=== PATIENT | female | born 1955 | race Caucasian/White ===

== ENCOUNTER 2020-03-16 06:03 | Emergency (ER) | payer OTHER, SELFPAY ==
[2020-03-16 06:15] VITALS: PULSE 15; RESP 16; TEMP 36.6; O2SAT 97; BMI 44.1
[2020-03-16 06:17] VITALS: PULSE 104
--- NOTE | 2020-03-16 06:17 | XR_ITS ---
EXAMINATION: XR CHEST CLINICAL INFORMATION: Chest pain COMPARISON: Chest 06/01/2013 TECHNIQUE: Frontal view of the chest was obtained. FINDINGS: The lungs are well-expanded and clear of acute process. The heart size and pulmonary vascularity is normal. No gross bony abnormality seen. XR/XR chest 1V IMPRESSION: Unremarkable chest exam.
--- NOTE | 2020-03-16 06:48 | ECG_ITS ---
Test Reason : CHEST PAIN Blood Pressure : / mmHG Vent. Rate : 103 BPM Atrial Rate : 103 BPM P-R Int : 188 ms QRS Dur : 104 ms QT Int : 354 ms P-R-T Axes : 106 -21 093 degrees QTc Int : 463 ms Sinus tachycardia with Premature ventricular complexes Moderate voltage criteria for LVH, may be normal variant Nonspecific T wave abnormality Abnormal ECG When compared with ECG of 15-JAN-2010 14:03, QRS slightly wider Referred By: Viola Sarah Electronically Signed By:ERROL ANDUJAR
[2020-03-16 06:49] LABS: MANUAL DIFF FLAG NO
[2020-03-16 06:51] LABS: Basophils Absolute Auto 0.1 X10*3/uL (0.0-0.2); Basophils Percent Auto 0.7 % (0-2); Eosinophils Absolute Auto 0.3 X10*3/uL (0.0-0.4); Eosinophils Percent Auto 3.1 % (0-4); Hematocrit 42.5 % (37-47); Hemoglobin 13.7 g/dl (12.0-16.0); Imm Gran Abs Auto 0.05 X10*3/uL (0.00-0.03); Imm Gran Pct Auto 0.5 % (0.0-0.4); Lymphocytes Absolute Auto 3.4 X10*3/uL (1.2-4.9); Lymphocytes Percent Auto 32.8 % (20-40); Mean Corpuscular HGB Conc 32.2 g/dl (31.0-35.0); Mean Corpuscular Hemoglobin 29.9 pg (27.0-33.0); Mean Corpuscular Volume 92.8 fL (80-98); Mean Platelet Volume 10.2 fL (9.4-12.3); Monocytes Absolute Auto 0.6 X10*3/uL (0.1-1.2); Monocytes Percent Auto 5.4 % (2-11); Neutrophils Absolute Auto 5.9 X10*3/uL (2.0-8.3); Neutrophils Percent Auto 57.5 % (45-73); Platelet Count 238 X10*3/uL (160-400); Red Blood Count 4.58 X10*6/uL (4.20-5.50); Red Cell Distribution Width 12.6 % (11.0-16.0); White Blood Count 10.2 X10*3/uL (4.8-10.8)
--- NOTE | 2020-03-16 06:55 | ED.SOB ---
HPI - SOB/Dyspnea General Chief Complaint: Dyspnea Stated Complaint: CHEST PAIN/SOB Time Seen by Provider: 03/16/20 06:17 History of Present Illness HPI Narrative: Patient is a 65-year-old female with a history of diabetes, hypertension, high cholesterol. Presented today with having chest pain that is constant since yesterday worse with walking. No fever no chills positive coughing history of asthma. Patient been compliant with her medications. Have not been checking her sugars. Patient feels generalized malaise weakness. Positive leg swelling but this is chronic. No nausea no vomiting no diaphoresis. The pain is mid chest. It is pressure-like. Patient's cough she claims she always had from her asthma. No recent travel. No history of exposure. Related Data Home Medications Medication Instructions Recorded Confirmed glipizide 1 tab PO BID 03/16/20 03/16/20 lisinopril-hydrochlorothiazide 1 tab PO QAM 03/16/20 03/16/20 Previous Rx's Medication Instructions Recorded prednisone 40 mg PO DAILY #10 tab 03/16/20 Allergies Allergy/AdvReac Type Severity Reaction Status Date / Time red dye [Red Dye] Allergy Severe HIVES,THROAT Verified 03/16/20 06:25 CLOSES FROM RED FOOD DYE Review of Systems Review of Systems: Constitutional: No Weight loss, No Fever, No Chills, No Night Sweats, No Fatigue, No Malaise ENT/Mouth: No Hearing loss, No Ear Pain, No Nasal Congestion, No Sinus Pain, No Hoarseness, No sore throat, No Rhinorrhea, No Swallowing Difficulty Eyes: No Eye Pain, No Swelling, No Redness, No Foreign Body, No Discharge, No Vision Changes Cardiovascular: Positive Chest Pain, positive SOB, No Dyspnea on Exertion, positive Orthopnea, positive Edema, No Palpitations Respiratory: No Cough, No Sputum, No Wheezing, No Smoke Exposure, No Dyspnea Gastrointestinal: No Nausea, No Vomiting, No Diarrhea, No Constipation, No abdominal Pain, No Hematochezia, No Melena Genitourinary: no irregular bleeding, No Dysuria, No Urinary Frequency, No Hematuria, No Urinary Incontinence, No Urgency, No Flank Pain, No Urinary Flow Changes, No Hesitancy Musculoskeletal: No joint pain, No Myalgias, No Joint Swelling Skin: No Skin Lesions, No rash Neuro: No Weakness, No Numbness, No Paresthesias, No Loss of Consciousness, No Dizziness, No Headache Psych: No Anxiety/Panic, No Depression, No SI/HI/AH/VH, No Social Issues, Heme/Lymph: No Bruising, No Bleeding,No Lymphadenopathy Endocrine: No Polyuria, No Polydipsia, No Temperature Intolerance [facility] Past Medical History Attestation statement: The following information was validated with the patient. Medical History Asthma Diabetes Hypertension Irritable bowel syndrome (IBS) Social History Social History Smoking Status: Never smoker Use of substances other than those prescribed or required for medical reasons: No Advance Directives: No Physical Exam Vital Signs: Vital Signs: Last Vital Signs Temp 98 F 03/16/20 11:49 Pulse 82 03/16/20 11:49 Resp 14 03/16/20 11:49 BP 149/83 H 03/16/20 11:49 Pulse Ox 100 03/16/20 11:49 Body Mass Index 44.1 Appearance: Alert. Oriented X3. No acute distress. Eyes: Pupils equal, round and reactive to light. ENT: Pharynx normal. Neck: Normal inspection. Neck supple. No lymph nodes noted. No crepitus CVS: Normal heart rate and rhythm. Pulses normal. Normal S1 and S2 Respiratory: Decreased breath sounds bilaterally No rales, minimal wheezing Abdomen: Soft and nontender. No rigidity. No distention. good BS x4 Skin: Skin warm and dry. Normal skin color. Normal skin turgor. Extremities: 3+ pitting edema. Neurovascular intact to all extremities. No Lacerations. No Rash Neuro: Oriented X 3. No motor deficit. No sensory deficit. Moving all extermities. No slurred speech MDM - SOB/Dyspnea Lab Data Result diagrams: 03/16/20 06:41 03/16/20 06:41 Labs: Lab Results 03/16/20 03/16/20 03/16/20 Range/Units 06:41 06:41 06:41 WBC 10.2 (4.8-10.8) X10*3/uL RBC 4.58 (4.20-5.50) X10*6/uL Hgb 13.7 (12.0-16.0) g/dl Hct 42.5 (37-47) % MCV 92.8 (80-98) fL MCH 29.9 (27.0-33.0) pg MCHC 32.2 (31.0-35.0) g/dl RDW 12.6 (11.0-16.0) % Plt Count 238 (160-400) X10*3/uL MPV 10.2 (9.4-12.3) fL Immature Gran % (Auto) 0.5 H (0.0-0.4) % Neut % (Auto) 57.5 (45-73) % Lymph % (Auto) 32.8 (20-40) % [place] % (Auto) 5.4 (2-11) % Eos % (Auto) 3.1 (0-4) % Baso % (Auto) 0.7 (0-2) % Lymph # (Auto) 3.4 (1.2-4.9) X10*3/uL [place] # (Auto) 0.6 (0.1-1.2) X10*3/uL Eos # (Auto) 0.3 (0.0-0.4) X10*3/uL Baso # (Auto) 0.1 (0.0-0.2) X10*3/uL Abs Immat Gran (auto) 0.05 H (0.00-0.03) X10*3/uL Absolute Neuts (auto) 5.9 (2.0-8.3) X10*3/uL Absolute Nucleated RBC 0.000 (0.0-0.012) X10*3/uL Nucleated RBC % (auto) 0.0 (0.0-0.2) /100WBC Sodium 134 L (135-145) mmol/L Potassium 4.2 (3.3-5.1) mmol/l Chloride 98 (96-108) mmol/L Carbon Dioxide 22 (22-29) mmol/L Anion Gap 18 (12-20) BUN 21 H (9-16) mg/dL Creatinine 0.96 (0.5-1.4) mg/dL Estim Creat Clear Calc 76.8 Estimated GFR 59 Random Glucose 294 H (60-115) mg/dL Calcium 8.9 (8.4-10.2) mg/dL Total Bilirubin 0.5 (0.0-1.0) mg/dL AST 14 (5-31) U/L ALT 17 (0-31) U/L Alkaline Phosphatase 76 (39-117) U/L Troponin I High Sens 19.7 H (<3.5-17.0) ng/L B-Natriuretic Peptide 136 H (<100) pg/mL Total Protein 6.9 (6.5-8.0) g/dL Albumin 4.0 (3.5-5.0) g/dL Urine Color Urine Appearance Urine pH (5.0-8.0) Ur Specific [place] (1.005-1.025) Urine Protein (NEG-TRACE) MG/DL Urine Glucose (UA) (NEG) MG/DL Urine Ketones (NEG) MG/DL Urine Blood (NEG) Urine Nitrite (NEG) Ur Leukocyte Esterase (NEG) Urine RBC (0) /HPF Urine WBC (0-4) /HPF Urine WBC Clumps Ur Squamous Epith Cells /LPF Urine Bacteria /LPF Urine Mucus /LPF Coronavirus (PCR) (Negative) Influenza Type A (PCR) (Negative) Influenza Type B (PCR) (Negative) RSV RNA Qual (PCR) (Negative) 03/16/20 03/16/20 03/16/20 Range/Units 07:02 08:03 10:09 WBC (4.8-10.8) X10*3/uL RBC (4.20-5.50) X10*6/uL Hgb (12.0-16.0) g/dl Hct (37-47) % MCV (80-98) fL MCH (27.0-33.0) pg MCHC (31.0-35.0) g/dl RDW (11.0-16.0) % Plt Count (160-400) X10*3/uL MPV (9.4-12.3) fL Immature Gran % (Auto) (0.0-0.4) % Neut % (Auto) (45-73) % Lymph % (Auto) (20-40) % [place] % (Auto) (2-11) % Eos % (Auto) (0-4) % Baso % (Auto) (0-2) % Lymph # (Auto) (1.2-4.9) X10*3/uL [place] # (Auto) (0.1-1.2) X10*3/uL Eos # (Auto) (0.0-0.4) X10*3/uL Baso # (Auto) (0.0-0.2) X10*3/uL Abs Immat Gran (auto) (0.00-0.03) X10*3/uL Absolute Neuts (auto) (2.0-8.3) X10*3/uL Absolute Nucleated RBC (0.0-0.012) X10*3/uL Nucleated RBC % (auto) (0.0-0.2) /100WBC Sodium (135-145) mmol/L Potassium (3.3-5.1) mmol/l Chloride (96-108) mmol/L Carbon Dioxide (22-29) mmol/L Anion Gap (12-20) BUN (9-16) mg/dL Creatinine (0.5-1.4) mg/dL Estim Creat Clear Calc Estimated GFR Random Glucose (60-115) mg/dL Calcium (8.4-10.2) mg/dL Total Bilirubin (0.0-1.0) mg/dL AST (5-31) U/L ALT (0-31) U/L Alkaline Phosphatase (39-117) U/L Troponin I High Sens 16.3 (<3.5-17.0) ng/L B-Natriuretic Peptide (<100) pg/mL Total Protein (6.5-8.0) g/dL Albumin (3.5-5.0) g/dL Urine Color YELLOW Urine Appearance CLEAR Urine pH 5.5 (5.0-8.0) Ur Specific [place] 1.020 (1.005-1.025) Urine Protein NEG (NEG-TRACE) MG/DL Urine Glucose (UA) >=1000 H (NEG) MG/DL Urine Ketones 15 (NEG) MG/DL Urine Blood NEG (NEG) Urine Nitrite POS H (NEG) Ur Leukocyte Esterase NEG (NEG) Urine RBC 0 (0) /HPF Urine WBC 10-14 H (0-4) /HPF Urine WBC Clumps NOTED Ur Squamous Epith Cells 1+ /LPF Urine Bacteria 2+ /LPF Urine Mucus 1+ /LPF Coronavirus (PCR) NEGATIVE (Negative) Influenza Type A (PCR) NEGATIVE (Negative) Influenza Type B (PCR) NEGATIVE (Negative) RSV RNA Qual (PCR) NEGATIVE (Negative) Discharge Plan Discharge Clinical Impression: Asthma with exacerbation Patient Disposition: Home, Self-Care Instructions: Asthma (ED) Prescriptions: New prednisone 20 mg tablet 40 mg PO DAILY Qty: 10 RF: 0 No Action lisinopril-hydrochlorothiazide 20-25 mg tablet 1 tab PO QAM RF: 0 glipizide 5 mg tablet 1 tab PO BID RF: 0 Referrals: Lily Menjivar MD [Primary Care Provider] - 2 days
[2020-03-16 07:19] LABS: Alanine Aminotransferase 17 U/L (0-31); Alkaline Phosphatase 76 U/L (39-117); Anion Gap 18 (12-20); Aspartate Amino Transferase 14 U/L (5-31); Bilirubin Total 0.5 mg/dL (0.0-1.0); Blood Urea Nitrogen 21 mg/dL (9-16); Calcium 8.9 mg/dL (8.4-10.2); Carbon Dioxide 22 mmol/L (22-29); Chloride 98 mmol/L (96-108); Creatinine Clr Calc Pharmacy 76.8; Estimated Glomerular Filt Rate 59; Glucose Random 294 mg/dL (60-115); Potassium 4.2 mmol/l (3.3-5.1); Sodium 134 mmol/L (135-145); Total Protein 6.9 g/dL (6.5-8.0)
[2020-03-16 07:23] LABS: B Type Natriuretic Peptide 136 pg/mL (<100); Troponin-I High Sensitivity 19.7 ng/L (<3.5-17.0)
[2020-03-16 07:59] VITALS: BP 185/93; PULSE 102; RESP 19; O2SAT 100
[2020-03-16 08:11] LABS: Glucose Urine UA >=1000 MG/DL (NEG); Leukocyte Esterase Urine NEG (NEG); Nitrite Urine POS (NEG); PH 5.5 (5.0-8.0); Urine Blood NEG (NEG); Urine Ketones 15 MG/DL (NEG); Urine Protein NEG (NEG-TRACE)
[2020-03-16 08:12] LABS: Appearance Urine CLEAR; Color Urine YELLOW
[2020-03-16 08:25] LABS: Influenza A PCR NEGATIVE (Negative); Influenza B PCR NEGATIVE (Negative); Resp Syncy Virus RNA Qual PCR NEGATIVE (Negative); SARS COV2 PCR INHOUSE NEGATIVE (Negative)
[2020-03-16 08:27] LABS: Bacteria Urine 2+ /LPF; Mucus Urine 1+ /LPF; RBC Urine 0 /HPF (0); Squamous Epithelial Cell Urine 1+ /LPF
[2020-03-16 08:28] LABS: WBC Clumps Urine NOTED
[2020-03-16 09:47] VITALS: BP 192/90; PULSE 83; RESP 16; TEMP 36.6; O2SAT 99
[2020-03-16 10:52] LABS: Troponin-I High Sensitivity 16.3 ng/L (<3.5-17.0)
[2020-03-16 11:49] VITALS: BP 149/83; PULSE 82; RESP 14; TEMP 36.6; O2SAT 100
[2020-03-16] MEDS: predniSONE 20 MG TABLET 40 MG PO (12:15)
== END 2020-03-16 12:37 | disposition home or self-care (01) ==
PROVIDERS: Student in an Organized Health Care Education/Training Program; Emergency Provider Emergency Medicine Emergency Medical Services; PCP Internal Medicine
DX: J45.901 Unspecified asthma with (acute) exacerbation (principal); I10 Essential (primary) hypertension; Z20.828 Contact with and (suspected) exposure to other viral communicable diseases; Z79.899 Other long term (current) drug therapy
CPT/HCPCS: 0241U; 36415; 71045; 80053; 81001; 83880; 84484; 85025; 87086; 87088; 87186; 93005; 99284

== ENCOUNTER 2020-08-01 12:44 | Outpatient (REF) | payer OTHER, SELFPAY ==
--- NOTE | ~2020-08-01 | XR_ITS ---
EXAMINATION: XR KNEE, RIGHT CLINICAL INFORMATION: Right knee pain. COMPARISON: None TECHNIQUE: Three views of the right knee. FINDINGS: There is no evidence of acute fracture or dislocation of the right knee. No right knee effusion is seen. Right knee joint spaces are maintained. There is a region of increased density seen about the proximal fibula which may relate to medullary infarct or possible enchondroma. No bony destruction or periosteal new bone formation is appreciated. XR/XR knee RT 3V IMPRESSION: No significant right knee abnormality appreciated.
== END 2020-08-01 12:45 | disposition home or self-care (01) ==
LOC: HO.HMGCX 12:44
PROVIDERS: PCP Internal Medicine; Visit Provider Internal Medicine
DX: M17.10 Unilateral primary osteoarthritis, unspecified knee (principal)
CPT/HCPCS: 73562

== ENCOUNTER 2020-08-25 12:00 | Outpatient (REF) | payer OTHER, SELFPAY ==
[2020-08-25 14:35] LABS: MANUAL DIFF FLAG NO
[2020-08-25 14:49] LABS: Basophils Absolute Auto 0.1 X10*3/uL (0.0-0.2); Basophils Percent Auto 0.8 % (0-2); Eosinophils Absolute Auto 0.4 X10*3/uL (0.0-0.4); Eosinophils Percent Auto 4.7 % (0-4); Hematocrit 41.5 % (37-47); Hemoglobin 13.2 g/dl (12.0-16.0); Imm Gran Abs Auto 0.01 X10*3/uL (0.00-0.03); Imm Gran Pct Auto 0.1 % (0.0-0.4); Lymphocytes Absolute Auto 2.9 X10*3/uL (1.2-4.9); Lymphocytes Percent Auto 34.5 % (20-40); Mean Corpuscular HGB Conc 31.8 g/dl (31.0-35.0); Mean Corpuscular Hemoglobin 29.1 pg (27.0-33.0); Mean Corpuscular Volume 91.4 fL (80-98); Mean Platelet Volume 10.5 fL (9.4-12.3); Monocytes Absolute Auto 0.4 X10*3/uL (0.1-1.2); Monocytes Percent Auto 4.9 % (2-11); Neutrophils Absolute Auto 4.6 X10*3/uL (2.0-8.3); Platelet Count 264 X10*3/uL (160-400); Red Blood Count 4.54 X10*6/uL (4.20-5.50); Red Cell Distribution Width 12.8 % (11.0-16.0); White Blood Count 8.3 X10*3/uL (4.8-10.8)
[2020-08-25 15:02] LABS: Alanine Aminotransferase 9 U/L (0-31); Albumin Level 3.7 g/dL (3.5-5.0); Alkaline Phosphatase 70 U/L (39-117); Anion Gap 14 (12-20); Aspartate Amino Transferase 12 U/L (5-31); Bilirubin Total 0.5 mg/dL (0.0-1.0); Blood Urea Nitrogen 22 mg/dL (9-16); Calcium 8.7 mg/dL (8.4-10.2); Carbon Dioxide 25 mmol/L (22-29); Chloride 100 mmol/L (96-108); Cholesterol 219 mg/dL; Estimated Glomerular Filt Rate 59; Glucose Fasting 295 mg/dL (60-99); HDL Cholesterol 42 mg/dL; Potassium 4.4 mmol/L (3.3-5.1); Sodium 135 mmol/L (135-145); Total Protein 6.6 g/dL (6.5-8.0); Triglycerides 439 mg/dL
[2020-08-25 15:05] LABS: Estimated Average Glucose 289 mg/dL; Hemoglobin A1c % 11.7 %
[2020-08-25 15:25] LABS: TSH reflex Free T4 1.48 uIU/mL (0.32-4.0); Vitamin D 25-OH Total 13.7 ng/mL (>30)
[2020-08-25 15:30] LABS: Creatinine Urine 102.19 mg/dL; Microalbum/Creatinine Ratio Ur 17.6 ug/mg cr
== END 2020-08-25 12:01 | disposition home or self-care (01) ==
LOC: HO.HMGCLDS 12:00
PROVIDERS: PCP Internal Medicine; Visit Provider Internal Medicine
DX: E11.65 Type 2 diabetes mellitus with hyperglycemia (principal); E66.01 Morbid (severe) obesity due to excess calories; I10 Essential (primary) hypertension
CPT/HCPCS: 36415; 80053; 80061; 82043; 82306; 83036; 84443; 85025

== ENCOUNTER → 2020-09-15 10:04 | Outpatient (BNVA) | payer OTHER, SELFPAY | PROVIDERS: PCP Internal Medicine; Visit Provider Nurse Practitioner Gerontology | DX: E11.65 Type 2 diabetes mellitus with hyperglycemia (principal); E11.49 Type 2 diabetes mellitus with other diabetic neurological complication; E78.2 Mixed hyperlipidemia; E66.09 Other obesity due to excess calories; E55.9 Vitamin D deficiency, unspecified; I10 Essential (primary) hypertension | CPT/HCPCS: 82947; 99212 ==

== ENCOUNTER → 2020-11-17 13:06 | Outpatient (BNVA) | payer OTHER, SELFPAY | PROVIDERS: PCP Internal Medicine; Visit Provider Nurse Practitioner Gerontology | DX: E11.65 Type 2 diabetes mellitus with hyperglycemia (principal); E11.40 Type 2 diabetes mellitus with diabetic neuropathy, unspecified; E11.49 Type 2 diabetes mellitus with other diabetic neurological complication; I10 Essential (primary) hypertension; E78.5 Hyperlipidemia, unspecified; E78.2 Mixed hyperlipidemia; E55.9 Vitamin D deficiency, unspecified; K58.0 Irritable bowel syndrome with diarrhea; E66.01 Morbid (severe) obesity due to excess calories; Z68.39 Body mass index [BMI] 39.0-39.9, adult; Z91.048 Other nonmedicinal substance allergy status; Z79.4 Long term (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 of insulin; Z79.899 Other long term (current) drug therapy | CPT/HCPCS: 82947; 99212 ==

== ENCOUNTER 2020-12-20 09:29 | Outpatient (REF) | payer OTHER, SELFPAY ==
[2020-12-20 11:46] LABS: Alanine Aminotransferase 12 U/L (0-31); Anion Gap 17 (12-20); Aspartate Amino Transferase 10 U/L (5-31); Blood Urea Nitrogen 35 mg/dL (9-16); Calcium 9.7 mg/dL (8.4-10.2); Carbon Dioxide 25 mmol/L (22-29); Chloride 98 mmol/L (96-108); Cholesterol 265 mg/dL; Estimated Glomerular Filt Rate 47; Glucose Fasting 233 mg/dL (60-99); HDL Cholesterol 42 mg/dL; Sodium 136 mmol/L (135-145); Triglycerides 488 mg/dL
[2020-12-20 12:09] LABS: Vitamin D 25-OH Total 35.4 ng/mL (>30)
[2020-12-20 12:22] LABS: Estimated Average Glucose 275 mg/dL; Hemoglobin A1c % 11.2 %
== END 2020-12-20 09:30 | disposition home or self-care (01) ==
LOC: HO.HMGCLDS 09:29
PROVIDERS: PCP Internal Medicine; Visit Provider Internal Medicine
DX: E11.49 Type 2 diabetes mellitus with other diabetic neurological complication (principal); E11.65 Type 2 diabetes mellitus with hyperglycemia; E66.01 Morbid (severe) obesity due to excess calories; E78.2 Mixed hyperlipidemia; I10 Essential (primary) hypertension; E55.9 Vitamin D deficiency, unspecified
CPT/HCPCS: 36415; 80048; 80061; 82306; 83036; 84450; 84460

== ENCOUNTER → 2021-03-30 13:04 | Outpatient (BNVA) | payer OTHER, SELFPAY | PROVIDERS: PCP Internal Medicine; Visit Provider Nurse Practitioner Gerontology | DX: E11.65 Type 2 diabetes mellitus with hyperglycemia (principal); E11.40 Type 2 diabetes mellitus with diabetic neuropathy, unspecified; I10 Essential (primary) hypertension; E78.2 Mixed hyperlipidemia; E66.09 Other obesity due to excess calories; Z68.41 Body mass index [BMI] 40.0-44.9, adult; E55.9 Vitamin D deficiency, unspecified; Z79.4 Long term (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 of insulin | CPT/HCPCS: 82947; 83036 ==

== ENCOUNTER 2021-08-08 14:49 | Outpatient (REF) | payer OTHER, SELFPAY ==
[2021-08-10 11:07] LABS: BV Int Neg Control Negative (Negative); BV Int Pos Control Positive (Positive)
[2021-08-16 06:47] LABS: HPV mRNA E6/E7 rflx Not Detected (Not Detected)
== END 2021-08-08 14:50 | disposition home or self-care (01) ==
LOC: HO.LAB 14:49
PROVIDERS: PCP Internal Medicine; Visit Provider Advanced Practice Midwife
DX: Z12.4 Encounter for screening for malignant neoplasm of cervix (principal); Z11.51 Encounter for screening for human papillomavirus (HPV); N95.0 Postmenopausal bleeding
CPT/HCPCS: 87480; 87510; 87624; 87660; 88142

== ENCOUNTER 2021-08-21 14:59 | Outpatient (REF) | payer OTHER, SELFPAY ==
--- NOTE | ~2021-08-21 | US_ITS ---
EXAMINATION: US PELVIS CLINICAL INFORMATION: Postmenopausal bleeding COMPARISON: None TECHNIQUE: Ultrasound of the pelvis is performed using both transabdominal and transvaginal transducers along with Doppler. Transvaginal imaging is performed due to inadequate visualization transabdominally. FINDINGS: The uterus is anteverted and measures 8.8 x 4.4 x 6.1 cm in dimension. No focal uterine lesion is seen. The endometrium appears thickened measuring 2.5 cm. The endometrium is slightly heterogeneous. There is some vascularity. There are nabothian cysts in the cervix. The ovaries are not seen. There is no adnexal mass. There is no fluid in the pelvis. US/US pelvic and transvaginal IMPRESSION: Abnormally thickened slightly heterogeneous endometrium measuring 2.5 cm. Tissue sampling recommended.
== END 2021-08-21 15:00 | disposition home or self-care (01) ==
LOC: HO.HMGCX 14:59
PROVIDERS: PCP Internal Medicine; Visit Provider Advanced Practice Midwife
DX: N95.0 Postmenopausal bleeding (principal)
CPT/HCPCS: 76830; 76856

== ENCOUNTER 2021-09-04 08:50 | Outpatient (REF) | payer OTHER, SELFPAY | END 2021-09-04 08:51 | disposition home or self-care (01) | LOC: HO.LAB 08:50 | PROVIDERS: Visit Provider Advanced Practice Midwife | DX: N95.0 Postmenopausal bleeding (principal) | CPT/HCPCS: 36415; 58100; 81288; 88305; 88341; 88342; 88360 ==

== ENCOUNTER 2021-09-21 13:06 | Outpatient (REF) | payer OTHER, SELFPAY ==
[2021-09-21 14:31] LABS: Alanine Aminotransferase 13 U/L (0-31); Albumin Level 4.1 g/dL (3.5-5.0); Alkaline Phosphatase 77 U/L (39-117); Anion Gap 14 (12-20); Aspartate Amino Transferase 10 U/L (5-31); Bilirubin Total 0.5 mg/dL (0.0-1.0); Blood Urea Nitrogen 41 mg/dL (9-16); Calcium 9.3 mg/dL (8.4-10.2); Carbon Dioxide 27 mmol/L (22-29); Chloride 97 mmol/L (96-108); Cholesterol 183 mg/dL; Estimated Glomerular Filt Rate 50; Glucose Fasting 226 mg/dL (60-99); HDL Cholesterol 41 mg/dL; LDL Cholesterol Calculated 74 mg/dl; Sodium 134 mmol/L (135-145); Total Protein 7.2 g/dL (6.5-8.0); Triglycerides 340 mg/dL
[2021-09-21 14:51] LABS: Vitamin D 25-OH Total 23.7 ng/mL (>30)
[2021-09-21 16:52] LABS: Creatinine Urine 56.63 mg/dL; Microalbum/Creatinine Ratio Ur 19.4 ug/mg cr
== END 2021-09-21 13:07 | disposition home or self-care (01) ==
LOC: HO.HMGCLDS 13:06
PROVIDERS: PCP Internal Medicine; Visit Provider Nurse Practitioner Gerontology
DX: E11.65 Type 2 diabetes mellitus with hyperglycemia (principal); E55.9 Vitamin D deficiency, unspecified; Z79.4 Long term (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 of insulin
CPT/HCPCS: 36415; 80053; 80061; 82043; 82306

== ENCOUNTER → 2021-09-27 13:13 | Outpatient (BNVA) | payer OTHER, SELFPAY | PROVIDERS: PCP Internal Medicine; Visit Provider Internal Medicine | DX: E11.65 Type 2 diabetes mellitus with hyperglycemia (principal); E78.5 Hyperlipidemia, unspecified; I10 Essential (primary) hypertension; E55.9 Vitamin D deficiency, unspecified; Z79.4 Long term (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 of insulin | CPT/HCPCS: 82947; 83036 ==

== ENCOUNTER → 2021-10-03 14:29 | Outpatient (BNVA) | payer OTHER, SELFPAY | PROVIDERS: PCP Internal Medicine; Visit Provider Internal Medicine Cardiovascular Disease | DX: Z01.810 Encounter for preprocedural cardiovascular examination (principal); R06.09 Other forms of dyspnea | CPT/HCPCS: 93005 ==

== ENCOUNTER → 2021-10-11 08:10 | Outpatient (REF) | payer OTHER, SELFPAY ==
--- NOTE | ~2021-10-11 | NM_ITS ---
Myocardial perfusion study Indication: Shortness of breath evaluate for myocardial ischemia Technique: The patient was brought in for a Lexiscan perfusion study on 10/11/2021. Patient performed low-level exercise and was injected 0.4 mg of Lexiscan intravenously. Within a minute of injection, 40 mCi of sestamibi was given intravenously. Images were obtained using the SPECT gamma camera interlaced with the gating device. Images were obtained in supine position. Resting perfusion study was performed on 10/12/2021. Patient was administered 40 mCi of sestamibi intravenously at rest. Images were then obtained in supine position. Images obtained with and without CT attenuation. Total DLP 175 mGy-cm. Images were processed with the software and compared side to side in short axis, horizontal long axis and vertical long axis views. Findings: The stress perfusion study showed non attenuated images show moderately reduced uptake in the apex as well as moderately reduced uptake in the inferoapical and moderately reduced uptake in the basal inferolateral wall of the LV myocardium. Remainder of the LV myocardium is normally perfused. Attenuated corrected images show moderately reduced uptake in the apex and mildly reduced uptake in the inferoapical and mildly reduced uptake in the septum as well as moderately to severely reduced uptake in the basal inferolateral wall of the LV myocardium.. The gated study shows reduced LV systolic function with calculated LVEF of 30%. LV cavity is mildly dilated size. The gated study shows diffusely reduced wall thickening and contraction of segments. Resting study shows non attenuated images show mildly reduced uptake in the apex, moderately reduced uptake in the basal inferolateral, mildly reduced uptake in the inferoapical, moderate to severely reduced uptake in the basal and mid inferior wall of the LV myocardium. Attenuated corrected images show mildly reduced uptake in the apex and mildly to moderately reduced uptake in the septum and mildly reduced uptake in the basal inferolateral wall of the LV myocardium. Gating at rest reveals diffuse wall motion with ejection fraction at 35%. The findings are consistent with equivocal finding with possible mild apical and basal inferolateral ischemia. NM/NM jaden perf SPECT rest & str Impression: 1. Myocardial perfusion imaging study shows equivocal for mild apical and basal inferolateral ischemia 2. Gated LVEF is 30% with stress and 35% with rest. Consider echocardiogram 3. Transient ischemic dilatation not present but LV cavity is dilated EKG is nondiagnostic for ischemia
--- NOTE | 2021-10-11 08:13 | CA_ITS ---
Acquisition Time: 2021-10-11 08:24:20 Total Exercise Time: 00:02:00 Test Indications: Dyspnea Medications: AMLODIPINE ATORVASTATTIN TRULICITY GABAPENTIN LISINOPRIL/HCTZ Protocol: LEXISCAN Max HR: 117 BPM 75% of Pred: 155 BPM Max BP: 154/088 mmHG Max Work Load: 1.0 METS Pharmacological nuclear stress test with Lexiscan injection, while sitting and kicking her legs, with report of dizziness, without anginal symptoms, with isolated PVC, with normotensive response to injection, with nondiagnostic EKG for ischemia. In recovery she reported ongoing dizziness that was treated with Aminophylline 75mg IVP to reverse Lexiscan with gradual improvement in symptom. Nuclear images pending. Test reviewed with Dr Dimas Referred By: Cesar Storey Overread By: GERTRUDIS HUITRON
== END ==
LOC: HO.CARD 08:10
PROVIDERS: PCP Internal Medicine; Visit Provider Internal Medicine Cardiovascular Disease
DX: R06.09 Other forms of dyspnea (principal)
CPT/HCPCS: 78452; 93017; A9500; J0280; J2785

== ENCOUNTER → 2021-10-15 10:43 | Outpatient (REF) | payer OTHER, SELFPAY ==
--- NOTE | 2021-10-15 10:46 | CA_ITS ---
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 Moderately dilated left ventricle with moderately reduced LV systolic function with LVEF of 35-40% with underlying regional wall motion abnormality and grade 2 diastolic dysfunction 2. Moderately dilated left atrium 3. Mild aortic stenosis 4. RV systolic pressure could not be calculated on this study but right atrial pressure appear to be mildly elevated 5. No gross pericardial effusion Findings Procedure Information Contrast agent, definity, is being given per protocol without apparent complications. Left Ventricle Moderately increased left ventricular cavity size. There is normal left ventricular wall thickness. The left ventricular systolic function is moderately decreased. The visually estimated ejection fraction is between 35 40%. There is evidence of regional wall motion abnormalities. Spectral Doppler is indicative of a pseudonormal filling pattern. E/E prime ratio is >15, consistent with elevated filling pressures. Evidence suggests grade II (moderate) diastolic dysfunction. Wall Motion Rest Echo Findings The mid inferior segment is hypokinetic. The inferoseptal wall, the basal inferior, and apical septum segments are akinetic. All other scored wall segments showed normal motion. Right Ventricle Normal right ventricular cavity size and systolic function. Atria The left atrium is moderately dilated. There is lipomatous hypertrophy of the interatrial septum. There is no evidence of interatrial shunt. The right atrium was not well visualized. Aortic Valve The aortic valve was not well visualized. There is mild calcification of the aortic valve. There is mild aortic valve stenosis. The peak aortic gradient is 16 mmHg.The mean gradient is 9 mmHg. Mitral Valve Likely normal mitral valve structure and function. There is trace mitral valve regurgitation. There is no mitral valve stenosis. Pulmonic Valve The pulmonic valve was not well visualized. Tricuspid Valve The tricuspid valve was not well visualized. Tricuspid regurgitation envelope is inadequate for calculation of right ventricular systolic pressure. Mildly elevated right atrial pressure. Great Vessels The aorta was not well visualized. The pulmonary artery was not well visualized. Venous The inferior vena cava is mildly dilated and collapses less than 50% with inspiration. Pericardium/Pleural The pericardium was not well visualized. Prior Study Comparison No prior study available for comparison. Measurements 2D Linear Measurements IVSd: 1.04 0.6-0.9/0.6-1.0 cm LVIDd: 6.17 3.9-5.3/4.2-5.9 cm LVIDd Index: 2.88 2.4-3.2/2.2-3.1 cm/m2 LVIDs: 5.40 2.0-3.6 cm LVPWd: 0.94 0.7-1.1 cm LA Diam: 4.10 2.7-3.8/3.0-4.0 cm LAIDs Index: 1.92 1.5-2.3 cm/m2 LV Mass: 317.68 67-162/88-224 g LV Mass Index: 148.45 43-95/49-115 g/m2 LVOT Diam: 2.00 3.0+(-)1.3 cm 2D Systolic Function EF 4C: 35.00 >55% EF 2C: 37.60 >55% EF BiP: 37.50 >55% Mitral Valve MV Pk E: 1.07 MV PK A: 0.70 MV Decel Time: 125.00 E/A: 1.50 E'Lateral: 8.49 E'Medial: 4.57 E/E' Med: 23.40 E/E' Lat: 12.60 PHT: 37.00 MVA PHT: 5.95 Decel Hendricks: 8.50 Aortic Valve AoV Pk Héctor: 2.00 AoV Mn Héctor: 1.44 AoV VTI: 0.48 AoV Pk Grad: 16.00 Aov Mn Grad: 9.00 SANDEEP Cont.VTI: 1.52 LVOT LVOT Pk Héctor: 0.97 LVOT Mn Héctor: 0.65 LVOT VTI: 0.22 LVOT Pk Grad: 4.00 LVOT Mn Grad: 2.00 LVOT Diam: 2.00 LVOT Area: 3.14 Diastolic Function MV Pk E: 1.07 MV Pk A: 0.70 E/A: 1.50 E'Medial: 4.57 E/E' Med: 23.40 E' Laterial: 8.49 E/E' Lat: 12.60 Right Ventricle TAPSE (mm): 23.40 TVS' Héctor: 12.20 Tricuspid Valve RA Press: 8.00 Great Vessels Aorta Sinus of Valsalva: 3.18 2.0-3.5 cm Ao Asc: 3.60 2.1-3.4 cm Updated in Other Vendor System with Status of Final Diego Vladez MD electronically signed on 10/15/2021 12:24:56 PM with status of Final
== END ==
LOC: HO.CARD 10:43
PROVIDERS: Visit Provider Nurse Practitioner Family
DX: R06.09 Other forms of dyspnea (principal); I44.7 Left bundle-branch block, unspecified
CPT/HCPCS: 93306; Q9957

== ENCOUNTER → 2021-10-25 08:42 | Outpatient (BNVA) | payer OTHER, SELFPAY | PROVIDERS: PCP Internal Medicine; Visit Provider Internal Medicine Endocrinology, Diabetes & Metabolism | DX: E11.65 Type 2 diabetes mellitus with hyperglycemia (principal); Z79.4 Long term (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 of insulin | CPT/HCPCS: 82947 ==

== ENCOUNTER 2021-11-02 12:14 | Outpatient (REF) | payer OTHER, SELFPAY ==
[2021-11-02 13:54] LABS: MANUAL DIFF FLAG NO
[2021-11-02 14:01] LABS: Basophils Absolute Auto 0.1 X10*3/uL (0.0-0.2); Eosinophils Absolute Auto 0.4 X10*3/uL (0.0-0.4); Eosinophils Percent Auto 4.2 % (0-4); Hematocrit 45.3 % (37.0-47.0); Hemoglobin 14.5 g/dl (12.0-16.0); Imm Gran Abs Auto 0.03 X10*3/uL (0.00-0.03); Imm Gran Pct Auto 0.3 % (0.0-0.4); Lymphocytes Absolute Auto 3.6 X10*3/uL (1.2-4.9); Lymphocytes Percent Auto 34.3 % (20-40); Mean Corpuscular Hemoglobin 28.8 pg (27.0-33.0); Mean Corpuscular Volume 90.1 fL (80.0-98.0); Mean Platelet Volume 10.1 fL (9.4-12.3); Monocytes Absolute Auto 0.6 X10*3/uL (0.1-1.2); Monocytes Percent Auto 5.8 % (2-11); Neutrophils Absolute Auto 5.7 x10*3/uL (2.0-8.3); Neutrophils Percent Auto 54.4 % (45-73); Platelet Count 295 X10*3/uL (160-400); Red Blood Count 5.03 X10*6/uL (4.20-5.50); Red Cell Distribution Width 12.9 % (11.0-16.0); White Blood Count 10.5 X10*3/uL (4.8-10.8)
[2021-11-02 14:07] LABS: INTERNATIONAL NORM RATIO 0.9 (0.9-1.1); Prothrombin Time 10.5 SEC (10.0-13.1)
[2021-11-02 14:14] LABS: Anion Gap 15 (12-20); Blood Urea Nitrogen 38 mg/dL (9-16); Calcium 9.4 mg/dL (8.4-10.2); Carbon Dioxide 26 mmol/L (22-29); Chloride 100 mmol/L (96-108); Estimated Glomerular Filt Rate 46; Glucose Random 200 mg/dL (60-115); Potassium 4.2 mmol/L (3.3-5.1); Sodium 137 mmol/L (135-145)
== END 2021-11-02 12:15 | disposition home or self-care (01) ==
LOC: HO.HMGCLDS 12:14
PROVIDERS: PCP Internal Medicine; Visit Provider Nurse Practitioner Family
DX: I42.9 Cardiomyopathy, unspecified (principal); R93.1 Abnormal findings on diagnostic imaging of heart and coronary circulation
CPT/HCPCS: 36415; 80048; 85025; 85610

== ENCOUNTER → 2021-11-14 12:40 | Outpatient (BNVA) | payer OTHER, SELFPAY | PROVIDERS: PCP Internal Medicine; Visit Provider Dietitian, Registered | DX: E11.65 Type 2 diabetes mellitus with hyperglycemia (principal); Z79.4 Long term (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 of insulin; Z71.3 Dietary counseling and surveillance | CPT/HCPCS: 97802 ==

== ENCOUNTER → 2021-12-31 10:10 | Outpatient (BNVA) | payer OTHER, SELFPAY | PROVIDERS: PCP Internal Medicine; Visit Provider Dietitian, Registered | DX: E11.65 Type 2 diabetes mellitus with hyperglycemia (principal); Z79.4 Long term (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 of insulin | CPT/HCPCS: 97803 ==

== ENCOUNTER → 2022-02-06 12:57 | Outpatient (REF) | payer MEDICARE, SELFPAY ==
--- NOTE | 2022-02-06 13:10 | CA_ITS ---
Transthoracic Echocardiogram Patient (Last, First, Middle): July Dorantes J Gender: Female Date of : 1955 Age: 66 Procedure Date: 02/06/2022 Procedure Type: Transthoracic Echocardiogram Location: OP Height: 165.1 cm Weight: 106.6 kg BSA: 2.12 m2 Heart Rate: bpm BP: 140 / 76 mmHg Jira Developer: TO Referring MD: Cesar Storey MD Burn Crew Member: Cesar Storey MD Symptoms: I42.9 - Cardiomyopathy, unspecified Study Quality: Fair/Contrast Conclusions: - The left ventricular systolic function is moderately decreased. The visually estimated ejection fraction is between 35-40%. - The basal inferior, mid inferior, and basal inferolateral segments are akinetic. - There is mild calcification of the aortic valve. - There is mild mitral annular calcification. Findings Procedure Information Contrast agent, definity, is being given per protocol without apparent complications. Left Ventricle Normal left ventricular cavity size. There is normal left ventricular wall thickness. The left ventricular systolic function is moderately decreased. The visually estimated ejection fraction is between 35-40%. There is evidence of regional wall motion abnormalities. E/E prime ratio is >15, consistent with elevated filling pressures. Evidence suggests grade II (moderate) diastolic dysfunction. Wall Motion Rest Echo Findings The basal inferior, mid inferior, and basal inferolateral segments are akinetic. Right Ventricle Normal right ventricular cavity size and systolic function. Atria The left atrium is severely dilated. The right atrium is normal in size. Aortic Valve There is a normal trileaflet aortic valve. There is mild calcification of the aortic valve. There is no aortic valve stenosis. There is no aortic valve regurgitation. Mitral Valve There is mild mitral annular calcification. There is trace mitral valve regurgitation. There is no mitral valve stenosis. Pulmonic Valve The pulmonic valve is likely normal. Tricuspid Valve There is no tricuspid valve regurgitation. There is no evidence of pulmonary hypertension. Great Vessels The asc aorta is normal in size. Small plaque is seen in the sino tubular ridge. Venous The inferior vena cava is normal in size and collapses greater than 50% with inspiration. Pericardium/Pleural There is no evidence of pericardial effusion. Prior Study Comparison No significant change compared to prior study dated: 10/15/2021. Measurements 2D Linear Measurements IVSd: 1.00 0.6-0.9/0.6-1.0 cm LVIDd: 6.36 3.9-5.3/4.2-5.9 cm LVIDd Index: 3.00 2.4-3.2/2.2-3.1 cm/m2 LVIDs: 5.23 2.0-3.6 cm LVPWd: 0.99 0.7-1.1 cm LA Diam: 4.50 2.7-3.8/3.0-4.0 cm LAIDs Index: 2.12 1.5-2.3 cm/m2 LV Mass: 338.14 67-162/88-224 g LV Mass Index: 159.50 43-95/49-115 g/m2 LVOT Diam: 2.10 3.0+(-)1.3 cm 2D Systolic Function EF 4C: 43.00 >55% EF 2C: 44.70 >55% EF BiP: 44.30 >55% Mitral Valve MV VTI: 0.30 MV Pk Héctor: 1.18 MV Mn Héctor: 0.75 MV Pk Grad: 6.00 MV Mn Grad: 3.00 MV Pk E: 1.14 MV PK A: 0.59 MV Decel Time: 158.00 E/A: 1.90 E'Lateral: 6.74 E'Medial: 4.46 E/E' Med: 25.60 E/E' Lat: 16.90 PHT: 46.00 MVA PHT: 4.78 MVA Continuity: 2.26 Decel Door: 7.17 Aortic Valve AoV Pk Héctor: 2.02 AoV Mn Héctor: 1.43 AoV VTI: 0.44 AoV Pk Grad: 16.00 Aov Mn Grad: 9.00 SANDEEP Cont.VTI: 1.56 LVOT LVOT Pk Héctor: 0.88 LVOT Mn Héctor: 0.60 LVOT VTI: 0.20 LVOT Pk Grad: 3.00 LVOT Mn Grad: 2.00 LVOT Diam: 2.10 LVOT Area: 3.46 Diastolic Function MV Pk E: 1.14 MV Pk A: 0.59 E/A: 1.90 E'Medial: 4.46 E/E' Med: 25.60 E' Laterial: 6.74 E/E' Lat: 16.90 Right Ventricle TAPSE (mm): 21.70 TVS' Héctor: 10.40 Great Vessels Aorta Sinus of Valsalva: 3.10 2.0-3.[address] [place]: 2.15 1.7-3.4 cm Ao Asc: 3.40 2.1-3.4 cm Updated in Other Vendor System with Status of Final Maximus Dimas MD electronically signed on 02/09/2022 1:45:09 PM with status of Final
== END ==
LOC: HO.CARD 12:57
PROVIDERS: PCP Internal Medicine; Visit Provider Internal Medicine Cardiovascular Disease
DX: I42.9 Cardiomyopathy, unspecified (principal)
CPT/HCPCS: 93306; Q9957

== ENCOUNTER → 2022-02-19 12:35 | Outpatient (BNVA) | payer MEDICARE, SELFPAY | PROVIDERS: PCP Internal Medicine; Visit Provider Registered Nurse Diabetes Educator | DX: E11.65 Type 2 diabetes mellitus with hyperglycemia (principal); Z79.4 Long term (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 of insulin | CPT/HCPCS: 99211 ==

== ENCOUNTER 2022-03-12 02:15 | Inpatient (IN) | payer MEDICARE, SELFPAY ==
[2022-03-12] VITALS (13 sets, daily range): BP systolic 84–137; BP diastolic 68–90; PULSE 94–133; RESP 15–148; TEMP 36–36.3; O2SAT 94–99; BMI 39.9; BMI 42.5
--- NOTE | 2022-03-12 | ECG_ITS ---
Test Reason : CHEST PAIN Blood Pressure : / mmHG Vent. Rate : 132 BPM Atrial Rate : 000 BPM P-R Int : 000 ms QRS Dur : 112 ms QT Int : 336 ms P-R-T Axes : 000 -23 135 degrees QTc Int : 497 ms Atrial fibrillation with rapid ventricular response Incomplete left bundle branch block Minimal voltage criteria for LVH, may be normal variant ( Wanda product ) ST & T wave abnormality, consider lateral ischemia Abnormal ECG When compared with ECG of 16-MAR-2020 06:53, Atrial fibrillation has replaced Sinus rhythm Incomplete left bundle branch block is now Present Referred By: Generic ED Physician Electronically Signed By:ESVIN ERICKSON MD
--- NOTE | ~2022-03-12 | CT_ITS ---
EXAMINATION: CT ANGIOGRAM OF THE CHEST WITH AND WITHOUT CONTRAST (CT PULMONARY ANGIOGRAM FOR PE) CLINICAL INFORMATION: Reason for Exam hx CA. elevated dimer, tachycardic, sob COMPARISON: Chest x-ray from earlier the same day TECHNIQUE: Prior to contrast administration, noncontrast localization images were obtained. Subsequently, multidetector volumetric imaging was performed from the thoracic inlet to below the diaphragms following the administration of 80 mL Omnipaque 350 intravenous contrast. No contrast reaction reported Sagittal, coronal, and MIP oblique sagittal reformatted images were obtained on the CT workstation, uploaded to PACS, and reviewed. This CT examination was performed using dose optimization techniques as appropriate, variously including the following: *Automated exposure control *Adjustment of mA and/or kV according to patient size (this includes techniques or standardized protocols for targeted exams where dose is matched to indication/reason for exam; i.e. extremities or head) *Use of iterative reconstruction technique Total exam dose-length product mGy-cm FINDINGS: QUALITY OF STUDY/CONTRAST BOLUS: Satisfactory. PULMONARY ARTERIES: No central or segmental pulmonary emboli. THORACIC AORTA: No aneurysm or dissection. LUNG: Compressive atelectasis at the lung bases right greater than left adjacent to the pleural effusions. PLEURA: Moderate right and small left pleural effusions. No pneumothorax. MEDIASTINUM: Enlarged heart.. No pericardial effusion. Small mediastinal lymph nodes. Small bilateral hilar lymph nodes. No enlarged lymph nodes.. No evidence of septal bowing or right heart strain. Mild coronary artery calcification. CHEST WALL/AXILLA: No axillary or internal mammary lymphadenopathy. OSSEOUS STRUCTURES: No acute or suspicious osseous abnormality. Degenerative changes of the spine. UPPER ABDOMEN: Unremarkable. The gallbladder has been removed. No reflux of contrast into the hepatic veins to suggest elevated right heart pressures. CT/CT angio chest PE protocol IMPRESSION: No evidence of pulmonary embolism. Enlarged heart. Bilateral pleural effusions. VTE: negative
[2022-03-12 02:46] LABS: MANUAL DIFF FLAG NO
[2022-03-12 02:47] LABS: Basophils Absolute Auto 0.1 X10*3/uL (0.0-0.2); Basophils Percent Auto 0.8 % (0-2); Eosinophils Absolute Auto 0.6 X10*3/uL (0.0-0.4); Eosinophils Percent Auto 7.4 % (0-4); Hematocrit 39.1 % (37.0-47.0); Hemoglobin 12.5 g/dl (12.0-16.0); Imm Gran Abs Auto 0.02 X10*3/uL (0.00-0.03); Imm Gran Pct Auto 0.3 % (0.0-0.4); Lymphocytes Absolute Auto 2.5 X10*3/uL (1.2-4.9); Mean Corpuscular Hemoglobin 29.5 pg (27.0-33.0); Mean Corpuscular Volume 92.2 fL (80.0-98.0); Mean Platelet Volume 9.9 fL (9.4-12.3); Monocytes Absolute Auto 0.5 X10*3/uL (0.1-1.2); Monocytes Percent Auto 6.5 % (2-11); Neutrophils Absolute Auto 4.2 x10*3/uL (2.0-8.3); Platelet Count 238 X10*3/uL (160-400); Red Blood Count 4.24 X10*6/uL (4.20-5.50); Red Cell Distribution Width 14.7 % (11.0-16.0); White Blood Count 7.9 X10*3/uL (4.8-10.8)
--- NOTE | 2022-03-12 02:48 | ED_ITS ---
HPI - Chest Pain General Chief Complaint: Chest Pain Stated Complaint: sob, heart condition,cancer Time Seen by Provider: 03/12/22 02:34 Source: patient and family Mode of arrival: wheelchair Limitations: no limitations History of Present Illness HPI narrative: Patient comes to the emergency room complaining of shortness of breath and chest pressure. Patient states that the shortness of breath started approximately 1 week ago, gradually getting worse. Patient states that at in the last few days, with minimal exertion she becomes significantly short of breath. Patient states that for the last 3 hours, patient has had chest pressure bilaterally. Patient unable to lay flat due to shortness of breath. Also, patient noticed that her legs have gotten much more swollen the last few days. Related Data Home Medications Medication Instructions Recorded Confirmed aspirin 81 mg tablet,delayed 81 mg PO DAILY 10/17/21 01/28/22 release (Adult Aspirin Regimen) blood-glucose meter (FreeStyle 10/25/21 01/28/22 Lite Meter kit) lancets 28 gauge (FreeStyle 10/25/21 01/28/22 Lancets) insulin lispro 100 unit/mL 12 unit subcut TID 12/28/21 01/28/22 subcutaneous pen Previous Rx's Medication Instructions Recorded blood sugar diagnostic (FreeStyle #100 ea 10/11/20 Lite Strips) diclofenac sodium 1 % topical gel 4 g topical QID PRN knee pain #100 11/06/20 grams gabapentin 100 mg capsule 100 mg PO BID 90 days #180 caps 03/26/21 lisinopril 20 1 tab PO QAM #90 tabs 03/26/21 mg-hydrochlorothiazide 25 mg tablet atorvastatin 40 mg tablet 40 mg PO DAILY 30 days #30 tabs 09/27/21 carvedilol 3.125 mg tablet 3.125 mg PO BID #60 tabs 10/17/21 insulin syringe-needle U-100 1/2 #200 ea 11/13/21 mL 31 gauge x 15/64 (BD Veo Insulin Syringe Ultra-Fine) dulaglutide 1.5 mg/0.5 mL 1.5 mg (0.5 mL) subcut QWEEK #2 mL 11/16/21 subcutaneous pen injector (Trulicity) empagliflozin 25 mg tablet 25 mg PO DAILY #30 tabs 11/16/21 (Jardiance) pen needle, diabetic 31 gauge x #100 ea 11/29/21/ (BD Ultra-Fine Short Pen Needle) insulin degludec 100 unit/mL (3 42 unit (0.42 mL) subcut DAILY #15 12/31/21 mL) subcutaneous pen (Tresiba mL FlexTouch U-100 insulin) hydrochlorothiazide 25 mg tablet 25 mg PO QPM #60 tabs 01/28/22 Allergies Allergy/AdvReac Type Severity Reaction Status Date / Time red dye [Red Dye] Allergy Severe HIVES,THROAT Verified 01/28/22 13:19 CLOSES FROM RED FOOD DYE Review of Systems Review of Systems: Constitutional : No Weight loss, No Fever, No Chills, No Night Sweats, No Fatigue, No Malaise ENT/Mouth : No Hearing loss, No Ear Pain, No Nasal Congestion, No Sinus Pain, No Hoarseness, No sore throat, No Rhinorrhea, No Swallowing Difficulty Eyes: No Eye Pain, No Swelling, No Redness, No Foreign Body, No Discharge, No Vision Changes Cardiovascular : Complaining of bilateral chest pain, orthopnea, lower extremity edema worsening over last week, worsening shortness of breath with exertion Respiratory : Patient coming with cough, no sputum, no wheezing Gastrointestinal : No Nausea, No Vomiting, No Diarrhea, No Constipation, No abdominal Pain, No Hematochezia, No Melena Genitourinary : no irregular bleeding, No Dysuria, No Urinary Frequency, No Hematuria, No Urinary Incontinence, No Urgency, No Flank Pain, No Urinary Flow Changes, No Hesitancy Musculoskeletal : No joint pain, No Myalgias, No Joint Swelling Skin : No Skin Lesions, No rash Neuro : No Weakness, No Numbness, No Paresthesias, No Loss of Consciousness, No Dizziness, No Headache Psych : No Anxiety/Panic, No Depression, No SI/HI/AH/VH, No Social Issues, Heme/Lymph: No Bruising, No Bleeding,No Lymphadenopathy Endocrine : No Polyuria, No Polydipsia, No Temperature Intolerance PMFSH Past Medical History Medical History Colonoscopy refused Diabetes type 2, uncontrolled Diabetic neuropathy Endometrial adenocarcinoma Essential hypertension Hiatal hernia History of basal cell carcinoma History of cholelithiasis History of esophagitis Incomplete left bundle branch block (LBBB) Irritable bowel syndrome (IBS) Mammogram declined Mild intermittent asthma Mixed dyslipidemia Morbid obesity Obesity due to excess calories Osteoarthritis, knee Osteonecrosis of right hip Papanicolaou smear declined Post-menopausal bleeding Type 2 diabetes mellitus with hyperglycemia, with long-term current use of insulin Type 2 diabetes mellitus with hyperglycemia, without long-term current use of insulin Uterine fibroid Vitamin D deficiency Surgical History (Updated 01/28/22 @ 13:25 by UVALDO Gregory) H/O hernia repair History of cholecystectomy History of hip surgery History of hysterectomy Hx of section Hx of colonoscopy Family History Family History Father Myocardial infarction Cardiovascular disease Mother Diabetes mellitus Essential hypertension Daughter Anxiety disorder Mental health disorder Son Mental health disorder Social History Social History Household Members: Spouse and Children Housing: House Alcohol intake: never Patient Tobacco Use Status: Never used Tobacco e-Cigarette/Vaping Use: Never Used Second Hand Smoke Exposure: No Advance Directives: No Advance Directives Information Provided: Yes service: No Current occupational status: retired Cognitive needs: No Hearing needs: No Vision needs: Yes Physical Exam Vital Signs: Vital Signs: Last Vital Signs Pulse 133 H 03/12/22 03:02 Resp 22 H 03/12/22 03:02 BP 101/82 03/12/22 03:02 Pulse Ox 94 03/12/22 03:02 O2 Del Method 03/12/22 03:02 BMI result Body Mass Index 39.9 Const: Other: Appearance: Alert. Oriented X3. No acute distress. Eyes: Pupils equal, round and reactive to light. ENT: Pharynx normal. Neck: Normal inspection. Neck supple. No lymph nodes noted. No crepitus CVS: Normal heart rate and rhythm. Pulses normal. Normal S1 and S2 Respiratory: Bilateral crackles, no wheezing Abdomen: Soft and nontender. No rigidity. No distention. Skin: Skin warm and dry. Normal skin color. Normal skin turgor. Extremities: +3 pitting edema bilaterally Neuro: Oriented X 3. No motor deficit. No sensory deficit. Moving all extremities. No slurred speech. CN 2 through 12 grossly intact Psych: calm, cooperative, normal affect Course Course Course Narrative: I discussed with the patient that she has a CHF exacerbation likely, on top of it, patient has new onset atrial fibrillation. This is any condition to the patient's knowledge. Patient is not on blood thinners. D-dimer pending. 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 Patient received radiation, no longer on treatment. Patient has new onset CHF, patient was in a dose of Cardizem. Now blood pressure in the low 90s. Patient given calcium gluconate. No longer having chest pain. Discussed the patient with Dr. Corbett, patient being admitted. Patient has new onset atrial fibrillation, patient will need anticoagulation. Dimer is elevated, we will go ahead and do a CT scan for pulmonary embolism. However, it is likely that patient's symptoms are likely secondary to new onset atrial fibrillation about a pulmonary embolism. Medications Administered Generic Name Dose Route Start Last Admin Trade Name Freq PRN Reason Stop Dose Admin Calcium Gluconate 2 gm in 100 mls @ 50 mls/hr 03/12/22 02:46 03/12/22 02:59 Calcium Gluconate IV 03/12/22 04:45 50 mls/hr ONCE ONE Administration Discontinued Medications Generic Name Dose Route Start Last Admin Trade Name Freq PRN Reason Stop Dose Admin Diltiazem HCl 10 mg 03/12/22 02:46 03/12/22 02:56 Diltiazem Hcl 50 Mg/10 Ml Vial IVPUSH 03/12/22 02:47 10 mg STAT STA Administration Medical Decision Making Differential Diagnosis Differential Diagnoses: The differential diagnosis associated with the presentation includes (Pulmonary edema, CHF, atrial fibrillation, pulmonary embolism) Admission/Observation Consideration of admission/observation: Escalation of care including adm ission/observation considered Patient has new onset atrial fibrillation and CHF. Consult Healthcare Provider Management of the patient was discussed with: Hospitalist (Discussed patient with Dr. Ho, agrees the patient is to be hospitalist, patient was started on Cardizem drip) Lab Data MDM Lab Attestation statement: I reviewed the patient's lab results. Result Diagrams: 03/12/22 02:41 03/12/22 02:41 Labs: Lab Results 03/12/22 03/12/22 03/12/22 Range/Units 02:41 02:41 02:41 WBC 7.9 (4.8-10.8) X10*3/uL RBC 4.24 (4.20-5.50) X10*6/uL Hgb 12.5 (12.0-16.0) g/dl Hct 39.1 (37.0-47.0) % MCV 92.2 (80.0-98.0) fL MCH 29.5 (27.0-33.0) pg MCHC 32.0 (31.0-35.0) g/dl RDW 14.7 (11.0-16.0) % Plt Count 238 (160-400) X10*3/uL MPV 9.9 (9.4-12.3) fL Immature Gran % (Auto) 0.3 (0.0-0.4) % Neut % (Auto) 53.0 (45-73) % Lymph % (Auto) 32.0 (20-40) % [place] % (Auto) 6.5 (2-11) % Eos % (Auto) 7.4 H (0-4) % Baso % (Auto) 0.8 (0-2) % Lymph # (Auto) 2.5 (1.2-4.9) X10*3/uL [place] # (Auto) 0.5 (0.1-1.2) X10*3/uL Eos # (Auto) 0.6 H (0.0-0.4) X10*3/uL Baso # (Auto) 0.1 (0.0-0.2) X10*3/uL Abs Immat Gran (auto) 0.02 (0.00-0.03) X10*3/uL Absolute Neuts (auto) 4.2 (2.0-8.3) x10*3/uL Absolute Nucleated RBC 0.000 (0.0-0.012) X10*3/uL Nucleated RBC % (auto) 0.0 (0.0-0.2) /100WBC PT (10.0-13.1) SEC INR (0.9-1.1) D-Dimer High Sensitivty NG/ML VBG pH (7.32-7.43) VBG pCO2 mmHg VBG pO2 mmHg VBG HCO3 (22-26) mmol/L VBG O2 Saturation % VBG Base Excess mmol/L Sodium 136 (135-145) mmol/L Potassium 4.3 (3.3-5.1) mmol/L Chloride 102 (96-108) mmol/L Carbon Dioxide 23 (22-29) mmol/L Anion Gap 15 (12-20) BUN 32 H (9-16) mg/dL Creatinine 1.17 (0.5-1.4) mg/dL Estim Creat Clear Calc 58.0 Estimated GFR 46 Random Glucose 154 H (60-115) mg/dL Lactic Acid (0.5-2.0) mmol/L Calcium 9.0 (8.4-10.2) mg/dL Magnesium 2.1 (1.6-2.6) mg/dL Total Bilirubin 1.2 H (0.0-1.0) mg/dL Direct Bilirubin 0.3 (0.0-0.5) mg/dL AST 19 (5-31) U/L ALT 21 (0-31) U/L Alkaline Phosphatase 111 (39-117) U/L Troponin I High Sens 284.5 H* (<3.5-17.0) ng/L B-Natriuretic Peptide (<100) pg/mL Total Protein 6.6 (6.5-8.0) g/dL Albumin 3.7 (3.5-5.0) g/dL TSH 2.37 (0.32-4.0) uIU/mL COVID-19 ([facility]) (Negative) COVID-19 Clin Com 03/12/22 03/12/22 03/12/22 Range/Units 02:41 03:05 03:05 WBC (4.8-10.8) X10*3/uL RBC (4.20-5.50) X10*6/uL Hgb (12.0-16.0) g/dl Hct (37.0-47.0) % MCV (80.0-98.0) fL MCH (27.0-33.0) pg MCHC (31.0-35.0) g/dl RDW (11.0-16.0) % Plt Count (160-400) X10*3/uL MPV (9.4-12.3) fL Immature Gran % (Auto) (0.0-0.4) % Neut % (Auto) (45-73) % Lymph % (Auto) (20-40) % [place] % (Auto) (2-11) % Eos % (Auto) (0-4) % Baso % (Auto) (0-2) % Lymph # (Auto) (1.2-4.9) X10*3/uL [place] # (Auto) (0.1-1.2) X10*3/uL Eos # (Auto) (0.0-0.4) X10*3/uL Baso # (Auto) (0.0-0.2) X10*3/uL Abs Immat Gran (auto) (0.00-0.03) X10*3/uL Absolute Neuts (auto) (2.0-8.3) x10*3/uL Absolute Nucleated RBC (0.0-0.012) X10*3/uL Nucleated RBC % (auto) (0.0-0.2) /100WBC PT (10.0-13.1) SEC INR (0.9-1.1) D-Dimer High Sensitivty NG/ML VBG pH (7.32-7.43) VBG pCO2 mmHg VBG pO2 mmHg VBG HCO3 (22-26) mmol/L VBG O2 Saturation % VBG Base Excess mmol/L Sodium (135-145) mmol/L Potassium (3.3-5.1) mmol/L Chloride (96-108) mmol/L Carbon Dioxide (22-29) mmol/L Anion Gap (12-20) BUN (9-16) mg/dL Creatinine (0.5-1.4) mg/dL Estim Creat Clear Calc Estimated GFR Random Glucose (60-115) mg/dL Lactic Acid 2.5 H* (0.5-2.0) mmol/L Calcium (8.4-10.2) mg/dL Magnesium (1.6-2.6) mg/dL Total Bilirubin (0.0-1.0) mg/dL Direct Bilirubin (0.0-0.5) mg/dL AST (5-31) U/L ALT (0-31) U/L Alkaline Phosphatase (39-117) U/L Troponin I High Sens (<3.5-17.0) ng/L B-Natriuretic Peptide 410 H (<100) pg/mL Total Protein (6.5-8.0) g/dL Albumin (3.5-5.0) g/dL TSH (0.32-4.0) uIU/mL COVID-19 ([facility]) Negative (Negative) COVID-19 Clin Com See Note 03/12/22 03/12/22 Range/Units 03:05 03:08 WBC (4.8-10.8) X10*3/uL RBC (4.20-5.50) X10*6/uL Hgb (12.0-16.0) g/dl Hct (37.0-47.0) % MCV (80.0-98.0) fL MCH (27.0-33.0) pg MCHC (31.0-35.0) g/dl RDW (11.0-16.0) % Plt Count (160-400) X10*3/uL MPV (9.4-12.3) fL Immature Gran % (Auto) (0.0-0.4) % Neut % (Auto) (45-73) % Lymph % (Auto) (20-40) % [place] % (Auto) (2-11) % Eos % (Auto) (0-4) % Baso % (Auto) (0-2) % Lymph # (Auto) (1.2-4.9) X10*3/uL [place] # (Auto) (0.1-1.2) X10*3/uL Eos # (Auto) (0.0-0.4) X10*3/uL Baso # (Auto) (0.0-0.2) X10*3/uL Abs Immat Gran (auto) (0.00-0.03) X10*3/uL Absolute Neuts (auto) (2.0-8.3) x10*3/uL Absolute Nucleated RBC (0.0-0.012) X10*3/uL Nucleated RBC % (auto) (0.0-0.2) /100WBC PT 13.1 (10.0-13.1) SEC INR 1.1 (0.9-1.1) D-Dimer High Sensitivty 347 NG/ML VBG pH 7.51 H (7.32-7.43) VBG pCO2 25 mmHg VBG pO2 43 mmHg VBG HCO3 20 L (22-26) mmol/L VBG O2 Saturation 74.0 % VBG Base Excess -1.0 mmol/L Sodium (135-145) mmol/L Potassium (3.3-5.1) mmol/L Chloride (96-108) mmol/L Carbon Dioxide (22-29) mmol/L Anion Gap (12-20) BUN (9-16) mg/dL Creatinine (0.5-1.4) mg/dL Estim Creat Clear Calc Estimated GFR Random Glucose (60-115) mg/dL Lactic Acid (0.5-2.0) mmol/L Calcium (8.4-10.2) mg/dL Magnesium (1.6-2.6) mg/dL Total Bilirubin (0.0-1.0) mg/dL Direct Bilirubin (0.0-0.5) mg/dL AST (5-31) U/L ALT (0-31) U/L Alkaline Phosphatase (39-117) U/L Troponin I High Sens (<3.5-17.0) ng/L B-Natriuretic Peptide (<100) pg/mL Total Protein (6.5-8.0) g/dL Albumin (3.5-5.0) g/dL TSH (0.32-4.0) uIU/mL COVID-19 ([facility]) (Negative) COVID-19 Clin Com Independent Interpretation I performed an independent interpretation of an: Plain X-Ray (Chest x-ray shows pleural effusions bilaterally) Radiology Impression Discussion of test interpretation with radiology: I have reviewed the radiologist's reading. Radiologist Impression: FINDINGS: Low lung volumes. Diffuse bronchial thickening. Small bilateral pleural effusions and accompanying atelectasis suspected. No pneumothorax. Normal heart size and pulmonary vascularity. XR/XR chest 1V IMPRESSION: Small bilateral pleural effusions and accompanying atelectasis. Diffuse mild bronchial thickening Critical Care Time Critical Care Time Critical Care Time: Yes Total Critical Care Time: 60 Attestation: I have personally provided critical care time. Time includes review of lab data, radiology results, discussion with consultants, and monitoring for potential decompensation. Intervention performed as documented. Discharge Plan Discharge Clinical Impression: Atrial fibrillation, new onset, CHF (congestive heart failure) Patient Disposition: Admitted As Inpatient Prescriptions: No Action (DME) FreeStyle Lite Strips Strip See Rx Instructions .Route Qty: 100 5RF Rx Instructions: As directed check sugar twice a day before meals diclofenac sodium 1 % gel 4 g topical QID PRN (Reason: knee pain) Qty: 100 0RF Rx Instructions: apply to single knee, ankle, foot; for foot includes sole/toes/top of foot (DME) insulin syringe-needle U-100 [BD Veo Insulin Syringe UF] 1/2 mL 31 gauge x 15/64 syringe See Rx Instructions .Route Qty: 200 1RF Rx Instructions: As directed twice a day Jardiance 25 mg tablet 25 mg PO DAILY Qty: 30 5RF Trulicity 1.5 mg/0.5 mL pen injector 1.5 mg subcut QWEEK Qty: 2 4RF (DME) pen needle, diabetic [BD Ultra-Fine Short Pen Needle] 31 gauge x 5/16 needle See Rx Instructions .ROUTE .COMPLEX Qty: 100 3RF Dose Instruction: USE 1 PEN NEEDLE ONCE DAILY WITH LANTUS INSULIN Rx Instructions: USE 1 PEN NEEDLE ONCE DAILY WITH LANTUS INSULIN insulin degludec [Tresiba FlexTouch U-100] 100 unit/mL (3 mL) insulin pen 42 unit subcut DAILY Qty: 15 5RF gabapentin 100 mg capsule 100 mg PO BID 90 Days Qty: 180 2RF lisinopril-hydrochlorothiazide 20-25 mg tablet 1 tab PO QAM Qty: 90 2RF insulin lispro 100 unit/mL insulin pen 12 unit subcut TID atorvastatin 40 mg tablet 40 mg PO DAILY 30 Days Qty: 30 11RF (DME) blood-glucose meter [FreeStyle Lite Meter] Kit See Rx Instructions .Route Rx Instructions: As directed (DME) lancets [FreeStyle Lancets] 28 gauge misc See Rx Instructions .Route Rx Instructions: As directed hydrochlorothiazide 25 mg tablet 25 mg PO QPM Qty: 60 3RF carvedilol 3.125 mg tablet 3.125 mg PO BID Qty: 60 5RF Rx Instructions: must administer with a meal/food Heart medication to help improve your pumping power aspirin [Adult Aspirin Regimen] 81 mg tablet,delayed release (DR/EC) 81 mg PO DAILY
--- NOTE | 2022-03-12 03:05 | PC.NURSE ---
THis freelance copywriter assumed care of this PT at this time.
[2022-03-12 03:13] LABS: Troponin-I High Sensitivity 284.5 ng/L (<3.5-17.0)
[2022-03-12 03:16] LABS: B Type Natriuretic Peptide 410 pg/mL (<100)
[2022-03-12 03:16] LABS: INTERNATIONAL NORM RATIO 1.1 (0.9-1.1); Prothrombin Time 13.1 SEC (10.0-13.1)
[2022-03-12 03:18] LABS: D Dimer High Sensitivity 347 NG/ML
[2022-03-12 03:26] LABS: COVID-19 Test Negative (Negative); IDNOW Serial# BCCEAD1C; Lactic Acid 2.5 mmol/L (0.5-2.0)
[2022-03-12 03:26] LABS: Alanine Aminotransferase 21 U/L (0-31); Albumin Level 3.7 g/dL (3.5-5.0); Alkaline Phosphatase 111 U/L (39-117); Anion Gap 15 (12-20); Aspartate Amino Transferase 19 U/L (5-31); Bilirubin Direct 0.3 mg/dL (0.0-0.5); Bilirubin Total 1.2 mg/dL (0.0-1.0); Blood Urea Nitrogen 32 mg/dL (9-16); Carbon Dioxide 23 mmol/L (22-29); Chloride 102 mmol/L (96-108); Estimated Glomerular Filt Rate 46; Glucose Random 154 mg/dL (60-115); Magnesium 2.1 mg/dL (1.6-2.6); Potassium 4.3 mmol/L (3.3-5.1); Sodium 136 mmol/L (135-145); TSH reflex Free T4 2.37 uIU/mL (0.32-4.0); Total Protein 6.6 g/dL (6.5-8.0)
--- NOTE | 2022-03-12 05:46 | PC.NURSE ---
Diltiazem drip started at 10 mg/hr per protocol.
--- NOTE | 2022-03-12 06:05 | PC.NURSE ---
Tritrate diltiazem to 15 mg/hr per protocol. PT heart rate 125.
--- NOTE | 2022-03-12 06:52 | PC.NURSE ---
PT ambulated to BR independently.
--- NOTE | 2022-03-12 07:00 | CA_ITS ---
Transthoracic Echocardiogram Patient (Last, First, Middle): July Dorantes J Gender: Female Date of : 1955 Age: 67 Procedure Date: 03/12/2022 Procedure Type: Transthoracic Echocardiogram Location: ER Height: 165.1 cm Weight: 108.86 kg BSA: 2.14 m2 Heart Rate: bpm BP: 117 / 84 mmHg Recycling Operator: TO Referring MD: Silvia Chang MD Development Scientist: Diego Valdez MD Symptoms: CHF, elevated trop Study Quality: Fair ECG Rhythm: Atrial Fibrillation Conclusions: - Severe LV systolic dysfunction with LVEF of 10-15% with diffuse hypokinesis but with some regional wall motion abnormality consistent with ischemic cardiomyopathy Findings Procedure Information Contrast agent, definity, is being given per protocol without apparent complications. Left Ventricle The left ventricular systolic function is severely decreased. The visually estimated ejection fraction is between 10-15%. Diastolic function is indeterminate on the basis of available data. Wall Motion Rest Echo Findings The anterior wall, entire lateral wall, and apex segment are hypokinetic. The entire septum and inferior wall are akinetic. Pericardium/Pleural There is no evidence of pericardial effusion. Prior Study Comparison Significant changes compared to prior study. LV systolic function is significantly reduced Measurements 2D Linear Measurements IVSd: 0.91 0.6-0.9/0.6-1.0 cm LVIDd: 6.04 3.9-5.3/4.2-5.9 cm LVIDd Index: 2.82 2.4-3.2/2.2-3.1 cm/m2 LVIDs: 5.46 2.0-3.6 cm LVPWd: 0.96 0.7-1.1 cm LV Mass: 284.57 67-162/88-224 g LV Mass Index: 132.98 43-95/49-115 g/m2 LVOT Diam: 2.00 3.0+(-)1.3 cm 2D Systolic Function EF 4C: 21.90 >55% EF 2C: 4.57 >55% LVOT LVOT Pk Héctor: 0.55 LVOT Mn Héctor: 0.35 LVOT VTI: 0.08 LVOT Pk Grad: 1.00 LVOT Mn Grad: 1.00 LVOT Diam: 2.00 LVOT Area: 3.14 Tricuspid Valve RA Press: 15.00 Updated in Other Vendor System with Status of Final Diego Valdez MD electronically signed on 03/12/2022 1:48:12 PM with status of Final
--- NOTE | 2022-03-12 07:01 | P.HPHOSP_ITS ---
History of Present Illness Date of Service: 03/12/22 Chief Complaint: chest pain, sob 67-year-old female with past medical history of diabetes, endometrial adenocarcinoma status post hysterectomy in November of this year, HTN, IBS, as well as CHF with reduced ejection fraction presents to the hospital with compla ints of chest pain as well as shortness of breath. Patient reports the chest pain is pressure-like midsternal, radiating to the back, intermittent, started today at rest. Patient also reports shortness of breath, orthopnea and PND. Has a mild cough that is dry nonproductive, she is also feeling palpitations in the chest, she has also noticed lower extremity edema the past few days. reports no headache, no change in vision, no dizziness, no abdominal pain nausea or vomiting, no diarrhea constipation, no urinary symptoms. On arrival to the ED patient has a heart rate of 123, found to be in AFib with RVR Labs are significant for WBC count of 7.9, hemoglobin of 12.5, hematocrit 39.1 been of 32, creatinine of 1.17, lactic acid of 2.5, troponin of 284 decreased to 102, BNP of 410, Chest x-ray shows small bilateral pleural effusion and accompanying atelectasis with diffuse mild bronchial thickening Review of Systems Review of Systems: Yes all other systems are reviewed and are negative [facility] Medical History Colonoscopy refused Diabetes type 2, uncontrolled Diabetic neuropathy Endometrial adenocarcinoma Essential hypertension Hiatal hernia History of basal cell carcinoma History of cholelithiasis History of esophagitis Incomplete left bundle branch block (LBBB) Irritable bowel syndrome (IBS) Mammogram declined Mild intermittent asthma Mixed dyslipidemia Morbid obesity Obesity due to excess calories Osteoarthritis, knee Osteonecrosis of right hip Papanicolaou smear declined Post-menopausal bleeding Type 2 diabetes mellitus with hyperglycemia, with long-term current use of insulin Type 2 diabetes mellitus with hyperglycemia, without long-term current use of insulin Uterine fibroid Vitamin D deficiency Family History Father Myocardial infarction Cardiovascular disease Mother Diabetes mellitus Essential hypertension Daughter Anxiety disorder Mental health disorder Son Mental health disorder Surgical History H/O hernia repair History of cholecystectomy History of hip surgery History of hysterectomy Hx of section Hx of colonoscopy Social History Household Members: Spouse and Children Housing: House Alcohol intake: never Patient Tobacco Use Status: Never used Tobacco e-Cigarette/Vaping Use: Never Used Second Hand Smoke Exposure: No Advance Directives: No Advance Directives Information Provided: Yes service: No Current occupational status: retired Cognitive needs: No Hearing needs: No Vision needs: Yes Meds Allergies Allergy/AdvReac Type Severity Reaction Status Date / Time red dye [Red Dye] Allergy Severe HIVES,THROAT Verified 01/28/22 13:19 CLOSES FROM RED FOOD DYE Active Medications: Current Medications Diltiazem HCl 125 mg/ Sodium (Chloride) 125 mls @ 0 mls/hr IVCONT .Q0M CARLENE; Protocol Last Admin: 03/12/22 05:44 Dose: 10 mg/hr, 10 mls/hr Home Medications Medication Instructions Recorded Confirmed Last Taken Type aspirin 81 mg tablet,delayed 81 mg PO DAILY 10/17/21 01/28/22 Unknown History release (Adult Aspirin Regimen) blood-glucose meter (FreeStyle 10/25/21 01/28/22 Unknown History Lite Meter kit) lancets 28 gauge (FreeStyle 10/25/21 01/28/22 Unknown History Lancets) insulin lispro 100 unit/mL 12 unit subcut TID 12/28/21 01/28/22 Unknown History subcutaneous pen atorvastatin 10 mg tablet 1 tab PO DAILY 03/12/22 03/12/22 Unknown History carvedilol 3.125 mg tablet 1 tab PO BID 03/12/22 03/12/22 Unknown History dulaglutide 0.75 mg/0.5 mL 0.5 ml subcut QWEEK 03/12/22 03/12/22 Unknown History subcutaneous pen injector (Trulicity) empagliflozin 25 mg tablet 1 tab PO DAILY 03/12/22 03/12/22 Unknown History (Jardiance) gabapentin 100 mg capsule 1 cap PO BID 03/12/22 03/12/22 Unknown History hydrochlorothiazide 25 mg tablet 1 tab PO QPM 03/12/22 03/12/22 Unknown History insulin NPH isoph U-100 human 100 20 unit subcut BID 03/12/22 03/12/22 Unknown History unit/mL (3 mL) subcutaneous pen (Humulin N NPH U-100 Insulin KwikPen) insulin lispro 100 unit/mL 5 unit subcut TID 03/12/22 03/12/22 Unknown History subcutaneous pen lisinopril 20 1 tab PO QAM 03/12/22 03/12/22 Unknown History mg-hydrochlorothiazide 25 mg tablet Physical Exam Vital Signs and Narrative: Vital Signs: Last Vital Signs Pulse 107 H 03/12/22 06:52 Resp 20 03/12/22 06:52 BP 117/84 03/12/22 05:47 Pulse Ox 98 03/12/22 06:52 O2 Del Method 03/12/22 06:52 BMI result Body Mass Index 39.9 Const: General: cooperative and no acute distress Orientation/consciousness: patient oriented x3 Eyes: General: appearance normal, both eyes and all related structures Resp: Other: Bilateral crackles Effort & Inspection: normal respiratory effort Cardio: Rate: tachycardic Rhythm: abnormal rhythm GI: Palpation (GI): Soft to palpation Auscultation: normal bowel sounds Skin: General skin exam: no rashes or lesions noted Neuro: General: patient oriented x3 Cognition (Neuro): normal cognition Extrem: General: Yes normal to inspection and Yes no pedal edema Results Labs CBC and Chem 7: 03/12/22 02:41 03/12/22 02:41 Labs: Laboratory Results - last 24 hr 03/12/22 03/12/22 03/12/22 02:41 02:41 02:41 MCV 92.2 MCH 29.5 MCHC 32.0 RDW 14.7 Plt Count 238 MPV 9.9 Immature Gran % (Auto) 0.3 Neut % (Auto) 53.0 Lymph % (Auto) 32.0 [place] % (Auto) 6.5 Eos % (Auto) 7.4 H Baso % (Auto) 0.8 Lymph # (Auto) 2.5 [place] # (Auto) 0.5 Eos # (Auto) 0.6 H Baso # (Auto) 0.1 Abs Immat Gran (auto) 0.02 Absolute Neuts (auto) 4.2 Absolute Nucleated RBC 0.000 Nucleated RBC % (auto) 0.0 PT INR D-Dimer High Sensitivty VBG pH VBG pCO2 VBG pO2 VBG HCO3 VBG O2 Saturation VBG Base Excess Anion Gap 15 Estim Creat Clear Calc 58.0 Estimated GFR 46 Random Glucose 154 H Lactic Acid Lactic Acid F/U @ 2Hr Calcium 9.0 Magnesium 2.1 Total Bilirubin 1.2 H Direct Bilirubin 0.3 AST 19 ALT 21 Alkaline Phosphatase 111 Troponin I High Sens 284.5 H* B-Natriuretic Peptide Total Protein 6.6 Albumin 3.7 TSH 2.37 COVID-19 (RAEANN) COVID-19 [employer] 03/12/22 03/12/22 03/12/22 02:41 03:05 03:05 MCV MCH MCHC RDW Plt Count MPV Immature Gran % (Auto) Neut % (Auto) Lymph % (Auto) [place] % (Auto) Eos % (Auto) Baso % (Auto) Lymph # (Auto) [place] # (Auto) Eos # (Auto) Baso # (Auto) Abs Immat Gran (auto) Absolute Neuts (auto) Absolute Nucleated RBC Nucleated RBC % (auto) PT INR D-Dimer High Sensitivty VBG pH VBG pCO2 VBG pO2 VBG HCO3 VBG O2 Saturation VBG Base Excess Anion Gap Estim Creat Clear Calc Estimated GFR Random Glucose Lactic Acid 2.5 H* Lactic Acid F/U @ 2Hr Calcium Magnesium Total Bilirubin Direct Bilirubin AST ALT Alkaline Phosphatase Troponin I High Sens B-Natriuretic Peptide 410 H Total Protein Albumin TSH COVID-19 (RAEANN) Negative COVID-[employer] See Note 03/12/22 03/12/22 03/12/22 03:05 03:08 06:33 MCV MCH MCHC RDW Plt Count MPV Immature Gran % (Auto) Neut % (Auto) Lymph % (Auto) [place] % (Auto) Eos % (Auto) Baso % (Auto) Lymph # (Auto) [place] # (Auto) Eos # (Auto) Baso # (Auto) Abs Immat Gran (auto) Absolute Neuts (auto) Absolute Nucleated RBC Nucleated RBC % (auto) PT 13.1 INR 1.1 D-Dimer High Sensitivty 347 VBG pH 7.51 H VBG pCO2 25 VBG pO2 43 VBG HCO3 20 L VBG O2 Saturation 74.0 VBG Base Excess -1.0 Anion Gap Estim Creat Clear Calc Estimated GFR Random Glucose Lactic Acid Lactic Acid F/U @ 2Hr 1.0 Calcium Magnesium Total Bilirubin Direct Bilirubin AST ALT Alkaline Phosphatase Troponin I High Sens B-Natriuretic Peptide Total Protein Albumin TSH COVID-19 (RAEANN) COVID-19 [employer] Imaging Radiologist's Impressions: Impressions Chest X-Ray 03/12/22 02:55 IMPRESSION: Small bilateral pleural effusions and accompanying atelectasis. Diffuse mild bronchial thickening Assessment and Plan (1) Atrial fibrillation, new onset: Status: Acute (2) Acute exacerbation of CHF (congestive heart failure): Status: Acute (3) Elevated troponin: Status: Acute Plan 67-year-old female with past medical history of CHF with reduced ejection fraction, diabetes, hypertension presents to the hospital with complaints of c hest pain and shortness of breath found to be in CHF in acute onset AFib # AFib with RVR - chest fast score of 6 - new onset - tachycardic, not responding to IV pushes - started on concentrator - will obtain Cardiology consult - echo from January shows ejection fraction of 35-40% - started on heparin GGT # acute CHF exacerbate - elevated BNP, x-ray findings are or overload, orthopnea PND, dyspnea - will treat with Lasix, low sodium diet, strict I&O, daily weight - cardiology consult # elevated troponin with chest pain - likely type 2 in the setting of AFib with RVR - patient started on heparin as above - She has had cardiac catheterization in 11/05 which showed LAD showed 50% proximal stenosis, LCx shows 100% stenosis in mid subsection. chronic total occlusion. RCA lesion and right PDA proximal subsection shows 70% stenosis, - cardiology on consult # diabetes - low-dose sliding scale insulin - continue home insulin - diabetic diet # HLD - continue staitn # HTN - stable - continue antihypertensives DVT ppx: Heparin ggt Patient's requirement for heparin, new onset AFib, acute CHF exacerbation patinet will require minimum 2 night inpatient hospital stay for further managem ent monitoring Time Spent With Patient Time: Total time managing care of this patient today ____ minutes. Quality Stroke Does the patient have a stroke diagnosis?: No VTE Prior VTE?: No VTE Risk Level:: Medical - moderate - high VTE Device Contraindication: Treatment Not Indicated VTE Drug Contraindication: N/A - Med Ordered
[2022-03-12 07:10] LABS: Troponin-I High Sensitivity 102.3 ng/L (<3.5-17.0)
--- NOTE | 2022-03-12 07:46 | PC.NURSE ---
Diltiazem on 15mg/hr change of shift. Reduced back down to 10mg/hr, BP soft. HR 90s. Pt feeling better. Plan for Heparin gtt.
[2022-03-12 07:55] LABS: Glucose, Whole Blood 139 mg/dL (60-115)
--- NOTE | 2022-03-12 08:26 | PC.NURSE ---
Second IV access obtained. Cardizem gtt held d/t low BP, HR 90-105. Dr Ruby aware. DELEON noted but resolves with rest. Denies cp at this time but states intermittent with activity. +2-3 pitting edema noted. Skin midly pale, warm and dry. Speaking full sentences.
--- NOTE | 2022-03-12 08:30 | PC.NURSE ---
Dr Ruby at bedside
--- NOTE | 2022-03-12 08:59 | PC.NURSE ---
Dr Valdez at bedside
[2022-03-12] MEDS: Furosemide 40 MG/4 ML VIAL IVPUSH (09:10)
--- NOTE | 2022-03-12 09:12 | P.CONCA_ITS ---
History of Present Illness History of Present Illness Date of Service: 03/12/22 Requesting physician: Silvia Chang Consult reason: atrial fibrillation and congestive heart failure Chief complaint: CHF NEW ONSET A FIB CHEST PAIN Narrative: I was consulted to see July in cardiology consultation today for development of new onset heart failure as well as new onset atrial fibrillation. She is a 67-year-old woman seen by Dr. Storey in the past with make cardiomyopathy with moderate LV systolic dysfunction with LVEF of 35-40% with diffuse coronary artery disease 4 recently underwent hysterectomy and radiation therapy for uterine cancer and currently is in remission. She was doing well and tolerated the surgery without any cardiac decompensation. Has been tolerating her medications but not able to afford them all the time. She was off Jardiance for a while. She subsequently last week developed sudden-onset leg swelling along w ith abdominal distension and started getting short of breath with ambulation. She also started noticing that she was having racing heartbeat for about a week. She did not seek medical care at that point time but yesterday night she suddenly was not able to lay flat and was very short of breath associated with chest pressure and racing heart rate and came to the emergency room. She was noted to be in atrial fibrillation rapid ventricular response and findings consistent with decompensated congestive heart failure with elevated BNP and chest x-ray findings consistent with heart failure as well. She says last week she had started taking Jardiance again and had some increased urine output and her leg swelling gone down but not completely. She does not report any clear weight gain. She has not had any chest pressure prior to this till yesterday. Initial troponin was elevated but subsequent troponin is down trending. EKG shows atrial fibrillation with rapid ventricular response with incomplete left bundle-branch block with ST T wave changes suggestive of rate-related ischemia. She currently is feeling very well. Was planned to be started on IV heparin but this is not happen. She did get IV Cardizem which dropped her blood pressure in the 90s. She denies any lightheadedness or chest pressure at this point in time. Her breathing is much improved and she is appearing very comfortable. Review of Systems Constitutional: Constitutional: Reports no additional constitutional complaints Eyes: Eyes: Reports no additional eye complaints Cardiovascular: Cardiovascular: Reports Abdominal Distension, Reports chest pain at rest, Reports rapid heart rate, Reports leg edema, Denies lightheadedness, Denies Loss of Consciousness, Reports palpitations, Reports dyspnea on exertion and Reports orthopnea Respiratory: Respiratory: Reports no additional respiratory complaints and Reports dyspnea on exertion Gastrointestinal: Gastrointestinal: Reports no additional gastrointestinal complaints Genitourinary: Genitourinary: Reports no additional female genitourinary complaints Musculoskeletal: Musculoskeletal: Reports no additional musculoskeletal complaints Integumentary/Breasts: Skin/Breast: Reports system reviewed and no additional complaints, except as docu Neurologic: Reports system reviewed and no additional complaints, except as documented Psychiatric: Psychiatric: Reports no additional psychiatric complaints Endocrine: Endocrine: Reports palpitations Hematologic/Lymphatic: Hematologic/Lymphatic: Reports no additional hematologic/lymphatic complaints Allergic/Immunologic: Allergic/Immunologic: Reports no additional allergic/immunologic complaints [facility] Past Medical History Medical History Colonoscopy refused Diabetes type 2, uncontrolled Diabetic neuropathy Endometrial adenocarcinoma Essential hypertension Hiatal hernia History of basal cell carcinoma History of cholelithiasis History of esophagitis Incomplete left bundle branch block (LBBB) Irritable bowel syndrome (IBS) Mammogram declined Mild intermittent asthma Mixed dyslipidemia Morbid obesity Obesity due to excess calories Osteoarthritis, knee Osteonecrosis of right hip Papanicolaou smear declined Post-menopausal bleeding Type 2 diabetes mellitus with hyperglycemia, with long-term current use of insulin Type 2 diabetes mellitus with hyperglycemia, without long-term current use of insulin Uterine fibroid Vitamin D deficiency Family History Family History Father Myocardial infarction Cardiovascular disease Mother Diabetes mellitus Essential hypertension Daughter Anxiety disorder Mental health disorder Son Mental health disorder Surgical History Surgical History H/O hernia repair History of cholecystectomy History of hip surgery History of hysterectomy Hx of section Hx of colonoscopy Social History Social History Household Members: Spouse and Children Housing: House Alcohol intake: never Patient Tobacco Use Status: Never used Tobacco Smoked in Last 30 Days: No e-Cigarette/Vaping Use: Never Used Second Hand Smoke Exposure: No Use of substances other than those prescribed or required for medical reasons: No Advance Directives: No Advance Directives Information Provided: Yes service: No Current occupational status: retired Cognitive needs: No Hearing needs: No Vision needs: Yes Meds Allergies Allergy/AdvReac Type Severity Reaction Status Date / Time red dye [Red Dye] Allergy Severe HIVES,THROAT Verified 01/28/22 13:19 CLOSES FROM RED FOOD DYE Active Medications: Current Medications Acetaminophen (Acetaminophen 325 Mg Tablet) 650 mg PO Q6H PRN PRN Reason: Pain, Mild (Pain Scale 1-3) Dextrose (Dextrose 50 % 25 Gm/50 Ml Syringe) 25 gm IVPUSH Q15M PRN; Protocol PRN Reason: per Hypoglycemia Standing Ord. Docusate Sodium (Docusate Sodium 100 Mg Capsule) 100 mg PO DAILY PRN PRN Reason: Constipation Furosemide (Furosemide 40 Mg/4 Ml Vial) 40 mg IVPUSH DAILY [facility]; Protocol Glucose (Glucose Gel 15 Gm Gel..Gram.) 15 gm PO Q15M PRN; Protocol PRN Reason: per Hypoglycemia Standing Ord. Insulin Human Lispro (Insulin Lispro 100 Unit/Ml 3 Ml Vial) 0 unit SUBCUT QIDACHS [facility]; Protocol Last Admin: 03/12/22 07:53 Dose: Not Given Ondansetron HCl (Ondansetron Hcl 4 Mg/2 Ml Vial) 4 mg IVPUSH Q8H PRN PRN Reason: Nausea and Vomiting Pharmacy Consult (Consult Rx Perform Med Rec) 1 each MISCELLANE ONCE PRN PRN Reason: Consult order Sodium Chloride (0.9 % Sodium Chloride Flush 3 Ml Syringe) [facility] Last Admin: 03/12/22 07:53 Dose: Not Given Home Medications Medication Instructions Recorded Confirmed Last Taken Type aspirin 81 mg tablet,delayed 81 mg PO DAILY 10/17/21 01/28/22 Unknown History release (Adult Aspirin Regimen) blood-glucose meter (FreeStyle 10/25/21 01/28/22 Unknown History Lite Meter kit) lancets 28 gauge (FreeStyle 10/25/21 01/28/22 Unknown History Lancets) atorvastatin 10 mg tablet 1 tab PO DAILY 03/12/22 03/12/22 Unknown History carvedilol 3.125 mg tablet 1 tab PO BID 03/12/22 03/12/22 Unknown History dulaglutide 0.75 mg/0.5 mL 0.5 ml subcut QWEEK 03/12/22 03/12/22 Unknown History subcutaneous pen injector ([facility]) empagliflozin 25 mg tablet 1 tab PO DAILY 03/12/22 03/12/22 Unknown History (Jardiance) gabapentin 100 mg capsule 1 cap PO BID 03/12/22 03/12/22 Unknown History hydrochlorothiazide 25 mg tablet 1 tab PO BEDTIME 03/12/22 03/12/22 Unknown History insulin NPH isoph U-100 human 100 20 unit subcut BID 03/12/22 03/12/22 Unknown History unit/mL (3 mL) subcutaneous pen (Humulin N NPH U-100 Insulin KwikPen) insulin lispro 100 unit/mL 5 unit subcut TID 03/12/22 03/12/22 Unknown History subcutaneous pen lisinopril 20 1 tab PO DAILY 03/12/22 03/12/22 Unknown History mg-hydrochlorothiazide 25 mg tablet Physical Exam Vital Signs: Vital Signs: Last Vital Signs Pulse 98 03/12/22 08:28 Resp 20 03/12/22 08:28 BP 92/68 03/12/22 08:28 Pulse Ox 99 03/12/22 08:28 O2 Del Method 03/12/22 08:28 O2 Flow Rate 2 03/12/22 08:28 BMI result Body Mass Index 42.5 Const: General: cooperative, comfortable, no acute distress, alert and awake Nutritional Appearance: obese morbidly obese Orientation/consciousness: patient oriented x3 Limitations: no limitations HEENT: Head: Yes normocephalic and Yes atraumatic Neck: Neck: Yes trachea midline, Yes supple and Yes JVD Chest: Chest palpation & inspection: normal inspection of the chest Resp: Effort & Inspection: normal respiratory effort Auscultation: clear to auscultation bilaterally and diminished lung sounds Cardio: Jugular venous distension: JVD Palpation: normal PMI Rate: tachycardic Rhythm: abnormal rhythm irregularly irregular Heart sounds: S1 normal heart sound present, S2 normal heart sound present, no click, no gallops, no murmurs and no rubs GI: Inspection: Yes distended Auscultation: normal bowel sounds Skin: General skin exam: no rashes or lesions noted Neuro: General: patient oriented x3 and no focal motor deficits Extrem: General: No clubbing, No cyanosis and Yes edema Psych: Appearance: grossly normal Objective Labs and Meds Result diagrams: 03/12/22 02:41 03/12/22 02:41 Lab results: Laboratory Results - last 24 hr 03/12/22 03/12/22 03/12/22 02:41 02:41 02:41 WBC 7.9 RBC 4.24 Hgb 12.5 Hct 39.1 MCV 92.2 MCH 29.5 MCHC 32.0 RDW 14.7 Plt Count 238 MPV 9.9 Immature Gran % (Auto) 0.3 Neut % (Auto) 53.0 Lymph % (Auto) 32.0 [place] % (Auto) 6.5 Eos % (Auto) 7.4 H Baso % (Auto) 0.8 Lymph # (Auto) 2.5 [place] # (Auto) 0.5 Eos # (Auto) 0.6 H Baso # (Auto) 0.1 Abs Immat Gran (auto) 0.02 Absolute Neuts (auto) 4.2 Absolute Nucleated RBC 0.000 Nucleated RBC % (auto) 0.0 PT INR D-Dimer High Sensitivty VBG pH VBG pCO2 VBG pO2 VBG HCO3 VBG O2 Saturation VBG Base Excess Sodium 136 Potassium 4.3 Chloride 102 Carbon Dioxide 23 Anion Gap 15 BUN 32 H Creatinine 1.17 Estim Creat Clear Calc 58.0 Estimated GFR 46 POC Glucose Random Glucose 154 H Lactic Acid Lactic Acid F/U @ 2Hr Calcium 9.0 Magnesium 2.1 Total Bilirubin 1.2 H Direct Bilirubin 0.3 AST 19 ALT 21 Alkaline Phosphatase 111 Troponin I High Sens 284.5 H* B-Natriuretic Peptide Total Protein 6.6 Albumin 3.7 TSH 2.37 COVID-19 ([facility]) COVID-19 Clin Com 03/12/22 03/12/22 03/12/22 02:41 03:05 03:05 WBC RBC Hgb Hct MCV MCH MCHC RDW Plt Count MPV Immature Gran % (Auto) Neut % (Auto) Lymph % (Auto) [place] % (Auto) Eos % (Auto) Baso % (Auto) Lymph # (Auto) [place] # (Auto) Eos # (Auto) Baso # (Auto) Abs Immat Gran (auto) Absolute Neuts (auto) Absolute Nucleated RBC Nucleated RBC % (auto) PT INR D-Dimer High Sensitivty VBG pH VBG pCO2 VBG pO2 VBG HCO3 VBG O2 Saturation VBG Base Excess Sodium Potassium Chloride Carbon Dioxide Anion Gap BUN Creatinine Estim Creat Clear Calc Estimated GFR POC Glucose Random Glucose Lactic Acid 2.5 H* Lactic Acid F/U @ 2Hr Calcium Magnesium Total Bilirubin Direct Bilirubin AST ALT Alkaline Phosphatase Troponin I High Sens B-Natriuretic Peptide 410 H Total Protein Albumin TSH COVID-19 ([facility]) Negative [employer] Clin Com See Note 03/12/22 03/12/22 03/12/22 03:05 03:08 06:33 WBC RBC Hgb Hct MCV MCH MCHC RDW Plt Count MPV Immature Gran % (Auto) Neut % (Auto) Lymph % (Auto) [place] % (Auto) Eos % (Auto) Baso % (Auto) Lymph # (Auto) [place] # (Auto) Eos # (Auto) Baso # (Auto) Abs Immat Gran (auto) Absolute Neuts (auto) Absolute Nucleated RBC Nucleated RBC % (auto) PT 13.1 INR 1.1 D-Dimer High Sensitivty 347 VBG pH 7.51 H VBG pCO2 25 VBG pO2 43 VBG HCO3 20 L VBG O2 Saturation 74.0 VBG Base Excess -1.0 Sodium Potassium Chloride Carbon Dioxide Anion Gap BUN Creatinine Estim Creat Clear Calc Estimated GFR POC Glucose Random Glucose Lactic Acid Lactic Acid F/U @ 2Hr 1.0 Calcium Magnesium Total Bilirubin Direct Bilirubin AST ALT Alkaline Phosphatase Troponin I High Sens B-Natriuretic Peptide Total Protein Albumin TSH COVID-19 ([facility]) [employer] Com 03/12/22 03/12/22 06:33 07:51 WBC RBC Hgb Hct MCV MCH MCHC RDW Plt Count MPV Immature Gran % (Auto) Neut % (Auto) Lymph % (Auto) [place] % (Auto) Eos % (Auto) Baso % (Auto) Lymph # (Auto) [place] # (Auto) Eos # (Auto) Baso # (Auto) Abs Immat Gran (auto) Absolute Neuts (auto) Absolute Nucleated RBC Nucleated RBC % (auto) PT INR D-Dimer High Sensitivty VBG pH VBG pCO2 VBG pO2 VBG HCO3 VBG O2 Saturation VBG Base Excess Sodium Potassium Chloride Carbon Dioxide Anion Gap BUN Creatinine Estim Creat Clear Calc Estimated GFR POC Glucose 139 H Random Glucose Lactic Acid Lactic Acid F/U @ 2Hr Calcium Magnesium Total Bilirubin Direct Bilirubin AST ALT Alkaline Phosphatase Troponin I High Sens 102.3 H* B-Natriuretic Peptide Total Protein Albumin TSH COVID-19 ([facility]) [employer] Com Imaging Radiologist's impression: Impressions Chest X-Ray 03/12/22 02:55 IMPRESSION: Small bilateral pleural effusions and accompanying atelectasis. Diffuse mild bronchial thickening Assessment and Plan (1) Acute exacerbation of CHF (congestive heart failure): Status: Acute Patient presents with decompensated heart failure secondary to systolic dysf unction with ischemic cardiomyopathy with superimposed atrial fibrillation. I thing atrial fibrillation secondary to her decompensated heart failure rather than atrial fibrillation causing decompensated heart failure at this point time. I would gently diurese her with Lasix 20 mg IV push b.i.d. with strict intake and output chart to be maintained. Resume carvedilol later in the day once a blood pressure improves. Hold lisinopril for now given her low blood pressure and switch to valsartan 40 mg b.i.d. with eventual plan to switch her to Entresto. Discussed management of heart failure in details. Continue Jardiance therapy. Once blood pressure improves, will also consider adding spironolactone therapy to her regimen. Management was discussed. Continue to monitor electrolytes and renal function. Eventually will require repeat evaluation for coronary artery disease ischemic cardiomyopathy to see if she will benefit from revascularization but her primary problem is not currently myocardial ischemia but heart failure. Discussed with her in details. She understands and agrees. (2) Atrial fibrillation, new onset: Status: Acute Atrial fibrillation new onset given her moderate left atrial enlargement ischemic cardiomyopathy multiple risk factors is at risk for developing atrial fibrillation. Currently rate is difficult to control given her lower blood pressure. I would avoid using Cardizem given her heart failure as well as systolic dysfunction. Resume carvedilol once a blood pressures improved. Digit mk with digoxin 0.25 mg IV push q.6 hours x3 doses and give her 1 dose of p.o. digoxin tomorrow. Will plan TERRANCE guided cardioversion tomorrow to resume normal sinus rhythm and resume AV synchrony to help her heart failure symptoms overall. Avoid heparin and start on Eliquis 5 mg b.i.d.. Patient was explained the risks, benefits, alternatives to TERRANCE as well as synchronized cardioversion. She understands and agrees. Keep her NPO past midnight (3) Elevated troponin: Status: Acute Elevated troponin and chest pressure secondary to heart failure as well as atrial fibrillation rapid ventricular response and not a primary acute coronary syndrome event. She has underlying coronary artery disease and due to above condition causing troponin leak. At this point time would continue manage the above conditions 1st. Will eventually require further ischemic evaluation consideration for revascularization once stabilized from heart failure and atrial fibrillation perspective. Will continue to follow with you. Greater than 45 minutes was spent in managing her complex care Time Spent With Patient Time: Total time managing care of this patient today ____ minutes. Procedures Date of Service Date of Service: 03/12/22
--- NOTE | 2022-03-12 09:14 | HO.PM.IMPN ---
Subjective Subjective Date of Service: 03/12/22 Interval History: cc: sob, chest pain interval history: minimal improvement Cardiovascular Cardiovascular: Reports no additional cardiovascular complaints Respiratory Respiratory: Reports no additional respiratory complaints Physical Exam Vital Signs: Vital Signs: Last Vital Signs Pulse 98 03/12/22 08:28 Resp 20 03/12/22 08:28 BP 92/68 03/12/22 08:28 Pulse Ox 99 03/12/22 08:28 O2 Del Method 03/12/22 08:28 O2 Flow Rate 2 03/12/22 08:28 BMI result Body Mass Index 42.5 General: AO X 3, no acute distress Resp: Crackles bilateral, no accessory muscles used CVS: S1,S2,irregular, 2-3 + bilateral LE edema GI: soft, non tender, non distended Neuro: motor grossly intact, alert Psych: appropriate affect, appropriate insight Objective Data Active Medications Acetaminophen (Acetaminophen 325 Mg Tablet) 650 mg PO Q6H PRN PRN Reason: Pain, Mild (Pain Scale 1-3) Apixaban (Apixaban 5 Mg Tablet) 5 mg PO BID [facility] Dextrose (Dextrose 50 % 25 Gm/50 Ml Syringe) 25 gm IVPUSH Q15M PRN; Protocol PRN Reason: per Hypoglycemia Standing Ord. Digoxin (Digoxin 0.5 Mg/2 Ml Ampul) 0.25 mg IVPUSH Q6H [facility] Stop: 03/12/22 21:16 Docusate Sodium (Docusate Sodium 100 Mg Capsule) 100 mg PO DAILY PRN PRN Reason: Constipation Empagliflozin (Empagliflozin 25 Mg Tablet) 25 mg PO DAILY [facility] Furosemide (Furosemide 40 Mg/4 Ml Vial) 40 mg IVPUSH DAILY [facility]; Protocol Last Admin: 03/12/22 09:10 Dose: 40 mg Documented By: [facility]LE[facility] Glucose (Glucose Gel 15 Gm Gel..Gram.) 15 gm PO Q15M PRN; Protocol PRN Reason: per Hypoglycemia Standing Ord. Insulin Human Lispro (Insulin Lispro 100 Unit/Ml 3 Ml Vial) 0 unit SUBCUT QIDACHS [facility]; Protocol Last Admin: 03/12/22 07:53 Dose: Not Given Documented By: ALEXY Non-Admin Reason: No Insulin Coverage Ondansetron HCl (Ondansetron Hcl 4 Mg/2 Ml Vial) 4 mg IVPUSH Q8H PRN PRN Reason: Nausea and Vomiting Pharmacy Consult (Consult Rx Perform Med Rec) 1 each MISCELLANE ONCE PRN PRN Reason: Consult order Sodium Chloride (0.9 % Sodium Chloride Flush 3 Ml Syringe) 3 ml IVFLUSH QSHIFT [facility] Last Admin: 03/12/22 07:53 Dose: Not Given Documented By: ALEXY Non-Admin Reason: IV Running Labs CBC & Chem 7: 03/12/22 02:41 03/12/22 02:41 Labs: Laboratory Results - last 24 hr 03/12/22 03/12/22 03/12/22 02:41 02:41 02:41 MCV 92.2 MCH 29.5 MCHC 32.0 RDW 14.7 Plt Count 238 MPV 9.9 Immature Gran % (Auto) 0.3 Neut % (Auto) 53.0 Lymph % (Auto) 32.0 [place] % (Auto) 6.5 Eos % (Auto) 7.4 H Baso % (Auto) 0.8 Lymph # (Auto) 2.5 [place] # (Auto) 0.5 Eos # (Auto) 0.6 H Baso # (Auto) 0.1 Abs Immat Gran (auto) 0.02 Absolute Neuts (auto) 4.2 Absolute Nucleated RBC 0.000 Nucleated RBC % (auto) 0.0 PT INR D-Dimer High Sensitivty VBG pH VBG pCO2 VBG pO2 VBG HCO3 VBG O2 Saturation VBG Base Excess Anion Gap 15 Estim Creat Clear Calc 58.0 Estimated GFR 46 POC Glucose Random Glucose 154 H Lactic Acid Lactic Acid F/U @ 2Hr Calcium 9.0 Magnesium 2.1 Total Bilirubin 1.2 H Direct Bilirubin 0.3 AST 19 ALT 21 Alkaline Phosphatase 111 Troponin I High Sens 284.5 H* B-Natriuretic Peptide Total Protein 6.6 Albumin 3.7 TSH 2.37 COVID-19 ([facility]) COVID-19 Clin Com 03/12/22 03/12/22 03/12/22 02:41 03:05 03:05 MCV MCH MCHC RDW Plt Count MPV Immature Gran % (Auto) Neut % (Auto) Lymph % (Auto) [place] % (Auto) Eos % (Auto) Baso % (Auto) Lymph # (Auto) [place] # (Auto) Eos # (Auto) Baso # (Auto) Abs Immat Gran (auto) Absolute Neuts (auto) Absolute Nucleated RBC Nucleated RBC % (auto) PT INR D-Dimer High Sensitivty VBG pH VBG pCO2 VBG pO2 VBG HCO3 VBG O2 Saturation VBG Base Excess Anion Gap Estim Creat Clear Calc Estimated GFR POC Glucose Random Glucose Lactic Acid 2.5 H* Lactic Acid F/U @ 2Hr Calcium Magnesium Total Bilirubin Direct Bilirubin AST ALT Alkaline Phosphatase Troponin I High Sens B-Natriuretic Peptide 410 H Total Protein Albumin TSH COVID-19 ([facility]) Negative COVID-19 Clin Com See Note 03/12/22 03/12/22 03/12/22 03:05 03:08 06:33 MCV MCH MCHC RDW Plt Count MPV Immature Gran % (Auto) Neut % (Auto) Lymph % (Auto) [place] % (Auto) Eos % (Auto) Baso % (Auto) Lymph # (Auto) [place] # (Auto) Eos # (Auto) Baso # (Auto) Abs Immat Gran (auto) Absolute Neuts (auto) Absolute Nucleated RBC Nucleated RBC % (auto) PT 13.1 INR 1.1 D-Dimer High Sensitivty 347 VBG pH 7.51 H VBG pCO2 25 VBG pO2 43 VBG HCO3 20 L VBG O2 Saturation 74.0 VBG Base Excess -1.0 Anion Gap Estim Creat Clear Calc Estimated GFR POC Glucose Random Glucose Lactic Acid Lactic Acid F/U @ 2Hr 1.0 Calcium Magnesium Total Bilirubin Direct Bilirubin AST ALT Alkaline Phosphatase Troponin I High Sens B-Natriuretic Peptide Total Protein Albumin TSH COVID-19 ([facility]) COVID-19 Clin Com 03/12/22 03/12/22 06:33 07:51 MCV MCH MCHC RDW Plt Count MPV Immature Gran % (Auto) Neut % (Auto) Lymph % (Auto) [place] % (Auto) Eos % (Auto) Baso % (Auto) Lymph # (Auto) [place] # (Auto) Eos # (Auto) Baso # (Auto) Abs Immat Gran (auto) Absolute Neuts (auto) Absolute Nucleated RBC Nucleated RBC % (auto) PT INR D-Dimer High Sensitivty VBG pH VBG pCO2 VBG pO2 VBG HCO3 VBG O2 Saturation VBG Base Excess Anion Gap Estim Creat Clear Calc Estimated GFR POC Glucose 139 H Random Glucose Lactic Acid Lactic Acid F/U @ 2Hr Calcium Magnesium Total Bilirubin Direct Bilirubin AST ALT Alkaline Phosphatase Troponin I High Sens 102.3 H* B-Natriuretic Peptide Total Protein Albumin TSH COVID-19 ([facility]) COVID-19 Clin Com Assessment and Plan (1) Elevated troponin: Status: Acute Plan 67-year-old female with past medical history of CHF with reduced ejection fraction, CAD, diabetes, hypertension, endometrial cancer, presented to the hospital with complaints of chest pain and shortness of breath found to be in CHF and new onset AFib new onset AFib with RVR dig, eliquis npo after midnight for TERRANCE/CV acute on chronic systolic CHF IV lasix cardio eval restart coreg when bp allows plan to switch anna/arb to valsartan when bp allows lactic acidosis and hypotension due to chf and afib, not sepsis type II NSTEMI with underlyine CAD asa, statin, eliquis restart coreg when bp allows DM insulin jardiance HLD continue staitn HTN now relatively hypotensive holding lisinopril/hctz, coreg morbid obesity weight loss recommended DVT ppx: eliquis full code reason for continued hospitalization: iv diuresis, uncontrolled afib Time Spent With Patient Time: Total time managing care of this patient today ____ minutes. Quality Stroke Does the patient have a stroke diagnosis?: No VTE Prior VTE?: No VTE Risk Level:: Medical - moderate - high VTE Device Contraindication: Treatment Not Indicated VTE Drug Contraindication: N/A - Med Ordered
--- NOTE | 2022-03-12 09:16 | PC.NURSE ---
Per Dr Valdez no Heaprin gtt at this time. ELiquis and Digoxin to be added
--- NOTE | 2022-03-12 09:50 | PHA.MEDREC ---
Pharmacy Consult ? Medication Reconciliation Pharmacy has completed the medication reconciliation. Called pharmacy, spoke to patient, and cross-referenced claim history to verify. Family member at bedside as well to help confirm meds.
[2022-03-12] MEDS: Empagliflozin 25 MG TABLET PO (09:57)
[2022-03-12] MEDS: Apixaban 5 MG TABLET PO ×2 (09:57→20:54)
[2022-03-12] MEDS: Digoxin 0.5 MG/2 ML AMPUL 0.25 MG IVPUSH ×3 (09:57→20:57)
--- NOTE | 2022-03-12 10:05 | PC.NURSE ---
Medicated as charted. Voided 700ml thus far s/p Lasix given.
--- NOTE | 2022-03-12 10:30 | PC.NURSE ---
Daughter left bedside contact Justyna [phone] and of pt Edward [phone]
[2022-03-12] MEDS: iohexoL 350 MG/ML 100 ML INFUS..BTL IV (12:51)
[2022-03-12 13:42] LABS: Glucose, Whole Blood 121 mg/dL (60-115)
--- NOTE | 2022-03-12 14:59 | MHC.CM.ED ---
Met with patient in regards to discharge planning. Patient lives with her , son and daughter. Ambulates independently and had no services prior to coming to the hospital. PCP verified. Patient has a HCP at home and will attempt to obtain a copy. Patient received 2 Moderna vaccines but no boosters. Obs notice explained and signed. Patient's family will transport patient home when medically stable. Continue to monitor for d/c needs.
[2022-03-12 16:29] LABS: Glucose, Whole Blood 193 mg/dL (60-115)
[2022-03-12] MEDS: 0.9 % Sodium Chloride Flush 3 ML SYRINGE IVFLUSH (17:25)
[2022-03-12] MEDS: Insulin Lispro 100 UNIT/ML 3 ML VIAL SUBCUT ×2 (17:25→20:55)
[2022-03-12 20:06] LABS: Glucose, Whole Blood 190 mg/dL (60-115)
[2022-03-13] VITALS (12 sets, daily range): BP systolic 96–129; BP diastolic 37–90; PULSE 75–114; RESP 16–24; TEMP 36.1–36.8; O2SAT 92–100
[2022-03-13] MEDS: 0.9 % Sodium Chloride Flush 3 ML SYRINGE IVFLUSH ×3 (01:39→18:21)
[2022-03-13 06:35] LABS: Hemoglobin 12.9 g/dl (12.0-16.0); Mean Corpuscular HGB Conc 31.5 g/dl (31.0-35.0); Mean Corpuscular Hemoglobin 28.9 pg (27.0-33.0); Mean Corpuscular Volume 91.7 fL (80.0-98.0); Mean Platelet Volume 10.3 fL (9.4-12.3); Platelet Count 245 X10*3/uL (160-400); Red Blood Count 4.47 X10*6/uL (4.20-5.50); Red Cell Distribution Width 14.6 % (11.0-16.0); White Blood Count 7.1 X10*3/uL (4.8-10.8)
[2022-03-13 07:22] LABS: Alanine Aminotransferase 16 U/L (0-31); Albumin Level 3.8 g/dL (3.5-5.0); Alkaline Phosphatase 106 U/L (39-117); Anion Gap 15 (12-20); Aspartate Amino Transferase 10 U/L (5-31); Bilirubin Total 1.6 mg/dL (0.0-1.0); Blood Urea Nitrogen 26 mg/dL (9-16); Calcium 9.4 mg/dL (8.4-10.2); Chloride 101 mmol/L (96-108); Creatinine Clr Calc Pharmacy 58.6; Estimated Glomerular Filt Rate 45; Glucose Fasting 145 mg/dL (60-99); Potassium 4.7 mmol/L (3.3-5.1); Sodium 139 mmol/L (135-145); Total Protein 6.7 g/dL (6.5-8.0)
[2022-03-13 07:44] LABS: Glucose, Whole Blood 123 mg/dL (60-115)
[2022-03-13] MEDS: Apixaban 5 MG TABLET PO ×2 (07:51→20:30)
[2022-03-13] MEDS: Empagliflozin 25 MG TABLET PO (07:51)
[2022-03-13] MEDS: Furosemide 40 MG/4 ML VIAL IVPUSH ×2 (07:51→18:21)
[2022-03-13 08:06] LABS: Carbon Dioxide 27 mmol/L (22-29)
--- NOTE | 2022-03-13 08:32 | HO.PM.IMPN ---
Subjective Subjective Date of Service: 03/13/22 Interval History: cc: sob, chest pain interval history: persistent AF with sings of heart failure Review of Systems no palpitation no chest pain Physical Exam Vital Signs: Vital Signs: Last Vital Signs Temp 97.2 F 03/13/22 07:18 Pulse 114 H 03/13/22 07:18 Resp 16 03/13/22 07:18 BP 118/90 H 03/13/22 07:18 Pulse Ox 96 03/13/22 07:18 O2 Del Method 03/13/22 07:18 O2 Flow Rate 2 03/12/22 10:04 BMI result Body Mass Index 42.5 Const: Other: Appearance: Alert. Oriented X3. No acute distress. Eyes: Pupils equal, round and reactive to light. ENT: Pharynx normal. Neck: Normal inspection. Neck supple. No lymph nodes noted. No crepitus CVS:iregular. Pulses normal. Normal S1 and S2, +2 pitting edema bilaterally Respiratory: Bilateral crackles, no wheezing Abdomen: Soft and nontender. No rigidity. No distention. Skin: Skin warm and dry. Normal skin color. Normal skin turgor. Neuro: Oriented X 3. no Focal deficit Objective Data Active Medications Acetaminophen (Acetaminophen 325 Mg Tablet) 650 mg PO Q6H PRN PRN Reason: Pain, Mild (Pain Scale 1-3) Apixaban (Apixaban 5 Mg Tablet) 5 mg PO BID [facility] Last Admin: 03/13/22 07:51 Dose: 5 mg Documented By: JAGJIT Dextrose (Dextrose 50 % 25 Gm/50 Ml Syringe) 25 gm IVPUSH Q15M PRN; Protocol PRN Reason: per Hypoglycemia Standing Ord. Docusate Sodium (Docusate Sodium 100 Mg Capsule) 100 mg PO DAILY PRN PRN Reason: Constipation Empagliflozin (Empagliflozin 25 Mg Tablet) 25 mg PO DAILY [facility] Last Admin: 03/13/22 07:51 Dose: 25 mg Documented By: JAGJIT Furosemide (Furosemide 40 Mg/4 Ml Vial) 40 mg IVPUSH DAILY [facility]; Protocol Last Admin: 03/13/22 07:51 Dose: 40 mg Documented By: JAGJIT Glucose (Glucose Gel 15 Gm Gel..Gram.) 15 gm PO Q15M PRN; Protocol PRN Reason: per Hypoglycemia Standing Ord. Insulin Human Lispro (Insulin Lispro 100 Unit/Ml 3 Ml Vial) 0 unit SUBCUT QIDACHS [facility]; Protocol Last Admin: 03/13/22 07:46 Dose: Not Given Documented By: JAGJIT Non-Admin Reason: No Insulin Coverage Ondansetron HCl (Ondansetron Hcl 4 Mg/2 Ml Vial) 4 mg IVPUSH Q8H PRN PRN Reason: Nausea and Vomiting Pharmacy Consult (Consult Rx Perform Med Rec) 1 each MISCELLANE ONCE PRN PRN Reason: Consult order Sodium Chloride (0.9 % Sodium Chloride Flush 3 Ml Syringe) 3 ml IVFLUSH [facility] Last Admin: 03/13/22 07:51 Dose: 3 ml Documented By: JAGJIT Labs CBC & Chem 7: 03/13/22 05:49 03/13/22 05:49 Labs: Laboratory Results - last 24 hr 03/12/22 03/12/22 03/12/22 13:39 16:24 20:00 MCV MCH MCHC RDW Plt Count MPV Absolute Nucleated RBC Nucleated RBC % (auto) Anion Gap Estim Creat Clear Calc Estimated GFR POC Glucose 121 H 193 H 190 H Random Glucose Fasting Glucose Calcium Total Bilirubin AST ALT Alkaline Phosphatase Total Protein Albumin 03/13/22 03/13/22 03/13/22 05:49 05:49 07:18 MCV 91.7 MCH 28.9 MCHC 31.5 RDW 14.6 Plt Count 245 MPV 10.3 Absolute Nucleated RBC 0.000 Nucleated RBC % (auto) 0.0 Anion Gap 15 Estim Creat Clear Calc 58.6 Estimated GFR 45 POC Glucose 123 H Random Glucose TNP Fasting Glucose 145 H Calcium 9.4 Total Bilirubin 1.6 H AST 10 ALT 16 Alkaline Phosphatase 106 D Total Protein 6.7 Albumin 3.8 Microbiology Microbiology Results: Microbiology 03/12/22 03:08 Blood Culture - Preliminary Blood - Venous No growth after 24 hours. 03/12/22 03:08 Blood Culture - Preliminary Blood - Venous No growth after 24 hours. Assessment and Plan (1) Elevated troponin: Status: Acute (2) Acute exacerbation of CHF (congestive heart failure): Status: Acute (3) Atrial fibrillation, new onset: Status: Acute Assessment and Plan: p her NPO past midnight Plan 67-year-old female with past medical history of CHF with reduced ejection fraction, CAD, diabetes, hypertension, endometrial cancer, presented to the hospital with complaints of chest pain and shortness of breath found to be in CHF and new onset AFib new onset AFib with RVR diglisa npo after midnight for TERRANCE/CV acute on chronic systolic CHF IV lasix cardio following restart coreg when bp allows plan to switch anna/arb to valsartan when bp allows lactic acidosis and hypotension due to chf and afib, not sepsis type II NSTEMI with underlyine CAD asa, statin, eliquis restart coreg when bp allows DM insulin jardiance HLD continue staitn HTN now relatively hypotensive holding lisinopril/hctz, coreg morbid obesity weight loss recommended DVT ppx: eliquis full code reason for continued hospitalization: iv diuresis, uncontrolled afib Time Spent With Patient Time: Total time managing care of this patient today ____ minutes. Quality Stroke Does the patient have a stroke diagnosis?: No VTE Prior VTE?: No VTE Risk Level:: Medical - moderate - high VTE Device Contraindication: Treatment Not Indicated VTE Drug Contraindication: N/A - Med Ordered
[2022-03-13 09:45] LABS: Glucose, Whole Blood 143 mg/dL (60-115)
--- NOTE | 2022-03-13 10:31 | CA_ITS ---
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 1. Technically difficult study due to patient's clinical status 2. No left atrial thrombi or masses including left atrial appendage 3. Severely reduced LV ejection fraction 10-15% 4. Severely dilated left atrium 5. No significant abnormality of cardiac valvular Dopplers 6. No gross pericardial effusion Findings Procedure Information Consent was obtained prior to the procedure. Pre TERRANCE oral cavity was checked and revealed mild overcrowding. The adult 3D probe was passed with no difficulty. This was a technically limited study. Left Ventricle The left ventricular systolic function is severely decreased. The visually estimated ejection fraction is between 10-15%. Diastolic function is indeterminate on the basis of available data. No intra ventricular thrombi noted Right Ventricle Mildly increased right ventricular cavity size. Atria Both atria are normal in size. There is no evidence of interatrial shunt. there smoke formation seen in the left atrium. The left atrial appendage was initially difficult to visualize but after sudden other angulation left atrial appendage appeared to be free of any thrombi or masses. The left atrial appendage ejection velocity is reduced. The right upper and lower pulmonary vein drain normally to left atrium. The left upper pulmonary was identified. No left atrial thrombi or masses seen. Right atrium was free of any thrombi or masses. IVC drains normally into the right atrium. The SVC was not well identified. Aortic Valve There is mild calcification of the aortic valve. There is no aortic valve stenosis. There is no evidence of a mass on the aortic valve. There is no aortic valve regurgitation. Mitral Valve There is mild anterior and posterior mitral leaflet thickening. There is trace mitral valve regurgitation. There is no mitral valve stenosis. There is no mass noted on the mitral valve. Pulmonic Valve The pulmonic valve was not well visualized. Tricuspid Valve Likely normal tricuspid valve structure and function. There is no evidence of a mass on the tricuspid valve. Great Vessels The pulmonary artery was not well visualized. Moderate plaque is seen in the arch and descending thoracic aorta. Venous The inferior vena cava is normal in size. Pericardium/Pleural There is no evidence of pericardial effusion. Prior Study Comparison No prior study available for comparison. Updated by Diego Valdez on 12:43 PM with Status of Final Diego Valdez MD electronically signed on 03/14/2022 12:43:18 PM with status of Final
--- NOTE | 2022-03-13 10:33 | MHC.SHP ---
Pre-Procedural Eval Section A Date of Service: 03/13/22 The patient is an INPATIENT: Yes Changes since office visit: Yes New Medical Problems, Yes Changes in Medication and Yes Patient answered all questions; No Cold of Flu in the past 2 weeks The History & Physical has been completed within 30 days and I have reviewed it.: Yes Section B Chief Complaint: CHF NEW ONSET A FIB CHEST PAIN Allergies: Allergies Allergy/AdvReac Type Severity Reaction Status Date / Time red dye [Red Dye] Allergy Severe HIVES,THROAT Verified 01/28/22 13:19 CLOSES FROM RED FOOD DYE Plan I have reviewed the history and physical and performed a pertinent physical examination on my patient. No changes have occurred unless specified. Time Spent With Patient Time: Total time managing care of this patient today ____ minutes.
--- NOTE | 2022-03-13 11:18 | ECG_ITS ---
Test Reason : S/P Cardioversion Blood Pressure : / mmHG Vent. Rate : 078 BPM Atrial Rate : 078 BPM P-R Int : 186 ms QRS Dur : 118 ms QT Int : 400 ms P-R-T Axes : 060 -26 148 degrees QTc Int : 456 ms Sinus rhythm with Premature atrial complexes Minimal voltage criteria for LVH, may be normal variant ( [place] product ) Possible Anterior infarct , age undetermined ST & T wave abnormality, consider lateral ischemia Abnormal ECG When compared with ECG of 12-MAR-2022 02:25, Sinus rhythm has replaced Atrial fibrillation Vent. rate has decreased BY 54 BPM Referred By: Diego Valdez Electronically Signed By:DIEGO VALDEZ MD
[2022-03-13] MEDS: Amiodarone/Dextrose 150 MG/100 ML PLAST..BAG 600 MG IV (12:22)
[2022-03-13] MEDS: Amiodarone HCL 900 MG in 0.9 % Sodium Chloride 500 ML 34.53 MG IVCONT (12:34)
--- NOTE | 2022-03-13 12:36 | HO.CARDIVERS ---
Cardioversion Procedure Note Cardioversion Date of Procedure: Today Ordering Provider: Myself Performing Provider: Myself Indication for Procedure: Persistent atrial fibrillation with severe LV systolic dysfunction and heart failure Pre-Op Diagnosis: Same Post-Op Diagnosis: Sinus rhythm with heart failure and severe LV systolic dysfunction Performed with Transesophageal Echo: Yes TERRANCE findings (if TERRANCE Performed): Dictated separately, no left atrial appendage clot noted History: See my consult note Consent: Verbal and Written consent was obtained from the patient before starting the procedure and confirming NPO status and oral anticoagulation use. The patient was made aware of the risk of synchronized cardioversion including benefits and alternatives Procedure: After consent obtained, cardioversion pads were attached antro posterior and the patient was sedated by the anesthesia team. Once adequate sedation achieved, patient was delivered 200 joules of biphasic synchronized energy x2. After 1st attempt patient was still in atrial fibrillation after 2nd attempt converted to sinus rhythm Complications: Please see anesthesia note Impression: Successful conversion to sinus rhythm Recommendations: 1. Continue p.o. Eliquis 2. Will start on IV amiodarone drip to maintain rhythm 3. Continue IV diuresis and will initiate heart failure regimen once more stable 4. Twelve lead EKG
--- NOTE | 2022-03-13 12:39 | P.PNCA_ITS ---
Subjective Subjective Date of Service: 03/13/22 Principal diagnosis: CHF, atrial fibrillation Interval history: Yesterday echocardiogram show further worsening of LV systolic function. Patient remains this morning starting him shortness of breath. Did receive Las ix and has to go to the bathroom and diuresing. Blood pressure is stable. Underwent TERRANCE guided cardioversion, with no left atrial appendage clot at responded to synchronized cardioversion x2 attempts. Patient overall tolerated the procedure well Review of Systems Cardiovascular: Denies chest pain, Reports rapid heart rate, Denies lig htheadedness, Denies Loss of Consciousness, Reports palpitations, Reports dyspnea and Reports orthopnea Respiratory: Reports cough and Reports dyspnea Gastrointestinal: Reports no additional gastrointestinal complaints Reports system reviewed and no additional complaints, except as documented Psychiatric: Reports no additional psychiatric complaints Endocrine: Reports no additional endocrine complaints and Reports palpitations Hematologic/Lymphatic: Reports no additional hematologic/lymphatic complaints Physical Exam Vital Signs: Last Vital Signs Temp 97.4 F 03/13/22 12:20 Pulse 76 03/13/22 12:35 Resp 16 03/13/22 12:35 BP 107/64 03/13/22 12:35 Pulse Ox 96 03/13/22 12:35 O2 Del Method 03/13/22 12:35 O2 Flow Rate 2 03/13/22 11:50 BMI result Body Mass Index 42.5 Const General: cooperative and in distress mild and respiratory Nutritional Appearance: obese Orientation/consciousness: patient oriented x3 Neck Neck: Yes trachea midline and Yes supple Cardio Rate: regular rate Rhythm: regular rhythm Heart sounds: S1 normal heart sound present, S2 normal heart sound present, no click, Gallop heart sound present, no murmurs and no rubs GI Inspection: Yes obesity Auscultation: normal bowel sounds Skin General skin exam: no rashes or lesions noted Neuro General: patient oriented x3 and no focal motor deficits Extrem General: No clubbing, No cyanosis and Yes edema Objective Labs and Meds Result diagrams: 03/13/22 05:49 03/13/22 05:49 Lab results: Laboratory Results - last 24 hr 03/12/22 03/12/22 03/12/22 13:39 16:24 20:00 WBC RBC Hgb Hct MCV MCH MCHC RDW Plt Count MPV Absolute Nucleated RBC Nucleated RBC % (auto) Sodium Potassium Chloride Carbon Dioxide Anion Gap BUN Creatinine Estim Creat Clear Calc Estimated GFR POC Glucose 121 H 193 H 190 H Random Glucose Fasting Glucose Calcium Total Bilirubin AST ALT Alkaline Phosphatase Total Protein Albumin 03/13/22 03/13/22 03/13/22 05:49 05:49 07:18 WBC 7.1 RBC 4.47 Hgb 12.9 Hct 41.0 MCV 91.7 MCH 28.9 MCHC 31.5 RDW 14.6 Plt Count 245 MPV 10.3 Absolute Nucleated RBC 0.000 Nucleated RBC % (auto) 0.0 Sodium 139 Potassium 4.7 Chloride 101 Carbon Dioxide 27 Anion Gap 15 BUN 26 H Creatinine 1.20 Estim Creat Clear Calc 58.6 Estimated GFR 45 POC Glucose 123 H Random Glucose TNP Fasting Glucose 145 H Calcium 9.4 Total Bilirubin 1.6 H AST 10 ALT 16 Alkaline Phosphatase 106 D Total Protein 6.7 Albumin 3.8 03/13/22 09:41 WBC RBC Hgb Hct MCV MCH MCHC RDW Plt Count MPV Absolute Nucleated RBC Nucleated RBC % (auto) Sodium Potassium Chloride Carbon Dioxide Anion Gap BUN Creatinine Estim Creat Clear Calc Estimated GFR POC Glucose 143 H Random Glucose Fasting Glucose Calcium Total Bilirubin AST ALT Alkaline Phosphatase Total Protein Albumin Imaging Radiologist's impression: Impressions Chest CTA 03/12/22 12:49 IMPRESSION: No evidence of pulmonary embolism. Enlarged heart. Bilateral pleural effusions. VTE: negative Progress Note: A&P Assessment and plan (1) Acute exacerbation of CHF (congestive heart failure): Status: Acute Assessment and Plan: Acute systolic heart failure with further worsening LV systolic function with appears to be with ischemic and not tachycardia mediated related to persistent atrial fibrillation. Continues to be in heart failure. Continue IV diuresis. Underwent TERRANCE guided cardioversion to achieve sinus rhythm which has been successfully achieved. Will continue maintain rhythm. Strict intake and output chart needs to be pursued. Continue monitor electrolytes an EKG. If remains hemodynamically stable later today start low-dose valsartan 20 mg b.i.d. continue Jardiance. Heart failure education to be provided. 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 Status post cardioversion. Start amiodarone drip to maintain rhythm. Will follow-up echocardiogram few weeks time. Continue full oral anticoagulation Eliquis. Will follow with you Time Spent With Patient Time: Total time managing care of this patient today ____ minutes. Progress Note: Quality Stroke Does the patient have a stroke diagnosis?: No Procedures Date of Service Date of Service: 03/13/22
--- NOTE | 2022-03-13 14:00 | MHC.CM.PN ---
Patient underwent a Cardioversion today and is now on a Amiodarone Drip and IV Lasix and not yet medically cleared for dc. Home is the goal and CM will continue to follow.
[2022-03-13 14:55] LABS: Glucose, Whole Blood 129 mg/dL (60-115)
[2022-03-13 16:16] LABS: Glucose, Whole Blood 144 mg/dL (60-115)
[2022-03-13 20:17] LABS: Glucose, Whole Blood 255 mg/dL (60-115)
[2022-03-13] MEDS: Insulin Lispro 100 UNIT/ML 3 ML VIAL SUBCUT (20:30)
[2022-03-14] VITALS (7 sets, daily range): BP systolic 84–119; BP diastolic 44–72; PULSE 71–78; RESP 16–20; TEMP 36.1–36.8; O2SAT 92–98
--- NOTE | 2022-03-14 | ECG_ITS ---
Test Reason : RHYTHM Blood Pressure : / mmHG Vent. Rate : 074 BPM Atrial Rate : 074 BPM P-R Int : 180 ms QRS Dur : 118 ms QT Int : 422 ms P-R-T Axes : 076 -30 145 degrees QTc Int : 468 ms Normal sinus rhythm Left axis deviation Minimal voltage criteria for LVH, may be normal variant ( [place] product ) Anterior infarct (cited on or before 13-MAR-2022) ST & T wave abnormality, consider lateral ischemia Abnormal ECG When compared with ECG of 13-MAR-2022 11:49, Premature atrial complexes are no longer Present Referred By: Imelda Harris Electronically Signed By:ESVIN ERICKSON MD
[2022-03-14] MEDS: Amiodarone HCL 900 MG in 0.9 % Sodium Chloride 500 ML 34.53 MG IVCONT ×2 (02:22→20:36)
[2022-03-14 07:44] LABS: Glucose, Whole Blood 158 mg/dL (60-115)
[2022-03-14] MEDS: Insulin Lispro 100 UNIT/ML 3 ML VIAL SUBCUT ×4 (09:08→20:28)
[2022-03-14] MEDS: Furosemide 40 MG/4 ML VIAL IVPUSH (09:08)
[2022-03-14] MEDS: Empagliflozin 25 MG TABLET PO (09:08)
[2022-03-14] MEDS: 0.9 % Sodium Chloride Flush 3 ML SYRINGE IVFLUSH (09:08)
[2022-03-14] MEDS: Apixaban 5 MG TABLET PO ×2 (09:08→20:28)
--- NOTE | 2022-03-14 10:15 | HO.POSTANES ---
Post Anesthesia Evaluation Post Anesthesia Evaluation Vital Signs: Vital Signs Temp Pulse Resp BP Pulse Ox O2 Del Method 03/14/22 07:59 98.2 F 71 19 119/63 94 Room Air 03/14/22 03:36 97.0 F 76 20 95/54 L 92 Room Air 03/14/22 01:09 94/46 L 03/14/22 00:00 97.7 F 73 20 84/44 L 94 Room Air Anesthesia: General Mental Status: Awake Pain Control: Satisfactory Nausea/Vomiting: None Hydration: Adequate Anesthesia-Related Issues: No Anes. Related Issues
[2022-03-14 10:24] LABS: Anion Gap 14 (12-20); Blood Urea Nitrogen 24 mg/dL (9-16); Calcium 8.5 mg/dL (8.4-10.2); Carbon Dioxide 25 mmol/L (22-29); Chloride 102 mmol/L (96-108); Creatinine Clr Calc Pharmacy 54.5; Estimated Glomerular Filt Rate 41; Glucose Random 249 mg/dL (60-115); Potassium 4.1 mmol/L (3.3-5.1); Sodium 137 mmol/L (135-145)
[2022-03-14] MEDS: carvediloL 3.125 MG TABLET PO (10:28)
[2022-03-14] MEDS: Gabapentin 100 MG CAPSULE PO ×2 (10:28→20:27)
[2022-03-14] MEDS: Atorvastatin Calcium 40 MG TABLET PO (10:28)
[2022-03-14 10:30] LABS: B Type Natriuretic Peptide 293 pg/mL (<100)
--- NOTE | 2022-03-14 11:13 | P.PNCA_ITS ---
Subjective Subjective Date of Service: 03/14/22 <NUNO Rivas - Last Filed: 03/14/22 11:59> 03/14/22 <Diego Valdez MD - Last Filed: 03/14/22 12:16> Principal diagnosis: CHF, atrial fibrillation <NUNO Rivas - Last Filed: 03/14/22 11:59> Interval history: Seen at 1030. Today she reports feeling Much better than admit. She says breathing is almost back to normal. She was able to sleep well in laying down position. Abdomen feeling less bloated and legs are less swollen. No chest pains. No longer feeling heart palpitations. No dizziness. Tele showing SR, brief bursts of atrial tach, average rates 70-80s. IV amiodarone drip infusing. <NUNO Rivas - Last Filed: 03/14/22 11:59> Review of Systems Review of Systems as above <NUNO Rivas - Last Filed: 03/14/22 11:59> Yes all other systems are reviewed and are negative <NUNO Rivas - Last Filed: 03/14/22 11:59> Physical Exam Vital Signs: Last Vital Signs Temp 98.2 F 03/14/22 07:59 Pulse 71 03/14/22 07:59 Resp 19 03/14/22 07:59 BP 119/63 03/14/22 07:59 Pulse Ox 94 03/14/22 07:59 O2 Del Method 03/14/22 07:59 O2 Flow Rate 2 03/13/22 11:50 BMI result Body Mass Index 42.5 <NUNO Rivas - Last Filed: 03/14/22 11:59> Const General: cooperative, comfortable and no acute distress <NUNO Rivas - Last Filed: 03/14/22 11:59> Orientation/consciousness: patient oriented x3 <NUNO Rivas - Last Filed: 03/14/22 11:59> Neck Neck: Yes normal visual inspection <NUNO Rivas - Last Filed: 03/14/22 11:59> Resp Effort & Inspection: normal respiratory effort <NUNO Rivas - Last Filed: 03/14/22 11:59> Auscultation: clear to auscultation bilaterally, no crackles, no rales, no rhonchi and no wheezes <Imelda HarrisALFREDOMercedes - Last Filed: 03/14/22 11:59> Cardio Rate: regular rate <Imelda Harris NUNO - Last Filed: 03/14/22 11:59> Rhythm: regular rhythm <Imelda HarrisILEANAJosé Miguel - Last Filed: 03/14/22 11:59> Heart sounds: S1 normal heart sound present, S2 normal heart sound present, no gallops, no murmurs and no rubs <Imelda HarrisILEANAChing - Last Filed: 03/14/22 11:59> Skin General skin exam: no rashes or lesions noted <Imelda HarrisILEANAChing - Last Filed: 03/14/22 11:59> Neuro General: patient oriented x3 <Imelda HarrisILEANAJosé Miguel - Last Filed: 03/14/22 11:59> Extrem Other: mildly pitting edema noted in each lower leg and ankle region. She states much improved <Imelda HarrisILEANAChing - Last Filed: 03/14/22 11:59> Psych Appearance: grossly normal <Imelda HarrisILEANAChing - Last Filed: 03/14/22 11:59> Mental Status: mental status grossly normal <Imelda HarrisILEANAChing - Last Filed: 03/14/22 11:59> Speech and movement: Normal speech and movement present <Imelda HarrisILEANAJosé Miguel - Last Filed: 03/14/22 11:59> Objective Labs and Meds Result diagrams: : 03/13/22 05:49 03/14/22 09:33 <Imelda HarrisALFREDOC - Last Filed: 03/14/22 11:59> Lab results: Laboratory Results - last 24 hr 03/13/22 03/13/22 03/13/22 13:13 15:55 19:35 Sodium Potassium Chloride Carbon Dioxide Anion Gap BUN Creatinine Estim Creat Clear Calc Estimated GFR POC Glucose 129 H 144 H 255 H Random Glucose Calcium B-Natriuretic Peptide 1203/14/22 03/14/22 07:38 09:33 09:33 Sodium 137 Potassium 4.1 Chloride 102 Carbon Dioxide 25 Anion Gap 14 BUN 24 H Creatinine 1.29 Estim Creat Clear Calc 54.5 Estimated GFR 41 POC Glucose 158 H Random Glucose 249 H Calcium 8.5 D B-Natriuretic Peptide 293 H <NUNO Rivas - Last Filed: 03/14/22 11:59> Progress Note: A&P Assessment and plan (1) Acute exacerbation of CHF (congestive heart failure): Status: Acute <NUNO Rivas - Last Filed: 03/14/22 11:59> Assessment and Plan: Admit with 1 week of leg swelling, increased sob and palpitations. Found to have acute systolic HF, new afib RVR. Echo showed EF 10-15%, WMA consistent with ischemic CMP. Prior known EF 35-40%. Diuresed with IV lasix. I+Os not accurately measured. Pt reports urinating large amounts in bathroom without it being measured. Clinically much improved. BNP initially 410 and down to 293 today. Sat 94% on RA. She reports breathing unlabored, leg edema much less. On exam she has some rales noted in right base. BP on low side. K 4.1, Cr 1.29. Will reduce lasix to 40mg IV once daily, from BID. Will add Entresto BID for HF management. Continue Jardiance. If BP allows will plan on adding Aldactone tomorrow. Check BMP, BNP in am. We will follow <NUNO Rivas - Last Filed: 03/14/22 11:59> Admit with 1 week of leg swelling, increased sob and palpitations. Found to have acute systolic HF, new afib RVR. Echo showed EF 10-15%, WMA consistent with ischemic CMP. Prior known EF 35-40%. Diuresed with IV lasix. I+Os not accurately measured. Pt reports urinating large amounts in bathroom without it being measured. Clinically much improved. BNP initially 410 and down to 293 today. Sat 94% on RA. She reports breathing unlabored, leg edema much less. On exam she has some rales noted in right base. BP on low side. K 4.1, Cr 1.29. W ill reduce lasix to 40mg IV once daily, from BID. Will add Entresto BID for HF management. Continue Jardiance. If BP allows will plan on adding Aldactone tomorrow. Check BMP, BNP in am. We will follow Patient seen and examined. Case discussed with Imelda Harris. Patient heart failure syndrome compared to yesterday before cardioversion has significantly improved since cardioversion. She is feeling a lot better. Her breathing is improved. Can switch to Lasix once a day 40 mg IV and probably plan for switch to p.o. Lasix tomorrow. Initiate neurohormonal modulation with low-dose Entresto. Will hold off on Aldactone for now given her low blood pressure. Once remains euvolemic will also add beta-blockers to her regimen. Heart failure management was discussed. Eventually require ischemic workup and possible revascularization. Will continue to follow with her. Continue rhythm management as below. Strict intake and output chart. Follow renal function and BNP tomorrow. <Diego Valdez MD - Last Filed: 03/14/22 12:16> (2) Atrial fibrillation, new onset: Status: Acute <NUNO Rivas - Last Filed: 03/14/22 11:59> Assessment and Plan: New finding of afib RVR this admit. EF further reduced which could be tachycardia mediated. She underwent a TERRANCE CVR yesterday with successful conversion to SR, after 2 shocks. She was then started on Amiodarone drip to help maintain rhythm control. Tele shows SR, brief runs of atrial tach, average rate in 70-80s. Will start on Amiodarone po load of 400mg bid for 2 weeks, then plan to reduce dose to 200mg once daily. 1 hour after her first PO dose, will d/c the amiodarone drip. Continue to hold home carvedilol as BP on low side. Continue Eliquis for anticoagulation. Ongoing tele monitoring. We will plan for a limited echo in a few weeks to reassess EF. <NUNO Rivas - Last Filed: 03/14/22 11:59> New finding of afib RVR this admit. EF further reduced which could be tachycardia mediated. She underwent a TERRANCE CVR yesterday with successful conversion to SR, after 2 shocks. She was then started on Amiodarone drip to help maintain rhythm control. Tele shows SR, brief runs of atrial tach, average rate in 70-80s. Will start on Amiodarone po load of 400mg bid for 2 weeks, then plan to reduce dose to 200mg once daily. 1 hour after her first PO dose, will d/c the amiodarone drip. Continue to hold home carvedilol as BP on low side. Continue Eliquis for anticoagulation. Ongoing tele monitoring. We will plan for a limited echo in a few weeks to reassess EF. Patient status post TERRANCE guided cardioversion yesterday. Currently on amiodarone drip. Switch to p.o. amiodarone 400 mg b.i.d. for 2 weeks followed by 200 mg daily. Continue full oral anticoagulation with Eliquis. Has done remarkably well with rhythm control approach will continue to pursue the same. Will continue to follow with you <Diego Valdez MD - Last Filed: 03/14/22 12:16> (3) Ischemic cardiomyopathy: Status: Acute <NUNO Rivas - Last Filed: 03/14/22 11:59> Assessment and Plan: Cardiac cath 11/06/21 showing significant CAD: LAD proximal and mid 50% stenosis, LCx mid 100% [employer], R PDA 70% stenosis, Ramus 65% stenosis. Echo on 02/06 showed EF 35-40%, basal inferior, mid inferior and basal inferolateral ak inetic. She had been appropriate medical management as outpt and followed by Dr Storey. Then developed Afib and HF as above. - for her CAD does not need Aspirin as she is now on eliquis, continue to hold Carvedilol at present. Will restart of atorvastatin, LFTs are normal. <NUNO Rivas - Last Filed: 03/14/22 11:59> (4) Elevated troponin: Status: Acute <NUNO Rivas - Last Filed: 03/14/22 11:59> Assessment and Plan: Elevation on admit most likely secondary is setting of HF, Afib RVR. She does have known CAD. No reports of CP <NUNO Rivas - Last Filed: 03/14/22 11:59> (5) Coronary arteriosclerosis: Status: Acute <NUNO Rivas - Last Filed: 03/14/22 11:59> Time Spent With Patient Time: Total time managing care of this patient today ___24_ minutes. <NUNO Rivas - Last Filed: 03/14/22 11:59> Progress Note: Quality Stroke Does the patient have a stroke diagnosis?: No <NUNO Rivas - Last Filed: 03/14/22 11:59> Procedures Date of Service Date of Service: 03/14/22 <NUNO Rivas - Last Filed: 03/14/22 11:59>
[2022-03-14 11:29] LABS: Glucose, Whole Blood 230 mg/dL (60-115)
--- NOTE | 2022-03-14 12:41 | P.PNIM_ITS ---
Subjective Subjective Date of Service: 03/14/22 Interval History: cc: sob, chest pain interval history: in normal sinus post cardioversion, no sob Review of Systems no palpitation no chest pain Physical Exam Vital Signs: Vital Signs: Last Vital Signs Temp 97.0 F 03/14/22 11:40 Pulse 76 03/14/22 11:40 Resp 19 03/14/22 11:40 BP 104/72 03/14/22 11:40 Pulse Ox 95 03/14/22 11:40 O2 Del Method 03/14/22 11:40 O2 Flow Rate 2 03/13/22 11:50 BMI result Body Mass Index 42.5 Const: Other: Appearance: Alert. Oriented X3. No acute distress. Eyes: Pupils equal, round and reactive to light. ENT: Pharynx normal. Neck: Normal inspection. Neck supple. No lymph nodes noted. No crepitus CVS:iregular. Pulses normal. Normal S1 and S2, +2 pitting edema bilaterally Respiratory: Bilateral crackles, no wheezing Abdomen: Soft and nontender. No rigidity. No distention. Skin: Skin warm and dry. Normal skin color. Normal skin turgor. Neuro: Oriented X 3. no Focal deficit Objective Data Active Medications Acetaminophen (Acetaminophen 325 Mg Tablet) 650 mg PO Q6H PRN PRN Reason: Pain, Mild (Pain Scale 1-3) Apixaban (Apixaban 5 Mg Tablet) 5 mg PO BID [facility] Last Admin: 03/14/22 09:08 Dose: 5 mg Documented By: GLENDY Aspirin (Aspirin Enteric Coated 81 Mg Tablet.) 81 mg PO DAILY [facility] Atorvastatin Calcium (Atorvastatin Calcium 40 Mg Tablet) 40 mg PO DAILY [facility] Last Admin: 03/14/22 10:28 Dose: 40 mg Documented By: GLENDY Carvedilol (Carvedilol 3.125 Mg Tablet) 3.125 mg PO BID [facility]; Protocol Last Admin: 03/14/22 10:28 Dose: 3.125 mg Documented By: GLENDY Dextrose (Dextrose 50 % 25 Gm/50 Ml Syringe) 25 gm IVPUSH Q15M PRN; Protocol PRN Reason: per Hypoglycemia Standing Ord. Docusate Sodium (Docusate Sodium 100 Mg Capsule) 100 mg PO DAILY PRN PRN Reason: Constipation Empagliflozin (Empagliflozin 25 Mg Tablet) 25 mg PO DAILY [facility] Last Admin: 12/29/22 09:08 Dose: 25 mg Documented By: GLENDY Empagliflozin (Empagliflozin 25 Mg Tablet) 25 mg PO DAILY [facility] Last Admin: 03/14/22 10:22 Dose: Not Given Documented By: GLENDY Non-Admin Reason: Duplicate Order Furosemide (Furosemide 40 Mg/4 Ml Vial) 40 mg IVPUSH DAILY [facility]; Protocol Gabapentin (Gabapentin 100 Mg Capsule) 100 mg PO BID [facility] Last Admin: 03/14/22 10:28 Dose: 100 mg Documented By: GLENDY Glucose (Glucose Gel 15 Gm Gel..Gram.) 15 gm PO Q15M PRN; Protocol PRN Reason: per Hypoglycemia Standing Ord. Amiodarone HCl 900 mg/ Sodium (Chloride) 518 mls @ 34.533 mls/hr IVCONT .Q15H1M [facility]; Protocol Last Infusion: 03/14/22 11:49 Dose: 0 mg/min, 0 mls/hr Documented By: GLENDY Insulin Glargine (Insulin Glargine,Hum.Rec.Anlog 100 Unit/Ml 10 Ml Vial) 29 unit SUBCUT BEDTIME [facility] Insulin Human Lispro (Insulin Lispro 100 Unit/Ml 3 Ml Vial) 0 unit SUBCUT QIDACHS [facility]; Protocol Last Admin: 03/14/22 09:08 Dose: 2 unit Documented By: GLENDY Non-Formulary Medication (Dulaglutide [Trulicity]) 1.5 mg SUBCUT MO@0900 [facility] Ondansetron HCl (Ondansetron Hcl 4 Mg/2 Ml Vial) 4 mg IVPUSH Q8H PRN PRN Reason: Nausea and Vomiting Pharmacy Consult (Consult Rx Perform Med Rec) 1 each MISCELLANE ONCE PRN PRN Reason: Consult order Sacubitril/Valsartan (Sacubitril/Valsartan 1 Tab Tablet) 1 tab PO BID [facility]; Protocol Sodium Chloride (0.9 % Sodium Chloride Flush 3 Ml Syringe) 3 ml IVFLUSH QSHIFT [facility] Last Admin: 03/14/22 09:08 Dose: 3 ml Documented By: GLENDY Labs CBC & Chem 7: 03/13/22 05:49 03/14/22 09:33 Labs: Laboratory Results - last 24 hr 03/13/22 03/13/22 03/13/22 13:13 15:55 19:35 Anion Gap Estim Creat Clear Calc Estimated GFR POC Glucose 129 H 144 H 255 H Random Glucose Calcium B-Natriuretic Peptide 03/14/22 03/14/22 03/14/22 07:38 09:33 09:33 Anion Gap 14 Estim Creat Clear Calc 54.5 Estimated GFR 41 POC Glucose 158 H Random Glucose 249 H Calcium 8.5 D B-Natriuretic Peptide 293 H 03/14/22 11:21 Anion Gap Estim Creat Clear Calc Estimated GFR POC Glucose 230 H Random Glucose Calcium B-Natriuretic Peptide Microbiology Microbiology Results: Microbiology 03/12/22 03:08 Blood Culture - Preliminary Blood - Venous No growth after 48 hours. 03/12/22 03:08 Blood Culture - Preliminary Blood - Venous No growth after 48 hours. Assessment and Plan (1) Elevated troponin: Status: Acute (2) Acute exacerbation of CHF (congestive heart failure): Status: Acute (3) Atrial fibrillation, new onset: Status: Acute Assessment and Plan: p her NPO past midnight Plan 67-year-old female with past medical history of CHF with reduced ejection fraction, CAD, diabetes, hypertension, endometrial cancer, presented to the hospital with complaints of chest pain and shortness of breath found to be in CHF and new onset AFib new onset AFib with RVR dig, eliquis in sinus after cardioversion on amio load, she's allergy to red dye in amio, will need alternate acute on chronic systolic CHF IV lasix cardio following restart coreg when bp allows plan to switch anna/arb to valsartan will be chnaged to entresto acute lactic acidosis and hypotension--not related to sepis and resolved. due to chf and afib, type II NSTEMI with underlyine CAD asa, statin, eliquis restart coreg when bp allows DM insulin jardiance HLD continue staitn HTN now relatively hypotensive holding lisinopril/hctz, coreg morbid obesity weight loss recommended DVT ppx: eliquis full code reason for continued hospitalization: iv diuresis, uncontrolled afib Time Spent With Patient Time: Total time managing care of this patient today ____ minutes. Quality Stroke Does the patient have a stroke diagnosis?: No VTE Prior VTE?: No VTE Risk Level:: Medical - moderate - high VTE Device Contraindication: Treatment Not Indicated VTE Drug Contraindication: N/A - Med Ordered
[2022-03-14] MEDS: Sacubitril/Valsartan 24/26 1 TAB TABLET PO ×2 (12:59→20:27)
[2022-03-14 15:53] LABS: Glucose, Whole Blood 204 mg/dL (60-115)
[2022-03-14 20:13] LABS: Glucose, Whole Blood 225 mg/dL (60-115)
[2022-03-14] MEDS: Insulin Glargine,Hum.rec.anlog 100 UNIT/ML 10 ML VIAL 29 UNIT SUBCUT (20:28)
[2022-03-15] VITALS: BP 112/78; PULSE 69; RESP 20; TEMP 35.9; O2SAT 95
[2022-03-15 03:00] VITALS: BP 98/64; PULSE 70; RESP 20; TEMP 37.2
[2022-03-15 07:24] VITALS: BP 103/56; PULSE 69; RESP 20; TEMP 35.9; O2SAT 92
[2022-03-15 07:31] LABS: Glucose, Whole Blood 155 mg/dL (60-115)
[2022-03-15] MEDS: Furosemide 40 MG/4 ML VIAL IVPUSH (08:23)
[2022-03-15] MEDS: Insulin Lispro 100 UNIT/ML 3 ML VIAL SUBCUT ×4 (08:23→21:31)
[2022-03-15] MEDS: Gabapentin 100 MG CAPSULE PO ×2 (08:24→21:30)
[2022-03-15] MEDS: Empagliflozin 25 MG TABLET PO (08:24)
[2022-03-15] MEDS: Sacubitril/Valsartan 24/26 1 TAB TABLET PO ×2 (08:24→21:31)
[2022-03-15] MEDS: Aspirin Enteric Coated 81 MG TABLET.DR PO (08:24)
[2022-03-15] MEDS: Atorvastatin Calcium 40 MG TABLET PO (08:24)
[2022-03-15] MEDS: Apixaban 5 MG TABLET PO ×2 (08:24→21:31)
[2022-03-15] MEDS: 0.9 % Sodium Chloride Flush 3 ML SYRINGE IVFLUSH ×3 (08:25→21:35)
[2022-03-15 09:22] LABS: Anion Gap 14 (12-20); Blood Urea Nitrogen 29 mg/dL (9-16); Calcium 8.8 mg/dL (8.4-10.2); Carbon Dioxide 27 mmol/L (22-29); Chloride 102 mmol/L (96-108); Creatinine Clr Calc Pharmacy 46.8; Estimated Glomerular Filt Rate 35; Glucose Random 219 mg/dL (60-115); Potassium 3.9 mmol/L (3.3-5.1); Sodium 139 mmol/L (135-145)
[2022-03-15 09:38] LABS: B Type Natriuretic Peptide 389 pg/mL (<100)
--- NOTE | 2022-03-15 10:02 | P.PNIM_ITS ---
Subjective Subjective Date of Service: 03/16/22 Interval History: cc: sob, chest pain interval history: no sob, Physical Exam Vital Signs: Vital Signs: Last Vital Signs Temp 96.7 F L 03/15/22 07:24 Pulse 69 03/15/22 07:24 Resp 20 03/15/22 07:24 BP 103/56 L 03/15/22 07:24 Pulse Ox 92 03/15/22 07:24 O2 Del Method 03/15/22 07:24 O2 Flow Rate 2 03/13/22 11:50 BMI result Body Mass Index 42.5 Const: Other: Appearance: Alert. Oriented X3. No acute distress. Eyes: Pupils equal, round and reactive to light. ENT: Pharynx normal. Neck: Normal inspection. Neck supple. No lymph nodes noted. No crepitus CVS:iregular. Pulses normal. Normal S1 and S2, 1+ pitting edema bilaterally Respiratory: Bilateral crackles, no wheezing Abdomen: Soft and nontender. No rigidity. No distention. Skin: Skin warm and dry. Normal skin color. Normal skin turgor. Neuro: Oriented X 3. no Focal deficit Objective Data Active Medications Acetaminophen (Acetaminophen 325 Mg Tablet) 650 mg PO Q6H PRN PRN Reason: Pain, Mild (Pain Scale 1-3) Apixaban (Apixaban 5 Mg Tablet) 5 mg PO BID REPLACED BY [facility] Last Admin: 03/15/22 08:24 Dose: 5 mg Documented By: GLENDY Aspirin (Aspirin Enteric Coated 81 Mg Tablet.) 81 mg PO DAILY REPLACED BY [facility] Last Admin: 03/15/22 08:24 Dose: 81 mg Documented By: GLENDY Atorvastatin Calcium (Atorvastatin Calcium 40 Mg Tablet) 40 mg PO DAILY REPLACED BY [facility] Last Admin: 03/15/22 08:24 Dose: 40 mg Documented By: GLENDY Carvedilol (Carvedilol 3.125 Mg Tablet) 3.125 mg PO BID [facility]PL[facility]ED BY [facility]; Protocol Last Admin: 03/14/22 10:28 Dose: 3.125 mg Documented By: GLENDY Dextrose (Dextrose 50 % 25 Gm/50 Ml Syringe) 25 gm IVPUSH Q15M PRN; Protocol PRN Reason: per Hypoglycemia Standing Ord. Docusate Sodium (Docusate Sodium 100 Mg Capsule) 100 mg PO DAILY PRN PRN Reason: Constipation Empagliflozin (Empagliflozin 25 Mg Tablet) 25 mg PO DAILY [facility]PLACED BY [facility] Last Admin: 03/15/22 08:24 Dose: 25 mg Documented By: GLENDY Empagliflozin (Empagliflozin 25 Mg Tablet) 25 mg PO DAILY [facility]PLACED BY [facility] Last Admin: 03/14/22 10:22 Dose: Not Given Documented By: GLENDY Non-Admin Reason: Duplicate Order Furosemide (Furosemide 40 Mg/4 Ml Vial) 40 mg IVPUSH DAILY [facility]PL[facility]ED BY [facility]; Protocol Last Admin: 03/15/22 08:23 Dose: 40 mg Documented By: GLENDY Gabapentin (Gabapentin 100 Mg Capsule) 100 mg PO BID [facility]PLACED BY [facility] Last Admin: 03/15/22 08:24 Dose: 100 mg Documented By: GLENDY Glucose (Glucose Gel 15 Gm Gel..Gram.) 15 gm PO Q15M PRN; Protocol PRN Reason: per Hypoglycemia Standing Ord. Amiodarone HCl 900 mg/ Sodium (Chloride) 518 mls @ 34.533 mls/hr IVCONT .Q15H1M REPLACED BY [facility]; Protocol Last Admin: 03/14/22 20:36 Dose: 1 mg/min, 34.53 mls/hr Documented By: MARISOL Insulin Glargine (Insulin Glargine,Hum.Rec.Anlog 100 Unit/Ml 10 Ml Vial) 29 unit SUBCUT BEDTIME REPLACED BY [facility] Last Admin: 03/14/22 20:28 Dose: 29 unit Documented By: MARISOL Insulin Human Lispro (Insulin Lispro 100 Unit/Ml 3 Ml Vial) 0 unit SUBCUT QIDACHS REPLACED BY [facility]; Protocol Last Admin: 03/15/22 08:23 Dose: 2 unit Documented By: GLENDY Non-Formulary Medication (Dulaglutide [Trulicity]) 1.5 mg SUBCUT MO@0900 REPLACED BY [facility] Ondansetron HCl (Ondansetron Hcl 4 Mg/2 Ml Vial) 4 mg IVPUSH Q8H PRN PRN Reason: Nausea and Vomiting Pharmacy Consult (Consult Rx Perform Med Rec) 1 each MISCELLANE ONCE PRN PRN Reason: Consult order Sacubitril/Valsartan (Sacubitril/Valsartan 1 Tab Tablet) 1 tab PO BID [facility]PL[facility]ED BY [facility]; Protocol Last Admin: 03/15/22 08:24 Dose: 1 tab Documented By: GLENDY Sodium Chloride (0.9 % Sodium Chloride Flush 3 Ml Syringe) 3 ml IVFLUSH QSHIFT REPLACED BY [facility] Last Admin: 03/15/22 08:25 Dose: 3 ml Documented By: GLENDY Labs CBC & Chem 7: 03/13/22 05:49 03/15/22 08:58 Labs: Laboratory Results - last 24 hr 03/14/22 03/14/22 03/14/22 09:33 09:33 11:21 Anion Gap 14 Estim Creat Clear Calc 54.5 Estimated GFR 41 POC Glucose 230 H Random Glucose 249 H Calcium 8.5 D B-Natriuretic Peptide 293 H 03/14/22 03/14/22 03/15/22 15:49 20:05 07:25 Anion Gap Estim Creat Clear Calc Estimated GFR POC Glucose 204 H 225 H 155 H Random Glucose Calcium B-Natriuretic Peptide 03/15/22 03/15/22 08:58 08:58 Anion Gap 14 Estim Creat Clear Calc 46.8 Estimated GFR 35 POC Glucose Random Glucose 219 H Calcium 8.8 B-Natriuretic Peptide 389 H Microbiology Microbiology Results: Microbiology 03/12/22 03:08 Blood Culture - Preliminary Blood - Venous No growth after 48 hours. 03/12/22 03:08 Blood Culture - Preliminary Blood - Venous No growth after 48 hours. Assessment and Plan (1) Elevated troponin: Status: Acute (2) Acute exacerbation of CHF (congestive heart failure): Status: Acute (3) Atrial fibrillation, new onset: Status: Acute Plan 67-year-old female with past medical history of CHF with reduced ejection fraction, CAD, diabetes, hypertension, endometrial cancer, presented to the hospital with complaints of chest pain and shortness of breath found to be in CHF and new onset AFib new onset AFib with RVR in sinus after cardioversion on amio load, she's allergy to red dye in amio, so getting non formulary non red dye amio acute on chronic systolic CHF Stopped IV Lasix d/t rising cardio following continue coreg and Entresto follow renal function acute lactic acidosis and hypotension--not related to sepis and resolved. due to chf and afib, type II NSTEMI with underlyine CAD asa, statin, eliquis LUIS FELIPE --likely d/t hypotension and lasix, hold Lasix and monitor DM insulin jardiance HLD continue statin HTN--WNL morbid obesity weight loss recommended DVT ppx: eliquis full code reason for continued hospitalization: iv diuresis, uncontrolled afib Time Spent With Patient Time: Total time managing care of this patient today ____ minutes. Quality Stroke Does the patient have a stroke diagnosis?: No VTE Prior VTE?: No VTE Risk Level:: Medical - moderate - high VTE Device Contraindication: Treatment Not Indicated VTE Drug Contraindication: N/A - Med Ordered
[2022-03-15 11:28] LABS: Glucose, Whole Blood 218 mg/dL (60-115)
[2022-03-15 11:48] VITALS: BP 113/73; PULSE 73; RESP 18; TEMP 36.8; O2SAT 92
--- NOTE | 2022-03-15 13:02 | PM.PNCARD ---
Subjective Subjective Date of Service: 03/15/22 <NUNO Rivas - Last Filed: 03/15/22 13:15> 03/15/22 <Diego Valdez MD - Last Filed: 03/15/22 13:30> Principal diagnosis: CHF, atrial fibrillation <NUNO Rivas - Last Filed: 03/15/22 13:15> Interval history: Seen at 1100. Today observed amubating in the hallway. Tells me she is breathing good and feeling much better than admit. Leg edema continues to improve. No chest pains or palpitations. Continues on Amiodarone drip. Tele showing SR, brief atrial tach runs ( 1-2 sec) without symptoms, rate average 70s. Voiding in bathroom. <NUNO Rivas - Last Filed: 03/15/22 13:15> Review of Systems Review of Systems as above <NUNO Rivas - Last Filed: 03/15/22 13:15> Yes all other systems are reviewed and are negative <NUNO Rivas - Last Filed: 03/15/22 13:15> Physical Exam Vital Signs: Last Vital Signs Temp 98.2 F 03/15/22 11:48 Pulse 73 03/15/22 11:48 Resp 18 03/15/22 11:48 BP 113/73 03/15/22 11:48 Pulse Ox 92 03/15/22 11:48 O2 Del Method 03/15/22 11:48 O2 Flow Rate 2 03/13/22 11:50 BMI result Body Mass Index 42.5 <NUNO Rivas - Last Filed: 03/15/22 13:15> Const General: cooperative, comfortable and no acute distress <NUNO Rivas - Last Filed: 03/15/22 13:15> Orientation/consciousness: patient oriented x3 <NUNO Rivas - Last Filed: 03/15/22 13:15> Neck Neck: Yes normal visual inspection <NUNO Rivas - Last Filed: 03/15/22 13:15> Resp Other: few faint rales right base <NUNO Rivas - Last Filed: 03/15/22 13:15> Effort & Inspection: normal respiratory effort <Imelda Harris [facility] - Last Filed: 03/15/22 13:15> Auscultation: clear to auscultation bilaterally, no crackles, no rales, no rhonchi and no wheezes <Imelda Harris NP - Last Filed: 03/15/22 13:15> Cardio Rate: regular rate <Imelda Kimberly [facility] - Last Filed: 03/15/22 13:15> Rhythm: regular rhythm <[facility] Last Filed: 03/15/22 13:15> Heart sounds: S1 normal heart sound present, S2 normal heart sound present, no gallops, no murmurs and no rubs <Imeldamiky Harris [facility] - Last Filed: 03/15/22 13:15> Skin General skin exam: no rashes or lesions noted <Imelda Kimberly [facility] Last Filed: 03/15/22 13:15> Neuro General: patient oriented x3 <Imeldamiky Harris [facility] Last Filed: 03/15/22 13:15> Extrem Other: mildly pitting edema noted in each lower leg and ankle region. She states much improved <Imelda Harris [facility] - Last Filed: 03/15/22 13:15> Psych Appearance: grossly normal <Imeldamiky Harris [facility] Last Filed: 03/15/22 13:15> Mental Status: mental status grossly normal <Imelda Harris [facility] - Last Filed: 03/15/22 13:15> Speech and movement: Normal speech and movement present <Imelda Kimberly [facility] - Last Filed: 03/15/22 13:15> Objective Labs and Meds Result diagrams: : 03/13/22 05:49 03/15/22 08:58 <Imelda Harris [facility] - Last Filed: 03/15/22 13:15> Lab results: Laboratory Results - last 24 hr 03/14/22 03/14/22 03/15/22 15:49 20:05 07:25 Sodium Potassium Chloride Carbon Dioxide Anion Gap BUN Creatinine Estim Creat Clear Calc Estimated GFR POC Glucose 204 H 225 H 155 H Random Glucose Calcium B-Natriuretic Peptide 03/15/22 03/15/22 03/15/22 08:58 08:58 11:24 Sodium 139 Potassium 3.9 Chloride 102 Carbon Dioxide 27 Anion Gap 14 BUN 29 H Creatinine 1.50 H Estim Creat Clear Calc 46.8 Estimated GFR 35 POC Glucose 218 H Random Glucose 219 H Calcium 8.8 B-Natriuretic Peptide 389 H <NUNO Rivas - Last Filed: 03/15/22 13:15> Progress Note: A&P Assessment and plan (1) Acute exacerbation of CHF (congestive heart failure): Status: Acute <NUNO Rivas - Last Filed: 03/15/22 13:15> Assessment and Plan: Admit with 1 week of leg swelling, increased sob and palpitations. Found to have acute systolic HF, new afib RVR. Echo showed EF 10-15%, WMA consistent with ischemic CMP. Prior known EF 35-40%. Diuresed with IV lasix. I+Os not accurately measured. Pt reports urinating large amounts in bathroom without it being measured. Clinically much improved. Sat 92% on RA. She reports breathing unlabored, leg edema much less. On exam she has less rales noted in right base. BP on low side still. Cr 1.5 today and was 1.29 yesterday. Lasix already off med list. Will continue Entresto BID, Jardiance and resume Carvedilol 3.125mg bid - holding for SBP< 90. Will consider addition of Aldactone going forward, if BP allow. Recheck BMP, BNP in am. We will follow <NUNO Rivas - Last Filed: 03/15/22 13:15> Admit with 1 week of leg swelling, increased sob and palpitations. Found to have acute systolic HF, new afib RVR. Echo showed EF 10-15%, WMA consistent with ischemic CMP. Prior known EF 35-40%. Diuresed with IV lasix. I+Os not accurately measured. Pt reports urinating large amounts in bathroom without it being measured. Clinically much improved. Sat 92% on RA. She reports breathing unlabored, leg edema much less. On exam she has less rales noted in right base. BP on low side still. Cr 1.5 today and was 1.29 yesterday. Lasix already off med list. Will continue Entresto BID, Jardiance and resume Carvedilol 3.125mg bid - holding for SBP< 90. Will consider addition of Aldactone going forward, if BP allow. Recheck BMP, BNP in am. We will follow Patient seen and examined. Case discussed with Imelda Harris. Slight rise in creatinine. Clinically doing very well. Will hold Lasix tomorrow. Add Coreg 3.125 mg b.i.d. and hold for systolic blood pressure less than 90. Continue Entresto. Continue strict intake and output chart. Continue monitor renal function. Continue rhythm control approach. Ambulate as tolerated. Will follow with her. <Diego Valdez MD - Last Filed: 03/15/22 13:30> (2) Atrial fibrillation, new onset: Status: Acute <NUNO Rivas - Last Filed: 03/15/22 13:15> Assessment and Plan: New finding of afib RVR this admit. EF further reduced which could be tachycardia mediated. She underwent a TERRANCE CVR 03/13 with successful conversion to SR, after 2 shocks. She was then started on Amiodarone drip to help maintain rhythm control. Tele shows SR, brief runs of atrial tach, average rate in 70s. She has a red dye allergy and the hospital pharmacy has ordered dye free Amiodarone for her. Will start Amiodarone load of 400mg bid for 2 weeks, then plan to reduce dose to 200mg once daily. 1 hour after her first PO dose, will d/c the amiodarone drip. Continue Eliquis for anticoagulation. Ongoing tele monitoring. We will plan for a limited echo in a few weeks to reassess EF. EKG in am to eval QTc on amiodarone. ( I will send order for the dye free amiodarone to her usual pharmacy so that it will be ready upon discharge) <NUNO Rivas - Last Filed: 03/15/22 13:15> New finding of afib RVR this admit. EF further reduced which could be tachycardia mediated. She underwent a TERRANCE CVR 03/13 with successful conversion to SR, after 2 shocks. She was then started on Amiodarone drip to help maintain rhythm control. Tele shows SR, brief runs of atrial tach, average rate in 70s. She has a red dye allergy and the hospital pharmacy has ordered dye free Amiodarone for her. Will start Amiodarone load of 400mg bid for 2 weeks, then plan to reduce dose to 200mg once daily. 1 hour after her first PO dose, will d/c the amiodarone drip. Continue Eliquis for anticoagulation. Ongoing tele monitoring. We will plan for a limited echo in a few weeks to reassess EF. EKG in am to eval QTc on amiodarone. ( I will send order for the dye free amiodarone to her usual pharmacy so that it will be ready upon discharge) Maintaining sinus rhythm. Currently remains on IV amiodarone drip as she cannot get genetic oral amiodarone due to presence of red dye with her having anaphylaxis with red dye. Looking for alternative formulations currently. Continue amiodarone drip till we are able to reinstate p.o. amiodarone loading with 400 mg b.i.d. for 14 days followed by 200 mg daily. Continue full oral anticoagulation Eliquis. EKG tomorrow a.m.. <Diego Valdez MD - Last Filed: 03/15/22 13:30> (3) Ischemic cardiomyopathy: Status: Acute <NUNO Rivas - Last Filed: 03/15/22 13:15> Assessment and Plan: Cardiac cath 11/06/21 showing significant CAD: LAD proximal and mid 50% stenosis, LCx mid 100% [employer], R PDA 70% stenosis, Ramus 65% stenosis. Echo on 02/06 showed EF 35-40%, basal inferior, mid inferior and basal inferolateral akinetic. She had been appropriate medical management as outpt and followed by Dr Storey. Then developed Afib and HF as above. - for her CAD does not need Aspirin as she is now on eliquis, Restarting Carvedilol and continue atorvastatin. <NUNO Rivas - Last Filed: 03/15/22 13:15> (4) Elevated troponin: Status: Acute <NUNO Rivas - Last Filed: 03/15/22 13:15> Assessment and Plan: Elevation on admit most likely secondary is setting of HF, Afib RVR. She does have known CAD. No reports of CP <NUNO Rivas - Last Filed: 03/15/22 13:15> (5) Coronary arteriosclerosis: Status: Acute <NUNO Rivas - Last Filed: 03/15/22 13:15> Time Spent With Patient Time: Total time managing care of this patient today _26___ minutes. <NUNO Rivas - Last Filed: 03/15/22 13:15> Progress Note: Quality Stroke Does the patient have a stroke diagnosis?: No <NUNO Rivas - Last Filed: 03/15/22 13:15> Procedures Date of Service Date of Service: 03/15/22 <NUNO Rivas - Last Filed: 03/15/22 13:15>
--- NOTE | 2022-03-15 14:59 | MHC.CM.PN ---
per rounds pt not medically ready for dc dc plan home no servceis
[2022-03-15 15:23] VITALS: BP 129/70; PULSE 74; RESP 16; TEMP 36.8; O2SAT 97
[2022-03-15 16:33] LABS: Glucose, Whole Blood 221 mg/dL (60-115)
[2022-03-15 19:21] VITALS: BP 119/70; PULSE 73; RESP 15; TEMP 36.3; O2SAT 94
[2022-03-15 20:28] LABS: Glucose, Whole Blood 203 mg/dL (60-115)
[2022-03-15] MEDS: carvediloL 3.125 MG TABLET PO (21:30)
[2022-03-15] MEDS: Insulin Glargine,Hum.rec.anlog 100 UNIT/ML 10 ML VIAL 29 UNIT SUBCUT (21:31)
[2022-03-16] VITALS: BP 122/69; PULSE 68; RESP 16; TEMP 36.1; O2SAT 93
[2022-03-16 03:12] VITALS: BP 105/58; PULSE 68; RESP 15; TEMP 37.1; O2SAT 94
[2022-03-16 07:21] LABS: Glucose, Whole Blood 194 mg/dL (60-115)
[2022-03-16 07:34] VITALS: BP 104/57; PULSE 80; RESP 18; TEMP 36.4; O2SAT 93
[2022-03-16] MEDS: Apixaban 5 MG TABLET PO (08:08)
[2022-03-16] MEDS: carvediloL 3.125 MG TABLET PO (08:08)
[2022-03-16] MEDS: Empagliflozin 25 MG TABLET PO (08:08)
[2022-03-16] MEDS: Atorvastatin Calcium 40 MG TABLET PO (08:08)
[2022-03-16] MEDS: 0.9 % Sodium Chloride Flush 3 ML SYRINGE IVFLUSH ×2 (08:08→11:39)
[2022-03-16] MEDS: Insulin Lispro 100 UNIT/ML 3 ML VIAL SUBCUT ×2 (08:08→11:38)
[2022-03-16] MEDS: Gabapentin 100 MG CAPSULE PO (08:08)
[2022-03-16] MEDS: Sacubitril/Valsartan 24/26 1 TAB TABLET PO (08:08)
--- NOTE | 2022-03-16 09:34 | P.DS_ITS ---
DS: Providers Provider Date of Service: 03/16/22 Date of admission: 03/12/22 06:59 Primary care physician: Lily Menjivar MD Consults: 03/12/22 07:05 Consult to Cardiology Routine Consulting Provider: Diego Valdez Reason for consultation: CHF, Elevated trop, New onset A fib Has provider been notified: No DS: Diagnosis Discharge Diagnosis (1) Elevated troponin: Status: Acute (2) Acute exacerbation of CHF (congestive heart failure): Status: Acute (3) Atrial fibrillation, new onset: Status: Acute DS: Summary Hospital Course Hospital Course: Chief Complaint: chest pain, sob 67-year-old female with past medical history of diabetes, endometrial adenocarcinoma status post hysterectomy in November of this year, HTN, IBS, as well as CHF with reduced ejection fraction presents to the hospital with complaints of chest pain as well as shortness of breath.? Patient reports the chest pain is pressure-like midsternal, radiating to the back, intermittent, started today at rest.? Patient also reports shortness of breath, orthopnea and PND.? Has a mild cough that is dry nonproductive, she is also feeling palpitations in the chest, she has also noticed lower extremity edema the past few days.? reports no headache, no change in vision, no dizziness, no abdominal pain nausea or vomiting, no diarrhea constipation, no urinary symptoms. On arrival to the ED patient has a heart rate of 123, found to be in AFib with RVR Labs are significant for WBC count of 7.9, hemoglobin of 12.5, hematocrit 39.1 been of 32, creatinine of 1.17, lactic acid of 2.5, troponin of 284 decreased to 102, BNP of 410, Chest x-ray shows small bilateral pleural effusion and accompanying atelectasis with diffuse mild bronchial thickening Hospital course: new onset AFib with RVR, was on IV cardizem, then underwent cardioversion 03/14 with oriental orthodox of sinus rythm. On amio load now, 400 bid x 2 weeks, then 200 daily. d, she's allergy to red dye in some amio so is getting non red dye version. Eliquis for stroke prevention acute on chronic systolic CHF Stopped IV Lasix d/t rising cardio following continue coreg? and Entresto follow renal function acute lactic acidosis and hypotension--not related to sepis and resolved. due to chf and afib, type II NSTEMI with underlyine CAD asa, statin, eliquis LUIS FELIPE --likely d/t hypotension and lasix, hold Lasix and monitor DM insulin jardiance HLD continue statin HTN--WNL morbid obesity weight loss recommended Time Spent with Patient Time attestation: Total time managing care of this patient today ____ minutes. Discharge coordination time: Greater than 30 minutes Quality: Safe Use of Opioids Does Pt have an Active Cancer Diagnosis on the Problem List?: No Quality: Stroke Does the patient have a stroke diagnosis?: No Physical Exam Vital Signs: Vital Signs: Last Vital Signs Temp 97.6 F 03/16/22 07:34 Pulse 80 03/16/22 07:34 Resp 18 03/16/22 07:34 BP 104/57 L 03/16/22 07:34 Pulse Ox 93 03/16/22 07:34 O2 Del Method 03/16/22 07:34 O2 Flow Rate 2 03/13/22 11:50 BMI result Body Mass Index 42.5 DS: Data Data Completed and Pending Labs on day of discharge: Laboratory Results - last 24 hr 03/15/22 03/15/22 03/15/22 08:58 11:24 16:16 POC Glucose 218 H 221 H B-Natriuretic Peptide 389 H 03/15/22 03/16/22 20:14 07:14 POC Glucose 203 H 194 H B-Natriuretic Peptide Preliminary micro results at discharge 03/12/22 03:08 Blood Culture - Preliminary Blood - Venous No growth after 48 hours. 03/12/22 03:08 Blood Culture - Preliminary Blood - Venous No growth after 48 hours. Discharge Plan Discharge Anticipated Discharge Date/Time: 03/16/22 09:26 Patient Disposition: Home, Self-Care Discharge Diagnosis: Acute Heart failure, AFIB Referrals: Lily Menjivar MD [Primary Care Provider] - 1 Week Discharge Medications: New Eliquis 5 mg Tablet 5 mg PO BID Qty: 60 0RF Continued (DME) FreeStyle Lite Strips Strip See Rx Instructions .Route Qty: 100 5RF Rx Instructions: As directed check sugar twice a day before meals (DME) insulin syringe-needle U-100 [BD Veo Insulin Syringe UF] 1/2 mL 31 gauge x 15/64 syringe See Rx Instructions .Route Qty: 200 1RF Rx Instructions: As directed twice a day (DME) pen needle, diabetic [BD Ultra-Fine Short Pen Needle] 31 gauge x 5/16 needle See Rx Instructions .ROUTE .COMPLEX Qty: 100 3RF Dose Instruction: USE 1 PEN NEEDLE ONCE DAILY WITH LANTUS INSULIN Rx Instructions: USE 1 PEN NEEDLE ONCE DAILY WITH LANTUS INSULIN amiodarone 400 mg tablet 400 mg PO BID 30 Days Qty: 36 0RF Rx Instructions: 1 tablet twice daily for total of 2 weeks - then reduce dose to 1/2 tablet ( 200mg) daily Make sure these are dye free tablets carvedilol 3.125 mg tablet 1 tab PO BID lisinopril-hydrochlorothiazide 20-25 mg tablet 1 tab PO DAILY gabapentin 100 mg capsule 1 cap PO BID insulin lispro 100 unit/mL insulin pen 12 unit subcut TID Rx Instructions: administer before meals Jardiance 25 mg tablet 1 tab PO DAILY insulin degludec [Tresiba FlexTouch U-100] 100 unit/mL (3 mL) insulin pen 42 unit subcut BEDTIME Trulicity 1.5 mg/0.5 mL Pen Injector 1.5 mg SUBCUT MO@0900 atorvastatin 40 mg tablet 40 mg PO DAILY 30 Days Qty: 30 11RF (DME) blood-glucose meter [FreeStyle Lite Meter] Kit See Rx Instructions .Route Rx Instructions: As directed (DME) lancets [FreeStyle Lancets] 28 gauge misc See Rx Instructions .Route Rx Instructions: As directed aspirin [Adult Aspirin Regimen] 81 mg tablet,delayed release (DR/EC) 81 mg PO DAILY Discontinued hydrochlorothiazide 25 mg tablet 1 tab PO BEDTIME Discharge Orders: Discharge Order (Routine); Ordered 03/16/22 Ordered By: Mik Gardner Diet: Advance to usual diet Activity on Discharge: As tolerated Stand Alone Forms: Patient Portal Discharge page Care Plan Goals: control of AFIB and heart failure Health Concerns: Heart failure Atrial fibrilation Plan of Treatment: Take amiodarone as directed and follow up with your Doctor in a week--Be sure to tell Pharmacy with need no red dye pills Assessment: As above Patient Instructions: A-fib (Atrial Fibrillation) (GEN), Cardioversion (GEN), Transesophageal Echocardiogram (GEN)
--- NOTE | 2022-03-16 09:41 | MHC.CM.PN ---
Patient has been medically cleared for dc to home today, self care. CM met with Patient at bedside and addressed IMM with her, providing her with the original and a copy has been placed on the chart. Patient's Daughter will provide transportation to home.
[2022-03-16 10:08] LABS: Anion Gap 16 (12-20); Blood Urea Nitrogen 29 mg/dL (9-16); Calcium 8.5 mg/dL (8.4-10.2); Carbon Dioxide 25 mmol/L (22-29); Chloride 100 mmol/L (96-108); Creatinine Clr Calc Pharmacy 54.5; Estimated Glomerular Filt Rate 41; Glucose Random 231 mg/dL (60-115); Potassium 3.7 mmol/L (3.3-5.1); Sodium 137 mmol/L (135-145)
[2022-03-16 11:08] VITALS: BP 102/58; PULSE 61; RESP 20; TEMP 36.3; O2SAT 94
[2022-03-16 11:29] LABS: Glucose, Whole Blood 243 mg/dL (60-115)
--- NOTE | 2022-03-16 11:59 | P.PNCA_ITS ---
Subjective Subjective Date of Service: 03/16/22 Principal diagnosis: CHF, atrial fibrillation Interval history: Patient is doing extremely well at this point in time. Has been able to ambulate without any symptoms shortness of breath or chest pressure. No orthopn ea PND. Remains in sinus rhythm. Has received p.o. amiodarone and has been tolerating that without any allergic reactions Review of Systems Review of Systems Yes all other systems are reviewed and are negative Physical Exam Vital Signs: Last Vital Signs Temp 97.3 F 03/16/22 11:08 Pulse 61 03/16/22 11:08 Resp 20 03/16/22 11:08 BP 102/58 L 03/16/22 11:08 Pulse Ox 94 03/16/22 11:08 O2 Del Method 03/16/22 11:08 O2 Flow Rate 2 03/13/22 11:50 BMI result Body Mass Index 42.5 Const General: cooperative, comfortable and no acute distress Orientation/consciousness: patient oriented x3 Neck Neck: Yes normal visual inspection Resp Other: few faint rales right base Effort & Inspection: normal respiratory effort Auscultation: clear to auscultation bilaterally, no crackles, no rales, no rhonchi and no wheezes Cardio Rate: regular rate Rhythm: regular rhythm Heart sounds: S1 normal heart sound present, S2 normal heart sound present, no gallops, no murmurs and no rubs Skin General skin exam: no rashes or lesions noted Neuro General: patient oriented x3 Extrem Other: mildly pitting edema noted in each lower leg and ankle region. She states much i mproved Psych Appearance: grossly normal Mental Status: mental status grossly normal Speech and movement: Normal speech and movement present Objective Labs and Meds Result diagrams: 03/13/22 05:49 03/16/22 09:26 Lab results: Laboratory Results - last 24 hr 03/15/22 03/15/22 03/16/22 16:16 20:14 07:14 Sodium Potassium Chloride Carbon Dioxide Anion Gap BUN Creatinine Estim Creat Clear Calc Estimated GFR POC Glucose 221 H 203 H 194 H Random Glucose Calcium 03/16/22 03/16/22 09:26 11:11 Sodium 137 Potassium 3.7 Chloride 100 Carbon Dioxide 25 Anion Gap 16 BUN 29 H Creatinine 1.29 Estim Creat Clear Calc 54.5 Estimated GFR 41 POC Glucose 243 H Random Glucose 231 H Calcium 8.5 Progress Note: A&P Assessment and plan (1) Acute exacerbation of CHF (congestive heart failure): Status: Acute Assessment and Plan: Acute heart failure exacerbation with further worsening LV systolic function setting of atrial fibrillation hyper response. Both a combination of ischemic cardiomyopathy in tachycardia mediated cardiomyopathy. Clinically appearing much better. Restart Lasix 40 mg daily. Hold off on Aldactone therapy. Continue carvedilol, Jardiance as well as Entresto. Will set up for follow-up in 2 weeks time as outpatient. Will require further workup from ischemic perspective in terms of revascularization strategy. This was discussed with her. Will benefit from continued weight reduction and should consider cardiac rehab as outpatient. (2) Atrial fibrillation, new onset: Status: Acute Assessment and Plan: Atrial fibrillation rapid ventricular response status post TERRANCE guided cardioversion. Clinically doing well at this point time. Tolerating p.o. amiodarone which should be continued with current formulation of amiodarone. 400 mg b.i.d. for 2 weeks followed by 200 mg daily. Continue full oral anticoagulation with Eliquis. Will set up for outpatient Holter monitor and follow-up. (3) Coronary arteriosclerosis: Status: Acute Assessment and Plan: Three-vessel coronary artery disease with ischemic cardiomyopathy. Will need further assessment as outpatient for possible revascularization. Will follow with patient outpatient. Thank you for allowing me to partake in her care Time Spent With Patient Time: Total time managing care of this patient today ____ minutes. Progress Note: Quality Stroke Does the patient have a stroke diagnosis?: No Procedures Date of Service Date of Service: 03/16/22
== END 2022-03-16 15:30 | disposition home or self-care (01) | DRG 280 ==
LOC: HO.ED 04:28 → HO.EDOVER 07:05 → HO.IMC 14:37
PROVIDERS: Internal Medicine; Internal Medicine Cardiovascular Disease; Nurse Practitioner Family; Admitting Provider Internal Medicine; Emergency Provider Emergency Medicine; PCP Internal Medicine; Visit Provider Internal Medicine
PROC: 5A2204Z Restoration of Cardiac Rhythm, Single (ICD-10-PCS; CPT 93312; principal; 2022-03-13 10:20)
PROC: 5A2204Z Restoration of Cardiac Rhythm, Single (ICD-10-PCS; 2022-03-13 10:20)
DX: I11.0 Hypertensive heart disease with heart failure (principal); I50.23 Acute on chronic systolic (congestive) heart failure; I21.A1 Myocardial infarction type 2; Z68.41 Body mass index [BMI] 40.0-44.9, adult; E87.21 Acute metabolic acidosis; N17.9 Acute kidney failure, unspecified; I48.91 Unspecified atrial fibrillation; I25.10 Atherosclerotic heart disease of native coronary artery without angina pectoris; E78.2 Mixed hyperlipidemia; E66.01 Morbid (severe) obesity due to excess calories; I95.9 Hypotension, unspecified; E11.9 Type 2 diabetes mellitus without complications; Z20.822 Contact with and (suspected) exposure to COVID-19; Z92.3 Personal history of irradiation; Z90.710 Acquired absence of both cervix and uterus; Z85.42 Personal history of malignant neoplasm of other parts of uterus; Z79.4 Long term (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 of insulin; Z79.01 Long term (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 of anticoagulants; Z79.899 Other long term (current) drug therapy
CPT/HCPCS: 36415; 71045; 71275; 80048; 80053; 82248; 82803; 82947; 83605; 83735; 83880; 84443; 84484; 85025; 85027; 85379; 85610; 87040; 87635; 92960; 93005; 93308; 99285; J0282; J0610; J1160; J1940; J2250; J2370; J3010; Q9957; Q9967

== ENCOUNTER → 2022-04-04 09:36 | Outpatient (REF) | payer MEDICARE, SELFPAY ==
--- NOTE | 2022-04-04 09:43 | CA_ITS ---
Transthoracic Echocardiogram Patient (Last, First, Middle): July Dorantes J Gender: Female Date of : 1955 Age: 67 Procedure Date: 04/04/2022 Procedure Type: Transthoracic Echocardiogram Location: OP Height: 165.1 cm Weight: 104.78 kg BSA: 2.10 m2 Heart Rate: 124 bpm BP: 115 / 80 mmHg Licensing Officer: IRA Referring MD: Diego Valdez MD Risk And Insurance Manager: Diego Valdez MD Symptoms: I48.91 - Unspecified atrial fibrillation Study Quality: Adequate w contrast ECG Rhythm: Atrial Fibrillation Conclusions: - Mildly dilated left ventricle with severe LV systolic dysfunction with LVEF of about 15-20% with regional wall motion abnormality consistent with ischemic cardiomyopathy. Patient's in recurrent atrial fibrillation with slightly rapid ventricular response Findings Procedure Information Contrast agent, definity, is being given per protocol without apparent complications. Left Ventricle Mildly increased left ventricular cavity size. There is normal left ventricular wall thickness. The left ventricular systolic function is severely decreased. The visually estimated ejection fraction is between 15 20%. Diastolic function is indeterminate on the basis of available data. Pericardium/Pleural There is no evidence of pericardial effusion. Prior Study Comparison No significant change compared to prior study dated: 03/13/2022. Measurements 2D Linear Measurements IVSd: 0.98 0.6-0.9/0.6-1.0 cm LVIDd: 5.69 3.9-5.3/4.2-5.9 cm LVIDd Index: 2.71 2.4-3.2/2.2-3.1 cm/m2 LVIDs: 5.56 2.0-3.6 cm LVPWd: 1.00 0.7-1.1 cm LV Mass: 276.76 67-162/88-224 g LV Mass Index: 131.79 43-95/49-115 g/m2 LVOT Diam: 2.30 3.0+(-)1.3 cm 2D Systolic Function EF 4C: 21.20 >55% EF 2C: 28.00 >55% LVOT LVOT Diam: 2.30 LVOT Area: 4.15 Tricuspid Valve RA Press: 3.00 Updated in Other Vendor System with Status of Final Diego Valdez MD electronically signed on 04/05/2022 8:50:30 AM with status of Final
--- NOTE | 2022-04-04 09:59 | HM_ITS ---
Conclusion: 1. Patient was monitored for total period of 3 days 2. Baseline rhythm is atrial fibrillation with average heart of 101 beats per minute within adequate rate control 3. Frequent rapid ventricular response with 54% of time heart rate greater than 100 beats per minute 4. No significant pauses or bradycardia noted 5. Occasional PVCs noted 6. No patient reported symptoms MTDD
== END ==
LOC: HO.CARD 09:36
PROVIDERS: PCP Internal Medicine; Visit Provider Internal Medicine Cardiovascular Disease
DX: I25.5 Ischemic cardiomyopathy (principal); I48.91 Unspecified atrial fibrillation; I50.9 Heart failure, unspecified
CPT/HCPCS: 93242; 93308; Q9957

== ENCOUNTER 2022-04-05 09:38 | Inpatient (IN) | payer MEDICARE, SELFPAY ==
[2022-04-05] VITALS (9 sets, daily range): BP systolic 92–121; BP diastolic 58–90; PULSE 79–125; RESP 14–22; TEMP 36–37.1; O2SAT 94–98; BMI 38.4
--- NOTE | 2022-04-05 | ECG_ITS ---
Test Reason : afib Blood Pressure : / mmHG Vent. Rate : 126 BPM Atrial Rate : 312 BPM P-R Int : 000 ms QRS Dur : 122 ms QT Int : 300 ms P-R-T Axes : 000 -34 138 degrees QTc Int : 434 ms Atrial flutter with variable A-V block Left axis deviation Left bundle branch block Abnormal ECG When compared with ECG of 14-MAR-2022 14:34, Atrial flutter has replaced Sinus rhythm Vent. rate has increased BY 52 BPM Left bundle branch block is now Present Criteria for Anterior infarct are no longer Present Referred By: Generic ED Physician Electronically Signed By:ESVIN ERICKSON MD
--- NOTE | ~2022-04-05 | XR_ITS ---
EXAMINATION: XR CHEST CLINICAL INFORMATION: Dyspnea on exertion COMPARISON: 03/12/2022 TECHNIQUE: Frontal view of the chest was obtained. FINDINGS: Lungs are well expanded and clear. No pleural effusion. Cardiac silhouette is slightly enlarged with a transverse cardiothoracic ratio of 0.55. Pulmonary vascular pattern is normal. Mild atherosclerotic calcification of the aorta. The visualized bones are intact. An electronic device projects over the left chest. Also, a EKG wires overlie the chest. XR/XR chest 1V IMPRESSION: * Mild cardiomegaly. * No acute pulmonary disease.
--- NOTE | 2022-04-05 09:59 | ED.GENADULT ---
HPI - General Adult General Chief complaint: Arrhythmia/Palpitations <ROBBIE Richter - Last Filed: 04/05/22 12:04> Stated complaint: afib <ROBBIE Richter - Last Filed: 04/05/22 12:04> Time Seen by Provider: 04/05/22 09:58 <ROBBIE Richter - Last Filed: 04/05/22 12:04> Source: patient and old records reviewed <ROBBIE Richter - Last Filed: 04/05/22 12:04> Mode of arrival: ambulatory <ROBBIE Richter - Last Filed: 04/05/22 12:04> Limitations: no limitations <ROBBIE Ricther Last Filed: 04/05/22 12:04> History of Present Illness HPI narrative: 67 yo female with history of paroxysmal Afib on Eliquis, s/p cardioversion 03/13/22, HFrEF w/ EF 15%, triple vessel CAD, 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 She states she started getting dyspnea with minimal exertion yesterday. She was feeling some light chest pressure in her upper chest along with some mild palpitations. She states yesterday she noticed her lower extremities started to swell more than usual. She was recently admitted here 03/12 - 03/16 for new onset of afib for which she was cardioverted and discharged home on Eliquis and amiodarone. She states she was confused around the amiodarone instructions. She was taking 200 mg pill 1 time per day. <ROBBIE Richter - Last Filed: 04/05/22 12:04> MD complaint: dyspnea on exertion, abnl ECHO <ROBBIE Richter - Last Filed: 04/05/22 12:04> Onset (ago): day(s) (1) <ROBBIE Richter - Last Filed: 04/05/22 12:04> Location: chest, left, right and lower extremity <ROBBIE Richter Last Filed: 04/05/22 12:04> Radiation: non-radiation <ROBBIE Richter Last Filed: 04/05/22 12:04> Severity: moderate <ROBBIE Richter - Last Filed: 04/05/22 12:04> Pain Consistency: intermittent <ROBBIE Richter Last Filed: 04/05/22 12:04> Relieving factors: rest and other ( sitting upright) <ROBBIE Richter - Last Filed: 04/05/22 12:04> Exacerbating factors: movement and other ( exertion) <ROBBIE Richter - Last Filed: 04/05/22 12:04> Associated symptoms: chest pain, shortness of breath and weakness <ROBBIE Richter - Last Filed: 04/05/22 12:04> Treatments prior to arrival: none <ROBBIE Richter - Last Filed: 04/05/22 12:04> Related Data Home medications: Home Medications Medication Instructions Recorded Confirmed aspirin 81 mg tablet,delayed 81 mg PO DAILY 10/17/21 04/05/22 release (Adult Aspirin Regimen) blood-glucose meter (FreeStyle 10/25/21 01/28/22 Lite Meter kit) lancets 28 gauge (FreeStyle 10/25/21 01/28/22 Lancets) carvedilol 3.125 mg tablet 1 tab PO BID 03/12/22 04/05/22 dulaglutide 1.5 mg/0.5 mL 1.5 mg subcut TU@0900 03/12/22 04/05/22 subcutaneous pen injector (Trulicity) empagliflozin 25 mg tablet 1 tab PO DAILY 03/12/22 04/05/22 (Jardiance) insulin degludec 100 unit/mL (3 42 unit subcut BEDTIME 03/12/22 04/05/22 mL) subcutaneous pen (Tresiba FlexTouch U-100 insulin) insulin lispro 100 unit/mL 12 unit subcut TIDAC 03/12/22 04/05/22 subcutaneous pen lisinopril 20 1 tab PO DAILY 03/12/22 04/05/22 mg-hydrochlorothiazide 25 mg tablet Previous Rx's Medication Instructions Recorded blood sugar diagnostic (FreeStyle #100 ea 10/11/20 Lite Strips) atorvastatin 40 mg tablet 40 mg PO DAILY 30 days #30 tabs 09/27/21 insulin syringe-needle U-100 1/2 #200 ea 11/13/21 mL 31 gauge x 15/64 (BD Veo Insulin Syringe Ultra-Fine) pen needle, diabetic 31 gauge x #100 ea 11/29/21 5/16 (BD Ultra-Fine Short Pen Needle) apixaban 5 mg tablet (Eliquis) 5 mg PO BID #60 tabs 03/16/22 furosemide 40 mg tablet (Lasix) 40 mg PO DAILY #30 tabs 03/16/22 amiodarone 200 mg tablet 200 mg PO DAILY 90 days #90 tabs 03/20/22 gabapentin 100 mg capsule 100 mg PO BID #60 caps 03/20/22 <ROBBIE Richter - Last Filed: 04/05/22 12:04> Allergies/adverse reactions: Allergies Allergy/AdvReac Type Severity Reaction Status Date / Time red dye [Red Dye] Allergy Severe HIVES,THROAT Verified 04/05/22 09:54 CLOSES FROM RED FOOD DYE <ROBBIE Richter - Last Filed: 04/05/22 12:04> Review of Systems Review of Systems: Yes all other systems are reviewed and are negative <ROBBIE Richter - Last Filed: 04/05/22 12:04> [facility] Past Medical History Medical History: Medical History Cardiomyopathy Colonoscopy refused Coronary arteriosclerosis Diabetes type 2, uncontrolled Diabetic neuropathy Endometrial adenocarcinoma Essential hypertension Hiatal hernia History of basal cell carcinoma History of cholelithiasis History of esophagitis Incomplete left bundle branch block (LBBB) Irritable bowel syndrome (IBS) Ischemic cardiomyopathy Mammogram declined Mild intermittent asthma Mixed dyslipidemia Morbid obesity Obesity due to excess calories Osteoarthritis, knee Osteonecrosis of right hip Papanicolaou smear declined Paroxysmal atrial fibrillation Post-menopausal bleeding Type 2 diabetes mellitus with hyperglycemia, with long-term current use of insulin Type 2 diabetes mellitus with hyperglycemia, without long-term current use of insulin Uterine fibroid Vitamin D deficiency <ROBBIE Richter - Last Filed: 04/05/22 12:04> Surgical History: Surgical History H/O hernia repair History of cholecystectomy History of hip surgery History of hysterectomy Hx of section Hx of colonoscopy <ROBBIE Richter - Last Filed: 04/05/22 12:04> Family History Family History: Family History Father Myocardial infarction Cardiovascular disease Mother Diabetes mellitus Essential hypertension Daughter Anxiety disorder Mental health disorder Son Mental health disorder <ROBBIE Richter - Last Filed: 04/05/22 12:04> Social History Social History: Social History Household Members: Family Housing: House Do you presently have visiting nurse or other home services: No Alcohol intake: never Patient Tobacco Use Status: Never used Tobacco e-Cigarette/Vaping Use: Never Used Second Hand Smoke Exposure: No service: No Current occupational status: retired Cognitive needs: No Hearing needs: No Vision needs: Yes <ROBBIE Richter - Last Filed: 04/05/22 12:04> Physical Exam ED Vital Signs: Vital Signs - 24 hr 04/05/22 09:49 04/05/22 10:40 04/05/22 11:08 Temperature 98.4 F Pulse Rate 121 H 121 H 122 H Respiratory Rate 22 H 18 16 Blood Pressure 120/72 107/80 109/76 Pulse Oximetry 96 98 95 Oxygen Delivery Method Room Air Room Air Room Air 04/05/22 11:38 04/05/22 12:22 Temperature Pulse Rate 125 H 100 Respiratory Rate 18 16 Blood Pressure 121/90 H 110/86 Pulse Oximetry 96 Oxygen Delivery Method Room Air BMI result Body Mass Index 38.4 <ROBBIE Richter - Last Filed: 04/05/22 12:04> Vital Signs - 24 hr 04/05/22 09:49 04/05/22 10:40 04/05/22 11:08 Temperature 98.4 F Pulse Rate 121 H 121 H 122 H Respiratory Rate 22 H 18 16 Blood Pressure 120/72 107/80 109/76 Pulse Oximetry 96 98 95 Oxygen Delivery Method Room Air Room Air Room Air 04/05/22 11:38 04/05/22 12:22 Temperature Pulse Rate 125 H 100 Respiratory Rate 18 16 Blood Pressure 121/90 H 110/86 Pulse Oximetry 96 Oxygen Delivery Method Room Air BMI result Body Mass Index 38.4 <Wilber Kemp MD - Last Filed: 04/05/22 16:13> Appearance: Alert. Oriented X3. No acute distress. Eyes: Pupils equal, round and reactive to light. ENT: Pharynx normal. Neck: Normal inspection. Neck supple. +JVD CVS: tachycardic, irregularly irregular, no appreciated murmurPulses normal. Respiratory: No respiratory distress. Breath sounds Diminished at the bases bilaterally. Abdomen: obese, Soft and nontender. +BS x4 Skin: Skin warm and dry. Normal skin color. Normal skin turgor. No rashes. Extremities: 1+ lower extremity edema involving all the in lower legs. Neuro: Oriented X 3. No motor deficit. No sensory deficit. <ROBBIE Richter - Last Filed: 04/05/22 12:04> Course Course Course Narrative: 67-year-old female with a history recently diagnosed paroxysmal AFib status post cardioversion at the end of February, discharged on Eliquis and amiodarone who presents to the ER for evaluation of abnormal echocardiogram yesterday associated with worsening dyspnea on exertion and lower extremity edema. Echo from yesterday was reviewed. It looks like her heart rate was slightly rapid during the examination. She had and no significant change in her ejection fraction of 15-20% with regional wall motion abnormalities. Patient arrives to the ER with heart rates low 1 100s. Blood pressure is stable. She is slightly dyspneic when speaking but able to speak in complete sentences and oxygenating well. No appreciated rales on exam. She has peripheral edema and evidence of acute heart failure exacerbation. She has been inappropriately taking her amiodarone, significantly under dosing what was prescribed. This is most likely the etiology of her going back into AFib. Will touch base with Cardiology to see if they would like to cardiovert today in the emergency department or admit for rate control. <ROBBIE Richter - Last Filed: 04/05/22 12:04> Reevaluation(s) Reevaluation #1: Dr. Valdez recommending IV amiodarone load and infusion, IV Lasix and rate control. Will admit for further management. <ROBBIE Richter Last Filed: 04/05/22 12:04> Consultations Consultation #1: Cardiology Dr. Valdez <ROBBIE Richter Last Filed: 04/05/22 12:04> Medications Administered Generic Name Dose Route Start Last Admin Trade Name Freq PRN Reason Stop Dose Admin Digoxin 0.25 mg 04/05/22 12:00 04/05/22 12:24 Digoxin 0.5 Mg/2 Ml Ampul IVPUSH 04/06/22 00:01 0.25 mg Q6H CARLENE Administration Amiodarone HCl 900 mg/ Sodium 518 mls @ 34.533 mls/hr 04/05/22 10:30 04/05/22 11:05 Chloride IVCONT 1 mg/min .Q15H1M CARLENE 34.53 mls/hr Administration Protocol 1 MG/MIN Discontinued Medications Generic Name Dose Route Start Last Admin Trade Name Freq PRN Reason Stop Dose Admin Furosemide 40 mg 04/05/22 10:55 04/05/22 11:08 Furosemide 40 Mg/4 Ml Vial IVPUSH 04/05/22 10:56 40 mg STAT STA Administration Protocol Amiodarone HCl 150 mg in 100 mls @ 600 mls/hr 04/05/22 10:24 04/05/22 10:41 Nexterone IV 04/05/22 10:33 Infused ONCE ONE Infusion Metoprolol Tartrate 5 mg 04/05/22 11:20 04/05/22 11:38 Metoprolol Tartrate 5 Mg/5 Ml Vial IVPUSH 04/05/22 11:21 5 mg ONCE ONE Administration Potassium Chloride 40 meq 04/05/22 11:21 04/05/22 11:26 Potassium Chloride Packet 20 Meq Packet PO 04/05/22 11:22 40 meq ONCE ONE Administration <ROBBIE Richter - Last Filed: 04/05/22 12:04> Medications Administered Generic Name Dose Route Start Last Admin Trade Name Freq PRN Reason Stop Dose Admin Digoxin 0.25 mg 04/05/22 12:00 04/05/22 12:24 Digoxin 0.5 Mg/2 Ml Ampul IVPUSH 04/06/22 00:01 0.25 mg Q6H CARLENE Administration Amiodarone HCl 900 mg/ Sodium 518 mls @ 34.533 mls/hr 04/05/22 10:30 04/05/22 11:05 Chloride IVCONT 1 mg/min .Q15H1M CARLENE 34.53 mls/hr Administration Protocol 1 MG/MIN Discontinued Medications Generic Name Dose Route Start Last Admin Trade Name Freq PRN Reason Stop Dose Admin Furosemide 40 mg 04/05/22 10:55 04/05/22 11:08 Furosemide 40 Mg/4 Ml Vial IVPUSH 04/05/22 10:56 40 mg STAT STA Administration Protocol Amiodarone HCl 150 mg in 100 mls @ 600 mls/hr 04/05/22 10:24 04/05/22 10:41 Nexterone IV 04/05/22 10:33 Infused ONCE ONE Infusion Metoprolol Tartrate 5 mg 04/05/22 11:20 04/05/22 11:38 Metoprolol Tartrate 5 Mg/5 Ml Vial IVPUSH 04/05/22 11:21 5 mg ONCE ONE Administration Potassium Chloride 40 meq 04/05/22 11:21 04/05/22 11:26 Potassium Chloride Packet 20 Meq Packet PO 04/05/22 11:22 40 meq ONCE ONE Administration <Wilber Kemp MD - Last Filed: 04/05/22 16:13> Medical Decision Making Differential Diagnosis Differential Diagnoses: The differential diagnosis associated with the presentation includes <ROBBIE Richter - Last Filed: 04/05/22 12:04> acute heart failure exacerbation, rapid atrial fibrillation, volume overload, ACS,PE, myocarditis, pericardial effusion <ROBBIE Richter - Last Filed: 04/05/22 12:04> Admission/Observation Consideration of admission/observation: Escalation of care including admission/observation considered <ROBBIE Richter - Last Filed: 04/05/22 12:04> will require admission for rate control and IV diuresis <ROBBIE Richter - Last Filed: 04/05/22 12:04> Consult Healthcare Provider Management of the patient was discussed with: Hospitalist and [employer] <ROBBIE Richter - Last Filed: 04/05/22 12:04> Dr. valdez recommending IV amio and IV dig load. gentle IV diuresis <ROBBIE Richter - Last Filed: 04/05/22 12:04> Lab Data MDM Lab Attestation statement: I reviewed the patient's lab results. <ROBBIE Richter - Last Filed: 04/05/22 12:04> Result Diagrams: 04/05/22 10:22 01/20/23 10:22 <ROBBIE Richter - Last Filed: 04/05/22 12:04> Labs: Lab Results 04/05/22 04/05/22 04/05/22 Range/Units 10:22 10:22 10:22 WBC 8.5 (4.8-10.8) X10*3/uL RBC 4.77 (4.20-5.50) X10*6/uL Hgb 14.0 (12.0-16.0) g/dl Hct 42.2 (37.0-47.0) % MCV 88.5 (80.0-98.0) fL MCH 29.4 (27.0-33.0) pg MCHC 33.2 (31.0-35.0) g/dl RDW 13.5 (11.0-16.0) % Plt Count 234 (160-400) X10*3/uL MPV 9.5 (9.4-12.3) fL Immature Gran % (Auto) 0.2 (0.0-0.4) % Neut % (Auto) 49.1 (45-73) % Lymph % (Auto) 34.8 (20-40) % Webster % (Auto) 5.7 (2-11) % Eos % (Auto) 9.1 H (0-4) % Baso % (Auto) 1.1 (0-2) % Lymph # (Auto) 2.9 (1.2-4.9) X10*3/uL Webster # (Auto) 0.5 (0.1-1.2) X10*3/uL Eos # (Auto) 0.8 H (0.0-0.4) X10*3/uL Baso # (Auto) 0.1 (0.0-0.2) X10*3/uL Abs Immat Gran (auto) 0.02 (0.00-0.03) X10*3/uL Absolute Neuts (auto) 4.2 (2.0-8.3) x10*3/uL Absolute Nucleated RBC 0.000 (0.0-0.012) X10*3/uL Nucleated RBC % (auto) 0.0 (0.0-0.2) /100WBC PT (10.0-13.1) SEC INR (0.9-1.1) APTT (26.0-36.4) SEC Sodium 133 L (135-145) mmol/L Potassium 3.6 (3.3-5.1) mmol/L Chloride 102 (96-108) mmol/L Carbon Dioxide 20 L (22-29) mmol/L Anion Gap 15 (12-20) BUN 51 H (9-16) mg/dL Creatinine 1.26 (0.5-1.4) mg/dL Estim Creat Clear Calc 52.7 Estimated GFR 42 Random Glucose 224 H (60-115) mg/dL Calcium 9.0 (8.4-10.2) mg/dL Magnesium 2.1 (1.6-2.6) mg/dL Total Bilirubin 0.4 (0.0-1.0) mg/dL Direct Bilirubin < 0.2 (0.0-0.5) mg/dL AST 10 (5-31) U/L ALT 11 (0-31) U/L Alkaline Phosphatase 66 (39-117) U/L Troponin I High Sens 15.7 D (<3.5-17.0) ng/L B-Natriuretic Peptide (<100) pg/mL Total Protein 6.9 (6.5-8.0) g/dL Albumin 3.7 (3.5-5.0) g/dL COVID-19 (REAANN) (Negative) COVID-19 Clin Com 04/05/22 04/05/22 04/05/22 Range/Units 10:22 10:36 10:36 WBC (4.8-10.8) X10*3/uL RBC (4.20-5.50) X10*6/uL Hgb (12.0-16.0) g/dl Hct (37.0-47.0) % MCV (80.0-98.0) fL MCH (27.0-33.0) pg MCHC (31.0-35.0) g/dl RDW (11.0-16.0) % Plt Count (160-400) X10*3/uL MPV (9.4-12.3) fL Immature Gran % (Auto) (0.0-0.4) % Neut % (Auto) (45-73) % Lymph % (Auto) (20-40) % Webster % (Auto) (2-11) % Eos % (Auto) (0-4) % Baso % (Auto) (0-2) % Lymph # (Auto) (1.2-4.9) X10*3/uL Webster # (Auto) (0.1-1.2) X10*3/uL Eos # (Auto) (0.0-0.4) X10*3/uL Baso # (Auto) (0.0-0.2) X10*3/uL Abs Immat Gran (auto) (0.00-0.03) X10*3/uL Absolute Neuts (auto) (2.0-8.3) x10*3/uL Absolute Nucleated RBC (0.0-0.012) X10*3/uL Nucleated RBC % (auto) (0.0-0.2) /100WBC PT 12.3 (10.0-13.1) SEC INR 1.1 (0.9-1.1) APTT 34.0 (26.0-36.4) SEC Sodium (135-145) mmol/L Potassium (3.3-5.1) mmol/L Chloride (96-108) mmol/L Carbon Dioxide (22-29) mmol/L Anion Gap (12-20) BUN (9-16) mg/dL Creatinine (0.5-1.4) mg/dL Estim Creat Clear Calc Estimated GFR Random Glucose (60-115) mg/dL Calcium (8.4-10.2) mg/dL Magnesium (1.6-2.6) mg/dL Total Bilirubin (0.0-1.0) mg/dL Direct Bilirubin (0.0-0.5) mg/dL AST (5-31) U/L ALT (0-31) U/L Alkaline Phosphatase (39-117) U/L Troponin I High Sens (<3.5-17.0) ng/L B-Natriuretic Peptide 220 H (<100) pg/mL Total Protein (6.5-8.0) g/dL Albumin (3.5-5.0) g/dL COVID-19 (RAEANN) Negative (Negative) COVID-19 Clin Com See Note <ROBBIE Richter - Last Filed: 04/05/22 12:04> Lab Results 04/05/22 04/05/22 04/05/22 Range/Units 10:22 10:22 10:22 WBC 8.5 (4.8-10.8) X10*3/uL RBC 4.77 (4.20-5.50) X10*6/uL Hgb 14.0 (12.0-16.0) g/dl Hct 42.2 (37.0-47.0) % MCV 88.5 (80.0-98.0) fL MCH 29.4 (27.0-33.0) pg MCHC 33.2 (31.0-35.0) g/dl RDW 13.5 (11.0-16.0) % Plt Count 234 (160-400) X10*3/uL MPV 9.5 (9.4-12.3) fL Immature Gran % (Auto) 0.2 (0.0-0.4) % Neut % (Auto) 49.1 (45-73) % Lymph % (Auto) 34.8 (20-40) % Webster % (Auto) 5.7 (2-11) % Eos % (Auto) 9.1 H (0-4) % Baso % (Auto) 1.1 (0-2) % Lymph # (Auto) 2.9 (1.2-4.9) X10*3/uL Webster # (Auto) 0.5 (0.1-1.2) X10*3/uL Eos # (Auto) 0.8 H (0.0-0.4) X10*3/uL Baso # (Auto) 0.1 (0.0-0.2) X10*3/uL Abs Immat Gran (auto) 0.02 (0.00-0.03) X10*3/uL Absolute Neuts (auto) 4.2 (2.0-8.3) x10*3/uL Absolute Nucleated RBC 0.000 (0.0-0.012) X10*3/uL Nucleated RBC % (auto) 0.0 (0.0-0.2) /100WBC PT (10.0-13.1) SEC INR (0.9-1.1) APTT (26.0-36.4) SEC Sodium 133 L (135-145) mmol/L Potassium 3.6 (3.3-5.1) mmol/L Chloride 102 (96-108) mmol/L Carbon Dioxide 20 L (22-29) mmol/L Anion Gap 15 (12-20) BUN 51 H (9-16) mg/dL Creatinine 1.26 (0.5-1.4) mg/dL Estim Creat Clear Calc 52.7 Estimated GFR 42 Random Glucose 224 H (60-115) mg/dL Calcium 9.0 (8.4-10.2) mg/dL Magnesium 2.1 (1.6-2.6) mg/dL Total Bilirubin 0.4 (0.0-1.0) mg/dL Direct Bilirubin < 0.2 (0.0-0.5) mg/dL AST 10 (5-31) U/L ALT 11 (0-31) U/L Alkaline Phosphatase 66 (39-117) U/L Troponin I High Sens 15.7 D (<3.5-17.0) ng/L B-Natriuretic Peptide (<100) pg/mL Total Protein 6.9 (6.5-8.0) g/dL Albumin 3.7 (3.5-5.0) g/dL COVID-19 (RAEANN) (Negative) COVID-19 Clin Com 04/05/22 04/05/22 04/05/22 Range/Units 10:22 10:36 10:36 WBC (4.8-10.8) X10*3/uL RBC (4.20-5.50) X10*6/uL Hgb (12.0-16.0) g/dl Hct (37.0-47.0) % MCV (80.0-98.0) fL MCH (27.0-33.0) pg MCHC (31.0-35.0) g/dl RDW (11.0-16.0) % Plt Count (160-400) X10*3/uL MPV (9.4-12.3) fL Immature Gran % (Auto) (0.0-0.4) % Neut % (Auto) (45-73) % Lymph % (Auto) (20-40) % Webster % (Auto) (2-11) % Eos % (Auto) (0-4) % Baso % (Auto) (0-2) % Lymph # (Auto) (1.2-4.9) X10*3/uL Webster # (Auto) (0.1-1.2) X10*3/uL Eos # (Auto) (0.0-0.4) X10*3/uL Baso # (Auto) (0.0-0.2) X10*3/uL Abs Immat Gran (auto) (0.00-0.03) X10*3/uL Absolute Neuts (auto) (2.0-8.3) x10*3/uL Absolute Nucleated RBC (0.0-0.012) X10*3/uL Nucleated RBC % (auto) (0.0-0.2) /100WBC PT 12.3 (10.0-13.1) SEC INR 1.1 (0.9-1.1) APTT 34.0 (26.0-36.4) SEC Sodium (135-145) mmol/L Potassium (3.3-5.1) mmol/L Chloride (96-108) mmol/L Carbon Dioxide (22-29) mmol/L Anion Gap (12-20) BUN (9-16) mg/dL Creatinine (0.5-1.4) mg/dL Estim Creat Clear Calc Estimated GFR Random Glucose (60-115) mg/dL Calcium (8.4-10.2) mg/dL Magnesium (1.6-2.6) mg/dL Total Bilirubin (0.0-1.0) mg/dL Direct Bilirubin (0.0-0.5) mg/dL AST (5-31) U/L ALT (0-31) U/L Alkaline Phosphatase (39-117) U/L Troponin I High Sens (<3.5-17.0) ng/L B-Natriuretic Peptide 220 H (<100) pg/mL Total Protein (6.5-8.0) g/dL Albumin (3.5-5.0) g/dL COVID-19 (RAEANN) Negative (Negative) COVID-19 Clin Com See Note <Wilber Kemp MD - Last Filed: 04/05/22 16:13> Independent Interpretation I performed an independent interpretation of an: EKG and Plain X-Ray <ROBBIE Richter - Last Filed: 04/05/22 12:04> Interpretation: EKG done at 09:43 showing a flutter, ventricular rate 126, normal QTC, no appreciated ST segment elevations or depressions. Chest x-ray reviewed. Improved from prior. No longer has pleural effusions. Newly placed defibrillator vs external monitor, ?no wires <ROBBIE Richter - Last Filed: 04/05/22 12:04> Radiology Impression Discussion of test interpretation with radiology: I have reviewed the radiologist's reading. <ROBBIE Richter - Last Filed: 04/05/22 12:04> Radiologist Impression: IMPRESSION: *? Mild cardiomegaly. *? No acute pulmonary disease. <ROBBIE Richter - Last Filed: 04/05/22 12:04> External Record Review External record reviewed: Inpatient record, Office record, Outpatient record, Prior outpatient labs and Prior outpatient radiology <ROBBIE Richter Last Filed: 04/05/22 12:04> Chronic Conditions Patient?s care impacted by: Other (cardiac disease, noncompliance due to misunderstanding of directions) <ROBBIE Richter - Last Filed: 04/05/22 12:04> Attestation Attending Attestation: I personally reviewed PA/resident/nurse practitioner note. I reviewed a all results and treatment plan. I agree with the assessment and plan. I agree with disposition <Wilber Kemp MD - Last Filed: 04/05/22 16:13> Critical Care Time Critical Care Time Critical Care Time: Yes <ROBBIE Richter - Last Filed: 04/05/22 12:04> Total Critical Care Time: 48 <ROBBIE Richter - Last Filed: 04/05/22 12:04> Attestation: I have personally provided critical care time exclusive of time spent on separately billable procedures. Time includes review of lab data, radiology results, discussion with consultants, and monitoring for potential decompensation. Intervention performed as documented. <ROBBIE Richter - Last Filed: 04/05/22 12:04> Discharge Plan Discharge Clinical Impression: Atrial fibrillation with rapid ventricular response, Acute decompensated heart failure <ROBBIE Richter - Last Filed: 04/05/22 12:04> Patient Disposition: Admitted As Inpatient <ROBBIE Richter - Last Filed: 04/05/22 12:04> Interventions: Admission Worksheet (ED) Last Done: 04/05/22 15:00 <ROBBIE Richter - Last Filed: 04/05/22 12:04> Discharge Date/Time: 04/05/22 15:18 <ROBBIE Richter - Last Filed: 04/05/22 12:04>
[2022-04-05 10:28] LABS: MANUAL DIFF FLAG NO
[2022-04-05 10:29] LABS: Basophils Absolute Auto 0.1 X10*3/uL (0.0-0.2); Basophils Percent Auto 1.1 % (0-2); Eosinophils Absolute Auto 0.8 X10*3/uL (0.0-0.4); Eosinophils Percent Auto 9.1 % (0-4); Hematocrit 42.2 % (37.0-47.0); Imm Gran Abs Auto 0.02 X10*3/uL (0.00-0.03); Imm Gran Pct Auto 0.2 % (0.0-0.4); Lymphocytes Absolute Auto 2.9 X10*3/uL (1.2-4.9); Lymphocytes Percent Auto 34.8 % (20-40); Mean Corpuscular HGB Conc 33.2 g/dl (31.0-35.0); Mean Corpuscular Hemoglobin 29.4 pg (27.0-33.0); Mean Corpuscular Volume 88.5 fL (80.0-98.0); Mean Platelet Volume 9.5 fL (9.4-12.3); Monocytes Absolute Auto 0.5 X10*3/uL (0.1-1.2); Monocytes Percent Auto 5.7 % (2-11); Neutrophils Absolute Auto 4.2 x10*3/uL (2.0-8.3); Neutrophils Percent Auto 49.1 % (45-73); Platelet Count 234 X10*3/uL (160-400); Red Blood Count 4.77 X10*6/uL (4.20-5.50); Red Cell Distribution Width 13.5 % (11.0-16.0); White Blood Count 8.5 X10*3/uL (4.8-10.8)
[2022-04-05] MEDS: Amiodarone/Dextrose 150 MG/100 ML PLAST..BAG 600 MG IV (10:30)
[2022-04-05 10:51] LABS: INTERNATIONAL NORM RATIO 1.1 (0.9-1.1); Prothrombin Time 12.3 SEC (10.0-13.1)
[2022-04-05 10:56] LABS: COVID-19 Test Negative (Negative); IDNOW Serial# BCCEAD1C
[2022-04-05 11:00] LABS: B Type Natriuretic Peptide 220 pg/mL (<100)
[2022-04-05 11:01] LABS: Troponin-I High Sensitivity 15.7 ng/L (<3.5-17.0)
[2022-04-05 11:05] LABS: Alanine Aminotransferase 11 U/L (0-31); Albumin Level 3.7 g/dL (3.5-5.0); Alkaline Phosphatase 66 U/L (39-117); Anion Gap 15 (12-20); Aspartate Amino Transferase 10 U/L (5-31); Bilirubin Direct < 0.2 mg/dL (0.0-0.5); Bilirubin Total 0.4 mg/dL (0.0-1.0); Blood Urea Nitrogen 51 mg/dL (9-16); Carbon Dioxide 20 mmol/L (22-29); Chloride 102 mmol/L (96-108); Creatinine Clr Calc Pharmacy 52.7; Estimated Glomerular Filt Rate 42; Glucose Random 224 mg/dL (60-115); Potassium 3.6 mmol/L (3.3-5.1); Sodium 133 mmol/L (135-145); Total Protein 6.9 g/dL (6.5-8.0)
[2022-04-05] MEDS: Amiodarone HCL 900 MG in 0.9 % Sodium Chloride 500 ML 34.53 MG IVCONT (11:05)
[2022-04-05] MEDS: Furosemide 40 MG/4 ML VIAL IVPUSH (11:08)
--- NOTE | 2022-04-05 11:10 | PHA.MEDREC ---
Pharmacy Consult ? Medication Reconciliation Pharmacy has completed the medication reconciliation. Spoke to patient and called pharmacy. to confirm meds.
[2022-04-05] MEDS: Potassium Chloride Packet 20 MEQ PACKET 40 MEQ PO (11:26)
[2022-04-05] MEDS: Metoprolol Tartrate 5 MG/5 ML VIAL IVPUSH (11:38)
--- NOTE | 2022-04-05 11:38 | PM.CNCAR ---
History of Present Illness History of Present Illness Date of Service: 04/05/22 Requesting physician: Jovanna Caraballo Consult reason: atrial fibrillation and congestive heart failure Chief complaint: afib Narrative: I was requested to see Екатерина in cardiology consultation today for recurrent atrial fibrillation. July has a 67-year-old woman with complex past medical history with coronary disease not revascularize, ischemic cardiomyopathy admitted few weeks ago to the hospital with decompensated congestive in the setting of atrial fibrillation rapid ventricular response with worsening LV ejection fraction 10-15%. She was then diuresed and subsequently underwent TERRANCE guided cardioversion. She was subsequently IV amiodarone and was switched to p.o. amiodarone but because of allergy to red dye could not take traditional genetic amiodarone which contains red dye. She had to have a special order amiodarone without red diet. However there is some confusion for her regarding her dosing. She was advised to be taking 400 mg b.i.d. for 2 weeks but she has only been taking 200 mg daily. Will couple days ago she started noticing increasing shortness of breath around the house and then yesterday when she came in for echocardiogram she was very short of breath. Echocardiogram showed recurrent atrial fibrillation with mildly improved LV ejection fraction of 15-20%. However she is having more shortness of breath. Due to rapid heart rate and her worsening symptoms she is advised to come to the emergency room. She started noticing leg swelling starting on the right lower extremity. Just now she had significant chest pain retrosternal which was radiating to her back which has resolved. She remains in rapid atrial fibrillation. She has been started on IV amiodarone drip. She has been taking her oral anticoagulation religiously. Denies any lightheadedness, syncope. Review of Systems Constitutional: Constitutional: Reports no additional constitutional complaints Cardiovascular: Cardiovascular: Reports chest pain, Reports rapid heart rate, Reports leg edema, Denies lightheadedness, Reports dyspnea on exertion and Denies orthopnea Respiratory: Respiratory: Reports no additional respiratory complaints and Reports dyspnea on exertion Gastrointestinal: Gastrointestinal: Reports no additional gastrointestinal complaints Genitourinary: Genitourinary: Reports no additional female genitourinary complaints Musculoskeletal: Musculoskeletal: Reports no additional musculoskeletal complaints Integumentary/Breasts: Skin/Breast: Reports system reviewed and no additional complaints, except as docu Neurologic: Reports system reviewed and no additional complaints, except as documented Psychiatric: Psychiatric: Reports anxiety PMFSH Past Medical History Medical History Cardiomyopathy Colonoscopy refused Coronary arteriosclerosis Diabetes type 2, uncontrolled Diabetic neuropathy Endometrial adenocarcinoma Essential hypertension Hiatal hernia History of basal cell carcinoma History of cholelithiasis History of esophagitis Incomplete left bundle branch block (LBBB) Irritable bowel syndrome (IBS) Ischemic cardiomyopathy Mammogram declined Mild intermittent asthma Mixed dyslipidemia Morbid obesity Obesity due to excess calories Osteoarthritis, knee Osteonecrosis of right hip Papanicolaou smear declined Paroxysmal atrial fibrillation Post-menopausal bleeding Type 2 diabetes mellitus with hyperglycemia, with long-term current use of insulin Type 2 diabetes mellitus with hyperglycemia, without long-term current use of insulin Uterine fibroid Vitamin D deficiency Family History Family History Father Myocardial infarction Cardiovascular disease Mother Diabetes mellitus Essential hypertension Daughter Anxiety disorder Mental health disorder Son Mental health disorder Surgical History Surgical History H/O hernia repair History of cholecystectomy History of hip surgery History of hysterectomy Hx of section Hx of colonoscopy Social History Social History Household Members: Family Housing: House Do you presently have visiting nurse or other home services: No Alcohol intake: never Patient Tobacco Use Status: Never used Tobacco Smoked in Last 30 Days: No e-Cigarette/Vaping Use: Never Used Second Hand Smoke Exposure: No Use of substances other than those prescribed or required for medical reasons: No Advance Directives: No Advance Directives Information Provided: Yes service: No Current occupational status: retired Cognitive needs: No Hearing needs: No Vision needs: Yes Meds Allergies Allergy/AdvReac Type Severity Reaction Status Date / Time red dye [Red Dye] Allergy Severe HIVES,THROAT Verified 04/05/22 09:54 CLOSES FROM RED FOOD DYE Active Medications: Current Medications Amiodarone HCl 900 mg/ Sodium (Chloride) 518 mls @ 34.533 mls/hr IVCONT .Q15H1M [facility]; Protocol Last Admin: 04/05/22 11:05 Dose: 1 mg/min, 34.53 mls/hr Pharmacy Consult (Consult Rx Perform Med Rec) 1 each MISCELLANE ONCE PRN PRN Reason: Consult order Home Medications Medication Instructions Recorded Confirmed Last Taken Type aspirin 81 mg tablet,delayed 81 mg PO DAILY 10/17/21 04/05/22 04/04/22 History release (Adult Aspirin Regimen) blood-glucose meter (FreeStyle 10/25/21 01/28/22 Unknown History Lite Meter kit) lancets 28 gauge (FreeStyle 10/25/21 01/28/22 Unknown History Lancets) carvedilol 3.125 mg tablet 1 tab PO BID 03/12/22 04/05/22 03/26/22 History dulaglutide 1.5 mg/0.5 mL 1.5 mg subcut TU@0900 03/12/22 04/05/22 04/02/22 History subcutaneous pen injector (Trulicity) empagliflozin 25 mg tablet 1 tab PO DAILY 03/12/22 04/05/22 04/04/22 History (Jardiance) insulin degludec 100 unit/mL (3 42 unit subcut BEDTIME 03/12/22 04/05/22 04/04/22 History mL) subcutaneous pen (Tresiba FlexTouch U-100 insulin) insulin lispro 100 unit/mL 12 unit subcut TIDAC 03/12/22 04/05/22 04/04/22 History subcutaneous pen lisinopril 20 1 tab PO DAILY 03/12/22 04/05/22 04/04/22 History mg-hydrochlorothiazide 25 mg tablet Physical Exam Vital Signs: Vital Signs: Last Vital Signs Temp 98.4 F 04/05/22 09:49 Pulse 122 H 04/05/22 11:08 Resp 16 04/05/22 11:08 BP 109/76 04/05/22 11:08 Pulse Ox 95 04/05/22 11:08 O2 Del Method 04/05/22 11:08 BMI result Body Mass Index 38.4 Const: General: cooperative, comfortable, no acute distress, alert and awake Nutritional Appearance: obese Orientation/consciousness: patient oriented x3 Limitations: no limitations Neck: Neck: Yes trachea midline, Yes supple and Yes no JVD Resp: Effort & Inspection: normal respiratory effort Auscultation: clear to auscultation bilaterally Cardio: Jugular venous distension: no JVD Palpation: abnormal PMI displaced PMI Rate: tachycardic Rhythm: abnormal rhythm irregularly irregular Heart sounds: S1 normal heart sound present, S2 normal heart sound present, no click, no gallops, no murmurs and no rubs GI: Auscultation: normal bowel sounds Skin: General skin exam: no rashes or lesions noted Neuro: General: patient oriented x3 and no focal motor deficits Extrem: General: No clubbing, No cyanosis and Yes edema Objective Labs and Meds 04/05/22 10:22 04/05/22 10:22 Lab results: Laboratory Results - last 24 hr 04/05/22 04/05/22 04/05/22 10:22 10:22 10:22 WBC 8.5 RBC 4.77 Hgb 14.0 Hct 42.2 MCV 88.5 MCH 29.4 MCHC 33.2 RDW 13.5 Plt Count 234 MPV 9.5 Immature Gran % (Auto) 0.2 Neut % (Auto) 49.1 Lymph % (Auto) 34.8 [place] % (Auto) 5.7 Eos % (Auto) 9.1 H Baso % (Auto) 1.1 Lymph # (Auto) 2.9 [place] # (Auto) 0.5 Eos # (Auto) 0.8 H Baso # (Auto) 0.1 Abs Immat Gran (auto) 0.02 Absolute Neuts (auto) 4.2 Absolute Nucleated RBC 0.000 Nucleated RBC % (auto) 0.0 PT INR APTT Sodium 133 L Potassium 3.6 Chloride 102 Carbon Dioxide 20 L Anion Gap 15 BUN 51 H Creatinine 1.26 Estim Creat Clear Calc 52.7 Estimated GFR 42 Random Glucose 224 H Calcium 9.0 Total Bilirubin 0.4 Direct Bilirubin < 0.2 AST 10 ALT 11 Alkaline Phosphatase 66 Troponin I High Sens 15.7 D B-Natriuretic Peptide Total Protein 6.9 Albumin 3.7 COVID-19 ([facility]) COVID-19 Clin Com 04/05/22 04/05/22 04/05/22 10:22 10:36 10:36 WBC RBC Hgb Hct MCV MCH MCHC RDW Plt Count MPV Immature Gran % (Auto) Neut % (Auto) Lymph % (Auto) [place] % (Auto) Eos % (Auto) Baso % (Auto) Lymph # (Auto) [place] # (Auto) Eos # (Auto) Baso # (Auto) Abs Immat Gran (auto) Absolute Neuts (auto) Absolute Nucleated RBC Nucleated RBC % (auto) PT 12.3 INR 1.1 APTT 34.0 Sodium Potassium Chloride Carbon Dioxide Anion Gap BUN Creatinine Estim Creat Clear Calc Estimated GFR Random Glucose Calcium Total Bilirubin Direct Bilirubin AST ALT Alkaline Phosphatase Troponin I High Sens B-Natriuretic Peptide 220 H Total Protein Albumin COVID-19 ([facility]) Negative COVID-19 Clin Com See Note Assessment and Plan (1) Atrial fibrillation with rapid ventricular response: Status: Acute Patient with recurrent acute atrial fibrillation rapid ventricular response causing symptomatic early heart failure syndrome in the setting of known severe ischemic cardiomyopathy with severe LV systolic dysfunction. Recurrent atrial fibrillation due to under dosing of amiodarone therapy. Discussed with her about this. She said there was some miscommunication regarding this. Agree with starting IV amiodarone for now for better rate control and eventually switching her to p.o. amiodarone loading. Would avoid synchronized cardioversion again given that she may recur with atrial fibrillation and will only pursue synchronized cardioversion if rate remains difficult control and she has progressive heart failure syndrome or after complete loading of amiodarone which will be another 7-8 days. Starting tomorrow rate is controlled will switch her to amiodarone 400 mg b.i.d. again. Continue full oral anticoagulation with Eliquis. For now with rate control can use digoxin 0.25 mg IV push q.6 x3 doses. continue all her oral carvedilol therapy. Can use p.r.n. Lopressor if needed. (2) Acute decompensated heart failure: Status: Acute Under least age decompensation of heart failure in the setting of severe ischemic cardiomyopathy due to atrial fibrillation rapid ventricular response. Gentle diuresis with Lasix IV 20 mg b.i.d.. Strict intake and output chart needs to be pursued. Continue Jardiance as well as carvedilol therapy. Switch lisinopril to Diovan 80 mg b.i.d.. Eventually plan to switch her to Entresto therapy. Eventually require evaluation for her ischemic cardiomyopathy with possible in for revascularization. Will continue to follow with you Time Spent With Patient Time: Total time managing care of this patient today ____ minutes. Procedures Date of Service Date of Service: 04/05/22
[2022-04-05 11:46] LABS: Magnesium 2.1 mg/dL (1.6-2.6)
--- NOTE | 2022-04-05 11:54 | P.HPHOSP_ITS ---
History of Present Illness Date of Service: 04/05/22 Chief Complaint: SOB, abnormal EKG Pt is a 67-year-old female with a PMH significant for?paroxysmal Afib on Eliquis and amiodarone, s/p cardioversion 03/13/22, HFrEF w/ EF 15%, triple vessel CAD, insulin-dependent DM2 with neuropathy, morbid obesity, HTN,?and endometrial cancer status post hysterectomy in November 2021 who presents to the ED with worsening SOB palpitations. Patient was recently admitted on 03/12/2022 for new onset AFib and acute CHF exacerbation; she was successfully cardioverted on 03/13/2022 S started on amiodarone. On discharge pt was supposed to be on a loading dose of amiodarone 400mg po bid for two weeks prior to her maintenance dose of 200mg daily. Pt has a red-dye allergy and needed a special order of amio darone that apparently caused some confusion at the pharmacy and the instructions on the bottle only had her taking one 200mg pill daily. Pt reports noticing SOB and mild palpitations with exertion two days ago while shopping. Yesterday symptoms were worse and occurred with even simple tasks such as washing dishes. Patient also noticed edema in her lower legs bilaterally. Patient had an appointment yesterday with Cardiology for a new echocardiogram. Earlier today cardiology called her to let her know that she was again in AFib with RVR and that she should return to the ED for further workup, treatment, and evaluation. While at the hospital patient also experienced an episode of substernal chest pressure/pain that began in the center of her chest that radiated to her back and spine, which felt like she was shot through with an arrow. This lasted around 10 minutes and has since resolved with metoprolol. In the ED patient was tachycardic in the low 120s, tachypneic at 22, but oxyg enating well at 96% on RA. Labs were significant for elevated BNP of 220, and random glucose of 224. CXR showed mild cardiomegaly with no acute pulmonary disease. EKG showed AFib with RVR. Last echocardiogram was yesterday which found mildly dilated left ventricle with severe LV systolic dysfunction with LVEF of 15-20% with suggestion of ischemic cardiomyopathy. Patient was found and recurrent atrial fibrillation with slight RVR. Cardiology was consulted and recommended starting the patient on an IV amiodarone load and infusion, IV Lasix, metoprolol prn, and 3 doses of digoxin 0.25 mg. Pt will be admitted to the hospital for treatment of?acute decompensated heart failure in setting of recurrent AFib with RVR with IV diuretics and IV amiodarone. Review of Systems Review of Systems: Worsening SOB x2 days Palpitations Chest pain/pressure radiating to the back and lasting 10 minutes Lower leg edema bilaterally Yes all other systems are reviewed and are negative [facility] Medical History Cardiomyopathy Colonoscopy refused Coronary arteriosclerosis Diabetes type 2, uncontrolled Diabetic neuropathy Endometrial adenocarcinoma Essential hypertension Hiatal hernia History of basal cell carcinoma History of cholelithiasis History of esophagitis Incomplete left bundle branch block (LBBB) Irritable bowel syndrome (IBS) Ischemic cardiomyopathy Mammogram declined Mild intermittent asthma Mixed dyslipidemia Morbid obesity Obesity due to excess calories Osteoarthritis, knee Osteonecrosis of right hip Papanicolaou smear declined Paroxysmal atrial fibrillation Post-menopausal bleeding Type 2 diabetes mellitus with hyperglycemia, with long-term current use of insulin Type 2 diabetes mellitus with hyperglycemia, without long-term current use of insulin Uterine fibroid Vitamin D deficiency Family History Father Myocardial infarction Cardiovascular disease Mother Diabetes mellitus Essential hypertension Daughter Anxiety disorder Mental health disorder Son Mental health disorder Surgical History H/O hernia repair History of cholecystectomy History of hip surgery History of hysterectomy Hx of section Hx of colonoscopy Social History Household Members: Family Housing: House Do you presently have visiting nurse or other home services: No Alcohol intake: never Patient Tobacco Use Status: Never used Tobacco Smoked in Last 30 Days: No e-Cigarette/Vaping Use: Never Used Second Hand Smoke Exposure: No Use of substances other than those prescribed or required for medical reasons: No Advance Directives: No Advance Directives Information Provided: Yes service: No Current occupational status: retired Cognitive needs: No Hearing needs: No Vision needs: Yes Meds Allergies Allergy/AdvReac Type Severity Reaction Status Date / Time red dye [Red Dye] Allergy Severe HIVES,THROAT Verified 04/05/22 09:54 CLOSES FROM RED FOOD DYE Active Medications: Current Medications Digoxin (Digoxin 0.5 Mg/2 Ml Ampul) 0.25 mg IVPUSH Q6H [facility] Stop: 04/06/22 00:01 Amiodarone HCl 900 mg/ Sodium (Chloride) 518 mls @ 34.533 mls/hr IVCONT .Q15H1M [facility]; Protocol Last Admin: 04/05/22 11:05 Dose: 1 mg/min, 34.53 mls/hr Pharmacy Consult (Consult Rx Perform Med Rec) 1 each MISCELLANE ONCE PRN PRN Reason: Consult order Home Medications Medication Instructions Recorded Confirmed Last Taken Type aspirin 81 mg tablet,delayed 81 mg PO DAILY 10/17/21 04/05/22 04/04/22 History release (Adult Aspirin Regimen) blood-glucose meter (FreeStyle 10/25/21 01/28/22 Unknown History Lite Meter kit) lancets 28 gauge (FreeStyle 10/25/21 01/28/22 Unknown History Lancets) carvedilol 3.125 mg tablet 1 tab PO BID 03/12/22 04/05/22 03/26/22 History dulaglutide 1.5 mg/0.5 mL 1.5 mg subcut TU@0900 03/12/22 04/05/22 04/02/22 History subcutaneous pen injector (Trulicity) empagliflozin 25 mg tablet 1 tab PO DAILY 03/12/22 04/05/22 04/04/22 History (Jardiance) insulin degludec 100 unit/mL (3 42 unit subcut BEDTIME 03/12/22 04/05/22 04/04/22 History mL) subcutaneous pen (Tresiba FlexTouch U-100 insulin) insulin lispro 100 unit/mL 12 unit subcut TIDAC 03/12/22 04/05/22 04/04/22 History subcutaneous pen lisinopril 20 1 tab PO DAILY 03/12/22 04/05/22 04/04/22 History mg-hydrochlorothiazide 25 mg tablet Physical Exam Vital Signs and Narrative: Vital Signs: Last Vital Signs Temp 98.4 F 04/05/22 09:49 Pulse 125 H 04/05/22 11:38 Resp 18 04/05/22 11:38 BP 121/90 H 04/05/22 11:38 Pulse Ox 95 04/05/22 11:08 O2 Del Method 04/05/22 11:08 BMI result Body Mass Index 38.4 Constitutional: Alert, in no acute distress. Mental Status: Oriented to person, place and time. Eyes: Pupils are equal, round, and reactive to light. Ear, Nose, and Throat: Oropharynx clear, mucous membranes moist. Ears and nose without deformities. Trachea midline. Respiratory: Clear to auscultation bilaterally. No wheezing, rales, or rhonchi. Cardiovascular: Irregularly irregular rhythm. Gastrointestinal: Abdomen soft, non-tender, non-distended. Normal bowel sounds. Neurologic: Cranial nerves II-XI are grossly intact. No focal neurological deficits. Moves all extremities spontaneously. Skin: No rashes or lesions noted. Musculoskeletal: No cyanosis or clubbing. Extremities: 1+ pitting edema bilaterally. Psychiatric: Normal mood and affect. Results Labs 04/05/22 10:22 04/05/22 10:22 Labs: Laboratory Results - last 24 hr 04/05/22 04/05/22 04/05/22 10:22 10:22 10:22 MCV 88.5 MCH 29.4 MCHC 33.2 RDW 13.5 Plt Count 234 MPV 9.5 Immature Gran % (Auto) 0.2 Neut % (Auto) 49.1 Lymph % (Auto) 34.8 [place] % (Auto) 5.7 Eos % (Auto) 9.1 H Baso % (Auto) 1.1 Lymph # (Auto) 2.9 [place] # (Auto) 0.5 Eos # (Auto) 0.8 H Baso # (Auto) 0.1 Abs Immat Gran (auto) 0.02 Absolute Neuts (auto) 4.2 Absolute Nucleated RBC 0.000 Nucleated RBC % (auto) 0.0 PT INR APTT Anion Gap 15 Estim Creat Clear Calc 52.7 Estimated GFR 42 Random Glucose 224 H Calcium 9.0 Magnesium 2.1 Total Bilirubin 0.4 Direct Bilirubin < 0.2 AST 10 ALT 11 Alkaline Phosphatase 66 Troponin I High Sens 15.7 D B-Natriuretic Peptide Total Protein 6.9 Albumin 3.7 COVID-19 ([facility]) COVID-19 Clin Com 04/05/22 04/05/22 04/05/22 10:22 10:36 10:36 MCV MCH MCHC RDW Plt Count MPV Immature Gran % (Auto) Neut % (Auto) Lymph % (Auto) [place] % (Auto) Eos % (Auto) Baso % (Auto) Lymph # (Auto) [place] # (Auto) Eos # (Auto) Baso # (Auto) Abs Immat Gran (auto) Absolute Neuts (auto) Absolute Nucleated RBC Nucleated RBC % (auto) PT 12.3 INR 1.1 APTT 34.0 Anion Gap Estim Creat Clear Calc Estimated GFR Random Glucose Calcium Magnesium Total Bilirubin Direct Bilirubin AST ALT Alkaline Phosphatase Troponin I High Sens B-Natriuretic Peptide 220 H Total Protein Albumin COVID-19 ([facility]) Negative COVID-19 Clin Com See Note Assessment and Plan (1) Atrial fibrillation with rapid ventricular response: Status: Acute (2) Acute decompensated heart failure: Status: Acute (3) Obesity, Class II, BMI 35-39.9: Status: Acute Plan Pt is a 67-year-old female with a PMH significant for?paroxysmal Afib on Eliquis and amiodarone, s/p cardioversion 03/13/22, HFrEF w/ EF 15%, triple vessel CAD, insulin-dependent DM2 with neuropathy, morbid obesity, HTN,?and endometrial cancer status post hysterectomy in November 2021 who presents to the ED with worsening SOB palpitations. Pt will be admitted to telemetry for treatment of?acute decompensated heart failure in setting of recurrent AFib with RVR with IV diuretics and IV amiodarone. AFib with RVR Likely secondary to under dosing of amiodarone therapy IV amiodarone today, switch to 400 mg po b.i.d. tomorrow Digoxin 0.25 mg IV push q.6 x3 doses Continue Eliquis Continue carvedilol Metoprolol p.r.n. Avoid synchronized cardioversion at this time his AFib may recur again Monitor on telemetry Acute decompensated heart failure Likely secondary to severe ischemic cardiomyopathy d/t AFib with RVR Last echocardiogram yesterday, mildly dilated left ventricle with severe LV systolic dysfunction with LVEF of 15-20% Gentle diuresis with Lasix IV 20 mg b.i.d., per cardiology Follow lytes, mg, I/O Switch lisinopril to valsartan 80mg po bid, with eventual plan to switch to Entresto, per cardiology HTN Hold lisinopril, switch to valsartan Insulin-dependent diabetes Hold home meds SSI, lantus CAD Continue home meds Obesity class II Encourage weight loss Full Code Attending:?Dr. Ruby DVT Prophylaxis: On Eliquis Pt will require a hospitalization of at least two nights for treatment of?acute decompensated heart failure in setting of recurrent AFib with RVR with IV diuretics and IV amiodarone. Time Spent With Patient Time: Total time managing care of this patient today ____ minutes. Quality Stroke Does the patient have a stroke diagnosis?: No VTE Prior VTE?: No VTE Risk Level:: Medical - moderate - high VTE Device Contraindication: Treatment Not Indicated VTE Drug Contraindication: N/A - Med Ordered
[2022-04-05] MEDS: Digoxin 0.5 MG/2 ML AMPUL 0.25 MG IVPUSH ×2 (12:24→17:18)
[2022-04-05 15:49] LABS: Glucose, Whole Blood 187 mg/dL (60-115)
[2022-04-05] MEDS: Insulin Lispro 100 UNIT/ML 3 ML VIAL SUBCUT ×2 (17:17→20:29)
[2022-04-05] MEDS: 0.9 % Sodium Chloride Flush 3 ML SYRINGE IVFLUSH ×2 (17:17→20:58)
[2022-04-05] MEDS: Furosemide 20 MG/2 ML VIAL IVPUSH (17:18)
[2022-04-05 20:18] LABS: Glucose, Whole Blood 252 mg/dL (60-115)
[2022-04-05] MEDS: Insulin Glargine,Hum.rec.anlog 100 UNIT/ML 10 ML VIAL 30 UNIT SUBCUT (20:29)
[2022-04-05] MEDS: Apixaban 5 MG TABLET PO (20:56)
[2022-04-05] MEDS: Valsartan 80 MG TABLET PO (20:56)
[2022-04-06] MEDS: Digoxin 0.5 MG/2 ML AMPUL 0.25 MG IVPUSH
[2022-04-06 03:34] VITALS: BP 95/54; PULSE 81; RESP 20; TEMP 36.2; O2SAT 95
[2022-04-06 07:00] LABS: Anion Gap 17 (12-20); Blood Urea Nitrogen 50 mg/dL (9-16); Carbon Dioxide 22 mmol/L (22-29); Chloride 103 mmol/L (96-108); Creatinine Clr Calc Pharmacy 51.1; Estimated Glomerular Filt Rate 41; Glucose Random 157 mg/dL (60-115); Potassium 4.1 mmol/L (3.3-5.1); Sodium 138 mmol/L (135-145)
[2022-04-06 07:04] VITALS: BP 132/71; PULSE 105; RESP 18; TEMP 36.6; O2SAT 98
[2022-04-06 07:30] LABS: Glucose, Whole Blood 192 mg/dL (60-115)
[2022-04-06] MEDS: Insulin Lispro 100 UNIT/ML 3 ML VIAL SUBCUT ×4 (08:02→20:58)
[2022-04-06] MEDS: Atorvastatin Calcium 40 MG TABLET PO (08:03)
[2022-04-06] MEDS: Furosemide 20 MG/2 ML VIAL IVPUSH ×2 (08:03→17:51)
[2022-04-06] MEDS: 0.9 % Sodium Chloride Flush 3 ML SYRINGE IVFLUSH ×3 (08:03→21:01)
[2022-04-06] MEDS: Valsartan 80 MG TABLET PO (08:03)
[2022-04-06] MEDS: Apixaban 5 MG TABLET PO ×2 (08:03→20:58)
[2022-04-06] MEDS: Empagliflozin 25 MG TABLET PO (08:03)
--- NOTE | 2022-04-06 09:00 | P.PNIM_ITS ---
Subjective Subjective Date of Service: 04/06/22 Interval History: cc: sob interval history:feeling better Physical Exam Vital Signs: Vital Signs: Last Vital Signs Temp 97.8 F 04/06/22 07:04 Pulse 105 H 04/06/22 07:04 Resp 18 04/06/22 07:04 BP 132/71 04/06/22 07:04 Pulse Ox 98 04/06/22 07:04 O2 Del Method 04/06/22 07:04 BMI result Body Mass Index 38.4 General: AO X 3, no acute distress Resp: CTA bilateral, no accessory muscles used CVS: S1,S2,irregular GI: soft, non tender, non distended Neuro: motor grossly intact, alert Psych: appropriate affect, appropriate insight Objective Data Active Medications Apixaban (Apixaban 5 Mg Tablet) 5 mg PO BID [facility] Last Admin: 04/06/22 08:03 Dose: 5 mg Documented By: URVASHI Atorvastatin Calcium (Atorvastatin Calcium 40 Mg Tablet) 40 mg PO DAILY [facility] Last Admin: 04/06/22 08:03 Dose: 40 mg Documented By: URVASHI Dextrose (Dextrose 50 % 25 Gm/50 Ml Syringe) 25 gm IVPUSH Q15M PRN; Protocol PRN Reason: per Hypoglycemia Standing Ord. Empagliflozin (Empagliflozin 25 Mg Tablet) 25 mg PO DAILY [facility] Last Admin: 04/06/22 08:03 Dose: 25 mg Documented By: URVASHI Furosemide (Furosemide 20 Mg/2 Ml Vial) 20 mg IVPUSH BID@0900,1800 [facility]; Protocol Last Admin: 04/06/22 08:03 Dose: 20 mg Documented By: URVASHI Glucose (Glucose Gel 15 Gm Gel..Gram.) 15 gm PO Q15M PRN; Protocol PRN Reason: per Hypoglycemia Standing Ord. Amiodarone HCl 900 mg/ Sodium (Chloride) 518 mls @ 34.533 mls/hr IVCONT .Q15H1M [facility]; Protocol Last Admin: 04/06/22 02:08 Dose: Not Given Documented By: MARISOL Non-Admin Reason: IV Running Insulin Glargine (Insulin Glargine,Hum.Rec.Anlog 100 Unit/Ml 10 Ml Vial) 30 unit SUBCUT BEDTIME [facility] Last Admin: 04/05/22 20:29 Dose: 30 unit Documented By: MARISOL Insulin Human Lispro (Insulin Lispro 100 Unit/Ml 3 Ml Vial) 0 unit SUBCUT QIDACHS [facility]; Protocol Last Admin: 04/06/22 08:02 Dose: 2 unit Documented By: URVASHI Pharmacy Consult (Consult Rx Perform Med Rec) 1 each MISCELLANE ONCE PRN PRN Reason: Consult order Sodium Chloride (0.9 % Sodium Chloride Flush 3 Ml Syringe) 3 ml IVFLUSH QSHIFT [facility] Last Admin: 04/06/22 08:03 Dose: 3 ml Documented By: URVASHI Valsartan (Valsartan 80 Mg Tablet) 80 mg PO BID [facility]; Protocol Last Admin: 04/06/22 08:03 Dose: 80 mg Documented By: URVASHI Labs 04/05/22 10:22 04/06/22 06:18 Labs: Laboratory Results - last 24 hr 04/05/22 04/05/22 04/05/22 10:22 10:22 10:22 MCV 88.5 MCH 29.4 MCHC 33.2 RDW 13.5 Plt Count 234 MPV 9.5 Immature Gran % (Auto) 0.2 Neut % (Auto) 49.1 Lymph % (Auto) 34.8 [place] % (Auto) 5.7 Eos % (Auto) 9.1 H Baso % (Auto) 1.1 Lymph # (Auto) 2.9 [place] # (Auto) 0.5 Eos # (Auto) 0.8 H Baso # (Auto) 0.1 Abs Immat Gran (auto) 0.02 Absolute Neuts (auto) 4.2 Absolute Nucleated RBC 0.000 Nucleated RBC % (auto) 0.0 PT INR APTT Anion Gap 15 Estim Creat Clear Calc 52.7 Estimated GFR 42 POC Glucose Random Glucose 224 H Calcium 9.0 Magnesium 2.1 Total Bilirubin 0.4 Direct Bilirubin < 0.2 AST 10 ALT 11 Alkaline Phosphatase 66 Troponin I High Sens 15.7 D B-Natriuretic Peptide Total Protein 6.9 Albumin 3.7 COVID-19 ([facility]) COVID-19 Clin Com 04/05/22 04/05/22 04/05/22 10:22 10:36 10:36 MCV MCH MCHC RDW Plt Count MPV Immature Gran % (Auto) Neut % (Auto) Lymph % (Auto) [place] % (Auto) Eos % (Auto) Baso % (Auto) Lymph # (Auto) [place] # (Auto) Eos # (Auto) Baso # (Auto) Abs Immat Gran (auto) Absolute Neuts (auto) Absolute Nucleated RBC Nucleated RBC % (auto) PT 12.3 INR 1.1 APTT 34.0 Anion Gap Estim Creat Clear Calc Estimated GFR POC Glucose Random Glucose Calcium Magnesium Total Bilirubin Direct Bilirubin AST ALT Alkaline Phosphatase Troponin I High Sens B-Natriuretic Peptide 220 H Total Protein Albumin COVID-19 ([facility]) Negative COVID-19 Clin Com See Note 04/05/22 04/05/22 04/06/22 15:15 20:12 06:18 MCV MCH MCHC RDW Plt Count MPV Immature Gran % (Auto) Neut % (Auto) Lymph % (Auto) [place] % (Auto) Eos % (Auto) Baso % (Auto) Lymph # (Auto) [place] # (Auto) Eos # (Auto) Baso # (Auto) Abs Immat Gran (auto) Absolute Neuts (auto) Absolute Nucleated RBC Nucleated RBC % (auto) PT INR APTT Anion Gap 17 Estim Creat Clear Calc 51.1 Estimated GFR 41 POC Glucose 187 H 252 H Random Glucose 157 H Calcium 9.0 Magnesium 2.0 Total Bilirubin Direct Bilirubin AST ALT Alkaline Phosphatase Troponin I High Sens B-Natriuretic Peptide Total Protein Albumin COVID-19 ([facility]) COVID-19 Clin Com 04/06/22 07:07 MCV MCH MCHC RDW Plt Count MPV Immature Gran % (Auto) Neut % (Auto) Lymph % (Auto) [place] % (Auto) Eos % (Auto) Baso % (Auto) Lymph # (Auto) [place] # (Auto) Eos # (Auto) Baso # (Auto) Abs Immat Gran (auto) Absolute Neuts (auto) Absolute Nucleated RBC Nucleated RBC % (auto) PT INR APTT Anion Gap Estim Creat Clear Calc Estimated GFR POC Glucose 192 H Random Glucose Calcium Magnesium Total Bilirubin Direct Bilirubin AST ALT Alkaline Phosphatase Troponin I High Sens B-Natriuretic Peptide Total Protein Albumin COVID-19 ([facility]) COVID-19 Clin Com Assessment and Plan (1) Obesity, Class II, BMI 35-39.9: Status: Acute Plan 67-year-old female with a PMH significant for?paroxysmal Afib on Eliquis and amiodarone, s/p cardioversion 03/13/22, HFrEF w/ EF 15%, triple vessel CAD, insulin-dependent DM2 with neuropathy, morbid obesity, HTN,?and endometrial cancer status post hysterectomy in November 2021?who presented to the ED with worsening SOB palpitations.?found to be in rapid afib paroxysmal AFib with RVR IV amiodarone Digoxin 0.25 mg IV push q.6 x3 doses Continue Eliquis Continue carvedilol rate better controlled, still in afib Acute on chronic chf with reduced EF Gentle diuresis with Lasix IV 20 mg b.i.d Follow lytes, mg, I/O Switched lisinopril to valsartan 80mg po bid, with eventual plan to switch to Entresto, jardiance also needs eventual ischemic work up HTN valsartan Insulin-dependent diabetes Hold home meds SSI, lantus CAD eliquis Obesity class II Encourage weight loss Full Code DVT Prophylaxis: On Eliquis reason for continued hospitalization:still in afib, iv diuresis Time Spent With Patient Time: Total time managing care of this patient today ____ minutes. Quality Stroke Does the patient have a stroke diagnosis?: No VTE Prior VTE?: No VTE Risk Level:: Medical - moderate - high VTE Device Contraindication: Treatment Not Indicated VTE Drug Contraindication: N/A - Med Ordered
[2022-04-06] MEDS: Amiodarone HCL 900 MG in 0.9 % Sodium Chloride 500 ML 17.27 MG IVCONT (10:07)
--- NOTE | 2022-04-06 10:54 | MHC.CM.PN ---
pt lives with and children cvid vax x 3 has own ride home dc plan home no servceis
[2022-04-06 11:42] VITALS: BP 128/64; PULSE 96; RESP 18; TEMP 36.7; O2SAT 98
[2022-04-06 11:44] LABS: Glucose, Whole Blood 205 mg/dL (60-115)
[2022-04-06] MEDS: carvediloL 6.25 MG TABLET PO (11:56)
--- NOTE | 2022-04-06 12:10 | PM.PNCARD ---
Subjective Subjective Date of Service: 04/06/22 Principal diagnosis: CHF, atrial fibrillation Interval history: Unfortunately no output is recorded. Patient is getting IV Lasix. Blood pressure is stable. Heart rate is improved compared to yesterday. She feels better. She says she has been diuresing well. Review of Systems Review of Systems Yes all other systems are reviewed and are negative Physical Exam Vital Signs: Last Vital Signs Temp 98.0 F 04/06/22 11:42 Pulse 96 04/06/22 11:42 Resp 18 04/06/22 11:42 BP 128/64 04/06/22 11:42 Pulse Ox 98 04/06/22 11:42 O2 Del Method 04/06/22 11:42 BMI result Body Mass Index 38.4 Const General: cooperative, comfortable and no acute distress Orientation/consciousness: patient oriented x3 Neck Neck: Yes normal visual inspection Resp Other: few faint rales right base Effort & Inspection: normal respiratory effort Auscultation: clear to auscultation bilaterally, no crackles, no rales, no rhonchi and no wheezes Cardio Rhythm: abnormal rhythm irregularly irregular Heart sounds: S1 normal heart sound present, S2 normal heart sound present, no gallops, no murmurs and no rubs Skin General skin exam: no rashes or lesions noted Neuro General: patient oriented x3 Extrem Other: mildly pitting edema noted in each lower leg and ankle region. She states much improved Psych Appearance: grossly normal Mental Status: mental status grossly normal Speech and movement: Normal speech and movement present Objective Labs and Meds 04/05/22 10:22 04/06/22 06:18 Lab results: Laboratory Results - last 24 hr 04/05/22 04/05/22 04/06/22 15:15 20:12 06:18 Sodium 138 Potassium 4.1 Chloride 103 Carbon Dioxide 22 Anion Gap 17 BUN 50 H Creatinine 1.30 Estim Creat Clear Calc 51.1 Estimated GFR 41 POC Glucose 187 H 252 H Random Glucose 157 H Calcium 9.0 Magnesium 2.0 04/06/22 04/06/22 07:07 11:27 Sodium Potassium Chloride Carbon Dioxide Anion Gap BUN Creatinine Estim Creat Clear Calc Estimated GFR POC Glucose 192 H 205 H Random Glucose Calcium Magnesium Progress Note: A&P Assessment and plan (1) Acute decompensated heart failure: Status: Acute Assessment and Plan: Acute decompensated heart failure improved with diuresis. Continue IV Lasix for 1 more day. Secondary significant ischemic cardiomyopathy as well as atrial fibrillation rapid ventricular response. Continue neurohormonal modulation with valsartan which will eventually be planned to be switched to Entresto as outpatient. Start carvedilol 6.25 mg b.i.d.. Continue strict intake and output chart which is not been pursued. Follow renal function as well as BNP tomorrow. Better rate control, see below. Continue Jardiance therapy. Out of bed to chair and ambulate today. CHF education to be provided. Eventually as outpatient once better control of atrial fibrillation will assess LV systolic function. Will also require viability study to assess for revascularization as outpatient. (2) Atrial fibrillation with rapid ventricular response: Status: Acute Assessment and Plan: Atrial fibrillation with rapid ventricular response much better rate control. Switch to p.o. amiodarone 400 mg b.i.d. for at least 1 week for full loading. Will pursue rate control for now but eventually pursue rhythm control after complete loading with amiodarone for at least 10 g. Add Coreg as above. Continue full oral anticoagulation. Time Spent With Patient Time: Total time managing care of this patient today ____ minutes. Progress Note: Quality Stroke Does the patient have a stroke diagnosis?: No Procedures Date of Service Date of Service: 04/06/22
[2022-04-06 15:20] VITALS: BP 115/68; PULSE 96; RESP 18; TEMP 36.6; O2SAT 99
[2022-04-06 16:34] LABS: Glucose, Whole Blood 208 mg/dL (60-115)
[2022-04-06 20:00] VITALS: BP 92/50; PULSE 92; RESP 18; TEMP 36.2; O2SAT 94
[2022-04-06] MEDS: Insulin Glargine,Hum.rec.anlog 100 UNIT/ML 10 ML VIAL 30 UNIT SUBCUT (20:59)
[2022-04-06 21:24] LABS: Glucose, Whole Blood 189 mg/dL (60-115)
[2022-04-06 23:41] VITALS: BP 86/66; PULSE 91; RESP 15; TEMP 36.2; O2SAT 95
--- NOTE | 2022-04-07 00:04 | PC.NURSE ---
Pt's B/P is 86/66.pt sitting up eating a sandwhich and denies any symptoms.pt's coreg,valsartan and amiodarone held this evening for B/P /. notified.
[2022-04-07 03:39] VITALS: BP 101/67; PULSE 101; RESP 15; TEMP 36.3; O2SAT 96
[2022-04-07 06:03] LABS: Hematocrit 44.1 % (37.0-47.0); Mean Corpuscular HGB Conc 31.7 g/dl (31.0-35.0); Mean Corpuscular Hemoglobin 29.3 pg (27.0-33.0); Mean Corpuscular Volume 92.3 fL (80.0-98.0); Mean Platelet Volume 9.9 fL (9.4-12.3); Platelet Count 198 X10*3/uL (160-400); Red Blood Count 4.78 X10*6/uL (4.20-5.50); Red Cell Distribution Width 13.6 % (11.0-16.0); White Blood Count 8.4 X10*3/uL (4.8-10.8)
[2022-04-07 06:35] LABS: Anion Gap 17 (12-20); Blood Urea Nitrogen 50 mg/dL (9-16); Calcium 9.2 mg/dL (8.4-10.2); Carbon Dioxide 23 mmol/L (22-29); Chloride 102 mmol/L (96-108); Creatinine Clr Calc Pharmacy 45.8; Estimated Glomerular Filt Rate 36; Glucose Fasting 192 mg/dL (60-99); Potassium 4.1 mmol/L (3.3-5.1); Sodium 138 mmol/L (135-145)
[2022-04-07 07:16] VITALS: BP 129/75; PULSE 100; RESP 18; TEMP 36.9; O2SAT 94
[2022-04-07 07:34] LABS: Glucose, Whole Blood 151 mg/dL (60-115)
[2022-04-07] MEDS: Insulin Lispro 100 UNIT/ML 3 ML VIAL SUBCUT (08:22)
[2022-04-07] MEDS: Valsartan 80 MG TABLET PO (08:23)
[2022-04-07] MEDS: carvediloL 6.25 MG TABLET PO (08:23)
[2022-04-07] MEDS: Empagliflozin 25 MG TABLET PO (08:23)
[2022-04-07] MEDS: Furosemide 20 MG/2 ML VIAL IVPUSH (08:23)
[2022-04-07] MEDS: Apixaban 5 MG TABLET PO (08:23)
[2022-04-07] MEDS: Atorvastatin Calcium 40 MG TABLET PO (08:23)
[2022-04-07] MEDS: 0.9 % Sodium Chloride Flush 3 ML SYRINGE IVFLUSH (08:31)
--- NOTE | 2022-04-07 11:01 | PM.DS ---
DS: Providers Provider Date of Service: 04/07/22 Date of admission: 04/05/22 12:41 Primary care physician: Lily Menjivar MD Consults: 04/05/22 10:55 Consult to Cardiology Stat Consulting Provider: Diego Valdez Reason for consultation: afib, CHF Has provider been notified: Yes DS: Diagnosis Discharge Diagnosis (1) Acute decompensated heart failure: Status: Acute (2) Atrial fibrillation with rapid ventricular response: Status: Acute DS: Summary Hospital Course Hospital Course: from initial hpi: Chief Complaint: SOB, abnormal EKG Pt is a 67-year-old female with a PMH significant for?paroxysmal Afib on Eliquis and amiodarone, s/p cardioversion 03/13/22, HFrEF w/ EF 15%, triple vessel CAD, insulin-dependent DM2 with neuropathy, morbid obesity, HTN,?and endometrial cancer status post hysterectomy in November 2021?who presents to the ED with worsening SOB palpitations.? Patient was recently admitted on 03/12/2022 for new onset AFib and acute CHF exacerbation; she was successfully cardioverted on 03/13/2022 S started on amiodarone. On discharge pt was supposed to be on a loading dose of amiodarone 400mg po bid for two weeks prior to her maintenance dose of 200mg daily. Pt has a red-dye allergy and needed a special order of amiodarone that apparently caused some confusion at the pharmacy and the instructions on the bottle only had her taking one 200mg pill daily. Pt reports noticing SOB and mild palpitations with exertion two days ago while shopping. Yesterday symptoms were worse and occurred with even simple tasks such as washing dishes.? Patient also noticed edema in her lower legs bilaterally.? Patient had an appointment yesterday with Cardiology for a new echocardiogram.? Earlier today cardiology called her to let her know that she was again in AFib with RVR and that she should return to the ED for further workup, treatment, and evaluation.? While at the hospital patient also experienced an episode of substernal chest pressure/pain that began in the center of her chest that radiated to her back and spine, which felt like she was shot through with an arrow. This lasted around 10 minutes and has since resolved with metoprolol. In the ED patient was tachycardic in the low 120s, tachypneic at 22, but oxygenating well at 96% on RA. Labs were significant for elevated BNP of 220, and random glucose of 224. CXR showed mild cardiomegaly with no acute pulmonary disease.? EKG showed AFib with RVR.? Last echocardiogram was yesterday which found mildly dilated left ventricle with severe LV systolic dysfunction with LVEF of 15-20% with suggestion of ischemic cardiomyopathy.? Patient was found and recurrent atrial fibrillation with slight RVR. Cardiology was consulted and recommended starting the patient on an IV amiodarone load and infusion, IV Lasix, metoprolol prn, and 3 doses of digoxin 0.25 mg. Pt will be admitted to the hospital for treatment of?acute decompensated heart failure in setting of recurrent AFib with RVR with IV diuretics and IV amiodarone. hospital course: patient was admitted for paroxysmal atrial fibrillation with rapid ventricular response. She was loaded with IV amiodarone and digoxin. She was continued on Eliquis and carvedilol which has been increased to 12.5 mg b.i.d.. After IV amiodarone she was transitioned to p.o. 400 mg b.i.d. and will continue loading and then decrease to maintenance 200 mg daily. Patient was also treated for acute on chronic CHF with reduced ejection fraction. She diuresed well. Her lisinopril was switched to pulse are 10 with plan to eventually switch to Entresto. Jardiance was started. She will Ventolin need ischemic workup. Patient is still in atrial fibrillation per rate is better controlled. She will follow up outpatient for cardioversion. For hypertension she was continued on losartan and carvedilol. For diabetes she was continue on insulin. For coronary disease she was continued on Eliquis. For obesity weight loss recommended. Patient is feeling better will be discharged home. Time Spent with Patient Time attestation: Total time managing care of this patient today ____ minutes. Discharge coordination time: Greater than 30 minutes Quality: Safe Use of Opioids Does Pt have an Active Cancer Diagnosis on the Problem List?: No Quality: Stroke Does the patient have a stroke diagnosis?: No Physical Exam Vital Signs: Vital Signs: Last Vital Signs Temp 98.4 F 04/07/22 07:16 Pulse 100 04/07/22 07:16 Resp 18 04/07/22 07:16 BP 129/75 04/07/22 07:16 Pulse Ox 94 04/07/22 07:16 O2 Del Method 04/07/22 07:16 BMI result Body Mass Index 38.4 Const: General: cooperative, comfortable and no acute distress Orientation/consciousness: patient oriented x3 Neck: Neck: Yes normal visual inspection Resp: Other: few faint rales right base Effort & Inspection: normal respiratory effort Auscultation: clear to auscultation bilaterally, no crackles, no rales, no rhonchi and no wheezes Cardio: Rhythm: abnormal rhythm irregularly irregular Heart sounds: S1 normal heart sound present, S2 normal heart sound present, no gallops, no murmurs and no rubs Skin: General skin exam: no rashes or lesions noted Neuro: General: patient oriented x3 Extrem: Other: mildly pitting edema noted in each lower leg and ankle region. She states much improved Psych: Appearance: grossly normal Mental Status: mental status grossly normal Speech and movement: Normal speech and movement present DS: Data Data Completed and Pending Completed studies during hospitalization [Text1]: Procedures Jewish of Cardiac Rhythm, Single (03/12/22) Labs on day of discharge: Laboratory Results - last 24 hr 04/06/22 04/06/22 04/06/22 11:27 16:23 20:48 WBC RBC Hgb Hct MCV MCH MCHC RDW Plt Count MPV Absolute Nucleated RBC Nucleated RBC % (auto) Sodium Potassium Chloride Carbon Dioxide Anion Gap BUN Creatinine Estim Creat Clear Calc Estimated GFR POC Glucose 205 H 208 H 189 H Fasting Glucose Calcium 04/07/22 04/07/22 04/07/22 05:47 05:47 07:15 WBC 8.4 RBC 4.78 Hgb 14.0 Hct 44.1 MCV 92.3 MCH 29.3 MCHC 31.7 RDW 13.6 Plt Count 198 MPV 9.9 Absolute Nucleated RBC 0.000 Nucleated RBC % (auto) 0.0 Sodium 138 Potassium 4.1 Chloride 102 Carbon Dioxide 23 Anion Gap 17 BUN 50 H Creatinine 1.45 H Estim Creat Clear Calc 45.8 Estimated GFR 36 POC Glucose 151 H Fasting Glucose 192 H Calcium 9.2 Discharge Plan Discharge Anticipated Discharge Date/Time: 04/07/22 10:28 Patient Disposition: Home, Self-Care Discharge Diagnosis: aifb Referrals: Lily Menjivar MD [Primary Care Provider] - 1 Week Discharge Medications: New valsartan 80 mg Tablet 80 mg PO BID Qty: 60 0RF Protocol: Hold for SBP< HOLD for SBP < : 90 carvedilol [Coreg] 12.5 mg tablet 12.5 mg PO Q12H Qty: 60 0RF Rx Instructions: must administer with a meal/food Continued (DME) FreeStyle Lite Strips Strip See Rx Instructions .Route Qty: 100 5RF Rx Instructions: As directed check sugar twice a day before meals (DME) insulin syringe-needle U-100 [BD Veo Insulin Syringe UF] 1/2 mL 31 gauge x 15/64 syringe See Rx Instructions .Route Qty: 200 1RF Rx Instructions: As directed twice a day (DME) pen needle, diabetic [BD Ultra-Fine Short Pen Needle] 31 gauge x 5/16 needle See Rx Instructions .ROUTE .COMPLEX Qty: 100 3RF Dose Instruction: USE 1 PEN NEEDLE ONCE DAILY WITH LANTUS INSULIN Rx Instructions: USE 1 PEN NEEDLE ONCE DAILY WITH LANTUS INSULIN gabapentin 100 mg capsule 100 mg PO BID Qty: 60 0RF insulin lispro 100 unit/mL insulin pen 12 unit subcut TIDAC Rx Instructions: administer before meals Jardiance 25 mg tablet 1 tab PO DAILY insulin degludec [Tresiba FlexTouch U-100] 100 unit/mL (3 mL) insulin pen 42 unit subcut BEDTIME Trulicity 1.5 mg/0.5 mL Pen Injector 1.5 mg SUBCUT TU@0900 Eliquis 5 mg Tablet 5 mg PO BID Qty: 60 0RF furosemide [Lasix] 40 mg tablet 40 mg PO DAILY Qty: 30 0RF atorvastatin 40 mg tablet 40 mg PO DAILY 30 Days Qty: 30 11RF (DME) blood-glucose meter [FreeStyle Lite Meter] Kit See Rx Instructions .Route Rx Instructions: As directed (DME) lancets [FreeStyle Lancets] 28 gauge misc See Rx Instructions .Route Rx Instructions: As directed Changed amiodarone 200 mg tablet 400 mg PO BID 90 Days Qty: 90 0RF Rx Instructions: You should be on 200mg daily (Take one 200 mg tablet daily). Make sure these are dye free tablets Discontinued carvedilol 3.125 mg tablet 1 tab PO BID lisinopril-hydrochlorothiazide 20-25 mg tablet 1 tab PO DAILY aspirin [Adult Aspirin Regimen] 81 mg tablet,delayed release (DR/EC) 81 mg PO DAILY Discharge Orders: Discharge Order (Routine); Ordered 04/07/22 Ordered By: Hank Ruby Diet: Advance to usual diet Activity on Discharge: As tolerated Stand Alone Forms: Patient Portal Discharge page Care Plan Goals: manage afib Health Concerns: afib Plan of Treatment: amio 400mg bid for 7 days increase coreg , follow up cardio for cardioversion Assessment: see above Discharge Date/Time: 04/07/22 12:10
--- NOTE | 2022-04-07 11:11 | MHC.CM.PN ---
pt dcd home no servceis
--- NOTE | 2022-04-07 11:20 | PM.PNCARD ---
Subjective Subjective Date of Service: 04/07/22 Principal diagnosis: CHF, atrial fibrillation Interval history: Patient is feeling better. Hemodynamically stable. No orthopnea PND. Heart rate is better controlled but not optimal. Has exertional shortness of breath. Review of Systems Constitutional: Reports no additional constitutional complaints Eyes: Reports no additional eye complaints Cardiovascular: Reports chest pain, Denies lightheadedness, Denies Loss of Consciousness, Denies palpitations, Reports dyspnea on exertion and Denies orthopnea Respiratory: Reports no additional respiratory complaints and Reports dyspnea on exertion Gastrointestinal: Reports no additional gastrointestinal complaints Genitourinary: Reports no additional female genitourinary complaints Musculoskeletal: Reports no additional musculoskeletal complaints Skin/Breast: Reports system reviewed and no additional complaints, except as docu Reports system reviewed and no additional complaints, except as documented Psychiatric: Reports no additional psychiatric complaints Endocrine: Reports no additional endocrine complaints and Denies palpitations Physical Exam Vital Signs: Last Vital Signs Temp 98.4 F 04/07/22 07:16 Pulse 100 04/07/22 07:16 Resp 18 04/07/22 07:16 BP 129/75 04/07/22 07:16 Pulse Ox 94 04/07/22 07:16 O2 Del Method 04/07/22 07:16 BMI result Body Mass Index 38.4 Const General: cooperative, comfortable and no acute distress Orientation/consciousness: patient oriented x3 Neck Neck: Yes normal visual inspection Resp Other: few faint rales right base Effort & Inspection: normal respiratory effort Auscultation: clear to auscultation bilaterally, no crackles, no rales, no rhonchi and no wheezes Cardio Rhythm: abnormal rhythm irregularly irregular Heart sounds: S1 normal heart sound present, S2 normal heart sound present, no gallops, no murmurs and no rubs Skin General skin exam: no rashes or lesions noted Neuro General: patient oriented x3 Extrem Other: mildly pitting edema noted in each lower leg and ankle region. She states much improved Psych Appearance: grossly normal Mental Status: mental status grossly normal Speech and movement: Normal speech and movement present Objective Labs and Meds 04/07/22 05:47 04/07/22 05:47 Lab results: Laboratory Results - last 24 hr 04/06/22 04/06/22 04/06/22 11:27 16:23 20:48 WBC RBC Hgb Hct MCV MCH MCHC RDW Plt Count MPV Absolute Nucleated RBC Nucleated RBC % (auto) Sodium Potassium Chloride Carbon Dioxide Anion Gap BUN Creatinine Estim Creat Clear Calc Estimated GFR POC Glucose 205 H 208 H 189 H Fasting Glucose Calcium 04/07/22 04/07/22 04/07/22 05:47 05:47 07:15 WBC 8.4 RBC 4.78 Hgb 14.0 Hct 44.1 MCV 92.3 MCH 29.3 MCHC 31.7 RDW 13.6 Plt Count 198 MPV 9.9 Absolute Nucleated RBC 0.000 Nucleated RBC % (auto) 0.0 Sodium 138 Potassium 4.1 Chloride 102 Carbon Dioxide 23 Anion Gap 17 BUN 50 H Creatinine 1.45 H Estim Creat Clear Calc 45.8 Estimated GFR 36 POC Glucose 151 H Fasting Glucose 192 H Calcium 9.2 Progress Note: A&P Assessment and plan (1) Persistent atrial fibrillation: Status: Acute Assessment and Plan: Persistent atrial fibrillation with symptoms due to loss of AV synchrony. With maintains rhythm she is feeling a lot better. Will pursue rhythm control approach after complete loading of amiodarone. Will schedule for cardioversion on 04/15/2022. Continue full oral anticoagulation. For now continue amiodarone 400 mg b.i.d. on discharge and increase carvedilol to 12.5 mg b.i.d. for rate control. Management was discussed in details. (2) Acute decompensated heart failure: Status: Acute Assessment and Plan: Admitted with acute decompensated heart failure, doing clinically well. Switch to p.o. Lasix. Continue neurohormonal modulation with carvedilol, Jardiance as well as valsartan. Will switch her to Entresto therapy as outpatient. Heart failure management was discussed daily weight monitoring avoidance of salt loading was discussed. Once achieved rhythm control will repeat echocardiogram to assess improvement LVEF but will also need thallium viability study. Will follow up as outpatient. Patient can be discharged home today Time Spent With Patient Time: Total time managing care of this patient today ____ minutes. Progress Note: Quality Stroke Does the patient have a stroke diagnosis?: No Procedures Date of Service Date of Service: 04/07/22
== END 2022-04-07 12:10 | disposition home or self-care (01) | DRG 291 ==
LOC: HO.ED 11:41 → HO.EDOVER 12:52 → HO.IMC 14:14
PROVIDERS: Physician Assistant; Admitting Provider Student in an Organized Health Care Education/Training Program; Emergency Provider Emergency Medicine; PCP Internal Medicine; Visit Provider Internal Medicine
DX: I11.0 Hypertensive heart disease with heart failure (principal); I50.23 Acute on chronic systolic (congestive) heart failure; I48.19 Other persistent atrial fibrillation; E11.40 Type 2 diabetes mellitus with diabetic neuropathy, unspecified; I25.10 Atherosclerotic heart disease of native coronary artery without angina pectoris; I25.5 Ischemic cardiomyopathy; E66.8 Other obesity; Z68.38 Body mass index [BMI] 38.0-38.9, adult; Z85.42 Personal history of malignant neoplasm of other parts of uterus; Z79.4 Long term (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 of insulin; Z79.01 Long term (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 of anticoagulants; Z79.899 Other long term (current) drug therapy
CPT/HCPCS: 36415; 71045; 80048; 80076; 82947; 83735; 83880; 84484; 85025; 85027; 85610; 85730; 87635; 93005; 99221; 99285; J0282; J0283; J1160; J1940

== ENCOUNTER 2022-04-14 07:56 | Inpatient (IN) | payer MEDICARE, SELFPAY ==
--- NOTE | ~2022-04-14 | XR_ITS ---
EXAMINATION: XR CHEST CLINICAL INFORMATION: chest pain COMPARISON: cxr 04/05/22 TECHNIQUE: Frontal view of the chest was obtained. FINDINGS: No significant abnormality is noted involving the heart, lungs, mediastinum, bony thorax or soft tissues. XR/XR chest 1V IMPRESSION: Unremarkable examination.
--- NOTE | 2022-04-14 08:00 | ECG_ITS ---
Test Reason : CHEST PAIN Blood Pressure : / mmHG Vent. Rate : 096 BPM Atrial Rate : 000 BPM P-R Int : 000 ms QRS Dur : 128 ms QT Int : 390 ms P-R-T Axes : 000 -31 139 degrees QTc Int : 492 ms Atrial flutter with variable block Left axis deviation Non-specific intra-ventricular conduction block Minimal voltage criteria for LVH, may be normal variant ( Payne product ) Abnormal ECG When compared with ECG of 05-APR-2022 09:43, No significant changes seen Referred By: Generic ED Physician Electronically Signed By:ERROL ANDUJAR
[2022-04-14 08:13] VITALS: BP 145/65; PULSE 86; RESP 18; O2SAT 98; BMI 30.9
--- NOTE | 2022-04-14 08:16 | PC.NURSE ---
67 y/o F pw intermittent chest pain, in afib but with hx of afib. VSS stable. pt ambulatory. denies SOB/palps. awaiting MD givens
[2022-04-14 08:45] LABS: MANUAL DIFF FLAG NO
[2022-04-14 08:52] LABS: INTERNATIONAL NORM RATIO 1.3 (0.9-1.1); Prothrombin Time 15.1 SEC (10.0-13.1)
[2022-04-14 08:59] LABS: Basophils Absolute Auto 0.1 X10*3/uL (0.0-0.2); Basophils Percent Auto 0.8 % (0-2); Eosinophils Absolute Auto 0.7 X10*3/uL (0.0-0.4); Eosinophils Percent Auto 9.8 % (0-4); Hematocrit 40.6 % (37.0-47.0); Imm Gran Abs Auto 0.02 X10*3/uL (0.00-0.03); Imm Gran Pct Auto 0.3 % (0.0-0.4); Lymphocytes Percent Auto 27.9 % (20-40); Mean Corpuscular Hemoglobin 29.2 pg (27.0-33.0); Mean Corpuscular Volume 91.2 fL (80.0-98.0); Monocytes Absolute Auto 0.4 X10*3/uL (0.1-1.2); Monocytes Percent Auto 5.4 % (2-11); Neutrophils Absolute Auto 3.9 x10*3/uL (2.0-8.3); Neutrophils Percent Auto 55.8 % (45-73); Platelet Count 210 X10*3/uL (160-400); Red Blood Count 4.45 X10*6/uL (4.20-5.50); Red Cell Distribution Width 14.4 % (11.0-16.0); White Blood Count 7.1 X10*3/uL (4.8-10.8)
[2022-04-14 09:06] LABS: Alanine Aminotransferase 10 U/L (0-31); Albumin Level 3.6 g/dL (3.5-5.0); Alkaline Phosphatase 71 U/L (39-117); Anion Gap 17 (12-20); Aspartate Amino Transferase 7 U/L (5-31); Bilirubin Total 0.7 mg/dL (0.0-1.0); Blood Urea Nitrogen 34 mg/dL (9-16); Calcium 8.8 mg/dL (8.4-10.2); Carbon Dioxide 23 mmol/L (22-29); Chloride 102 mmol/L (96-108); Creatinine Clr Calc Pharmacy 39.4; Estimated Glomerular Filt Rate 36; Glucose Random 242 mg/dL (60-115); Lipase 28 U/L (8-78); Magnesium 1.9 mg/dL (1.6-2.6); Potassium 3.7 mmol/L (3.3-5.1); Sodium 138 mmol/L (135-145); Total Protein 6.6 g/dL (6.5-8.0)
[2022-04-14 09:10] LABS: B Type Natriuretic Peptide 215 pg/mL (<100)
[2022-04-14 09:14] LABS: Troponin-I High Sensitivity 36.8 ng/L (<3.5-17.0)
--- NOTE | 2022-04-14 09:43 | ED.CHESTPAIN ---
HPI - Chest Pain General Chief Complaint: Chest Pain Stated Complaint: Afib Time Seen by Provider: 04/14/22 08:11 Source: patient and family ( at bedside) Mode of arrival: ambulatory Limitations: no limitations History of Present Illness HPI narrative: 67-year-old female with a PMHx significant for?paroxysmal Afib on Eliquis and amiodarone, s/p cardioversion 03/13/22, HFrEF w/ EF 15%, triple vessel CAD, insulin-dependent DM2 with neuropathy, morbid obesity, HTN,?and endometrial cancer status post hysterectomy in November 2021?who presents to the ED with c/o anterior diffuse chest pain and feeling like her heart is racing/palpitations that started around 7 a.m. this morning when she was sitting down at her computer at home. Reports she did not take her amiodarone or her Eliquis this morning although she did take her prescribed 40 mg of Lasix. She reports she has some shortness of breath, dyspnea on exertion and orthopnea although this has been improving not worse. She reports she has been coughing as well with cleared colored sputum Although this has been For the past few weeks and has been unchanged. she also reports generalized headaches, fatigue, malaise , lightheadedness and nausea with some throat irritation. Patient was recently admitted here on 04/05/2022 and discharged on 04/07/2022 for acute decompensated heart failure and atrial fibrillation with RVR where she was given IV amiodarone and digoxin. She was also treated for acute on chronic CHF with reduced ejection fracture with diuresis. She reports she is being followed by Dr. Valdez and she is supposed to have cardioversion with Dr. Valdez tomorrow. She denies any fevers , dizziness, feeling like she is going to pass out, change in vision, nasal congestion / rhinorrhea, sore throat, abdominal pain, back pain, dysuria, hematuria, abnormal vaginal discharge, black or bloody stools, calf tenderness, rashes, recent falls or trauma, others with similar symptoms or any other symptoms complaints or concerns at this time. MD complaint: chest pain Pertinent past history: coronary artery disease and other ( See above) Onset (ago): hour(s) (started around 07:00 prior to arrival) Timing of current episode: constant Prior episodes: Yes Onset: during rest ( while sitting at her computer table) Pain location: other ( diffusely across the entire anterior chest) Pain radiation: none Severity: mild Quality: aching Relieving factors: nothing Exacerbating factors: nothing Associated symptoms: nausea, dyspnea, palpitations, cough and leg swelling Treatment prior to arrival: other ( 40 mg furosemide as prescribed she took this morning) Risk Factors Coronary artery disease risk factors: hyperlipidemia and hypertension Thoracic aortic dissection risk factors: longstanding hypertension Related Data On Oral Contraceptives: No Home Medications Medication Instructions Recorded Confirmed blood-glucose meter (FreeStyle 10/25/21 01/28/22 Lite Meter kit) lancets 28 gauge (FreeStyle 10/25/21 01/28/22 Lancets) dulaglutide 1.5 mg/0.5 mL 1.5 mg subcut WE@0900 03/12/22 04/14/22 subcutaneous pen injector (Trulicity) empagliflozin 25 mg tablet 1 tab PO DAILY 03/12/22 04/14/22 (Jardiance) insulin degludec 100 unit/mL (3 42 unit subcut BEDTIME 03/12/22 04/14/22 mL) subcutaneous pen (Tresiba FlexTouch U-100 insulin) insulin lispro 100 unit/mL 12 unit subcut TIDAC 03/12/22 04/14/22 subcutaneous pen atorvastatin 40 mg tablet 40 mg PO BEDTIME 04/14/22 04/14/22 furosemide 40 mg tablet (Lasix) 40 mg PO BID 04/14/22 04/14/22 Previous Rx's Medication Instructions Recorded blood sugar diagnostic (FreeStyle #100 ea 10/11/20 Lite Strips) insulin syringe-needle U-100 1/2 #200 ea 11/13/21 mL 31 gauge x 15/64 (BD Veo Insulin Syringe Ultra-Fine) pen needle, diabetic 31 gauge x #100 ea 11/29/21 5/16 (BD Ultra-Fine Short Pen Needle) apixaban 5 mg tablet (Eliquis) 5 mg PO BID #60 tabs 03/16/22 gabapentin 100 mg capsule 100 mg PO BID #60 caps 03/20/22 carvedilol 12.5 mg tablet (Coreg) 12.5 mg PO Q12H #60 tabs 04/07/22 valsartan 80 mg tablet 80 mg PO BID #60 tabs 04/07/22 amiodarone 200 mg tablet 400 mg PO BID 11 days #44 tabs 04/08/22 Allergies Allergy/AdvReac Type Severity Reaction Status Date / Time red dye [Red Dye] Allergy Severe HIVES,THROAT Verified 04/14/22 08:17 CLOSES FROM RED FOOD DYE Review of Systems Review of Systems: Constitutional : + generalized fatigue/malaise, No Weight loss, No Fever, No Chills, No Night Sweats ENT/Mouth : No Hearing loss, No Ear Pain, No Nasal Congestion, No Sinus Pain, No Hoarseness, No sore throat, No Rhinorrhea, No Swallowing Difficulty Eyes: No Eye Pain, No Swelling, No Redness, No Foreign Body, No Discharge, No Vision Changes Cardiovascular : + Chest Pain, + SOB, + Dyspnea on Exertion, + Orthopnea, + Edema, + Palpitations Respiratory : + Cough, + Sputum, No Wheezing, No Smoke Exposure, No Dyspnea Gastrointestinal : + Nausea, No Vomiting, No Diarrhea, No Constipation, No abdominal Pain, No Hematochezia, No Melena Genitourinary : no irregular bleeding, No Dysuria, No Urinary Frequency, No Hematuria, No Urinary Incontinence, No Urgency, No Flank Pain, No Urinary Flow Changes, No Hesitancy Musculoskeletal : No joint pain, No Myalgias, No Joint Swelling Skin : No Skin Lesions, No rash Neuro : No Weakness, No Numbness, No Paresthesias, No Loss of Consciousness, No Dizziness, + Headache /lightheadedness Psych : No Anxiety/Panic, No Depression, No SI/HI/AH/VH, No Social Issues, Heme/Lymph: No Bruising, No Bleeding,No Lymphadenopathy Endocrine : No Polyuria, No Polydipsia, No Temperature Intolerance Yes all other systems are reviewed and are negative [facility] Past Medical History Attestation statement: The following information was validated with the patient. Source: old records reviewed, obtained from family and nursing notes reviewed Medical History Cardiomyopathy Colonoscopy refused Coronary arteriosclerosis Diabetes type 2, uncontrolled Diabetic neuropathy Endometrial adenocarcinoma Essential hypertension Hiatal hernia History of basal cell carcinoma History of cholelithiasis History of esophagitis Incomplete left bundle branch block (LBBB) Irritable bowel syndrome (IBS) Ischemic cardiomyopathy Mammogram declined Mild intermittent asthma Mixed dyslipidemia Morbid obesity Obesity due to excess calories Osteoarthritis, knee Osteonecrosis of right hip Papanicolaou smear declined Paroxysmal atrial fibrillation Post-menopausal bleeding Type 2 diabetes mellitus with hyperglycemia, with long-term current use of insulin Type 2 diabetes mellitus with hyperglycemia, without long-term current use of insulin Uterine fibroid Vitamin D deficiency Surgical History H/O hernia repair History of cholecystectomy History of hip surgery History of hysterectomy Hx of section Hx of colonoscopy Family History Family History Father Myocardial infarction Cardiovascular disease Mother Diabetes mellitus Essential hypertension Daughter Anxiety disorder Mental health disorder Son Mental health disorder Social History Social History Household Members: Family Housing: House Do you presently have visiting nurse or other home services: No Alcohol intake: never Patient Tobacco Use Status: Never used Tobacco e-Cigarette/Vaping Use: Never Used Second Hand Smoke Exposure: No Advance Directives: No Advance Directives Information Provided: No service: No Current occupational status: retired Cognitive needs: No Hearing needs: No Vision needs: Yes Physical Exam Vital Signs: Vital Signs: Last Vital Signs Pulse 75 04/14/22 12:15 Resp 12 04/14/22 12:15 BP 107/73 04/14/22 12:15 Pulse Ox 100 04/14/22 12:15 O2 Del Method 04/14/22 12:15 BMI result Body Mass Index 30.9 vital signs have been reviewed as normal and appeared to be correct. Blood pressure 145/65 Heart rate normal. Respiration rate normal. Temperature normal. Oxygen saturation normal. Appearance: Alert. Oriented X3. No acute distress. Head: Normal external exam. Normocephalic. Atraumatic. Eyes: PERRLA. EOMI. Conjunctiva and sclera normal. Eyelids normal. ENT: EAC normal. TM WNL. Pharynx normal. Uvula midline. Moist mucous membranes. No lesions/ulcerations or masses noted on the tongue. Normal voice. No trismus noted. No drooling noted. No muffled voice noted. Neck: Normal inspection. Neck supple. FROM. No adenopathy. Thyroid Normal. No tracheal deviation noted. No crepitus is noted. No meningeal signs. No neck mass noted. No signs of trauma noted. CVS: Normal heart rate and rhythm. Heart sound normal. Pulses normal throughout. No murmurs/rales/gallops. Respiratory: No respiratory distress. Painless inspiration. Breath sounds normal. No wheezes/rales/rhonchi noted. Chest nontender. No crepitus is noted. No accessory muscle usage noted or decreased air movement noted. No signs of trauma. Abdomen: Soft and nontender. Nondistended. No guarding. No rigidity. Bowel sounds normal in all 4 quadrants. No distention noted. No organomegaly noted. No visible injury noted. No rebound tenderness. Negative Rovsing sign. Negative obturator's sign. Negative psoas sign. Negative Wang sign. Back: No CVA tenderness. Full range of motion noted. Nontender. No signs of trauma. Patient neuro intact bilaterally and distally on all 4 extremities. Patient's reflexes intact bilaterally and distally on all 4 extremities. No rashes/lesion/induration/fluctuance or signs of infection noted. Skin: Skin warm and dry. Normal skin color. Normal skin turgor. No rashes/lesions/lacerations noted. Extremities: + lower extremity edema. No calf tenderness is noted. Extremities exhibit normal range of motion and nontender. Neuro: Oriented X 3. No motor deficit. No sensory deficit. Reflexes normal. Normal steady gait. No focal neuro deficits noted. CN's II-XII intact bilaterally? Vascular: + radial pulses/+ 2 distal pedal pulses/+2 dorsalis pedis b/l. Normal cap refill. No cyanosis noted to upper extremity nails and lower extremity toes nails. Course Course Course Narrative: 8:30am - 67-year-old female with a PMHx significant for?paroxysmal Afib on Eliquis and amiodarone, s/p cardioversion 03/13/22, HFrEF w/ EF 15%, triple vessel CAD, insulin-dependent DM2 with neuropathy, morbid obesity, HTN,?and endometrial cancer status post hysterectomy in November 2021?who presents to the ED with c/o anterior diffuse chest pain and feeling like her heart is racing/palpitations that started around 7 a.m. this morning when she was sitting down at her computer at home. Reports she did not take her amiodarone or her Eliquis this morning although she did take her prescribed 40 mg of Lasix. reports associated headache, generalized fatigue/ malaise, lightheadedness, shortness of breath, dyspnea on exertion, orthopnea, productive cough with clear colored sputum, throat irritation and nausea. Patient was recently admitted here on 04/05/2022 and discharged on 04/07/2022 for acute decompensated heart failure and atrial fibrillation with RVR where she was given IV amiodarone and digoxin. She was also treated for acute on chronic CHF with reduced ejection fracture with diuresis. She reports she is being followed by Dr. Valdez and she is supposed to have cardioversion with Dr. Valdez tomorrow. This patient presents with chest pain, with a history suggestive of ACS vs CHF exacerbation vs atrial fibrillation. No evidence of shock on exam. EKG without signs of active ischemia. EKG without evidence of STEMI. Low suspicion for acute PE due to patient currently on anticoagulation taking as prescribed, pneumothorax, thoracic aortic dissection, cardiac effusion / tamponade. Overall, ACS is being considered given higher risk features, history & physical. Plan: therefore at this time will obtain labs, chest x-ray, COVID/RSV/ flu swab and re-evaluate. Will also consult with Cardiology once all labs are returned. Reevaluation(s) Reevaluation #1: Labs reviewed BUN/creatinine 34/1.45 this is similar when she was discharged here on 04/07/2022. - Random glucose 242. - Troponin 36.8. - BNP 215. - Patient negative for COVID/RSV/ flu. - Otherwise all other labs are within normal limits. EKG is atrial fibrillation with ventricular rate of 96 with left axis deviation nonspecific intraventricular conduction block with LVH with nonspecific T-wave abnormalities no acute ischemic change are noted. Similar compared to prior EKGs no acute ischemic change are noted today. Imaging - WNL no acute processes are noted. Plan: patient will need a repeat troponin due to mildly elevated. I also discussed this case with Dr. Dimas who recommended admission for this patient for further evaluation treatment and he recommended the patient being NPO at midnight. Patient is agreeable to this. Time: 09:45 Reevaluation #2: repeat troponin negative delta patient be admitting by the Hospital Service at this time. She was given her Eliquis and her amiodarone. Time: 12:17 Medical Decision Making Admission/Observation Consideration of admission/observation: Escalation of care including admission/observation considered Consult Healthcare Provider Management of the patient was discussed with: Hospitalist ( Discussed this case with Alexandra Mills the ID hospitalist who will admit at this time.) and Sales Agent [employer] Service ( I discussed this case with Dr. Dimas who reported the patient should be admitted and NPO at midnight for further evaluation treatment) Lab Data MDM Lab Attestation statement: I reviewed the patient's lab results. 04/14/22 08:41 04/14/22 08:41 Labs: Lab Results 04/14/22 04/14/22 04/14/22 Range/Units 08:41 08:41 08:41 WBC 7.1 (4.8-10.8) X10*3/uL RBC 4.45 (4.20-5.50) X10*6/uL Hgb 13.0 (12.0-16.0) g/dl Hct 40.6 (37.0-47.0) % MCV 91.2 (80.0-98.0) fL MCH 29.2 (27.0-33.0) pg MCHC 32.0 (31.0-35.0) g/dl RDW 14.4 (11.0-16.0) % Plt Count 210 (160-400) X10*3/uL MPV 10.0 (9.4-12.3) fL Immature Gran % (Auto) 0.3 (0.0-0.4) % Neut % (Auto) 55.8 (45-73) % Lymph % (Auto) 27.9 (20-40) % [place] % (Auto) 5.4 (2-11) % Eos % (Auto) 9.8 H (0-4) % Baso % (Auto) 0.8 (0-2) % Lymph # (Auto) 2.0 (1.2-4.9) X10*3/uL [place] # (Auto) 0.4 (0.1-1.2) X10*3/uL Eos # (Auto) 0.7 H (0.0-0.4) X10*3/uL Baso # (Auto) 0.1 (0.0-0.2) X10*3/uL Abs Immat Gran (auto) 0.02 (0.00-0.03) X10*3/uL Absolute Neuts (auto) 3.9 (2.0-8.3) x10*3/uL Absolute Nucleated RBC 0.000 (0.0-0.012) X10*3/uL Nucleated RBC % (auto) 0.0 (0.0-0.2) /100WBC PT 15.1 H (10.0-13.1) SEC INR 1.3 H (0.9-1.1) Sodium 138 (135-145) mmol/L Potassium 3.7 (3.3-5.1) mmol/L Chloride 102 (96-108) mmol/L Carbon Dioxide 23 (22-29) mmol/L Anion Gap 17 (12-20) BUN 34 H (9-16) mg/dL Creatinine 1.45 H (0.5-1.4) mg/dL Estim Creat Clear Calc 39.4 Estimated GFR 36 Random Glucose 242 H (60-115) mg/dL Calcium 8.8 (8.4-10.2) mg/dL Magnesium 1.9 (1.6-2.6) mg/dL Total Bilirubin 0.7 (0.0-1.0) mg/dL AST 7 (5-31) U/L ALT 10 (0-31) U/L Alkaline Phosphatase 71 (39-117) U/L Troponin I High Sens (<3.5-17.0) ng/L B-Natriuretic Peptide (<100) pg/mL Total Protein 6.6 (6.5-8.0) g/dL Albumin 3.6 (3.5-5.0) g/dL Lipase 28 (8-78) U/L Influenza Type A (PCR) (Negative) Influenza Type B (PCR) (Negative) RSV RNA Qual (PCR) (Negative) SARS-CoV-2 RNA (RT-PCR) (Negative) 04/14/22 04/14/22 04/14/22 Range/Units 08:41 08:41 08:41 WBC (4.8-10.8) X10*3/uL RBC (4.20-5.50) X10*6/uL Hgb (12.0-16.0) g/dl Hct (37.0-47.0) % MCV (80.0-98.0) fL MCH (27.0-33.0) pg MCHC (31.0-35.0) g/dl RDW (11.0-16.0) % Plt Count (160-400) X10*3/uL MPV (9.4-12.3) fL Immature Gran % (Auto) (0.0-0.4) % Neut % (Auto) (45-73) % Lymph % (Auto) (20-40) % [place] % (Auto) (2-11) % Eos % (Auto) (0-4) % Baso % (Auto) (0-2) % Lymph # (Auto) (1.2-4.9) X10*3/uL [place] # (Auto) (0.1-1.2) X10*3/uL Eos # (Auto) (0.0-0.4) X10*3/uL Baso # (Auto) (0.0-0.2) X10*3/uL Abs Immat Gran (auto) (0.00-0.03) X10*3/uL Absolute Neuts (auto) (2.0-8.3) x10*3/uL Absolute Nucleated RBC (0.0-0.012) X10*3/uL Nucleated RBC % (auto) (0.0-0.2) /100WBC PT (10.0-13.1) SEC INR (0.9-1.1) Sodium (135-145) mmol/L Potassium (3.3-5.1) mmol/L Chloride (96-108) mmol/L Carbon Dioxide (22-29) mmol/L Anion Gap (12-20) BUN (9-16) mg/dL Creatinine (0.5-1.4) mg/dL Estim Creat Clear Calc Estimated GFR Random Glucose (60-115) mg/dL Calcium (8.4-10.2) mg/dL Magnesium (1.6-2.6) mg/dL Total Bilirubin (0.0-1.0) mg/dL AST (5-31) U/L ALT (0-31) U/L Alkaline Phosphatase (39-117) U/L Troponin I High Sens 36.8 H D (<3.5-17.0) ng/L B-Natriuretic Peptide 215 H (<100) pg/mL Total Protein (6.5-8.0) g/dL Albumin (3.5-5.0) g/dL Lipase (8-78) U/L Influenza Type A (PCR) NEGATIVE (Negative) Influenza Type B (PCR) NEGATIVE (Negative) RSV RNA Qual (PCR) NEGATIVE (Negative) SARS-CoV-2 RNA (RT-PCR) NEGATIVE (Negative) 04/14/22 Range/Units 11:27 WBC (4.8-10.8) X10*3/uL RBC (4.20-5.50) X10*6/uL Hgb (12.0-16.0) g/dl Hct (37.0-47.0) % MCV (80.0-98.0) fL MCH (27.0-33.0) pg MCHC (31.0-35.0) g/dl RDW (11.0-16.0) % Plt Count (160-400) X10*3/uL MPV (9.4-12.3) fL Immature Gran % (Auto) (0.0-0.4) % Neut % (Auto) (45-73) % Lymph % (Auto) (20-40) % [place] % (Auto) (2-11) % Eos % (Auto) (0-4) % Baso % (Auto) (0-2) % Lymph # (Auto) (1.2-4.9) X10*3/uL [place] # (Auto) (0.1-1.2) X10*3/uL Eos # (Auto) (0.0-0.4) X10*3/uL Baso # (Auto) (0.0-0.2) X10*3/uL Abs Immat Gran (auto) (0.00-0.03) X10*3/uL Absolute Neuts (auto) (2.0-8.3) x10*3/uL Absolute Nucleated RBC (0.0-0.012) X10*3/uL Nucleated RBC % (auto) (0.0-0.2) /100WBC PT (10.0-13.1) SEC INR (0.9-1.1) Sodium (135-145) mmol/L Potassium (3.3-5.1) mmol/L Chloride (96-108) mmol/L Carbon Dioxide (22-29) mmol/L Anion Gap (12-20) BUN (9-16) mg/dL Creatinine (0.5-1.4) mg/dL Estim Creat Clear Calc Estimated GFR Random Glucose (60-115) mg/dL Calcium (8.4-10.2) mg/dL Magnesium (1.6-2.6) mg/dL Total Bilirubin (0.0-1.0) mg/dL AST (5-31) U/L ALT (0-31) U/L Alkaline Phosphatase (39-117) U/L Troponin I High Sens 33.1 H (<3.5-17.0) ng/L B-Natriuretic Peptide (<100) pg/mL Total Protein (6.5-8.0) g/dL Albumin (3.5-5.0) g/dL Lipase (8-78) U/L Influenza Type A (PCR) (Negative) Influenza Type B (PCR) (Negative) RSV RNA Qual (PCR) (Negative) SARS-CoV-2 RNA (RT-PCR) (Negative) Independent Interpretation I performed an independent interpretation of an: EKG (EKG is atrial fibrillation with ventricular rate of 96 with left axis deviation nonspecific intraventricular conduction block with LVH with nonspecific T-wave abnormalities no acute ischemic change are noted. Similar compared to prior EKGs no acute ischemic change are noted today.) and Plain X-Ray Interpretation: EXAMINATION: XR CHEST CLINICAL INFORMATION: chest pain COMPARISON: cxr 04/05/22 TECHNIQUE: Frontal view of the chest was obtained. FINDINGS: No significant abnormality is noted involving the heart, lungs, mediastinum, bony thorax or soft tissues. XR/XR chest 1V IMPRESSION: Unremarkable examination. Radiology Impression Discussion of test interpretation with radiology: I have reviewed the radiologist's reading. Independent Historian Clinical information obtained from an independent historian. History obtained from or confirmed by: Spouse External Record Review External record reviewed: Inpatient record, Office record, Outpatient record, Prior outpatient labs, Prior outpatient radiology, Primary care record and Outside ED record Chronic Conditions Patient?s care impacted by: Hypertension Critical Care Time Critical Care Time Critical Care Time: Yes Total Critical Care Time: 60 Attestation: I personally attest to this time spent taking care of the patient Discharge Plan Discharge Clinical Impression: Chest pain, Atrial fibrillation, LUIS FELIPE (acute kidney injury) Patient Disposition: Admitted As Inpatient
[2022-04-14 09:44] LABS: Influenza A PCR NEGATIVE (Negative); Influenza B PCR NEGATIVE (Negative); Resp Syncy Virus RNA Qual PCR NEGATIVE (Negative); SARS COV2 PCR INHOUSE NEGATIVE (Negative)
--- NOTE | 2022-04-14 11:54 | PHA.MEDREC ---
Pharmacy Consult ? Medication Reconciliation Pharmacy has completed the medication reconciliation. Spoke to patient which had med list with them.
[2022-04-14 12:07] LABS: Troponin-I High Sensitivity 33.1 ng/L (<3.5-17.0)
[2022-04-14 12:15] VITALS: BP 107/73; PULSE 75; RESP 12; O2SAT 100
[2022-04-14] MEDS: Apixaban 5 MG TABLET PO ×2 (12:20→19:48)
[2022-04-14] MEDS: Amiodarone HCL 200 MG TABLET PO (12:20)
--- NOTE | 2022-04-14 12:39 | P.HPHOSP_ITS ---
History of Present Illness Date of Service: 04/14/22 Attending physician on admission: Facundo Fajardo Chief Complaint: Chest discomfort, palpitations Pt is a 67-year-old female with a PMH significant for?paroxysmal AFib on Eliquis and amiodarone, s/p cardioversion 03/13/2022, HFrEFw/EF 15%, triple-vessel CAD, insulin-dependent DM 2 with neuropathy, morbid obesity, HTN, and endometrial cancer s/p hysterectomy in 11/2021 who presents to the ED with?shortness of breath and palpitations. Pt states that she went into her kitchen this morning around 6am and began feeling nausea, palpitations, and chest discomfort, which began in the center of her chest and soon spread to the whole chest and radiated up her neck. It felt like someone had beaten me up. Chest discomfort lasted for a few hours, worsening during that time. Pt also experienced lightheadedness, headache, and difficulty breathing. Patient was not scheduled to take her amiodarone and Eliquis until 11:30am; these were administered in the ED. Pt currently feels a lot better and denies chest pain/discomfort. SOB has improved. Patient also notes she has been feeling chronically tired and queasy since last discharge one week ago, and that her cough and fluid retention has worsened, especially in her belly but also in her legs bilaterally. Of note, pt was recently admitted on 04/05/21-04/07/21 for afib with RVR, likely d/t noncompliance with amiodarone, and acute CHF exacerbation. Pt is scheduled for cardioversion tomorrow with Dr. Valdez. Pt denies abdominal pain, F/C, N/V. In the ED vital signs are stable, labs were significant for creatinine 1.45 (near baseline), BP elevated at 215 (near baseline), above of troponin slightly elevated at 36.8 with repeat down trending at 33.1. CXR showed no acute cardiopulmonary process. EKG demonstrated atrial flutter with no evidence of ST elevations or depressions. Pt was given her morning doses of Eliquis and amiodorone. Pt will be admitted to observation on telemetry for treatment and further evaluation of symptomatic Afib with likely cardioversion tomorrow and CH F exacerbation. Review of Systems Review of Systems: Chest pain/discomfort radiating to neck x2 hours Palpitations Lightheadedness, headache Shortness of breath Worsening abdominal and bilateral lower leg edema Yes all other systems are reviewed and are negative [facility] Medical History Cardiomyopathy Colonoscopy refused Coronary arteriosclerosis Diabetes type 2, uncontrolled Diabetic neuropathy Endometrial adenocarcinoma Essential hypertension Hiatal hernia History of basal cell carcinoma History of cholelithiasis History of esophagitis Incomplete left bundle branch block (LBBB) Irritable bowel syndrome (IBS) Ischemic cardiomyopathy Mammogram declined Mild intermittent asthma Mixed dyslipidemia Morbid obesity Obesity due to excess calories Osteoarthritis, knee Osteonecrosis of right hip Papanicolaou smear declined Paroxysmal atrial fibrillation Post-menopausal bleeding Type 2 diabetes mellitus with hyperglycemia, with long-term current use of insulin Type 2 diabetes mellitus with hyperglycemia, without long-term current use of insulin Uterine fibroid Vitamin D deficiency Family History Father Myocardial infarction Cardiovascular disease Mother Diabetes mellitus Essential hypertension Daughter Anxiety disorder Mental health disorder Son Mental health disorder Surgical History H/O hernia repair History of cholecystectomy History of hip surgery History of hysterectomy Hx of section Hx of colonoscopy Social History Household Members: Family Housing: House Do you presently have visiting nurse or other home services: No Alcohol intake: never Patient Tobacco Use Status: Never used Tobacco e-Cigarette/Vaping Use: Never Used Second Hand Smoke Exposure: No Advance Directives: No Advance Directives Information Provided: No Nutrition Risks: No Nutritional Risk service: No Current occupational status: retired Cognitive needs: No Hearing needs: No Vision needs: Yes Meds Allergies Allergy/AdvReac Type Severity Reaction Status Date / Time red dye [Red Dye] Allergy Severe HIVES,THROAT Verified 04/14/22 08:17 CLOSES FROM RED FOOD DYE Active Medications: Current Medications Pharmacy Consult (Consult Rx Perform Med Rec) 1 each MISCELLANE ONCE PRN PRN Reason: Consult order Home Medications Medication Instructions Recorded Confirmed Last Taken Type blood-glucose meter (FreeStyle 10/25/21 01/28/22 Unknown History Lite Meter kit) lancets 28 gauge (FreeStyle 10/25/21 01/28/22 Unknown History Lancets) dulaglutide 1.5 mg/0.5 mL 1.5 mg subcut WE@0900 03/12/22 04/14/22 04/13/22 History subcutaneous pen injector (Trulicity) empagliflozin 25 mg tablet 1 tab PO DAILY 03/12/22 04/14/22 04/13/22 History (Jardiance) insulin degludec 100 unit/mL (3 42 unit subcut BEDTIME 03/12/22 04/14/22 04/13/22 History mL) subcutaneous pen (Tresiba FlexTouch U-100 insulin) insulin lispro 100 unit/mL 12 unit subcut TIDAC 03/12/22 04/14/22 04/13/22 History subcutaneous pen atorvastatin 40 mg tablet 40 mg PO BEDTIME 04/14/22 04/14/22 04/13/22 History furosemide 40 mg tablet (Lasix) 40 mg PO BID 04/14/22 04/14/22 04/14/22 07:00 History Physical Exam Vital Signs and Narrative: Vital Signs: Last Vital Signs Pulse 75 04/14/22 12:15 Resp 12 04/14/22 12:15 BP 107/73 04/14/22 12:15 Pulse Ox 100 04/14/22 12:15 O2 Del Method 04/14/22 12:15 BMI result Body Mass Index 30.9 Constitutional: Alert, in no acute distress. Mental Status: Oriented to person, place and time. Eyes: Pupils are equal, round, and reactive to light. Ear, Nose, and Throat: Oropharynx clear, mucous membranes moist. Ears and nose without deformities. Trachea midline. Respiratory: Clear to auscultation bilaterally. No wheezing, rales, or rhonchi. Cardiovascular: Irregularly regular rhythm. No murmurs, rubs, or gallops. Gastrointestinal: Abdomen soft, non-tender, slightly distended. Normal bowel sounds. Neurologic: Cranial nerves II-XII are grossly intact. No focal neurological deficits. Moves all extremities spontaneously. Skin: No rashes or lesions noted. Musculoskeletal: No cyanosis or clubbing. Extremities: 1+ pitting edema. Psychiatric: Normal mood and affect. Results Labs 04/14/22 08:41 04/14/22 08:41 Labs: Laboratory Results - last 24 hr 04/14/22 04/14/22 04/14/22 08:41 08:41 08:41 MCV 91.2 MCH 29.2 MCHC 32.0 RDW 14.4 Plt Count 210 MPV 10.0 Immature Gran % (Auto) 0.3 Neut % (Auto) 55.8 Lymph % (Auto) 27.9 [place] % (Auto) 5.4 Eos % (Auto) 9.8 H Baso % (Auto) 0.8 Lymph # (Auto) 2.0 [place] # (Auto) 0.4 Eos # (Auto) 0.7 H Baso # (Auto) 0.1 Abs Immat Gran (auto) 0.02 Absolute Neuts (auto) 3.9 Absolute Nucleated RBC 0.000 Nucleated RBC % (auto) 0.0 PT 15.1 H INR 1.3 H Anion Gap 17 Estim Creat Clear Calc 39.4 Estimated GFR 36 Random Glucose 242 H Calcium 8.8 Magnesium 1.9 Total Bilirubin 0.7 AST 7 ALT 10 Alkaline Phosphatase 71 Troponin I High Sens B-Natriuretic Peptide Total Protein 6.6 Albumin 3.6 Lipase 28 Influenza Type A (PCR) Influenza Type B (PCR) RSV RNA Qual (PCR) SARS-CoV-2 RNA (RT-PCR) 04/14/22 04/14/22 04/14/22 08:41 08:41 08:41 MCV MCH MCHC RDW Plt Count MPV Immature Gran % (Auto) Neut % (Auto) Lymph % (Auto) [place] % (Auto) Eos % (Auto) Baso % (Auto) Lymph # (Auto) [place] # (Auto) Eos # (Auto) Baso # (Auto) Abs Immat Gran (auto) Absolute Neuts (auto) Absolute Nucleated RBC Nucleated RBC % (auto) PT INR Anion Gap Estim Creat Clear Calc Estimated GFR Random Glucose Calcium Magnesium Total Bilirubin AST ALT Alkaline Phosphatase Troponin I High Sens 36.8 H D B-Natriuretic Peptide 215 H Total Protein Albumin Lipase Influenza Type A (PCR) NEGATIVE Influenza Type B (PCR) NEGATIVE RSV RNA Qual (PCR) NEGATIVE SARS-CoV-2 RNA (RT-PCR) NEGATIVE 04/14/22 11:27 MCV MCH MCHC RDW Plt Count MPV Immature Gran % (Auto) Neut % (Auto) Lymph % (Auto) [place] % (Auto) Eos % (Auto) Baso % (Auto) Lymph # (Auto) [place] # (Auto) Eos # (Auto) Baso # (Auto) Abs Immat Gran (auto) Absolute Neuts (auto) Absolute Nucleated RBC Nucleated RBC % (auto) PT INR Anion Gap Estim Creat Clear Calc Estimated GFR Random Glucose Calcium Magnesium Total Bilirubin AST ALT Alkaline Phosphatase Troponin I High Sens 33.1 H B-Natriuretic Peptide Total Protein Albumin Lipase Influenza Type A (PCR) Influenza Type B (PCR) RSV RNA Qual (PCR) SARS-CoV-2 RNA (RT-PCR) Imaging Radiologist's Impressions: Impressions Chest X-Ray 04/14/22 09:10 IMPRESSION: Unremarkable examination. Assessment and Plan (1) Atrial fibrillation: Status: Acute (2) Chest pain: Status: Acute (3) Morbid obesity: Status: Acute (4) Acute decompensated heart failure: Status: Acute Plan Pt is a 67-year-old female with a PMH significant for?paroxysmal AFib on Eliquis and amiodarone, s/p cardioversion 03/13/2022, HFrEFw/EF 15%, triple-vessel CAD, insulin-dependent DM 2 with neuropathy, morbid obesity, HTN, and endometrial cancer s/p hysterectomy in 11/2021 who presents to the ED with?shortness of breath and palpitations. Pt will be admitted to observation on telemetry for treatment and further evaluation of symptomatic Afib with likely cardioversion tomorrow and CHF exacerbation. Chest pain/discomfort, now resolved Likely secondary to an episode of AFib with RVR EKG demonstrated atrial flutter without any evidence of ST depressions or mathew vations Troponin 36.8 with repeat down trending to 33.1 Cardiology consult Monitor on telemetry Persistent atrial fibrillation Continue amiodarone, Eliquis, carvedilol NPO after midnight in anticipation for cardioversion tomorrow Cardiology consult Monitor on telemetry Acute on chronic CHF with reduced EF Likely secondary to AFib Gentle diuresis with Lasix IV 20 mg b.i.d. Follow lytes, mg, I/O Recently started on valsartan 80mg po bid, with eventual plan to switch to Entresto HTN Continue valsartan Insulin-dependent diabetes Hold home meds SSI, lantus CAD Continue home meds Obesity class II Encourage weight loss Full Code Attending:?Dr. Fajardo DVT Prophylaxis: On Eliquis Pt will be admitted to observation on telemetry for treatment and further evaluation of symptomatic Afib with likely cardioversion tomorrow and CHF exacerbation. Time Spent With Patient Time: Total time managing care of this patient today ____ minutes. Quality Stroke Does the patient have a stroke diagnosis?: No VTE Prior VTE?: No VTE Risk Level:: Medical - moderate - high VTE Device Contraindication: Treatment Not Indicated VTE Drug Contraindication: N/A - Med Ordered
--- NOTE | 2022-04-14 13:27 | HE.PHANOTE ---
RE: red dye allergy [place] to nurse Mary regarding red dye allergy, confirmed that pt had no problem taking Eliquis and amiodarone earlier today
--- NOTE | 2022-04-14 15:04 | PM.EVENT ---
Event Note Date of Service: 04/15/22 Event Note: This patient is seen and examined with APC. came to the hospital -due to palpatations/chest tightness -seems took hae lasix ,took her amio at the time we saw the patient-palpatations/chest tightness seems improved. ed physician d/w cardiology-need cardioversion in am, need telemonitering and need admission Lab imaging, EKG reviewed: significant for creatinine 1.45 (near baseline), BP seems fine, above of troponin slightly elevated at 36.8 with repeat down trending at 33.1. CXR showed no acute cardiopulmonary process. EKG demonstrated atrial flutter with no evidence of ST elevations or depressions.? ventricular rate runnin 90-100 range Physical exam and assessment and plan coordinated in APCs note, Agree with the plan in addition: Chest pain/discomfort/palpatations, now resolved Likely secondary to an episode of AFib with RVR. moniter tele ,continue home meds possible mild chf(HF with reduced EF),last EF around 10% -we will start iv lasix i/o ,daily weights ,npo past midnight for cardioversion Time Spent With Patient Time: Total time managing care of this patient today ____ minutes.
[2022-04-14 15:21] VITALS: BP 97/54; PULSE 77; RESP 16; TEMP 36.6; O2SAT 99
--- NOTE | 2022-04-14 15:38 | MHC.CM.PN ---
Met w/pt to discuss d/c planning needs: pt resides w/spouse and is independent w/all care needs: no services or DME. Spouse to transport, Vax x2, HCP on file and verified; [place] completed and will be scanned into EMR. CM to follow for any changes.
[2022-04-14 15:59] VITALS: BP 116/78; PULSE 82; RESP 16; TEMP 36.3; O2SAT 95
--- NOTE | 2022-04-14 16:00 | MHC.EDTECH ---
this pct assumed care of pt at 1545 pt vitals sign taken ,pt watching television ,call travis within reach .
[2022-04-14] MEDS: Furosemide 20 MG/2 ML VIAL IVPUSH (18:09)
[2022-04-14 18:42] LABS: Glucose, Whole Blood 206 mg/dL (60-115)
[2022-04-14] MEDS: Gabapentin 100 MG CAPSULE PO (19:47)
[2022-04-14] MEDS: Atorvastatin Calcium 40 MG TABLET PO (19:47)
[2022-04-14 20:00] VITALS: BP 109/59; PULSE 74; RESP 16; TEMP 36.3; O2SAT 97
[2022-04-14] MEDS: carvediloL 12.5 MG TABLET PO (20:42)
[2022-04-14 21:01] LABS: Glucose, Whole Blood 292 mg/dL (60-115)
[2022-04-14] MEDS: Amiodarone HCL 200 MG TABLET 400 MG PO (21:53)
[2022-04-14] MEDS: Valsartan 80 MG TABLET PO (21:53)
[2022-04-15] VITALS (16 sets, daily range): BP systolic 91–127; BP diastolic 43–89; PULSE 60–103; RESP 11–20; TEMP 36.2–37.2; O2SAT 94–99; BMI 39.6; BMI 40.8
--- NOTE | 2022-04-15 | ECG_ITS ---
Test Reason : S/P CARDIOVERSION Blood Pressure : / mmHG Vent. Rate : 068 BPM Atrial Rate : 068 BPM P-R Int : 198 ms QRS Dur : 120 ms QT Int : 420 ms P-R-T Axes : 060 -25 151 degrees QTc Int : 446 ms Normal sinus rhythm Left ventricular hypertrophy with QRS widening and repolarization abnormality ( R in aVL , Chris product ) Abnormal ECG When compared with ECG of 14-APR-2022 08:05, Previous ECG has undetermined rhythm, needs review Referred By: Cesar Storey Electronically Signed By:Cesar Storey
[2022-04-15 06:43] LABS: Glucose, Whole Blood 198 mg/dL (60-115)
[2022-04-15 07:59] LABS: Glucose, Whole Blood 187 mg/dL (60-115)
[2022-04-15 08:08] LABS: Anion Gap 16 (12-20); Blood Urea Nitrogen 34 mg/dL (9-16); Calcium 8.6 mg/dL (8.4-10.2); Carbon Dioxide 25 mmol/L (22-29); Chloride 104 mmol/L (96-108); Creatinine Clr Calc Pharmacy 40.8; Estimated Glomerular Filt Rate 38; Glucose Random 186 mg/dL (60-115); Magnesium 1.9 mg/dL (1.6-2.6); Potassium 3.7 mmol/L (3.3-5.1); Sodium 141 mmol/L (135-145)
--- NOTE | 2022-04-15 09:36 | PC.NURSE ---
BP low this AM 94/52 (66) - informed MD Fajardo and directed to hold BP meds this morning including Lasix. Dr. Storey at bedside with pt at this time, requesting Amiodarone to be given along with 40mg Lasix. BP at this time 109/69.
--- NOTE | 2022-04-15 10:18 | P.CONCA_ITS ---
History of Present Illness History of Present Illness Date of Service: 04/15/22 Requesting physician: Facundo Fajardo Chief complaint: CHF, CP Narrative: 67-year-old female who is here for shortness of breath and chest discomfort. In February 2022 she was admitted with congestive heart failure and echocardiography at that time showed severe LV dysfunction. This was thought to be related to tachycardia due to atrial fibrillation. She was cardioverted and was started on amiodarone but unfortunately went back into atrial fibrillation. Plan was to bring her back as outpatient today to repeat cardioversion but it appears she continued to gain weight and became short of breath. She also had central chest discomfort. Previously also when she came volume overloaded she had chest discomfort. She is in atrial fibrillation. She was taking amiodarone 200 mg daily and her dose was increased to 40 mg twice a day when she got admitted. Blood pressure has been somewhat soft and her medications were being held. She was only started on 20 mg IV b.i.d. Lasix and her home dose was 40 p.o. b.i.d.. She is able to lie flat in bed. [facility] Past Medical History Medical History Cardiomyopathy Colonoscopy refused Coronary arteriosclerosis Diabetes type 2, uncontrolled Diabetic neuropathy Endometrial adenocarcinoma Essential hypertension Hiatal hernia History of basal cell carcinoma History of cholelithiasis History of esophagitis Incomplete left bundle branch block (LBBB) Irritable bowel syndrome (IBS) Ischemic cardiomyopathy Mammogram declined Mild intermittent asthma Mixed dyslipidemia Morbid obesity Obesity due to excess calories Osteoarthritis, knee Osteonecrosis of right hip Papanicolaou smear declined Paroxysmal atrial fibrillation Post-menopausal bleeding Type 2 diabetes mellitus with hyperglycemia, with long-term current use of insulin Type 2 diabetes mellitus with hyperglycemia, without long-term current use of insulin Uterine fibroid Vitamin D deficiency Family History Family History Father Myocardial infarction Cardiovascular disease Mother Diabetes mellitus Essential hypertension Daughter Anxiety disorder Mental health disorder Son Mental health disorder Surgical History Surgical History H/O hernia repair History of cholecystectomy History of hip surgery History of hysterectomy Hx of section Hx of colonoscopy Social History Social History Household Members: Family Housing: House Do you presently have visiting nurse or other home services: No Alcohol intake: never Patient Tobacco Use Status: Never used Tobacco e-Cigarette/Vaping Use: Never Used Second Hand Smoke Exposure: No Advance Directives: No Advance Directives Information Provided: No Nutrition Risks: No Nutritional Risk service: No Current occupational status: retired Cognitive needs: No Hearing needs: No Vision needs: Yes Meds Allergies Allergy/AdvReac Type Severity Reaction Status Date / Time red dye [Red Dye] Allergy Severe HIVES,THROAT Verified 04/14/22 08:17 CLOSES FROM RED FOOD DYE Active Medications: Current Medications Amiodarone HCl (Amiodarone Hcl 400 Mg Tablet) 400 mg PO BID [facility] Stop: 04/19/22 21:05 Amiodarone HCl (Amiodarone Hcl 400 Mg Tablet) 200 mg PO DAILY [facility] Apixaban (Apixaban 5 Mg Tablet) 5 mg PO BID [facility] Last Admin: 04/14/22 19:48 Dose: 5 mg Atorvastatin Calcium (Atorvastatin Calcium 40 Mg Tablet) 40 mg PO BEDTIME [facility] Last Admin: 04/14/22 19:47 Dose: 40 mg Carvedilol (Carvedilol 6.25 Mg Tablet) 6.25 mg PO BID [facility]; Protocol Dextrose (Dextrose 50 % 25 Gm/50 Ml Syringe) 25 gm IVPUSH Q15M PRN; Protocol PRN Reason: per Hypoglycemia Standing Ord. Empagliflozin (Empagliflozin 25 Mg Tablet) 25 mg PO DAILY [facility] Furosemide (Furosemide 20 Mg/2 Ml Vial) 40 mg IVPUSH BID@0900,1800 CARLENE; Protocol Gabapentin (Gabapentin 100 Mg Capsule) 100 mg PO BID [facility] Last Admin: 04/15/22 08:53 Dose: Not Given Glucose (Glucose Gel 15 Gm Gel..Gram.) 15 gm PO Q15M PRN; Protocol PRN Reason: per Hypoglycemia Standing Ord. Insulin Glargine (Insulin Glargine,Hum.Rec.Anlog 100 Unit/Ml 10 Ml Vial) 29 unit SUBCUT BEDTIME [facility] Last Admin: 04/14/22 20:49 Dose: Not Given Insulin Human Lispro (Insulin Lispro 100 Unit/Ml 3 Ml Vial) 0 unit SUBCUT QIDACHS [facility]; Protocol Last Admin: 04/15/22 07:57 Dose: Not Given Pharmacy Consult (Consult Rx Perform Med Rec) 1 each MISCELLANE ONCE PRN PRN Reason: Consult order Sodium Chloride (0.9 % Sodium Chloride Flush 3 Ml Syringe) 3 ml IVFLUSH QSHIFT [facility] Last Admin: 04/15/22 03:23 Dose: Not Given Valsartan (Valsartan 80 Mg Tablet) 80 mg PO BID [facility]; Protocol Last Admin: 04/15/22 08:53 Dose: Not Given Home Medications Medication Instructions Recorded Confirmed Last Taken Type blood-glucose meter (FreeStyle 10/25/21 01/28/22 Unknown History Lite Meter kit) lancets 28 gauge (FreeStyle 10/25/21 01/28/22 Unknown History Lancets) dulaglutide 1.5 mg/0.5 mL 1.5 mg subcut WE@0900 03/12/22 04/14/22 04/13/22 History subcutaneous pen injector (Trulicity) empagliflozin 25 mg tablet 1 tab PO DAILY 03/12/22 04/14/22 04/13/22 History (Jardiance) insulin degludec 100 unit/mL (3 42 unit subcut BEDTIME 03/12/22 04/14/22 04/13/22 History mL) subcutaneous pen (Tresiba FlexTouch U-100 insulin) insulin lispro 100 unit/mL 12 unit subcut TIDAC 03/12/22 04/14/22 04/13/22 History subcutaneous pen atorvastatin 40 mg tablet 40 mg PO BEDTIME 04/14/22 04/14/22 04/13/22 History furosemide 40 mg tablet (Lasix) 40 mg PO BID 04/14/22 04/14/22 04/14/22 07:00 History Physical Exam Vital Signs: Vital Signs: Last Vital Signs Temp 98.9 F 04/15/22 08:03 Pulse 91 04/15/22 09:34 Resp 20 04/15/22 09:34 BP 109/69 04/15/22 09:34 Pulse Ox 94 04/15/22 08:03 O2 Del Method 04/15/22 08:03 BMI result Body Mass Index 30.9 GENERAL APPEARANCE: in no acute distress, pleasant. NECK: no carotid bruit, positive jugular venous distention. SKIN: no suspicious lesions, warm and dry. HEART: no murmurs, irregular rate and rhythm. LUNGS: clear to auscultation bilaterally. ABDOMEN: soft, nontender. Distended. EXTREMITIES: +2 edema. PERIPHERAL PULSES: equal. NEUROLOGIC: No gross deficits, AAO X 3 Objective Labs and Meds 04/14/22 08:41 04/15/22 07:33 Lab results: Laboratory Results - last 24 hr 04/14/22 04/14/22 04/14/22 11:27 18:39 20:58 Sodium Potassium Chloride Carbon Dioxide Anion Gap BUN Creatinine Estim Creat Clear Calc Estimated GFR POC Glucose 206 H 292 H Random Glucose Calcium Magnesium Troponin I High Sens 33.1 H 04/15/22 04/15/22 04/15/22 06:40 07:33 07:55 Sodium 141 Potassium 3.7 Chloride 104 Carbon Dioxide 25 Anion Gap 16 BUN 34 H Creatinine 1.40 Estim Creat Clear Calc 40.8 Estimated GFR 38 POC Glucose 198 H 187 H Random Glucose 186 H Calcium 8.6 Magnesium 1.9 Troponin I High Sens Assessment and Plan (1) Atrial fibrillation: Status: Acute (2) Cardiomyopathy: Status: Acute (3) Acute on chronic congestive heart failure: Status: Acute Plan Pleasant 67-year-old female who has tachycardia induced cardiomyopathy and underwent cardioversion February but went back into atrial fibrillation. She is coming back with congestive heart failure and volume overload. Increasing the Lasix to 40 mg IV b.i.d.. Decrease the carvedilol dose to 6.25 mg twice a day. Continue amiodarone 400 mg twice a day. She was due to undergo cardioversion today. Keep NPO for cardioversion. Please do not interrupt Eliquis. Chest discomfort was in the setting of significant volume overload in February and again she presented with volume overload and chest discomfort. She has underlying coronary disease with chronic total occlusion of the left circumflex artery and moderate disease in the LAD as well as right posterior descending artery. I think cardiovert and hopefully this improves her ejection fraction. I would consider repeat angiography on her in 1 month. Thank you for allowing me to participate in the care of your patient. Please feel free to contact me if you have any questions. Time Spent With Patient Time: Total time managing care of this patient today ____ minutes. Procedures Date of Service Date of Service: 04/15/22
[2022-04-15] MEDS: Furosemide 40 MG/4 ML VIAL IVPUSH (10:21)
[2022-04-15] MEDS: Gabapentin 100 MG CAPSULE PO ×2 (10:22→20:16)
[2022-04-15] MEDS: Apixaban 5 MG TABLET PO ×2 (10:22→20:15)
[2022-04-15] MEDS: Empagliflozin 25 MG TABLET PO (10:22)
[2022-04-15] MEDS: 0.9 % Sodium Chloride Flush 3 ML SYRINGE IVFLUSH ×3 (10:23→20:17)
--- NOTE | 2022-04-15 10:54 | MHC.SHP ---
Pre-Procedural Eval Section A Date of Service: 04/15/22 The patient is an INPATIENT: Yes Section B Chief Complaint: CHF, CP Details of Present Illness: Afib. tachycardia induced cardiomyopathy. for cardioversion. Allergies: Allergies Allergy/AdvReac Type Severity Reaction Status Date / Time red dye [Red Dye] Allergy Severe HIVES,THROAT Verified 04/14/22 08:17 CLOSES FROM RED FOOD DYE Plan Diagnosis/Plan: Unchanged I have reviewed the history and physical and performed a pertinent physical examination on my patient. No changes have occurred unless specified. Time Spent With Patient Time: Total time managing care of this patient today ____ minutes.
[2022-04-15 11:35] LABS: Appearance Urine Clear; Color Urine Yellow; Glucose Urine UA >=1000 mg/dL (Negative); Leukocyte Esterase Urine Small (1+) (Negative); Nitrite Urine Negative (Negative); UMIC TRIGGER UACC YES; Urine Blood Negative (Negative); Urine Ketones Negative (Negative); Urine Protein Negative (Neg-Trace)
[2022-04-15 11:37] LABS: Bacteria Urine 1+ (None Seen); Hyaline Casts Urine 0-2 /LPF (0-2); RBC Urine 0-2 /HPF (0-2); Squamous Epithelial Cell Urine 0-2 /HPF (0-2); UACC Culture Trigger YES; WBC Urine 21-50 /HPF (0-5)
--- NOTE | 2022-04-15 11:55 | PC.NURSE ---
report given to SSS - pt awaiting cardioversion today. all questions answered. pt resting comfortably in bed, VSS, pt remains NPO since last night aside from sips of water to take her morning medications. pt ambulating independently to bathroom.
[2022-04-15 12:50] LABS: Glucose, Whole Blood 182 mg/dL (60-115)
--- NOTE | 2022-04-15 12:56 | HO.ANESPROP2 ---
HPI - Anesthesia Eval Consult details Narrative: 67 yo female patient for Cardioversion. TERRANCE, Cardioversion 03/13/22 [facility] Active Problems Active Problems: All Active Problems (Updated 04/15/22 @ 12:58 by Penny Abreu MD) Acute on chronic congestive heart failure (Acute) Chest pain (Acute) Atrial fibrillation (Acute) LUIS FELIPE (acute kidney injury) (Acute) Persistent atrial fibrillation (Acute) Obesity, Class II, BMI 35-39.9 (Acute) Atrial fibrillation with rapid ventricular response (Acute) Acute decompensated heart failure (Acute) Cardiomyopathy (Acute)- TERRANCE 03/13/2022 EF 10-15% Paroxysmal atrial fibrillation (Acute) Morbid obesity (Acute) Colonoscopy refused (Acute) Abnormal nuclear cardiac imaging test (Acute) Incomplete left bundle branch block (LBBB) (Acute) Endometrial adenocarcinoma (Acute) Type 2 diabetes mellitus with hyperglycemia, with long-term current use of insulin (Acute) Obesity due to excess calories (Acute) Vitamin D deficiency (Acute) Mixed dyslipidemia (Acute) Papanicolaou smear declined (Acute) Mammogram declined (Acute) Osteoarthritis, knee (Acute) Diabetic neuropathy (Acute) Mild intermittent asthma (Acute) Hiatal hernia (Acute) Essential hypertension (Acute) Cough with CHF and since TERRANCE, Cardioversion 03/07. Intermittent- throat clearing ?LISHA (Not documented but observed with sedaion for cardioversion 04/15/22) Past Medical History Medical History Cardiomyopathy Colonoscopy refused Coronary arteriosclerosis Diabetes type 2, uncontrolled Diabetic neuropathy Endometrial adenocarcinoma Essential hypertension Hiatal hernia History of basal cell carcinoma History of cholelithiasis History of esophagitis Incomplete left bundle branch block (LBBB) Irritable bowel syndrome (IBS) Ischemic cardiomyopathy Mammogram declined Mild intermittent asthma Mixed dyslipidemia Morbid obesity Obesity due to excess calories Osteoarthritis, knee Osteonecrosis of right hip Papanicolaou smear declined Paroxysmal atrial fibrillation Post-menopausal bleeding Type 2 diabetes mellitus with hyperglycemia, with long-term current use of insulin Type 2 diabetes mellitus with hyperglycemia, without long-term current use of insulin Uterine fibroid Vitamin D deficiency Family History Family History Father Myocardial infarction Cardiovascular disease Mother Diabetes mellitus Essential hypertension Daughter Anxiety disorder Mental health disorder Son Mental health disorder Family history of problems with anesthesia: No Surgical History Surgical History H/O hernia repair History of cholecystectomy History of hip surgery History of hysterectomy Hx of section Hx of colonoscopy History of Problems with Anesthesia: No Social History Social History Household Members: Family Housing: House Do you presently have visiting nurse or other home services: No Alcohol intake: never Patient Tobacco Use Status: Never used Tobacco e-Cigarette/Vaping Use: Never Used Second Hand Smoke Exposure: No Advance Directives: No Advance Directives Information Provided: No Nutrition Risks: No Nutritional Risk service: No Current occupational status: retired Cognitive needs: No Hearing needs: No Vision needs: Yes Meds Allergies Allergy/AdvReac Type Severity Reaction Status Date / Time red dye [Red Dye] Allergy Severe HIVES,THROAT Verified 04/14/22 08:17 CLOSES FROM RED FOOD DYE Active Medications: Current Medications Albuterol Sulfate (Albuterol Sulfate (0.083%) 2.5 Mg/3 Ml Vial.Neb) 2.5 mg INHALE ONCE PRN PRN Reason: Shortness of Breath/Wheezing Amiodarone HCl (Amiodarone Hcl 400 Mg Tablet) 400 mg PO BID [facility] Stop: 04/19/22 21:05 Last Admin: 04/15/22 11:46 Dose: 400 mg Amiodarone HCl (Amiodarone Hcl 400 Mg Tablet) 200 mg PO DAILY [facility] Apixaban (Apixaban 5 Mg Tablet) 5 mg PO BID [facility] Last Admin: 04/15/22 10:22 Dose: 5 mg Atorvastatin Calcium (Atorvastatin Calcium 40 Mg Tablet) 40 mg PO BEDTIME [facility] Last Admin: 04/14/22 19:47 Dose: 40 mg Carvedilol (Carvedilol 6.25 Mg Tablet) 6.25 mg PO BID [facility]; Protocol Dextrose (Dextrose 50 % 25 Gm/50 Ml Syringe) 25 gm IVPUSH Q15M PRN; Protocol PRN Reason: per Hypoglycemia Standing Ord. Empagliflozin (Empagliflozin 25 Mg Tablet) 25 mg PO DAILY [facility] Last Admin: 04/15/22 10:22 Dose: 25 mg Furosemide (Furosemide 20 Mg/2 Ml Vial) 40 mg IVPUSH BID@0900,1800 [facility]; Protocol Gabapentin (Gabapentin 100 Mg Capsule) 100 mg PO BID [facility] Last Admin: 04/15/22 10:22 Dose: 100 mg Glucose (Glucose Gel 15 Gm Gel..Gram.) 15 gm PO Q15M PRN; Protocol PRN Reason: per Hypoglycemia Standing Ord. Lactated Ringer's (Lr) 1,000 mls @ 0 mls/hr IVCONT .Q0M [facility] Insulin Glargine (Insulin Glargine,Hum.Rec.Anlog 100 Unit/Ml 10 Ml Vial) 29 unit SUBCUT BEDTIME [facility] Last Admin: 04/14/22 20:49 Dose: Not Given Insulin Human Lispro (Insulin Lispro 100 Unit/Ml 3 Ml Vial) 0 unit SUBCUT QIDACHS [facility]; Protocol Last Admin: 04/15/22 07:57 Dose: Not Given Pharmacy Consult (Consult Rx Perform Med Rec) 1 each MISCELLANE ONCE PRN PRN Reason: Consult order Sodium Chloride (0.9 % Sodium Chloride Flush 3 Ml Syringe) 3 ml IVFLUSH QSHIFT [facility] Last Admin: 04/15/22 10:23 Dose: 3 ml Valsartan (Valsartan 80 Mg Tablet) 80 mg PO BID [facility]; Protocol Last Admin: 04/15/22 08:53 Dose: Not Given Home Medications Medication Instructions Recorded Confirmed Last Taken Type blood-glucose meter (FreeStyle 10/25/21 01/28/22 Unknown History Lite Meter kit) lancets 28 gauge (FreeStyle 10/25/21 01/28/22 Unknown History Lancets) dulaglutide 1.5 mg/0.5 mL 1.5 mg subcut WE@0900 03/12/22 04/14/22 04/13/22 History subcutaneous pen injector (Trulicity) empagliflozin 25 mg tablet 1 tab PO DAILY 03/12/22 04/14/22 04/13/22 History (Jardiance) insulin degludec 100 unit/mL (3 42 unit subcut BEDTIME 03/12/22 04/14/22 04/13/22 History mL) subcutaneous pen (Tresiba FlexTouch U-100 insulin) insulin lispro 100 unit/mL 12 unit subcut TIDAC 03/12/22 04/14/22 04/13/22 History subcutaneous pen atorvastatin 40 mg tablet 40 mg PO BEDTIME 04/14/22 04/14/22 04/13/22 History furosemide 40 mg tablet (Lasix) 40 mg PO BID 04/14/22 04/14/22 04/14/22 07:00 History Exam Exam Date and Time: April 15, 2022 1256 Height,Weight and Vital Signs: Height 5 ft 4 in Weight 104.78 kg Last Vital Signs Temp 97.9 F 04/15/22 12:40 Pulse 103 H 04/15/22 12:40 Resp 16 04/15/22 12:40 BP 127/89 04/15/22 12:40 Pulse Ox 99 04/15/22 12:40 O2 Del Method 04/15/22 12:40 Pertinent Lab Results Pertinent Lab Results: Laboratory Tests 04/14/22 04/14/22 04/14/22 08:41 08:41 08:41 WBC 7.1 RBC 4.45 Hgb 13.0 Hct 40.6 MCV 91.2 MCH 29.2 MCHC 32.0 RDW 14.4 Plt Count 210 MPV 10.0 Immature Gran % (Auto) 0.3 Neut % (Auto) 55.8 Lymph % (Auto) 27.9 [place] % (Auto) 5.4 Eos % (Auto) 9.8 H Baso % (Auto) 0.8 Lymph # (Auto) 2.0 [place] # (Auto) 0.4 Eos # (Auto) 0.7 H Baso # (Auto) 0.1 Abs Immat Gran (auto) 0.02 Absolute Neuts (auto) 3.9 Absolute Nucleated RBC 0.000 Nucleated RBC % (auto) 0.0 PT 15.1 H INR 1.3 H Sodium 138 Potassium 3.7 Chloride 102 Carbon Dioxide 23 Anion Gap 17 BUN 34 H Creatinine 1.45 H Estim Creat Clear Calc 39.4 Estimated GFR 36 POC Glucose Random Glucose 242 H Calcium 8.8 Magnesium 1.9 Total Bilirubin 0.7 AST 7 ALT 10 Alkaline Phosphatase 71 Troponin I High Sens B-Natriuretic Peptide Total Protein 6.6 Albumin 3.6 Lipase 28 Urine Color Urine Appearance Urine pH Ur Specific [place] Urine Protein Urine Glucose (UA) Urine Ketones Urine Blood Urine Nitrite Ur Leukocyte Esterase Urine RBC Urine WBC Ur Squamous Epith Cells Urine Bacteria Hyaline Casts Influenza Type A (PCR) Influenza Type B (PCR) RSV RNA Qual (PCR) SARS-CoV-2 RNA (RT-PCR) 01/29/23 01/29/23 01/29/23 08:41 08:41 08:41 WBC RBC Hgb Hct MCV MCH MCHC RDW Plt Count MPV Immature Gran % (Auto) Neut % (Auto) Lymph % (Auto) [place] % (Auto) Eos % (Auto) Baso % (Auto) Lymph # (Auto) [place] # (Auto) Eos # (Auto) Baso # (Auto) Abs Immat Gran (auto) Absolute Neuts (auto) Absolute Nucleated RBC Nucleated RBC % (auto) PT INR Sodium Potassium Chloride Carbon Dioxide Anion Gap BUN Creatinine Estim Creat Clear Calc Estimated GFR POC Glucose Random Glucose Calcium Magnesium Total Bilirubin AST ALT Alkaline Phosphatase Troponin I High Sens 36.8 H D B-Natriuretic Peptide 215 H Total Protein Albumin Lipase Urine Color Urine Appearance Urine pH Ur Specific [place] Urine Protein Urine Glucose (UA) Urine Ketones Urine Blood Urine Nitrite Ur Leukocyte Esterase Urine RBC Urine WBC Ur Squamous Epith Cells Urine Bacteria Hyaline Casts Influenza Type A (PCR) NEGATIVE Influenza Type B (PCR) NEGATIVE RSV RNA Qual (PCR) NEGATIVE SARS-CoV-2 RNA (RT-PCR) NEGATIVE 04/14/22 04/14/22 04/14/22 11:27 18:39 20:58 WBC RBC Hgb Hct MCV MCH MCHC RDW Plt Count MPV Immature Gran % (Auto) Neut % (Auto) Lymph % (Auto) [place] % (Auto) Eos % (Auto) Baso % (Auto) Lymph # (Auto) [place] # (Auto) Eos # (Auto) Baso # (Auto) Abs Immat Gran (auto) Absolute Neuts (auto) Absolute Nucleated RBC Nucleated RBC % (auto) PT INR Sodium Potassium Chloride Carbon Dioxide Anion Gap BUN Creatinine Estim Creat Clear Calc Estimated GFR POC Glucose 206 H 292 H Random Glucose Calcium Magnesium Total Bilirubin AST ALT Alkaline Phosphatase Troponin I High Sens 33.1 H B-Natriuretic Peptide Total Protein Albumin Lipase Urine Color Urine Appearance Urine pH Ur Specific [place] Urine Protein Urine Glucose (UA) Urine Ketones Urine Blood Urine Nitrite Ur Leukocyte Esterase Urine RBC Urine WBC Ur Squamous Epith Cells Urine Bacteria Hyaline Casts Influenza Type A (PCR) Influenza Type B (PCR) RSV RNA Qual (PCR) SARS-CoV-2 RNA (RT-PCR) 04/15/22 04/15/22 04/15/22 06:40 07:33 07:55 WBC RBC Hgb Hct MCV MCH MCHC RDW Plt Count MPV Immature Gran % (Auto) Neut % (Auto) Lymph % (Auto) [place] % (Auto) Eos % (Auto) Baso % (Auto) Lymph # (Auto) [place] # (Auto) Eos # (Auto) Baso # (Auto) Abs Immat Gran (auto) Absolute Neuts (auto) Absolute Nucleated RBC Nucleated RBC % (auto) PT INR Sodium 141 Potassium 3.7 Chloride 104 Carbon Dioxide 25 Anion Gap 16 BUN 34 H Creatinine 1.40 Estim Creat Clear Calc 40.8 Estimated GFR 38 POC Glucose 198 H 187 H Random Glucose 186 H Calcium 8.6 Magnesium 1.9 Total Bilirubin AST ALT Alkaline Phosphatase Troponin I High Sens B-Natriuretic Peptide Total Protein Albumin Lipase Urine Color Urine Appearance Urine pH Ur Specific [place] Urine Protein Urine Glucose (UA) Urine Ketones Urine Blood Urine Nitrite Ur Leukocyte Esterase Urine RBC Urine WBC Ur Squamous Epith Cells Urine Bacteria Hyaline Casts Influenza Type A (PCR) Influenza Type B (PCR) RSV RNA Qual (PCR) SARS-CoV-2 RNA (RT-PCR) 04/15/22 04/15/22 11:17 12:47 WBC RBC Hgb Hct MCV MCH MCHC RDW Plt Count MPV Immature Gran % (Auto) Neut % (Auto) Lymph % (Auto) [place] % (Auto) Eos % (Auto) Baso % (Auto) Lymph # (Auto) [place] # (Auto) Eos # (Auto) Baso # (Auto) Abs Immat Gran (auto) Absolute Neuts (auto) Absolute Nucleated RBC Nucleated RBC % (auto) PT INR Sodium Potassium Chloride Carbon Dioxide Anion Gap BUN Creatinine Estim Creat Clear Calc Estimated GFR POC Glucose 182 H Random Glucose Calcium Magnesium Total Bilirubin AST ALT Alkaline Phosphatase Troponin I High Sens B-Natriuretic Peptide Total Protein Albumin Lipase Urine Color Yellow Urine Appearance Clear Urine pH 6.0 Ur Specific [place] 1.010 Urine Protein Negative Urine Glucose (UA) >=1000 H Urine Ketones Negative Urine Blood Negative Urine Nitrite Negative Ur Leukocyte Esterase Small (1+) H Urine RBC 0-2 Urine WBC 21-50 H Ur Squamous Epith Cells 0-2 Urine Bacteria 1+ Hyaline Casts 0-2 Influenza Type A (PCR) Influenza Type B (PCR) RSV RNA Qual (PCR) SARS-CoV-2 RNA (RT-PCR) Airway Mallampati Class: III TM Dist: >3cm Neck ROM: Full Loose/Missing/Broken Teeth: No (Denies broken, loose, missing teeth) Heart: Irregularly irregular Lungs: CTAB Assessment and Plan Assessment Anesthesia Assessment: Anesthesia Plan Discussed and Chart Reviewed Final Anesthetic Review Family History of Problems with Anesthesia: No History of Problems with Anesthesia: No NPO: Yes ASA Class: IV Final Preanesthetic Review: No Changes in Pt Med Stat, Meds/Allgs Chart Reviewed, Consent Obtained/Reviewed and Anes Risks/Benef Reviewed Patient Risk: High Procedure Risk: Intermediate Assessment/Block/Sedation in SS: Assess/Block/Sedation-SS Anesthetic Plan Anesthetic Plan: GA Disposition: Standard PACU and Inp. Admit - Standard Bed
--- NOTE | 2022-04-15 13:19 | HO.CARDIVERS ---
Cardioversion Procedure Note Cardioversion Date of Procedure: 04/15/22 Ordering Provider: Cesar Storey Performing Provider: Cesar Storey Indication for Procedure: Afib and LV dysfunction Pre-Op Diagnosis: Afib Performed with Transesophageal Echo: No History: 67 female with Afib and tachycardia induced CM. Consent: Verbal and Written consent was obtained from the patient before starting. The patient was made aware of the risk of stroke and failure to acheive sinus rhythm Procedure: After consent obtained, defib pads were attached and the patient was sedated by the anesthesia team. Once adequate sedation achieved, single synchronized shock of 200 J was given which converted the rhythm to sinus. No acute complications. Complications: None Recommendations: c/w Amiodarone and Eliquis. Continue diuresis for the CHF.
[2022-04-15 14:37] LABS: Glucose, Whole Blood 169 mg/dL (60-115)
[2022-04-15] MEDS: Insulin Lispro 100 UNIT/ML 3 ML VIAL SUBCUT ×3 (14:46→20:25)
[2022-04-15 16:17] LABS: Glucose, Whole Blood 259 mg/dL (60-115)
--- NOTE | 2022-04-15 16:43 | HO.PM.IMPN ---
Subjective Subjective Date of Service: 04/15/22 Interval History: afib ,chf Review of Systems sob seems improvin vent rate runnin 80-100 Denies any chest pain or nausea or vomiting Physical Exam Vital Signs: Vital Signs: Last Vital Signs Temp 97.6 F 04/15/22 16:00 Pulse 60 04/15/22 16:00 Resp 18 04/15/22 16:00 BP 103/59 L 04/15/22 16:00 Pulse Ox 98 04/15/22 16:00 O2 Del Method 04/15/22 16:00 O2 Flow Rate 2 04/15/22 14:03 BMI result Body Mass Index 40.8 Appearance: Alert.? Oriented X3.?sob improvin.? Eyes: Pupils equal, round and reactive to light.? Sclera nonicteric.? ENT: Pharynx normal.? Moist mucous membranes. cvs: irregular rythem, [id number] . res: clear to auscultation ,no rhonchii or wheezing abd: no rebound or guarding ,nt, bs present. ext pulses present , no cyanosis , edema1+. neuro: axo3 , nonfocal. Objective Data Active Medications Albuterol Sulfate (Albuterol Sulfate (0.083%) 2.5 Mg/3 Ml Vial.Neb) 2.5 mg INHALE ONCE PRN PRN Reason: Shortness of Breath/Wheezing Amiodarone HCl (Amiodarone Hcl 400 Mg Tablet) 400 mg PO BID [facility] Stop: 04/19/22 21:05 Last Admin: 04/15/22 11:46 Dose: 400 mg Documented By: MARGE Amiodarone HCl (Amiodarone Hcl 400 Mg Tablet) 200 mg PO DAILY [facility] Apixaban (Apixaban 5 Mg Tablet) 5 mg PO BID [facility] Last Admin: 04/15/22 10:22 Dose: 5 mg Documented By: MARGE Atorvastatin Calcium (Atorvastatin Calcium 40 Mg Tablet) 40 mg PO BEDTIME [facility] Last Admin: 04/14/22 19:47 Dose: 40 mg Documented By: JESSEE Carvedilol (Carvedilol 6.25 Mg Tablet) 6.25 mg PO BID [facility]; Protocol Dextrose (Dextrose 50 % 25 Gm/50 Ml Syringe) 25 gm IVPUSH Q15M PRN; Protocol PRN Reason: per Hypoglycemia Standing Ord. Empagliflozin (Empagliflozin 25 Mg Tablet) 25 mg PO DAILY [facility] Last Admin: 04/15/22 10:22 Dose: 25 mg Documented By: MARGE Furosemide (Furosemide 20 Mg/2 Ml Vial) 40 mg IVPUSH BID@0900,1800 [facility]; Protocol Gabapentin (Gabapentin 100 Mg Capsule) 100 mg PO BID [facility] Last Admin: 04/15/22 10:22 Dose: 100 mg Documented By: MARGE Glucose (Glucose Gel 15 Gm Gel..Gram.) 15 gm PO Q15M PRN; Protocol PRN Reason: per Hypoglycemia Standing Ord. Lactated Ringer's (Lr) 1,000 mls @ 0 mls/hr IVCONT .Q0M CARLENE Lactated Ringer's (Lr) 500 mls @ 20 mls/hr IVCONT .Q24H [facility] Last Admin: 04/15/22 15:20 Dose: Not Given Documented By: MARGE Non-Admin Reason: Not In Room Insulin Glargine (Insulin Glargine,Hum.Rec.Anlog 100 Unit/Ml 10 Ml Vial) 29 unit SUBCUT BEDTIME [facility] Last Admin: 04/14/22 20:49 Dose: Not Given Documented By: JESSEE Non-Admin Reason: NPO Insulin Human Lispro (Insulin Lispro 100 Unit/Ml 3 Ml Vial) 0 unit SUBCUT QIDACHS [facility]; Protocol Last Admin: 04/15/22 14:46 Dose: 2 unit Documented By: MARGE Pharmacy Consult (Consult Rx Perform Med Rec) 1 each MISCELLANE ONCE PRN PRN Reason: Consult order Sodium Chloride (0.9 % Sodium Chloride Flush 3 Ml Syringe) 3 ml IVFLUSH QSHIFT [facility] Last Admin: 04/15/22 10:23 Dose: 3 ml Documented By: MARGE Valsartan (Valsartan 80 Mg Tablet) 80 mg PO BID [facility]; Protocol Last Admin: 04/15/22 08:53 Dose: Not Given Documented By: MARGE Non-Admin Reason: Physician Approved Labs 04/14/22 08:41 04/15/22 07:33 Labs: Laboratory Results - last 24 hr 04/14/22 04/14/22 04/15/22 18:39 20:58 06:40 Anion Gap Estim Creat Clear Calc Estimated GFR POC Glucose 206 H 292 H 198 H Random Glucose Calcium Magnesium Urine Color Urine Appearance Urine pH Ur Specific [place] Urine Protein Urine Glucose (UA) Urine Ketones Urine Blood Urine Nitrite Ur Leukocyte Esterase Urine RBC Urine WBC Ur Squamous Epith Cells Urine Bacteria Hyaline Casts 04/15/22 04/15/22 04/15/22 07:33 07:55 11:17 Anion Gap 16 Estim Creat Clear Calc 40.8 Estimated GFR 38 POC Glucose 187 H Random Glucose 186 H Calcium 8.6 Magnesium 1.9 Urine Color Yellow Urine Appearance Clear Urine pH 6.0 Ur Specific [place] 1.010 Urine Protein Negative Urine Glucose (UA) >=1000 H Urine Ketones Negative Urine Blood Negative Urine Nitrite Negative Ur Leukocyte Esterase Small (1+) H Urine RBC 0-2 Urine WBC 21-50 H Ur Squamous Epith Cells 0-2 Urine Bacteria 1+ Hyaline Casts 0-2 04/15/22 04/15/22 04/15/22 12:47 14:29 16:13 Anion Gap Estim Creat Clear Calc Estimated GFR POC Glucose 182 H 169 H 259 H Random Glucose Calcium Magnesium Urine Color Urine Appearance Urine pH Ur Specific [place] Urine Protein Urine Glucose (UA) Urine Ketones Urine Blood Urine Nitrite Ur Leukocyte Esterase Urine RBC Urine WBC Ur Squamous Epith Cells Urine Bacteria Hyaline Casts Assessment and Plan (1) Acute on chronic congestive heart failure: Status: Acute (2) Atrial fibrillation: Status: Acute (3) LUIS FELIPE (acute kidney injury): Status: Acute Plan 67-year-old female with a PMH significant for?paroxysmal AFib on Eliquis and amiodarone, s/p cardioversion 03/13/2022, HFrEFw/EF 15%, triple-vessel CAD, insulin-dependent DM 2 with neuropathy, morbid obesity, HTN, and endometrial cancer s/p hysterectomy in 11/2021 who presents to the ED with?shortness of breath and palpitations. Pt will be admitted to observation on telemetry for treatment and further evaluation of symptomatic Afib with likely cardioversion tomorrow and CHF exacerbation. Chest pain/discomfort, now resolved Likely secondary to an episode of AFib with RVR EKG demonstrated atrial flutter without any evidence of ST depressions or elevations Troponin 36.8 with repeat down trending to 33.1 Cardiology consult-possible cardioversion today-adjusted coreg ,continue amiodarone , continue eliquis -do not interrupt Eliquis.? Monitor on telemetry Persistent atrial fibrillation possible cardioversion today-adjusted coreg ,continue amiodarone , continue eliquis -do not interrupt Eliquis.? Acute on chronic CHF with reduced EF Likely secondary to AFib Gentle diuresis with Lasix IV 40 mg b.i.d. Follow lytes, mg, I/O Recently started on valsartan 80mg po bid( on hold for now but start as blood pressure allows.), with eventual plan to switch to Entresto HTN hold valsartan due to softer bp. Insulin-dependent diabetes Hold home meds SSI, lantus CAD Continue home meds Obesity class II Encourage weight loss. Possible mild LUIS FELIPE on CKD 3: Monitor renal function closely. inpateint need: evaluation of symptomatic Afib with likely cardioversion ,chf -need iv lasix , need close renal function and electrolyte monitoring. Time Spent With Patient Time: Total time managing care of this patient today ____ minutes. Quality Stroke Does the patient have a stroke diagnosis?: No VTE Prior VTE?: No VTE Risk Level:: Medical - moderate - high VTE Device Contraindication: Treatment Not Indicated VTE Drug Contraindication: N/A - Med Ordered
[2022-04-15] MEDS: Furosemide 20 MG/2 ML VIAL 40 MG IVPUSH (17:11)
[2022-04-15] MEDS: Atorvastatin Calcium 40 MG TABLET PO (20:16)
[2022-04-15 20:21] LABS: Glucose, Whole Blood 184 mg/dL (60-115)
[2022-04-15] MEDS: Insulin Glargine,Hum.rec.anlog 100 UNIT/ML 10 ML VIAL 29 UNIT SUBCUT (20:26)
[2022-04-16] VITALS (8 sets, daily range): BP systolic 92–103; BP diastolic 51–68; PULSE 94–106; RESP 14–20; TEMP 36–36.6; O2SAT 91–98
--- NOTE | 2022-04-16 | ECG_ITS ---
Test Reason : cp Blood Pressure : / mmHG Vent. Rate : 105 BPM Atrial Rate : 105 BPM P-R Int : 216 ms QRS Dur : 134 ms QT Int : 394 ms P-R-T Axes : 000 -35 127 degrees QTc Int : 520 ms Atrial tachy with 2 to 1 block Left axis deviation Non-specific intra-ventricular conduction block Minimal voltage criteria for LVH, may be normal variant ( Chris product ) Cannot rule out Anterior infarct , age undetermined T wave abnormality, consider lateral ischemia Abnormal ECG When compared with ECG of 15-APR-2022 13:29, Vent. rate has increased BY 37 BPM Atrial tachycardia present Referred By: Antoine Torres Electronically Signed By:Cesar Storey
[2022-04-16 07:12] LABS: Hematocrit 37.6 % (37.0-47.0); Hemoglobin 12.2 g/dl (12.0-16.0); Mean Corpuscular HGB Conc 32.4 g/dl (31.0-35.0); Mean Corpuscular Hemoglobin 29.5 pg (27.0-33.0); Platelet Count 213 X10*3/uL (160-400); Red Blood Count 4.13 X10*6/uL (4.20-5.50); Red Cell Distribution Width 14.4 % (11.0-16.0); White Blood Count 7.5 X10*3/uL (4.8-10.8)
[2022-04-16 07:44] LABS: Anion Gap 17 (12-20); Blood Urea Nitrogen 33 mg/dL (9-16); Calcium 8.8 mg/dL (8.4-10.2); Carbon Dioxide 26 mmol/L (22-29); Chloride 100 mmol/L (96-108); Creatinine Clr Calc Pharmacy 46.7; Estimated Glomerular Filt Rate 37; Glucose Random 158 mg/dL (60-115); Potassium 3.5 mmol/L (3.3-5.1); Sodium 139 mmol/L (135-145)
[2022-04-16 07:45] LABS: Glucose, Whole Blood 167 mg/dL (60-115)
[2022-04-16] MEDS: carvediloL 6.25 MG TABLET PO (08:50)
[2022-04-16] MEDS: Furosemide 20 MG/2 ML VIAL 40 MG IVPUSH ×2 (08:50→17:22)
[2022-04-16] MEDS: Apixaban 5 MG TABLET PO ×2 (08:50→21:19)
[2022-04-16] MEDS: Empagliflozin 25 MG TABLET PO (08:52)
[2022-04-16] MEDS: 0.9 % Sodium Chloride Flush 3 ML SYRINGE IVFLUSH ×2 (08:52→21:24)
[2022-04-16] MEDS: Insulin Lispro 100 UNIT/ML 3 ML VIAL SUBCUT ×4 (08:53→21:20)
--- NOTE | 2022-04-16 10:58 | MHC.CM.PN ---
[place] 04/14/22 Patient is discharge to home self care. She has arranged for transport home.
[2022-04-16 11:12] LABS: Glucose, Whole Blood 176 mg/dL (60-115)
--- NOTE | 2022-04-16 11:42 | P.DS_ITS ---
DS: Providers Provider Date of Service: 04/16/22 Date of admission: 04/14/22 13:14 Primary care physician: Lily Menjivar MD Consults: 04/14/22 13:17 Consult to Cardiology Routine Consulting Provider: Maximus Dimas Reason for consultation: Palpitations, chronic afib, nava for cardioversion tomorrow Has provider been notified: Yes DS: Diagnosis Discharge Diagnosis (1) Acute on chronic congestive heart failure: Status: Acute (2) Atrial fibrillation: Status: Acute (3) LUIS FELIPE (acute kidney injury): Status: Acute DS: Summary Hospital Course Hospital Course: Chief Complaint: Chest discomfort, palpitations Pt is a 67-year-old female with a PMH significant for?paroxysmal AFib on Eliquis and amiodarone, s/p cardioversion 03/13/2022, HFrEFw/EF 15%, triple-vessel CAD, insulin-dependent DM 2 with neuropathy, morbid obesity, HTN, and endometrial cancer s/p hysterectomy in 11/2021 who presents to the ED with?shortness of breath and palpitations. Pt states that she went into her kitchen this morning around 6am and began feeling nausea, palpitations, and chest discomfort, which began in the center of her chest and soon spread to the whole chest and radiated up her neck. It felt like someone had beaten me up. Chest discomfort lasted for a few hours, worsening during that time. Pt also experienced lightheadedness, headache, and difficulty breathing.? Patient was not scheduled to take her amiodarone and Eliquis until 11:30am; these were administered in the ED. Pt currently feels a lot better and denies chest pain/discomfort. SOB has improved.? Patient also notes she has been feeling chronically tired and queasy since last discharge one week ago, and that her cough and fluid retention has worsened, especially in her belly but also in her legs bilaterally. Of note, pt was recently admitted on 04/05/21-04/07/21 for afib with RVR, likely d/t noncompliance with amiodarone, and acute CHF exacerbation. Pt is scheduled for cardioversion tomorrow with Dr. Valdez. Pt denies abdominal pain, F/C, N/V.? In the ED vital signs are stable, labs were significant for creatinine 1.45 (n ear baseline), BP elevated at 215 (near baseline), above of troponin slightly elevated at 36.8 with repeat down trending at 33.1. CXR showed no acute cardiopulmonary process. EKG demonstrated atrial flutter with no evidence of ST elevations or depressions. Pt was given her morning doses of Eliquis and amiodorone. Pt will be admitted to observation on telemetry for treatment and further evaluation of symptomatic Afib with likely cardioversion tomorrow and CHF exacerbation. Hospital course: Patient was admitted recently with heart failure and AFIB with RVR and required cardioversion and was initiated on amiodarone load and presented back on this occasion with chest discomfort, palpitation and found again to be in AFIB with RVR and associated heart failure and underwent DC cardioversion again by Dr. Storey with heart rate control. She will continue amio loading per prior instruction and to continue eliquis and Lasix for heart failure Time Spent with Patient Time attestation: Total time managing care of this patient today ____ minutes. Discharge coordination time: Greater than 30 minutes Quality: Safe Use of Opioids Does Pt have an Active Cancer Diagnosis on the Problem List?: No Quality: Stroke Does the patient have a stroke diagnosis?: No Physical Exam Vital Signs: Vital Signs: Last Vital Signs Temp 96.8 F 04/16/22 11:13 Pulse 106 H 04/16/22 11:13 Resp 14 04/16/22 11:13 BP 98/60 04/16/22 11:13 Pulse Ox 96 04/16/22 11:13 O2 Del Method 04/16/22 07:35 O2 Flow Rate 2 04/15/22 14:03 BMI result Body Mass Index 40.8 DS: Data Data Completed and Pending Completed studies during hospitalization [Text1]: Procedures Cheondoism of Cardiac Rhythm, Single (03/12/22) Labs on day of discharge: Laboratory Results - last 24 hr 04/15/22 04/15/22 04/15/22 12:47 14:29 16:13 WBC RBC Hgb Hct MCV MCH MCHC RDW Plt Count MPV Absolute Nucleated RBC Nucleated RBC % (auto) Sodium Potassium Chloride Carbon Dioxide Anion Gap BUN Creatinine Estim Creat Clear Calc Estimated GFR POC Glucose 182 H 169 H 259 H Random Glucose Calcium 04/15/22 04/16/22 04/16/22 20:15 06:25 06:25 WBC 7.5 RBC 4.13 L Hgb 12.2 Hct 37.6 MCV 91.0 MCH 29.5 MCHC 32.4 RDW 14.4 Plt Count 213 MPV 10.0 Absolute Nucleated RBC 0.000 Nucleated RBC % (auto) 0.0 Sodium 139 Potassium 3.5 Chloride 100 Carbon Dioxide 26 Anion Gap 17 BUN 33 H Creatinine 1.42 H Estim Creat Clear Calc 46.7 Estimated GFR 37 POC Glucose 184 H Random Glucose 158 H Calcium 8.8 04/16/22 04/16/22 07:38 10:56 WBC RBC Hgb Hct MCV MCH MCHC RDW Plt Count MPV Absolute Nucleated RBC Nucleated RBC % (auto) Sodium Potassium Chloride Carbon Dioxide Anion Gap BUN Creatinine Estim Creat Clear Calc Estimated GFR POC Glucose 167 H 176 H Random Glucose Calcium Preliminary micro results at discharge 04/15/22 00:00 Urine Culture - Preliminary Urine clean catch - Urine perera top Gram negative bin Discharge Plan Discharge Anticipated Discharge Date/Time: 04/16/22 11:28 Patient Disposition: Home, Self-Care Discharge Diagnosis: heart failure Referrals: Lily Menjivar MD [Primary Care Provider] - 1 Week Discharge Medications: New carvedilol 6.25 mg Tablet 6.25 mg PO BID Qty: 60 0RF Protocol: Hold for SBP/HR < HOLD for SBP < : 90 HOLD for HR < : 60 Continued (DME) FreeStyle Lite Strips Strip See Rx Instructions .Route Qty: 100 5RF Rx Instructions: As directed check sugar twice a day before meals (DME) insulin syringe-needle U-100 [BD Veo Insulin Syringe UF] 1/2 mL 31 gauge x 15/64 syringe See Rx Instructions .Route Qty: 200 1RF Rx Instructions: As directed twice a day (DME) pen needle, diabetic [BD Ultra-Fine Short Pen Needle] 31 gauge x 5/16 needle See Rx Instructions .ROUTE .COMPLEX Qty: 100 3RF Dose Instruction: USE 1 PEN NEEDLE ONCE DAILY WITH LANTUS INSULIN Rx Instructions: USE 1 PEN NEEDLE ONCE DAILY WITH LANTUS INSULIN gabapentin 100 mg capsule 100 mg PO BID Qty: 60 0RF amiodarone 200 mg tablet 400 mg PO BID 11 Days Qty: 44 0RF Rx Instructions: LOADING DOSE: Take 400mg twice a day then 2/4 it will be 200mg once daily Make sure these are dye free tablets insulin lispro 100 unit/mL insulin pen 12 unit subcut TIDAC Rx Instructions: administer before meals Jardiance 25 mg tablet 1 tab PO DAILY insulin degludec [Tresiba FlexTouch U-100] 100 unit/mL (3 mL) insulin pen 42 unit subcut BEDTIME Trulicity 1.5 mg/0.5 mL Pen Injector 1.5 mg SUBCUT WE@0900 Eliquis 5 mg Tablet 5 mg PO BID Qty: 60 0RF valsartan 80 mg Tablet 80 mg PO BID Qty: 60 0RF Protocol: Hold for SBP< HOLD for SBP < : 90 furosemide [Lasix] 40 mg tablet 40 mg PO BID atorvastatin 40 mg tablet 40 mg PO BEDTIME (DME) blood-glucose meter [FreeStyle Lite Meter] Kit See Rx Instructions .Route Rx Instructions: As directed (DME) lancets [FreeStyle Lancets] 28 gauge misc See Rx Instructions .Route Rx Instructions: As directed Discontinued carvedilol [Coreg] 12.5 mg tablet 12.5 mg PO Q12H Qty: 60 0RF Rx Instructions: must administer with a meal/food Discharge Orders: Discharge Order (Routine); Ordered 04/16/22 Ordered By: Mik Gardner Diet: Advance to usual diet Activity on Discharge: As tolerated Stand Alone Forms: Patient Portal Discharge page Care Plan Goals: full recovery from heart failure and control of AFIB Health Concerns: heart failure AFIB Plan of Treatment: continue taking your medications as recommended note that Coreg has been reduced to 6.25 mg twice daily follow up with Dr. Valdez Assessment: as above
--- NOTE | 2022-04-16 12:47 | PC.NURSE ---
9am gabapentin not given due to medication scan slot taken by previous scan/dose. will give next scheduled time. MD notified.
--- NOTE | 2022-04-16 12:57 | P.PNCA_ITS ---
Subjective Subjective Date of Service: 04/16/22 <NUNO Rivas - Last Filed: 04/16/22 15:45> 04/17/22 <Cesar Storey MD - Last Filed: 04/17/22 14:11> Principal diagnosis: CHF, atrial fibrillation <NUNO Rivas - Last Filed: 04/16/22 15:45> Interval history: See at 1145. Today she reports that her breathing is comfortable and leg edema is resolved. She does notice that he heart is beating a little fast. No chest pains, dizziness. Ambulating in room and feels well. Tele showing Atrial flutter rates 90-low 100s. <NUNO Rivas - Last Filed: 04/16/22 15:45> Review of Systems Review of Systems as above <NUNO Rivas - Last Filed: 04/16/22 15:45> Yes all other systems are reviewed and are negative <NUNO Rivas - Last Filed: 04/16/22 15:45> Physical Exam Vital Signs: Last Vital Signs Temp 96.8 F 04/16/22 11:13 Pulse 106 H 04/16/22 11:13 Resp 14 04/16/22 11:13 BP 98/60 04/16/22 11:13 Pulse Ox 96 04/16/22 11:13 O2 Del Method 04/16/22 07:35 O2 Flow Rate 2 04/15/22 14:03 BMI result Body Mass Index 40.8 <NUNO Rivas - Last Filed: 04/16/22 15:45> Const General: cooperative, healthy appearing, comfortable and no acute distress <NUNO Rivas - Last Filed: 04/16/22 15:45> Orientation/consciousness: patient oriented x3 <NUNO Rivas Last Filed: 04/16/22 15:45> Neck Neck: Yes normal visual inspection <NUNO Rivas Last Filed: 04/16/22 15:45> Resp Effort & Inspection: normal respiratory effort <NUNO Rivas - Last Filed: 04/16/22 15:45> Auscultation: clear to auscultation bilaterally, no crackles, no rales, no rhonchi and no wheezes <Imelda Harris [facility] Last Filed: 04/16/22 15:45> Cardio Jugular venous distension: no JVD <Imelda Kimberly [facility] Last Filed: 04/16/22 15:45> Rate: regular rate <[facility] Kimberly [facility] Last Filed: 04/16/22 15:45> Rhythm: regular rhythm [facility] Last Filed: 04/16/22 15:45> Heart sounds: S1 normal heart sound present, S2 normal heart sound present, no gallops, no murmurs and no rubs <[facility] Kimberly [facility] Last Filed: 04/16/22 15:45> Neuro General: patient oriented x3 <Imelda Kimberly [facility] Last Filed: 04/16/22 15:45> Extrem General: Yes normal to inspection, No no pedal edema and No calf tenderness [facility] Last Filed: 04/16/22 15:45> Psych Appearance: grossly normal <[facility] Kimberly [facility] Last Filed: 04/16/22 15:45> Mental Status: mental status grossly normal <[facility] Kimberly [facility] Last Filed: 04/16/22 15:45> Speech and movement: Normal speech and movement present [facility] Last Filed: 04/16/22 15:45> Objective Labs and Meds Result diagrams: 04/16/22 06:25 04/16/22 06:25 <[facility] Last Filed: 04/16/22 15:45> Lab results: Laboratory Results - last 24 hr 04/15/22 04/15/22 04/15/22 14:29 16:13 20:15 WBC RBC Hgb Hct MCV MCH MCHC RDW Plt Count MPV Absolute Nucleated RBC Nucleated RBC % (auto) Sodium Potassium Chloride Carbon Dioxide Anion Gap BUN Creatinine Estim Creat Clear Calc Estimated GFR POC Glucose 169 H 259 H 184 H Random Glucose Calcium 04/16/22 04/16/22 04/16/22 06:25 06:25 07:38 WBC 7.5 RBC 4.13 L Hgb 12.2 Hct 37.6 MCV 91.0 MCH 29.5 MCHC 32.4 RDW 14.4 Plt Count 213 MPV 10.0 Absolute Nucleated RBC 0.000 Nucleated RBC % (auto) 0.0 Sodium 139 Potassium 3.5 Chloride 100 Carbon Dioxide 26 Anion Gap 17 BUN 33 H Creatinine 1.42 H Estim Creat Clear Calc 46.7 Estimated GFR 37 POC Glucose 167 H Random Glucose 158 H Calcium 8.8 04/16/22 10:56 WBC RBC Hgb Hct MCV MCH MCHC RDW Plt Count MPV Absolute Nucleated RBC Nucleated RBC % (auto) Sodium Potassium Chloride Carbon Dioxide Anion Gap BUN Creatinine Estim Creat Clear Calc Estimated GFR POC Glucose 176 H Random Glucose Calcium <NUNO Rivas - Last Filed: 04/16/22 15:45> Progress Note: A&P Assessment and plan (1) Acute on chronic congestive heart failure: Status: Acute <NUNO Rivas - Last Filed: 04/16/22 15:45> Assessment and Plan: Admit with sob, edema. Acute on Chronic systolic HF. Last echo 04/04/22 with EF 15-20%, + regional WMA consistent with ischemic CMP. 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 Recently discharged following admit for CHF/ AF. Now readmit and treated with IV Lasix. Fluid balance Neg 1320. Reports feeling better. Edema resolved. Breathing unlabored. She is morbidly obese making her exam more challenging however does not appear fluid overloaded at present. Starting tomorrow will change back to Lasix 40mg bid. Cr 1.42, BUN 33. - will check BMP, BNP in am. <NUNO Rivas - Last Filed: 04/16/22 15:45> (2) Persistent atrial fibrillation: Status: Acute <NUNO Rivas - Last Filed: 04/16/22 15:45> Assessment and Plan: New finding of atrial fibrillation during admission 02/2022. Her EF was further reduced from her you prior and was thought to be tachycardia mediated. She did undergo a TERRANCE cardioversion on 03/13/22 with success conversion back to sinus rhythm. She was started on amiodarone (Dye free preparation due to allergy). She was readmitted on 04/04/2022 with recurrent heart failure and AFib. It was noticed that she was only taking amiodarone 200 mg daily. Her dose was increased to the full load an outpatient cardioversion was planned. She presented again with heart failure, this admission. Yesterday she underwent a cardioversion and did have sinus rhythm which then converted to atrial flutter last evening. Tele currently shows atrial flutter with average heart rate 90s to low 100s. She continues on her amiodarone load presently at 400 mg b.i.d. for 1 more day. Will continue to follow on tele monitor see if she converts back to sinus rhythm. Continue carvedilol, amiodarone. Continue Eliquis 5 mg b.i.d. uninterrupted for anticoagulation. <NUNO Rivas - Last Filed: 04/16/22 15:45> (3) Cardiomyopathy: Status: Acute <NUNO Rivas - Last Filed: 04/16/22 15:45> Assessment and Plan: As above <NUNO Rivas Last Filed: 04/16/22 15:45> Assessment and Plan: Patient was seen and examined at bedside. She underwent cardioversion for atrial fibrillation but unfortunately has developed atrial flutter/atrial tachycardia. Heart rates are not very fast but continues to get some palpitations. Volume status is improving overall. She is saying her dyspnea is better than before. I think we continue to diurese. I think we continue amiodarone at the higher dose of 400 mg twice a day. <Cesar Storey MD - Last Filed: 04/17/22 14:11> Time Spent With Patient Time: Total time managing care of this patient today _22___ minutes. <NUNO Rivas - Last Filed: 04/16/22 15:45> Progress Note: Quality Stroke Does the patient have a stroke diagnosis?: No <NUNO Rivas - Last Filed: 04/16/22 15:45> Procedures Date of Service Date of Service: 04/16/22 <NUNO Rivas - Last Filed: 04/16/22 15:45>
--- NOTE | 2022-04-16 13:21 | HO.POSTANES ---
Post Anesthesia Evaluation Post Anesthesia Evaluation Vital Signs: Vital Signs Temp Pulse Resp BP Pulse Ox O2 Del Method 04/16/22 11:13 96.8 F 106 H 14 98/60 96 04/16/22 07:35 96.9 F 104 H 14 102/64 93 Room Air 04/16/22 03:28 97.8 F 103 H 20 96/51 L 93 Room Air Anesthesia: General Mental Status: Awake Pain Control: Satisfactory Nausea/Vomiting: None Hydration: Adequate Anesthesia-Related Issues: No Anes. Related Issues
[2022-04-16] MEDS: Lactated Ringers 500 ML 20 ML IVCONT (14:39)
[2022-04-16 15:44] LABS: Glucose, Whole Blood 183 mg/dL (60-115)
--- NOTE | 2022-04-16 17:35 | P.PNIM_ITS ---
Subjective Subjective Date of Service: 04/17/22 Interval History: f/u on aflutter, heart failure interval history: s/p cardioversion yesterday but back in aflutter Physical Exam Vital Signs: Vital Signs: Last Vital Signs Temp 97.2 F 04/16/22 15:01 Pulse 99 04/16/22 15:01 Resp 18 04/16/22 15:01 BP 92/52 L 04/16/22 15:01 Pulse Ox 96 04/16/22 15:01 O2 Del Method 04/16/22 15:01 O2 Flow Rate 2 04/15/22 14:03 BMI result Body Mass Index 40.8 Const: Other: General: AO X 3, no acute distress Resp: CTA bilateral CVS: S1,S2,RRR GI: +BS, NT, no distention Skin: No rash Neuro: motor grossly intact Psych: appropriate affect Objective Data Active Medications Albuterol Sulfate (Albuterol Sulfate (0.083%) 2.5 Mg/3 Ml Vial.Neb) 2.5 mg INHALE ONCE PRN PRN Reason: Shortness of Breath/Wheezing Amiodarone HCl (Amiodarone Hcl 400 Mg Tablet) 400 mg PO BID [facility] Stop: 04/19/22 21:05 Last Admin: 04/16/22 08:51 Dose: 400 mg Documented By: MARLON Amiodarone HCl (Amiodarone Hcl 400 Mg Tablet) 200 mg PO DAILY [facility] Apixaban (Apixaban 5 Mg Tablet) 5 mg PO BID [facility] Last Admin: 04/16/22 08:50 Dose: 5 mg Documented By: MARLON Atorvastatin Calcium (Atorvastatin Calcium 40 Mg Tablet) 40 mg PO BEDTIME [facility] Last Admin: 04/15/22 20:16 Dose: 40 mg Documented By: JEOVANNY Carvedilol (Carvedilol 6.25 Mg Tablet) 6.25 mg PO BID [facility]; Protocol Last Admin: 04/16/22 08:50 Dose: 6.25 mg Documented By: MARLON Dextrose (Dextrose 50 % 25 Gm/50 Ml Syringe) 25 gm IVPUSH Q15M PRN; Protocol PRN Reason: per Hypoglycemia Standing Ord. Empagliflozin (Empagliflozin 25 Mg Tablet) 25 mg PO DAILY [facility] Last Admin: 04/16/22 08:52 Dose: 25 mg Documented By: MARLON Furosemide (Furosemide 20 Mg/2 Ml Vial) 40 mg IVPUSH BID@0900,1800 [facility]; Protocol Stop: 04/16/22 20:00 Last Admin: 04/16/22 17:22 Dose: 40 mg Documented By: MARLON Furosemide (Furosemide 40 Mg Tablet) 40 mg PO BID@0900,1800 [facility]; Protocol Gabapentin (Gabapentin 100 Mg Capsule) 100 mg PO BID [facility] Last Admin: 04/15/22 20:16 Dose: 100 mg Documented By: JEOVANNY Glucose (Glucose Gel 15 Gm Gel..Gram.) 15 gm PO Q15M PRN; Protocol PRN Reason: per Hypoglycemia Standing Ord. Lactated Ringer's (Lr) 1,000 mls @ 0 mls/hr IVCONT .Q0M CARLENE Lactated Ringer's (Lr) 500 mls @ 20 mls/hr IVCONT .Q24H [facility] Last Admin: 04/16/22 14:39 Dose: 20 mls/hr Documented By: MARLON Insulin Glargine (Insulin Glargine,Hum.Rec.Anlog 100 Unit/Ml 10 Ml Vial) 29 unit SUBCUT BEDTIME [facility] Last Admin: 04/15/22 20:26 Dose: 29 unit Documented By: JEOVANNY Insulin Human Lispro (Insulin Lispro 100 Unit/Ml 3 Ml Vial) 0 unit SUBCUT QIDACHS [facility]; Protocol Last Admin: 04/16/22 17:22 Dose: 2 unit Documented By: MARLON Pharmacy Consult (Consult Rx Perform Med Rec) 1 each MISCELLANE ONCE PRN PRN Reason: Consult order Sodium Chloride (0.9 % Sodium Chloride Flush 3 Ml Syringe) 3 ml IVFLUSH QSHIFT [facility] Last Admin: 04/16/22 16:01 Dose: Not Given Documented By: MARLON Non-Admin Reason: IV Running Valsartan (Valsartan 80 Mg Tablet) 80 mg PO BID [facility]; Protocol Last Admin: 04/15/22 08:53 Dose: Not Given Documented By: MARGE Non-Admin Reason: Physician Approved Labs 04/16/22 06:25 04/16/22 06:25 Labs: Laboratory Results - last 24 hr 04/15/22 04/16/22 04/16/22 20:15 06:25 06:25 MCV 91.0 MCH 29.5 MCHC 32.4 RDW 14.4 Plt Count 213 MPV 10.0 Absolute Nucleated RBC 0.000 Nucleated RBC % (auto) 0.0 Anion Gap 17 Estim Creat Clear Calc 46.7 Estimated GFR 37 POC Glucose 184 H Random Glucose 158 H Calcium 8.8 04/16/22 04/16/22 04/16/22 07:38 10:56 15:41 MCV MCH MCHC RDW Plt Count MPV Absolute Nucleated RBC Nucleated RBC % (auto) Anion Gap Estim Creat Clear Calc Estimated GFR POC Glucose 167 H 176 H 183 H Random Glucose Calcium Microbiology Microbiology Results: Microbiology 04/15/22 00:00 Urine Culture - Preliminary Urine clean catch - Urine perera top Gram negative bin Assessment and Plan (1) Acute on chronic congestive heart failure: Status: Acute (2) Atrial fibrillation: Status: Acute (3) LUIS FELIPE (acute kidney injury): Status: Acute Plan 67-year-old female with a PMH significant for?paroxysmal AFib on Eliquis and amiodarone, s/p cardioversion 03/13/2022, HFrEFw/EF 15%, triple-vessel CAD, insulin-dependent DM 2 with neuropathy, morbid obesity, HTN, and endometrial cancer s/p hysterectomy in 11/2021 who presents to the ED with?shortness of breath and palpitations. Pt will be admitted to observation on telemetry for treatment and further evaluation of symptomatic Afib with likely cardioversion tomorrow and CHF exacerbation. Chest pain d/t afib with rvr Paroxysmal afib with RVR s/p cardioversion but back in afib continue amio, coreg.. Cardiology to make the next decision Acute on chronic CHF with reduced EF Likely secondary to AFib Lasix Follow lytes, mg, I/O Recently started on valsartan 80mg po bid( on hold for now but start as blood pressure allows.), with eventual plan to switch to Entresto HTN hold valsartan due to softer bp. Insulin-dependent diabetes Hold home meds SSI, lantus CAD Continue home meds Obesity class II Encourage weight loss. Possible mild LUIS FELIPE on CKD 3: Monitor renal function closely. inpateint need: ongoing med adjustment Time Spent With Patient Time: Total time managing care of this patient today ____ minutes. Quality Stroke Does the patient have a stroke diagnosis?: No VTE Prior VTE?: No VTE Risk Level:: Medical - moderate - high VTE Device Contraindication: Treatment Not Indicated VTE Drug Contraindication: N/A - Med Ordered
[2022-04-16 20:34] LABS: Glucose, Whole Blood 194 mg/dL (60-115)
[2022-04-16 20:53] LABS: Troponin-I High Sensitivity 22.1 ng/L (<3.5-17.0)
[2022-04-16] MEDS: Gabapentin 100 MG CAPSULE PO (21:19)
[2022-04-16] MEDS: Atorvastatin Calcium 40 MG TABLET PO (21:19)
[2022-04-16] MEDS: Insulin Glargine,Hum.rec.anlog 100 UNIT/ML 10 ML VIAL 29 UNIT SUBCUT (21:20)
--- NOTE | 2022-04-17 | ECG_ITS ---
Test Reason : rhythm check Blood Pressure : / mmHG Vent. Rate : 097 BPM Atrial Rate : 000 BPM P-R Int : 000 ms QRS Dur : 132 ms QT Int : 400 ms P-R-T Axes : 000 -37 150 degrees QTc Int : 508 ms Atrial tachycardia Left axis deviation Left ventricular hypertrophy with QRS widening ( R in aVL , [place] product ) T wave abnormality, consider lateral ischemia Abnormal ECG When compared with ECG of 16-APR-2022 19:33, No significant changes seen Referred By: Imelda Harris Electronically Signed By:Cesar Storey
[2022-04-17 03:27] VITALS: BP 95/66; PULSE 88; RESP 20; TEMP 36.9; O2SAT 98
[2022-04-17 07:23] VITALS: BP 96/66; PULSE 112; RESP 14; TEMP 36.1; O2SAT 96
[2022-04-17 07:28] LABS: Glucose, Whole Blood 136 mg/dL (60-115)
[2022-04-17 07:51] LABS: B Type Natriuretic Peptide 184 pg/mL (<100)
[2022-04-17 07:52] LABS: Anion Gap 14 (12-20); Blood Urea Nitrogen 28 mg/dL (9-16); Calcium 8.5 mg/dL (8.4-10.2); Carbon Dioxide 29 mmol/L (22-29); Chloride 101 mmol/L (96-108); Creatinine Clr Calc Pharmacy 48.5; Estimated Glomerular Filt Rate 39; Glucose Random 128 mg/dL (60-115); Potassium 3.5 mmol/L (3.3-5.1); Sodium 140 mmol/L (135-145)
[2022-04-17] MEDS: Empagliflozin 25 MG TABLET PO (08:11)
[2022-04-17] MEDS: Apixaban 5 MG TABLET PO (08:11)
[2022-04-17] MEDS: Furosemide 40 MG TABLET PO ×2 (08:11→17:09)
[2022-04-17] MEDS: Gabapentin 100 MG CAPSULE PO (08:11)
[2022-04-17] MEDS: carvediloL 6.25 MG TABLET PO (08:11)
[2022-04-17] MEDS: 0.9 % Sodium Chloride Flush 3 ML SYRINGE IVFLUSH ×2 (08:12→17:10)
[2022-04-17 10:54] VITALS: PULSE 100; RESP 12; TEMP 36.6; O2SAT 92
--- NOTE | 2022-04-17 10:58 | MHC.CM.PN ---
Per ROUNDS discussion, Cardiology is making med adjustments r/t Patient's HR and Patient is not yet medically cleared for dc. Home is the goal and CM will continue to follow.
[2022-04-17 11:00] LABS: Glucose, Whole Blood 201 mg/dL (60-115)
--- NOTE | 2022-04-17 11:05 | PC.NURSE ---
provider said to stop LR, waiting for LR order to be d/c.
--- NOTE | 2022-04-17 11:20 | HO.PM.IMPN ---
Subjective Subjective Date of Service: 04/17/22 Interval History: f/u on aflutter, heart failure interval history: remains in AFIB with variable rate Review of Systems as above Physical Exam Vital Signs: Vital Signs: Last Vital Signs Temp 97.9 F 04/17/22 10:54 Pulse 100 04/17/22 10:54 Resp 12 04/17/22 10:54 BP 96/66 04/17/22 07:23 Pulse Ox 92 04/17/22 10:54 O2 Del Method 04/17/22 10:54 O2 Flow Rate 2 04/15/22 14:03 BMI result Body Mass Index 40.8 Const: Other: General: AO X 3, no acute distress Resp: CTA bilateral CVS: S1,S2,RRR GI: +BS, NT, no distention Skin: No rash Neuro: motor grossly intact Psych: appropriate affect Objective Data Active Medications Albuterol Sulfate (Albuterol Sulfate (0.083%) 2.5 Mg/3 Ml Vial.Neb) 2.5 mg INHALE ONCE PRN PRN Reason: Shortness of Breath/Wheezing Amiodarone HCl (Amiodarone Hcl 400 Mg Tablet) 400 mg PO BID [facility] Stop: 04/19/22 21:05 Last Admin: 04/17/22 08:11 Dose: 400 mg Documented By: MARLON Amiodarone HCl (Amiodarone Hcl 400 Mg Tablet) 200 mg PO DAILY [facility] Apixaban (Apixaban 5 Mg Tablet) 5 mg PO BID [facility] Last Admin: 04/17/22 08:11 Dose: 5 mg Documented By: MARLON Atorvastatin Calcium (Atorvastatin Calcium 40 Mg Tablet) 40 mg PO BEDTIME [facility] Last Admin: 04/16/22 21:19 Dose: 40 mg Documented By: CAREY Carvedilol (Carvedilol 6.25 Mg Tablet) 6.25 mg PO BID [facility]; Protocol Last Admin: 04/17/22 08:11 Dose: 6.25 mg Documented By: MARLON Dextrose (Dextrose 50 % 25 Gm/50 Ml Syringe) 25 gm IVPUSH Q15M PRN; Protocol PRN Reason: per Hypoglycemia Standing Ord. Empagliflozin (Empagliflozin 25 Mg Tablet) 25 mg PO DAILY [facility] Last Admin: 04/17/22 08:11 Dose: 25 mg Documented By: MARLON Furosemide (Furosemide 40 Mg Tablet) 40 mg PO BID@0900,1800 [facility]; Protocol Last Admin: 04/17/22 08:11 Dose: 40 mg Documented By: MARLON Gabapentin (Gabapentin 100 Mg Capsule) 100 mg PO BID [facility] Last Admin: 04/17/22 08:11 Dose: 100 mg Documented By: MARLON Glucose (Glucose Gel 15 Gm Gel..Gram.) 15 gm PO Q15M PRN; Protocol PRN Reason: per Hypoglycemia Standing Ord. Lactated Ringer's (Lr) 1,000 mls @ 0 mls/hr IVCONT .Q0M CARLENE Lactated Ringer's (Lr) 500 mls @ 20 mls/hr IVCONT .Q24H [facility] Last Infusion: 04/17/22 10:58 Dose: 0 mls/hr Documented By: MARLON Insulin Glargine (Insulin Glargine,Hum.Rec.Anlog 100 Unit/Ml 10 Ml Vial) 29 unit SUBCUT BEDTIME [facility] Last Admin: 04/16/22 21:20 Dose: 29 unit Documented By: CAREY Insulin Human Lispro (Insulin Lispro 100 Unit/Ml 3 Ml Vial) 0 unit SUBCUT QIDACHS [facility]; Protocol Last Admin: 04/17/22 07:34 Dose: Not Given Documented By: MARLON Non-Admin Reason: No Insulin Coverage Pharmacy Consult (Consult Rx Perform Med Rec) 1 each MISCELLANE ONCE PRN PRN Reason: Consult order Sodium Chloride (0.9 % Sodium Chloride Flush 3 Ml Syringe) 3 ml IVFLUSH QSHIFT [facility] Last Admin: 04/17/22 08:12 Dose: 3 ml Documented By: MARLON Valsartan (Valsartan 80 Mg Tablet) 80 mg PO BID [facility]; Protocol Last Admin: 04/15/22 08:53 Dose: Not Given Documented By: MARGE Non-Admin Reason: Physician Approved Labs 04/16/22 06:25 04/17/22 06:47 Labs: Laboratory Results - last 24 hr 04/16/22 04/16/22 04/16/22 15:41 19:46 20:30 Anion Gap Estim Creat Clear Calc Estimated GFR POC Glucose 183 H 194 H Random Glucose Calcium Troponin I High Sens 22.1 H B-Natriuretic Peptide 04/17/22 04/17/22 04/17/22 06:47 06:47 07:23 Anion Gap 14 Estim Creat Clear Calc 48.5 Estimated GFR 39 POC Glucose 136 H Random Glucose 128 H Calcium 8.5 Troponin I High Sens B-Natriuretic Peptide 184 H 04/17/22 10:53 Anion Gap Estim Creat Clear Calc Estimated GFR POC Glucose 201 H Random Glucose Calcium Troponin I High Sens B-Natriuretic Peptide Microbiology Microbiology Results: Microbiology 04/15/22 00:00 Urine Culture - Preliminary Urine clean catch - Urine perera top Escherichia coli Assessment and Plan (1) Atrial fibrillation with rapid ventricular response: Status: Acute Plan 67-year-old female with a PMH significant for?paroxysmal AFib on Eliquis and amiodarone, s/p cardioversion 03/13/2022, HFrEFw/EF 15%, triple-vessel CAD, insulin-dependent DM 2 with neuropathy, morbid obesity, HTN, and endometrial cancer s/p hysterectomy in 11/2021 who presents to the ED with?shortness of breath and palpitations. Pt will be admitted to observation on telemetry for treatment and further evaluation of symptomatic Afib with likely cardioversion tomorrow and CHF exacerbation. Chest pain d/t afib with rvr Paroxysmal afib with RVR s/p cardioversion but back in afib continue amio, coreg.. Cardiology to make further recommendation Acute on chronic CHF with reduced EF Likely secondary to AFib Lasix Follow lytes, mg, I/O Recently started on valsartan 80mg po bid( on hold for now but start as blood pressure allows.), with eventual plan to switch to Entresto HTN hold valsartan due to softer bp. Insulin-dependent diabetes Hold home meds SSI, lantus CAD Continue home meds Obesity class II Encourage weight loss. Possible mild LUIS FELIPE on CKD 3: Monitor renal function closely. inpateint need: ongoing med adjustment Time Spent With Patient Time: Total time managing care of this patient today ____ minutes. Quality Stroke Does the patient have a stroke diagnosis?: No VTE Prior VTE?: No VTE Risk Level:: Medical - moderate - high VTE Device Contraindication: Treatment Not Indicated VTE Drug Contraindication: N/A - Med Ordered
[2022-04-17] MEDS: Insulin Lispro 100 UNIT/ML 3 ML VIAL SUBCUT ×2 (12:02→17:09)
--- NOTE | 2022-04-17 12:10 | P.PNCA_ITS ---
Subjective Subjective Date of Service: 04/17/22 <NUNO Rivas - Last Filed: 04/17/22 12:25> 04/17/22 <Cesar Storey MD - Last Filed: 04/17/22 14:13> Principal diagnosis: CHF, atrial fibrillation <NUNO Rivas - Last Filed: 04/17/22 12:25> Interval history: Seen at 1100. Today she is seen resting in bed. Reports feeling tired. Chest is uncomfortable but denies having pain. Can feel heart going a little fast. Breathing back to normal and edema remains resolved. Has been up walking in room today and tolerates activity well. Tele showing atrial flutter rates, 90s- low 100s. <NUNO Rivas Last Filed: 04/17/22 12:25> Review of Systems Review of Systems as above <NUNO Rivas - Last Filed: 04/17/22 12:25> Yes all other systems are reviewed and are negative <NUNO Rivas - Last Filed: 04/17/22 12:25> Physical Exam Vital Signs: Last Vital Signs Temp 97.9 F 04/17/22 10:54 Pulse 100 04/17/22 10:54 Resp 12 04/17/22 10:54 BP 96/66 04/17/22 07:23 Pulse Ox 92 04/17/22 10:54 O2 Del Method 04/17/22 10:54 O2 Flow Rate 2 04/15/22 14:03 BMI result Body Mass Index 40.8 <NUNO Rivas - Last Filed: 04/17/22 12:25> Const General: cooperative, healthy appearing, comfortable and no acute distress <NUNO Rivas Last Filed: 04/17/22 12:25> Orientation/consciousness: patient oriented x3 <NUNO Rivas Last Filed: 04/17/22 12:25> Neck Neck: Yes normal visual inspection <NUNO Rivas Last Filed: 04/17/22 12:25> Resp Effort & Inspection: normal respiratory effort <NUNO Rivas Last Filed: 04/17/22 12:25> Auscultation: clear to auscultation bilaterally, no crackles, no rales, no rhonchi and no wheezes <Imelda Harris NPC - Last Filed: 04/17/22 12:25> Cardio Jugular venous distension: no JVD <ALFREDO RivasC - Last Filed: 04/17/22 12:25> Rate: regular rate <ALFREDO RivasC - Last Filed: 04/17/22 12:25> Rhythm: regular rhythm <Imelda Harris NPC - Last Filed: 04/17/22 12:25> Heart sounds: S1 normal heart sound present, S2 normal heart sound present, no gallops, no murmurs and no rubs <Imelda Harris LIBRARY SCIENCE PROFESSORC - Last Filed: 04/17/22 12:25> Neuro General: patient oriented x3 <Imelda Harris [employer] SCIENCE PROFESSORC - Last Filed: 04/17/22 12:25> Extrem General: Yes normal to inspection, No no pedal edema and No calf tenderness <Imelda Harris NP-C - Last Filed: 04/17/22 12:25> Psych Appearance: grossly normal <ALFREDO RivasC - Last Filed: 04/17/22 12:25> Mental Status: mental status grossly normal <Imelda Harris NP-C - Last Filed: 04/17/22 12:25> Speech and movement: Normal speech and movement present <Imelda Harris LIBR[employer] SCIENCE PROFESSORC - Last Filed: 04/17/22 12:25> Objective Labs and Meds Result diagrams: 04/16/22 06:25 04/17/22 06:47 <Imelda Harris LIBRARY SCIENCE PROFESSOR-C - Last Filed: 04/17/22 12:25> Lab results: Laboratory Results - last 24 hr 04/16/22 04/16/22 04/16/22 15:41 19:46 20:30 Sodium Potassium Chloride Carbon Dioxide Anion Gap BUN Creatinine Estim Creat Clear Calc Estimated GFR POC Glucose 183 H 194 H Random Glucose Calcium Troponin I High Sens 22.1 H B-Natriuretic Peptide 04/17/22 04/17/22 04/17/22 06:47 06:47 07:23 Sodium 140 Potassium 3.5 Chloride 101 Carbon Dioxide 29 Anion Gap 14 BUN 28 H Creatinine 1.37 Estim Creat Clear Calc 48.5 Estimated GFR 39 POC Glucose 136 H Random Glucose 128 H Calcium 8.5 Troponin I High Sens B-Natriuretic Peptide 184 H 04/17/22 10:53 Sodium Potassium Chloride Carbon Dioxide Anion Gap BUN Creatinine Estim Creat Clear Calc Estimated GFR POC Glucose 201 H Random Glucose Calcium Troponin I High Sens B-Natriuretic Peptide <NUNO Rivas - Last Filed: 04/17/22 12:25> Progress Note: A&P Assessment and plan (1) Persistent atrial fibrillation: Status: Acute <NUNO Rivas - Last Filed: 04/17/22 12:25> Assessment and Plan: New finding of atrial fibrillation during admission 02/2022. Her EF was further reduced from her you prior and was thought to be tachycardia mediated. She did undergo a TERRANCE cardioversion on 03/13/22 with success conversion back to sinus rhythm. She was started on amiodarone (Dye free preparation due to allergy). She was readmitted on 04/04/2022 with recurrent heart failure and AFib. It was noticed that she was only taking amiodarone 200 mg daily. Her dose was increased to the full load an outpatient cardioversion was planned. She presented again with heart failure, this admission. 04/15/22 she underwent a cardioversion and did have sinus rhythm which then converted to atrial flutter hours later. Tele continues to shows atrial flutter with average heart rate 90s to low 100s. EKG today, pending. She continues on her amiodarone load presently at 400 mg b.i.d. - will continue the 400mg bid for another 10 days as directed by Dr Storey. Pt can be discharged and we will plan for repeat cardioversion as outpt. Continue Carvedilol. Continue Eliquis 5 mg b.i.d. uninterrupted for anticoagulation. <NUNO Rivas - Last Filed: 04/17/22 12:25> (2) Acute on chronic congestive heart failure: Status: Acute <NUNO Rivas - Last Filed: 04/17/22 12:25> Assessment and Plan: Admit with sob, edema. Acute on Chronic systolic HF. Last echo 04/04/22 with EF 15-20%, + regional WMA consistent with ischemic CMP. 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 Recently discharged following admit for CHF/ AF. Now readmit and treated with IV Lasix. Fluid balance Neg 2510. Edema resolved. Breathing unlabored. She is morbidly obese making her exam more challenging however does not appear fluid overloaded at present. BNP this am 184, Cr 1.37. Changed back to Lasix 40mg po BID. For cardiomyopathy she is on Diovan and Carvedilol for neurohormonal modulation. On Jardiance as well. Continue current meds. <NUNO Rivas - Last Filed: 04/17/22 12:25> (3) Cardiomyopathy: Status: Acute <NUNO Rivas - Last Filed: 04/17/22 12:25> Assessment and Plan: As above <NUNO Rivas - Last Filed: 04/17/22 12:25> (4) Atrial flutter: Status: Acute <NUNO Rivas - Last Filed: 04/17/22 12:25> Assessment and Plan: Tele looks like it could be Sinus tach with 1st degree avb - however at times the conduction rate changes and the flutter waves can be seen. Has been in atrial flutter since short while after 04/15 cardioversion. <NUNO Rivas - Last Filed: 04/17/22 12:25> Assessment and Plan: Seen and examined at bedside. Continues to be in atrial flutter/atrial tachycardia. On amiodarone 400 mg twice a day. I think she should continue the amiodarone at 400 mg twice a day for at least a week. Continue Eliquis at 5 mg twice a day. Carvedilol dose has been decreased to 6.25 mg twice a day I think she should continue same overdose for now. In terms of home medication she should be discharged on 80 mg Lasix b.i.d.. I discussed with her that we will try to cardiovert her again in few weeks time and would let her be loaded with amiodarone little better because she was only taking 200 mg of amiodarone since she started it and did not get an appropriate loading dose. Clinically improved and can go home. Thank you for allowing me to participate in the care of your patient. Please feel free to contact me if you have any questions. <Cesar Storey MD - Last Filed: 04/17/22 14:13> Time Spent With Patient Time: Total time managing care of this patient today _22___ minutes. <NUNO Rivas - Last Filed: 04/17/22 12:25> Progress Note: Quality Stroke Does the patient have a stroke diagnosis?: No <NUNO Rivas - Last Filed: 04/17/22 12:25> Procedures Date of Service Date of Service: 04/17/22 <NUNO Rivas - Last Filed: 04/17/22 12:25>
[2022-04-17 13:00] VITALS: O2SAT 95
--- NOTE | 2022-04-17 14:52 | MHC.CM.PN ---
Per RN CM, Patient has changed from OBSERVATION to INPATIENT; CM met with Patient at bedside and addressed IMM with her (original has been given to Patient and a copy has been placed on the chart).
[2022-04-17 15:09] VITALS: BP 103/59; PULSE 85; RESP 20; TEMP 36; O2SAT 95
--- NOTE | 2022-04-17 15:31 | MHC.CM.PN ---
Patient has been medically cleared for dc to home today, self care.
[2022-04-17 16:01] LABS: Glucose, Whole Blood 196 mg/dL (60-115)
--- OUTSIDE RECORDS SUMMARY | 2022-05-24 14:54 | XMS_ITS | Continuity of Care Document ---
:1955 Author Organization [facility] [employer] On[employer] Address [address] [place] [id number]- Care Team Providers Name Role Phone Otto OWENS, Lily Long Primary Care Physician [phone] Encounter [facility] [place] Date(s): 11/14/21 - 12/14/21 [facility] [employer] [address] [place] [id number] Allergies, Adverse Reactions, Alerts Substance Reaction Severity Status Red Dye Edema of throat Active Medications acetaminophen 325 mg oral tablet 975 mg, 3, tablet, By Mouth, Every 6 hours, # 50 tablet, Refills 0, Tot. Refills 0, Maintenance, 12/06/21 6:09:00 EDT, Route to Pharmacy Electronically, [facility]/pharmacy #[id number], Partial fill upon patient request if the prescription is for a schedule II opi... Start Date: 12/06/21 Status: OrderedAlbuterol (Eqv-ProAir HFA) 90 mcg/inh inhalation aerosol 2 puffs, Inhalation, Every 6 hours, PRN Wheezing/Shortness of Breath, 0 Refills, Maintenance, 12/03/21 17:24:00 EDT, Partial fill upon patient request if the prescription is for a schedule II opioid drug. Start Date: 12/03/21 Status: Orderedaspirin 81 mg oral delayed release tablet 81 mg, 1, tablet, By Mouth, Daily, # 90 tablet, Refills 0, Maintenance, 11/06/21 9:49:00 EDT, Partial fill upon patient request if the prescription is for a schedule II opioid drug. Start Date: 11/06/21 Status: Orderedatorvastatin 10 mg oral tablet 1 tablet = 10 mg, By Mouth, Daily at supper, 0 Refills, Maintenance, 09/14/21 9:17:00 EDT, Partial fill upon patient request if the prescription is for a schedule II opioid drug. Start Date: 09/14/21 Status: Orderedcarvedilol 3.125 mg oral tablet 3.125 mg, 1, tablet, By Mouth, 2 times a day, # 180 tablet, Refills 0, Maintenance, 11/06/21 9:49:00EDT, Partial fill upon patient request if the prescription is for a schedule II opioid drug. Start Date: 11/06/21 Status: Orderedgabapentin 100 mg oral capsule 100 mg, 1, capsule, By Mouth, 2 times a day, Refills 0, Maintenance, 09/14/21 9:14:00 EDT, Partial fill upon patient request if the prescription is for a schedule II opioid drug. Start Date: 09/14/21 Status: Orderedhydrochlorothiazide-lisinopril 25 mg-20 mg oral tablet 1 tablet, By Mouth, Daily, 0 Refills, Maintenance, 09/14/21 9:15:00 EDT, Partial fill upon patient request if the prescription is for a schedule II opioid drug. Start Date: 09/14/21 Status: Orderedibuprofen 600 mg oral tablet 600 mg, 1, tablet, By Mouth, Every 6 hours, PRN, # 30 tablet, Refills 0, Tot. Refills 0, Maintenance, Pain , Mild, 12/06/21 6:10:00 EDT, Route to Pharmacy Electronically, [facility]/pharmacy #[id number], Partial fill upon patient request if the prescription is for... Start Date: 12/06/21 Status: OrderedInsulin Lispro = 12 units, Subcutaneous Injection, 3 times a day before meals, 0 Refills, Maintenance, 11/06/21 10:07:00 EDT, Partial fill upon patient request if the prescription is for a schedule II opioid drug. Start Date: 11/06/21 Status: OrderedJardiance 25 mg oral tablet 1 tablet = 25 mg, By Mouth, Daily in AM, 0 Refills, Maintenance, 09/14/21 9:16:00 EDT, Partial fill upon patient request if the prescription is for a schedule II opioid drug. Start Date: 09/14/21 Status: OrderedLantus Inj = 36 units, Subcutaneous Injection, Daily at bedtime, 0 Refills, Maintenance, 09/14/21 9:16:00 EDT, Partial fill upon patient request if the prescription is for a schedule II opioid drug. Start Date: 09/14/21 Status: OrderedoxyCODONE 5 mg oral tablet 5 mg, 1, tablet, By Mouth, Every 6 hours, PRN, # 15 tablet, Refills 0, Tot. Refills 0, Maintenance, as needed for pain, 12/06/21 6:10:00 EDT, Route to Pharmacy Electronically, [facility]/pharmacy #[id number], Partial fill upon patient request if the prescription i... Start Date: 12/06/21 Status: OrderedSenna 8.6 mg oral tablet 8.6 mg, 1, tablet, By Mouth, Daily at bedtime, # 28 tablet, Refills 0, Tot. Refills 0, Maintenance, 12/05/21 17:10:00 EDT, Route to Pharmacy Electronically, [id number], Partial fill upon patient request if the prescription is for a schedule... Start Date: 12/05/21 Status: Orderedsimethicone 125 mg oral capsule 1 capsule = 125 mg, By Mouth, 4 times a day, PRN Gas, # 30 capsule, 0 Refills, Maintenance, 226:10:00 EDT, Capsule, [facility]/pharmacy #[id number], Partial fill upon patient request if the prescription is for a schedule II opioid drug., 165, cm, 12/05/21 1... Start Date: 12/06/21 Status: OrderedTresiba 100 units/mL subcutaneous solution = 48 units, Subcutaneous Infusion, Daily at bedtime, 0 Refills, Maintenance, 12/03/21 17:17:00 EDT, Partial fill upon patient request if the prescription is for a schedule II opioid drug. Start Date: 12/03/21 Status: OrderedTrulicity Pen 0.75 mg/0.5 mL subcutaneous solution 0.5 mL = 0.75 mg, Subcutaneous Injection, Every week, rotate injection sites, # 2 mL, 0 Refills, Maintenance, 12/03/21 17:19:00 EDT, Solution, Partial fill upon patient request if the prescription is for a schedule II opioid drug. Start Date: 12/03/21 Status: OrderedVitamin B12 1 tablet, By Mouth, Daily, 0 Refills, Maintenance, 11/06/21 9:50:00 EDT, Partial fill upon patient request if the prescription is for a schedule II opioid drug. Start Date: 11/06/21 Status: Ordered Problem List Condition Confirmation Course Effective Dates Status Health I nformant Status Osteonecrosis of Confirmed Active right hip Basal cell carcinoma Confirmed Active Cholelithiases Confirmed Active Esophagitis Confirmed Active Endometrial cancer Confirmed Active IBS (irritable bowel Confirmed Active syndrome) Morbid obesity Confirmed Active Obese class II Confirmed Active Type 2 diabetes Confirmed Active mellitus Social History Social History Type Response Smoking Status Never (less than 100 in life time) entered on: 09/14/21 Sex Patient Care team information PersonnelName: Otto OWENS , Lily Long Address: Address: [address] [place], [place] [address]
--- OUTSIDE RECORDS SUMMARY | 2022-05-24 14:54 | XMS_ITS | Continuity of Care Document ---
:1955 Author Organization [facility] [employer] On[employer] Address [address] [place] [address]- Care Team Providers Name Role Phone Otto OWENS, Lily Long Primary Care Physician [phone] Encounter [facility] [place] Date(s): 09/07/21 - 10/07/21 [facility] [employer] On[facility] [address] [place] [address] [id number] Allergies, Adverse Reactions, Alerts Substance Reaction Severity Status Red Dye Active Medications atorvastatin 10 mg oral tablet 1 tablet = 10 mg, By Mouth, Daily, 0 Refills, Maintenance, 09/14/21 9:17:00 EDT, Partial fill upon patient request if the prescription is for a schedule II opioid drug. Start Date: 09/14/21 Status: Orderedgabapentin 100 mg oral capsule 100 mg, 1, capsule, By Mouth, 3 times a day, Refills 0, Maintenance, 09/14/21 [...] II opioid drug. Start Date: 09/14/21 Status: OrderedJardiance 25 mg oral tablet 1 tablet = 25 mg, By Mouth, Daily in AM, 0 Refills, Maintenance, 09/14/21 9:16:00 EDT, Partial fill upon patient request if the prescription is for a schedule II opioid drug. Start Date: 09/14/21 Status: OrderedLantus Inj Subcutaneous Infusion, Daily, 0 Refills, Maintenance, 09/14/21 9:16:00 EDT, Partial fill upon patient request if the prescription is for a schedule II opioid drug. Start Date: 09/14/21 Status: OrderedSmoothie Readi-Cat 2 oral suspension See Instructions, If scan before 12pm drink 1st drink night before prior to midnight & 2nd [id number] before.If scan after 12pm drink first drink before 8am and 90mins before.If scan after 4pm drink first drink 6hrs and 90mins before., # 2 each, 0 R... Start Date: 09/14/21 Status: Ordered Problem List Condition Effective Dates Status Health Status Informant Osteonecrosis of right hip(Confirmed) Active Basal cell carcinoma(Confirmed) Active Cholelithiases(Confirmed) Active Esophagitis(Confirmed) Active Endometrial cancer(Confirmed) Active IBS (irritable bowel Active syndrome)(Confirmed) Morbid obesity(Confirmed) Active Severe obesity(Confirmed) Active Type 2 diabetes mellitus(Confirmed) Active Social History Social History Type Response Smoking Status Never (less than 100 in life time) entered on: 09/14/21 Sex
--- OUTSIDE RECORDS SUMMARY | 2022-05-24 14:54 | XMS_ITS | Continuity of Care Document ---
:1955 Author Organization [facility] [employer] Address [address] [place] [address]- Care Team Providers Name Role Phone Otto OWENS, Lily Long Primary Care Physician [phone] Encounter [facility] [place] Date(s): 11/07/21 - 12/07/21 [facility] [employer] [address] [place] [id number] [[email or web address]] Allergies, Adverse Reactions, Alerts Substance Reaction Severity Status Red Dye Edema of throat Active Medications acetaminophen 325 mg oral tablet 975 mg, 3, tablet, By Mouth, Every 6 hours, # 50 tablet, Refills 0, Tot. Refills 0, Maintenance, 12/06/21 6:09:00 EDT, Route to Pharmacy Electronically, [facility]/pharmacy #[id number], Partial fill upon patient request if the [...] 12/06/21 6:10:00 EDT, Route to Pharmacy Electronically, [facility]/pharmacy #[id number], Partial fill upon patient request if the [...] 12/06/21 6:10:00 EDT, Route to Pharmacy Electronically, [facility]/pharmacy #[id number], Partial fill upon patient request if the prescription i... Start Date: 12/06/21 Status: OrderedSenna 8.6 mg oral tablet 8.6 mg, 1, tablet, By Mouth, Daily at bedtime, # 28 tablet, Refills 0, Tot. Refills 0, Maintenance, 12/05/21 17:10:00 EDT, Route to Pharmacy Electronically, [id number], Partial fill upon patient request if the prescription is for a schedule... Start Date: 12/05/21 Status: Orderedsimethicone 125 mg oral capsule 1 capsule = 125 mg, By Mouth, 4 times a day, PRN Gas, # 30 capsule, 0 Refills, Maintenance, 226:10:00 EDT, Capsule, [facility]/pharmacy #[id number], Partial fill upon patient request if [...] Date: 11/06/21 Status: Ordered Problem List Condition Effective Dates Status Health Status Informant Osteonecrosis of right hip(Confirmed) Active Basal cell carcinoma(Confirmed) Active Cholelithiases(Confirmed) Active Esophagitis(Confirmed) Active Endometrial cancer(Confirmed) Active IBS (irritable bowel Active syndrome)(Confirmed) Morbid obesity(Confirmed) Active Obese class II(Confirmed) Active Type 2 diabetes mellitus(Confirmed) Active Social History Social History Type Response Smoking Status Never (less than 100 in life time) entered on: 09/14/21 Sex Care Team PersonnelName: Otto OWENS , Lily Long Address: [address] [place] [id number]
--- OUTSIDE RECORDS SUMMARY | 2022-05-24 14:54 | XMS_ITS | Continuity of Care Document ---
:1955 Author Organization [facility] [employer] Address [address] [place] [id number]- Care Team Providers Name Role Phone Lily Menjivar MD Primary Care Physician [phone] Encounter [facility] [place] Date(s): 10/04/21 - 01/10/22 [facility] [employer] [address] [place] [id number] Attending Physician: Talia Herman MD Admitting Physician: Talia Herman MD Referring Physician: Lily Menjivar MD Allergies, Adverse Reactions, Alerts Substance Reaction Severity Status Red Dye Edema of throat Active Medications Albuterol (Eqv-ProAir HFA) 90 mcg/inh inhalation aerosol 2 [...] II opioid drug. Start Date: 11/06/21 Status: Orderedcarvedilol 3.125 mg oral tablet 3.125 [...] 12/06/21 6:10:00 EDT, Route to Pharmacy Electronically, [facility]/pharmacy #[id number], Partial fill upon patient request if the [...] II opioid drug. Start Date: 09/14/21 Status: OrderedMedrol Dosepak 4 mg oral tablet 1 pack/packet, By Mouth, Once, # 21 tablet, 0 Refills, Soft Stop, 12/20/21 10:48:00 EDT, Tablet, [id number], Partial fill upon patient request if the prescription is for a schedule II opioiddrug., 165, cm, 12/20/21 10:36:00 EDT, Height, 10... Start Date: 12/20/21 Status: OrderedTresiba 100 units/mL subcutaneous solution = [...] II opioid drug. Start Date: 12/03/21 Status: Ordered Problem List Condition Confirmation Course [...] Otto OWENS , Lily Long Address: Address: [facility] [place], [place] [address]
--- OUTSIDE RECORDS SUMMARY | 2022-05-24 14:54 | XMS_ITS | Continuity of Care Document ---
:1955 Author Organization [facility] Address [address] [place] [id number]- Care Team Providers Name Role Phone Otto OWENS, Lily Long Primary Care Physician [phone] Encounter [facility] [place] Date(s): 09/21/21 - 11/21/[address] [address]- Attending Physician: Talia Herman MD Admitting Physician: Talia Herman MD Allergies, Adverse Reactions, Alerts Substance Reaction Severity Status Red Dye Edema of throat Active Medications aspirin 81 mg oral delayed release tablet 81 [...] II opioid drug. Start Date: 09/14/21 Status: OrderedInsulin Lispro = 10 units, Subcutaneous Injection, 3 times a day [...] II opioid drug. Start Date: 09/14/21 Status: OrderedVitamin B12 1 tablet, By Mouth, [...] PersonnelName: Otto OWENS , Lily Long Address: [address] [place] [address]
--- OUTSIDE RECORDS SUMMARY | 2022-05-24 14:55 | XMS_ITS | Continuity of Care Document ---
:1955 Author Organization [facility] Address [address] [place] [address]- Care Team Providers Name Role Phone Otto OWENS, Lily Long Primary Care Physician [place] [facility] [place] Date(s): 11/06/21 - 11/06/[address] [address]- Discharge Disposition: A-D/C Home Attending Physician: Cesar Storey MD Admitting Physician: Cesar Storey MD Referring Physician: Imelda Harris NP Allergies, Adverse Reactions, Alerts Substance Reaction Severity [...] II(Confirmed) Active Type 2 diabetes mellitus(Confirmed) Active Vital Signs Most recent to oldest 1 2 3 [Reference Range]: Height 165 cm 165 cm (11/06/21 9:00 AM) (11/06/21 9:00 AM) Weight 105.6 kg 105.6 kg (11/06/21 9:00 AM) (11/06/21 9:00 AM) Oxygen Saturation [94-100 %] 100 % 98 % 97 % (11/06/21 4:00 PM) (11/06/21 3:45 PM) (11/06/21 3:3 0 PM) Pulse Rate [55-90 bpm] 77 bpm (11/06/21 9:00 AM) Body Mass Index [18.5-24.99] 38.79 *>HHI* (11/06/21 9:00 AM) Blood Pressure [90-138/55-84 mm 121/68 mm Hg 122/54 mm Hg 123/66 mm Hg Hg] (11/06/21 4:00 PM) (11/06/21 3:45 PM) (11/06/21 3:3 0 PM) Respiratory Rate [16-30 br/min] 17 br/min 16 br/min 14 br/min (11/06/21 4:00 PM) (11/06/21 3:45 PM) *L* (11/06/21 3:30 PM ) Temperature [96.8-100.4 DegF] 96.9 DegF (11/06/21 9:00 AM) Mode of Delivery (Oxygen) Room air Room air Room a ir (11/06/21 4:00 PM) (11/06/21 3:45 PM) (11/06/21 3:3 0 PM) Blood pressure sites Arm, left Arm, left Arm, left (11/06/21 4:00 PM) (11/06/21 3:45 PM) (11/06/21 3:3 0 PM) Temperature Route Temporal (11/06/21 9:00 AM) Dry Weight 105.6 kg (11/06/21 9:00 AM) Weight Obtained Via Standing scale Standing scale (11/06/21 9:00 AM) (11/06/21 9:00 AM) Dry Weight Obtained Via Standing scale (11/06/21 9:00 AM) Social History Social History Type Response Smoking Status Never (less than 100 in life time) entered on: 09/14/21 Sex
--- OUTSIDE RECORDS SUMMARY | 2022-05-24 14:55 | XMS_ITS | Continuity of Care Document ---
:1955 Author Organization [facility] Address [address] [place] [address]- Care Team Providers Name Role Phone Otto OWENS, Lily Long Primary Care Physician Encounter [facility] [place] Date(s): 12/05/21 - 12/05/[address] [address] Discharge Disposition: A-D/C Home Attending Physician: Talia Herman MD Admitting Physician: Talia Herman MD Referring Physician: Talia Herman MD Allergies, Adverse Reactions, Alerts Substance Reaction Severity Status Red Dye Edema of throat Active Medications acetaminophen 325 mg oral tablet 975 mg, 3, tablet, By Mouth, Every 6 hours, # 50 tablet, Refills 0, Tot. Refills 0, Maintenance, 12/05/21 17:10:00 EDT, Route to Pharmacy Electronically, [id number], Partial fill upon patient request if the prescription is for a schedule II... Start Date: 12/05/21 Status: OrderedAlbuterol (Eqv-ProAir HFA) 90 mcg/inh inhalation [...] Tot. Refills 0, Maintenance, Pain , Mild, 12/05/21 17:24:00 EDT, Route to Pharmacy Electronically, [id number], Partial fill upon patient request if the prescription is... Start Date: 12/05/21 Status: OrderedInsulin Lispro = 12 units, Subcutaneous [...] Refills 0, Maintenance, as needed for pain, 12/05/21 17:10:00 EDT, Route to Pharmacy Electronically, [id number], Partial fill upon patient request if the prescripti... Start Date: 12/05/21 Status: OrderedOxyCODONE IR Tablet 5 mg, Tablet, By Mouth, Every 4 hours, PRN for Pain , Severe, Routine, 12/05/21 17:39:00 EDT Start Date: 12/05/21 Stop Date: 12/12/21 Status: OrderedSenna 8.6 mg oral tablet 8.6 mg, 1, tablet, By Mouth, Daily at bedtime, # 28 tablet, Refills 0, Tot. Refills 0, Maintenance, 12/05/21 17:10:00 EDT, Route to Pharmacy Electronically, [id number], Partial fill upon patient request if the prescription is for a schedule... Start Date: 12/05/21 Status: Orderedsimethicone 125 mg oral capsule 1 capsule = 125 mg, By Mouth, 4 times a day, PRN Gas, # 30 capsule, 0 Refills, Maintenance, 12/05/2216:10:00 EDT, Capsule, [facility], Partial fill upon patient request if the prescription is for a schedule II opioid drug., 165, cm, ... Start Date: 12/05/21 Status: OrderedTresiba 100 units/mL subcutaneous solution = [...] II(Confirmed) Active Type 2 diabetes mellitus(Confirmed) Active Procedures Procedure Date Related Diagnosis Body Site Status Laparoscopic total hysterectomy and 12/05/21 Completed bilateral salpingo-oophorectomy with sentinal lymph node biopsy using robotic assistance Laparoscopy, surgical, enterolysis Completed (freeing of intestinal adhesion) (separate procedure) Vital Signs Most recent to oldest 1 2 3 [Reference Range]: Height 165 cm 165 cm 165 cm (12/05/21 7:04 PM) (12/05/21 12:15 PM) (12/03/21 5: 56 PM) Weight 108 kg 106.8 kg 106.8 kg (12/05/21 7:04 PM) (12/05/21 12:15 PM) (12/03/21 5: 56 PM) Oxygen Saturation [94-100 94 % 98 % 100 % %] (12/05/21 7:20 PM) (12/05/21 7:04 PM) (12/05/21 6:3 0 PM) Pulse Rate [55-90 bpm] 81 bpm 83 bpm (12/05/21 7:04 PM) (12/05/21 12:15 PM) Body Mass Index 39.67 kg/m2 39.23 kg/m2 [18.5-24.99 kg/m2] *>HHI* *>HHI* (12/05/21 7:04 PM) (12/05/21 12:15 PM) Body Mass Index 39.23 [18.5-24.99] *>HHI* (12/03/21 5:56 PM) Blood Pressure 129/68 mm Hg 141/81 mm Hg 148/83 mm Hg [90-138/55-84 mm Hg] (12/05/21 7:04 PM) *H* *H* (12/05/21 6:30 PM) (12/05/21 6:15 PM) Respiratory Rate [16-30 16 br/min 16 br/min 18 br/mi n br/min] (12/05/21 8:55 PM) (12/05/21 7:04 PM) (12/05/21 6:3 0 PM) Temperature [96.8-100.4 98.2 DegF 97.6 DegF 97.9 Deg F DegF] (12/05/21 7:04 PM) (12/05/21 6:00 PM) (12/05/21 5:0 0 PM) Liters per Minute 1 L/min 2 L/min 2 L/min (12/05/21 7:20 PM) (12/05/21 7:04 PM) (12/05/21 6:0 0 PM) Mode of Delivery (Oxygen) Nasal cannula Nasal cannula Nasal cannula (12/05/21 7:20 PM) (12/05/21 7:04 PM) (12/05/21 6:0 0 PM) Blood pressure sites Arm, right Arm, right Arm, right (12/05/21 7:04 PM) (12/05/21 6:30 PM) (12/05/21 6:1 5 PM) Temperature Route Oral Temporal Temporal (12/05/21 7:04 PM) (12/05/21 6:00 PM) (12/05/21 5:0 0 PM) Dry Weight 108 kg 106.0 kg 106.8 kg (12/05/21 7:04 PM) (12/05/21 12:15 PM) (12/03/21 5: 56 PM) Weight Obtained Via Patient/family stated (12/03/21 5:56 PM) Dry Weight Obtained Via Standing scale Patient/family stated (12/05/21 12:15 PM) (12/03/21 5:56 PM) Social History Social History Type Response Smoking Status Never (less than 100 in life time) entered on: 09/14/21 Sex Care Team PersonnelName: Otto OWENS , Lily Long Address: [address] [place] [address]-
--- OUTSIDE RECORDS SUMMARY | 2022-05-24 14:55 | XMS_ITS | Continuity of Care Document ---
:1955 Author Organization [facility] IN HOME SALES REPRESENTATIVE Oncology Address [address] [place] [address]- Care Team Providers Name Role Phone Otto OWENS, Lily Long Primary Care Physician [phone] Encounter [facility] [place] Date(s): 10/05/21 - 11/04/21 [facility] IN HOME SALES REPRESENTATIVE Oncology [address] [place] [id number] Allergies, Adverse Reactions, Alerts Substance [...] night before prior to midnight & 2nd [id number] before.If scan after 12pm drink first drink [...]
--- OUTSIDE RECORDS SUMMARY | 2022-05-24 14:55 | XMS_ITS | Continuity of Care Document ---
:1955 Author Organization [facility] SHEAR HELPER Oncology Address [address] [place] [address]- Care Team Providers Name Role Phone Otto OWENS, Lily Long Primary Care Physician [phone] Encounter [facility] [place] Date(s): 10/18/21 - 11/17/21 [facility] SHEAR HELPER Oncology [address] [place] [phone] Allergies, Adverse Reactions, Alerts Substance Reaction Severity [...] PersonnelName: Otto OWENS , Lily Long Address: [address] [place] [address]
--- OUTSIDE RECORDS SUMMARY | 2022-05-24 14:55 | XMS_ITS | Continuity of Care Document ---
:1955 Author Organization [facility] Address [address] [place] [address]- Care Team Providers Name Role Phone Otto OWENS, Lily Long Primary Care Physician Encounter [facility] [place] Date(s): 10/22/21 - 11/21/21 [facility] [address] [place], [place] [address] Attending Physician: Aidee Quinn Admitting Physician: Aidee Quinn Referring Physician: AdmtrAidee Allergies, Adverse Reactions, Alerts Substance Reaction Severity [...] PersonnelName: Otto OWENS , Lily Long Address: [address] [place] [address]
--- OUTSIDE RECORDS SUMMARY | 2022-05-24 14:55 | XMS_ITS | Continuity of Care Document ---
:1955 Author Organization [facility] LOG SORTING SUPERVISOR Oncology Address [address] [place] [address]- Care Team Providers Name Role Phone Otto OWENS, Lily Long Primary Care Physician En[place] [facility] [place] Date(s): 12/04/21 - 01/03/22 [facility] LOG SORTING SUPERVISOR Oncology [address] [place] [address] Allergies, Adverse Reactions, Alerts Substance Reaction Severity [...] 12/06/21 6:10:00 EDT, Route to Pharmacy Electronically, [facility]/pharmacy #[id number], Partial fill upon patient request if the [...] Refills, Soft Stop, 12/20/21 10:48:00 EDT, Tablet, [facility], Partial fill upon patient [...] Otto OWENS , Lily Long Address: Address: [facility] [place], [place] [address]
--- OUTSIDE RECORDS SUMMARY | 2022-05-24 14:55 | XMS_ITS | Continuity of Care Document ---
:1955 Author Organization [facility] CHANNEL MARKETING MANAGER Oncology Address [address] [place] [address]- Care Team Providers Name Role Phone Otto OWENS, Lily Long Primary Care Physician Encounter [facility] [place] Date(s): 04/23/22 - 05/23/22 [facility] CHANNEL MARKETING MANAGER Oncology [address] [place] [id number] Attending Physician: Aidee Quinn Admitting Physician: AdmtrAidee Referring Physician: Admtr, ArShaun Allergies, Adverse Reactions, Alerts Substance Reaction Severity [...] 12/06/21 6:10:00 EDT, Route to Pharmacy Electronically, [facility]/pharmacy #[id number], Partial fill upon patient request if the [...] Refills, Soft Stop, 12/20/21 10:48:00 EDT, Tablet, [facility], Partial fill upon patient request if the [...] in life time) entered on: 09/14/21 Sex Note Event Display: Cardiology Office Note, Non-BH Authored Date: Event Display: Cardiology Office Note, Non-BH Authored Date: Event Display: Non BH Cardiovascular Results Authored Date: Event Display: Non BH Cardiovascular Results Authored Date: Event Display: NM Nuclear Medicine, Non-BH Authored Date: Event Display: EKG Non BH Authored Date: Event Display: Non BH Lab Results Authored Date: Event Display: Ultrasound Pelvis, Non-BH Authored Date: Event Display: Non BH Lab Results Authored Date: Patient Care team information Care Team PersonnelName: Otto OWENS , Lily Long Position: Reference Physician Member Role: PCP Address: Address: [address] [place] [address]- Name: Pedro Luis Peres Position: [employer] [facility] Member Role: Info System Support1 Name: Jessica Turcios Position: S RN Member Role: Primary Care Nurse Care Team Related PersonsName: JESSICA CORBETT Address: [address] [address] Name: LAUREL CORBETT
--- OUTSIDE RECORDS SUMMARY | 2022-05-24 14:55 | XMS_ITS | Continuity of Care Document ---
:1955 Author Organization [facility] PAGE MAKEUP SYSTEM OPERATOR Oncology Address [address] [place] [address]- Care Team Providers Name Role Phone Lily Menjivar MD Primary Care Physician [phone] Encounter [facility] [place] Date(s): 01/23/22 - 05/23/22 [facility] PAGE MAKEUP SYSTEM OPERATOR Oncology [address] [place] [address] Attending Physician: Talia Herman MD Admitting Physician: [...] 6:10:00 EDT, Route to Pharmacy Electronically, [facility]/pharmacy #[id number], Partial fill upon patient request if the [...] Refills, Soft Stop, 12/20/21 10:48:00 EDT, Tablet, [facility], Partial fill upon patient [...] on: 09/14/21 Sex Patient Care team information Care Team PersonnelName: Otto OWENS , Lily Long Position: Reference Physician Member Role: PCP Address: Address: [address] [place] [address]- Name: Pedro Luis Peres Position: [facility] Member Role: Info System Support1 Name: Jessica Turcios Position: S RN Member Role: Primary Care Nurse Care Team Related PersonsName: JESSICA CORBETT Address: home [address] [place] [id number] Name: LAUREL CORBETT
--- OUTSIDE RECORDS SUMMARY | 2022-05-24 14:55 | XMS_ITS | Continuity of Care Document ---
:1955 Author Organization [facility] Address [address] [place] [address]- Care Team Providers Name Role Phone Otto OWENS, Lily Long Primary Care Physician [place] [facility] [place] 10[place] - 04/10/22 [facility] [address] [place] [address]- Discharge Disposition: A-D/C Home Attending Physician: Jaiden Virk MD Admitting Physician: Jaiden Virk MD Referring Physician: Talia Herman MD Allergies, [...] 12/06/21 6:10:00 EDT, Route to Pharmacy Electronically, [facility]/pharmacy #[id number], Partial fill upon patient request if the [...] Refills, Soft Stop, 12/20/21 10:48:00 EDT, Tablet, [facility], Partial fill upon patient request if the [...] Active Type 2 diabetes Confirmed Active mellitus Vital Signs Most recent to oldest [Reference Range]: 1 Height 165 cm (12/26/21 9:15 AM) Weight 104.8 kg (12/26/21 9:15 AM) Oxygen Saturation [94-100 %] 100 % (12/26/21 9:15 AM) Body Mass Index [18.5-24.99 kg/m2] 38.49 kg/m2 *>HHI* (12/26/21 9:15 AM) Blood Pressure [90-138/55-84 mm Hg] 148/80 mm Hg *H* (12/26/21 9:15 AM) Temperature [96.8-100.4 DegF] 96.9 DegF (12/26/21 9:15 AM) Blood pressure sites Arm, right (12/26/21 9:15 AM) Temperature Route Oral (12/26/21 9:15 AM) Dry Weight 104.8 kg (12/26/21 9:15 AM) Weight Obtained Via Standing scale (12/26/21 9:15 AM) Dry Weight Obtained Via Standing scale (12/26/21 9:15 AM) Social History Social History Type Response Smoking Status Never (less than 100 in life time) entered on: 09/14/21 Sex History and physical note Event Display: History and Physical Hospital Authored Date: Event Display: History and Physical Hospital Authored Date: Event Display: History and Physical Hospital Authored Date: Note Event Display: Non BH Lab Results Authored Date: Patient Care team information Care Team PersonnelName: Otto OWENS , Lily Long Position: Reference Physician Member Role: PCP Address: Address: [address] [place] [address]- Name: Pedro Luis Peres Position: [facility] Member Role: Info System Support1 Name: Jessica Turcios Position: S RN Member Role: Primary Care Nurse Care Team Related PersonsName: JESSICA CORBETT Address: [address] [place] [address] Name: LAUREL CORBETT
--- OUTSIDE RECORDS SUMMARY | 2022-05-24 14:55 | XMS_ITS | Continuity of Care Document ---
:1955 Author Organization [facility] AGENT LICENSING CLERK Oncology Address [address] [place] [address]- Care Team Providers Name Role Phone Otto OWENS, Lily Long Primary Care Physician En[place] [facility] [place] Date(s): 10/22/21 - 11/21/21 [facility] AGENT LICENSING CLERK Oncology [address] [place] [address] Allergies, Adverse Reactions, Alerts Substance [...] PersonnelName: Otto OWENS , Lily Long Address: [address] [place] [address]
--- OUTSIDE RECORDS SUMMARY | 2022-05-24 14:55 | XMS_ITS | Continuity of Care Document ---
:1955 Author Organization [facility] EMPLOYMENT ADJUDICATOR Oncology Address [address] [place] [address]- Care Team Providers Name Role Phone Otto OWENS, Lily Long Primary Care Physician Encounter [facility] [place] Date(s): 10/22/21 - 11/21/21 [facility] EMPLOYMENT ADJUDICATOR Oncology [address] [place] [address] Allergies, Adverse Reactions, Alerts Substance Reaction [...] PersonnelName: Otto OWENS , Lily Long Address: [address] [place] [address]
--- OUTSIDE RECORDS SUMMARY | 2022-05-24 14:55 | XMS_ITS | Continuity of Care Document ---
:1955 Author Organization [facility] VOLUNTEER FIREFIGHTER Oncology Address [address] [place] [address]- Care Team Providers Name Role Phone Otto OWENS, Lily Long Primary Care Physician En[place] [facility] [place] Date(s): 11/08/21 - 12/08/21 [facility] VOLUNTEER FIREFIGHTER Oncology [address] [place] [address] Allergies, Adverse Reactions, Alerts Substance Reaction Severity Status Red Dye Edema of throat Active Medications acetaminophen 325 mg oral tablet 975 mg, 3, tablet, By Mouth, Every 6 hours, # 50 tablet, Refills 0, Tot. Refills 0, Maintenance, 12/06/21 6:09:00 EDT, Route to Pharmacy Electronically, [facility]/pharmacy #[id number], Partial fill upon patient request if the [...] 12/06/21 6:10:00 EDT, Route to Pharmacy Electronically, [facility]/pharmacy #[id number], Partial fill upon patient request if the [...] 12/06/21 6:10:00 EDT, Route to Pharmacy Electronically, [facility]/pharmacy #[id number], Partial fill upon patient request if the prescription i... Start Date: 12/06/21 Status: OrderedSenna 8.6 mg oral tablet 8.6 mg, 1, tablet, By Mouth, Daily at bedtime, # 28 tablet, Refills 0, Tot. Refills 0, Maintenance, 12/05/21 17:10:00 EDT, Route to Pharmacy Electronically, [facility], Partial fill upon patient request if the prescription is for a schedule... Start Date: 12/05/21 Status: Orderedsimethicone 125 mg oral capsule 1 capsule = 125 mg, By Mouth, 4 times a day, PRN Gas, # 30 capsule, 0 Refills, Maintenance, 226:10:00 EDT, Capsule, [facility]/pharmacy #[id number], Partial fill upon patient request [...] PersonnelName: Otto OWENS , Lily Long Address: [address] [place] [address]-
== END 2022-04-17 20:00 | disposition home or self-care (01) | DRG 308 ==
LOC: HO.ED 11:15 → HO.EDOVER 14:02 → HO.IMC 04-15 15:58 → HO.ED 05-24 14:51 → HO.EDOVER 05-24 14:53 → HO.IMC 05-24 14:53
PROVIDERS: Internal Medicine; Internal Medicine Cardiovascular Disease; Nurse Practitioner Family; Physician Assistant Medical; Student in an Organized Health Care Education/Training Program; Admitting Provider Student in an Organized Health Care Education/Training Program; Emergency Provider Student in an Organized Health Care Education/Training Program; PCP Internal Medicine; Visit Provider Internal Medicine
PROC: 5A2204Z Restoration of Cardiac Rhythm, Single (ICD-10-PCS; principal; 2022-04-15 13:00)
DX: I48.19 Other persistent atrial fibrillation (principal); I50.23 Acute on chronic systolic (congestive) heart failure; I13.0 Hypertensive heart and chronic kidney disease with heart failure and stage 1 through stage 4 chronic kidney disease, or unspecified chronic kidney disease; N17.9 Acute kidney failure, unspecified; Z68.41 Body mass index [BMI] 40.0-44.9, adult; E11.40 Type 2 diabetes mellitus with diabetic neuropathy, unspecified; E66.01 Morbid (severe) obesity due to excess calories; I25.10 Atherosclerotic heart disease of native coronary artery without angina pectoris; N18.30 Chronic kidney disease, stage 3 unspecified; E11.22 Type 2 diabetes mellitus with diabetic chronic kidney disease; I42.8 Other cardiomyopathies; E78.2 Mixed hyperlipidemia; Z20.822 Contact with and (suspected) exposure to COVID-19; Z90.710 Acquired absence of both cervix and uterus; Z79.4 Long term (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 of insulin; Z79.01 Long term (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 of anticoagulants; Z79.899 Other long term (current) drug therapy
CPT/HCPCS: 0241U; 36415; 71045; 80048; 80053; 81001; 82947; 83690; 83735; 83880; 84484; 85025; 85027; 85610; 87086; 87088; 87186; 92960; 93005; 96361; 96374; 96376; 99285; J1940

== ENCOUNTER → 2022-04-22 14:12 | Outpatient (BNVA) | payer MEDICARE, SELFPAY | PROVIDERS: PCP Internal Medicine; Visit Provider Internal Medicine Cardiovascular Disease | DX: I48.92 Unspecified atrial flutter (principal); I50.9 Heart failure, unspecified; I42.9 Cardiomyopathy, unspecified; Z79.899 Other long term (current) drug therapy | CPT/HCPCS: 93005; 99212 ==

== ENCOUNTER 2022-04-26 19:42 | Inpatient (IN) | payer MEDICARE, OTHER, SELFPAY ==
--- NOTE | ~2022-04-26 | XR_ITS ---
EXAMINATION: CHEST 2 VIEWS CLINICAL INFORMATION: sob/raymond/orthopnea . COMPARISON: 04/14/2022. TECHNIQUE: PA and lateral views of the chest obtained. FINDINGS: Mild dependent atelectasis. Mild central vascular prominence but no overt edema when compared to the prior study no dense consolidation. Cardiac silhouette within normal limits for size with mild vascular calcification in aorta. No acute bony abnormality. XR/XR chest 2V IMPRESSION: Mild central vascular prominence but no overt edema when compared to the prior study.
--- NOTE | ~2022-04-26 | XR_ITS ---
EXAMINATION: XR CHEST CLINICAL INFORMATION: Shortness of breath COMPARISON: Chest radiographs 05/02/2022, 04/26/2022, 04/14/2022 TECHNIQUE: Portable upright AP view of the chest was obtained. FINDINGS: There is mild cephalization pulmonary vascularity suggesting elevated pulmonary venous pressures. No Myles B lines or coarsening of the interstitial markings. There is trace blunting of the costophrenic angles which may suggest trace effusions. There is no hyperinflation and no focal airspace consolidation or groundglass opacity. The heart is within normal size. The hilar and mediastinal contours and bony structures are unremarkable. XR/XR chest 1V IMPRESSION: 1. Mild cephalization pulmonary vascularity suggesting elevated pulmonary venous pressures. 2. Trace blunting costophrenic angles, likely trace effusions. 3. No airspace consolidation or groundglass opacity.
--- NOTE | ~2022-04-26 | XR_ITS ---
EXAMINATION: XR CHEST CLINICAL INFORMATION: Shortness of breath, cough. COMPARISON: 04/26/2022 chest radiographs. TECHNIQUE: Frontal view of the chest was obtained. FINDINGS: No significant abnormality is noted involving the heart, lungs, mediastinum, bony thorax or soft tissues. XR/XR chest 1V IMPRESSION: No acute cardiopulmonary process.
--- NOTE | 2022-04-26 19:52 | ED_ITS ---
HPI - SOB/Dyspnea General Chief Complaint: Dyspnea <ROBBIE Sullivan - Last Filed: 04/26/22 19:56> Stated Complaint: retaining fluid, irregular heart rhythm, SOB <ROBBIE Sullivan - Last Filed: 04/26/22 19:56> Time Seen by Provider: 04/27/22 03:06 <ROBBIE Sullivan - Last Filed: 04/26/22 19:56> Source: patient <Wilber Kemp MD - Last Filed: 04/27/22 03:48> Mode of arrival: ambulatory <Wilber Kemp MD - Last Filed: 04/27/22 03:48> Limitations: no limitations <Wilber Kemp MD - Last Filed: 04/27/22 03:48> History of Present Illness HPI Narrative: 67-year-old female with history of congestive heart failure, atrial fibrillation presents with water retention and shortness of breath. Patient was discharged from the hospital around April 17. Since then, patient has had perhaps some intermittent water retention. Currently is more severe than usual. She reports abdominal distention, lower extremity edema. In addition, she reports possibly being in atrial flutter. She is on anticoagulation and rate control. Patient has been on diuretics. She was on furosemide, currently on Bumex and recently started on spironolactone. Despite these medications, she continues to retain fluid and be short of breath even with minimal to no exertion. She denies any orthopnea or PND. Patient describes her symptoms as moderate to severe. There does not appear to be any improving facets. <Wilber Kemp MD - Last Filed: 04/27/22 03:48> Related Data Home Medications: Home Medications Medication Instructions Recorded Confirmed blood-glucose meter (FreeStyle 10/25/21 04/22/22 Lite Meter kit) lancets 28 gauge (FreeStyle 10/25/21 04/22/22 Lancets) dulaglutide 1.5 mg/0.5 mL 1.5 mg subcut WE@0900 03/12/22 04/26/22 subcutaneous pen injector (Trulicangus) empagliflozin 25 mg tablet 1 tab PO DAILY 03/12/22 04/26/22 (Jardiance) insulin degludec 100 unit/mL (3 42 unit subcut BEDTIME 03/12/22 04/26/22 mL) subcutaneous pen (Tresiba FlexTouch U-100 insulin) insulin lispro 100 unit/mL 12 unit subcut TIDAC 03/12/22 04/26/22 subcutaneous pen atorvastatin 40 mg tablet 40 mg PO BEDTIME 04/14/22 04/26/22 amiodarone 200 mg tablet 400 mg PO BID 04/22/22 04/26/22 Previous Rx's Medication Instructions Recorded blood sugar diagnostic (FreeStyle #100 ea 10/11/20 Lite Strips) insulin syringe-needle U-100 1/2 #200 ea 11/13/21 mL 31 gauge x 15/64 (BD Veo Insulin Syringe Ultra-Fine) pen needle, diabetic 31 gauge x #100 ea 11/29/21 5/16 (BD Ultra-Fine Short Pen Needle) apixaban 5 mg tablet (Eliquis) 5 mg PO BID #60 tabs 03/16/22 gabapentin 100 mg capsule 100 mg PO BID #60 caps 03/20/22 valsartan 80 mg tablet 80 mg PO BID #60 tabs 04/07/22 bumetanide 2 mg tablet 2 mg PO BID #90 tabs 04/22/22 spironolactone 25 mg tablet 25 mg PO DAILY #60 tabs 04/22/22 <ROBBIE Sullivan - Last Filed: 04/26/22 19:56> Allergies/Adverse Reactions: Allergies Allergy/AdvReac Type Severity Reaction Status Date / Time red dye [Red Dye] Allergy Severe HIVES,THROAT Verified 04/26/22 19:56 CLOSES FROM RED FOOD DYE <ROBBIE Sullivan - Last Filed: 04/26/22 19:56> Review of Systems Review of Systems: CONSTITUTIONAL: Denies weight loss, fever and chills. HEENT: Denies changes in vision and hearing. RESPIRATORY: + SOB no cough. CV: Denies palpitations no CP. GI: Denies abdominal pain, nausea, vomiting and diarrhea. : Denies dysuria and urinary frequency. MSK: Denies myalgia and joint pain. SKIN: Denies rash and pruritus. NEUROLOGICAL: Denies headache and syncope. PSYCHIATRIC: Denies recent changes in mood. Denies anxiety and depression. All other ROS are negative unless in HPI <Wilber Kemp MD - Last Filed: 04/27/22 03:48> [facility] Past Medical History Medical History: Medical History Cardiomyopathy Colonoscopy refused Coronary arteriosclerosis Diabetes type 2, uncontrolled Diabetic neuropathy Endometrial adenocarcinoma Essential hypertension Hiatal hernia History of basal cell carcinoma History of cardioversion History of cholelithiasis History of esophagitis Incomplete left bundle branch block (LBBB) Irritable bowel syndrome (IBS) Ischemic cardiomyopathy Mammogram declined Mild intermittent asthma Mixed dyslipidemia Morbid obesity Obesity due to excess calories Osteoarthritis, knee Osteonecrosis of right hip Papanicolaou smear declined Paroxysmal atrial fibrillation Persistent atrial fibrillation Post-menopausal bleeding Type 2 diabetes mellitus with hyperglycemia, with long-term current use of insulin Type 2 diabetes mellitus with hyperglycemia, without long-term current use of insulin Uterine fibroid Vitamin D deficiency <ROBBIE Sullivan - Last Filed: 04/26/22 19:56> Surgical History: Surgical History H/O hernia repair History of cholecystectomy History of hip surgery History of hysterectomy Hx of section Hx of colonoscopy <ROBBIE Sullivan - Last Filed: 04/26/22 19:56> Family History Family History: Family History Father Myocardial infarction Cardiovascular disease Mother Diabetes mellitus Essential hypertension Daughter Anxiety disorder Mental health disorder Son Mental health disorder <ROBBIE Sullivan - Last Filed: 04/26/22 19:56> Social History Social History: Social History Household Members: Spouse, Family and Children Housing: House Are you a primary child care to a significant other at home: No Do you presently have visiting nurse or other home services: No Alcohol intake: never Patient Tobacco Use Status: Never used Tobacco e-Cigarette/Vaping Use: Never Used Second Hand Smoke Exposure: No Advance Directives: Yes Advance Directives on File: Yes Advance Directives Date on File: 04/08/22 service: No Current occupational status: retired Cognitive needs: No Hearing needs: No Vision needs: Yes <ROBBIE Sullivan - Last Filed: 04/26/22 19:56> Physical Exam Vital Signs: Vital Signs: Last Vital Signs Temp 97.5 F 04/27/22 01:57 Pulse 105 H 04/27/22 01:57 Resp 20 04/27/22 01:57 BP 121/81 04/27/22 01:57 Pulse Ox 96 04/27/22 01:57 O2 Del Method 04/27/22 01:57 BMI result Body Mass Index 38.4 <ROBBIE Sullivan - Last Filed: 04/26/22 19:56> Vital Signs: Last Vital Signs Temp 97.5 F 04/27/22 01:57 Pulse 105 H 04/27/22 01:57 Resp 20 04/27/22 01:57 BP 121/81 04/27/22 01:57 Pulse Ox 96 04/27/22 01:57 O2 Del Method 04/27/22 01:57 BMI result Body Mass Index 38.4 GEN: Well developed, no acute distress, alert, oriented HEENT: Normocephalic, atraumatic, normal external ears, nose appears normal, no oropharyngeal edema or exudates Eyes: Normal to appearance Neck: Supple, no lymphadenopathy Respiratory: Talks in complete sentences, no respiratory distress, clear to auscultation bilaterally, positive dyspnea on exertion Cardiovascular: Regular rate and rhythm, no murmurs rubs or gallops Abdomen: Soft, nontender, nondistended, no guarding, no rebound Back: No CVA tenderness Extremities: No clubbing cyanosis + edema Neurologic: No focal neurologic deficits, cranial nerves 2-12 intact, strength is 5/5 bilaterally, gait normal Skin: No rash <Wilber Kemp MD - Last Filed: 04/27/22 03:48> Course Course Course Narrative: RME- 19:53PM 67-year-old female with a PMHx significant for?paroxysmal Afib on Eliquis and amiodarone, s/p cardioversion 03/13/22, HFrEF w/ EF 15%, triple vessel CAD, insulin-dependent DM2 with neuropathy, morbid obesity, HTN,?and endometrial cancer status post hysterectomy in November 2021?who presents to the ED with c/o feeling like she is retaining fluid, shortness of breath, dyspnea on exertion, orthopnea and bilateral leg swelling for the past few days worse tod ay. Patient was just seen here on 04/14/2022 and admitted then discharged on 04/16/2022. Reports she is taking all her medications as prescribed Plan: Labs, EKG, chest x-ray, COVID/RSV/flu swab. Patient will be sent back to waiting room to be evaluated the ED. <ROBBIE Sullivan - Last Filed: 04/26/22 19:56> Reevaluation(s) Reevaluation #1: Patient continues to be dyspneic and retaining fluid. EKG reveals SB is sinus tachycardia. She is otherwise hemodynamically stable. Chest x-ray was clear. At this point, patient is failing outpatient diuresis and will be unable to optimize her fluid status at home. Will admit the patient for diuresis. Will provide Lasix 40 mg IV x1 <Wilber Kemp MD - Last Filed: 04/27/22 03:48> Time: 03:45 <Wilber Kemp MD - Last Filed: 04/27/22 03:48> Medical Decision Making Medical Decision Making [facility] Narrative: 67-year-old female with history of atrial fibrillation, congestive heart failure with an ejection fraction of 15% presents with shortness of breath and fluid retention. On my evaluation, patient was tachycardic, no acute distress with no conversational dyspnea. She did have visible dyspnea on exertion. She has 1 to 2+ by pedal edema. Rest of her exam is unremarkable. EKG revealed a sinus tachycardia. There were no acute ST elevations or depressions. She has chronic kidney disease which appeared remains fairly stable with no significant electrolyte abnormality. Her proBNP is slightly elevated but appears to be likely at baseline especially given her renal dysfunction. Will provide patient with diuresis and admit to the intermediate care unit. <Wilber Kemp MD - Last Filed: 04/27/22 03:48> Differential Diagnosis Differential Diagnoses: The differential diagnosis associated with the presentation includes (CHF, atrial fibrillation, atrial flutter, anemia, electrolyte abnormality) <Wilber Kemp MD - Last Filed: 04/27/22 03:48> Admission/Observation Consideration of admission/observation: Escalation of care including admission/observation considered <Wilber Kemp MD - Last Filed: 04/27/22 03:48> Consult Healthcare Provider Management of the patient was discussed with: Hospitalist <Wilber Kemp MD - Last Filed: 04/27/22 03:48> Lab Data [facility] Lab Attestation statement: I reviewed the patient's lab results. <Wilber Kemp MD - Last Filed: 04/27/22 03:48> Result Diagrams: 04/26/22 20:54 04/26/22 20:54 <ROBBIE Sullivan - Last Filed: 04/26/22 19:56> Labs: Lab Results 04/26/22 04/26/22 04/26/22 Range/Units 20:54 20:54 20:54 WBC 6.9 (4.8-10.8) X10*3/uL RBC 4.17 L (4.20-5.50) X10*6/uL Hgb 12.5 (12.0-16.0) g/dl Hct 38.4 (37.0-47.0) % MCV 92.1 (80.0-98.0) fL MCH 30.0 (27.0-33.0) pg MCHC 32.6 (31.0-35.0) g/dl RDW 14.8 (11.0-16.0) % Plt Count 243 (160-400) X10*3/uL MPV 9.5 (9.4-12.3) fL Immature Gran % (Auto) 0.3 (0.0-0.4) % Neut % (Auto) 61.1 (45-73) % Lymph % (Auto) 27.0 (20-40) % [place] % (Auto) 3.9 (2-11) % Eos % (Auto) 6.7 H (0-4) % Baso % (Auto) 1.0 (0-2) % Lymph # (Auto) 1.9 (1.2-4.9) X10*3/uL [place] # (Auto) 0.3 (0.1-1.2) X10*3/uL Eos # (Auto) 0.5 H (0.0-0.4) X10*3/uL Baso # (Auto) 0.1 (0.0-0.2) X10*3/uL Abs Immat Gran (auto) 0.02 (0.00-0.03) X10*3/uL Absolute Neuts (auto) 4.2 (2.0-8.3) x10*3/uL Absolute Nucleated RBC 0.000 (0.0-0.012) X10*3/uL Nucleated RBC % (auto) 0.0 (0.0-0.2) /100WBC PT 13.3 H (10.0-13.1) SEC INR 1.2 H (0.9-1.1) Sodium 139 (135-145) mmol/L Potassium 4.1 (3.3-5.1) mmol/L Chloride 96 (96-108) mmol/L Carbon Dioxide 29 (22-29) mmol/L Anion Gap 18 (12-20) BUN 38 H (9-16) mg/dL Creatinine 1.58 H (0.5-1.4) mg/dL Estim Creat Clear Calc 42.1 Estimated GFR 33 Random Glucose 260 H (60-115) mg/dL Calcium 8.9 (8.4-10.2) mg/dL Magnesium 1.7 (1.6-2.6) mg/dL Total Bilirubin 1.0 (0.0-1.0) mg/dL AST 8 (5-31) U/L ALT 9 (0-31) U/L Alkaline Phosphatase 70 (39-117) U/L Troponin I High Sens (<3.5-17.0) ng/L B-Natriuretic Peptide (<100) pg/mL Total Protein 6.6 (6.5-8.0) g/dL Albumin 3.8 (3.5-5.0) g/dL Influenza Type A (PCR) (Negative) Influenza Type B (PCR) (Negative) RSV RNA Qual (PCR) (Negative) SARS-CoV-2 RNA (RT-PCR) (Negative) 04/26/22 04/26/22 04/26/22 Range/Units 20:54 20:54 20:54 WBC (4.8-10.8) X10*3/uL RBC (4.20-5.50) X10*6/uL Hgb (12.0-16.0) g/dl Hct (37.0-47.0) % MCV (80.0-98.0) fL MCH (27.0-33.0) pg MCHC (31.0-35.0) g/dl RDW (11.0-16.0) % Plt Count (160-400) X10*3/uL MPV (9.4-12.3) fL Immature Gran % (Auto) (0.0-0.4) % Neut % (Auto) (45-73) % Lymph % (Auto) (20-40) % [place] % (Auto) (2-11) % Eos % (Auto) (0-4) % Baso % (Auto) (0-2) % Lymph # (Auto) (1.2-4.9) X10*3/uL [place] # (Auto) (0.1-1.2) X10*3/uL Eos # (Auto) (0.0-0.4) X10*3/uL Baso # (Auto) (0.0-0.2) X10*3/uL Abs Immat Gran (auto) (0.00-0.03) X10*3/uL Absolute Neuts (auto) (2.0-8.3) x10*3/uL Absolute Nucleated RBC (0.0-0.012) X10*3/uL Nucleated RBC % (auto) (0.0-0.2) /100WBC PT (10.0-13.1) SEC INR (0.9-1.1) Sodium (135-145) mmol/L Potassium (3.3-5.1) mmol/L Chloride (96-108) mmol/L Carbon Dioxide (22-29) mmol/L Anion Gap (12-20) BUN (9-16) mg/dL Creatinine (0.5-1.4) mg/dL Estim Creat Clear Calc Estimated GFR Random Glucose (60-115) mg/dL Calcium (8.4-10.2) mg/dL Magnesium (1.6-2.6) mg/dL Total Bilirubin (0.0-1.0) mg/dL AST (5-31) U/L ALT (0-31) U/L Alkaline Phosphatase (39-117) U/L Troponin I High Sens 19.2 H (<3.5-17.0) ng/L B-Natriuretic Peptide 247 H (<100) pg/mL Total Protein (6.5-8.0) g/dL Albumin (3.5-5.0) g/dL Influenza Type A (PCR) NEGATIVE (Negative) Influenza Type B (PCR) NEGATIVE (Negative) RSV RNA Qual (PCR) NEGATIVE (Negative) SARS-CoV-2 RNA (RT-PCR) NEGATIVE (Negative) <ROBBIE Sullivan - Last Filed: 04/26/22 19:56> Lab Results 04/26/22 04/26/22 04/26/22 Range/Units 20:54 20:54 20:54 WBC 6.9 (4.8-10.8) X10*3/uL RBC 4.17 L (4.20-5.50) X10*6/uL Hgb 12.5 (12.0-16.0) g/dl Hct 38.4 (37.0-47.0) % MCV 92.1 (80.0-98.0) fL MCH 30.0 (27.0-33.0) pg MCHC 32.6 (31.0-35.0) g/dl RDW 14.8 (11.0-16.0) % Plt Count 243 (160-400) X10*3/uL MPV 9.5 (9.4-12.3) fL Immature Gran % (Auto) 0.3 (0.0-0.4) % Neut % (Auto) 61.1 (45-73) % Lymph % (Auto) 27.0 (20-40) % [place] % (Auto) 3.9 (2-11) % Eos % (Auto) 6.7 H (0-4) % Baso % (Auto) 1.0 (0-2) % Lymph # (Auto) 1.9 (1.2-4.9) X10*3/uL [place] # (Auto) 0.3 (0.1-1.2) X10*3/uL Eos # (Auto) 0.5 H (0.0-0.4) X10*3/uL Baso # (Auto) 0.1 (0.0-0.2) X10*3/uL Abs Immat Gran (auto) 0.02 (0.00-0.03) X10*3/uL Absolute Neuts (auto) 4.2 (2.0-8.3) x10*3/uL Absolute Nucleated RBC 0.000 (0.0-0.012) X10*3/uL Nucleated RBC % (auto) 0.0 (0.0-0.2) /100WBC PT 13.3 H (10.0-13.1) SEC INR 1.2 H (0.9-1.1) Sodium 139 (135-145) mmol/L Potassium 4.1 (3.3-5.1) mmol/L Chloride 96 (96-108) mmol/L Carbon Dioxide 29 (22-29) mmol/L Anion Gap 18 (12-20) BUN 38 H (9-16) mg/dL Creatinine 1.58 H (0.5-1.4) mg/dL Estim Creat Clear Calc 42.1 Estimated GFR 33 Random Glucose 260 H (60-115) mg/dL Calcium 8.9 (8.4-10.2) mg/dL Magnesium 1.7 (1.6-2.6) mg/dL Total Bilirubin 1.0 (0.0-1.0) mg/dL AST 8 (5-31) U/L ALT 9 (0-31) U/L Alkaline Phosphatase 70 (39-117) U/L Troponin I High Sens (<3.5-17.0) ng/L B-Natriuretic Peptide (<100) pg/mL Total Protein 6.6 (6.5-8.0) g/dL Albumin 3.8 (3.5-5.0) g/dL Influenza Type A (PCR) (Negative) Influenza Type B (PCR) (Negative) RSV RNA Qual (PCR) (Negative) SARS-CoV-2 RNA (RT-PCR) (Negative) 04/26/22 04/26/22 04/26/22 Range/Units 20:54 20:54 20:54 WBC (4.8-10.8) X10*3/uL RBC (4.20-5.50) X10*6/uL Hgb (12.0-16.0) g/dl Hct (37.0-47.0) % MCV (80.0-98.0) fL MCH (27.0-33.0) pg MCHC (31.0-35.0) g/dl RDW (11.0-16.0) % Plt Count (160-400) X10*3/uL MPV (9.4-12.3) fL Immature Gran % (Auto) (0.0-0.4) % Neut % (Auto) (45-73) % Lymph % (Auto) (20-40) % [place] % (Auto) (2-11) % Eos % (Auto) (0-4) % Baso % (Auto) (0-2) % Lymph # (Auto) (1.2-4.9) X10*3/uL [place] # (Auto) (0.1-1.2) X10*3/uL Eos # (Auto) (0.0-0.4) X10*3/uL Baso # (Auto) (0.0-0.2) X10*3/uL Abs Immat Gran (auto) (0.00-0.03) X10*3/uL Absolute Neuts (auto) (2.0-8.3) x10*3/uL Absolute Nucleated RBC (0.0-0.012) X10*3/uL Nucleated RBC % (auto) (0.0-0.2) /100WBC PT (10.0-13.1) SEC INR (0.9-1.1) Sodium (135-145) mmol/L Potassium (3.3-5.1) mmol/L Chloride (96-108) mmol/L Carbon Dioxide (22-29) mmol/L Anion Gap (12-20) BUN (9-16) mg/dL Creatinine (0.5-1.4) mg/dL Estim Creat Clear Calc Estimated GFR Random Glucose (60-115) mg/dL Calcium (8.4-10.2) mg/dL Magnesium (1.6-2.6) mg/dL Total Bilirubin (0.0-1.0) mg/dL AST (5-31) U/L ALT (0-31) U/L Alkaline Phosphatase (39-117) U/L Troponin I High Sens 19.2 H (<3.5-17.0) ng/L B-Natriuretic Peptide 247 H (<100) pg/mL Total Protein (6.5-8.0) g/dL Albumin (3.5-5.0) g/dL Influenza Type A (PCR) NEGATIVE (Negative) Influenza Type B (PCR) NEGATIVE (Negative) RSV RNA Qual (PCR) NEGATIVE (Negative) SARS-CoV-2 RNA (RT-PCR) NEGATIVE (Negative) <Wilber Kemp MD - Last Filed: 04/27/22 03:48> Independent Interpretation I performed an independent interpretation of an: EKG (Sinus tachycardia heart rate 104, left bundle-branch block, LVH, left axis deviation, no acute ST elevations or depression) and Plain X-Ray (Chest, no acute cardiopulmonary disease) <Wilber Kemp MD - Last Filed: 04/27/22 03:48> Radiology Impression Discussion of test interpretation with radiology: I have reviewed the radiologist's reading. (IMPRESSION: Mild central vascular prominence but no overt edema when compared to the prior study. Dictated By:Mars Kramer MDSigned By:<Electronically signed by Mars Kramer MD in OV>04/26/[id number]) <Wilber Kemp MD - Last Filed: 04/27/22 03:48> External Record Review External record reviewed: Office record (Recent cardiology note) <Wilber Kemp MD - Last Filed: 04/27/22 03:48> Tests considered The following testing was considered but not selected: CT of the chest <Wilber Kemp MD - Last Filed: 04/27/22 03:48> Prescription Management I considered prescription management with: Other (Diuretics) <Wilber Kemp MD - Last Filed: 04/27/22 03:48> Chronic Conditions Patient?s care impacted by: Hypertension <Wilber Kemp MD - Last Filed: 04/27/22 03:48> Discharge Plan Discharge Clinical Impression: Congestive heart failure <ROBBIE Sullivan - Last Filed: 04/26/22 19:56> Patient Disposition: Admitted As Inpatient <ROBBIE Sullivan - Last Filed: 04/26/22 19:56> Prescriptions: No Action (DME) FreeStyle Lite Strips Strip See Rx Instructions .Route Qty: 100 5RF Rx Instructions: As directed check sugar twice a day before meals (DME) insulin syringe-needle U-100 [BD Veo Insulin Syringe UF] 1/2 mL 31 gauge x 15/64 syringe See Rx Instructions .Route Qty: 200 1RF Rx Instructions: As directed twice a day (DME) pen needle, diabetic [BD Ultra-Fine Short Pen Needle] 31 gauge x 5/16 needle See Rx Instructions .ROUTE .COMPLEX Qty: 100 3RF Dose Instruction: USE 1 PEN NEEDLE ONCE DAILY WITH LANTUS INSULIN Rx Instructions: USE 1 PEN NEEDLE ONCE DAILY WITH LANTUS INSULIN gabapentin 100 mg capsule 100 mg PO BID Qty: 60 0RF insulin lispro 100 unit/mL insulin pen 12 unit subcut TIDAC Rx Instructions: administer before meals Jardiance 25 mg tablet 1 tab PO DAILY insulin degludec [Tresiba FlexTouch U-100] 100 unit/mL (3 mL) insulin pen 42 unit subcut BEDTIME Trulicity 1.5 mg/0.5 mL Pen Injector 1.5 mg SUBCUT WE@0900 Eliquis 5 mg Tablet 5 mg PO BID Qty: 60 0RF valsartan 80 mg Tablet 80 mg PO BID Qty: 60 0RF Protocol: Hold for SBP< HOLD for SBP < : 90 atorvastatin 40 mg tablet 40 mg PO BEDTIME (DME) blood-glucose meter [FreeStyle Lite Meter] Kit See Rx Instructions .Route Rx Instructions: As directed (DME) lancets [FreeStyle Lancets] 28 gauge misc See Rx Instructions .Route Rx Instructions: As directed amiodarone 200 mg tablet 400 mg PO BID Rx Instructions: LOADING DOSE: Take 400mg twice a day then 2/4 it will be 200mg once daily Make sure these are dye free tablets bumetanide 2 mg tablet 2 mg PO BID Qty: 90 3RF spironolactone 25 mg tablet 25 mg PO DAILY Qty: 60 3RF <ROBBIE Sullivan - Last Filed: 04/26/22 19:56>
--- NOTE | 2022-04-26 19:52 | ECG_ITS ---
Test Reason : SOB Blood Pressure : / mmHG Vent. Rate : 104 BPM Atrial Rate : 104 BPM P-R Int : 160 ms QRS Dur : 140 ms QT Int : 390 ms P-R-T Axes : 020 -39 125 degrees QTc Int : 512 ms Atrial tachycardia / Atrial flutter with 2 to 1 block Left axis deviation Left ventricular hypertrophy with QRS widening and repolarization abnormality ( R in aVL , [place] product ) Abnormal ECG When compared with ECG of 17-APR-2022 12:49, No significant changes seen Nonspecific T wave abnormality no longer evident in Inferior leads Referred By: Cindy Ferguson Electronically Signed By:ESVIN ERICKSON MD
[2022-04-26 19:53] VITALS: BP 133/89; PULSE 105; RESP 22; TEMP 36.2; O2SAT 99; BMI 38.4
[2022-04-26 21:02] LABS: Basophils Absolute Auto 0.1 X10*3/uL (0.0-0.2); Eosinophils Absolute Auto 0.5 X10*3/uL (0.0-0.4); Eosinophils Percent Auto 6.7 % (0-4); Hematocrit 38.4 % (37.0-47.0); Hemoglobin 12.5 g/dl (12.0-16.0); Imm Gran Abs Auto 0.02 X10*3/uL (0.00-0.03); Imm Gran Pct Auto 0.3 % (0.0-0.4); Lymphocytes Absolute Auto 1.9 X10*3/uL (1.2-4.9); MANUAL DIFF FLAG NO; Mean Corpuscular HGB Conc 32.6 g/dl (31.0-35.0); Mean Corpuscular Volume 92.1 fL (80.0-98.0); Mean Platelet Volume 9.5 fL (9.4-12.3); Monocytes Absolute Auto 0.3 X10*3/uL (0.1-1.2); Monocytes Percent Auto 3.9 % (2-11); Neutrophils Absolute Auto 4.2 x10*3/uL (2.0-8.3); Neutrophils Percent Auto 61.1 % (45-73); Platelet Count 243 X10*3/uL (160-400); Red Blood Count 4.17 X10*6/uL (4.20-5.50); Red Cell Distribution Width 14.8 % (11.0-16.0); White Blood Count 6.9 X10*3/uL (4.8-10.8)
[2022-04-26 21:08] LABS: INTERNATIONAL NORM RATIO 1.2 (0.9-1.1); Prothrombin Time 13.3 SEC (10.0-13.1)
[2022-04-26 21:18] LABS: Alanine Aminotransferase 9 U/L (0-31); Albumin Level 3.8 g/dL (3.5-5.0); Alkaline Phosphatase 70 U/L (39-117); Anion Gap 18 (12-20); Aspartate Amino Transferase 8 U/L (5-31); Blood Urea Nitrogen 38 mg/dL (9-16); Calcium 8.9 mg/dL (8.4-10.2); Carbon Dioxide 29 mmol/L (22-29); Chloride 96 mmol/L (96-108); Creatinine Clr Calc Pharmacy 42.1; Estimated Glomerular Filt Rate 33; Glucose Random 260 mg/dL (60-115); Magnesium 1.7 mg/dL (1.6-2.6); Potassium 4.1 mmol/L (3.3-5.1); Sodium 139 mmol/L (135-145); Total Protein 6.6 g/dL (6.5-8.0)
[2022-04-26 21:23] LABS: B Type Natriuretic Peptide 247 pg/mL (<100)
[2022-04-26 21:24] LABS: Troponin-I High Sensitivity 19.2 ng/L (<3.5-17.0)
[2022-04-26 21:39] LABS: Influenza A PCR NEGATIVE (Negative); Influenza B PCR NEGATIVE (Negative); Resp Syncy Virus RNA Qual PCR NEGATIVE (Negative); SARS COV2 PCR INHOUSE NEGATIVE (Negative)
--- NOTE | 2022-04-27 | ECG_ITS ---
Test Reason : Atrial flutter Blood Pressure : / mmHG Vent. Rate : 106 BPM Atrial Rate : 106 BPM P-R Int : 184 ms QRS Dur : 134 ms QT Int : 408 ms P-R-T Axes : 000 -39 130 degrees QTc Int : 541 ms Atrial tachycardia / Atrial flutter with 2 to 1 block Left axis deviation Non-specific intra-ventricular conduction block Minimal voltage criteria for LVH, may be normal variant ( [place] product ) Cannot rule out Anterior infarct , age undetermined T wave abnormality, consider lateral ischemia Abnormal ECG When compared with ECG of 26-APR-2022 20:44, No significant change was found Referred By: Diego Valdez Electronically Signed By:DIEGO VALDEZ MD
[2022-04-27 01:57] VITALS: BP 121/81; PULSE 105; RESP 20; TEMP 36.4; O2SAT 96
[2022-04-27 04:41] VITALS: BP 109/70; PULSE 105; RESP 18; TEMP 36.2; O2SAT 93
[2022-04-27] MEDS: Furosemide 40 MG/4 ML VIAL IVPUSH ×2 (04:44→09:13)
[2022-04-27 05:42] VITALS: PULSE 103; RESP 17
--- NOTE | 2022-04-27 05:46 | P.HPHOSP_ITS ---
History of Present Illness Date of Service: 04/27/22 Chief Complaint: Shortness of breath 67-year-old female with past medical history of CHF with ejection fraction of 15 20%, AFib/a flutter, HTN, IBS, history of endometrial carcinoma, diabetes presents the hospital complaints of shortness of breath. Patient reports symptoms started about 5 days ago. She reports that she was seen by Cardiology, earlier in the month, her retics would switch to bumetanide and spironolactone was added to days ago with no relief of her symptoms. She reports lower extremity edema, cough with no sputum production, no fever or chills, she reports orthopnea and PND. Reports the swelling has reached her abdomen and therefore decided to come to the hospital. She denies having any nausea no vomiting, no abdominal pain, no urinary symptoms. No numbness tingling. No palpitations. No chest pain. On arrival to the ED patient hemodynamically stable with a heart rate of 105, respiratory rate of 22, blood pressure 133/89 satting 99% on room air EKG shows sinus tachycardia Labs are significant for WBC count of 6.9, creatinine of 1.58 which is slightly higher than her baseline of 1.3-1.4 BNP of 247, COVID-19 RSV and influenza negative. Chest x-ray shows mild central vascular prominence Patient started on IV Lasix and will be admitted for further management Review of Systems Review of Systems: Yes all other systems are reviewed and are negative [facility] Medical History Cardiomyopathy Colonoscopy refused Coronary arteriosclerosis Diabetes type 2, uncontrolled Diabetic neuropathy Endometrial adenocarcinoma Essential hypertension Hiatal hernia History of basal cell carcinoma History of cardioversion History of cholelithiasis History of esophagitis Incomplete left bundle branch block (LBBB) Irritable bowel syndrome (IBS) Ischemic cardiomyopathy Mammogram declined Mild intermittent asthma Mixed dyslipidemia Morbid obesity Obesity due to excess calories Osteoarthritis, knee Osteonecrosis of right hip Papanicolaou smear declined Paroxysmal atrial fibrillation Persistent atrial fibrillation Post-menopausal bleeding Type 2 diabetes mellitus with hyperglycemia, with long-term current use of insulin Type 2 diabetes mellitus with hyperglycemia, without long-term current use of insulin Uterine fibroid Vitamin D deficiency Family History Father Myocardial infarction Cardiovascular disease Mother Diabetes mellitus Essential hypertension Daughter Anxiety disorder Mental health disorder Son Mental health disorder Surgical History H/O hernia repair History of cholecystectomy History of hip surgery History of hysterectomy Hx of section Hx of colonoscopy Social History Household Members: Spouse, Family and Children Housing: House Are you a primary healthcare corporate account director to a significant other at home: No Do you presently have visiting nurse or other home services: No Alcohol intake: never Patient Tobacco Use Status: Never used Tobacco e-Cigarette/Vaping Use: Never Used Second Hand Smoke Exposure: No Advance Directives: Yes Advance Directives on File: Yes Advance Directives Date on File: 04/08/22 service: No Current occupational status: retired Cognitive needs: No Hearing needs: No Vision needs: Yes Meds Allergies Allergy/AdvReac Type Severity Reaction Status Date / Time red dye [Red Dye] Allergy Severe HIVES,THROAT Verified 04/26/22 19:56 CLOSES FROM RED FOOD DYE Active Medications: Current Medications Pharmacy Consult (Consult Rx Perform Med Rec) 1 each MISCELLANE ONCE PRN PRN Reason: Consult order Home Medications Medication Instructions Recorded Confirmed Last Taken Type blood-glucose meter (FreeStyle 10/25/21 04/22/22 Unknown History Lite Meter kit) lancets 28 gauge (FreeStyle 10/25/21 04/22/22 Unknown History Lancets) dulaglutide 1.5 mg/0.5 mL 1.5 mg subcut WE@0900 03/12/22 04/26/22 04/13/22 History subcutaneous pen injector (Trulicity) empagliflozin 25 mg tablet 1 tab PO DAILY 03/12/22 04/26/22 04/13/22 History (Jardiance) insulin degludec 100 unit/mL (3 42 unit subcut BEDTIME 03/12/22 04/26/22 04/13/22 History mL) subcutaneous pen (Tresiba FlexTouch U-100 insulin) insulin lispro 100 unit/mL 12 unit subcut TIDAC 03/12/22 04/26/22 04/13/22 History subcutaneous pen atorvastatin 40 mg tablet 40 mg PO BEDTIME 04/14/22 04/26/22 04/13/22 History amiodarone 200 mg tablet 400 mg PO BID 04/22/22 04/26/22 Unknown History carvedilol 6.25 mg tablet 1 tab PO BID 04/27/22 04/27/22 Unknown History furosemide 80 mg tablet 1 tab PO BID 04/27/22 04/27/22 Unknown History Physical Exam Vital Signs and Narrative: Vital Signs: Last Vital Signs Temp 97.1 F 04/27/22 04:41 Pulse 105 H 04/27/22 04:41 Resp 18 04/27/22 04:41 BP 109/70 04/27/22 04:41 Pulse Ox 93 04/27/22 04:41 O2 Del Method 04/27/22 04:41 BMI result Body Mass Index 38.4 Const: General: cooperative and no acute distress Orientation/consciousness: patient oriented x3 Eyes: General: appearance normal, both eyes and all related structures Resp: Other: Tachycardia Effort & Inspection: normal respiratory effort Cardio: Rate: regular rate Rhythm: regular rhythm GI: Palpation (GI): Soft to palpation Auscultation: normal bowel sounds Skin: General skin exam: no rashes or lesions noted Neuro: General: patient oriented x3 Cognition (Neuro): normal cognition Extrem: Other: 2+ lower extremity edema General: Yes normal to inspection Results Labs 04/26/22 20:54 04/26/22 20:54 Labs: Laboratory Results - last 24 hr 04/26/22 04/26/22 04/26/22 20:54 20:54 20:54 MCV 92.1 MCH 30.0 MCHC 32.6 RDW 14.8 Plt Count 243 MPV 9.5 Immature Gran % (Auto) 0.3 Neut % (Auto) 61.1 Lymph % (Auto) 27.0 [place] % (Auto) 3.9 Eos % (Auto) 6.7 H Baso % (Auto) 1.0 Lymph # (Auto) 1.9 [place] # (Auto) 0.3 Eos # (Auto) 0.5 H Baso # (Auto) 0.1 Abs Immat Gran (auto) 0.02 Absolute Neuts (auto) 4.2 Absolute Nucleated RBC 0.000 Nucleated RBC % (auto) 0.0 PT 13.3 H INR 1.2 H Anion Gap 18 Estim Creat Clear Calc 42.1 Estimated GFR 33 Random Glucose 260 H Calcium 8.9 Magnesium 1.7 Total Bilirubin 1.0 AST 8 ALT 9 Alkaline Phosphatase 70 Troponin I High Sens B-Natriuretic Peptide Total Protein 6.6 Albumin 3.8 Influenza Type A (PCR) Influenza Type B (PCR) RSV RNA Qual (PCR) SARS-CoV-2 RNA (RT-PCR) 04/26/22 04/26/22 04/26/22 20:54 20:54 20:54 MCV MCH MCHC RDW Plt Count MPV Immature Gran % (Auto) Neut % (Auto) Lymph % (Auto) [place] % (Auto) Eos % (Auto) Baso % (Auto) Lymph # (Auto) [place] # (Auto) Eos # (Auto) Baso # (Auto) Abs Immat Gran (auto) Absolute Neuts (auto) Absolute Nucleated RBC Nucleated RBC % (auto) PT INR Anion Gap Estim Creat Clear Calc Estimated GFR Random Glucose Calcium Magnesium Total Bilirubin AST ALT Alkaline Phosphatase Troponin I High Sens 19.2 H B-Natriuretic Peptide 247 H Total Protein Albumin Influenza Type A (PCR) NEGATIVE Influenza Type B (PCR) NEGATIVE RSV RNA Qual (PCR) NEGATIVE SARS-CoV-2 RNA (RT-PCR) NEGATIVE Imaging Radiologist's Impressions: Impressions Chest X-Ray 04/26/22 20:09 IMPRESSION: Mild central vascular prominence but no overt edema when compared to the prior study. Assessment and Plan (1) Acute exacerbation of CHF (congestive heart failure): Status: Acute Plan 67-year-old female past medical history of CHF with reduced ejection fraction presents to the hospital with complaints of shortness of breath, as well as lower extremity swelling found to have acute CHF exacerbation # acute CHF exacerbation - has ejection fraction of 15-20% - was on Bumex with no improvement of her symptoms - dyspnea, lower extremity edema, orthopnea, PND, elevated BNP as well as imaging suggestive of volume overload - will treat with IV Lasix - strict I&O, low-sodium diet, daily weight - cardiology consult - continue spironolactone # history of AFib,/a flutter - continue Eliquis and carvedilol # diabetes - continue home insulin - will add low-dose sliding scale insulin DVT prophylaxis: Eliquis Given patient's need for IV Lasix for management of above patient require minimum 2 nights inpatient hospital stay for further management and monitoring Time Spent With Patient Time: Total time managing care of this patient today ____ minutes. Quality Stroke Does the patient have a stroke diagnosis?: No VTE Prior VTE?: No VTE Risk Level:: Medical - moderate - high VTE Device Contraindication: Treatment Not Indicated VTE Drug Contraindication: N/A - Med Ordered
--- NOTE | 2022-04-27 05:46 | PC.NURSE ---
iv line placed and 40mg lasix given per mar. bedside commode placed in room with hat inside to monitor urine output
[2022-04-27 07:36] LABS: Glucose, Whole Blood 211 mg/dL (60-115)
[2022-04-27 07:36] LABS: Alanine Aminotransferase 10 U/L (0-31); Albumin Level 3.9 g/dL (3.5-5.0); Alkaline Phosphatase 74 U/L (39-117); Anion Gap 20 (12-20); Aspartate Amino Transferase 11 U/L (5-31); Bilirubin Total 1.5 mg/dL (0.0-1.0); Blood Urea Nitrogen 34 mg/dL (9-16); Calcium 9.2 mg/dL (8.4-10.2); Carbon Dioxide 24 mmol/L (22-29); Chloride 97 mmol/L (96-108); Creatinine Clr Calc Pharmacy 49.6; Estimated Glomerular Filt Rate 40; Glucose Random 216 mg/dL (60-115); Potassium 3.8 mmol/L (3.3-5.1); Sodium 137 mmol/L (135-145); Total Protein 7.1 g/dL (6.5-8.0)
[2022-04-27 07:42] LABS: Troponin-I High Sensitivity 21.8 ng/L (<3.5-17.0)
[2022-04-27 07:53] VITALS: BP 113/68; PULSE 104; RESP 22; TEMP 36.7; O2SAT 95
[2022-04-27] MEDS: Insulin Lispro 100 UNIT/ML 3 ML VIAL 12 UNIT SUBCUT ×3 (07:57→18:25)
[2022-04-27] MEDS: Insulin Lispro 100 UNIT/ML 3 ML VIAL SUBCUT ×4 (07:57→19:51)
[2022-04-27] MEDS: 0.9 % Sodium Chloride Flush 3 ML SYRINGE IVFLUSH (07:59)
--- NOTE | 2022-04-27 08:50 | PHA.MEDREC ---
Pharmacy Consult ? Medication Reconciliation Pharmacy has completed the medication reconciliation. Spoke to patient who has list with them.
[2022-04-27] MEDS: Gabapentin 100 MG CAPSULE PO ×2 (09:12→19:50)
[2022-04-27] MEDS: carvediloL 6.25 MG TABLET PO ×2 (09:12→19:50)
[2022-04-27] MEDS: Spironolactone 25 MG TABLET PO (09:13)
[2022-04-27] MEDS: Amiodarone HCL 200 MG TABLET PO (09:13)
[2022-04-27] MEDS: Apixaban 5 MG TABLET PO ×2 (09:13→19:50)
--- NOTE | 2022-04-27 10:09 | PM.CNCAR ---
History of Present Illness History of Present Illness Date of Service: 04/27/22 Requesting physician: Facundo Fajardo Consult reason: congestive heart failure Chief complaint: Acute CHF exacerbation Narrative: I was consulted to see July in cardiology consultation today for management of decompensated congestive heart failure. She is 67-year-old woman with progressive ischemic cardiomyopathy severe LV systolic dysfunction and may have a component of rate mediated cardiomyopathy with atrial fibrillation which has been difficult control and remains in persistent atrial fibrillation despite repeated cardioversion, plan for outpatient cardioversion on 05/01. Patient also has history of heart failure with reduced ejection fraction with recurrent hospitalization in last few months with decompensation. Patient present to the hospital was recently seen in the office and oral diuretics were switched from Lasix to bumetanide due to poor oral response. Heart despite that patient continue to have progressive symptoms of leg edema, abdominal distension shortness of breath. Patient came to the hospital noted to have BNP which is elevated in the upper 200 range. Clinically fluid overloaded. Has been given Lasix 40 mg IV b.i.d. says has gone to the bathroom but no eyes and nose have been charted. Rhythm noted to be by my opinion atrial flutter with 105 110 beats per minute. Patient says she still short of breath. Denies any chest pain, lightheadedness, syncope. Has been taking all her medication and watching salt in her diet. Review of Systems Constitutional: Constitutional: Reports no additional constitutional complaints Cardiovascular: Cardiovascular: Reports Abdominal Distension, Denies chest pain, Reports rapid heart rate, Reports leg edema, Denies lightheadedness, Denies Loss of Consciousness, Denies palpitations, Reports dyspnea and Reports orthopnea Respiratory: Respiratory: Reports no additional respiratory complaints and Reports dyspnea Genitourinary: Genitourinary: Reports no additional female genitourinary complaints Musculoskeletal: Musculoskeletal: Reports no additional musculoskeletal complaints Integumentary/Breasts: Skin/Breast: Reports system reviewed and no additional complaints, except as docu Neurologic: Reports system reviewed and no additional complaints, except as documented Psychiatric: Psychiatric: Reports no additional psychiatric complaints Endocrine: Endocrine: Denies palpitations PMFSH Past Medical History Medical History Cardiomyopathy Colonoscopy refused Coronary arteriosclerosis Diabetes type 2, uncontrolled Diabetic neuropathy Endometrial adenocarcinoma Essential hypertension Hiatal hernia History of basal cell carcinoma History of cardioversion History of cholelithiasis History of esophagitis Incomplete left bundle branch block (LBBB) Irritable bowel syndrome (IBS) Ischemic cardiomyopathy Mammogram declined Mild intermittent asthma Mixed dyslipidemia Morbid obesity Obesity due to excess calories Osteoarthritis, knee Osteonecrosis of right hip Papanicolaou smear declined Paroxysmal atrial fibrillation Persistent atrial fibrillation Post-menopausal bleeding Type 2 diabetes mellitus with hyperglycemia, with long-term current use of insulin Type 2 diabetes mellitus with hyperglycemia, without long-term current use of insulin Uterine fibroid Vitamin D deficiency Family History Family History Father Myocardial infarction Cardiovascular disease Mother Diabetes mellitus Essential hypertension Daughter Anxiety disorder Mental health disorder Son Mental health disorder Surgical History Surgical History H/O hernia repair History of cholecystectomy History of hip surgery History of hysterectomy Hx of section Hx of colonoscopy Social History Social History Household Members: Spouse, Family and Children Housing: House Are you a primary director of primary care to a significant other at home: No Do you presently have visiting nurse or other home services: No Alcohol intake: never Patient Tobacco Use Status: Never used Tobacco e-Cigarette/Vaping Use: Never Used Second Hand Smoke Exposure: No Advance Directives: Yes Advance Directives on File: Yes Advance Directives Date on File: 04/08/22 service: No Current occupational status: retired Cognitive needs: No Hearing needs: No Vision needs: Yes Meds Allergies Allergy/AdvReac Type Severity Reaction Status Date / Time red dye [Red Dye] Allergy Severe HIVES,THROAT Verified 04/26/22 19:56 CLOSES FROM RED FOOD DYE Active Medications: Current Medications Amiodarone HCl (Amiodarone Hcl 200 Mg Tablet) 200 mg PO DAILY [facility] Last Admin: 04/27/22 09:13 Dose: 200 mg Apixaban (Apixaban 5 Mg Tablet) 5 mg PO BID [facility] Last Admin: 04/27/22 09:13 Dose: 5 mg Atorvastatin Calcium (Atorvastatin Calcium 40 Mg Tablet) 40 mg PO BEDTIME [facility] Carvedilol (Carvedilol 6.25 Mg Tablet) 6.25 mg PO BID [facility]; Protocol Last Admin: 04/27/22 09:12 Dose: 6.25 mg Dextrose (Dextrose 50 % 25 Gm/50 Ml Syringe) 25 gm IVPUSH Q15M PRN; Protocol PRN Reason: per Hypoglycemia Standing Ord. Furosemide (Furosemide 40 Mg/4 Ml Vial) 40 mg IVPUSH BID@0900,1800 [facility]; Protocol Last Admin: 04/27/22 09:13 Dose: 40 mg Gabapentin (Gabapentin 100 Mg Capsule) 100 mg PO BID [facility] Last Admin: 04/27/22 09:12 Dose: 100 mg Glucose (Glucose Gel 15 Gm Gel..Gram.) 15 gm PO Q15M PRN; Protocol PRN Reason: per Hypoglycemia Standing Ord. Insulin Glargine (Insulin Glargine,Hum.Rec.Anlog 100 Unit/Ml 10 Ml Vial) 29 unit SUBCUT BEDTIME [facility] Insulin Human Lispro (Insulin Lispro 100 Unit/Ml 3 Ml Vial) 12 unit SUBCUT TIDAC [facility] Last Admin: 04/27/22 07:57 Dose: 12 unit Insulin Human Lispro (Insulin Lispro 100 Unit/Ml 3 Ml Vial) 0 unit SUBCUT QIDACHS [facility]; Protocol Last Admin: 04/27/22 07:57 Dose: 4 unit Ondansetron HCl (Ondansetron Hcl 4 Mg/2 Ml Vial) 4 mg IVPUSH Q8H PRN PRN Reason: Nausea and Vomiting Pharmacy Consult (Consult Rx Perform Med Rec) 1 each MISCELLANE ONCE PRN PRN Reason: Consult order Sodium Chloride (0.9 % Sodium Chloride Flush 3 Ml Syringe) 3 ml IVFLUSH QSHIFT [facility] Last Admin: 04/27/22 07:59 Dose: 3 ml Spironolactone (Spironolactone 25 Mg Tablet) 25 mg PO DAILY [facility]; Protocol Last Admin: 04/27/22 09:13 Dose: 25 mg Valsartan (Valsartan 80 Mg Tablet) 80 mg PO BID [facility]; Protocol Home Medications Medication Instructions Recorded Confirmed Last Taken Type blood-glucose meter (FreeStyle 10/25/21 04/22/22 Unknown History Lite Meter kit) lancets 28 gauge (FreeStyle 10/25/21 04/22/22 Unknown History Lancets) dulaglutide 1.5 mg/0.5 mL 1.5 mg subcut WE@0900 03/12/22 04/27/22 04/24/22 History subcutaneous pen injector ([facility]) empagliflozin 25 mg tablet 1 tab PO DAILY 03/12/22 04/27/22 04/26/22 History (Jardiance) insulin degludec 100 unit/mL (3 42 unit subcut BEDTIME 03/12/22 04/27/22 04/26/22 History mL) subcutaneous pen (Tresiba FlexTouch U-100 insulin) insulin lispro 100 unit/mL 12 unit subcut TIDAC 03/12/22 04/27/22 04/26/22 History subcutaneous pen atorvastatin 40 mg tablet 40 mg PO BEDTIME 04/14/22 04/27/22 04/26/22 History amiodarone 200 mg tablet 200 mg PO DAILY 04/22/22 04/27/22 04/26/22 History carvedilol 6.25 mg tablet 1 tab PO BID 04/27/22 04/27/22 04/23/22 History Physical Exam Vital Signs: Vital Signs: Last Vital Signs Temp 98.0 F 04/27/22 07:53 Pulse 104 H 04/27/22 07:53 Resp 22 H 04/27/22 07:53 BP 113/68 04/27/22 07:53 Pulse Ox 95 04/27/22 07:53 O2 Del Method 04/27/22 07:53 BMI result Body Mass Index 38.4 Const: General: cooperative, comfortable, alert, awake and in distress mild Nutritional Appearance: obese Orientation/consciousness: patient oriented x3 HEENT: Head: Yes normocephalic and Yes atraumatic Neck: Neck: Yes trachea midline, Yes supple and Yes JVD Resp: Effort & Inspection: normal respiratory effort Auscultation: rales bilateral at the base Cardio: Jugular venous distension: JVD Rate: tachycardic Rhythm: regular rhythm Heart sounds: S1 normal heart sound present, S2 normal heart sound present, no click, no gallops and no murmurs GI: Inspection: Yes distended and Yes obesity Auscultation: normal bowel sounds Skin: General skin exam: no rashes or lesions noted Neuro: General: patient oriented x3 and no focal motor deficits Extrem: General: Yes no clubbing, cyanosis or edema Objective Labs and Meds 04/26/22 20:54 04/27/22 06:30 Lab results: Laboratory Results - last 24 hr 04/26/22 04/26/22 04/26/22 20:54 20:54 20:54 WBC 6.9 RBC 4.17 L Hgb 12.5 Hct 38.4 MCV 92.1 MCH 30.0 MCHC 32.6 RDW 14.8 Plt Count 243 MPV 9.5 Immature Gran % (Auto) 0.3 Neut % (Auto) 61.1 Lymph % (Auto) 27.0 [place] % (Auto) 3.9 Eos % (Auto) 6.7 H Baso % (Auto) 1.0 Lymph # (Auto) 1.9 [place] # (Auto) 0.3 Eos # (Auto) 0.5 H Baso # (Auto) 0.1 Abs Immat Gran (auto) 0.02 Absolute Neuts (auto) 4.2 Absolute Nucleated RBC 0.000 Nucleated RBC % (auto) 0.0 PT 13.3 H INR 1.2 H Sodium 139 Potassium 4.1 Chloride 96 Carbon Dioxide 29 Anion Gap 18 BUN 38 H Creatinine 1.58 H Estim Creat Clear Calc 42.1 Estimated GFR 33 POC Glucose Random Glucose 260 H Calcium 8.9 Magnesium 1.7 Total Bilirubin 1.0 AST 8 ALT 9 Alkaline Phosphatase 70 Troponin I High Sens B-Natriuretic Peptide Total Protein 6.6 Albumin 3.8 Influenza Type A (PCR) Influenza Type B (PCR) RSV RNA Qual (PCR) SARS-CoV-2 RNA (RT-PCR) 04/26/22 04/26/22 04/26/22 20:54 20:54 20:54 WBC RBC Hgb Hct MCV MCH MCHC RDW Plt Count MPV Immature Gran % (Auto) Neut % (Auto) Lymph % (Auto) [place] % (Auto) Eos % (Auto) Baso % (Auto) Lymph # (Auto) [place] # (Auto) Eos # (Auto) Baso # (Auto) Abs Immat Gran (auto) Absolute Neuts (auto) Absolute Nucleated RBC Nucleated RBC % (auto) PT INR Sodium Potassium Chloride Carbon Dioxide Anion Gap BUN Creatinine Estim Creat Clear Calc Estimated GFR POC Glucose Random Glucose Calcium Magnesium Total Bilirubin AST ALT Alkaline Phosphatase Troponin I High Sens 19.2 H B-Natriuretic Peptide 247 H Total Protein Albumin Influenza Type A (PCR) NEGATIVE Influenza Type B (PCR) NEGATIVE RSV RNA Qual (PCR) NEGATIVE SARS-CoV-2 RNA (RT-PCR) NEGATIVE 04/27/22 04/27/22 04/27/22 06:30 06:30 07:33 WBC RBC Hgb Hct MCV MCH MCHC RDW Plt Count MPV Immature Gran % (Auto) Neut % (Auto) Lymph % (Auto) [place] % (Auto) Eos % (Auto) Baso % (Auto) Lymph # (Auto) [place] # (Auto) Eos # (Auto) Baso # (Auto) Abs Immat Gran (auto) Absolute Neuts (auto) Absolute Nucleated RBC Nucleated RBC % (auto) PT INR Sodium 137 Potassium 3.8 Chloride 97 Carbon Dioxide 24 Anion Gap 20 BUN 34 H Creatinine 1.34 Estim Creat Clear Calc 49.6 Estimated GFR 40 POC Glucose 211 H Random Glucose 216 H Calcium 9.2 Magnesium Total Bilirubin 1.5 H AST 11 ALT 10 Alkaline Phosphatase 74 Troponin I High Sens 21.8 H B-Natriuretic Peptide Total Protein 7.1 Albumin 3.9 Influenza Type A (PCR) Influenza Type B (PCR) RSV RNA Qual (PCR) SARS-CoV-2 RNA (RT-PCR) EKG shows atrial tachycardia/atypical atrial flutter with 2 is to 1 conduction with incomplete left bundle-branch block Imaging Radiologist's impression: Impressions Chest X-Ray 04/26/22 20:09 IMPRESSION: Mild central vascular prominence but no overt edema when compared to the prior study. Assessment and Plan (1) Acute exacerbation of CHF (congestive heart failure): Status: Acute Patient presents with progressive symptoms of decompensated congestive heart failure due to poor response to oral diuretic regimen. Clinically appears to be fluid overloaded. Will start on Bumex drip at 0.5 mg an hour. Strict intake and output chart needs to be pursued. Continue to monitor renal function as well as BNP. Continue current neurohormonal modulation with carvedilol as well as spironolactone. Switch Diovan to Entresto 24-26 mg b.i.d.. Add Jardiance 10 mg to her regimen. Will continue to monitor her. Most importantly she require rhythm control approach and will pursue that most likely on Friday. She has significant cardiomyopathy which is combination of appears to be ischemic cardiomyopathy rate-related cardiomyopathy. She will require ischemic workup including viability study as outpatient once she is more stable and has avoided recurrent hospitalization. (2) Atrial flutter: Status: Acute Currently more organized rhythm with atrial flutter but still with tachycardia responsive recent Holter monitor shows poor rate control. Will benefit from rhythm control approach. Has not been able to maintain rhythm in the past because of inadequate dosing of amiodarone. Now has been loaded with amiodarone currently maintained 200 mg daily. Will attempt synchronized cardioversion 1 more time. If she fails to rhythm control and has difficulty controlling her rate may require AV bria ablation with pacemaker placement. This was discussed with the, this would be a last resort option. Continue full oral anticoagulation with Eliquis. Will continue to follow with you Time Spent With Patient Time: Total time managing care of this patient today ____ minutes. Procedures Date of Service Date of Service: 04/27/22
[2022-04-27] MEDS: Valsartan 80 MG TABLET PO (10:37)
[2022-04-27] MEDS: Bumetanide 25 MG in Container,Empty 0 ML IVCONT (11:30)
[2022-04-27 12:07] VITALS: BP 91/56; PULSE 101; RESP 18; TEMP 36.7; O2SAT 91
[2022-04-27 12:13] LABS: Glucose, Whole Blood 195 mg/dL (60-115)
--- NOTE | 2022-04-27 14:42 | PM.EVENT ---
Event Note Date of Service: 04/27/22 Event Note: This patient is seen and examined with APC. 67-year-old female with past medical history of CHF with ejection fraction of 15 20%, AFib/a flutter, HTN, IBS, history of endometrial carcinoma, diabetes presents the hospital complaints of shortness of breath-still says feel short of breath with exertion. Has leg edema. Lab reviewed. Physical exam : unchnaged fromh&p. assessment and plan coordinated in APCs note, Agree with the plan in addition: chf execerebation (HF with reduced Ef): moniter weight( dry weight unclear ) i/o adjusted diuretics to iv bumex,hold losartan due to boderline bp. afib: continue coreg/amio qtc prolong ? ch added mag and potassium supplements keep k>4 and mag>2 morbid obesity: Encouraged to lose weight. Time Spent With Patient Time: Total time managing care of this patient today ____ minutes.
[2022-04-27] MEDS: Potassium Chloride Packet 20 MEQ PACKET PO (15:11)
[2022-04-27 17:27] LABS: Glucose, Whole Blood 187 mg/dL (60-115)
[2022-04-27] MEDS: Magnesium Oxide 400 MG TABLET 800 MG PO (18:44)
[2022-04-27 19:46] LABS: Glucose, Whole Blood 269 mg/dL (60-115)
[2022-04-27] MEDS: Insulin Glargine,Hum.rec.anlog 100 UNIT/ML 10 ML VIAL 29 UNIT SUBCUT (19:50)
[2022-04-27] MEDS: Atorvastatin Calcium 40 MG TABLET PO (19:50)
[2022-04-27 19:53] VITALS: BP 110/60; PULSE 103; RESP 18; TEMP 36.1; O2SAT 94
[2022-04-28] VITALS: BP 119/61; PULSE 103; RESP 18; TEMP 36.1; O2SAT 94
[2022-04-28 04:00] VITALS: BP 116/74; PULSE 105; RESP 18; TEMP 36.2; O2SAT 96
[2022-04-28 06:00] VITALS: BMI 38.7
[2022-04-28 07:45] VITALS: BP 110/73; PULSE 103; RESP 20; TEMP 36.1; O2SAT 93
[2022-04-28 08:11] LABS: Glucose, Whole Blood 229 mg/dL (60-115)
[2022-04-28] MEDS: Insulin Lispro 100 UNIT/ML 3 ML VIAL 12 UNIT SUBCUT ×3 (08:13→16:27)
[2022-04-28] MEDS: Insulin Lispro 100 UNIT/ML 3 ML VIAL SUBCUT ×3 (08:14→16:28)
[2022-04-28] MEDS: Apixaban 5 MG TABLET PO ×2 (08:57→20:39)
[2022-04-28] MEDS: 0.9 % Sodium Chloride Flush 3 ML SYRINGE IVFLUSH ×2 (08:57→16:28)
[2022-04-28] MEDS: Gabapentin 100 MG CAPSULE PO ×2 (08:57→20:38)
[2022-04-28] MEDS: Magnesium Oxide 400 MG TABLET 800 MG PO ×2 (08:57→16:27)
[2022-04-28] MEDS: carvediloL 6.25 MG TABLET PO ×2 (08:57→20:39)
[2022-04-28] MEDS: Spironolactone 25 MG TABLET PO (08:57)
--- NOTE | 2022-04-28 09:45 | P.PNIM_ITS ---
Subjective Subjective Date of Service: 04/28/22 Interval History: chf excerebation Review of Systems still sob and edematous Denies any chest pain or nausea vomiting or abdominal pain. Physical Exam Vital Signs: Vital Signs: Last Vital Signs Temp 96.9 F 04/28/22 07:45 Pulse 103 H 04/28/22 07:45 Resp 20 04/28/22 07:45 BP 110/73 04/28/22 07:45 Pulse Ox 93 04/28/22 07:45 O2 Del Method 04/28/22 07:45 BMI result Body Mass Index 38.7 Appearance: Alert.? Oriented X3.?sob with exersion cvs: rrr, [id number] ,jvd equivocal. res: clear to auscultation ,no rhonchii or wheezing abd: no rebound or guarding ,nt, bs present. ext pulses present , no cyanosis , b/l leg edema 2+. neuro: axo3 , nonfocal. Objective Data Active Medications Apixaban (Apixaban 5 Mg Tablet) 5 mg PO BID [facility] Last Admin: 04/28/22 08:57 Dose: 5 mg Documented By: BETHEL Atorvastatin Calcium (Atorvastatin Calcium 40 Mg Tablet) 40 mg PO BEDTIME [facility] Last Admin: 04/27/22 19:50 Dose: 40 mg Documented By: NADIYA Carvedilol (Carvedilol 6.25 Mg Tablet) 6.25 mg PO BID [facility]; Protocol Last Admin: 04/28/22 08:57 Dose: 6.25 mg Documented By: BETHEL Dextrose (Dextrose 50 % 25 Gm/50 Ml Syringe) 25 gm IVPUSH Q15M PRN; Protocol PRN Reason: per Hypoglycemia Standing Ord. Gabapentin (Gabapentin 100 Mg Capsule) 100 mg PO BID [facility] Last Admin: 04/28/22 08:57 Dose: 100 mg Documented By: BETHEL Glucose (Glucose Gel 15 Gm Gel..Gram.) 15 gm PO Q15M PRN; Protocol PRN Reason: per Hypoglycemia Standing Ord. Bumetanide 25 mg/ IV (Miscellaneous Supplies) 100 mls @ 2 mls/hr IVCONT .Q24H [facility] Last Admin: 04/27/22 11:30 Dose: 0.5 mg/hr, 2 mls/hr Documented By: SHARON Insulin Glargine (Insulin Glargine,Hum.Rec.Anlog 100 Unit/Ml 10 Ml Vial) 29 unit SUBCUT BEDTIME [facility] Last Admin: 04/27/22 19:50 Dose: 29 unit Documented By: NADIYA Insulin Human Lispro (Insulin Lispro 100 Unit/Ml 3 Ml Vial) 12 unit SUBCUT TIDAC [facility] Last Admin: 04/28/22 08:13 Dose: 12 unit Documented By: ALEX Insulin Human Lispro (Insulin Lispro 100 Unit/Ml 3 Ml Vial) 0 unit SUBCUT QIDACHS [facility]; Protocol Last Admin: 04/28/22 08:14 Dose: 4 unit Documented By: ALEX Magnesium Oxide (Magnesium Oxide 400 Mg Tablet) 800 mg PO BIDPC [facility] Last Admin: 04/28/22 08:57 Dose: 800 mg Documented By: BETHEL Pt Own (Amiodarone (200 Mg)) 200 mg PO DAILY [facility] Last Admin: 04/28/22 08:57 Dose: 200 mg Documented By: BETHEL Ondansetron HCl (Ondansetron Hcl 4 Mg/2 Ml Vial) 4 mg IVPUSH Q8H PRN PRN Reason: Nausea and Vomiting Pharmacy Consult (Consult Rx Perform Med Rec) 1 each MISCELLANE ONCE PRN PRN Reason: Consult order Sodium Chloride (0.9 % Sodium Chloride Flush 3 Ml Syringe) 3 ml IVFLUSH QSHIFT [facility] Last Admin: 04/28/22 08:57 Dose: 3 ml Documented By: BETHEL Spironolactone (Spironolactone 25 Mg Tablet) 25 mg PO DAILY [facility]; Protocol Last Admin: 04/28/22 08:57 Dose: 25 mg Documented By: BETHEL Valsartan (Valsartan 80 Mg Tablet) 80 mg PO BID [facility]; Protocol Last Admin: 04/27/22 10:37 Dose: 80 mg Documented By: SHARON Labs 04/26/22 20:54 04/27/22 06:30 Labs: Laboratory Results - last 24 hr 04/27/22 04/27/22 04/27/22 12:06 17:23 19:41 POC Glucose 195 H 187 H 269 H 04/28/22 07:47 POC Glucose 229 H Assessment and Plan (1) Acute exacerbation of CHF (congestive heart failure): Status: Acute (2) Atrial flutter: Status: Acute (3) Obesity, Class II, BMI 35-39.9: Status: Acute (4) Hyperglycemia: Status: Acute Plan Hospital day:2 67-year-old female past medical history of CHF with reduced ejection fraction presents to the hospital with complaints of shortness of breath, as well as lower extremity swelling found to have acute CHF exacerbation 1.acute CHF exacerbation(HF with reduced Ef around 20-30%) dyspnea, lower extremity edema, orthopnea, PND, elevated BNP as well as imaging suggestive of volume overload dry weight -?unclear butlast weight heather weight on03/28 with pcp 231lbs current weight is -233 lbs [strict I&O] - 1.1 liter neg ,daily weights,bnp elevated 247( baseline around 180's) bmp and bnp pending for today sob seems somewhat improving ,leg edema continue low-sodium diet, switched to IV bumex yesterday , continue sprinolactone,coreg ,will start back valsartan after repeatin renal function/electrolytes today and if bloodpressure allows. cardiology eval noted . 2.history of chronic AFib/a flutter: hr [id number] - continue Eliquis and carvedilol,amiodarone. 3.diabetes with hyperglycemia : fs in 180-220( possible iv diuresis might be contributin to it ). dm diet continue home insulin regimen. adjusted sliding scale insulin 4.qtc prolong ? chronic improving last qtc is 490 ms keep k>4 and mag>2 moniter electrolytes 5. morbid obesity:? Encouraged to lose weight. DVT prophylaxis: Eliquis inpatient need :acute CHF exacerbation(HF with reduced Ef around 20-30%) for IV Bumex Bumex monitoring, renal function and electrolyte monitoring, tele monitor. Time Spent With Patient Time: Total time managing care of this patient today ____ minutes. Quality Stroke Does the patient have a stroke diagnosis?: No VTE Prior VTE?: No VTE Risk Level:: Medical - moderate - high VTE Device Contraindication: Treatment Not Indicated VTE Drug Contraindication: N/A - Med Ordered
[2022-04-28] MEDS: Bumetanide 25 MG in Container,Empty 0 ML IVCONT (10:43)
[2022-04-28 10:49] VITALS: BP 115/71; PULSE 105; RESP 20; TEMP 36.1; O2SAT 94
[2022-04-28 10:56] LABS: Anion Gap 22 (12-20); Blood Urea Nitrogen 43 mg/dL (9-16); Calcium 9.2 mg/dL (8.4-10.2); Carbon Dioxide 23 mmol/L (22-29); Chloride 96 mmol/L (96-108); Estimated Glomerular Filt Rate 32; Glucose Random 186 mg/dL (60-115); Potassium 4.5 mmol/L (3.3-5.1); Sodium 136 mmol/L (135-145)
[2022-04-28 10:59] LABS: B Type Natriuretic Peptide 219 pg/mL (<100)
[2022-04-28 11:12] LABS: Magnesium 1.8 mg/dL (1.6-2.6)
[2022-04-28 11:23] LABS: Glucose, Whole Blood 174 mg/dL (60-115)
--- NOTE | 2022-04-28 11:27 | P.PNCA_ITS ---
Subjective Subjective Date of Service: 04/28/22 Principal diagnosis: CHF, atrial flutter Interval history: Patient feeling better less short of breath with diuresis. Diuresing okay. Less abdominal distension. Continues to have leg edema. No orthopnea, PND. No palpitations. Review of Systems Constitutional: Reports no additional constitutional complaints Cardiovascular: Denies chest pain, Reports leg edema, Denies lightheadedness, Denies Loss of Consciousness, Denies palpitations, Reports dyspnea on exertion and Denies orthopnea Respiratory: Reports no additional respiratory complaints and Reports dyspnea on exertion Genitourinary: Reports no additional female genitourinary complaints Skin/Breast: Reports system reviewed and no additional complaints, except as docu Psychiatric: Reports no additional psychiatric complaints Endocrine: Denies palpitations Physical Exam Vital Signs: Last Vital Signs Temp 97.0 F 04/28/22 10:49 Pulse 105 H 04/28/22 10:49 Resp 20 04/28/22 10:49 BP 115/71 04/28/22 10:49 Pulse Ox 94 04/28/22 10:49 O2 Del Method 04/28/22 10:49 BMI result Body Mass Index 38.7 Const General: cooperative, comfortable, alert, awake and in distress mild Nutritional Appearance: obese Orientation/consciousness: patient oriented x3 Neck Neck: Yes trachea midline, Yes supple and Yes JVD Resp Effort & Inspection: normal respiratory effort Auscultation: clear to auscultation bilaterally Cardio Jugular venous distension: JVD Rate: tachycardic Rhythm: regular rhythm Heart sounds: S1 normal heart sound present, S2 normal heart sound present, no click, no gallops and no murmurs GI Inspection: Yes distended and Yes obesity Auscultation: normal bowel sounds Skin General skin exam: no rashes or lesions noted Neuro General: patient oriented x3 and no focal motor deficits Extrem General: Yes no clubbing, cyanosis or edema Objective Labs and Meds 04/26/22 20:54 04/28/22 10:11 Lab results: Laboratory Results - last 24 hr 04/27/22 04/27/22 04/27/22 12:06 17:23 19:41 Sodium Potassium Chloride Carbon Dioxide Anion Gap BUN Creatinine Estim Creat Clear Calc Estimated GFR POC Glucose 195 H 187 H 269 H Random Glucose Calcium Magnesium B-Natriuretic Peptide 04/28/22 04/28/22 04/28/22 07:47 10:11 10:11 Sodium 136 Potassium 4.5 Chloride 96 Carbon Dioxide 23 Anion Gap 22 H BUN 43 H Creatinine 1.63 H Estim Creat Clear Calc 41.0 Estimated GFR 32 POC Glucose 229 H Random Glucose 186 H Calcium 9.2 Magnesium 1.8 B-Natriuretic Peptide 219 H 04/28/22 10:51 Sodium Potassium Chloride Carbon Dioxide Anion Gap BUN Creatinine Estim Creat Clear Calc Estimated GFR POC Glucose 174 H Random Glucose Calcium Magnesium B-Natriuretic Peptide Progress Note: A&P Assessment and plan (1) Acute exacerbation of CHF (congestive heart failure): Status: Acute Assessment and Plan: Patient symptom medically better. Abdominal distension is better. Reduce Bumex 2.2 5 mg an hour drip due to slightly rising creatinine and improved fluid status to reduce more aggressive diuresis will continue with diuretic therapy. Continue monitor renal function closely. Will benefit from rhythm control approach, will try to perform synchronized cardioversion tomorrow. Continue oth er neurohormonal modulation at this point time. Please trend BNP tomorrow. Will eventually require ischemic workup to see she would benefit from revascularization. (2) Atrial flutter: Status: Acute Assessment and Plan: Persistent atrial flutter despite being on amiodarone therapy. Plan for synchronized cardioversion tomorrow. Continue full oral anticoagulation. Continue carvedilol and amiodarone therapy. Please keep her NPO past midnight. Discussed with her the need for cardioversion she understands. Will continue to follow with you Time Spent With Patient Time: Total time managing care of this patient today ____ minutes. Progress Note: Quality Stroke Does the patient have a stroke diagnosis?: No Procedures Date of Service Date of Service: 04/28/22
--- NOTE | 2022-04-28 15:28 | MHC.CM.PN ---
PT LIVES WITH HER AND CHILDREN SHE IS INDEPENDENT WITH CARE, HAS NO DME AND NO SERVICES HCP ON FILE COVID VAX + PCP: JIGNESH MIRANDA DCP: HOME NO SERVICES FAMILY TO TRANSPORT
[2022-04-28 16:00] VITALS: BP 100/63; PULSE 101; RESP 19; TEMP 36.6; O2SAT 91
[2022-04-28 16:00] LABS: Glucose, Whole Blood 217 mg/dL (60-115)
[2022-04-28 20:00] VITALS: BP 117/75; PULSE 101; RESP 18; TEMP 36.2; O2SAT 98
[2022-04-28] MEDS: Atorvastatin Calcium 40 MG TABLET PO (20:38)
[2022-04-28 21:15] LABS: Glucose, Whole Blood 185 mg/dL (60-115)
[2022-04-29] VITALS (7 sets, daily range): BP systolic 93–111; BP diastolic 52–80; PULSE 84–104; RESP 16–20; TEMP 36–36.7; O2SAT 92–96; BMI 38.9
[2022-04-29 07:26] LABS: Glucose, Whole Blood 185 mg/dL (60-115)
[2022-04-29] MEDS: Gabapentin 100 MG CAPSULE PO ×2 (08:54→21:14)
[2022-04-29] MEDS: Magnesium Oxide 400 MG TABLET 800 MG PO ×2 (08:54→16:58)
[2022-04-29] MEDS: carvediloL 6.25 MG TABLET PO ×2 (08:54→21:14)
[2022-04-29] MEDS: Apixaban 5 MG TABLET PO ×2 (08:54→21:14)
[2022-04-29] MEDS: Spironolactone 25 MG TABLET PO (08:54)
[2022-04-29] MEDS: 0.9 % Sodium Chloride Flush 3 ML SYRINGE IVFLUSH (08:56)
--- NOTE | 2022-04-29 11:12 | P.PNCA_ITS ---
Subjective Subjective Date of Service: 04/29/22 Principal diagnosis: CHF, atrial flutter Interval history: Seen examined at bedside. Improving with diuretics per significantly volume overloaded currently. She also has a dry cough today. Physical Exam Vital Signs: Last Vital Signs Temp 96.8 F 04/29/22 07:23 Pulse 104 H 04/29/22 07:23 Resp 16 04/29/22 07:23 BP 110/80 04/29/22 07:23 Pulse Ox 95 04/29/22 07:23 O2 Del Method 04/29/22 07:23 BMI result Body Mass Index 38.9 GENERAL APPEARANCE: in no acute distress, pleasant. NECK: no carotid bruit, elevated jugular venous distention to angle of jaw. SKIN: no suspicious lesions, warm and dry. HEART: no murmurs, regular rate and rhythm. Tachycardic. LUNGS: clear to auscultation bilaterally. ABDOMEN: soft, nontender. EXTREMITIES: Positive edema. PERIPHERAL PULSES: equal. NEUROLOGIC: No gross deficits, AAO X 3 Objective Labs and Meds 04/26/22 20:54 04/28/22 10:11 Lab results: Laboratory Results - last 24 hr 04/28/22 04/28/22 04/28/22 10:11 10:51 15:29 POC Glucose 174 H 217 H Magnesium 1.8 04/28/22 04/29/22 21:12 07:21 POC Glucose 185 H 185 H Magnesium Progress Note: A&P Assessment and plan (1) Atrial flutter: Status: Acute (2) Acute exacerbation of CHF (congestive heart failure): Status: Acute Plan 67-year-old female who is here for congestive heart failure. She recently had 2 admissions for congestive heart failure which she was noticed to be in AFib with RVR. She was cardioverted twice but went back into atrial fibrillation initially and then atrial tachycardia/atrial flutter. Our plan was to load her better with amiodarone and re-attempt the cardioversion but she was short of b reath and was volume overloaded. Her Lasix was stopped and she was put on Bumex but it appears that did not work. Our plan was to use metolazone but she has red dye allergy and metolazone could not be used. She is admitted to the hospital and has been on Bumex drip at this stage. She is diuresing well. She has significant volume overload right now and I think which keep going and diurese her. Once she is euvolemic then I would cardiovert her because my worry is that she may develop arrhythmia again if she is in heart failure. I think going forward we will use torsemide rather than for also might and Bumex. Clearly she is not responding to oral furosemide and Bumex at this point. Thank you for allowing me to participate in the care of your patient. Please feel free to contact me if you have any questions. Time Spent With Patient Time: Total time managing care of this patient today ____ minutes. Progress Note: Quality Stroke Does the patient have a stroke diagnosis?: No Procedures Date of Service Date of Service: 04/29/22
[2022-04-29 11:38] LABS: Glucose, Whole Blood 175 mg/dL (60-115)
--- NOTE | 2022-04-29 12:01 | P.CONNP_ITS ---
History of Present Illness Reason for Consult Consult date: 04/29/22 Chief Complaint Chief complaint: Acute CHF exacerbation History of Present Illness Narrative: 67 year old patient with history of CKD admitted with decompensated CHF now with worsening kidney function. In summary she presented with worsening shortness of breath and lower exxtremity edema for several days. She is known to have a history of systolic dysfunction with LVEF 15-20%. There is no report of fever, chills, nausea, vomiting or diarrhea. Review of Systems Review of Systems 10 points ROS negative except for pertinent [facility] Past Medical History Medical History Cardiomyopathy Colonoscopy refused Coronary arteriosclerosis Diabetes type 2, uncontrolled Diabetic neuropathy Endometrial adenocarcinoma Essential hypertension Hiatal hernia History of basal cell carcinoma History of cardioversion History of cholelithiasis History of esophagitis Incomplete left bundle branch block (LBBB) Irritable bowel syndrome (IBS) Ischemic cardiomyopathy Mammogram declined Mild intermittent asthma Mixed dyslipidemia Morbid obesity Obesity due to excess calories Osteoarthritis, knee Osteonecrosis of right hip Papanicolaou smear declined Paroxysmal atrial fibrillation Persistent atrial fibrillation Post-menopausal bleeding Type 2 diabetes mellitus with hyperglycemia, with long-term current use of insulin Type 2 diabetes mellitus with hyperglycemia, without long-term current use of insulin Uterine fibroid Vitamin D deficiency Family History Family History Father Myocardial infarction Cardiovascular disease Mother Diabetes mellitus Essential hypertension Daughter Anxiety disorder Mental health disorder Son Mental health disorder Surgical History Surgical History H/O hernia repair History of cholecystectomy History of hip surgery History of hysterectomy Hx of section Hx of colonoscopy Social History Social History Household Members: Spouse and Children Housing: House Are you a primary career agent to a significant other at home: No Do you presently have visiting nurse or other home services: No Alcohol intake: never Patient Tobacco Use Status: Never used Tobacco e-Cigarette/Vaping Use: Never Used Second Hand Smoke Exposure: No Advance Directives Date on File: 04/08/22 service: No Current occupational status: retired Cognitive needs: No Hearing needs: No Vision needs: Yes Meds Allergies Allergy/AdvReac Type Severity Reaction Status Date / Time red dye [Red Dye] Allergy Severe HIVES,THROAT Verified 04/26/22 19:56 CLOSES FROM RED FOOD DYE Active Medications: Current Medications Apixaban (Apixaban 5 Mg Tablet) 5 mg PO BID [facility] Last Admin: 04/29/22 08:54 Dose: 5 mg Atorvastatin Calcium (Atorvastatin Calcium 40 Mg Tablet) 40 mg PO BEDTIME [facility] Last Admin: 04/28/22 20:38 Dose: 40 mg Carvedilol (Carvedilol 6.25 Mg Tablet) 6.25 mg PO BID [facility]; Protocol Last Admin: 04/29/22 08:54 Dose: 6.25 mg Dextrose (Dextrose 50 % 25 Gm/50 Ml Syringe) 25 gm IVPUSH Q15M PRN; Protocol PRN Reason: per Hypoglycemia Standing Ord. Gabapentin (Gabapentin 100 Mg Capsule) 100 mg PO BID [facility] Last Admin: 04/29/22 08:54 Dose: 100 mg Glucose (Glucose Gel 15 Gm Gel..Gram.) 15 gm PO Q15M PRN; Protocol PRN Reason: per Hypoglycemia Standing Ord. Bumetanide 25 mg/ IV (Miscellaneous Supplies) 100 mls @ 1 mls/hr IVCONT .Q24H [facility] Last Admin: 04/29/22 11:45 Dose: Not Given Insulin Glargine (Insulin Glargine,Hum.Rec.Anlog 100 Unit/Ml 10 Ml Vial) 29 unit SUBCUT BEDTIME [facility] Last Admin: 04/28/22 21:14 Dose: Not Given Insulin Human Lispro (Insulin Lispro 100 Unit/Ml 3 Ml Vial) 12 unit SUBCUT TIDAC [facility] Last Admin: 04/29/22 11:45 Dose: Not Given Insulin Human Lispro (Insulin Lispro 100 Unit/Ml 3 Ml Vial) 0 unit SUBCUT QIDA [facility]; Protocol Last Admin: 04/29/22 07:34 Dose: Not Given Magnesium Oxide (Magnesium Oxide 400 Mg Tablet) 800 mg PO BIDPC [facility] Last Admin: 04/29/22 08:54 Dose: 800 mg Pt Own (Amiodarone (200 Mg)) 200 mg PO DAILY [facility] Last Admin: 04/29/22 08:56 Dose: 200 mg Ondansetron HCl (Ondansetron Hcl 4 Mg/2 Ml Vial) 4 mg IVPUSH Q8H PRN PRN Reason: Nausea and Vomiting Pharmacy Consult (Consult Rx Perform Med Rec) 1 each MISCELLANE ONCE PRN PRN Reason: Consult order Sodium Chloride (0.9 % Sodium Chloride Flush 3 Ml Syringe) 3 ml IVFLUSH QSHIFT [facility] Last Admin: 04/29/22 08:56 Dose: 3 ml Spironolactone (Spironolactone 25 Mg Tablet) 25 mg PO DAILY [facility]; Protocol Last Admin: 04/29/22 08:54 Dose: 25 mg Valsartan (Valsartan 80 Mg Tablet) 80 mg PO BID [facility]; Protocol Last Admin: 04/27/22 10:37 Dose: 80 mg Home Medications Medication Instructions Recorded Confirmed Last Taken [facility]22 Unknown History Lite Meter kit) [facility] 04/22/22 Unknown History Lancets) dulaglutide 1.5 mg/0.5 mL 1.5 mg subcut WE@0900 03/12/22 04/27/22 04/24/22 History subcutaneous pen injector (Trulicity) empagliflozin 25 mg tablet 1 tab PO DAILY 03/12/22 04/27/22 04/26/22 History (Jardiance) insulin degludec 100 unit/mL (3 42 unit subcut BEDTIME 03/12/22 04/27/22 04/26/22 History mL) subcutaneous pen (Tresiba FlexTouch U-100 insulin) insulin lispro 100 unit/mL 12 unit subcut TIDAC 03/12/22 04/27/22 04/26/22 History subcutaneous pen atorvastatin 40 mg tablet 40 mg PO BEDTIME 04/14/22 04/27/22 04/26/22 History amiodarone 200 mg tablet 200 mg PO DAILY 04/22/22 04/27/22 04/26/22 History carvedilol 6.25 mg tablet 1 tab PO BID 04/27/22 04/27/22 04/23/22 History Physical Exam Vital Signs: Last Vital Signs Temp 97.4 F 04/29/22 11:35 Pulse 84 04/29/22 11:35 Resp 16 04/29/22 11:35 BP 111/70 04/29/22 11:35 Pulse Ox 94 04/29/22 11:35 O2 Del Method 04/29/22 11:35 BMI result Body Mass Index 38.9 Const General: no acute distress HEENT Head: Yes normocephalic and Yes atraumatic Neck Neck: Yes supple Resp Auscultation: diminished lung sounds Cardio Heart sounds: S1 normal heart sound present and S2 normal heart sound present GI Palpation (GI): Soft to palpation and nontender Extrem Right upper extremity: edema Results Lab Results 04/26/22 20:54 04/28/22 10:11 Lab results: Chemistry 04/26/22 04/27/22 04/28/22 20:54 06:30 10:11 Sodium 139 137 136 Potassium 4.1 3.8 4.5 Carbon Dioxide 29 24 23 BUN 38 H 34 H 43 H Creatinine 1.58 H 1.34 1.63 H Calcium 8.9 9.2 9.2 Hematology 04/26/22 20:54 WBC 6.9 Hgb 12.5 Plt Count 243 Assessment and Plan (1) LUIS FELIPE (acute kidney injury): Status: Acute (2) HFrEF (heart failure with reduced ejection fraction): Status: Acute (3) CKD (chronic kidney disease) stage 3, GFR 30-59 ml/min: Status: Acute Plan LUIS FELIPE c/w cardio renal syndrome h/o CKD baseline Scr ~ 1.3 mg/dl known HFrEF LVEF 15-20% volume status above dry weight REC continue bumetanide infusion follow kidney function and electrolytes Time Spent With Patient Time: Total time managing care of this patient today ____ minutes. Procedures Date of Service Date of Service: 04/29/22
[2022-04-29] MEDS: Insulin Lispro 100 UNIT/ML 3 ML VIAL SUBCUT ×2 (12:14→21:14)
[2022-04-29] MEDS: Bumetanide 25 MG in Container,Empty 0 ML IVCONT (12:15)
--- NOTE | 2022-04-29 12:20 | P.PNIM_ITS ---
Subjective Subjective Date of Service: 04/29/22 Interval History: chf excerebation Review of Systems still? sob and edematous Denies any chest pain or nausea vomiting or abdominal pa Physical Exam Vital Signs: Vital Signs: Last Vital Signs Temp 97.4 F 04/29/22 11:35 Pulse 84 04/29/22 11:35 Resp 16 04/29/22 11:35 BP 111/70 04/29/22 11:35 Pulse Ox 94 04/29/22 11:35 O2 Del Method 04/29/22 11:35 BMI result Body Mass Index 38.9 Appearance: Alert.? Oriented X3.?sob with exersion cvs: [id number], [id number] ,jvd equivocal. res: clear to auscultation ,no rhonchii or wheezing abd: no rebound or guarding ,nt, bs present. ext pulses present , no cyanosis , b/l leg edema 2+. neuro: axo3 , nonfoc Objective Data Active Medications Apixaban (Apixaban 5 Mg Tablet) 5 mg PO BID [facility] Last Admin: 04/29/22 08:54 Dose: 5 mg Documented By: SIXTO Atorvastatin Calcium (Atorvastatin Calcium 40 Mg Tablet) 40 mg PO BEDTIME [facility] Last Admin: 04/28/22 20:38 Dose: 40 mg Documented By: MARISOL Carvedilol (Carvedilol 6.25 Mg Tablet) 6.25 mg PO BID [facility]; Protocol Last Admin: 04/29/22 08:54 Dose: 6.25 mg Documented By: SIXTO Dextrose (Dextrose 50 % 25 Gm/50 Ml Syringe) 25 gm IVPUSH Q15M PRN; Protocol PRN Reason: per Hypoglycemia Standing Ord. Gabapentin (Gabapentin 100 Mg Capsule) 100 mg PO BID [facility] Last Admin: 04/29/22 08:54 Dose: 100 mg Documented By: SIXTO Glucose (Glucose Gel 15 Gm Gel..Gram.) 15 gm PO Q15M PRN; Protocol PRN Reason: per Hypoglycemia Standing Ord. Bumetanide 25 mg/ IV (Miscellaneous Supplies) 100 mls @ 1 mls/hr IVCONT .Q24H [facility] Last Admin: 04/29/22 12:15 Dose: 0.25 mg/hr, 1 mls/hr Documented By: SIXTO Insulin Glargine (Insulin Glargine,Hum.Rec.Anlog 100 Unit/Ml 10 Ml Vial) 29 unit SUBCUT BEDTIME [facility] Last Admin: 04/28/22 21:14 Dose: Not Given Documented By: MARISOL Non-Admin Reason: Patient Refused Insulin Human Lispro (Insulin Lispro 100 Unit/Ml 3 Ml Vial) 12 unit SUBCUT TIDAC [facility] Last Admin: 04/29/22 11:45 Dose: Not Given Documented By: SIXTO Non-Admin Reason: NPO Insulin Human Lispro (Insulin Lispro 100 Unit/Ml 3 Ml Vial) 0 unit SUBCUT QIDACHS [facility]; Protocol Last Admin: 04/29/22 12:14 Dose: 2 unit Documented By: SIXTO Magnesium Oxide (Magnesium Oxide 400 Mg Tablet) 800 mg PO BIDPC [facility] Last Admin: 04/29/22 08:54 Dose: 800 mg Documented By: SIXTO Pt Own (Amiodarone (200 Mg)) 200 mg PO DAILY [facility] Last Admin: 04/29/22 08:56 Dose: 200 mg Documented By: SIXTO Ondansetron HCl (Ondansetron Hcl 4 Mg/2 Ml Vial) 4 mg IVPUSH Q8H PRN PRN Reason: Nausea and Vomiting Pharmacy Consult (Consult Rx Perform Med Rec) 1 each MISCELLANE ONCE PRN PRN Reason: Consult order Sodium Chloride (0.9 % Sodium Chloride Flush 3 Ml Syringe) 3 ml IVFLUSH QSHIFT [facility] Last Admin: 04/29/22 08:56 Dose: 3 ml Documented By: SIXTO Spironolactone (Spironolactone 25 Mg Tablet) 25 mg PO DAILY [facility]; Protocol Last Admin: 04/29/22 08:54 Dose: 25 mg Documented By: SIXTO Valsartan (Valsartan 80 Mg Tablet) 80 mg PO BID [facility]; Protocol Last Admin: 04/27/22 10:37 Dose: 80 mg Documented By: SHARON Labs 04/26/22 20:54 04/28/22 10:11 Labs: Laboratory Results - last 24 hr 04/28/22 04/28/22 04/29/22 15:29 21:12 07:21 POC Glucose 217 H 185 H 185 H 04/29/22 11:33 POC Glucose 175 H Assessment and Plan (1) Acute exacerbation of CHF (congestive heart failure): Status: Acute (2) Atrial flutter: Status: Acute (3) Obesity, Class II, BMI 35-39.9: Status: Acute (4) Hyperglycemia: Status: Acute Plan Hospital day:3 67-year-old female past medical history of CHF with reduced ejection fraction presents to the hospital with complaints of shortness of breath, as well as lower extremity swelling found to have acute CHF exacerbation 1.acute CHF exacerbation(HF with reduced Ef around 20-30%) dyspnea, lower extremity edema, orthopnea, PND, elevated BNP as well as imaging suggestive of volume overload dry weight -?unclear butlast weight heather weight on03/28 with pcp 231lbs current weight is -233 lbs [strict I&O] - 4 liter neg ,daily weights,bnp elevated 247 trendin to 219( baseline around 180's) bmp and bnp pending for today sob seems somewhat improving ,leg edema continue low-sodium diet, switched to IV bumex adjusted 0.25mg/hr yesterday , continue sprinolactone,coreg ,will start back valsartan after repeatin renal function/electrolytes today and if bloodpressure allows. cardiology eval follow up noted -continue above management . 2.history of chronic AFib/a flutter: hr [id number] - continue Eliquis and carvedilol,amiodarone. 3.diabetes controlled : fs in 170-180. dm diet continue home insulin regimen. adjusted sliding scale insulin 4.qtc prolong ? chronic improving last qtc is 490 ms keep k>4 and mag>2 moniter electrolytes -added magnesium supllements to keep mag>2 5. morbid obesity:? Encouraged to lose weight. DVT prophylaxis: Eliquis inpatient need :acute CHF exacerbation(HF with reduced Ef around 20-30%) for IV Bumex Bumex monitoring, renal function and electrolyte monitoring, tele monitor. Time Spent With Patient Time: Total time managing care of this patient today ____ minutes. Quality Stroke Does the patient have a stroke diagnosis?: No VTE Prior VTE?: No VTE Risk Level:: Medical - moderate - high VTE Device Contraindication: Treatment Not Indicated VTE Drug Contraindication: N/A - Med Ordered
[2022-04-29] MEDS: Magnesium Sulfate/D5W 1 GM/100 ML PIGGYBACK IV (13:01)
[2022-04-29 15:04] LABS: Glucose, Whole Blood 249 mg/dL (60-115)
--- NOTE | 2022-04-29 15:51 | MHC.CM.PN ---
per rounds pt to be cardioverted possible dc tomorrow
[2022-04-29] MEDS: Insulin Lispro 100 UNIT/ML 3 ML VIAL 12 UNIT SUBCUT (16:57)
[2022-04-29 20:53] LABS: Glucose, Whole Blood 167 mg/dL (60-115)
[2022-04-29] MEDS: Atorvastatin Calcium 40 MG TABLET PO (21:14)
[2022-04-29] MEDS: Insulin Glargine,Hum.rec.anlog 100 UNIT/ML 10 ML VIAL 29 UNIT SUBCUT (21:15)
[2022-04-30 03:32] VITALS: BP 105/63; PULSE 100; RESP 15; TEMP 36.9; O2SAT 93
[2022-04-30 06:00] VITALS: BMI 38.9
[2022-04-30 07:13] VITALS: BP 106/65; PULSE 89; RESP 20; TEMP 36.2; O2SAT 92
[2022-04-30 07:28] LABS: Glucose, Whole Blood 244 mg/dL (60-115)
[2022-04-30] MEDS: Magnesium Oxide 400 MG TABLET 800 MG PO ×2 (07:50→16:59)
[2022-04-30] MEDS: Apixaban 5 MG TABLET PO ×2 (07:50→22:57)
[2022-04-30] MEDS: Spironolactone 25 MG TABLET PO (07:50)
[2022-04-30] MEDS: Insulin Lispro 100 UNIT/ML 3 ML VIAL 12 UNIT SUBCUT ×2 (07:51→16:59)
[2022-04-30] MEDS: Insulin Lispro 100 UNIT/ML 3 ML VIAL SUBCUT ×3 (07:51→22:58)
[2022-04-30] MEDS: Gabapentin 100 MG CAPSULE PO ×2 (07:51→22:57)
[2022-04-30] MEDS: carvediloL 6.25 MG TABLET PO ×2 (07:52→22:57)
[2022-04-30] MEDS: 0.9 % Sodium Chloride Flush 3 ML SYRINGE IVFLUSH ×2 (07:52→22:59)
--- NOTE | 2022-04-30 07:58 | P.PNIM_ITS ---
Subjective Subjective Date of Service: 04/30/22 Interval History: chf excerebation Review of Systems not seems sob ,has edema also improving Denies any chest pain or nausea vomiting or abdominal pain Physical Exam Vital Signs: Vital Signs: Last Vital Signs Temp 97.1 F 04/30/22 07:13 Pulse 89 04/30/22 07:13 Resp 20 04/30/22 07:13 BP 106/65 04/30/22 07:13 Pulse Ox 92 04/30/22 07:13 O2 Del Method 04/30/22 07:13 BMI result Body Mass Index 38.9 Appearance: Alert.? Oriented X3.?sob with exersion cvs: rrr, [id number] ,jvd equivocal. res: clear to auscultation ,no rhonchii or wheezing abd: no rebound or guarding ,nt, bs present. ext pulses present , no cyanosis , b/l leg edema 1+. neuro: axo3 , nonfoc Objective Data Active Medications Apixaban (Apixaban 5 Mg Tablet) 5 mg PO BID [facility] Last Admin: 04/30/22 07:50 Dose: 5 mg Documented By: GLENDY Atorvastatin Calcium (Atorvastatin Calcium 40 Mg Tablet) 40 mg PO BEDTIME [facility] Last Admin: 04/29/22 21:14 Dose: 40 mg Documented By: ELLIE Carvedilol (Carvedilol 6.25 Mg Tablet) 6.25 mg PO BID [facility]; Protocol Last Admin: 04/30/22 07:52 Dose: 6.25 mg Documented By: GLENDY Dextrose (Dextrose 50 % 25 Gm/50 Ml Syringe) 25 gm IVPUSH Q15M PRN; Protocol PRN Reason: per Hypoglycemia Standing Ord. Gabapentin (Gabapentin 100 Mg Capsule) 100 mg PO BID [facility] Last Admin: 04/30/22 07:51 Dose: 100 mg Documented By: GLENDY Glucose (Glucose Gel 15 Gm Gel..Gram.) 15 gm PO Q15M PRN; Protocol PRN Reason: per Hypoglycemia Standing Ord. Bumetanide 25 mg/ IV (Miscellaneous Supplies) 100 mls @ 1 mls/hr IVCONT .Q24H [facility] Last Admin: 04/29/22 12:15 Dose: 0.25 mg/hr, 1 mls/hr Documented By: SIXTO Insulin Glargine (Insulin Glargine,Hum.Rec.Anlog 100 Unit/Ml 10 Ml Vial) 29 unit SUBCUT BEDTIME [facility] Last Admin: 04/29/22 21:15 Dose: 29 unit Documented By: ELLIE Insulin Human Lispro (Insulin Lispro 100 Unit/Ml 3 Ml Vial) 12 unit SUBCUT TIDAC [facility] Last Admin: 04/30/22 07:51 Dose: 12 unit Documented By: GLENDY Insulin Human Lispro (Insulin Lispro 100 Unit/Ml 3 Ml Vial) 0 unit SUBCUT QIDACHS [facility]; Protocol Last Admin: 04/30/22 07:51 Dose: 6 unit Documented By: GLENDY Magnesium Oxide (Magnesium Oxide 400 Mg Tablet) 800 mg PO BIDPC [facility] Last Admin: 04/30/22 07:50 Dose: 800 mg Documented By: GLENDY Pt Own (Amiodarone (200 Mg)) 200 mg PO DAILY [facility] Last Admin: 04/30/22 07:51 Dose: 200 mg Documented By: GLENDY Ondansetron HCl (Ondansetron Hcl 4 Mg/2 Ml Vial) 4 mg IVPUSH Q8H PRN PRN Reason: Nausea and Vomiting Pharmacy Consult (Consult Rx Perform Med Rec) 1 each MISCELLANE ONCE PRN PRN Reason: Consult order Sodium Chloride (0.9 % Sodium Chloride Flush 3 Ml Syringe) 3 ml IVFLUSH QSHIFT [facility] Last Admin: 04/30/22 07:52 Dose: 3 ml Documented By: GLENDY Spironolactone (Spironolactone 25 Mg Tablet) 25 mg PO DAILY [facility]; Protocol Last Admin: 04/30/22 07:50 Dose: 25 mg Documented By: GLENDY Valsartan (Valsartan 80 Mg Tablet) 80 mg PO BID [facility]; Protocol Last Admin: 04/27/22 10:37 Dose: 80 mg Documented By: ROSA-CADIJ Labs 04/26/22 20:54 04/28/22 10:11 Labs: Laboratory Results - last 24 hr 04/29/22 04/29/22 04/29/22 11:33 15:01 20:45 POC Glucose 175 H 249 H 167 H 04/30/22 07:12 POC Glucose 244 H Assessment and Plan (1) Acute exacerbation of CHF (congestive heart failure): Status: Acute (2) Atrial flutter: Status: Acute (3) Obesity, Class II, BMI 35-39.9: Status: Acute (4) Hyperglycemia: Status: Acute (5) CKD (chronic kidney disease) stage 3, GFR 30-59 ml/min: Status: Acute (6) HFrEF (heart failure with reduced ejection fraction): Status: Acute (7) LUIS FELIPE (acute kidney injury): Status: Acute (8) Prolonged QT interval: Status: Acute Plan Hospital day:3 67-year-old female past medical history of CHF with reduced ejection fraction presents to the hospital with complaints of shortness of breath, as well as lower extremity swelling found to have acute CHF exacerbation 1.acute CHF exacerbation(HF with reduced Ef around 20-30%) dyspnea, lower extremity edema, orthopnea, PND, elevated BNP as well as imaging suggestive of volume overload dry weight -?unclear butlast weight heather weight on03/28 with pcp 231lbs current weight is -233 lbs [strict I&O] - 5 liter neg ,daily weights,bnp elevated 247 trendin to 214( baseline around 180's) sob seems somewhat improved ,leg edema improving continue low-sodium diet, continue sprinolactone,coreg ,will start back valsartan after repeatin renal function/electrolytes today and if bloodpressure allows. hold bumex and keep npo until cardio followup cardiology eval follow up noted -continue above management . 2.history of chronic AFib/a flutter: hr anound 100 range continue Eliquis and carvedilol,amiodarone. 3.diabetes :. dm diet continue home insulin regimen and adjusted sliding scale insulin 4.qtc prolong ? chronic improving last qtc is 490 ms keep k>4 and mag>2 moniter electrolytes - continue magnesium supllements to keep mag>2 5. morbid obesity:? Encouraged to lose weight. 6. luis felipe on ckd 3 . possible due to overdiuressis moniter renal function an elctrolytes hold bumex drip cardiology follow up DVT prophylaxis: Eliquis inpatient need :acute CHF exacerbation(HF with reduced Ef around 20-30%) for IV Bumex Bumex monitoring, renal function and electrolyte monitoring, tele monitor. Time Spent With Patient Time: Total time managing care of this patient today ____ minutes. Quality Stroke Does the patient have a stroke diagnosis?: No VTE Prior VTE?: No VTE Risk Level:: Medical - moderate - high VTE Device Contraindication: Treatment Not Indicated VTE Drug Contraindication: N/A - Med Ordered
--- NOTE | 2022-04-30 08:05 | PM.PNNEP ---
Subjective Subjective Date of Service: 04/30/22 Principal diagnosis: CHF, atrial flutter Interval history: seen and examined feels better SOB improved denies N/V/D Physical Exam Vital Signs: Vital Signs: Last Vital Signs Temp 97.1 F 04/30/22 07:13 Pulse 89 04/30/22 07:13 Resp 20 04/30/22 07:13 BP 106/65 04/30/22 07:13 Pulse Ox 92 04/30/22 07:13 O2 Del Method 04/30/22 07:13 BMI result Body Mass Index 38.9 Const: General: no acute distress HEENT: Head: Yes normocephalic and Yes atraumatic Neck: Neck: Yes supple Resp: Auscultation: diminished lung sounds Cardio: Heart sounds: S1 normal heart sound present and S2 normal heart sound present GI: Palpation (GI): Soft to palpation and nontender Extrem: Right upper extremity: edema Objective Data Labs 04/26/22 20:54 04/28/22 10:11 Labs: Laboratory Results - last 24 hr 04/29/22 04/29/22 04/29/22 11:33 15:01 20:45 POC Glucose 175 H 249 H 167 H 04/30/22 07:12 POC Glucose 244 H Procedures Date of Service Date of Service: 04/30/22 Assessment & Plan Assessment and plan (1) LUIS FELIPE (acute kidney injury): Status: Acute (2) HFrEF (heart failure with reduced ejection fraction): Status: Acute (3) CKD (chronic kidney disease) stage 3, GFR 30-59 ml/min: Status: Acute Plan LUIS FELIPE c/w cardio renal syndrome h/o CKD baseline Scr ~ 1.3 mg/dl known HFrEF LVEF 15-20% REC continue bumetanide infusion as long as tolerated by kidney function and hemodynamics If BP drops or kidney function worse would discontinue infusion follow kidney function and electrolytes Time Spent With Patient Time: Total time managing care of this patient today ____ minutes. Progress Note: Quality Stroke Does the patient have a stroke diagnosis?: No
[2022-04-30 09:00] LABS: Anion Gap 18 (12-20); Blood Urea Nitrogen 49 mg/dL (9-16); Carbon Dioxide 27 mmol/L (22-29); Chloride 93 mmol/L (96-108); Estimated Glomerular Filt Rate 28; Glucose Random 212 mg/dL (60-115); Potassium 4.2 mmol/L (3.3-5.1); Sodium 134 mmol/L (135-145)
[2022-04-30 09:02] LABS: B Type Natriuretic Peptide 214 pg/mL (<100)
[2022-04-30 11:09] VITALS: BP 99/59; PULSE 101; RESP 20; TEMP 36.2; O2SAT 95
--- NOTE | 2022-04-30 11:15 | P.PNCA_ITS ---
Subjective Subjective Date of Service: 04/30/22 Principal diagnosis: CHF, atrial flutter Interval history: Seem at 1000. Today she reports breathing and leg swelling are improved. She does not feel heart palpitations. No chest discomfort. Has been up to bathroom and reports steadiness. Slept generally well. NPO this am for probable cardioversion later today. She is agreeable to this plan. Tele showing atrial flutter/ atrial tach, rates 90-100. Bumex drip off. Review of Systems Review of Systems as above Yes all other systems are reviewed and are negative Physical Exam Vital Signs: Last Vital Signs Temp 97.1 F 04/30/22 11:09 Pulse 101 H 04/30/22 11:09 Resp 20 04/30/22 11:09 BP 99/59 L 04/30/22 11:09 Pulse Ox 95 04/30/22 11:09 O2 Del Method 04/30/22 11:09 BMI result Body Mass Index 38.9 Const General: cooperative, healthy appearing, comfortable and no acute distress Orientation/consciousness: patient oriented x3 Neck Neck: Yes normal visual inspection and Yes no JVD Resp Effort & Inspection: normal respiratory effort Auscultation: clear to auscultation bilaterally, rales (Faint in bases), no rhonchi and no wheezes Cardio Rate: regular rate Heart sounds: S1 normal heart sound present, S2 normal heart sound present, no gallops, no murmurs and no rubs GI Inspection: Yes normal to inspection Neuro General: patient oriented x3 Extrem Other: Mild puffiness to left ankle and foot. No pitting leg edema General: Yes normal to inspection Psych Appearance: grossly normal Mental Status: mental status grossly normal Speech and movement: Normal speech and movement present Objective Labs and Meds 04/26/22 20:54 04/30/22 08:26 Lab results: Laboratory Results - last 24 hr 04/29/22 04/29/22 04/29/22 11:33 15:01 20:45 Sodium Potassium Chloride Carbon Dioxide Anion Gap BUN Creatinine Estim Creat Clear Calc Estimated GFR POC Glucose 175 H 249 H 167 H Random Glucose Calcium B-Natriuretic Peptide 04/30/22 04/30/22 04/30/22 07:12 08:26 08:26 Sodium 134 L Potassium 4.2 Chloride 93 L Carbon Dioxide 27 Anion Gap 18 BUN 49 H Creatinine 1.81 H Estim Creat Clear Calc 37.0 Estimated GFR 28 POC Glucose 244 H Random Glucose 212 H Calcium 9.0 B-Natriuretic Peptide 214 H Progress Note: A&P Assessment and plan (1) HFrEF (heart failure with reduced ejection fraction): Status: Acute Assessment and Plan: Recurrent admit for HFrEF. Has had issues with persistent AF which contributes to her exacerbations. 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 She was cardioverted last admit then had recurrent Aflutter/ atrial tach. Her Amiodarone load was then completed with outpt plan for repeat cardioversion, then she had the increased sob and edema prompting this admit. Now being diuresed with IV Bumex drip. Fluid balance neg 5 liters. Cr elevated at 1.81 this am, high for her. Bumex stopped. She reports overall she is feeling better. On exam she has minimal left ankle/foot edema and few rales in bases. No JVD noted. Will continue Aldactone, Carvedilol. Eventually start Entresto and Jardiance. Keep off Bumex for now and plan start of Torsemide, likely tomorrow. Continue I+O monitoring. Close monitoring of electroyte and kidney function. We will follow (2) Atrial flutter: Status: Acute Assessment and Plan: Tele showing Atrial flutter/ atrial tach, rate 90-100. No palpitations. On maintenance dose of amiodarone 200mg daily. Full load completed. On Eliquis for anticoagulation. She denies any missed doses in recent weeks. NPO this am. Anticipating cardioversion with Dr Storey later today. She is aware of this plan and agreeable to proceed. (3) CKD (chronic kidney disease) stage 3, GFR 30-59 ml/min: Status: Acute Assessment and Plan: Cr 1.81 today - diuretic held. follow closely Time Spent With Patient Time: Total time managing care of this patient today __20__ minutes. Progress Note: Quality Stroke Does the patient have a stroke diagnosis?: No Procedures Date of Service Date of Service: 04/30/22
[2022-04-30 11:19] LABS: Glucose, Whole Blood 128 mg/dL (60-115)
[2022-04-30 11:45] LABS: Magnesium 2.4 mg/dL (1.6-2.6)
[2022-04-30 15:43] VITALS: BP 111/59; PULSE 98; RESP 15; TEMP 36.1; O2SAT 93
[2022-04-30 16:40] LABS: Glucose, Whole Blood 245 mg/dL (60-115)
[2022-04-30] MEDS: Torsemide 20 MG TABLET 40 MG PO (17:35)
[2022-04-30 19:48] VITALS: BP 111/73; PULSE 100; RESP 16; TEMP 36.2; O2SAT 94
[2022-04-30 20:45] LABS: Glucose, Whole Blood 310 mg/dL (60-115)
[2022-04-30] MEDS: Insulin Glargine,Hum.rec.anlog 100 UNIT/ML 10 ML VIAL 29 UNIT SUBCUT (22:57)
[2022-04-30] MEDS: Atorvastatin Calcium 40 MG TABLET PO (22:57)
[2022-04-30 23:25] VITALS: BP 120/78; PULSE 93; RESP 20; TEMP 36.3; O2SAT 97
[2022-05-01] VITALS (12 sets, daily range): BP systolic 88–115; BP diastolic 43–70; PULSE 64–100; RESP 16–26; TEMP 36.3–37.1; O2SAT 95–97; BMI 38.9
--- NOTE | 2022-05-01 | ECG_ITS ---
Test Reason : s/p cardioversion Blood Pressure : / mmHG Vent. Rate : 066 BPM Atrial Rate : 066 BPM P-R Int : 210 ms QRS Dur : 132 ms QT Int : 480 ms P-R-T Axes : 061 -31 111 degrees QTc Int : 503 ms Sinus rhythm with marked sinus arrhythmia with 1st degree A-V block Left axis deviation Non-specific intra-ventricular conduction block Minimal voltage criteria for LVH, may be normal variant ( Chris product ) Cannot rule out Anterior infarct (cited on or before 27-APR-2022) Abnormal ECG When compared with ECG of 27-APR-2022 10:07, Sinus rhythm has replaced Ectopic atrial rhythm Vent. rate has decreased BY 40 BPM Referred By: Cesar Stoery Electronically Signed By:Cesar Storey
[2022-05-01 06:57] LABS: Anion Gap 15 (12-20); Blood Urea Nitrogen 53 mg/dL (9-16); Calcium 8.8 mg/dL (8.4-10.2); Carbon Dioxide 29 mmol/L (22-29); Chloride 97 mmol/L (96-108); Creatinine Clr Calc Pharmacy 36.6; Estimated Glomerular Filt Rate 28; Glucose Random 198 mg/dL (60-115); Magnesium 2.2 mg/dL (1.6-2.6); Potassium 3.8 mmol/L (3.3-5.1); Sodium 137 mmol/L (135-145)
[2022-05-01 07:50] LABS: Glucose, Whole Blood 190 mg/dL (60-115)
[2022-05-01] MEDS: 0.9 % Sodium Chloride Flush 3 ML SYRINGE IVFLUSH ×2 (08:56→17:22)
[2022-05-01] MEDS: Apixaban 5 MG TABLET PO ×2 (08:56→19:59)
[2022-05-01] MEDS: Spironolactone 25 MG TABLET PO (08:57)
[2022-05-01] MEDS: Magnesium Oxide 400 MG TABLET 800 MG PO ×2 (08:57→17:22)
[2022-05-01] MEDS: Torsemide 20 MG TABLET 40 MG PO (08:57)
[2022-05-01] MEDS: Insulin Lispro 100 UNIT/ML 3 ML VIAL SUBCUT ×2 (08:58→20:11)
[2022-05-01] MEDS: Gabapentin 100 MG CAPSULE PO ×2 (08:58→19:59)
[2022-05-01] MEDS: carvediloL 6.25 MG TABLET PO (08:58)
[2022-05-01] MEDS: Insulin Lispro 100 UNIT/ML 3 ML VIAL 12 UNIT SUBCUT ×2 (08:58→17:21)
[2022-05-01] MEDS: Valsartan 40 MG TABLET PO (09:11)
--- NOTE | 2022-05-01 10:40 | HO.ANESPROP2 ---
[facility] Active Problems Active Problems: All Active Problems (Updated 04/30/22 @ 11:20 by Facundo Fajardo MD) w Prolonged QT interval (Acute) CKD (chronic kidney disease) stage 3, GFR 30-59 ml/min (Acute) HFrEF (heart failure with reduced ejection fraction) (Acute) LUIS FELIPE (acute kidney injury) (Acute) Hyperglycemia (Acute) Acute exacerbation of CHF (congestive heart failure) (Acute) Congestive heart failure (Acute) Atrial flutter (Acute) Obesity, Class II, BMI 35-39.9 (Acute) Paroxysmal atrial fibrillation (Acute) Colonoscopy refused (Acute) Abnormal nuclear cardiac imaging test (Acute) Incomplete left bundle branch block (LBBB) (Acute) Endometrial adenocarcinoma (Acute) Type 2 diabetes mellitus with hyperglycemia, with long-term current use of insulin (Acute) Obesity due to excess calories (Acute) Vitamin D deficiency (Acute) Mixed dyslipidemia (Acute) Papanicolaou smear declined (Acute) Mammogram declined (Acute) Osteoarthritis, knee (Acute) Diabetic neuropathy (Acute) Mild intermittent asthma (Acute) Hiatal hernia (Acute) Essential hypertension (Acute) Past Medical History Medical History Cardiomyopathy Colonoscopy refused Coronary arteriosclerosis Diabetes type 2, uncontrolled Diabetic neuropathy Endometrial adenocarcinoma Essential hypertension Hiatal hernia History of basal cell carcinoma History of cardioversion History of cholelithiasis History of esophagitis Incomplete left bundle branch block (LBBB) Irritable bowel syndrome (IBS) Ischemic cardiomyopathy Mammogram declined Mild intermittent asthma Mixed dyslipidemia Morbid obesity Obesity due to excess calories Osteoarthritis, knee Osteonecrosis of right hip Papanicolaou smear declined Paroxysmal atrial fibrillation Persistent atrial fibrillation Post-menopausal bleeding Type 2 diabetes mellitus with hyperglycemia, with long-term current use of insulin Type 2 diabetes mellitus with hyperglycemia, without long-term current use of insulin Uterine fibroid Vitamin D deficiency Family History Family History Father Myocardial infarction Cardiovascular disease Mother Diabetes mellitus Essential hypertension Daughter Anxiety disorder Mental health disorder Son Mental health disorder Family history of problems with anesthesia: No Surgical History Surgical History H/O hernia repair History of cholecystectomy History of hip surgery History of hysterectomy Hx of section Hx of colonoscopy History of Problems with Anesthesia: No Social History Social History Household Members: Spouse and Children Housing: House Are you a primary palliative care physician to a significant other at home: No Do you presently have visiting nurse or other home services: No Alcohol intake: never Patient Tobacco Use Status: Never used Tobacco e-Cigarette/Vaping Use: Never Used Second Hand Smoke Exposure: No Advance Directives Date on File: 04/08/22 service: No Current occupational status: retired Cognitive needs: No Hearing needs: No Vision needs: Yes Meds Allergies Allergy/AdvReac Type Severity Reaction Status Date / Time red dye [Red Dye] Allergy Severe HIVES,THROAT Verified 04/26/22 19:56 CLOSES FROM RED FOOD DYE Active Medications: Current Medications Apixaban (Apixaban 5 Mg Tablet) 5 mg PO BID [facility] Last Admin: 05/01/22 08:56 Dose: 5 mg Atorvastatin Calcium (Atorvastatin Calcium 40 Mg Tablet) 40 mg PO BEDTIME [facility] Last Admin: 04/30/22 22:57 Dose: 40 mg Carvedilol (Carvedilol 6.25 Mg Tablet) 6.25 mg PO BID [facility]; Protocol Last Admin: 05/01/22 08:58 Dose: 6.25 mg Dextrose (Dextrose 50 % 25 Gm/50 Ml Syringe) 25 gm IVPUSH Q15M PRN; Protocol PRN Reason: per Hypoglycemia Standing Ord. Gabapentin (Gabapentin 100 Mg Capsule) 100 mg PO BID [facility] Last Admin: 05/01/22 08:58 Dose: 100 mg Glucose (Glucose Gel 15 Gm Gel..Gram.) 15 gm PO Q15M PRN; Protocol PRN Reason: per Hypoglycemia Standing Ord. Insulin Glargine (Insulin Glargine,Hum.Rec.Anlog 100 Unit/Ml 10 Ml Vial) 29 unit SUBCUT BEDTIME [facility] Last Admin: 04/30/22 22:57 Dose: 29 unit Insulin Human Lispro (Insulin Lispro 100 Unit/Ml 3 Ml Vial) 12 unit SUBCUT TIDAC [facility] Last Admin: 05/01/22 08:58 Dose: 12 unit Insulin Human Lispro (Insulin Lispro 100 Unit/Ml 3 Ml Vial) 0 unit SUBCUT QIDACHS [facility]; Protocol Last Admin: 05/01/22 08:58 Dose: 2 unit Magnesium Oxide ([facility]esium [facility] 400 Mg Tablet) [facility] Last Admin: 05/01/22 08:57 Dose: 800 mg Pt Own (Amiodarone (200 Mg)) 200 mg PO DAILY [facility] Last Admin: 05/01/22 08:56 Dose: 200 mg Ondansetron HCl (Ondansetron Hcl 4 Mg/2 Ml Vial) 4 mg IVPUSH Q8H PRN PRN Reason: Nausea and Vomiting Pharmacy Consult (Consult Rx Perform Med Rec) 1 each MISCELLANE ONCE PRN PRN Reason: Consult order Sodium Chloride (0.9 % Sodium Chloride Flush 3 Ml Syringe) 3 ml IVFLUSH QSHIFT [facility] Last Admin: 05/01/22 08:56 Dose: 3 ml Spironolactone (Spironolactone 25 Mg Tablet) 25 mg PO DAILY [facility]; Protocol Last Admin: 05/01/22 08:57 Dose: 25 mg Torsemide (Torsemide 20 Mg Tablet) 40 mg PO BID [facility]; Protocol Last Admin: 05/01/22 08:57 Dose: 40 mg Valsartan (Valsartan 40 Mg Tablet) 40 mg PO BID [facility]; Protocol Last Admin: 05/01/22 09:11 Dose: 40 mg Home Medications Medication Instructions Recorded Confirmed Last Taken Type blood-glucose meter (FreeStyle 10/25/21 04/22/22 Unknown History Lite Meter kit) lancets 28 gauge (FreeStyle 10/25/21 04/22/22 Unknown History Lancets) dulaglutide 1.5 mg/0.5 mL 1.5 mg subcut WE@0900 03/12/22 04/27/22 04/24/22 History subcutaneous pen injector (Trulicity) empagliflozin 25 mg tablet 1 tab PO DAILY 03/12/22 04/27/22 04/26/22 History (Jardiance) insulin degludec 100 unit/mL (3 42 unit subcut BEDTIME 03/12/22 04/27/22 04/26/22 History mL) subcutaneous pen (Tresiba FlexTouch U-100 insulin) insulin lispro 100 unit/mL 12 unit subcut TIDAC 03/12/22 04/27/22 04/26/22 History subcutaneous pen atorvastatin 40 mg tablet 40 mg PO BEDTIME 04/14/22 04/27/22 04/26/22 History amiodarone 200 mg tablet 200 mg PO DAILY 04/22/22 04/27/22 04/26/22 History carvedilol 6.25 mg tablet 1 tab PO BID 04/27/22 04/27/22 04/23/22 History Exam Exam Date and Time: May 01, 2022 1040 Height,Weight and Vital Signs: Height 5 ft 5 in Weight 106.2 kg Last Vital Signs Temp 97.3 F 05/01/22 07:41 Pulse 82 05/01/22 07:41 Resp 18 05/01/22 07:41 BP 115/70 05/01/22 07:41 Pulse Ox 96 05/01/22 07:41 O2 Del Method 05/01/22 07:41 Pertinent Lab Results Pertinent Lab Results: Laboratory Tests 04/26/22 04/26/22 04/26/22 20:54 20:54 20:54 WBC 6.9 RBC 4.17 L Hgb 12.5 Hct 38.4 MCV 92.1 MCH 30.0 MCHC 32.6 RDW 14.8 Plt Count 243 MPV 9.5 Immature Gran % (Auto) 0.3 Neut % (Auto) 61.1 Lymph % (Auto) 27.0 [place] % (Auto) 3.9 Eos % (Auto) 6.7 H Baso % (Auto) 1.0 Lymph # (Auto) 1.9 [place] # (Auto) 0.3 Eos # (Auto) 0.5 H Baso # (Auto) 0.1 Abs Immat Gran (auto) 0.02 Absolute Neuts (auto) 4.2 Absolute Nucleated RBC 0.000 Nucleated RBC % (auto) 0.0 PT 13.3 H INR 1.2 H Sodium 139 Potassium 4.1 Chloride 96 Carbon Dioxide 29 Anion Gap 18 BUN 38 H Creatinine 1.58 H Estim Creat Clear Calc 42.1 Estimated GFR 33 POC Glucose Random Glucose 260 H Calcium 8.9 Magnesium 1.7 Total Bilirubin 1.0 AST 8 ALT 9 Alkaline Phosphatase 70 Troponin I High Sens B-Natriuretic Peptide Total Protein 6.6 Albumin 3.8 Influenza Type A (PCR) Influenza Type B (PCR) RSV RNA Qual (PCR) SARS-CoV-2 RNA (RT-PCR) 04/26/22 04/26/22 04/26/22 20:54 20:54 20:54 WBC RBC Hgb Hct MCV MCH MCHC RDW Plt Count MPV Immature Gran % (Auto) Neut % (Auto) Lymph % (Auto) [place] % (Auto) Eos % (Auto) Baso % (Auto) Lymph # (Auto) [place] # (Auto) Eos # (Auto) Baso # (Auto) Abs Immat Gran (auto) Absolute Neuts (auto) Absolute Nucleated RBC Nucleated RBC % (auto) PT INR Sodium Potassium Chloride Carbon Dioxide Anion Gap BUN Creatinine Estim Creat Clear Calc Estimated GFR POC Glucose Random Glucose Calcium Magnesium Total Bilirubin AST ALT Alkaline Phosphatase Troponin I High Sens 19.2 H B-Natriuretic Peptide 247 H Total Protein Albumin Influenza Type A (PCR) NEGATIVE Influenza Type B (PCR) NEGATIVE RSV RNA Qual (PCR) NEGATIVE SARS-CoV-2 RNA (RT-PCR) NEGATIVE 04/27/22 04/27/22 04/27/22 06:30 06:30 07:33 WBC RBC Hgb Hct MCV MCH MCHC RDW Plt Count MPV Immature Gran % (Auto) Neut % (Auto) Lymph % (Auto) [place] % (Auto) Eos % (Auto) Baso % (Auto) Lymph # (Auto) [place] # (Auto) Eos # (Auto) Baso # (Auto) Abs Immat Gran (auto) Absolute Neuts (auto) Absolute Nucleated RBC Nucleated RBC % (auto) PT INR Sodium 137 Potassium 3.8 Chloride 97 Carbon Dioxide 24 Anion Gap 20 BUN 34 H Creatinine 1.34 Estim Creat Clear Calc 49.6 Estimated GFR 40 POC Glucose 211 H Random Glucose 216 H Calcium 9.2 Magnesium Total Bilirubin 1.5 H AST 11 ALT 10 Alkaline Phosphatase 74 Troponin I High Sens 21.8 H B-Natriuretic Peptide Total Protein 7.1 Albumin 3.9 Influenza Type A (PCR) Influenza Type B (PCR) RSV RNA Qual (PCR) SARS-CoV-2 RNA (RT-PCR) 04/27/22 04/27/22 04/27/22 12:06 17:23 19:41 WBC RBC Hgb Hct MCV MCH MCHC RDW Plt Count MPV Immature Gran % (Auto) Neut % (Auto) Lymph % (Auto) [place] % (Auto) Eos % (Auto) Baso % (Auto) Lymph # (Auto) [place] # (Auto) Eos # (Auto) Baso # (Auto) Abs Immat Gran (auto) Absolute Neuts (auto) Absolute Nucleated RBC Nucleated RBC % (auto) PT INR Sodium Potassium Chloride Carbon Dioxide Anion Gap BUN Creatinine Estim Creat Clear Calc Estimated GFR POC Glucose 195 H 187 H 269 H Random Glucose Calcium Magnesium Total Bilirubin AST ALT Alkaline Phosphatase Troponin I High Sens B-Natriuretic Peptide Total Protein Albumin Influenza Type A (PCR) Influenza Type B (PCR) RSV RNA Qual (PCR) SARS-CoV-2 RNA (RT-PCR) 04/28/22 04/28/22 04/28/22 07:47 10:11 10:11 WBC RBC Hgb Hct MCV MCH MCHC RDW Plt Count MPV Immature Gran % (Auto) Neut % (Auto) Lymph % (Auto) [place] % (Auto) Eos % (Auto) Baso % (Auto) Lymph # (Auto) [place] # (Auto) Eos # (Auto) Baso # (Auto) Abs Immat Gran (auto) Absolute Neuts (auto) Absolute Nucleated RBC Nucleated RBC % (auto) PT INR Sodium 136 Potassium 4.5 Chloride 96 Carbon Dioxide 23 Anion Gap 22 H BUN 43 H Creatinine 1.63 H Estim Creat Clear Calc 41.0 Estimated GFR 32 POC Glucose 229 H Random Glucose 186 H Calcium 9.2 Magnesium 1.8 Total Bilirubin AST ALT Alkaline Phosphatase Troponin I High Sens B-Natriuretic Peptide 219 H Total Protein Albumin Influenza Type A (PCR) Influenza Type B (PCR) RSV RNA Qual (PCR) SARS-CoV-2 RNA (RT-PCR) 04/28/22 04/28/22 04/28/22 10:51 15:29 21:12 WBC RBC Hgb Hct MCV MCH MCHC RDW Plt Count MPV Immature Gran % (Auto) Neut % (Auto) Lymph % (Auto) [place] % (Auto) Eos % (Auto) Baso % (Auto) Lymph # (Auto) [place] # (Auto) Eos # (Auto) Baso # (Auto) Abs Immat Gran (auto) Absolute Neuts (auto) Absolute Nucleated RBC Nucleated RBC % (auto) PT INR Sodium Potassium Chloride Carbon Dioxide Anion Gap BUN Creatinine Estim Creat Clear Calc Estimated GFR POC Glucose 174 H 217 H 185 H Random Glucose Calcium Magnesium Total Bilirubin AST ALT Alkaline Phosphatase Troponin I High Sens B-Natriuretic Peptide Total Protein Albumin Influenza Type A (PCR) Influenza Type B (PCR) RSV RNA Qual (PCR) SARS-CoV-2 RNA (RT-PCR) 04/29/22 04/29/22 04/29/22 07:21 11:33 15:01 WBC RBC Hgb Hct MCV MCH MCHC RDW Plt Count MPV Immature Gran % (Auto) Neut % (Auto) Lymph % (Auto) [place] % (Auto) Eos % (Auto) Baso % (Auto) Lymph # (Auto) [place] # (Auto) Eos # (Auto) Baso # (Auto) Abs Immat Gran (auto) Absolute Neuts (auto) Absolute Nucleated RBC Nucleated RBC % (auto) PT INR Sodium Potassium Chloride Carbon Dioxide Anion Gap BUN Creatinine Estim Creat Clear Calc Estimated GFR POC Glucose 185 H 175 H 249 H Random Glucose Calcium Magnesium Total Bilirubin AST ALT Alkaline Phosphatase Troponin I High Sens B-Natriuretic Peptide Total Protein Albumin Influenza Type A (PCR) Influenza Type B (PCR) RSV RNA Qual (PCR) SARS-CoV-2 RNA (RT-PCR) 04/29/22 04/30/22 04/30/22 20:45 07:12 08:26 WBC RBC Hgb Hct MCV MCH MCHC RDW Plt Count MPV Immature Gran % (Auto) Neut % (Auto) Lymph % (Auto) [place] % (Auto) Eos % (Auto) Baso % (Auto) Lymph # (Auto) [place] # (Auto) Eos # (Auto) Baso # (Auto) Abs Immat Gran (auto) Absolute Neuts (auto) Absolute Nucleated RBC Nucleated RBC % (auto) PT INR Sodium 134 L Potassium 4.2 Chloride 93 L Carbon Dioxide 27 Anion Gap 18 BUN 49 H Creatinine 1.81 H Estim Creat Clear Calc 37.0 Estimated GFR 28 POC Glucose 167 H 244 H Random Glucose 212 H Calcium 9.0 Magnesium 2.4 Total Bilirubin AST ALT Alkaline Phosphatase Troponin I High Sens B-Natriuretic Peptide Total Protein Albumin Influenza Type A (PCR) Influenza Type B (PCR) RSV RNA Qual (PCR) SARS-CoV-2 RNA (RT-PCR) 04/30/22 04/30/22 04/30/22 08:26 11:12 16:30 WBC RBC Hgb Hct MCV MCH MCHC RDW Plt Count MPV Immature Gran % (Auto) Neut % (Auto) Lymph % (Auto) [place] % (Auto) Eos % (Auto) Baso % (Auto) Lymph # (Auto) [place] # (Auto) Eos # (Auto) Baso # (Auto) Abs Immat Gran (auto) Absolute Neuts (auto) Absolute Nucleated RBC Nucleated RBC % (auto) PT INR Sodium Potassium Chloride Carbon Dioxide Anion Gap BUN Creatinine Estim Creat Clear Calc Estimated GFR POC Glucose 128 H 245 H Random Glucose Calcium Magnesium Total Bilirubin AST ALT Alkaline Phosphatase Troponin I High Sens B-Natriuretic Peptide 214 H Total Protein Albumin Influenza Type A (PCR) Influenza Type B (PCR) RSV RNA Qual (PCR) SARS-CoV-2 RNA (RT-PCR) 04/30/22 05/01/22 05/01/22 20:39 06:16 07:39 WBC RBC Hgb Hct MCV MCH MCHC RDW Plt Count MPV Immature Gran % (Auto) Neut % (Auto) Lymph % (Auto) [place] % (Auto) Eos % (Auto) Baso % (Auto) Lymph # (Auto) [place] # (Auto) Eos # (Auto) Baso # (Auto) Abs Immat Gran (auto) Absolute Neuts (auto) Absolute Nucleated RBC Nucleated RBC % (auto) PT INR Sodium 137 Potassium 3.8 Chloride 97 Carbon Dioxide 29 Anion Gap 15 BUN 53 H Creatinine 1.83 H Estim Creat Clear Calc 36.6 Estimated GFR 28 POC Glucose 310 H 190 H Random Glucose 198 H Calcium 8.8 Magnesium 2.2 Total Bilirubin AST ALT Alkaline Phosphatase Troponin I High Sens B-Natriuretic Peptide Total Protein Albumin Influenza Type A (PCR) Influenza Type B (PCR) RSV RNA Qual (PCR) SARS-CoV-2 RNA (RT-PCR) Airway Mallampati Class: III TM Dist: >3cm Neck ROM: Full Loose/Missing/Broken Teeth: No Heart: irreg irregular Lungs: CTA Assessment and Plan Final Anesthetic Review Family History of Problems with Anesthesia: No History of Problems with Anesthesia: No NPO: Yes ASA Class: IV Final Preanesthetic Review: Meds/Allgs Chart Reviewed, Consent Obtained/Reviewed and Anes Risks/Benef Reviewed Patient Risk: Intermediate Procedure Risk: Intermediate Anesthetic Plan Anesthetic Plan: GA Disposition: Standard PACU
--- NOTE | 2022-05-01 11:20 | PM.PNNEP ---
Subjective Subjective Date of Service: 05/01/22 Principal diagnosis: CHF, atrial flutter Interval history: seen and examined SOB improved denies N/V/D Physical Exam Vital Signs: Vital Signs: Last Vital Signs Temp 97.3 F 05/01/22 07:41 Pulse 82 05/01/22 07:41 Resp 18 05/01/22 07:41 BP 115/70 05/01/22 07:41 Pulse Ox 96 05/01/22 07:41 O2 Del Method 05/01/22 07:41 BMI result Body Mass Index 38.9 Const: General: no acute distress HEENT: Head: Yes normocephalic and Yes atraumatic Neck: Neck: Yes supple Resp: Auscultation: diminished lung sounds Cardio: Heart sounds: S1 normal heart sound present and S2 normal heart sound present GI: Palpation (GI): Soft to palpation and nontender Extrem: Right upper extremity: edema Objective Data Labs 04/26/22 20:54 05/01/22 06:16 Labs: Laboratory Results - last 24 hr 04/30/22 04/30/22 04/30/22 08:26 16:30 20:39 Sodium Potassium Chloride Carbon Dioxide Anion Gap BUN Creatinine Estim Creat Clear Calc Estimated GFR POC Glucose 245 H 310 H Random Glucose Calcium Magnesium 2.4 05/01/22 05/01/22 06:16 07:39 Sodium 137 Potassium 3.8 Chloride 97 Carbon Dioxide 29 Anion Gap 15 BUN 53 H Creatinine 1.83 H Estim Creat Clear Calc 36.6 Estimated GFR 28 POC Glucose 190 H Random Glucose 198 H Calcium 8.8 Magnesium 2.2 Procedures Date of Service Date of Service: 05/01/22 Assessment & Plan Assessment and plan (1) LUIS FELIPE (acute kidney injury): Status: Acute (2) HFrEF (heart failure with reduced ejection fraction): Status: Acute (3) CKD (chronic kidney disease) stage 3, GFR 30-59 ml/min: Status: Acute Plan Scr stable LUIS FELIPE c/w cardio renal syndrome h/o CKD baseline Scr ~ 1.3 mg/dl known HFrEF LVEF 15-20% REC transition to oral diuretics (currently on torsemide) agree with valsartan and spironolactone monitor potassium [id number] follow kidney function and electrolytes Time Spent With Patient Time: Total time managing care of this patient today ____ minutes. Progress Note: Quality Stroke Does the patient have a stroke diagnosis?: No
[2022-05-01 11:40] LABS: Glucose, Whole Blood 124 mg/dL (60-115)
--- NOTE | 2022-05-01 12:28 | P.PNCA_ITS ---
Subjective Subjective Date of Service: 05/01/22 Principal diagnosis: CHF, atrial flutter Interval history: Seen examined at bedside. She is NPO for cardioversion today. Physical Exam Vital Signs: Last Vital Signs Temp 97.7 F 05/01/22 11:27 Pulse 100 05/01/22 11:27 Resp 18 05/01/22 11:27 BP 99/61 05/01/22 11:27 Pulse Ox 95 05/01/22 11:27 O2 Del Method 05/01/22 11:27 BMI result Body Mass Index 38.9 GENERAL APPEARANCE: in no acute distress, pleasant. NECK: no carotid bruit, mild JVD. SKIN: no suspicious lesions, warm and dry. HEART: no murmurs, regular rate and rhythm. Tachycardic. LUNGS: clear to auscultation bilaterally. ABDOMEN: soft, nontender. EXTREMITIES: mild edema. PERIPHERAL PULSES: equal. NEUROLOGIC: No gross deficits, AAO X 3 Objective Labs and Meds 04/26/22 20:54 05/01/22 06:16 Lab results: Laboratory Results - last 24 hr 04/30/22 04/30/22 05/01/22 16:30 20:39 06:16 Sodium 137 Potassium 3.8 Chloride 97 Carbon Dioxide 29 Anion Gap 15 BUN 53 H Creatinine 1.83 H Estim Creat Clear Calc 36.6 Estimated GFR 28 POC Glucose 245 H 310 H Random Glucose 198 H Calcium 8.8 Magnesium 2.2 05/01/22 05/01/22 07:39 11:29 Sodium Potassium Chloride Carbon Dioxide Anion Gap BUN Creatinine Estim Creat Clear Calc Estimated GFR POC Glucose 190 H 124 H Random Glucose Calcium Magnesium Progress Note: A&P Assessment and plan (1) HFrEF (heart failure with reduced ejection fraction): Status: Acute (2) CKD (chronic kidney disease) stage 3, GFR 30-59 ml/min: Status: Acute (3) Acute exacerbation of CHF (congestive heart failure): Status: Acute Plan Pleasant 67-year-old female who is here for acute on chronic congestive heart failure. She was diagnosed for tachycardia induced cardiomyopathy recently unde rwent cardioversion for atrial fibrillation. Before discharge she developed atrial fibrillation again and was sent home on amiodarone. She subsequently came back and underwent cardioversion which broke atrial fibrillation but she developed 2-1 atrial flutter/atrial tachycardia. At this stage because she was volume overloaded we decided not to cardiovert her and load her with amiodarone and optimize her. Unfortunately she did not respond well to furosemide orally as well as Bumex. She could not take metolazone because she has red dye allergy and metolazone contains that. Due to ongoing volume overload and shortness of breath she got readmitted. She was on Bumex drip and has been transitioned to torsemide p.o. at this stage. She is on 25 mg of spironolactone as well as valsartan has been reintroduced today. Our plan is cardioversion today. I will observe for till tomorrow on p.o. torsemide to make sure that she continues to diurese because clearly she did not absorb Bumex and furosemide well. Thank you for allowing me to participate in the care of your patient. Please feel free to contact me if you have any questions. Time Spent With Patient Time: Total time managing care of this patient today ____ minutes. Progress Note: Quality Stroke Does the patient have a stroke diagnosis?: No Procedures Date of Service Date of Service: 05/01/22
--- NOTE | 2022-05-01 12:42 | P.PNIM_ITS ---
Subjective Subjective Date of Service: 05/01/22 Interval History: chf excerebation,afib Review of Systems ventricular rate fluctuating,not seems sob ,has edema also improving Denies any chest pain or nausea vomiting or abdominal pain Physical Exam Vital Signs: Vital Signs: Last Vital Signs Temp 97.7 F 05/01/22 11:27 Pulse 100 05/01/22 11:27 Resp 18 05/01/22 11:27 BP 99/61 05/01/22 11:27 Pulse Ox 95 05/01/22 11:27 O2 Del Method 05/01/22 11:27 BMI result Body Mass Index 38.9 Appearance: Alert.? Oriented X3.?sob with exersion cvs: rrr, [id number] ,jvd equivocal. res: clear to auscultation ,no rhonchii or wheezing abd: no rebound or guarding ,nt, bs present. ext pulses present , no cyanosis , b/l leg edema 1+. neuro: axo3 , nonfoc Objective Data Active Medications Apixaban (Apixaban 5 Mg Tablet) 5 mg PO BID [facility] Last Admin: 05/01/22 08:56 Dose: 5 mg Documented By: MARIO Atorvastatin Calcium (Atorvastatin Calcium 40 Mg Tablet) 40 mg PO BEDTIME [facility] Last Admin: 04/30/22 22:57 Dose: 40 mg Documented By: BRIAN Carvedilol (Carvedilol 6.25 Mg Tablet) 6.25 mg PO BID [facility]; Protocol Last Admin: 05/01/22 08:58 Dose: 6.25 mg Documented By: MARIO Dextrose (Dextrose 50 % 25 Gm/50 Ml Syringe) 25 gm IVPUSH Q15M PRN; Protocol PRN Reason: per Hypoglycemia Standing Ord. Gabapentin (Gabapentin 100 Mg Capsule) 100 mg PO BID [facility] Last Admin: 05/01/22 08:58 Dose: 100 mg Documented By: MARIO Glucose (Glucose Gel 15 Gm Gel..Gram.) 15 gm PO Q15M PRN; Protocol PRN Reason: per Hypoglycemia Standing Ord. Insulin Glargine (Insulin Glargine,Hum.Rec.Anlog 100 Unit/Ml 10 Ml Vial) 29 unit SUBCUT BEDTIME [facility] Last Admin: 04/30/22 22:57 Dose: 29 unit Documented By: BRIAN Insulin Human Lispro (Insulin Lispro 100 Unit/Ml 3 Ml Vial) 12 unit SUBCUT TIDAC [facility] Last Admin: 05/01/22 11:34 Dose: Not Given Documented By: MARIO Non-Admin Reason: NPO Insulin Human Lispro (Insulin Lispro 100 Unit/Ml 3 Ml Vial) 0 unit SUBCUT QIDACHS [facility]; Protocol Last Admin: 05/01/22 11:34 Dose: Not Given Documented By: MARIO Non-Admin Reason: NPO Magnesium Oxide (Magnesium Oxide 400 Mg Tablet) 800 mg PO BIDPC [facility] Last Admin: 05/01/22 08:57 Dose: 800 mg Documented By: MARIO Pt Own (Amiodarone (200 Mg)) 200 mg PO DAILY [facility] Last Admin: 05/01/22 08:56 Dose: 200 mg Documented By: MARIO Ondansetron HCl (Ondansetron Hcl 4 Mg/2 Ml Vial) 4 mg IVPUSH Q8H PRN PRN Reason: Nausea and Vomiting Pharmacy Consult (Consult Rx Perform Med Rec) 1 each MISCELLANE ONCE PRN PRN Reason: Consult order Sodium Chloride (0.9 % Sodium Chloride Flush 3 Ml Syringe) 3 ml IVFLUSH QSHIFT [facility] Last Admin: 05/01/22 08:56 Dose: 3 ml Documented By: MARIO Spironolactone (Spironolactone 25 Mg Tablet) 25 mg PO DAILY [facility]; Protocol Last Admin: 05/01/22 08:57 Dose: 25 mg Documented By: MARIO Torsemide (Torsemide 20 Mg Tablet) 40 mg PO BID [facility]; Protocol Last Admin: 05/01/22 08:57 Dose: 40 mg Documented By: MARIO Valsartan (Valsartan 40 Mg Tablet) 40 mg PO BID [facility]; Protocol Last Admin: 05/01/22 09:11 Dose: 40 mg Documented By: MARIO Labs 04/26/22 20:54 05/01/22 06:16 Labs: Laboratory Results - last 24 hr 04/30/22 04/30/22 05/01/22 16:30 20:39 06:16 Anion Gap 15 Estim Creat Clear Calc 36.6 Estimated GFR 28 POC Glucose 245 H 310 H Random Glucose 198 H Calcium 8.8 Magnesium 2.2 05/01/22 05/01/22 07:39 11:29 Anion Gap Estim Creat Clear Calc Estimated GFR POC Glucose 190 H 124 H Random Glucose Calcium Magnesium Assessment and Plan (1) Acute exacerbation of CHF (congestive heart failure): Status: Acute (2) Atrial flutter: Status: Acute (3) Obesity, Class II, BMI 35-39.9: Status: Acute (4) Hyperglycemia: Status: Acute (5) CKD (chronic kidney disease) stage 3, GFR 30-59 ml/min: Status: Acute (6) HFrEF (heart failure with reduced ejection fraction): Status: Acute (7) LUIS FELIPE (acute kidney injury): Status: Acute (8) Prolonged QT interval: Status: Acute Plan Hospital day:4 67-year-old female past medical history of CHF with reduced ejection fraction presents to the hospital with complaints of shortness of breath, as well as lower extremity swelling found to have acute CHF exacerbation 1.acute CHF exacerbation(HF with reduced Ef around 20-30%) dyspnea, lower extremity edema, orthopnea, PND, elevated BNP as well as imaging suggestive of volume overload dry weight -?unclear butlast weight heather weight on03/28 with pcp 231lbs current weight is -233 lbs [strict I&O] - 6 liter neg ,daily weights,bnp elevated 247 trendin to 214( baseline around 180's) sob seems somewhat improved ,leg edema improving continue low-sodium diet, continue sprinolactone,coreg ,valsartan. she did not respond well to iv lasix so switched to iv bumex -will transition to po torsemide . keep npo for possible cardioversionuntil cardio followup cardiology eval follow up noted -continue above management . 2.history of chronic AFib/a flutter: ventricular rate flactuatin continue Eliquis and carvedilol,amiodarone d/w cardiology patient will need cardioversion possible today. 3.diabetes : dm diet continue home insulin regimen and adjusted sliding scale insulin 4.qtc prolong ? chronic improving last qtc is 490 ms keep k>4 and mag>2 moniter electrolytes - continue magnesium supllements to keep mag>2 5. morbid obesity:? Encouraged to lose weight. 6. luis felipe on ckd 3 -? cardiorenal. possible due to overdiuressis nephrology followin-continue torcemide ,valsartan ,sprinolactone . moniter renal function an elctrolytes DVT prophylaxis: Eliquis inpatient need :acute CHF exacerbation(HF with reduced Ef around 20-30%) for IV Bumex Bumex monitoring, renal function and electrolyte monitoring, tele monitor. Time Spent With Patient Time: Total time managing care of this patient today ____ minutes. Quality Stroke Does the patient have a stroke diagnosis?: No VTE Prior VTE?: No VTE Risk Level:: Medical - moderate - high VTE Device Contraindication: Treatment Not Indicated VTE Drug Contraindication: N/A - Med Ordered
--- NOTE | 2022-05-01 14:17 | MHC.SHP ---
Pre-Procedural Eval Section A Date of Service: 05/01/22 The patient is an INPATIENT: Yes Section B Chief Complaint: Acute CHF exacerbation, atrial flutter Details of Present Illness: For cardioversion Allergies: Allergies Allergy/AdvReac Type Severity Reaction Status Date / Time red dye [Red Dye] Allergy Severe HIVES,THROAT Verified 04/26/22 19:56 CLOSES FROM RED FOOD DYE Plan Diagnosis/Plan: Unchanged I have reviewed the history and physical and performed a pertinent physical examination on my patient. No changes have occurred unless specified. Time Spent With Patient Time: Total time managing care of this patient today ____ minutes.
--- NOTE | 2022-05-01 14:36 | MHC.CM.PN ---
natalie dickerson pt to have cardio version today no dc datye at this time plan remains home no servceis
--- NOTE | 2022-05-01 14:48 | HO.CARDIVERS ---
Cardioversion Procedure Note Cardioversion Date of Procedure: 05/01/22 Ordering Provider: Cesar Storey Performing Provider: Cesar Storey Indication for Procedure: Atrial flutter, CHF Consent: Verbal and Written consent was obtained from the patient before starting. The patient was made aware of the risk of stroke, aspiration, skin burn and failure Procedure: After consent obtained, defib pads were attached and the patient was sedated by the anesthesia team. Once adequate sedation achieved, single shock of 200 J (synchronized) was delivered and the patient converted to sinus rhythm. Complications: No acute complications Recommendations: c/w amiodarone. c/w Apixaban. Continue other heart failure medications.
[2022-05-01 16:21] LABS: Glucose, Whole Blood 148 mg/dL (60-115)
[2022-05-01 19:51] LABS: Glucose, Whole Blood 190 mg/dL (60-115)
[2022-05-01] MEDS: Atorvastatin Calcium 40 MG TABLET PO (19:59)
[2022-05-01] MEDS: Insulin Glargine,Hum.rec.anlog 100 UNIT/ML 10 ML VIAL 29 UNIT SUBCUT (20:12)
[2022-05-02] VITALS (9 sets, daily range): BP systolic 106–114; BP diastolic 53–70; PULSE 73–80; RESP 16–20; TEMP 36.8–37.7; O2SAT 88–98; BMI 38.8
[2022-05-02 06:41] LABS: Anion Gap 16 (12-20); Blood Urea Nitrogen 59 mg/dL (9-16); Calcium 8.9 mg/dL (8.4-10.2); Carbon Dioxide 25 mmol/L (22-29); Chloride 97 mmol/L (96-108); Creatinine Clr Calc Pharmacy 36.3; Estimated Glomerular Filt Rate 27; Glucose Random 252 mg/dL (60-115); Potassium 4.2 mmol/L (3.3-5.1); Sodium 134 mmol/L (135-145)
[2022-05-02 07:11] LABS: Glucose, Whole Blood 257 mg/dL (60-115)
[2022-05-02] MEDS: Insulin Lispro 100 UNIT/ML 3 ML VIAL 12 UNIT SUBCUT ×3 (08:09→17:07)
[2022-05-02] MEDS: Insulin Lispro 100 UNIT/ML 3 ML VIAL SUBCUT ×3 (08:10→17:07)
[2022-05-02] MEDS: Apixaban 5 MG TABLET PO ×2 (08:10→20:52)
[2022-05-02] MEDS: Magnesium Oxide 400 MG TABLET 800 MG PO ×2 (08:11→17:07)
[2022-05-02] MEDS: Gabapentin 100 MG CAPSULE PO ×2 (08:11→20:52)
[2022-05-02] MEDS: 0.9 % Sodium Chloride Flush 3 ML SYRINGE IVFLUSH ×3 (08:12→20:53)
[2022-05-02] MEDS: Torsemide 20 MG TABLET 40 MG PO ×2 (09:45→20:52)
[2022-05-02] MEDS: carvediloL 3.125 MG TABLET PO ×2 (09:45→20:52)
--- NOTE | 2022-05-02 11:10 | PM.PNNEP ---
Subjective Subjective Date of Service: 05/02/22 Principal diagnosis: CHF, atrial flutter Interval history: seen and examined comfortable no complaints Physical Exam Vital Signs: Vital Signs: Last Vital Signs Temp 98.7 F 05/02/22 07:10 Pulse 77 05/02/22 07:10 Resp 16 05/02/22 07:10 BP 108/60 05/02/22 07:10 Pulse Ox 93 05/02/22 07:10 O2 Del Method 05/02/22 07:10 O2 Flow Rate 1 05/01/22 15:10 BMI result Body Mass Index 38.8 Const: General: no acute distress HEENT: Head: Yes normocephalic and Yes atraumatic Neck: Neck: Yes supple Resp: Auscultation: diminished lung sounds Cardio: Heart sounds: S1 normal heart sound present and S2 normal heart sound present GI: Palpation (GI): Soft to palpation and nontender Extrem: Right upper extremity: edema Objective Data Labs 04/26/22 20:54 05/02/22 06:08 Labs: Laboratory Results - last 24 hr 05/01/22 05/01/22 05/01/22 11:29 16:18 19:08 Sodium Potassium Chloride Carbon Dioxide Anion Gap BUN Creatinine Estim Creat Clear Calc Estimated GFR POC Glucose 124 H 148 H 190 H Random Glucose Calcium 05/02/22 05/02/22 06:08 06:59 Sodium 134 L Potassium 4.2 Chloride 97 Carbon Dioxide 25 Anion Gap 16 BUN 59 H Creatinine 1.84 H Estim Creat Clear Calc 36.3 Estimated GFR 27 POC Glucose 257 H Random Glucose 252 H Calcium 8.9 Procedures Date of Service Date of Service: 05/02/22 Assessment & Plan Assessment and plan (1) LUIS FELIPE (acute kidney injury): Status: Acute (2) HFrEF (heart failure with reduced ejection fraction): Status: Acute (3) CKD (chronic kidney disease) stage 3, GFR 30-59 ml/min: Status: Acute Plan Scr stable LUIS FELIPE c/w cardio renal syndrome h/o CKD baseline Scr ~ 1.3 mg/dl known HFrEF LVEF 15-20% REC torsemide 40 mg bid continue valsartan and spironolactone monitor potassium SGTL2i follow kidney function and electrolytes Time Spent With Patient Time: Total time managing care of this patient today ____ minutes. Progress Note: Quality Stroke Does the patient have a stroke diagnosis?: No
[2022-05-02 11:21] LABS: Glucose, Whole Blood 185 mg/dL (60-115)
--- NOTE | 2022-05-02 11:48 | P.PNIM_ITS ---
Subjective Subjective Date of Service: 05/02/22 Interval History: seen and examined this morning Follow-up for CHF Reports sinus congestion, hoarse throat and dry cough since yesterday No chest pain bp soft overnight, denies dizziness Review of Systems Review of Systems: Yes all other systems are reviewed and are negative Constitutional Constitutional: Denies chills and Denies fever(s) Cardiovascular Cardiovascular: Denies chest pain, Denies palpitations and Reports dyspnea on exertion Respiratory Respiratory: Reports cough and Reports dyspnea on exertion Gastrointestinal Gastrointestinal: Reports abdominal pain, Denies nausea and Denies vomiting Endocrine Endocrine: Denies palpitations Physical Exam Vital Signs: Vital Signs: Last Vital Signs Temp 98.7 F 05/02/22 07:10 Pulse 77 05/02/22 07:10 Resp 16 05/02/22 07:10 BP 108/60 05/02/22 07:10 Pulse Ox 93 05/02/22 07:10 O2 Del Method 05/02/22 07:10 O2 Flow Rate 1 05/01/22 15:10 BMI result Body Mass Index 38.8 Const: General: cooperative, comfortable, alert and awake Nutritional Appearance: overweight Orientation/consciousness: patient oriented x3 Resp: Effort & Inspection: normal respiratory effort, no respiratory distress and no use of accessory muscles Cardio: Rate: regular rate Heart sounds: S1 normal heart sound present and S2 normal heart sound present GI: Inspection: No distended Palpation (GI): Soft to palpation and nontender Neuro: General: patient oriented x3 and CN's II-XI intact bilaterally Extrem: General: Yes no pedal edema Objective Data Active Medications Apixaban (Apixaban 5 Mg Tablet) 5 mg PO BID [facility] Last Admin: 05/02/22 08:10 Dose: 5 mg Documented By: MARIO Atorvastatin Calcium (Atorvastatin Calcium 40 Mg Tablet) 40 mg PO BEDTIME [facility] Last Admin: 05/01/22 19:59 Dose: 40 mg Documented By: MARISOL Carvedilol (Carvedilol 3.125 Mg Tablet) 3.125 mg PO BID [facility]; Protocol Last Admin: 05/02/22 09:45 Dose: 3.125 mg Documented By: MARIO Dextrose (Dextrose 50 % 25 Gm/50 Ml Syringe) 25 gm IVPUSH Q15M PRN; Protocol PRN Reason: per Hypoglycemia Standing Ord. Gabapentin (Gabapentin 100 Mg Capsule) 100 mg PO BID [facility] Last Admin: 05/02/22 08:11 Dose: 100 mg Documented By: MARIO Glucose (Glucose Gel 15 Gm Gel..Gram.) 15 gm PO Q15M PRN; Protocol PRN Reason: per Hypoglycemia Standing Ord. Insulin Glargine (Insulin Glargine,Hum.Rec.Anlog 100 Unit/Ml 10 Ml Vial) 29 unit SUBCUT BEDTIME [facility] Last Admin: 05/01/22 20:12 Dose: 29 unit Documented By: MARISOL Insulin Human Lispro (Insulin Lispro 100 Unit/Ml 3 Ml Vial) 12 unit SUBCUT TIDAC [facility] Last Admin: 05/02/22 08:09 Dose: 12 unit Documented By: MARIO Insulin Human Lispro (Insulin Lispro 100 Unit/Ml 3 Ml Vial) 0 unit SUBCUT QIDACHS [facility]; Protocol Last Admin: 05/02/22 08:10 Dose: 1 unit Documented By: MARIO [facility] Last Admin: 05/02/22 08:11 Dose: 800 mg Documented By: MARIO Pt Own (Amiodarone (200 Mg)) 200 mg PO DAILY [facility] Last Admin: 05/02/22 08:09 Dose: 200 mg Documented By: MARIO Nf Throat Lozenge- (Honey Lemon) 0 each BUCCAL Q2H PRN PRN Reason: Sore Throat Ondansetron HCl (Ondansetron Hcl 4 Mg/2 Ml Vial) 4 mg IVPUSH Q8H PRN PRN Reason: Nausea and Vomiting Pharmacy Consult (Consult Rx Perform Med Rec) 1 each MISCELLANE ONCE PRN PRN Reason: Consult order Sodium Chloride (0.9 % Sodium Chloride Flush 3 Ml Syringe) 3 ml IVFLUSH QSHIFT [facility] Last Admin: 05/02/22 08:12 Dose: 3 ml Documented By: MARIO Spironolactone (Spironolactone 25 Mg Tablet) 25 mg PO DAILY [facility]; Protocol Last Admin: 05/01/22 08:57 Dose: 25 mg Documented By: MARIO Torsemide (Torsemide 20 Mg Tablet) 40 mg PO BID [facility]; Protocol Last Admin: 05/02/22 09:45 Dose: 40 mg Documented By: MARIO Valsartan (Valsartan 40 Mg Tablet) 40 mg PO DAILY [facility]; Protocol Labs 04/26/22 20:54 05/02/22 06:08 Labs: Laboratory Results - last 24 hr 05/01/22 05/01/22 05/02/22 16:18 19:08 06:08 Anion Gap 16 Estim Creat Clear Calc 36.3 Estimated GFR 27 POC Glucose 148 H 190 H Random Glucose 252 H Calcium 8.9 05/02/22 05/02/22 06:59 11:18 Anion Gap Estim Creat Clear Calc Estimated GFR POC Glucose 257 H 185 H Random Glucose Calcium Assessment and Plan (1) Acute exacerbation of CHF (congestive heart failure): Status: Acute (2) CKD (chronic kidney disease) stage 3, GFR 30-59 ml/min: Status: Acute Plan Hospital day:4 67-year-old female past medical history of CHF with reduced ejection fraction presents to the hospital with complaints of shortness of breath, as well as lower extremity swelling found to have acute CHF exacerbation acute CHF exacerbation (CHF with reduced Ef around 20-30%) 6 liter neg leg edema improving continue low-sodium diet, continue aldactone, coreg ,valsartan - BP soft - dose of coreg and valsartan decreased she did not respond well to iv lasix so switched to iv bumex - now on po torsemide cardiology following chronic AFib/a flutter: s/p cardioversion 05/01 continue Eliquis and carvedilol,amiodarone diabetes : dm diet continue home insulin regimen and adjusted sliding scale insulin qtc prolong ? chronic improving last qtc is 490 ms keep k>4 and mag>2 monitor electrolytes continue magnesium supplements to keep mag>2 morbid obesity:? Encouraged to lose weight. mena on ckd 3 -? cardiorenal. baseline scr around 1.3 nephrology following -continue torsemide,valsartan, sprinolactone monitor renal function an electrolytes DVT prophylaxis: Omid attending - dr. Hayes inpatient need :acute CHF exacerbation(HF with reduced Ef around 20-30%) renal function and electrolyte monitoring, tele monitor; close BP monitoring Time Spent With Patient Time: Total time managing care of this patient today ____ minutes. Quality Stroke Does the patient have a stroke diagnosis?: No VTE Prior VTE?: No VTE Risk Level:: Medical - moderate - high VTE Device Contraindication: Treatment Not Indicated VTE Drug Contraindication: N/A - Med Ordered
[2022-05-02] MEDS: Spironolactone 25 MG TABLET PO (12:56)
--- NOTE | 2022-05-02 15:12 | P.PNCA_ITS ---
Subjective Subjective Date of Service: 05/02/22 Principal diagnosis: CHF, atrial flutter Interval history: Seen examined at bedside. Status post cardioversion yesterday. She has a viral illness today with runny nose and congestion. Also coughing a lot and feels that she is more short of breath today. Physical Exam Vital Signs: Last Vital Signs Temp 98.2 F 05/02/22 11:49 Pulse 80 05/02/22 11:49 Resp 16 05/02/22 11:49 BP 111/61 05/02/22 11:49 Pulse Ox 96 05/02/22 11:49 O2 Del Method 05/02/22 11:49 O2 Flow Rate 1 05/01/22 15:10 BMI result Body Mass Index 38.8 GENERAL APPEARANCE: Congested, looks short of breath. NECK: no carotid bruit, mild JVD. SKIN: no suspicious lesions, warm and dry. HEART: no murmurs, regular rate and rhythm. LUNGS: clear to auscultation bilaterally. ABDOMEN: soft, nontender. EXTREMITIES: mild edema. PERIPHERAL PULSES: equal. NEUROLOGIC: No gross deficits, AAO X 3 Objective Labs and Meds 04/26/22 20:54 05/02/22 06:08 Lab results: Laboratory Results - last 24 hr 05/01/22 05/01/22 05/02/22 16:18 19:08 06:08 Sodium 134 L Potassium 4.2 Chloride 97 Carbon Dioxide 25 Anion Gap 16 BUN 59 H Creatinine 1.84 H Estim Creat Clear Calc 36.3 Estimated GFR 27 POC Glucose 148 H 190 H Random Glucose 252 H Calcium 8.9 05/02/22 05/02/22 06:59 11:18 Sodium Potassium Chloride Carbon Dioxide Anion Gap BUN Creatinine Estim Creat Clear Calc Estimated GFR POC Glucose 257 H 185 H Random Glucose Calcium Progress Note: A&P Assessment and plan (1) HFrEF (heart failure with reduced ejection fraction): Status: Acute Plan [age] 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 She is status post cardioversion yesterday. She is in sinus rhythm. Overall volume status looks similar and she is close to euvolemia. Blood pressure has been slightly low and her medications were adjusted. I think she should not get all her blood pressure medication at the same time and they should be staggered. She clearly has some viral illness at this point. Please do a viral panel. Ple ase repeat chest x-ray. Thank you for allowing me to participate in the care of your patient. Please feel free to contact me if you have any questions. Time Spent With Patient Time: Total time managing care of this patient today ____ minutes. Progress Note: Quality Stroke Does the patient have a stroke diagnosis?: No Procedures Date of Service Date of Service: 05/02/22
--- NOTE | 2022-05-02 15:23 | HO.POSTANES ---
Post Anesthesia Evaluation Post Anesthesia Evaluation Vital Signs: Vital Signs Temp Pulse Resp BP Pulse Ox O2 Del Method 05/02/22 11:49 98.2 F 80 16 111/61 96 Room Air 05/02/22 07:10 98.7 F 77 16 108/60 93 Room Air 05/02/22 04:00 98.6 F 76 20 106/53 L 98 Room Air Anesthesia: General Mental Status: Awake Pain Control: Satisfactory Nausea/Vomiting: None Hydration: Adequate Anesthesia-Related Issues: No Anes. Related Issues
[2022-05-02 16:29] LABS: Glucose, Whole Blood 197 mg/dL (60-115)
[2022-05-02 17:46] LABS: Adenovirus PCR Not Detected (Not Detect.); Bordetella parapertussis PCR Not Detected (Not Detect.); Bordetella pertussis PCR Not Detected (Not Detect.); Chlamydia pneumoniae PCR Not Detected (Not Detect.); Coronavirus 229E PCR Not Detected (Not Detect.); Coronavirus HKU1 PCR Detected (Not Detect.); Coronavirus NL63 PCR Not Detected (Not Detect.); Coronavirus OC43 PCR Not Detected (Not Detect.); SARS-CoV-2 PCR Not Detected (Not Detect.)
[2022-05-02 17:47] LABS: Human metapneumovirus PCR Not Detected (Not Detect.); Influenza A PCR Not Detected (Not Detect.); Influenza B PCR Not Detected (Not Detect.); Mycoplasma pneumoniae PCR Not Detected (Not Detect.); Parainfluenza 1 PCR Not Detected (Not Detect.); Parainfluenza 2 PCR Not Detected (Not Detect.); Parainfluenza 3 PCR Not Detected (Not Detect.); Parainfluenza 4 PCR Not Detected (Not Detect.); RSV PCR Not Detected (Not Detect.); Rhino/Enterovirus PCR Not Detected (Not Detect.)
[2022-05-02 20:31] LABS: Glucose, Whole Blood 142 mg/dL (60-115)
[2022-05-02] MEDS: Valsartan 40 MG TABLET PO (20:52)
[2022-05-02] MEDS: Atorvastatin Calcium 40 MG TABLET PO (20:52)
[2022-05-02] MEDS: Insulin Glargine,Hum.rec.anlog 100 UNIT/ML 10 ML VIAL 29 UNIT SUBCUT (20:53)
[2022-05-03] VITALS (8 sets, daily range): BP systolic 82–154; BP diastolic 50–91; PULSE 66–76; RESP 14–18; TEMP 36.3–37.1; O2SAT 93–100
[2022-05-03 07:34] LABS: Glucose, Whole Blood 131 mg/dL (60-115)
[2022-05-03 08:29] LABS: Anion Gap 16 (12-20); Blood Urea Nitrogen 52 mg/dL (9-16); Calcium 9.2 mg/dL (8.4-10.2); Carbon Dioxide 28 mmol/L (22-29); Chloride 98 mmol/L (96-108); Creatinine Clr Calc Pharmacy 39.3; Estimated Glomerular Filt Rate 30; Glucose Random 157 mg/dL (60-115); Potassium 4.1 mmol/L (3.3-5.1); Sodium 138 mmol/L (135-145)
[2022-05-03] MEDS: Insulin Lispro 100 UNIT/ML 3 ML VIAL 12 UNIT SUBCUT ×3 (09:42→17:23)
[2022-05-03] MEDS: carvediloL 3.125 MG TABLET PO ×2 (09:44→20:22)
[2022-05-03] MEDS: Apixaban 5 MG TABLET PO ×2 (09:45→20:22)
[2022-05-03] MEDS: Gabapentin 100 MG CAPSULE PO ×2 (09:45→20:22)
[2022-05-03] MEDS: Magnesium Oxide 400 MG TABLET 800 MG PO ×2 (09:46→17:27)
[2022-05-03] MEDS: 0.9 % Sodium Chloride Flush 3 ML SYRINGE IVFLUSH ×3 (09:48→20:23)
--- NOTE | 2022-05-03 10:14 | PM.PNNEP ---
Subjective Subjective Date of Service: 05/03/22 Principal diagnosis: CHF, atrial flutter Interval history: seen and examined this morning denies CP/SOB/N/V/D Physical Exam Vital Signs: Vital Signs: Last Vital Signs Temp 97.4 F 05/03/22 07:05 Pulse 66 05/03/22 07:05 Resp 14 05/03/22 07:05 BP 82/62 L 05/03/22 07:05 Pulse Ox 100 05/03/22 07:05 O2 Del Method 05/03/22 07:05 O2 Flow Rate 2 05/03/22 07:05 BMI result Body Mass Index 38.8 Const: General: no acute distress HEENT: Head: Yes normocephalic and Yes atraumatic Neck: Neck: Yes supple Resp: Auscultation: diminished lung sounds Cardio: Heart sounds: S1 normal heart sound present and S2 normal heart sound present GI: Palpation (GI): Soft to palpation and nontender Extrem: Right upper extremity: edema Objective Data Labs 04/26/22 20:54 05/03/22 08:08 Labs: Laboratory Results - last 24 hr 05/02/22 05/02/22 05/02/22 11:18 15:25 16:25 Sodium Potassium Chloride Carbon Dioxide Anion Gap BUN Creatinine Estim Creat Clear Calc Estimated GFR POC Glucose 185 H 197 H Random Glucose Calcium Respiratory Panel Esparza See Note Adenovirus (Rapid PCR) Not Detected B.pert (TEM-PCR) Not Detected B.parapertussis DNA PCR Not Detected C. pneumoniae DNA (PCR) Not Detected Coronavirus OC43 (PCR) Not Detected Coronavirus HKU1 (PCR) Detected A Coronavirus 229E (PCR) Not Detected Coronavirus NL63 (PCR) Not Detected Human Metapneumovir PCR Not Detected Influenza A (RT-PCR) Not Detected Influenza B (RT-PCR) Not Detected M. pneumoniae (PCR) Not Detected Parainfluenza 1 (PCR) Not Detected Parainfluenza 2 (PCR) Not Detected Parainfluenza 3 (PCR) Not Detected Parainfluenza 4 (PCR) Not Detected RSV (PCR) Not Detected Entero/Rhino (PCR) Not Detected SARS-CoV-2 RNA (RT-PCR) Not Detected 05/02/22 05/03/22 05/03/22 20:27 07:04 08:08 Sodium 138 Potassium 4.1 Chloride 98 Carbon Dioxide 28 Anion Gap 16 BUN 52 H Creatinine 1.70 H Estim Creat Clear Calc 39.3 Estimated GFR 30 POC Glucose 142 H 131 H Random Glucose 157 H Calcium 9.2 Respiratory Panel Esparza Adenovirus (Rapid PCR) B.pert (TEM-PCR) B.parapertussis DNA PCR C. pneumoniae DNA (PCR) Coronavirus OC43 (PCR) Coronavirus HKU1 (PCR) Coronavirus 229E (PCR) Coronavirus NL63 (PCR) Human Metapneumovir PCR Influenza A (RT-PCR) Influenza B (RT-PCR) M. pneumoniae (PCR) Parainfluenza 1 (PCR) Parainfluenza 2 (PCR) Parainfluenza 3 (PCR) Parainfluenza 4 (PCR) RSV (PCR) Entero/Rhino (PCR) SARS-CoV-2 RNA (RT-PCR) Procedures Date of Service Date of Service: 05/03/22 Assessment & Plan Assessment and plan (1) LUIS FELIPE (acute kidney injury): Status: Acute (2) HFrEF (heart failure with reduced ejection fraction): Status: Acute (3) CKD (chronic kidney disease) stage 3, GFR 30-59 ml/min: Status: Acute Plan Scr marginally better LUIS FELIPE c/w cardio renal syndrome h/o CKD baseline Scr ~ 1.3 mg/dl known HFrEF LVEF 15-20% REC torsemide 40 mg bid continue valsartan and spironolactone monitor potassium SGTL2i follow kidney function and electrolytes Time Spent With Patient Time: Total time managing care of this patient today ____ minutes. Progress Note: Quality Stroke Does the patient have a stroke diagnosis?: No
[2022-05-03 11:09] LABS: Glucose, Whole Blood 210 mg/dL (60-115)
--- NOTE | 2022-05-03 12:26 | P.PNIM_ITS ---
Subjective Subjective Date of Service: 05/03/22 Interval History: seen and examined this morning follow up for chf, hypotension bp still low, feeling a little dizzy cough, sob and sinus congestion better Review of Systems Review of Systems: Yes all other systems are reviewed and are negative Constitutional Constitutional: Denies chills and Denies fever(s) Cardiovascular Cardiovascular: Denies chest pain, Denies palpitations and Denies dyspnea Respiratory Respiratory: Denies cough and Denies dyspnea Gastrointestinal Gastrointestinal: Denies abdominal pain Endocrine Endocrine: Denies palpitations Physical Exam Vital Signs: Vital Signs: Last Vital Signs Temp 97.3 F 05/03/22 10:55 Pulse 70 05/03/22 10:55 Resp 16 05/03/22 10:55 BP 86/50 L 05/03/22 10:55 Pulse Ox 96 05/03/22 10:55 O2 Del Method 05/03/22 10:55 O2 Flow Rate 2 05/03/22 10:55 BMI result Body Mass Index 38.8 Const: General: cooperative, comfortable, alert and awake Nutritional Appearance: overweight Orientation/consciousness: patient oriented x3 Resp: Effort & Inspection: normal respiratory effort, no respiratory distress and no use of accessory muscles Cardio: Rate: regular rate Heart sounds: S1 normal heart sound present and S2 normal heart sound present GI: Inspection: No distended Palpation (GI): Soft to palpation and nontender Neuro: General: patient oriented x3 and CN's II-XI intact bilaterally Extrem: General: Yes no pedal edema Objective Data Active Medications Apixaban (Apixaban 5 Mg Tablet) 5 mg PO BID [facility] Last Admin: 05/03/22 09:45 Dose: 5 mg Documented By: KAE Atorvastatin Calcium (Atorvastatin Calcium 40 Mg Tablet) 40 mg PO BEDTIME [facility] Last Admin: 05/02/22 20:52 Dose: 40 mg Documented By: MARIO Carvedilol (Carvedilol 3.125 Mg Tablet) 3.125 mg PO BID [facility]; Protocol Last Admin: 05/03/22 09:44 Dose: 3.125 mg Documented By: KAE Dextrose (Dextrose 50 % 25 Gm/50 Ml Syringe) 25 gm IVPUSH Q15M PRN; Protocol PRN Reason: per Hypoglycemia Standing Ord. Gabapentin (Gabapentin 100 Mg Capsule) 100 mg PO BID [facility] Last Admin: 05/03/22 09:45 Dose: 100 mg Documented By: KAE Glucose (Glucose Gel 15 Gm Gel..Gram.) 15 gm PO Q15M PRN; Protocol PRN Reason: per Hypoglycemia Standing Ord. Insulin Glargine (Insulin Glargine,Hum.Rec.Anlog 100 Unit/Ml 10 Ml Vial) 29 unit SUBCUT BEDTIME [facility] Last Admin: 05/02/22 20:53 Dose: 29 unit Documented By: MARIO Insulin Human Lispro (Insulin Lispro 100 Unit/Ml 3 Ml Vial) 12 unit SUBCUT TIDAC [facility] Last Admin: 05/03/22 09:42 Dose: 12 unit Documented By: KAE Insulin Human Lispro (Insulin Lispro 100 Unit/Ml 3 Ml Vial) 0 unit SUBCUT QIDACHS [facility]; Protocol Last Admin: 05/03/22 09:43 Dose: Not Given Documented By: KAE Non-Admin Reason: No Insulin Coverage Magnesium Oxide (Magnesium Oxide 400 Mg Tablet) 800 mg PO BIDPC [facility] Last Admin: 05/03/22 09:46 Dose: 800 mg Documented By: KAE Pt Own (Amiodarone (200 Mg)) 200 mg PO DAILY [facility] Last Admin: 05/03/22 09:43 Dose: 200 mg Documented By: KAE Nf Throat Lozenge- (Honey Lemon) 0 each BUCCAL Q2H PRN PRN Reason: Sore Throat Last Admin: 05/03/22 09:44 Dose: 1 each Documented By: KAE Ondansetron HCl (Ondansetron Hcl 4 Mg/2 Ml Vial) 4 mg IVPUSH Q8H PRN PRN Reason: Nausea and Vomiting Pharmacy Consult (Consult Rx Perform Med Rec) 1 each MISCELLANE ONCE PRN PRN Reason: Consult order Sodium Chloride (0.9 % Sodium Chloride Flush 3 Ml Syringe) 3 ml IVFLUSH QSHIFT [facility] Last Admin: 05/03/22 09:48 Dose: 3 ml Documented By: KAE Spironolactone (Spironolactone 25 Mg Tablet) 25 mg PO DAILY [facility]; Protocol Last Admin: 05/02/22 12:56 Dose: 25 mg Documented By: MARIO Torsemide (Torsemide 20 Mg Tablet) 40 mg PO BID [facility]; Protocol Last Admin: 05/02/22 20:52 Dose: 40 mg Documented By: MARIO Labs 04/26/22 20:54 05/03/22 08:08 Labs: Laboratory Results - last 24 hr 05/02/22 05/02/22 05/02/22 15:25 16:25 20:27 Anion Gap Estim Creat Clear Calc Estimated GFR POC Glucose 197 H 142 H Random Glucose Calcium Respiratory Panel Esparza See Note Adenovirus (Rapid PCR) Not Detected B.pert (TEM-PCR) Not Detected B.parapertussis DNA PCR Not Detected C. pneumoniae DNA (PCR) Not Detected Coronavirus OC43 (PCR) Not Detected Coronavirus HKU1 (PCR) Detected A Coronavirus 229E (PCR) Not Detected Coronavirus NL63 (PCR) Not Detected Human Metapneumovir PCR Not Detected Influenza A (RT-PCR) Not Detected Influenza B (RT-PCR) Not Detected M. pneumoniae (PCR) Not Detected Parainfluenza 1 (PCR) Not Detected Parainfluenza 2 (PCR) Not Detected Parainfluenza 3 (PCR) Not Detected Parainfluenza 4 (PCR) Not Detected RSV (PCR) Not Detected Entero/Rhino (PCR) Not Detected SARS-CoV-2 RNA (RT-PCR) Not Detected 05/03/22 05/03/22 05/03/22 07:04 08:08 10:54 Anion Gap 16 Estim Creat Clear Calc 39.3 Estimated GFR 30 POC Glucose 131 H 210 H Random Glucose 157 H Calcium 9.2 Respiratory Panel Esparza Adenovirus (Rapid PCR) B.pert (TEM-PCR) B.parapertussis DNA PCR C. pneumoniae DNA (PCR) Coronavirus OC43 (PCR) Coronavirus HKU1 (PCR) Coronavirus 229E (PCR) Coronavirus NL63 (PCR) Human Metapneumovir PCR Influenza A (RT-PCR) Influenza B (RT-PCR) M. pneumoniae (PCR) Parainfluenza 1 (PCR) Parainfluenza 2 (PCR) Parainfluenza 3 (PCR) Parainfluenza 4 (PCR) RSV (PCR) Entero/Rhino (PCR) SARS-CoV-2 RNA (RT-PCR) Assessment and Plan (1) HFrEF (heart failure with reduced ejection fraction): Status: Acute (2) LUIS FELIPE (acute kidney injury): Status: Acute (3) Acute exacerbation of CHF (congestive heart failure): Status: Acute Plan Hospital day:4 67-year-old female past medical history of CHF with reduced ejection fraction presents to the hospital with complaints of shortness of breath, as well as lower extremity swelling found to have acute CHF exacerbation acute CHF exacerbation (CHF with reduced Ef around 15-20%) 8 liter neg leg edema improving continue low-sodium diet she did not respond well to iv lasix so switched to iv bumex - now on po torsemide persisent soft Bp despite decreasing dose of coreg and valsartan; will d/c valsartan. aldactone/torsemide on hold today cardiology following acute respiratory failure with hypoxia likely r/t URI - tested + for coronavirus (not COVID 19) repeat CXR negative wean oxygen as tolerated symptomatic management chronic AFib/a flutter: s/p cardioversion 05/01 continue Eliquis and carvedilol, amiodarone luis felipe on ckd 3 baseline scr around 1.3, SCr still elevated nephrology following bp meds on hold for soft BP monitor renal function an electrolytes diabetes : dm diet continue home insulin regimen and SSI qtc prolong ? chronic improving keep k>4 and mag>2 monitor electrolytes continue magnesium supplements to keep mag>2 morbid obesity:? Encouraged to lose weight. DVT prophylaxis: Omid attending - dr. Hayes inpatient need :acute CHF exacerbation(HF with reduced Ef around 15-20%) renal function and electrolyte monitoring, tele monitor; close BP monitoring Time Spent With Patient Time: Total time managing care of this patient today ____ minutes. Quality Stroke Does the patient have a stroke diagnosis?: No VTE Prior VTE?: No VTE Risk Level:: Medical - moderate - high VTE Device Contraindication: Treatment Not Indicated VTE Drug Contraindication: N/A - Med Ordered
[2022-05-03] MEDS: Insulin Lispro 100 UNIT/ML 3 ML VIAL SUBCUT ×3 (12:30→20:23)
--- NOTE | 2022-05-03 12:46 | P.PNCA_ITS ---
Subjective Subjective Date of Service: 05/03/22 Principal diagnosis: CHF, atrial flutter Interval history: Sneezing and coughing. Viral panel is positive for coronavirus but not COVID- 19. Blood pressure was soft and her blood pressure medications were held today. Physical Exam Vital Signs: Last Vital Signs Temp 97.3 F 05/03/22 10:55 Pulse 70 05/03/22 10:55 Resp 16 05/03/22 10:55 BP 86/50 L 05/03/22 10:55 Pulse Ox 96 05/03/22 10:55 O2 Del Method 05/03/22 10:55 O2 Flow Rate 2 05/03/22 10:55 BMI result Body Mass Index 38.8 GENERAL APPEARANCE: Congested, looks short of breath. NECK: no carotid bruit, mild JVD. SKIN: no suspicious lesions, warm and dry. HEART: no murmurs, regular rate and rhythm. LUNGS: clear to auscultation bilaterally. ABDOMEN: soft, nontender. EXTREMITIES: mild edema. PERIPHERAL PULSES: equal. NEUROLOGIC: No gross deficits, AAO X 3 Objective Labs and Meds 04/26/22 20:54 05/03/22 08:08 Lab results: Laboratory Results - last 24 hr 05/02/22 05/02/22 05/02/22 15:25 16:25 20:27 Sodium Potassium Chloride Carbon Dioxide Anion Gap BUN Creatinine Estim Creat Clear Calc Estimated GFR POC Glucose 197 H 142 H Random Glucose Calcium Respiratory Panel Esparza See Note Adenovirus (Rapid PCR) Not Detected B.pert (TEM-PCR) Not Detected B.parapertussis DNA PCR Not Detected C. pneumoniae DNA (PCR) Not Detected Coronavirus OC43 (PCR) Not Detected Coronavirus HKU1 (PCR) Detected A Coronavirus 229E (PCR) Not Detected Coronavirus NL63 (PCR) Not Detected Human Metapneumovir PCR Not Detected Influenza A (RT-PCR) Not Detected Influenza B (RT-PCR) Not Detected M. pneumoniae (PCR) Not Detected Parainfluenza 1 (PCR) Not Detected Parainfluenza 2 (PCR) Not Detected Parainfluenza 3 (PCR) Not Detected Parainfluenza 4 (PCR) Not Detected RSV (PCR) Not Detected Entero/Rhino (PCR) Not Detected SARS-CoV-2 RNA (RT-PCR) Not Detected 02/05/03/22 05/03/22 07:04 08:08 10:54 Sodium 138 Potassium 4.1 Chloride 98 Carbon Dioxide 28 Anion Gap 16 BUN 52 H Creatinine 1.70 H Estim Creat Clear Calc 39.3 Estimated GFR 30 POC Glucose 131 H 210 H Random Glucose 157 H Calcium 9.2 Respiratory Panel Esparza Adenovirus (Rapid PCR) B.pert (TEM-PCR) B.parapertussis DNA PCR C. pneumoniae DNA (PCR) Coronavirus OC43 (PCR) Coronavirus HKU1 (PCR) Coronavirus 229E (PCR) Coronavirus NL63 (PCR) Human Metapneumovir PCR Influenza A (RT-PCR) Influenza B (RT-PCR) M. pneumoniae (PCR) Parainfluenza 1 (PCR) Parainfluenza 2 (PCR) Parainfluenza 3 (PCR) Parainfluenza 4 (PCR) RSV (PCR) Entero/Rhino (PCR) SARS-CoV-2 RNA (RT-PCR) Imaging Radiologist's impression: Impressions Chest X-Ray 05/02/22 15:10 IMPRESSION: No acute cardiopulmonary process. 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 She had atrial fibrillation initially which was cardioverted but developed atrial flutter/atrial tachycardia. She underwent cardioversion for that. She is on amiodarone 200 mg daily. She has been started on torsemide 40 mg p.o. b.i.d. and has been responding well with negative fluid balance at this stage. Blood pressure has been soft. I think the valsartan should be stopped for now and should not be resumed. As blood pressure improves spironolactone 25 mg daily and carvedilol 3.125 mg twice a day should be resumed. On discharge she should go home on torsemide 40 mg p.o. b.i.d.. She currently has viral illness due to coronavirus, not COVID-19 and has upper respiratory tract infection currently. Thank you for allowing me to participate in the care of your patient. Please feel free to contact me if you have any questions. Time Spent With Patient Time: Total time managing care of this patient today ____ minutes. Progress Note: Quality Stroke Does the patient have a stroke diagnosis?: No Procedures Date of Service Date of Service: 05/03/22
--- NOTE | 2022-05-03 12:48 | MHC.CM.PN ---
EMR REVIEWED PER MD ROUNDS, PT IS NOT MEDICALLY CLEARED TO DC (ELECTROLYTE AND RENAL MONITORING, BP AND CHF MGMT) CM WILL CONTINUE TO FOLLOW
[2022-05-03 15:55] LABS: Glucose, Whole Blood 178 mg/dL (60-115)
[2022-05-03 20:03] LABS: Glucose, Whole Blood 210 mg/dL (60-115)
[2022-05-03] MEDS: Atorvastatin Calcium 40 MG TABLET PO (20:22)
[2022-05-03] MEDS: Insulin Glargine,Hum.rec.anlog 100 UNIT/ML 10 ML VIAL 29 UNIT SUBCUT (20:23)
[2022-05-04] VITALS (9 sets, daily range): BP systolic 87–107; BP diastolic 44–68; PULSE 59–68; RESP 14–20; TEMP 36.1–37.2; O2SAT 94–98; BMI 38.9
[2022-05-04 07:49] LABS: Glucose, Whole Blood 204 mg/dL (60-115)
[2022-05-04] MEDS: Gabapentin 100 MG CAPSULE PO ×2 (09:01→20:40)
[2022-05-04] MEDS: Insulin Lispro 100 UNIT/ML 3 ML VIAL 12 UNIT SUBCUT ×3 (09:01→17:32)
[2022-05-04] MEDS: Insulin Lispro 100 UNIT/ML 3 ML VIAL SUBCUT ×4 (09:01→20:41)
[2022-05-04] MEDS: Magnesium Oxide 400 MG TABLET 800 MG PO ×2 (09:01→17:29)
[2022-05-04] MEDS: Apixaban 5 MG TABLET PO ×2 (09:01→20:40)
[2022-05-04] MEDS: 0.9 % Sodium Chloride Flush 3 ML SYRINGE IVFLUSH ×3 (09:02→20:40)
--- NOTE | 2022-05-04 10:36 | P.PNCA_ITS ---
Subjective Subjective Date of Service: 05/04/22 Principal diagnosis: CHF, atrial flutter Interval history: Seen examined at bedside. Looks overall sick since the viral illness. Also more edematous and complaining of shortness of breath. Physical Exam Vital Signs: Last Vital Signs Temp 97.3 F 05/04/22 07:15 Pulse 66 05/04/22 07:15 Resp 20 05/04/22 07:15 BP 103/68 05/04/22 09:11 Pulse Ox 96 05/04/22 09:11 O2 Del Method 05/04/22 09:11 O2 Flow Rate 2 05/04/22 07:15 Oxygen Flow Rate 2 05/03/22 14:00 BMI result Body Mass Index 38.9 GENERAL APPEARANCE: Congested, looks short of breath. NECK: no carotid bruit, positive JVD. SKIN: no suspicious lesions, warm and dry. HEART: no murmurs, regular rate and rhythm. LUNGS: clear to auscultation bilaterally. ABDOMEN: soft, nontender. EXTREMITIES: 1+ edema. PERIPHERAL PULSES: equal. NEUROLOGIC: No gross deficits, AAO X 3 Objective Labs and Meds 04/26/22 20:54 05/03/22 08:08 Lab results: Laboratory Results - last 24 hr 05/03/22 05/03/22 05/03/22 10:54 15:51 19:58 POC Glucose 210 H 178 H 210 H 05/04/22 07:17 POC Glucose 204 H Progress Note: A&P Assessment and plan (1) HFrEF (heart failure with reduced ejection fraction): Status: Acute Plan 67-year-old female status post cardioversion for atrial tachycardia/flutter. She has tachycardia induced cardiomyopathy. Has been off medications for couple of days due to low blood pressures. Looks volume overloaded. Given 80 mg b.i.d. Lasix today. Resume torsemide tomorrow. Monitor electrolytes closely. Continue carvedilol at 3.125 mg along with spironolactone. Continue to hold valsartan for now. Amiodarone should not be interrupted. Thank you for allowing me to participate in the care of your patient. Please fe el free to contact me if you have any questions. Time Spent With Patient Time: Total time managing care of this patient today ____ minutes. Progress Note: Quality Stroke Does the patient have a stroke diagnosis?: No Procedures Date of Service Date of Service: 05/04/22
--- NOTE | 2022-05-04 10:42 | PM.PNNEP ---
Subjective Subjective Date of Service: 05/04/22 Principal diagnosis: CHF, atrial flutter Interval history: seen and examined no complaints Physical Exam Vital Signs: Vital Signs: Last Vital Signs Temp 97.3 F 05/04/22 07:15 Pulse 66 05/04/22 07:15 Resp 20 05/04/22 07:15 BP 103/68 05/04/22 09:11 Pulse Ox 96 05/04/22 09:11 O2 Del Method 05/04/22 09:11 O2 Flow Rate 2 05/04/22 07:15 Oxygen Flow Rate 2 05/03/22 14:00 BMI result Body Mass Index 38.9 Const: General: no acute distress HEENT: Head: Yes normocephalic and Yes atraumatic Neck: Neck: Yes supple Resp: Auscultation: diminished lung sounds Cardio: Heart sounds: S1 normal heart sound present and S2 normal heart sound present GI: Palpation (GI): Soft to palpation and nontender Extrem: Right upper extremity: edema Objective Data Labs 04/26/22 20:54 05/03/22 08:08 Labs: Laboratory Results - last 24 hr 05/03/22 05/03/22 05/03/22 10:54 15:51 19:58 POC Glucose 210 H 178 H 210 H 05/04/22 07:17 POC Glucose 204 H Procedures Date of Service Date of Service: 05/04/22 Assessment & Plan Assessment and plan (1) LUIS FELIPE (acute kidney injury): Status: Acute (2) HFrEF (heart failure with reduced ejection fraction): Status: Acute (3) CKD (chronic kidney disease) stage 3, GFR 30-59 ml/min: Status: Acute Plan hypotensive earlier LUIS FELIPE c/w cardio renal syndrome h/o CKD baseline Scr ~ 1.3 mg/dl known HFrEF LVEF 15-20% REC avoid hypotension diuresis per cardiology follow kidney function and electrolytes Time Spent With Patient Time: Total time managing care of this patient today ____ minutes. Progress Note: Quality Stroke Does the patient have a stroke diagnosis?: No
[2022-05-04] MEDS: Furosemide 100 MG/10 ML VIAL 80 MG IVPUSH (11:21)
--- NOTE | 2022-05-04 11:27 | HO.PM.IMPN ---
Subjective Subjective Date of Service: 05/04/22 Interval History: seen and examined this morning follow up for chf, hypotension bp still low cough, sob and sinus congestion better Review of Systems Review of Systems: Yes all other systems are reviewed and are negative Constitutional Constitutional: Denies chills and Denies fever(s) Cardiovascular Cardiovascular: Denies chest pain, Denies palpitations and Denies dyspnea Respiratory Respiratory: Denies cough and Denies dyspnea Gastrointestinal Gastrointestinal: Denies abdominal pain Endocrine Endocrine: Denies palpitations Physical Exam Vital Signs: Vital Signs: Last Vital Signs Temp 97.4 F 05/04/22 11:11 Pulse 68 05/04/22 11:11 Resp 18 05/04/22 11:11 BP 95/60 05/04/22 11:11 Pulse Ox 98 05/04/22 11:11 O2 Del Method 05/04/22 11:11 O2 Flow Rate 2 05/04/22 11:11 Oxygen Flow Rate 2 05/03/22 14:00 BMI result Body Mass Index 38.9 Appearing in no acute distress lung sounds are clear to auscultation heart regular rate rhythm, clear S1, S2 positive bowel sounds, abdomen is soft, nontender neuro patient is alert x3, no focal deficits Objective Data Active Medications Albuterol Sulfate (Albuterol Sulfate 90 Mcg 8 Gm Inhaler) 2 puff INHALE Q6H PRN PRN Reason: Shortness of Breath Apixaban (Apixaban 5 Mg Tablet) 5 mg PO BID [facility] Last Admin: 05/04/22 09:01 Dose: 5 mg Documented By: GLENDY Atorvastatin Calcium (Atorvastatin Calcium 40 Mg Tablet) 40 mg PO BEDTIME [facility] Last Admin: 05/03/22 20:22 Dose: 40 mg Documented By: MARIO Carvedilol (Carvedilol 3.125 Mg Tablet) 3.125 mg PO BID [facility]; Protocol Last Admin: 05/04/22 08:58 Dose: Not Given Documented By: GLENDY Non-Admin Reason: low bp, md valdes Dextrose (Dextrose 50 % 25 Gm/50 Ml Syringe) 25 gm IVPUSH Q15M PRN; Protocol PRN Reason: per Hypoglycemia Standing Ord. Furosemide (Furosemide 100 Mg/10 Ml Vial) 80 mg IVPUSH BID@0900,1800 [facility]; Protocol Last Admin: 05/04/22 11:21 Dose: 80 mg Documented By: GLENDY Gabapentin (Gabapentin 100 Mg Capsule) 100 mg PO BID [facility] Last Admin: 05/04/22 09:01 Dose: 100 mg Documented By: GLENDY Glucose (Glucose Gel 15 Gm Gel..Gram.) 15 gm PO Q15M PRN; Protocol PRN Reason: per Hypoglycemia Standing Ord. Insulin Glargine (Insulin Glargine,Hum.Rec.Anlog 100 Unit/Ml 10 Ml Vial) 29 unit SUBCUT BEDTIME [facility] Last Admin: 05/03/22 20:23 Dose: 29 unit Documented By: MARIO Insulin Human Lispro (Insulin Lispro 100 Unit/Ml 3 Ml Vial) 12 unit SUBCUT TIDAC [facility] Last Admin: 05/04/22 11:21 Dose: 12 unit Documented By: GLENDY Insulin Human Lispro (Insulin Lispro 100 Unit/Ml 3 Ml Vial) 0 unit SUBCUT QIDACHS [facility]; Protocol Last Admin: 05/04/22 11:22 Dose: 2 unit Documented By: GLENDY Magnesium Oxide ([facility]esium [facility] 400 Mg [facility]t) [facility] Admin: 05/04/22 09:01 Dose: 800 mg Documented By: GLENDY Pt Own (Amiodarone (200 Mg)) 200 mg PO DAILY [facility] Last Admin: 05/04/22 08:57 Dose: Not Given Documented By: GLENDY Non-Admin Reason: low bp, ok Nf Throat Lozenge- (Honey Lemon) 0 each BUCCAL Q2H PRN PRN Reason: Sore Throat Last Admin: 05/04/22 09:08 Dose: 1 each Documented By: GLENDY Ondansetron HCl (Ondansetron Hcl 4 Mg/2 Ml Vial) 4 mg IVPUSH Q8H PRN PRN Reason: Nausea and Vomiting Pharmacy Consult (Consult Rx Perform Med Rec) 1 each MISCELLANE ONCE PRN PRN Reason: Consult order Sodium Chloride (0.9 % Sodium Chloride Flush 3 Ml Syringe) 3 ml IVFLUSH QSHIFT [facility] Last Admin: 05/04/22 09:02 Dose: 3 ml Documented By: GLENDY Spironolactone (Spironolactone 25 Mg Tablet) 25 mg PO DAILY [facility]; Protocol Last Admin: 05/02/22 12:56 Dose: 25 mg Documented By: MARIO Labs 04/26/22 20:54 05/03/22 08:08 Labs: Laboratory Results - last 24 hr 05/03/22 05/03/22 05/04/22 15:51 19:58 07:17 POC Glucose 178 H 210 H 204 H Assessment and Plan (1) HFrEF (heart failure with reduced ejection fraction): Status: Acute (2) LUIS FELIPE (acute kidney injury): Status: Acute (3) Acute exacerbation of CHF (congestive heart failure): Status: Acute Plan 67-year-old female past medical history of CHF with reduced ejection fraction presents to the hospital with complaints of shortness of breath, as well as lower extremity swelling found to have acute CHF exacerbation acute CHF exacerbation (CHF with reduced Ef around 15-20%) 9.4 liter neg leg edema improving continue low-sodium diet cardiology following LAsix 80 mg BID today continue amiodarone, coreg and spironolactone continue to hold valsartan acute respiratory failure with hypoxia likely r/t URI - tested + for coronavirus (not COVID 19) repeat CXR negative wean oxygen as tolerated symptomatic management chronic AFib/a flutter s/p cardioversion 05/01 continue Eliquis and carvedilol, amiodarone luis felipe on ckd 3 baseline scr around 1.3, SCr still elevated nephrology following bp meds on hold for soft BP monitor renal function an electrolytes diabetes dm diet continue home insulin regimen and SSI qtc prolong ? chronic improving keep k>4 and mag>2 monitor electrolytes continue magnesium supplements to keep mag>2 morbid obesity Encouraged to lose weight. DVT prophylaxis: Omid attending - dr. Ruby inpatient need :acute CHF exacerbation(HF with reduced Ef around 15-20%) renal function and electrolyte monitoring, tele monitor; close BP monitoring Time Spent With Patient Time: Total time managing care of this patient today ____ minutes. Quality Stroke Does the patient have a stroke diagnosis?: No VTE Prior VTE?: No VTE Risk Level:: Medical - moderate - high VTE Device Contraindication: Treatment Not Indicated VTE Drug Contraindication: N/A - Med Ordered
[2022-05-04 11:36] LABS: Glucose, Whole Blood 200 mg/dL (60-115)
[2022-05-04 16:49] LABS: Glucose, Whole Blood 166 mg/dL (60-115)
[2022-05-04 20:26] LABS: Glucose, Whole Blood 223 mg/dL (60-115)
[2022-05-04] MEDS: Atorvastatin Calcium 40 MG TABLET PO (20:40)
[2022-05-04] MEDS: Albuterol Sulfate 90 MCG 8 GM INHALER 2 PUFF INHALE (20:41)
[2022-05-04] MEDS: Insulin Glargine,Hum.rec.anlog 100 UNIT/ML 10 ML VIAL 29 UNIT SUBCUT (20:42)
[2022-05-05] VITALS (7 sets, daily range): BP systolic 92–117; BP diastolic 53–68; PULSE 62–73; RESP 16–20; TEMP 36–36.8; O2SAT 96–99; BMI 40.1
[2022-05-05 07:53] LABS: Glucose, Whole Blood 195 mg/dL (60-115)
[2022-05-05] MEDS: Insulin Lispro 100 UNIT/ML 3 ML VIAL 12 UNIT SUBCUT ×3 (08:39→16:55)
[2022-05-05] MEDS: Insulin Lispro 100 UNIT/ML 3 ML VIAL SUBCUT ×3 (08:39→21:22)
[2022-05-05] MEDS: Apixaban 5 MG TABLET PO ×2 (08:40→21:22)
[2022-05-05] MEDS: Magnesium Oxide 400 MG TABLET 800 MG PO ×2 (08:40→16:55)
[2022-05-05] MEDS: Gabapentin 100 MG CAPSULE PO (08:40)
[2022-05-05] MEDS: 0.9 % Sodium Chloride Flush 3 ML SYRINGE IVFLUSH ×2 (08:41→21:23)
--- NOTE | 2022-05-05 09:24 | PM.PNNEP ---
Subjective Subjective Date of Service: 05/05/22 Principal diagnosis: CHF, atrial flutter Interval history: seen and examined feels better Physical Exam Vital Signs: Vital Signs: Last Vital Signs Temp 97 F 05/05/22 07:43 Pulse 62 05/05/22 07:43 Resp 16 05/05/22 07:43 BP 101/57 L 05/05/22 07:43 Pulse Ox 98 05/05/22 07:43 O2 Del Method 05/05/22 07:43 O2 Flow Rate 2.5 05/05/22 07:43 Oxygen Flow Rate 2 05/04/22 14:00 BMI result Body Mass Index 40.1 Const: General: no acute distress HEENT: Head: Yes normocephalic and Yes atraumatic Neck: Neck: Yes supple Resp: Auscultation: diminished lung sounds Cardio: Heart sounds: S1 normal heart sound present and S2 normal heart sound present GI: Palpation (GI): Soft to palpation and nontender Extrem: Right upper extremity: edema Objective Data Labs 04/26/22 20:54 05/03/22 08:08 Labs: Laboratory Results - last 24 hr 05/04/22 05/04/22 05/04/22 11:13 16:39 19:59 POC Glucose 200 H 166 H 223 H 05/05/22 07:49 POC Glucose 195 H Procedures Date of Service Date of Service: 05/05/22 Assessment & Plan Assessment and plan (1) LUIS FELIPE (acute kidney injury): Status: Acute (2) HFrEF (heart failure with reduced ejection fraction): Status: Acute (3) CKD (chronic kidney disease) stage 3, GFR 30-59 ml/min: Status: Acute Plan hypotensive earlier LUIS FELIPE c/w cardio renal syndrome h/o CKD baseline Scr ~ 1.3 mg/dl known HFrEF LVEF 15-20% REC avoid hypotension diuresis per cardiology follow kidney function and electrolytes Time Spent With Patient Time: Total time managing care of this patient today ____ minutes. Progress Note: Quality Stroke Does the patient have a stroke diagnosis?: No
--- NOTE | 2022-05-05 10:50 | HO.PM.IMPN ---
Subjective Subjective Date of Service: 05/05/22 Interval History: seen and examined this morning follow up for chf, hypotension bp still low cough, sob and sinus congestion better Review of Systems Review of Systems: Yes all other systems are reviewed and are negative Constitutional Constitutional: Denies chills and Denies fever(s) Cardiovascular Cardiovascular: Denies chest pain, Denies palpitations and Denies dyspnea Respiratory Respiratory: Denies cough and Denies dyspnea Gastrointestinal Gastrointestinal: Denies abdominal pain Endocrine Endocrine: Denies palpitations Physical Exam Vital Signs: Vital Signs: Last Vital Signs Temp 97 F 05/05/22 07:43 Pulse 62 05/05/22 07:43 Resp 16 05/05/22 07:43 BP 101/57 L 05/05/22 07:43 Pulse Ox 98 05/05/22 07:43 O2 Del Method 05/05/22 07:43 O2 Flow Rate 2.5 05/05/22 07:43 Oxygen Flow Rate 2 05/04/22 14:00 BMI result Body Mass Index 40.1 Appearing in no acute distress lung sounds are clear to auscultation heart regular rate rhythm, clear S1, S2 positive bowel sounds, abdomen is soft, nontender neuro patient is alert x3, no focal deficits Objective Data Active Medications Albuterol Sulfate (Albuterol Sulfate 90 Mcg 8 Gm Inhaler) 2 puff INHALE Q6H PRN PRN Reason: Shortness of Breath Last Admin: 05/04/22 20:41 Dose: 2 puff Documented By: MARIO Apixaban (Apixaban 5 Mg Tablet) 5 mg PO BID [facility] Last Admin: 05/05/22 08:40 Dose: 5 mg Documented By: GLENDY Atorvastatin Calcium (Atorvastatin Calcium 40 Mg Tablet) 40 mg PO BEDTIME [facility] Last Admin: 05/04/22 20:40 Dose: 40 mg Documented By: MARIO Carvedilol (Carvedilol 3.125 Mg Tablet) 3.125 mg PO BID [facility]; Protocol Last Admin: 05/04/22 19:57 Dose: Not Given Documented By: MARIO Non-Admin Reason: BP low Dextrose (Dextrose 50 % 25 Gm/50 Ml Syringe) 25 gm IVPUSH Q15M PRN; Protocol PRN Reason: per Hypoglycemia Standing Ord. Furosemide (Furosemide 100 Mg/10 Ml Vial) 80 mg IVPUSH BID@0900,1800 [facility]; Protocol Last Admin: 05/04/22 17:36 Dose: Not Given Documented By: GLENDY Non-Admin Reason: Physician Held Med Gabapentin (Gabapentin 100 Mg Capsule) 100 mg PO BID [facility] Last Admin: 05/05/22 08:40 Dose: 100 mg Documented By: GLENDY Glucose (Glucose Gel 15 Gm Gel..Gram.) 15 gm PO Q15M PRN; Protocol PRN Reason: per Hypoglycemia Standing Ord. Insulin Glargine (Insulin Glargine,Hum.Rec.Anlog 100 Unit/Ml 10 Ml Vial) 29 unit SUBCUT BEDTIME [facility] Last Admin: 05/04/22 20:42 Dose: 29 unit Documented By: MARIO Insulin Human Lispro (Insulin Lispro 100 Unit/Ml 3 Ml Vial) 12 unit SUBCUT TIDAC [facility] Last Admin: 05/05/22 08:39 Dose: 12 unit Documented By: GLENDY Insulin Human Lispro (Insulin Lispro 100 Unit/Ml 3 Ml Vial) 0 unit SUBCUT QIDACHS [facility]; Protocol Last Admin: 05/05/22 08:39 Dose: 2 unit Documented By: GLENDY Magnesium Oxide (Magnesium Oxide 400 Mg Tablet) 800 mg PO BIDPC [facility] Last Admin: 05/05/22 08:40 Dose: 800 mg Documented By: GLENDY Pt Own (Amiodarone (200 Mg)) 200 mg PO DAILY [facility] Last Admin: 05/05/22 08:41 Dose: 200 mg Documented By: GLENDY Nf Throat Lozenge- (Honey Lemon) 0 each BUCCAL Q2H PRN PRN Reason: Sore Throat Last Admin: 05/04/22 23:49 Dose: 1 each Documented By: MARIO Pharmacy Consult (Consult Rx Perform Med Rec) 1 each MISCELLANE ONCE PRN PRN Reason: Consult order Sodium Chloride (0.9 % Sodium Chloride Flush 3 Ml Syringe) 3 ml IVFLUSH QSHIFT [facility] Last Admin: 05/05/22 08:41 Dose: 3 ml Documented By: GLENDY Spironolactone (Spironolactone 25 Mg Tablet) 25 mg PO DAILY [facility]; Protocol Last Admin: 05/02/22 12:56 Dose: 25 mg Documented By: HO.CTORRZ Labs 04/26/22 20:54 05/03/22 08:08 Labs: Laboratory Results - last 24 hr 05/04/22 05/04/22 05/04/22 11:13 16:39 19:59 POC Glucose 200 H 166 H 223 H 05/05/22 07:49 POC Glucose 195 H Assessment and Plan (1) HFrEF (heart failure with reduced ejection fraction): Status: Acute (2) LUIS FELIPE (acute kidney injury): Status: Acute (3) Acute exacerbation of CHF (congestive heart failure): Status: Acute Plan 67-year-old female past medical history of CHF with reduced ejection fraction presents to the hospital with complaints of shortness of breath, as well as lower extremity swelling found to have acute CHF exacerbation Hypotension Lasix, coreg, valsartan and aldactone held follow bp closely acute CHF exacerbation (CHF with reduced Ef around 15-20%) 9.6 liter neg leg edema improving continue low-sodium diet cardiology following LAsix 80 mg BID held d/t hypotension acute respiratory failure with hypoxia likely r/t URI - tested + for coronavirus (not COVID 19) repeat CXR negative wean oxygen as tolerated symptomatic management chronic AFib/a flutter s/p cardioversion 05/01 continue Eliquis and carvedilol, amiodarone luis felipe on ckd 3. Trending down baseline scr around 1.3 nephrology following bp meds on hold for soft BP monitor renal function an electrolytes diabetes dm diet continue home insulin regimen and SSI qtc prolong ? chronic improving keep k>4 and mag>2 monitor electrolytes continue magnesium supplements to keep mag>2 morbid obesity Encouraged to lose weight. DVT prophylaxis: Omid attending - dr. Ruby inpatient need acute CHF exacerbation(HF with reduced Ef around 15-20%) renal function and electrolyte monitoring, tele monitor; close BP monitoring Time Spent With Patient Time: Total time managing care of this patient today ____ minutes. Quality Stroke Does the patient have a stroke diagnosis?: No VTE Prior VTE?: No VTE Risk Level:: Medical - moderate - high VTE Device Contraindication: Treatment Not Indicated VTE Drug Contraindication: N/A - Med Ordered
--- NOTE | 2022-05-05 11:48 | PM.PNCARD ---
Subjective Subjective Date of Service: 05/05/22 Principal diagnosis: CHF, atrial flutter Interval history: She is feeling better. Blood pressure has been low and her medications were held. Physical Exam Vital Signs: Last Vital Signs Temp 96.8 F 05/05/22 11:30 Pulse 66 05/05/22 11:30 Resp 16 05/05/22 11:30 BP 109/68 05/05/22 11:30 Pulse Ox 99 05/05/22 11:30 O2 Del Method 05/05/22 11:30 O2 Flow Rate 2.5 05/05/22 11:30 Oxygen Flow Rate 2 05/04/22 14:00 BMI result Body Mass Index 40.1 GENERAL APPEARANCE: In no acute distress. NECK: no carotid bruit, mild JVD. SKIN: no suspicious lesions, warm and dry. HEART: no murmurs, regular rate and rhythm. LUNGS: Crackles left base. ABDOMEN: soft, nontender. EXTREMITIES: 1+ edema. PERIPHERAL PULSES: equal. 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 Status post cardioversion in sinus rhythm. Continue amiodarone 200 mg daily. Blood pressure has been soft, she also tested positive while inpatient with coronavirus, not COVID-19. It is possible that the viral illness is also affecting her blood pressure but overall she is not tolerating the medications well. I think carvedilol should be stopped at this stage. Resume Aldactone at 12.5 mg daily. Torsemide 40 mg daily. Keep holding a valsartan. If she is stable on this regimen and can tolerate these medications without dizziness or lightheadedness then potentially discharge home and will add/restart medications as outpatient. Thank you for allowing me to participate in the care of your patient. Please feel free to contact me if you have any questions. Time Spent With Patient Time: Total time managing care of this patient today ____ minutes. Progress Note: Quality Stroke Does the patient have a stroke diagnosis?: No Procedures Date of Service Date of Service: 05/05/22
[2022-05-05 12:01] LABS: Glucose, Whole Blood 276 mg/dL (60-115)
[2022-05-05] MEDS: Spironolactone 25 MG TABLET 12.5 MG PO (12:13)
[2022-05-05] MEDS: Torsemide 20 MG TABLET 40 MG PO (12:19)
[2022-05-05 15:57] LABS: Glucose, Whole Blood 143 mg/dL (60-115)
[2022-05-05] MEDS: Acetaminophen 325 MG TABLET 975 MG PO (18:03)
[2022-05-05 20:12] LABS: Glucose, Whole Blood 258 mg/dL (60-115)
[2022-05-05] MEDS: Insulin Glargine,Hum.rec.anlog 100 UNIT/ML 10 ML VIAL 29 UNIT SUBCUT (21:22)
[2022-05-05] MEDS: Atorvastatin Calcium 40 MG TABLET PO (21:22)
[2022-05-06] VITALS (7 sets, daily range): BP systolic 94–138; BP diastolic 50–68; PULSE 62–74; RESP 14–19; TEMP 35.8–36.7; O2SAT 93–97; BMI 40.6
[2022-05-06 07:42] LABS: Glucose, Whole Blood 197 mg/dL (60-115)
[2022-05-06] MEDS: Insulin Lispro 100 UNIT/ML 3 ML VIAL SUBCUT ×4 (08:46→20:09)
[2022-05-06] MEDS: Insulin Lispro 100 UNIT/ML 3 ML VIAL 12 UNIT SUBCUT ×3 (08:46→16:54)
[2022-05-06] MEDS: Magnesium Oxide 400 MG TABLET 800 MG PO ×2 (08:47→16:54)
[2022-05-06] MEDS: Torsemide 20 MG TABLET 40 MG PO (08:47)
[2022-05-06] MEDS: 0.9 % Sodium Chloride Flush 3 ML SYRINGE IVFLUSH ×2 (08:48→23:42)
[2022-05-06] MEDS: Apixaban 5 MG TABLET PO ×2 (08:48→20:08)
[2022-05-06] MEDS: Spironolactone 25 MG TABLET 12.5 MG PO (08:51)
--- NOTE | 2022-05-06 09:26 | PM.PNNEP ---
Subjective Subjective Date of Service: 05/07/22 Principal diagnosis: CHF, atrial flutter Interval history: seen and examined this morning follow up for chf, hypotension Physical Exam Vital Signs: Vital Signs: Last Vital Signs Temp 96.5 F L 05/06/22 08:00 Pulse 62 05/06/22 08:00 Resp 14 05/06/22 08:00 BP 100/68 05/06/22 08:00 Pulse Ox 95 05/06/22 08:00 O2 Del Method 05/06/22 08:00 O2 Flow Rate 2 05/06/22 08:00 Oxygen Flow Rate 2 05/04/22 14:00 BMI result Body Mass Index 40.6 Const: General: no acute distress HEENT: Head: Yes normocephalic and Yes atraumatic Neck: Neck: Yes supple Resp: Auscultation: diminished lung sounds Cardio: Heart sounds: S1 normal heart sound present and S2 normal heart sound present GI: Palpation (GI): Soft to palpation and nontender Extrem: Right upper extremity: edema Objective Data Labs 04/26/22 20:54 05/03/22 08:08 Labs: Laboratory Results - last 24 hr 05/05/22 05/05/22 05/05/22 11:58 15:53 20:07 POC Glucose 276 H 143 H 258 H 05/06/22 07:04 POC Glucose 197 H Procedures Date of Service Date of Service: 05/06/22 Assessment & Plan Assessment and plan (1) LUIS FELIPE (acute kidney injury): Status: Acute (2) HFrEF (heart failure with reduced ejection fraction): Status: Acute (3) CKD (chronic kidney disease) stage 3, GFR 30-59 ml/min: Status: Acute Plan hypotensive LUIS FELIPE c/w cardio renal syndrome h/o CKD baseline Scr ~ 1.3 mg/dl known HFrEF LVEF 15-20% REC avoid hypotension diuresis per cardiology IF BP remains low, would hold Aldactone and try Lasix DRIP and keep O > I Time Spent With Patient Time: Total time managing care of this patient today ____ minutes. Progress Note: Quality Stroke Does the patient have a stroke diagnosis?: No
--- NOTE | 2022-05-06 09:40 | MHC.CM.PN ---
pt dcd home no skilled servceis ordered by
[2022-05-06 09:44] LABS: Anion Gap 15 (12-20); Blood Urea Nitrogen 42 mg/dL (9-16); Calcium 8.8 mg/dL (8.4-10.2); Carbon Dioxide 28 mmol/L (22-29); Chloride 95 mmol/L (96-108); Creatinine Clr Calc Pharmacy 46.9; Estimated Glomerular Filt Rate 36; Glucose Random 252 mg/dL (60-115); Potassium 4.4 mmol/L (3.3-5.1); Sodium 134 mmol/L (135-145)
[2022-05-06 09:58] LABS: B Type Natriuretic Peptide 255 pg/mL (<100)
--- NOTE | 2022-05-06 10:34 | P.PNIM_ITS ---
Subjective Subjective Date of Service: 05/06/22 Interval History: seen and examined this morning follow up for chf, hypotension bp still low still sob Review of Systems Review of Systems: Yes all other systems are reviewed and are negative Constitutional Constitutional: Denies chills and Denies fever(s) Cardiovascular Cardiovascular: Denies chest pain, Denies palpitations and Denies dyspnea Respiratory Respiratory: Denies cough and Denies dyspnea Gastrointestinal Gastrointestinal: Denies abdominal pain Endocrine Endocrine: Denies palpitations Physical Exam Vital Signs: Vital Signs: Last Vital Signs Temp 96.5 F L 05/06/22 08:00 Pulse 62 05/06/22 08:00 Resp 14 05/06/22 08:00 BP 100/68 05/06/22 08:00 Pulse Ox 95 05/06/22 08:00 O2 Del Method 05/06/22 08:00 O2 Flow Rate 2 05/06/22 08:00 Oxygen Flow Rate 2 05/04/22 14:00 BMI result Body Mass Index 40.6 Appearing in no acute distress lung sounds are clear to auscultation heart regular rate rhythm, clear S1, S2 positive bowel sounds, abdomen is soft, nontender neuro patient is alert x3, no focal deficits Objective Data Active Medications Acetaminophen (Acetaminophen 325 Mg Tablet) 975 mg PO Q6H PRN PRN Reason: Pain, Mild (Pain Scale 1-3) Last Admin: 05/05/22 18:03 Dose: 975 mg Documented By: GLENDY Albuterol Sulfate (Albuterol Sulfate 90 Mcg 8 Gm Inhaler) 2 puff INHALE Q6H PRN PRN Reason: Shortness of Breath Last Admin: 05/04/22 20:41 Dose: 2 puff Documented By: MARIO Apixaban (Apixaban 5 Mg Tablet) 5 mg PO BID [facility] Last Admin: 05/06/22 08:48 Dose: 5 mg Documented By: RAMON Atorvastatin Calcium (Atorvastatin Calcium 40 Mg Tablet) 40 mg PO BEDTIME [facility] Last Admin: 05/05/22 21:22 Dose: 40 mg Documented By: EDD Dextrose (Dextrose 50 % 25 Gm/50 Ml Syringe) 25 gm IVPUSH Q15M PRN; Protocol PRN Reason: per Hypoglycemia Standing Ord. Gabapentin (Gabapentin 100 Mg Capsule) 100 mg PO BID [facility] Last Admin: 05/06/22 08:47 Dose: Not Given Documented By: RAMON Non-Admin Reason: Patient Refused Glucose (Glucose Gel 15 Gm Gel..Gram.) 15 gm PO Q15M PRN; Protocol PRN Reason: per Hypoglycemia Standing Ord. Furosemide 200 mg/ Sodium (Chloride) 100 mls @ 2.5 mls/hr IVCONT .Q24H [facility] Insulin Glargine (Insulin Glargine,Hum.Rec.Anlog 100 Unit/Ml 10 Ml Vial) 29 unit SUBCUT BEDTIME [facility] Last Admin: 05/05/22 21:22 Dose: 29 unit Documented By: EDD Insulin Human Lispro (Insulin Lispro 100 Unit/Ml 3 Ml Vial) 12 unit SUBCUT TIDAC [facility] Last Admin: 05/06/22 08:46 Dose: 12 unit Documented By: RAMON Insulin Human Lispro (Insulin Lispro 100 Unit/Ml 3 Ml Vial) 0 unit SUBCUT QIDACHS [facility]; Protocol Last Admin: 05/06/22 08:46 Dose: 2 unit Documented By: RAMON Magnesium Oxide (Magnesium Oxide 400 Mg Tablet) 800 mg PO BIDPC [facility] Last Admin: 05/06/22 08:47 Dose: 800 mg Documented By: RAMON Pt Own (Amiodarone (200 Mg)) 200 mg PO DAILY [facility] Last Admin: 05/06/22 08:48 Dose: 200 mg Documented By: RAMON Nf Throat Lozenge- (Honey Lemon) 0 each BUCCAL Q2H PRN PRN Reason: Sore Throat Last Admin: 05/04/22 23:49 Dose: 1 each Documented By: MAROI Pharmacy Consult (Consult Rx Perform Med Rec) 1 each MISCELLANE ONCE PRN PRN Reason: Consult order Sodium Chloride (0.9 % Sodium Chloride Flush 3 Ml Syringe) 3 ml IVFLUSH QSHIFT [facility] Last Admin: 05/06/22 08:48 Dose: 3 ml Documented By: RAMON Spironolactone (Spironolactone 25 Mg Tablet) 12.5 mg PO DAILY [facility]; Protocol Last Admin: 05/06/22 08:51 Dose: 12.5 mg Documented By: RAMON Torsemide (Torsemide 20 Mg Tablet) 40 mg PO DAILY [facility]; Protocol Last Admin: 05/06/22 08:47 Dose: 40 mg Documented By: RAMON Labs 04/26/22 20:54 05/06/22 09:14 Labs: Laboratory Results - last 24 hr 05/05/22 05/05/22 05/05/22 11:58 15:53 20:07 Anion Gap Estim Creat Clear Calc Estimated GFR POC Glucose 276 H 143 H 258 H Random Glucose Calcium B-Natriuretic Peptide 05/06/22 05/06/22 05/06/22 07:04 09:14 09:14 Anion Gap 15 Estim Creat Clear Calc 46.9 Estimated GFR 36 POC Glucose 197 H Random Glucose 252 H Calcium 8.8 B-Natriuretic Peptide 255 H Assessment and Plan (1) HFrEF (heart failure with reduced ejection fraction): Status: Acute (2) LUIS FELIPE (acute kidney injury): Status: Acute (3) Acute exacerbation of CHF (congestive heart failure): Status: Acute Plan 67-year-old female past medical history of CHF with reduced ejection fraction presents to the hospital with complaints of shortness of breath, as well as lower extremity swelling found to have acute CHF exacerbation Hypotension. stable Patient continues to be in heart failure and will need diuresis, started IV Lasix drip which hopefully will not affect blood pressure as much continue to hold coreg, valsartan and torsemide follow bp closely acute CHF exacerbation (CHF with reduced Ef around 15-20%) 8.9 liter neg leg edema improving continue low-sodium diet cardiology following plan for IV Lasix drip at 5 mg an hour due to continued heart failure and elevated pulmonary pressures, discussed with Nephrology acute respiratory failure with hypoxia likely r/t URI - tested + for coronavirus (not COVID 19) repeat CXR negative wean oxygen as tolerated symptomatic management chronic AFib/a flutter s/p cardioversion 05/01 continue Eliquis and carvedilol, amiodarone luis felipe on ckd 3. Trending down baseline scr around 1.3 nephrology following monitor renal function an electrolytes diabetes dm diet continue home insulin regimen and SSI qtc prolong ? chronic improving keep k>4 and mag>2 monitor electrolytes continue magnesium supplements to keep mag>2 morbid obesity Encouraged to lose weight. DVT prophylaxis: Omid attending - dr. Hayes inpatient need acute CHF exacerbation(HF with reduced Ef around 15-20%) renal function and electrolyte monitoring, tele monitor; close BP monitoring Time Spent With Patient Time: Total time managing care of this patient today ____ minutes. Quality Stroke Does the patient have a stroke diagnosis?: No VTE Prior VTE?: No VTE Risk Level:: Medical - moderate - high VTE Device Contraindication: Treatment Not Indicated VTE Drug Contraindication: N/A - Med Ordered
--- NOTE | 2022-05-06 10:48 | P.PNCA_ITS ---
Subjective Subjective Date of Service: 05/06/22 Principal diagnosis: CHF, atrial flutter Interval history: She states that she feels short of breath with activity. Some improvement from admission but not back to baseline. Review of Systems Review of Systems Yes all other systems are reviewed and are negative Constitutional: Reports as per HPI Eyes: Reports as per HPI Reports as per HPI Cardiovascular: Reports as per HPI, Denies acrocyanosis, Denies cool extremities, Denies chest pain, Denies leg edema, Denies lightheadedness, Denies palpitations and Reports dyspnea Respiratory: Reports as per HPI, Reports no additional respiratory complaints and Reports dyspnea Gastrointestinal: Reports as per HPI and Reports no additional gastrointestinal complaints Genitourinary: Reports as per HPI Musculoskeletal: Reports no additional musculoskeletal complaints and Reports as per HPI Skin/Breast: Reports system reviewed and no additional complaints, except as docu Reports system reviewed and no additional complaints, except as documented and Reports as per HPI Psychiatric: Reports no additional psychiatric complaints and Reports as per HPI Endocrine: Reports no additional endocrine complaints, Reports as per HPI and Denies palpitations Hematologic/Lymphatic: Reports no additional hematologic/lymphatic complaints and Reports as per HPI Allergic/Immunologic: Reports no additional allergic/immunologic complaints and Reports as per HPI Physical Exam Vital Signs: Last Vital Signs Temp 96.5 F L 05/06/22 08:00 Pulse 62 05/06/22 08:00 Resp 14 05/06/22 08:00 BP 100/68 05/06/22 08:00 Pulse Ox 95 05/06/22 08:00 O2 Del Method 05/06/22 08:00 O2 Flow Rate 2 05/06/22 08:00 Oxygen Flow Rate 2 05/04/22 14:00 BMI result Body Mass Index 40.6 Const General: comfortable and no acute distress Orientation/consciousness: patient oriented x3 HEENT Other: Unremarkable Head: Yes normal to inspection Neck Neck: Yes normal visual inspection Chest Chest palpation & inspection: normal inspection of the chest Resp Auscultation: clear to auscultation bilaterally Cardio Palpation: normal PMI Heart sounds: S1 normal heart sound present, S2 normal heart sound present, no gallops, no murmurs and no rubs GI Palpation (GI): Soft to palpation Back/Spine/Pelvis Other: unremarkable Skin General skin exam: no rashes or lesions noted Neuro General: patient oriented x3 Extrem Other: some swelling, but not profound. General: Yes normal to inspection Psych Mental Status: mental status grossly normal Objective Labs and Meds 04/26/22 20:54 05/06/22 09:14 Lab results: Laboratory Results - last 24 hr 05/05/22 05/05/22 05/05/22 11:58 15:53 20:07 Sodium Potassium Chloride Carbon Dioxide Anion Gap BUN Creatinine Estim Creat Clear Calc Estimated GFR POC Glucose 276 H 143 H 258 H Random Glucose Calcium B-Natriuretic Peptide 05/06/22 05/06/22 05/06/22 07:04 09:14 09:14 Sodium 134 L Potassium 4.4 Chloride 95 L Carbon Dioxide 28 Anion Gap 15 BUN 42 H Creatinine 1.46 H Estim Creat Clear Calc 46.9 Estimated GFR 36 POC Glucose 197 H Random Glucose 252 H Calcium 8.8 B-Natriuretic Peptide 255 H Imaging Radiologist's impression: Impressions Chest X-Ray 05/06/22 09:30 IMPRESSION: 1. Mild cephalization pulmonary vascularity suggesting elevated pulmonary venous pressures. 2. Trace blunting costophrenic angles, likely trace effusions. 3. No airspace consolidation or groundglass opacity. Progress Note: A&P Assessment and plan (1) Acute on chronic systolic and diastolic heart failure, NYHA class 3: Status: Acute (2) Atrial flutter: Status: Acute Plan Per last echocardiogram from March, LVEF 15-20% and suspected ischemic cardiom yopathy. Cardiomyopathy probably from some combination of ischemic as well as atrial arrhythmias. Now status post cardioversion. Remains in sinus rhythm. Continue amiodarone/Eliquis. With regard diuretics, it seems that she has been resumed on IV diuretics with IV Lasix drip. So far, she has been negative 9L. Will follow up with you. Discussed with Mine [facility]. Time Spent With Patient Time: Total time managing care of this patient today 45 minutes. Progress Note: Quality Stroke Does the patient have a stroke diagnosis?: No Procedures Date of Service Date of Service: 05/06/22
[2022-05-06 11:06] LABS: Glucose, Whole Blood 226 mg/dL (60-115)
[2022-05-06] MEDS: Furosemide 200 MG in 0.9 % Sodium Chloride 80 ML IVCONT (11:53)
[2022-05-06 15:30] LABS: Glucose, Whole Blood 176 mg/dL (60-115)
[2022-05-06] MEDS: Albuterol Sulfate 90 MCG 8 GM INHALER 2 PUFF INHALE (16:58)
[2022-05-06 19:23] LABS: Glucose, Whole Blood 167 mg/dL (60-115)
[2022-05-06] MEDS: Atorvastatin Calcium 40 MG TABLET PO (20:08)
[2022-05-06] MEDS: Insulin Glargine,Hum.rec.anlog 100 UNIT/ML 10 ML VIAL 29 UNIT SUBCUT (20:09)
[2022-05-07] VITALS (7 sets, daily range): BP systolic 103–117; BP diastolic 54–66; PULSE 61–70; RESP 15–20; TEMP 36.1–37.1; O2SAT 95–99; BMI 40.8
[2022-05-07 07:30] LABS: Glucose, Whole Blood 194 mg/dL (60-115)
[2022-05-07] MEDS: Spironolactone 25 MG TABLET 12.5 MG PO (08:48)
[2022-05-07] MEDS: Gabapentin 100 MG CAPSULE PO ×2 (08:48→20:21)
[2022-05-07] MEDS: Magnesium Oxide 400 MG TABLET 800 MG PO ×2 (08:48→16:25)
[2022-05-07] MEDS: Apixaban 5 MG TABLET PO ×2 (08:48→20:21)
[2022-05-07] MEDS: Insulin Lispro 100 UNIT/ML 3 ML VIAL 12 UNIT SUBCUT ×3 (08:49→16:26)
[2022-05-07] MEDS: Insulin Lispro 100 UNIT/ML 3 ML VIAL SUBCUT ×4 (08:49→20:22)
[2022-05-07] MEDS: 0.9 % Sodium Chloride Flush 3 ML SYRINGE IVFLUSH ×2 (08:49→16:25)
--- NOTE | 2022-05-07 09:56 | P.PNIM_ITS ---
Subjective Subjective Date of Service: 05/07/22 Interval History: seen and examined this morning follow up for chf, hypotension feeling better today Review of Systems Review of Systems: Yes all other systems are reviewed and are negative Constitutional Constitutional: Denies chills and Denies fever(s) Cardiovascular Cardiovascular: Denies chest pain, Denies palpitations and Denies dyspnea Respiratory Respiratory: Denies cough and Denies dyspnea Gastrointestinal Gastrointestinal: Denies abdominal pain Endocrine Endocrine: Denies palpitations Physical Exam Vital Signs: Vital Signs: Last Vital Signs Temp 97.8 F 05/07/22 07:30 Pulse 68 05/07/22 07:30 Resp 20 05/07/22 07:30 BP 103/66 05/07/22 07:30 Pulse Ox 97 05/07/22 07:30 O2 Del Method 05/07/22 07:30 O2 Flow Rate 2 05/07/22 07:30 Oxygen Flow Rate 2 05/06/22 14:00 BMI result Body Mass Index 40.8 Appearing in no acute distress lung sounds are clear to auscultation heart regular rate rhythm, clear S1, S2 positive bowel sounds, abdomen is soft, nontender neuro patient is alert x3, no focal deficits Objective Data Active Medications Acetaminophen (Acetaminophen 325 Mg Tablet) 975 mg PO Q6H PRN PRN Reason: Pain, Mild (Pain Scale 1-3) Last Admin: 05/05/22 18:03 Dose: 975 mg Documented By: GLENDY Albuterol Sulfate (Albuterol Sulfate 90 Mcg 8 Gm Inhaler) 2 puff INHALE Q6H PRN PRN Reason: Shortness of Breath Last Admin: 05/06/22 16:58 Dose: 2 puff Documented By: ANA CRISTINA Apixaban (Apixaban 5 Mg Tablet) 5 mg PO BID [facility] Last Admin: 05/07/22 08:48 Dose: 5 mg Documented By: BRENDA Atorvastatin Calcium (Atorvastatin Calcium 40 Mg Tablet) 40 mg PO BEDTIME [facility] Last Admin: 05/06/22 20:08 Dose: 40 mg Documented By: ANA CRISTINA Dextrose (Dextrose 50 % 25 Gm/50 Ml Syringe) 25 gm IVPUSH Q15M PRN; Protocol PRN Reason: per Hypoglycemia Standing Ord. Gabapentin (Gabapentin 100 Mg Capsule) 100 mg PO BID [facility] Last Admin: 05/07/22 08:48 Dose: 100 mg Documented By: BRENDA Glucose (Glucose Gel 15 Gm Gel..Gram.) 15 gm PO Q15M PRN; Protocol PRN Reason: per Hypoglycemia Standing Ord. Furosemide 200 mg/ Sodium (Chloride) 100 mls @ 2.5 mls/hr IVCONT .Q24H [facility] Last Admin: 05/06/22 11:53 Dose: 5 mg/hr, 2.5 mls/hr Documented By: RAMON Insulin Glargine (Insulin Glargine,Hum.Rec.Anlog 100 Unit/Ml 10 Ml Vial) 29 unit SUBCUT BEDTIME [facility] Last Admin: 05/06/22 20:09 Dose: 29 unit Documented By: ANA CRISTINA Insulin Human Lispro (Insulin Lispro 100 Unit/Ml 3 Ml Vial) 12 unit SUBCUT TIDAC [facility] Last Admin: 05/07/22 08:49 Dose: 12 unit Documented By: BRENDA Insulin Human Lispro (Insulin Lispro 100 Unit/Ml 3 Ml Vial) 0 unit SUBCUT QIDACHS [facility]; Protocol Last Admin: 05/07/22 08:49 Dose: 2 unit Documented By: BRENDA Magnesium Oxide (Magnesium Oxide 400 Mg Tablet) 800 mg PO BIDPC [facility] Last Admin: 05/07/22 08:48 Dose: 800 mg Documented By: BRENDA Pt Own (Amiodarone (200 Mg)) 200 mg PO DAILY [facility] Last Admin: 05/07/22 08:48 Dose: 200 mg Documented By: BRENDA Nf Throat Lozenge- (Honey Lemon) 0 each BUCCAL Q2H PRN PRN Reason: Sore Throat Last Admin: 05/04/22 23:49 Dose: 1 each Documented By: MARIO Pharmacy Consult (Consult Rx Perform Med Rec) 1 each MISCELLANE ONCE PRN PRN Reason: Consult order Sodium Chloride (0.9 % Sodium Chloride Flush 3 Ml Syringe) 3 ml IVFLUSH QSHIFT [facility] Last Admin: 05/07/22 08:49 Dose: 3 ml Documented By: BRENDA Spironolactone (Spironolactone 25 Mg Tablet) 12.5 mg PO DAILY [facility]; Protocol Last Admin: 05/07/22 08:48 Dose: 12.5 mg Documented By: BRENDA Torsemide (Torsemide 20 Mg Tablet) 40 mg PO DAILY [facility]; Protocol Last Admin: 05/06/22 08:47 Dose: 40 mg Documented By: RAMON Labs 04/26/22 20:54 05/06/22 09:14 Labs: Laboratory Results - last 24 hr 05/06/22 05/06/22 05/06/22 09:14 10:58 15:26 POC Glucose 226 H 176 H B-Natriuretic Peptide 255 H 05/06/22 05/07/22 19:15 07:20 POC Glucose 167 H 194 H B-Natriuretic Peptide Assessment and Plan (1) HFrEF (heart failure with reduced ejection fraction): Status: Acute (2) LUIS FELIPE (acute kidney injury): Status: Acute (3) Acute exacerbation of CHF (congestive heart failure): Status: Acute Plan 67-year-old female past medical history of CHF with reduced ejection fraction presents to the hospital with complaints of shortness of breath, as well as lower extremity swelling found to have acute CHF exacerbation Hypotension. stable continue IV Lasix drip which hopefully will not affect blood pressure as much as bolus doses did continue to hold coreg, valsartan and torsemide stop drip tomorrow and switch back to torsemide vs oral lasix follow bp closely acute CHF exacerbation (CHF with reduced Ef around 15-20%) 8.9 liter neg leg edema improving continue low-sodium diet cardiology following IV Lasix drip at 5 mg an hour due to continued heart failure and elevated pulmonary pressures, discussed with Nephrology acute respiratory failure with hypoxia likely r/t URI - tested + for coronavirus (not COVID 19) repeat CXR negative wean oxygen as tolerated symptomatic management chronic AFib/a flutter s/p cardioversion 05/01 continue Eliquis and carvedilol, amiodarone luis felipe on ckd 3. Trending down baseline scr around 1.3 nephrology following monitor renal function an electrolytes diabetes dm diet continue home insulin regimen and SSI qtc prolong ? chronic improving keep k>4 and mag>2 monitor electrolytes continue magnesium supplements to keep mag>2 morbid obesity Encouraged to lose weight. DVT prophylaxis: Omid attending - dr. Hayes inpatient need acute CHF exacerbation(HF with reduced Ef around 15-20%) renal function and electrolyte monitoring, tele monitor; close BP monitoring Time Spent With Patient Time: Total time managing care of this patient today ____ minutes. Quality Stroke Does the patient have a stroke diagnosis?: No VTE Prior VTE?: No VTE Risk Level:: Medical - moderate - high VTE Device Contraindication: Treatment Not Indicated VTE Drug Contraindication: N/A - Med Ordered
--- NOTE | 2022-05-07 10:09 | PM.PNCARD ---
Subjective Subjective Date of Service: 05/07/22 Principal diagnosis: CHF, atrial flutter Interval history: She states she is feeling better. Shortness of breath is improved. Review of Systems Review of Systems Yes all other systems are reviewed and are negative Constitutional: Reports as per HPI Eyes: Reports as per HPI Reports as per HPI Cardiovascular: Reports as per HPI, Denies acrocyanosis, Denies cool extremities, Denies chest pain, Denies leg edema, Denies lightheadedness, Denies palpitations and Denies dyspnea Respiratory: Reports as per HPI, Reports no additional respiratory complaints and Denies dyspnea Gastrointestinal: Reports as per HPI and Reports no additional gastrointestinal complaints Genitourinary: Reports as per HPI Musculoskeletal: Reports no additional musculoskeletal complaints and Reports as per HPI Skin/Breast: Reports system reviewed and no additional complaints, except as docu Reports system reviewed and no additional complaints, except as documented and Reports as per HPI Psychiatric: Reports no additional psychiatric complaints and Reports as per HPI Endocrine: Reports no additional endocrine complaints, Reports as per HPI and Denies palpitations Hematologic/Lymphatic: Reports no additional hematologic/lymphatic complaints and Reports as per HPI Allergic/Immunologic: Reports no additional allergic/immunologic complaints and Reports as per HPI Physical Exam Vital Signs: Last Vital Signs Temp 97.8 F 05/07/22 07:30 Pulse 68 05/07/22 07:30 Resp 20 05/07/22 07:30 BP 103/66 05/07/22 07:30 Pulse Ox 97 05/07/22 07:30 O2 Del Method 05/07/22 07:30 O2 Flow Rate 2 05/07/22 07:30 Oxygen Flow Rate 2 05/06/22 14:00 BMI result Body Mass Index 40.8 Const General: comfortable and no acute distress Orientation/consciousness: patient oriented x3 HEENT Other: Unremarkable Head: Yes normal to inspection Neck Neck: Yes normal visual inspection Chest Chest palpation & inspection: normal inspection of the chest Resp Auscultation: clear to auscultation bilaterally Cardio Palpation: normal PMI Heart sounds: S1 normal heart sound present, S2 normal heart sound present, no gallops, no murmurs and no rubs GI Palpation (GI): Soft to palpation Back/Spine/Pelvis Other: unremarkable Skin General skin exam: no rashes or lesions noted Neuro General: patient oriented x3 Extrem General: Yes normal to inspection Psych Mental Status: mental status grossly normal Objective Labs and Meds 04/26/22 20:54 05/06/22 09:14 Lab results: Laboratory Results - last 24 hr 05/06/22 05/06/22 05/06/22 10:58 15:26 19:15 POC Glucose 226 H 176 H 167 H 05/07/22 07:20 POC Glucose 194 H Progress Note: A&P Assessment and plan (1) Acute on chronic systolic and diastolic heart failure, NYHA class 3: Status: Acute (2) Atrial flutter: Status: Acute Plan Per last echocardiogram from March, LVEF 15-20% and suspected ischemic cardiomyopathy. Cardiomyopathy probably from some combination of ischemic as well as atrial arrhythmias. Now status post cardioversion. Remains in sinus rhythm. Continue amiodarone/Eliquis. With regard to heart failure, she states that she is much improved. Volume status also looks better. Hence we can stop the Lasix drip. Switch her to oral torsemide. Probably keep her for another day or so and see how she does on oral medications. So far, she is -9.7 L since the time of admission. Most recent creatinine is 1.46. BUN was 42. Cardiac BNP is about her baseline. Discussed with [facility]. Time Spent With Patient Time: Total time managing care of this patient today ____ minutes. Progress Note: Quality Stroke Does the patient have a stroke diagnosis?: No Procedures Date of Service Date of Service: 05/07/22
--- NOTE | 2022-05-07 10:10 | PM.PNNEP ---
Subjective Subjective Date of Service: 05/08/22 Principal diagnosis: CHF, atrial flutter Interval history: On LAsix drip Responding well BP acceptable Physical Exam Vital Signs: Vital Signs: Last Vital Signs Temp 97.8 F 05/07/22 07:30 Pulse 68 05/07/22 07:30 Resp 20 05/07/22 07:30 BP 103/66 05/07/22 07:30 Pulse Ox 97 05/07/22 07:30 O2 Del Method 05/07/22 07:30 O2 Flow Rate 2 05/07/22 07:30 Oxygen Flow Rate 2 05/06/22 14:00 BMI result Body Mass Index 40.8 Const: General: no acute distress HEENT: Head: Yes normocephalic and Yes atraumatic Neck: Neck: Yes supple Resp: Auscultation: diminished lung sounds Cardio: Heart sounds: S1 normal heart sound present and S2 normal heart sound present GI: Palpation (GI): Soft to palpation and nontender Extrem: Right upper extremity: edema Objective Data Labs 04/26/22 20:54 05/06/22 09:14 Labs: Laboratory Results - last 24 hr 05/06/22 05/06/22 05/06/22 10:58 15:26 19:15 POC Glucose 226 H 176 H 167 H 05/07/22 07:20 POC Glucose 194 H Procedures Date of Service Date of Service: 05/07/22 Assessment & Plan Assessment and plan (1) LUIS FELIPE (acute kidney injury): Status: Acute (2) HFrEF (heart failure with reduced ejection fraction): Status: Acute (3) CKD (chronic kidney disease) stage 3, GFR 30-59 ml/min: Status: Acute Plan hypotensive LUIS FELIPE c/w cardio renal syndrome h/o CKD baseline Scr ~ 1.3 mg/dl known HFrEF LVEF 15-20% REC avoid hypotension Keep on Lasix drip today and O > I If stable, switch to PO Lasix and DC tomorrow Hold Aldactone until BP stablizes and reintroduce gradually- can be done as outpatient Time Spent With Patient Time: Total time managing care of this patient today ____ minutes. Progress Note: Quality Stroke Does the patient have a stroke diagnosis?: No
[2022-05-07 11:00] LABS: Glucose, Whole Blood 251 mg/dL (60-115)
[2022-05-07] MEDS: Furosemide 200 MG in 0.9 % Sodium Chloride 80 ML IVCONT (11:08)
[2022-05-07 11:27] LABS: Appearance Urine Clear; Color Urine Yellow; Glucose Urine UA Negative (Negative); Leukocyte Esterase Urine Small (1+) (Negative); Nitrite Urine Negative (Negative); UMIC TRIGGER UACC YES; Urine Blood Negative (Negative); Urine Ketones Negative (Negative); Urine Protein Negative (Neg-Trace)
[2022-05-07 11:36] LABS: Bacteria Urine 4+ (None Seen); Hyaline Casts Urine 0-2 /LPF (0-2); RBC Urine 0-2 /HPF (0-2); Squamous Epithelial Cell Urine 0-2 /HPF (0-2); UACC Culture Trigger YES; WBC Urine 0-5 /HPF (0-5)
[2022-05-07 16:12] LABS: Glucose, Whole Blood 236 mg/dL (60-115)
[2022-05-07 20:05] LABS: Glucose, Whole Blood 260 mg/dL (60-115)
[2022-05-07] MEDS: Atorvastatin Calcium 40 MG TABLET PO (20:21)
[2022-05-07] MEDS: Insulin Glargine,Hum.rec.anlog 100 UNIT/ML 10 ML VIAL 29 UNIT SUBCUT (20:22)
[2022-05-08 04:00] VITALS: BP 96/58; PULSE 64; RESP 14; TEMP 36.3; O2SAT 95
[2022-05-08 07:13] LABS: Glucose, Whole Blood 191 mg/dL (60-115)
[2022-05-08 07:15] VITALS: BP 105/63; PULSE 66; RESP 20; TEMP 36.3; O2SAT 97
[2022-05-08] MEDS: Magnesium Oxide 400 MG TABLET 800 MG PO ×2 (08:06→16:36)
[2022-05-08] MEDS: Spironolactone 25 MG TABLET 12.5 MG PO (08:06)
[2022-05-08] MEDS: Apixaban 5 MG TABLET PO ×2 (08:06→20:45)
[2022-05-08] MEDS: Gabapentin 100 MG CAPSULE PO ×2 (08:06→20:45)
[2022-05-08] MEDS: Insulin Lispro 100 UNIT/ML 3 ML VIAL 12 UNIT SUBCUT ×3 (08:08→16:36)
[2022-05-08] MEDS: 0.9 % Sodium Chloride Flush 3 ML SYRINGE IVFLUSH ×3 (08:08→20:46)
[2022-05-08] MEDS: Insulin Lispro 100 UNIT/ML 3 ML VIAL SUBCUT ×4 (08:09→20:45)
--- NOTE | 2022-05-08 10:29 | PM.PNCARD ---
Subjective Subjective Date of Service: 05/08/22 Principal diagnosis: CHF, atrial flutter Interval history: She states that she is feeling better. Shortness of breath improved. Review of Systems Review of Systems Yes all other systems are reviewed and are negative Constitutional: Reports as per HPI and Reports no additional constitutional complaints Eyes: Reports as per HPI and Denies no additional eye complaints Denies system reviewed and no additional complaints, except as documented and Reports as per HPI Cardiovascular: Reports as per HPI, Reports no additional cardiovascular complaints, Denies acrocyanosis, Denies cool extremities, Denies chest pain, Denies leg edema, Denies lightheadedness, Denies palpitations and Denies dyspnea Respiratory: Reports as per HPI, Denies no additional respiratory complaints and Denies dyspnea Gastrointestinal: Reports as per HPI and Denies no additional gastrointestinal complaints Genitourinary: Reports as per HPI Musculoskeletal: Reports no additional musculoskeletal complaints and Reports as per HPI Skin/Breast: Reports system reviewed and no additional complaints, except as docu Reports system reviewed and no additional complaints, except as documented and Reports as per HPI Psychiatric: Reports no additional psychiatric complaints and Reports as per HPI Endocrine: Reports no additional endocrine complaints, Reports as per HPI and Denies palpitations Hematologic/Lymphatic: Reports no additional hematologic/lymphatic complaints and Reports as per HPI Allergic/Immunologic: Reports no additional allergic/immunologic complaints and Reports as per HPI Physical Exam Vital Signs: Last Vital Signs Temp 97.3 F 05/08/22 07:15 Pulse 66 05/08/22 07:15 Resp 20 05/08/22 07:15 BP 105/63 05/08/22 07:15 Pulse Ox 97 05/08/22 07:15 O2 Del Method 05/08/22 07:15 O2 Flow Rate 2 05/08/22 07:15 Oxygen Flow Rate 2 05/07/22 13:53 BMI result Body Mass Index 40.8 Const General: comfortable and no acute distress Orientation/consciousness: patient oriented x3 HEENT Other: Unremarkable Head: Yes normal to inspection Neck Neck: Yes normal visual inspection Chest Chest palpation & inspection: normal inspection of the chest Resp Other: Minimal crackles Auscultation: clear to auscultation bilaterally Cardio Palpation: normal PMI Heart sounds: S1 normal heart sound present, S2 normal heart sound present, no gallops, no murmurs and no rubs GI Palpation (GI): Soft to palpation Back/Spine/Pelvis Other: unremarkable Skin General skin exam: no rashes or lesions noted Neuro General: patient oriented x3 Extrem General: Yes normal to inspection Psych Mental Status: mental status grossly normal Objective Labs and Meds 04/26/22 20:54 05/06/22 09:14 Lab results: Laboratory Results - last 24 hr 05/07/22 05/07/22 05/07/22 10:53 11:00 16:08 POC Glucose 251 H 236 H Urine Color Yellow Urine Appearance Clear Urine pH 8.0 Ur Specific [place] 1.010 Urine Protein Negative Urine Glucose (UA) Negative Urine Ketones Negative Urine Blood Negative Urine Nitrite Negative Ur Leukocyte Esterase Small (1+) H Urine RBC 0-2 Urine WBC 0-5 Ur Squamous Epith Cells 0-2 Urine Bacteria 4+ Hyaline Casts 0-2 05/07/22 05/08/22 19:27 07:05 POC Glucose 260 H 191 H Urine Color Urine Appearance Urine pH Ur Specific [place] Urine Protein Urine Glucose (UA) Urine Ketones Urine Blood Urine Nitrite Ur Leukocyte Esterase Urine RBC Urine WBC Ur Squamous Epith Cells Urine Bacteria Hyaline Casts Progress Note: A&P Assessment and plan (1) Acute on chronic systolic and diastolic heart failure, NYHA class 3: Status: Acute Assessment and Plan: Clinically, she does look better. Can keep her on oral torsemide. Doses to be further adjusted as an outpatient based on symptoms. Otherwise, mainly due to blood pressure issues not on other guideline based medical therapy. Only on a small dose spironolactone. Again, based on how she does as an outpatient possibly add Entresto. Based on input/output chart, she is 13.8 L negative this admission. Creatinine 1.46. BUN 42. Last echocardiogram with LVEF 15-20%. (2) Atrial flutter: Status: Acute Assessment and Plan: Status post cardioversion. Continue amiodarone Eliquis. Plan Discussed with Dr. Aquino. Time Spent With Patient Time: Total time managing care of this patient today 47 minutes. Progress Note: Quality Stroke Does the patient have a stroke diagnosis?: No Procedures Date of Service Date of Service: 05/08/22
--- NOTE | 2022-05-08 10:46 | P.PNNP_ITS ---
Subjective Subjective Date of Service: 05/09/22 Principal diagnosis: CHF, atrial flutter Interval history: Events noted Physical Exam Vital Signs: Vital Signs: Last Vital Signs Temp 97.3 F 05/08/22 07:15 Pulse 66 05/08/22 07:15 Resp 20 05/08/22 07:15 BP 105/63 05/08/22 07:15 Pulse Ox 97 05/08/22 07:15 O2 Del Method 05/08/22 07:15 O2 Flow Rate 2 05/08/22 07:15 Oxygen Flow Rate 2 05/07/22 13:53 BMI result Body Mass Index 40.8 Const: General: no acute distress HEENT: Head: Yes normocephalic and Yes atraumatic Neck: Neck: Yes supple Resp: Auscultation: diminished lung sounds Cardio: Heart sounds: S1 normal heart sound present and S2 normal heart sound present GI: Palpation (GI): Soft to palpation and nontender Extrem: Right upper extremity: edema Objective Data Labs 04/26/22 20:54 05/06/22 09:14 Labs: Laboratory Results - last 24 hr 05/07/22 05/07/22 05/07/22 10:53 11:00 16:08 POC Glucose 251 H 236 H Urine Color Yellow Urine Appearance Clear Urine pH 8.0 Ur Specific [place] 1.010 Urine Protein Negative Urine Glucose (UA) Negative Urine Ketones Negative Urine Blood Negative Urine Nitrite Negative Ur Leukocyte Esterase Small (1+) H Urine RBC 0-2 Urine WBC 0-5 Ur Squamous Epith Cells 0-2 Urine Bacteria 4+ Hyaline Casts 0-2 05/07/22 05/08/22 19:27 07:05 POC Glucose 260 H 191 H Urine Color Urine Appearance Urine pH Ur Specific [place] Urine Protein Urine Glucose (UA) Urine Ketones Urine Blood Urine Nitrite Ur Leukocyte Esterase Urine RBC Urine WBC Ur Squamous Epith Cells Urine Bacteria Hyaline Casts Procedures Date of Service Date of Service: 05/08/22 Assessment & Plan Assessment and plan (1) LUIS FELIPE (acute kidney injury): Status: Acute (2) HFrEF (heart failure with reduced ejection fraction): Status: Acute (3) CKD (chronic kidney disease) stage 3, GFR 30-59 ml/min: Status: Acute Plan hypotensive LUIS FELIPE c/w cardio renal syndrome h/o CKD baseline Scr ~ 1.3 mg/dl known HFrEF LVEF 15-20% REC avoid hypotension Can switch to PO Lasix and DC Hold Aldactone until BP stablizes and reintroduce gradually- can be done as outpatient Time Spent With Patient Time: Total time managing care of this patient today ____ minutes. Progress Note: Quality Stroke Does the patient have a stroke diagnosis?: No
[2022-05-08 11:12] LABS: Glucose, Whole Blood 184 mg/dL (60-115)
[2022-05-08 11:19] VITALS: BP 101/65; PULSE 65; RESP 20; TEMP 36.1; O2SAT 94
[2022-05-08 14:00] VITALS: O2SAT 93
--- NOTE | 2022-05-08 14:33 | MHC.CM.PN ---
no dc at this time dc plan remanin s home no services
[2022-05-08 15:12] VITALS: BP 104/42; PULSE 69; RESP 18; TEMP 37; O2SAT 97
[2022-05-08 15:55] LABS: Glucose, Whole Blood 267 mg/dL (60-115)
--- NOTE | 2022-05-08 16:39 | HO.PM.IMPN ---
Subjective Subjective Date of Service: 05/08/22 Interval History: Feels better with Lasix drip extended 1 additional day. States voiding appropriately Review of Systems Denies chest pain Denies shortness of breath Denies nausea vomiting diarrhea Denies fever chills Physical Exam Vital Signs: Vital Signs: Last Vital Signs Temp 98.6 F 05/08/22 15:12 Pulse 69 05/08/22 15:12 Resp 18 05/08/22 15:12 BP 104/42 L 05/08/22 15:12 Pulse Ox 97 05/08/22 15:12 O2 Del Method 05/08/22 15:12 O2 Flow Rate 1 05/08/22 15:12 Oxygen Flow Rate 1 05/08/22 14:00 BMI result Body Mass Index 40.8 Const: Other: Awake alert oriented x3 no respiratory distress Resp: Other: Scant crackles bilaterally no wheezes or rhonchi Cardio: Other: No S4; positive S1-S2; no S3 murmurs rubs or gallops GI: Other: Soft nontender nondistended normoactive bowel sounds Extrem: Other: No edema bilaterally Objective Data Active Medications Acetaminophen (Acetaminophen 325 Mg Tablet) 975 mg PO Q6H PRN PRN Reason: Pain, Mild (Pain Scale 1-3) Last Admin: 05/05/22 18:03 Dose: 975 mg Documented By: GLENDY Albuterol Sulfate (Albuterol Sulfate 90 Mcg 8 Gm Inhaler) 2 puff INHALE Q6H PRN PRN Reason: Shortness of Breath Last Admin: 05/06/22 16:58 Dose: 2 puff Documented By: ANA CRISTINA Apixaban (Apixaban 5 Mg Tablet) 5 mg PO BID [facility] Last Admin: 05/08/22 08:06 Dose: 5 mg Documented By: BRENDA Atorvastatin Calcium (Atorvastatin Calcium 40 Mg Tablet) 40 mg PO BEDTIME [facility] Last Admin: 05/07/22 20:21 Dose: 40 mg Documented By: MARISOL Dextrose (Dextrose 50 % 25 Gm/50 Ml Syringe) 25 gm IVPUSH Q15M PRN; Protocol PRN Reason: per Hypoglycemia Standing Ord. Gabapentin (Gabapentin 100 Mg Capsule) 100 mg PO BID [facility] Last Admin: 05/08/22 08:06 Dose: 100 mg Documented By: BRENDA Glucose (Glucose Gel 15 Gm Gel..Gram.) 15 gm PO Q15M PRN; Protocol PRN Reason: per Hypoglycemia Standing Ord. Insulin Glargine (Insulin Glargine,Hum.Rec.Anlog 100 Unit/Ml 10 Ml Vial) 29 unit SUBCUT BEDTIME [facility] Last Admin: 05/07/22 20:22 Dose: 29 unit Documented By: MARISOL Insulin Human Lispro (Insulin Lispro 100 Unit/Ml 3 Ml Vial) 12 unit SUBCUT TIDAC [facility] Last Admin: 05/08/22 16:36 Dose: 12 unit Documented By: BRENDA Insulin Human Lispro (Insulin Lispro 100 Unit/Ml 3 Ml Vial) 0 unit SUBCUT QIDACHS [facility]; Protocol Last Admin: 05/08/22 16:37 Dose: 8 unit Documented By: BRENDA Magnesium Oxide (Magnesium Oxide 400 Mg Tablet) 800 mg PO BIDPC [facility] Last Admin: 05/08/22 16:36 Dose: 800 mg Documented By: BRENDA Pt Own (Amiodarone (200 Mg)) 200 mg PO DAILY [facility] Last Admin: 05/08/22 08:07 Dose: 200 mg Documented By: BRENDA Nf Throat Lozenge- (Honey Lemon) 0 each BUCCAL Q2H PRN PRN Reason: Sore Throat Last Admin: 05/04/22 23:49 Dose: 1 each Documented By: MARIO Pharmacy Consult (Consult Rx Perform Med Rec) 1 each MISCELLANE ONCE PRN PRN Reason: Consult order Sodium Chloride (0.9 % Sodium Chloride Flush 3 Ml Syringe) 3 ml IVFLUSH QSHIFT [facility] Last Admin: 05/08/22 16:37 Dose: 3 ml Documented By: BRENDA Spironolactone (Spironolactone 25 Mg Tablet) 12.5 mg PO DAILY [facility]; Protocol Last Admin: 05/08/22 08:06 Dose: 12.5 mg Documented By: BRENDA Torsemide (Torsemide 20 Mg Tablet) 40 mg PO DAILY [facility]; Protocol Last Admin: 05/06/22 08:47 Dose: 40 mg Documented By: RAMON Labs 04/26/22 20:54 05/06/22 09:14 Labs: Laboratory Results - last 24 hr 05/07/22 05/08/22 05/08/22 19:27 07:05 11:04 POC Glucose 260 H 191 H 184 H 05/08/22 15:13 POC Glucose 267 H Microbiology Microbiology Results: Microbiology 05/07/22 11:00 Urine Culture - Preliminary Urine clean catch - Urine perera top Gram negative bin Assessment and Plan (1) Acute on chronic systolic and diastolic heart failure, NYHA class 3: Status: Acute (2) Paroxysmal atrial fibrillation: Status: Acute (3) Essential hypertension: Status: Acute Plan 67-year-old female past medical history of CHF with reduced ejection fraction presents to the hospital with complaints of shortness of breath, as well as lower extremity swelling found to have acute CHF exacerbation. Started on Lasix drip and is currently centrally E L negative. 1.HTN/Hypotension improving -continue to hold coreg/valsartan/torsemide -follow clinically in add back therapies as appropriate 2.Acute CHF exacerbation (CHF with reduced Ef around 15-20%) -9 L negative -DC Lasix drip and restart torsemide -likely DC in a.m. if no exacerbation 3Chronic AFib/a flutter -s/p cardioversion 05/01 -continue Eliquis/carvedilol/amiodarone 4. LUIS FELIPE in backdrop of CKD 3 -slowly resolving -follow renals/divalents 5.DMII -acceptable control current therapies -lispro correctional scale -adjust as indicated Full code Omid Requires ongoing hospitalization to follow response to oral diuresis now that IV has been DC Time Spent With Patient Time: Total time managing care of this patient today ____ minutes. Quality Stroke Does the patient have a stroke diagnosis?: No VTE Prior VTE?: No VTE Risk Level:: Medical - moderate - high VTE Device Contraindication: Treatment Not Indicated VTE Drug Contraindication: N/A - Med Ordered
[2022-05-08 19:31] VITALS: BP 103/55; PULSE 71; RESP 18; TEMP 36.6; O2SAT 95
[2022-05-08 20:08] LABS: Glucose, Whole Blood 228 mg/dL (60-115)
[2022-05-08] MEDS: Atorvastatin Calcium 40 MG TABLET PO (20:45)
[2022-05-08] MEDS: Insulin Glargine,Hum.rec.anlog 100 UNIT/ML 10 ML VIAL 29 UNIT SUBCUT (20:45)
[2022-05-09] VITALS: BP 107/51; PULSE 64; RESP 14; TEMP 36.9; O2SAT 97
[2022-05-09 04:00] VITALS: BP 103/49; PULSE 61; RESP 14; O2SAT 95
[2022-05-09 06:33] LABS: MANUAL DIFF FLAG NO
[2022-05-09 06:38] LABS: Basophils Absolute Auto 0.1 X10*3/uL (0.0-0.2); Basophils Percent Auto 1.1 % (0-2); Eosinophils Absolute Auto 0.7 X10*3/uL (0.0-0.4); Eosinophils Percent Auto 8.1 % (0-4); Hematocrit 34.7 % (37.0-47.0); Hemoglobin 10.9 g/dl (12.0-16.0); Imm Gran Abs Auto 0.04 X10*3/uL (0.00-0.03); Imm Gran Pct Auto 0.5 % (0.0-0.4); Lymphocytes Absolute Auto 2.9 X10*3/uL (1.2-4.9); Mean Corpuscular HGB Conc 31.4 g/dl (31.0-35.0); Mean Corpuscular Hemoglobin 29.7 pg (27.0-33.0); Mean Corpuscular Volume 94.6 fL (80.0-98.0); Mean Platelet Volume 9.6 fL (9.4-12.3); Monocytes Absolute Auto 0.4 X10*3/uL (0.1-1.2); Monocytes Percent Auto 5.3 % (2-11); Neutrophils Absolute Auto 4.1 x10*3/uL (2.0-8.3); Platelet Count 261 X10*3/uL (160-400); Red Blood Count 3.67 X10*6/uL (4.20-5.50); Red Cell Distribution Width 14.9 % (11.0-16.0); White Blood Count 8.2 X10*3/uL (4.8-10.8)
[2022-05-09 07:28] LABS: Glucose, Whole Blood 172 mg/dL (60-115)
[2022-05-09 07:38] VITALS: BP 103/60; PULSE 62; RESP 20; TEMP 36; O2SAT 98
[2022-05-09 07:44] LABS: Alanine Aminotransferase 8 U/L (0-31); Albumin Level 3.3 g/dL (3.5-5.0); Alkaline Phosphatase 70 U/L (39-117); Anion Gap 14 (12-20); Aspartate Amino Transferase 6 U/L (5-31); Bilirubin Total 1.1 mg/dL (0.0-1.0); Blood Urea Nitrogen 36 mg/dL (9-16); Calcium 8.5 mg/dL (8.4-10.2); Carbon Dioxide 26 mmol/L (22-29); Chloride 100 mmol/L (96-108); Creatinine Clr Calc Pharmacy 46.8; Estimated Glomerular Filt Rate 36; Glucose Fasting 158 mg/dL (60-99); Potassium 4.4 mmol/L (3.3-5.1); Sodium 136 mmol/L (135-145); Total Protein 5.9 g/dL (6.5-8.0)
[2022-05-09] MEDS: Apixaban 5 MG TABLET PO (07:49)
[2022-05-09] MEDS: Torsemide 20 MG TABLET 40 MG PO (07:49)
[2022-05-09] MEDS: Spironolactone 25 MG TABLET 12.5 MG PO (07:50)
[2022-05-09] MEDS: Gabapentin 100 MG CAPSULE PO (07:52)
[2022-05-09] MEDS: Insulin Lispro 100 UNIT/ML 3 ML VIAL SUBCUT ×2 (07:53→11:57)
[2022-05-09] MEDS: 0.9 % Sodium Chloride Flush 3 ML SYRINGE IVFLUSH (07:53)
[2022-05-09] MEDS: Magnesium Oxide 400 MG TABLET 800 MG PO (07:53)
[2022-05-09] MEDS: Insulin Lispro 100 UNIT/ML 3 ML VIAL 12 UNIT SUBCUT ×2 (07:58→11:56)
[2022-05-09 11:14] LABS: Glucose, Whole Blood 207 mg/dL (60-115)
[2022-05-09 11:33] VITALS: BP 108/71; PULSE 92; RESP 20; TEMP 36.4; O2SAT 97
--- NOTE | 2022-05-09 13:23 | PM.PNNEP ---
Subjective Subjective Date of Service: 06/03/22 Principal diagnosis: CHF, atrial flutter Interval history: Events noted Feels better BP low Physical Exam Vital Signs: Vital Signs: Last Vital Signs Temp 97.5 F 05/09/22 11:33 Pulse 92 05/09/22 11:33 Resp 20 05/09/22 11:33 BP 108/71 05/09/22 11:33 Pulse Ox 97 05/09/22 11:33 O2 Del Method 05/09/22 11:33 O2 Flow Rate 1 05/09/22 07:38 Oxygen Flow Rate 1 05/08/22 14:00 BMI result Body Mass Index 40.8 Const: General: no acute distress HEENT: Head: Yes normocephalic and Yes atraumatic Neck: Neck: Yes supple Resp: Auscultation: diminished lung sounds Cardio: Heart sounds: S1 normal heart sound present and S2 normal heart sound present GI: Palpation (GI): Soft to palpation and nontender Extrem: Right upper extremity: edema Objective Data Labs 05/09/22 06:19 05/09/22 06:19 Labs: Laboratory Results - last 24 hr 05/08/22 05/08/22 05/09/22 15:13 19:29 06:19 WBC 8.2 RBC 3.67 L Hgb 10.9 L Hct 34.7 L MCV 94.6 MCH 29.7 MCHC 31.4 RDW 14.9 Plt Count 261 MPV 9.6 Immature Gran % (Auto) 0.5 H Neut % (Auto) 50.0 Lymph % (Auto) 35.0 [place] % (Auto) 5.3 Eos % (Auto) 8.1 H Baso % (Auto) 1.1 Lymph # (Auto) 2.9 [place] # (Auto) 0.4 Eos # (Auto) 0.7 H Baso # (Auto) 0.1 Abs Immat Gran (auto) 0.04 H Absolute Neuts (auto) 4.1 Absolute Nucleated RBC 0.000 Nucleated RBC % (auto) 0.0 Sodium Potassium Chloride Carbon Dioxide Anion Gap BUN Creatinine Estim Creat Clear Calc Estimated GFR POC Glucose 267 H 228 H Fasting Glucose Calcium Total Bilirubin AST ALT Alkaline Phosphatase Total Protein Albumin 05/09/22 05/09/22 05/09/22 06:19 07:17 11:09 WBC RBC Hgb Hct MCV MCH MCHC RDW Plt Count MPV Immature Gran % (Auto) Neut % (Auto) Lymph % (Auto) [place] % (Auto) Eos % (Auto) Baso % (Auto) Lymph # (Auto) [place] # (Auto) Eos # (Auto) Baso # (Auto) Abs Immat Gran (auto) Absolute Neuts (auto) Absolute Nucleated RBC Nucleated RBC % (auto) Sodium 136 Potassium 4.4 Chloride 100 Carbon Dioxide 26 Anion Gap 14 BUN 36 H Creatinine 1.47 H Estim Creat Clear Calc 46.8 Estimated GFR 36 POC Glucose 172 H 207 H Fasting Glucose 158 H Calcium 8.5 Total Bilirubin 1.1 H AST 6 ALT 8 Alkaline Phosphatase 70 Total Protein 5.9 L Albumin 3.3 L Microbiology Microbiology Results: Microbiology 05/07/22 11:00 Urine clean catch - Urine perera top Urine Culture - Final Escherichia coli Procedures Date of Service Date of Service: 05/09/22 Assessment & Plan Assessment and plan (1) LUIS FELIPE (acute kidney injury): Status: Resolved (2) HFrEF (heart failure with reduced ejection fraction): Status: Acute (3) CKD (chronic kidney disease) stage 3, GFR 30-59 ml/min: Status: Acute Plan hypotensive LUIS FELIPE c/w cardio renal syndrome h/o CKD baseline Scr ~ 1.3 mg/dl known HFrEF LVEF 15-20% Cr at baseline REC avoid hypotension Keep PO Torsemide Hold Aldactone until BP stablizes and reintroduce gradually- can be done as outpatient Time Spent With Patient Time: Total time managing care of this patient today ____ minutes. Progress Note: Quality Stroke Does the patient have a stroke diagnosis?: No
[2022-05-09 13:28] VITALS: O2SAT 93
--- NOTE | 2022-05-09 14:12 | P.DS_ITS ---
DS: Providers Provider Date of Service: 05/09/22 Date of admission: 04/27/22 05:42 Date of discharge: 05/09/22 Primary care physician: Lily Menjivar MD Consults: 04/27/22 05:42 Consult to Cardiology Routine Consulting Provider: Diego Valdez Reason for consultation: CHF Has provider been notified: No 04/29/22 08:17 Consult to Nephrology Routine Consulting Provider: Vikash Malin Reason for consultation: luis felipe/ckd on chf Has provider been notified: No DS: Diagnosis Discharge Diagnosis (1) LUIS FELIPE (acute kidney injury): Status: Acute (2) HFrEF (heart failure with reduced ejection fraction): Status: Acute (3) CKD (chronic kidney disease) stage 3, GFR 30-59 ml/min: Status: Acute DS: Summary Status at Discharge Cognitive/behavioral status at discharge: 67-year-old female with past medical history of CHF with ejection fraction of 15 20%, AFib/a flutter, HTN, IBS, history of endometrial carcinoma, diabetes presents the hospital complaints of shortness of breath.? Patient reports symptoms started about 5 days ago.? She reports that she was seen by Cardiology, earlier in the month, her retics would switch to bumetanide and spironolactone was added to days ago with no relief of her symptoms.? She reports lower extremity edema, cough with no sputum production, no fever or chills, she reports orthopnea and PND.? Reports the swelling has reached her abdomen and therefore decided to come to the hospital.? She denies having any nausea no vomiting, no abdominal pain, no urinary symptoms.? No numbness tingling.? No palpitations.? No chest pain. Hospital Course admitted to telemetry; seen by Cardiology. Maintained on a Lasix drip; diuresed a total of 13.8 L this admission. At this time she has been off the Lasix drip for 24 hours continues to have good response to oral Bumex. She will be discharged to home on previous Bumex doses and will follow-up with cardiology in office as scheduled Time Spent with Patient Time attestation: Total time managing care of this patient today ____ minutes. Discharge coordination time: Greater than 30 minutes Quality: Safe Use of Opioids Does Pt have an Active Cancer Diagnosis on the Problem List?: No Quality: Stroke Does the patient have a stroke diagnosis?: No Physical Exam Vital Signs: Vital Signs: Last Vital Signs Temp 97.5 F 05/09/22 11:33 Pulse 92 05/09/22 11:33 Resp 20 05/09/22 11:33 BP 108/71 05/09/22 11:33 Pulse Ox 93 05/09/22 13:28 O2 Del Method 05/09/22 13:28 O2 Flow Rate 1 05/09/22 07:38 Oxygen Flow Rate 1 05/08/22 14:00 BMI result Body Mass Index 40.8 Const: Other: awake alert no respiratory distress Resp: Other: clear to auscultation bilaterally no rales rhonchi or wheezes Cardio: Other: no S4; positive S1-S2; no S3 murmurs rubs or gallops GI: Other: soft nontender nondistended normoactive bowel sounds Extrem: Other: no edema bilaterally DS: Data Data Completed and Pending Completed studies during hospitalization [Text1]: Procedures Sabianist of Cardiac Rhythm, Single (03/12/22) Labs on day of discharge: Laboratory Results - last 24 hr 05/08/22 05/08/22 05/09/22 15:13 19:29 06:19 WBC 8.2 RBC 3.67 L Hgb 10.9 L Hct 34.7 L MCV 94.6 MCH 29.7 MCHC 31.4 RDW 14.9 Plt Count 261 MPV 9.6 Immature Gran % (Auto) 0.5 H Neut % (Auto) 50.0 Lymph % (Auto) 35.0 [place] % (Auto) 5.3 Eos % (Auto) 8.1 H Baso % (Auto) 1.1 Lymph # (Auto) 2.9 [place] # (Auto) 0.4 Eos # (Auto) 0.7 H Baso # (Auto) 0.1 Abs Immat Gran (auto) 0.04 H Absolute Neuts (auto) 4.1 Absolute Nucleated RBC 0.000 Nucleated RBC % (auto) 0.0 Sodium Potassium Chloride Carbon Dioxide Anion Gap BUN Creatinine Estim Creat Clear Calc Estimated GFR POC Glucose 267 H 228 H Fasting Glucose Calcium Total Bilirubin AST ALT Alkaline Phosphatase Total Protein Albumin 05/09/22 05/09/22 05/09/22 06:19 07:17 11:09 WBC RBC Hgb Hct MCV MCH MCHC RDW Plt Count MPV Immature Gran % (Auto) Neut % (Auto) Lymph % (Auto) [place] % (Auto) Eos % (Auto) Baso % (Auto) Lymph # (Auto) [place] # (Auto) Eos # (Auto) Baso # (Auto) Abs Immat Gran (auto) Absolute Neuts (auto) Absolute Nucleated RBC Nucleated RBC % (auto) Sodium 136 Potassium 4.4 Chloride 100 Carbon Dioxide 26 Anion Gap 14 BUN 36 H Creatinine 1.47 H Estim Creat Clear Calc 46.8 Estimated GFR 36 POC Glucose 172 H 207 H Fasting Glucose 158 H Calcium 8.5 Total Bilirubin 1.1 H AST 6 ALT 8 Alkaline Phosphatase 70 Total Protein 5.9 L Albumin 3.3 L Discharge Plan Discharge Anticipated Discharge Date/Time: 05/09/22 13:58 Patient Disposition: Home, Self-Care Discharge Diagnosis: acute exacerbation of systolic congestive heart failure Referrals: Lily Menjivar MD [Primary Care Provider] - 1 Week Discharge Medications: Continued (DME) FreeStyle Lite Strips Strip See Rx Instructions .Route Qty: 100 5RF Rx Instructions: As directed check sugar twice a day before meals (DME) insulin syringe-needle U-100 [BD Veo Insulin Syringe UF] 1/2 mL 31 gauge x 15/64 syringe See Rx Instructions .Route Qty: 200 1RF Rx Instructions: As directed twice a day (DME) pen needle, diabetic [BD Ultra-Fine Short Pen Needle] 31 gauge x 5/16 needle See Rx Instructions .ROUTE .COMPLEX Qty: 100 3RF Dose Instruction: USE 1 PEN NEEDLE ONCE DAILY WITH LANTUS INSULIN Rx Instructions: USE 1 PEN NEEDLE ONCE DAILY WITH LANTUS INSULIN gabapentin 100 mg capsule 100 mg PO BID Qty: 60 0RF insulin lispro 100 unit/mL insulin pen 12 unit subcut TIDAC Rx Instructions: administer before meals Jardiance 25 mg tablet 1 tab PO DAILY insulin degludec [Tresiba FlexTouch U-100] 100 unit/mL (3 mL) insulin pen 42 unit subcut BEDTIME Trulicity 1.5 mg/0.5 mL Pen Injector 1.5 mg SUBCUT WE@0900 Eliquis 5 mg Tablet 5 mg PO BID Qty: 60 0RF carvedilol 6.25 mg tablet 1 tab PO BID valsartan 80 mg Tablet 80 mg PO BID Qty: 60 0RF Protocol: Hold for SBP< HOLD for SBP < : 90 atorvastatin 40 mg tablet 40 mg PO BEDTIME (DME) blood-glucose meter [FreeStyle Lite Meter] Kit See Rx Instructions .Route Rx Instructions: As directed (DME) lancets [FreeStyle Lancets] 28 gauge misc See Rx Instructions .Route Rx Instructions: As directed amiodarone 200 mg tablet 200 mg PO DAILY Rx Instructions: LOADING DOSE: Take 400mg twice a day then 2/ it will be 200mg once daily Make sure these are dye free tablets bumetanide 2 mg tablet 2 mg PO BID Qty: 90 3RF spironolactone 25 mg tablet 25 mg PO DAILY Qty: 60 3RF Discharge Orders: Discharge Order (Routine); Ordered 05/09/22 Ordered By: Fran Aquino Diet: Advance to usual diet Activity on Discharge: As tolerated Stand Alone Forms: Patient Portal Discharge page Care Plan Goals: resume all medicines as taken before entering the hospital Health Concerns: follow-up cardiology 2 weeks Plan of Treatment: follow daily weights; report Cardiology as instructed Assessment: see discharge summary
--- NOTE | 2022-05-09 14:20 | MHC.CM.PN ---
IMM 05/09/22 Patient is discharged to home self care. She has arranged for transportation home. Patient is appropriate for the discharge lounge. T/w met with the patient earlier re [facility]. A gift shop coupon has been provided to the patient. The nurse is aware that [facility].
== END 2022-05-09 16:45 | disposition home or self-care (01) | DRG 291 ==
LOC: HO.ED 04-27 05:49 → HO.EDOVER 04-27 05:52 → HO.IMC 04-27 17:06
PROVIDERS: Internal Medicine; Internal Medicine Cardiovascular Disease; Nurse Practitioner Acute Care; Physician Assistant Medical; Admitting Provider Internal Medicine; Emergency Provider Emergency Medicine; PCP Internal Medicine; Visit Provider Hospitalist
PROC: 5A2204Z Restoration of Cardiac Rhythm, Single (ICD-10-PCS; principal; 2022-05-01 14:30)
DX: I13.0 Hypertensive heart and chronic kidney disease with heart failure and stage 1 through stage 4 chronic kidney disease, or unspecified chronic kidney disease (principal); I50.23 Acute on chronic systolic (congestive) heart failure; J96.01 Acute respiratory failure with hypoxia; I48.19 Other persistent atrial fibrillation; N17.9 Acute kidney failure, unspecified; Z68.41 Body mass index [BMI] 40.0-44.9, adult; N18.30 Chronic kidney disease, stage 3 unspecified; E11.22 Type 2 diabetes mellitus with diabetic chronic kidney disease; E11.65 Type 2 diabetes mellitus with hyperglycemia; I25.10 Atherosclerotic heart disease of native coronary artery without angina pectoris; E66.01 Morbid (severe) obesity due to excess calories; I95.9 Hypotension, unspecified; B97.29 Other coronavirus as the cause of diseases classified elsewhere; R94.31 Abnormal electrocardiogram [ECG] [EKG]; I25.5 Ischemic cardiomyopathy; E78.5 Hyperlipidemia, unspecified; Z85.42 Personal history of malignant neoplasm of other parts of uterus; Z79.4 Long term (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 of insulin; Z23 Encounter for immunization; Z79.01 Long term (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 of anticoagulants; Z79.899 Other long term (current) drug therapy
CPT/HCPCS: 0241U; 36415; 71045; 71046; 80048; 80053; 81001; 82947; 83735; 83880; 84484; 85025; 85610; 87086; 87088; 87186; 87633; 90686; 92960; 93005; 99285; J1940; J3475

== ENCOUNTER → 2022-05-20 15:11 | Outpatient (BNVA) | payer MEDICARE, SELFPAY | PROVIDERS: PCP Internal Medicine; Visit Provider Internal Medicine | DX: I48.0 Paroxysmal atrial fibrillation (principal); Z79.01 Long term (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 of anticoagulants; Z51.81 Encounter for therapeutic drug level monitoring | CPT/HCPCS: 85610; 99212 ==

== ENCOUNTER → 2022-05-23 11:05 | Outpatient (BNVA) | payer MEDICARE, SELFPAY | PROVIDERS: PCP Internal Medicine; Visit Provider Internal Medicine | DX: I48.0 Paroxysmal atrial fibrillation (principal); I50.20 Unspecified systolic (congestive) heart failure; I48.92 Unspecified atrial flutter; Z51.81 Encounter for therapeutic drug level monitoring; Z79.01 Long term (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 of anticoagulants | CPT/HCPCS: 85610; 93005; 99211; 99212 ==

== ENCOUNTER → 2022-05-27 11:06 | Outpatient (BNVA) | payer MEDICARE, SELFPAY | PROVIDERS: PCP Internal Medicine; Visit Provider Internal Medicine | DX: I48.0 Paroxysmal atrial fibrillation (principal); Z79.01 Long term (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 of anticoagulants; Z51.81 Encounter for therapeutic drug level monitoring | CPT/HCPCS: 85610; 99211 ==

== ENCOUNTER → 2022-05-30 13:13 | Outpatient (BNVA) | payer MEDICARE, SELFPAY | PROVIDERS: PCP Internal Medicine; Visit Provider Internal Medicine | DX: I48.0 Paroxysmal atrial fibrillation (principal); Z79.01 Long term (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 of anticoagulants; Z51.81 Encounter for therapeutic drug level monitoring | CPT/HCPCS: 85610; 99211 ==

== ENCOUNTER → 2022-06-03 13:25 | Outpatient (BNVA) | payer MEDICARE, SELFPAY | PROVIDERS: PCP Internal Medicine; Visit Provider Internal Medicine | DX: I50.20 Unspecified systolic (congestive) heart failure (principal); I48.92 Unspecified atrial flutter; Z79.01 Long term (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 of anticoagulants; Z51.81 Encounter for therapeutic drug level monitoring | CPT/HCPCS: 85610; 99211 ==

== ENCOUNTER → 2022-06-04 14:40 | Outpatient (BNVA) | payer MEDICARE, SELFPAY | PROVIDERS: PCP Internal Medicine; Visit Provider Internal Medicine Endocrinology, Diabetes & Metabolism | DX: E11.65 Type 2 diabetes mellitus with hyperglycemia (principal); Z79.4 Long term (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 of insulin | CPT/HCPCS: 82947; 83036; 99212 ==

== ENCOUNTER 2022-06-10 13:54 | Outpatient (REF) | payer MEDICARE, SELFPAY ==
[2022-06-10 14:39] LABS: Hematocrit 41.7 % (37.0-47.0); Hemoglobin 13.8 g/dl (12.0-16.0); Mean Corpuscular HGB Conc 33.1 g/dl (31.0-35.0); Mean Corpuscular Hemoglobin 30.7 pg (27.0-33.0); Mean Corpuscular Volume 92.7 fL (80.0-98.0); Mean Platelet Volume 10.1 fL (9.4-12.3); Platelet Count 262 X10*3/uL (160-400); Red Cell Distribution Width 13.9 % (11.0-16.0); White Blood Count 7.8 X10*3/uL (4.8-10.8)
[2022-06-10 14:50] LABS: Prothrombin Time 67.8 SEC (10.0-13.1)
[2022-06-10 14:53] LABS: INTERNATIONAL NORM RATIO 5.5 (0.9-1.1)
[2022-06-10 15:57] LABS: Alanine Aminotransferase 13 U/L (0-31); Albumin Level 4.1 g/dL (3.5-5.0); Alkaline Phosphatase 79 U/L (39-117); Anion Gap 19 (12-20); Aspartate Amino Transferase 12 U/L (5-31); Bilirubin Direct < 0.2 mg/dL (0.0-0.5); Bilirubin Total 0.4 mg/dL (0.0-1.0); Blood Urea Nitrogen 62 mg/dL (9-16); Calcium 9.6 mg/dL (8.4-10.2); Carbon Dioxide 26 mmol/L (22-29); Chloride 93 mmol/L (96-108); Estimated Glomerular Filt Rate 28; Glucose Random 237 mg/dL (60-115); Potassium 4.7 mmol/L (3.3-5.1); Sodium 133 mmol/L (135-145); Total Protein 7.6 g/dL (6.5-8.0)
[2022-06-10 16:08] LABS: TSH reflex Free T4 2.75 uIU/mL (0.32-4.0)
[2022-06-12 12:44] LABS: NT-proBNP 767 pg/mL
== END 2022-06-10 13:55 | disposition home or self-care (01) ==
LOC: HO.LAB 13:54
PROVIDERS: Internal Medicine Cardiovascular Disease; PCP Internal Medicine; Visit Provider Internal Medicine
DX: I48.0 Paroxysmal atrial fibrillation (principal); I50.20 Unspecified systolic (congestive) heart failure; Z51.81 Encounter for therapeutic drug level monitoring; Z79.01 Long term (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 of anticoagulants
CPT/HCPCS: 36415; 80048; 80076; 83880; 84443; 85027; 85610; 99212

== ENCOUNTER → 2022-06-12 11:45 | Outpatient (BNVA) | payer MEDICARE, SELFPAY | PROVIDERS: PCP Internal Medicine; Visit Provider Internal Medicine | DX: I48.0 Paroxysmal atrial fibrillation (principal); Z79.01 Long term (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 of anticoagulants; Z51.81 Encounter for therapeutic drug level monitoring | CPT/HCPCS: 85610; 99211 ==

== ENCOUNTER → 2022-06-14 09:38 | Outpatient (BNVA) | payer MEDICARE, SELFPAY | PROVIDERS: PCP Internal Medicine; Visit Provider Internal Medicine | DX: I48.0 Paroxysmal atrial fibrillation (principal); Z79.01 Long term (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 of anticoagulants; Z51.81 Encounter for therapeutic drug level monitoring | CPT/HCPCS: 85610; 99211 ==

== ENCOUNTER → 2022-06-18 09:07 | Outpatient (BNVA) | payer MEDICARE, SELFPAY | PROVIDERS: PCP Internal Medicine; Visit Provider Internal Medicine | DX: I48.0 Paroxysmal atrial fibrillation (principal); Z79.01 Long term (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 of anticoagulants; Z51.81 Encounter for therapeutic drug level monitoring | CPT/HCPCS: 85610; 99211 ==

== ENCOUNTER → 2022-06-24 08:33 | Outpatient (BNVA) | payer MEDICARE, SELFPAY | PROVIDERS: PCP Internal Medicine; Visit Provider Internal Medicine | DX: I48.0 Paroxysmal atrial fibrillation (principal); Z51.81 Encounter for therapeutic drug level monitoring; Z79.01 Long term (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 of anticoagulants | CPT/HCPCS: 85610; 99211 ==

== ENCOUNTER → 2022-06-28 11:32 | Outpatient (BNVA) | payer MEDICARE, SELFPAY | PROVIDERS: PCP Internal Medicine; Visit Provider Internal Medicine | DX: I48.0 Paroxysmal atrial fibrillation (principal); Z79.01 Long term (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 of anticoagulants; Z51.81 Encounter for therapeutic drug level monitoring | CPT/HCPCS: 85610; 99211 ==

== ENCOUNTER → 2022-07-02 13:47 | Outpatient (BNVA) | payer MEDICARE, SELFPAY | PROVIDERS: PCP Internal Medicine; Visit Provider Internal Medicine | DX: I48.0 Paroxysmal atrial fibrillation (principal); Z79.01 Long term (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 of anticoagulants; Z51.81 Encounter for therapeutic drug level monitoring | CPT/HCPCS: 85610; 99211 ==

== ENCOUNTER → 2022-07-08 13:46 | Outpatient (BNVA) | payer MEDICARE, SELFPAY | PROVIDERS: PCP Internal Medicine; Visit Provider Internal Medicine | DX: I48.0 Paroxysmal atrial fibrillation (principal); Z79.01 Long term (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 of anticoagulants; Z51.81 Encounter for therapeutic drug level monitoring | CPT/HCPCS: 85610; 99211 ==

== ENCOUNTER → 2022-07-15 14:00 | Outpatient (BNVA) | payer MEDICARE, SELFPAY | PROVIDERS: PCP Internal Medicine; Visit Provider Internal Medicine | DX: I48.0 Paroxysmal atrial fibrillation (principal); Z79.01 Long term (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 of anticoagulants; Z51.81 Encounter for therapeutic drug level monitoring | CPT/HCPCS: 85610; 99211 ==

== ENCOUNTER → 2022-07-22 14:14 | Outpatient (BNVA) | payer MEDICARE, SELFPAY | PROVIDERS: PCP Internal Medicine; Visit Provider Internal Medicine | DX: I48.0 Paroxysmal atrial fibrillation (principal); Z79.01 Long term (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 of anticoagulants; Z51.81 Encounter for therapeutic drug level monitoring | CPT/HCPCS: 85610; 99211 ==

== ENCOUNTER → 2022-08-01 13:11 | Outpatient (REF) | payer MEDICARE, SELFPAY ==
--- NOTE | 2022-08-01 13:14 | CA_ITS ---
Transthoracic Echocardiogram Patient (Last, First, Middle): July Dorantes J Gender: Female Date of : 1955 Age: 67 Procedure Date: 08/01/2022 Procedure Type: Transthoracic Echocardiogram Location: OP Height: 165.1 cm Weight: 102.06 kg BSA: 2.08 m2 Heart Rate: bpm BP: 125 / 66 mmHg Snow Maker: KATH Referring MD: Cesar Storey MD Emery Wheel Molder: Cesar Storey MD Symptoms: I50.20 - Unspecified systolic (congestive) heart failure Study Quality: Adequate with contrast Conclusions: - Moderately increased left ventricular cavity size. There is normal left ventricular wall thickness. The left ventricular systolic function is moderately decreased. The visually estimated ejection fraction is between 30-35%. - Abnormal diastolic function is noted. Spectral Doppler is indicative of a restrictive filling pattern. Elevated filling pressures. - The inferoseptal wall and basal inferior segment are akinetic. - The apex segment is dyskinetic. - Normal right ventricular cavity size and systolic function. Findings Procedure Information Contrast agent, definity, is being given per protocol without apparent complications. Left Ventricle Moderately increased left ventricular cavity size. There is normal left ventricular wall thickness. The left ventricular systolic function is moderately decreased. The visually estimated ejection fraction is between 30 35%. There is evidence of regional wall motion abnormalities. Abnormal diastolic function is noted. Spectral Doppler is indicative of a restrictive filling pattern. Elevated filling pressures. Wall Motion Rest Echo Findings The inferoseptal wall and basal inferior segment are akinetic. The apex segment is dyskinetic. Right Ventricle Normal right ventricular cavity size and systolic function. Prior Study Comparison Changes noted compared to prior study dated: 04/04/2022. LV is dilated but LV function improved to 30-35%. Measurements 2D Linear Measurements IVSd: 0.86 0.6-0.9/0.6-1.0 cm LVIDd: 6.74 3.9-5.3/4.2-5.9 cm LVIDd Index: 3.24 2.4-3.2/2.2-3.1 cm/m2 LVIDs: 5.94 2.0-3.6 cm LVPWd: 0.87 0.7-1.1 cm LV Mass: 313.52 67-162/88-224 g LV Mass Index: 150.73 43-95/49-115 g/m2 LVOT Diam: 2.30 3.0+(-)1.3 cm 2D Systolic Function EF 4C: 37.70 >55% EF 2C: 35.70 >55% EF BiP: 36.30 >55% Mitral Valve MV Pk E: 1.19 MV PK A: 0.60 MV Decel Time: 203.00 E/A: 2.00 E'Lateral: 6.20 E'Medial: 4.24 E/E' Med: 28.10 E/E' Lat: 19.20 PHT: 59.00 MVA PHT: 3.73 Decel [place]: 5.86 LVOT LVOT Pk Héctor: 1.05 LVOT Mn Héctor: 0.68 LVOT VTI: 0.23 LVOT Pk Grad: 4.00 LVOT Mn Grad: 2.00 LVOT Diam: 2.30 LVOT Area: 4.15 Diastolic Function MV Pk E: 1.19 MV Pk A: 0.60 E/A: 2.00 E'Medial: 4.24 E/E' Med: 28.10 E' Laterial: 6.20 E/E' Lat: 19.20 Tricuspid Valve RA Press: 3.00 Updated in Other Vendor System with Status of Final Cesar Storey MD electronically signed on 08/02/2022 9:57:27 PM with status of Final
== END ==
LOC: HO.CARD 13:11
PROVIDERS: PCP Internal Medicine; Visit Provider Internal Medicine Cardiovascular Disease
DX: I48.0 Paroxysmal atrial fibrillation (principal); I50.20 Unspecified systolic (congestive) heart failure; Z51.81 Encounter for therapeutic drug level monitoring; Z79.01 Long term (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 of anticoagulants
CPT/HCPCS: 85610; 93308; 99211; Q9957

== ENCOUNTER 2022-08-05 10:48 | Emergency (ER) | payer MEDICARE, SELFPAY ==
--- NOTE | ~2022-08-05 | XR_ITS ---
EXAMINATION: XR CHEST CLINICAL INFORMATION: Dyspnea COMPARISON: Previous chest x-ray April 2022 TECHNIQUE: Frontal view of the chest was obtained. FINDINGS: No significant abnormality is noted involving the heart, lungs, mediastinum, bony thorax or soft tissues. XR/XR chest 1V IMPRESSION: Unremarkable examination.
[2022-08-05 10:54] VITALS: BP 148/79; PULSE 82; RESP 24; TEMP 36.8; O2SAT 99; BMI 39.1
--- NOTE | 2022-08-05 10:57 | ECG_ITS ---
Test Reason : sob Blood Pressure : / mmHG Vent. Rate : 081 BPM Atrial Rate : 081 BPM P-R Int : 172 ms QRS Dur : 148 ms QT Int : 420 ms P-R-T Axes : 077 -44 089 degrees QTc Int : 487 ms Normal sinus rhythm Left axis deviation Left bundle branch block Abnormal ECG When compared with ECG of 01-MAY-2022 14:54, IA interval has decreased Nonspecific T wave abnormality no longer evident in Inferior leads Inverted T waves have replaced nonspecific T wave abnormality in Lateral leads Referred By: Generic ED Physician Electronically Signed By:ERROL ANDUJAR
[2022-08-05 11:18] LABS: Hematocrit 40.6 % (37.0-47.0); Hemoglobin 13.3 g/dl (12.0-16.0); Mean Corpuscular HGB Conc 32.8 g/dl (31.0-35.0); Mean Corpuscular Hemoglobin 29.8 pg (27.0-33.0); Mean Corpuscular Volume 90.8 fL (80.0-98.0); Mean Platelet Volume 9.6 fL (9.4-12.3); Platelet Count 234 X10*3/uL (160-400); Red Blood Count 4.47 X10*6/uL (4.20-5.50); Red Cell Distribution Width 13.9 % (11.0-16.0); White Blood Count 6.2 X10*3/uL (4.8-10.8)
[2022-08-05 11:30] LABS: Anion Gap 17 (12-20); Blood Urea Nitrogen 46 mg/dL (9-16); Calcium 8.8 mg/dL (8.4-10.2); Carbon Dioxide 24 mmol/L (22-29); Chloride 96 mmol/L (96-108); Creatinine Clr Calc Pharmacy 42.8; Estimated Glomerular Filt Rate 33; Glucose Random 294 mg/dL (60-115); Potassium 4.1 mmol/L (3.3-5.1); Sodium 133 mmol/L (135-145)
[2022-08-05 11:37] LABS: B Type Natriuretic Peptide 109 pg/mL (<100)
--- NOTE | 2022-08-05 15:40 | MHC.EDTECH ---
PATIENT REPEATED TROP DRAWN AND SENT TO LAB .
[2022-08-05 16:04] LABS: Troponin-I High Sensitivity 11.9 ng/L (<3.5-17.0)
[2022-08-05 16:45] VITALS: BP 145/71; PULSE 80; RESP 20; TEMP 37.3; O2SAT 94
--- NOTE | 2022-08-05 16:56 | ED.SOB ---
HPI - SOB/Dyspnea General Chief Complaint: Dyspnea Stated Complaint: diff breathing Time Seen by Provider: 08/05/22 16:47 Source: patient Mode of arrival: ambulatory Limitations: no limitations History of Present Illness HPI Narrative: 67-year-old female history of CKD, prolonged QT, heart failure, atrial flutter on anticoagulant, AFib, incomplete left bundle branch block, diabetes, obesity, osteoarthritis, diabetes, hypertension asthma presenting to the emergency department with complaints of runny nose, dry cough, fatigue, malise, shortness of breath over the past few days worsening. Reports her daughter is currently sick w/ similar sx. Patient denies CP, fevers, chills, headache, dizinness, sputum production, nausea, vomiting. Related Data Home Medications Medication Instructions Recorded Confirmed blood-glucose meter (FreeStyle 10/25/21 08/01/22 Lite Meter kit) lancets 28 gauge (FreeStyle 10/25/21 08/01/22 Lancets) insulin degludec 100 unit/mL (3 42 unit subcut BEDTIME 03/12/22 08/01/22 mL) subcutaneous pen (Tresiba FlexTouch U-100 insulin) insulin lispro 100 unit/mL 12 unit subcut TIDAC 03/12/22 08/01/22 subcutaneous pen atorvastatin 40 mg tablet 40 mg PO BEDTIME 04/14/22 08/01/22 pen needle, diabetic 31 gauge x 06/04/22 08/01/22 5/16 (BD Ultra-Fine Short Pen Needle) dulaglutide 1.5 mg/0.5 mL 1.5 mg subcut QWEEK 07/02/22 08/01/22 [facility] losartan 25 mg tablet 25 mg PO DAILY 08/01/22 08/01/22 Previous Rx's Medication Instructions Recorded blood sugar diagnostic (FreeStyle #100 ea 10/11/20 Lite Strips) insulin syringe-needle U-100 1/2 #200 ea 11/13/21 mL 31 gauge x 15/64 (BD Veo Insulin Syringe Ultra-Fine) bumetanide 2 mg tablet 2 mg PO BID #90 tabs 04/22/22 spironolactone 25 mg tablet 25 mg PO DAILY #60 tabs 04/22/22 scale-accommodate weight 300 lbs #1 ea 03/02/23 warfarin 2.5 mg tablet 5 mg PO DAILY #60 tabs 05/23/22 carvedilol 6.25 mg tablet 6.25 mg PO BID 90 days #180 tabs 06/06/22 amiodarone 200 mg tablet 200 mg PO DAILY 30 days #30 tabs 06/12/22 albuterol sulfate 90 mcg/actuation 2 inh inhalation Q4-6H PRN 08/05/22 breath activated powder inhaler shortness of breath #1 ea prednisone 20 mg tablet 40 mg PO DAILY 5 days #10 tabs 08/05/22 Allergies Allergy/AdvReac Type Severity Reaction Status Date / Time red dye [Red Dye] Allergy Severe HIVES,THROAT Verified 08/01/22 14:14 CLOSES FROM RED FOOD DYE Review of Systems Review of Systems: Constitutional : No Weight loss, No Fever, No Chills, + Fatigue, + Malaise ENT/Mouth : No sore throat, No Rhinorrhea Eyes: No Eye Pain, No Swelling, No Redness Cardiovascular : No Chest Pain, + SOB, No Dyspnea on Exertion, No Orthopnea, No Edema, No Palpitations Respiratory : No Cough, No Sputum, No Wheezing Gastrointestinal : No Nausea, No Vomiting, No Diarrhea, No Constipation, No abdominal Pain, No Hematochezia, No Melena Genitourinary : No Dysuria, No Urinary Frequency, No Hematuria, Musculoskeletal : No joint pain, No Myalgias, No Joint Swelling Skin : No Skin Lesions, No rash Neuro : No Weakness, No Numbness, No Dizziness, No Headache Psych : No Anxiety/Panic, No Depression All other systems reviewed and are negative Yes all other systems are reviewed and are negative [facility] Past Medical History Attestation statement: The following information was validated with the patient. Source: old records reviewed and nursing notes reviewed Medical History Cardiomyopathy Colonoscopy refused Coronary arteriosclerosis Diabetes type 2, uncontrolled Diabetic neuropathy Endometrial adenocarcinoma Essential hypertension Hiatal hernia History of basal cell carcinoma History of cardioversion History of cholelithiasis History of esophagitis Incomplete left bundle branch block (LBBB) Irritable bowel syndrome (IBS) Ischemic cardiomyopathy Mammogram declined Mild intermittent asthma Mixed dyslipidemia Morbid obesity Obesity due to excess calories Osteoarthritis, knee Osteonecrosis of right hip Papanicolaou smear declined Paroxysmal atrial fibrillation Persistent atrial fibrillation Post-menopausal bleeding Type 2 diabetes mellitus with hyperglycemia, with long-term current use of insulin Type 2 diabetes mellitus with hyperglycemia, without long-term current use of insulin Uterine fibroid Vitamin D deficiency Surgical History H/O hernia repair History of cholecystectomy History of hip surgery History of hysterectomy Hx of section Hx of colonoscopy Family History Family History Father Myocardial infarction Cardiovascular disease Mother Diabetes mellitus Essential hypertension Daughter Anxiety disorder Mental health disorder Son Mental health disorder Social History Social History Household Members: Spouse and Children Housing: House Are you a primary hospice care consultant to a significant other at home: No Do you presently have visiting nurse or other home services: No Alcohol intake: never Patient Tobacco Use Status: Never used Tobacco e-Cigarette/Vaping Use: Never Used Second Hand Smoke Exposure: No Advance Directives: Yes Advance Directives on File: Yes Advance Directives Date on File: 04/08/22 service: No Current occupational status: retired Current occupational exposures/hazards: No Cognitive needs: No Hearing needs: No Vision needs: Yes Physical Exam Vital Signs: Vital Signs: Last Vital Signs Temp 99.1 F 08/05/22 16:45 Pulse 80 08/05/22 16:45 Resp 20 08/05/22 16:45 BP 145/71 H 08/05/22 16:45 Pulse Ox 94 08/05/22 16:45 O2 Del Method Room Air 08/05/22 16:45 BMI result Body Mass Index 39.1 vss Appearance: Alert.? Oriented X3.? No acute distress.? Head: Normocephalic, atraumatic, no step-offs or deformities Eyes: Pupils equal, round and reactive to light.? CVS: Normal heart rate and rhythm.? Pulses normal.? Respiratory: No respiratory distress.? Breath sounds w/ diffuse wheezing > LLL.? Abdomen: Soft and nontender.? Skin: Skin warm and dry.? Normal skin color.? Normal skin turgor.? Extremities: No lower extremity edema.? No calf ttp. 5/5 strength to bilateral upper and lower extremities Neuro: Oriented X 3.? No motor deficit.? No sensory deficit. CN 2-12 intact Course Reevaluation(s) Reevaluation #1: CBC unremarkable. Chemistry with a baseline hyponatremia and a baseline LUIS FELIPE, no new findings. Troponin initially 9.0, repeat 11.9, EKG nonischemic, not meeting delta criteria unlikely that this is ACS. BNP 109 however this appears to be much better than patient's previous BNP values therefore low suspicion for acute CHF. They bring this is likely viral versus asthma. Chest x-ray unremarkable. EKG with ventricular rate of 81, AK normal, QRS normal, QT/QTC normal. EKG with normal sinus rhythm, left axis deviation and a left bundle branch block which is patient's baseline. No signs of acute ischemia. Time: 17:03 Medical Decision Making Medical Decision Making [facility] Narrative: [birth year] 67 yo F presents w/ complaints of SOB X few days worsening. On anticoags PE- w/ diffuse whezing > LLL Likely asthma vs viral illness. Unlikely PE ( on anticoagulnts), pneumothorax, PNA, CHF, ACS Plan- labs, imaging Differential Diagnosis Differential Diagnoses: The differential diagnosis associated with the presentation includes Likely asthma vs viral illness. Unlikely PE ( on anticoagulnts), pneumothorax, PNA, CHF, ACS Admission/Observation Consideration of admission/observation: Escalation of care including admission/observation considered Lab Data [facility] Lab Attestation statement: I reviewed the patient's lab results. 08/05/22 11:07 08/05/22 11:07 Labs: Lab Results 08/05/22 08/05/22 08/05/22 Range/Units 11:07 11:07 11:07 WBC 6.2 (4.8-10.8) X10*3/uL RBC 4.47 (4.20-5.50) X10*6/uL Hgb 13.3 (12.0-16.0) g/dl Hct 40.6 (37.0-47.0) % MCV 90.8 (80.0-98.0) fL MCH 29.8 (27.0-33.0) pg MCHC 32.8 (31.0-35.0) g/dl RDW 13.9 (11.0-16.0) % Plt Count 234 (160-400) X10*3/uL MPV 9.6 (9.4-12.3) fL Absolute Nucleated RBC 0.000 (0.0-0.012) X10*3/uL Nucleated RBC % (auto) 0.0 (0.0-0.2) /100WBC Sodium 133 L (135-145) mmol/L Potassium 4.1 (3.3-5.1) mmol/L Chloride 96 (96-108) mmol/L Carbon Dioxide 24 (22-29) mmol/L Anion Gap 17 (12-20) BUN 46 H (9-16) mg/dL Creatinine 1.57 H (0.5-1.4) mg/dL Estim Creat Clear Calc 42.8 Estimated GFR 33 Random Glucose 294 H (60-115) mg/dL Calcium 8.8 D (8.4-10.2) mg/dL Troponin I High Sens 9.0 D (<3.5-17.0) ng/L B-Natriuretic Peptide (<100) pg/mL 08/05/22 08/05/22 Range/Units 11:07 15:39 WBC (4.8-10.8) X10*3/uL RBC (4.20-5.50) X10*6/uL Hgb (12.0-16.0) g/dl Hct (37.0-47.0) % MCV (80.0-98.0) fL MCH (27.0-33.0) pg MCHC (31.0-35.0) g/dl RDW (11.0-16.0) % Plt Count (160-400) X10*3/uL MPV (9.4-12.3) fL Absolute Nucleated RBC (0.0-0.012) X10*3/uL Nucleated RBC % (auto) (0.0-0.2) /100WBC Sodium (135-145) mmol/L Potassium (3.3-5.1) mmol/L Chloride (96-108) mmol/L Carbon Dioxide (22-29) mmol/L Anion Gap (12-20) BUN (9-16) mg/dL Creatinine (0.5-1.4) mg/dL Estim Creat Clear Calc Estimated GFR Random Glucose (60-115) mg/dL Calcium (8.4-10.2) mg/dL Troponin I High Sens 11.9 (<3.5-17.0) ng/L B-Natriuretic Peptide 109 H (<100) pg/mL Independent Interpretation I performed an independent interpretation of an: Plain X-Ray (XR/XR chest 1V IMPRESSION: Unremarkable examination.) Radiology Impression Discussion of test interpretation with radiology: I have reviewed the radiologist's reading. External Record Review External record reviewed: Inpatient record, Office record, Outpatient record, Prior outpatient labs, Prior outpatient radiology, Primary care record and Outside ED record Chronic Conditions Patient?s care impacted by: Diabetes and Hypertension Core Measures AMI core measures followed: Yes Measure exclusions: not indicated Critical Care Time Critical Care Time Critical Care Time: No Discharge Plan Discharge Clinical Impression: Shortness of breath, Viral illness Patient Disposition: Home, Self-Care Instructions: Viral Syndrome (ED), Shortness of Breath (ED) Additional Instructions: Take your medications as prescribed. If you were prescribed antibiotics today, it is important that you take your medication to their entirety, do not skip any doses, do not finish them early. Follow-up with your primary care provider this week. Return to the emergency department with new or worsening symptoms. Such as fevers, chills, chest pain, shortness of breath, nausea, vomiting, dizziness, headache, vision changes, lethargy In case of emergency call 911 Prescriptions: New prednisone 20 mg tablet 40 mg PO DAILY 5 Days Qty: 10 0RF albuterol sulfate 90 mcg/actuation aerosol powdr breath activated 2 inh inhalation Q4-6H PRN (Reason: shortness of breath) Qty: 1 0RF No Action (DME) FreeStyle Lite Strips Strip See Rx Instructions .Route Qty: 100 5RF Rx Instructions: As directed check sugar twice a day before meals (DME) insulin syringe-needle U-100 [BD Veo Insulin Syringe UF] 1/2 mL 31 gauge x 15/64 syringe See Rx Instructions .Route Qty: 200 1RF Rx Instructions: As directed twice a day (DME) scale-accommodate weight 300 lbs See Rx Instructions .Route .MEDSUPPLY Qty: 1 0RF Rx Instructions: As directed warfarin 2.5 mg tablet 5 mg PO DAILY Qty: 60 3RF Protocol: Dose Management Condition: Friday (Week One) Dose/Route: 5 mg Instruction: 2 x 2.5 mg tablets Condition: Friday Dose/Route: 7.5 mg Instruction: 3 x 2.5 mg tablets Condition: Friday Dose/Route: 5 mg Instruction: 2 x 2.5 mg tablets Condition: Friday Dose/Route: 7.5 mg Instruction: 3 x 2.5 mg tablets Condition: Dose/Route: 5 mg Instruction: 2 x 2.5 mg tablets Condition: Friday Dose/Route: 7.5 mg Instruction: 3 x 2.5 mg tablets Condition: Friday Dose/Route: 5 mg Instruction: 2 x 2.5 mg tablets Condition: Friday (Week Two) Dose/Route: 5 mg Instruction: 2 x 2.5 mg tablets Condition: Friday Dose/Route: 7.5 mg Instruction: 3 x 2.5 mg tablets Condition: Friday Dose/Route: 5 mg Instruction: 2 x 2.5 mg tablets Condition: Friday Dose/Route: 7.5 mg Instruction: 3 x 2.5 mg tablets Condition: Dose/Route: 5 mg Instruction: 2 x 2.5 mg tablets Condition: Friday Dose/Route: 7.5 mg Instruction: 3 x 2.5 mg tablets Condition: Friday Dose/Route: 5 mg Instruction: 2 x 2.5 mg tablets Protocol Text: Adjustment Start Date: 08/01/22 INR Value: 2.8 INR Date: 08/01/22 Recheck Date: 08/15/22 Additional Instructions: CONT TO EAT A MIX OF FRUITS AND VEGETABLES Rx Instructions: green tablet , pt allergic to red dye carvedilol 6.25 mg tablet 6.25 mg PO BID 90 Days Qty: 180 2RF amiodarone 200 mg tablet 200 mg PO DAILY 30 Days Qty: 30 3RF Rx Instructions: Make sure these are dye free tablets insulin lispro 100 unit/mL insulin pen 12 unit subcut TIDAC Rx Instructions: administer before meals insulin degludec [Tresiba FlexTouch U-100] 100 unit/mL (3 mL) insulin pen 42 unit subcut BEDTIME Trulicity 1.5 mg/0.5 mL pen injector 1.5 mg SUBCUT QWEEK atorvastatin 40 mg tablet 40 mg PO BEDTIME (DME) blood-glucose meter [FreeStyle Lite Meter] Kit See Rx Instructions .Route Rx Instructions: As directed (DME) lancets [FreeStyle Lancets] 28 gauge misc See Rx Instructions .Route Rx Instructions: As directed bumetanide 2 mg tablet 2 mg PO BID Qty: 90 3RF spironolactone 25 mg tablet 25 mg PO DAILY Qty: 60 3RF (DME) pen needle, diabetic [BD Ultra-Fine Short Pen Needle] 31 gauge x 5/16 needle See Rx Instructions .ROUTE .COMPLEX Dose Instruction: USE 1 PEN NEEDLE ONCE DAILY WITH LANTUS INSULIN Rx Instructions: USE 4 times a day losartan 25 mg tablet 25 mg PO DAILY Referrals: Lily Menjivar MD [Primary Care Provider] - 1 week Stand Alone Forms: Work/School Release
[2022-08-05] MEDS: levalbuterol HCL 1.25 MG/3 ML VIAL.NEB INHALE (17:22)
[2022-08-05 17:23] VITALS: PULSE 77; RESP 18; O2SAT 93
== END 2022-08-05 19:11 | disposition home or self-care (01) ==
PROVIDERS: Physician Assistant Medical; Emergency Provider Internal Medicine; PCP Internal Medicine
DX: B34.9 Viral infection, unspecified (principal); R06.02 Shortness of breath; E11.9 Type 2 diabetes mellitus without complications; I10 Essential (primary) hypertension; E78.5 Hyperlipidemia, unspecified; I48.0 Paroxysmal atrial fibrillation; Z79.01 Long term (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 of anticoagulants; Z79.4 Long term (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 of insulin; Z79.02 Long term (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 of antithrombotics/antiplatelets; Z79.899 Other long term (current) drug therapy
CPT/HCPCS: 36415; 71045; 80048; 83880; 84484; 85027; 93005; 94640; 99284

== ENCOUNTER → 2022-08-15 13:13 | Outpatient (BNVA) | payer MEDICARE, SELFPAY | PROVIDERS: PCP Internal Medicine; Visit Provider Internal Medicine | DX: I48.0 Paroxysmal atrial fibrillation (principal); Z79.01 Long term (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 of anticoagulants; Z51.81 Encounter for therapeutic drug level monitoring | CPT/HCPCS: 85610; 99212 ==

== ENCOUNTER → 2022-08-19 13:18 | Outpatient (BNVA) | payer MEDICARE, SELFPAY | PROVIDERS: PCP Internal Medicine; Visit Provider Internal Medicine | DX: I48.0 Paroxysmal atrial fibrillation (principal); Z79.01 Long term (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 of anticoagulants; Z51.81 Encounter for therapeutic drug level monitoring | CPT/HCPCS: 85610; 99211 ==

== ENCOUNTER → 2022-08-26 13:29 | Outpatient (BNVA) | payer MEDICARE, SELFPAY | PROVIDERS: PCP Internal Medicine; Visit Provider Internal Medicine | DX: I48.0 Paroxysmal atrial fibrillation (principal); Z79.01 Long term (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 of anticoagulants; Z51.81 Encounter for therapeutic drug level monitoring | CPT/HCPCS: 85610; 99211 ==

== ENCOUNTER → 2022-09-04 11:30 | Outpatient (BNVA) | payer MEDICARE, SELFPAY | PROVIDERS: PCP Internal Medicine; Referring Provider Internal Medicine; Visit Provider Internal Medicine Cardiovascular Disease | DX: I50.20 Unspecified systolic (congestive) heart failure (principal); I48.91 Unspecified atrial fibrillation; Z79.899 Other long term (current) drug therapy | CPT/HCPCS: 99212 ==

== ENCOUNTER → 2022-09-05 13:30 | Outpatient (BNVA) | payer MEDICARE, SELFPAY | PROVIDERS: PCP Internal Medicine; Visit Provider Internal Medicine | DX: I48.0 Paroxysmal atrial fibrillation (principal); Z79.01 Long term (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 of anticoagulants; Z51.81 Encounter for therapeutic drug level monitoring | CPT/HCPCS: 85610; 99211 ==

== ENCOUNTER → 2022-09-12 13:33 | Outpatient (BNVA) | payer MEDICARE, SELFPAY | PROVIDERS: PCP Internal Medicine; Visit Provider Internal Medicine | DX: I48.0 Paroxysmal atrial fibrillation (principal); Z79.01 Long term (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 of anticoagulants; Z51.81 Encounter for therapeutic drug level monitoring | CPT/HCPCS: 85610; 99211 ==

== ENCOUNTER → 2022-09-19 13:28 | Outpatient (BNVA) | payer MEDICARE, SELFPAY | PROVIDERS: PCP Internal Medicine; Visit Provider Internal Medicine | DX: I48.0 Paroxysmal atrial fibrillation (principal); Z79.01 Long term (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 of anticoagulants; Z51.81 Encounter for therapeutic drug level monitoring | CPT/HCPCS: 85610; 99211 ==

== ENCOUNTER 2022-10-08 13:54 | Outpatient (AMB) | payer MEDICARE, SELFPAY ==
[2022-10-08 14:02] LABS: Prothrombin Time Whole Bld POC 53.7 sec (11.1-13.5); ~PT, ~INR - Anti Coag Clinic 4.5 (0.9-1.1)
--- NOTE | 2022-10-08 14:03 | MHC.OFFVISCO ---
Intake Intake Visit Reasons: Anticoagulation Allergies red dye [Red Dye] Allergy (Severe, Verified 10/08/22 13:56) HIVES,THROAT CLOSES FROM RED FOOD DYE Medication List - Last Reconciled 10/08/22 by Agnes Weaver RN albuterol sulfate 90 mcg/actuation 0 mcg inhalation amiodarone 200 mg PO DAILY 30 days atorvastatin 40 mg PO BEDTIME blood sugar diagnostic (FreeStyle Lite Strips) As directed check sugar twice a day before meals blood-glucose meter (FreeStyle Lite Meter kit) As directed bumetanide Take 2 mg b.i.d. alternating with 3 mg b.i.d. on alternate days orally; carvedilol 6.25 mg PO BID 90 days clotrimazole 1% (Athlete's Foot (clotrimazole)) 1 appl topical BID 4 weeks dulaglutide (Trulicity) 1.5 mg subcut QWEEK insulin degludec (Tresiba FlexTouch U-100 insulin) 42 units subcut BEDTIME insulin lispro 12 units subcut TIDAC insulin syringe-needle U-100 (BD Veo Insulin Syringe Ultra-Fine) As directed twice a day lancets (FreeStyle Lancets) As directed losartan 25 mg PO DAILY pen needle, diabetic (BD Ultra-Fine Short Pen Needle) USE 4 times a day [scale-accommodate weight 300 lbs As directed] spironolactone 25 mg PO DAILY warfarin 5 mg See Protocol PO DAILY Nursing Note INR 4.5-? out of therapeutic range Medications and supplements reviewed Patient status: pt with c.o increased stress, pt insists she is taking 5mg daily Medications or supplements: no changes Diet: somewhat less, occ nausea Denies any signs and symptoms of bleeding or clotting or unusual bruising Bleeding, bruising, clotting discussed - pt has bruise on posterior upper arm from trulicity injection last week Nutritional guidance given: eat greens to lower inr, no reds for 2 days Dose: no warfarin today, take 2.5mg tomm then cont 5mg daily F/U INR Date : 1 week Patient verbalizing understanding of instructions given. 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 ) Psych. 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
== END 2022-10-08 14:10 | disposition home or self-care (01) ==
LOC: HO.ACS 13:54
PROVIDERS: PCP Internal Medicine; Visit Provider Internal Medicine
DX: Z79.01 Long term (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 of anticoagulants (principal)

== ENCOUNTER → 2022-10-08 13:54 | Outpatient (BNVA) | payer MEDICARE, SELFPAY | PROVIDERS: PCP Internal Medicine; Visit Provider Internal Medicine | DX: I48.0 Paroxysmal atrial fibrillation (principal); Z51.81 Encounter for therapeutic drug level monitoring; Z79.01 Long term (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 of anticoagulants | CPT/HCPCS: 85610; 99211 ==

== ENCOUNTER 2022-10-15 14:10 | Outpatient (AMB) | payer MEDICARE, SELFPAY ==
--- NOTE | 2022-10-15 14:14 | MHC.OFFVISCO ---
Intake Intake Visit Reasons: Anticoagulation Allergies red dye [Red Dye] Allergy (Severe, Verified 10/15/22 14:10) HIVES,THROAT CLOSES FROM RED FOOD DYE Medication List - Last Reconciled 10/15/22 by Agnes Weaver RN albuterol sulfate 90 mcg/actuation 0 mcg inhalation amiodarone 200 mg PO DAILY 30 days atorvastatin 40 mg PO BEDTIME blood sugar diagnostic (FreeStyle Lite Strips) As directed check sugar twice a day before meals blood-glucose meter (FreeStyle Lite Meter kit) As directed bumetanide Take 2 mg b.i.d. alternating with 3 mg b.i.d. on alternate days orally; carvedilol 6.25 mg PO BID 90 days clotrimazole 1% (Athlete's Foot (clotrimazole)) 1 appl topical BID 4 weeks dulaglutide (Trulicity) 1.5 mg subcut QWEEK insulin degludec (Tresiba FlexTouch U-100 insulin) 42 units subcut BEDTIME insulin lispro 12 units subcut TIDAC insulin syringe-needle U-100 (BD Veo Insulin Syringe Ultra-Fine) As directed twice a day lancets (FreeStyle Lancets) As directed losartan 25 mg PO DAILY pen needle, diabetic (BD Ultra-Fine Short Pen Needle) USE 4 times a day [scale-accommodate weight 300 lbs As directed] spironolactone 25 mg PO DAILY warfarin 5 mg See Protocol PO DAILY Nursing Note INR: 2.8- in therapeutic range Medications and supplements reviewed- no changes No changes in health, diet, medications, or supplements, Denies any signs and symptoms of bleeding or bruising or clotting. Bleeding, bruising, clotting discussed Nutritional guidance given - balance reds and greens, include greens in weekly diet Dose: 5mg x 6, 2.5mg x 1 F/U INR: 1 week Patient verbalizes understanding of instructions given Anti-Coag Initial Assessment Social Hx Patient Tobacco Use Status: Never used Tobacco alcohol intake: never Alcohol intake frequency: does not drink Cardiovascular Hx: HTN, Angina, CAD, CHF, Arrhythmias, Varicose Veins and Other Lung Disease HX: Asthma Endocrine Hx: Diabetes Musculoskeletal Hx: Arthritis Blood Disorder Hx: Hyperlipidemia GI Hx: Ulcers, Bleeding (GI, rectal) and Other Hx: Kidney Disease Neurological Hx: Serious Head Injury and Migraines/Headaches 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 ) Psych. 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
[2022-10-15 14:16] LABS: ~PT, ~INR - Anti Coag Clinic 2.8 (0.9-1.1)
== END 2022-10-15 14:29 | disposition home or self-care (01) ==
LOC: HO.ACS 14:10
PROVIDERS: PCP Internal Medicine; Visit Provider Internal Medicine
DX: Z79.01 Long term (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 of anticoagulants (principal)

== ENCOUNTER → 2022-10-15 14:10 | Outpatient (BNVA) | payer MEDICARE, SELFPAY | PROVIDERS: PCP Internal Medicine; Visit Provider Internal Medicine | DX: I48.0 Paroxysmal atrial fibrillation (principal); Z79.01 Long term (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 of anticoagulants; Z51.81 Encounter for therapeutic drug level monitoring | CPT/HCPCS: 85610; 99211 ==

== ENCOUNTER 2022-10-17 14:56 | Outpatient (AMB) | payer MEDICARE, SELFPAY ==
[2022-10-17 15:18] VITALS: BP 130/80; PULSE 67; BMI 37.8
--- NOTE | 2022-10-17 15:18 | A.OFFVIS_ITS ---
Intake Vital Signs 10/17/22 15:18 Height 5 ft 5 in Weight 227 lb 1.218 oz BMI 37.8 BP 130/80 Blood Pressure Location Lt brachial Position Sitting Pulse 67 Intake Visit Reasons: 1 month follow up per KM Intake Note: 1 month f/u per km patient having some chest pain Physician Assistant Required: No Allergies red dye [Red Dye] Allergy (Severe, Verified 10/17/22 15:23) HIVES,THROAT CLOSES FROM RED FOOD DYE Medication List - Last Reconciled 10/17/22 by NUNO Rivas albuterol sulfate 90 mcg/actuation 0 mcg inhalation amiodarone 200 mg PO DAILY 30 days atorvastatin 40 mg PO BEDTIME blood sugar diagnostic (FreeStyle Lite Strips) As directed check sugar twice a day before meals blood-glucose meter (FreeStyle Lite Meter kit) As directed bumetanide Take 2 mg b.i.d. alternating with 3 mg b.i.d. on alternate days orally; carvedilol 6.25 mg PO BID 90 days clotrimazole 1% (Athlete's Foot (clotrimazole)) 1 appl topical BID 4 weeks dulaglutide (Trulicity) 1.5 mg subcut QWEEK insulin degludec (Tresiba FlexTouch U-100 insulin) 42 units subcut BEDTIME insulin lispro 12 units subcut TIDAC insulin syringe-needle U-100 (BD Veo Insulin Syringe Ultra-Fine) As directed twice a day lancets (FreeStyle Lancets) As directed losartan 25 mg PO DAILY pen needle, diabetic (BD Ultra-Fine Short Pen Needle) USE 4 times a day [scale-accommodate weight 300 lbs As directed] spironolactone 25 mg PO DAILY warfarin 5 mg See Protocol PO DAILY HPI 1 month follow up per KM HPI Details July is a 67-year-old female with past medical history of morbid obesity, diabetes, hyperlipidemia, chronic kidney disease, coronary artery disease, ischemic cardiomyopathy, heart failure with reduced EF, paroxysmal AF fib who presents for follow-up. Today she reports she has been getting some discomfort in her mid chest which is new. It can occur randomly whether she is walking or sitting. It lasts a few minutes before resolving. She has chronic shortness of breath with activity. No heart palpitations, dizziness, presyncope, syncope, falls. No clear PND, orthopnea. Her leg edema is currently improved compared to prior reports. She has been taking her medications as directed. She follows with the [facility] anticoagulation clinic. No bleeding issues reported. 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) Acquired deformity of nail Cardiomyopathy Colonoscopy refused Coronary arteriosclerosis Diabetes type 2, uncontrolled Diabetic neuropathy Endometrial adenocarcinoma Essential hypertension Hiatal hernia History of basal cell carcinoma History of cardioversion History of cholelithiasis History of esophagitis Incomplete left bundle branch block (LBBB) Irritable bowel syndrome (IBS) Ischemic cardiomyopathy Mammogram declined Mild intermittent asthma Mixed dyslipidemia Morbid obesity Obesity due to excess calories Osteoarthritis, knee Osteonecrosis of right hip Papanicolaou smear declined Paroxysmal atrial fibrillation Persistent atrial fibrillation Post-menopausal bleeding Rash of foot Tinea pedis Type 2 diabetes mellitus with hyperglycemia, with long-term current use of insulin Type 2 diabetes mellitus with hyperglycemia, without long-term current use of insulin Uterine fibroid Vitamin D deficiency Surgical History (Updated 10/17/22 @ 18:35 by Imelda Harris NP-C) H/O hernia repair History of cholecystectomy History of hip surgery History of hysterectomy Hx of section Hx of colonoscopy S/P cardiac catheterization Family History Father Myocardial infarction Cardiovascular disease Mother Diabetes mellitus Essential hypertension Daughter Anxiety disorder Mental health disorder Son Mental health disorder Social History Household Members: Spouse and Children Housing: House Are you a primary manager critical care to a significant other at home: No Do you presently have visiting nurse or other home services: No Alcohol intake: never Patient Tobacco Use Status: Never used Tobacco e-Cigarette/Vaping Use: Never Used Second Hand Smoke Exposure: No Advance Directives Date on File: 04/08/22 service: No Current occupational status: retired Current occupational exposures/hazards: No Cognitive needs: No Hearing needs: No Vision needs: Yes Review of Systems Const All systems reviewed & are unremarkable except as noted in HPI and below ENT Reports dizziness Card Reports chest pain, Denies chest pain at rest, Denies chest pain with activity, Denies rapid heart rate, Denies pedal edema, Denies edema, Reports leg edema, Denies lightheadedness, Denies palpitations, Denies dyspnea, Reports dyspnea on exertion and Denies orthopnea Resp Denies cough, Denies dyspnea and Reports dyspnea on exertion GI Denies hematochezia and Denies change in stool character Musc Denies abnormal gait, Reports limited range of motion, Reports muscle cramps, Denies muscle weakness, Denies numbness, Denies radiating pain into limb, Denies stiffness and Denies tingling Neuro Denies abnormal gait, Reports dizziness, Denies numbness and Denies tingling Endo Denies palpitations Physical Exam Vital Signs: Last Vital Signs BP 130/80 10/17/22 15:18 BMI result Body Mass Index 37.8 Const General: comfortable and no acute distress Orientation/consciousness: patient oriented x3 Neck Neck: Yes normal visual inspection Resp Effort & Inspection: normal respiratory effort Auscultation: clear to auscultation bilaterally, no rales, no rhonchi and no wheezes Cardio Jugular venous distension: no JVD Rate: regular rate Rhythm: regular rhythm Heart sounds: S1 normal heart sound present, S2 normal heart sound present, no murmurs and no rubs Neuro General: patient oriented x3 Extrem Other: Nonpitting edema of lower legs bilaterally Psych Appearance: grossly normal Mental Status: mental status grossly normal Speech and movement: Normal speech and movement present Office Procedures EKG Details: Today, read by me, normal sinus rhythm, left axis deviation, left bundle branch block, rate 67 [id number], Complete Assessment & Plan Assessment & Plan (1) Paroxysmal atrial fibrillation: Code(s): I48.0 - Paroxysmal atrial fibrillation Plan: History paroxysmal atrial fibrillation. Currently suppressed with amiodarone 200 mg daily. She is also on carvedilol 6.25 mg b.i.d.. Labs done on 06/10/2022 shows TSH 2.75, LFTs normal. She has not felt any recent heart palpitations. EKG done today showing sinus rhythm with left bundle branch block which is unchanged from prior. She continues on Coumadin for anticoagulation. Follows with [facility] anticoagulation clinic. No bleeding issues reported. Continue current treatment. (2) Coronary arteriosclerosis: Code(s): I25.10 - Atherosclerotic heart disease of [place] coronary artery without angina pectoris Plan: Echocardiogram last year had shown reduced EF and wall motion abnormality. No cardiac history however multiple cardiac risk factors. She then underwent a nuclear stress test that was equivocal for mild apical and basal inferior lateral ischemia, EF 30% with stress and 35% with rest. She ultimately had cardiac catheterization on 11/06/2021 showing moderate to severe coronary artery disease. There is ANGLE ROLL OPERATOR of the left circumflex. She was managed medically at that time and maintained on atorvastatin, carvedilol, losartan. She is not on aspirin as she is on Coumadin. Today she reports that she has been getting some discomfort in her mid chest at rest and with activity for the last several weeks. This is causing her concern. EKG done today showing sinus rhythm with left bundle branch block, nondiagnostic for ischemia. Last echocardiogram done 08/01/2022 shows EF 30-35%, abnormal diastolic function, inferior septal wall, basal inferior segment akinetic, apex segment dyskinetic, normal RV. Pulse rate today 67. Will continue carvedilol at current dose. Will add isosorbide as 2nd antianginal. Will discuss plan of care with her primary aviation electrical technician Dr. Storey. Instructed on light activities only. Signs and symptoms of angina reviewed. ED care if needed for symptoms. 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 She will continue Bumex b.i.d.. Labs done 08/05/2022 shows creatinine 1.57. (6) Left bundle branch block: Code(s): I44.7 - Left bundle-branch block, unspecified Plan: Noted on EKGs (7) Obesity, Class II, BMI 35-39.9: Code(s): E66.9 - Obesity, unspecified (8) S/P cardiac catheterization: Comment: 11/06/2021, lad proximal 50% stenosis, mid 50% stenosis, left circumflex moderate diffuse disease, mid circumflex 100% stenosis, ANGLE ROLL OPERATOR, RCA, right PDA proximal 70% stenosis, ramus proximal 65% stenosis Code(s): Z98.890 - Other specified postprocedural states Coding Level of Care Code Est Pt Level 4 (67023) Diagnoses Paroxysmal atrial fibrillation I48.0 Coronary arteriosclerosis I25.10 Current use of anticoagulant therapy Z79.01 Chest discomfort R07.89 HFrEF (heart failure with reduced ejection fraction) I50.20 Left bundle branch block I44.7 Obesity, Class II, BMI 35-39.9 E66.9 S/P cardiac catheterization Z98.890 CPT Codes EKG - CPT: [id number], Complete ([id number]) Time Spent (min) 28 Comment Chart review, documentation, interview, assess
== END 2022-10-17 15:54 | disposition home or self-care (01) ==
PROVIDERS: PCP Internal Medicine; Referring Provider Internal Medicine; Visit Provider Nurse Practitioner Family
DX: I48.0 Paroxysmal atrial fibrillation (principal); I25.10 Atherosclerotic heart disease of native coronary artery without angina pectoris; Z79.01 Long term (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 of anticoagulants; R07.89 Other chest pain; I50.20 Unspecified systolic (congestive) heart failure; I44.7 Left bundle-branch block, unspecified; E66.9 Obesity, unspecified; Z98.890 Other specified postprocedural states
CPT/HCPCS: 93010; 99214

== ENCOUNTER → 2022-10-17 14:56 | Outpatient (BNVA) | payer MEDICARE, SELFPAY | PROVIDERS: PCP Internal Medicine; Referring Provider Internal Medicine; Visit Provider Nurse Practitioner Family | DX: I48.0 Paroxysmal atrial fibrillation (principal); I25.10 Atherosclerotic heart disease of native coronary artery without angina pectoris; I50.20 Unspecified systolic (congestive) heart failure; I44.7 Left bundle-branch block, unspecified; R07.89 Other chest pain; E66.9 Obesity, unspecified; Z79.01 Long term (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 of anticoagulants; Z98.890 Other specified postprocedural states; Z68.37 Body mass index [BMI] 37.0-37.9, adult | CPT/HCPCS: 93005; 99212 ==

== ENCOUNTER 2022-10-22 13:55 | Outpatient (AMB) | payer MEDICARE, SELFPAY ==
--- NOTE | 2022-10-22 14:04 | MHC.OFFVISCO ---
Intake Intake Visit Reasons: Anticoagulation Allergies red dye [Red Dye] Allergy (Severe, Verified 10/22/22 13:58) HIVES,THROAT CLOSES FROM RED FOOD DYE Medication List - Last Reconciled 10/22/22 by Agnes Weaver RN albuterol sulfate 90 mcg/actuation 0 mcg inhalation amiodarone 200 mg PO DAILY 30 days atorvastatin 40 mg PO BEDTIME blood sugar diagnostic (FreeStyle Lite Strips) As directed check sugar twice a day before meals blood-glucose meter (FreeStyle Lite Meter kit) As directed bumetanide Take 2 mg b.i.d. alternating with 3 mg b.i.d. on alternate days orally; carvedilol 6.25 mg PO BID 90 days clotrimazole 1% (Athlete's Foot (clotrimazole)) 1 appl topical BID 4 weeks dulaglutide (Trulicity) 1.5 mg (0.5 mL) subcut QWEEK insulin degludec (Tresiba FlexTouch U-100 insulin) 42 units subcut BEDTIME insulin lispro 12 units subcut TIDAC insulin syringe-needle U-100 (BD Veo Insulin Syringe Ultra-Fine) As directed twice a day lancets (FreeStyle Lancets) As directed losartan 25 mg PO DAILY pen needle, diabetic (BD Ultra-Fine Short Pen Needle) USE 4 times a day [scale-accommodate weight 300 lbs As directed] spironolactone 25 mg PO DAILY warfarin 5 mg See Protocol PO DAILY Nursing Note INR: 2.8- in therapeutic range Medications and supplements reviewed- no changes No changes in health, diet, medications, or supplements, Denies any signs and symptoms of bleeding or bruising or clotting. Bleeding, bruising, clotting discussed Nutritional guidance given - include greens in weekly diet Dose: 5mg x 6, 2.5mg x 1 F/U INR: 2 weeks Patient verbalizes understanding of instructions given pt states has 'boil' on private area- occ bleeding from irritation- enc to notify md zvaala to have this monitored. she will call acs with any further bleeding or medication changes Anti-Coag Initial Assessment Social Hx Patient Tobacco Use Status: Never used Tobacco alcohol intake: never Alcohol intake frequency: does not drink Cardiovascular Hx: HTN, Angina, CAD, CHF, Arrhythmias, Varicose Veins and Other Lung Disease HX: Asthma Endocrine Hx: Diabetes Musculoskeletal Hx: Arthritis Blood Disorder Hx: Hyperlipidemia GI Hx: Ulcers, Bleeding (GI, rectal) and Other Hx: Kidney Disease Neurological Hx: Serious Head Injury and Migraines/Headaches 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 ) Psych. Illness/Depression: No Coding Level of Care Code Est Patient Level 1 Diagnoses Current use of anticoagulant therapy Z79.01 Assessment & Plan Assessment & Plan (1) Current use of anticoagulant therapy: Code(s): Z79.01 - terminologist (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 of anticoagulants Category: Medical
[2022-10-22 14:05] LABS: Prothrombin Time Whole Bld POC 34.1 sec (11.1-13.5); ~PT, ~INR - Anti Coag Clinic 2.8 (0.9-1.1)
== END 2022-10-22 14:09 | disposition home or self-care (01) ==
LOC: HO.ACS 13:55
PROVIDERS: PCP Internal Medicine; Visit Provider Internal Medicine
DX: Z79.01 Long term (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 of anticoagulants (principal)

== ENCOUNTER → 2022-10-22 13:55 | Outpatient (BNVA) | payer MEDICARE, SELFPAY | PROVIDERS: PCP Internal Medicine; Visit Provider Internal Medicine | DX: I48.0 Paroxysmal atrial fibrillation (principal); Z79.01 Long term (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 of anticoagulants; Z51.81 Encounter for therapeutic drug level monitoring | CPT/HCPCS: 85610; 99211 ==

== ENCOUNTER 2022-11-06 13:59 | Outpatient (AMB) | payer MEDICARE, SELFPAY ==
--- NOTE | 2022-11-06 14:10 | MHC.OFFVISCO ---
Intake Intake Visit Reasons: Anticoagulation Allergies red dye [Red Dye] Allergy (Severe, Verified 11/06/22 14:05) HIVES,THROAT CLOSES FROM RED FOOD DYE Medication List - Last Reconciled 11/06/22 by Agnes Weaver RN albuterol sulfate 90 mcg/actuation 0 mcg inhalation amiodarone 200 mg PO DAILY atorvastatin 40 mg PO DAILY blood sugar diagnostic (FreeStyle Lite Strips) As directed check sugar twice a day before meals blood-glucose meter (FreeStyle Lite Meter kit) As directed bumetanide Take 2 mg b.i.d. alternating with 3 mg b.i.d. on alternate days orally; carvedilol 6.25 mg PO BID 90 days clotrimazole 1% (Athlete's Foot (clotrimazole)) 1 appl topical BID 4 weeks dulaglutide (Trulicity) 1.5 mg (0.5 mL) subcut QWEEK insulin degludec (Tresiba FlexTouch U-100 insulin) 42 units subcut BEDTIME insulin lispro 12 units subcut TIDAC insulin syringe-needle U-100 (BD Veo Insulin Syringe Ultra-Fine) As directed twice a day lancets (FreeStyle Lancets) As directed losartan 25 mg PO DAILY pen needle, diabetic (BD Ultra-Fine Short Pen Needle) USE 4 times a day [scale-accommodate weight 300 lbs As directed] spironolactone 25 mg PO DAILY warfarin 5 mg See Protocol PO DAILY Nursing Note INR 1.7-?? out of therapeutic range- denies missed dose Medications and supplements reviewed Patient status: pt amb with cane, c.o back pain, not taking pain med Medications or supplements: no changes Diet: same, may have had more greens Denies any signs and symptoms of bleeding or clotting or unusual bruising Bleeding, bruising, clotting discussed Nutritional guidance given: no greens for 2 days, eat a red today Dose: 5mg today then 5mg x 6, 2.5mg x 1 F/U INR Date : 2 weeks? Patient verbalizing understanding of instructions given. 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 ) Psych. Illness/Depression: No Coding Level of Care Code Est Patient Level 1 Diagnoses Current use of anticoagulant therapy Z79.01 Assessment & Plan Assessment & Plan (1) Current use of anticoagulant therapy: Code(s): Z79.01 - detention (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 of anticoagulants Category: Medical
[2022-11-06 14:11] LABS: Prothrombin Time Whole Bld POC 20.8 sec (11.1-13.5); ~PT, ~INR - Anti Coag Clinic 1.7 (0.9-1.1)
== END 2022-11-06 14:16 | disposition home or self-care (01) ==
LOC: HO.ACS 13:59
PROVIDERS: PCP Internal Medicine; Visit Provider Internal Medicine
DX: Z79.01 Long term (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 of anticoagulants (principal)

== ENCOUNTER → 2022-11-06 13:59 | Outpatient (BNVA) | payer MEDICARE, SELFPAY | PROVIDERS: PCP Internal Medicine; Visit Provider Internal Medicine | DX: I48.0 Paroxysmal atrial fibrillation (principal); Z79.01 Long term (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 of anticoagulants; Z51.81 Encounter for therapeutic drug level monitoring | CPT/HCPCS: 85610; 99211 ==

== ENCOUNTER 2022-11-25 13:55 | Outpatient (AMB) | payer MEDICARE, SELFPAY ==
[2022-11-25 14:12] LABS: Prothrombin Time Whole Bld POC 31.5 sec (11.1-13.5); ~PT, ~INR - Anti Coag Clinic 2.6 (0.9-1.1)
--- NOTE | 2022-11-25 14:20 | MHC.OFFVISCO ---
Intake Intake Visit Reasons: Anticoagulation Allergies red dye [Red Dye] Allergy (Severe, Verified 11/25/22 14:02) HIVES,THROAT CLOSES FROM RED FOOD DYE Medication List - Last Reconciled 11/25/22 by Marybeth Timmons RN albuterol sulfate 90 mcg/actuation 0 mcg inhalation amiodarone 200 mg PO DAILY atorvastatin 40 mg PO DAILY blood sugar diagnostic (FreeStyle Lite Strips) As directed check sugar twice a day before meals blood-glucose meter (FreeStyle Lite Meter kit) As directed bumetanide Take 2 mg b.i.d. alternating with 3 mg b.i.d. on alternate days orally; carvedilol 6.25 mg PO BID 90 days clotrimazole 1% (Athlete's Foot (clotrimazole)) 1 appl topical BID 4 weeks dulaglutide (Trulicity) 1.5 mg (0.5 mL) subcut QWEEK insulin degludec (Tresiba FlexTouch U-100 insulin) 42 units subcut BEDTIME insulin lispro 12 units subcut TIDAC insulin syringe-needle U-100 (BD Veo Insulin Syringe Ultra-Fine) As directed twice a day lancets (FreeStyle Lancets) As directed losartan 25 mg PO DAILY nystatin (Nystop) 1 appl topical BID-TID pen needle, diabetic (BD Ultra-Fine Short Pen Needle) USE 4 times a day [scale-accommodate weight 300 lbs As directed] spironolactone 25 mg PO DAILY warfarin 5 mg See Protocol PO DAILY Nursing Note INR: 2.6 in therapeutic range pt had Hem / Onc appt f/u and remains cancer free, she will have a f/u appt in 3 months Medications and supplements reviewed has been loosing weight, eating healthier Denies any signs and symptoms of bleeding or bruising or clotting. Bleeding, bruising, clotting discussed Nutritional guidance given - keep eating a mix of fruits and vegetables, cooked greens lower the INR more , and pineapple may raise the INR Dose: 2.5MG X1DAYS/ 5MG X 6 DAYS F/U INR: 3 WEEKS PER PT REQUEST Patient verbalizes understanding of instructions given Anti-Coag Initial Assessment Social Hx Patient Tobacco Use Status: Never used Tobacco alcohol intake: never Alcohol intake frequency: does not drink Cardiovascular Hx: HTN, Angina, CAD, CHF, Arrhythmias, Varicose Veins and Other Lung Disease HX: Asthma Endocrine Hx: Diabetes Musculoskeletal Hx: Arthritis Blood Disorder Hx: Hyperlipidemia GI Hx: Ulcers, Bleeding (GI, rectal) and Other Hx: Kidney Disease Neurological Hx: Serious Head Injury and Migraines/Headaches 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 ) Psych. Illness/Depression: No Coding Level of Care Code Est Patient Level 1 Diagnoses Current use of anticoagulant therapy Z79.01 Assessment & Plan Assessment & Plan (1) Current use of anticoagulant therapy: Code(s): Z79.01 - long term acute care registered nurse (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 of anticoagulants Category: Medical
== END 2022-11-25 14:31 | disposition home or self-care (01) ==
LOC: HO.ACS 13:55
PROVIDERS: PCP Internal Medicine; Visit Provider Internal Medicine
DX: Z79.01 Long term (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 of anticoagulants (principal)

== ENCOUNTER → 2022-11-25 13:55 | Outpatient (BNVA) | payer MEDICARE, SELFPAY | PROVIDERS: PCP Internal Medicine; Visit Provider Internal Medicine | DX: I48.0 Paroxysmal atrial fibrillation (principal); Z79.01 Long term (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 of anticoagulants; Z51.81 Encounter for therapeutic drug level monitoring | CPT/HCPCS: 85610; 99211 ==

== ENCOUNTER 2022-11-30 09:49 | Outpatient (AMB) | payer MEDICARE, SELFPAY ==
[2022-11-30 11:06] VITALS: BP 118/68; PULSE 67; TEMP 36.6; O2SAT 95; BMI 40.1
--- NOTE | 2022-11-30 11:06 | MHC.OFFWIV ---
Intake Vital Signs 11/30/22 11:06 Height 5 ft 5 in Weight 241 lb BMI 40.1 BP 118/68 Blood Pressure Location Rt brachial Position Sitting Pulse 67 Pulse Source Pulse Oximeter Temp 97.9 F Temp Source Temporal Artery Scan Pulse Oximetry (%) 95 Intake Visit Reasons: EP ?infection LT leg Intake Note: pt is here for left leg infection Patient Tobacco Use Status: Never used Tobacco Allergies red dye [Red Dye] Allergy (Severe, Verified 11/30/22 11:06) HIVES,THROAT CLOSES FROM RED FOOD DYE Do you need a note to return to daycare/school/sports/work: Yes HPI HPI Comments History of Present Illness Details This is a 67-year-old female who presents to the office today for sick visit. Patient complaining of erythema of the left lower extremity. Patient states her cats have fleas and she believes that her symptoms started has flea bites. She started to develop worsening erythema and some drainage of the left lower extremity. She denies any fevers or chills. Of note, patient has bilateral lower extremity edema and weight gain of 14 lb over the past 1 month. She denies any shortness of breath. She states her lower extremity edema is essentially at her baseline. She denies any worsening orthopnea or paroxysmal nocturnal dyspnea from her baseline. Patient is taking her diuretics as prescribed. [facility] Medical History (Updated 10/17/22 @ 18:38 by Imelda Harris, EMERGENCY MEDICINE NURSE PRACTITIONER-C) Tinea pedis Acquired deformity of nail Rash of foot History of cardioversion Persistent atrial fibrillation Cardiomyopathy Paroxysmal atrial fibrillation Coronary arteriosclerosis Ischemic cardiomyopathy Colonoscopy refused Incomplete left bundle branch block (LBBB) Endometrial adenocarcinoma Post-menopausal bleeding Type 2 diabetes mellitus with hyperglycemia, with long-term current use of insulin Obesity due to excess calories Diabetes type 2, uncontrolled Vitamin D deficiency Mixed dyslipidemia Papanicolaou smear declined Mammogram declined Osteoarthritis, knee Diabetic neuropathy History of esophagitis Mild intermittent asthma Uterine fibroid History of basal cell carcinoma Osteonecrosis of right hip Hiatal hernia History of cholelithiasis Morbid obesity Essential hypertension Type 2 diabetes mellitus with hyperglycemia, without long-term current use of insulin Irritable bowel syndrome (IBS) Surgical History (Updated 10/17/22 @ 18:35 by Imelda Harris, EMERGENCY MEDICINE NURSE PRACTITIONER-C) S/P cardiac catheterization History of hysterectomy H/O hernia repair Hx of section History of hip surgery Hx of colonoscopy History of cholecystectomy Family History Father Myocardial infarction Cardiovascular disease Mother Diabetes mellitus Essential hypertension Daughter Anxiety disorder Mental health disorder Son Mental health disorder Social History Household Members: Spouse and Children Housing: House Are you a primary post anesthesia care unit nurse to a significant other at home: No Do you presently have visiting nurse or other home services: No Alcohol intake: never Patient Tobacco Use Status: Never used Tobacco e-Cigarette/Vaping Use: Never Used Second Hand Smoke Exposure: No Advance Directives Date on File: 04/08/22 service: No Current occupational status: retired Current occupational exposures/hazards: No Cognitive needs: No Hearing needs: No Vision needs: Yes Review of Systems Const All systems reviewed & are unremarkable except as noted in HPI and below Reports no additional complaints Eyes Reports no additional complaints ENT Reports no additional complaints Card Reports no additional complaints Resp Reports no additional complaints GI Reports no additional complaints Reports no additional complaints Musc Reports no additional complaints Skin/Breast Reports system reviewed and no additional complaints, except as documented Neuro Reports no additional complaints Psych Reports no additional complaints Endo Reports no additional complaints Jace/Lymph Reports no additional complaints Aller/Immun Reports no additional complaints Physical Exam Vital Signs: Last Vital Signs Temp 97.9 F 11/30/22 11:06 Pulse 67 11/30/22 11:06 BP 118/68 11/30/22 11:06 Pulse Ox 95 11/30/22 11:06 BMI result Body Mass Index 40.1 Const General: cooperative, healthy appearing, no acute distress and well developed Orientation/consciousness: patient oriented x3 HEENT Head: Yes normal to inspection Ears: hearing grossly normal bilaterally General nose exam: Normal external nose present Face and sinus: Yes normal facial exam Mouth: Normal oral and palatal mucosa present Eyes General: appearance normal, both eyes and all related structures Pupils: Equal, round and reactive pupils present EOM: EOMs intact bilaterally Resp Effort & Inspection: normal respiratory effort and no respiratory distress Auscultation: clear to auscultation bilaterally Cardio Jugular venous distension: no JVD Rate: regular rate Rhythm: regular rhythm Heart sounds: no gallops, no murmurs and no rubs Peripheral pulses: Peripheral pulses 2+ throughout GI Inspection: No distended Palpation (GI): Soft to palpation and nontender Auscultation: normal bowel sounds Skin Other: Mild erythema of the left lower extremity with serous/mildly purulence drainage. No lymphangitic streaking. No fluctuance or induration appreciated. Neuro General: patient oriented x3 Cranial nerves: Yes CN's II-XII intact bilaterally and Yes Equal, round and reactive pupils present Gait exam (Neuro): Normal gait present Motor exam (neuro): 5/5 motor strength present throughout Extrem Other: 2+ pitting edema of bilateral lower extremities. No calf tenderness to palpation. Lower extremities are equal in circumference. General: Yes full ROM Psych Appearance: grossly normal Mental Status: mental status grossly normal Assessment & Plan Assessment & Plan (1) Cellulitis of left lower extremity: Code(s): L03.116 - Cellulitis of left lower limb Plan: Patient is presenting with erythema and mild drainage of the left lower extremity in the setting of suspected flea bites. On physical examination, she has mild erythema on the left lower extremity with serous/mildly purulence drainage. There is no fluctuance or induration and there is no lymphangitic streaking. Patient was sent home on p.o. doxycycline 100 mg twice daily x7 days. Of note, patient is anticoagulated with warfarin and she follows with the anticoagulation clinic at the hospital. Patient was instructed to call the office on Friday and inform them that she was placed on an antibiotic. She was also recommended to wear SPF and long sleeves/long pants when out in the sun while on doxycycline. Patient is overall nontoxic appearing her vital signs are stable. Patient was instructed to follow-up here or proceed directly to the emergency room if she were to develop fever/chills, worsening erythema, or lymphangitic streaking. Patient verbalizes her understanding and she is in agreement with the plan. (2) Bilateral lower extremity edema: Code(s): R60.0 - Localized edema Plan: Patient with a history of heart failure on bumetanide and spironolactone. She was found to have bilateral lower extremity edema as well as a 14 lb weight gain over the past 1 month. Patient states her bilateral lower extremity edema is essentially at her baseline. She is currently denying any shortness of breath. She has no crackles or rales or JVD on physical examination. Her vital signs are stable and she is maintaining oxygen saturations on room air. Her legs are equal in circumference without calf tenderness to palpation. Recommended elevation of bilateral lower extremities. Recommended continuing taking her diuretics as prescribed. I did recommend the patient go to the emergency room given her 14 lb weight gain in the past 1 month but patient declines at this time. She states she can ?no longer afford it?. Patient is alert and oriented x4 and in my opinion she has the competence to make her own medical decisions. Patient was given strict return precautions including worsening swelling, shortness of breath, worsening paroxysmal nocturnal dyspnea or orthopnea, worsening abdominal distention, and worsening weight gain. Patient is comfortable with being discharged home at this time. Patient verbalizes her understanding and she is in agreement with the plan. Medications: New doxycycline hyclate 100 mg PO BID 14 caps 0RF Coding Level of Care Code Est Pt Level 3 (48190) Diagnoses Cellulitis of left lower extremity L03.116 Bilateral lower extremity edema R60.0
== END 2022-11-30 11:26 | disposition home or self-care (01) ==
PROVIDERS: PCP Internal Medicine; Visit Provider Physician Assistant Medical
DX: L03.116 Cellulitis of left lower limb (principal); R60.0 Localized edema
CPT/HCPCS: 99213

== ENCOUNTER 2022-12-08 19:28 | Emergency (ER) | payer MEDICARE, SELFPAY ==
--- NOTE | ~2022-12-08 | XR_ITS ---
EXAMINATION: XR CHEST 2 VIEWS CLINICAL INFORMATION: Question pneumonia. COMPARISON: Chest radiograph dated 08/05/2022. TECHNIQUE: Frontal and lateral views of the chest were obtained. FINDINGS: The heart, great vessels, pulmonary vasculature and mediastinum are normal. The lungs show no focal infiltrate, effusion or pneumothorax. There is no acute osseous abnormality. XR/XR chest 1V IMPRESSION: No active cardiopulmonary disease.
[2022-12-08 19:47] VITALS: BP 157/77; PULSE 83; RESP 16; TEMP 35.7; O2SAT 96; BMI 37.8
--- NOTE | 2022-12-08 19:50 | ED_ITS ---
HPI - General Adult General Chief complaint: Upper Respiratory Symptoms Stated complaint: sore throat, cough Time Seen by Provider: 12/08/22 21:19 Source: patient, family and old records reviewed Mode of arrival: ambulatory Limitations: no limitations History of Present Illness HPI narrative: 67 yo female with PMH of CAD, LBBB, CKD, PAF on coumadin, DM, asthma, HLD, HTN became sick after her daughter brought home URI - she now has lost her voice and has a sore throat with a cough and some sputum. It is not getting better. She has no fevers, can move the neck. She feels it hurts to swallow and talk. She has not had this before. She can swallow her saliva and liquids. MD complaint: sore throat Onset (ago): day(s) (4) Location: mouth Radiation: non-radiation Severity: severe Quality: aching and constant Pain Consistency: constant Relieving factors: none Exacerbating factors: other (swallowing, sleeping, talking) Associated symptoms: cough Treatments prior to arrival: none Related Data Home Medications Medication Instructions Recorded Confirmed blood-glucose meter (FreeStyle 10/25/21 11/25/22 Lite Meter kit) lancets 28 gauge (FreeStyle 10/25/21 11/25/22 Lancets) insulin degludec 100 unit/mL (3 42 unit subcut BEDTIME 03/12/22 11/25/22 mL) subcutaneous pen (Tresiba FlexTouch U-100 insulin) pen needle, diabetic 31 gauge x 06/04/22 11/25/22 5/16 (BD Ultra-Fine Short Pen Needle) losartan 25 mg tablet 25 mg PO DAILY 08/01/22 11/25/22 albuterol sulfate 90 mcg/actuation 0 mcg inhalation 08/19/22 11/25/22 aerosol inhaler nystatin 100,000 unit/gram topical 1 appl topical BID-TID 11/25/22 11/25/22 powder (Nystop) Previous Rx's Medication Instructions Recorded blood sugar diagnostic (FreeStyle #100 ea 10/11/20 Lite Strips) insulin syringe-needle U-100 1/2 #200 ea 11/13/21 mL 31 gauge x 15/64 (BD Veo Insulin Syringe Ultra-Fine) spironolactone 25 mg tablet 25 mg PO DAILY #60 tabs 04/22/22 scale-accommodate weight 300 lbs #1 ea 05/16/22 carvedilol 6.25 mg tablet 6.25 mg PO BID 90 days #180 tabs 06/06/22 clotrimazole 1 % topical cream 1 appl topical BID 4 weeks #45 08/20/22 (Athlete's Foot (clotrimazole)) grams bumetanide 2 mg tablet See Rx Instructions PO .COMPLEX 09/04/22 #90 tabs warfarin 2.5 mg tablet 5 mg PO DAILY #60 tabs 09/24/22 dulaglutide 1.5 mg/0.5 mL 1.5 mg (0.5 mL) subcut QWEEK #2 mL 10/18/22 subcutaneous pen injector (Trulicity) amiodarone 200 mg tablet 200 mg PO DAILY #30 tabs 10/24/22 atorvastatin 40 mg tablet 40 mg PO DAILY #90 tabs 11/04/22 doxycycline hyclate 100 mg capsule 100 mg PO BID #14 caps 11/30/22 insulin lispro 100 unit/mL 5 unit (0.05 mL) subcut TID #3 mL 12/06/22 subcutaneous pen amoxicillin 875 mg-potassium 1 tab PO BID #13 tabs 12/08/22 clavulanate 125 mg tablet Allergies Allergy/AdvReac Type Severity Reaction Status Date / Time red dye [Red Dye] Allergy Severe HIVES,THROAT Verified 11/30/22 11:06 CLOSES FROM RED FOOD DYE Review of Systems 2 Review of Systems: Constitutional : No Fever, No Chills, No Fatigue ENT/Mouth : pos sore throat, posRhinorrhea Eyes: No Eye Pain, No Swelling, No Redness Cardiovascular : No Chest Pain, No SOB, No Dyspnea on Exertion Respiratory : pos Cough, pos Sputum Gastrointestinal : No Nausea, No Vomiting, No Diarrhea, No abdominal Pain Genitourinary : No Dysuria, No Urinary Frequency, No Hematuria, Musculoskeletal : No joint pain, No Myalgias, No Joint Swelling Skin : No Skin Lesions, No rash Neuro : No Weakness, No Numbness, No Dizziness, no Headache Psych : No Anxiety/Panic, No Depression All other systems reviewed and are negative PMFSH Past Medical History Attestation statement: The following information was validated with the patient. Source: old records reviewed Medical History Tinea pedis Acquired deformity of nail Rash of foot History of cardioversion Persistent atrial fibrillation Cardiomyopathy Paroxysmal atrial fibrillation Coronary arteriosclerosis Ischemic cardiomyopathy Colonoscopy refused Incomplete left bundle branch block (LBBB) Endometrial adenocarcinoma Post-menopausal bleeding Type 2 diabetes mellitus with hyperglycemia, with long-term current use of insulin Obesity due to excess calories Diabetes type 2, uncontrolled Vitamin D deficiency Mixed dyslipidemia Papanicolaou smear declined Mammogram declined Osteoarthritis, knee Diabetic neuropathy History of esophagitis Mild intermittent asthma Uterine fibroid History of basal cell carcinoma Osteonecrosis of right hip Hiatal hernia History of cholelithiasis Morbid obesity Essential hypertension Type 2 diabetes mellitus with hyperglycemia, without long-term current use of insulin Irritable bowel syndrome (IBS) Surgical History S/P cardiac catheterization History of hysterectomy H/O hernia repair Hx of section History of hip surgery Hx of colonoscopy History of cholecystectomy Family History Family History Father Myocardial infarction Cardiovascular disease Mother Diabetes mellitus Essential hypertension Daughter Anxiety disorder Mental health disorder Son Mental health disorder Social History Social History Household Members: Spouse and Children Housing: House Are you a primary care professionals to a significant other at home: No Do you presently have visiting nurse or other home services: No Alcohol intake: never Patient Tobacco Use Status: Never used Tobacco Smoked in Last 30 Days: No e-Cigarette/Vaping Use: Never Used Second Hand Smoke Exposure: No Use of substances other than those prescribed or required for medical reasons: No Advance Directives: Yes Advance Directives on File: Yes Advance Directives Date on File: 04/08/22 service: No Current occupational status: retired Current occupational exposures/hazards: No Cognitive needs: No Hearing needs: No Vision needs: Yes Physical Exam ED Vital Signs: Vital Signs - 24 hr 12/08/22 19:47 12/08/22 21:29 12/08/22 21:52 Temperature 96.3 F L 98.0 F Pulse Rate 83 74 Respiratory Rate 16 18 Blood Pressure 157/77 H 149/67 H Pulse Oximetry 96 95 98 Oxygen Delivery Method Room Air Room Air Room Air BMI result Body Mass Index 37.8 Appearance: Alert. Oriented X3. No acute distress. Eyes: Pupils equal, round and reactive to light. ENT: Pharynx erythema but no exudates or sig swelling noted, hoarse voice no sublingual or submandibular swelling I do not appreciate a mass in the neck itself no trismus. Neck: Normal inspection. Neck supple. CVS: Normal heart rate and rhythm. Pulses normal. Respiratory: No respiratory distress. Breath sounds normal. Abdomen: Soft and nontender. Skin: Skin warm and dry. Normal skin color. Normal skin turgor. Extremities: 1+ lower extremity edema. Neuro: Oriented X 3. No motor deficit. No sensory deficit. Course Course Course Narrative: RME: 67 yold female with pmh of asthma and ChF presents to the ED for coughing and sore throat. Daughter was sick first and now she is sick. patient coughing up yellow phelghm. patient states no shortness of breath, chest pain, or leg swelling. swabs and chest xray ordered. Due to history of CHF. labs and EKG ordered Medications Administered Discontinued Medications Generic Name Dose Route Start Last Admin Trade Name Freq PRN Reason Stop Dose Admin Amoxicillin/Clavulanate Potassium 875 mg 12/08/22 21:39 12/08/22 21:50 Amoxicillin/Potassium Clav 875 Mg Tablet PO 12/08/22 21:40 875 mg ONCE ONE Administration Lidocaine HCl 15 ml 12/08/22 21:39 12/08/22 21:48 Lidocaine Hcl Viscous 2 % 15 Ml Solution MUCOUS MEM 12/08/22 21:40 15 ml ONCE ONE Administration Medical Decision Making Medical Decision Making MDM Narrative: 67 yo female with PMH of CAD, LBBB, CKD, PAF on coumadin, DM, asthma, HLD, HTN here with URI symptoms but no fevers and mostly c/o sore throat - her daughter brought home URI. At this time not toxic, tolerating PO, able to swallow saliva does have component of laryngitis. At this time I am going to obtain swabs and CXR. She has no signs of swelling in neck or ludwigs. She can move neck and no palpable masses seen. 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 If swabs negative given co-morbid conditions will start on augmentin with INR precautions and probiotic. Differential Diagnosis Differential Diagnoses: The differential diagnosis associated with the presentation includes viral syndrome, strep, bronchitis Admission/Observation Consideration of admission/observation: Escalation of care including admission/observation considered not toxic, tolerating PO stable, VS no hypoxia can be managed as outpatient Lab Data MDM Lab Attestation statement: I reviewed the patient's lab results. 12/08/22 20:34 12/08/22 20:34 Labs: Lab Results 12/08/22 Range/Units 20:34 WBC 8.2 (4.8-10.8) X10*3/uL RBC 4.37 (4.20-5.50) X10*6/uL Hgb 13.3 (12.0-16.0) g/dl Hct 40.2 (37.0-47.0) % MCV 92.0 (80.0-98.0) fL MCH 30.4 (27.0-33.0) pg MCHC 33.1 (31.0-35.0) g/dl RDW 13.2 (11.0-16.0) % Plt Count 217 (160-400) X10*3/uL MPV 9.6 (9.4-12.3) fL Immature Gran % (Auto) 0.4 (0.0-0.4) % Neut % (Auto) 66.9 (45-73) % Lymph % (Auto) 22.7 (20-40) % [place] % (Auto) 6.6 (2-11) % Eos % (Auto) 2.8 (0-4) % Baso % (Auto) 0.6 (0-2) % Lymph # (Auto) 1.9 (1.2-4.9) X10*3/uL [place] # (Auto) 0.5 (0.1-1.2) X10*3/uL Eos # (Auto) 0.2 (0.0-0.4) X10*3/uL Baso # (Auto) 0.1 (0.0-0.2) X10*3/uL Abs Immat Gran (auto) 0.03 (0.00-0.03) X10*3/uL Absolute Neuts (auto) 5.5 (2.0-8.3) x10*3/uL Absolute Nucleated RBC 0.000 (0.0-0.012) X10*3/uL Nucleated RBC % (auto) 0.0 (0.0-0.2) /100WBC PT 30.3 H (11.1-13.3) SEC INR 2.5 H D (0.9-1.1) APTT 45.1 H D (26.0-36.4) SEC Sodium 135 (135-145) mmol/L Potassium 3.9 (3.3-5.1) mmol/L Chloride 96 (96-108) mmol/L Carbon Dioxide 23 (22-29) mmol/L Anion Gap 20 (12-20) BUN 38 H (9-16) mg/dL Creatinine 1.34 (0.5-1.4) mg/dL Estim Creat Clear Calc 49.1 Estimated GFR 40 Random Glucose 357 H* (60-115) mg/dL Calcium 8.7 (8.4-10.2) mg/dL Total Bilirubin 0.4 (0.0-1.0) mg/dL AST 15 (5-31) U/L ALT 17 (0-31) U/L Alkaline Phosphatase 100 (39-117) U/L Troponin I High Sens 7.6 (<3.5-17.0) ng/L B-Natriuretic Peptide 136 H (<100) pg/mL Total Protein 6.8 (6.5-8.0) g/dL Albumin 3.5 (3.5-5.0) g/dL COVID-19 (RAEANN) Negative (Negative) COVID-19 Clin Com See Note Influenza Type A (STEFANIE) Negative (Negative) Influenza Type B (STEFANIE) Negative (Negative) Influenza A & B Note See Note S. pyogenes GrpA STEFANIE Negative (Negative) Independent Interpretation I performed an independent interpretation of an: EKG and Plain X-Ray (no pneumonia) Interpretation: Rate: 76 Rhythm: NSR [place]: left Normal P waves. Normal AKILA. LBBB ST T wave : normal no AGATA qTC:at baseline 499 prior studies: no acute ischemia, unchanged from priors The study has been interpreted contemporaneously by me. . Radiology Impression Discussion of test interpretation with radiology: I have reviewed the radiologist's reading. Independent Historian Clinical information obtained from an independent historian. History obtained from or confirmed by: Other (daughter) External Record Review External record reviewed: Inpatient record Prescription Management I considered prescription management with: Antibiotic Chronic Conditions Patient?s care impacted by: Diabetes Discharge Plan Discharge Clinical Impression: Pharyngitis Patient Disposition: Home, Self-Care Instructions: Pharyngitis (ED) Additional Instructions: take a probiotic while on augmentin. more than 6 loose stools a day is not normal. return for worsening pain, difficulty swallowing, new swelling, inability to move neck, fevers, or any other concerns. your covid / flu and strep were negative. monitor your INR it is 2.5 antibiotics can increase your INR Prescriptions: New amoxicillin-pot clavulanate 875-125 mg tablet 1 tab PO BID Qty: 13 0RF No Action (DME) FreeStyle Lite Strips Strip See Rx Instructions .Route Qty: 100 5RF Rx Instructions: As directed check sugar twice a day before meals (DME) insulin syringe-needle U-100 [BD Veo Insulin Syringe UF] 1/2 mL 31 gauge x 15/64 syringe See Rx Instructions .Route Qty: 200 1RF Rx Instructions: As directed twice a day (DME) scale-accommodate weight 300 lbs See Rx Instructions .Route .MEDSUPPLY Qty: 1 0RF Rx Instructions: As directed carvedilol 6.25 mg tablet 6.25 mg PO BID 90 Days Qty: 180 2RF warfarin 2.5 mg tablet 5 mg PO DAILY Qty: 60 3RF Protocol: Dose Management Condition: Friday (Week One) Dose/Route: 5 mg Instruction: 2 x 2.5 mg tablets Condition: Friday Dose/Route: 5 mg Instruction: 2 x 2.5 mg tablets Condition: Friday Dose/Route: 5 mg Instruction: 2 x 2.5 mg tablets Condition: Friday Dose/Route: 2.5 mg Instruction: 1 x 2.5 mg tablet Condition: Dose/Route: 5 mg Instruction: 2 x 2.5 mg tablets Condition: Friday Dose/Route: 5 mg Instruction: 2 x 2.5 mg tablets Condition: Friday Dose/Route: 5 mg Instruction: 2 x 2.5 mg tablets Condition: Friday (Week Two) Dose/Route: 5 mg Instruction: 2 x 2.5 mg tablets Condition: Friday Dose/Route: 5 mg Instruction: 2 x 2.5 mg tablets Condition: Friday Dose/Route: 5 mg Instruction: 2 x 2.5 mg tablets Condition: Friday Dose/Route: 2.5 mg Instruction: 1 x 2.5 mg tablet Condition: Dose/Route: 5 mg Instruction: 2 x 2.5 mg tablets Condition: Friday Dose/Route: 5 mg Instruction: 2 x 2.5 mg tablets Condition: Friday Dose/Route: 5 mg Instruction: 2 x 2.5 mg tablets Protocol Text: Adjustment Start Date: Friday11/25/22 INR Value: 2.6 INR Date: 11/25/22 Recheck Date: 12/16/22 Additional Instructions: EAT A MIX OF FRUITS AND VEGETABLES Rx Instructions: green tablet , pt allergic to red dye Trulicity 1.5 mg/0.5 mL pen injector 1.5 mg subcut QWEEK Qty: 2 4RF amiodarone 200 mg tablet 200 mg PO DAILY Qty: 30 5RF atorvastatin 40 mg tablet 40 mg PO DAILY Qty: 90 3RF insulin lispro 100 unit/mL insulin pen 5 unit subcut TID Qty: 3 4RF insulin degludec [Tresiba FlexTouch U-100] 100 unit/mL (3 mL) insulin pen 42 unit subcut BEDTIME clotrimazole [Athlete's Foot (clotrimazole)] 1 % cream 1 appl topical BID 28 Days Qty: 45 0RF doxycycline hyclate 100 mg capsule 100 mg PO BID Qty: 14 0RF (DME) blood-glucose meter [FreeStyle Lite Meter] Kit See Rx Instructions .Route Rx Instructions: As directed (DME) lancets [FreeStyle Lancets] 28 gauge misc See Rx Instructions .Route Rx Instructions: As directed spironolactone 25 mg tablet 25 mg PO DAILY Qty: 60 3RF (DME) pen needle, diabetic [BD Ultra-Fine Short Pen Needle] 31 gauge x 5/16 needle See Rx Instructions .ROUTE .COMPLEX Dose Instruction: USE 1 PEN NEEDLE ONCE DAILY WITH LANTUS INSULIN Rx Instructions: USE 4 times a day bumetanide 2 mg tablet See Rx Instructions PO .COMPLEX Qty: 90 3RF Rx Instructions: Take 2 mg b.i.d. alternating with 3 mg b.i.d. on alternate days orally; losartan 25 mg tablet 25 mg PO DAILY albuterol sulfate 90 mcg/actuation HFA aerosol inhaler 0 mcg inhalation nystatin [Nystop] 100,000 unit/gram powder 1 appl topical BID-TID Interventions: ED Discharge Assessment Last Done: 12/08/22 22:03 Discharge Date/Time: 12/08/22 22:03
--- NOTE | 2022-12-08 19:52 | ECG_ITS ---
Test Reason : COUGH Blood Pressure : / mmHG Vent. Rate : 076 BPM Atrial Rate : 076 BPM P-R Int : 194 ms QRS Dur : 152 ms QT Int : 444 ms P-R-T Axes : 065 -43 081 degrees QTc Int : 499 ms Normal sinus rhythm Left axis deviation Left bundle branch block Abnormal ECG When compared with ECG of 05-AUG-2022 10:57, No significant change was found Referred By: Hernandez Soto Electronically Signed By:JAGDISH DO
[2022-12-08 20:41] LABS: Basophils Absolute Auto 0.1 X10*3/uL (0.0-0.2); Basophils Percent Auto 0.6 % (0-2); Eosinophils Absolute Auto 0.2 X10*3/uL (0.0-0.4); Eosinophils Percent Auto 2.8 % (0-4); Hematocrit 40.2 % (37.0-47.0); Hemoglobin 13.3 g/dl (12.0-16.0); Imm Gran Abs Auto 0.03 X10*3/uL (0.00-0.03); Imm Gran Pct Auto 0.4 % (0.0-0.4); Lymphocytes Absolute Auto 1.9 X10*3/uL (1.2-4.9); Lymphocytes Percent Auto 22.7 % (20-40); MANUAL DIFF FLAG NO; Mean Corpuscular HGB Conc 33.1 g/dl (31.0-35.0); Mean Corpuscular Hemoglobin 30.4 pg (27.0-33.0); Mean Platelet Volume 9.6 fL (9.4-12.3); Monocytes Absolute Auto 0.5 X10*3/uL (0.1-1.2); Monocytes Percent Auto 6.6 % (2-11); Neutrophils Absolute Auto 5.5 x10*3/uL (2.0-8.3); Neutrophils Percent Auto 66.9 % (45-73); Platelet Count 217 X10*3/uL (160-400); Red Blood Count 4.37 X10*6/uL (4.20-5.50); Red Cell Distribution Width 13.2 % (11.0-16.0); White Blood Count 8.2 X10*3/uL (4.8-10.8)
[2022-12-08 20:49] LABS: INTERNATIONAL NORM RATIO 2.5 (0.9-1.1); Prothrombin Time 30.3 SEC (11.1-13.3)
[2022-12-08 20:52] LABS: Partial Thromboplastin Time 45.1 SEC (26.0-36.4)
[2022-12-08 20:58] LABS: COVID-19 Test Negative (Negative); IDNOW Serial# 08D9AD1C; IDNOW Serial# BCCEAD1C; Strep A Nucleic Acid Negative (Negative)
[2022-12-08 20:59] LABS: IDNOW Serial# 9DB6401D; Influenza A Negative (Negative); Influenza B2 Negative (Negative)
[2022-12-08 21:01] LABS: B Type Natriuretic Peptide 136 pg/mL (<100)
[2022-12-08 21:04] LABS: Troponin-I High Sensitivity 7.6 ng/L (<3.5-17.0)
[2022-12-08 21:11] LABS: Carbon Dioxide 23 mmol/L (22-29)
[2022-12-08 21:12] LABS: Alanine Aminotransferase 17 U/L (0-31); Albumin Level 3.5 g/dL (3.5-5.0); Alkaline Phosphatase 100 U/L (39-117); Anion Gap 20 (12-20); Aspartate Amino Transferase 15 U/L (5-31); Bilirubin Total 0.4 mg/dL (0.0-1.0); Blood Urea Nitrogen 38 mg/dL (9-16); Calcium 8.7 mg/dL (8.4-10.2); Chloride 96 mmol/L (96-108); Creatinine Clr Calc Pharmacy 49.1; Estimated Glomerular Filt Rate 40; Glucose Random 357 mg/dL (60-115); Potassium 3.9 mmol/L (3.3-5.1); Sodium 135 mmol/L (135-145); Total Protein 6.8 g/dL (6.5-8.0)
[2022-12-08 21:29] VITALS: BP 149/67; PULSE 74; RESP 18; TEMP 36.7; O2SAT 95
[2022-12-08] MEDS: Lidocaine HCl Viscous 2 % 15 ML SOLUTION MUCOUS MEM (21:48)
[2022-12-08] MEDS: Amoxicillin/Potassium Clav 875 MG TABLET PO (21:50)
[2022-12-08 21:52] VITALS: O2SAT 98
== END 2022-12-08 22:03 | disposition home or self-care (01) ==
PROVIDERS: Physician Assistant; Emergency Provider Emergency Medicine; PCP Internal Medicine
DX: J02.9 Acute pharyngitis, unspecified (principal); R05.9 Cough, unspecified; R94.31 Abnormal electrocardiogram [ECG] [EKG]; R06.02 Shortness of breath; I25.10 Atherosclerotic heart disease of native coronary artery without angina pectoris; Z20.822 Contact with and (suspected) exposure to COVID-19; Z20.828 Contact with and (suspected) exposure to other viral communicable diseases; Z79.01 Long term (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 of anticoagulants; Z79.899 Other long term (current) drug therapy
CPT/HCPCS: 36415; 71045; 80053; 83880; 84484; 85025; 85610; 85730; 87502; 87635; 87651; 93005; 99284; 99285

== ENCOUNTER 2022-12-16 13:52 | Outpatient (AMB) | payer MEDICARE, SELFPAY ==
--- NOTE | 2022-12-16 13:56 | MHC.OFFVISCO ---
Intake Intake Visit Reasons: Anticoagulation Allergies red dye [Red Dye] Allergy (Severe, Verified 12/16/22 13:52) HIVES,THROAT CLOSES FROM RED FOOD DYE Medication List - Last Reconciled 12/16/22 by Agnes Weaver RN albuterol sulfate 90 mcg/actuation 0 mcg inhalation amiodarone 200 mg PO DAILY atorvastatin 40 mg PO DAILY blood sugar diagnostic (FreeStyle Lite Strips) As directed check sugar twice a day before meals blood-glucose meter (FreeStyle Lite Meter kit) As directed bumetanide Take 2 mg b.i.d. alternating with 3 mg b.i.d. on alternate days orally; carvedilol 6.25 mg PO BID 90 days clotrimazole 1% (Athlete's Foot (clotrimazole)) 1 appl topical BID 4 weeks doxycycline hyclate 100 mg PO BID dulaglutide (Trulicity) 1.5 mg (0.5 mL) subcut QWEEK insulin degludec (Tresiba FlexTouch U-100 insulin) 42 units subcut BEDTIME insulin lispro 5 units (0.05 mL) subcut TID insulin syringe-needle U-100 (BD Veo Insulin Syringe Ultra-Fine) As directed twice a day lancets (FreeStyle Lancets) As directed losartan 25 mg PO DAILY nystatin (Nystop) 1 appl topical BID-TID pen needle, diabetic (BD Ultra-Fine Short Pen Needle) USE 4 times a day [scale-accommodate weight 300 lbs As directed] spironolactone 25 mg PO DAILY warfarin 5 mg See Protocol PO DAILY Nursing Note INR: 2.7- in therapeutic range Medications and supplements reviewed- augmentin- completed 7 days course on 12/15/22 No changes in health, diet, medications, or supplements, Denies any signs and symptoms of bleeding or bruising or clotting. Bleeding, bruising, clotting discussed Nutritional guidance given Dose: 5mg x 6, 2.5mg x 1 F/U INR: 1 week Patient verbalizes understanding of instructions given [facility] to [facility] [place] on 12/08/22- completed course of amox/clav x 7 days- delayed onset for this antibiotic Anti-Coag Initial Assessment Social Hx Patient Tobacco Use Status: Never used Tobacco alcohol intake: never Alcohol intake frequency: does not drink Cardiovascular Hx: HTN, Angina, CAD, CHF, Arrhythmias, Varicose Veins and Other Lung Disease HX: Asthma Endocrine Hx: Diabetes Musculoskeletal Hx: Arthritis Blood Disorder Hx: Hyperlipidemia GI Hx: Ulcers, Bleeding (GI, rectal) and Other Hx: Kidney Disease Neurological Hx: Serious Head Injury and Migraines/Headaches 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 ) Psych. 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
[2022-12-16 14:00] LABS: Prothrombin Time Whole Bld POC 32.8 sec (11.1-13.5); ~PT, ~INR - Anti Coag Clinic 2.7 (0.9-1.1)
== END 2022-12-16 14:06 | disposition home or self-care (01) ==
LOC: HO.ACS 13:52
PROVIDERS: PCP Internal Medicine; Visit Provider Internal Medicine
DX: Z79.01 Long term (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 of anticoagulants (principal)

== ENCOUNTER → 2022-12-16 13:52 | Outpatient (BNVA) | payer MEDICARE, SELFPAY | PROVIDERS: PCP Internal Medicine; Visit Provider Internal Medicine | DX: I48.92 Unspecified atrial flutter (principal); I11.0 Hypertensive heart disease with heart failure; I50.20 Unspecified systolic (congestive) heart failure; Z51.81 Encounter for therapeutic drug level monitoring; Z79.01 Long term (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 of anticoagulants | CPT/HCPCS: 85610; 99211 ==

== ENCOUNTER 2022-12-24 14:15 | Outpatient (AMB) | payer MEDICARE, SELFPAY ==
--- NOTE | 2022-12-24 14:38 | MHC.OFFVISCO ---
Intake Intake Visit Reasons: Anticoagulation Allergies red dye [Red Dye] Allergy (Severe, Verified 12/24/22 14:18) HIVES,THROAT CLOSES FROM RED FOOD DYE Medication List - Last Reconciled 12/24/22 by Marybeth Timmons RN albuterol sulfate 90 mcg/actuation 0 mcg inhalation amiodarone 200 mg PO DAILY atorvastatin 40 mg PO DAILY blood sugar diagnostic (FreeStyle Lite Strips) As directed check sugar twice a day before meals blood-glucose meter (FreeStyle Lite Meter kit) As directed bumetanide Take 2 mg b.i.d. alternating with 3 mg b.i.d. on alternate days orally; carvedilol 6.25 mg PO BID 90 days clotrimazole 1% (Athlete's Foot (clotrimazole)) 1 appl topical BID 4 weeks dulaglutide (Trulicity) 1.5 mg (0.5 mL) subcut QWEEK insulin degludec (Tresiba FlexTouch U-100 insulin) 42 units subcut BEDTIME insulin lispro 5 units (0.05 mL) subcut TID insulin syringe-needle U-100 (BD Veo Insulin Syringe Ultra-Fine) As directed twice a day lancets (FreeStyle Lancets) As directed losartan 25 mg PO DAILY nystatin (Nystop) 1 appl topical BID-TID pen needle, diabetic (BD Ultra-Fine Short Pen Needle) USE 4 times a day [scale-accommodate weight 300 lbs As directed] spironolactone 25 mg PO DAILY warfarin 5 mg See Protocol PO DAILY Nursing Note INR: 2.2 in therapeutic range Medications and supplements reviewed COMPLETED 2 COURSES OF ANTBXS 12/15/22- CAN HAVE DELAYED INR EFFECTS, PT STARTED PROBIOTIC GUMMIES DAILY THAT MAY MINIMIZE THE EFFECTS OF ANTIBIOTIC RAISING THE INR AND YEAST INFECTION, Denies any signs and symptoms of bleeding or bruising or clotting. Bleeding, bruising, clotting discussed Nutritional guidance given- KEEP UP WEEKLY GREENS AT THE END OF THE WEEK INCASE DELAYD ONSET OF ANTBX Dose: KEEP SAME 2.5MG WED/ 5MG X 6 DAYS F/U INR: 2 WEEKS Patient verbalizes understanding of instructions given Anti-Coag Initial Assessment Social Hx Patient Tobacco Use Status: Never used Tobacco alcohol intake: never Alcohol intake frequency: does not drink Cardiovascular Hx: HTN, Angina, CAD, CHF, Arrhythmias, Varicose Veins and Other Lung Disease HX: Asthma Endocrine Hx: Diabetes Musculoskeletal Hx: Arthritis Blood Disorder Hx: Hyperlipidemia GI Hx: Ulcers, Bleeding (GI, rectal) and Other Hx: Kidney Disease Neurological Hx: Serious Head Injury and Migraines/Headaches 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 ) Psych. 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
== END 2022-12-24 14:41 | disposition home or self-care (01) ==
LOC: HO.ACS 14:15
PROVIDERS: PCP Internal Medicine; Visit Provider Internal Medicine
DX: Z79.01 Long term (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 of anticoagulants (principal)

== ENCOUNTER → 2022-12-24 14:15 | Outpatient (BNVA) | payer MEDICARE, SELFPAY | PROVIDERS: PCP Internal Medicine; Visit Provider Internal Medicine | DX: I48.0 Paroxysmal atrial fibrillation (principal); Z79.01 Long term (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 of anticoagulants; Z51.81 Encounter for therapeutic drug level monitoring | CPT/HCPCS: 85610; 99211 ==

== ENCOUNTER 2023-01-06 08:29 | Outpatient (AMB) | payer OTHER, SELFPAY ==
--- NOTE | 2023-01-06 08:34 | MHC.PC.OV ---
Vital Signs 01/06/23 08:35 Height 5 ft 5 in Weight 239 lb 2 oz BMI 39.8 BP 160/98 H Blood Pressure Location Lt brachial Position Sitting Pulse 78 Pulse Source Pulse Oximeter Pulse Oximetry (%) 100 Oxygen Delivery Method Room Air Intake Visit Reasons: PE Intake Note: pt is here for a PE Allergies red dye [Red Dye] Allergy (Severe, Verified 01/06/23 08:38) HIVES,THROAT CLOSES FROM RED FOOD DYE Medication List - Last Reconciled 01/06/23 by Lily Menjivar MD albuterol sulfate 90 mcg/actuation 0 mcg inhalation amiodarone 200 mg PO DAILY atorvastatin 40 mg PO DAILY blood sugar diagnostic (FreeStyle Lite Strips) As directed check sugar twice a day before meals blood-glucose meter (FreeStyle Lite Meter kit) As directed bumetanide Take 2 mg b.i.d. alternating with 3 mg b.i.d. on alternate days orally; carvedilol 6.25 mg PO BID 90 days clotrimazole 1% (Athlete's Foot (clotrimazole)) 1 appl topical BID 4 weeks dulaglutide (Trulicity) 1.5 mg (0.5 mL) subcut QWEEK insulin degludec (Tresiba FlexTouch U-100 insulin) 42 units subcut BEDTIME insulin lispro 12 units subcut TID insulin syringe-needle U-100 (BD Veo Insulin Syringe Ultra-Fine) As directed twice a day lancets (FreeStyle Lancets) As directed nystatin (Nystop) 1 appl topical BID-TID pen needle, diabetic (BD Ultra-Fine Short Pen Needle) USE 4 times a day [PROBIOTIC GUMMY PO] [scale-accommodate weight 300 lbs As directed] spironolactone 25 mg PO DAILY warfarin 5 mg See Protocol PO DAILY Tobacco use date assessed: 01/06/23 Fall risk assessment: No Falls in past year Last assessed Fall Risk: 01/06/23 Dental Screening Dental Screen Date: 01/06/23 Did you have a dental visit in the last 12 months?: No Did you have a dental problem in the last 6 months where you did not have access to dental care?: No Was dental information given to patient?: No HPI PE HPI Details 67 year old Lady with 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 She is overdue for her colon cancer screening and screening mammogram, has refused to do both procedures. She is due for flu shot and her COVID booster as well as shingles vaccine. She already has had her Prevnar 20 given on previous visits. Patient confused with what medication she is taking, blood pressure is high today, but patient states she is not taking losartan at all. She also missed her appointment with endocrine last November 2022, and hemoglobin A1c now is at 11.7%. Patient states that she did not keep the appointment as she could not afford the co-pay for the specialist. Has not really been checking her blood sugar regularly and has been taking her Tresiba rx irregularly , trying to stretch her medication due to the high cost of the medication . She has also not been taking her insulin lispro, 12 units 3 times a day before meals as she has been having difficulty getting her prescriptions filled due to financial issues. FORMERLY [facility], [facility] Medical History (Updated 01/06/23 @ 09:04 by Lily Menjivar MD) History of uterine cancer Personal history of malignant neoplasm of other parts of uterus Persistent atrial fibrillation Tinea pedis History of cardioversion Cardiomyopathy Coronary arteriosclerosis Ischemic cardiomyopathy Colonoscopy refused Incomplete left bundle branch block (LBBB) Endometrial adenocarcinoma Post-menopausal bleeding Type 2 diabetes mellitus with hyperglycemia, with long-term current use of insulin Obesity due to excess calories Diabetes type 2, uncontrolled Vitamin D deficiency Mixed dyslipidemia Papanicolaou smear declined Mammogram declined Osteoarthritis, knee Diabetic neuropathy History of esophagitis Mild intermittent asthma Uterine fibroid History of basal cell carcinoma Osteonecrosis of right hip Hiatal hernia History of cholelithiasis Morbid obesity Essential hypertension Type 2 diabetes mellitus with hyperglycemia, without long-term current use of insulin Irritable bowel syndrome (IBS) Surgical History S/P cardiac catheterization History of hysterectomy H/O hernia repair Hx of section History of hip surgery Hx of colonoscopy History of cholecystectomy Family History Father Myocardial infarction Cardiovascular disease Mother Diabetes mellitus Essential hypertension Daughter Anxiety disorder Mental health disorder Son Mental health disorder Social History Household Members: Spouse and Children Housing: House Are you a primary health care / medical job titles to a significant other at home: No Do you presently have visiting nurse or other home services: No Alcohol intake: never Patient Tobacco Use Status: Never used Tobacco e-Cigarette/Vaping Use: Never Used Second Hand Smoke Exposure: No Advance Directives Date on File: 04/08/22 service: No Current occupational status: retired Current occupational exposures/hazards: No Cognitive needs: No Hearing needs: No Vision needs: Yes Questionnaire Thrive Questionnaire Date Thrive assessed: 03/28/22 AUDIT C Alcohol Use Questionnaire (AUDIT-C) 1. How often do you have a drink containing alcohol?: Never Total Score: 0 HUMAIRA-7 AMB Questionnaire HUMAIRA-7 Date HUMAIRA - 7 assessed: 03/28/22 Source: Developed by Drs. Uriel Falk, Rosie Felipe, Hasmukh Kumar and colleagues, with an educational sandra from [employer]. Review of Systems Const Denies fever(s), Denies headache(s), Denies lethargy and Denies weakness Eyes Reports no additional complaints ENT Denies dizziness and Denies headache(s) Card Denies chest pain, Denies chest pain with activity, Denies syncope, Denies rapid heart rate, Denies pedal edema, Denies lightheadedness, Denies palpitations and Denies dyspnea Resp Denies cough and Denies dyspnea GI Reports as per HPI Reports no additional complaints Musc Denies abnormal gait, Denies muscle cramps, Denies muscle weakness, Denies numbness, Denies radiating pain into limb and Reports tingling Skin/Breast Details: Mildly pruritic rash on plantar aspects of both feet Neuro Denies abnormal gait, Denies dizziness, Denies syncope, Denies headache(s), Denies numbness, Reports tingling, Reports paresthesias (Lower extremities) and Denies weakness Psych Reports no additional complaints Endo Denies palpitations Jace/Lymph Reports no additional complaints, Reports easy bleeding and Reports easy bruising Aller/Immun Reports no additional complaints Physical exam (Primary Care) Vital Signs: Last Vital Signs Pulse 78 01/06/23 08:35 BP 160/98 H 01/06/23 08:35 Pulse Ox 100 01/06/23 08:35 Oxygen Delivery Method Room Air 01/06/23 08:35 BMI result Body Mass Index 39.8 Tobacco/Smoking Status: Tobacco use Status Tobacco use date assessed 01/06/23 01/06/23 08:40 Patient Tobacco Use Status Never used Tobacco 01/06/23 08:34 e-Cigarette/Vaping Use Never Used 01/06/23 08:34 Thrive Assessment: Date of Thrive Assessment Date Thrive assessed 03/28/22 01/06/23 08:34 Const General: comfortable and no acute distress Nutritional Appearance: obese Orientation/consciousness: patient oriented x3 HENMT Ears: hearing grossly normal bilaterally and external ears normal General nose exam: Normal external nose present and No nasal discharge present Mouth: oropharynx normal and moist mucous membranes Eyes General: appearance normal, both eyes and all related structures Neck Neck: Yes full ROM, Yes no lymphadenopathy and Yes supple Chest Chest palpation & inspection: normal inspection of the chest Breast/axilla inspection: normal inspection of the breasts Breast/axilla palpation: normal palpation of the breasts Resp Effort & Inspection: normal respiratory effort and able to speak in complete sentences Auscultation: clear to auscultation bilaterally Cardio Rate: regular rate Rhythm: regular rhythm Heart sounds: S1 normal heart sound present, S2 normal heart sound present and Murmur heart sound present diastolic (Faint murmur heard at left sternal border) GI Inspection: Yes Abdominal panniculus present and Yes obesity Palpation (GI): Soft to palpation, nontender and no guarding Auscultation: normal bowel sounds General: Yes no CVA tenderness Back/Spine/Pelvis Back: no CVA tenderness and No back tenderness Skin Other: Well-healed laparoscopic incision scar on abdomen Dry erythematous patch on lateral aspect of both feet and plantar aspect of both feet as well General skin exam: no rashes or lesions noted Neuro General: patient oriented x3, gait normal, tone normal, moves all extremities, Normal light touch and pain sensation and no focal motor deficits Cognition (Neuro): normal cognition Gait exam (Neuro): Normal gait present Motor exam (neuro): 5/5 motor strength present throughout Extrem General: Yes full ROM, Yes no joint enlargement, Yes no pedal edema, Yes no calf tenderness and Yes normal gait Psych Appearance: grossly normal and well kempt Mental Status: mental status grossly normal Speech and movement: Normal speech and movement present Affect: normal affect Attitude: cooperative Thought process: Normal thought process present Thought content: Normal thought content present Results AMB Hemoglobin A1c AMB Hemoglobin A1c 11.7 % Last Edit by Alexandra Hernandez CMA on 01/06/23 09:01 Results Reviewed Results Reviewed: Laboratory Last Values Hgb A1c (Clinic) 11.7 % (4.0-6.0) H 01/06/23 08:59 Assessment and Plan Assessment & Plan (1) Annual visit for general adult medical examination with abnormal findings: Code(s): Z00.01 - Encounter for general adult medical examination with abnormal findings Plan: Will check appropriate labs. Recommended dental visit every 6 months and yearly eye exam, goes to [facility] Take adequate calcium in diet and vitamin-D 3 at 2000 IU per cap once a day, in addition to weight-bearing exercises to help maintain good muscle tone and weight control. Instructed to do self-breast exam, and recommended to get yearly mammogram, but patient refusing procedure. Ordered bone density scan. Patient refusing colonoscopy or doing Cologuard screening . Reminded to get her COVID booster vaccine, flu shot. Up-to-date with her Prevnar 20 vaccine already (2) Type 2 diabetes mellitus with hyperglycemia, with long-term current use of insulin: Code(s): E11.65 - Type 2 diabetes mellitus with hyperglycemia; Z79.4 - [facility] (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 of insulin Plan: Diabetes mellitus is poorly controlled with a hemoglobin A1c at 11.7%. 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 Of units 3 times a day. Will increase her Trulicity dose to as Q weekly. Patient advised to check with her provider or apply for patient assistance program to get her insulin and other medications. Reminded to get her diabetes eye screen done. Advised to schedule another follow-up appointment with Dr. Cortez (3) Mixed dyslipidemia: Code(s): E78.2 - Mixed hyperlipidemia (4) Mild intermittent asthma: Code(s): J45.20 - Mild intermittent asthma, uncomplicated Plan: Currently using albuterol inhaler for episodes of bronchospasm and wheezing. (5) CKD (chronic kidney disease) stage 3, GFR 30-59 ml/min: Code(s): N18.30 - Chronic kidney disease, stage 3 unspecified Plan: Stressed importance of getting diabetes mellitus, blood pressure and cholesterol levels under good control. 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 (10) HFrEF (heart failure with reduced ejection fraction): Code(s): I50.20 - Unspecified systolic (congestive) heart failure Plan: Currently followed by Cardiology, currently on bumetanide and carvedilol (11) History of uterine cancer: Code(s): Z85.42 - Personal history of malignant neoplasm of other parts of uterus Plan: Followed by oncology Orders: Orders Lipid Panel 01/06/23 E11.40 - Type 2 diabetes mellitus with diabetic neuropathy, unspecified, E78.2 - Mixed hyperlipidemia, I50.20 - Unspecified systolic (congestive) heart failure, N18.30 - Chronic kidney disease, stage 3 unspecified Microalbumin, Random (w Creat) 01/06/23 E11.40 - Type 2 diabetes mellitus with diabetic neuropathy, unspecified, E78.2 - Mixed hyperlipidemia, I50.20 - Unspecified systolic (congestive) heart failure, N18.30 - Chronic kidney disease, stage 3 unspecified XR DEXA axial skeleton 01/06/23 E11.40 - Type 2 diabetes mellitus with diabetic neuropathy, unspecified, E78.2 - Mixed hyperlipidemia, I50.20 - Unspecified systolic (congestive) heart failure, N18.30 - Chronic kidney disease, stage 3 unspecified AMB Hemoglobin A1c 01/06/23 E11.65 - Type 2 diabetes mellitus with hyperglycemia, Z79.4 - 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 Vitamin D 25-OH Total 01/06/23 E11.40 - Type 2 diabetes mellitus with diabetic neuropathy, unspecified, E78.2 - Mixed hyperlipidemia, I50.20 - Unspecified systolic (congestive) heart failure, N18.30 - Chronic kidney disease, stage 3 unspecified Medications: Changed From insulin lispro 5 units (0.05 mL) subcut TID 3 mL 4RF To insulin lispro 12 units subcut TID From dulaglutide (Trulicity) 1.5 mg (0.5 mL) subcut QWEEK 2 mL 4RF To dulaglutide (Trulicity) 3 mg subcut QWEEK 2 mL 1RF Review Patient declined Mammogram: 01/06/23 Patient declined Colonoscopy: 01/06/23 Coding Level of Care Code Est Pt Level 4 (97109) Diagnoses Annual visit for general adult medical examination with abnormal findings Z00.01 Type 2 diabetes mellitus with hyperglycemia, with long-term current use of insulin E11.65; Z79.4 Mixed dyslipidemia E78.2 Mild intermittent asthma J45.20 CKD (chronic kidney disease) stage 3, GFR 30-59 ml/min N18.30 Current use of anticoagulant therapy Z79.01 Persistent atrial fibrillation I48.19 Tinea pedis B35.3 Coronary arteriosclerosis I25.10 HFrEF (heart failure with reduced ejection fraction) I50.20 History of uterine cancer Z85.42
[2023-01-06 08:35] VITALS: BP 160/98; PULSE 78; O2SAT 100; BMI 39.8
== END 2023-01-06 10:58 | disposition home or self-care (01) ==
PROVIDERS: Visit Provider Internal Medicine
DX: E11.65 Type 2 diabetes mellitus with hyperglycemia (principal); Z79.4 Long term (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 of insulin
CPT/HCPCS: 83036; 99397

== ENCOUNTER 2023-01-17 14:23 | Outpatient (AMB) | payer MEDICARE, SELFPAY ==
--- NOTE | 2023-01-17 14:29 | MHC.OFFVISCO ---
Intake Intake Visit Reasons: Anticoagulation Allergies red dye [Red Dye] Allergy (Severe, Verified 01/17/23 14:24) HIVES,THROAT CLOSES FROM RED FOOD DYE Medication List - Last Reconciled 01/17/23 by Agnes Weaver RN albuterol sulfate 90 mcg/actuation 0 mcg inhalation amiodarone 200 mg PO DAILY atorvastatin 40 mg PO DAILY blood sugar diagnostic (FreeStyle Lite Strips) As directed check sugar twice a day before meals blood-glucose meter (FreeStyle Lite Meter kit) As directed bumetanide Take 2 mg b.i.d. alternating with 3 mg b.i.d. on alternate days orally; carvedilol 6.25 mg PO BID 90 days clotrimazole 1% (Athlete's Foot (clotrimazole)) 1 appl topical BID 4 weeks dulaglutide (Trulicity) 3 mg (0.5 mL) subcut QWEEK insulin degludec (Tresiba FlexTouch U-100 insulin) 42 units subcut BEDTIME insulin lispro 12 units subcut TID insulin syringe-needle U-100 (BD Veo Insulin Syringe Ultra-Fine) As directed twice a day lancets (FreeStyle Lancets) As directed nystatin (Nystop) 1 appl topical BID-TID pen needle, diabetic (BD Ultra-Fine Short Pen Needle) USE 4 times a day [PROBIOTIC GUMMY PO] [scale-accommodate weight 300 lbs As directed] spironolactone 25 mg PO DAILY warfarin 5 mg See Protocol PO DAILY Nursing Note INR: 2.5- in therapeutic range of 2-3 Medications and supplements reviewed No changes in health, diet, medications, or supplements, Denies any signs and symptoms of bleeding or bruising or clotting. Bleeding, bruising, clotting discussed Nutritional guidance given Dose: 5mg x 6, 2.5mg x 1 F/U INR: 2 weeks Patient verbalizes understanding of instructions given pt pleasant, amb with cane Anti-Coag Initial Assessment Social Hx Patient Tobacco Use Status: Never used Tobacco alcohol intake: never Alcohol intake frequency: does not drink Cardiovascular Hx: HTN, Angina, CAD, CHF, Arrhythmias, Varicose Veins and Other Lung Disease HX: Asthma Endocrine Hx: Diabetes Musculoskeletal Hx: Arthritis Blood Disorder Hx: Hyperlipidemia GI Hx: Ulcers, Bleeding (GI, rectal) and Other Hx: Kidney Disease Neurological Hx: Serious Head Injury and Migraines/Headaches 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 ) Psych. Illness/Depression: No Coding Level of Care Code Est Patient Level 1 Diagnoses Current use of anticoagulant therapy Z79.01 Assessment & Plan Assessment & Plan (1) Current use of anticoagulant therapy: Code(s): Z79.01 - half-way (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 of anticoagulants Category: Medical
[2023-01-17 14:30] LABS: Prothrombin Time Whole Bld POC 30.3 sec (11.1-13.5); ~PT, ~INR - Anti Coag Clinic 2.5 (0.9-1.1)
== END 2023-01-17 14:35 | disposition home or self-care (01) ==
LOC: HO.ACS 14:23
PROVIDERS: PCP Internal Medicine; Visit Provider Internal Medicine
DX: Z79.01 Long term (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 of anticoagulants (principal)

== ENCOUNTER → 2023-01-17 14:23 | Outpatient (BNVA) | payer MEDICARE, SELFPAY | PROVIDERS: PCP Internal Medicine; Visit Provider Internal Medicine | DX: I48.0 Paroxysmal atrial fibrillation (principal); Z79.01 Long term (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 of anticoagulants; Z51.81 Encounter for therapeutic drug level monitoring | CPT/HCPCS: 85610; 99211 ==

== ENCOUNTER 2023-01-27 13:01 | Outpatient (AMB) | payer MEDICARE, SELFPAY ==
[2023-01-27 13:25] VITALS: BP 126/72; PULSE 71; O2SAT 98; BMI 39.9
--- NOTE | 2023-01-27 13:25 | A.OFFVIS_ITS ---
Intake Vital Signs 01/27/23 13:25 Height 5 ft 5 in Weight 239 lb 13.807 oz BMI 39.9 BP 126/72 Blood Pressure Location Lt brachial Position Sitting Pulse 71 Pulse Source Pulse Oximeter Pulse Oximetry (%) 98 Oxygen Delivery Method Room Air Intake Visit Reasons: 3 mth f/up Intake Note: Pt presents to the office today for a 3 month follow up. Pt states she is feeling a little lightheaded today but denies feeling lightheaded everday. Pt denies any SOB,chest pains, or any other cardiac concerns at this time. Allergies red dye [Red Dye] Allergy (Severe, Verified 01/27/23 13:27) HIVES,THROAT CLOSES FROM RED FOOD DYE Medication List - Last Reconciled 01/27/23 by Cesar Storey MD albuterol sulfate 90 mcg/actuation 0 mcg inhalation amiodarone 200 mg PO DAILY atorvastatin 40 mg PO DAILY blood sugar diagnostic (FreeStyle Lite Strips) As directed check sugar twice a day before meals blood-glucose meter (FreeStyle Lite Meter kit) As directed bumetanide Take 2 mg b.i.d. alternating with 3 mg b.i.d. on alternate days orally; carvedilol 6.25 mg PO BID 90 days clotrimazole 1% (Athlete's Foot (clotrimazole)) 1 appl topical BID 4 weeks dulaglutide (Trulicity) 3 mg (0.5 mL) subcut QWEEK insulin degludec (Tresiba FlexTouch U-100 insulin) 42 units subcut BEDTIME insulin lispro 12 units subcut TID insulin syringe-needle U-100 (BD Veo Insulin Syringe Ultra-Fine) As directed twice a day lancets (FreeStyle Lancets) As directed losartan 25 mg PO DAILY nystatin (Nystop) 1 appl topical BID-TID pen needle, diabetic (BD Ultra-Fine Short Pen Needle) USE 4 times a day [PROBIOTIC GUMMY PO] [scale-accommodate weight 300 lbs As directed] spironolactone 25 mg PO DAILY warfarin 5 mg See Protocol PO DAILY HPI HPI Comments History of Present Illness Details 67-year-old female with tachycardia sai daniele cardiomyopathy with ejection fraction of 15% who is here for follow-up. She previously had atrial fibrillation for which she underwent cardioversion was started on amiodarone. She had successful cardioversion but unfortunately developed AFib again. She was brought back and cardioverted but later developed 2-1 atrial tachycardia/flutter. She was discharged home medication with a plan to let her be loaded with amiodarone and to re-attempt cardioversion. Unfortunately she developed significant heart failure volume overload and was readmitted to the hospital. She underwent diuresis in the hospital with medication adjustment and eventually underwent cardioversion and has been in sinus rhythm since then. Her blood pressure was low in the hospital and some of her medications were held including valsartan and carvedilol. It appears she was supposed to be on torsemide but when she was discharged home she was put back on her old drug Bumex 2 mg b.i.d.. She also continues to take carvedilol 6.25 mg twice a day along with amiodarone and spironolactone 25 mg once a day. She is here for follow-up. She is denying any significant shortness of breath. She has some fatigue and peripheral edema. She is saying she sleeps on couple of pillows and has not tried to lay flat in bed. She has not been monitoring her weight at home because she does not have a scale at home but at different office visits she felt that her fate was stable. Since May she has gained approximately 7 lb. Repeat echocardiography has shown EF of 30 35%. She is still has LV dilation but ejection fraction is improving. 2022: She returns for follow-up. Bradford francisco is saying she has been doing fine. No chest discomfort or significant shortness of breath. Blood pressure control is good. She is saying off and on she notices swelling in her legs. She is taking 2 mg Bumex twice a day alternating with 3 mg of Bumex twice a day. She has not been laying down flat in bed because she gets significant orthopnea. She also has daytime somnolence and snoring. She did not have sleep study in the past. Continues to be in sinus rhythm but has left bundle-branch block with QRS duration of 154 milliseconds. [facility] Medical History History of uterine cancer Personal history of malignant neoplasm of other parts of uterus Persistent atrial fibrillation Tinea pedis History of cardioversion Cardiomyopathy Coronary arteriosclerosis Ischemic cardiomyopathy Colonoscopy refused Incomplete left bundle branch block (LBBB) Endometrial adenocarcinoma Post-menopausal bleeding Type 2 diabetes mellitus with hyperglycemia, with long-term current use of insulin Obesity due to excess calories Diabetes type 2, uncontrolled Vitamin D deficiency Mixed dyslipidemia Papanicolaou smear declined Mammogram declined Osteoarthritis, knee Diabetic neuropathy History of esophagitis Mild intermittent asthma Uterine fibroid History of basal cell carcinoma Osteonecrosis of right hip Hiatal hernia History of cholelithiasis Morbid obesity Essential hypertension Type 2 diabetes mellitus with hyperglycemia, without long-term current use of insulin Irritable bowel syndrome (IBS) Surgical History S/P CLARE-BSO (total abdominal hysterectomy and bilateral salpingo-oophorectomy) S/P cardiac catheterization History of hysterectomy H/O hernia repair Hx of section History of hip surgery Hx of colonoscopy History of cholecystectomy Family History Father Myocardial infarction Cardiovascular disease Mother Diabetes mellitus Essential hypertension Daughter Anxiety disorder Mental health disorder Son Mental health disorder Social History Household Members: Spouse and Children Housing: House Are you a primary chiropractic care to a significant other at home: No Do you presently have visiting nurse or other home services: No Alcohol intake: never Patient Tobacco Use Status: Never used Tobacco e-Cigarette/Vaping Use: Never Used Second Hand Smoke Exposure: No Advance Directives Date on File: 04/08/22 service: No Current occupational status: retired Current occupational exposures/hazards: No Cognitive needs: No Hearing needs: No Vision needs: Yes Physical Exam Vital Signs: Last Vital Signs Pulse 71 01/27/23 13:25 BP 126/72 01/27/23 13:25 Pulse Ox 98 01/27/23 13:25 Oxygen Delivery Method Room Air 01/27/23 13:25 BMI result Body Mass Index 39.9 GENERAL APPEARANCE: In no acute distress. NECK: no carotid bruit, no JVD. SKIN: no suspicious lesions, warm and dry. HEART: no murmurs, regular rate and rhythm. LUNGS: Clear to auscultation. ABDOMEN: soft, nontender. EXTREMITIES: 1+ edema. PERIPHERAL PULSES: equal. NEUROLOGIC: No gross deficits, AAO X 3 Office Procedures EKG Details: Sinus rhythm 67 beats per minute, left axis deviation, left bundle-branch block with QRS duration of 154 milliseconds, QTC 490 milliseconds. [id number], Complete Assessment & Plan Assessment & Plan (1) Sleep disorder breathing: Code(s): G47.30 - Sleep apnea, unspecified (2) Essential hypertension: Code(s): I10 - Essential (primary) hypertension (3) HFrEF (heart failure with reduced ejection fraction): Code(s): I50.20 - Unspecified systolic (congestive) heart failure (4) Left bundle branch block: Code(s): I44.7 - Left bundle-branch block, unspecified Plan Pleasant 67 year female who is here for follow-up. She has history of mixed ischemic and nonischemic (mostly nonischemic) cardiomyopathy. She has left bundle-branch block. EF is 30 35% based on previous echocardiography. Clinically she appears to be stable. She is complaining of symptoms consistent with sleep apnea. We will arrange a sleep study for her. Referring her for cardiac rehabilitation given cardiomyopathy with EF of 30 35%. She will continue medications and we will repeat echocardiography to see if ejection fraction is improving. If EF does not improve then will refer her to electrophysiology for cardiac resynchronization therapy. Thank you for allowing me to participate in the care of your patient. Please feel free to contact me if you have any questions. Orders: Orders CA echo limited Today I50.20 - Unspecified systolic (congestive) heart failure RT PSG in-lab sleep study Today G47.30 - Sleep apnea, unspecified Cardiac Rehab Today I50.20 - Unspecified systolic (congestive) heart failure, Z98.61 - Coronary angioplasty status Coding Level of Care Code Est Pt Level 4 (80916) Diagnoses Sleep disorder breathing G47.30 Essential hypertension I10 HFrEF (heart failure with reduced ejection fraction) I50.20 Left bundle branch block I44.7 CPT Codes EKG - CPT: [id number], Complete ([id number])
== END 2023-01-27 13:55 | disposition home or self-care (01) ==
PROVIDERS: PCP Internal Medicine; Visit Provider Internal Medicine Cardiovascular Disease
DX: G47.30 Sleep apnea, unspecified (principal); I10 Essential (primary) hypertension; I50.20 Unspecified systolic (congestive) heart failure; I44.7 Left bundle-branch block, unspecified
CPT/HCPCS: 93010; 99214

== ENCOUNTER → 2023-01-27 13:01 | Outpatient (BNVA) | payer MEDICARE, SELFPAY | PROVIDERS: PCP Internal Medicine; Visit Provider Internal Medicine Cardiovascular Disease | DX: G47.30 Sleep apnea, unspecified (principal); I11.0 Hypertensive heart disease with heart failure; I50.20 Unspecified systolic (congestive) heart failure; I44.7 Left bundle-branch block, unspecified | CPT/HCPCS: 93005; 99212 ==

== ENCOUNTER 2023-01-31 13:54 | Outpatient (AMB) | payer MEDICARE, SELFPAY ==
[2023-01-31 14:14] LABS: Prothrombin Time Whole Bld POC 33.9 sec (11.1-13.5); ~PT, ~INR - Anti Coag Clinic 2.8 (0.9-1.1)
--- NOTE | 2023-01-31 14:16 | MHC.OFFVISCO ---
Intake Intake Visit Reasons: Anticoagulation Allergies red dye [Red Dye] Allergy (Severe, Verified 01/31/23 14:08) HIVES,THROAT CLOSES FROM RED FOOD DYE Medication List - Last Reconciled 01/31/23 by Jeanna Mcallister RN albuterol sulfate 90 mcg/actuation 0 mcg inhalation amiodarone 200 mg PO DAILY atorvastatin 40 mg PO DAILY blood sugar diagnostic (FreeStyle Lite Strips) As directed check sugar twice a day before meals blood-glucose meter (FreeStyle Lite Meter kit) As directed bumetanide Take 2 mg b.i.d. alternating with 3 mg b.i.d. on alternate days orally; carvedilol 6.25 mg PO BID 90 days clotrimazole 1% (Athlete's Foot (clotrimazole)) 1 appl topical BID 4 weeks dulaglutide (Trulicity) 3 mg (0.5 mL) subcut QWEEK insulin degludec (Tresiba FlexTouch U-100 insulin) 42 units subcut BEDTIME insulin lispro 12 units subcut TID insulin syringe-needle U-100 (BD Veo Insulin Syringe Ultra-Fine) As directed twice a day lancets (FreeStyle Lancets) As directed losartan 25 mg PO DAILY nystatin (Nystop) 1 appl topical BID-TID pen needle, diabetic (BD Ultra-Fine Short Pen Needle) USE 4 times a day [PROBIOTIC GUMMY PO] [scale-accommodate weight 300 lbs As directed] spironolactone 25 mg PO DAILY warfarin 5 mg See Protocol PO DAILY Nursing Note Amb to [facility] using cane, feeling better now, planning on starting cardiac rehab soon Medications and supplements reviewed No changes in health, diet, medications, or supplements Denies any unusual signs and symptoms of bruising, bleeding Denies any new Chest pain, SOB, or clotting INR: 2.8 in therapeutic range Nutritional guidance given: balance greens and reds in diet, be consistent, be aware of the reds over Thanksgiving Dose: continue usual dosing; 2.5mg x 1 day and 5mg x 6 days F/U INR: 2 weeks, if in range can increase interval Patient verbalizes understanding of instructions given with accurate read back/ teach back of dosing Anti-Coag Initial Assessment Social Hx Patient Tobacco Use Status: Never used Tobacco alcohol intake: never Alcohol intake frequency: does not drink Cardiovascular Hx: HTN, Angina, CAD, CHF, Arrhythmias, Varicose Veins and Other Lung Disease HX: Asthma Endocrine Hx: Diabetes Musculoskeletal Hx: Arthritis Blood Disorder Hx: Hyperlipidemia GI Hx: Ulcers, Bleeding (GI, rectal) and Other Hx: Kidney Disease Neurological Hx: Serious Head Injury and Migraines/Headaches 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 ) Psych. Illness/Depression: No Coding Level of Care Code Est Patient Level 1 Diagnoses Current use of anticoagulant therapy Z79.01 Time Spent (min) 15 Assessment & Plan Assessment & Plan (1) Current use of anticoagulant therapy: Code(s): Z79.01 - [facility] (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 of anticoagulants Category: Medical
== END 2023-01-31 14:21 | disposition home or self-care (01) ==
LOC: HO.ACS 13:54
PROVIDERS: PCP Internal Medicine; Visit Provider Internal Medicine
DX: Z79.01 Long term (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 of anticoagulants (principal)

== ENCOUNTER → 2023-01-31 13:54 | Outpatient (BNVA) | payer MEDICARE, SELFPAY | PROVIDERS: PCP Internal Medicine; Visit Provider Internal Medicine | DX: I48.0 Paroxysmal atrial fibrillation (principal); Z79.01 Long term (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 of anticoagulants; Z51.81 Encounter for therapeutic drug level monitoring | CPT/HCPCS: 85610; 99211 ==

== ENCOUNTER 2023-02-14 13:48 | Outpatient (AMB) | payer MEDICARE, SELFPAY ==
--- NOTE | 2023-02-14 14:26 | MHC.OFFVISCO ---
Intake Intake Visit Reasons: Anticoagulation Allergies red dye [Red Dye] Allergy (Severe, Verified 01/31/23 14:08) HIVES,THROAT CLOSES FROM RED FOOD DYE Nursing Note PT.ARRIVED AMBULATORY WITH HER SON, STATING THAT SHE HAS HAD MID STERNAL CHEST PAIN AND SOB WITHOUT EXERTION FOR APPROX.1 WEEK. PAIN TODAY RADIATES TO SHOULDERS WITH FACIAL ACHINESS AND SOME NAUSEA AND OCCAS.DIZZINESS. PT.IS TRANSPORTED VIA W/C TO ED [facility] FOR EVAL. SON IN ATTENDANCE REPORT TO [facility] NURSE Anti-Coag Initial Assessment Social Hx Patient Tobacco Use Status: Never used Tobacco alcohol intake: never Alcohol intake frequency: does not drink Cardiovascular Hx: HTN, Angina, CAD, CHF, Arrhythmias, Varicose Veins and Other Lung Disease HX: Asthma Endocrine Hx: Diabetes Musculoskeletal Hx: Arthritis Blood Disorder Hx: Hyperlipidemia GI Hx: Ulcers, Bleeding (GI, rectal) and Other Hx: Kidney Disease Neurological Hx: Serious Head Injury and Migraines/Headaches 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 ) Psych. Illness/Depression: No Coding Level of Care Code Est Patient Level 1 Diagnoses Current use of anticoagulant therapy Z79.01 Assessment & Plan Assessment & Plan (1) Current use of anticoagulant therapy: Code(s): Z79.01 - longterm (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 of anticoagulants Category: Medical
== END 2023-02-14 14:32 | disposition home or self-care (01) ==
LOC: HO.ACS 13:48
PROVIDERS: PCP Internal Medicine; Visit Provider Internal Medicine
DX: Z79.01 Long term (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 of anticoagulants (principal)

== ENCOUNTER → 2023-02-14 13:48 | Outpatient (BNVA) | payer MEDICARE, SELFPAY | PROVIDERS: PCP Internal Medicine; Visit Provider Internal Medicine ==

== ENCOUNTER 2023-02-14 14:00 | Emergency (ER) | payer MEDICARE, SELFPAY ==
--- NOTE | ~2023-02-14 | XR_ITS ---
EXAMINATION: XR CHEST CLINICAL INFORMATION: Chest pain. COMPARISON: 12/08/2022. TECHNIQUE: 2 views of the chest were obtained. FINDINGS: The cardiomediastinal silhouette is stable. There is no focal lung consolidation or pleural effusion. The bony structures and soft tissues are unremarkable. XR/XR chest 2V IMPRESSION: No active cardiopulmonary disease.
--- NOTE | ~2023-02-14 | CT_ITS ---
EXAMINATION: CT CHEST WITHOUT CONTRAST CLINICAL INFORMATION: Dyspnea COMPARISON: Previous chest x-ray from earlier the same day TECHNIQUE: Multidetector volumetric CT imaging of the chest was done. Axial MIP volume rendering provided. Sagittal and coronal reformatted images were obtained. This CT examination was performed using dose optimization techniques as appropriate, variously including the following: *Automated exposure control *Adjustment of mA and/or kV according to patient size (this includes techniques or standardized protocols for targeted exams where dose is matched to indication/reason for exam; i.e. extremities or head) *Use of iterative reconstruction technique DLP: 5 1 4 mGy-cm FINDINGS: LICENSED OCCUPATIONAL THERAPY ASSISTANT: LUNGS: Heterogeneous mosaic attenuation in the lungs probably representing hypoventilatory changes related to air trapping. Question atelectasis versus increased interstitial markings in the peripheral or subpleural right lower lobe. No evidence of emphysema. No endobronchial or endotracheal lesion. MEDIASTINUM: Normal thyroid gland. Small mediastinal lymph nodes. No enlarged lymph nodes. Normal heart size. No pericardial effusion. CORONARY ARTERY CALCIFICATION: Mild PLEURA: There is no pleural effusion. No pleural mass or thickening. AXILLA: No lymphadenopathy. UPPER ABDOMEN: Small calcification in the pancreas. OSSEOUS STRUCTURES: Degenerative changes of the spine and shoulders. CT/CT chest wo IV con IMPRESSION: Heterogeneous mosaic attenuation in the lungs probably representing hypoventilatory changes. Question atelectasis versus mild interstitial disease at the right lung base. Fleischner guidelines were followed.
[2023-02-14 14:02] VITALS: BP 138/87; PULSE 94; RESP 16; TEMP 36; O2SAT 97; BMI 38.3
--- NOTE | 2023-02-14 14:03 | ED_ITS ---
HPI - Chest Pain General Chief Complaint: Chest Pain Stated Complaint: chest pain/ SOB Time Seen by Provider: 02/14/23 20:07 Source: patient Mode of arrival: ambulatory Limitations: no limitations History of Present Illness HPI narrative: 67 yo female with PMH of PAF on coumadin, CAD, CKD, prolonged qtc, CHF EF 35%, LBBB, uterine cancer, DM, HLD, OA, asthma, hiatal hernia, HTN, here with c/o chest pain for 1 week on and off not made worse with exertion. She feels more swollen and volume overloaded though she does not do daily weights. She feels dyspneic on exertion. She has lingering chest tightness. She had worsening chest pain 2 nights ago but did not get checked out. She is compliant with all medications and diuretics. Per EMR patient is actually down 4kg from recent cardiology visit this 01/27 MD complaint: chest heaviness Pertinent past history: coronary artery disease and other Onset (ago): week(s) (1) Timing of current episode: episodic Prior episodes: Yes Onset: during rest Pain location: left chest Pain radiation: none Severity: mild Quality: tightness Relieving factors: nothing Exacerbating factors: nothing Context: other (hx of similar episodes) Associated symptoms: dyspnea and leg swelling Treatment prior to arrival: none Related Data Home Medications Medication Instructions Recorded Confirmed blood-glucose meter (FreeStyle 10/25/21 01/31/23 Lite Meter kit) lancets 28 gauge (FreeStyle 10/25/21 01/31/23 Lancets) insulin degludec 100 unit/mL (3 42 unit subcut BEDTIME 03/12/22 01/31/23 mL) subcutaneous pen (Tresiba FlexTouch U-100 insulin) pen needle, diabetic 31 gauge x 06/04/22 01/31/23 5/16 (BD Ultra-Fine Short Pen Needle) albuterol sulfate 90 mcg/actuation 0 mcg inhalation 08/19/22 01/31/23 aerosol inhaler nystatin 100,000 unit/gram topical 1 appl topical BID-TID 11/25/22 01/31/23 powder (Nystop) PROBIOTIC GUMMY PO 12/24/22 01/31/23 insulin lispro 100 unit/mL 12 unit subcut TID 01/06/23 01/31/23 subcutaneous pen losartan 25 mg tablet 25 mg PO DAILY 01/27/23 01/31/23 Previous Rx's Medication Instructions Recorded blood sugar diagnostic (FreeStyle #100 ea 10/11/20 Lite Strips) insulin syringe-needle U-100 03/18 #200 ea 11/13/21 mL 31 gauge x 15/64 (BD Veo Insulin Syringe Ultra-Fine) scale-accommodate weight 300 lbs #1 ea 05/16/22 carvedilol 6.25 mg tablet 6.25 mg PO BID 90 days #180 tabs 06/06/22 clotrimazole 1 % topical cream 1 appl topical BID 4 weeks #45 08/20/22 (Athlete's Foot (clotrimazole)) grams bumetanide 2 mg tablet See Rx Instructions PO .COMPLEX 09/04/22 #90 tabs amiodarone 200 mg tablet 200 mg PO DAILY #30 tabs 10/24/22 atorvastatin 40 mg tablet 40 mg PO DAILY #90 tabs 11/04/22 spironolactone 25 mg tablet 25 mg PO DAILY #60 tabs 02/03/23 dulaglutide 3 mg/0.5 mL 3 mg (0.5 mL) subcut QWEEK #2 mL 02/05/23 subcutaneous pen injector (Trulicity) warfarin 2.5 mg tablet 5 mg PO DAILY #60 tabs 02/07/23 Allergies Allergy/AdvReac Type Severity Reaction Status Date / Time red dye [Red Dye] Allergy Severe HIVES,THROAT Verified 01/31/23 14:08 CLOSES FROM RED FOOD DYE Review of Systems 2 Review of Systems: Constitutional : No Fever, No Chills ENT/Mouth : No sore throat, No Rhinorrhea, No Swallowing Difficulty Eyes: No Eye Pain, No Swelling, No Redness Cardiovascular : pos Chest Pain, positive SOB, pos Orthopnea, positive Edema Respiratory : No Cough, No Sputum, No Wheezing, positive dyspnea Gastrointestinal : No Nausea, No Vomiting, No Diarrhea, No abdominal Pain, No Hematochezia, No Melena Genitourinary : No Dysuria, No Urinary Frequency, No Hematuria Musculoskeletal : No joint pain, No Myalgias Skin : No Skin Lesions, No rash Neuro : No Weakness, No Numbness, No Dizziness, No Headache Psych : No Anxiety/Panic, No Depression Heme/Lymph: No Bruising, No Lymphadenopathy Endocrine : No Polyuria, No Polydipsia All other systems reviewed and are negative [facility] Past Medical History Source: old records reviewed Medical History History of uterine cancer Personal history of malignant neoplasm of other parts of uterus Persistent atrial fibrillation Tinea pedis History of cardioversion Cardiomyopathy Coronary arteriosclerosis Ischemic cardiomyopathy Colonoscopy refused Incomplete left bundle branch block (LBBB) Endometrial adenocarcinoma Post-menopausal bleeding Type 2 diabetes mellitus with hyperglycemia, with long-term current use of insulin Obesity due to excess calories Diabetes type 2, uncontrolled Vitamin D deficiency Mixed dyslipidemia Papanicolaou smear declined Mammogram declined Osteoarthritis, knee Diabetic neuropathy History of esophagitis Mild intermittent asthma Uterine fibroid History of basal cell carcinoma Osteonecrosis of right hip Hiatal hernia History of cholelithiasis Morbid obesity Essential hypertension Type 2 diabetes mellitus with hyperglycemia, without long-term current use of insulin Irritable bowel syndrome (IBS) Surgical History S/P CLARE-BSO (total abdominal hysterectomy and bilateral salpingo-oophorectomy) S/P cardiac catheterization History of hysterectomy H/O hernia repair Hx of section History of hip surgery Hx of colonoscopy History of cholecystectomy Family History Family History Father Myocardial infarction Cardiovascular disease Mother Diabetes mellitus Essential hypertension Daughter Anxiety disorder Mental health disorder Son Mental health disorder Social History Social History Household Members: Spouse and Children Housing: House Are you a primary hearing care practitioner to a significant other at home: No Do you presently have visiting nurse or other home services: No Alcohol intake: never Comment: pt refused bed/chair alarms Patient Tobacco Use Status: Never used Tobacco Smoked in Last 30 Days: No e-Cigarette/Vaping Use: Never Used Second Hand Smoke Exposure: No Use of substances other than those prescribed or required for medical reasons: No Advance Directives: Yes Advance Directives on File: Yes Advance Directives Date on File: 04/08/22 service: No Current occupational status: retired Current occupational exposures/hazards: No Cognitive needs: No Hearing needs: No Vision needs: Yes Physical Exam 2 Vital Signs: Vital Signs: Last Vital Signs Temp 96.8 F 02/14/23 14:02 Pulse 94 02/14/23 20:08 Resp 18 02/14/23 20:08 BP 106/63 02/14/23 20:08 Pulse Ox 96 02/14/23 20:08 O2 Del Method Room Air 02/14/23 20:08 BMI result Body Mass Index 38.3 Appearance: Alert. Oriented X3. No acute distress. Eyes: Pupils equal, round and reactive to light. ENT: Pharynx normal. Neck: Normal inspection. Neck supple. CVS: Normal heart rate and rhythm. Pulses normal. Respiratory: No respiratory distress. Breath sounds rales in bases Abdomen: Soft and nontender. Skin: Skin warm and dry. Normal skin color. Normal skin turgor. Extremities: 1+ pitting lower extremity edema to knees. No calf ttp Neuro: Oriented X 3. No motor deficit. No sensory deficit. Course Course Course Narrative: This is an RME: Additional HPI, ROS, PE not included below will be deferred to primary provider. Patient is a 67-year-old female who presents emergency department for evaluation of mid/ L CP x 1 week and non productive cough. onset 1 week ago, constant, varying intensity. Denies reproduce ability to cough or deep breathing. Notably worse all lined up her left sign. Shortness of breath on exertion. Reports history of CHF and atrial fibrillation. She is on warfarin, reports recent therapeutic INR. Presents to ED today coming from Coumadin clinic Plan: labs, EKG Medications Administered Discontinued Medications Generic Name Dose Route Start Last Admin Trade Name Freq PRN Reason Stop Dose Admin Bumetanide 1 mg 02/14/23 20:36 02/14/23 21:08 Bumetanide 1 Mg/4 Ml Vial IVPUSH 02/14/23 20:37 1 mg ONCE ONE Administration Protocol Medical Decision Making Medical Decision Making MDM Narrative: 67 yo female with PMH of PAF on coumadin, CAD, CKD, prolonged qtc, CHF, LBBB, uterine cancer, DM, HLD, OA, asthma, hiatal hernia, HTN here with c/o edema, volume overload, chest pain - atypical chest pain and CHF likely. Doubt VTE given INR 3.0 Patient will need basic labs, troponin x 2, IV bumex, CT chest to rule out pneumonia/effusions. EKG unchanged from priors. Possible CHF exacerbation Differential Diagnosis Differential Diagnoses: The differential diagnosis associated with the presentation includes CHF, atypical chest pain Admission/Observation Consideration of admission/observation: Escalation of care including admission/observation considered trop flat x 2, unchanged EKG, BNP no rise actually decreasing, no O2 requirements, no events on tele. 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 02/14/23 14:27 02/14/23 14:27 Labs: Lab Results 02/14/23 02/14/23 02/14/23 Range/Units 14:24 14:26 14:27 WBC 7.1 (4.8-10.8) X10*3/uL RBC 4.41 (4.20-5.50) X10*6/uL Hgb 13.2 (12.0-16.0) g/dl Hct 41.1 (37.0-47.0) % MCV 93.2 (80.0-98.0) fL MCH 29.9 (27.0-33.0) pg MCHC 32.1 (31.0-35.0) g/dl RDW 13.3 (11.0-16.0) % Plt Count 225 (160-400) X10*3/uL MPV 10.1 (9.4-12.3) fL Immature Gran % (Auto) 0.3 (0.0-0.4) % Neut % (Auto) 64.4 (45-73) % Lymph % (Auto) 26.5 (20-40) % [place] % (Auto) 5.8 (2-11) % Eos % (Auto) 2.0 (0-4) % Baso % (Auto) 1.0 (0-2) % Lymph # (Auto) 1.9 (1.2-4.9) X10*3/uL [place] # (Auto) 0.4 (0.1-1.2) X10*3/uL Eos # (Auto) 0.1 (0.0-0.4) X10*3/uL Baso # (Auto) 0.1 (0.0-0.2) X10*3/uL Abs Immat Gran (auto) 0.02 (0.00-0.03) X10*3/uL Absolute Neuts (auto) 4.6 (2.0-8.3) x10*3/uL Absolute Nucleated RBC 0.000 (0.0-0.012) X10*3/uL Nucleated RBC % (auto) 0.0 (0.0-0.2) /100WBC PT 37.1 H D (11.1-13.3) SEC INR 3.0 H (0.9-1.1) Sodium 135 (135-145) mmol/L Potassium 3.7 (3.3-5.1) mmol/L Chloride 98 (96-108) mmol/L Carbon Dioxide 26 (22-29) mmol/L Anion Gap 15 (12-20) BUN 35 H (9-16) mg/dL Creatinine 1.65 H (0.5-1.4) mg/dL Estim Creat Clear Calc 40.1 Estimated GFR 31 Random Glucose 309 H (60-115) mg/dL Calcium 9.0 (8.4-10.2) mg/dL Magnesium 1.9 (1.6-2.6) mg/dL Total Bilirubin 0.9 (0.0-1.0) mg/dL AST 13 (5-31) U/L ALT 12 (0-31) U/L Alkaline Phosphatase 100 (39-117) U/L Troponin I High Sens 11.5 D (<3.5-17.0) ng/L B-Natriuretic Peptide 292 H (<100) pg/mL Total Protein 7.3 (6.5-8.0) g/dL Albumin 3.7 (3.5-5.0) g/dL Lipase 26 (8-78) U/L COVID-19 (RAEANN) Negative (Negative) COVID-19 Clin Com See Note Influenza Type A (STEFANIE) Negative (Negative) Influenza Type B (STEFANIE) Negative (Negative) Influenza A & B Note See Note 02/14/23 Range/Units 21:08 WBC (4.8-10.8) X10*3/uL RBC (4.20-5.50) X10*6/uL Hgb (12.0-16.0) g/dl Hct (37.0-47.0) % MCV (80.0-98.0) fL MCH (27.0-33.0) pg MCHC (31.0-35.0) g/dl RDW (11.0-16.0) % Plt Count (160-400) X10*3/uL MPV (9.4-12.3) fL Immature Gran % (Auto) (0.0-0.4) % Neut % (Auto) (45-73) % Lymph % (Auto) (20-40) % [place] % (Auto) (2-11) % Eos % (Auto) (0-4) % Baso % (Auto) (0-2) % Lymph # (Auto) (1.2-4.9) X10*3/uL [place] # (Auto) (0.1-1.2) X10*3/uL Eos # (Auto) (0.0-0.4) X10*3/uL Baso # (Auto) (0.0-0.2) X10*3/uL Abs Immat Gran (auto) (0.00-0.03) X10*3/uL Absolute Neuts (auto) (2.0-8.3) x10*3/uL Absolute Nucleated RBC (0.0-0.012) X10*3/uL Nucleated RBC % (auto) (0.0-0.2) /100WBC PT (11.1-13.3) SEC INR (0.9-1.1) Sodium (135-145) mmol/L Potassium (3.3-5.1) mmol/L Chloride (96-108) mmol/L Carbon Dioxide (22-29) mmol/L Anion Gap (12-20) BUN (9-16) mg/dL Creatinine (0.5-1.4) mg/dL Estim Creat Clear Calc Estimated GFR Random Glucose (60-115) mg/dL Calcium (8.4-10.2) mg/dL Magnesium (1.6-2.6) mg/dL Total Bilirubin (0.0-1.0) mg/dL AST (5-31) U/L ALT (0-31) U/L Alkaline Phosphatase (39-117) U/L Troponin I High Sens 14.9 (<3.5-17.0) ng/L B-Natriuretic Peptide 254 H (<100) pg/mL Total Protein (6.5-8.0) g/dL Albumin (3.5-5.0) g/dL Lipase (8-78) U/L COVID-19 (RAEANN) (Negative) COVID-19 Clin Com Influenza Type A (STEFANIE) (Negative) Influenza Type B (STEFANIE) (Negative) Influenza A & B Note Independent Interpretation I performed an independent interpretation of an: EKG, Plain X-Ray and CT Scan (no pleural effusion, no pneumonia) Interpretation: Rate: 97 Rhythm: NSR [place]: left Normal P waves. Normal AKILA. LBBB ST T wave : inverted t waves I and aVL, no AGATA qTC: 508 prior studies: no sig change from priors The study has been interpreted contemporaneously by me. . Radiology Impression Discussion of test interpretation with radiology: I have reviewed the radiologist's reading. Independent Historian Clinical information obtained from an independent historian. History obtained from or confirmed by: Spouse External Record Review External record reviewed: Office record Discharge Plan Discharge Clinical Impression: Chest pain Qualifiers: Chest pain type: precordial pain Qualified Code(s): R07.2 - Precordial pain CHF (congestive heart failure) Qualifiers: Heart failure type: systolic Heart failure chronicity: acute on chronic Q ualified Code(s): I50.23 - Acute on chronic systolic (congestive) heart failure Patient Disposition: Home, Self-Care Instructions: Heart Failure (ED), Chest Pain (ED) Additional Instructions: negative covid / flu testing two negative troponin tests, BNP at your baseline CT scan shows no flud in the lungs please call Dr. Storey office on Friday continue your medications if you get that severe pain again please do not wait come back. Prescriptions: No Action (DME) FreeStyle Lite Strips Strip See Rx Instructions .Route Qty: 100 5RF Rx Instructions: As directed check sugar twice a day before meals (DME) insulin syringe-needle U-100 [BD Veo Insulin Syringe UF] 1/2 mL 31 gauge x 15/64 syringe See Rx Instructions .Route Qty: 200 1RF Rx Instructions: As directed twice a day (DME) scale-accommodate weight 300 lbs See Rx Instructions .Route .MEDSUPPLY Qty: 1 0RF Rx Instructions: As directed carvedilol 6.25 mg tablet 6.25 mg PO BID 90 Days Qty: 180 2RF amiodarone 200 mg tablet 200 mg PO DAILY Qty: 30 5RF atorvastatin 40 mg tablet 40 mg PO DAILY Qty: 90 3RF spironolactone 25 mg tablet 25 mg PO DAILY Qty: 60 6RF Trulicity 3 mg/0.5 mL pen injector 3 mg subcut QWEEK Qty: 2 5RF warfarin 2.5 mg tablet 5 mg PO DAILY Qty: 60 3RF Protocol: Dose Management Condition: Friday (Week One) Dose/Route: 5 mg Instruction: 2 x 2.5 mg tablets Condition: Friday Dose/Route: 5 mg Instruction: 2 x 2.5 mg tablets Condition: Friday Dose/Route: 5 mg Instruction: 2 x 2.5 mg tablets Condition: Friday Dose/Route: 2.5 mg Instruction: 1 x 2.5 mg tablet Condition: Dose/Route: 5 mg Instruction: 2 x 2.5 mg tablets Condition: Friday Dose/Route: 5 mg Instruction: 2 x 2.5 mg tablets Condition: Friday Dose/Route: 5 mg Instruction: 2 x 2.5 mg tablets Condition: Friday (Week Two) Dose/Route: 5 mg Instruction: 2 x 2.5 mg tablets Condition: Friday Dose/Route: 5 mg Instruction: 2 x 2.5 mg tablets Condition: Friday Dose/Route: 5 mg Instruction: 2 x 2.5 mg tablets Condition: Friday Dose/Route: 2.5 mg Instruction: 1 x 2.5 mg tablet Condition: Dose/Route: 5 mg Instruction: 2 x 2.5 mg tablets Condition: Friday Dose/Route: 5 mg Instruction: 2 x 2.5 mg tablets Condition: Friday Dose/Route: 5 mg Instruction: 2 x 2.5 mg tablets Protocol Text: Adjustment Start Date: Friday01/31/23 INR Value: 2.8 INR Date: 01/31/23 Recheck Date: 02/14/23 Additional Instructions: INR is in range continue usual dosing balance greens and reds in diet, be consistent, be aware of the reds that raise over Thanksgiving Rx Instructions: green tablet , pt allergic to red dye insulin degludec [Tresiba FlexTouch U-100] 100 unit/mL (3 mL) insulin pen 42 unit subcut BEDTIME insulin lispro 100 unit/mL insulin pen 12 unit subcut TID clotrimazole [Athlete's Foot (clotrimazole)] 1 % cream 1 appl topical BID 28 Days Qty: 45 0RF (DME) blood-glucose meter [FreeStyle Lite Meter] Kit See Rx Instructions .Route Rx Instructions: As directed (DME) lancets [FreeStyle Lancets] 28 gauge misc See Rx Instructions .Route Rx Instructions: As directed (DME) pen needle, diabetic [BD Ultra-Fine Short Pen Needle] 31 gauge x 5/16 needle See Rx Instructions .ROUTE .COMPLEX Dose Instruction: USE 1 PEN NEEDLE ONCE DAILY WITH LANTUS INSULIN Rx Instructions: USE 4 times a day bumetanide 2 mg tablet See Rx Instructions PO .COMPLEX Qty: 90 3RF Rx Instructions: Take 2 mg b.i.d. alternating with 3 mg b.i.d. on alternate days orally; albuterol sulfate 90 mcg/actuation HFA aerosol inhaler 0 mcg inhalation losartan 25 mg tablet 25 mg PO DAILY nystatin [Nystop] 100,000 unit/gram powder 1 appl topical BID-TID PROBIOTIC GUMMY PO Patient Comments: TAKING DAILY AFTER BEING ON ANTIBIOTIC
--- NOTE | 2023-02-14 14:05 | ECG_ITS ---
Test Reason : CP Blood Pressure : / mmHG Vent. Rate : 097 BPM Atrial Rate : 097 BPM P-R Int : 168 ms QRS Dur : 152 ms QT Int : 400 ms P-R-T Axes : 113 -43 110 degrees QTc Int : 508 ms Normal sinus rhythm Left axis deviation Left bundle branch block Abnormal ECG When compared with ECG of 08-DEC-2022 20:23, No significant change was found Referred By: Hattie Monotya Electronically Signed By:ESVIN ERICKSON MD
[2023-02-14 14:37] LABS: MANUAL DIFF FLAG NO
[2023-02-14 14:41] LABS: Basophils Absolute Auto 0.1 X10*3/uL (0.0-0.2); Eosinophils Absolute Auto 0.1 X10*3/uL (0.0-0.4); Hematocrit 41.1 % (37.0-47.0); Hemoglobin 13.2 g/dl (12.0-16.0); Imm Gran Abs Auto 0.02 X10*3/uL (0.00-0.03); Imm Gran Pct Auto 0.3 % (0.0-0.4); Lymphocytes Absolute Auto 1.9 X10*3/uL (1.2-4.9); Lymphocytes Percent Auto 26.5 % (20-40); Mean Corpuscular HGB Conc 32.1 g/dl (31.0-35.0); Mean Corpuscular Hemoglobin 29.9 pg (27.0-33.0); Mean Corpuscular Volume 93.2 fL (80.0-98.0); Mean Platelet Volume 10.1 fL (9.4-12.3); Monocytes Absolute Auto 0.4 X10*3/uL (0.1-1.2); Monocytes Percent Auto 5.8 % (2-11); Neutrophils Absolute Auto 4.6 x10*3/uL (2.0-8.3); Neutrophils Percent Auto 64.4 % (45-73); Platelet Count 225 X10*3/uL (160-400); Red Blood Count 4.41 X10*6/uL (4.20-5.50); Red Cell Distribution Width 13.3 % (11.0-16.0); White Blood Count 7.1 X10*3/uL (4.8-10.8)
[2023-02-14 14:45] LABS: Prothrombin Time 37.1 SEC (11.1-13.3)
[2023-02-14 14:58] LABS: Alanine Aminotransferase 12 U/L (0-31); Albumin Level 3.7 g/dL (3.5-5.0); Alkaline Phosphatase 100 U/L (39-117); Anion Gap 15 (12-20); Aspartate Amino Transferase 13 U/L (5-31); Bilirubin Total 0.9 mg/dL (0.0-1.0); Blood Urea Nitrogen 35 mg/dL (9-16); Carbon Dioxide 26 mmol/L (22-29); Chloride 98 mmol/L (96-108); Creatinine Clr Calc Pharmacy 40.1; Estimated Glomerular Filt Rate 31; Glucose Random 309 mg/dL (60-115); Lipase 26 U/L (8-78); Magnesium 1.9 mg/dL (1.6-2.6); Potassium 3.7 mmol/L (3.3-5.1); Sodium 135 mmol/L (135-145); Total Protein 7.3 g/dL (6.5-8.0)
[2023-02-14 15:05] LABS: B Type Natriuretic Peptide 292 pg/mL (<100)
[2023-02-14 15:06] LABS: IDNOW Serial# BCCEAD1C; Influenza A Negative (Negative); Influenza B2 Negative (Negative)
[2023-02-14 15:07] LABS: COVID-19 Test Negative (Negative); IDNOW Serial# 08D9AD1C
[2023-02-14 15:15] LABS: Troponin-I High Sensitivity 11.5 ng/L (<3.5-17.0)
[2023-02-14 20:08] VITALS: BP 106/63; PULSE 94; RESP 18; O2SAT 96
[2023-02-14] MEDS: Bumetanide 1 MG/4 ML VIAL IVPUSH (21:08)
[2023-02-14 21:51] LABS: B Type Natriuretic Peptide 254 pg/mL (<100); Troponin-I High Sensitivity 14.9 ng/L (<3.5-17.0)
== END 2023-02-14 22:38 | disposition home or self-care (01) ==
PROVIDERS: Nurse Practitioner Family; Emergency Provider Emergency Medicine; PCP Internal Medicine
DX: R07.89 Other chest pain (principal); I50.23 Acute on chronic systolic (congestive) heart failure; I25.10 Atherosclerotic heart disease of native coronary artery without angina pectoris; R06.02 Shortness of breath; R60.0 Localized edema; Z11.52 Encounter for screening for COVID-19; Z20.822 Contact with and (suspected) exposure to COVID-19; Z79.899 Other long term (current) drug therapy
CPT/HCPCS: 36415; 71046; 71250; 80053; 83690; 83735; 83880; 84484; 85025; 85610; 87502; 87635; 93005; 96374; 99211; 99284; 99285

== ENCOUNTER → 2023-02-14 14:05 | Outpatient (BNV) | payer MEDICARE, SELFPAY | PROVIDERS: PCP Internal Medicine; Visit Provider Internal Medicine Cardiovascular Disease | DX: I44.7 Left bundle-branch block, unspecified (principal); R94.31 Abnormal electrocardiogram [ECG] [EKG] | CPT/HCPCS: 93010 ==

== ENCOUNTER → 2023-02-28 13:51 | Outpatient (REF) | payer MEDICARE, SELFPAY ==
--- NOTE | 2023-02-28 13:53 | CA_ITS ---
Transthoracic Echocardiogram Patient (Last, First, Middle): July Dorantes J Gender: Female Date of : 1955 Age: 68 Procedure Date: 02/28/2023 Procedure Type: Transthoracic Echocardiogram Location: OP Height: 165.1 cm Weight: 108.86 kg BSA: 2.14 m2 Heart Rate: 93 bpm BP: 115 / 80 mmHg Real Estate Associate: IRA Referring MD: Cesar Storey MD Symptoms: I50.20 - Unspecified systolic (congestive) heart failure Study Quality: Fair/w Contrast/Limited ECG Rhythm: Atrial Fibrillation Conclusions: - Moderately increased left ventricular cavity size. There is normal left ventricular wall thickness. The left ventricular systolic function is severely decreased. The visually estimated ejection fraction is between 15-20%. Findings Procedure Information Contrast agent, definity, is being given per protocol with complications as noted. Left Ventricle Moderately increased left ventricular cavity size. There is normal left ventricular wall thickness. The left ventricular systolic function is severely decreased. The visually estimated ejection fraction is between 15 20%. There is severe global hypokinesis. Diastolic function is indeterminate on the basis of available data. Right Ventricle Normal right ventricular cavity size and systolic function. Tricuspid Valve Moderately elevated right atrial pressure. Venous The inferior vena cava is normal in size and collapses less than 50% with inspiration. Pericardium/Pleural There is no evidence of pericardial effusion. Prior Study Comparison Changes noted compared to prior study dated: 08/01/2022. EF severely reduced. Measurements 2D Linear Measurements IVSd: 0.87 0.6-0.9/0.6-1.0 cm LVIDd: 6.20 3.9-5.3/4.2-5.9 cm LVIDd Index: 2.90 2.4-3.2/2.2-3.1 cm/m2 LVIDs: 5.69 2.0-3.6 cm LVPWd: 0.89 0.7-1.1 cm LV Mass: 276.47 67-162/88-224 g LV Mass Index: 129.19 43-95/49-115 g/m2 LVOT Diam: 2.40 3.0+(-)1.3 cm 2D Systolic Function EF 4C: 25.80 >55% EF 2C: 23.00 >55% EF BiP: 23.50 >55% LVOT LVOT Pk Héctor: 0.63 LVOT Mn Héctor: 0.42 LVOT VTI: 0.09 LVOT Pk Grad: 2.00 LVOT Mn Grad: 1.00 LVOT Diam: 2.40 LVOT Area: 4.52 Updated in Other Vendor System with Status of Final Cesar Storey MD electronically signed on 02/28/2023 3:26:49 PM with status of Final
== END ==
LOC: HO.CARD 13:51
PROVIDERS: PCP Internal Medicine; Visit Provider Internal Medicine Cardiovascular Disease
DX: I50.20 Unspecified systolic (congestive) heart failure (principal)
CPT/HCPCS: 93308; Q9957

== ENCOUNTER → 2023-02-28 13:53 | Outpatient (BNV) | payer MEDICARE, SELFPAY | PROVIDERS: PCP Internal Medicine; Visit Provider Internal Medicine Cardiovascular Disease | DX: I50.20 Unspecified systolic (congestive) heart failure (principal); I48.19 Other persistent atrial fibrillation | CPT/HCPCS: 93308 ==

== ENCOUNTER 2023-03-01 05:56 | Inpatient (IN) | payer MEDICARE, SELFPAY ==
[2023-03-01] VITALS (13 sets, daily range): BP systolic 91–126; BP diastolic 52–90; PULSE 90–108; RESP 15–22; TEMP 36.2–36.7; O2SAT 92–100; BMI 41.3
--- NOTE | 2023-03-01 | ECG_ITS ---
Test Reason : CP Blood Pressure : / mmHG Vent. Rate : 107 BPM Atrial Rate : 000 BPM P-R Int : 000 ms QRS Dur : 154 ms QT Int : 392 ms P-R-T Axes : 000 -42 101 degrees QTc Int : 523 ms Atrial flutter with variable block Left axis deviation Left bundle branch block Abnormal ECG When compared with ECG of 14-FEB-2023 14:12, Atrial flutter present Referred By: Generic ED Physician Electronically Signed By:Cesar Storey
--- NOTE | ~2023-03-01 | XR_ITS ---
EXAMINATION: XR CHEST CLINICAL INFORMATION: Shortness of breath COMPARISON: Chest 02/14/2023 TECHNIQUE: Frontal view of the chest was obtained. FINDINGS: The lungs are well-expanded with increased bilateral vascular markings. No acute consolidation seen. The heart size and progress clarities normal. No gross bony abnormality. XR/XR chest 1V IMPRESSION: Increased bilateral pulmonary vascular markings likely congestion. No acute consolidation seen. .
--- NOTE | 2023-03-01 06:19 | MHC.EDTECH ---
Patient came in by ambulance,changed into hospital attire and placed on the playground monitor ,vitals were taken and labs were obtained and sent to lab.call travis within reach
[2023-03-01 06:22] LABS: Hematocrit 40.8 % (37.0-47.0); Hemoglobin 13.5 g/dl (12.0-16.0); Mean Corpuscular HGB Conc 33.1 g/dl (31.0-35.0); Mean Corpuscular Hemoglobin 30.8 pg (27.0-33.0); Mean Corpuscular Volume 92.9 fL (80.0-98.0); Mean Platelet Volume 10.1 fL (9.4-12.3); Platelet Count 277 X10*3/uL (160-400); Red Blood Count 4.39 X10*6/uL (4.20-5.50); Red Cell Distribution Width 13.6 % (11.0-16.0); White Blood Count 9.2 X10*3/uL (4.8-10.8)
--- NOTE | 2023-03-01 06:25 | MHC.EDTECH ---
Resp.swab was obtained and sent to lab
--- NOTE | 2023-03-01 06:26 | PC.NURSE ---
Pt reports punching tight substernal chest pain 6/10, non-radiating with associated SOB/cough, upon EMS arrival 92% RA, placed on 2LNC and sats 100%, lungs clear. IV placed #20 R-AC(EMS). Pt has non-pitting edema from feet - knees. PT took 4 baby asa prior to EMS arrival. Pt reporting pain improved 2/10. EKG complete, labs drawn and RPP sent to lab.
--- NOTE | 2023-03-01 06:34 | ED.CHESTPAIN ---
HPI - Chest Pain General Chief Complaint: Chest Pain Stated Complaint: cp Time Seen by Provider: 03/01/23 06:32 Source: patient and RN notes reviewed Mode of arrival: ambulatory Limitations: no limitations History of Present Illness HPI narrative: This is a 68 yo female with PMH of PAF on coumadin, CAD, CKD, prolonged qtc, CHF EF 15-20%, LBBB, uterine cancer, DM, HLD, OA, asthma, hiatal hernia, HTN, presenting to the emergency department with complaints of ongoing chest pain and shortness of breath since . Patient reports that since , approximately 3 weeks ago, she has been experiencing chest pain which is constant however waxes and wanes in severity. She describes the pain as a soreness sensation which becomes more severe. She also reports that she has had increased shortness of breath. She states that approximately at 5:00 a.m. this morning while she was awake using her computer she developed worsening shortness of breath, stating that this is the worst that it has ever been. She denies the pain radiating anywhere. She reports increased shortness of breath as well. She reports she has also had worsening lower extremity swelling. She also endorses some dizziness. No abdominal pain, nausea, vomiting or diarrhea. No other complaints or concerns at this time. MD complaint: chest pain, chest heaviness and chest discomfort Onset (ago): week(s) Timing of current episode: constant and increasing Prior episodes: Yes Onset: during rest Pain location: substernal Pain radiation: none Severity: moderate Quality: aching and heaviness Relieving factors: nothing Exacerbating factors: nothing Treatment prior to arrival: aspirin Risk Factors Coronary artery disease risk factors: hyperlipidemia and hypertension Related Data On Oral Contraceptives: No Home Medications Medication Instructions Recorded Confirmed blood-glucose meter (FreeStyle 10/25/21 03/06/23 Lite Meter kit) lancets 28 gauge (FreeStyle 10/25/21 03/06/23 Lancets) pen needle, diabetic 31 gauge x 06/04/22 03/06/2307/30 (BD Ultra-Fine Short Pen Needle) albuterol sulfate 90 mcg/actuation 180 mcg inhalation Q6H PRN 08/19/22 03/06/23 aerosol inhaler Shortness Of Breath Or Wheezing nystatin 100,000 unit/gram topical 1 appl topical BID PRN Rash 11/25/22 03/06/23 powder (Nystop) insulin lispro 100 unit/mL 12 unit subcut TIDAC 01/06/23 03/06/23 subcutaneous pen losartan 25 mg tablet 25 mg PO DAILY 01/27/23 03/06/23 bumetanide 2 mg tablet 2 mg PO Q2D@0900 03/01/23 03/06/23 bumetanide 2 mg tablet 2 mg PO Q2D@2100 03/01/23 03/06/23 bumetanide 2 mg tablet 3 mg PO Q2D@0900 03/01/23 03/06/23 bumetanide 2 mg tablet 3 mg PO Q2D@2100 03/01/23 03/01/23 dulaglutide 3 mg/0.5 mL 3 mg subcut FR@0900 03/01/23 03/06/23 subcutaneous pen injector (Trulicity) warfarin 2.5 mg tablet 2.5 mg PO WE@1800 03/01/23 03/12/23 warfarin 2.5 mg tablet 5 mg PO SUMOTUTHFRSA@1800 03/01/23 03/12/23 insulin degludec 200 unit/mL (3 42 unit subcut BEDTIME 03/12/23 03/12/23 mL) subcutaneous pen (Tresiba FlexTouch U-200 insulin) Previous Rx's Medication Instructions Recorded blood sugar diagnostic (FreeStyle #100 ea 10/11/20 Lite Strips) insulin syringe-needle U-100 1/2 #200 ea 11/13/21 mL 31 gauge x 15/64 (BD Veo Insulin Syringe Ultra-Fine) scale-accommodate weight 300 lbs #1 ea 05/16/22 carvedilol 6.25 mg tablet 6.25 mg PO BID 90 days #180 tabs 06/06/22 clotrimazole 1 % topical cream 1 appl topical BID 4 weeks #45 08/20/22 (Athlete's Foot (clotrimazole)) grams atorvastatin 40 mg tablet 40 mg PO DAILY #90 tabs 11/04/22 spironolactone 25 mg tablet 25 mg PO DAILY #60 tabs 02/03/23 amiodarone 200 mg tablet 200 - 400 mg (1 - 2 x 200 mg) PO 03/05/23 DAILY #45 tabs Allergies Allergy/AdvReac Type Severity Reaction Status Date / Time red dye [Red Dye] Allergy Severe HIVES,THROAT Verified 03/12/23 13:26 CLOSES FROM RED FOOD DYE Review of Systems Review of Systems: Yes all other systems are reviewed and are negative Constitutional: Constitutional: Reports as per [facility] Past Medical History Attestation statement: The following information was validated with the patient. Medical History History of uterine cancer Personal history of malignant neoplasm of other parts of uterus Persistent atrial fibrillation Tinea pedis History of cardioversion Cardiomyopathy Coronary arteriosclerosis Ischemic cardiomyopathy Colonoscopy refused Incomplete left bundle branch block (LBBB) Endometrial adenocarcinoma Post-menopausal bleeding Type 2 diabetes mellitus with hyperglycemia, with long-term current use of insulin Obesity due to excess calories Diabetes type 2, uncontrolled Vitamin D deficiency Mixed dyslipidemia Papanicolaou smear declined Mammogram declined Osteoarthritis, knee Diabetic neuropathy History of esophagitis Mild intermittent asthma Uterine fibroid History of basal cell carcinoma Osteonecrosis of right hip Hiatal hernia History of cholelithiasis Morbid obesity Essential hypertension Type 2 diabetes mellitus with hyperglycemia, without long-term current use of insulin Irritable bowel syndrome (IBS) Surgical History S/P CLARE-BSO (total abdominal hysterectomy and bilateral salpingo-oophorectomy) S/P cardiac catheterization History of hysterectomy H/O hernia repair Hx of section History of hip surgery Hx of colonoscopy History of cholecystectomy Family History Family History Father Myocardial infarction Cardiovascular disease Mother Diabetes mellitus Essential hypertension Daughter Anxiety disorder Mental health disorder Son Mental health disorder Social History Social History Household Members: Spouse and Children Housing: House Are you a primary family member caretaker to a significant other at home: No Do you presently have visiting nurse or other home services: No Alcohol intake: never Comment: pt refuses alarms Patient Tobacco Use Status: Never used Tobacco e-Cigarette/Vaping Use: Never Used Second Hand Smoke Exposure: No Advance Directives Date on File: 04/08/22 service: No Current occupational status: retired Current occupational exposures/hazards: No Cognitive needs: No Hearing needs: No Vision needs: Yes Physical Exam Vital Signs: Vital Signs: Last Vital Signs Temp 97.2 F 03/05/23 11:00 Pulse 67 03/05/23 11:00 Resp 18 03/05/23 11:00 BP 102/66 03/05/23 11:00 Pulse Ox 96 03/05/23 11:00 O2 Del Method Room Air 03/05/23 11:00 O2 Flow Rate 2 03/04/23 10:45 Oxygen Flow Rate 2 03/01/23 06:10 BMI result Body Mass Index 41.3 Const: General: cooperative, comfortable and no acute distress Orientation/consciousness: patient oriented x3 Limitations: no limitations HEENT: Head: Yes normal to inspection, Yes normocephalic and Yes atraumatic Ears: hearing grossly normal bilaterally General nose exam: Normal external nose present Face and sinus: Yes normal facial exam Mouth: Normal oral and palatal mucosa present, oropharynx normal and moist mucous membranes Throat: Yes posterior oropharynx normal Eyes: General: appearance normal, both eyes and all related structures Eyelids: Yes eyelids normal Conjunctivae: conjunctivae normal Sclerae: sclerae normal Pupils: Equal, round and reactive pupils present EOM: EOMs intact bilaterally Neck: Neck: Yes normal visual inspection, Yes full ROM and Yes no lymphadenopathy Lymphatic: no lymphadenopathy noted Chest: Chest palpation & inspection: normal inspection of the chest Resp: Other: Crackles heard at the right lung base, speaking in 2-3 word sentences. Effort & Inspection: normal respiratory effort Cardio: Other: Irregularly irregular Heart sounds: S1 normal heart sound present and S2 normal heart sound present GI: Inspection: Yes normal to inspection Skin: General skin exam: no rashes or lesions noted Trauma: no lacerations or abrasions Wounds: no wounds Neuro: General: patient oriented x3 and moves all extremities Cranial nerves: Yes Equal, round and reactive pupils present Extrem: Other: 2+ pitting edema noted bilaterally, no calf tenderness. Unable to palpate DP pulses however able to obtain strong pulse with Doppler General: Yes normal to inspection Right upper extremity: normal to inspection Left upper extremity: normal to inspection Right lower extremity: normal to inspection Left lower extremity: normal to inspection Course Reevaluation(s) Reevaluation #1: Reach out to Dr. Storey, from Cardiology. Time: 07:17 Reevaluation #2: Review of labs revealing no leukocytosis, stable H&H, sodium 133, BUN 43, creatinine 2.15, increased from her typical creatinine level of 1.8, BNP 151, hyper glycemic at 342 Dr Storey reviewed case and echocardiogram, she had a drop in her ejection fraction that was performed on echo yesterday, he is requesting hospital admission and take administer IV diuretics, specifically Lasix 80 mg IV. He reviewed the EKG, left bundle branch on EKG is not a new finding. Advising to give pain medication as needed. Patient appears comfortable. Discussed this with patient and daughter at bedside, they are in agreement with this plan and are in agreement with hospital admission for further management treatment of her symptoms. Time: 07:45 Reevaluation #3: Spoke to Dr. Jackson who accepts initiation and transfer of care for CHF exacerbation and LUIS FELIPE superimposed on CKD Time: 07:58 Additional Reevaluation(s): 820 - chest x-ray revealing increased bilateral pulmonary vascular markings likely congestion. No acute consolidation seen. Pending admission at this time. Medications Administered Discontinued Medications Generic Name Dose Route Start Last Admin Trade Name Freq PRN Reason Stop Dose Admin Amiodarone HCl 200 mg 03/01/23 12:45 03/04/23 10:01 Amiodarone Hcl 200 Mg Tablet PO 200 mg DAILY CARLENE Administration Atorvastatin Calcium 40 mg 03/01/23 12:45 03/05/23 08:29 Atorvastatin Calcium 40 Mg Tablet PO 40 mg DAILY CARLENE Administration Benzonatate 100 mg 03/02/23 09:01 03/04/23 16:06 Benzonatate 100 Mg Capsule PO 100 mg TID PRN Administration Cough Carvedilol 3.125 mg 03/02/23 21:00 03/05/23 08:29 Carvedilol 3.125 Mg Tablet PO 3.125 mg BID CARLENE Administration Protocol Furosemide 80 mg 03/01/23 07:42 03/01/23 08:05 Furosemide 100 Mg/10 Ml Vial IVPUSH 03/01/23 07:43 80 mg ONCE ONE Administration Protocol Furosemide 80 mg 03/01/23 10:44 03/01/23 11:43 Furosemide 100 Mg/10 Ml Vial IVPUSH 03/01/23 10:45 80 mg ONCE ONE Administration Protocol Furosemide 200 mg/ Sodium 100 mls @ 5 mls/hr 03/01/23 12:00 03/02/23 18:21 Chloride IVCONT Infused .Q20H CARLENE Infusion 10 MG/HR Furosemide 200 mg/ Sodium 100 mls @ 5 mls/hr 03/02/23 18:00 03/05/23 10:41 Chloride IVCONT Infused .Q20H CARLENE Infusion 10 MG/HR Amiodarone HCl 900 mg/ Sodium 518 mls @ 34.533 mls/hr 03/04/23 10:15 03/05/23 01:18 Chloride IVCONT Not Given .Q15H1M CARLENE Protocol 1 MG/MIN Amiodarone HCl 150 mg in 100 mls @ 600 mls/hr 03/04/23 10:15 03/04/23 11:25 Nexterone IV 03/04/23 10:24 Infused ONCE ONE Infusion Insulin Human Lispro 0 unit 03/01/23 16:30 03/05/23 12:47 Insulin Lispro 100 Unit/Ml 3 Ml Vial SUBCUT 6 unit QIDACHS [facility] Administration Protocol Magnesium Oxide 400 mg 03/02/23 08:30 03/05/23 08:29 Magnesium Oxide 400 Mg Tablet PO 400 mg BIDPC [facility] Administration Potassium Chloride 20 meq 03/02/23 07:55 03/02/23 08:40 Potassium Chloride Packet 20 Meq Packet PO 03/02/23 07:56 20 meq ONCE ONE Administration Sodium Chloride 3 ml 03/01/23 16:00 03/05/23 08:28 0.9 % Sodium Chloride Flush 3 Ml Syringe IVFLUSH 3 ml QSHIFT [facility] Administration Spironolactone 25 mg 03/01/23 12:45 03/05/23 08:29 Spironolactone 25 Mg Tablet PO 25 mg DAILY CARLENE Administration Protocol Valsartan 20 mg 03/04/23 21:00 03/05/23 09:53 Valsartan 40 Mg Tablet PO Not Given BID [facility] Protocol Warfarin Sodium 5 mg 03/01/23 18:00 03/01/23 17:38 Warfarin Sodium 2.5 Mg Tablet PO 5 mg SUMOTUTHFRSA@1800 [facility] Administration Warfarin Sodium 3 mg 03/02/23 18:00 03/02/23 17:57 Warfarin Sodium 3 Mg Tablet PO 3 mg DAILY@1800 [facility] Administration Warfarin Sodium 2.5 mg 03/03/23 18:00 03/03/23 17:42 Warfarin Sodium 2.5 Mg Tablet PO 2.5 mg DAILY@1800 [facility] Administration Warfarin Sodium 2.5 mg 03/03/23 18:15 03/03/23 18:40 Warfarin Sodium 2.5 Mg Tablet PO 03/03/23 18:16 2.5 mg ONCE ONE Administration Warfarin Sodium 5 mg 03/04/23 18:00 03/04/23 17:36 Warfarin Sodium 2.5 Mg Tablet PO 5 mg DAILY@1800 CARLENE Administration Medical Decision Making Medical Decision Making [facility] Narrative: This is a 68 yo female with PMH of PAF on coumadin, CAD, CKD, prolonged qtc, CHF EF 35%, LBBB, uterine cancer, DM, HLD, OA, asthma, hiatal hernia, HTN, presenting to the emergency department via EMS with complaints of ongoing chest pain and shortness of breath since . EN route, patient was found to be hypoxic at 92%, placed on 2 L nasal cannula. Patient also received 4 baby aspirin prior to EMS arrival. EKG was obtained, revealing atrial fibrillation with rapid RVR, ventricular rate of 107, there is a left branch bundle block which is seen on previous EKG performed on February 14, 2023. patient had echocardiogram performed yesterday revealing an ejection fraction of 15-20%, which is worsening from her previous which was around 30- 35% Plan: Labs, EKG, chest x-ray, cardiology consult, +/- IV diuretics Differential Diagnosis Differential Diagnoses: The differential diagnosis associated with the presentation includes CHF, NSTEMI, ACS, pneumonia Admission/Observation Consideration of admission/observation: Escalation of care including admission/observation considered Escalation of care including admission considered given significant past medical history, O2 requirements Consult Healthcare Provider Management of the patient was discussed with: Hospitalist and Foreclosure Specialist Dr. Storey, insurance sales professional Dr. Jackson, hospitalist Lab Data [facility] Lab Attestation statement: I reviewed the patient's lab results. No leukocytosis, stable H&H BNP 151, creatinine 2.1, BUN 43, sodium 133, potassium 4.9. 03/01/23 06:18 03/05/23 06:59 Labs: Lab Results 03/01/23 03/01/23 03/01/23 Range/Units 06:18 06:25 07:45 WBC 9.2 (4.8-10.8) X10*3/uL RBC 4.39 (4.20-5.50) X10*6/uL Hgb 13.5 (12.0-16.0) g/dl Hct 40.8 (37.0-47.0) % MCV 92.9 (80.0-98.0) fL MCH 30.8 (27.0-33.0) pg MCHC 33.1 (31.0-35.0) g/dl RDW 13.6 (11.0-16.0) % Plt Count 277 (160-400) X10*3/uL MPV 10.1 (9.4-12.3) fL Absolute Nucleated RBC 0.000 (0.0-0.012) X10*3/uL Nucleated RBC % (auto) 0.0 (0.0-0.2) /100WBC PT 34.0 H (11.1-13.3) SEC INR 2.8 H (0.9-1.1) APTT 43.7 H (26.0-36.4) SEC Sodium 133 L (135-145) mmol/L Potassium 4.9 D (3.3-5.1) mmol/L Chloride 97 (96-108) mmol/L Carbon Dioxide 24 (22-29) mmol/L Anion Gap 17 (12-20) BUN 43 H (9-16) mg/dL Creatinine 2.15 H (0.5-1.4) mg/dL Estim Creat Clear Calc 31.7 Estimated GFR 23 Random Glucose 342 H (60-115) mg/dL Calcium 9.3 (8.4-10.2) mg/dL Total Bilirubin 0.7 (0.0-1.0) mg/dL AST 16 (5-31) U/L ALT 15 (0-31) U/L Alkaline Phosphatase 96 (39-117) U/L Troponin I High Sens 8.4 (<3.5-17.0) ng/L B-Natriuretic Peptide 151 H (<100) pg/mL Total Protein 7.6 (6.5-8.0) g/dL Albumin 4.0 (3.5-5.0) g/dL Urine Color Urine Appearance Urine pH (5.0-9.0) Ur Specific [place] (1.005-1.025) Urine Protein (Neg-Trace) mg/dL Urine Glucose (UA) (Negative) mg/dL Urine Ketones (Negative) mg/dL Urine Blood (Negative) Urine Nitrite (Negative) Ur Leukocyte Esterase (Negative) Urine RBC (0-2) /HPF Urine WBC (0-5) /HPF Ur Squamous Epith Cells (0-2) /HPF Urine Bacteria (None Seen) Hyaline Casts (0-2) /LPF Respiratory Panel Esparza Cancelled Adenovirus (Rapid PCR) Cancelled B.pert (TEM-PCR) Cancelled B.parapertussis DNA PCR Cancelled C. pneumoniae DNA (PCR) Cancelled Coronavirus OC43 (PCR) Cancelled Coronavirus HKU1 (PCR) Cancelled Coronavirus 229E (PCR) Cancelled Coronavirus NL63 (PCR) Cancelled Human Metapneumovir PCR Cancelled Influenza A (RT-PCR) Cancelled Influenza B (RT-PCR) Cancelled M. pneumoniae (PCR) Cancelled Parainfluenza 1 (PCR) Cancelled Parainfluenza 2 (PCR) Cancelled Parainfluenza 3 (PCR) Cancelled Parainfluenza 4 (PCR) Cancelled RSV (PCR) Cancelled Entero/Rhino (PCR) Cancelled SARS-CoV-2 RNA (RT-PCR) Cancelled 03/01/23 03/01/23 Range/Units 09:39 12:10 WBC (4.8-10.8) X10*3/uL RBC (4.20-5.50) X10*6/uL Hgb (12.0-16.0) g/dl Hct (37.0-47.0) % MCV (80.0-98.0) fL MCH (27.0-33.0) pg MCHC (31.0-35.0) g/dl RDW (11.0-16.0) % Plt Count (160-400) X10*3/uL MPV (9.4-12.3) fL Absolute Nucleated RBC (0.0-0.012) X10*3/uL Nucleated RBC % (auto) (0.0-0.2) /100WBC PT (11.1-13.3) SEC INR (0.9-1.1) APTT (26.0-36.4) SEC Sodium (135-145) mmol/L Potassium (3.3-5.1) mmol/L Chloride (96-108) mmol/L Carbon Dioxide (22-29) mmol/L Anion Gap (12-20) BUN (9-16) mg/dL Creatinine (0.5-1.4) mg/dL Estim Creat Clear Calc Estimated GFR Random Glucose (60-115) mg/dL Calcium (8.4-10.2) mg/dL Total Bilirubin (0.0-1.0) mg/dL AST (5-31) U/L ALT (0-31) U/L Alkaline Phosphatase (39-117) U/L Troponin I High Sens 12.9 D (<3.5-17.0) ng/L B-Natriuretic Peptide (<100) pg/mL Total Protein (6.5-8.0) g/dL Albumin (3.5-5.0) g/dL Urine Color Yellow Urine Appearance Clear Urine pH 5.5 (5.0-9.0) Ur Specific [place] 1.010 (1.005-1.025) Urine Protein Negative (Neg-Trace) mg/dL Urine Glucose (UA) Negative (Negative) mg/dL Urine Ketones Negative (Negative) mg/dL Urine Blood Negative (Negative) Urine Nitrite Negative (Negative) Ur Leukocyte Esterase Moderate (2+) H (Negative) Urine RBC 0-2 (0-2) /HPF Urine WBC 11-20 H (0-5) /HPF Ur Squamous Epith Cells 0-2 (0-2) /HPF Urine Bacteria 4+ (None Seen) Hyaline Casts 0-2 (0-2) /LPF Respiratory Panel Esparza See Note Adenovirus (Rapid PCR) Not Detected B.pert (TEM-PCR) Not Detected B.parapertussis DNA PCR Not Detected C. pneumoniae DNA (PCR) Not Detected Coronavirus OC43 (PCR) Not Detected Coronavirus HKU1 (PCR) Not Detected Coronavirus 229E (PCR) Not Detected Coronavirus NL63 (PCR) Not Detected Human Metapneumovir PCR Not Detected Influenza A (RT-PCR) Not Detected Influenza B (RT-PCR) Not Detected M. pneumoniae (PCR) Not Detected Parainfluenza 1 (PCR) Not Detected Parainfluenza 2 (PCR) Not Detected Parainfluenza 3 (PCR) Not Detected Parainfluenza 4 (PCR) Not Detected RSV (PCR) Not Detected Entero/Rhino (PCR) Not Detected SARS-CoV-2 RNA (RT-PCR) Not Detected Independent Interpretation I performed an independent interpretation of an: EKG Interpretation: EKG atrial fibrillation with rapid RVR at a ventricular rate of 107 beats per minute, QRS 154, QTC 523, left bundle branch block seen, similar appearing EKG when compared to EKG performed on February 14, 2023, however today's EKG revealing atrial fibrillation with rapid RVR Radiology Impression Discussion of test interpretation with radiology: I have reviewed the radiologist's reading. Radiologist Impression: EXAMINATION: XR CHEST CLINICAL INFORMATION: Shortness of breath COMPARISON: Chest 02/14/2023 TECHNIQUE: Frontal view of the chest was obtained. FINDINGS: The lungs are well-expanded with increased bilateral vascular markings. No acute consolidation seen. The heart size and progress clarities normal. No gross bony abnormality. XR/XR chest 1V IMPRESSION: Increased bilateral pulmonary vascular markings likely congestion. No acute consolidation seen. Dictated By: Kenny Sol MD Signed By: <Electronically signed Independent Historian Clinical information obtained from an independent historian. History obtained from or confirmed by: Other (Daughter at bedside) Chronic Conditions Patient?s care impacted by: Other Atrial fibrillation on Coumadin, coronary artery disease, chronic kidney disease, heart failure ejection fraction 15-20%, diabetes, hyperlipidemia, LISHA, hypertension Critical Care Time Critical Care Time Critical Care Time: Yes Total Critical Care Time: 35 Attestation: I have personally provided critical care time exclusive of time spent on separately billable procedures. Time includes review of lab data, radiology results, discussion with consultants, and monitoring for potential decompensation. Intervention performed as documented. Discharge Plan Discharge Clinical Impression: CHF (congestive heart failure), Acute kidney injury superimposed on chronic kidney disease Patient Disposition: Admitted As Inpatient Interventions: Admission Worksheet (ED) Last Done: 03/01/23 20:42 Discharge Date/Time: 03/01/23 21:14
[2023-03-01 06:41] LABS: Alanine Aminotransferase 15 U/L (0-31); Alkaline Phosphatase 96 U/L (39-117); Anion Gap 17 (12-20); Aspartate Amino Transferase 16 U/L (5-31); Bilirubin Total 0.7 mg/dL (0.0-1.0); Blood Urea Nitrogen 43 mg/dL (9-16); Calcium 9.3 mg/dL (8.4-10.2); Carbon Dioxide 24 mmol/L (22-29); Chloride 97 mmol/L (96-108); Creatinine Clr Calc Pharmacy 31.7; Estimated Glomerular Filt Rate 23; Glucose Random 342 mg/dL (60-115); Potassium 4.9 mmol/L (3.3-5.1); Sodium 133 mmol/L (135-145); Total Protein 7.6 g/dL (6.5-8.0)
--- NOTE | 2023-03-01 06:42 | PC.NURSE ---
Pt in room tearful reporting she is anxious and agitated. Pt has no PRN medications, previously given foods, drinks and warm blanket. Pt given nicotine patch as well. notified of pt report, no new orders at tis time, will update oncoming RN as well. Pt aware of change of shift and oncoming provider and RN will be made aware.
[2023-03-01 06:44] LABS: Troponin-I High Sensitivity 8.4 ng/L (<3.5-17.0)
[2023-03-01 06:46] LABS: B Type Natriuretic Peptide 151 pg/mL (<100)
[2023-03-01 07:59] LABS: INTERNATIONAL NORM RATIO 2.8 (0.9-1.1)
[2023-03-01 08:01] LABS: Partial Thromboplastin Time 43.7 SEC (26.0-36.4)
[2023-03-01] MEDS: Furosemide 100 MG/10 ML VIAL 80 MG IVPUSH ×2 (08:05→11:43)
--- NOTE | 2023-03-01 09:40 | PHA.MEDREC ---
Pharmacy Consult ? Medication Reconciliation Pharmacy has completed the medication reconciliation. Spoke to patient to confirm meds.
[2023-03-01 10:21] LABS: Troponin-I High Sensitivity 12.9 ng/L (<3.5-17.0)
--- NOTE | 2023-03-01 10:37 | P.CONCA_ITS ---
History of Present Illness History of Present Illness Date of Service: 03/01/23 Requesting physician: Emilia Santoro Chief complaint: cp, CHF Narrative: [age] female with known cardiomyopathy and coronary disease. 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 She was doing fairly well till Thanks when she started noticing palpitations and chest pains. She is describing failure atypical chest pain which is central and is present all the time. Her biomarkers are normal. She also has left bundle- branch block. She said over the last few weeks she progressively was getting more short of breath and was gaining weight. She was feeling palpitations. On February 14 she came the ER and was observed and discharged home. She had an echocardiogram performed yesterday which showed EF has dropped again to 15-20% with global hypokinesis and LV dilation. EKG is showing atrial flutter. She has been taking medications regularly. She has been on amiodarone 200 mg daily and was on Coumadin with therapeutic INRs. She has red dye allergy and previously we could not use metolazone and she was maintained on 2 mg b.i.d. metolazone alternating with 3 mg b.i.d. (on alternate days). She was given 80 mg of Lasix on admission. She is feeling somewhat better at this point. [facility] Past Medical History Medical History History of uterine cancer Personal history of malignant neoplasm of other parts of uterus Persistent atrial fibrillation Tinea pedis History of cardioversion Cardiomyopathy Coronary arteriosclerosis Ischemic cardiomyopathy Colonoscopy refused Incomplete left bundle branch block (LBBB) Endometrial adenocarcinoma Post-menopausal bleeding Type 2 diabetes mellitus with hyperglycemia, with long-term current use of insulin Obesity due to excess calories Diabetes type 2, uncontrolled Vitamin D deficiency Mixed dyslipidemia Papanicolaou smear declined Mammogram declined Osteoarthritis, knee Diabetic neuropathy History of esophagitis Mild intermittent asthma Uterine fibroid History of basal cell carcinoma Osteonecrosis of right hip Hiatal hernia History of cholelithiasis Morbid obesity Essential hypertension Type 2 diabetes mellitus with hyperglycemia, without long-term current use of insulin Irritable bowel syndrome (IBS) Family History Family History Father Myocardial infarction Cardiovascular disease Mother Diabetes mellitus Essential hypertension Daughter Anxiety disorder Mental health disorder Son Mental health disorder Surgical History Surgical History S/P CLARE-BSO (total abdominal hysterectomy and bilateral salpingo-oophorectomy) S/P cardiac catheterization History of hysterectomy H/O hernia repair Hx of section History of hip surgery Hx of colonoscopy History of cholecystectomy Social History Social History Household Members: Spouse and Children Housing: House Are you a primary career and guidance counselor to a significant other at home: No Do you presently have visiting nurse or other home services: No Alcohol intake: never Comment: pt refused bed/chair alarms Patient Tobacco Use Status: Never used Tobacco Smoked in Last 30 Days: No e-Cigarette/Vaping Use: Never Used Second Hand Smoke Exposure: No Use of substances other than those prescribed or required for medical reasons: No Advance Directives: Yes Advance Directives on File: Yes Advance Directives Date on File: 04/08/22 service: No Current occupational status: retired Current occupational exposures/hazards: No Cognitive needs: No Hearing needs: No Vision needs: Yes Meds Allergies Allergy/AdvReac Type Severity Reaction Status Date / Time red dye [Red Dye] Allergy Severe HIVES,THROAT Verified 03/01/23 06:10 CLOSES FROM RED FOOD DYE Home Medications Medication Instructions Recorded Confirmed Last Taken Type blood-glucose meter (FreeStyle 10/25/21 01/31/23 Unknown History Lite Meter kit) lancets 28 gauge (FreeStyle 10/25/21 01/31/23 Unknown History Lancets) pen needle, diabetic 31 gauge x 06/04/22 01/31/23 Unknown History 07/30 (BD Ultra-Fine Short Pen Needle) albuterol sulfate 90 mcg/actuation 180 mcg inhalation Q6H PRN 08/19/22 03/01/23 Unknown History aerosol inhaler Shortness Of Breath Or Wheezing nystatin 100,000 unit/gram topical 1 appl topical BID PRN Rash 11/25/22 03/01/23 Unknown History powder (Nystop) insulin lispro 100 unit/mL 12 unit subcut TIDAC 01/06/23 03/01/23 02/28/23 History subcutaneous pen losartan 25 mg tablet 25 mg PO DAILY 01/27/23 03/01/23 02/28/23 History bumetanide 2 mg tablet 2 mg PO Q2D@0900 03/01/23 03/01/23 02/27/23 History bumetanide 2 mg tablet 2 mg PO Q2D@2100 03/01/23 03/01/23 02/27/23 History bumetanide 2 mg tablet 3 mg PO Q2D@0900 03/01/23 03/01/23 02/28/23 History bumetanide 2 mg tablet 3 mg PO Q2D@2100 03/01/23 03/01/23 02/28/23 History dulaglutide 3 mg/0.5 mL 3 mg subcut FR@0900 03/01/23 03/01/23 02/28/23 History subcutaneous pen injector (Trulicity) warfarin 2.5 mg tablet 2.5 mg PO WE@1800 03/01/23 03/01/23 02/26/23 History warfarin 2.5 mg tablet 5 mg PO SUMOTUTHFRSA@1800 03/01/23 03/01/23 02/28/23 History Physical Exam 2 Vital Signs: Vital Signs: Last Vital Signs Temp 98.1 F 03/01/23 06:10 Pulse 93 03/01/23 08:09 Resp 15 03/01/23 08:09 BP 119/67 03/01/23 08:09 Pulse Ox 96 03/01/23 08:09 O2 Del Method Nasal Cannula 03/01/23 08:09 O2 Flow Rate 2 03/01/23 08:09 Oxygen Flow Rate 2 03/01/23 06:10 BMI result Body Mass Index 41.3 GENERAL APPEARANCE: in no acute distress, on supplemental oxygen NECK: no carotid bruit, + jugular venous distention. SKIN: no suspicious lesions, warm and dry. HEART: no murmurs, irregular rate and rhythm. LUNGS: clear to auscultation bilaterally. ABDOMEN: soft, nontender. Mildly distended with dullness to percussion in flanks. EXTREMITIES: +2 edema. PERIPHERAL PULSES: equal. NEUROLOGIC: No gross deficits, AAO X 3 Objective Labs and Meds 03/01/23 06:18 03/01/23 06:18 Lab results: Laboratory Results - last 24 hr 1203/01/23 03/01/23 06:18 07:45 09:39 WBC 9.2 RBC 4.39 Hgb 13.5 Hct 40.8 MCV 92.9 MCH 30.8 MCHC 33.1 RDW 13.6 Plt Count 277 MPV 10.1 Absolute Nucleated RBC 0.000 Nucleated RBC % (auto) 0.0 PT 34.0 H INR 2.8 H APTT 43.7 H Sodium 133 L Potassium 4.9 D Chloride 97 Carbon Dioxide 24 Anion Gap 17 BUN 43 H Creatinine 2.15 H Estim Creat Clear Calc 31.7 Estimated GFR 23 Random Glucose 342 H Calcium 9.3 Total Bilirubin 0.7 AST 16 ALT 15 Alkaline Phosphatase 96 Troponin I High Sens 8.4 12.9 D B-Natriuretic Peptide 151 H Total Protein 7.6 Albumin 4.0 Imaging Radiologist's impression: Impressions Chest X-Ray 03/01/23 07:00 IMPRESSION: Increased bilateral pulmonary vascular markings likely congestion. No acute consolidation seen. . Assessment and Plan (1) Acute on chronic systolic heart failure: Status: Acute (2) Atrial flutter: Status: Acute Plan 68-year-old female with known history of tachycardia induced cardiomyopathy with severely reduced ejection fraction which improved to 30 35% based on echo from July 2022. Echocardiography done yesterday as outpatient is showing severely reduced ejection fraction again. She got admitted to the hospital with atypical chest pains and palpitations along with dyspnea and significant weight gain. Clinically she is in heart failure. She is significantly volume overloaded. She was given 80 mg IV Lasix. I think she should stay on at least 80 mg IV b.i.d. Lasix. If this is not giving adequate diuresis of 1500 2 L per day then we may need to switch her to Lasix drip. If diuresis is challenging then carvedilol dose should be cut to half at 3.125 mg twice a day. Amiodarone and Coumadin should be continued as before and INR should be monitor closely. She has a left bundle-branch block. She has recurrent atrial flutter and previously also had atrial fibrillation. Our plan will be to cardiovert her Friday if she is ready by then. Subsequent to that I will refer her to electrophysiology as outpatient for consideration for ablation for atrial flutter and fibrillation and maybe a Bi V AICD given the fact that she has left bundle-branch block and ejection fraction did not improve completely despite the fact that she was in sinus rhythm for long time. Thank you for allowing me to participate in the care of your patient. Please feel free to contact me if you have any questions. Procedures Date of Service Date of Service: 03/01/23
--- NOTE | 2023-03-01 11:11 | P.HPHOSP_ITS ---
History of Present Illness Date of Service: 03/01/23 Attending physician on admission: Facundo Fajardo Chief Complaint: SOB Pt is a 68-year-old female with a PMH significant for?HFrEF with EF of 15-20%, tachycardia induced cardiomyopathy, HLD, persistent AFib on Coumadin s/p , CAD, CKD 3, IBS,hx of endometrial carcinoma, among others who presents to the ED with?chest pain and SOB x4 weeks, worse this morning. Patient states that symptoms began around when she began experiencing central chest pain, shortness of breath, palpitations, and increased lower leg edema. Also has experienced intermittent lightheadedness and dizziness. Patient's pain is nonradiating, substernal, and she describes it as feeling ?like someone punched me?. Waxes and wanes without any clear precipitating or alleviating factors, but still persistent the past 3-4 weeks. Also experiencing increased lower leg edema and swelling in her belly, endorses a 15-20 lb weight gain during this time. Patient went to Cardiology Clinic yesterday and received an echocardiogram which showed ejection fraction of 15-20%, worsened from EF of 30-35% on 08/01/2022. Patient was going to return to Cardiology office on Friday, however this morning patient's chest pain and shortness of breath worsened to where she felt like she could not breathe and thus presented to the ED for further evaluation and treatment. In the ED pt was afebrile but tachycardic up to 107, soft BP of 91/52, satting at 96% on 2 L NC. Labs were significant for sodium 133, BUN 43, creatinine 2.15, random glucose 342, initial troponin 8.4 with repeat flat at 12.9, BNP 151. INR therapeutic at 2.8. Respiratory panel pending. CXR showed increased bilateral pulmonary vascular markings likely congestion with no acute consolidation seen. EKG demonstrated AFib with RVR of 107 and chronic LBBB. Pt was treated with furosemide 80 mg IV x2 doses, and then placed on a Lasix drip. Pt will be admitted to the hospital for treatment and further evaluation of acute CHF exacerbation requiring lasix drip. Review of Systems 2 Review of Systems: Nonradiating central chest pain, palpitations Worsening shortness of breath Lower leg edema, abdominal swelling, 15-20 lb weight gain Intermittent lightheadedness and dizziness Chronic neuropathy of lower extremities Nausea, no vomiting Denies belly pain PMFSH Medical History History of uterine cancer Personal history of malignant neoplasm of other parts of uterus Persistent atrial fibrillation Tinea pedis History of cardioversion Cardiomyopathy Coronary arteriosclerosis Ischemic cardiomyopathy Colonoscopy refused Incomplete left bundle branch block (LBBB) Endometrial adenocarcinoma Post-menopausal bleeding Type 2 diabetes mellitus with hyperglycemia, with long-term current use of insulin Obesity due to excess calories Diabetes type 2, uncontrolled Vitamin D deficiency Mixed dyslipidemia Papanicolaou smear declined Mammogram declined Osteoarthritis, knee Diabetic neuropathy History of esophagitis Mild intermittent asthma Uterine fibroid History of basal cell carcinoma Osteonecrosis of right hip Hiatal hernia History of cholelithiasis Morbid obesity Essential hypertension Type 2 diabetes mellitus with hyperglycemia, without long-term current use of insulin Irritable bowel syndrome (IBS) Family History Father Myocardial infarction Cardiovascular disease Mother Diabetes mellitus Essential hypertension Daughter Anxiety disorder Mental health disorder Son Mental health disorder Surgical History S/P CLARE-BSO (total abdominal hysterectomy and bilateral salpingo-oophorectomy) S/P cardiac catheterization History of hysterectomy H/O hernia repair Hx of section History of hip surgery Hx of colonoscopy History of cholecystectomy Social History Household Members: Spouse and Children Housing: House Are you a primary healthcare associate to a significant other at home: No Do you presently have visiting nurse or other home services: No Alcohol intake: never Comment: pt refused bed/chair alarms Patient Tobacco Use Status: Never used Tobacco Smoked in Last 30 Days: No e-Cigarette/Vaping Use: Never Used Second Hand Smoke Exposure: No Use of substances other than those prescribed or required for medical reasons: No Currently Displaying Signs/Symptoms of Drug Intoxication Withdrawal: No Have you been hit, kicked, punched, or otherwise hurt by someone within the past year? If so, by whom?: No Do you feel safe in your current relationship?: Yes Is there a partner from a previous relationship who is making you feel unsafe now?: No Are you made to feel afraid or neglected: No Advance Directives: Yes Advance Directives on File: Yes Advance Directives Date on File: 04/08/22 Do you have thoughts of harming others: None Do you have a plan to hurt others: No Plan Recently lost weight without trying: No Eating poorly because of decreased appetite: Yes Nutrition Risks: No Nutritional Risk Patient : No : No Poor oral hygiene: No service: No Current occupational status: retired Current occupational exposures/hazards: No Cognitive needs: No Hearing needs: No Vision needs: Yes Meds Allergies Allergy/AdvReac Type Severity Reaction Status Date / Time red dye [Red Dye] Allergy Severe HIVES,THROAT Verified 03/01/23 06:10 CLOSES FROM RED FOOD DYE Active Medications: Current Medications Furosemide 200 mg/ Sodium (Chloride) 100 mls @ 5 mls/hr IVCONT .Q20H [facility] Home Medications Medication Instructions Recorded Confirmed Last Taken Type blood-glucose meter (FreeStyle 10/25/21 01/31/23 Unknown History Lite Meter kit) lancets 28 gauge (FreeStyle 10/25/21 01/31/23 Unknown History Lancets) pen needle, diabetic 31 gauge x 06/04/22 01/31/23 Unknown History 07/30 (BD Ultra-Fine Short Pen Needle) albuterol sulfate 90 mcg/actuation 180 mcg inhalation Q6H PRN 08/19/22 03/01/23 Unknown History aerosol inhaler Shortness Of Breath Or Wheezing nystatin 100,000 unit/gram topical 1 appl topical BID PRN Rash 11/25/22 03/01/23 Unknown History powder (Nystop) insulin lispro 100 unit/mL 12 unit subcut TIDAC 01/06/23 03/01/23 02/28/23 History subcutaneous pen losartan 25 mg tablet 25 mg PO DAILY 01/27/23 03/01/23 02/28/23 History bumetanide 2 mg tablet 2 mg PO Q2D@0900 03/01/23 03/01/23 02/27/23 History bumetanide 2 mg tablet 2 mg PO Q2D@2100 03/01/23 03/01/23 02/27/23 History bumetanide 2 mg tablet 3 mg PO Q2D@0900 03/01/23 03/01/23 02/28/23 History bumetanide 2 mg tablet 3 mg PO Q2D@2100 03/01/23 03/01/23 02/28/23 History dulaglutide 3 mg/0.5 mL 3 mg subcut FR@0900 03/01/23 03/01/23 02/28/23 History subcutaneous pen injector (Trulicity) warfarin 2.5 mg tablet 2.5 mg PO WE@1800 03/01/23 03/01/23 02/26/23 History warfarin 2.5 mg tablet 5 mg PO SUMOTUTHFRSA@1800 03/01/23 03/01/23 02/28/23 History Physical Exam 2 Vital Signs and Narrative: Vital Signs: Last Vital Signs Temp 97.9 F 03/01/23 10:40 Pulse 94 03/01/23 11:01 Resp 19 03/01/23 11:01 BP 91/52 L 03/01/23 11:01 Pulse Ox 96 03/01/23 11:01 O2 Del Method Room Air, Nasal C annula 03/01/23 11:01 O2 Flow Rate 2 03/01/23 11:01 Oxygen Flow Rate 2 03/01/23 06:10 BMI result Body Mass Index 41.3 Constitutional: Alert, in no acute distress. Mental Status: Oriented to person, place and time. Eyes: Pupils are equal, round, and reactive to light. Ear, Nose, and Throat: Oropharynx clear, mucous membranes moist. Ears and nose without deformities. Trachea midline. Respiratory: Clear to auscultation bilaterally. No wheezing, rales, or rhonchi. Cardiovascular: Irregularly irregular rhythm Gastrointestinal: Abdomen soft, non-tender, obese. Normal bowel sounds. Neurologic: Cranial nerves II-XII are grossly intact bilaterally. No focal neurological deficits. Moves all extremities spontaneously. Skin: Warm, dry. Musculoskeletal: No cyanosis or clubbing. Extremities: 2+ pitting bilateral lower leg edema. Psychiatric: Normal mood and affect. Results Labs 03/01/23 06:18 03/02/23 06:11 Labs: Laboratory Results - last 24 hr 03/01/23 03/01/23 06:18 07:45 MCV 92.9 MCH 30.8 MCHC 33.1 RDW 13.6 Plt Count 277 MPV 10.1 Absolute Nucleated RBC 0.000 Nucleated RBC % (auto) 0.0 PT 34.0 H INR 2.8 H APTT 43.7 H Anion Gap 17 Estim Creat Clear Calc 31.7 Estimated GFR 23 Random Glucose 342 H Calcium 9.3 Total Bilirubin 0.7 AST 16 ALT 15 Alkaline Phosphatase 96 B-Natriuretic Peptide 151 H Total Protein 7.6 Albumin 4.0 Imaging Radiologist's Impressions: Impressions Chest X-Ray 03/01/23 07:00 IMPRESSION: Increased bilateral pulmonary vascular markings likely congestion. No acute consolidation seen. . Assessment and Plan (1) Acute on chronic systolic heart failure: Status: Acute Plan Pt is a 68-year-old female with a PMH significant for?HFrEF with EF of 15-20%, tachycardia induced cardiomyopathy, HLD, persistent AFib on Coumadin s/p , CAD, CKD 3, IBS,hx of endometrial carcinoma, among others who presents to the ED with?chest pain and SOB x4 weeks, worse this morning. Pt will be admitted to the hospital for treatment and further evaluation of acute CHF exacerbation requiring lasix drip. Acute HFrEF exacerbation Pt with worsening SOB, chest pain, LLE, weight gain since Thanksgiving CXR with evidence of Patient has been aggressively diuresed in ED: Lasix 80 mg IV x2 doses Will be placed on a Lasix drip @ 10mg/hr Continue spironolactone Daily weights, low-salt diet Echocardiogram yesterday showed worseing EF of 15-20%, down from 30-35% Cardiology consult Monitor on telemetry Persistent Afib EKG with likely atrial flutter Cardiology consulted, plan on cardioversion on Friday if pt ready Continue amiodarone and coumadin Will hold carvedilol d/t soft BP and aggressive diuresis Follow INR Monitor on telemetry LUIS FELIPE Patient's creatinine 2.15, up from baseline around 1.50 Likely cardiorenal Treat as above with diuretics Hold losartan Monitor BMP Mild hyponatrememia Sodium 133 at time of presentation Pt being aggressively diuresed Follow BMP Atypical chest pain Likely secondary to CHF exacerbation EKG without significant ischemic changes, initial troponin 8.4 with repeat 12.9 Monitor on telemetry HTN BP a little soft, will be aggressively diuresed Will hold carvedilol, losartan HLD Continue statin Non insulin dependent diabetes type 2 SSI Diabetic diet Full Code Attending:?Dr. Fajardo DVT Prophylaxis: On warfarin Pt will require a hospitalization of at least two nights for treatment of?acute CHF exacerbation. Patient is currently on a Lasix drip and will need close monitoring of vitals and chemistries, as well as specialist consultation and likely cardioversion. Quality Stroke Does the patient have a stroke diagnosis?: No VTE Prior VTE?: No VTE Risk Level:: Medical - moderate - high VTE Device Contraindication: Treatment Not Indicated VTE Drug Contraindication: N/A - Med Ordered
[2023-03-01 12:16] LABS: Appearance Urine Clear; Color Urine Yellow; Glucose Urine UA Negative (Negative); Leukocyte Esterase Urine Moderate (2+) (Negative); Nitrite Urine Negative (Negative); PH 5.5 (5.0-9.0); UMIC TRIGGER UACC YES; Urine Blood Negative (Negative); Urine Ketones Negative (Negative); Urine Protein Negative (Neg-Trace)
[2023-03-01 12:20] LABS: Bacteria Urine 4+ (None Seen); Hyaline Casts Urine 0-2 /LPF (0-2); RBC Urine 0-2 /HPF (0-2); Squamous Epithelial Cell Urine 0-2 /HPF (0-2); UACC Culture Trigger YES
[2023-03-01] MEDS: Furosemide 200 MG in 0.9 % Sodium Chloride 80 ML IVCONT (12:23)
[2023-03-01] MEDS: Spironolactone 25 MG TABLET PO (14:07)
[2023-03-01] MEDS: Atorvastatin Calcium 40 MG TABLET PO (14:07)
[2023-03-01] MEDS: Amiodarone HCL 200 MG TABLET PO (14:51)
[2023-03-01 17:15] LABS: Glucose, Whole Blood 196 mg/dL (60-115)
[2023-03-01] MEDS: Warfarin Sodium 2.5 MG TABLET 5 MG PO (17:38)
--- NOTE | 2023-03-01 18:02 | PC.NURSE ---
re: late admin of lispro, meals have not arrived at this time POC [id number]
[2023-03-01] MEDS: Insulin Lispro 100 UNIT/ML 3 ML VIAL SUBCUT ×2 (18:50→21:27)
--- NOTE | 2023-03-01 19:12 | PC.NURSE ---
This RN took over pt assignment at 1900 Pt ca&ox4, no signs of distress, sitting at the side of the bed. Pts at bedside. Plan of care ongoing.
--- NOTE | 2023-03-01 20:50 | PC.NURSE ---
Report form completed- ZENAIDA An notified via [employer]- to be transported by wood cabinetmaker, Paulino
[2023-03-01 21:19] LABS: Glucose, Whole Blood 242 mg/dL (60-115)
[2023-03-01] MEDS: 0.9 % Sodium Chloride Flush 3 ML SYRINGE IVFLUSH (21:28)
[2023-03-02 03:33] VITALS: BP 115/71; PULSE 93; RESP 16; TEMP 36; O2SAT 96
[2023-03-02] MEDS: Furosemide 200 MG in 0.9 % Sodium Chloride 80 ML IVCONT ×2 (06:04→18:15)
[2023-03-02 06:36] LABS: INTERNATIONAL NORM RATIO 3.3 (0.9-1.1); Prothrombin Time 40.3 SEC (11.1-13.3)
[2023-03-02 06:49] LABS: Anion Gap 16 (12-20); Blood Urea Nitrogen 41 mg/dL (9-16); Calcium 8.9 mg/dL (8.4-10.2); Carbon Dioxide 27 mmol/L (22-29); Chloride 97 mmol/L (96-108); Creatinine Clr Calc Pharmacy 33.9; Estimated Glomerular Filt Rate 25; Glucose Random 263 mg/dL (60-115); Magnesium 1.8 mg/dL (1.6-2.6); Potassium 3.6 mmol/L (3.3-5.1); Sodium 136 mmol/L (135-145)
[2023-03-02 07:17] LABS: Glucose, Whole Blood 216 mg/dL (60-115)
[2023-03-02 08:00] VITALS: BP 111/68; PULSE 108; RESP 20; TEMP 36.2; O2SAT 94
[2023-03-02 08:29] LABS: B Type Natriuretic Peptide 146 pg/mL (<100)
[2023-03-02] MEDS: Potassium Chloride Packet 20 MEQ PACKET PO (08:40)
[2023-03-02] MEDS: Insulin Lispro 100 UNIT/ML 3 ML VIAL SUBCUT ×4 (08:40→20:08)
[2023-03-02] MEDS: Magnesium Oxide 400 MG TABLET PO ×2 (08:40→17:29)
[2023-03-02] MEDS: Spironolactone 25 MG TABLET PO (08:41)
[2023-03-02] MEDS: Atorvastatin Calcium 40 MG TABLET PO (08:41)
[2023-03-02] MEDS: Amiodarone HCL 200 MG TABLET PO (08:41)
[2023-03-02] MEDS: 0.9 % Sodium Chloride Flush 3 ML SYRINGE IVFLUSH ×2 (08:46→17:28)
[2023-03-02 09:23] LABS: Adenovirus PCR Not Detected (Not Detect.); Bordetella parapertussis PCR Not Detected (Not Detect.); Bordetella pertussis PCR Not Detected (Not Detect.); Chlamydia pneumoniae PCR Not Detected (Not Detect.); Coronavirus 229E PCR Not Detected (Not Detect.); Coronavirus HKU1 PCR Not Detected (Not Detect.); Coronavirus NL63 PCR Not Detected (Not Detect.); Coronavirus OC43 PCR Not Detected (Not Detect.); Human metapneumovirus PCR Not Detected (Not Detect.); Influenza A PCR Not Detected (Not Detect.); Influenza B PCR Not Detected (Not Detect.); Mycoplasma pneumoniae PCR Not Detected (Not Detect.); Parainfluenza 1 PCR Not Detected (Not Detect.); Parainfluenza 2 PCR Not Detected (Not Detect.); Parainfluenza 3 PCR Not Detected (Not Detect.); Parainfluenza 4 PCR Not Detected (Not Detect.); RSV PCR Not Detected (Not Detect.); Rhino/Enterovirus PCR Not Detected (Not Detect.)
[2023-03-02 10:23] LABS: SARS-CoV-2 PCR Not Detected (Not Detect.)
--- NOTE | 2023-03-02 10:56 | P.PNIM_ITS ---
Subjective Subjective Date of Service: 03/02/23 Interval History: chf execerbation Review of Systems patient sob similar to yesterday, has leg edema no fever or chills Physical Exam 2 Vital Signs: Vital Signs: Last Vital Signs Temp 97.2 F 03/02/23 08:00 Pulse 108 H 03/02/23 08:00 Resp 20 03/02/23 08:00 BP 111/68 03/02/23 08:00 Pulse Ox 94 03/02/23 08:00 O2 Del Method Room Air 03/02/23 08:00 O2 Flow Rate 1 03/02/23 03:33 Oxygen Flow Rate 2 03/01/23 06:10 BMI result Body Mass Index 41.3 Appearance: Alert.? Oriented X3.? cvs: rrr, [id number] res: clear to auscultation ,no rhonchii or wheezing abd: no rebound or guarding ,nt, bs present. ext pulses present , no cyanosis ,2+ edema . neuro: axo3 , nonfocal. Objective Data Active Medications Albuterol Sulfate (Albuterol Sulfate 90 Mcg 8 Gm Inhaler) 1 puff INHALE Q6H PRN PRN Reason: Shortness Of Breath Or Wheezing Amiodarone HCl (Amiodarone Hcl 200 Mg Tablet) 200 mg PO DAILY [facility] Last Admin: 03/02/23 08:41 Dose: 200 mg Documented By: KAE Atorvastatin Calcium (Atorvastatin Calcium 40 Mg Tablet) 40 mg PO DAILY [facility] Last Admin: 03/02/23 08:41 Dose: 40 mg Documented By: KAE Benzonatate (Benzonatate 100 Mg Capsule) 100 mg PO TID PRN PRN Reason: Cough Dextrose (Dextrose 50 % 25 Gm/50 Ml Syringe) 25 gm IVPUSH Q15M PRN; Protocol PRN Reason: per Hypoglycemia Standing Ord. Glucose (Glucose Gel 15 Gm Gel..Gram.) 15 gm PO Q15M PRN; Protocol PRN Reason: per Hypoglycemia Standing Ord. Furosemide 200 mg/ Sodium (Chloride) 100 mls @ 5 mls/hr IVCONT .Q20H [facility] Last Admin: 03/02/23 06:04 Dose: 10 mg/hr, 5 mls/hr Documented By: BRENDA Insulin Human Lispro (Insulin Lispro 100 Unit/Ml 3 Ml Vial) 0 unit SUBCUT QIDACHS [facility]; Protocol Last Admin: 03/02/23 08:40 Dose: 4 unit Documented By: KAE Magnesium Oxide (Magnesium Oxide 400 Mg Tablet) 400 mg PO BIDPC [facility] Last Admin: 03/02/23 08:40 Dose: 400 mg Documented By: KAE Melatonin (Melatonin 3 Mg Tablet) 6 mg PO BEDTIME PRN PRN Reason: Insomnia Ondansetron HCl (Ondansetron Hcl 4 Mg/2 Ml Vial) 4 mg IVPUSH Q8H PRN PRN Reason: Nausea and Vomiting Sodium Chloride (0.9 % Sodium Chloride Flush 3 Ml Syringe) 3 ml IVFLUSH QSHIFT [facility] Last Admin: 03/02/23 08:46 Dose: 3 ml Documented By: KAE Spironolactone (Spironolactone 25 Mg Tablet) 25 mg PO DAILY [facility]; Protocol Last Admin: 03/02/23 08:41 Dose: 25 mg Documented By: KAE Warfarin Sodium (Warfarin Sodium 2.5 Mg Tablet) 2.5 mg PO WE@1800 [facility] Warfarin Sodium (Warfarin Sodium 2.5 Mg Tablet) 5 mg PO SUMOTUTHFRSA@1800 [facility] Last Admin: 03/01/23 17:38 Dose: 5 mg Documented By: ALISSA Labs 03/01/23 06:18 03/02/23 06:11 Labs: Laboratory Results - last 24 hr 03/01/23 03/01/23 03/01/23 09:39 12:10 17:12 Hold Purple Top PT INR Anion Gap Estim Creat Clear Calc Estimated GFR POC Glucose 196 H Random Glucose Calcium Magnesium B-Natriuretic Peptide Urine Color Yellow Urine Appearance Clear Urine pH 5.5 Ur Specific [place] 1.010 Urine Protein Negative Urine Glucose (UA) Negative Urine Ketones Negative Urine Blood Negative Urine Nitrite Negative Ur Leukocyte Esterase Moderate (2+) H Urine RBC 0-2 Urine WBC 11-20 H Ur Squamous Epith Cells 0-2 Urine Bacteria 4+ Hyaline Casts 0-2 Respiratory Panel Esparza See Note Adenovirus (Rapid PCR) Not Detected B.pert (TEM-PCR) Not Detected B.parapertussis DNA PCR Not Detected C. pneumoniae DNA (PCR) Not Detected Coronavirus OC43 (PCR) Not Detected Coronavirus HKU1 (PCR) Not Detected Coronavirus 229E (PCR) Not Detected Coronavirus NL63 (PCR) Not Detected Human Metapneumovir PCR Not Detected Influenza A (RT-PCR) Not Detected Influenza B (RT-PCR) Not Detected M. pneumoniae (PCR) Not Detected Parainfluenza 1 (PCR) Not Detected Parainfluenza 2 (PCR) Not Detected Parainfluenza 3 (PCR) Not Detected Parainfluenza 4 (PCR) Not Detected RSV (PCR) Not Detected Entero/Rhino (PCR) Not Detected SARS-CoV-2 RNA (RT-PCR) Not Detected 03/01/23 03/02/23 03/02/23 21:16 06:11 07:07 Hold Purple Top SEE NOTE PT 40.3 H INR 3.3 H Anion Gap 16 Estim Creat Clear Calc 33.9 Estimated GFR 25 POC Glucose 242 H 216 H Random Glucose 263 H Calcium 8.9 Magnesium 1.8 B-Natriuretic Peptide 146 H Urine Color Urine Appearance Urine pH Ur Specific [place] Urine Protein Urine Glucose (UA) Urine Ketones Urine Blood Urine Nitrite Ur Leukocyte Esterase Urine RBC Urine WBC Ur Squamous Epith Cells Urine Bacteria Hyaline Casts Respiratory Panel Esparza Adenovirus (Rapid PCR) B.pert (TEM-PCR) B.parapertussis DNA PCR C. pneumoniae DNA (PCR) Coronavirus OC43 (PCR) Coronavirus HKU1 (PCR) Coronavirus 229E (PCR) Coronavirus NL63 (PCR) Human Metapneumovir PCR Influenza A (RT-PCR) Influenza B (RT-PCR) M. pneumoniae (PCR) Parainfluenza 1 (PCR) Parainfluenza 2 (PCR) Parainfluenza 3 (PCR) Parainfluenza 4 (PCR) RSV (PCR) Entero/Rhino (PCR) SARS-CoV-2 RNA (RT-PCR) Assessment and Plan (1) Acute on chronic systolic heart failure: Status: Acute Plan 68-year-old female with a PMH significant for?HFrEF with EF of 15-20%, tachycardia induced cardiomyopathy, HLD, persistent AFib on Coumadin s/p , CAD, CKD 3, IBS,hx of endometrial carcinoma, among others who presents to the ED with?chest pain and SOB x4 weeks, worse this morning. Pt will be admitted to the hospital for treatment and further evaluation of acute CHF exacerbation requiring lasix drip. Acute HFrEF exacerbation Pt with worsening SOB, chest pain, LLE, weight gain since Thanksgiving CXR with evidence of Increased bilateral pulmonary vascular markings likely congestion. sob , has 2+ leg edema Echocardiogram 03/02/23:showed worseing EF of 15-20%, down from 30-35%. plan: i/o- d/w patient and staff need to moniter closely Daily weights, low-salt diet continue Lasix drip @ 10mg/hr and spironolactone. cardiology eval noted -continue above ,possible need cardioversion on friday. Persistent Afib hr rate controlled EKG with likely atrial flutter Cardiology consulted, plan on cardioversion on Friday if pt ready Continue amiodarone and coumadin adjusted carvedilol to 3.125 mg -d/t soft BP and aggressive diuresis INR supratherapeutic ,warfarin adjusted Monitor on telemetry LUIS FELIPE Patient's creatinine 2.15, up from baseline around 1.50 Likely cardiorenal, cr improving 2 Treat as above with diuretics Hold losartan Monitor BMP Mild hyponatrememia Sodium 133 at time of presentation due to fluid overload improved with diuresis. Follow BMP Atypical chest pain:resolved. Likely secondary to CHF exacerbation EKG without significant ischemic changes, initial troponin flat. Monitor on telemetry HTN BP a little soft, will be aggressively diuresed Will hold carvedilol, losartan HLD Continue statin Non insulin dependent diabetes type 2 SSI Diabetic diet Full Code DVT Prophylaxis: On warfarin ongoing hospitalization need: patient with multiple issues afib and renetta with chf, boderline bp as well luis felipe on ckd -treatment of?acute CHF exacerbation. Patient is currently on a Lasix drip and will need close monitoring of vitals and chemistries, as well as specialist consultation and possible need cardioversion. Quality Stroke Does the patient have a stroke diagnosis?: No VTE Prior VTE?: No VTE Risk Level:: Medical - moderate - high VTE Device Contraindication: Treatment Not Indicated VTE Drug Contraindication: N/A - Med Ordered
--- NOTE | 2023-03-02 11:16 | MHC.CM.PN ---
IMM 03/02/23, EMR REVIEWED, PT ADMITTED W/CHF EXAC, CM MET W/PT WHO REPORTS SHE IS INDEP W/ALL CARE, HAS A CANE WHICH SHE ONLY USES FOR OUTINGS AND GRAB BARS IN [place], PT DENIES HOME SERVICES AND DOES NOT FEEL SHE WILL NEED ANY SERVICES ON DC HOWEVER IS OPEN TO [facility]. PCP/HCP ON FILE VERIFIED AND PT COVID VACC X3
[2023-03-02 11:53] LABS: Glucose, Whole Blood 259 mg/dL (60-115)
[2023-03-02 12:00] VITALS: BP 110/81; PULSE 103; RESP 20; TEMP 36.1; O2SAT 94
--- NOTE | 2023-03-02 13:28 | PM.PNCARD ---
Subjective Subjective Date of Service: 03/02/23 Interval history: Seen examined at bedside. Feeling much better. On Lasix drip. Physical Exam Vital Signs: Last Vital Signs Temp 97.0 F 03/02/23 12:00 Pulse 103 H 03/02/23 12:00 Resp 20 03/02/23 12:00 BP 110/81 03/02/23 12:00 Pulse Ox 94 03/02/23 12:00 O2 Del Method Room Air 03/02/23 12:00 O2 Flow Rate 1 03/02/23 03:33 Oxygen Flow Rate 2 03/01/23 06:10 BMI result Body Mass Index 41.3 GENERAL APPEARANCE: in no acute distress, on supplemental oxygen NECK: no carotid bruit, + jugular venous distention. SKIN: no suspicious lesions, warm and dry. HEART: no murmurs, irregular rate and rhythm. LUNGS: clear to auscultation bilaterally. ABDOMEN: soft, nontender. EXTREMITIES: +1 edema. PERIPHERAL PULSES: equal. NEUROLOGIC: No gross deficits, AAO X 3 Objective Labs and Meds 03/01/23 06:18 03/02/23 06:11 Lab results: Laboratory Results - last 24 hr 03/01/23 03/01/23 03/01/23 09:39 17:12 21:16 Hold Purple Top PT INR Sodium Potassium Chloride Carbon Dioxide Anion Gap BUN Creatinine Estim Creat Clear Calc Estimated GFR POC Glucose 196 H 242 H Random Glucose Calcium Magnesium B-Natriuretic Peptide Respiratory Panel Esparza See Note Adenovirus (Rapid PCR) Not Detected B.pert (TEM-PCR) Not Detected B.parapertussis DNA PCR Not Detected C. pneumoniae DNA (PCR) Not Detected Coronavirus OC43 (PCR) Not Detected Coronavirus HKU1 (PCR) Not Detected Coronavirus 229E (PCR) Not Detected Coronavirus NL63 (PCR) Not Detected Human Metapneumovir PCR Not Detected Influenza A (RT-PCR) Not Detected Influenza B (RT-PCR) Not Detected M. pneumoniae (PCR) Not Detected Parainfluenza 1 (PCR) Not Detected Parainfluenza 2 (PCR) Not Detected Parainfluenza 3 (PCR) Not Detected Parainfluenza 4 (PCR) Not Detected RSV (PCR) Not Detected Entero/Rhino (PCR) Not Detected SARS-CoV-2 RNA (RT-PCR) Not Detected 03/02/23 03/02/2303/02/23 06:11 07:07 11:49 Hold Purple Top SEE NOTE PT 40.3 H INR 3.3 H Sodium 136 Potassium 3.6 D Chloride 97 Carbon Dioxide 27 Anion Gap 16 BUN 41 H Creatinine 2.01 H Estim Creat Clear Calc 33.9 Estimated GFR 25 POC Glucose 216 H 259 H Random Glucose 263 H Calcium 8.9 Magnesium 1.8 B-Natriuretic Peptide 146 H Respiratory Panel Esparza Adenovirus (Rapid PCR) B.pert (TEM-PCR) B.parapertussis DNA PCR C. pneumoniae DNA (PCR) Coronavirus OC43 (PCR) Coronavirus HKU1 (PCR) Coronavirus 229E (PCR) Coronavirus NL63 (PCR) Human Metapneumovir PCR Influenza A (RT-PCR) Influenza B (RT-PCR) M. pneumoniae (PCR) Parainfluenza 1 (PCR) Parainfluenza 2 (PCR) Parainfluenza 3 (PCR) Parainfluenza 4 (PCR) RSV (PCR) Entero/Rhino (PCR) SARS-CoV-2 RNA (RT-PCR) Progress Note: A&P Assessment and plan (1) Acute on chronic systolic heart failure: Status: Acute (2) Left bundle branch block: Status: Acute (3) Atrial flutter: Status: Acute Plan Pleasant 68-year-old female with congestive heart failure. She developed atrial flutter and went into elective heart failure again. EF has dropped to severe dysfunction. On Lasix drip. Continue for now. Unable to lay flat. Eventual plan will be to do a cardioversion on her. Continue Coumadin with INR target 2-3. Will be referred as outpatient to electrophysiology for atrial flutter and AFib ablation. Thank you for allowing me to participate in the care of your patient. Please feel free to contact me if you have any questions. Time Spent With Patient Time: Total time managing care of this patient today ____ minutes. Progress Note: Quality Stroke Does the patient have a stroke diagnosis?: No Procedures Date of Service Date of Service: 03/02/23
[2023-03-02 15:50] VITALS: BP 131/75; PULSE 97; RESP 16; TEMP 36.6; O2SAT 94
[2023-03-02 17:04] LABS: Glucose, Whole Blood 281 mg/dL (60-115)
[2023-03-02] MEDS: Warfarin Sodium 3 MG TABLET PO (17:57)
[2023-03-02 19:38] VITALS: BP 117/71; PULSE 104; RESP 20; TEMP 35.9; O2SAT 95
[2023-03-02 19:59] LABS: Glucose, Whole Blood 304 mg/dL (60-115)
[2023-03-02] MEDS: carvediloL 3.125 MG TABLET PO (20:07)
[2023-03-02 23:42] VITALS: BP 135/90; PULSE 107; RESP 19; TEMP 35.8; O2SAT 96
[2023-03-03 04:00] VITALS: BP 119/78; PULSE 102; RESP 19; TEMP 36.8; O2SAT 95
[2023-03-03 06:00] VITALS: BMI 38.8
[2023-03-03 07:40] VITALS: BP 91/60; PULSE 100; RESP 17; TEMP 36.3; O2SAT 93
[2023-03-03 07:57] LABS: Anion Gap 17 (12-20); Blood Urea Nitrogen 40 mg/dL (9-16); Calcium 8.9 mg/dL (8.4-10.2); Carbon Dioxide 26 mmol/L (22-29); Chloride 96 mmol/L (96-108); Creatinine Clr Calc Pharmacy 34.9; Estimated Glomerular Filt Rate 27; Glucose Random 194 mg/dL (60-115); Potassium 3.5 mmol/L (3.3-5.1); Sodium 135 mmol/L (135-145)
[2023-03-03 07:59] LABS: Anion Gap 16 (12-20); Blood Urea Nitrogen 42 mg/dL (9-16); Calcium 8.9 mg/dL (8.4-10.2); Carbon Dioxide 27 mmol/L (22-29); Chloride 96 mmol/L (96-108); Creatinine Clr Calc Pharmacy 34.7; Estimated Glomerular Filt Rate 26; Glucose Random 196 mg/dL (60-115); Magnesium 1.9 mg/dL (1.6-2.6); Potassium 3.5 mmol/L (3.3-5.1); Sodium 135 mmol/L (135-145)
[2023-03-03 08:02] LABS: B Type Natriuretic Peptide 111 pg/mL (<100)
[2023-03-03 08:07] LABS: Glucose, Whole Blood 184 mg/dL (60-115)
[2023-03-03] MEDS: Amiodarone HCL 200 MG TABLET PO (08:20)
[2023-03-03] MEDS: Magnesium Oxide 400 MG TABLET PO ×2 (08:21→17:41)
[2023-03-03] MEDS: Atorvastatin Calcium 40 MG TABLET PO (08:22)
[2023-03-03] MEDS: carvediloL 3.125 MG TABLET PO ×2 (08:22→20:58)
[2023-03-03] MEDS: 0.9 % Sodium Chloride Flush 3 ML SYRINGE IVFLUSH (08:22)
[2023-03-03] MEDS: Insulin Lispro 100 UNIT/ML 3 ML VIAL SUBCUT ×4 (08:29→20:56)
[2023-03-03 11:15] LABS: Glucose, Whole Blood 227 mg/dL (60-115)
[2023-03-03 11:32] VITALS: BP 109/64; PULSE 92; RESP 18; TEMP 36.4; O2SAT 93
[2023-03-03 11:39] LABS: INTERNATIONAL NORM RATIO 2.6 (0.9-1.1); Prothrombin Time 32.1 SEC (11.1-13.3)
--- NOTE | 2023-03-03 11:40 | MHC.CM.PN ---
EMR reviewed and per MD rounds, pt is not medically cleared for D/C due to IV diuretics, cardio consulting, and may need cardioversion. CM will continue to follow.
--- NOTE | 2023-03-03 12:15 | PM.PNCARD ---
Subjective Subjective Date of Service: 03/03/23 Principal diagnosis: Atrial flutter, heart failure with reduced ejection fraction Interval history: Patient has diuresed about 2.8 L since yesterday. Says her breathing is better in abdominal distension is better. Still has some leg edema. Blood pressure is on the softer side. Heart rate remains controlled. Echocardiogram shows LVEF of 15-20%. Her INR the last month have been all above 2 Review of Systems Constitutional: Reports no additional constitutional complaints Eyes: Reports no additional eye complaints Cardiovascular: Reports Abdominal Distension, Reports leg edema, Denies palpitations and Reports dyspnea Respiratory: Reports no additional respiratory complaints and Reports dyspnea Reports system reviewed and no additional complaints, except as documented Endocrine: Denies palpitations Physical Exam Vital Signs: Last Vital Signs Temp 97.5 F 03/03/23 11:32 Pulse 92 03/03/23 11:32 Resp 18 03/03/23 11:32 BP 109/64 03/03/23 11:32 Pulse Ox 93 03/03/23 11:32 O2 Del Method Room Air 03/03/23 11:32 O2 Flow Rate 1 03/02/23 03:33 Oxygen Flow Rate 2 03/01/23 06:10 BMI result Body Mass Index 38.8 Const General: cooperative, alert and awake Nutritional Appearance: obese Orientation/consciousness: patient oriented x3 Neck Neck: Yes trachea midline, Yes supple and Yes JVD Resp Effort & Inspection: decreased respiratory effort Cardio Jugular venous distension: JVD Rhythm: abnormal rhythm irregularly irregular Heart sounds: S1 normal heart sound present, S2 normal heart sound present, no click, no gallops, no murmurs and no rubs GI Inspection: Yes distended Auscultation: normal bowel sounds Skin General skin exam: no rashes or lesions noted Neuro General: patient oriented x3 and no focal motor deficits Extrem General: No clubbing, No cyanosis and Yes edema Objective Labs and Meds 03/01/23 06:18 03/03/23 07:18 Lab results: Laboratory Results - last 24 hr 03/01/23 03/02/23 03/02/23 06:25 16:55 19:47 Sodium Potassium Chloride Carbon Dioxide Anion Gap BUN Creatinine Estim Creat Clear Calc Estimated GFR POC Glucose 281 H 304 H Random Glucose Calcium Magnesium B-Natriuretic Peptide Respiratory Panel Esparza Cancelled Adenovirus (Rapid PCR) Cancelled B.pert (TEM-PCR) Cancelled B.parapertussis DNA PCR Cancelled C. pneumoniae DNA (PCR) Cancelled Coronavirus OC43 (PCR) Cancelled Coronavirus HKU1 (PCR) Cancelled Coronavirus 229E (PCR) Cancelled Coronavirus NL63 (PCR) Cancelled Human Metapneumovir PCR Cancelled Influenza A (RT-PCR) Cancelled Influenza B (RT-PCR) Cancelled M. pneumoniae (PCR) Cancelled Parainfluenza 1 (PCR) Cancelled Parainfluenza 2 (PCR) Cancelled Parainfluenza 3 (PCR) Cancelled Parainfluenza 4 (PCR) Cancelled RSV (PCR) Cancelled Entero/Rhino (PCR) Cancelled SARS-CoV-2 RNA (RT-PCR) Cancelled 03/03/23 03/03/23 03/03/23 07:18 07:18 07:18 Sodium 135 135 Potassium 3.5 3.5 Chloride 96 Carbon Dioxide Anion Gap BUN Creatinine Estim Creat Clear Calc Estimated GFR POC Glucose Random Glucose Calcium Magnesium B-Natriuretic Peptide Respiratory Panel Esparza Adenovirus (Rapid PCR) B.pert (TEM-PCR) B.parapertussis DNA PCR C. pneumoniae DNA (PCR) Coronavirus OC43 (PCR) Coronavirus HKU1 (PCR) Coronavirus 229E (PCR) Coronavirus NL63 (PCR) Human Metapneumovir PCR Influenza A (RT-PCR) Influenza B (RT-PCR) M. pneumoniae (PCR) Parainfluenza 1 (PCR) Parainfluenza 2 (PCR) Parainfluenza 3 (PCR) Parainfluenza 4 (PCR) RSV (PCR) Entero/Rhino (PCR) SARS-CoV-2 RNA (RT-PCR) 03/03/23 03/03/23 03/03/23 07:18 07:18 07:18 Sodium Potassium Chloride 96 Carbon Dioxide 27 26 Anion Gap 16 17 BUN 42 H Creatinine Estim Creat Clear Calc Estimated GFR POC Glucose Random Glucose Calcium Magnesium B-Natriuretic Peptide Respiratory Panel Esparza Adenovirus (Rapid PCR) B.pert (TEM-PCR) B.parapertussis DNA PCR C. pneumoniae DNA (PCR) Coronavirus OC43 (PCR) Coronavirus HKU1 (PCR) Coronavirus 229E (PCR) Coronavirus NL63 (PCR) Human Metapneumovir PCR Influenza A (RT-PCR) Influenza B (RT-PCR) M. pneumoniae (PCR) Parainfluenza 1 (PCR) Parainfluenza 2 (PCR) Parainfluenza 3 (PCR) Parainfluenza 4 (PCR) RSV (PCR) Entero/Rhino (PCR) SARS-CoV-2 RNA (RT-PCR) 03/03/23 03/03/23 03/03/23 07:18 07:18 07:18 Sodium Potassium Chloride Carbon Dioxide Anion Gap BUN 40 H Creatinine 1.90 H 1.89 H Estim Creat Clear Calc 34.7 34.9 Estimated GFR 26 POC Glucose Random Glucose Calcium Magnesium B-Natriuretic Peptide Respiratory Panel Esparza Adenovirus (Rapid PCR) B.pert (TEM-PCR) B.parapertussis DNA PCR C. pneumoniae DNA (PCR) Coronavirus OC43 (PCR) Coronavirus HKU1 (PCR) Coronavirus 229E (PCR) Coronavirus NL63 (PCR) Human Metapneumovir PCR Influenza A (RT-PCR) Influenza B (RT-PCR) M. pneumoniae (PCR) Parainfluenza 1 (PCR) Parainfluenza 2 (PCR) Parainfluenza 3 (PCR) Parainfluenza 4 (PCR) RSV (PCR) Entero/Rhino (PCR) SARS-CoV-2 RNA (RT-PCR) 03/03/23 03/03/23 03/03/23 07:18 07:18 07:18 Sodium Potassium Chloride Carbon Dioxide Anion Gap BUN Creatinine Estim Creat Clear Calc Estimated GFR 27 POC Glucose Random Glucose 196 H 194 H Calcium 8.9 8.9 Magnesium 1.9 B-Natriuretic Peptide 111 H Respiratory Panel Esparza Adenovirus (Rapid PCR) B.pert (TEM-PCR) B.parapertussis DNA PCR C. pneumoniae DNA (PCR) Coronavirus OC43 (PCR) Coronavirus HKU1 (PCR) Coronavirus 229E (PCR) Coronavirus NL63 (PCR) Human Metapneumovir PCR Influenza A (RT-PCR) Influenza B (RT-PCR) M. pneumoniae (PCR) Parainfluenza 1 (PCR) Parainfluenza 2 (PCR) Parainfluenza 3 (PCR) Parainfluenza 4 (PCR) RSV (PCR) Entero/Rhino (PCR) SARS-CoV-2 RNA (RT-PCR) 03/03/23 03/03/23 07:58 11:11 Sodium Potassium Chloride Carbon Dioxide Anion Gap BUN Creatinine Estim Creat Clear Calc Estimated GFR POC Glucose 184 H 227 H Random Glucose Calcium Magnesium B-Natriuretic Peptide Respiratory Panel Esparza Adenovirus (Rapid PCR) B.pert (TEM-PCR) B.parapertussis DNA PCR C. pneumoniae DNA (PCR) Coronavirus OC43 (PCR) Coronavirus HKU1 (PCR) Coronavirus 229E (PCR) Coronavirus NL63 (PCR) Human Metapneumovir PCR Influenza A (RT-PCR) Influenza B (RT-PCR) M. pneumoniae (PCR) Parainfluenza 1 (PCR) Parainfluenza 2 (PCR) Parainfluenza 3 (PCR) Parainfluenza 4 (PCR) RSV (PCR) Entero/Rhino (PCR) SARS-CoV-2 RNA (RT-PCR) Progress Note: A&P Assessment and plan (1) Acute on chronic systolic heart failure: Status: Acute Assessment and Plan: Acute exacerbation of heart failure with reduced ejection fraction secondary to reduction LV ejection fraction most likely related to recurrent atrial flutter with tachycardia mediated cardiomyopathy. The past heart rate did improve with maintenance of rhythm. Although she is in recurrent atrial flutter at this point time related to structural abnormality in the heart despite being on amiodarone therapy. Discussed with her about difficulty in managing rhythm and managing heart failure syndrome. Continue amiodarone therapy. Continue carvedilol therapy. Blood pressure is on lower side and cannot [place] other forms of neurohormonal modulation at this point in time. Continue IV diuresis with Lasix drip. Strict intake and output chart needs to be pursued. Once a fluid status is better will proceed with synchronized cardioversion see below. Continue monitor renal function as well as BNP. Continue CPAP therapy. (2) Atrial flutter: Status: Acute Assessment and Plan: Recurrent atrial flutter while on amiodarone therapy. This has led to recurrent heart failure syndrome with cardiomyopathy. Will require rhythm control approach. Her INRs have been therapeutic. She is maintained on amiodarone therapy which is chronic. If his fluid status is better by tomorrow will pursue synchronized cardioversion to reestablish AV synchrony. However given her recurrent atrial arrhythmias on amiodarone therapy high risk of recurrence. She will require EPS consultation to address ablation. Continue CPAP therapy. Continue full oral anticoagulation, currently on warfarin therapy. We discussed the risks, benefits, alternatives to synchronized cardioversion. INRs have been therapeutic. Will follow up with you Time Spent With Patient Time: Total time managing care of this patient today ____ minutes. Progress Note: Quality Stroke Does the patient have a stroke diagnosis?: No Procedures Date of Service Date of Service: 03/03/23
[2023-03-03] MEDS: Spironolactone 25 MG TABLET PO (13:31)
--- NOTE | 2023-03-03 14:45 | P.PNIM_ITS ---
Subjective Subjective Date of Service: 03/03/23 Interval History: chf execerbation Review of Systems patient sob similar to yesterday, has leg edema no fever or chills Physical Exam 2 Vital Signs: Vital Signs: Last Vital Signs Temp 97.5 F 03/03/23 11:32 Pulse 92 03/03/23 11:32 Resp 18 03/03/23 11:32 BP 109/64 03/03/23 11:32 Pulse Ox 93 03/03/23 11:32 O2 Del Method Room Air 03/03/23 11:32 O2 Flow Rate 1 03/02/23 03:33 Oxygen Flow Rate 2 03/01/23 06:10 BMI result Body Mass Index 38.8 Appearance: Alert.? Oriented X3.? cvs: rrr, [id number] res: clear to auscultation ,no rhonchii or wheezing abd: no rebound or guarding ,nt, bs present. ext pulses present , no cyanosis ,2+ edema . neuro: axo3 , nonfocal. Objective Data Active Medications Albuterol Sulfate (Albuterol Sulfate 90 Mcg 8 Gm Inhaler) 1 puff INHALE Q6H PRN PRN Reason: Shortness Of Breath Or Wheezing Amiodarone HCl (Amiodarone Hcl 200 Mg Tablet) 200 mg PO DAILY [facility] Last Admin: 03/03/23 08:20 Dose: 200 mg Documented By: ROGER Atorvastatin Calcium (Atorvastatin Calcium 40 Mg Tablet) 40 mg PO DAILY [facility] Last Admin: 03/03/23 08:22 Dose: 40 mg Documented By: ROGER Benzocaine (Throat Lozenge, Medicated Lozenge) 1 lozenge MUCOUS MEM Q2H PRN PRN Reason: Sore Throat Benzonatate (Benzonatate 100 Mg Capsule) 100 mg PO TID PRN PRN Reason: Cough Carvedilol (Carvedilol 3.125 Mg Tablet) 3.125 mg PO BID [facility]; Protocol Last Admin: 03/03/23 08:22 Dose: 3.125 mg Documented By: ROGER Dextrose (Dextrose 50 % 25 Gm/50 Ml Syringe) 25 gm IVPUSH Q15M PRN; Protocol PRN Reason: per Hypoglycemia Standing Ord. Glucose (Glucose Gel 15 Gm Gel..Gram.) 15 gm PO Q15M PRN; Protocol PRN Reason: per Hypoglycemia Standing Ord. Hydrocortisone (Hydrocortisone 1 % Cream 28.35 Gm Tube) 1 appl TOPICAL BID PRN; Protocol PRN Reason: Itching Furosemide 200 mg/ Sodium (Chloride) 100 mls @ 5 mls/hr IVCONT .Q20H [facility] Last Admin: 03/02/23 18:15 Dose: 10 mg/hr, 5 mls/hr Documented By: RAZ Insulin Human Lispro (Insulin Lispro 100 Unit/Ml 3 Ml Vial) 0 unit SUBCUT QIDACHS [facility]; Protocol Last Admin: 03/03/23 13:31 Dose: 4 unit Documented By: ROGER Magnesium Oxide (Magnesium Oxide 400 Mg Tablet) 400 mg PO BIDPC [facility] Last Admin: 03/03/23 08:21 Dose: 400 mg Documented By: ROGER Melatonin (Melatonin 3 Mg Tablet) 6 mg PO BEDTIME PRN PRN Reason: Insomnia Ondansetron HCl (Ondansetron Hcl 4 Mg/2 Ml Vial) 4 mg IVPUSH Q8H PRN PRN Reason: Nausea and Vomiting Sodium Chloride (0.9 % Sodium Chloride Flush 3 Ml Syringe) 3 ml IVFLUSH QSHIFT [facility] Last Admin: 03/03/23 08:22 Dose: 3 ml Documented By: ROGER Spironolactone (Spironolactone 25 Mg Tablet) 25 mg PO DAILY [facility]; Protocol Last Admin: 03/03/23 13:31 Dose: 25 mg Documented By: ROGER Warfarin Sodium (Warfarin Sodium 3 Mg Tablet) 3 mg PO DAILY@1800 [facility] Last Admin: 03/02/23 17:57 Dose: 3 mg Documented By: DANILOMAT Labs 03/01/23 06:18 03/03/23 07:18 Labs: Laboratory Results - last 24 hr 03/02/23 03/02/23 03/03/23 16:55 19:47 07:18 PT INR Anion Gap 16 Estim Creat Clear Calc Estimated GFR POC Glucose 281 H 304 H Random Glucose Calcium Magnesium B-Natriuretic Peptide 03/03/23 03/03/23 03/03/23 07:18 07:18 07:18 PT INR Anion Gap 17 Estim Creat Clear Calc 34.7 34.9 Estimated GFR 26 27 POC Glucose Random Glucose 196 H Calcium Magnesium B-Natriuretic Peptide 12/18/23 12/18/23 12/18/23 07:18 07:18 07:58 PT INR Anion Gap Estim Creat Clear Calc Estimated GFR POC Glucose 184 H Random Glucose 194 H Calcium 8.9 8.9 Magnesium 1.9 B-Natriuretic Peptide 111 H 03/03/23 03/03/23 11:11 11:16 PT 32.1 H D INR 2.6 H Anion Gap Estim Creat Clear Calc Estimated GFR POC Glucose 227 H Random Glucose Calcium Magnesium B-Natriuretic Peptide Microbiology Microbiology Results: Microbiology 03/01/23 Unknown Urine Culture - Preliminary Urine clean catch - Clean Catch Midstream Gram negative bin Assessment and Plan (1) Acute on chronic systolic heart failure: Status: Acute Plan 68-year-old female with a PMH significant for?HFrEF with EF of 15-20%, tachycardia induced cardiomyopathy, HLD, persistent AFib on Coumadin s/p , CAD, CKD 3, IBS,hx of endometrial carcinoma, among others who presents to the ED with?chest pain and SOB x4 weeks, worse this morning. Pt will be admitted to the hospital for treatment and further evaluation of acute CHF exacerbation requiring lasix drip. Acute HFrEF exacerbation Pt with worsening SOB, chest pain, LLE, weight gain since Thanksgiving CXR with evidence of Increased bilateral pulmonary vascular markings likely congestion. sob , has 2+ leg edema Echocardiogram 03/02/23:showed worseing EF of 15-20%, down from 30-35%. plan: i/o- she is neg3.1 liter Daily weights, low-salt diet continue Lasix drip @ 10mg/hr and spironolactone. cardiology eval noted -continue above ,possible need cardioversion on friday. Persistent Afib hr rate controlled EKG with likely atrial flutter Cardiology consulted, plan on cardioversion on Friday if pt ready Continue amiodarone and coumadin adjusted carvedilol to 3.125 mg -d/t soft BP and aggressive diuresis INR therapeutic . Monitor on telemetry LUIS FELIPE Patient's creatinine 2.15, up from baseline around 1.50 Likely cardiorenal, cr improving 1.9 Treat as above with diuretics Hold losartan Monitor BMP Mild hyponatrememia Sodium 133 at time of presentation due to fluid overload improved with diuresis. Follow BMP Atypical chest pain:resolved. Likely secondary to CHF exacerbation EKG without significant ischemic changes, initial troponin flat. Monitor on telemetry HTN BP a little soft, will be aggressively diuresed Will hold carvedilol, losartan HLD Continue statin Non insulin dependent diabetes type 2 SSI Diabetic diet Full Code DVT Prophylaxis: On warfarin ongoing hospitalization need: patient with multiple issues afib and renetta with chf, boderline bp as well luis felipe on ckd -treatment of?acute CHF exacerbation. Patient is currently on a Lasix drip and will need close monitoring of vitals and chemistries, as well as specialist consultation and possible need cardioversion. Quality Stroke Does the patient have a stroke diagnosis?: No VTE Prior VTE?: No VTE Risk Level:: Medical - moderate - high VTE Device Contraindication: Treatment Not Indicated VTE Drug Contraindication: N/A - Med Ordered
[2023-03-03 15:30] VITALS: BP 109/65; PULSE 92; RESP 19; TEMP 36.8; O2SAT 92
[2023-03-03] MEDS: Furosemide 200 MG in 0.9 % Sodium Chloride 80 ML IVCONT (15:42)
[2023-03-03 16:52] LABS: Glucose, Whole Blood 277 mg/dL (60-115)
--- NOTE | 2023-03-03 17:00 | P.CDIM_ITS ---
PROVIDER RESPONSE TEXT: To clarify, the appropriate diagnosis supported by the clinical indicators: Diabetes mellitus Type 2 with hyperglycemia QUERY TEXT: PHYSICIAN'S DOCUMENTATION REQUEST Date of Query: 03/03/2023 09:26 AM EST Patient Name: July Dorantes Admit Date: 03/01/2023 Dear Facundo Fajardo, A review of the medical record indicates additional documentation may be needed. Please review below and update the documentation accordingly. Clinical Indicators: Labs: POC Glucose 304 H Insulin Please clarify the following regarding the Complications of Diabetes Mellitus (DM): Diabetes mellitus Type 2 with hyperglycemia Other Other (explain) Clinically unable to determine (explain) Thank you, Sera Cramer, CCS, CDIS Use of terms such as suspected, likely, concern for, or probable (associated with a specific diagnosi s that is being evaluated, monitored, or treated as if it exists) are acceptable and can be coded in the inpatient se tting, when documented at the time of discharge. Please use your independent medical judgment in providing your response. THIS QUERY IS PART OF THE PERMANENT MEDICAL RECORD
[2023-03-03] MEDS: Warfarin Sodium 2.5 MG TABLET PO ×2 (17:42→18:40)
[2023-03-03 19:30] VITALS: BP 117/62; PULSE 102; RESP 19; TEMP 36.7; O2SAT 95
[2023-03-03 20:55] LABS: Glucose, Whole Blood 289 mg/dL (60-115)
[2023-03-04] VITALS (14 sets, daily range): BP systolic 101–137; BP diastolic 55–88; PULSE 67–111; RESP 16–20; TEMP 36.1–36.9; O2SAT 93–98; BMI 39.1
[2023-03-04 06:59] LABS: INTERNATIONAL NORM RATIO 2.5 (0.9-1.1)
[2023-03-04 07:02] LABS: Glucose, Whole Blood 201 mg/dL (60-115)
[2023-03-04 07:08] LABS: Anion Gap 17 (12-20); Blood Urea Nitrogen 47 mg/dL (9-16); Calcium 8.7 mg/dL (8.4-10.2); Carbon Dioxide 27 mmol/L (22-29); Chloride 97 mmol/L (96-108); Creatinine Clr Calc Pharmacy 35.5; Estimated Glomerular Filt Rate 27; Glucose Random 225 mg/dL (60-115); Potassium 3.6 mmol/L (3.3-5.1); Sodium 137 mmol/L (135-145)
[2023-03-04 07:13] LABS: Anion Gap 18 (12-20); Blood Urea Nitrogen 47 mg/dL (9-16); Calcium 8.7 mg/dL (8.4-10.2); Carbon Dioxide 27 mmol/L (22-29); Chloride 96 mmol/L (96-108); Creatinine Clr Calc Pharmacy 36.6; Estimated Glomerular Filt Rate 28; Glucose Random 222 mg/dL (60-115); Magnesium 2.1 mg/dL (1.6-2.6); Potassium 3.6 mmol/L (3.3-5.1); Sodium 137 mmol/L (135-145)
[2023-03-04] MEDS: Insulin Lispro 100 UNIT/ML 3 ML VIAL SUBCUT ×4 (08:25→20:32)
[2023-03-04] MEDS: carvediloL 3.125 MG TABLET PO ×2 (08:30→19:58)
[2023-03-04] MEDS: Atorvastatin Calcium 40 MG TABLET PO (08:31)
[2023-03-04] MEDS: Magnesium Oxide 400 MG TABLET PO ×2 (08:31→17:36)
[2023-03-04] MEDS: Spironolactone 25 MG TABLET PO (08:31)
[2023-03-04] MEDS: 0.9 % Sodium Chloride Flush 3 ML SYRINGE IVFLUSH ×2 (08:31→19:59)
--- NOTE | 2023-03-04 09:49 | HO.ANESPROP2 ---
HPI - Anesthesia Eval Consult details Narrative: [facility] Active Problems Active Problems: All Active Problems (Updated 03/01/23 @ 10:41 by Cesar Storey MD) Acute on chronic systolic heart failure (Acute) Acute kidney injury superimposed on chronic kidney disease (Acute) CHF (congestive heart failure) (Acute) Sleep disorder breathing (Acute) S/P CLARE-BSO (total abdominal hysterectomy and bilateral salpingo-oophorectomy) (Acute) History of uterine cancer (Acute) Persistent atrial fibrillation (Acute) Coronary arteriosclerosis (Acute) Left bundle branch block (Acute) Tinea pedis (Acute) Current use of anticoagulant therapy (Acute) Prolonged QT interval (Acute) CKD (chronic kidney disease) stage 3, GFR 30-59 ml/min (Acute) HFrEF (heart failure with reduced ejection fraction) (Acute) Atrial flutter (Acute) Obesity, Class II, BMI 35-39.9 (Acute) Colonoscopy refused (Acute) Abnormal nuclear cardiac imaging test (Acute) Incomplete left bundle branch block (LBBB) (Acute) Endometrial adenocarcinoma (Acute) Type 2 diabetes mellitus with hyperglycemia, with long-term current use of insulin (Acute) Obesity due to excess calories (Acute) Vitamin D deficiency (Acute) Mixed dyslipidemia (Acute) Papanicolaou smear declined (Acute) Mammogram declined (Acute) Osteoarthritis, knee (Acute) Diabetic neuropathy (Acute) Mild intermittent asthma (Acute) Hiatal hernia (Acute) Essential hypertension (Acute) Past Medical History Medical History History of uterine cancer Personal history of malignant neoplasm of other parts of uterus Persistent atrial fibrillation Tinea pedis History of cardioversion Cardiomyopathy Coronary arteriosclerosis Ischemic cardiomyopathy Colonoscopy refused Incomplete left bundle branch block (LBBB) Endometrial adenocarcinoma Post-menopausal bleeding Type 2 diabetes mellitus with hyperglycemia, with long-term current use of insulin Obesity due to excess calories Diabetes type 2, uncontrolled Vitamin D deficiency Mixed dyslipidemia Papanicolaou smear declined Mammogram declined Osteoarthritis, knee Diabetic neuropathy History of esophagitis Mild intermittent asthma Uterine fibroid History of basal cell carcinoma Osteonecrosis of right hip Hiatal hernia History of cholelithiasis Morbid obesity Essential hypertension Type 2 diabetes mellitus with hyperglycemia, without long-term current use of insulin Irritable bowel syndrome (IBS) Family History Family History Father Myocardial infarction Cardiovascular disease Mother Diabetes mellitus Essential hypertension Daughter Anxiety disorder Mental health disorder Son Mental health disorder Family history of problems with anesthesia: No Surgical History Surgical History S/P CLARE-BSO (total abdominal hysterectomy and bilateral salpingo-oophorectomy) S/P cardiac catheterization History of hysterectomy H/O hernia repair Hx of section History of hip surgery Hx of colonoscopy History of cholecystectomy History of Problems with Anesthesia: No Social History Social History Household Members: Spouse and Children Housing: House Are you a primary medicare specialist to a significant other at home: No Do you presently have visiting nurse or other home services: No Alcohol intake: never Comment: pt refused bed/chair alarms Patient Tobacco Use Status: Never used Tobacco Smoked in Last 30 Days: No e-Cigarette/Vaping Use: Never Used Second Hand Smoke Exposure: No Use of substances other than those prescribed or required for medical reasons: No Currently Displaying Signs/Symptoms of Drug Intoxication Withdrawal: No Have you been hit, kicked, punched, or otherwise hurt by someone within the past year? If so, by whom?: No Do you feel safe in your current relationship?: Yes Is there a partner from a previous relationship who is making you feel unsafe now?: No Are you made to feel afraid or neglected: No Are you DNR?: No Advance Directives: Yes Advance Directives Information Provided: No Advance Directives on File: Yes Advance Directives Date on File: 04/08/22 Do you have thoughts of harming others: None Do you have a plan to hurt others: No Plan Recently lost weight without trying: No Eating poorly because of decreased appetite: Yes Nutrition Risks: No Nutritional Risk Patient : No : No Poor oral hygiene: No service: No Current occupational status: retired Current occupational exposures/hazards: No Cognitive needs: No Hearing needs: No Vision needs: Yes Meds Allergies Allergy/AdvReac Type Severity Reaction Status Date / Time red dye [Red Dye] Allergy Severe HIVES,THROAT Verified 03/01/23 06:10 CLOSES FROM RED FOOD DYE Active Medications: Current Medications Albuterol Sulfate (Albuterol Sulfate 90 Mcg 8 Gm Inhaler) 1 puff INHALE Q6H PRN PRN Reason: Shortness Of Breath Or Wheezing Amiodarone HCl (Amiodarone Hcl 200 Mg Tablet) 200 mg PO DAILY [facility] Last Admin: 03/04/23 09:15 Dose: Not Given Atorvastatin Calcium (Atorvastatin Calcium 40 Mg Tablet) 40 mg PO DAILY [facility] Last Admin: 03/04/23 08:31 Dose: 40 mg Benzocaine (Throat Lozenge, Medicated Lozenge) 1 lozenge MUCOUS MEM Q2H PRN PRN Reason: Sore Throat Benzonatate (Benzonatate 100 Mg Capsule) 100 mg PO TID PRN PRN Reason: Cough Carvedilol (Carvedilol 3.125 Mg Tablet) 3.125 mg PO BID [facility]; Protocol Last Admin: 03/04/23 08:30 Dose: 3.125 mg Dextrose (Dextrose 50 % 25 Gm/50 Ml Syringe) 25 gm IVPUSH Q15M PRN; Protocol PRN Reason: per Hypoglycemia Standing Ord. Glucose (Glucose Gel 15 Gm Gel..Gram.) 15 gm PO Q15M PRN; Protocol PRN Reason: per Hypoglycemia Standing Ord. Hydrocortisone (Hydrocortisone 1 % Cream 28.35 Gm Tube) 1 appl TOPICAL BID PRN; Protocol PRN Reason: Itching Furosemide 200 mg/ Sodium (Chloride) 100 mls @ 5 mls/hr IVCONT .Q20H [facility] Last Admin: 03/03/23 15:42 Dose: 10 mg/hr, 5 mls/hr Insulin Human Lispro (Insulin Lispro 100 Unit/Ml 3 Ml Vial) 0 unit SUBCUT QIDACHS [facility]; Protocol Last Admin: 03/04/23 08:25 Dose: 4 unit Magnesium Oxide (Magnesium Oxide 400 Mg Tablet) [facility] Last Admin: 03/04/23 08:31 Dose: 400 mg Melatonin (Melatonin 3 Mg Tablet) 6 mg PO BEDTIME PRN PRN Reason: Insomnia Ondansetron HCl (Ondansetron Hcl 4 Mg/2 Ml Vial) 4 mg IVPUSH Q8H PRN PRN Reason: Nausea and Vomiting Sodium Chloride (0.9 % Sodium Chloride Flush 3 Ml Syringe) 3 ml IVFLUSH QSHIFT [facility] Last Admin: 03/04/23 08:31 Dose: 3 ml Spironolactone (Spironolactone 25 Mg Tablet) 25 mg PO DAILY [facility]; Protocol Last Admin: 03/04/23 08:31 Dose: 25 mg Warfarin Sodium (Warfarin Sodium 2.5 Mg Tablet) 5 mg PO DAILY@1800 [facility] Home Medications Medication Instructions Recorded Confirmed Last Taken Type blood-glucose meter (FreeStyle 10/25/21 01/31/23 Unknown History Lite Meter kit) lancets 28 gauge (FreeStyle 10/25/21 01/31/23 Unknown History Lancets) pen needle, diabetic 31 gauge x 06/04/22 01/31/23 Unknown History 07/30 (BD Ultra-Fine Short Pen Needle) albuterol sulfate 90 mcg/actuation 180 mcg inhalation Q6H PRN 08/19/22 03/01/23 Unknown History aerosol inhaler Shortness Of Breath Or Wheezing nystatin 100,000 unit/gram topical 1 appl topical BID PRN Rash 11/25/22 03/01/23 Unknown History powder (Nystop) insulin lispro 100 unit/mL 12 unit subcut TIDAC 01/06/23 03/01/23 02/28/23 History subcutaneous pen losartan 25 mg tablet 25 mg PO DAILY 01/27/23 03/01/23 02/28/23 History bumetanide 2 mg tablet 2 mg PO Q2D@0900 03/01/23 03/01/23 02/27/23 History bumetanide 2 mg tablet 2 mg PO Q2D@2100 03/01/23 03/01/23 02/27/23 History bumetanide 2 mg tablet 3 mg PO Q2D@0900 03/01/23 03/01/23 02/28/23 History bumetanide 2 mg tablet 3 mg PO Q2D@2100 03/01/23 03/01/23 02/28/23 History dulaglutide 3 mg/0.5 mL 3 mg subcut FR@0900 03/01/23 03/01/23 02/28/23 History subcutaneous pen injector (Trulicity) warfarin 2.5 mg tablet 2.5 mg PO WE@1800 03/01/23 03/01/23 02/26/23 History warfarin 2.5 mg tablet 5 mg PO SUMOTUTHFRSA@1800 03/01/23 03/01/23 02/28/23 History Exam Height,Weight and Vital Signs: Height 5 ft 5 in Weight 106.5 kg Last Vital Signs Temp 97.0 F 03/04/23 09:35 Pulse 111 H 03/04/23 09:35 Resp 16 03/04/23 09:35 BP 133/85 03/04/23 09:35 Pulse Ox 98 03/04/23 09:35 O2 Del Method Room Air 03/04/23 09:35 O2 Flow Rate 1 03/02/23 03:33 Oxygen Flow Rate 2 03/01/23 06:10 Pertinent Lab Results Pertinent Lab Results: Laboratory Tests 03/01/23 03/01/23 03/01/23 06:18 06:25 07:45 WBC 9.2 RBC 4.39 Hgb 13.5 Hct 40.8 MCV 92.9 MCH 30.8 MCHC 33.1 RDW 13.6 Plt Count 277 MPV 10.1 Absolute Nucleated RBC 0.000 Nucleated RBC % (auto) 0.0 Hold Purple Top PT 34.0 H INR 2.8 H APTT 43.7 H Sodium 133 L Potassium 4.9 D Chloride 97 Carbon Dioxide 24 Anion Gap 17 BUN 43 H Creatinine 2.15 H Estim Creat Clear Calc 31.7 Estimated GFR 23 POC Glucose Random Glucose 342 H Calcium 9.3 Magnesium Total Bilirubin 0.7 AST 16 ALT 15 Alkaline Phosphatase 96 Troponin I High Sens 8.4 B-Natriuretic Peptide 151 H Total Protein 7.6 Albumin 4.0 Urine Color Urine Appearance Urine pH Ur Specific [place] Urine Protein Urine Glucose (UA) Urine Ketones Urine Blood Urine Nitrite Ur Leukocyte Esterase Urine RBC Urine WBC Ur Squamous Epith Cells Urine Bacteria Hyaline Casts Respiratory Panel [place] Cancelled Adenovirus (Rapid PCR) Cancelled B.pert (TEM-PCR) Cancelled B.parapertussis DNA PCR Cancelled C. pneumoniae DNA (PCR) Cancelled Coronavirus OC43 (PCR) Cancelled Coronavirus HKU1 (PCR) Cancelled Coronavirus 229E (PCR) Cancelled Coronavirus NL63 (PCR) Cancelled Human Metapneumovir PCR Cancelled Influenza A (RT-PCR) Cancelled Influenza B (RT-PCR) Cancelled M. pneumoniae (PCR) Cancelled Parainfluenza 1 (PCR) Cancelled Parainfluenza 2 (PCR) Cancelled Parainfluenza 3 (PCR) Cancelled Parainfluenza 4 (PCR) Cancelled RSV (PCR) Cancelled Entero/Rhino (PCR) Cancelled SARS-CoV-2 RNA (RT-PCR) Cancelled 03/01/23 03/01/23 03/01/23 09:39 12:10 17:12 WBC RBC Hgb Hct MCV MCH MCHC RDW Plt Count MPV Absolute Nucleated RBC Nucleated RBC % (auto) Hold Purple Top PT INR APTT Sodium Potassium Chloride Carbon Dioxide Anion Gap BUN Creatinine Estim Creat Clear Calc Estimated GFR POC Glucose 196 H Random Glucose Calcium Magnesium Total Bilirubin AST ALT Alkaline Phosphatase Troponin I High Sens 12.9 D B-Natriuretic Peptide Total Protein Albumin Urine Color Yellow Urine Appearance Clear Urine pH 5.5 Ur Specific [place] 1.010 Urine Protein Negative Urine Glucose (UA) Negative Urine Ketones Negative Urine Blood Negative Urine Nitrite Negative Ur Leukocyte Esterase Moderate (2+) H Urine RBC 0-2 Urine WBC 11-20 H Ur Squamous Epith Cells 0-2 Urine Bacteria 4+ Hyaline Casts 0-2 Respiratory Panel Esp[place] See Note Adenovirus (Rapid PCR) Not Detected B.pert (TEM-PCR) Not Detected B.parapertussis DNA PCR Not Detected C. pneumoniae DNA (PCR) Not Detected Coronavirus OC43 (PCR) Not Detected Coronavirus HKU1 (PCR) Not Detected Coronavirus 229E (PCR) Not Detected Coronavirus NL63 (PCR) Not Detected Human Metapneumovir PCR Not Detected Influenza A (RT-PCR) Not Detected Influenza B (RT-PCR) Not Detected M. pneumoniae (PCR) Not Detected Parainfluenza 1 (PCR) Not Detected Parainfluenza 2 (PCR) Not Detected Parainfluenza 3 (PCR) Not Detected Parainfluenza 4 (PCR) Not Detected RSV (PCR) Not Detected Entero/Rhino (PCR) Not Detected SARS-CoV-2 RNA (RT-PCR) Not Detected 03/01/23 03/02/23 03/02/23 21:16 06:11 07:07 WBC RBC Hgb Hct MCV MCH MCHC RDW Plt Count MPV Absolute Nucleated RBC Nucleated RBC % (auto) Hold Purple Top SEE NOTE PT 40.3 H INR 3.3 H APTT Sodium 136 Potassium 3.6 D Chloride 97 Carbon Dioxide 27 Anion Gap 16 BUN 41 H Creatinine 2.01 H Estim Creat Clear Calc 33.9 Estimated GFR 25 POC Glucose 242 H 216 H Random Glucose 263 H Calcium 8.9 Magnesium 1.8 Total Bilirubin AST ALT Alkaline Phosphatase Troponin I High Sens B-Natriuretic Peptide 146 H Total Protein Albumin Urine Color Urine Appearance Urine pH Ur Specific [place] Urine Protein Urine Glucose (UA) Urine Ketones Urine Blood Urine Nitrite Ur Leukocyte Esterase Urine RBC Urine WBC Ur Squamous Epith Cells Urine Bacteria Hyaline Casts Respiratory Panel [place] Adenovirus (Rapid PCR) B.pert (TEM-PCR) B.parapertussis DNA PCR C. pneumoniae DNA (PCR) Coronavirus OC43 (PCR) Coronavirus HKU1 (PCR) Coronavirus 229E (PCR) Coronavirus NL63 (PCR) Human Metapneumovir PCR Influenza A (RT-PCR) Influenza B (RT-PCR) M. pneumoniae (PCR) Parainfluenza 1 (PCR) Parainfluenza 2 (PCR) Parainfluenza 3 (PCR) Parainfluenza 4 (PCR) RSV (PCR) Entero/Rhino (PCR) SARS-CoV-2 RNA (RT-PCR) 03/02/23 03/02/23 03/02/23 11:49 16:55 19:47 WBC RBC Hgb Hct MCV MCH MCHC RDW Plt Count MPV Absolute Nucleated RBC Nucleated RBC % (auto) Hold Purple Top PT INR APTT Sodium Potassium Chloride Carbon Dioxide Anion Gap BUN Creatinine Estim Creat Clear Calc Estimated GFR POC Glucose 259 H 281 H 304 H Random Glucose Calcium Magnesium Total Bilirubin AST ALT Alkaline Phosphatase Troponin I High Sens B-Natriuretic Peptide Total Protein Albumin Urine Color Urine Appearance Urine pH Ur Specific [place] Urine Protein Urine Glucose (UA) Urine Ketones Urine Blood Urine Nitrite Ur Leukocyte Esterase Urine RBC Urine WBC Ur Squamous Epith Cells Urine Bacteria Hyaline Casts Respiratory Panel [place] Adenovirus (Rapid PCR) B.pert (TEM-PCR) B.parapertussis DNA PCR C. pneumoniae DNA (PCR) Coronavirus OC43 (PCR) Coronavirus HKU1 (PCR) Coronavirus 229E (PCR) Coronavirus NL63 (PCR) Human Metapneumovir PCR Influenza A (RT-PCR) Influenza B (RT-PCR) M. pneumoniae (PCR) Parainfluenza 1 (PCR) Parainfluenza 2 (PCR) Parainfluenza 3 (PCR) Parainfluenza 4 (PCR) RSV (PCR) Entero/Rhino (PCR) SARS-CoV-2 RNA (RT-PCR) 03/03/23 03/03/23 03/03/23 07:18 07:18 07:18 WBC RBC Hgb Hct MCV MCH MCHC RDW Plt Count MPV Absolute Nucleated RBC Nucleated RBC % (auto) Hold Purple Top PT INR APTT Sodium 135 135 Potassium 3.5 3.5 Chloride 96 Carbon Dioxide Anion Gap BUN Creatinine Estim Creat Clear Calc Estimated GFR POC Glucose Random Glucose Calcium Magnesium Total Bilirubin AST ALT Alkaline Phosphatase Troponin I High Sens B-Natriuretic Peptide Total Protein Albumin Urine Color Urine Appearance Urine pH Ur Specific [place] Urine Protein Urine Glucose (UA) Urine Ketones Urine Blood Urine Nitrite Ur Leukocyte Esterase Urine RBC Urine WBC Ur Squamous Epith Cells Urine Bacteria Hyaline Casts Respiratory Panel [place] Adenovirus (Rapid PCR) B.pert (TEM-PCR) B.parapertussis DNA PCR C. pneumoniae DNA (PCR) Coronavirus OC43 (PCR) Coronavirus HKU1 (PCR) Coronavirus 229E (PCR) Coronavirus NL63 (PCR) Human Metapneumovir PCR Influenza A (RT-PCR) Influenza B (RT-PCR) M. pneumoniae (PCR) Parainfluenza 1 (PCR) Parainfluenza 2 (PCR) Parainfluenza 3 (PCR) Parainfluenza 4 (PCR) RSV (PCR) Entero/Rhino (PCR) SARS-CoV-2 RNA (RT-PCR) 03/03/23 03/03/23 03/03/23 07:18 07:18 07:18 WBC RBC Hgb Hct MCV MCH MCHC RDW Plt Count MPV Absolute Nucleated RBC Nucleated RBC % (auto) Hold Purple Top PT INR APTT Sodium Potassium Chloride 96 Carbon Dioxide 27 26 Anion Gap 16 17 BUN 42 H Creatinine Estim Creat Clear Calc Estimated GFR POC Glucose Random Glucose Calcium Magnesium Total Bilirubin AST ALT Alkaline Phosphatase Troponin I High Sens B-Natriuretic Peptide Total Protein Albumin Urine Color Urine Appearance Urine pH Ur Specific [place] Urine Protein Urine Glucose (UA) Urine Ketones Urine Blood Urine Nitrite Ur Leukocyte Esterase Urine RBC Urine WBC Ur Squamous Epith Cells Urine Bacteria Hyaline Casts Respiratory Panel [place] Adenovirus (Rapid PCR) B.pert (TEM-PCR) B.parapertussis DNA PCR C. pneumoniae DNA (PCR) Coronavirus OC43 (PCR) Coronavirus HKU1 (PCR) Coronavirus 229E (PCR) Coronavirus NL63 (PCR) Human Metapneumovir PCR Influenza A (RT-PCR) Influenza B (RT-PCR) M. pneumoniae (PCR) Parainfluenza 1 (PCR) Parainfluenza 2 (PCR) Parainfluenza 3 (PCR) Parainfluenza 4 (PCR) RSV (PCR) Entero/Rhino (PCR) SARS-CoV-2 RNA (RT-PCR) 03/03/23 03/03/23 03/03/23 07:18 07:18 07:18 WBC RBC Hgb Hct MCV MCH MCHC RDW Plt Count MPV Absolute Nucleated RBC Nucleated RBC % (auto) Hold Purple Top PT INR APTT Sodium Potassium Chloride Carbon Dioxide Anion Gap BUN 40 H Creatinine 1.90 H 1.89 H Estim Creat Clear Calc 34.7 34.9 Estimated GFR 26 POC Glucose Random Glucose Calcium Magnesium Total Bilirubin AST ALT Alkaline Phosphatase Troponin I High Sens B-Natriuretic Peptide Total Protein Albumin Urine Color Urine Appearance Urine pH Ur Specific [place] Urine Protein Urine Glucose (UA) Urine Ketones Urine Blood Urine Nitrite Ur Leukocyte Esterase Urine RBC Urine WBC Ur Squamous Epith Cells Urine Bacteria Hyaline Casts Respiratory Panel [place] Adenovirus (Rapid PCR) B.pert (TEM-PCR) B.parapertussis DNA PCR C. pneumoniae DNA (PCR) Coronavirus OC43 (PCR) Coronavirus HKU1 (PCR) Coronavirus 229E (PCR) Coronavirus NL63 (PCR) Human Metapneumovir PCR Influenza A (RT-PCR) Influenza B (RT-PCR) M. pneumoniae (PCR) Parainfluenza 1 (PCR) Parainfluenza 2 (PCR) Parainfluenza 3 (PCR) Parainfluenza 4 (PCR) RSV (PCR) Entero/Rhino (PCR) SARS-CoV-2 RNA (RT-PCR) 03/03/23 03/03/23 03/03/23 07:18 07:18 07:18 WBC RBC Hgb Hct MCV MCH MCHC RDW Plt Count MPV Absolute Nucleated RBC Nucleated RBC % (auto) Hold Purple Top PT INR APTT Sodium Potassium Chloride Carbon Dioxide Anion Gap BUN Creatinine Estim Creat Clear Calc Estimated GFR 27 POC Glucose Random Glucose 196 H 194 H Calcium 8.9 8.9 Magnesium 1.9 Total Bilirubin AST ALT Alkaline Phosphatase Troponin I High Sens B-Natriuretic Peptide 111 H Total Protein Albumin Urine Color Urine Appearance Urine pH Ur Specific [place] Urine Protein Urine Glucose (UA) Urine Ketones Urine Blood Urine Nitrite Ur Leukocyte Esterase Urine RBC Urine WBC Ur Squamous Epith Cells Urine Bacteria Hyaline Casts Respiratory Panel [place] Adenovirus (Rapid PCR) B.pert (TEM-PCR) B.parapertussis DNA PCR C. pneumoniae DNA (PCR) Coronavirus OC43 (PCR) Coronavirus HKU1 (PCR) Coronavirus 229E (PCR) Coronavirus NL63 (PCR) Human Metapneumovir PCR Influenza A (RT-PCR) Influenza B (RT-PCR) M. pneumoniae (PCR) Parainfluenza 1 (PCR) Parainfluenza 2 (PCR) Parainfluenza 3 (PCR) Parainfluenza 4 (PCR) RSV (PCR) Entero/Rhino (PCR) SARS-CoV-2 RNA (RT-PCR) 03/03/23 03/03/23 03/03/23 07:58 11:11 11:16 WBC RBC Hgb Hct MCV MCH MCHC RDW Plt Count MPV Absolute Nucleated RBC Nucleated RBC % (auto) Hold Purple Top PT 32.1 H D INR 2.6 H APTT Sodium Potassium Chloride Carbon Dioxide Anion Gap BUN Creatinine Estim Creat Clear Calc Estimated GFR POC Glucose 184 H 227 H Random Glucose Calcium Magnesium Total Bilirubin AST ALT Alkaline Phosphatase Troponin I High Sens B-Natriuretic Peptide Total Protein Albumin Urine Color Urine Appearance Urine pH Ur Specific [place] Urine Protein Urine Glucose (UA) Urine Ketones Urine Blood Urine Nitrite Ur Leukocyte Esterase Urine RBC Urine WBC Ur Squamous Epith Cells Urine Bacteria Hyaline Casts Respiratory Panel [place] Adenovirus (Rapid PCR) B.pert (TEM-PCR) B.parapertussis DNA PCR C. pneumoniae DNA (PCR) Coronavirus OC43 (PCR) Coronavirus HKU1 (PCR) Coronavirus 229E (PCR) Coronavirus NL63 (PCR) Human Metapneumovir PCR Influenza A (RT-PCR) Influenza B (RT-PCR) M. pneumoniae (PCR) Parainfluenza 1 (PCR) Parainfluenza 2 (PCR) Parainfluenza 3 (PCR) Parainfluenza 4 (PCR) RSV (PCR) Entero/Rhino (PCR) SARS-CoV-2 RNA (RT-PCR) 03/03/23 03/03/23 03/04/23 16:40 20:51 06:11 WBC RBC Hgb Hct MCV MCH MCHC RDW Plt Count MPV Absolute Nucleated RBC Nucleated RBC % (auto) Hold Purple Top SEE NOTE PT 31.0 H INR 2.5 H APTT Sodium 137 Potassium Chloride Carbon Dioxide Anion Gap BUN Creatinine Estim Creat Clear Calc Estimated GFR POC Glucose 277 H 289 H Random Glucose Calcium Magnesium Total Bilirubin AST ALT Alkaline Phosphatase Troponin I High Sens B-Natriuretic Peptide Total Protein Albumin Urine Color Urine Appearance Urine pH Ur Specific [place] Urine Protein Urine Glucose (UA) Urine Ketones Urine Blood Urine Nitrite Ur Leukocyte Esterase Urine RBC Urine WBC Ur Squamous Epith Cells Urine Bacteria Hyaline Casts Respiratory Panel [place] Adenovirus (Rapid PCR) B.pert (TEM-PCR) B.parapertussis DNA PCR C. pneumoniae DNA (PCR) Coronavirus OC43 (PCR) Coronavirus HKU1 (PCR) Coronavirus 229E (PCR) Coronavirus NL63 (PCR) Human Metapneumovir PCR Influenza A (RT-PCR) Influenza B (RT-PCR) M. pneumoniae (PCR) Parainfluenza 1 (PCR) Parainfluenza 2 (PCR) Parainfluenza 3 (PCR) Parainfluenza 4 (PCR) RSV (PCR) Entero/Rhino (PCR) SARS-CoV-2 RNA (RT-PCR) 03/04/23 03/04/23 03/04/23 06:11 06:11 06:11 WBC RBC Hgb Hct MCV MCH MCHC RDW Plt Count MPV Absolute Nucleated RBC Nucleated RBC % (auto) Hold Purple Top PT INR APTT Sodium 137 Potassium 3.6 3.6 Chloride 96 97 Carbon Dioxide 27 Anion Gap BUN Creatinine Estim Creat Clear Calc Estimated GFR POC Glucose Random Glucose Calcium Magnesium Total Bilirubin AST ALT Alkaline Phosphatase Troponin I High Sens B-Natriuretic Peptide Total Protein Albumin Urine Color Urine Appearance Urine pH Ur Specific [place] Urine Protein Urine Glucose (UA) Urine Ketones Urine Blood Urine Nitrite Ur Leukocyte Esterase Urine RBC Urine WBC Ur Squamous Epith Cells Urine Bacteria Hyaline Casts Respiratory Panel [place] Adenovirus (Rapid PCR) B.pert (TEM-PCR) B.parapertussis DNA PCR C. pneumoniae DNA (PCR) Coronavirus OC43 (PCR) Coronavirus HKU1 (PCR) Coronavirus 229E (PCR) Coronavirus NL63 (PCR) Human Metapneumovir PCR Influenza A (RT-PCR) Influenza B (RT-PCR) M. pneumoniae (PCR) Parainfluenza 1 (PCR) Parainfluenza 2 (PCR) Parainfluenza 3 (PCR) Parainfluenza 4 (PCR) RSV (PCR) Entero/Rhino (PCR) SARS-CoV-2 RNA (RT-PCR) 03/04/23 03/04/23 03/04/23 06:11 06:11 06:11 WBC RBC Hgb Hct MCV MCH MCHC RDW Plt Count MPV Absolute Nucleated RBC Nucleated RBC % (auto) Hold Purple Top PT INR APTT Sodium Potassium Chloride Carbon Dioxide 27 Anion Gap 18 17 BUN 47 H 47 H Creatinine 1.81 H Estim Creat Clear Calc Estimated GFR POC Glucose Random Glucose Calcium Magnesium Total Bilirubin AST ALT Alkaline Phosphatase Troponin I High Sens B-Natriuretic Peptide Total Protein Albumin Urine Color Urine Appearance Urine pH Ur Specific [place] Urine Protein Urine Glucose (UA) Urine Ketones Urine Blood Urine Nitrite Ur Leukocyte Esterase Urine RBC Urine WBC Ur Squamous Epith Cells Urine Bacteria Hyaline Casts Respiratory Panel [place] Adenovirus (Rapid PCR) B.pert (TEM-PCR) B.parapertussis DNA PCR C. pneumoniae DNA (PCR) Coronavirus OC43 (PCR) Coronavirus HKU1 (PCR) Coronavirus 229E (PCR) Coronavirus NL63 (PCR) Human Metapneumovir PCR Influenza A (RT-PCR) Influenza B (RT-PCR) M. pneumoniae (PCR) Parainfluenza 1 (PCR) Parainfluenza 2 (PCR) Parainfluenza 3 (PCR) Parainfluenza 4 (PCR) RSV (PCR) Entero/Rhino (PCR) SARS-CoV-2 RNA (RT-PCR) 03/04/23 03/04/23 03/04/23 06:11 06:11 06:11 WBC RBC Hgb Hct MCV MCH MCHC RDW Plt Count MPV Absolute Nucleated RBC Nucleated RBC % (auto) Hold Purple Top PT INR APTT Sodium Potassium Chloride Carbon Dioxide Anion Gap BUN Creatinine 1.86 H Estim Creat Clear Calc 36.6 35.5 Estimated GFR 28 27 POC Glucose Random Glucose 222 H Calcium Magnesium Total Bilirubin AST ALT Alkaline Phosphatase Troponin I High Sens B-Natriuretic Peptide Total Protein Albumin Urine Color Urine Appearance Urine pH Ur Specific [place] Urine Protein Urine Glucose (UA) Urine Ketones Urine Blood Urine Nitrite Ur Leukocyte Esterase Urine RBC Urine WBC Ur Squamous Epith Cells Urine Bacteria Hyaline Casts Respiratory Panel [place] Adenovirus (Rapid PCR) B.pert (TEM-PCR) B.parapertussis DNA PCR C. pneumoniae DNA (PCR) Coronavirus OC43 (PCR) Coronavirus HKU1 (PCR) Coronavirus 229E (PCR) Coronavirus NL63 (PCR) Human Metapneumovir PCR Influenza A (RT-PCR) Influenza B (RT-PCR) M. pneumoniae (PCR) Parainfluenza 1 (PCR) Parainfluenza 2 (PCR) Parainfluenza 3 (PCR) Parainfluenza 4 (PCR) RSV (PCR) Entero/Rhino (PCR) SARS-CoV-2 RNA (RT-PCR) 03/04/23 03/04/23 03/04/23 06:11 06:11 06:53 WBC RBC Hgb Hct MCV MCH MCHC RDW Plt Count MPV Absolute Nucleated RBC Nucleated RBC % (auto) Hold Purple Top PT INR APTT Sodium Potassium Chloride Carbon Dioxide Anion Gap BUN Creatinine Estim Creat Clear Calc Estimated GFR POC Glucose 201 H Random Glucose 225 H Calcium 8.7 8.7 Magnesium 2.1 Total Bilirubin AST ALT Alkaline Phosphatase Troponin I High Sens B-Natriuretic Peptide Total Protein Albumin Urine Color Urine Appearance Urine pH Ur Specific [place] Urine Protein Urine Glucose (UA) Urine Ketones Urine Blood Urine Nitrite Ur Leukocyte Esterase Urine RBC Urine WBC Ur Squamous Epith Cells Urine Bacteria Hyaline Casts Respiratory Panel [place] Adenovirus (Rapid PCR) B.pert (TEM-PCR) B.parapertussis DNA PCR C. pneumoniae DNA (PCR) Coronavirus OC43 (PCR) Coronavirus HKU1 (PCR) Coronavirus 229E (PCR) Coronavirus NL63 (PCR) Human Metapneumovir PCR Influenza A (RT-PCR) Influenza B (RT-PCR) M. pneumoniae (PCR) Parainfluenza 1 (PCR) Parainfluenza 2 (PCR) Parainfluenza 3 (PCR) Parainfluenza 4 (PCR) RSV (PCR) Entero/Rhino (PCR) SARS-CoV-2 RNA (RT-PCR) Airway Heart: af Lungs: cta Assessment and Plan Assessment Anesthesia Assessment: Anesthesia Plan Discussed Final Anesthetic Review Family History of Problems with Anesthesia: No History of Problems with Anesthesia: No NPO: Yes ASA Class: III Final Preanesthetic Review: No Changes in Pt Med Stat, Meds/Allgs Chart Reviewed, Consent Obtained/Reviewed and Anes Risks/Benef Reviewed Patient Risk: Intermediate Procedure Risk: Low Anesthetic Plan Anesthetic Plan: MAC: Disposition: Standard PACU
[2023-03-04 09:50] LABS: Glucose, Whole Blood 190 mg/dL (60-115)
--- NOTE | 2023-03-04 09:51 | MHC.SHP ---
Pre-Procedural Eval Section A Date of Service: 03/04/23 The patient is an INPATIENT: Yes Changes since office visit: Yes Patient answered all questions; No Cold of Flu in the past 2 weeks, No New Medical Problems and No Changes in Medication The History & Physical has been completed within 30 days and I have reviewed it.: Yes Section B Chief Complaint: CHF exacerbation Allergies: Allergies Allergy/AdvReac Type Severity Reaction Status Date / Time red dye [Red Dye] Allergy Severe HIVES,THROAT Verified 03/01/23 06:10 CLOSES FROM RED FOOD DYE Plan I have reviewed the history and physical and performed a pertinent physical examination on my patient. No changes have occurred unless specified. Time Spent With Patient Time: Total time managing care of this patient today ____ minutes.
[2023-03-04] MEDS: Amiodarone HCL 200 MG TABLET PO (10:01)
[2023-03-04 10:08] LABS: Anion Gap 17 (12-20); Blood Urea Nitrogen 45 mg/dL (9-16); Calcium 8.8 mg/dL (8.4-10.2); Carbon Dioxide 26 mmol/L (22-29); Chloride 98 mmol/L (96-108); Creatinine Clr Calc Pharmacy 37.1; Estimated Glomerular Filt Rate 28; Glucose Random 211 mg/dL (60-115); Potassium 3.5 mmol/L (3.3-5.1); Sodium 137 mmol/L (135-145)
[2023-03-04 10:14] LABS: B Type Natriuretic Peptide 123 pg/mL (<100)
--- NOTE | 2023-03-04 10:29 | ECG_ITS ---
Test Reason : post cardioversion Blood Pressure : / mmHG Vent. Rate : 069 BPM Atrial Rate : 069 BPM P-R Int : 196 ms QRS Dur : 156 ms QT Int : 474 ms P-R-T Axes : 069 -41 102 degrees QTc Int : 507 ms Normal sinus rhythm Left axis deviation Left bundle branch block Abnormal ECG When compared with ECG of 01-MAR-2023 06:08, Normal sinus rhythm has replaced atrial flutter T wave amplitude has decreased in Inferior leads Referred By: Diego Valdez Electronically Signed By:DIEGO VALDEZ MD
--- NOTE | 2023-03-04 10:30 | ECG_ITS ---
Test Reason : s/p cardioversion Blood Pressure : / mmHG Vent. Rate : 066 BPM Atrial Rate : 066 BPM P-R Int : 206 ms QRS Dur : 160 ms QT Int : 492 ms P-R-T Axes : 078 -43 106 degrees QTc Int : 515 ms Sinus rhythm with Premature atrial complexes Left axis deviation Left bundle branch block Abnormal ECG When compared with ECG of 04-MAR-2023 10:25, Premature atrial complexes are now Present Referred By: Diego Valdez Electronically Signed By:DIEGO VALDEZ MD
[2023-03-04] MEDS: Amiodarone/Dextrose 150 MG/100 ML PLAST..BAG 600 MG IV (11:14)
[2023-03-04 11:23] LABS: Glucose, Whole Blood 206 mg/dL (60-115)
--- NOTE | 2023-03-04 11:57 | HO.CARDIVERS ---
Cardioversion Procedure Note Cardioversion Date of Procedure: Today Ordering Provider: Dr. Storey Performing Provider: Myself Indication for Procedure: Persistent recurrent atrial fibrillation with decompensated heart failure and worsening LV systolic function Pre-Op Diagnosis: Same Post-Op Diagnosis: Sinus rhythm Performed with Transesophageal Echo: No History: See the progress note Consent: Verbal and Written consent was obtained from the patient before starting and after confirming INR. The patient was made aware of the risk of synchronized cardioversion including alternatives and benefits Procedure: After consent obtained, cardioversion pads were attached in anteroposterior configuration and the patient was sedated by the anesthesia team. Once adequate sedation achieved, patient was delivered 200 joules of biphasic synchronized energy in anteroposterior configuration Complications: None Impression: Successful conversion to sinus rhythm Recommendations: 1. 12 lead EKG 2. IV amiodarone drip for 1 day with loading to increase plasma levels 3. Continue warfarin therapy 4. Continue IV diuresis
[2023-03-04] MEDS: Amiodarone HCL 900 MG in 0.9 % Sodium Chloride 500 ML 34.53 MG IVCONT (11:58)
--- NOTE | 2023-03-04 12:00 | PM.PNCARD ---
Subjective Subjective Date of Service: 03/04/23 Principal diagnosis: Atrial flutter, heart failure with reduced ejection fraction Interval history: Patient status post cardioversion. In sinus rhythm. Shortness of breath as per has improved. Total cumulative negative balance of about 3.5 L. patient denies any palpitation irregular heartbeat. No lightheadedness, syncope. Review of Systems Constitutional: Reports no additional constitutional complaints Cardiovascular: Reports leg edema and Reports dyspnea on exertion Respiratory: Reports no additional respiratory complaints and Reports dyspnea on exertion Physical Exam Vital Signs: Last Vital Signs Temp 97.8 F 03/04/23 11:12 Pulse 72 03/04/23 11:12 Resp 20 03/04/23 11:12 BP 111/64 03/04/23 11:12 Pulse Ox 96 03/04/23 11:12 O2 Del Method Room Air 03/04/23 11:12 O2 Flow Rate 2 03/04/23 10:45 Oxygen Flow Rate 2 03/01/23 06:10 BMI result Body Mass Index 39.1 Const General: cooperative, alert and awake Nutritional Appearance: obese Orientation/consciousness: patient oriented x3 Neck Neck: Yes trachea midline, Yes supple and Yes JVD Resp Effort & Inspection: decreased respiratory effort Cardio Jugular venous distension: JVD Rhythm: regular rhythm Heart sounds: S1 normal heart sound present, S2 normal heart sound present, no click, no gallops, no murmurs and no rubs GI Inspection: Yes distended Auscultation: normal bowel sounds Skin General skin exam: no rashes or lesions noted Neuro General: patient oriented x3 and no focal motor deficits Extrem General: No clubbing, No cyanosis and Yes edema Objective Labs and Meds 03/01/23 06:18 03/04/23 08:23 Lab results: Laboratory Results - last 24 hr 03/03/23 03/03/23 03/03/23 11:16 16:40 20:51 Hold Purple Top PT 32.1 H D INR 2.6 H Sodium Potassium Chloride Carbon Dioxide Anion Gap BUN Creatinine Estim Creat Clear Calc Estimated GFR POC Glucose 277 H 289 H Random Glucose Calcium Magnesium B-Natriuretic Peptide 03/04/23 03/04/23 03/04/23 06:11 06:11 06:11 Hold Purple Top SEE NOTE PT 31.0 H INR 2.5 H Sodium 137 137 Potassium 3.6 3.6 Chloride 96 Carbon Dioxide Anion Gap BUN Creatinine Estim Creat Clear Calc Estimated GFR POC Glucose Random Glucose Calcium Magnesium B-Natriuretic Peptide 03/04/23 03/04/23 03/04/23 06:11 06:11 06:11 Hold Purple Top PT INR Sodium Potassium Chloride 97 Carbon Dioxide 27 27 Anion Gap 18 17 BUN 47 H Creatinine Estim Creat Clear Calc Estimated GFR POC Glucose Random Glucose Calcium Magnesium B-Natriuretic Peptide 03/04/23 03/04/23 03/04/23 06:11 06:11 06:11 Hold Purple Top PT INR Sodium Potassium Chloride Carbon Dioxide Anion Gap BUN 47 H Creatinine 1.81 H 1.86 H Estim Creat Clear Calc 36.6 35.5 Estimated GFR 28 POC Glucose Random Glucose Calcium Magnesium B-Natriuretic Peptide 03/04/23 03/04/23 03/04/23 06:11 06:11 06:11 Hold Purple Top PT INR Sodium Potassium Chloride Carbon Dioxide Anion Gap BUN Creatinine Estim Creat Clear Calc Estimated GFR 27 POC Glucose Random Glucose 222 H 225 H Calcium 8.7 8.7 Magnesium 2.1 B-Natriuretic Peptide 03/04/23 03/04/23 03/04/23 06:53 08:23 09:47 Hold Purple Top PT INR Sodium 137 Potassium 3.5 Chloride 98 Carbon Dioxide 26 Anion Gap 17 BUN 45 H Creatinine 1.78 H Estim Creat Clear Calc 37.1 Estimated GFR 28 POC Glucose 201 H 190 H Random Glucose 211 H Calcium 8.8 Magnesium B-Natriuretic Peptide 123 H 03/04/23 11:19 Hold Purple Top PT INR Sodium Potassium Chloride Carbon Dioxide Anion Gap BUN Creatinine Estim Creat Clear Calc Estimated GFR POC Glucose 206 H Random Glucose Calcium Magnesium B-Natriuretic Peptide Progress Note: A&P Assessment and plan (1) Acute on chronic systolic heart failure: Status: Acute Assessment and Plan: Patient with acute decompensated congestive heart failure with worsening of systolic function with recurrent atrial flutter. Patient is doing better. Continue IV diuresis for 1 more day. Strict intake and output chart needs to be pursued. Continue follow-up BMP and BNP tomorrow. Expect significant improvement in a BNP in if so will switch her to oral diuretics starting tomorrow. Add valsartan 20 mg b.i.d. to her regimen for neurohormonal modulation. Continue spironolactone and carvedilol therapy. Is stable by tomorrow will also consider adding Jardiance to her regimen. Continue rhythm control approach as below. CPAP therapy needs to be pursued. (2) Atrial flutter: Status: Acute Assessment and Plan: Patient status post cardioversion. 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 She will do well with rhythm control approach as she has done in the past and hopefully will improve her heart failure syndrome. Eventually however requires follow-up with EPS on urgent basis to consider ablation. CPAP therapy. Continue full oral anticoagulation, currently on warfarin. Maintain target INR between 2 and 3. Will continue to follow with you Time Spent With Patient Time: Total time managing care of this patient today ____ minutes. Progress Note: Quality Stroke Does the patient have a stroke diagnosis?: No Procedures Date of Service Date of Service: 03/04/23
[2023-03-04] MEDS: Furosemide 200 MG in 0.9 % Sodium Chloride 80 ML IVCONT (12:03)
--- NOTE | 2023-03-04 12:26 | P.PNIM_ITS ---
Subjective Subjective Date of Service: 03/04/23 Interval History: chf execerbation,aflutter with rvr, dm with hyperglycemia Review of Systems seems sob, denies any chest pain or palpitations or fever or chills. Physical Exam 2 Vital Signs: Vital Signs: Last Vital Signs Temp 97.8 F 03/04/23 11:12 Pulse 72 03/04/23 11:12 Resp 20 03/04/23 11:12 BP 111/64 03/04/23 11:12 Pulse Ox 96 03/04/23 11:12 O2 Del Method Room Air 03/04/23 11:12 O2 Flow Rate 2 03/04/23 10:45 Oxygen Flow Rate 2 03/01/23 06:10 BMI result Body Mass Index 39.1 Appearance: Alert.? Oriented X3.? cvs: irregular rythem, [id number] res: clear to auscultation ,no rhonchii or wheezing abd: no rebound or guarding ,nt, bs present. ext pulses present , no cyanosis ,2+ edema . neuro: axo3 , nonfocal. Objective Data Active Medications Albuterol Sulfate (Albuterol Sulfate 90 Mcg 8 Gm Inhaler) 1 puff INHALE Q6H PRN PRN Reason: Shortness Of Breath Or Wheezing Amiodarone HCl (Amiodarone Hcl 200 Mg Tablet) 200 mg PO DAILY [facility] Last Admin: 03/04/23 10:01 Dose: 200 mg Documented By: EDU Atorvastatin Calcium (Atorvastatin Calcium 40 Mg Tablet) 40 mg PO DAILY [facility] [place] Last Admin: 03/04/23 08:31 Dose: 40 mg Documented By: JAGJIT Benzocaine (Throat Lozenge, Medicated Lozenge) 1 lozenge MUCOUS MEM Q2H PRN PRN Reason: Sore Throat Benzonatate (Benzonatate 100 Mg Capsule) 100 mg PO TID PRN PRN Reason: Cough Carvedilol (Carvedilol 3.125 Mg Tablet) 3.125 mg PO BID [facility]; Protocol Last Admin: 03/04/23 08:30 Dose: 3.125 mg Documented By: JAGJIT Dextrose (Dextrose 50 % 25 Gm/50 Ml Syringe) 25 gm IVPUSH Q15M PRN; Protocol PRN Reason: per Hypoglycemia Standing Ord. Glucose (Glucose Gel 15 Gm Gel..Gram.) 15 gm PO Q15M PRN; Protocol PRN Reason: per Hypoglycemia Standing Ord. Hydrocortisone (Hydrocortisone 1 % Cream 28.35 Gm Tube) 1 appl TOPICAL BID PRN; Protocol PRN Reason: Itching Furosemide 200 mg/ Sodium (Chloride) 100 mls @ 5 mls/hr IVCONT .Q20H [facility] Last Admin: 03/04/23 12:03 Dose: 10 mg/hr, 5 mls/hr Documented By: JAGJIT Amiodarone HCl 900 mg/ Sodium (Chloride) 518 mls @ 34.533 mls/hr IVCONT .Q15H1M [facility]; Protocol Last Admin: 03/04/23 11:58 Dose: 1 mg/min, 34.53 mls/hr Documented By: JAGJIT Insulin Human Lispro (Insulin Lispro 100 Unit/Ml 3 Ml Vial) 0 unit SUBCUT QIDACHS [facility]; Protocol Last Admin: 03/04/23 12:09 Dose: 4 unit Documented By: JAGJIT Magnesium Oxide ([facility]ide 400 Mg Tablet) [facility] Last Admin: 03/04/23 08:31 Dose: 400 mg Documented By: JAGJIT Melatonin (Melatonin 3 Mg Tablet) 6 mg PO BEDTIME PRN PRN Reason: Insomnia Ondansetron HCl (Ondansetron Hcl 4 Mg/2 Ml Vial) 4 mg IVPUSH Q8H PRN PRN Reason: Nausea and Vomiting Sodium Chloride (0.9 % Sodium Chloride Flush 3 Ml Syringe) 3 ml IVFLUSH QSHIFT [facility] Last Admin: 03/04/23 08:31 Dose: 3 ml Documented By: JAGJIT Spironolactone (Spironolactone 25 Mg Tablet) 25 mg PO DAILY [facility]; Protocol Last Admin: 03/04/23 08:31 Dose: 25 mg Documented By: JAGJIT Valsartan (Valsartan 40 Mg Tablet) 20 mg PO BID [facility]; Protocol Warfarin Sodium (Warfarin Sodium 2.5 Mg Tablet) 5 mg PO DAILY@1800 [facility] Labs 03/01/23 06:18 03/04/23 08:23 Labs: Laboratory Results - last 24 hr 03/03/23 03/03/23 03/04/23 16:40 20:51 06:11 Hold Purple Top SEE NOTE PT 31.0 H INR 2.5 H Anion Gap 18 Estim Creat Clear Calc Estimated GFR POC Glucose 277 H 289 H Random Glucose Calcium Magnesium B-Natriuretic Peptide 03/04/23 03/04/23 03/04/23 06:11 06:11 06:11 Hold Purple Top PT INR Anion Gap 17 Estim Creat Clear Calc 36.6 35.5 Estimated GFR 28 27 POC Glucose Random Glucose 222 H Calcium Magnesium B-Natriuretic Peptide 03/04/23 03/04/23 03/04/23 06:11 06:11 06:53 Hold Purple Top PT INR Anion Gap Estim Creat Clear Calc Estimated GFR POC Glucose 201 H Random Glucose 225 H Calcium 8.7 8.7 Magnesium 2.1 B-Natriuretic Peptide 03/04/23 03/04/23 03/04/23 08:23 09:47 11:19 Hold Purple Top PT INR Anion Gap 17 Estim Creat Clear Calc 37.1 Estimated GFR 28 POC Glucose 190 H 206 H Random Glucose 211 H Calcium 8.8 Magnesium B-Natriuretic Peptide 123 H Microbiology Microbiology Results: Microbiology 03/01/23 Unknown Urine Culture - Final Urine clean catch - Clean Catch Midstream Enterobacter cloacae complex Assessment and Plan (1) Acute on chronic systolic heart failure: Status: Acute Plan 68-year-old female with a PMH significant for?HFrEF with EF of 15-20%, tachycardia induced cardiomyopathy, HLD, persistent AFib on Coumadin s/p , CAD, CKD 3, IBS,hx of endometrial carcinoma, among others who presents to the ED with?chest pain and SOB x4 weeks, worse this morning. Pt will be admitted to the hospital for treatment and further evaluation of acute CHF exacerbation requiring lasix drip. Acute HFrEF exacerbation Pt with worsening SOB, chest pain, LLE, weight gain since Thanksgiving CXR with evidence of Increased bilateral pulmonary vascular markings likely congestion. sob , has 2+ leg edema Echocardiogram 03/02/23:showed worseing EF of 15-20%, down from 30-35%. plan: i/o- she is neg3.3liter Daily weights, low-salt diet continue Lasix drip @ 10mg/hr and spironolactone,valsartan added cardiology following Persistent Afib hr rate controlled ,EKG with likely atrial flutter Continue amiodarone ,carvedilol and coumadin,s/p cardioversion-successful conversion to nsr. INR therapeutic .Monitor on telemetry ckd-stage 3: at baseline Patient's creatinine 2.15, up from baseline around 1.50 Likely cardiorenal, cr improving 1.9 Treat as above with diuretics Hold losartan Monitor BMP Mild hyponatrememia Sodium 133 at time of presentation due to fluid overload improved with diuresis. Follow BMP Atypical chest pain:resolved. Likely secondary to CHF exacerbation EKG without significant ischemic changes, initial troponin flat. Monitor on telemetry HTN BP a little soft, will be aggressively diuresed Will hold carvedilol, losartan HLD Continue statin Non insulin dependent diabetes type 2 SSI Diabetic diet Full Code DVT Prophylaxis: On warfarin ongoing hospitalization need: patient with multiple issues afib and with chf, boderline bp as well mena on ckd -treatment of?acute CHF exacerbation. reuiring cardioversion, Patient is currently on a Lasix drip and also amiodarone drip due to aflutter, and will need close monitoring of vitals and chemistries, as well as specialist consultation and possible need cardioversion. Quality Stroke Does the patient have a stroke diagnosis?: No VTE Prior VTE?: No VTE Risk Level:: Medical - moderate - high VTE Device Contraindication: Treatment Not Indicated VTE Drug Contraindication: N/A - Med Ordered
[2023-03-04 16:06] LABS: Glucose, Whole Blood 176 mg/dL (60-115)
[2023-03-04] MEDS: Benzonatate 100 MG CAPSULE PO (16:06)
[2023-03-04] MEDS: Warfarin Sodium 2.5 MG TABLET 5 MG PO (17:36)
[2023-03-04 19:36] LABS: Glucose, Whole Blood 269 mg/dL (60-115)
[2023-03-05 03:05] VITALS: BP 100/55; PULSE 70; RESP 20; TEMP 36.2; O2SAT 95
[2023-03-05 05:44] VITALS: BMI 38.5
[2023-03-05 07:00] VITALS: BP 107/67; PULSE 69; RESP 18; TEMP 36.1; O2SAT 97
[2023-03-05 07:49] LABS: INTERNATIONAL NORM RATIO 2.5 (0.9-1.1); Prothrombin Time 29.9 SEC (11.1-13.3)
[2023-03-05 07:55] LABS: Anion Gap 18 (12-20); Blood Urea Nitrogen 42 mg/dL (9-16); Calcium 9.3 mg/dL (8.4-10.2); Carbon Dioxide 26 mmol/L (22-29); Chloride 97 mmol/L (96-108); Creatinine Clr Calc Pharmacy 33.2; Estimated Glomerular Filt Rate 25; Glucose Random 238 mg/dL (60-115); Magnesium 2.2 mg/dL (1.6-2.6); Potassium 3.7 mmol/L (3.3-5.1); Sodium 137 mmol/L (135-145)
[2023-03-05 08:02] LABS: B Type Natriuretic Peptide 101 pg/mL (<100)
[2023-03-05 08:10] LABS: Glucose, Whole Blood 237 mg/dL (60-115)
[2023-03-05] MEDS: Furosemide 200 MG in 0.9 % Sodium Chloride 80 ML IVCONT (08:20)
[2023-03-05] MEDS: Insulin Lispro 100 UNIT/ML 3 ML VIAL SUBCUT ×2 (08:28→12:47)
[2023-03-05] MEDS: 0.9 % Sodium Chloride Flush 3 ML SYRINGE IVFLUSH (08:28)
[2023-03-05] MEDS: Atorvastatin Calcium 40 MG TABLET PO (08:29)
[2023-03-05] MEDS: Spironolactone 25 MG TABLET PO (08:29)
[2023-03-05] MEDS: Magnesium Oxide 400 MG TABLET PO (08:29)
[2023-03-05] MEDS: carvediloL 3.125 MG TABLET PO (08:29)
[2023-03-05 09:53] VITALS: O2SAT 96
--- NOTE | 2023-03-05 10:39 | HO.POSTANES ---
Post Anesthesia Evaluation Post Anesthesia Evaluation Date of Service: 03/05/23 Vital Signs: Vital Signs Temp Pulse Resp BP Pulse Ox O2 Del Method 03/05/23 07:00 96.9 F 69 18 107/67 97 Room Air 03/05/23 03:05 97.1 F 70 20 100/55 L 95 Room Air 03/04/23 23:00 97.4 F 67 20 101/64 97 Room Air Anesthesia: General Mental Status: Awake Pain Control: Satisfactory Nausea/Vomiting: None Hydration: Adequate Anesthesia-Related Issues: No Anes. Related Issues
[2023-03-05 11:00] VITALS: BP 102/66; PULSE 67; RESP 18; TEMP 36.2; O2SAT 96
--- NOTE | 2023-03-05 11:01 | P.DS_ITS ---
DS: Providers Provider Date of Service: 03/05/23 Date of admission: 03/01/23 12:28 Primary care physician: Lily Menjivar MD Consults: 03/01/23 10:36 Consult to Cardiology Routine Consulting Provider: [facility] Reason for consultation: CHF Has provider been notified: Yes DS: Diagnosis Discharge Diagnosis (1) Acute on chronic systolic heart failure: Status: Acute DS: Summary Hospital Course Hospital Course: admission HPI Chief Complaint: SOB Pt is a 68-year-old female with a PMH significant for?HFrEF with EF of 15-20%, tachycardia induced cardiomyopathy, HLD, persistent AFib on Coumadin s/p , CAD, CKD 3, IBS,hx of endometrial carcinoma, among others who presents to the ED with?chest pain and SOB x4 weeks, worse this morning. Patient states that symp toms began around when she began experiencing central chest pain, shortness of breath, palpitations, and increased lower leg edema. Also has experienced intermittent lightheadedness and dizziness. Patient's pain is nonradiating, substernal, and she describes it as feeling ?like someone punched me?. Waxes and wanes without any clear precipitating or alleviating factors, but still persistent the past 3-4 weeks. Also experiencing increased lower leg edema and swelling in her belly, endorses a 15-20 lb weight gain during this time. Patient went to Cardiology Clinic yesterday and received an echocardiogram which showed ejection fraction of 15-20%, worsened from EF of 30-35% on 08/01/2022. Patient was going to return to Cardiology office on Friday, however this morning patient's chest pain and shortness of breath worsened to where she felt like she could not breathe and thus presented to the ED for further evaluation and treatment. In the ED pt was afebrile but tachycardic up to 107, soft BP of 91/52, satting at 96% on 2 L NC. Labs were significant for sodium 133, BUN 43, creatinine 2.15, random glucose 342, initial troponin 8.4 with repeat flat at 12.9, BNP 151. INR therapeutic at 2.8. Respiratory panel pending. CXR showed increased bilateral pulmonary vascular markings likely congestion with no acute consolidation seen. EKG demonstrated AFib with RVR of 107 and chronic LBBB. Pt was treated with furosemide 80 mg IV x2 doses, and then placed on a Lasix drip. Pt will be admitted to the hospital for treatment and further evaluation of acute CHF exacerbation requiring lasix drip. Hospial course Patient presented with shortness of breath, and she was diagnosed with symptomatic atrial flutter, contributing to an exacerbation of her chronic systolic heart failure. The acute heart failure was effectively managed with an intravenous diuretic drip, resulting in a good urine output and an improvement in symptoms. Her fluid balance is currently negative 3.5 liters. She will be transitioned back to her home dosage of Bumex. The symptomatic atrial flutter was successfully treated with cardioversion, restoring her heart rhythm to sinus rhythm. To maintain this rhythm, she was loaded with intravenous amiodarone and remains in sinus rhythm. She will continue amiodarone at a dosage of 400mg daily for one week, followed by 200mg daily thereafter. Additionally, she will continue taking her Coreg. Other issues including CKD3, mild Hyponatremia, HTN, HLD, diabetes are stable and will continue prior medication without any changes at this time. Final diagnoses: Acute on chronic systolic heart failure Paroxysmal Atrila flutter CKD 3 HTN Diabetes HLD HypOnatremia Time Attestation Discharge coordination time: Greater than 30 minutes Quality: Safe Use of Opioids Does Pt have an Active Cancer Diagnosis on the Problem List?: No Quality: Stroke Does the patient have a stroke diagnosis?: No Physical Exam Vital Signs: Vital Signs: Last Vital Signs Temp 96.9 F 03/05/23 07:00 Pulse 69 03/05/23 07:00 Resp 18 03/05/23 07:00 BP 107/67 03/05/23 07:00 Pulse Ox 97 03/05/23 07:00 O2 Del Method Room Air 03/05/23 07:00 O2 Flow Rate 2 03/04/23 10:45 Oxygen Flow Rate 2 03/01/23 06:10 BMI result Body Mass Index 38.5 DS: Data Data Completed and Pending Completed studies during hospitalization [Text1]: Procedures [facility] Cardiac Rhythm, Single (04/27/22) Labs on day of discharge: Laboratory Results - last 24 hr 03/04/23 03/04/23 03/04/23 11:19 15:59 19:23 PT INR Sodium Potassium Chloride Carbon Dioxide Anion Gap BUN Creatinine Estim Creat Clear Calc Estimated GFR POC Glucose 206 H 176 H 269 H Random Glucose Calcium Magnesium B-Natriuretic Peptide 03/05/23 03/05/23 06:59 07:40 PT 29.9 H INR 2.5 H Sodium 137 Potassium 3.7 Chloride 97 Carbon Dioxide 26 Anion Gap 18 BUN 42 H Creatinine 1.97 H Estim Creat Clear Calc 33.2 Estimated GFR 25 POC Glucose 237 H Random Glucose 238 H Calcium 9.3 Magnesium 2.2 B-Natriuretic Peptide 101 H Discharge Plan Discharge Anticipated Discharge Date/Time: 03/05/23 10:54 Patient Disposition: Home, Self-Care Discharge Diagnosis: Acute on chronic systolic heart failure, Aflutter Referrals: Lily Menjivar MD [Primary Care Provider] - 1 Week Discharge Medications: New amiodarone 200 mg tablet 200 - 400 mg PO DAILY Qty: 45 0RF Rx Instructions: Take 2 tabs (400 mg) daily for 7 days, then 1 tab (200 mg) daily thereafter Continued (DME) FreeStyle Lite Strips Strip See Rx Instructions .Route Qty: 100 5RF Rx Instructions: As directed check sugar twice a day before meals (DME) insulin syringe-needle U-100 [BD Veo Insulin Syringe UF] 1/2 mL 31 gauge x 15/64 syringe See Rx Instructions .Route Qty: 200 1RF Rx Instructions: As directed twice a day (DME) scale-accommodate weight 300 lbs See Rx Instructions .Route .MEDSUPPLY Qty: 1 0RF Rx Instructions: As directed carvedilol 6.25 mg tablet 6.25 mg PO BID 90 Days Qty: 180 2RF atorvastatin 40 mg tablet 40 mg PO DAILY Qty: 90 3RF spironolactone 25 mg tablet 25 mg PO DAILY Qty: 60 6RF bumetanide 2 mg tablet 3 mg PO Q2D@0900 bumetanide 2 mg tablet 3 mg PO Q2D@2100 bumetanide 2 mg tablet 2 mg PO Q2D@2100 warfarin 2.5 mg Tablet 2.5 mg PO WE@1800 bumetanide 2 mg tablet 2 mg PO Q2D@0900 warfarin 2.5 mg tablet 5 mg PO SUMOTUTHFRSA@1800 Protocol: Dose Management Condition: Friday (Week One) Dose/Route: 5 mg Instruction: 2 x 2.5 mg tablets Condition: Friday Dose/Route: 5 mg Instruction: 2 x 2.5 mg tablets Condition: Friday Dose/Route: 5 mg Instruction: 2 x 2.5 mg tablets Condition: Friday Dose/Route: 2.5 mg Instruction: 1 x 2.5 mg tablet Condition: Dose/Route: 5 mg Instruction: 2 x 2.5 mg tablets Condition: Friday Dose/Route: 5 mg Instruction: 2 x 2.5 mg tablets Condition: Friday Dose/Route: 5 mg Instruction: 2 x 2.5 mg tablets Condition: Friday (Week Two) Dose/Route: 5 mg Instruction: 2 x 2.5 mg tablets Condition: Friday Dose/Route: 5 mg Instruction: 2 x 2.5 mg tablets Condition: Friday Dose/Route: 5 mg Instruction: 2 x 2.5 mg tablets Condition: Friday Dose/Route: 2.5 mg Instruction: 1 x 2.5 mg tablet Condition: Dose/Route: 5 mg Instruction: 2 x 2.5 mg tablets Condition: Friday Dose/Route: 5 mg Instruction: 2 x 2.5 mg tablets Condition: Friday Dose/Route: 5 mg Instruction: 2 x 2.5 mg tablets Protocol Text: Adjustment Start Date: Friday01/31/23 INR Value: 2.8 INR Date: 01/31/23 Recheck Date: 02/14/23 Additional Instructions: INR is in range continue usual dosing balance greens and reds in diet, be consistent, be aware of the reds that raise over Thanksgi Rx Instructions: green tablet , pt allergic to red dye Trulicity 3 mg/0.5 mL pen injector 3 mg subcut FR@0900 insulin lispro 100 unit/mL insulin pen 12 unit subcut TIDAC clotrimazole [Athlete's Foot (clotrimazole)] 1 % cream 1 appl topical BID 28 Days Qty: 45 0RF (DME) blood-glucose meter [FreeStyle Lite Meter] Kit See Rx Instructions .Route Rx Instructions: As directed (DME) lancets [FreeStyle Lancets] 28 gauge misc See Rx Instructions .Route Rx Instructions: As directed (DME) pen needle, diabetic [BD Ultra-Fine Short Pen Needle] 31 gauge x 5/16 needle See Rx Instructions .ROUTE .COMPLEX Dose Instruction: USE 1 PEN NEEDLE ONCE DAILY WITH LANTUS INSULIN Rx Instructions: USE 4 times a day albuterol sulfate 90 mcg/actuation HFA aerosol inhaler 180 mcg inhalation Q6H PRN (Reason: Shortness Of Breath Or Wheezing) losartan 25 mg tablet 25 mg PO DAILY nystatin [Nystop] 100,000 unit/gram powder 1 appl topical BID PRN (Reason: Rash) Discontinued amiodarone 200 mg tablet 200 mg PO DAILY Qty: 30 5RF Rx Instructions: NO RED DYE Discharge Orders: Discharge Order (Routine); Ordered 03/05/23 Ordered By: Mik Gardner Diet: Diabetic diet Activity on Discharge: As tolerated Stand Alone Forms: Patient Portal Discharge page Care Plan Goals: Control of atrial fibrilation and prevent heart failure exacerbation Health Concerns: acute on chronic systolic heart failure atrial flutter Plan of Treatment: continue taking all your previous medications as before, except amiodarone. Take amiodarone 400 mg twice daily for 1 week, then 200 mg daily there after follow up with your Doctor in a week, follow up with Dr. Valdez, office will call you for a follow up appointment Assessment: See above
--- NOTE | 2023-03-05 11:18 | PM.PNCARD ---
Subjective Subjective Date of Service: 03/05/23 Principal diagnosis: Atrial flutter, heart failure with reduced ejection fraction Interval history: Patient feeling better. Breathing is much improved. Yesterday underwent TERRANCE guided cardioversion maintains rhythm. Has been on IV amiodarone drove without any significant bradycardia. Denies any lightheadedness, syncope. Breathing is lot better. Review of Systems Constitutional: Reports no additional constitutional complaints Cardiovascular: Reports no additional cardiovascular complaints Respiratory: Reports no additional respiratory complaints Genitourinary: Reports no additional female genitourinary complaints Physical Exam Vital Signs: Last Vital Signs Temp 96.9 F 03/05/23 07:00 Pulse 69 03/05/23 07:00 Resp 18 03/05/23 07:00 BP 107/67 03/05/23 07:00 Pulse Ox 96 03/05/23 09:53 O2 Del Method Room Air 03/05/23 09:53 O2 Flow Rate 2 03/04/23 10:45 Oxygen Flow Rate 2 03/01/23 06:10 BMI result Body Mass Index 38.5 Const General: cooperative, alert and awake Nutritional Appearance: obese Orientation/consciousness: patient oriented x3 Neck Neck: Yes trachea midline, Yes supple and Yes JVD Resp Effort & Inspection: decreased respiratory effort Cardio Jugular venous distension: JVD Rhythm: regular rhythm Heart sounds: S1 normal heart sound present, S2 normal heart sound present, no click, no gallops, no murmurs and no rubs GI Inspection: Yes distended Auscultation: normal bowel sounds Skin General skin exam: no rashes or lesions noted Neuro General: patient oriented x3 and no focal motor deficits Extrem General: No clubbing, No cyanosis and Yes edema Objective Labs and Meds 03/01/23 06:18 03/05/23 06:59 Lab results: Laboratory Results - last 24 hr 03/04/23 03/04/23 03/04/23 11:19 15:59 19:23 PT INR Sodium Potassium Chloride Carbon Dioxide Anion Gap BUN Creatinine Estim Creat Clear Calc Estimated GFR POC Glucose 206 H 176 H 269 H Random Glucose Calcium Magnesium B-Natriuretic Peptide 03/05/23 03/05/23 06:59 07:40 PT 29.9 H INR 2.5 H Sodium 137 Potassium 3.7 Chloride 97 Carbon Dioxide 26 Anion Gap 18 BUN 42 H Creatinine 1.97 H Estim Creat Clear Calc 33.2 Estimated GFR 25 POC Glucose 237 H Random Glucose 238 H Calcium 9.3 Magnesium 2.2 B-Natriuretic Peptide 101 H Progress Note: A&P Assessment and plan (1) Acute on chronic systolic heart failure: Status: Acute Assessment and Plan: Decompensated congestive heart failure due to recurrent atrial flutter and development of severe LV systolic dysfunction. At this point time she is doing well with after diuresis. Intake and output chart sign not accurate in the last few days. Patient can be discharged home on usual dose of Bumex as well as neurohormonal modulation with Coreg, losartan as well as spironolactone therapy. Heart failure management discussed. She requires of sleep study as soon as possible as there is high likelihood of obstructive sleep apnea would benefit from treatment for the same. I think also rhythm management needs to be pursued aggressively. (2) Atrial flutter: Status: Acute Assessment and Plan: Atrial flutter status post repeat cardioversion. Has done well with rhythm management in the past. At this point time with bumper amiodarone to 400 mg daily for a week and go down to 200 mg after that. Continue full oral anticoagulation warfarin. Target INR between 2 and 3. Case has been discussed with EPS to address ablation, patient will benefit from that. Also workup for sleep apnea as soon as possible and treatment if she has significant sleep apnea which is highly likely. Will follow up in the clinic in 7-10 days. Thank you for allowing me to partake in her care Time Spent With Patient Time: Total time managing care of this patient today ____ minutes. Progress Note: Quality Stroke Does the patient have a stroke diagnosis?: No Procedures Date of Service Date of Service: 03/05/23
[2023-03-05 11:26] LABS: Glucose, Whole Blood 259 mg/dL (60-115)
--- NOTE | 2023-03-05 13:01 | MHC.CM.PN ---
Addendum entered by Elaina aKy 03/05/23 13:16: Second IMM given 03/05. Original Note: Pt is medically cleared for D/C home self-care, pts daughter to transport her home.
== END 2023-03-05 13:48 | disposition home or self-care (01) | DRG 308 ==
LOC: HO.ED 10:38 → HO.EDOVER 12:35 → HO.IMC 19:55
PROVIDERS: Internal Medicine; Internal Medicine Cardiovascular Disease; Physician Assistant Medical; Admitting Provider Student in an Organized Health Care Education/Training Program; Emergency Provider Emergency Medicine Emergency Medical Services; PCP Internal Medicine; Visit Provider Internal Medicine
PROC: 5A2204Z Restoration of Cardiac Rhythm, Single (ICD-10-PCS; principal; 2023-03-04 10:00)
DX: I48.92 Unspecified atrial flutter (principal); I50.23 Acute on chronic systolic (congestive) heart failure; I13.0 Hypertensive heart and chronic kidney disease with heart failure and stage 1 through stage 4 chronic kidney disease, or unspecified chronic kidney disease; N17.9 Acute kidney failure, unspecified; E87.1 Hypo-osmolality and hyponatremia; I48.19 Other persistent atrial fibrillation; R79.1 Abnormal coagulation profile; E78.5 Hyperlipidemia, unspecified; I44.7 Left bundle-branch block, unspecified; E11.65 Type 2 diabetes mellitus with hyperglycemia; G47.33 Obstructive sleep apnea (adult) (pediatric); I25.10 Atherosclerotic heart disease of native coronary artery without angina pectoris; N18.30 Chronic kidney disease, stage 3 unspecified; E11.22 Type 2 diabetes mellitus with diabetic chronic kidney disease; Z20.822 Contact with and (suspected) exposure to COVID-19; Z85.42 Personal history of malignant neoplasm of other parts of uterus; Z79.4 Long term (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 of insulin; Z79.01 Long term (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 of anticoagulants; Z79.85 Long-term (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 of injectable non-insulin antidiabetic drugs; Z79.899 Other long term (current) drug therapy
CPT/HCPCS: 36415; 71045; 80048; 80053; 81001; 82947; 83735; 83880; 84484; 85027; 85610; 85730; 87086; 87088; 87186; 87633; 92960; 93005; 99285; J0282; J0283; J1940; J2371; J2704

== ENCOUNTER → 2023-03-01 06:36 | Outpatient (BNV) | payer MEDICARE, SELFPAY | PROVIDERS: Emergency Provider Emergency Medicine Emergency Medical Services; PCP Internal Medicine; Visit Provider Internal Medicine Cardiovascular Disease | DX: I50.23 Acute on chronic systolic (congestive) heart failure (principal); I48.92 Unspecified atrial flutter; I48.19 Other persistent atrial fibrillation | CPT/HCPCS: 92960; 93010; 99223; 99232; 99233 ==

== ENCOUNTER 2023-03-01 12:28 | Outpatient (BNV) | payer MEDICARE, SELFPAY | END 2023-03-04 10:29 | PROVIDERS: Admitting Provider Student in an Organized Health Care Education/Training Program; Emergency Provider Emergency Medicine Emergency Medical Services; PCP Internal Medicine; Visit Provider Internal Medicine Cardiovascular Disease | DX: R94.31 Abnormal electrocardiogram [ECG] [EKG] (principal) | CPT/HCPCS: 93010 ==

== ENCOUNTER → 2023-03-01 12:28 | Outpatient (BNV) | payer MEDICARE, SELFPAY | PROVIDERS: Admitting Provider Student in an Organized Health Care Education/Training Program; Emergency Provider Emergency Medicine Emergency Medical Services; PCP Internal Medicine; Visit Provider Student in an Organized Health Care Education/Training Program | DX: I50.23 Acute on chronic systolic (congestive) heart failure (principal) | CPT/HCPCS: 99223; 99232; 99233; 99239 ==

== ENCOUNTER 2023-03-06 14:52 | Outpatient (AMB) | payer MEDICARE, SELFPAY ==
--- NOTE | 2023-03-06 14:54 | A.OFFVIS_ITS ---
Intake Vital Signs 03/06/23 14:55 Height 5 ft 5 in Weight 235 lb 7.259 oz BMI 39.2 BP 100/62 Blood Pressure Location Lt brachial Position Sitting Pulse 69 Pulse Source Monitor [place] [facility] [place] Tester Required: No Allergies red dye [Red Dye] Allergy (Severe, Verified 03/06/23 14:58) HIVES,THROAT CLOSES FROM RED FOOD DYE Medication List - Last Reconciled 03/06/23 by NUNO Rivas albuterol sulfate 90 mcg/actuation 180 mcg inhalation Q6H PRN amiodarone 200 - 400 mg (1 - 2 x 200 mg) PO DAILY atorvastatin 40 mg PO DAILY blood sugar diagnostic (FreeStyle Lite Strips) As directed check sugar twice a day before meals blood-glucose meter (FreeStyle Lite Meter kit) As directed bumetanide 3 mg PO Q2D@0900 bumetanide 2 mg PO Q2D@0900 bumetanide 3 mg PO Q2D@2100 bumetanide 2 mg PO Q2D@2100 carvedilol 6.25 mg PO BID 90 days clotrimazole 1% (Athlete's Foot (clotrimazole)) 1 appl topical BID 4 weeks dulaglutide (Trulicity) 3 mg subcut FR@0900 insulin lispro 12 units subcut TIDAC insulin syringe-needle U-100 (BD Veo Insulin Syringe Ultra-Fine) As directed twice a day lancets (FreeStyle Lancets) As directed losartan 25 mg PO DAILY nystatin (Nystop) 1 appl topical BID PRN pen needle, diabetic (BD Ultra-Fine Short Pen Needle) USE 4 times a day [scale-accommodate weight 300 lbs As directed] spironolactone 25 mg PO DAILY warfarin 5 mg See Protocol PO SUMOTUTHFRSA@1800 warfarin 2.5 mg PO WE@1800 [place] [facility] [place] Details July is a 68-year-old female past medical history of morbid obesity, diabetes, hyperlipidemia, chronic kidney disease, coronary artery disease, ischemic cardiomyopathy, heart failure with reduced EF, paroxysmal atrial fibrillation who was recently admitted to [facility] with increased shortness of breath and treated for decompensated heart failure. She was diuresed 3.5 L. She did have atrial flutter requiring cardioversion. Her amiodarone dose was temporarily increased. She was discharged from the hospital yesterday and now presents for follow-up. Today she reports that she continues to have some shortness of breath. She short of breath just walking from room to room in her house. She describes herself is mostly sedentary. Her prior leg edema has nearly resolved. She is not noticing any heart palpitations. She denies chest discomfort at rest or with activity. No lightheadedness, presyncope, syncope, falls. No PND, orthopnea. Taking all meds as directed. No bleeding issues reported. Daughter is present. [facility] Medical History History of uterine cancer Personal history of malignant neoplasm of other parts of uterus Persistent atrial fibrillation Tinea pedis History of cardioversion Cardiomyopathy Coronary arteriosclerosis Ischemic cardiomyopathy Colonoscopy refused Incomplete left bundle branch block (LBBB) Endometrial adenocarcinoma Post-menopausal bleeding Type 2 diabetes mellitus with hyperglycemia, with long-term current use of insulin Obesity due to excess calories Diabetes type 2, uncontrolled Vitamin D deficiency Mixed dyslipidemia Papanicolaou smear declined Mammogram declined Osteoarthritis, knee Diabetic neuropathy History of esophagitis Mild intermittent asthma Uterine fibroid History of basal cell carcinoma Osteonecrosis of right hip Hiatal hernia History of cholelithiasis Morbid obesity Essential hypertension Type 2 diabetes mellitus with hyperglycemia, without long-term current use of insulin Irritable bowel syndrome (IBS) Surgical History S/P CLARE-BSO (total abdominal hysterectomy and bilateral salpingo-oophorectomy) S/P cardiac catheterization History of hysterectomy H/O hernia repair Hx of section History of hip surgery Hx of colonoscopy History of cholecystectomy Family History Father Myocardial infarction Cardiovascular disease Mother Diabetes mellitus Essential hypertension Daughter Anxiety disorder Mental health disorder Son Mental health disorder Social History Household Members: Spouse and Children Housing: House Are you a primary hospice care sales consultant to a significant other at home: No Do you presently have visiting nurse or other home services: No Alcohol intake: never Comment: pt refuses alarms Patient Tobacco Use Status: Never used Tobacco e-Cigarette/Vaping Use: Never Used Second Hand Smoke Exposure: No Advance Directives Date on File: 04/08/22 service: No Current occupational status: retired Current occupational exposures/hazards: No Cognitive needs: No Hearing needs: No Vision needs: Yes Review of Systems Const All systems reviewed & are unremarkable except as noted in HPI and below ENT Denies dizziness Card Denies chest pain, Denies chest pain at rest, Denies chest pain with activity, Denies rapid heart rate, Denies pedal edema, Denies edema, Denies leg edema, Denies lightheadedness, Denies palpitations, Reports dyspnea, Reports dyspnea on exertion and Denies orthopnea Resp Denies cough, Reports dyspnea and Reports dyspnea on exertion GI Denies hematochezia and Denies change in stool character Musc Denies abnormal gait, Denies limited range of motion, Denies muscle cramps, Reports muscle weakness, Denies numbness, Denies radiating pain into limb, Denie s stiffness and Denies tingling Neuro Denies abnormal gait, Denies dizziness, Denies numbness and Denies tingling Endo Denies palpitations Physical Exam Vital Signs: Last Vital Signs Pulse 69 03/06/23 14:55 BP 100/62 03/06/23 14:55 BMI result Body Mass Index 39.2 Const General: cooperative, comfortable and no acute distress Orientation/consciousness: patient oriented x3 Neck Neck: Yes normal visual inspection Resp Effort & Inspection: normal respiratory effort Auscultation: clear to auscultation bilaterally, no crackles, no rales, no rhonchi and no wheezes Cardio Jugular venous distension: no JVD Rate: regular rate Rhythm: regular rhythm Heart sounds: S1 normal heart sound present, S2 normal heart sound present, no murmurs and no rubs Neuro General: patient oriented x3 Extrem General: Yes normal to inspection and No no pedal edema Psych Appearance: grossly normal Mental Status: mental status grossly normal Speech and movement: Normal speech and movement present Office Procedures EKG Details: Today, read by me, normal sinus rhythm, left axis deviation, left bundle branch block, rate 69, JT index 105 [id number], Complete Assessment & Plan Assessment & Plan (1) Paroxysmal atrial fibrillation: Code(s): I48.0 - Paroxysmal atrial fibrillation Plan: History paroxysmal atrial fibrillation. Currently suppressed with amiodarone 200 mg daily. She is also on carvedilol 6.25 mg b.i.d.. She did recent admission to [facility] with increasing shortness of breath and treated for decompensated heart failure. She was found to have atrial flutter which did require cardioversion on 03/04/2023. Her amiodarone dose was increased to 400 mg daily for 1 week then back to 200 mg daily. Today she presents for follow-up after being discharged from the hospital yesterday. Her EKG showing normal sinus rhythm, left axis deviation, left bundle branch block, JT index 105, rate 69. Left bundle branch block is not new for her. She has been referred to electrophysiology for ablation. She tells me she has an appointment on September 23. She has a sleep study already ordered and has that scheduled for sometime in March. Dr. Storey had previously ordered cardiac rehab for her due to cardiomyopathy. She has not started this. At present she describes shortness of breath and does not feel ready to begin exercise. At present will continue current med management. , including amiodarone, carvedilol and Coumadin for anticoagulation. [place] [facility] [place]. INR goal 2-3. Cardiology follow-up in 6-8 weeks which should be post EP eval and sleep study. (2) Coronary arteriosclerosis: Code(s): I25.10 - Atherosclerotic heart disease of [place] coronary artery without angina pectoris Plan: Echocardiogram last year had shown reduced EF and wall motion abnormality. No cardiac history however multiple cardiac risk factors. She then underwent a nuclear stress test that was equivocal for mild apical and basal inferior lateral ischemia, EF 30% with stress and 35% with rest. Last echocardiogram done 08/01/2022 shows EF 30-35%, abnormal diastolic function, inferior septal wall, basal inferior segment akinetic, apex segment dyskinetic, normal RV. She ultimately had cardiac catheterization on 11/06/2021 showing moderate to severe coronary artery disease. 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 She was managed medically at that time and maintained on atorvastatin, carvedilol, losartan, isosorbide. She is not on aspirin as she is on Coumadin. At present she is not having chest discomfort at rest or with activity. She does have shortness of br eath however was just discharged from the hospital yesterday. She likely has some deconditioning. She does not appear grossly fluid overloaded on exam. Continue current med management. Instructed on light activities only. Signs and symptoms of angina reviewed. ED care if needed for symptoms. (3) Current use of anticoagulant therapy: Code(s): Z79.01 - [facility]FP (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 of anticoagulants Plan: On Coumadin (4) HFrEF (heart failure with reduced ejection fraction): Code(s): I50.20 - Unspecified systolic (congestive) heart failure Plan: As above (5) Left bundle branch block: Code(s): I44.7 - Left bundle-branch block, unspecified Plan: Noted on EKGs (6) Obesity, Class II, BMI 35-39.9: Code(s): E66.9 - Obesity, unspecified Plan: BMI 39.2 (7) S/P cardiac catheterization: Comment: 11/06/2021, lad proximal 50% stenosis, mid 50% stenosis, left circumflex moderate diffuse disease, mid circumflex 100% stenosis, 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[employer]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 OFFICER, RCA, right PDA proximal 70% stenosis, ramus proximal 65% stenosis Code(s): Z98.890 - Other specified postprocedural states Plan: As above (8) Hospital discharge follow-up: Code(s): Z09 - Encounter for follow-up examination after completed treatment for conditions other than malignant neoplasm Plan: As above, discharged yesterday Coding Level of Care Code Est Pt Level 4 (34054) Diagnoses Paroxysmal atrial fibrillation I48.0 Coronary arteriosclerosis I25.10 Current use of anticoagulant therapy Z79.01 HFrEF (heart failure with reduced ejection fraction) I50.20 Left bundle branch block I44.7 Obesity, Class II, BMI 35-39.9 E66.9 S/P cardiac catheterization Z98.890 Hospital discharge follow-up Z09 CPT Codes EKG - CPT: [id number], Complete ([id number]) Time Spent (min) 28
[2023-03-06 14:55] VITALS: BP 100/62; PULSE 69; BMI 39.2
== END 2023-03-06 15:22 | disposition home or self-care (01) ==
PROVIDERS: PCP Internal Medicine; Visit Provider Nurse Practitioner Family
DX: I48.0 Paroxysmal atrial fibrillation (principal); I25.10 Atherosclerotic heart disease of native coronary artery without angina pectoris; Z79.01 Long term (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 of anticoagulants; I50.20 Unspecified systolic (congestive) heart failure; I44.7 Left bundle-branch block, unspecified; E66.9 Obesity, unspecified; Z98.890 Other specified postprocedural states; Z09 Encounter for follow-up examination after completed treatment for conditions other than malignant neoplasm
CPT/HCPCS: 93010; 99214

== ENCOUNTER → 2023-03-06 14:52 | Outpatient (BNVA) | payer MEDICARE, SELFPAY | PROVIDERS: PCP Internal Medicine; Visit Provider Nurse Practitioner Family | DX: Z09 Encounter for follow-up examination after completed treatment for conditions other than malignant neoplasm (principal); I48.0 Paroxysmal atrial fibrillation; I25.10 Atherosclerotic heart disease of native coronary artery without angina pectoris; I50.20 Unspecified systolic (congestive) heart failure; I44.7 Left bundle-branch block, unspecified; E66.9 Obesity, unspecified; Z79.01 Long term (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 of anticoagulants; Z98.890 Other specified postprocedural states; Z68.39 Body mass index [BMI] 39.0-39.9, adult | CPT/HCPCS: 93005; 99212 ==

== ENCOUNTER 2023-03-11 11:06 | Outpatient (AMB) | payer MEDICARE, SELFPAY ==
--- NOTE | 2023-03-11 11:11 | A.OFFPC_ITS ---
Vital Signs 03/11/23 11:13 Height 5 ft 5 in Weight 242 lb BMI 40.3 BP 112/70 Blood Pressure Location Lt brachial Position Sitting Pulse 68 Pulse Source Pulse Oximeter Pulse Oximetry (%) 98 Oxygen Delivery Method Room Air Intake Visit Reasons: HDF, cardiac issues, Intake Note: Pt is here today for her HDF cardiac issues Allergies red dye [Red Dye] Allergy (Severe, Verified 04/10/23 01:12) HIVES,THROAT CLOSES FROM RED FOOD DYE Medication List - Last Reconciled 03/11/23 by Lily Menjivar MD albuterol sulfate 90 mcg/actuation 180 mcg inhalation Q6H PRN amiodarone 200 - 400 mg (1 - 2 x 200 mg) PO DAILY atorvastatin 40 mg PO DAILY blood sugar diagnostic (FreeStyle Lite Strips) As directed check sugar twice a day before meals blood-glucose meter (FreeStyle Lite Meter kit) As directed bumetanide 3 mg PO Q2D@0900 bumetanide 2 mg PO Q2D@0900 bumetanide 3 mg PO Q2D@2100 bumetanide 2 mg PO Q2D@2100 carvedilol 6.25 mg PO BID 90 days clotrimazole 1% (Athlete's Foot (clotrimazole)) 1 appl topical BID 4 weeks dulaglutide (Trulicity) 3 mg subcut FR@0900 insulin lispro 12 units subcut TIDAC insulin syringe-needle U-100 (BD Veo Insulin Syringe Ultra-Fine) As directed twice a day lancets (FreeStyle Lancets) As directed losartan 25 mg PO DAILY nystatin (Nystop) 1 appl topical BID PRN pen needle, diabetic (BD Ultra-Fine Short Pen Needle) USE 4 times a day [scale-accommodate weight 300 lbs As directed] spironolactone 25 mg PO DAILY warfarin 5 mg See Protocol PO SUMOTUTHFRSA@1800 warfarin 2.5 mg PO WE@1800 Tobacco use date assessed: 03/11/23 Fall risk assessment: No Falls in past year Last assessed Fall Risk: 03/11/23 Dental Screening Did you have a dental visit in the last 12 months?: No Was dental information given to patient?: No HPI HDF, cardiac issues, HPI Details 68-year-old lady history of uterine cancer status post TAHBSO, coronary artery disease, chronic kidney disease stage III obesity, 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 She presented at the ER with shortness of breath, diagnosed with symptomatic atrial flutter, contributing to an exacerbation of her chronic systolic heart failure. She was was effectively managed with an intravenous diuretic drip, resulting in a good urine output and an improvement in symptoms., and was transitioned back to her home dosage of Bumex. The symptomatic atrial flutter was successfully treated with cardioversion, restoring her heart rhythm to sinus rhythm. . She was loaded with intravenous amiodarone, and remains in sinus rhythm. She will continue amiodarone at a dosage of 400mg daily for one week, followed by 200mg daily thereafter, andl continued on Coreg. She has been seen by Cardiology after discharge and has been referred to electrophysiology for ablation with appointment for 03/26/2023 already scheduled. She has a sleep study already ordered and has that scheduled for sometime in March as well. Dr. Storey had previously ordered cardiac rehab for her due to cardiomyopathy, but has not started this as she still gets short of breath on exertion and does not feel ready to begin exercise. She was continued on amiodarone, carvedilol , losartan, Bumex, spironolactone, and Coumadin for anticoagulation, follows with [facility] anticoagulation Clinic, with a goal INR between 2-3. For her diabetes mellitus, patient states that she just started increasing her Trulicity dose to 3 mg once weekly a week ago, only taking lispro 12 units 3 times a day before meals, but not taking her Tresiba and does not check her sugar regularly , due to financial constraints. She had recent eye exam October 2022. Has an upcoming appointment with endocrine clinic tomorrow for follow-up. [facility] Medical History (Updated 04/10/23 @ 01:49 by Lily Menjivar MD) Paroxysmal atrial fibrillation CHF (congestive heart failure) Left bundle branch block History of uterine cancer Personal history of malignant neoplasm of other parts of uterus Tinea pedis History of cardioversion Cardiomyopathy Coronary arteriosclerosis Ischemic cardiomyopathy Colonoscopy refused Incomplete left bundle branch block (LBBB) Endometrial adenocarcinoma Post-menopausal bleeding Type 2 diabetes mellitus with hyperglycemia, with long-term current use of insulin Vitamin D deficiency Mixed dyslipidemia Papanicolaou smear declined Mammogram declined Osteoarthritis, knee Diabetic neuropathy History of esophagitis Mild intermittent asthma History of basal cell carcinoma Osteonecrosis of right hip Hiatal hernia History of cholelithiasis Morbid obesity Essential hypertension Type 2 diabetes mellitus with hyperglycemia, without long-term current use of insulin Irritable bowel syndrome (IBS) Surgical History (Updated 03/13/23 @ 00:03 by Santiago Collins) S/P CLARE-BSO (total abdominal hysterectomy and bilateral salpingo-oophorectomy) S/P cardiac catheterization History of hysterectomy H/O hernia repair Hx of section History of hip surgery Hx of colonoscopy History of cholecystectomy Family History Father Myocardial infarction Cardiovascular disease Mother Diabetes mellitus Essential hypertension Daughter Anxiety disorder Mental health disorder Son Mental health disorder Social History Household Members: Spouse and Children Housing: House Are you a primary emergency care attendant to a significant other at home: No Do you presently have visiting nurse or other home services: No Alcohol intake: never Comment: pt refuses alarms Patient Tobacco Use Status: Never used Tobacco e-Cigarette/Vaping Use: Never Used Second Hand Smoke Exposure: No Advance Directives Date on File: 04/08/22 service: No Current occupational status: retired Current occupational exposures/hazards: No Cognitive needs: No Hearing needs: No Vision needs: Yes Questionnaire Thrive Questionnaire Date Thrive assessed: 03/02/23 HUMAIRA-7 AMB Questionnaire HUMAIRA-7 Date HUMAIRA - 7 assessed: 03/28/22 Source: Developed by Drs. Uriel Falk, Rosie Felipe, Hasmukh Kumar and colleagues, with an educational sandra from [employer]. Review of Systems Const Denies body aches, Denies fatigue, Denies fever(s), Denies frequent falls and Denies lethargy Eyes Denies change in vision ENT Denies dizziness Card Denies chest pain at rest, Denies chest pain with activity, Denies rapid heart rate, Denies leg edema, Denies lightheadedness, Denies palpitations, Reports dyspnea on exertion and Denies orthopnea Resp Denies cough and Reports dyspnea on exertion GI Denies hematochezia and Denies change in stool character Reports nocturia, Denies dysuria, Denies vaginal discharge and Denies vaginal pruritus Musc Denies abnormal gait, Denies limited range of motion, Denies muscle cramps, Reports muscle weakness, Denies radiating pain into limb, Denies stiffness and Denies tingling Skin/Breast Denies lesions and Denies rash Neuro Denies abnormal gait, Denies dizziness, Denies frequent falls and Denies tingling Endo Denies fatigue and Denies palpitations Jace/Lymph Denies easy bleeding and Reports easy bruising Physical exam (Primary Care) Vital Signs: Last Vital Signs Pulse 68 03/11/23 11:13 BP 112/70 03/11/23 11:13 Pulse Ox 98 03/11/23 11:13 Oxygen Delivery Method Room Air 03/11/23 11:13 BMI result Body Mass Index 40.3 Tobacco/Smoking Status: Tobacco use Status Tobacco use date assessed 03/11/23 03/11/23 11:18 Patient Tobacco Use Status Never used Tobacco 03/11/23 11:13 e-Cigarette/Vaping Use Never Used 03/11/23 11:13 Thrive Assessment: Date of Thrive Assessment Date Thrive assessed 03/02/23 03/11/23 11:13 Const General: comfortable, no acute distress, awake, well groomed and other (Accompanied by daughter) Nutritional Appearance: obese Orientation/consciousness: patient oriented x3 HENMT Ears: hearing grossly normal bilaterally and external ears normal General nose exam: Normal external nose present and No nasal discharge present Mouth: oropharynx normal and moist mucous membranes Eyes General: appearance normal, both eyes and all related structures Neck Neck: Yes full ROM, Yes no lymphadenopathy and Yes supple Resp Effort & Inspection: normal respiratory effort and able to speak in complete sentences Auscultation: clear to auscultation bilaterally Cardio Rate: regular rate Rhythm: regular rhythm Heart sounds: S1 normal heart sound present and S2 normal heart sound present GI Inspection: Yes Abdominal panniculus present and Yes obesity Palpation (GI): Soft to palpation, nontender and no guarding Auscultation: normal bowel sounds General: Yes no CVA tenderness Back/Spine/Pelvis Back: no CVA tenderness and No back tenderness Skin Other: Well-healed laparoscopic incision scar on abdomen Dry erythematous patch on lateral aspect of both feet and plantar aspect of both feet as well General skin exam: no rashes or lesions noted Neuro General: patient oriented x3, gait normal, tone normal, moves all extremities, Normal light touch and pain sensation and no focal motor deficits Cognition (Neuro): normal cognition Gait exam (Neuro): Normal gait present Motor exam (neuro): 5/5 motor strength present throughout Extrem Other: Trace ankle swelling General: Yes full ROM, Yes no joint enlargement, Yes no calf tenderness and Yes normal gait Psych Appearance: grossly normal and well kempt Mental Status: mental status grossly normal Speech and movement: Normal speech and movement present Affect: normal affect Attitude: cooperative Thought process: Normal thought process present Thought content: Normal thought content present Results AMB Random Glucose (hemocue) AMB Random Glucose (hemocue) 254 mg/dL Last Edit by Missy Marc CMA on 03/11/23 12:12 AMB Hemoglobin A1c AMB Hemoglobin A1c 9.5 % Last Edit by Missy Marc CMA on 03/11/23 12:36 Results Reviewed Results Reviewed: Laboratory Last Values Random Glu (Clinic) 254 mg/dL 03/11/23 12:10 Hgb A1c (Clinic) 9.5 % (4.0-6.0) H 03/11/23 12:35 Assessment and Plan Assessment & Plan (1) Type 2 diabetes mellitus with hyperglycemia, with long-term current use of insulin: Code(s): E11.65 - Type 2 diabetes mellitus with hyperglycemia; 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 has had Prevnar 20 given in 2021, but patient declines getting flu shot or COVID vaccination (2) Atrial flutter: Code(s): I48.92 - Unspecified atrial flutter Qualifiers: Atrial flutter type: unspecified Qualified Code(s): I48.92 - Unspecified atrial flutter Plan: Status post cardioversion, now maintained in sinus rhythm with amiodarone, currently on anticoagulation with warfarin, followed at [facility] Coumadin clinic (3) Acute kidney injury superimposed on chronic kidney disease: Code(s): N17.9 - Acute kidney failure, unspecified; N18.9 - Chronic kidney disease, unspecified Plan: Resolved, continued on Bumex, spironolactone (4) Mixed dyslipidemia: Code(s): E78.2 - Mixed hyperlipidemia Plan: Fasting lipid panel ordered, currently on atorvastatin 40 mg daily (5) Essential hypertension: Code(s): I10 - Essential (primary) hypertension Plan: Continue losartan, Coreg, spironolactone, Bumex (6) Hospital discharge follow-up: Code(s): Z09 - Encounter for follow-up examination after completed treatment for conditions other than malignant neoplasm (7) Sleep disorder breathing: Code(s): G47.30 - Sleep apnea, unspecified Plan: Has appointment scheduled for sleep study next month (8) Current use of anticoagulant therapy: Code(s): Z79.01 - [facility] (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 of anticoagulants Plan: On warfarin, with goal INR between 2-3. Followed at [facility] Coumadin clinic (9) CKD (chronic kidney disease) stage 3, GFR 30-59 ml/min: Code(s): N18.30 - Chronic kidney disease, stage 3 unspecified Plan: Continued on Bumex and spironolactone (10) HFrEF (heart failure with reduced ejection fraction): Code(s): I50.20 - Unspecified systolic (congestive) heart failure Plan: Currently on Coreg and Bumex and spironolactone (11) Paroxysmal atrial fibrillation: Code(s): I48.0 - Paroxysmal atrial fibrillation Plan: History status post cardioversion, maintained on amiodarone and Coumadin (12) History of uterine cancer: Code(s): Z85.42 - Personal history of malignant neoplasm of other parts of uterus Plan: Status post TAHBSO Orders: Orders AMB Hemoglobin A1c 03/11/23 E11.65 - Type 2 diabetes mellitus with hyperglycemia, Z79.4 - 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 AMB EKG-In Office 03/11/23 I48.92 - Unspecified atrial flutter, R06.02 - Shortness of breath Alanine Aminotransferase 03/11/23 N17.9 - Acute kidney failure, unspecified, N18.9 - Chronic kidney disease, unspecified, I50.23 - Acute on chronic systolic (congestive) heart failure, E11.65 - Type 2 diabetes mellitus with hyperglycemia, Z79.4 - [facility] (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 of insulin, E78.2 - Mixed hyperlipidemia, I10 - Essential (primary) hypertension Hemoglobin A1c 03/11/23 N17.9 - Acute kidney failure, unspecified, N18.9 - Chronic kidney disease, unspecified, I50.23 - Acute on chronic systolic (congestive) heart failure, E11.65 - Type 2 diabetes mellitus with hyperglycemia, Z79.4 - 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, E78.2 - Mixed hyperlipidemia, I10 - Essential (primary) hypertension Basic Metabolic Panel Fasting 03/11/23 N17.9 - Acute kidney failure, unspecified, N18.9 - Chronic kidney disease, unspecified, I50.23 - Acute on chronic systolic (congestive) heart failure, E11.65 - Type 2 diabetes mellitus with hyperglycemia, Z79.4 - 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, E78.2 - Mixed hyperlipidemia, I10 - Essential (primary) hypertension Lipid Panel 03/11/23 N17.9 - Acute kidney failure, unspecified, N18.9 - Chronic kidney disease, unspecified, I50.23 - Acute on chronic systolic (congestive) heart failure, E11.65 - Type 2 diabetes mellitus with hyperglycemia, Z79.4 - 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, E78.2 - Mixed hyperlipidemia, I10 - Essential (primary) hypertension AMB Random Glucose (hemocue) 03/11/23 E11.65 - Type 2 diabetes mellitus with hyperglycemia, Z79.4 - 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 B Type Natriuretic Peptide 03/11/23 N17.9 - Acute kidney failure, unspecified, N18.9 - Chronic kidney disease, unspecified, I50.23 - Acute on chronic systolic (congestive) heart failure, E11.65 - Type 2 diabetes mellitus with hyperglycemia, Z79.4 - [facility] (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 of insulin, E78.2 - Mixed hyperlipidemia, I10 - Essential (primary) hypertension, M79.89 - Other specified soft tissue disorders Aspartate Amino Transferase 03/11/23 N17.9 - Acute kidney failure, unspecified, N18.9 - Chronic kidney disease, unspecified, I50.23 - Acute on chronic systolic (congestive) heart failure, E11.65 - Type 2 diabetes mellitus with hyperglycemia, Z79.4 - 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, E78.2 - Mixed hyperlipidemia, I10 - Essential (primary) hypertension Review Flu Vaccine not done: patient reason (Declined) Coding Level of Care Code Est Pt Level 4 (40829) Diagnoses Type 2 diabetes mellitus with hyperglycemia, with long-term current use of insulin E11.65; Z79.4 Atrial flutter, unspecified type I48.92 Atrial flutter type: unspecified Acute kidney injury superimposed on chronic kidney disease N17.9; N18.9 Mixed dyslipidemia E78.2 Essential hypertension I10 Hospital discharge follow-up Z09 Sleep disorder breathing G47.30 Current use of anticoagulant therapy Z79.01 CKD (chronic kidney disease) stage 3, GFR 30-59 ml/min N18.30 HFrEF (heart failure with reduced ejection fraction) I50.20 Paroxysmal atrial fibrillation I48.0 History of uterine cancer Z85.42
[2023-03-11 11:13] VITALS: BP 112/70; PULSE 68; O2SAT 98; BMI 40.3
== END 2023-03-11 12:41 | disposition home or self-care (01) ==
PROVIDERS: PCP Internal Medicine; Visit Provider Internal Medicine
DX: E11.65 Type 2 diabetes mellitus with hyperglycemia (principal); Z79.4 Long term (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 of insulin
CPT/HCPCS: 82948; 83036; 99214

== ENCOUNTER 2023-03-12 11:37 | Outpatient (AMB) | payer MEDICARE, SELFPAY ==
[2023-03-12 11:44] VITALS: BP 110/72; PULSE 66; BMI 40.4
--- NOTE | 2023-03-12 11:44 | A.OFFVIS_ITS ---
Intake Vital Signs 03/12/23 11:44 Height 5 ft 5 in Weight 242 lb 15.19 oz BMI 40.4 BP 110/72 Blood Pressure Location Lt brachial Position Sitting Pulse 66 Pulse Source Pulse Oximeter Intake Visit Reasons: f/u Type 2 DM Intake Note: Patient presents today to follow up on DMT2. Last Diabetic Eye exam: 10/2022 Last Podiatry Visit:None Random Glucose: 200 mg/dl HgA1C: 9.5% 03/11/23 Bottle House Cleaners Supervisor Required: No Accompanied by: Daughter Allergies red dye [Red Dye] Allergy (Severe, Verified 03/12/23 11:50) HIVES,THROAT CLOSES FROM RED FOOD DYE HPI HPI Comments History of Present Illness Details 68 YO F with PMHx T2DM and a recent diagnosis of endometrial cancer Initially diagnosed with T2DM in 5 years ago. Was initially started on treatment with Metformin but was unable to tolerate this due to GI distress. Current regimen , Trulicity 3 mg once a week and Tresiba 42 units qHS not taking . Humalog 12 units before meals . Glucometer download shows the patient is checking her point cares sporadically. There is only 4 glucose reading in the glucometer Reports low sugars never. Is aware of the rule of 15's to treat hypoglycemia. Family history of T2DM in her Mother and Daughter. Has eyes checked not yearly, Last appt with optho Oct 2022 . Unsure if retinopathy. Has neuropathy, does not see podiatry. Denies nephropathy, on Lisinopril 20 mg PO daily. UAC 19.4 as measured on 09/21/21. Has HLD, on atorvastatin 10 mg PO daily. Last LDL 74 as measured on 09/21/2021. Denies CAD. Has not had diabetes education. Labs: Laboratory Tests 09/21/21 09/21/21 09/27/21 13:14 13:14 13:25 Sodium 134 L Glucose (Clinic) 238 H Hgb A1c (Clinic) AST 10 ALT 13 Triglycerides 340 Cholesterol 183 D LDL Cholesterol, C alc 74 HDL Cholesterol 41 25-OH Vitamin D To mike 23.7 Microalb/Creat Rat io 19.4 09/27/21 13:34 Sodium Glucose (Clinic) Hgb A1c (Clinic) 11.0 H AST ALT Triglycerides Cholesterol LDL Cholesterol, C alc HDL Cholesterol 25-OH Vitamin D To mike Microalb/Creat Rat io PFSH Medical History History of uterine cancer Personal history of malignant neoplasm of other parts of uterus Persistent atrial fibrillation Tinea pedis History of cardioversion Cardiomyopathy Coronary arteriosclerosis Ischemic cardiomyopathy Colonoscopy refused Incomplete left bundle branch block (LBBB) Endometrial adenocarcinoma Post-menopausal bleeding Type 2 diabetes mellitus with hyperglycemia, with long-term current use of insulin Obesity due to excess calories Diabetes type 2, uncontrolled Vitamin D deficiency Mixed dyslipidemia Papanicolaou smear declined Mammogram declined Osteoarthritis, knee Diabetic neuropathy History of esophagitis Mild intermittent asthma Uterine fibroid History of basal cell carcinoma Osteonecrosis of right hip Hiatal hernia History of cholelithiasis Morbid obesity Essential hypertension Type 2 diabetes mellitus with hyperglycemia, without long-term current use of insulin Irritable bowel syndrome (IBS) Surgical History S/P CLARE-BSO (total abdominal hysterectomy and bilateral salpingo-oophorectomy) S/P cardiac catheterization History of hysterectomy H/O hernia repair Hx of section History of hip surgery Hx of colonoscopy History of cholecystectomy Family History Father Myocardial infarction Cardiovascular disease Mother Diabetes mellitus Essential hypertension Daughter Anxiety disorder Mental health disorder Son Mental health disorder Social History Household Members: Spouse and Children Housing: House Are you a primary hospice spiritual care coordinator to a significant other at home: No Do you presently have visiting nurse or other home services: No Alcohol intake: never Comment: pt refuses alarms Patient Tobacco Use Status: Never used Tobacco e-Cigarette/Vaping Use: Never Used Second Hand Smoke Exposure: No Advance Directives Date on File: 04/08/22 service: No Current occupational status: retired Current occupational exposures/hazards: No Cognitive needs: No Hearing needs: No Vision needs: Yes Physical Exam Absence of Cushingoid features. Absence of acromegalic features. Neck exam reveals nl size thyroid about 15 gms. No thyroid nodules palpable. No carotid bruits present. Lungs CTA. Heart S1 S2, Reg R/R. No M/R/ G. Skin exam reveals absence of vitiligo or acanthosis nigricans. Abdominal exam reveals Soft NT/ND with NA BS. No organomegaly present. Neck Other: . Extrem Other: Visual exam of foot performed. No ulcerations or open lesions. No onchomycosis, no callouses.Pulses 1- distally Sensation intact to monofilament exam. Vib ratory sensation sensed is decreased t with 128 Hz tuning fork. 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 The plan is to have the patient check her point cares pre and post meals. It wa s stressed for her to bring in the glucometer for follow-up appointments because no data was provided, no insulin adjustments were made I described the relationship of poor glycemic control to development of complications to the patient. She would be a good candidate for a Sensor like Tabatha and I represcribed a Tabatha 2 sensor . I also re-initiated the Tresiba will try to get the patient coverage for alternative basal namely Basaglar if she qualifies under [facility]. Lastly, I made a referral to Podiatry as well as vascular surgery because of diminished pulses in lower extremity Tresiba U-100 samples given the patient lot [id number] expiration date 06/14/2024 and lot number [id number] expiration date 03/16/2025 Orders: Referrals Podiatry Referral E11.65 - Type 2 diabetes mellitus with hyperglycemia, Z79.4 - termite 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 helper (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 of insulin Vascular Surgery Referral E11.65 - Type 2 diabetes mellitus with hyperglycemia, Z79.4 - termite 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 helper (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 of insulin Coding Level of Care Code Est Pt Level 4 (73034) Diagnoses Type 2 diabetes mellitus with hyperglycemia, with long-term current use of insulin E11.65; Z79.4
[2023-03-12 11:59] LABS: Glucose, Whole Blood 200 mg/dL (60-115)
== END 2023-03-12 12:27 | disposition home or self-care (01) ==
PROVIDERS: PCP Internal Medicine; Visit Provider Internal Medicine Endocrinology, Diabetes & Metabolism
DX: E11.65 Type 2 diabetes mellitus with hyperglycemia (principal); Z79.4 Long term (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 of insulin
CPT/HCPCS: 99214

== ENCOUNTER → 2023-03-12 11:37 | Outpatient (BNVA) | payer MEDICARE, SELFPAY | PROVIDERS: PCP Internal Medicine; Visit Provider Internal Medicine Endocrinology, Diabetes & Metabolism | DX: E11.65 Type 2 diabetes mellitus with hyperglycemia (principal); Z79.4 Long term (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 of insulin; I48.0 Paroxysmal atrial fibrillation; Z79.01 Long term (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 of anticoagulants; Z51.81 Encounter for therapeutic drug level monitoring | CPT/HCPCS: 82947; 85610; 99212 ==

== ENCOUNTER 2023-03-12 13:10 | Outpatient (AMB) | payer MEDICARE, SELFPAY ==
--- NOTE | 2023-03-12 13:31 | MHC.OFFVISCO ---
Intake Intake Visit Reasons: Anticoagulation Allergies red dye [Red Dye] Allergy (Severe, Verified 03/12/23 13:26) HIVES,THROAT CLOSES FROM RED FOOD DYE Medication List - Last Reconciled 03/12/23 by Agnes Weaver RN albuterol sulfate 90 mcg/actuation 180 mcg inhalation Q6H PRN amiodarone 200 - 400 mg (1 - 2 x 200 mg) PO DAILY atorvastatin 40 mg PO DAILY blood sugar diagnostic (FreeStyle Lite Strips) As directed check sugar twice a day before meals blood-glucose meter (FreeStyle Lite Meter kit) As directed bumetanide 3 mg PO Q2D@0900 bumetanide 2 mg PO Q2D@0900 bumetanide 3 mg PO Q2D@2100 bumetanide 2 mg PO Q2D@2100 carvedilol 6.25 mg PO BID 90 days clotrimazole 1% (Athlete's Foot (clotrimazole)) 1 appl topical BID 4 weeks dulaglutide (Trulicity) 3 mg subcut FR@0900 insulin degludec (Tresiba FlexTouch U-200 insulin) 42 units subcut BEDTIME insulin lispro 12 units subcut TIDAC insulin syringe-needle U-100 (BD Veo Insulin Syringe Ultra-Fine) As directed twice a day lancets (FreeStyle Lancets) As directed losartan 25 mg PO DAILY nystatin (Nystop) 1 appl topical BID PRN pen needle, diabetic (BD Ultra-Fine Short Pen Needle) USE 4 times a day [scale-accommodate weight 300 lbs As directed] spironolactone 25 mg PO DAILY warfarin 5 mg See Protocol PO SUMOTUTHFRSA@1800 warfarin 2.5 mg PO WE@1800 Nursing Note INR 3.3-? out of therapeutic range Medications and supplements reviewed Patient status: pt recent c hosp for aflutter, pt c.o weakness and fatigue- amb with cane, she states may have an ablation in the near future Medications or supplements: amiodarone was 400mg daily, now 200mg daily trulicity increased to 3mg, new medication- tresiba -no interaction with warfarin per micromedex Diet: same Denies any signs and symptoms of bleeding or clotting or unusual bruising Bleeding, bruising, clotting discussed Nutritional guidance given: pt will eat dark cooked greens to lower inr Dose: keep warfarin dosing same as amiodarone lowered which can lower inr 2.5mg today and 5mg x 6 F/U INR Date - 1 week Patient verbalizing understanding of instructions given. pt radha present for visit Anti-Coag Initial Assessment Social Hx Patient Tobacco Use Status: Never used Tobacco alcohol intake: never Alcohol intake frequency: does not drink Cardiovascular Hx: HTN, Angina, CAD, CHF, Arrhythmias, Varicose Veins and Other Lung Disease HX: Asthma Endocrine Hx: Diabetes Musculoskeletal Hx: Arthritis Blood Disorder Hx: Hyperlipidemia GI Hx: Ulcers, Bleeding (GI, rectal) and Other Hx: Kidney Disease Neurological Hx: Serious Head Injury and Migraines/Headaches 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 ) Psych. 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
[2023-03-12 13:41] LABS: Prothrombin Time Whole Bld POC 39.6 sec (11.1-13.5); ~PT, ~INR - Anti Coag Clinic 3.3 (0.9-1.1)
== END 2023-03-12 13:41 | disposition home or self-care (01) ==
LOC: HO.ACS 13:10
PROVIDERS: PCP Internal Medicine; Visit Provider Internal Medicine
DX: Z79.01 Long term (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 of anticoagulants (principal)

== ENCOUNTER 2023-03-21 14:25 | Outpatient (AMB) | payer MEDICARE, SELFPAY ==
--- NOTE | 2023-03-21 14:56 | MHC.OFFVISCO ---
Intake Intake Visit Reasons: Anticoagulation Allergies red dye [Red Dye] Allergy (Severe, Verified 03/21/23 14:40) HIVES,THROAT CLOSES FROM RED FOOD DYE Medication List - Last Reconciled 03/21/23 by Tabatha Gomez RN albuterol sulfate 90 mcg/actuation 180 mcg inhalation Q6H PRN amiodarone 200 - 400 mg (1 - 2 x 200 mg) PO DAILY atorvastatin 40 mg PO DAILY blood sugar diagnostic (FreeStyle Lite Strips) As directed check sugar twice a day before meals blood-glucose meter (FreeStyle Lite Meter kit) As directed bumetanide 3 mg PO Q2D@0900 bumetanide 2 mg PO Q2D@0900 bumetanide 3 mg PO Q2D@2100 bumetanide 2 mg PO Q2D@2100 carvedilol 6.25 mg PO BID 90 days clotrimazole 1% (Athlete's Foot (clotrimazole)) 1 appl topical BID 4 weeks dulaglutide (Trulicity) 3 mg subcut FR@0900 insulin degludec (Tresiba FlexTouch U-200 insulin) 42 units subcut BEDTIME insulin lispro 12 units subcut TIDAC insulin syringe-needle U-100 (BD Veo Insulin Syringe Ultra-Fine) As directed twice a day lancets (FreeStyle Lancets) As directed losartan 25 mg PO DAILY nystatin (Nystop) 1 appl topical BID PRN pen needle, diabetic (BD Ultra-Fine Short Pen Needle) USE 4 times a day [scale-accommodate weight 300 lbs As directed] spironolactone 25 mg PO DAILY warfarin 5 mg See Protocol PO SUMOTUTHFRSA@1800 warfarin 2.5 mg See Protocol PO WE@1800 Nursing Note PT.CONTINUES TO BE VERY TIRED WITH SOME SOB WITH EXERTION SHE DENIES ANY CP OR SX OF BLEEDING. TO FOLLOW-UP WITH CARDIOLOGY SOON. ? ABLATION BOOST TO 7.5MGM TODAY THEN RESUME USUAL DOSE AND FOLLOW-UP IN 1 WEEK. GOOD UNDERSTANDING OF DOSING INSTR. 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 ) Psych. Illness/Depression: No Coding Level of Care Code Est Patient Level 1 Diagnoses Current use of anticoagulant therapy Z79.01 Assessment & Plan Assessment & Plan (1) Current use of anticoagulant therapy: Code(s): Z79.01 - custodial (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 of anticoagulants Category: Medical
== END 2023-03-21 14:59 | disposition home or self-care (01) ==
LOC: HO.ACS 14:25
PROVIDERS: PCP Internal Medicine; Visit Provider Internal Medicine
DX: Z79.01 Long term (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 of anticoagulants (principal)

== ENCOUNTER → 2023-03-21 14:25 | Outpatient (BNVA) | payer MEDICARE, SELFPAY | PROVIDERS: PCP Internal Medicine; Visit Provider Internal Medicine | DX: I48.0 Paroxysmal atrial fibrillation (principal); Z51.81 Encounter for therapeutic drug level monitoring; Z79.01 Long term (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 of anticoagulants | CPT/HCPCS: 85610; 99211 ==

== ENCOUNTER 2023-03-28 13:58 | Outpatient (AMB) | payer MEDICARE, SELFPAY ==
[2023-03-28 14:17] LABS: Prothrombin Time Whole Bld POC 27.1 sec (11.1-13.5); ~PT, ~INR - Anti Coag Clinic 2.3 (0.9-1.1)
--- NOTE | 2023-03-28 14:21 | MHC.OFFVISCO ---
Intake Intake Visit Reasons: Anticoagulation Allergies red dye [Red Dye] Allergy (Severe, Verified 03/28/23 14:07) HIVES,THROAT CLOSES FROM RED FOOD DYE Medication List - Last Reconciled 03/28/23 by Jeanna Mcallister RN albuterol sulfate 90 mcg/actuation 180 mcg inhalation Q6H PRN amiodarone 200 - 400 mg (1 - 2 x 200 mg) PO DAILY atorvastatin 40 mg PO DAILY blood sugar diagnostic (FreeStyle Lite Strips) As directed check sugar twice a day before meals blood-glucose meter (FreeStyle Lite Meter kit) As directed bumetanide 3 mg PO Q2D@0900 bumetanide 2 mg PO Q2D@0900 bumetanide 3 mg PO Q2D@2100 bumetanide 2 mg PO Q2D@2100 carvedilol 6.25 mg PO BID 90 days clotrimazole 1% (Athlete's Foot (clotrimazole)) 1 appl topical BID 4 weeks dulaglutide (Trulicity) 3 mg subcut FR@0900 insulin degludec (Tresiba FlexTouch U-200 insulin) 42 units subcut BEDTIME insulin lispro 12 units subcut TIDAC insulin syringe-needle U-100 (BD Veo Insulin Syringe Ultra-Fine) As directed twice a day lancets (FreeStyle Lancets) As directed losartan 25 mg PO DAILY nystatin (Nystop) 1 appl topical BID PRN pen needle, diabetic (BD Ultra-Fine Short Pen Needle) USE 4 times a day [scale-accommodate weight 300 lbs As directed] spironolactone 25 mg PO DAILY warfarin 5 mg See Protocol PO SUMOTUTHFRSA@1800 warfarin 2.5 mg See Protocol PO WE@1800 Nursing Note Amb to [facility] using cane, feeling ok- s/p cardioversion mid February Medications and supplements reviewed, asking about colace and warfarin- sts she is not constipated but difficulty starting bowel movement sts also that she has had some blood on toilet tissue after having BM no warfarin/colace interaction however discussed with pt concerns over bowels, potential for diarrhea with stool softner. Sts she just needs something to soften what is there, thinks she will take it only once a week to start dietary review of fiber foods to help promote BMs, pt sts she does have fluids through day however she is being monitored for fluids No other changes in health, diet, medications, or supplements Denies any unusual signs and symptoms of bruising, bleeding Denies any new Chest pain, SOB, or clotting INR: 2.3 in therapeutic range Nutritional guidance given: balance greens and reds in diet, increase fiber foods (raisins, dates, prune juice in moderation) Dose: continue usual dosing; 2.5mg x 1 day and 5mg x 6 days F/U INR: 2 weeks Patient verbalizes understanding of instructions given with accurate read back/ teach back of dosing Anti-Coag Initial Assessment Social Hx Patient Tobacco Use Status: Never used Tobacco alcohol intake: never Alcohol intake frequency: does not drink Cardiovascular Hx: HTN, Angina, CAD, CHF, Arrhythmias, Varicose Veins and Other Lung Disease HX: Asthma Endocrine Hx: Diabetes Musculoskeletal Hx: Arthritis Blood Disorder Hx: Hyperlipidemia GI Hx: Ulcers, Bleeding (GI, rectal) and Other Hx: Kidney Disease Neurological Hx: Serious Head Injury and Migraines/Headaches 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 ) Psych. Illness/Depression: No Coding Level of Care Code Est Patient Level 1 Diagnoses Current use of anticoagulant therapy Z79.01 Time Spent (min) 15 Assessment & Plan Assessment & Plan (1) Current use of anticoagulant therapy: Code(s): Z79.01 - FDC (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 of anticoagulants Category: Medical
== END 2023-03-28 15:02 | disposition home or self-care (01) ==
LOC: HO.ACS 13:58
PROVIDERS: PCP Internal Medicine; Visit Provider Internal Medicine
DX: Z79.01 Long term (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 of anticoagulants (principal)

== ENCOUNTER → 2023-03-28 13:58 | Outpatient (BNVA) | payer MEDICARE, SELFPAY | PROVIDERS: PCP Internal Medicine; Visit Provider Internal Medicine | DX: I48.0 Paroxysmal atrial fibrillation (principal); Z79.01 Long term (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 of anticoagulants; Z51.81 Encounter for therapeutic drug level monitoring | CPT/HCPCS: 85610; 99211 ==

== ENCOUNTER 2023-04-11 14:11 | Outpatient (AMB) | payer MEDICARE, SELFPAY ==
[2023-04-11 14:36] LABS: Prothrombin Time Whole Bld POC 44.5 sec (11.1-13.5); ~PT, ~INR - Anti Coag Clinic 3.7 (0.9-1.1)
--- NOTE | 2023-04-11 14:50 | MHC.OFFVISCO ---
Intake Intake Visit Reasons: Anticoagulation Allergies red dye [Red Dye] Allergy (Severe, Verified 04/11/23 14:24) HIVES,THROAT CLOSES FROM RED FOOD DYE Medication List - Last Reconciled 04/11/23 by Marybeth Timmons RN albuterol sulfate 90 mcg/actuation 180 mcg inhalation Q6H PRN amiodarone 200 - 400 mg (1 - 2 x 200 mg) PO DAILY atorvastatin 40 mg PO DAILY blood sugar diagnostic (FreeStyle Lite Strips) As directed check sugar twice a day before meals blood-glucose meter (FreeStyle Lite Meter kit) As directed bumetanide 3 mg PO Q2D@0900 bumetanide 2 mg PO Q2D@0900 bumetanide 3 mg PO Q2D@2100 bumetanide 2 mg PO Q2D@2100 carvedilol 6.25 mg PO BID 90 days clotrimazole 1% (Athlete's Foot (clotrimazole)) 1 appl topical BID 4 weeks dulaglutide (Trulicity) 3 mg subcut FR@0900 insulin degludec (Tresiba FlexTouch U-200 insulin) 42 units subcut BEDTIME insulin lispro 12 units subcut TIDAC insulin syringe-needle U-100 (BD Veo Insulin Syringe Ultra-Fine) As directed twice a day lancets (FreeStyle Lancets) As directed losartan 25 mg PO DAILY nystatin (Nystop) 1 appl topical BID PRN pen needle, diabetic (BD Ultra-Fine Short Pen Needle) USE 4 times a day [scale-accommodate weight 300 lbs As directed] spironolactone 25 mg PO DAILY warfarin 5 mg See Protocol PO SUMOTUTHFRSA@1800 warfarin 2.5 mg See Protocol PO WE@1800 Nursing Note INR: 3.7 in therapeutic range Medications and supplements reviewed HAS BEEN EATING A LOT OF SOUPS WITH CELERY AND ONION AND LOTS OF CARROTS ALL WICH WILL RAISE THE INR, Denies any signs and symptoms of bleeding or bruising or clotting. Bleeding, bruising, clotting discussed Nutritional guidance given Dose: DECREASE TODAY'S DOSE TO 2.5MG THEN RESUME 2.5MG WED / 5MG X 6 DAYS F/U INR: 2 WEEKS Patient verbalizes understanding of instructions given Anti-Coag Initial Assessment Social Hx Patient Tobacco Use Status: Never used Tobacco alcohol intake: never Alcohol intake frequency: does not drink Cardiovascular Hx: HTN, Angina, CAD, CHF, Arrhythmias, Varicose Veins and Other Lung Disease HX: Asthma Endocrine Hx: Diabetes Musculoskeletal Hx: Arthritis Blood Disorder Hx: Hyperlipidemia GI Hx: Ulcers, Bleeding (GI, rectal) and Other Hx: Kidney Disease Neurological Hx: Serious Head Injury and Migraines/Headaches 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 ) Psych. 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
== END 2023-04-11 14:52 | disposition home or self-care (01) ==
LOC: HO.ACS 14:11
PROVIDERS: PCP Internal Medicine; Visit Provider Internal Medicine
DX: Z79.01 Long term (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 of anticoagulants (principal)

== ENCOUNTER → 2023-04-11 14:11 | Outpatient (BNVA) | payer MEDICARE, SELFPAY | PROVIDERS: PCP Internal Medicine; Visit Provider Internal Medicine | DX: I48.0 Paroxysmal atrial fibrillation (principal); Z79.01 Long term (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 of anticoagulants; Z51.81 Encounter for therapeutic drug level monitoring | CPT/HCPCS: 85610; 99211 ==

== ENCOUNTER 2023-04-17 14:13 | Outpatient (AMB) | payer MEDICARE, SELFPAY ==
--- NOTE | 2023-04-17 14:20 | A.OFFVIS_ITS ---
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 Pt states that she does have some discoloration in bilateral LE. 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 She has been a longstanding diabetic she reports that it has been an issue for her for nearly 15 years. She he has continued leg pain. She is aware that she does have an element neuropathy. Of note her last hemoglobin A1c was 9.5. When discussing issues with her she reports that she can walk about a half a block. At that time shortness of breath seems to be more of an issue for her. She now presents for vascular evaluation. [facility] Medical History (Updated 04/17/23 @ 14:48 by Fidencio Gannon MD) Paroxysmal atrial fibrillation CHF (congestive heart failure) Left bundle branch block History of uterine cancer Personal history of malignant neoplasm of other parts of uterus Tinea pedis History of cardioversion Cardiomyopathy Coronary arteriosclerosis Ischemic cardiomyopathy Colonoscopy refused Incomplete left bundle branch block (LBBB) Endometrial adenocarcinoma Post-menopausal bleeding Type 2 diabetes mellitus with hyperglycemia, with long-term current use of insulin Vitamin D deficiency Mixed dyslipidemia Papanicolaou smear declined Mammogram declined Osteoarthritis, knee Diabetic neuropathy History of esophagitis Mild intermittent asthma History of basal cell carcinoma Osteonecrosis of right hip Hiatal hernia History of cholelithiasis Morbid obesity Essential hypertension Type 2 diabetes mellitus with hyperglycemia, without long-term current use of insulin Irritable bowel syndrome (IBS) Surgical History S/P CLARE-BSO (total abdominal hysterectomy and bilateral salpingo-oophorectomy) S/P cardiac catheterization History of hysterectomy H/O hernia repair Hx of section History of hip surgery Hx of colonoscopy History of cholecystectomy Family History Father Myocardial infarction Cardiovascular disease Mother Diabetes mellitus Essential hypertension Daughter Anxiety disorder Mental health disorder Son Mental health disorder Social History Household Members: Spouse and Children Housing: House Are you a primary child care center assistant director to a significant other at home: No Do you presently have visiting nurse or other home services: No Alcohol intake: never Comment: pt refuses alarms Patient Tobacco Use Status: Never used Tobacco e-Cigarette/Vaping Use: Never Used Second Hand Smoke Exposure: No Advance Directives Date on File: 04/08/22 service: No Current occupational status: retired Current occupational exposures/hazards: No Cognitive needs: No Hearing needs: No Vision needs: Yes Review of Systems Const All systems reviewed & are unremarkable except as noted in HPI and below Reports no additional complaints ENT Reports Normal hearing present Card Denies chest pain, Denies chest pain at rest, Denies chest pain with activity and Denies pedal edema Resp Denies cough GI Denies abdominal pain Musc Denies abnormal gait, Denies muscle cramps and Denies radiating pain into limb Skin/Breast Denies skin ulcer and Denies wounds Neuro Reports Normal hearing present and Denies abnormal gait Psych Reports no additional complaints Physical Exam Vital Signs: BMI result Body Mass Index 40.3 Const General: cooperative, healthy appearing and comfortable Orientation/consciousness: oriented to person, oriented to place and oriented to time HEENT Head: Yes normal to inspection Neck Neck: Yes normal visual inspection Carotids: no bruits Chest Chest palpation & inspection: normal inspection of the chest Resp Effort & Inspection: normal respiratory effort and able to speak in complete sentences Auscultation: clear to auscultation bilaterally, no crackles, no rales, no rhonchi and no wheezes Cardio Other: Bilateral DP signals Rate: regular rate Rhythm: regular rhythm Heart sounds: S1 normal heart sound present and S2 normal heart sound present Bruits: no carotid bruits Peripheral pulses: Peripheral pulses 2+ throughout GI Inspection: Yes normal to inspection Skin Wounds: no wounds Hair: normal Neuro General: oriented to person, oriented to place and oriented to time Cranial nerves: Yes CN's II-XII intact bilaterally and Yes Normal hearing present Cognition (Neuro): normal cognition Motor exam (neuro): 5/5 motor strength present throughout Extrem Other: venous exam: No significant superficial varicosities or spider telangiectasias, minimal edema General: No clubbing, No cyanosis and No edema Psych Appearance: grossly normal Mental Status: mental status grossly normal Speech and movement: Normal speech and movement present Assessment & Plan Assessment & Plan (1) PAD (peripheral artery disease): Code(s): I73.9 - Peripheral vascular disease, unspecified Plan: In short patient has lower extremity pain. It is unclear what the etiology of this is. It may be even multifactorial inclusive of neuropathy and peripheral vascular disease. I have taken the liberty of ordering noninvasive arterial testing to better evaluate this. We did discuss routine risk factor modification inclusive of tight diabetes control. We did discuss the importance of walking and exercise as well. She will follow up with us after noninvasive testing. Thank you for allowing us to assist in her care. If there are any questions or concerns please do not hesitate to contact us. Orders: Orders US arterial duplex LE BI 1 Week I73.9 - Peripheral vascular disease, unspecified Coding Level of Care Code New Pt Level 4 (05678) Diagnoses PAD (peripheral artery disease) I73.9
[2023-04-17 14:26] VITALS: BMI 40.3
== END 2023-04-17 14:52 | disposition home or self-care (01) ==
PROVIDERS: PCP Internal Medicine; Visit Provider Surgery Vascular Surgery
DX: I73.9 Peripheral vascular disease, unspecified (principal)
CPT/HCPCS: 99203

== ENCOUNTER → 2023-04-17 14:13 | Outpatient (BNVA) | payer MEDICARE, SELFPAY | PROVIDERS: PCP Internal Medicine; Visit Provider Surgery Vascular Surgery | DX: I73.9 Peripheral vascular disease, unspecified (principal) | CPT/HCPCS: 99202 ==

== ENCOUNTER 2023-04-28 13:09 | Outpatient (AMB) | payer MEDICARE, SELFPAY ==
[2023-04-28 13:27] LABS: Prothrombin Time Whole Bld POC 49.8 sec (11.1-13.5); ~PT, ~INR - Anti Coag Clinic 4.1 (0.9-1.1)
--- NOTE | 2023-04-28 13:37 | MHC.OFFVISCO ---
Intake Intake Visit Reasons: Anticoagulation Allergies red dye [Red Dye] Allergy (Severe, Verified 04/28/23 13:20) HIVES,THROAT CLOSES FROM RED FOOD DYE Medication List - Last Reconciled 04/28/23 by Marybeth Timmons RN albuterol sulfate 90 mcg/actuation 180 mcg inhalation Q6H PRN amiodarone 200 mg PO DAILY 90 days atorvastatin 40 mg PO DAILY blood sugar diagnostic (FreeStyle Lite Strips) As directed check sugar twice a day before meals blood-glucose meter (FreeStyle Lite Meter kit) As directed bumetanide 3 mg PO Q2D@0900 bumetanide 2 mg PO Q2D@0900 bumetanide 3 mg PO Q2D@2100 bumetanide 2 mg PO Q2D@2100 carvedilol 6.25 mg PO BID 90 days clotrimazole 1% (Athlete's Foot (clotrimazole)) 1 appl topical BID 4 weeks dulaglutide (Trulicity) 3 mg subcut FR@0900 insulin degludec (Tresiba FlexTouch U-200 insulin) 42 units subcut BEDTIME insulin lispro 12 units subcut TIDAC insulin syringe-needle U-100 (BD Veo Insulin Syringe Ultra-Fine) As directed twice a day lancets (FreeStyle Lancets) As directed losartan 25 mg PO DAILY nystatin (Nystop) 1 appl topical BID PRN pen needle, diabetic (BD Ultra-Fine Short Pen Needle) USE 4 times a day [scale-accommodate weight 300 lbs As directed] spironolactone 25 mg PO DAILY warfarin 5 mg See Protocol PO SUMOTUTHFRSA@1800 warfarin 2.5 mg See Protocol PO WE@1800 Nursing Note INR 4.1 out of therapeutic range Medications and supplements reviewed Patient status: had GI virus over the weekend- canceld cardiac rehab today due GI upset Medications or supplements: no changes Diet: fair over the past few days Denies any signs and symptoms of bleeding or clotting or unusual bruising Bleeding, bruising, clotting discussed Nutritional guidance given: due to GI upset it was enc to have easy to digest foods Dose: hold today then resume usual dose F/U INR Date: 03/18 weeks 05/09/23 Patient verbalizing understanding of instructions given. 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 ) Psych. Illness/Depression: No Coding Level of Care Code Est Patient Level 1 Diagnoses Current use of anticoagulant therapy Z79.01 Assessment & Plan Assessment & Plan (1) Current use of anticoagulant therapy: Code(s): Z79.01 - long-term (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 of anticoagulants Category: Medical
== END 2023-04-28 13:41 | disposition home or self-care (01) ==
LOC: HO.ACS 13:09
PROVIDERS: PCP Internal Medicine; Visit Provider Internal Medicine
DX: Z79.01 Long term (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 of anticoagulants (principal)

== ENCOUNTER → 2023-04-28 13:09 | Outpatient (BNVA) | payer MEDICARE, SELFPAY | PROVIDERS: PCP Internal Medicine; Visit Provider Internal Medicine | DX: I48.0 Paroxysmal atrial fibrillation (principal); Z51.81 Encounter for therapeutic drug level monitoring; Z79.01 Long term (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 of anticoagulants | CPT/HCPCS: 85610; 99211 ==

== ENCOUNTER 2023-05-16 13:00 | Outpatient (AMB) | payer MEDICARE, SELFPAY ==
[2023-05-16 13:12] LABS: Prothrombin Time Whole Bld POC 44.2 sec (11.1-13.5); ~PT, ~INR - Anti Coag Clinic 3.7 (0.9-1.1)
--- NOTE | 2023-05-16 13:22 | MHC.OFFVISCO ---
Intake Intake Visit Reasons: Anticoagulation Allergies red dye [Red Dye] Allergy (Severe, Verified 05/16/23 13:05) HIVES,THROAT CLOSES FROM RED FOOD DYE Medication List - Last Reconciled 05/16/23 by Jeanna Suarez RN albuterol sulfate 90 mcg/actuation 180 mcg inhalation Q6H PRN amiodarone 200 mg PO DAILY 90 days atorvastatin 40 mg PO DAILY blood sugar diagnostic (FreeStyle Lite Strips) As directed check sugar twice a day before meals blood-glucose meter (FreeStyle Lite Meter kit) As directed bumetanide 3 mg PO Q2D@0900 bumetanide 2 mg PO Q2D@0900 bumetanide 3 mg PO Q2D@2100 bumetanide 2 mg PO Q2D@2100 carvedilol 6.25 mg PO BID 90 days clotrimazole 1% (Athlete's Foot (clotrimazole)) 1 appl topical BID 4 weeks dulaglutide (Trulicity) 3 mg subcut FR@0900 insulin degludec (Tresiba FlexTouch U-200 insulin) 42 units subcut BEDTIME insulin lispro 12 units subcut TIDAC insulin syringe-needle U-100 (BD Veo Insulin Syringe Ultra-Fine) As directed twice a day lancets (FreeStyle Lancets) As directed losartan 25 mg PO DAILY nystatin (Nystop) 1 appl topical BID PRN pen needle, diabetic (BD Ultra-Fine Short Pen Needle) USE 4 times a day [scale-accommodate weight 300 lbs As directed] spironolactone 25 mg PO DAILY warfarin 5 mg See Protocol PO SUMOTUTHFRSA@1800 warfarin 2.5 mg See Protocol PO WE@1800 Nursing Note INR 3.7?? out of therapeutic range of 2-3 Medications and supplements reviewed, no change Patient status: Pt has laryngitis, no antibx, also has had a queezy stomach Medications or supplements: no change Diet: mostly soft foods and soups Denies any signs and symptoms of bleeding or clotting or unusual bruising Bleeding, bruising, clotting discussed Nutritional guidance given: will have a serving of greens today Dose: decreased to 2.5mg today (5mg) then 2.5mg X2 days and 5mg X5 days next week F/U INR Date : 1 week?? Patient verbalizing understanding of instructions given. 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 ) Psych. 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
== END 2023-05-16 13:26 | disposition home or self-care (01) ==
LOC: HO.ACS 13:00
PROVIDERS: PCP Internal Medicine; Visit Provider Internal Medicine
DX: Z79.01 Long term (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 of anticoagulants (principal)

== ENCOUNTER → 2023-05-16 13:00 | Outpatient (BNVA) | payer MEDICARE, SELFPAY | PROVIDERS: PCP Internal Medicine; Visit Provider Internal Medicine | DX: I48.0 Paroxysmal atrial fibrillation (principal); Z79.01 Long term (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 of anticoagulants; Z51.81 Encounter for therapeutic drug level monitoring | CPT/HCPCS: 85610; 99211 ==

== ENCOUNTER 2023-05-23 13:20 | Outpatient (AMB) | payer MEDICARE, SELFPAY ==
[2023-05-23 13:28] LABS: Prothrombin Time Whole Bld POC 37.6 sec (11.1-13.5); ~PT, ~INR - Anti Coag Clinic 3.1 (0.9-1.1)
--- NOTE | 2023-05-23 13:31 | MHC.OFFVISCO ---
Intake Intake Visit Reasons: Anticoagulation Allergies red dye [Red Dye] Allergy (Severe, Verified 05/23/23 13:22) HIVES,THROAT CLOSES FROM RED FOOD DYE Medication List - Last Reconciled 05/23/23 by Jeanna Mcallister RN albuterol sulfate 90 mcg/actuation 180 mcg inhalation Q6H PRN amiodarone 200 mg PO DAILY 90 days atorvastatin 40 mg PO DAILY blood sugar diagnostic (FreeStyle Lite Strips) As directed check sugar twice a day before meals blood-glucose meter (FreeStyle Lite Meter kit) As directed bumetanide 3 mg PO Q2D@0900 bumetanide 2 mg PO Q2D@0900 bumetanide 3 mg PO Q2D@2100 bumetanide 2 mg PO Q2D@2100 carvedilol 6.25 mg PO BID 90 days clotrimazole 1% (Athlete's Foot (clotrimazole)) 1 appl topical BID 4 weeks dulaglutide (Trulicity) 3 mg subcut FR@0900 insulin degludec (Tresiba FlexTouch U-200 insulin) 42 units subcut BEDTIME insulin lispro 12 units subcut TIDAC insulin syringe-needle U-100 (BD Veo Insulin Syringe Ultra-Fine) As directed twice a day lancets (FreeStyle Lancets) As directed losartan 25 mg PO DAILY nystatin (Nystop) 1 appl topical BID PRN pen needle, diabetic (BD Ultra-Fine Short Pen Needle) USE 4 times a day [scale-accommodate weight 300 lbs As directed] spironolactone 25 mg PO DAILY warfarin 5 mg See Protocol PO SUMOTUTHFRSA@1800 warfarin 2.5 mg See Protocol PO WE@1800 Nursing Note Amb to ACS using cane, feeling better but continues with laryngitis Medications and supplements reviewed, no new meds, recent warfarin dosing changes and weekly decrease No changes in health, diet, medications, or supplements Denies any unusual signs and symptoms of bruising, bleeding Denies any new Chest pain, SOB, or clotting INR: 3.1 in therapeutic range Nutritional guidance given: greens today then balance greens and reds in diet, be consistent with greens Dose: continue new dosing; 2.5mg x 2 days and 5mg x 5 days F/U INR: 2 weeks, before cariac rehab Patient verbalizes understanding of instructions given with accurate read back/ teach back of dosing Anti-Coag Initial Assessment Social Hx Patient Tobacco Use Status: Never used Tobacco alcohol intake: never Alcohol intake frequency: does not drink Cardiovascular Hx: HTN, Angina, CAD, CHF, Arrhythmias, Varicose Veins and Other Lung Disease HX: Asthma Endocrine Hx: Diabetes Musculoskeletal Hx: Arthritis Blood Disorder Hx: Hyperlipidemia GI Hx: Ulcers, Bleeding (GI, rectal) and Other Hx: Kidney Disease Neurological Hx: Serious Head Injury and Migraines/Headaches 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 ) Psych. Illness/Depression: No Coding Level of Care Code Est Patient Level 1 Diagnoses Current use of anticoagulant therapy Z79.01 Time Spent (min) 15 Assessment & Plan Assessment & Plan (1) Current use of anticoagulant therapy: Code(s): Z79.01 - [facility] (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 of anticoagulants Category: Medical
== END 2023-05-23 13:35 | disposition home or self-care (01) ==
LOC: HO.ACS 13:20
PROVIDERS: PCP Internal Medicine; Visit Provider Internal Medicine
DX: Z79.01 Long term (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 of anticoagulants (principal)

== ENCOUNTER → 2023-05-23 13:20 | Outpatient (BNVA) | payer MEDICARE, SELFPAY | PROVIDERS: PCP Internal Medicine; Visit Provider Internal Medicine | DX: I48.0 Paroxysmal atrial fibrillation (principal); Z79.01 Long term (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 of anticoagulants; Z51.81 Encounter for therapeutic drug level monitoring | CPT/HCPCS: 85610; 99211 ==

== ENCOUNTER 2023-05-29 10:06 | Outpatient (REF) | payer MEDICARE, SELFPAY ==
[2023-05-29 13:25] LABS: B Type Natriuretic Peptide 59 pg/mL (<100)
[2023-05-29 13:41] LABS: Estimated Average Glucose 220 mg/dL; Hemoglobin A1c % 9.3 % (<6.0)
[2023-05-29 13:59] LABS: Alanine Aminotransferase 13 U/L (0-31); Anion Gap 17 (12-20); Aspartate Amino Transferase 12 U/L (5-31); Blood Urea Nitrogen 37 mg/dL (9-16); Calcium 8.8 mg/dL (8.4-10.2); Carbon Dioxide 27 mmol/L (22-29); Chloride 96 mmol/L (96-108); Cholesterol 165 mg/dL (<200); Estimated Glomerular Filt Rate 34; Glucose Fasting 233 mg/dL (60-99); HDL Cholesterol 45 mg/dL (>40); LDL Cholesterol Calculated 71 mg/dL (<100); Potassium 3.8 mmol/L (3.3-5.1); Sodium 136 mmol/L (135-145); Triglycerides 245 mg/dL (<150)
== END 2023-05-29 10:07 | disposition home or self-care (01) ==
LOC: HO.HMGCLDS 10:06
PROVIDERS: PCP Internal Medicine; Visit Provider Internal Medicine
DX: E11.22 Type 2 diabetes mellitus with diabetic chronic kidney disease (principal); E11.65 Type 2 diabetes mellitus with hyperglycemia; I13.0 Hypertensive heart and chronic kidney disease with heart failure and stage 1 through stage 4 chronic kidney disease, or unspecified chronic kidney disease; I50.23 Acute on chronic systolic (congestive) heart failure; N17.9 Acute kidney failure, unspecified; E78.2 Mixed hyperlipidemia; M79.89 Other specified soft tissue disorders; Z79.4 Long term (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 of insulin
CPT/HCPCS: 36415; 80048; 80061; 83036; 83880; 84450; 84460

== ENCOUNTER 2023-05-30 12:04 | Emergency (ER) | payer MEDICARE, SELFPAY ==
--- NOTE | ~2023-05-30 | XR_ITS ---
EXAMINATION: XR CHEST CLINICAL INFORMATION: Chest pain. COMPARISON: Chest radiograph dated 03/01/2023. TECHNIQUE: 2 views of the chest were obtained. FINDINGS: The trachea is in normal anatomic position. Heart size is normal. The lungs are clear. There is no pleural effusion. There is no pneumothorax. There is no acute osseous abnormality. XR/XR chest 2V IMPRESSION: No acute cardiopulmonary disease.
[2023-05-30 12:07] VITALS: BP 143/69; PULSE 67; RESP 18; TEMP 37.1; O2SAT 100; BMI 40.0
--- NOTE | 2023-05-30 12:07 | ED.CHESTPAIN ---
HPI - Chest Pain General Chief Complaint: Chest Pain Stated Complaint: chest discomfort, sob last night Time Seen by Provider: 05/30/23 15:04 Source: patient Mode of arrival: wheelchair Limitations: no limitations History of Present Illness HPI narrative: Patient is a 68-year-old female past medical history of heart failure, cardiomyopathy with EF 30-35%, atrial fibrillation, prior cardioversion, type 2 diabetes, ASCVD, dyslipidemia, hypertension, IBS, intermittent asthma, sleep apnea who presents emergency department today coming from [facility] cardiac rehab today and thought she may be in a flutter but she was rather in a sinus rhythm. Intermittent chest discomfort over the past week, typically loss about an hour, not experiencing at this time. Increase Shortness of breath since last night. Reports having influenza 2 weeks ago. Related Data Home Medications Medication Instructions Recorded Confirmed blood-glucose meter (FreeStyle 10/25/21 05/23/23 Lite Meter kit) lancets 28 gauge (FreeStyle 10/25/21 05/23/23 Lancets) pen needle, diabetic 31 gauge x 06/04/22 05/23/2307/30 (BD Ultra-Fine Short Pen Needle) albuterol sulfate 90 mcg/actuation 180 mcg inhalation Q6H PRN 08/19/22 05/23/23 aerosol inhaler Shortness Of Breath Or Wheezing nystatin 100,000 unit/gram topical 1 appl topical BID PRN Rash 11/25/22 05/23/23 powder (Nystop) insulin lispro 100 unit/mL 12 unit subcut TIDAC 01/06/23 05/23/23 subcutaneous pen bumetanide 2 mg tablet 2 mg PO Q2D@89903/01/23 05/23/23 bumetanide 2 mg tablet 2 mg PO Q2D@209903/01/23 05/23/23 bumetanide 2 mg tablet 3 mg PO Q2D@89903/01/23 05/23/23 bumetanide 2 mg tablet 3 mg PO Q2D@209903/01/23 05/23/23 dulaglutide 3 mg/0.5 mL 3 mg subcut FR@0903/01/23 05/23/23 subcutaneous pen injector (Trulicangus) warfarin 2.5 mg tablet 2.5 mg PO WE@1800 12/16/23 03/08/24 warfarin 2.5 mg tablet 5 mg PO GREGORTNARGIS@1800 03/01/23 05/23/23 insulin degludec 200 unit/mL (3 42 unit subcut BEDTIME 03/12/23 05/23/23 mL) subcutaneous pen (Tresiba FlexTouch U-200 insulin) Previous Rx's Medication Instructions Recorded blood sugar diagnostic (FreeStyle #100 ea 10/11/20 Lite Strips) insulin syringe-needle U-100 1/2 #200 ea 11/13/21 mL 31 gauge x 15/64 (BD Veo Insulin Syringe Ultra-Fine) scale-accommodate weight 300 lbs #1 ea 05/16/22 clotrimazole 1 % topical cream 1 appl topical BID 4 weeks #45 08/20/22 (Athlete's Foot (clotrimazole)) grams atorvastatin 40 mg tablet 40 mg PO DAILY #90 tabs 11/04/22 spironolactone 25 mg tablet 25 mg PO DAILY #60 tabs 02/03/23 carvedilol 6.25 mg tablet 6.25 mg PO BID 90 days #180 tabs 03/31/23 losartan 25 mg tablet 25 mg PO DAILY #30 tabs 04/22/23 amiodarone 200 mg tablet 200 mg PO DAILY 90 days #90 tabs 04/24/23 Allergies Allergy/AdvReac Type Severity Reaction Status Date / Time red dye [Red Dye] Allergy Severe HIVES,THROAT Verified 05/30/23 12:11 CLOSES FROM RED FOOD DYE Review of Systems Review of Systems: Yes all other systems are reviewed and are negative [facility] Past Medical History Attestation statement: The following information was validated with the patient. Source: old records reviewed Medical History Paroxysmal atrial fibrillation CHF (congestive heart failure) Left bundle branch block History of uterine cancer Personal history of malignant neoplasm of other parts of uterus Tinea pedis History of cardioversion Cardiomyopathy Coronary arteriosclerosis Ischemic cardiomyopathy Colonoscopy refused Incomplete left bundle branch block (LBBB) Endometrial adenocarcinoma Post-menopausal bleeding Type 2 diabetes mellitus with hyperglycemia, with long-term current use of insulin Vitamin D deficiency Mixed dyslipidemia Papanicolaou smear declined Mammogram declined Osteoarthritis, knee Diabetic neuropathy History of esophagitis Mild intermittent asthma History of basal cell carcinoma Osteonecrosis of right hip Hiatal hernia History of cholelithiasis Morbid obesity Essential hypertension Type 2 diabetes mellitus with hyperglycemia, without long-term current use of insulin Irritable bowel syndrome (IBS) Surgical History S/P CLARE-BSO (total abdominal hysterectomy and bilateral salpingo-oophorectomy) S/P cardiac catheterization History of hysterectomy H/O hernia repair Hx of section History of hip surgery Hx of colonoscopy History of cholecystectomy Family History Family History Father Myocardial infarction Cardiovascular disease Mother Diabetes mellitus Essential hypertension Daughter Anxiety disorder Mental health disorder Son Mental health disorder Social History Social History Household Members: Spouse and Children Housing: House Are you a primary personal care home administrator to a significant other at home: No Do you presently have visiting nurse or other home services: No Alcohol intake: never Comment: pt refuses alarms Patient Tobacco Use Status: Never used Tobacco e-Cigarette/Vaping Use: Never Used Second Hand Smoke Exposure: No Advance Directives: Yes Advance Directives on File: Yes Advance Directives Date on File: 04/08/22 service: No Current occupational status: retired Current occupational exposures/hazards: No Cognitive needs: No Hearing needs: No Vision needs: Yes Physical Exam Vital Signs: Vital Signs: Last Vital Signs Temp 98 F 05/30/23 15:01 Pulse 61 05/30/23 15:01 Resp 20 05/30/23 15:01 BP 137/62 05/30/23 15:01 Pulse Ox 98 05/30/23 15:01 O2 Del Method Room Air 05/30/23 15:01 BMI result Body Mass Index 40.0 Appearance: Alert.?Oriented to person, place and time. No acute distress.?Normal affect. Eyes: Pupils equal, round and reactive to light.? ENT: Pharynx normal.?? Neck: Normal inspection.? Neck supple.?? CVS: Heart sounds normal. Normal heart rate and rhythm.? Pulses normal.?? Respiratory: No respiratory distress.? Lung sounds clear to auscultation bilaterally?? Abdomen: Soft and non-tender. Normoactive bowel sounds. ? Skin: Skin warm and dry.? Normal skin color.? Extremities: No lower extremity edema.? No calf ttp? Neuro: Moves all extremities spontaneously. Sensation intact bilaterally. Ambulates with normal steady gait. Medical Decision Making Medical Decision Making [facility] Narrative: Patient is a 68-year-old female past medical history of heart failure, cardiomyopathy with EF 30-35%, atrial fibrillation on Eliquis, prior cardioversion, type 2 diabetes, ASCVD, dyslipidemia, hypertension, IBS, intermittent asthma, sleep apnea presenting to the ED today for evaluation of increased shortness of breath from baseline and intermittent chest pain though denies chest pain at this time. Workup reveals normal CBC, no electrolyte abnormality, baseline renal function, high sensitive troponin within normal range, BNP within normal range, CXR without acute cardiopulmonary abnormality, EKG revealing normal sinus rhythm with left bundle-branch block as seen on prior, ventricular rate of 66, QTC 486, no ST elevation, no ST depression, no acute ischemic findings. Do not suspect that shortness of breath and chest pain is secondary to CHF, ACS, PNA but rather COVID-19 as just tested positive today. Janet Patel, used shared decision making, she however declines. He reports feeling well at this time would like to be discharged home. She has no hypoxia, tachypnea, or tachycardia. Feel that she is stable for discharge home and outpatient follow-up with PCP. Discussed strict return precautions. All questions answered. Stable for discharge Differential Diagnosis Differential Diagnoses: The differential diagnosis associated with the presentation includes (As noted above) Admission/Observation Consideration of admission/observation: Escalation of care including admission/observation considered (As noted above) Lab Data [facility] Lab Attestation statement: I reviewed the patient's lab results. (As noted above) 05/30/23 12:24 05/30/23 12:24 Labs: Lab Results 05/30/23 Range/Units 12:24 WBC 7.0 (4.8-10.8) X10*3/uL RBC 4.66 (4.20-5.50) X10*6/uL Hgb 14.0 (12.0-16.0) g/dl Hct 42.3 (37.0-47.0) % MCV 90.8 (80.0-98.0) fL MCH 30.0 (27.0-33.0) pg MCHC 33.1 (31.0-35.0) g/dl RDW 13.2 (11.0-16.0) % Plt Count 227 (160-400) X10*3/uL MPV 9.5 (9.4-12.3) fL Immature Gran % (Auto) 0.3 (0.0-0.4) % Neut % (Auto) 67.5 (45-73) % Lymph % (Auto) 22.4 (20-40) % [place] % (Auto) 5.7 (2-11) % Eos % (Auto) 3.1 (0-4) % Baso % (Auto) 1.0 (0-2) % Lymph # (Auto) 1.6 (1.2-4.9) X10*3/uL [place] # (Auto) 0.4 (0.1-1.2) X10*3/uL Eos # (Auto) 0.2 (0.0-0.4) X10*3/uL Baso # (Auto) 0.1 (0.0-0.2) X10*3/uL Abs Immat Gran (auto) 0.02 (0.00-0.03) X10*3/uL Absolute Neuts (auto) 4.8 (2.0-8.3) x10*3/uL Absolute Nucleated RBC 0.000 (0.0-0.012) X10*3/uL Nucleated RBC % (auto) 0.0 (0.0-0.2) /100WBC PT 32.0 H (11.1-13.3) SEC INR 2.6 H (0.9-1.1) Sodium 135 (135-145) mmol/L Potassium 4.1 (3.3-5.1) mmol/L Chloride 97 (96-108) mmol/L Carbon Dioxide 25 (22-29) mmol/L Anion Gap 17 (12-20) BUN 43 H (9-16) mg/dL Creatinine 1.94 H (0.5-1.4) mg/dL Estim Creat Clear Calc 33.3 Estimated GFR 26 Random Glucose 287 H (60-115) mg/dL Calcium 9.1 (8.4-10.2) mg/dL Magnesium 1.8 (1.6-2.6) mg/dL Total Bilirubin 0.4 (0.0-1.0) mg/dL AST 9 (5-31) U/L ALT 13 (0-31) U/L Alkaline Phosphatase 82 (39-117) U/L Troponin I High Sens 4.8 D (<3.5-17.0) ng/L B-Natriuretic Peptide 66 (<100) pg/mL Total Protein 7.3 (6.5-8.0) g/dL Albumin 3.9 (3.5-5.0) g/dL Influenza Type A (PCR) NEGATIVE (Negative) Influenza Type B (PCR) NEGATIVE (Negative) RSV RNA Qual (PCR) NEGATIVE (Negative) SARS-CoV-2 RNA (RT-PCR) POSITIVE A (Negative) Independent Interpretation I performed an independent interpretation of an: EKG (As noted above) and Plain X-Ray (No infiltrates, no consolidation, no pleural effusion) Radiology Impression Discussion of test interpretation with radiology: I have reviewed the radiologist's reading. Radiologist Impression: XR/XR chest 2V IMPRESSION: No acute cardiopulmonary disease. External Record Review External record reviewed: Outpatient record Prescription Management I considered prescription management with: Antiviral (See narrative above) Discharge Plan Discharge Clinical Impression: COVID-19 Patient Disposition: Home, Self-Care Instructions: COVID-19 (Coronavirus Disease 2019) (ED) Additional Instructions: Be sure to rest, stay well hydrated drinking plenty of fluids, eat small frequent meals. Tylenol/ibuprofen can be used as needed for fever/pain. [id number] cold medications may be helpful as well for symptoms. Saline nasal spray, humidifier may be helpful for nasal congestion. You may return to the emergency department with any new or worsening symptoms or concerns. Follow-up with your primary care provider early next week. Prescriptions: No Action (DME) FreeStyle Lite Strips Strip See Rx Instructions .Route Qty: 100 5RF Rx Instructions: As directed check sugar twice a day before meals (DME) insulin syringe-needle U-100 [BD Veo Insulin Syringe UF] 1/2 mL 31 gauge x 15/64 syringe See Rx Instructions .Route Qty: 200 1RF Rx Instructions: As directed twice a day (DME) scale-accommodate weight 300 lbs See Rx Instructions .Route .MEDSUPPLY Qty: 1 0RF Rx Instructions: As directed atorvastatin 40 mg tablet 40 mg PO DAILY Qty: 90 3RF spironolactone 25 mg tablet 25 mg PO DAILY Qty: 60 6RF carvedilol 6.25 mg tablet 6.25 mg PO BID 90 Days Qty: 180 3RF losartan 25 mg tablet 25 mg PO DAILY Qty: 30 5RF amiodarone 200 mg tablet 200 mg PO DAILY 90 Days Qty: 90 2RF bumetanide 2 mg tablet 3 mg PO Q2D@09 bumetanide 2 mg tablet 3 mg PO Q2D@2099 bumetanide 2 mg tablet 2 mg PO Q2D@2099 warfarin 2.5 mg Tablet 2.5 mg PO WE@1800 Protocol: Dose Management Condition: Friday (Week One) Dose/Route: 2.5 mg Instruction: 1 x 2.5 mg tablet Condition: Friday Dose/Route: 0 mg Instruction: 0 tablets Condition: Friday Dose/Route: 5 mg Instruction: 2 x 2.5 mg tablets Condition: Friday Dose/Route: 2.5 mg Instruction: 1 x 2.5 mg tablet Condition: Dose/Route: 5 mg Instruction: 2 x 2.5 mg tablets Condition: Friday Dose/Route: 5 mg Instruction: 2 x 2.5 mg tablets Condition: Friday Dose/Route: 5 mg Instruction: 2 x 2.5 mg tablets Condition: Friday (Week Two) Dose/Route: 2.5 mg Instruction: 1 x 2.5 mg tablet Condition: Friday Dose/Route: 5 mg Instruction: 2 x 2.5 mg tablets Condition: Friday Dose/Route: 5 mg Instruction: 2 x 2.5 mg tablets Condition: Friday Dose/Route: 2.5 mg Instruction: 1 x 2.5 mg tablet Condition: Dose/Route: 5 mg Instruction: 2 x 2.5 mg tablets Condition: Friday Dose/Route: 5 mg Instruction: 2 x 2.5 mg tablets Condition: Friday Dose/Route: 5 mg Instruction: 2 x 2.5 mg tablets Protocol Text: Adjustment Start Date: Friday05/23/23 INR Value: 3.1 INR Date: 05/23/23 Recheck Date: 06/06/23 Additional Instructions: INR is just above range continue new dosing pattern be consistent with jim bumetanide 2 mg tablet 2 mg PO Q2D@09 warfarin 2.5 mg tablet 5 mg PO SUMOTUTHFRSA@1800 Protocol: Dose Management Condition: Friday (Week One) Dose/Route: 2.5 mg Instruction: 1 x 2.5 mg tablet Condition: Friday Dose/Route: 0 mg Instruction: 0 tablets Condition: Friday Dose/Route: 5 mg Instruction: 2 x 2.5 mg tablets Condition: Friday Dose/Route: 2.5 mg Instruction: 1 x 2.5 mg tablet Condition: Dose/Route: 5 mg Instruction: 2 x 2.5 mg tablets Condition: Friday Dose/Route: 5 mg Instruction: 2 x 2.5 mg tablets Condition: Friday Dose/Route: 5 mg Instruction: 2 x 2.5 mg tablets Condition: Friday ( Two) Dose/Route: 2.5 mg Instruction: 1 x 2.5 mg tablet Condition: Friday Dose/Route: 5 mg Instruction: 2 x 2.5 mg tablets Condition: Friday Dose/Route: 5 mg Instruction: 2 x 2.5 mg tablets Condition: Friday Dose/Route: 2.5 mg Instruction: 1 x 2.5 mg tablet Condition: Dose/Route: 5 mg Instruction: 2 x 2.5 mg tablets Condition: Friday Dose/Route: 5 mg Instruction: 2 x 2.5 mg tablets Condition: Friday Dose/Route: 5 mg Instruction: 2 x 2.5 mg tablets Protocol Text: Adjustment Start Date: Friday05/23/23 INR Value: 3.1 INR Date: 05/23/23 Recheck Date: 06/06/23 Additional Instructions: INR is just above range continue new dosing pattern be consistent with greens Rx Instructions: green tablet , pt allergic to red dye Trulicity 3 mg/0.5 mL pen injector 3 mg subcut FR@0900 insulin lispro 100 unit/mL insulin pen 12 unit subcut TIDAC clotrimazole [Athlete's Foot (clotrimazole)] 1 % cream 1 appl topical BID 28 Days Qty: 45 0RF (DME) blood-glucose meter [FreeStyle Lite Meter] Kit See Rx Instructions .Route Rx Instructions: As directed (DME) lancets [FreeStyle Lancets] 28 gauge misc See Rx Instructions .Route Rx Instructions: As directed (DME) pen needle, diabetic [BD Ultra-Fine Short Pen Needle] 31 gauge x 5/16 needle See Rx Instructions .ROUTE .COMPLEX Dose Instruction: USE 1 PEN NEEDLE ONCE DAILY WITH LANTUS INSULIN Rx Instructions: USE 4 times a day albuterol sulfate 90 mcg/actuation HFA aerosol inhaler 180 mcg inhalation Q6H PRN (Reason: Shortness Of Breath Or Wheezing) nystatin [Nystop] 100,000 unit/gram powder 1 appl topical BID PRN (Reason: Rash) insulin degludec [Tresiba FlexTouch U-200] 200 unit/mL (3 mL) insulin pen 42 unit subcut BEDTIME Referrals: Physician,Unknown J [Physician] -
--- NOTE | 2023-05-30 12:10 | ECG_ITS ---
Test Reason : CHEST PAIN Blood Pressure : / mmHG Vent. Rate : 066 BPM Atrial Rate : 066 BPM P-R Int : 206 ms QRS Dur : 156 ms QT Int : 464 ms P-R-T Axes : 076 -44 091 degrees QTc Int : 486 ms Normal sinus rhythm Left axis deviation Left bundle branch block Abnormal ECG When compared with ECG of 04-MAR-2023 12:39, Premature atrial complexes are no longer Present Referred By: Hattie Montoya Electronically Signed By:ESVIN ERICKSON MD
[2023-05-30 12:31] LABS: MANUAL DIFF FLAG NO
[2023-05-30 12:33] LABS: Basophils Absolute Auto 0.1 X10*3/uL (0.0-0.2); Eosinophils Absolute Auto 0.2 X10*3/uL (0.0-0.4); Eosinophils Percent Auto 3.1 % (0-4); Hematocrit 42.3 % (37.0-47.0); Imm Gran Abs Auto 0.02 X10*3/uL (0.00-0.03); Imm Gran Pct Auto 0.3 % (0.0-0.4); Lymphocytes Absolute Auto 1.6 X10*3/uL (1.2-4.9); Lymphocytes Percent Auto 22.4 % (20-40); Mean Corpuscular HGB Conc 33.1 g/dl (31.0-35.0); Mean Corpuscular Volume 90.8 fL (80.0-98.0); Mean Platelet Volume 9.5 fL (9.4-12.3); Monocytes Absolute Auto 0.4 X10*3/uL (0.1-1.2); Monocytes Percent Auto 5.7 % (2-11); Neutrophils Absolute Auto 4.8 x10*3/uL (2.0-8.3); Neutrophils Percent Auto 67.5 % (45-73); Platelet Count 227 X10*3/uL (160-400); Red Blood Count 4.66 X10*6/uL (4.20-5.50); Red Cell Distribution Width 13.2 % (11.0-16.0)
[2023-05-30 12:42] LABS: INTERNATIONAL NORM RATIO 2.6 (0.9-1.1)
[2023-05-30 12:47] LABS: Alanine Aminotransferase 13 U/L (0-31); Albumin Level 3.9 g/dL (3.5-5.0); Alkaline Phosphatase 82 U/L (39-117); Anion Gap 17 (12-20); Aspartate Amino Transferase 9 U/L (5-31); Bilirubin Total 0.4 mg/dL (0.0-1.0); Blood Urea Nitrogen 43 mg/dL (9-16); Calcium 9.1 mg/dL (8.4-10.2); Carbon Dioxide 25 mmol/L (22-29); Chloride 97 mmol/L (96-108); Creatinine Clr Calc Pharmacy 33.3; Estimated Glomerular Filt Rate 26; Glucose Random 287 mg/dL (60-115); Magnesium 1.8 mg/dL (1.6-2.6); Potassium 4.1 mmol/L (3.3-5.1); Sodium 135 mmol/L (135-145); Total Protein 7.3 g/dL (6.5-8.0)
[2023-05-30 12:53] LABS: B Type Natriuretic Peptide 66 pg/mL (<100)
[2023-05-30 12:54] LABS: Troponin-I High Sensitivity 4.8 ng/L (<3.5-17.0)
[2023-05-30 13:26] LABS: Influenza A PCR NEGATIVE (Negative); Influenza B PCR NEGATIVE (Negative); Resp Syncy Virus RNA Qual PCR NEGATIVE (Negative); SARS COV2 PCR INHOUSE POSITIVE (Negative)
[2023-05-30 15:01] VITALS: BP 137/62; PULSE 61; RESP 20; TEMP 36.6; O2SAT 98
[2023-05-30 15:12] VITALS: BP 137/62; PULSE 61; RESP 20; TEMP 36.6; O2SAT 98
== END 2023-05-30 15:13 | disposition home or self-care (01) ==
LOC: HO.ED 15:10
PROVIDERS: Nurse Practitioner Family; Emergency Provider Emergency Medicine Emergency Medical Services; PCP Internal Medicine
DX: U07.1 COVID-19 (principal); E11.9 Type 2 diabetes mellitus without complications; I11.0 Hypertensive heart disease with heart failure; I50.9 Heart failure, unspecified; I48.0 Paroxysmal atrial fibrillation; Z79.01 Long term (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 of anticoagulants
CPT/HCPCS: 0241U; 36415; 71046; 80053; 83735; 83880; 84484; 85025; 85610; 93005; 99283

== ENCOUNTER → 2023-05-30 12:10 | Outpatient (BNV) | payer MEDICARE, SELFPAY | PROVIDERS: Emergency Provider Emergency Medicine Emergency Medical Services; PCP Internal Medicine; Visit Provider Internal Medicine Cardiovascular Disease | DX: R07.9 Chest pain, unspecified (principal) | CPT/HCPCS: 93010 ==

== ENCOUNTER 2023-06-06 13:11 | Outpatient (AMB) | payer MEDICARE, SELFPAY ==
[2023-06-06 13:24] LABS: Prothrombin Time Whole Bld POC 29.8 sec (11.1-13.5); ~PT, ~INR - Anti Coag Clinic 2.5 (0.9-1.1)
--- NOTE | 2023-06-06 13:41 | MHC.OFFVISCO ---
Intake Intake Visit Reasons: Anticoagulation Allergies red dye [Red Dye] Allergy (Severe, Verified 06/06/23 13:18) HIVES,THROAT CLOSES FROM RED FOOD DYE Medication List - Last Reconciled 06/06/23 by Jeanna Suarez RN albuterol sulfate 90 mcg/actuation 180 mcg inhalation Q6H PRN amiodarone 200 mg PO DAILY 90 days atorvastatin 40 mg PO DAILY blood sugar diagnostic (FreeStyle Lite Strips) As directed check sugar twice a day before meals blood-glucose meter (FreeStyle Lite Meter kit) As directed bumetanide 3 mg PO Q2D@0900 bumetanide 2 mg PO Q2D@0900 bumetanide 3 mg PO Q2D@2100 bumetanide 2 mg PO Q2D@2100 carvedilol 6.25 mg PO BID 90 days clotrimazole 1% (Athlete's Foot (clotrimazole)) 1 appl topical BID 4 weeks dulaglutide (Trulicity) 3 mg subcut FR@0900 insulin degludec (Tresiba FlexTouch U-200 insulin) 42 units subcut BEDTIME insulin lispro 12 units subcut TIDAC insulin syringe-needle U-100 (BD Veo Insulin Syringe Ultra-Fine) As directed twice a day lancets (FreeStyle Lancets) As directed losartan 25 mg PO DAILY nystatin (Nystop) 1 appl topical BID PRN pen needle, diabetic (BD Ultra-Fine Short Pen Needle) USE 4 times a day [scale-accommodate weight 300 lbs As directed] spironolactone 25 mg PO DAILY warfarin 5 mg See Protocol PO SUMOTUTHFRSA@1800 warfarin 2.5 mg See Protocol PO WE@1800 Nursing Note Pt to ACS. States she feels better. Has had laryngitis X3 weeks and voice remains hoarse at this time. Pt states she was at cardiac rehab 1 week ago and had chest pressure and was brought to ER. In the ER, she tested positive for Covid 19. Cardiac work up was negative. No medications were prescribed. INR today 2.5 in therapeutic range of 2-3 Medications and supplements reviewed: no changes. No changes in diet or supplements. Denies any signs and symptoms of bleeding or bruising or clotting. Bleeding, bruising, clotting discussed Nutritional guidance given to cont to balance greens and reds. Dose: 2.5mg X 2 days and 5mg X 5 days F/U INR: 1 week Patient verbalizes understanding of instructions given Anti-Coag Initial Assessment Social Hx Patient Tobacco Use Status: Never used Tobacco alcohol intake: never Alcohol intake frequency: does not drink Cardiovascular Hx: HTN, Angina, CAD, CHF, Arrhythmias, Varicose Veins and Other Lung Disease HX: Asthma Endocrine Hx: Diabetes Musculoskeletal Hx: Arthritis Blood Disorder Hx: Hyperlipidemia GI Hx: Ulcers, Bleeding (GI, rectal) and Other Hx: Kidney Disease Neurological Hx: Serious Head Injury and Migraines/Headaches 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 ) Psych. Illness/Depression: No Coding Level of Care Code Est Patient Level 1 Diagnoses Current use of anticoagulant therapy Z79.01 Results AMB INR Fingerstick AMB INR Fingerstick 2.5 Last Edit by Jeanna Suarez RN on 06/06/23 13:24 interface delay Assessment & Plan Assessment & Plan (1) Current use of anticoagulant therapy: Code(s): Z79.01 - [employer] (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 of anticoagulants Category: Medical
== END 2023-06-06 13:51 | disposition home or self-care (01) ==
LOC: HO.ACS 13:11
PROVIDERS: PCP Internal Medicine; Visit Provider Internal Medicine
DX: Z79.01 Long term (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 of anticoagulants (principal)

== ENCOUNTER → 2023-06-06 13:11 | Outpatient (BNVA) | payer MEDICARE, SELFPAY | PROVIDERS: PCP Internal Medicine; Visit Provider Internal Medicine | DX: I48.0 Paroxysmal atrial fibrillation (principal); Z79.01 Long term (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 of anticoagulants; Z51.81 Encounter for therapeutic drug level monitoring | CPT/HCPCS: 85610; 99211 ==

== ENCOUNTER 2023-06-10 11:55 | Outpatient (AMB) | payer MEDICARE, SELFPAY ==
[2023-06-10 11:57] VITALS: BP 122/66; PULSE 65; O2SAT 99; BMI 40.2
--- NOTE | 2023-06-10 11:57 | A.OFFPC_ITS ---
Vital Signs 06/10/23 11:57 Height 5 ft 4 in Weight 234 lb BMI 40.2 BP 122/66 Blood Pressure Location Lt brachial Position Sitting Pulse 65 Pulse Source Pulse Oximeter Pulse Oximetry (%) 99 Oxygen Delivery Method Room Air Intake Visit Reasons: 3 month follow up Lipids Intake Note: Pt is here today for her 3 mo. f/u lipids Allergies red dye [Red Dye] Allergy (Severe, Verified 06/10/23 14:34) HIVES,THROAT CLOSES FROM RED FOOD DYE Medication List - Last Reconciled 06/10/23 by Lily Menjivar MD albuterol sulfate 90 mcg/actuation 180 mcg inhalation Q6H PRN amiodarone 200 mg PO DAILY 90 days atorvastatin 40 mg PO DAILY blood sugar diagnostic (FreeStyle Lite Strips) As directed check sugar twice a day before meals blood-glucose meter (FreeStyle Lite Meter kit) As directed bumetanide 3 mg PO Q2D@0900 bumetanide 2 mg PO Q2D@0900 carvedilol 6.25 mg PO BID 90 days clotrimazole 1% (Athlete's Foot (clotrimazole)) 1 appl topical BID 4 weeks dulaglutide (Trulicity) 3 mg subcut FR@0900 insulin lispro 12 units subcut TIDAC insulin syringe-needle U-100 (BD Veo Insulin Syringe Ultra-Fine) As directed twice a day lancets (FreeStyle Lancets) As directed losartan 25 mg PO DAILY nystatin (Nystop) 1 appl topical BID PRN pen needle, diabetic (BD Ultra-Fine Short Pen Needle) USE 4 times a day [scale-accommodate weight 300 lbs As directed] spironolactone 25 mg PO DAILY warfarin 5 mg See Protocol PO SUMOTUTHFRSA@1800 Tobacco use date assessed: 06/10/23 Fall risk assessment: 1 Fall in past year Last assessed Fall Risk: 06/10/23 Dental Screening Dental Screen Date: 06/10/23 Did you have a dental visit in the last 12 months?: No Was dental information given to patient?: Patient declined HPI 3 month follow up Lipids HPI Details 68-year-old lady here today for follow-u p on her hyperlipidemia and hypertension. She is currently taking atorvastatin 40 mg daily with fasting lipids within normal limits. Blood pressure stable controlled on present treatment. She has paroxysmal atrial fibrillation currently on Coumadin, is scheduled for cardiac ablation in June [address] Goncalves , and is scheduled for placement of cardiac pacemaker in July 2023. She has poorly controlled diabetes mellitus has difficulty paying for her medications, currently in the process of getting it with the patient's distance program from her vessel slagman. She states that she missed her appointment with Dr. Cortez in April as she was admitted in the hospital recently. She is using her glucometer at home and states that her sugar has been ranging from between 150-200 mg per dL. Currently taking Trulicity 3 mg once a week and insulin lispro 12 units t.i.d. with meals, unable to afford Lantus, is trying to get patient assistance program for Basaglar.. FORMERLY [facility], [facility] Medical History (Updated 06/10/23 @ 14:40 by Lily Menjivar MD) History of COVID-19 Paroxysmal atrial fibrillation CHF (congestive heart failure) Left bundle branch block History of uterine cancer Personal history of malignant neoplasm of other parts of uterus Tinea pedis History of cardioversion Cardiomyopathy Coronary arteriosclerosis Ischemic cardiomyopathy Colonoscopy refused Incomplete left bundle branch block (LBBB) Post-menopausal bleeding Type 2 diabetes mellitus with hyperglycemia, with long-term current use of insulin Vitamin D deficiency Mixed dyslipidemia Papanicolaou smear declined Mammogram declined Osteoarthritis, knee Diabetic neuropathy History of esophagitis Mild intermittent asthma History of basal cell carcinoma Osteonecrosis of right hip Hiatal hernia History of cholelithiasis Morbid obesity Essential hypertension Type 2 diabetes mellitus with hyperglycemia, without long-term current use of insulin Irritable bowel syndrome (IBS) Surgical History (Updated 06/10/23 @ 12:48 by Lily Menjivar MD) S/P CLARE-BSO (total abdominal hysterectomy and bilateral salpingo-oophorectomy) S/P cardiac catheterization History of hysterectomy H/O hernia repair Hx of section History of hip surgery Hx of colonoscopy History of cholecystectomy Family History Father Myocardial infarction Cardiovascular disease Mother Diabetes mellitus Essential hypertension Daughter Anxiety disorder Mental health disorder Son Mental health disorder Social History Household Members: Spouse and Children Housing: House Are you a primary urgent care physician assistant to a significant other at home: No Do you presently have visiting nurse or other home services: No Alcohol intake: never Comment: pt refuses alarms Patient Tobacco Use Status: Never used Tobacco e-Cigarette/Vaping Use: Never Used Second Hand Smoke Exposure: No Advance Directives Date on File: 04/08/22 service: No Current occupational status: retired Current occupational exposures/hazards: No Cognitive needs: No Hearing needs: No Vision needs: Yes Questionnaire PHQ-9 Over the last 2 weeks, how often have you been bothered by any of the following problems? 1. Little interest or pleasure in doing things: not at all 2. Feeling down, depressed, or hopeless: not at all 3. Trouble falling or staying asleep, or sleeping too much: not at all 4. Feeling tired or having little energy: not at all 5. Poor appetite or overeating: not at all 6. Feeling bad about yourself - or that you are a failure or have let yourself or your family down: not at all 7. Trouble concentrating on things, such as reading the newspaper or watching television: not at all 8. Moving or speaking so slowly that other people could have noticed. Or the opposite - being so fidgety or restless that you have been moving around a lot more than usual: not at all 9. Thoughts that you would be better off or of hurting yourself in some way: not at all Total score: 0 Depression Screening Interpretation: Negative Depression Screening Done: Yes 70371 - PHQ-9 Billing: Yes Source: Developed by Drs. Uriel Falk, Rosie Felipe, Hasmukh Kumar and colleagues, with an educational sandra from [employer]. Thrive Questionnaire Date Thrive assessed: 06/10/23 I am a: Patient What is your living situation today?: I have a steady place to live Within the past 12 months, did the food you bought not last and you didn't have the money to get more?: Never true Within the past 12 months, did you worry whether your food would run out before you got money to buy more?: Never true Do you have trouble paying for medicines?: No Do you have trouble getting transportation to medical appointments?: No Do you have trouble paying your heating and electricity bill?: No Do you have trouble taking care of your child, family member or friend?: No Do you have trouble with day-to-day activities such as bathing, preparing meals, shopping, managing finances, etc.?: No Are you currently unemployed and looking for a job?: No Are you interested in more education?: No THRIVE Score: 0 AUDIT C Alcohol Use Questionnaire (AUDIT-C) 1. How often do you have a drink containing alcohol?: Never Total Score: 0 HUMAIRA-7 AMB Questionnaire HUMAIRA-7 Date HUMAIRA - 7 assessed: 06/10/23 Feeling nervous, anxious, or on edge: 0 = Not at all Not being able to stop or control worryin = Not at all Worrying too much about different things: 0 = Not at all Trouble relaxin = Not at all Being so restless that it is hard to sit still: 0 = Not at all Becoming easily annoyed or irritable: 0 = Not at all Feeling afraid as if something awful might happen: 0 = Not at all Total HUMAIRA-7 score (0-4 normal; 5-9 mild; 10-14 moderate; 15-21 severe): 0 Source: Developed by Drs. Uriel Falk, Rosie Felipe, Hasmukh Kumar and colleagues, with an educational sandra from [employer]. HUMAIRA-7 Assessment Billing HUMAIRA-7 Assessment Tool: HUMAIRA-7 Assessment 03343 Review of Systems Const Reports no additional complaints Eyes Denies change in vision ENT Reports no additional complaints Card Denies chest pain, Denies chest pain at rest, Denies chest pain with activity, Denies pedal edema and Denies dyspnea Resp Reports cough (Occasional dry cough), Denies excessive phlegm production, Denies dyspnea and Denies wheezing GI Denies abdominal pain, Denies melena, Denies hematochezia and Denies change in bowel habits Reports no additional complaints Musc Denies abnormal gait, Denies muscle cramps and Denies radiating pain into limb Skin/Breast Denies skin ulcer and Denies wounds Neuro Denies abnormal gait Psych Reports no additional complaints Endo Reports as per HPI and Reports polyuria Jace/Lymph Reports easy bruising Aller/Immun Denies wheezing Physical exam (Primary Care) Vital Signs: Last Vital Signs Pulse 65 06/10/23 11:57 BP 122/66 06/10/23 11:57 Pulse Ox 99 06/10/23 11:57 Oxygen Delivery Method Room Air 06/10/23 11:57 BMI result Body Mass Index 40.2 Tobacco/Smoking Status: Tobacco use Status Tobacco use date assessed 06/10/23 06/10/23 12:06 Patient Tobacco Use Status Never used Tobacco 06/10/23 12:06 e-Cigarette/Vaping Use Never Used 06/10/23 12:06 PHQ-9: PHQ-9 Score PHQ-9: Total score 0 06/10/23 12:19 Depression Screening Interpretation: Negative Thrive Assessment: Date of Thrive Assessment Date Thrive assessed 06/10/23 06/10/23 12:06 Const General: comfortable, no acute distress and awake Nutritional Appearance: obese Orientation/consciousness: patient oriented x3 HENMT Ears: external ears normal General nose exam: Normal external nose present and No nasal discharge present Mouth: oropharynx normal and moist mucous membranes Eyes General: appearance normal, both eyes and all related structures Neck Neck: Yes full ROM, Yes no lymphadenopathy and Yes supple Resp Effort & Inspection: normal respiratory effort and able to speak in complete sentences Auscultation: clear to auscultation bilaterally Cardio Rate: regular rate Rhythm: regular rhythm Heart sounds: S1 normal heart sound present and S2 normal heart sound present GI Inspection: Yes Abdominal panniculus present and Yes obesity Palpation (GI): Soft to palpation, nontender and no guarding Auscultation: normal bowel sounds General: Yes no CVA tenderness Back/Spine/Pelvis Back: no CVA tenderness and No back tenderness Skin General skin exam: no rashes or lesions noted Neuro General: patient oriented x3, gait normal, tone normal, moves all extremities, Normal light touch and pain sensation and no focal motor deficits Cognition (Neuro): normal cognition Gait exam (Neuro): Normal gait present Motor exam (neuro): 5/5 motor strength present throughout Extrem Other: Trace ankle swelling General: Yes full ROM, Yes no joint enlargement, Yes no calf tenderness and Yes normal gait Results Reviewed Results Reviewed: SPEC : [id number] XIMENA: 05/30/23 STATUS: COMP REQ : [id number] RECD: 05/30/[address]: Hattie Montoya CNP COMP: 05/30/23 ENTERED: 05/30/[address]: Physician,Unknown ORDERED: CBC Auto Diff Test Result Flag Reference WBC 7.0 4.8-10.8 X10*3/uL RBC 4.66 4.20-5.50 X10*6/uL HGB 14.0 12.0-16.0 g/dl HCT 42.3 37.0-47.0 % MCV 90.8 80.0-98.0 fL MCH 30.0 27.0-33.0 pg MCHC 33.1 31.0-35.0 g/dl RDW 13.2 11.0-16.0 % PLT 227 160-400 X10*3/uL MPV 9.5 9.4-12.3 fL Neut Pct Auto 67.5 45-73 % ImGran Pct Auto 0.3 0.0-0.4 % Lymp Pct Auto 22.4 20-40 % Cloud Pct Auto 5.7 2-11 % Eos Pct Auto 3.1 0-4 % Baso Pct Auto 1.0 0-2 % NRBC Pct Auto 0.0 0.0-0.2 /100WBC ANC Neut Abs # 4.8 2.0-8.3 x10*3/uL ImGran Abs Auto 0.02 0.00-0.03 X10*3/uL Lymph Abs Auto 1.6 1.2-4.9 X10*3/uL Cloud Abs Auto 0.4 0.1-1.2 X10*3/uL Eos Abs Auto 0.2 0.0-0.4 X10*3/uL Baso Abs Auto 0.1 0.0-0.2 X10*3/uL NRBC Abs Auto 0.000 0.0-0.012 X10*3/uL Name: July Dorantes Age/Sex: 68/F : 1955 Unit#: [id number] Attend Dr: Lily Menjivar MD Re05/29/23 Status: DEP REF Location: [facility] Disch: SPEC : [id number] XIMENA: 05/29/23 STATUS: COMP REQ : [id number] RECD: 05/29/[address]: Lily Menjivar MD COMP: 05/29/23 ENTERED: 05/29/[address] [facility] [address]: ORDERED: Met Prof Fast, AST, ALT, Lipid Panel Test Result Flag Reference Sodium 136 135-145 mmol/L Potassium 3.8 3.3-5.1 mmol/L CL 96 96-108 mmol/L CO2 27 22-29 mmol/L Gap 17 12-20 BUN 37 H 9-16 mg/dL Creat 1.53 H 0.5-1.4 mg/dL EGFR 34 NOTE: For -[place] individuals, multiply the result by 1.210. Chronic Kidney Disease: Estimated GFR < 60 mL/min/1.73m2 Severe Kidney Disease: Estimated GFR < 15 mL/min/1.73m2 FBS 233 H 60-99 mg/dL A fasting glucose of 126 mg/dl or greater on more than one occasion is considered diagnostic of diabetes. CA 8.8 8.4-10.2 mg/dL AST (GOT) 12 5-31 U/L ALT (GPT) 13 0-31 U/L Triglyceride 245 H <150 mg/dL Desirable Triglyceride: less than 150 mg/dL Borderline High Triglyceride 150-199 mg/dL High Triglyceride: 200-499 mg/dL Very High Triglyceride: greater than or equal to 5OO mg/dL Cholesterol 165 <200 mg/dL Desirable Cholesterol: less than 200 mg/dL Borderline High Cholesterol: 200-239 mg/dL High Cholesterol: greater than 239 mg/dL LDL Calculated 71 <100 mg/dL Desirable LDL: less than 100 mg/dL Near Optimal/Above Optimal LDL: 110-129 mg/dL Borderline High LDL: 130-159 mg/dL High LDL: 160-189 mg/dL Very High LDL: greater than or equal to 190 mg/dL HDL 45 >40 mg/dL Desirable HDL: greater than 40 mg/dL Note: This HDL assay may give artificially Assessment and Plan Assessment & Plan (1) CKD (chronic kidney disease) stage 3, GFR 30-59 ml/min: Code(s): N18.30 - Chronic kidney disease, stage 3 unspecified Qualifiers: Chronic kidney disease stage 3 subtype: unspecified whether 3a or 3b Qualified Code(s): N18.30 - Chronic kidney disease, stage 3 unspecified Plan: Obtain nephrology consult with Dr. Malin. Avoid NSAIDs, and reinforced importance of getting diabetes mellitus under control (2) Paroxysmal atrial fibrillation: Code(s): I48.0 - Paroxysmal atrial fibrillation Plan: Followed by cardiology, Dr. Goncalves and Dr. Storey , scheduled for cardiac ablation 07/02/2023 and for pacemaker placement in July 2023. Current currently anticoagulated with Coumadin (3) Essential hypertension: Code(s): I10 - Essential (primary) hypertension Plan: Blood pressure at goal of less than 130/80. Continue with current medication. Reinforced importance of following a low sodium diet, getting regular exercise, and lowering stress levels. (4) Mixed dyslipidemia: Code(s): E78.2 - Mixed hyperlipidemia Plan: Reviewed recent fasting lipid profile with patient with levels within normal . Continue atorvastatin daily , in addition to adherence to low-cholesterol diet and regular exercise, at least 30 minutes 3 to 4 times a week. Advised patient to make healthy food choices, eat more fruits, vegetables, whole grains, wild caught fish and low-fat dairy. Limit amount of meat and fried or fatty food products, as well as processed foods and fast foods. Follow-up scheduled with repeat fasting lipid panel in 3 months. (5) Type 2 diabetes mellitus with hyperglycemia, with long-term current use of insulin: Code(s): E11.65 - Type 2 diabetes mellitus with hyperglycemia; Z79.4 - senior living (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 of insulin Plan: Followed by Dr. Cortez, advised to reschedule missed appointment. Currently on Trulicity and insulin lispro, waiting for her Basaglar which she is trying to get from from the patient' assistance program. Will have her see Dede xavier nurse navigator to see if she will be able to get freestyle Tabatha Orders: Referrals Nephrology Referral I10 - Essential (primary) hypertension, N18.30 - Chronic kidney disease, stage 3 unspecified Coding Level of Care Code Est Pt Level 4 (85564) Diagnoses Stage 3 chronic kidney disease, unspecified whether stage 3a or 3b CKD N18.30 Chronic kidney disease stage 3 subtype: unspecified whether 3a or 3b Paroxysmal atrial fibrillation I48.0 Essential hypertension I10 Mixed dyslipidemia E78.2 Type 2 diabetes mellitus with hyperglycemia, with long-term current use of insulin E11.65; Z79.4 Additional Codes HUMAIRA-7 Assessment Billing - HUMAIRA-7 Assessment Tool: HUMAIRA-7 Assessment 22697 ([id number])
== END 2023-06-10 12:40 | disposition home or self-care (01) ==
PROVIDERS: PCP Internal Medicine; Visit Provider Internal Medicine
DX: E11.65 Type 2 diabetes mellitus with hyperglycemia (principal); N18.30 Chronic kidney disease, stage 3 unspecified; I48.0 Paroxysmal atrial fibrillation; Z79.4 Long term (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 of insulin; I12.9 Hypertensive chronic kidney disease with stage 1 through stage 4 chronic kidney disease, or unspecified chronic kidney disease; E78.2 Mixed hyperlipidemia
CPT/HCPCS: 99214

== ENCOUNTER 2023-06-13 13:37 | Outpatient (AMB) | payer MEDICARE, SELFPAY ==
[2023-06-13 13:54] LABS: Prothrombin Time Whole Bld POC 24.8 sec (11.1-13.5); ~PT, ~INR - Anti Coag Clinic 2.1 (0.9-1.1)
--- NOTE | 2023-06-13 14:03 | MHC.OFFVISCO ---
Intake Intake Visit Reasons: Anticoagulation Allergies red dye [Red Dye] Allergy (Severe, Verified 06/13/23 13:49) HIVES,THROAT CLOSES FROM RED FOOD DYE Medication List - Last Reconciled 06/13/23 by Jeanna Suarez RN albuterol sulfate 90 mcg/actuation 180 mcg inhalation Q6H PRN amiodarone 200 mg PO DAILY 90 days atorvastatin 40 mg PO DAILY blood sugar diagnostic (FreeStyle Lite Strips) As directed check sugar twice a day before meals blood-glucose meter (FreeStyle Lite Meter kit) As directed bumetanide 3 mg PO Q2D@0900 bumetanide 2 mg PO Q2D@0900 carvedilol 6.25 mg PO BID 90 days clotrimazole 1% (Athlete's Foot (clotrimazole)) 1 appl topical BID 4 weeks dulaglutide (Trulicity) 3 mg subcut FR@0900 insulin lispro 12 units subcut TIDAC insulin syringe-needle U-100 (BD Veo Insulin Syringe Ultra-Fine) As directed twice a day lancets (FreeStyle Lancets) As directed losartan 25 mg PO DAILY nystatin (Nystop) 1 appl topical BID PRN pen needle, diabetic (BD Ultra-Fine Short Pen Needle) USE 4 times a day [scale-accommodate weight 300 lbs As directed] spironolactone 25 mg PO DAILY warfarin 5 mg See Protocol PO SUMOTUTHFRSA@1800 Nursing Note INR: 2.1 in therapeutic range of 2-3 Medications and supplements reviewed: no changes No changes in health, diet, medications, or supplements, Denies any signs and symptoms of bleeding or bruising or clotting. Bleeding, bruising, clotting discussed Nutritional guidance given to cont to balance reds and greens Dose: 2.5mg X 2 days and 5mg X 5 days F/U INR: 1 week Patient verbalizes understanding of instructions given Anti-Coag Initial Assessment Social Hx Patient Tobacco Use Status: Never used Tobacco alcohol intake: never Alcohol intake frequency: does not drink Cardiovascular Hx: HTN, Angina, CAD, CHF, Arrhythmias, Varicose Veins and Other Lung Disease HX: Asthma Endocrine Hx: Diabetes Musculoskeletal Hx: Arthritis Blood Disorder Hx: Hyperlipidemia GI Hx: Ulcers, Bleeding (GI, rectal) and Other Hx: Kidney Disease Neurological Hx: Serious Head Injury and Migraines/Headaches 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 ) Psych. Illness/Depression: No Coding Level of Care Code Est Patient Level 1 Diagnoses Current use of anticoagulant therapy Z79.01 Assessment & Plan Assessment & Plan (1) Current use of anticoagulant therapy: Code(s): Z79.01 - roasterman (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 of anticoagulants Category: Medical
== END 2023-06-13 14:16 | disposition home or self-care (01) ==
LOC: HO.ACS 13:37
PROVIDERS: PCP Internal Medicine; Visit Provider Internal Medicine
DX: Z79.01 Long term (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 of anticoagulants (principal)

== ENCOUNTER → 2023-06-13 13:37 | Outpatient (BNVA) | payer MEDICARE, SELFPAY | PROVIDERS: PCP Internal Medicine; Visit Provider Internal Medicine | DX: I48.0 Paroxysmal atrial fibrillation (principal); Z79.01 Long term (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 of anticoagulants; Z51.81 Encounter for therapeutic drug level monitoring | CPT/HCPCS: 85610; 99211 ==

== ENCOUNTER 2023-06-17 12:22 | Outpatient (AMB) | payer MEDICARE, SELFPAY ==
--- NOTE | 2023-06-17 12:47 | A.OFFVIS_ITS ---
Intake Intake Visit Reasons: dm/LVM Instrument Technologist Required: No Accompanied by: Self / Same As Patient Allergies red dye [Red Dye] Allergy (Severe, Verified 06/13/23 13:49) HIVES,THROAT CLOSES FROM RED FOOD DYE HPI Comprehensive Diabetes Asmnt Most Recent Diabetes Results: Hemoglobin A1c 9.6 % 06/30/19 Microalb/Creat Ratio 19.4 ug/mg cr 09/21/21 Cholesterol 165 mg/dL (<200) 05/29/23 HDL Cholesterol 45 mg/dL (>40) 05/29/23 Triglycerides 245 mg/dL (<150) H 05/29/23 Creatinine 1.94 mg/dL (0.5-1.4) H 05/30/23 Blood Urea Nitrogen 43 mg/dL (9-16) H 05/30/23 Sodium 135 mmol/L (135-145) 05/30/23 Potassium 4.1 mmol/L (3.3-5.1) 05/30/23 Chloride 97 mmol/L (96-108) 05/30/23 Carbon Dioxide 25 mmol/L (22-29) 05/30/23 Calcium 9.1 mg/dL (8.4-10.2) 05/30/23 AST 9 U/L (5-31) 05/30/23 ALT 13 U/L (0-31) 05/30/23 Total Protein 7.3 g/dL (6.5-8.0) 05/30/23 Albumin 3.9 g/dL (3.5-5.0) 05/30/23 [facility] Medical History (Updated 06/10/23 @ 14:40 by Lily Menjivar MD) History of COVID-19 Paroxysmal atrial fibrillation CHF (congestive heart failure) Left bundle branch block History of uterine cancer Personal history of malignant neoplasm of other parts of uterus Tinea pedis History of cardioversion Cardiomyopathy Coronary arteriosclerosis Ischemic cardiomyopathy Colonoscopy refused Incomplete left bundle branch block (LBBB) Post-menopausal bleeding Type 2 diabetes mellitus with hyperglycemia, with long-term current use of insulin Vitamin D deficiency Mixed dyslipidemia Papanicolaou smear declined Mammogram declined Osteoarthritis, knee Diabetic neuropathy History of esophagitis Mild intermittent asthma History of basal cell carcinoma Osteonecrosis of right hip Hiatal hernia History of cholelithiasis Morbid obesity Essential hypertension Type 2 diabetes mellitus with hyperglycemia, without long-term current use of insulin Irritable bowel syndrome (IBS) Surgical History (Updated 06/10/23 @ 12:48 by Lily Menjivar MD) S/P CLARE-BSO (total abdominal hysterectomy and bilateral salpingo-oophorectomy) S/P cardiac catheterization History of hysterectomy H/O hernia repair Hx of section History of hip surgery Hx of colonoscopy History of cholecystectomy Family History Father Myocardial infarction Cardiovascular disease Mother Diabetes mellitus Essential hypertension Daughter Anxiety disorder Mental health disorder Son Mental health disorder Social History Household Members: Spouse and Children Housing: House Are you a primary residential care facility manager to a significant other at home: No Do you presently have visiting nurse or other home services: No Alcohol intake: never Comment: pt refuses alarms Patient Tobacco Use Status: Never used Tobacco e-Cigarette/Vaping Use: Never Used Second Hand Smoke Exposure: No Advance Directives Date on File: 04/08/22 service: No Current occupational status: retired Current occupational exposures/hazards: No Cognitive needs: No Hearing needs: No Vision needs: Yes Assessment & Plan Assessment & Plan (1) Type 2 diabetes mellitus with hyperglycemia, with long-term current use of insulin: Code(s): E11.65 - Type 2 diabetes mellitus with hyperglycemia; Z79.4 - remote computer terminal operator (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 of insulin Plan: Patient at visit for follow-up blood glucose check, and diabetes education Patient's last A1c on 05/29/2023 9.3% Patient has not been taking basal insulin, patient reports she cannot afford co- pay. Patient is currently taking lispro before meals, and Trulicity 3 mg Printed [employer] application for patient, suggested patient asked for Basaglar, Trulicity, and Humalog on application. Patient reports she fill and mail back Patient denies food insecurity in housing insecurity Patient reports blood sugars below: Date Breakfast/Fasting Pre-Lunch Pre-Supper Bedtime Notes 06/16 218 190 06/15 234 06/12 277 06/11 209 06/10 212 06/08 223 06/05 264 Patient Instructions: Patient will mail back [employer] application Patient will follow-up with critical care educator in 1 month Patient will schedule appointment with Dr. Cortez Coding Level of Care Code Est Pt Level 1 (16531) Diagnoses Type 2 diabetes mellitus with hyperglycemia, with long-term current use of insulin E11.65; Z79.4
== END 2023-06-17 12:51 | disposition home or self-care (01) ==
PROVIDERS: PCP Internal Medicine; Visit Provider Registered Nurse Diabetes Educator
DX: E11.65 Type 2 diabetes mellitus with hyperglycemia (principal); Z79.4 Long term (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 of insulin

== ENCOUNTER → 2023-06-17 12:22 | Outpatient (BNVA) | payer MEDICARE, SELFPAY | PROVIDERS: PCP Internal Medicine; Visit Provider Registered Nurse Diabetes Educator | DX: E11.65 Type 2 diabetes mellitus with hyperglycemia (principal); Z79.4 Long term (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 of insulin | CPT/HCPCS: 99211 ==

== ENCOUNTER 2023-06-20 13:28 | Outpatient (AMB) | payer MEDICARE, SELFPAY ==
[2023-06-20 13:54] LABS: Prothrombin Time Whole Bld POC 26.9 sec (11.1-13.5); ~PT, ~INR - Anti Coag Clinic 2.2 (0.9-1.1)
--- NOTE | 2023-06-20 14:00 | MHC.OFFVISCO ---
Intake Intake Visit Reasons: Anticoagulation Allergies red dye [Red Dye] Allergy (Severe, Verified 06/20/23 13:48) HIVES,THROAT CLOSES FROM RED FOOD DYE Medication List - Last Reconciled 06/20/23 by Marybeth Timmons RN albuterol sulfate 90 mcg/actuation 180 mcg inhalation Q6H PRN amiodarone 200 mg PO DAILY 90 days atorvastatin 40 mg PO DAILY blood sugar diagnostic (FreeStyle Lite Strips) As directed check sugar twice a day before meals blood-glucose meter (FreeStyle Lite Meter kit) As directed bumetanide 3 mg PO Q2D@0900 bumetanide 2 mg PO Q2D@0900 carvedilol 6.25 mg PO BID 90 days clotrimazole 1% (Athlete's Foot (clotrimazole)) 1 appl topical BID 4 weeks dulaglutide (Trulicity) 3 mg subcut FR@0900 insulin lispro 12 units subcut TIDAC insulin syringe-needle U-100 (BD Veo Insulin Syringe Ultra-Fine) As directed twice a day lancets (FreeStyle Lancets) As directed losartan 25 mg PO DAILY nystatin (Nystop) 1 appl topical BID PRN pen needle, diabetic (BD Ultra-Fine Short Pen Needle) USE 4 times a day [scale-accommodate weight 300 lbs As directed] spironolactone 25 mg PO DAILY warfarin 5 mg See Protocol PO SUMOTUTHFRSA@1800 Nursing Note Pt to have cardiac ablation 07/02/23 with [facility] Dr Hinojosa - to have INR 3 days prior - that would be the weekend and office closed 06/30/23 call to [facility] for warfarin instructions for procedure along with INR planning INR: 2.2 in therapeutic range Medications and supplements reviewed No changes in health, diet, medications, or supplements, Denies any signs and symptoms of bleeding or bruising or clotting. Bleeding, bruising, clotting discussed Nutritional guidance given Dose: 2.5MG X 2 DAYS/ 5MG X 5 DAYS F/U INR: 1 WEEK 06/27/23 - PRIOR ABLATION 07/02/23 Patient verbalizes understanding of instructions given call to skilled laborer Dr Guadalupe regarding warfarin hold and INR on 06/27/23 spoke Janet to convey msg to cardiology Anti-Coag Initial Assessment Social Hx Patient Tobacco Use Status: Never used Tobacco alcohol intake: never Alcohol intake frequency: does not drink Cardiovascular Hx: HTN, Angina, CAD, CHF, Arrhythmias, Varicose Veins and Other Lung Disease HX: Asthma Endocrine Hx: Diabetes Musculoskeletal Hx: Arthritis Blood Disorder Hx: Hyperlipidemia GI Hx: Ulcers, Bleeding (GI, rectal) and Other Hx: Kidney Disease Neurological Hx: Serious Head Injury and Migraines/Headaches 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 ) Psych. 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
== END 2023-06-20 14:07 | disposition home or self-care (01) ==
LOC: HO.ACS 13:28
PROVIDERS: PCP Internal Medicine; Visit Provider Internal Medicine
DX: Z79.01 Long term (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 of anticoagulants (principal)

== ENCOUNTER → 2023-06-20 13:28 | Outpatient (BNVA) | payer MEDICARE, SELFPAY | PROVIDERS: PCP Internal Medicine; Visit Provider Internal Medicine | DX: I48.0 Paroxysmal atrial fibrillation (principal); Z79.01 Long term (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 of anticoagulants; Z51.81 Encounter for therapeutic drug level monitoring | CPT/HCPCS: 85610; 99211 ==

== ENCOUNTER 2023-06-27 14:45 | Outpatient (AMB) | payer MEDICARE, SELFPAY ==
--- NOTE | 2023-06-27 14:54 | MHC.OFFVISCO ---
Intake Intake Visit Reasons: Anticoagulation Allergies red dye [Red Dye] Allergy (Severe, Verified 06/27/23 14:47) HIVES,THROAT CLOSES FROM RED FOOD DYE Medication List - Last Reconciled 06/27/23 by Jeanna Suarez RN albuterol sulfate 90 mcg/actuation 180 mcg inhalation Q6H PRN amiodarone 200 mg PO DAILY 90 days atorvastatin 40 mg PO DAILY blood sugar diagnostic (FreeStyle Lite Strips) As directed check sugar twice a day before meals blood-glucose meter (FreeStyle Lite Meter kit) As directed bumetanide 3 mg PO Q2D@0900 bumetanide 2 mg PO Q2D@0900 carvedilol 6.25 mg PO BID 90 days clotrimazole 1% (Athlete's Foot (clotrimazole)) 1 appl topical BID 4 weeks dulaglutide (Trulicity) 3 mg subcut FR@0900 insulin lispro 5 units (0.05 mL) subcut TID insulin syringe-needle U-100 (BD Veo Insulin Syringe Ultra-Fine) As directed twice a day lancets (FreeStyle Lancets) As directed losartan 25 mg PO DAILY nystatin (Nystop) 1 appl topical BID PRN pen needle, diabetic (BD Ultra-Fine Short Pen Needle) USE 4 times a day [scale-accommodate weight 300 lbs As directed] spironolactone 25 mg PO DAILY warfarin 5 mg See Protocol PO SUMOTUTHFRSA@1800 Nursing Note To [facility], feels well. Scheduled for card ablation on 07/01. INR: 3.0 in therapeutic range of 2-3 Medications and supplements reviewed: no changes No changes in health, diet, medications, or supplements, Denies any signs and symptoms of bleeding or bruising or clotting. Bleeding, bruising, clotting discussed Nutritional guidance given to have greens today and avoid reds Dose: cont usual dose of 2.5mg X2 days and 5mg X5 days F/U INR: 1 week Patient verbalizes understanding of instructions given Faxed INR result to [facility] [phone] Attn Nursing Anti-Coag Initial Assessment Social Hx Patient Tobacco Use Status: Never used Tobacco alcohol intake: never Alcohol intake frequency: does not drink Cardiovascular Hx: HTN, Angina, CAD, CHF, Arrhythmias, Varicose Veins and Other Lung Disease HX: Asthma Endocrine Hx: Diabetes Musculoskeletal Hx: Arthritis Blood Disorder Hx: Hyperlipidemia GI Hx: Ulcers, Bleeding (GI, rectal) and Other Hx: Kidney Disease Neurological Hx: Serious Head Injury and Migraines/Headaches 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 ) Psych. Illness/Depression: No Coding Level of Care Code Est Patient Level 1 Diagnoses Current use of anticoagulant therapy Z79.01 Results AMB INR Fingerstick AMB INR Fingerstick 3.0 Last Edit by Jeanna Suarez RN on 06/27/23 14:55 interface delay Assessment & Plan Assessment & Plan (1) Current use of anticoagulant therapy: Code(s): Z79.01 - long-term (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 of anticoagulants Category: Medical
[2023-06-27 15:01] LABS: Prothrombin Time Whole Bld POC 36.2 sec (11.1-13.5)
== END 2023-06-27 15:14 | disposition home or self-care (01) ==
LOC: HO.ACS 14:45
PROVIDERS: PCP Internal Medicine; Visit Provider Internal Medicine
DX: Z79.01 Long term (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 of anticoagulants (principal)

== ENCOUNTER 2023-07-04 13:30 | Outpatient (RCR) | payer MEDICARE, SELFPAY ==
[2023-04-21 13:40] LABS: Glucose, Whole Blood 285 mg/dL (60-115)
[2023-05-16 14:31] LABS: Glucose, Whole Blood 186 mg/dL (60-115)
== END 2023-07-28 10:26 | disposition home or self-care (01) ==
LOC: HO.CR 13:30
PROVIDERS: PCP Internal Medicine; Visit Provider Internal Medicine Cardiovascular Disease
DX: I50.20 Unspecified systolic (congestive) heart failure (principal); Z98.61 Coronary angioplasty status; Z51.81 Encounter for therapeutic drug level monitoring; Z79.01 Long term (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 of anticoagulants
CPT/HCPCS: 82947; 85610; 93798; 99211

== ENCOUNTER 2023-07-11 13:24 | Outpatient (AMB) | payer MEDICARE, SELFPAY ==
[2023-07-11 13:41] LABS: ~PT, ~INR - Anti Coag Clinic 1.2 (0.9-1.1)
--- NOTE | 2023-07-11 13:55 | MHC.OFFVISCO ---
Intake Intake Visit Reasons: Anticoagulation Allergies red dye [Red Dye] Allergy (Severe, Verified 07/11/23 13:31) HIVES,THROAT CLOSES FROM RED FOOD DYE Medication List - Last Reconciled 07/11/23 by Jeanna Suarez RN albuterol sulfate 90 mcg/actuation 180 mcg inhalation Q6H PRN atorvastatin 40 mg PO DAILY blood sugar diagnostic (FreeStyle Lite Strips) As directed check sugar twice a day before meals blood-glucose meter (FreeStyle Lite Meter kit) As directed bumetanide 3 mg PO Q2D@0900 bumetanide 2 mg PO Q2D@0900 carvedilol 6.25 mg PO BID 90 days clotrimazole 1% (Athlete's Foot (clotrimazole)) 1 appl topical BID 4 weeks dulaglutide (Trulicity) 3 mg subcut FR@0900 insulin lispro 5 units (0.05 mL) subcut TID insulin syringe-needle U-100 (BD Veo Insulin Syringe Ultra-Fine) As directed twice a day lancets (FreeStyle Lancets) As directed losartan 25 mg PO DAILY nystatin (Nystop) 1 appl topical BID PRN pen needle, diabetic (BD Ultra-Fine Short Pen Needle) USE 4 times a day [scale-accommodate weight 300 lbs As directed] spironolactone 25 mg PO DAILY warfarin 5 mg See Protocol PO SUMOTUTHFRSA@1800 Nursing Note INR 1.2 out of therapeutic range of 2-3 PT S/P CARDIAC ABLATION ON 07/01. HAS EDEMA OF BOTH LOWER EXTREMITIES AND LARGE BRUISING BILAT THIGHS TO GROIN. WARFARIN HAD BEEN HELD UNTIL 07/06/23. Medications and supplements reviewed: AMIODARONE DISCONTINUED STARTED AMOXICILLAN FOR UTI Patient status: ABOVE PT CONCERNED ABOUT BRUISING Diet: PT WILL AVOID GREENS TODAY AND TOMORROW THEN WILL BALANCE REDS AND GREENS Dose: INCREASED TODAY'S DOSE TO 7.5MG (5MG), 5MG TOMORROW (USUAL DOSE), THEN 5 MG NEXT DAY (INCREASED FROM 2.5MG) F/U INR Date : 07/14/23?? Patient verbalizing understanding of instructions given. 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 ) Psych. Illness/Depression: No Coding Level of Care Code Est Patient Level 1 Diagnoses Current use of anticoagulant therapy Z79.01 Results AMB INR Fingerstick AMB INR Fingerstick 1.2 Last Edit by Jeanna Suarez RN on 07/11/23 13:48 interface delay Assessment & Plan Assessment & Plan (1) Current use of anticoagulant therapy: Code(s): Z79.01 - longterm (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 of anticoagulants Category: Medical
== END 2023-07-11 14:12 | disposition home or self-care (01) ==
LOC: HO.ACS 13:24
PROVIDERS: PCP Internal Medicine; Visit Provider Internal Medicine
DX: Z79.01 Long term (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 of anticoagulants (principal)

== ENCOUNTER → 2023-07-11 13:24 | Outpatient (BNVA) | payer MEDICARE, SELFPAY | PROVIDERS: PCP Internal Medicine; Visit Provider Internal Medicine | DX: I48.0 Paroxysmal atrial fibrillation (principal); Z51.81 Encounter for therapeutic drug level monitoring; Z79.01 Long term (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 of anticoagulants | CPT/HCPCS: 85610; 99211 ==

== ENCOUNTER 2023-07-14 09:08 | Outpatient (AMB) | payer MEDICARE, SELFPAY ==
--- NOTE | 2023-07-14 09:13 | MHC.OFFVISCO ---
Intake Intake Visit Reasons: Anticoagulation Allergies red dye [Red Dye] Allergy (Severe, Verified 07/11/23 13:31) HIVES,THROAT CLOSES FROM RED FOOD DYE Nursing Note INR: 1.4 out of therapeutic range of 2-3 Pt is S/P ablation on 07/02/23. Warfarin had been held 07/01-07/05 Medications and supplements reviewed: continues off amiodarone and has 1 day remaining on amoxicillan No changes in health, diet, medications, or supplements, Denies any signs and symptoms of bleeding or clotting. Has large bruising both thighs to groin but slightly improved per pt. Bleeding, bruising, clotting discussed Nutritional guidance given to avoid greens and to review the food list and have foods that will raise the INR Dose: 7.5mg today, then 5 mg, then 7.5mg and 5mg the next day F/U INR: 4 days 07/18/23 Patient verbalizes understanding of instructions given Anti-Coag Initial Assessment Social Hx Patient Tobacco Use Status: Never used Tobacco alcohol intake: never Alcohol intake frequency: does not drink Cardiovascular Hx: HTN, Angina, CAD, CHF, Arrhythmias, Varicose Veins and Other Lung Disease HX: Asthma Endocrine Hx: Diabetes Musculoskeletal Hx: Arthritis Blood Disorder Hx: Hyperlipidemia GI Hx: Ulcers, Bleeding (GI, rectal) and Other Hx: Kidney Disease Neurological Hx: Serious Head Injury and Migraines/Headaches 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 ) Psych. 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
[2023-07-14 09:28] LABS: Prothrombin Time Whole Bld POC 16.8 sec (11.1-13.5); ~PT, ~INR - Anti Coag Clinic 1.4 (0.9-1.1)
== END 2023-07-14 09:50 | disposition home or self-care (01) ==
LOC: HO.ACS 09:08
PROVIDERS: PCP Internal Medicine; Visit Provider Internal Medicine
DX: Z79.01 Long term (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 of anticoagulants (principal)

== ENCOUNTER → 2023-07-14 09:08 | Outpatient (BNVA) | payer MEDICARE, SELFPAY | PROVIDERS: PCP Internal Medicine; Visit Provider Internal Medicine | DX: I48.0 Paroxysmal atrial fibrillation (principal); Z51.81 Encounter for therapeutic drug level monitoring; Z79.01 Long term (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 of anticoagulants | CPT/HCPCS: 85610; 99211 ==

== ENCOUNTER 2023-07-18 10:47 | Outpatient (AMB) | payer MEDICARE, SELFPAY ==
[2023-07-18 11:17] LABS: Prothrombin Time Whole Bld POC 26.7 sec (11.1-13.5); ~PT, ~INR - Anti Coag Clinic 2.2 (0.9-1.1)
--- NOTE | 2023-07-18 11:26 | MHC.OFFVISCO ---
Intake Intake Visit Reasons: Anticoagulation Allergies red dye [Red Dye] Allergy (Severe, Verified 07/18/23 11:02) HIVES,THROAT CLOSES FROM RED FOOD DYE Medication List - Last Reconciled 07/18/23 by Jeanna Suarez RN albuterol sulfate 90 mcg/actuation 180 mcg inhalation Q6H PRN atorvastatin 40 mg PO DAILY blood sugar diagnostic (FreeStyle Lite Strips) As directed check sugar twice a day before meals blood-glucose meter (FreeStyle Lite Meter kit) As directed bumetanide 3 mg PO Q2D@0900 bumetanide 2 mg PO Q2D@0900 carvedilol 6.25 mg PO BID 90 days clotrimazole 1% (Athlete's Foot (clotrimazole)) 1 appl topical BID 4 weeks dulaglutide (Trulicity) 3 mg subcut FR@0900 insulin lispro 5 units (0.05 mL) subcut TID insulin syringe-needle U-100 (BD Veo Insulin Syringe Ultra-Fine) As directed twice a day lancets (FreeStyle Lancets) As directed losartan 25 mg PO DAILY nystatin (Nystop) 1 appl topical BID PRN pen needle, diabetic (BD Ultra-Fine Short Pen Needle) USE 4 times a day [scale-accommodate weight 300 lbs As directed] spironolactone 25 mg PO DAILY warfarin 5 mg See Protocol PO SUMOTUTHFRSA@1800 Nursing Note Pt to [facility] by self with use of a cane. states feeling better. Ankle edema improved. States scheduled for Implantation of Permanent Pacer on 07/25/23. Didn't know if she had to hold warfarin. Unable to get thru to [facility]. Pt states they called her and left a message but she didn't listen to it. She is going to go home and listen to it and call [facility]. INR: 2.2 in therapeutic range of 2-3 Medications and supplements reviewed: no change No changes in health, diet, medications, or supplements, Denies any signs and symptoms of bleeding or bruising or clotting. Bleeding, bruising, clotting discussed Nutritional guidance given Dose: 2.5mg X2 days and 5mg X 5 days F/U INR: 3 days Patient verbalizes understanding of instructions given Anti-Coag Initial Assessment Social Hx Patient Tobacco Use Status: Never used Tobacco alcohol intake: never Alcohol intake frequency: does not drink Cardiovascular Hx: HTN, Angina, CAD, CHF, Arrhythmias, Varicose Veins and Other Lung Disease HX: Asthma Endocrine Hx: Diabetes Musculoskeletal Hx: Arthritis Blood Disorder Hx: Hyperlipidemia GI Hx: Ulcers, Bleeding (GI, rectal) and Other Hx: Kidney Disease Neurological Hx: Serious Head Injury and Migraines/Headaches 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 ) Psych. 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
== END 2023-07-18 11:36 | disposition home or self-care (01) ==
PROVIDERS: PCP Internal Medicine; Visit Provider Internal Medicine
DX: Z79.01 Long term (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 of anticoagulants (principal)

== ENCOUNTER → 2023-07-18 10:47 | Outpatient (BNVA) | payer MEDICARE, SELFPAY | PROVIDERS: PCP Internal Medicine; Visit Provider Internal Medicine | DX: I48.0 Paroxysmal atrial fibrillation (principal); Z51.81 Encounter for therapeutic drug level monitoring; Z79.01 Long term (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 of anticoagulants | CPT/HCPCS: 85610; 99211 ==

== ENCOUNTER 2023-07-24 13:10 | Outpatient (AMB) | payer MEDICARE, SELFPAY ==
[2023-07-24 13:35] LABS: Prothrombin Time Whole Bld POC 34.4 sec (11.1-13.5); ~PT, ~INR - Anti Coag Clinic 2.9 (0.9-1.1)
--- NOTE | 2023-07-24 13:45 | MHC.OFFVISCO ---
Intake Intake Visit Reasons: Anticoagulation Allergies red dye [Red Dye] Allergy (Severe, Verified 07/24/23 13:27) HIVES,THROAT CLOSES FROM RED FOOD DYE Medication List - Last Reconciled 07/24/23 by Marybeth Timmons RN albuterol sulfate 90 mcg/actuation 180 mcg inhalation Q6H PRN amoxicillin 500 mg PO TID atorvastatin 40 mg PO DAILY blood sugar diagnostic (FreeStyle Lite Strips) As directed check sugar twice a day before meals blood-glucose meter (FreeStyle Lite Meter kit) As directed bumetanide 3 mg PO Q2D@0900 bumetanide 2 mg PO Q2D@0900 carvedilol 6.25 mg PO BID 90 days clotrimazole 1% (Athlete's Foot (clotrimazole)) 1 appl topical BID 4 weeks dulaglutide (Trulicity) 3 mg subcut FR@0900 flash glucose scanning reader (TrotStyle Tabatha 2 [place]) As directed flash glucose sensor (FreeStyle Tabatha 2 Sensor kit) As directed change every 14 days insulin lispro 5 units (0.05 mL) subcut TID insulin syringe-needle U-100 (BD Veo Insulin Syringe Ultra-Fine) As directed twice a day lancets (FreeStyle Lancets) As directed losartan 25 mg PO DAILY nystatin (Nystop) 1 appl topical BID PRN pen needle, diabetic (BD Ultra-Fine Short Pen Needle) USE 4 times a day [scale-accommodate weight 300 lbs As directed] spironolactone 25 mg PO DAILY warfarin 5 mg See Protocol PO SUMOTUTHFRSA@1800 Nursing Note INR: 2.9 in therapeutic range Medications and supplements reviewed No changes in health, diet, medications, or supplements, Denies any signs and symptoms of bleeding or bruising or clotting. Bleeding, bruising, clotting discussed Nutritional guidance given Dose: 2.5 MG TODAY AND TOMORROW PER MD THEN RESUME USUAL DOSE 2.5MG X 2 DAYS / 5MG X [address] CABAN WITH PT INR RESULTS SPOKE WITH POONAM REGARDING INR AND LARGE GROIN BRUISING FROM GROIN TO KNEES S/P ABLATION F/U INR: 07/28/23 Patient verbalizes understanding of instructions given Anti-Coag Initial Assessment Social Hx Patient Tobacco Use Status: Never used Tobacco alcohol intake: never Alcohol intake frequency: does not drink Cardiovascular Hx: HTN, Angina, CAD, CHF, Arrhythmias, Varicose Veins and Other Lung Disease HX: Asthma Endocrine Hx: Diabetes Musculoskeletal Hx: Arthritis Blood Disorder Hx: Hyperlipidemia GI Hx: Ulcers, Bleeding (GI, rectal) and Other Hx: Kidney Disease Neurological Hx: Serious Head Injury and Migraines/Headaches 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 ) Psych. Illness/Depression: No Coding Level of Care Code Est Patient Level 1 Diagnoses Current use of anticoagulant therapy Z79.01 Assessment & Plan Assessment & Plan (1) Current use of anticoagulant therapy: Code(s): Z79.01 - [facility] (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 of anticoagulants Category: Medical Medications: New Saccharomyces boulardii (Digest Probiotic (S.boulardii)) PO
== END 2023-07-24 13:52 | disposition home or self-care (01) ==
LOC: HO.ACS 13:10
PROVIDERS: PCP Internal Medicine; Visit Provider Internal Medicine
DX: Z79.01 Long term (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 of anticoagulants (principal)

== ENCOUNTER → 2023-07-24 13:10 | Outpatient (BNVA) | payer MEDICARE, SELFPAY | PROVIDERS: PCP Internal Medicine; Visit Provider Internal Medicine | DX: I48.0 Paroxysmal atrial fibrillation (principal); Z79.01 Long term (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 of anticoagulants; Z51.81 Encounter for therapeutic drug level monitoring | CPT/HCPCS: 85610; 99211 ==

== ENCOUNTER 2023-07-29 14:01 | Outpatient (AMB) | payer MEDICARE, SELFPAY ==
--- NOTE | 2023-07-29 14:08 | MHC.OFFVISCO ---
Intake Intake Visit Reasons: Anticoagulation Allergies red dye [Red Dye] Allergy (Severe, Verified 07/29/23 14:01) HIVES,THROAT CLOSES FROM RED FOOD DYE Medication List - Last Reconciled 07/29/23 by Agnes Weaver RN albuterol sulfate 90 mcg/actuation 180 mcg inhalation Q6H PRN atorvastatin 40 mg PO DAILY blood sugar diagnostic (FreeStyle Lite Strips) As directed check sugar twice a day before meals blood-glucose meter (FreeStyle Lite Meter kit) As directed bumetanide 3 mg PO Q2D@0900 bumetanide 2 mg PO Q2D@0900 carvedilol 6.25 mg PO BID 90 days clotrimazole 1% (Athlete's Foot (clotrimazole)) 1 appl topical BID 4 weeks dulaglutide (Trulicity) 3 mg subcut FR@0900 flash glucose scanning reader ([employer] SemiconductorStyle Tabatha 2 [place]) As directed flash glucose sensor (FreeStyle Tabatha 2 Sensor kit) As directed change every 14 days insulin lispro 5 units (0.05 mL) subcut TID insulin syringe-needle U-100 (BD Veo Insulin Syringe Ultra-Fine) As directed twice a day lancets (FreeStyle Lancets) As directed losartan 25 mg PO DAILY nystatin (Nystop) 1 appl topical BID PRN pen needle, diabetic (BD Ultra-Fine Short Pen Needle) USE 4 times a day Saccharomyces boulardii (Digest Probiotic (S.boulardii)) PO [scale-accommodate weight 300 lbs As directed] spironolactone 25 mg PO DAILY warfarin 5 mg See Protocol PO SUMOTUTHFRSA@1800 Nursing Note INR 1.4-?? out of therapeutic range of 2-3 denies missed dose, held dose 07/24/23 per cardio prior to pacemaker insertion on 07/25/23 Medications and supplements reviewed Patient status: pt s/p pacemaker/defib done on 07/25/23- area appears reddened , pt states sensitive , steri strips intact Medications or supplements: no changes Diet: appetite is good Denies any signs and symptoms of bleeding or clotting or unusual bruising Bleeding, bruising, clotting discussed - prev bruising lower extrem - pt states improved pt aware risk of clotting with low inr Nutritional guidance given: no greens for 2 days, eat reds to raise pt reports foul taste in mouth Dose: 7.5mg today, 5mg tomm and thur F/U INR Date : friday08/01/23?? Patient verbalizing understanding of instructions given. dr boyer broom maker office called with low inr/dosing and f/u appt. spoke with shannen, awaiting call back from nurse t/c to pcp dr fisher to report low inr/dosing/f/u appt- spoke with rodrigo at 1542. 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 ) Psych. Illness/Depression: No Coding Level of Care Code Est Patient Level 1 Diagnoses Current use of anticoagulant therapy Z79.01 Results AMB INR Fingerstick AMB INR Fingerstick 1.4 Last Edit by Agnes Weaver RN on 07/29/23 14:14 Assessment & Plan Assessment & Plan (1) Current use of anticoagulant therapy: Code(s): Z79.01 - detention (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 of anticoagulants Category: Medical
[2023-07-30 08:12] LABS: Prothrombin Time Whole Bld POC 16.4 sec (11.1-13.5); ~PT, ~INR - Anti Coag Clinic 1.4 (0.9-1.1)
== END 2023-07-29 14:46 | disposition home or self-care (01) ==
LOC: HO.ACS 14:01
PROVIDERS: PCP Internal Medicine; Visit Provider Internal Medicine
DX: Z79.01 Long term (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 of anticoagulants (principal)

== ENCOUNTER → 2023-07-29 14:01 | Outpatient (BNVA) | payer MEDICARE, SELFPAY | PROVIDERS: PCP Internal Medicine; Visit Provider Internal Medicine | DX: I48.0 Paroxysmal atrial fibrillation (principal); Z51.81 Encounter for therapeutic drug level monitoring; Z79.01 Long term (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 of anticoagulants | CPT/HCPCS: 85610; 99211 ==

== ENCOUNTER 2023-08-01 14:04 | Outpatient (AMB) | payer MEDICARE, SELFPAY ==
--- NOTE | 2023-08-01 14:22 | MHC.OFFVISCO ---
Intake Intake Visit Reasons: Anticoagulation Allergies red dye [Red Dye] Allergy (Severe, Verified 08/01/23 14:05) HIVES,THROAT CLOSES FROM RED FOOD DYE Medication List - Last Reconciled 08/01/23 by Marybeth Timmons RN albuterol sulfate 90 mcg/actuation 180 mcg inhalation Q6H PRN atorvastatin 40 mg PO DAILY blood sugar diagnostic (FreeStyle Lite Strips) As directed check sugar twice a day before meals blood-glucose meter (FreeStyle Lite Meter kit) As directed bumetanide 3 mg PO Q2D@0900 bumetanide 2 mg PO Q2D@0900 carvedilol 6.25 mg PO BID 90 days cephalexin 500 mg PO BID clotrimazole 1% (Athlete's Foot (clotrimazole)) 1 appl topical BID 4 weeks dulaglutide (Trulicity) 3 mg subcut FR@0900 flash glucose scanning reader ([employer]Style Tabatha 2 [place]) As directed flash glucose sensor (FreeStyle Tabatha 2 Sensor kit) As directed change every 14 days insulin lispro 5 units (0.05 mL) subcut TID insulin syringe-needle U-100 (BD Veo Insulin Syringe Ultra-Fine) As directed twice a day lancets (FreeStyle Lancets) As directed losartan 25 mg PO DAILY nystatin (Nystop) 1 appl topical BID PRN pen needle, diabetic (BD Ultra-Fine Short Pen Needle) USE 4 times a day Saccharomyces boulardii (Digest Probiotic (S.boulardii)) PO [scale-accommodate weight 300 lbs As directed] spironolactone 25 mg PO DAILY warfarin 5 mg See Protocol PO SUMOTUTHFRSA@1800 Nursing Note INR 1.8? out of therapeutic range Medications and supplements reviewed Patient status: On antbx cephalexin for pace maker site steri strip irritation , a little tender to touch - md assessed and removed them, now covered with clean dry drsg. pt cautioned with movement of arm side with pacemaker no other changes Diet: good - avoided greens Denies any signs and symptoms of bleeding or clotting or unusual bruising Bleeding, bruising, clotting discussed Nutritional guidance given: avoid greens x 2 more day, then resume usual diet Dose: resume 2.5mg x 2 days/ 5mg x 5 days F/U INR Date : 08/04/23 ?? Patient verbalizing understanding of instructions given. 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 ) Psych. 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
[2023-08-01 15:48] LABS: Prothrombin Time Whole Bld POC 21.3 sec (11.1-13.5); ~PT, ~INR - Anti Coag Clinic 1.8 (0.9-1.1)
== END 2023-08-01 14:28 | disposition home or self-care (01) ==
LOC: HO.ACS 14:04
PROVIDERS: PCP Internal Medicine; Visit Provider Internal Medicine
DX: Z79.01 Long term (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 of anticoagulants (principal)

== ENCOUNTER → 2023-08-01 14:04 | Outpatient (BNVA) | payer MEDICARE, SELFPAY | PROVIDERS: PCP Internal Medicine; Visit Provider Internal Medicine | DX: I48.0 Paroxysmal atrial fibrillation (principal); Z51.81 Encounter for therapeutic drug level monitoring; Z79.01 Long term (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 of anticoagulants | CPT/HCPCS: 85610; 99211 ==

== ENCOUNTER 2023-08-04 14:19 | Outpatient (AMB) | payer MEDICARE, SELFPAY ==
[2023-08-04 14:28] LABS: Prothrombin Time Whole Bld POC 26.5 sec (11.1-13.5); ~PT, ~INR - Anti Coag Clinic 2.2 (0.9-1.1)
--- NOTE | 2023-08-04 14:38 | MHC.OFFVISCO ---
Intake Intake Visit Reasons: Anticoagulation Allergies red dye [Red Dye] Allergy (Severe, Verified 08/04/23 14:19) HIVES,THROAT CLOSES FROM RED FOOD DYE Medication List - Last Reconciled 08/04/23 by Marybeth Timmons RN albuterol sulfate 90 mcg/actuation 180 mcg inhalation Q6H PRN atorvastatin 40 mg PO DAILY blood sugar diagnostic (FreeStyle Lite Strips) As directed check sugar twice a day before meals blood-glucose meter (FreeStyle Lite Meter kit) As directed bumetanide 3 mg PO Q2D@0900 bumetanide 2 mg PO Q2D@0900 carvedilol 6.25 mg PO BID 90 days cephalexin 500 mg PO BID clotrimazole 1% (Athlete's Foot (clotrimazole)) 1 appl topical BID 4 weeks dulaglutide (Trulicity) 3 mg subcut FR@0900 flash glucose scanning reader (FreeStyle Tabatha 2 [place]) As directed flash glucose sensor (FreeStyle Tabatha 2 Sensor kit) As directed change every 14 days insulin lispro 5 units (0.05 mL) subcut TID insulin syringe-needle U-100 (BD Veo Insulin Syringe Ultra-Fine) As directed twice a day lancets (FreeStyle Lancets) As directed losartan 25 mg PO DAILY nystatin (Nystop) 1 appl topical BID PRN pen needle, diabetic (BD Ultra-Fine Short Pen Needle) USE 4 times a day Saccharomyces boulardii (Digest Probiotic (S.boulardii)) PO [scale-accommodate weight 300 lbs As directed] spironolactone 25 mg PO DAILY warfarin 5 mg See Protocol PO SUMOTUTHFRSA@1800 Nursing Note INR: 2.2 in therapeutic range Medications and supplements reviewed Pace maker area is very red appearing as a n allergic reaction of some kind, - pt saw md last week and the MD removed the steri strips as it appeared she was very sensitive to them , the rash however has spread since then, she is on antbx until about 08/08/23, she has been usuing neosporin per md order and hydrocotisone cream on the rash area, she is advised to call md to see if she can be seen sooner- she has an appt this thurdayd- pt advised seek medical attention if the area worsesn in any way of if she feels ill, she states she feels fine just itchy Denies any signs and symptoms of bleeding or bruising or clotting. Bleeding, bruising, clotting discussed Nutritional guidance given - no greens today - make sure to eat greens at the end of the week because the antbx may raise the INR Dose: keep same dose 2.5mg x 2days/ 5mg x 5 days F/U INR: 1week- pt to call if md changes any of her medications Patient verbalizes understanding of instructions given Anti-Coag Initial Assessment Social Hx Patient Tobacco Use Status: Never used Tobacco alcohol intake: never Alcohol intake frequency: does not drink Cardiovascular Hx: HTN, Angina, CAD, CHF, Arrhythmias, Varicose Veins and Other Lung Disease HX: Asthma Endocrine Hx: Diabetes Musculoskeletal Hx: Arthritis Blood Disorder Hx: Hyperlipidemia GI Hx: Ulcers, Bleeding (GI, rectal) and Other Hx: Kidney Disease Neurological Hx: Serious Head Injury and Migraines/Headaches 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 ) Psych. Illness/Depression: No Coding Level of Care Code Est Patient Level 1 Diagnoses Current use of anticoagulant therapy Z79.01 Results AMB INR Fingerstick AMB INR Fingerstick 2.2 Last Edit by Marybeth Timmons RN on 08/04/23 14:33 MANUAL ENTRY Assessment & Plan Assessment & Plan (1) Current use of anticoagulant therapy: Code(s): Z79.01 - skilled nursing (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 of anticoagulants Category: Medical
== END 2023-08-04 14:44 | disposition home or self-care (01) ==
LOC: HO.ACS 14:19
PROVIDERS: PCP Internal Medicine; Visit Provider Internal Medicine
DX: Z79.01 Long term (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 of anticoagulants (principal)

== ENCOUNTER → 2023-08-04 14:19 | Outpatient (BNVA) | payer MEDICARE, SELFPAY | PROVIDERS: PCP Internal Medicine; Visit Provider Internal Medicine | DX: I48.0 Paroxysmal atrial fibrillation (principal); Z79.01 Long term (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 of anticoagulants; Z51.81 Encounter for therapeutic drug level monitoring | CPT/HCPCS: 85610; 99211 ==

== ENCOUNTER → 2023-08-13 13:04 | Outpatient (BNVA) | payer MEDICARE, SELFPAY | PROVIDERS: PCP Internal Medicine; Visit Provider Internal Medicine | DX: I48.0 Paroxysmal atrial fibrillation (principal); Z79.01 Long term (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 of anticoagulants; Z51.81 Encounter for therapeutic drug level monitoring | CPT/HCPCS: 85610; 99211 ==

== ENCOUNTER 2023-08-18 13:42 | Outpatient (AMB) | payer MEDICARE, SELFPAY ==
[2023-08-18 14:03] LABS: Prothrombin Time Whole Bld POC 28.4 sec (11.1-13.5); ~PT, ~INR - Anti Coag Clinic 2.4 (0.9-1.1)
--- NOTE | 2023-08-18 14:12 | MHC.OFFVISCO ---
Intake Intake Visit Reasons: Anticoagulation Allergies red dye [Red Dye] Allergy (Severe, Verified 08/18/23 13:52) HIVES,THROAT CLOSES FROM RED FOOD DYE tape Adverse Reaction (Intermediate, Uncoded 08/18/23 13:52) Redness of Skin Medication List - Last Reconciled 08/18/23 by Marybeth Timmons RN albuterol sulfate 90 mcg/actuation 180 mcg inhalation Q6H PRN atorvastatin 40 mg PO DAILY blood sugar diagnostic (FreeStyle Lite Strips) As directed check sugar twice a day before meals blood-glucose meter (FreeStyle Lite Meter kit) As directed bumetanide 3 mg PO Q2D@0900 bumetanide 2 mg PO Q2D@0900 carvedilol 6.25 mg PO BID 90 days clotrimazole 1% (Athlete's Foot (clotrimazole)) 1 appl topical BID 4 weeks dulaglutide (Trulicity) 3 mg subcut FR@0900 flash glucose scanning reader ([employer] Tabatha 2 [place]) As directed flash glucose sensor (FreeStyle Tabatha 2 Sensor kit) As directed change every 14 days insulin syringe-needle U-100 (BD Veo Insulin Syringe Ultra-Fine) As directed twice a day lancets (FreeStyle Lancets) As directed losartan 25 mg PO DAILY nystatin (Nystop) 1 appl topical BID PRN pen needle, diabetic (BD Ultra-Fine Short Pen Needle) USE 4 times a day Saccharomyces boulardii (Digest Probiotic (S.boulardii)) PO [scale-accommodate weight 300 lbs As directed] spironolactone 25 mg PO DAILY warfarin 5 mg See Protocol PO SUMOTUTHFRSA@1800 Nursing Note INR: 2.4 in therapeutic range Medications and supplements reviewed pace maker site healing - still a little red - to have f/u in about 13 days, off amioderone greater than 1 indira, off antbx about 3 weeks Denies any signs and symptoms of bleeding or bruising or clotting. Bleeding, bruising, clotting discussed Nutritional guidance given - resume a mix of fruits and vegetables Dose:2.5mg x 1 days/ 5mg x 6 days - increase dose due to being off amioderaone x 1 month F/U INR: 10 days Patient verbalizes understanding of instructions given Anti-Coag Initial Assessment Social Hx Patient Tobacco Use Status: Never used Tobacco alcohol intake: never Alcohol intake frequency: does not drink Cardiovascular Hx: HTN, Angina, CAD, CHF, Arrhythmias, Varicose Veins and Other Lung Disease HX: Asthma Endocrine Hx: Diabetes Musculoskeletal Hx: Arthritis Blood Disorder Hx: Hyperlipidemia GI Hx: Ulcers, Bleeding (GI, rectal) and Other Hx: Kidney Disease Neurological Hx: Serious Head Injury and Migraines/Headaches 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 ) Psych. Illness/Depression: No Coding Level of Care Code Est Patient Level 1 Diagnoses Current use of anticoagulant therapy Z79.01 Results AMB INR Fingerstick AMB INR Fingerstick 2.4 Last Edit by Marybeth Timmons RN on 08/18/23 14:07 MANUAL ENTRY Assessment & Plan Assessment & Plan (1) Current use of anticoagulant therapy: Code(s): Z79.01 - intermediate (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 of anticoagulants Category: Medical Medications: New insulin lispro (Humalog Tempo Pen (U-100) Insulin) 12 units subcut TID
== END 2023-08-18 14:17 | disposition home or self-care (01) ==
LOC: HO.ACS 13:42
PROVIDERS: PCP Internal Medicine; Visit Provider Internal Medicine
DX: Z79.01 Long term (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 of anticoagulants (principal)

== ENCOUNTER → 2023-08-18 13:42 | Outpatient (BNVA) | payer MEDICARE, SELFPAY | PROVIDERS: PCP Internal Medicine; Visit Provider Internal Medicine | DX: I48.0 Paroxysmal atrial fibrillation (principal); Z79.01 Long term (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 of anticoagulants; Z51.81 Encounter for therapeutic drug level monitoring | CPT/HCPCS: 85610; 99211 ==

== ENCOUNTER 2023-08-21 12:53 | Outpatient (AMB) | payer MEDICARE, SELFPAY ==
[2023-08-21 12:55] VITALS: BP 130/70; PULSE 78; BMI 40.2
--- NOTE | 2023-08-21 12:55 | MHC.OFFVIS ---
Vital Signs 08/21/23 12:55 Height 5 ft 4 in Weight 234 lb BMI 40.2 BP 130/70 Blood Pressure Location Lt brachial Position Sitting Pulse 78 Pulse Source Pulse Oximeter Intake Visit Reasons: [id number] Intake Note: Patient presents today to follow up on D2MT. 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 Accompanied by: Self / Same As Patient Allergies red dye [Red Dye] Allergy (Severe, Verified 08/21/23 13:01) HIVES,THROAT CLOSES FROM RED FOOD DYE tape Adverse Reaction (Intermediate, Uncoded 08/21/23 13:01) Redness of Skin Medication List - Last Reconciled 08/21/23 by Uriel Cortez MD albuterol sulfate 90 mcg/actuation 180 mcg inhalation Q6H PRN atorvastatin 40 mg PO DAILY blood sugar diagnostic (FreeStyle Lite Strips) As directed check sugar twice a day before meals blood-glucose meter (FreeStyle Lite Meter kit) As directed bumetanide 3 mg PO Q2D@0900 bumetanide 2 mg PO Q2D@0900 carvedilol 6.25 mg PO BID 90 days clotrimazole 1% (Athlete's Foot (clotrimazole)) 1 appl topical BID 4 weeks dulaglutide (Trulicity) 3 mg subcut FR@0900 flash glucose scanning reader (FreeStyle Tabatha 2 [place]) As directed flash glucose sensor (FreeStyle Tabatha 2 Sensor kit) As directed change every 14 days insulin lispro (Humalog Tempo Pen (U-100) Insulin) 12 units subcut TID insulin syringe-needle U-100 (BD Veo Insulin Syringe Ultra-Fine) As directed twice a day lancets (FreeStyle Lancets) As directed losartan 25 mg PO DAILY nystatin (Nystop) 1 appl topical BID PRN pen needle, diabetic (BD Ultra-Fine Short Pen Needle) USE 4 times a day Saccharomyces boulardii (Digest Probiotic (S.boulardii)) PO [scale-accommodate weight 300 lbs As directed] spironolactone 25 mg PO DAILY warfarin 5 mg See Protocol PO SUMOTUTHFRSA@1800 HPI Comments Details: 68 YO F with PMHx T2DM Initially diagnosed with T2DM in 5 years ago. Was initially started on treatment with Metformin but was unable to tolerate this due to GI distress. Current regimen , Trulicity 3 mg once a week and Tresiba 42 units qHS not taking . Humalog 12 units before meals . Sensor download shows she has using the sensor 66% of the time. Average glucose is 221 with G mi of 8.6% and variability 19.2%. 19% range with 56% hyperglycemia 25% very hyperglycemic and no hypoglycemia. Panel shows elevated point cares throughout the day with a spike in blood sugar post-lunch and a small spike post dinner Reports low sugars never. Is aware of the rule of 15's to treat hypoglycemia. Family history of T2DM in her Mother and Daughter. Has eyes checked not yearly, Last appt with optho 1 yr ago . neds to make appt . Unsure if retinopathy. Has neuropathy, does not see podiatry. Denies nephropathy, on Lisinopril 20 mg PO daily. UAC 19.4 as measured on 09/21/21. Has HLD, on atorvastatin 10 mg PO daily. Last LDL 74 as measured on 09/21/2021. Denies CAD. Has not had diabetes education. Labs: Laboratory Tests 09/21/21 09/21/21 09/27/21 13:14 13:14 13:25 Sodium 134 L Glucose (Clinic) 238 H Hgb A1c (Clinic) AST 10 ALT 13 Triglycerides 340 Cholesterol 183 D LDL Cholesterol, Calc 74 HDL Cholesterol 41 25-OH Vitamin D Total 23.7 Microalb/Creat Ratio 19.4 09/27/21 13:34 Sodium Glucose (Clinic) Hgb A1c (Clinic) 11.0 H AST ALT Triglycerides Cholesterol LDL Cholesterol, Calc HDL Cholesterol 25-OH Vitamin D Total Microalb/Creat Ratio [facility] Medical History (Updated 06/10/23 @ 14:40 by Lily Menjivar MD) History of COVID-19 Paroxysmal atrial fibrillation CHF (congestive heart failure) Left bundle branch block History of uterine cancer Personal history of malignant neoplasm of other parts of uterus Tinea pedis History of cardioversion Cardiomyopathy Coronary arteriosclerosis Ischemic cardiomyopathy Colonoscopy refused Incomplete left bundle branch block (LBBB) Post-menopausal bleeding Type 2 diabetes mellitus with hyperglycemia, with long-term current use of insulin Vitamin D deficiency Mixed dyslipidemia Papanicolaou smear declined Mammogram declined Osteoarthritis, knee Diabetic neuropathy History of esophagitis Mild intermittent asthma History of basal cell carcinoma Osteonecrosis of right hip Hiatal hernia History of cholelithiasis Morbid obesity Essential hypertension Type 2 diabetes mellitus with hyperglycemia, without long-term current use of insulin Irritable bowel syndrome (IBS) Surgical History S/P CLARE-BSO (total abdominal hysterectomy and bilateral salpingo-oophorectomy) S/P cardiac catheterization History of hysterectomy H/O hernia repair Hx of section History of hip surgery Hx of colonoscopy History of cholecystectomy Family History Father Myocardial infarction Cardiovascular disease Mother Diabetes mellitus Essential hypertension Daughter Anxiety disorder Mental health disorder Son Mental health disorder Social History Household Members: Spouse and Children Housing: House Are you a primary small animal caretaker to a significant other at home: No Do you presently have visiting nurse or other home services: No Alcohol intake: never Comment: pt refuses alarms Patient Tobacco Use Status: Never used Tobacco e-Cigarette/Vaping Use: Never Used Second Hand Smoke Exposure: No Advance Directives Date on File: 04/08/22 service: No Current occupational status: retired Current occupational exposures/hazards: No Cognitive needs: No Hearing needs: No Vision needs: Yes Physical Exam Vital Signs: Last Vital Signs Pulse 78 08/21/23 12:55 BP 130/70 08/21/23 12:55 BMI result Body Mass Index 40.2 Absence of Cushingoid features. Absence of acromegalic features. Neck exam reveals nl size thyroid about 15 gms. No thyroid nodules palpable. No carotid bruits present. Lungs CTA. Heart S1 S2, Reg R/R. No M/R/ G. Skin exam reveals absence of vitiligo or acanthosis nigricans. Abdominal exam reveals Soft NT/ND with NA BS. No organomegaly present. Neck Other: . Extrem Other: Visual exam of foot performed. No ulcerations or open lesions. No onchomycosis, no callouses.Pulses 1- distally Sensation intact to monofilament exam. Vibratory sensation sensed is decreased t with 128 Hz tuning fork. 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 She has not taking the basal insulin because she can not afford it The plan is to increase the Humalog to 16 units and then to 20 units after 4 days if point cares rising after meals. I also told patient to reinitiate basal insulin and she is trying to get approval from [employer] for assistance for Basaglar insulin. If this does not happen, I instructed patient to go to [facility] to get Relion NPH and take 21 units in a.m. and before bedtime. 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
[2023-08-21 13:07] LABS: Glucose, Whole Blood 160 mg/dL (60-115)
== END 2023-08-21 13:29 | disposition home or self-care (01) ==
PROVIDERS: PCP Internal Medicine; Visit Provider Internal Medicine Endocrinology, Diabetes & Metabolism
DX: Z13.9 Encounter for screening, unspecified (principal); E11.65 Type 2 diabetes mellitus with hyperglycemia; Z79.4 Long term (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 of insulin
CPT/HCPCS: 99214

== ENCOUNTER → 2023-08-21 12:53 | Outpatient (BNVA) | payer MEDICARE, SELFPAY | PROVIDERS: PCP Internal Medicine; Visit Provider Internal Medicine Endocrinology, Diabetes & Metabolism | DX: E11.65 Type 2 diabetes mellitus with hyperglycemia (principal); Z79.4 Long term (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 of insulin | CPT/HCPCS: 82947; 83036; 99212 ==

== ENCOUNTER 2023-08-29 13:56 | Outpatient (AMB) | payer MEDICARE, SELFPAY ==
[2023-08-29 14:01] VITALS: BP 112/60; PULSE 63; BMI 39.8
--- NOTE | 2023-08-29 14:01 | A.OFFVIS_ITS ---
Vital Signs 08/29/23 14:01 Height 5 ft 4 in Weight 232 lb BMI 39.8 BP 112/60 Blood Pressure Location Lt brachial Position Sitting Pulse 63 Pulse Source Pulse Oximeter Intake Visit Reasons: follow up Allergies red dye [Red Dye] Allergy (Severe, Verified 09/03/23 11:48) HIVES,THROAT CLOSES FROM RED FOOD DYE tape Adverse Reaction (Intermediate, Uncoded 09/03/23 11:48) Redness of Skin Medication List - Last Reconciled 08/29/23 by Maria Fernanda Christopher NP albuterol sulfate 90 mcg/actuation 180 mcg inhalation Q6H PRN atorvastatin 40 mg PO DAILY blood sugar diagnostic (FreeStyle Lite Strips) As directed check sugar twice a day before meals blood-glucose meter (FreeStyle Lite Meter kit) As directed bumetanide 3 mg PO Q2D@0900 bumetanide 2 mg PO Q2D@0900 carvedilol 6.25 mg PO BID 90 days clotrimazole 1% (Athlete's Foot (clotrimazole)) 1 appl topical BID 4 weeks dulaglutide (Trulicity) 3 mg subcut FR@0900 flash glucose scanning reader ([employer] Tabatha 2 [place]) As directed flash glucose sensor (FreeStyle Tabatha 2 Sensor kit) As directed change every 14 days insulin lispro (Humalog Tempo Pen (U-100) Insulin) 12 units subcut TID insulin syringe-needle U-100 (BD Veo Insulin Syringe Ultra-Fine) As directed twice a day lancets (FreeStyle Lancets) As directed losartan 25 mg PO DAILY nystatin (Nystop) 1 appl topical BID PRN pen needle, diabetic (BD Ultra-Fine Short Pen Needle) USE 4 times a day Saccharomyces boulardii (Digest Probiotic (S.boulardii)) PO [scale-accommodate weight 300 lbs As directed] spironolactone 25 mg PO DAILY warfarin 5 mg See Protocol PO SUMOTUTHFRSA@1800 HPI Comments Details: 68-year-old female presents today for a follow-up. She had recently [employer] RECORD CHANGER TESTER placed. She reports she has been doing well with no chest pains, shortness of breath, bleeding issues, or orthopnea. She reports her swelling has decrease quite a bit over the last few weeks. She is avoiding salt. Reports no fever, chills, odor, or drainage at RECORD CHANGER TESTER site. Mild pain with movement still. [facility] Medical History Cardiac resynchronization therapy defibrillator (RECORD CHANGER TESTER-D) in place History of COVID-19 Paroxysmal atrial fibrillation CHF (congestive heart failure) Left bundle branch block History of uterine cancer Personal history of malignant neoplasm of other parts of uterus Tinea pedis History of cardioversion Cardiomyopathy Coronary arteriosclerosis Ischemic cardiomyopathy Colonoscopy refused Incomplete left bundle branch block (LBBB) Post-menopausal bleeding Type 2 diabetes mellitus with hyperglycemia, with long-term current use of insulin Vitamin D deficiency Mixed dyslipidemia Papanicolaou smear declined Mammogram declined Osteoarthritis, knee Diabetic neuropathy History of esophagitis Mild intermittent asthma History of basal cell carcinoma Osteonecrosis of right hip Hiatal hernia History of cholelithiasis Morbid obesity Essential hypertension Type 2 diabetes mellitus with hyperglycemia, without long-term current use of insulin Irritable bowel syndrome (IBS) Surgical History S/P CLARE-BSO (total abdominal hysterectomy and bilateral salpingo-oophorectomy) S/P cardiac catheterization History of hysterectomy H/O hernia repair Hx of section History of hip surgery Hx of colonoscopy History of cholecystectomy Family History Father Myocardial infarction Cardiovascular disease Mother Diabetes mellitus Essential hypertension Daughter Anxiety disorder Mental health disorder Son Mental health disorder Social History Household Members: Spouse and Children Housing: House Are you a primary healthcare advisory services manager to a significant other at home: No Do you presently have visiting nurse or other home services: No Alcohol intake: never Comment: pt refuses alarms Patient Tobacco Use Status: Never used Tobacco e-Cigarette/Vaping Use: Never Used Second Hand Smoke Exposure: No Advance Directives Date on File: 04/08/22 service: No Current occupational status: retired Current occupational exposures/hazards: No Cognitive needs: No Hearing needs: No Vision needs: Yes Review of Systems Const Denies weakness ENT Denies dizziness Card Denies chest pain, Denies chest pain with activity, Denies syncope, Denies rapid heart rate, Denies pedal edema, Denies edema, Denies leg edema, Denies lightheadedness, Denies palpitations, Denies dyspnea, Denies dyspnea on exertion and Denies orthopnea Resp Denies cough, Denies dyspnea and Denies dyspnea on exertion GI Denies hematochezia and Denies change in stool character Musc Denies abnormal gait, Denies muscle cramps, Denies muscle weakness, Denies numbness, Denies radiating pain into limb and Denies tingling Neuro Denies abnormal gait, Denies dizziness, Denies syncope, Denies numbness, Denies tingling and Denies weakness Endo Denies palpitations Physical Exam Vital Signs: Last Vital Signs Pulse 63 08/29/23 14:01 BP 112/60 08/29/23 14:01 BMI result Body Mass Index 39.8 Const General: healthy appearing and no acute distress Orientation/consciousness: patient oriented x3 HEENT Head: Yes normal to inspection Eyes General: appearance normal, both eyes and all related structures Neck Neck: Yes normal visual inspection Chest Chest palpation & inspection: normal inspection of the chest Resp Effort & Inspection: normal respiratory effort Auscultation: clear to auscultation bilaterally Cardio Jugular venous distension: no JVD Palpation: normal PMI Rate: regular rate Rhythm: regular rhythm Heart sounds: S1 normal heart sound present, S2 normal heart sound present, no click, no gallops, no murmurs and no rubs GI Inspection: Yes normal to inspection Palpation (GI): Soft to palpation Skin General skin exam: no rashes or lesions noted Neuro General: patient oriented x3 Extrem General: Yes normal to inspection Psych Appearance: grossly normal Assessment & Plan Assessment & Plan (1) Coronary arteriosclerosis: Code(s): I25.10 - Atherosclerotic heart disease of [place] coronary artery without angina pectoris Category: Medical Plan: 05/29/23 LDL was 71. On atorvastatin 40mg QD Last echocardiogram done 08/01/2022 shows EF 30-35%, abnormal diastolic function, inferior septal wall, basal inferior segment akinetic, apex segment dyskinetic, normal RV. She ultimately had cardiac catheterization on 11/06/2021 showing moderate to severe coronary artery disease. On warfarin. Denies anginal symptoms. Swelling has improved since cooking at home more. (2) HFrEF (heart failure with reduced ejection fraction): Code(s): I50.20 - Unspecified systolic (congestive) heart failure Category: Medical Plan: On bumex. Decrease in swelling. Avoiding salt as she is cooking more at home. Will repeat echo. (3) Paroxysmal atrial fibrillation: Code(s): I48.0 - Paroxysmal atrial fibrillation Category: Medical Plan: On warfarin. No symptoms. (4) Cardiac resynchronization therapy defibrillator (RECORD CHANGER TESTER-D) in place: Comment: [employer] implanted 07/25/2023 Code(s): Z95.810 - Presence of automatic (implantable) cardiac defibrillator Category: Medical Plan: Will follow remotely. In Office check 6 weeks. Wound healing appropriately. (5) Incomplete left bundle branch block (LBBB): Code(s): I44.7 - Left bundle-branch block, unspecified Category: Medical Plan: on EKG (6) Essential hypertension: Code(s): I10 - Essential (primary) hypertension Category: Medical Plan: 112/60 today. Within range. On spironolactone, losartan, carvedilol. Monitor blood pressures at home. Avoiding salt. (7) Type 2 diabetes mellitus with hyperglycemia, with long-term current use of insulin: Code(s): E11.65 - Type 2 diabetes mellitus with hyperglycemia; Z79.4 - correction (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 of insulin Category: Medical Plan: Working with primary to get blood sugars under control. A1C 08/20 was 8.2 Plan Echocardiogram on 02/28/2023 showed EF of 15-20%. Will repeat echocardiogram. Currently appears not in fluid overload. Patient reports episodes have decreas ed. She is on warfarin for anticoagulation. Blood pressure within limits. On losartan and coreg. Orders: Orders CA echo transthoracic complete 08/29/23 I48.0 - Paroxysmal atrial fibrillation, I50.20 - Unspecified systolic (congestive) heart failure Coding Level of Care Code Est Pt Level 4 (93697) Diagnoses Coronary arteriosclerosis I25.10 HFrEF (heart failure with reduced ejection fraction) I50.20 Paroxysmal atrial fibrillation I48.0 Cardiac resynchronization therapy defibrillator (RECORD CHANGER TESTER-D) in place Z95.810 Incomplete left bundle branch block (LBBB) I44.7 Essential hypertension I10 Type 2 diabetes mellitus with hyperglycemia, with long-term current use of insulin E11.65; Z79.4
== END 2023-08-29 14:27 | disposition home or self-care (01) ==
PROVIDERS: PCP Internal Medicine; Visit Provider Nurse Practitioner
DX: I25.10 Atherosclerotic heart disease of native coronary artery without angina pectoris (principal); I50.20 Unspecified systolic (congestive) heart failure; I48.0 Paroxysmal atrial fibrillation; Z95.810 Presence of automatic (implantable) cardiac defibrillator; I44.7 Left bundle-branch block, unspecified; I10 Essential (primary) hypertension; E11.65 Type 2 diabetes mellitus with hyperglycemia; Z79.4 Long term (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 of insulin
CPT/HCPCS: 99214

== ENCOUNTER → 2023-08-29 13:56 | Outpatient (BNVA) | payer MEDICARE, SELFPAY | PROVIDERS: PCP Internal Medicine; Visit Provider Nurse Practitioner | DX: I25.10 Atherosclerotic heart disease of native coronary artery without angina pectoris (principal); I11.0 Hypertensive heart disease with heart failure; I50.20 Unspecified systolic (congestive) heart failure; I48.0 Paroxysmal atrial fibrillation; I44.7 Left bundle-branch block, unspecified; E11.65 Type 2 diabetes mellitus with hyperglycemia; Z79.01 Long term (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 of anticoagulants; Z79.4 Long term (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 of insulin; Z79.899 Other long term (current) drug therapy; Z95.810 Presence of automatic (implantable) cardiac defibrillator | CPT/HCPCS: 99212 ==

== ENCOUNTER 2023-09-02 14:03 | Outpatient (AMB) | payer MEDICARE, SELFPAY ==
[2023-09-02 14:36] LABS: Prothrombin Time Whole Bld POC 44.4 sec (11.1-13.5); ~PT, ~INR - Anti Coag Clinic 3.7 (0.9-1.1)
--- NOTE | 2023-09-02 14:39 | MHC.OFFVISCO ---
Intake Intake Visit Reasons: Anticoagulation Allergies red dye [Red Dye] Allergy (Severe, Verified 09/02/23 14:31) HIVES,THROAT CLOSES FROM RED FOOD DYE tape Adverse Reaction (Intermediate, Uncoded 09/02/23 14:31) Redness of Skin Medication List - Last Reconciled 09/02/23 by Jeanna Suarez, RN albuterol sulfate 90 mcg/actuation 180 mcg inhalation Q6H PRN atorvastatin 40 mg PO DAILY blood sugar diagnostic (FreeStyle Lite Strips) As directed check sugar twice a day before meals blood-glucose meter (FreeStyle Lite Meter kit) As directed bumetanide 3 mg PO Q2D@0900 bumetanide 2 mg PO Q2D@0900 carvedilol 6.25 mg PO BID 90 days clotrimazole 1% (Athlete's Foot (clotrimazole)) 1 appl topical BID 4 weeks dulaglutide (Trulicity) 3 mg subcut FR@0900 flash glucose scanning reader ([employer]Style Tabatha 2 [place]) As directed flash glucose sensor (FreeStyle Tabatha 2 Sensor kit) As directed change every 14 days insulin lispro (Humalog Tempo Pen (U-100) Insulin) 12 units subcut TID insulin syringe-needle U-100 (BD Veo Insulin Syringe Ultra-Fine) As directed twice a day lancets (FreeStyle Lancets) As directed losartan 25 mg PO DAILY nystatin (Nystop) 1 appl topical BID PRN pen needle, diabetic (BD Ultra-Fine Short Pen Needle) USE 4 times a day Saccharomyces boulardii (Digest Probiotic (S.boulardii)) PO [scale-accommodate weight 300 lbs As directed] spironolactone 25 mg PO DAILY warfarin 5 mg See Protocol PO SUMOTUTHFRSA@1800 Nursing Note INR 3.7?out of therapeutic range of 2-3 Medications and supplements reviewed Patient status: feels better Medications or supplements: no changes Diet: usual diet for pt Denies any signs and symptoms of bleeding or clotting or unusual bruising Bleeding, bruising, clotting discussed Nutritional guidance given: to have a serving of greens today and tomorrow Dose: decrease today's dose to 2.5mg (5mg) then weekly dose decreased to 5mg X 5 days and 2.5mg X 2 days F/U INR Date : 2 weeks?? Patient verbalizing understanding of instructions given. 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 ) Psych. Illness/Depression: No Coding Level of Care Code Est Patient Level 1 Diagnoses Current use of anticoagulant therapy Z79.01 Assessment & Plan Assessment & Plan (1) Current use of anticoagulant therapy: Code(s): Z79.01 - senior living (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 of anticoagulants Category: Medical
== END 2023-09-02 14:49 | disposition home or self-care (01) ==
LOC: HO.ACS 14:03
PROVIDERS: PCP Internal Medicine; Visit Provider Internal Medicine
DX: Z79.01 Long term (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 of anticoagulants (principal)

== ENCOUNTER → 2023-09-02 14:03 | Outpatient (BNVA) | payer MEDICARE, SELFPAY | PROVIDERS: PCP Internal Medicine; Visit Provider Internal Medicine | DX: I48.0 Paroxysmal atrial fibrillation (principal); Z79.01 Long term (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 of anticoagulants; Z51.81 Encounter for therapeutic drug level monitoring | CPT/HCPCS: 85610; 99211 ==

== ENCOUNTER 2023-09-03 11:42 | Outpatient (AMB) | payer MEDICARE, SELFPAY ==
--- NOTE | 2023-09-03 11:47 | A.OFFPC_ITS ---
Vital Signs 09/03/23 11:50 Height 5 ft 4 in Weight 233 lb BMI 40.0 BP 128/70 Blood Pressure Location Lt brachial Position Sitting Pulse 68 Pulse Source Pulse Oximeter Pulse Oximetry (%) 96 Oxygen Delivery Method Room Air Intake Visit Reasons: 6 month fu Intake Note: pt is here for 6mo f/u Allergies red dye [Red Dye] Allergy (Severe, Verified 09/14/23 23:47) HIVES,THROAT CLOSES FROM RED FOOD DYE tape Adverse Reaction (Intermediate, Uncoded 09/14/23 23:47) Redness of Skin Medication List - Last Reconciled 09/14/23 by Lily Menjivar MD albuterol sulfate 90 mcg/actuation 180 mcg inhalation Q6H PRN atorvastatin 40 mg PO DAILY blood sugar diagnostic (FreeStyle Lite Strips) As directed check sugar twice a day before meals blood-glucose meter (FreeStyle Lite Meter kit) As directed bumetanide 3 mg PO Q2D@0900 bumetanide 2 mg PO Q2D@0900 carvedilol 6.25 mg PO BID 90 days clotrimazole 1% (Athlete's Foot (clotrimazole)) 1 appl topical BID 4 weeks dulaglutide (Trulicity) 3 mg subcut FR@0900 flash glucose scanning reader ([employer] Tabatha 2 [place]) As directed flash glucose sensor (FreeStyle Tabatha 2 Sensor kit) As directed change every 14 days insulin lispro (Humalog Tempo Pen (U-100) Insulin) 16 units subcut TID insulin NPH isoph U-100 human 21 units (0.21 mL) subcut BID insulin syringe-needle U-100 (BD Veo Insulin Syringe Ultra-Fine) As directed twice a day lancets (FreeStyle Lancets) As directed losartan 25 mg PO DAILY nystatin (Nystop) 1 appl topical BID PRN pen needle, diabetic (BD Ultra-Fine Short Pen Needle) USE 4 times a day Saccharomyces boulardii (Digest Probiotic (S.boulardii)) PO [scale-accommodate weight 300 lbs As directed] spironolactone 25 mg PO DAILY warfarin 5 mg See Protocol PO SUMOTUTHFRSA@1800 Tobacco use date assessed: 09/03/23 Dental Screening Dental Screen Date: 09/03/23 HPI 6 month fu HPI Details 68-year-old lady with paroxysmal atrial fibrillation , recently had cardiac resynchronization therapy defibrillator placed, has peripheral arterial disease, coronary artery sclerosis, currently on Coumadin followed at the Coumadin clinic, and followed by cardiology, has diabetes mellitus, followed by endocrine clinic, , here today for follow-up on her mixed dyslipidemia and hypertension. She has been trying to follow recommended diet, compliant with her medications. However she has not on her prescribed insulin as she is still waiting for approval regarding the patient's distance program for her insulin. She is feeling better otherwise, with no complaints of chest pain, swelling in her legs has decreased. [facility], [facility] Medical History (Updated 09/14/23 @ 23:59 by Lily Menjivar MD) Cardiac resynchronization therapy defibrillator (IMMERSION METAL CLEANER-D) in place History of COVID-19 Paroxysmal atrial fibrillation CHF (congestive heart failure) Left bundle branch block History of uterine cancer Personal history of malignant neoplasm of other parts of uterus Tinea pedis History of cardioversion Cardiomyopathy Coronary arteriosclerosis Ischemic cardiomyopathy Colonoscopy refused Incomplete left bundle branch block (LBBB) Post-menopausal bleeding Type 2 diabetes mellitus with hyperglycemia, with long-term current use of insulin Vitamin D deficiency Mixed dyslipidemia Papanicolaou smear declined Mammogram declined Osteoarthritis, knee Diabetic neuropathy History of esophagitis Mild intermittent asthma History of basal cell carcinoma Osteonecrosis of right hip Hiatal hernia History of cholelithiasis Morbid obesity Essential hypertension Type 2 diabetes mellitus with hyperglycemia, without long-term current use of insulin Irritable bowel syndrome (IBS) Surgical History S/P CLARE-BSO (total abdominal hysterectomy and bilateral salpingo-oophorectomy) S/P cardiac catheterization History of hysterectomy H/O hernia repair Hx of section History of hip surgery Hx of colonoscopy History of cholecystectomy Family History Father Myocardial infarction Cardiovascular disease Mother Diabetes mellitus Essential hypertension Daughter Anxiety disorder Mental health disorder Son Mental health disorder Social History Household Members: Spouse and Children Housing: House Are you a primary post anesthesia care unit nurse to a significant other at home: No Do you presently have visiting nurse or other home services: No Alcohol intake: never Comment: pt refuses alarms Patient Tobacco Use Status: Never used Tobacco e-Cigarette/Vaping Use: Never Used Second Hand Smoke Exposure: No Advance Directives Date on File: 04/08/22 service: No Current occupational status: retired Current occupational exposures/hazards: No Cognitive needs: No Hearing needs: No Vision needs: Yes Questionnaire PHQ-9 Over the last 2 weeks, how often have you been bothered by any of the following problems? Depression Screening Interpretation: Negative Depression Screening Done: Yes Source: Developed by Drs. Uriel Falk, Rosie Felipe, Hasmukh Kumar and colleagues, with an educational sandra from [employer]. Thrive Questionnaire Date Thrive assessed: 06/10/23 HUMAIRA-7 AMB Questionnaire HUMAIRA-7 Date HUMAIRA - 7 assessed: 06/10/23 Source: Developed by Drs. Uriel Falk, Rosie Felipe, Hasmukh Kumar and colleagues, with an educational sandra from [employer]. Review of Systems Const Denies weakness Eyes Denies change in vision ENT Denies dizziness Card Denies chest pain, Denies chest pain with activity, Denies syncope, Denies rapid heart rate, Denies irregular heart rhythm, Denies leg edema, Denies lightheadedness, Denies palpitations, Denies dyspnea and Denies dyspnea on exertion Resp Denies cough, Denies dyspnea and Denies dyspnea on exertion GI Denies hematochezia and Denies change in stool character Reports no additional complaints Musc Denies abnormal gait, Denies muscle cramps, Denies muscle weakness, Denies numbness, Denies radiating pain into limb and Denies tingling Neuro Denies abnormal gait, Denies dizziness, Denies syncope, Denies numbness, Denies tingling and Denies weakness Endo Denies palpitations Jace/Lymph Denies easy bleeding and Reports easy bruising Physical exam (Primary Care) Vital Signs: Last Vital Signs Pulse 68 09/03/23 11:50 BP 128/70 09/03/23 11:50 Pulse Ox 96 09/03/23 11:50 Oxygen Delivery Method Room Air 09/03/23 11:50 BMI result Body Mass Index 40.0 Tobacco/Smoking Status: Tobacco use Status Tobacco use date assessed 09/03/23 09/03/23 11:54 Patient Tobacco Use Status Never used Tobacco 09/03/23 11:54 e-Cigarette/Vaping Use Never Used 09/03/23 11:54 Depression Screening Interpretation: Negative Thrive Assessment: Date of Thrive Assessment Date Thrive assessed 06/10/23 09/03/23 11:54 Const General: comfortable, no acute distress and awake Nutritional Appearance: obese Orientation/consciousness: patient oriented x3 HENMT Ears: external ears normal General nose exam: Normal external nose present and No nasal discharge present Mouth: oropharynx normal and moist mucous membranes Eyes General: appearance normal, both eyes and all related structures Neck Neck: Yes full ROM, Yes no lymphadenopathy and Yes supple Resp Effort & Inspection: normal respiratory effort and able to speak in complete sentences Auscultation: clear to auscultation bilaterally Cardio Rate: regular rate Rhythm: regular rhythm Heart sounds: S1 normal heart sound present and S2 normal heart sound present GI Inspection: Yes Abdominal panniculus present and Yes obesity Palpation (GI): Soft to palpation, nontender and no guarding Auscultation: normal bowel sounds General: Yes no CVA tenderness Back/Spine/Pelvis Back: no CVA tenderness and No back tenderness Skin General skin exam: no rashes or lesions noted Neuro General: patient oriented x3, gait normal, tone normal, moves all extremities, Normal light touch and pain sensation and no focal motor deficits Cognition (Neuro): normal cognition Gait exam (Neuro): Normal gait present Motor exam (neuro): 5/5 motor strength present throughout Extrem Other: Trace ankle swelling General: Yes full ROM, Yes no joint enlargement, Yes no calf tenderness and Yes normal gait Assessment and Plan Assessment & Plan (1) Mixed dyslipidemia: Code(s): E78.2 - Mixed hyperlipidemia Plan: Currently on atorvastatin 40 mg daily, reminded to get fasting labs done (2) CKD (chronic kidney disease) stage 3, GFR 30-59 ml/min: Code(s): N18.30 - Chronic kidney disease, stage 3 unspecified Qualifiers: Chronic kidney disease stage 3 subtype: unspecified whether 3a or 3b Qualified Code(s): N18.30 - Chronic kidney disease, stage 3 unspecified Plan: patient states that she 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 Malin and will call and reschedule. Reminded to get her basic metabolic panel lab done. (3) Vitamin D deficiency: Code(s): E55.9 - Vitamin D deficiency, unspecified Plan: Reminded patient to get her fasting labs done to check vitamin-D level (4) Essential hypertension: Code(s): I10 - Essential (primary) hypertension Plan: Blood pressure at goal of less than 130/80. Continue spironolactone to 5 mg daily, bumetanide, carvedilol and losartan. Reinforced importance of following a low sodium diet, getting regular exercise, and lowering stress levels. (5) Paroxysmal atrial fibrillation: Code(s): I48.0 - Paroxysmal atrial fibrillation Plan: Status post IMMERSION METAL CLEANER- D placed, patient states feeling better since it was placed, followed by cardiology currently on carvedilol and bumetanide as well as losartan and spironolactone. (6) Type 2 diabetes mellitus with hyperglycemia, with long-term current use of insulin: Code(s): E11.65 - Type 2 diabetes mellitus with hyperglycemia; Z79.4 - [facility] (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 of insulin Plan: Followed by endocrine clinic, currently on [facility] and still waiting for approval from the patient's distance program regarding her insulin Orders: Orders Lipid Panel 09/08/23 N18.30 - Chronic kidney disease, stage 3 unspecified, E55.9 - Vitamin D deficiency, unspecified, I10 - Essential (primary) hypertension, E78.2 - Mixed hyperlipidemia Aspartate Amino Transferase 09/08/23 N18.30 - Chronic kidney disease, stage 3 unspecified, E55.9 - Vitamin D deficiency, unspecified, I10 - Essential (bárbara jhoana) hypertension, E78.2 - Mixed hyperlipidemia Alanine Aminotransferase 09/08/23 N18.30 - Chronic kidney disease, stage 3 unspecified, E55.9 - Vitamin D deficiency, unspecified, I10 - Essential (primary) hypertension, E78.2 - Mixed hyperlipidemia Basic Metabolic Panel Fasting 09/08/23 N18.30 - Chronic kidney disease, stage 3 unspecified, E55.9 - Vitamin D deficiency, unspecified, I10 - Essential (primary) hypertension, E78.2 - Mixed hyperlipidemia Vitamin D 25-OH Total 09/08/23 N18.30 - Chronic kidney disease, stage 3 unspecified, E55.9 - Vitamin D deficiency, unspecified, I10 - Essential (primary) hypertension, E78.2 - Mixed hyperlipidemia Coding Level of Care Code Est Pt Level 4 (63603) Complex EM visit Add On G2211 Diagnoses Mixed dyslipidemia E78.2 Stage 3 chronic kidney disease, unspecified whether stage 3a or 3b CKD N18.30 Chronic kidney disease stage 3 subtype: unspecified whether 3a or 3b Vitamin D deficiency E55.9 Essential hypertension I10 Paroxysmal atrial fibrillation I48.0 Type 2 diabetes mellitus with hyperglycemia, with long-term current use of insulin E11.65; Z79.4
[2023-09-03 11:50] VITALS: BP 128/70; PULSE 68; O2SAT 96; BMI 40.0
== END 2023-09-03 13:07 | disposition home or self-care (01) ==
PROVIDERS: PCP Internal Medicine; Visit Provider Internal Medicine
DX: I12.9 Hypertensive chronic kidney disease with stage 1 through stage 4 chronic kidney disease, or unspecified chronic kidney disease (principal); E11.65 Type 2 diabetes mellitus with hyperglycemia; N18.30 Chronic kidney disease, stage 3 unspecified; I48.0 Paroxysmal atrial fibrillation; Z79.4 Long term (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 of insulin; E78.2 Mixed hyperlipidemia; E55.9 Vitamin D deficiency, unspecified
CPT/HCPCS: 99214; G2211

== ENCOUNTER 2023-09-08 14:31 | Outpatient (REF) | payer MEDICARE, SELFPAY ==
[2023-09-08 18:48] LABS: Alanine Aminotransferase 12 U/L (0-31); Anion Gap 17 (12-20); Aspartate Amino Transferase 13 U/L (5-31); Blood Urea Nitrogen 43 mg/dL (9-16); Calcium 9.5 mg/dL (8.4-10.2); Carbon Dioxide 23 mmol/L (22-29); Chloride 99 mmol/L (96-108); Cholesterol 143 mg/dL (<200); Estimated Glomerular Filt Rate 32; Glucose Fasting 141 mg/dL (60-99); HDL Cholesterol 42 mg/dL (>40); LDL Cholesterol Calculated 70 mg/dL (<100); Potassium 4.2 mmol/L (3.3-5.1); Sodium 135 mmol/L (135-145); Triglycerides 157 mg/dL (<150)
[2023-09-08 19:04] LABS: Vitamin D 25-OH Total 16.1 ng/mL (>30)
== END 2023-09-08 14:32 | disposition home or self-care (01) ==
LOC: HO.HMGCLDS 14:31
PROVIDERS: PCP Internal Medicine; Visit Provider Internal Medicine
DX: I12.9 Hypertensive chronic kidney disease with stage 1 through stage 4 chronic kidney disease, or unspecified chronic kidney disease (principal); N18.30 Chronic kidney disease, stage 3 unspecified; E55.9 Vitamin D deficiency, unspecified; E78.2 Mixed hyperlipidemia
CPT/HCPCS: 36415; 80048; 80061; 82306; 84450; 84460

== ENCOUNTER 2023-09-10 12:48 | Outpatient (AMB) | payer MEDICARE, SELFPAY ==
--- NOTE | 2023-09-10 13:13 | MHC.AMDMED ---
Intake Intake Visit Reasons: f/u Type 2 DM/CONFIRMED Business Education Instructor Required: No Accompanied by: Self / Same As Patient Allergies red dye [Red Dye] Allergy (Severe, Verified 09/03/23 11:48) HIVES,THROAT CLOSES FROM RED FOOD DYE tape Adverse Reaction (Intermediate, Uncoded 09/03/23 11:48) Redness of Skin HPI Comprehensive Diabetes Asmnt Most Recent Diabetes Results: Hemoglobin A1c 9.6 % 06/30/19 Microalb/Creat Ratio 19.4 ug/mg cr 09/21/21 Cholesterol 143 mg/dL (<200) 09/08/23 HDL Cholesterol 42 mg/dL (>40) 09/08/23 Triglycerides 157 mg/dL (<150) H 09/08/23 Creatinine 1.61 mg/dL (0.5-1.4) H 09/08/23 Blood Urea Nitrogen 43 mg/dL (9-16) H 09/08/23 Sodium 135 mmol/L (135-145) 09/08/23 Potassium 4.2 mmol/L (3.3-5.1) 09/08/23 Chloride 99 mmol/L (96-108) 09/08/23 Carbon Dioxide 23 mmol/L (22-29) 09/08/23 Calcium 9.5 mg/dL (8.4-10.2) 09/08/23 AST 13 U/L (5-31) 09/08/23 ALT 12 U/L (0-31) 09/08/23 Total Protein 7.3 g/dL (6.5-8.0) 05/30/23 Albumin 3.9 g/dL (3.5-5.0) 05/30/23 [facility] Medical History Cardiac resynchronization therapy defibrillator (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 SUPERVISOR-D) in place History of COVID-19 Paroxysmal atrial fibrillation CHF (congestive heart failure) Left bundle branch block History of uterine cancer Personal history of malignant neoplasm of other parts of uterus Tinea pedis History of cardioversion Cardiomyopathy Coronary arteriosclerosis Ischemic cardiomyopathy Colonoscopy refused Incomplete left bundle branch block (LBBB) Post-menopausal bleeding Type 2 diabetes mellitus with hyperglycemia, with long-term current use of insulin Vitamin D deficiency Mixed dyslipidemia Papanicolaou smear declined Mammogram declined Osteoarthritis, knee Diabetic neuropathy History of esophagitis Mild intermittent asthma History of basal cell carcinoma Osteonecrosis of right hip Hiatal hernia History of cholelithiasis Morbid obesity Essential hypertension Type 2 diabetes mellitus with hyperglycemia, without long-term current use of insulin Irritable bowel syndrome (IBS) Surgical History S/P CLARE-BSO (total abdominal hysterectomy and bilateral salpingo-oophorectomy) S/P cardiac catheterization History of hysterectomy H/O hernia repair Hx of section History of hip surgery Hx of colonoscopy History of cholecystectomy Family History Father Myocardial infarction Cardiovascular disease Mother Diabetes mellitus Essential hypertension Daughter Anxiety disorder Mental health disorder Son Mental health disorder Social History Household Members: Spouse and Children Housing: House Are you a primary career development consultant to a significant other at home: No Do you presently have visiting nurse or other home services: No Alcohol intake: never Comment: pt refuses alarms Patient Tobacco Use Status: Never used Tobacco e-Cigarette/Vaping Use: Never Used Second Hand Smoke Exposure: No Advance Directives Date on File: 04/08/22 service: No Current occupational status: retired Current occupational exposures/hazards: No Cognitive needs: No Hearing needs: No Vision needs: Yes Assessment & Plan Assessment & Plan (1) Type 2 diabetes mellitus with hyperglycemia, with long-term current use of insulin: Code(s): E11.65 - Type 2 diabetes mellitus with hyperglycemia; Z79.4 - algologist (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 of insulin Plan: Personal Continuous Glucose Monitor: Patients CGM information reviewed Reviewed patient's sensor data: Hypoglycemia: ? 0% Hyperglycemia:? 69% Time in Range:? 31% Average glucose for the last 1 week? 201 mg/dL Patient has had Trulicity 3 mg approved by [facility], reports that they sent her 1 box Humalog KwikPen, did not confirm that she will be getting Basaglar. Patient is currently taking Trulicity 3 mg weekly Humalog 16 units before meals She has no basal insulin coverage at this time At last visit with Dr. Cortez he discussed her starting Relion NPH for basal insulin 21 units b.i.d. Patient is above glucose targets, reviewed with patient the action of Humalog, and the action of NPH Recommended patient consider using Relion NPH until she knows if Basaglar will be approved In addition patient asked for patient assistance program application to [employer], to apply for assistance with [employer] Message sent to Dr. Cortez about if patient should be starting NPH and added to patient's med list Portions of this note were created using voice recognition software, please excuse any words or phrases that may have been misinterpreted. Coding Level of Care Code Est Pt Level 1 (71575) Diagnoses Type 2 diabetes mellitus with hyperglycemia, with long-term current use of insulin E11.65; Z79.4
== END 2023-09-10 13:15 | disposition home or self-care (01) ==
PROVIDERS: PCP Internal Medicine; Visit Provider Registered Nurse Diabetes Educator
DX: E11.65 Type 2 diabetes mellitus with hyperglycemia (principal); Z79.4 Long term (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 of insulin

== ENCOUNTER → 2023-09-10 12:48 | Outpatient (BNVA) | payer MEDICARE, SELFPAY | PROVIDERS: PCP Internal Medicine; Visit Provider Registered Nurse Diabetes Educator | DX: E11.65 Type 2 diabetes mellitus with hyperglycemia (principal); Z79.4 Long term (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 of insulin | CPT/HCPCS: 99211 ==

== ENCOUNTER 2023-09-22 13:45 | Outpatient (AMB) | payer MEDICARE, SELFPAY ==
[2023-09-22 14:08] LABS: Prothrombin Time Whole Bld POC 22.7 sec (11.1-13.5); ~PT, ~INR - Anti Coag Clinic 1.9 (0.9-1.1)
--- NOTE | 2023-09-22 14:15 | MHC.OFFVISCO ---
Intake Intake Visit Reasons: Anticoagulation Allergies red dye [Red Dye] Allergy (Severe, Verified 09/22/23 14:03) HIVES,THROAT CLOSES FROM RED FOOD DYE tape Adverse Reaction (Intermediate, Uncoded 09/22/23 14:03) Redness of Skin Medication List - Last Reconciled 09/22/23 by Jeanna Suarez, RN albuterol sulfate 90 mcg/actuation 180 mcg inhalation Q6H PRN atorvastatin 40 mg PO DAILY blood sugar diagnostic (FreeStyle Lite Strips) As directed check sugar twice a day before meals blood-glucose meter (FreeStyle Lite Meter kit) As directed bumetanide 3 mg PO Q2D@0900 bumetanide 2 mg PO Q2D@0900 carvedilol 6.25 mg PO BID 90 days clotrimazole 1% (Athlete's Foot (clotrimazole)) 1 appl topical BID 4 weeks dulaglutide (Trulicity) 3 mg subcut FR@0900 flash glucose scanning reader ([employer] Tabatha 2 [place]) As directed flash glucose sensor (FreeStyle Tabatha 2 Sensor kit) As directed change every 14 days insulin lispro (Humalog Tempo Pen (U-100) Insulin) 16 units subcut TID insulin NPH isoph U-100 human 21 units (0.21 mL) subcut BID insulin syringe-needle U-100 (BD Veo Insulin Syringe Ultra-Fine) As directed twice a day lancets (FreeStyle Lancets) As directed losartan 25 mg PO DAILY nystatin (Nystop) 1 appl topical BID PRN pen needle, diabetic (BD Ultra-Fine Short Pen Needle) USE 4 times a day Saccharomyces boulardii (Digest Probiotic (S.boulardii)) PO [scale-accommodate weight 300 lbs As directed] spironolactone 25 mg PO DAILY warfarin 5 mg See Protocol PO SUMOTUTHFRSA@1800 Nursing Note INR 1.9 out of therapeutic range of 2-3 Medications and supplements reviewed Patient status: well Medications or supplements: no changes Diet: usual diet for pt Denies any signs and symptoms of bleeding or clotting or unusual bruising Bleeding, bruising, clotting discussed Nutritional guidance given: pt to hold greens X 2 days and today will have a serving of food from the list that raises the INR. Food list reviewed and given to pt. Dose: 5mg X 5 days and 2.5mg X 2 days F/U INR Date : 2 weeks ?? Patient verbalizing understanding of instructions given. 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 ) Psych. 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
== END 2023-09-22 14:50 | disposition home or self-care (01) ==
LOC: HO.ACS 13:45
PROVIDERS: PCP Internal Medicine; Visit Provider Internal Medicine
DX: Z79.01 Long term (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 of anticoagulants (principal)

== ENCOUNTER → 2023-09-22 13:45 | Outpatient (BNVA) | payer MEDICARE, SELFPAY | PROVIDERS: PCP Internal Medicine; Visit Provider Internal Medicine | DX: I48.0 Paroxysmal atrial fibrillation (principal); Z51.81 Encounter for therapeutic drug level monitoring; Z79.01 Long term (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 of anticoagulants | CPT/HCPCS: 85610; 99211 ==

== ENCOUNTER → 2023-09-26 14:00 | Outpatient (REF) | payer MEDICARE, SELFPAY ==
--- NOTE | 2023-09-26 14:03 | CA_ITS ---
Transthoracic Echocardiogram Patient (Last, First, Middle): July Dorantes J Gender: Female Date of : 1955 Age: 68 Procedure Date: 09/26/2023 Procedure Type: Transthoracic Echocardiogram Location: OP Height: 162.56 cm Weight: 109.77 kg BSA: 2.12 m2 Heart Rate: 63 bpm BP: 122 / 72 mmHg Manager Relationship: SB Referring MD: Maria Fernanda Christopher NP Symptoms: I48.0 - Paroxysmal atrial fibrillation Study Quality: Adequate w contrast ECG Rhythm: Sinus Conclusions: - Normal left ventricular cavity size. There is severely increased left ventricular wall thickness. The left ventricular systolic function is moderate to severely decreased. The visually estimated ejection fraction is between 25-30%. - E/E prime ratio is >15, consistent with elevated filling pressures. - The inferoseptal wall, the basal inferior, and mid inferior segments are akinetic. - There is mild dilatation of the ascending aorta measuring 3.40 cm. Findings Procedure Information Contrast agent, definity, is being given per protocol without apparent complications. Left Ventricle Normal left ventricular cavity size. There is severely increased left ventricular wall thickness. The left ventricular systolic function is moderate to severely decreased. The visually estimated ejection fraction is between 25-30%. There is evidence of regional wall motion abnormalities. Abnormal diastolic function is noted. Spectral Doppler is indicative of a restrictive filling pattern. E/E prime ratio is >15, consistent with elevated filling pressures. Wall Motion Rest Echo Findings The inferoseptal wall, the basal inferior, and mid inferior segments are akinetic. Right Ventricle Normal right ventricular cavity size and systolic function. Atria The left atrium is moderately dilated. The right atrium is normal in size. Aortic Valve The aortic valve structure and function is likely normal. There is no aortic valve stenosis. There is no aortic valve regurgitation. Mitral Valve The mitral valve appears normal. There is no mitral valve regurgitation. There is no mitral valve stenosis. Pulmonic Valve The pulmonic valve is normal. There is trace pulmonic valve regurgitation. Tricuspid Valve Normal tricuspid valve structure. There is no tricuspid valve regurgitation. Tricuspid regurgitation envelope is inadequate for calculation of right ventricular systolic pressure. Normal right atrial pressure. Great Vessels There is mild dilatation of the ascending aorta measuring 3.40 cm. The visualized portions of the pulmonary artery and branches are normal. Venous The inferior vena cava is normal in size and collapses greater than 50% with inspiration. Pericardium/Pleural There is no evidence of pericardial effusion. Prior Study Comparison Changes noted compared to prior study dated: 02/28/2023. LVEF 25 to 30%. Minimal improvement in the EF. LV is severely dilated. Measurements 2D Linear Measurements IVSd: 0.92 0.6-0.9/0.6-1.0 cm LVIDd: 6.64 3.9-5.3/4.2-5.9 cm LVIDd Index: 3.13 2.4-3.2/2.2-3.1 cm/m2 LVIDs: 5.45 2.0-3.6 cm LVPWd: 0.76 0.7-1.1 cm LA Diam: 4.70 2.7-3.8/3.0-4.0 cm LAIDs Index: 2.22 1.5-2.3 cm/m2 LV Mass: 294.29 67-162/88-224 g LV Mass Index: 138.81 43-95/49-115 g/m2 LVOT Diam: 2.20 3.0+(-)1.3 cm 2D Systolic Function EF 4C: 37.40 >55% EF 2C: 38.00 >55% EF BiP: 37.30 >55% Mitral Valve MV Pk E: 1.08 MV PK A: 0.42 MV Decel Time: 210.00 E/A: 2.50 E'Lateral: 4.68 E'Medial: 5.55 E/E' Med: 19.50 E/E' Lat: 23.10 PHT: 62.00 MVA PHT: 3.55 Decel Coles: 5.11 Aortic Valve AoV Pk Héctor: 1.93 AoV Mn Héctor: 1.32 AoV VTI: 0.45 AoV Pk Grad: 15.00 Aov Mn Grad: 8.00 SANDEEP Cont.VTI: 1.64 LVOT LVOT Pk Héctor: 0.86 LVOT Mn Héctor: 0.59 LVOT VTI: 0.19 LVOT Pk Grad: 3.00 LVOT Mn Grad: 2.00 LVOT Diam: 2.20 LVOT Area: 3.80 Diastolic Function MV Pk E: 1.08 MV Pk A: 0.42 E/A: 2.50 E'Medial: 5.55 E/E' Med: 19.50 E' Laterial: 4.68 E/E' Lat: 23.10 Right Ventricle TAPSE (mm): 23.40 TVS' Héctor: 9.14 Tricuspid Valve RA Press: 8.00 Great Vessels Aorta Sinus of Valsalva: 2.80 2.0-3.5 cm Ao Asc: 3.40 2.1-3.4 cm Pulmonary Valve PV Pk Héctor: 0.73 Peak PV Grad: 2.00 Updated in Other Vendor System with Status of Final Cesar Storey MD electronically signed on 09/28/2023 1:54:04 PM with status of Final
== END ==
LOC: HO.CARD 14:00
PROVIDERS: PCP Internal Medicine; Visit Provider Nurse Practitioner
DX: I48.0 Paroxysmal atrial fibrillation (principal); I50.20 Unspecified systolic (congestive) heart failure
CPT/HCPCS: 93306; Q9957

== ENCOUNTER → 2023-09-26 14:03 | Outpatient (BNV) | payer MEDICARE, SELFPAY | PROVIDERS: PCP Internal Medicine; Visit Provider Internal Medicine Cardiovascular Disease | DX: I48.0 Paroxysmal atrial fibrillation (principal) | CPT/HCPCS: 93306 ==

== ENCOUNTER → 2023-09-29 14:39 | Outpatient (BNVA) | payer MEDICARE, SELFPAY | PROVIDERS: PCP Internal Medicine; Visit Provider Internal Medicine Cardiovascular Disease ==

== ENCOUNTER 2023-10-06 14:00 | Outpatient (AMB) | payer MEDICARE, SELFPAY ==
[2023-10-06 14:07] LABS: Prothrombin Time Whole Bld POC 26.8 sec (11.1-13.5); ~PT, ~INR - Anti Coag Clinic 2.2 (0.9-1.1)
--- NOTE | 2023-10-06 14:10 | MHC.OFFVISCO ---
Intake Intake Visit Reasons: Anticoagulation Allergies red dye [Red Dye] Allergy (Severe, Verified 10/06/23 14:01) HIVES,THROAT CLOSES FROM RED FOOD DYE tape Adverse Reaction (Intermediate, Uncoded 10/06/23 14:01) Redness of Skin Medication List - Last Reconciled 10/06/23 by Jeanna Suarez, RN albuterol sulfate 90 mcg/actuation 180 mcg inhalation Q6H PRN atorvastatin 40 mg PO DAILY blood sugar diagnostic (FreeStyle Lite Strips) As directed check sugar twice a day before meals blood-glucose meter (FreeStyle Lite Meter kit) As directed bumetanide 3 mg PO Q2D@0900 bumetanide 2 mg PO Q2D@0900 carvedilol 6.25 mg PO BID 90 days clotrimazole 1% (Athlete's Foot (clotrimazole)) 1 appl topical BID 4 weeks dulaglutide (Trulicity) 3 mg subcut FR@0900 flash glucose scanning reader ([employer]Style Tabatha 2 [place]) As directed flash glucose sensor (FreeStyle Tabatha 2 Sensor kit) As directed change every 14 days insulin lispro (Humalog Tempo Pen (U-100) Insulin) 16 units subcut TID insulin NPH isoph U-100 human 21 units (0.21 mL) subcut BID insulin syringe-needle U-100 (BD Veo Insulin Syringe Ultra-Fine) As directed twice a day lancets (FreeStyle Lancets) As directed losartan 25 mg PO DAILY nystatin (Nystop) 1 appl topical BID PRN pen needle, diabetic (BD Ultra-Fine Short Pen Needle) USE 4 times a day Saccharomyces boulardii (Digest Probiotic (S.boulardii)) PO [scale-accommodate weight 300 lbs As directed] spironolactone 25 mg PO DAILY warfarin 5 mg See Protocol PO SUMOTUTHFRSA@1800 Nursing Note INR: 2.2 in therapeutic range of 2-3 Medications and supplements reviewed No changes in health, diet, medications, or supplements, Denies any signs and symptoms of bleeding or bruising or clotting. Bleeding, bruising, clotting discussed Nutritional guidance given to continue to balance reds and greens Dose: F/U INR: 2 weeks Patient verbalizes understanding of instructions given Anti-Coag Initial Assessment Social Hx Patient Tobacco Use Status: Never used Tobacco alcohol intake: never Alcohol intake frequency: does not drink Cardiovascular Hx: HTN, Angina, CAD, CHF, Arrhythmias, Varicose Veins and Other Lung Disease HX: Asthma Endocrine Hx: Diabetes Musculoskeletal Hx: Arthritis Blood Disorder Hx: Hyperlipidemia GI Hx: Ulcers, Bleeding (GI, rectal) and Other Hx: Kidney Disease Neurological Hx: Serious Head Injury and Migraines/Headaches 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 ) Psych. Illness/Depression: No Coding Level of Care Code Est Patient Level 1 Diagnoses Current use of anticoagulant therapy Z79.01 Assessment & Plan Assessment & Plan (1) Current use of anticoagulant therapy: Code(s): Z79.01 - skilled nursing (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 of anticoagulants Category: Medical
== END 2023-10-06 14:14 | disposition home or self-care (01) ==
LOC: HO.ACS 14:00
PROVIDERS: PCP Internal Medicine; Visit Provider Internal Medicine
DX: Z79.01 Long term (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 of anticoagulants (principal)

== ENCOUNTER → 2023-10-06 14:00 | Outpatient (BNVA) | payer MEDICARE, SELFPAY | PROVIDERS: PCP Internal Medicine; Visit Provider Internal Medicine | DX: I48.0 Paroxysmal atrial fibrillation (principal); Z79.01 Long term (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 of anticoagulants; Z51.81 Encounter for therapeutic drug level monitoring | CPT/HCPCS: 85610; 99211 ==

== ENCOUNTER 2023-10-20 13:06 | Outpatient (AMB) | payer MEDICARE, SELFPAY ==
--- NOTE | 2023-10-20 13:13 | MHC.OFFVISCO ---
Intake Intake Visit Reasons: Anticoagulation Allergies red dye [Red Dye] Allergy (Severe, Verified 10/20/23 13:12) HIVES,THROAT CLOSES FROM RED FOOD DYE tape Adverse Reaction (Intermediate, Uncoded 10/20/23 13:12) Redness of Skin Medication List - Last Reconciled 10/20/23 by Agnes Weaver, RN albuterol sulfate 90 mcg/actuation 180 mcg inhalation Q6H PRN atorvastatin 40 mg PO DAILY blood sugar diagnostic (FreeStyle Lite Strips) As directed check sugar twice a day before meals blood-glucose meter (FreeStyle Lite Meter kit) As directed bumetanide 3 mg PO Q2D@0900 bumetanide 2 mg PO Q2D@0900 carvedilol 6.25 mg PO BID 90 days clotrimazole 1% (Athlete's Foot (clotrimazole)) 1 appl topical BID 4 weeks dulaglutide (Trulicity) 3 mg subcut FR@0900 flash glucose scanning reader (Thromb[employer] Science [employer]Style Tabatha 2 [place]) As directed flash glucose sensor (FreeStyle Tabatha 2 Sensor kit) As directed change every 14 days insulin lispro (Humalog Tempo Pen (U-100) Insulin) 16 units subcut TID insulin NPH isoph U-100 human 21 units (0.21 mL) subcut BID insulin syringe-needle U-100 (BD Veo Insulin Syringe Ultra-Fine) As directed twice a day lancets (FreeStyle Lancets) As directed losartan 25 mg PO DAILY nystatin (Nystop) 1 appl topical BID PRN pen needle, diabetic (BD Ultra-Fine Short Pen Needle) USE 4 times a day Saccharomyces boulardii (Digest Probiotic (S.boulardii)) PO [scale-accommodate weight 300 lbs As directed] spironolactone 25 mg PO DAILY warfarin 5 mg See Protocol PO SUMOTUTHFRSA@1800 Nursing Note INR: 2.3- in therapeutic range of 2-3 Medications and supplements reviewed- no changes No changes in health, diet, medications, or supplements, Denies any signs and symptoms of bleeding or bruising or clotting. Bleeding, bruising, clotting discussed Nutritional guidance given Dose: 2.5mg x 2, 5mg x 5 F/U INR: 2 weeks Patient verbalizes understanding of instructions given Anti-Coag Initial Assessment Social Hx Patient Tobacco Use Status: Never used Tobacco alcohol intake: never Alcohol intake frequency: does not drink Cardiovascular Hx: HTN, Angina, CAD, CHF, Arrhythmias, Varicose Veins and Other Lung Disease HX: Asthma Endocrine Hx: Diabetes Musculoskeletal Hx: Arthritis Blood Disorder Hx: Hyperlipidemia GI Hx: Ulcers, Bleeding (GI, rectal) and Other Hx: Kidney Disease Neurological Hx: Serious Head Injury and Migraines/Headaches 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 ) Psych. Illness/Depression: No Questionnaires HAS-BLED Does the patient had uncontrolled Hypertension?: No Does the patient have renal disease?: Yes Does the patient have liver disease?: No Does the patient have a history of stroke?: No Has the patient had major bleeding or predisposition to bleeding?: Yes Does the patient have labile INRs?: Yes Is the patient over 65 years of age?: Yes Is the patient on medications that gives them a predisposition to bleeding?: Yes Does the patient use alcohol?: No HAS-BLED Score: 5 CHADSVASC Age: 66-74 Gender: Female Does the patient have a history of CHF?: Yes Does the patient have a history of Hypertension?: Yes Does the patient have a history of Stroke/TIA/Thromboembolism?: No Does the patient have a history of Vascular Disease (prior [place], PAD or aortic plaque)?: Yes Does the patient have a history of Diabetes?: Yes CHADS VACS Score: 6 Winston Prediction Score Rsk VTE Active Cancer: No Previous VTE, excluding superficial vein thrombosis: No Reduced mobility: Yes Already known Thrombophilic Condition: No With-in last month Trauma and/or Surgery: No Elderly 70 year or older: No Heart and/or Respiratory Failure: Yes Acute Myocardial infarction and/or Ischemic Stroke: No Acute Infection and/or Rheumatologic Disorder: No Obesity (BMI 30 or greater): Yes Ongoing Hormonal Treatment: No Score: 5 Winston Score less than 4; Low Risk of VTE Winston Score 4 or greater; High Risk of VTE Coding Level of Care Code Est Patient Level 1 Diagnoses Current use of anticoagulant therapy Z79.01 Assessment & Plan Assessment & Plan (1) Current use of anticoagulant therapy: Code(s): Z79.01 - intermission coordinator (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 of anticoagulants Category: Medical
[2023-10-20 13:18] LABS: Prothrombin Time Whole Bld POC 27.4 sec (11.1-13.5); ~PT, ~INR - Anti Coag Clinic 2.3 (0.9-1.1)
== END 2023-10-20 13:28 | disposition home or self-care (01) ==
LOC: HO.ACS 13:06
PROVIDERS: PCP Internal Medicine; Visit Provider Internal Medicine
DX: Z79.01 Long term (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 of anticoagulants (principal)

== ENCOUNTER → 2023-10-20 13:06 | Outpatient (BNVA) | payer MEDICARE, SELFPAY | PROVIDERS: PCP Internal Medicine; Visit Provider Internal Medicine | DX: I48.0 Paroxysmal atrial fibrillation (principal); Z79.01 Long term (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 of anticoagulants; Z51.81 Encounter for therapeutic drug level monitoring | CPT/HCPCS: 85610; 99211 ==

== ENCOUNTER 2023-11-03 13:03 | Outpatient (AMB) | payer MEDICARE, SELFPAY ==
[2023-11-03 13:16] LABS: Prothrombin Time Whole Bld POC 36.7 sec (11.1-13.5); ~PT, ~INR - Anti Coag Clinic 3.1 (0.9-1.1)
--- NOTE | 2023-11-03 13:16 | MHC.OFFVISCO ---
Intake Intake Visit Reasons: Anticoagulation Allergies red dye [Red Dye] Allergy (Severe, Verified 11/03/23 13:08) HIVES,THROAT CLOSES FROM RED FOOD DYE tape Adverse Reaction (Intermediate, Uncoded 11/03/23 13:08) Redness of Skin Medication List - Last Reconciled 11/03/23 by Agnes Weaver, ZENAIDA albuterol sulfate 90 mcg/actuation 180 mcg inhalation Q6H PRN atorvastatin 40 mg PO DAILY blood sugar diagnostic (FreeStyle Lite Strips) As directed check sugar twice a day before meals blood-glucose meter (FreeStyle Lite Meter kit) As directed bumetanide 3 mg PO Q2D@0900 bumetanide 2 mg PO Q2D@0900 carvedilol 6.25 mg PO BID 90 days clotrimazole 1% (Athlete's Foot (clotrimazole)) 1 appl topical BID 4 weeks dulaglutide (Trulicity) 3 mg subcut FR@0900 flash glucose scanning reader ([employer]Style Tabatha 2 [place]) As directed flash glucose sensor (FreeStyle Tabatha 2 Sensor kit) As directed change every 14 days insulin lispro (Humalog Tempo Pen (U-100) Insulin) 16 units subcut TID insulin NPH isoph U-100 human 21 units (0.21 mL) subcut BID insulin syringe-needle U-100 (BD Veo Insulin Syringe Ultra-Fine) As directed twice a day lancets (FreeStyle Lancets) As directed losartan 25 mg PO DAILY nystatin (Nystop) 1 appl topical BID PRN pen needle, diabetic (BD Ultra-Fine Short Pen Needle) USE 4 times a day Saccharomyces boulardii (Digest Probiotic (S.boulardii)) PO [scale-accommodate weight 300 lbs As directed] spironolactone 25 mg PO DAILY warfarin 5 mg See Protocol PO SUMOTUTHFRSA@1800 Nursing Note INR 3.1-? out of therapeutic range of 2-3 Medications and supplements reviewed Patient status: no c.o Medications or supplements: no changes Diet: appetite is good Denies any signs and symptoms of bleeding or clotting or unusual bruising Bleeding, bruising, clotting discussed Nutritional guidance given: eat greens to lower, no reds for 2 days Dose: cont reg dosing- 2.5mg x 2, 5mg x 5 F/U INR Date : 2 weeks?? Patient verbalizing understanding of instructions given. 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 ) Psych. Illness/Depression: No Coding Level of Care Code Est Patient Level 1 Diagnoses Current use of anticoagulant therapy Z79.01 Assessment & Plan Assessment & Plan (1) Current use of anticoagulant therapy: Code(s): Z79.01 - [facility] (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 of anticoagulants Category: Medical
== END 2023-11-03 13:21 | disposition home or self-care (01) ==
LOC: HO.ACS 13:03
PROVIDERS: PCP Internal Medicine; Visit Provider Internal Medicine
DX: Z79.01 Long term (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 of anticoagulants (principal)

== ENCOUNTER → 2023-11-03 13:03 | Outpatient (BNVA) | payer MEDICARE, SELFPAY | PROVIDERS: PCP Internal Medicine; Visit Provider Internal Medicine | DX: I48.0 Paroxysmal atrial fibrillation (principal); Z79.01 Long term (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 of anticoagulants; Z51.81 Encounter for therapeutic drug level monitoring | CPT/HCPCS: 85610; 99211 ==

== ENCOUNTER 2023-11-18 12:58 | Outpatient (AMB) | payer MEDICARE, SELFPAY ==
[2023-11-18 13:25] LABS: Prothrombin Time Whole Bld POC 16.7 sec (11.1-13.5); ~PT, ~INR - Anti Coag Clinic 1.4 (0.9-1.1)
--- NOTE | 2023-11-18 13:32 | MHC.OFFVISCO ---
Intake Intake Visit Reasons: Anticoagulation Allergies red dye [Red Dye] Allergy (Severe, Verified 11/18/23 13:06) HIVES,THROAT CLOSES FROM RED FOOD DYE tape Adverse Reaction (Intermediate, Uncoded 11/18/23 13:06) Redness of Skin Medication List - Last Reconciled 11/18/23 by Jeanna Suarez, RN albuterol sulfate 90 mcg/actuation 180 mcg inhalation Q6H PRN atorvastatin 40 mg PO DAILY blood sugar diagnostic (FreeStyle Lite Strips) As directed check sugar twice a day before meals blood-glucose meter (FreeStyle Lite Meter kit) As directed bumetanide 3 mg PO Q2D@0900 bumetanide 2 mg PO Q2D@0900 carvedilol 6.25 mg PO BID 90 days clotrimazole 1% (Athlete's Foot (clotrimazole)) 1 appl topical BID 4 weeks dulaglutide (Trulicity) 3 mg subcut FR@0900 flash glucose scanning reader (HAKIM Information TechnologyStyle Tabatha 2 [place]) As directed flash glucose sensor (FreeStyle Tabatha 2 Sensor kit) As directed change every 14 days insulin lispro (Humalog Tempo Pen (U-100) Insulin) 16 units subcut TID insulin syringe-needle U-100 (BD Veo Insulin Syringe Ultra-Fine) As directed twice a day lancets (FreeStyle Lancets) As directed losartan 25 mg PO DAILY nystatin (Nystop) 1 appl topical BID PRN pen needle, diabetic (BD Ultra-Fine Short Pen Needle) USE 4 times a day Saccharomyces boulardii (Digest Probiotic (S.boulardii)) PO [scale-accommodate weight 300 lbs As directed] spironolactone 25 mg PO DAILY warfarin 5 mg See Protocol PO SUMOTUTHFRSA@1800 Nursing Note INR 1.4?out of therapeutic range of 2-3 Pt thinks she missed a dose yesterday but then also states on Friday which is 3 days ago, she missed 2 days and when questioned further she states she has no recollection of last and Friday. It's possible pt missed more than 1 dose. She was able to verify her daily dose of warfarin. When reconcilling meds, she states she is not on NPH because it was too expensive and that her blood sugars have been 240's-250's. Medications and supplements reviewed: pt to bring in med list next visit Patient status: feels well other than being forgetful Medications or supplements: verified what pt could remember Diet: usual diet for pt Denies any signs and symptoms of bleeding or clotting or unusual bruising Bleeding, bruising, clotting discussed Nutritional guidance given: no greens and will have foods from the list that raises the INR. States will have carrots and onions Dose: increased today's dose to 7.5mg (5mg) and increase tomorrow's dose to 7.5mg (2.5mg) then usual dose of 5mg the next day then return to [facility] for testing F/U INR Date : 11/21/23?? Patient verbalizing understanding of instructions given. 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 ) Psych. 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
== END 2023-11-18 13:43 | disposition home or self-care (01) ==
LOC: HO.ACS 12:58
PROVIDERS: PCP Internal Medicine; Visit Provider Internal Medicine
DX: Z79.01 Long term (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 of anticoagulants (principal)

== ENCOUNTER → 2023-11-18 12:58 | Outpatient (BNVA) | payer MEDICARE, SELFPAY | PROVIDERS: PCP Internal Medicine; Visit Provider Internal Medicine | DX: I48.0 Paroxysmal atrial fibrillation (principal); Z79.01 Long term (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 of anticoagulants; Z51.81 Encounter for therapeutic drug level monitoring | CPT/HCPCS: 85610; 99211 ==

== ENCOUNTER → 2023-11-18 23:59 | Outpatient (BNV) | payer MEDICARE, SELFPAY ==
--- NOTE | 2023-11-19 21:13 | A.OFFVIS_ITS ---
Intake Visit Reasons: Remote ICD check- [employer] Allergies red dye [Red Dye] Allergy (Severe, Verified 11/18/23 13:06) HIVES,THROAT CLOSES FROM RED FOOD DYE tape Adverse Reaction (Intermediate, Uncoded 11/18/23 13:06) Redness of Skin PFSH Medical History Cardiac resynchronization therapy defibrillator (RN PROGRESSIVE CARE UNIT-D) in place History of COVID-19 Paroxysmal atrial fibrillation CHF (congestive heart failure) Left bundle branch block History of uterine cancer Personal history of malignant neoplasm of other parts of uterus Tinea pedis History of cardioversion Cardiomyopathy Coronary arteriosclerosis Ischemic cardiomyopathy Colonoscopy refused Incomplete left bundle branch block (LBBB) Post-menopausal bleeding Type 2 diabetes mellitus with hyperglycemia, with long-term current use of insulin Vitamin D deficiency Mixed dyslipidemia Papanicolaou smear declined Mammogram declined Osteoarthritis, knee Diabetic neuropathy History of esophagitis Mild intermittent asthma History of basal cell carcinoma Osteonecrosis of right hip Hiatal hernia History of cholelithiasis Morbid obesity Essential hypertension Type 2 diabetes mellitus with hyperglycemia, without long-term current use of insulin Irritable bowel syndrome (IBS) Surgical History S/P CLARE-BSO (total abdominal hysterectomy and bilateral salpingo-oophorectomy) S/P cardiac catheterization History of hysterectomy H/O hernia repair Hx of section History of hip surgery Hx of colonoscopy History of cholecystectomy Family History Father Myocardial infarction Cardiovascular disease Mother Diabetes mellitus Essential hypertension Daughter Anxiety disorder Mental health disorder Son Mental health disorder Social History Household Members: Spouse and Children Housing: House Are you a primary healthcare consultant to a significant other at home: No Do you presently have visiting nurse or other home services: No Alcohol intake: never Comment: pt refuses alarms Patient Tobacco Use Status: Never used Tobacco e-Cigarette/Vaping Use: Never Used Second Hand Smoke Exposure: No Advance Directives Date on File: 04/08/22 service: No Current occupational status: retired Current occupational exposures/hazards: No Cognitive needs: No Hearing needs: No Vision needs: Yes Office Procedures Cardiac Device Check Cardiac Device Check Details: RN PROGRESSIVE CARE UNIT-D Good battery DOLLYMAN 100% No new alerts. 11889-IS Cardiac Device Check, multi lead implantable defibrillator Procedure code (CPT) selection complete Results AMB INR Fingerstick AMB INR Fingerstick 1.4 Last Edit by Jeanna Suarez RN on 11/18/23 13:22 interface delay Assessment & Plan Assessment & Plan (1) HFrEF (heart failure with reduced ejection fraction): Code(s): I50.20 - Unspecified systolic (congestive) heart failure Category: Medical Plan: Orders: Orders AMB Cardiac Device Follow-up 11/18/23 I50.20 - Unspecified systolic (congestive) heart failure Coding Level of Care Code Procedure Only Diagnoses HFrEF (heart failure with reduced ejection fraction) I50.20 CPT Codes Cardiac Device Check - Cardiac Device 6: [id number]-SQ Cardiac Device Check, multi lead implantable defibrillator ([id number])
== END ==
PROVIDERS: PCP Internal Medicine; Visit Provider Internal Medicine Cardiovascular Disease
DX: I50.20 Unspecified systolic (congestive) heart failure (principal); Z95.810 Presence of automatic (implantable) cardiac defibrillator
CPT/HCPCS: 93295

== ENCOUNTER 2023-11-21 13:54 | Outpatient (AMB) | payer MEDICARE, SELFPAY ==
[2023-11-21 14:13] LABS: Prothrombin Time Whole Bld POC 20.1 sec (11.1-13.5); ~PT, ~INR - Anti Coag Clinic 1.7 (0.9-1.1)
--- NOTE | 2023-11-21 14:23 | MHC.OFFVISCO ---
Intake Intake Visit Reasons: Anticoagulation Allergies red dye [Red Dye] Allergy (Severe, Verified 11/21/23 14:05) HIVES,THROAT CLOSES FROM RED FOOD DYE tape Adverse Reaction (Intermediate, Uncoded 11/21/23 14:05) Redness of Skin Medication List - Last Reconciled 11/21/23 by Marybeth Timmons, RN albuterol sulfate 90 mcg/actuation 180 mcg inhalation Q6H PRN atorvastatin 40 mg PO DAILY blood sugar diagnostic (FreeStyle Lite Strips) As directed check sugar twice a day before meals blood-glucose meter (FreeStyle Lite Meter kit) As directed bumetanide 3 mg PO Q2D@0900 bumetanide 2 mg twice daily alternating with 3 mg twice daily, as before carvedilol 6.25 mg PO BID 90 days clotrimazole 1% (Athlete's Foot (clotrimazole)) 1 appl topical BID 4 weeks dulaglutide (Trulicity) 3 mg subcut FR@0900 flash glucose scanning reader ([employer]Style Tabatha 2 [place]) As directed flash glucose sensor (FreeStyle Tabatha 2 Sensor kit) As directed change every 14 days insulin lispro (Humalog Tempo Pen (U-100) Insulin) 16 units subcut TID insulin syringe-needle U-100 (BD Veo Insulin Syringe Ultra-Fine) As directed twice a day lancets (FreeStyle Lancets) As directed losartan 25 mg PO DAILY nystatin (Nystop) 1 appl topical BID PRN pen needle, diabetic (BD Ultra-Fine Short Pen Needle) USE 4 times a day Saccharomyces boulardii (Digest Probiotic (S.boulardii)) PO [scale-accommodate weight 300 lbs As directed] spironolactone 25 mg PO DAILY warfarin 5 mg See Protocol PO SUMOTUTHFRSA@1800 Nursing Note INR: 1.7 not in therapeutic range Medications and supplements reviewed No changes in health, diet, medications, or supplements, - may be able to receive an insulin that can help with her blood sugars Denies any signs and symptoms of bleeding or bruising or clotting. Bleeding, bruising, clotting discussed Nutritional guidance given - avoid greens x 2 days - eat orange and reds to help raise the INR Dose: Resume usual dose 5mg x 5 days/ 2.5mg x 2 days F/U INR: 11/24/23 Patient verbalizes understanding of instructions given Anti-Coag Initial Assessment Social Hx Patient Tobacco Use Status: Never used Tobacco alcohol intake: never Alcohol intake frequency: does not drink Cardiovascular Hx: HTN, Angina, CAD, CHF, Arrhythmias, Varicose Veins and Other Lung Disease HX: Asthma Endocrine Hx: Diabetes Musculoskeletal Hx: Arthritis Blood Disorder Hx: Hyperlipidemia GI Hx: Ulcers, Bleeding (GI, rectal) and Other Hx: Kidney Disease Neurological Hx: Serious Head Injury and Migraines/Headaches 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 ) Psych. 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
== END 2023-11-21 14:28 | disposition home or self-care (01) ==
LOC: HO.ACS 13:54
PROVIDERS: PCP Internal Medicine; Visit Provider Internal Medicine
DX: Z79.01 Long term (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 of anticoagulants (principal)

== ENCOUNTER → 2023-11-21 13:54 | Outpatient (BNVA) | payer MEDICARE, SELFPAY | PROVIDERS: PCP Internal Medicine; Visit Provider Internal Medicine | DX: I48.0 Paroxysmal atrial fibrillation (principal); Z79.01 Long term (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 of anticoagulants; Z51.81 Encounter for therapeutic drug level monitoring | CPT/HCPCS: 85610; 99211 ==

== ENCOUNTER 2023-11-28 13:59 | Outpatient (AMB) | payer MEDICARE, SELFPAY ==
[2023-11-28 14:20] LABS: Prothrombin Time Whole Bld POC 30.3 sec (11.1-13.5); ~PT, ~INR - Anti Coag Clinic 2.5 (0.9-1.1)
--- NOTE | 2023-11-28 14:24 | MHC.OFFVISCO ---
Intake Intake Visit Reasons: Anticoagulation Allergies red dye [Red Dye] Allergy (Severe, Verified 11/28/23 14:09) HIVES,THROAT CLOSES FROM RED FOOD DYE tape Adverse Reaction (Intermediate, Uncoded 11/28/23 14:09) Redness of Skin Medication List - Last Reconciled 11/28/23 by Marybeth Timmons, RN albuterol sulfate 90 mcg/actuation 180 mcg inhalation Q6H PRN atorvastatin 40 mg PO DAILY blood sugar diagnostic (FreeStyle Lite Strips) As directed check sugar twice a day before meals blood-glucose meter (FreeStyle Lite Meter kit) As directed bumetanide 3 mg PO Q2D@0900 bumetanide 2 mg twice daily alternating with 3 mg twice daily, as before carvedilol 6.25 mg PO BID 90 days clotrimazole 1% (Athlete's Foot (clotrimazole)) 1 appl topical BID 4 weeks dulaglutide (Trulicity) 3 mg subcut FR@0900 flash glucose scanning reader ([employer] Tabatha 2 [place]) As directed flash glucose sensor (FreeStyle Tabatha 2 Sensor kit) As directed change every 14 days insulin lispro (Humalog Tempo Pen (U-100) Insulin) 16 units subcut TID insulin syringe-needle U-100 (BD Veo Insulin Syringe Ultra-Fine) As directed twice a day lancets (FreeStyle Lancets) As directed losartan 25 mg PO DAILY nystatin (Nystop) 1 appl topical BID PRN pen needle, diabetic (BD Ultra-Fine Short Pen Needle) USE 4 times a day Saccharomyces boulardii (Digest Probiotic (S.boulardii)) PO [scale-accommodate weight 300 lbs As directed] spironolactone 25 mg PO DAILY warfarin 5 mg See Protocol PO SUMOTUTHFRSA@1800 Nursing Note INR: 2.5 in therapeutic range Medications and supplements reviewed No changes in health, diet, medications, or supplements, Denies any signs and symptoms of bleeding or bruising or clotting. Bleeding, bruising, clotting discussed Nutritional guidance given - Resume weekly greens - eat a mix of fruits and vegetables Dose: 2.5mg x 2 days/ 5mg x 5 days F/U INR: 2 weeks Patient verbalizes understanding of instructions given Anti-Coag Initial Assessment Social Hx Patient Tobacco Use Status: Never used Tobacco alcohol intake: never Alcohol intake frequency: does not drink Cardiovascular Hx: HTN, Angina, CAD, CHF, Arrhythmias, Varicose Veins and Other Lung Disease HX: Asthma Endocrine Hx: Diabetes Musculoskeletal Hx: Arthritis Blood Disorder Hx: Hyperlipidemia GI Hx: Ulcers, Bleeding (GI, rectal) and Other Hx: Kidney Disease Neurological Hx: Serious Head Injury and Migraines/Headaches 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 ) Psych. Illness/Depression: No Coding Level of Care Code Est Patient Level 1 Diagnoses Current use of anticoagulant therapy Z79.01 Assessment & Plan Assessment & Plan (1) Current use of anticoagulant therapy: Code(s): Z79.01 - group home (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 of anticoagulants Category: Medical
== END 2023-11-28 14:26 | disposition home or self-care (01) ==
LOC: HO.ACS 13:59
PROVIDERS: PCP Internal Medicine; Visit Provider Internal Medicine
DX: Z79.01 Long term (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 of anticoagulants (principal)

== ENCOUNTER → 2023-11-28 13:59 | Outpatient (BNVA) | payer MEDICARE, SELFPAY | PROVIDERS: PCP Internal Medicine; Visit Provider Internal Medicine | DX: I48.0 Paroxysmal atrial fibrillation (principal); Z79.01 Long term (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 of anticoagulants; Z51.81 Encounter for therapeutic drug level monitoring | CPT/HCPCS: 85610; 99211 ==

== ENCOUNTER 2023-12-03 10:27 | Outpatient (AMB) | payer MEDICARE, SELFPAY ==
[2023-12-03 10:28] VITALS: BP 110/64; PULSE 68; BMI 40.2
--- NOTE | 2023-12-03 10:28 | MHC.OFFVIS ---
Vital Signs 12/03/23 10:28 Height 5 ft 4 in Weight 234 lb 2.095 oz BMI 40.2 BP 110/64 Blood Pressure Location Rt brachial Position Sitting Pulse 68 Pulse Source Pulse Oximeter Intake Visit Reasons: 4m follow up Intake Note: 4 mth f/up Filler Shredding Machine Loader Required: No Accompanied by: Self / Same As Patient Allergies red dye [Red Dye] Allergy (Severe, Verified 11/28/23 14:09) HIVES,THROAT CLOSES FROM RED FOOD DYE tape Adverse Reaction (Intermediate, Uncoded 11/28/23 14:09) Redness of Skin Medication List - Last Reconciled 12/03/23 by Cesar Storey MD albuterol sulfate 90 mcg/actuation 180 mcg inhalation Q6H PRN atorvastatin 40 mg PO DAILY blood sugar diagnostic (FreeStyle Lite Strips) As directed check sugar twice a day before meals blood-glucose meter (FreeStyle Lite Meter kit) As directed bumetanide 3 mg PO Q2D@0900 bumetanide 2 mg twice daily alternating with 3 mg twice daily, as before carvedilol 6.25 mg PO BID 90 days clotrimazole 1% (Athlete's Foot (clotrimazole)) 1 appl topical BID 4 weeks dulaglutide (Trulicity) 3 mg subcut FR@0900 flash glucose scanning reader ([employer] Tabatha 2 [place]) As directed flash glucose sensor (FreeStyle Tabatha 2 Sensor kit) As directed change every 14 days insulin lispro (Humalog Tempo Pen (U-100) Insulin) 16 units subcut TID insulin syringe-needle U-100 (BD Veo Insulin Syringe Ultra-Fine) As directed twice a day lancets (FreeStyle Lancets) As directed losartan 25 mg PO DAILY nystatin (Nystop) 1 appl topical BID PRN pen needle, diabetic (BD Ultra-Fine Short Pen Needle) USE 4 times a day Saccharomyces boulardii (Digest Probiotic (S.boulardii)) PO [scale-accommodate weight 300 lbs As directed] spironolactone 25 mg PO DAILY warfarin 5 mg See Protocol PO SUMOTUTHFRSA@1800 HPI Comments Details: 68-year-old female with 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 She previously had atrial fibrillation for which she underwent cardioversion was started on amiodarone. She had successful cardioversion but unfortunately developed AFib again. She was brought back and cardioverted but later developed 2-1 atrial tachycardia/flutter. She was discharged home medication with a plan to let her be loaded with amiodarone and to re-attempt cardioversion. Unfortunately she developed significant heart failure volume overload and was readmitted to the hospital. She underwent diuresis in the hospital with medication adjustment and eventually underwent cardioversion and has been in sinus rhythm since then. Her blood pressure was low in the hospital and some of her medications were held including valsartan and carvedilol. It appears she was supposed to be on torsemide but when she was discharged home she was put back on her old drug Bumex 2 mg b.i.d.. She also continues to take carvedilol 6.25 mg twice a day along with amiodarone and spironolactone 25 mg once a day. She is here for follow-up. She is denying any significant shortness of breath. She has some fatigue and peripheral edema. She is saying she sleeps on couple of pillows and has not tried to lay flat in bed. She has not been monitoring her weight at home because she does not have a scale at home but at different office visits she felt that her fate was stable. Since May she has gained approximately 7 lb. Repeat echocardiography has shown EF of 30 35%. She is still has LV dilation but ejection fraction is improving. : She returns for follow-up. She is saying she has been doing fine. No chest discomfort or significant shortness of breath. Blood pressure control is good. She is saying off and on she notices swelling in her legs. She is taking 2 mg Bumex twice a day alternating with 3 mg of Bumex twice a day. She has not been laying down flat in bed because she gets significant orthopnea. She also has daytime somnolence and snoring. She did not have sleep study in the past. Continues to be in sinus rhythm but has left bundle-branch block with QRS duration of 154 milliseconds. 12/03/2023: She is here for follow-up. She has been following with our nurse practitioner in the interim. She had ablation done at [facility] and now also has PLASTIC ROLLER D. She has been doing well and doing quite good from cardiovascular viewpoint. No shortness of breath or orthopnea. Off and on she gets some lower extremity edema but overall has been quite stable with Bumex 2 mg b.i.d. and 3 mg b.i.d. on alternate days. No chest discomfort. She is on losartan 25 and spironolactone. Blood pressure is well controlled. Last echocardiography has shown EF of 25-30% in 09/2023. [facility] Medical History Cardiac resynchronization therapy defibrillator (PLASTIC ROLLER-D) in place History of COVID-19 Paroxysmal atrial fibrillation CHF (congestive heart failure) Left bundle branch block History of uterine cancer Personal history of malignant neoplasm of other parts of uterus Tinea pedis History of cardioversion Cardiomyopathy Coronary arteriosclerosis Ischemic cardiomyopathy Colonoscopy refused Incomplete left bundle branch block (LBBB) Post-menopausal bleeding Type 2 diabetes mellitus with hyperglycemia, with long-term current use of insulin Vitamin D deficiency Mixed dyslipidemia Papanicolaou smear declined Mammogram declined Osteoarthritis, knee Diabetic neuropathy History of esophagitis Mild intermittent asthma History of basal cell carcinoma Osteonecrosis of right hip Hiatal hernia History of cholelithiasis Morbid obesity Essential hypertension Type 2 diabetes mellitus with hyperglycemia, without long-term current use of insulin Irritable bowel syndrome (IBS) Surgical History S/P CLARE-BSO (total abdominal hysterectomy and bilateral salpingo-oophorectomy) S/P cardiac catheterization History of hysterectomy H/O hernia repair Hx of section History of hip surgery Hx of colonoscopy History of cholecystectomy Family History Father Myocardial infarction Cardiovascular disease Mother Diabetes mellitus Essential hypertension Daughter Anxiety disorder Mental health disorder Son Mental health disorder Social History Household Members: Spouse and Children Housing: House Are you a primary medical care administrator to a significant other at home: No Do you presently have visiting nurse or other home services: No Alcohol intake: never Comment: pt refuses alarms Patient Tobacco Use Status: Never used Tobacco e-Cigarette/Vaping Use: Never Used Second Hand Smoke Exposure: No Advance Directives Date on File: 04/08/22 service: No Current occupational status: retired Current occupational exposures/hazards: No Cognitive needs: No Hearing needs: No Vision needs: Yes Review of Systems Const Denies chills, Denies fatigue, Denies fever(s), Denies frequent falls, Denies weakness, Denies weight gain and Denies weight loss ENT Denies dizziness Card Denies chest pain, Denies leg edema, Denies lightheadedness, Denies palpitations, Denies dyspnea and Denies dyspnea on exertion Resp Denies cough, Denies dyspnea and Denies dyspnea on exertion GI Denies hematochezia Musc Denies abnormal gait, Denies muscle weakness, Denies numbness, Denies radiating pain into limb and Denies tingling Neuro Denies abnormal gait, Denies dizziness, Denies frequent falls, Denies numbness, Denies tingling and Denies weakness Endo Denies fatigue and Denies palpitations Physical Exam Vital Signs: Last Vital Signs Pulse 68 12/03/23 10:28 BP 110/64 12/03/23 10:28 BMI result Body Mass Index 40.2 GENERAL APPEARANCE: In no acute distress. NECK: no carotid bruit, no JVD. SKIN: no suspicious lesions, warm and dry. HEART: no murmurs, regular rate and rhythm. LUNGS: Clear to auscultation. ABDOMEN: soft, nontender. EXTREMITIES: 1+ edema. PERIPHERAL PULSES: equal. NEUROLOGIC: No gross deficits, AAO X 3 Assessment & Plan Assessment & Plan (1) Cardiac resynchronization therapy defibrillator (PLASTIC ROLLER-D) in place: Comment: [employer] implanted 07/25/2023 Code(s): Z95.810 - Presence of automatic (implantable) cardiac defibrillator Category: Medical (2) Paroxysmal atrial fibrillation: Code(s): I48.0 - Paroxysmal atrial fibrillation Category: Medical (3) HFrEF (heart failure with reduced ejection fraction): Code(s): I50.20 - Unspecified systolic (congestive) heart failure Category: Medical (4) CKD (chronic kidney disease) stage 3, GFR 30-59 ml/min: Code(s): N18.30 - Chronic kidney disease, stage 3 unspecified Category: Medical Qualifiers: Chronic kidney disease stage 3 subtype: unspecified whether 3a or 3b Qualified Code(s): N18.30 - Chronic kidney disease, stage 3 unspecified Plan [age] year female who is here for follow-up. She has known history of cardiomyopathy which is more nonischemic then ischemic. She does have underlying coronary disease. Mostly presentations were in the setting of atrial arrhythmia with worsening ejection fractions. She was cardioverted a few times in the past and was on amiodarone and eventually underwent ablation at [facility]. She is now status post PLASTIC ROLLER-D. She had at least moderate coronary disease previously but did not have any anginal symptoms and mostly presentations were clearly tachycardia related. She has been doing well. Blood pressure is well controlled. She is fairly euvolemic with the current Bumex dosing. We will arrange echocardiography for her in 3 months and she will follow-up with us after that. So far EF is 25-30% which is marginally better than before. Thank you for allowing me to participate in the care of your patient. Please feel free to contact me if you have any questions. Orders: Orders CA echo transthorac w con 3 Months I50.20 - Unspecified systolic (congestive) heart failure Coding Level of Care Code Est Pt Level 4 (87787) Diagnoses Cardiac resynchronization therapy defibrillator (PLASTIC ROLLER-D) in place Z95.810 Paroxysmal atrial fibrillation I48.0 HFrEF (heart failure with reduced ejection fraction) I50.20 Stage 3 chronic kidney disease, unspecified whether stage 3a or 3b CKD N18.30 Chronic kidney disease stage 3 subtype: unspecified whether 3a or 3b
== END 2023-12-03 11:01 | disposition home or self-care (01) ==
PROVIDERS: PCP Internal Medicine; Visit Provider Internal Medicine Cardiovascular Disease
DX: Z95.810 Presence of automatic (implantable) cardiac defibrillator (principal); I48.0 Paroxysmal atrial fibrillation; I50.20 Unspecified systolic (congestive) heart failure; N18.30 Chronic kidney disease, stage 3 unspecified
CPT/HCPCS: 99214

== ENCOUNTER → 2023-12-03 10:27 | Outpatient (BNVA) | payer MEDICARE, SELFPAY | PROVIDERS: PCP Internal Medicine; Visit Provider Internal Medicine Cardiovascular Disease | DX: I48.0 Paroxysmal atrial fibrillation (principal); I50.20 Unspecified systolic (congestive) heart failure; N18.30 Chronic kidney disease, stage 3 unspecified; Z95.810 Presence of automatic (implantable) cardiac defibrillator | CPT/HCPCS: 99212 ==

== ENCOUNTER 2023-12-04 10:02 | Outpatient (AMB) | payer MEDICARE, SELFPAY ==
[2023-12-04 10:06] VITALS: BP 128/62; PULSE 66; O2SAT 99; BMI 39.8
--- NOTE | 2023-12-04 10:06 | HO.NEPHOV ---
Vital Signs 12/04/23 10:06 Height 5 ft 4 in Weight 232 lb BMI 39.8 BP 128/62 Blood Pressure Location Rt brachial Position Sitting Pulse 66 Pulse Source Pulse Oximeter Pulse Oximetry (%) 99 Oxygen Delivery Method Room Air Intake Visit Reasons: CKD STG 3/ Conf Psychology Associate Required: No Accompanied by: Self / Same As Patient Allergies red dye [Red Dye] Allergy (Severe, Verified 12/04/23 10:08) HIVES,THROAT CLOSES FROM RED FOOD DYE tape Adverse Reaction (Intermediate, Uncoded 11/28/23 14:09) Redness of Skin Medication List - Last Reconciled 12/04/23 by Vikash Malin MD albuterol sulfate 90 mcg/actuation 180 mcg inhalation Q6H PRN atorvastatin 40 mg PO DAILY blood sugar diagnostic (FreeStyle Lite Strips) As directed check sugar twice a day before meals blood-glucose meter (FreeStyle Lite Meter kit) As directed bumetanide 3 mg PO Q2D@0900 bumetanide 2 mg twice daily alternating with 3 mg twice daily, as before carvedilol 6.25 mg PO BID 90 days clotrimazole 1% (Athlete's Foot (clotrimazole)) 1 appl topical BID 4 weeks dulaglutide (Trulicity) 3 mg subcut FR@0900 flash glucose scanning reader ([employer] Tabatha 2 [place]) As directed flash glucose sensor (FreeStyle Tabatha 2 Sensor kit) As directed change every 14 days insulin lispro (Humalog Tempo Pen (U-100) Insulin) 16 units subcut TID insulin syringe-needle U-100 (BD Veo Insulin Syringe Ultra-Fine) As directed twice a day lancets (FreeStyle Lancets) As directed losartan 25 mg PO DAILY nystatin (Nystop) 1 appl topical BID PRN pen needle, diabetic (BD Ultra-Fine Short Pen Needle) USE 4 times a day Saccharomyces boulardii (Digest Probiotic (S.boulardii)) PO PRN [scale-accommodate weight 300 lbs As directed] spironolactone 25 mg PO DAILY warfarin 5 mg See Protocol PO SUMOTUTHFRSA@1800 HPI Comments Details: July is a pleasant 68 woman with a history of longstanding diabetes mellitus hypertension and coronary disease with chronic disease. Baseline serum creatinine is around 1.6 mg/dL. She was previously seen in 2022 during her hospitalization for acute kidney injury due to cardiorenal syndrome. At present renal function remained stable with a creatinine 1.6 mg/dL. Blood sugars have been suboptimal. [facility] Medical History Cardiac resynchronization therapy defibrillator ([employer]-D) in place History of COVID-19 Paroxysmal atrial fibrillation CHF (congestive heart failure) Left bundle branch block History of uterine cancer Personal history of malignant neoplasm of other parts of uterus Tinea pedis History of cardioversion Cardiomyopathy Coronary arteriosclerosis Ischemic cardiomyopathy Colonoscopy refused Incomplete left bundle branch block (LBBB) Post-menopausal bleeding Type 2 diabetes mellitus with hyperglycemia, with long-term current use of insulin Vitamin D deficiency Mixed dyslipidemia Papanicolaou smear declined Mammogram declined Osteoarthritis, knee Diabetic neuropathy History of esophagitis Mild intermittent asthma History of basal cell carcinoma Osteonecrosis of right hip Hiatal hernia History of cholelithiasis Morbid obesity Essential hypertension Type 2 diabetes mellitus with hyperglycemia, without long-term current use of insulin Irritable bowel syndrome (IBS) Surgical History S/P CLARE-BSO (total abdominal hysterectomy and bilateral salpingo-oophorectomy) S/P cardiac catheterization History of hysterectomy H/O hernia repair Hx of section History of hip surgery Hx of colonoscopy History of cholecystectomy Family History Father Myocardial infarction Cardiovascular disease Mother Diabetes mellitus Essential hypertension Daughter Anxiety disorder Mental health disorder Son Mental health disorder Social History Household Members: Spouse and Children Housing: House Are you a primary patient care representative to a significant other at home: No Do you presently have visiting nurse or other home services: No Alcohol intake: never Comment: pt refuses alarms Patient Tobacco Use Status: Never used Tobacco e-Cigarette/Vaping Use: Never Used Second Hand Smoke Exposure: No Advance Directives Date on File: 04/08/22 service: No Current occupational status: retired Current occupational exposures/hazards: No Cognitive needs: No Hearing needs: No Vision needs: Yes Review of Systems Const Denies fever(s) and Denies weight loss Card Denies chest pain Resp Denies cough and Denies hemoptysis GI Denies abdominal pain, Denies diarrhea and Denies nausea Musc Denies back pain Neuro Denies focal weakness Physical Exam Vital Signs: Last Vital Signs Pulse 66 12/04/23 10:06 BP 128/62 12/04/23 10:06 Pulse Ox 99 12/04/23 10:06 Oxygen Delivery Method Room Air 12/04/23 10:06 BMI result Body Mass Index 39.8 Neck Neck: Yes supple Resp Auscultation: clear to auscultation bilaterally Cardio Palpation: no palpable S3 Heart sounds: no rubs GI Palpation (GI): Soft to palpation Auscultation: normal bowel sounds Neuro Motor exam (neuro): no asterixis Results Reviewed Results Reviewed: All labs were reviewed Nephrology Results: No Data to Display Assessment & Plan Assessment & Plan (1) CKD (chronic kidney disease) stage 3, GFR 30-59 ml/min: Code(s): N18.30 - Chronic kidney disease, stage 3 unspecified Category: Medical Qualifiers: Chronic kidney disease stage 3 subtype: unspecified whether 3a or 3b Qualified Code(s): N18.30 - Chronic kidney disease, stage 3 unspecified Plan 68-year-old woman with a history of chronic kidney disease setting of longstanding diabetes mellitus hypertension. She on has underlying diabetes to current disease. He has a congestive heart failure. She appears well compensated at this time. Goal is to slow the progression of renal disease. Stay on low-sodium diet Continue current antihypertensive medications and diuretics. Continue overt nephrotoxic agents. Obtain renal ultrasonogram g to assess echogenicity and to rule out hydronephrosis Monitor urine protein excretion. We will screen for secondary hyperparathyroidism Orders: Orders US renal BI Today N18.30 - Chronic kidney disease, stage 3 unspecified Creatinine Urine Today N18.30 - Chronic kidney disease, stage 3 unspecified Total Protein Urine Random Today N18.30 - Chronic kidney disease, stage 3 unspecified Phosphorus Today N18.30 - Chronic kidney disease, stage 3 unspecified Complete Blood Count Auto Diff Today N18.30 - Chronic kidney disease, stage 3 unspecified Comprehensive Met. Panel Today N18.30 - Chronic kidney disease, stage 3 unspecified UA and rflx microscopic Today N18.30 - Chronic kidney disease, stage 3 unspecified Parathyroid Hormone Related Pr Today N18.30 - Chronic kidney disease, stage 3 unspecified Medications: New cholecalciferol (vitamin D3) 25 mcg PO DAILY 100 caps 0RF Coding Level of Care Code New Pt Level 4 (23330) Diagnoses Stage 3 chronic kidney disease, unspecified whether stage 3a or 3b CKD N18.30 Chronic kidney disease stage 3 subtype: unspecified whether 3a or 3b
== END 2023-12-04 11:16 | disposition home or self-care (01) ==
PROVIDERS: PCP Internal Medicine; Referring Provider Internal Medicine; Visit Provider Internal Medicine Hypertension Specialist
DX: I13.0 Hypertensive heart and chronic kidney disease with heart failure and stage 1 through stage 4 chronic kidney disease, or unspecified chronic kidney disease (principal); I50.9 Heart failure, unspecified; E11.22 Type 2 diabetes mellitus with diabetic chronic kidney disease; N18.30 Chronic kidney disease, stage 3 unspecified
CPT/HCPCS: 99204

== ENCOUNTER → 2023-12-04 10:02 | Outpatient (BNVA) | payer MEDICARE, SELFPAY | PROVIDERS: PCP Internal Medicine; Referring Provider Internal Medicine; Visit Provider Internal Medicine Hypertension Specialist | DX: N18.30 Chronic kidney disease, stage 3 unspecified (principal) | CPT/HCPCS: 99202 ==

== ENCOUNTER 2023-12-12 13:56 | Outpatient (AMB) | payer MEDICARE, SELFPAY ==
[2023-12-12 14:14] LABS: Prothrombin Time Whole Bld POC 26.5 sec (11.1-13.5); ~PT, ~INR - Anti Coag Clinic 2.2 (0.9-1.1)
--- NOTE | 2023-12-12 14:17 | MHC.OFFVISCO ---
Intake Intake Visit Reasons: Anticoagulation Allergies red dye [Red Dye] Allergy (Severe, Verified 12/12/23 14:05) HIVES,THROAT CLOSES FROM RED FOOD DYE tape Adverse Reaction (Intermediate, Uncoded 12/12/23 14:05) Redness of Skin Medication List - Last Reconciled 12/12/23 by Jeanna Suarez, RN albuterol sulfate 90 mcg/actuation 180 mcg inhalation Q6H PRN atorvastatin 40 mg PO DAILY blood sugar diagnostic (FreeStyle Lite Strips) As directed check sugar twice a day before meals blood-glucose meter (FreeStyle Lite Meter kit) As directed bumetanide 3 mg PO Q2D@0900 bumetanide 2 mg twice daily alternating with 3 mg twice daily, as before carvedilol 6.25 mg PO BID 90 days cholecalciferol (vitamin D3) 25 mcg PO DAILY cholecalciferol (vitamin D3) 25 mcg PO DAILY clotrimazole 1% (Athlete's Foot (clotrimazole)) 1 appl topical BID 4 weeks dulaglutide (Trulicity) 3 mg subcut FR@0900 flash glucose scanning reader ([employer] Tabatha 2 [place]) As directed flash glucose sensor (FreeStyle Tabatha 2 Sensor kit) As directed change every 14 days insulin lispro (Humalog Tempo Pen (U-100) Insulin) 16 units subcut TID insulin syringe-needle U-100 (BD Veo Insulin Syringe Ultra-Fine) As directed twice a day lancets (FreeStyle Lancets) As directed losartan 25 mg PO DAILY nystatin (Nystop) 1 appl topical BID PRN pen needle, diabetic (BD Ultra-Fine Short Pen Needle) USE 4 times a day Saccharomyces boulardii (Digest Probiotic (S.boulardii)) PO PRN [scale-accommodate weight 300 lbs As directed] spironolactone 25 mg PO DAILY warfarin 5 mg See Protocol PO SUMOTUTHFRSA@1800 Nursing Note Pt to ACS with use of a cane. INR: 2.2 in therapeutic range 2-3 Medications and supplements reviewed No changes in health, diet, medications, or supplements, Denies any signs and symptoms of bleeding or bruising or clotting. Bleeding, bruising, clotting discussed Nutritional guidance given Dose: 5mg X 5 days and 2.5mg X 2 days F/U INR: 2 weeks Patient verbalizes understanding of instructions given Anti-Coag Initial Assessment Social Hx Patient Tobacco Use Status: Never used Tobacco alcohol intake: never Alcohol intake frequency: does not drink Cardiovascular Hx: HTN, Angina, CAD, CHF, Arrhythmias, Varicose Veins and Other Lung Disease HX: Asthma Endocrine Hx: Diabetes Musculoskeletal Hx: Arthritis Blood Disorder Hx: Hyperlipidemia GI Hx: Ulcers, Bleeding (GI, rectal) and Other Hx: Kidney Disease Neurological Hx: Serious Head Injury and Migraines/Headaches 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 ) Psych. Illness/Depression: No Coding Level of Care Code Est Patient Level 1 Diagnoses Current use of anticoagulant therapy Z79.01 Results AMB INR Fingerstick AMB INR Fingerstick 2.2 Last Edit by Jeanna Suarez RN on 12/12/23 14:14 interface delay Assessment & Plan Assessment & Plan (1) Current use of anticoagulant therapy: Code(s): Z79.01 - technician terminal and repeater (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 of anticoagulants Category: Medical
== END 2023-12-12 14:21 | disposition home or self-care (01) ==
LOC: HO.ACS 13:56
PROVIDERS: PCP Internal Medicine; Visit Provider Internal Medicine
DX: Z79.01 Long term (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 of anticoagulants (principal)

== ENCOUNTER → 2023-12-12 13:56 | Outpatient (BNVA) | payer MEDICARE, SELFPAY | PROVIDERS: PCP Internal Medicine; Visit Provider Internal Medicine | DX: I48.0 Paroxysmal atrial fibrillation (principal); Z79.01 Long term (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 of anticoagulants; Z51.81 Encounter for therapeutic drug level monitoring | CPT/HCPCS: 85610; 99211 ==

== ENCOUNTER 2023-12-26 13:56 | Outpatient (AMB) | payer MEDICARE, SELFPAY ==
[2023-12-26 14:16] LABS: Prothrombin Time Whole Bld POC 26.1 sec (11.1-13.5); ~PT, ~INR - Anti Coag Clinic 2.2 (0.9-1.1)
--- NOTE | 2023-12-26 14:18 | MHC.OFFVISCO ---
Intake Intake Visit Reasons: Anticoagulation Allergies red dye [Red Dye] Allergy (Severe, Verified 12/26/23 14:11) HIVES,THROAT CLOSES FROM RED FOOD DYE tape Adverse Reaction (Intermediate, Uncoded 12/26/23 14:11) Redness of Skin Medication List - Last Reconciled 12/26/23 by Jeanna Suarez, RN albuterol sulfate 90 mcg/actuation 180 mcg inhalation Q6H PRN atorvastatin 40 mg PO DAILY blood sugar diagnostic (FreeStyle Lite Strips) As directed check sugar twice a day before meals blood-glucose meter (FreeStyle Lite Meter kit) As directed bumetanide 3 mg PO Q2D@0900 bumetanide 2 mg twice daily alternating with 3 mg twice daily, as before carvedilol 6.25 mg PO BID 90 days cholecalciferol (vitamin D3) 25 mcg PO DAILY cholecalciferol (vitamin D3) 25 mcg PO DAILY clotrimazole 1% (Athlete's Foot (clotrimazole)) 1 appl topical BID 4 weeks dulaglutide (Trulicity) 3 mg subcut FR@0900 flash glucose scanning reader (VettroStyle Tabatha 2 [place]) As directed flash glucose sensor (FreeStyle Tabatha 2 Sensor kit) As directed change every 14 days insulin lispro (Humalog Tempo Pen (U-100) Insulin) 16 units subcut TID insulin syringe-needle U-100 (BD Veo Insulin Syringe Ultra-Fine) As directed twice a day lancets (FreeStyle Lancets) As directed losartan 25 mg PO DAILY nystatin (Nystop) 1 appl topical BID PRN pen needle, diabetic (BD Ultra-Fine Short Pen Needle) USE 4 times a day Saccharomyces boulardii (Digest Probiotic (S.boulardii)) PO PRN [scale-accommodate weight 300 lbs As directed] spironolactone 25 mg PO DAILY warfarin 5 mg See Protocol PO SUMOTUTHFRSA@1800 Nursing Note INR: 2.2 in therapeutic range of 2-3 Medications and supplements reviewed No changes in health, diet, medications, or supplements, Denies any signs and symptoms of bleeding or bruising or clotting. Bleeding, bruising, clotting discussed Nutritional guidance given Dose: 5mg X 5 days and 2.5mg X 2 days F/U INR: 2 weeks Patient verbalizes understanding of instructions given Anti-Coag Initial Assessment Social Hx Patient Tobacco Use Status: Never used Tobacco alcohol intake: never Alcohol intake frequency: does not drink Cardiovascular Hx: HTN, Angina, CAD, CHF, Arrhythmias, Varicose Veins and Other Lung Disease HX: Asthma Endocrine Hx: Diabetes Musculoskeletal Hx: Arthritis Blood Disorder Hx: Hyperlipidemia GI Hx: Ulcers, Bleeding (GI, rectal) and Other Hx: Kidney Disease Neurological Hx: Serious Head Injury and Migraines/Headaches 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 ) Psych. Illness/Depression: No Coding Level of Care Code Est Patient Level 1 Diagnoses Current use of anticoagulant therapy Z79.01 Assessment & Plan Assessment & Plan (1) Current use of anticoagulant therapy: Code(s): Z79.01 - care home (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 of anticoagulants Category: Medical
== END 2023-12-26 14:36 | disposition home or self-care (01) ==
LOC: HO.ACS 13:56
PROVIDERS: PCP Internal Medicine; Visit Provider Internal Medicine
DX: Z79.01 Long term (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 of anticoagulants (principal)

== ENCOUNTER → 2023-12-26 13:56 | Outpatient (BNVA) | payer MEDICARE, SELFPAY | PROVIDERS: PCP Internal Medicine; Visit Provider Internal Medicine | DX: I48.0 Paroxysmal atrial fibrillation (principal); Z79.01 Long term (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 of anticoagulants; Z51.81 Encounter for therapeutic drug level monitoring | CPT/HCPCS: 85610; 99211 ==

== ENCOUNTER 2024-01-09 13:09 | Outpatient (AMB) | payer MEDICARE, SELFPAY ==
--- NOTE | 2024-01-09 13:19 | A.OFFVIS_ITS ---
Vital Signs 01/09/24 13:22 Height 5 ft 4 in Weight 240 lb 4.862 oz BMI 41.2 BP 132/78 Blood Pressure Location Rt brachial Position Sitting Pulse 86 Pulse Source Pulse Oximeter Intake Visit Reasons: T2DM/lvm Intake Note: Patient presents today to re-establish treatment for Type 2 Diabetes Mellitus: Last Diabetic eye exam was on: DUE Last Podiatry exam was on: Does not see a Pastoral Ministries Professor Most recent HbA1c: 8.8%, 01/09/2024 Random Glucose- 150 mg/dL, Today Facepiece Line Supervisor Required: No Accompanied by: Self / Same As Patient Allergies red dye [Red Dye] Allergy (Severe, Verified 01/09/24 14:30) HIVES,THROAT CLOSES FROM RED FOOD DYE tape Adverse Reaction (Intermediate, Uncoded 01/09/24 14:30) Redness of Skin HPI Comments Details: This is a 68-year-old female with a past medical history of PAD, paroxysmal atrial fibrillation, CAD, chronic anticoagulation, CKD stage 3, heart failure with reduced ejection fraction, type 2 diabetes, hypertension and hyperlipidemia presenting for diabetic management. She was last seen in the endocrinology department on 08/21/[address] Cortez. Her hemoglobin A1c is 8.8% today. Current regimen is insulin NPH 21 units twice daily (insurance does not cover alternatives), Humalog 15 units 3 times daily with meals and Trulicity 3 mg weekly. She denies side effects on the regimen. She notices steadier blood sugars since starting NPH. CGM download for 12/27/2023 through 01/09/2024 reviewed: CGM active 75% Average glucose 207 GMI 8.3% Glucose variability 21.9% Very high 19% High 50% Target 31% Low/very low 0% She has steady hyperglycemia throughout the 24 hour period with small spikes around noon time and 10pm. Microvascular complications: Nephropathy (CKD), neuropathy Macrovascular complications: PAD, CAD Eye exam is up-to-date. She does not have a diesel technology instructor, and diabetic foot care is becoming more difficult. She saw Dr. Gannon for PAD evaluation. Ultrasounds ordered, but she was hospitalized and did not follow up after that. Her feet are always cold and swollen. She is on diuretics. ROS: Constitutional: No unexplained weight loss, fever, chills, fatigue or night sweats. Eyes: No vision changes Respiratory: No shortness of breath Cardiovascular: No chest pain Gastrointestinal: No abdominal pain Neurologic: No headache, dizziness, syncope Skin: No open wounds. Physical exam: Constitutional: Alert, in no distress. Eyes: Pupils are equal, round and reactive to light. Extraocular muscles intact.. Neck: Supple, Full range of motion. No lymphadenopathy. No palpable thyroid masses. Respiratory: Clear to auscultation. Cardiovascular: S1 S2 regular. No murmurs. Right foot: Toes are cool and mottled. 2+ edema. DP pulse 1+. Decreased vibratory sensation. Decreased sensation to monofilament of the great toe. Xerosis of skin. Nails overgrown. No open wounds. Left foot: Toes are cool and mottled. 2+ edema. DP pulse 1+. Decreased vibratory sensation. Decreased sensation to monofilament of the great and 2nd toe. Xerosis of skin. Nails overgrown. No open wounds. [facility] Medical History (Updated 01/09/24 @ 15:13 by ROBBIE Rangel) Diabetic neuropathy Cardiac resynchronization therapy defibrillator (CHIEF TECHNOLOGY OFFICER-D) in place History of COVID-19 Paroxysmal atrial fibrillation CHF (congestive heart failure) Left bundle branch block History of uterine cancer Personal history of malignant neoplasm of other parts of uterus Tinea pedis History of cardioversion Cardiomyopathy Coronary arteriosclerosis Ischemic cardiomyopathy Colonoscopy refused Incomplete left bundle branch block (LBBB) Post-menopausal bleeding Type 2 diabetes mellitus with hyperglycemia, with long-term current use of insulin Vitamin D deficiency Mixed dyslipidemia Papanicolaou smear declined Mammogram declined Osteoarthritis, knee Diabetic neuropathy History of esophagitis Mild intermittent asthma History of basal cell carcinoma Osteonecrosis of right hip Hiatal hernia History of cholelithiasis Morbid obesity Essential hypertension Type 2 diabetes mellitus with hyperglycemia, without long-term current use of insulin Irritable bowel syndrome (IBS) Surgical History S/P CLARE-BSO (total abdominal hysterectomy and bilateral salpingo-oophorectomy) S/P cardiac catheterization History of hysterectomy H/O hernia repair Hx of section History of hip surgery Hx of colonoscopy History of cholecystectomy Family History Father Myocardial infarction Cardiovascular disease Mother Diabetes mellitus Essential hypertension Daughter Anxiety disorder Mental health disorder Son Mental health disorder Social History Household Members: Spouse and Children Housing: House Are you a primary interior plant caretaker to a significant other at home: No Do you presently have visiting nurse or other home services: No Alcohol intake: never Comment: pt refuses alarms Patient Tobacco Use Status: Never used Tobacco e-Cigarette/Vaping Use: Never Used Second Hand Smoke Exposure: No Advance Directives Date on File: 04/08/22 service: No Current occupational status: retired Current occupational exposures/hazards: No Cognitive needs: No Hearing needs: No Vision needs: Yes Physical Exam Vital Signs: Last Vital Signs Pulse 86 01/09/24 13:22 BP 132/78 01/09/24 13:22 BMI result Body Mass Index 41.2 Results AMB Hemoglobin A1c AMB Hemoglobin A1c 8.8 % Last Edit by UVALDO Rucker on 01/09/24 13:42 AMB INR Fingerstick AMB INR Fingerstick 1.8 Last Edit by Marybeth Timmons RN on 01/09/24 14:35 manual entry Results Reviewed Results Reviewed: Laboratory Last Values Glucose (Clinic) 150 mg/dL (60-115) H 01/09/24 13:31 Hgb A1c (Clinic) 8.8 % (4.0-6.0) H 01/09/24 13:21 Laboratory Tests 09/21/21 08/21/23 09/08/23 13:14 13:06 14:35 Creatinine 1.61 H Estimated GFR 32 Hgb A1c (Clinic) 8.2 H Triglycerides 157 H Cholesterol 143 LDL Cholesterol, Calc 70 HDL Cholesterol 42 Urine Creatinine 56.63 Urine Microalbumin 11.0 Microalb/Creat Ratio 19.4 Assessment & Plan Assessment & Plan (1) Type 2 diabetes mellitus with hyperglycemia, with long-term current use of insulin: Code(s): E11.65 - Type 2 diabetes mellitus with hyperglycemia; Z79.4 - manager terminal (current) use of insulin Category: Medical (2) PAD (peripheral artery disease): Code(s): I73.9 - Peripheral vascular disease, unspecified Category: Medical (3) Diabetic neuropathy: Code(s): E11.40 - Type 2 diabetes mellitus with diabetic neuropathy, unspecified Category: Medical Qualifiers: Diabetes mellitus type: type 2 Diabetes mellitus complication detail: diabetic polyneuropathy Qualified Code(s): E11.42 - Type 2 diabetes mellitus with diabetic polyneuropathy Plan In summary this is a 68-year-old female with uncontrolled type 2 diabetes with micro and macrovascular complications on her current regimen. Increase NPH insulin to 23 units twice daily. Increase Trulicity to 4.5 mg weekly. Continue Humalog 15 units before meals. She is compliant with glucose monitoring and brings her sensor to appointments. Diabetic diet reviewed. Declines referral to diabetic education/dietitian at this time. Referred back to vascular surgery. Refer to diesel technology instructor for foot care. Follow up in 3 months for type 2 diabetes. Orders: Orders AMB Hemoglobin A1c Today E11.65 - Type 2 diabetes mellitus with hyperglycemia, Z79.4 - manager terminal (current) use of insulin Referrals Vascular Surgery Referral I73.9 - Peripheral vascular disease, unspecified Medications: New dulaglutide (Trulicity) 4.5 mg (0.5 mL) subcut QWEEK 2 mL 5RF insulin NPH isoph U-100 human (Novolin N FlexPen) 23 units (0.23 mL) subcut BID 15 mL 5RF Changed From insulin lispro (Humalog Tempo Pen (U-100) Insulin) 16 units (0.16 mL) subcut TID 15 mL 3RF To insulin lispro (Humalog Tempo Pen (U-100) Insulin) 15 units (0.15 mL) subcut TID 15 mL 5RF Coding Level of Care Code Est Pt Level 5 (36325) Complex EM visit Add On G2211 Diagnoses Type 2 diabetes mellitus with hyperglycemia, with long-term current use of insulin E11.65; Z79.4 PAD (peripheral artery disease) I73.9 Diabetic polyneuropathy associated with type 2 diabetes mellitus E11.42 Diabetes mellitus type: type 2 Diabetes mellitus complication detail: diabetic polyneuropathy Time Spent (min) 45 Comment Chart review, direct patient care, completing documentation
[2024-01-09 13:22] VITALS: BP 132/78; PULSE 86; BMI 41.2
[2024-01-09 13:37] LABS: Glucose, Whole Blood 150 mg/dL (60-115)
== END 2024-01-09 14:01 | disposition home or self-care (01) ==
PROVIDERS: PCP Internal Medicine; Visit Provider Physician Assistant Medical
DX: E11.65 Type 2 diabetes mellitus with hyperglycemia (principal); Z79.4 Long term (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 of insulin; I73.9 Peripheral vascular disease, unspecified; E11.42 Type 2 diabetes mellitus with diabetic polyneuropathy

== ENCOUNTER → 2024-01-09 13:09 | Outpatient (BNVA) | payer MEDICARE, SELFPAY | PROVIDERS: PCP Internal Medicine; Visit Provider Physician Assistant Medical | DX: E11.65 Type 2 diabetes mellitus with hyperglycemia (principal); E11.42 Type 2 diabetes mellitus with diabetic polyneuropathy; I73.9 Peripheral vascular disease, unspecified; Z79.4 Long term (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 of insulin; I48.0 Paroxysmal atrial fibrillation; Z79.01 Long term (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 of anticoagulants; Z51.81 Encounter for therapeutic drug level monitoring | CPT/HCPCS: 82947; 83036; 85610; 99211; 99212 ==

== ENCOUNTER 2024-01-09 14:29 | Outpatient (AMB) | payer MEDICARE, SELFPAY ==
[2024-01-09 14:36] LABS: ~PT, ~INR - Anti Coag Clinic 1.8 (0.9-1.1)
--- NOTE | 2024-01-09 14:42 | MHC.OFFVISCO ---
Intake Intake Visit Reasons: Anticoagulation Allergies red dye [Red Dye] Allergy (Severe, Verified 01/09/24 14:30) HIVES,THROAT CLOSES FROM RED FOOD DYE tape Adverse Reaction (Intermediate, Uncoded 01/09/24 14:30) Redness of Skin Medication List - Last Reconciled 01/09/24 by Marybeth Timmons RN albuterol sulfate 90 mcg/actuation 180 mcg inhalation Q6H PRN atorvastatin 40 mg PO DAILY blood sugar diagnostic (FreeStyle Lite Strips) As directed check sugar twice a day before meals blood-glucose meter (FreeStyle Lite Meter kit) As directed bumetanide 3 mg PO Q2D@0900 bumetanide 2 mg twice daily alternating with 3 mg twice daily, as before carvedilol 6.25 mg PO BID 90 days cholecalciferol (vitamin D3) 25 mcg PO DAILY cholecalciferol (vitamin D3) 25 mcg PO DAILY clotrimazole 1% (Athlete's Foot (clotrimazole)) 1 appl topical BID 4 weeks dulaglutide (Trulicity) 4.5 mg (0.5 mL) subcut QWEEK flash glucose scanning reader (SpaceFaceStyle Tabatha 2 [place]) As directed flash glucose sensor (FreeStyle Tabatha 2 Sensor kit) APPLY 1 SENSOR TOPICALLY, AND LEAVE IN PLACE FOR 14 DAYS, TO MONITOR BLOOD SUGAR DIRECTED BY THE DOCTOR. CHANGE SENSOR EVERY 14 DAYS. insulin lispro (Humalog Tempo Pen (U-100) Insulin) 15 units (0.15 mL) subcut TID insulin NPH isoph U-100 human (Novolin N FlexPen) 23 units (0.23 mL) subcut BID insulin syringe-needle U-100 (BD Veo Insulin Syringe Ultra-Fine) As directed twice a day lancets (FreeStyle Lancets) As directed losartan 25 mg PO DAILY nystatin (Nystop) 1 appl topical BID PRN pen needle, diabetic (BD Ultra-Fine Short Pen Needle) USE 4 times a day Saccharomyces boulardii (Digest Probiotic (S.boulardii)) PO PRN [scale-accommodate weight 300 lbs As directed] spironolactone 25 mg PO DAILY warfarin 5 mg See Protocol PO SUMOTUTHFRSA@1800 [wheelchair As directed] Nursing Note INR 1.8 out of therapeutic range Medications and supplements reviewed Patient status: missed 2.5mg yesterday and also resume novulin insulin - may be effecting the INR Medications or supplements: resumed insulin Diet: good Denies any signs and symptoms of bleeding or clotting or unusual bruising Bleeding, bruising, clotting discussed Nutritional guidance given: avoid greens x 3 days, eat foods to help raise the INR today or tomorrow Dose: 7.5mg today to make up dose then resume usual dose 2.5mg x 2 days/ 5mg x 5 days F/U INR Date : 2 weeks ? Patient verbalizing understanding of instructions given. 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 ) Psych. Illness/Depression: No Coding Level of Care Code Est Patient Level 1 Diagnoses Current use of anticoagulant therapy Z79.01 Results AMB Hemoglobin A1c AMB Hemoglobin A1c 8.8 % Last Edit by UVALDO Rucker on 01/09/24 13:42 AMB INR Fingerstick AMB INR Fingerstick 1.8 Last Edit by Marybeth Timmons RN on 01/09/24 14:35 manual entry Assessment & Plan Assessment & Plan (1) Current use of anticoagulant therapy: Code(s): Z79.01 - professor of food biochemistry (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 of anticoagulants Category: Medical
== END 2024-01-09 14:46 | disposition home or self-care (01) ==
LOC: HO.ACS 14:29
PROVIDERS: PCP Internal Medicine; Visit Provider Internal Medicine
DX: Z79.01 Long term (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 of anticoagulants (principal)

== ENCOUNTER 2024-01-21 10:59 | Outpatient (AMB) | payer MEDICARE, SELFPAY ==
--- NOTE | 2024-01-21 11:26 | A.OFFPC_ITS ---
Vital Signs 01/21/24 11:28 Height 5 ft 4 in Weight 237 lb BMI 40.7 BP 124/80 Blood Pressure Location Rt brachial Position Sitting Pulse 65 Pulse Source Pulse Oximeter Pulse Oximetry (%) 96 Oxygen Delivery Method Room Air Intake Visit Reasons: ANNUAL Intake Note: Pt is here today for her PE: Allergies red dye [Red Dye] Allergy (Severe, Verified 01/25/24 18:41) HIVES,THROAT CLOSES FROM RED FOOD DYE tape Adverse Reaction (Intermediate, Uncoded 01/25/24 18:41) Redness of Skin Medication List - Last Reconciled 01/21/24 by Lily Menjivar MD albuterol sulfate 90 mcg/actuation 180 mcg inhalation Q6H PRN atorvastatin 40 mg PO DAILY blood sugar diagnostic (FreeStyle Lite Strips) As directed check sugar twice a day before meals blood-glucose meter (FreeStyle Lite Meter kit) As directed bumetanide 3 mg PO Q2D@0900 bumetanide 2 mg twice daily alternating with 3 mg twice daily, as before carvedilol 6.25 mg PO BID 90 days cholecalciferol (vitamin D3) 25 mcg PO DAILY clotrimazole 1% (Athlete's Foot (clotrimazole)) 1 appl topical BID 4 weeks dulaglutide (Trulicity) 4.5 mg (0.5 mL) subcut QWEEK flash glucose scanning reader ([employer]idian [employer]Style Tabatha 2 [place]) As directed flash glucose sensor (FreeStyle Tabatha 2 Sensor kit) APPLY 1 SENSOR TOPICALLY, AND LEAVE IN PLACE FOR 14 DAYS, TO MONITOR BLOOD SUGAR DIRECTED BY THE DOCTOR. CHANGE SENSOR EVERY 14 DAYS. insulin lispro (Humalog Tempo Pen (U-100) Insulin) 15 units (0.15 mL) subcut TID insulin NPH isoph U-100 human (Novolin N FlexPen) 23 units (0.23 mL) subcut BID insulin syringe-needle U-100 (BD Veo Insulin Syringe Ultra-Fine) As directed twice a day lancets (FreeStyle Lancets) As directed losartan 25 mg PO DAILY nystatin (Nystop) 1 appl topical BID PRN pen needle, diabetic (BD Ultra-Fine Short Pen Needle) USE 4 times a day Saccharomyces boulardii (Digest Probiotic (S.boulardii)) PO PRN [scale-accommodate weight 300 lbs As directed] spironolactone 25 mg PO DAILY warfarin 5 mg See Protocol PO SUMOTUTHFRSA@1800 [wheelchair As directed] Tobacco use date assessed: 01/21/24 Fall risk assessment: 1 Fall in past year Last assessed Fall Risk: 01/21/24 Dental Screening Dental Screen Date: 01/21/24 Did you have a dental visit in the last 12 months?: No Did you have a dental problem in the last 6 months where you did not have access to dental care?: No Was dental information given to patient?: Patient declined HPI ANNUAL HPI Details 68-year-old lady with past medical histo ry significant for diabetes mellitus with neuropathy, paroxysmal atrial fibrillation currently on [facility], peripheral arterial disease, atherosclerotic heart disease, with history of heart failure, incomplete left bundle branch block, currently with defibrillator in place, chronic kidney disease stage III, osteoarthritis, history of uterine cancer status post TAHBSO mild intermittent asthma, hiatal hernia, here today for her physical exam. She has been refusing to to have pelvic exam with cervical cancer screening, declined getting any breast cancer screening . She had her 1st and last colonoscopy done in [address] Osorio, does not want to do further colon cancer screenings. [facility] Medical History Diabetic neuropathy Cardiac resynchronization therapy defibrillator (COGENERATION TECHNICIAN-D) in place History of COVID-19 Paroxysmal atrial fibrillation CHF (congestive heart failure) Left bundle branch block History of uterine cancer Personal history of malignant neoplasm of other parts of uterus Tinea pedis History of cardioversion Cardiomyopathy Coronary arteriosclerosis Ischemic cardiomyopathy Colonoscopy refused Incomplete left bundle branch block (LBBB) Post-menopausal bleeding Type 2 diabetes mellitus with hyperglycemia, with long-term current use of insulin Vitamin D deficiency Mixed dyslipidemia Papanicolaou smear declined Mammogram declined Osteoarthritis, knee Diabetic neuropathy History of esophagitis Mild intermittent asthma History of basal cell carcinoma Osteonecrosis of right hip Hiatal hernia History of cholelithiasis Morbid obesity Essential hypertension Type 2 diabetes mellitus with hyperglycemia, without long-term current use of insulin Irritable bowel syndrome (IBS) Surgical History S/P CLARE-BSO (total abdominal hysterectomy and bilateral salpingo-oophorectomy) S/P cardiac catheterization History of hysterectomy H/O hernia repair Hx of section History of hip surgery Hx of colonoscopy History of cholecystectomy Family History Father Myocardial infarction Cardiovascular disease Mother Diabetes mellitus Essential hypertension Daughter Anxiety disorder Mental health disorder Son Mental health disorder Social History Household Members: Spouse and Children Housing: House Are you a primary physician locums urgent care to a significant other at home: No Do you presently have visiting nurse or other home services: No Alcohol intake: never Comment: pt refuses alarms Patient Tobacco Use Status: Never used Tobacco e-Cigarette/Vaping Use: Never Used Second Hand Smoke Exposure: No Advance Directives Date on File: 04/08/22 service: No Current occupational status: retired Current occupational exposures/hazards: No Cognitive needs: No Hearing needs: No Vision needs: Yes Questionnaire PHQ-9 Over the last 2 weeks, how often have you been bothered by any of the following problems? 1. Little interest or pleasure in doing things: not at all 2. Feeling down, depressed, or hopeless: not at all 3. Trouble falling or staying asleep, or sleeping too much: not at all 4. Feeling tired or having little energy: several days 5. Poor appetite or overeating: not at all 6. Feeling bad about yourself - or that you are a failure or have let yourself or your family down: not at all 7. Trouble concentrating on things, such as reading the newspaper or watching television: not at all 8. Moving or speaking so slowly that other people could have noticed. Or the opposite - being so fidgety or restless that you have been moving around a lot more than usual: not at all 9. Thoughts that you would be better off or of hurting yourself in some way: not at all Total score: 1 Depression Screening Interpretation: Negative Depression Screening Done: Yes 12425 - PHQ-9 Billing: Yes Source: Developed by Drs. Uriel Falk, Rosie Felipe, Hasmukh Kumar and colleagues, with an educational sandra from [employer]. Thrive Questionnaire Date Thrive assessed: 01/21/24 I am a: Patient What is your living situation today?: I have a steady place to live Within the past 12 months, did the food you bought not last and you didn't have the money to get more?: Often true Within the past 12 months, did you worry whether your food would run out before you got money to buy more?: Often true Do you have trouble paying for medicines?: Yes Do you have trouble getting transportation to medical appointments?: No Do you have trouble paying your heating and electricity bill?: I choose not to answer this question Do you have trouble taking care of your child, family member or friend?: I choose not to answer this question Do you have trouble with day-to-day activities such as bathing, preparing meals, shopping, managing finances, etc.?: No Are you currently unemployed and looking for a job?: No Are you interested in more education?: No Please select the resources that you would like help with: None Currently or been in a relationship where the following occur: No concerns reported THRIVE Score: 2 AUDIT C Alcohol Use Questionnaire (AUDIT-C) 1. How often do you have a drink containing alcohol?: Never Total Score: 0 HUMAIRA-7 AMB Questionnaire HUMAIRA-7 Date HUMAIRA - 7 assessed: 01/21/24 Feeling nervous, anxious, or on edge: 0 = Not at all Not being able to stop or control worryin = Not at all Worrying too much about different things: 0 = Not at all Trouble relaxin = Not at all Being so restless that it is hard to sit still: 0 = Not at all Becoming easily annoyed or irritable: 0 = Not at all Feeling afraid as if something awful might happen: 0 = Not at all Total HUMAIRA-7 score (0-4 normal; 5-9 mild; 10-14 moderate; 15-21 severe): 0 Source: Developed by Drs. Uriel Falk, Rosie Felipe, Hasmukh Kumar and colleagues, with an educational sandra from [employer]. HUMAIRA-7 Assessment Billing HUMAIRA-7 Assessment Tool: HUMAIRA-7 Assessment 04893 Review of Systems Const Denies fatigue, Denies fever(s), Denies frequent falls and Denies weakness Eyes Reports no additional complaints and Reports requires corrective lenses ENT Reports no additional complaints Card Denies chest pain, Denies leg edema, Denies lightheadedness, Denies palpitations, Denies dyspnea and Denies dyspnea on exertion Resp Denies cough, Denies dyspnea and Denies dyspnea on exertion GI Denies hematochezia Reports no additional complaints Musc Denies abnormal gait, Denies muscle weakness, Denies numbness, Denies radiating pain into limb and Denies tingling Skin/Breast Denies breast pain, Denies breast mass, Denies lesions and Denies rash Neuro Denies abnormal gait, Denies frequent falls, Denies numbness, Denies tingling and Denies weakness Psych Reports no additional complaints Endo Denies fatigue and Denies palpitations Jace/Lymph Reports easy bruising Aller/Immun Reports no additional complaints Physical exam (Primary Care) Vital Signs: Last Vital Signs Pulse 65 01/21/24 11:28 BP 124/80 01/21/24 11:28 Pulse Ox 96 01/21/24 11:28 Oxygen Delivery Method Room Air 01/21/24 11:28 BMI result Body Mass Index 40.7 Tobacco/Smoking Status: Tobacco use Status Tobacco use date assessed 01/21/24 01/21/24 11:33 Patient Tobacco Use Status Never used Tobacco 01/21/24 11:26 e-Cigarette/Vaping Use Never Used 01/21/24 11:26 PHQ-9: PHQ-9 Score PHQ-9: Total score 1 01/21/24 12:12 Depression Screening Interpretation: Negative Thrive Assessment: Date of Thrive Assessment Date Thrive assessed 01/21/24 01/21/24 11:33 Currently or been in a relationship where the following occur: No concerns reported Const General: comfortable, no acute distress and awake Nutritional Appearance: obese Orientation/consciousness: patient oriented x3 HENMT Ears: external ears normal General nose exam: Normal external nose present and No nasal discharge present Mouth: oropharynx normal and moist mucous membranes Eyes General: appearance normal, both eyes and all related structures Neck Neck: Yes full ROM, Yes no lymphadenopathy and Yes supple Chest Other: Patient declined breast exam Resp Effort & Inspection: normal respiratory effort and able to speak in complete sentences Auscultation: clear to auscultation bilaterally Cardio Rate: regular rate Rhythm: regular rhythm Heart sounds: S1 normal heart sound present and S2 normal heart sound present GI Inspection: Yes Abdominal panniculus present and Yes obesity Palpation (GI): Soft to palpation, nontender and no guarding Auscultation: normal bowel sounds Other: Patient declined pelvic exam General: Yes no CVA tenderness Back/Spine/Pelvis Back: no CVA tenderness and No back tenderness Skin General skin exam: no rashes or lesions noted Neuro General: patient oriented x3, gait normal, tone normal, moves all extremities, Normal light touch and pain sensation and no focal motor deficits Cognition (Neuro): normal cognition Gait exam (Neuro): Normal gait present Motor exam (neuro): 5/5 motor strength present throughout Extrem Other: Trace ankle swelling bilateral General: Yes full ROM, Yes no joint enlargement, Yes no calf tenderness and Yes normal gait Psych Appearance: grossly normal and well kempt Mental Status: mental status grossly normal Speech and movement: Normal speech and movement present Affect: normal affect Attitude: cooperative Thought process: Normal thought process present Thought content: Normal thought content present Coding Level of Care Code Est Pt Prev Care >65y(47814) Diagnoses Annual visit for general adult medical examination with abnormal findings Z00.01 Type 2 diabetes mellitus with hyperglycemia, with long-term current use of insulin E11.65; Z79.4 Mixed dyslipidemia E78.2 Paroxysmal atrial fibrillation I48.0 Stage 3 chronic kidney disease, unspecified whether stage 3a or 3b CKD N18.30 Chronic kidney disease stage 3 subtype: unspecified whether 3a or 3b Coronary arteriosclerosis I25.10 Additional Codes PHQ-9 - 82535 - PHQ-9 Billing: Yes ([id number]) HUMAIRA-7 Assessment Billing - HUMAIRA-7 Assessment Tool: HUMAIRA-7 Assessment 69131 ([id number]) Assessment & Plan Assessment & Plan (1) Annual visit for general adult medical examination with abnormal findings: Code(s): Z00.01 - Encounter for general adult medical examination with abnormal findings Plan: Fasting lipid panel ordered Recommended dental visit every 6 months and annual eye exam for diabetic retinopathy screening.. Advised to take adequate calcium in diet and vitamin-D 3 at 2000 IU per cap once a day, in addition to weight- bearing exercises to help maintain good muscle tone and weight control. Patient has declined doing any further breast cancer screening or screening colonoscopy. Last 1 done was in [address] Osorio. She has had COVID vaccines in the past does not want to get the booster, reminded to get a flu vaccine and up-to-date with her pneumonia vaccine . Recommended to also get shingles vaccination but patient declined (2) Type 2 diabetes mellitus with hyperglycemia, with long-term current use of insulin: Code(s): E11.65 - Type 2 diabetes mellitus with hyperglycemia; Z79.4 - intermediate card tender (current) use of insulin Category: Medical Plan: Currently by [facility] last hemoglobin A1c on 01/09/2024 at 8.8%. She is on NPH insulin 23 units twice daily. Her Trulicity dose was increased to 4.5 mg weekly last 01/04/2024 , and continued on Humalog 15 units before meals. She has been referred to podiatry (3) Mixed dyslipidemia: Code(s): E78.2 - Mixed hyperlipidemia Category: Medical Plan: Fasting lipid panel ordered. Currently on atorvastatin 40 mg daily (4) Paroxysmal atrial fibrillation: Code(s): I48.0 - Paroxysmal atrial fibrillation Category: Medical Plan: Currently on warfarin, followed by cardiology (5) CKD (chronic kidney disease) stage 3, GFR 30-59 ml/min: Code(s): N18.30 - Chronic kidney disease, stage 3 unspecified Category: Medical Qualifiers: Chronic kidney disease stage 3 subtype: unspecified whether 3a or 3b Qualified Code(s): N18.30 - Chronic kidney disease, stage 3 unspecified Plan: Followed by Nephrology (6) Coronary arteriosclerosis: Code(s): I25.10 - Atherosclerotic heart disease of [place] coronary artery without angina pectoris Category: Medical Plan: Continue atorvastatin 40 mg daily followed by cardiology Orders: Orders Lipid Panel 01/21/24 E11.65 - Type 2 diabetes mellitus with hyperglycemia, Z79.4 - longterm (current) use of insulin Lipid Panel 07/15/24 E78.2 - Mixed hyperlipidemia
[2024-01-21 11:28] VITALS: BP 124/80; PULSE 65; O2SAT 96; BMI 40.7
== END 2024-01-21 12:54 | disposition home or self-care (01) ==
LOC: HO.HMCC 10:59
PROVIDERS: PCP Internal Medicine; Visit Provider Internal Medicine
DX: Z00.00 Encounter for general adult medical examination without abnormal findings (principal); E11.65 Type 2 diabetes mellitus with hyperglycemia; N18.30 Chronic kidney disease, stage 3 unspecified; Z79.4 Long term (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 of insulin; I48.0 Paroxysmal atrial fibrillation; E78.2 Mixed hyperlipidemia; I25.10 Atherosclerotic heart disease of native coronary artery without angina pectoris

== ENCOUNTER 2024-01-21 10:59 | Outpatient (REF) | payer MEDICARE, SELFPAY ==
[2024-01-21 16:19] LABS: MANUAL DIFF FLAG NO
[2024-01-21 16:44] LABS: Basophils Absolute Auto 0.1 X10*3/uL (0.0-0.2); Basophils Percent Auto 0.9 % (0-2); Eosinophils Absolute Auto 0.4 X10*3/uL (0.0-0.4); Eosinophils Percent Auto 4.3 % (0-4); Hematocrit 38.7 % (37.0-47.0); Hemoglobin 12.7 g/dl (12.0-16.0); Imm Gran Abs Auto 0.02 X10*3/uL (0.00-0.03); Imm Gran Pct Auto 0.2 % (0.0-0.4); Lymphocytes Absolute Auto 2.2 X10*3/uL (1.2-4.9); Lymphocytes Percent Auto 24.3 % (20-40); Mean Corpuscular HGB Conc 32.8 g/dl (31.0-35.0); Mean Corpuscular Hemoglobin 29.3 pg (27.0-33.0); Mean Corpuscular Volume 89.4 fL (80.0-98.0); Monocytes Absolute Auto 0.5 X10*3/uL (0.1-1.2); Monocytes Percent Auto 5.3 % (2-11); Platelet Count 245 X10*3/uL (160-400); Red Blood Count 4.33 X10*6/uL (4.20-5.50); White Blood Count 9.2 X10*3/uL (4.8-10.8)
[2024-01-21 16:55] LABS: Appearance Urine Cloudy; Color Urine Yellow; Glucose Urine UA Negative (Negative); Leukocyte Esterase Urine Large (3+) (Negative); Nitrite Urine Negative (Negative); PH 5.5 (5.0-9.0); UMIC TRIGGER UA YES; Urine Blood Negative (Negative); Urine Ketones Negative (Negative); Urine Protein Negative (Neg-Trace)
[2024-01-21 16:57] LABS: Total Protein Urine Random < 7 mg/dL (<12)
[2024-01-21 17:01] LABS: Alanine Aminotransferase 9 U/L (0-31); Albumin Level 3.8 g/dL (3.5-5.0); Alkaline Phosphatase 86 U/L (39-117); Anion Gap 17 (12-20); Aspartate Amino Transferase 18 U/L (5-31); Bilirubin Total 0.5 mg/dL (0.0-1.0); Blood Urea Nitrogen 39 mg/dL (9-16); Calcium 9.5 mg/dL (8.4-10.2); Carbon Dioxide 23 mmol/L (22-29); Chloride 101 mmol/L (96-108); Cholesterol 141 mg/dL (<200); Estimated Glomerular Filt Rate 39; Glucose Random 186 mg/dL (60-115); HDL Cholesterol 41 mg/dL (>40); LDL Cholesterol Calculated 58 mg/dL (<100); Phosphorus 4.1 mg/dL (2.7-4.5); Potassium 3.5 mmol/L (3.3-5.1); Sodium 137 mmol/L (135-145); Total Protein 7.2 g/dL (6.5-8.0); Triglycerides 211 mg/dL (<150)
[2024-01-21 17:45] LABS: Bacteria Urine 2+ (None Seen); Hyaline Casts Urine 0-2 /LPF (0-2); RBC Urine 0-2 /HPF (0-2); WBC Urine 21-50 /HPF (0-5)
== END 2024-01-21 11:00 | disposition home or self-care (01) ==
LOC: HO.HMGCLDS 10:59
PROVIDERS: Internal Medicine Hypertension Specialist; PCP Internal Medicine; Visit Provider Internal Medicine
DX: Z00.01 Encounter for general adult medical examination with abnormal findings (principal); E11.65 Type 2 diabetes mellitus with hyperglycemia; E78.2 Mixed hyperlipidemia; I48.0 Paroxysmal atrial fibrillation; I25.10 Atherosclerotic heart disease of native coronary artery without angina pectoris; N18.30 Chronic kidney disease, stage 3 unspecified; Z79.4 Long term (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 of insulin
CPT/HCPCS: 36415; 80053; 80061; 81001; 82570; 84100; 84156; 85025; 96127; 99397

== ENCOUNTER 2024-01-23 13:52 | Outpatient (REF) | payer MEDICARE, SELFPAY ==
[2024-01-23 15:10] LABS: Appearance Urine Cloudy; Color Urine Yellow; Glucose Urine UA Negative (Negative); Leukocyte Esterase Urine Large (3+) (Negative); Nitrite Urine Negative (Negative); PH 5.5 (5.0-9.0); UMIC TRIGGER UA YES; Urine Blood Negative (Negative); Urine Ketones Negative (Negative); Urine Protein Negative (Neg-Trace)
[2024-01-23 15:27] LABS: Bacteria Urine 3+ (None Seen); Other Crystals Urine Present; RBC Urine 0-2 /HPF (0-2); Squamous Epithelial Cell Urine 0-2 /HPF (0-2); WBC Urine >50 /HPF (0-5)
[2024-01-23 15:58] LABS: Creatinine Urine 70.67 mg/dL; Microalbum/Creatinine Ratio Ur 21.2 ug/mg cr (<30)
[2024-02-04 01:14] LABS: Parathyroid Hormone Related Pr 5 pg/mL (11-20)
== END 2024-01-23 13:53 | disposition home or self-care (01) ==
LOC: HO.LAB 13:52
PROVIDERS: Internal Medicine Endocrinology, Diabetes & Metabolism; Absent Provider Internal Medicine Hypertension Specialist; PCP Internal Medicine; Visit Provider Internal Medicine
DX: Z79.01 Long term (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 of anticoagulants (principal); N18.30 Chronic kidney disease, stage 3 unspecified; E11.65 Type 2 diabetes mellitus with hyperglycemia; Z79.4 Long term (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 of insulin
CPT/HCPCS: 36415; 81001; 82043; 82570; 83519; 85610; 99211

== ENCOUNTER 2024-01-23 13:52 | Outpatient (AMB) | payer MEDICARE, SELFPAY ==
[2024-01-23 14:07] LABS: Prothrombin Time Whole Bld POC 22.9 sec (11.1-13.5); ~PT, ~INR - Anti Coag Clinic 1.9 (0.9-1.1)
--- NOTE | 2024-01-23 14:11 | MHC.OFFVISCO ---
Intake Intake Visit Reasons: Anticoagulation Allergies red dye [Red Dye] Allergy (Severe, Verified 01/23/24 14:00) HIVES,THROAT CLOSES FROM RED FOOD DYE tape Adverse Reaction (Intermediate, Uncoded 01/23/24 14:00) Redness of Skin Medication List - Last Reconciled 01/23/24 by Jeanna Mcallister, RN albuterol sulfate 90 mcg/actuation 180 mcg inhalation Q6H PRN atorvastatin 40 mg PO DAILY blood sugar diagnostic (FreeStyle Lite Strips) As directed check sugar twice a day before meals blood-glucose meter (FreeStyle Lite Meter kit) As directed bumetanide 3 mg PO Q2D@0900 bumetanide 2 mg twice daily alternating with 3 mg twice daily, as before carvedilol 6.25 mg PO BID 90 days cholecalciferol (vitamin D3) 25 mcg PO DAILY clotrimazole 1% (Athlete's Foot (clotrimazole)) 1 appl topical BID 4 weeks dulaglutide (Trulicity) 4.5 mg (0.5 mL) subcut QWEEK flash glucose scanning reader ([employer] Tabatha 2 [place]) As directed flash glucose sensor (FreeStyle Tabatha 2 Sensor kit) APPLY 1 SENSOR TOPICALLY, AND LEAVE IN PLACE FOR 14 DAYS, TO MONITOR BLOOD SUGAR DIRECTED BY THE DOCTOR. CHANGE SENSOR EVERY 14 DAYS. insulin degludec (Tresiba FlexTouch U-100 insulin) 42 units (0.42 mL) subcut DAILY insulin lispro (Humalog Tempo Pen (U-100) Insulin) 15 units (0.15 mL) subcut TID insulin NPH isoph U-100 human (Novolin N FlexPen) 23 units (0.23 mL) subcut BID insulin syringe-needle U-100 (BD Veo Insulin Syringe Ultra-Fine) As directed twice a day lancets (FreeStyle Lancets) As directed losartan 25 mg PO DAILY nystatin (Nystop) 1 appl topical BID PRN pen needle, diabetic (BD Ultra-Fine Short Pen Needle) USE 4 times a day Saccharomyces boulardii (Digest Probiotic (S.boulardii)) PO PRN [scale-accommodate weight 300 lbs As directed] spironolactone 25 mg PO DAILY warfarin 5 mg See Protocol PO SUMOTUTHFRSA@1800 [wheelchair As directed] Nursing Note Amb to [facility] using cane, sts feels well Medications and supplements reviewed, is not on tresiba yet, she will let us know when she starts, sts all paperwork has done No other changes in health, diet, medications, or supplements, Denies any signs and symptoms of bleeding, bruising, or clotting. Bleeding, bruising, clotting discussed INR 1.9 just below therapeutic range, has been on low end last couple visits Dose: increase dose today only to 7.5mg (vs 5mg) then resume usual dosing. Discussion with pt regarding may need increase in weekly dosing Nutritional guidance no greens today then balance in diet F/U INR: 2 weeks Patient verbalizes understanding of instructions given Anti-Coag Initial Assessment Social Hx Patient Tobacco Use Status: Never used Tobacco alcohol intake: never Alcohol intake frequency: does not drink Cardiovascular Hx: HTN, Angina, CAD, CHF, Arrhythmias, Varicose Veins and Other Lung Disease HX: Asthma Endocrine Hx: Diabetes Musculoskeletal Hx: Arthritis Blood Disorder Hx: Hyperlipidemia GI Hx: Ulcers, Bleeding (GI, rectal) and Other Hx: Kidney Disease Neurological Hx: Serious Head Injury and Migraines/Headaches 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 ) Psych. 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
== END 2024-01-23 14:19 | disposition home or self-care (01) ==
LOC: HO.ACS 13:52
PROVIDERS: PCP Internal Medicine; Visit Provider Internal Medicine
DX: Z79.01 Long term (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 of anticoagulants (principal)

== ENCOUNTER → 2024-01-27 10:49 | Outpatient (REF) | payer MEDICARE, SELFPAY ==
--- NOTE | 2024-01-27 10:52 | CA_ITS ---
Transthoracic Echocardiogram Patient (Last, First, Middle): July Dorantes J Gender: Female Date of : 1955 Age: 68 Procedure Date: 01/27/2024 Procedure Type: Transthoracic Echocardiogram Location: OP Height: 165. cm Weight: 107.96 kg BSA: 2.13 m2 Heart Rate: 67 bpm BP: 120 / 65 mmHg Front Office Coordinator: IRA Referring MD: Cesar Storey MD Symptoms: I50.20 - Unspecified systolic (congestive) heart failure Study Quality: Fair ECG Rhythm: Sinus Conclusions: - Normal left ventricular cavity size. There is mildly increased left ventricular wall thickness. The left ventricular systolic function is low normal. The visually estimated ejection fraction is between 50-55%. - Elevated filling pressures. - The inferolateral wall is hypokinetic. - Normal right ventricular cavity size. There is low normal right ventricular systolic function. Findings Left Ventricle Normal left ventricular cavity size. There is mildly increased left ventricular wall thickness. The left ventricular systolic function is low normal. The visually estimated ejection fraction is between 50-55%. There is evidence of regional wall motion abnormalities. Abnormal diastolic function is noted. Spectral Doppler is indicative of a pseudonormal filling pattern. Elevated filling pressures. Wall Motion Rest Echo Findings The inferolateral wall is hypokinetic. Right Ventricle Normal right ventricular cavity size. There is low normal right ventricular systolic function. Atria The left atrium is mildly dilated. The right atrium is normal in size. Aortic Valve The aortic valve structure and function is likely normal. There is mild calcification of the aortic valve. There is no aortic valve stenosis. There is no aortic valve regurgitation. Mitral Valve The mitral valve appears normal. There is trace mitral valve regurgitation. There is no mitral valve stenosis. Pulmonic Valve The pulmonic valve is likely normal. Tricuspid Valve Normal tricuspid valve structure. There is trace tricuspid valve regurgitation. Normal right atrial pressure. There is no evidence of pulmonary hypertension. Great Vessels There is mild dilatation of the ascending aorta measuring 3.60 cm. Venous The inferior vena cava is normal in size and collapses greater than 50% with inspiration. Pericardium/Pleural There is no evidence of pericardial effusion. Prior Study Comparison Changes noted compared to prior study dated: 09/26/2023. EF 50-55%, RV function low normal. Measurements 2D Linear Measurements IVSd: 1.09 0.6-0.9/0.6-1.0 cm LVIDd: 4.95 3.9-5.3/4.2-5.9 cm LVIDd Index: 2.32 2.4-3.2/2.2-3.1 cm/m2 LVIDs: 3.67 2.0-3.6 cm LVPWd: 1.29 0.7-1.1 cm LA Diam: 4.90 2.7-3.8/3.0-4.0 cm LAIDs Index: 2.30 1.5-2.3 cm/m2 LV Mass: 283.45 67-162/88-224 g LV Mass Index: 133.07 43-95/49-115 g/m2 LVOT Diam: 2.00 3.0+(-)1.3 cm 2D Systolic Function EF 4C: 54.20 >55% EF 2C: 56.20 >55% EF BiP: 56.80 >55% Mitral Valve MV Pk E: 1.10 MV PK A: 0.67 MV Decel Time: 228.00 E/A: 1.60 E'Lateral: 8.05 E'Medial: 6.64 E/E' Med: 16.60 E/E' Lat: 13.70 PHT: 67.00 MVA PHT: 3.28 Decel Ashe: 4.82 Aortic Valve AoV Pk Héctor: 1.94 AoV Mn Héctor: 1.34 AoV VTI: 0.45 AoV Pk Grad: 15.00 Aov Mn Grad: 8.00 SANDEEP Cont.VTI: 1.82 LVOT LVOT Pk Héctor: 1.20 LVOT Mn Héctor: 0.84 LVOT VTI: 0.26 LVOT Pk Grad: 6.00 LVOT Mn Grad: 3.00 LVOT Diam: 2.00 LVOT Area: 3.14 Diastolic Function MV Pk E: 1.10 MV Pk A: 0.67 E/A: 1.60 E'Medial: 6.64 E/E' Med: 16.60 E' Laterial: 8.05 E/E' Lat: 13.70 Right Ventricle TAPSE (mm): 22.80 TVS' Héctor: 8.92 Tricuspid Valve TR Pk Héctor: 2.15 TR Pk Grad: 18.00 RA Press: 3.00 RVSP: 21.00 Great Vessels Aorta Sinus of Valsalva: 2.90 2.0-3.5 cm Ao Asc: 3.60 2.1-3.4 cm Pulmonary Valve PV Pk Héctor: 0.79 Peak PV Grad: 2.00 Updated in Other Vendor System with Status of Final Cesar Storey MD electronically signed on 01/27/2024 3:09:16 PM with status of Final
== END ==
LOC: HO.CARD 10:49
PROVIDERS: PCP Internal Medicine; Visit Provider Internal Medicine Cardiovascular Disease
DX: I50.20 Unspecified systolic (congestive) heart failure (principal)
CPT/HCPCS: 93306

== ENCOUNTER → 2024-01-27 10:52 | Outpatient (BNV) | payer MEDICARE, SELFPAY | PROVIDERS: PCP Internal Medicine; Visit Provider Internal Medicine Cardiovascular Disease | DX: I50.20 Unspecified systolic (congestive) heart failure (principal); I35.8 Other nonrheumatic aortic valve disorders | CPT/HCPCS: 93306 ==

== ENCOUNTER 2024-02-03 10:41 | Outpatient (AMB) | payer MEDICARE, SELFPAY ==
[2024-02-03 10:42] VITALS: BP 122/70; PULSE 97; O2SAT 75; BMI 41.0
--- NOTE | 2024-02-03 10:42 | HO.NEPHOV_ITS ---
Vital Signs 02/03/24 10:42 Height 5 ft 4 in Weight 239 lb BMI 41.0 BP 122/70 Blood Pressure Location Lt brachial Position Sitting Pulse 97 Pulse Source Pulse Oximeter Pulse Oximetry (%) 75 L Oxygen Delivery Method Room Air Intake Visit Reasons: CKD/ LVM Clinical Education Manager Required: No Accompanied by: Self / Same As Patient Allergies red dye [Red Dye] Allergy (Severe, Verified 02/03/24 10:45) HIVES,THROAT CLOSES FROM RED FOOD DYE tape Adverse Reaction (Intermediate, Uncoded 01/25/24 18:41) Redness of Skin Medication List - Last Reconciled 02/03/24 by Vikash Malin MD albuterol sulfate 90 mcg/actuation 180 mcg inhalation Q6H PRN atorvastatin 40 mg PO DAILY blood sugar diagnostic (FreeStyle Lite Strips) As directed check sugar twice a day before meals blood-glucose meter (FreeStyle Lite Meter kit) As directed bumetanide 3 mg PO Q2D@0900 bumetanide 2 mg twice daily alternating with 3 mg twice daily, as before carvedilol 6.25 mg PO BID 90 days cholecalciferol (vitamin D3) 25 mcg PO DAILY clotrimazole 1% (Athlete's Foot (clotrimazole)) 1 appl topical BID 4 weeks dulaglutide (Trulicity) 4.5 mg (0.5 mL) subcut QWEEK flash glucose scanning reader (PreisAnalyticsStyle Tabatha 2 [place]) As directed flash glucose sensor (FreeStyle Tabatha 2 Sensor kit) APPLY 1 SENSOR TOPICALLY AND LEAVE IN PLACE FOR 14 DAYS TO MONITOR BLOOD GLUCOSE DIRECTED BY THE DOCTOR. CHANGE SENSOR EVERY 14 DAYS insulin degludec (Tresiba FlexTouch U-100 insulin) 42 units (0.42 mL) subcut DAILY insulin lispro (Humalog Tempo Pen (U-100) Insulin) 15 units (0.15 mL) subcut TID insulin NPH isoph U-100 human (Novolin N FlexPen) 23 units (0.23 mL) subcut BID insulin syringe-needle U-100 (BD Veo Insulin Syringe Ultra-Fine) As directed twice a day lancets (FreeStyle Lancets) As directed losartan 25 mg PO DAILY nystatin (Nystop) 1 appl topical BID PRN pen needle, diabetic (BD Ultra-Fine Short Pen Needle) USE 4 times a day Saccharomyces boulardii (Digest Probiotic (S.boulardii)) PO PRN [scale-accommodate weight 300 lbs As directed] spironolactone 25 mg PO DAILY warfarin 5 mg See Protocol PO SUMOTUTHFR@1800 [wheelchair As directed] HPI Comments Details: July is a pleasant 68 woman with a history of longstanding diabetes mellitus hypertension and coronary disease with chronic disease. Baseline serum creatinine is around 1.6 mg/dL. She was previously seen in 2022 during her hospitalization for acute kidney injury due to cardiorenal syndrome. At present renal function remained stable with a creatinine 1.6 mg/dL. Blood sugars have been suboptimal. 02/03/24 Overall doing OK BP well controlled NO change in meds [facility] Medical History Diabetic neuropathy Cardiac resynchronization therapy defibrillator (FURNACE CHARGER-D) in place History of COVID-19 Paroxysmal atrial fibrillation CHF (congestive heart failure) Left bundle branch block History of uterine cancer Personal history of malignant neoplasm of other parts of uterus Tinea pedis History of cardioversion Cardiomyopathy Coronary arteriosclerosis Ischemic cardiomyopathy Colonoscopy refused Incomplete left bundle branch block (LBBB) Post-menopausal bleeding Type 2 diabetes mellitus with hyperglycemia, with long-term current use of insulin Vitamin D deficiency Mixed dyslipidemia Papanicolaou smear declined Mammogram declined Osteoarthritis, knee Diabetic neuropathy History of esophagitis Mild intermittent asthma History of basal cell carcinoma Osteonecrosis of right hip Hiatal hernia History of cholelithiasis Morbid obesity Essential hypertension Type 2 diabetes mellitus with hyperglycemia, without long-term current use of insulin Irritable bowel syndrome (IBS) Surgical History S/P CLARE-BSO (total abdominal hysterectomy and bilateral salpingo-oophorectomy) S/P cardiac catheterization History of hysterectomy H/O hernia repair Hx of section History of hip surgery Hx of colonoscopy History of cholecystectomy Family History Father Myocardial infarction Cardiovascular disease Mother Diabetes mellitus Essential hypertension Daughter Anxiety disorder Mental health disorder Son Mental health disorder Social History Household Members: Spouse and Children Housing: House Are you a primary adult daycare coordinator to a significant other at home: No Do you presently have visiting nurse or other home services: No Alcohol intake: never Comment: pt refuses alarms Patient Tobacco Use Status: Never used Tobacco e-Cigarette/Vaping Use: Never Used Second Hand Smoke Exposure: No Advance Directives Date on File: 04/08/22 service: No Current occupational status: retired Current occupational exposures/hazards: No Cognitive needs: No Hearing needs: No Vision needs: Yes Physical Exam Vital Signs: Last Vital Signs Pulse 97 02/03/24 10:42 BP 122/70 02/03/24 10:42 Pulse Ox 75 L 02/03/24 10:42 Oxygen Delivery Method Room Air 02/03/24 10:42 BMI result Body Mass Index 41.0 Neck Neck: Yes supple Resp Auscultation: clear to auscultation bilaterally Cardio Palpation: no palpable S3 Heart sounds: no rubs GI Palpation (GI): Soft to palpation Auscultation: normal bowel sounds Neuro Motor exam (neuro): no asterixis Results Reviewed Nephrology Results: Hgb 12.7 g/dl (12.0-16.0) 01/21/24 WBC 9.2 X10*3/uL (4.8-10.8) 01/21/24 Plt Count 245 X10*3/uL (160-400) 01/21/24 Sodium 137 mmol/L (135-145) 01/21/24 Potassium 3.5 mmol/L (3.3-5.1) 01/21/24 Chloride 101 mmol/L (96-108) 01/21/24 Carbon Dioxide 23 mmol/L (22-29) 01/21/24 BUN 39 mg/dL (9-16) H 01/21/24 Creatinine 1.36 mg/dL (0.5-1.4) 01/21/24 Calcium 9.5 mg/dL (8.4-10.2) 01/21/24 Phosphorus 4.1 mg/dL (2.7-4.5) 01/21/24 Urine Protein Negative mg/dL (Neg-Trace) 01/23/24 Urine Creatinine 70.67 mg/dL 01/23/24 Assessment & Plan Assessment & Plan (1) CKD (chronic kidney disease) stage 3, GFR 30-59 ml/min: Code(s): N18.30 - Chronic kidney disease, stage 3 unspecified Category: Medical Qualifiers: Chronic kidney disease stage 3 subtype: unspecified whether 3a or 3b Qualified Code(s): N18.30 - Chronic kidney disease, stage 3 unspecified Plan: Followed by Nephrology Plan 68-year-old woman with a history of chronic kidney disease setting of longstanding diabetes mellitus hypertension. She on has underlying diabetes to current disease. He has a congestive heart failure. She appears well compensated at this time. \ Creatinine has improved! Goal is to slow the progression of renal disease. Stay on low-sodium diet Continue current antihypertensive medications and diuretics. Continue to avoid nephrotoxic agents including NSAIDS Keep on Losartan for renal protections She will benefit from SGLT-2 inhibitor No significant proteinuria - Monitor urine protein excretion. No changes were made today Orders: Orders Basic Metabolic Panel 5 Months N18.30 - Chronic kidney disease, stage 3 unspecified Coding Level of Care Code Est Pt Level 4 (08467) Diagnoses Stage 3 chronic kidney disease, unspecified whether stage 3a or 3b CKD N18.30 Chronic kidney disease stage 3 subtype: unspecified whether 3a or 3b
== END 2024-02-03 10:59 | disposition home or self-care (01) ==
PROVIDERS: PCP Internal Medicine; Visit Provider Internal Medicine Hypertension Specialist
DX: I12.9 Hypertensive chronic kidney disease with stage 1 through stage 4 chronic kidney disease, or unspecified chronic kidney disease (principal); E11.22 Type 2 diabetes mellitus with diabetic chronic kidney disease; N18.30 Chronic kidney disease, stage 3 unspecified
CPT/HCPCS: 99214

== ENCOUNTER → 2024-02-03 10:41 | Outpatient (BNVA) | payer MEDICARE, SELFPAY | PROVIDERS: PCP Internal Medicine; Visit Provider Internal Medicine Hypertension Specialist | DX: I12.9 Hypertensive chronic kidney disease with stage 1 through stage 4 chronic kidney disease, or unspecified chronic kidney disease (principal); N18.30 Chronic kidney disease, stage 3 unspecified | CPT/HCPCS: 99212 ==

== ENCOUNTER 2024-02-06 13:52 | Outpatient (AMB) | payer MEDICARE, SELFPAY ==
[2024-02-06 14:15] LABS: Prothrombin Time Whole Bld POC 27.7 sec (11.1-13.5); ~PT, ~INR - Anti Coag Clinic 2.3 (0.9-1.1)
--- NOTE | 2024-02-06 14:24 | MHC.OFFVISCO ---
Intake Intake Visit Reasons: Anticoagulation Allergies red dye [Red Dye] Allergy (Severe, Verified 02/06/24 14:09) HIVES,THROAT CLOSES FROM RED FOOD DYE tape Adverse Reaction (Intermediate, Uncoded 01/25/24 18:41) Redness of Skin Medication List - Last Reconciled 02/06/24 by Tabatha Gomez, RN albuterol sulfate 90 mcg/actuation 180 mcg inhalation Q6H PRN atorvastatin 40 mg PO DAILY blood sugar diagnostic (FreeStyle Lite Strips) As directed check sugar twice a day before meals blood-glucose meter (FreeStyle Lite Meter kit) As directed bumetanide 3 mg PO Q2D@0900 bumetanide 2 mg twice daily alternating with 3 mg twice daily, as before carvedilol 6.25 mg PO BID 90 days cholecalciferol (vitamin D3) 25 mcg PO DAILY clotrimazole 1% (Athlete's Foot (clotrimazole)) 1 appl topical BID 4 weeks dulaglutide (Trulicity) 4.5 mg (0.5 mL) subcut QWEEK flash glucose scanning reader (eTherapeuticsStyle Tabatha 2 [place]) As directed flash glucose sensor (FreeStyle Tabatha 2 Sensor kit) APPLY 1 SENSOR TOPICALLY AND LEAVE IN PLACE FOR 14 DAYS TO MONITOR BLOOD GLUCOSE DIRECTED BY THE DOCTOR. CHANGE SENSOR EVERY 14 DAYS insulin degludec (Tresiba FlexTouch U-100 insulin) 42 units (0.42 mL) subcut DAILY insulin lispro (Humalog Tempo Pen (U-100) Insulin) 15 units (0.15 mL) subcut TID insulin NPH isoph U-100 human (Novolin N FlexPen) 23 units (0.23 mL) subcut BID insulin syringe-needle U-100 (BD Veo Insulin Syringe Ultra-Fine) As directed twice a day lancets (FreeStyle Lancets) As directed losartan 25 mg PO DAILY nystatin (Nystop) 1 appl topical BID PRN pen needle, diabetic (BD Ultra-Fine Short Pen Needle) USE 4 times a day Saccharomyces boulardii (Digest Probiotic (S.boulardii)) PO PRN [scale-accommodate weight 300 lbs As directed] spironolactone 25 mg PO DAILY warfarin 5 mg See Protocol PO SUMOTUTHFRSA@1800 [wheelchair As directed] Nursing Note PT.STATES THAT SHE WILL RESTART PREV.ORDER FOR GABAPENTIN 100MGM BID DUE TO INCREASING NEUROPATHY PAIN. NO CP,SOB,DIET CHANGES,FALLS OR SX OF BLEEDING. CONTINUE PRESENT WARFARIN DOSE AND FOLLOW-UP IN 2 WEEKS GOOD UNDERSTANDING OF DOSING INSTR. 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 ) Psych. Illness/Depression: No Coding Level of Care Code Est Patient Level 1 Diagnoses Current use of anticoagulant therapy Z79.01 Assessment & Plan Assessment & Plan (1) Current use of anticoagulant therapy: Code(s): Z79.01 - USP (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 of anticoagulants Category: Medical
== END 2024-02-06 14:28 | disposition home or self-care (01) ==
LOC: HO.ACS 13:52
PROVIDERS: PCP Internal Medicine; Visit Provider Internal Medicine
DX: Z79.01 Long term (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 of anticoagulants (principal)

== ENCOUNTER → 2024-02-06 13:52 | Outpatient (BNVA) | payer MEDICARE, SELFPAY | PROVIDERS: PCP Internal Medicine; Visit Provider Internal Medicine | DX: I48.0 Paroxysmal atrial fibrillation (principal); Z79.01 Long term (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 of anticoagulants; Z51.81 Encounter for therapeutic drug level monitoring | CPT/HCPCS: 85610; 99211 ==

== ENCOUNTER 2024-02-16 14:30 | Outpatient (REF) | payer MEDICARE, SELFPAY | END 2024-02-16 14:31 | disposition home or self-care (01) | LOC: HO.HMGCX 14:30 | PROVIDERS: PCP Internal Medicine; Visit Provider Internal Medicine Hypertension Specialist | DX: N18.30 Chronic kidney disease, stage 3 unspecified (principal) | CPT/HCPCS: 76775 ==

== ENCOUNTER → 2024-02-16 23:59 | Outpatient (BNV) | payer MEDICARE, SELFPAY ==
--- NOTE | 2024-03-02 20:59 | MHC.OFFVIS ---
Intake Visit Reasons: Remote ICD check- [employer] Allergies red dye [Red Dye] Allergy (Severe, Verified 02/20/24 14:10) HIVES,THROAT CLOSES FROM RED FOOD DYE tape Adverse Reaction (Intermediate, Uncoded 02/20/24 14:10) Redness of Skin PFSH Medical History Diabetic neuropathy Cardiac resynchronization therapy defibrillator (ICER HAND-D) in place History of COVID-19 Paroxysmal atrial fibrillation CHF (congestive heart failure) Left bundle branch block History of uterine cancer Personal history of malignant neoplasm of other parts of uterus Tinea pedis History of cardioversion Cardiomyopathy Coronary arteriosclerosis Ischemic cardiomyopathy Colonoscopy refused Incomplete left bundle branch block (LBBB) Post-menopausal bleeding Type 2 diabetes mellitus with hyperglycemia, with long-term current use of insulin Vitamin D deficiency Mixed dyslipidemia Papanicolaou smear declined Mammogram declined Osteoarthritis, knee Diabetic neuropathy History of esophagitis Mild intermittent asthma History of basal cell carcinoma Osteonecrosis of right hip Hiatal hernia History of cholelithiasis Morbid obesity Essential hypertension Type 2 diabetes mellitus with hyperglycemia, without long-term current use of insulin Irritable bowel syndrome (IBS) Surgical History S/P CLARE-BSO (total abdominal hysterectomy and bilateral salpingo-oophorectomy) S/P cardiac catheterization History of hysterectomy H/O hernia repair Hx of section History of hip surgery Hx of colonoscopy History of cholecystectomy Family History Father Myocardial infarction Cardiovascular disease Mother Diabetes mellitus Essential hypertension Daughter Anxiety disorder Mental health disorder Son Mental health disorder Social History Household Members: Spouse and Children Housing: House Are you a primary acute care nursing assistant to a significant other at home: No Do you presently have visiting nurse or other home services: No Alcohol intake: never Comment: pt refuses alarms Patient Tobacco Use Status: Never used Tobacco e-Cigarette/Vaping Use: Never Used Second Hand Smoke Exposure: No Advance Directives Date on File: 04/08/22 service: No Current occupational status: retired Current occupational exposures/hazards: No Cognitive needs: No Hearing needs: No Vision needs: Yes Office Procedures Cardiac Device Check Cardiac Device Check Details: Bi V AICD Good battery life LEAD SHAREPOINT DEVELOPER 99% No new alerts. 28566-MM Cardiac Device Check, multi lead implantable defibrillator Procedure code (CPT) selection complete Assessment & Plan Assessment & Plan (1) HFrEF (heart failure with reduced ejection fraction): Code(s): I50.20 - Unspecified systolic (congestive) heart failure Category: Medical Plan: Coding Level of Care Code Procedure Only Diagnoses HFrEF (heart failure with reduced ejection fraction) I50.20 CPT Codes Cardiac Device Check - Cardiac Device 6: 77870-QA Cardiac Device Check, multi lead implantable defibrillator ([id number])
== END ==
PROVIDERS: PCP Internal Medicine; Visit Provider Internal Medicine Cardiovascular Disease
DX: I50.20 Unspecified systolic (congestive) heart failure (principal); Z95.810 Presence of automatic (implantable) cardiac defibrillator
CPT/HCPCS: 93295

== ENCOUNTER 2024-02-20 14:09 | Outpatient (AMB) | payer MEDICARE, SELFPAY ==
[2024-02-20 14:23] LABS: Prothrombin Time Whole Bld POC 26.4 sec (11.1-13.5); ~PT, ~INR - Anti Coag Clinic 2.2 (0.9-1.1)
--- NOTE | 2024-02-20 14:27 | MHC.OFFVISCO ---
Intake Intake Visit Reasons: Anticoagulation Allergies red dye [Red Dye] Allergy (Severe, Verified 02/20/24 14:10) HIVES,THROAT CLOSES FROM RED FOOD DYE tape Adverse Reaction (Intermediate, Uncoded 02/20/24 14:10) Redness of Skin Medication List - Last Reconciled 02/20/24 by Jeanna Suarez, RN albuterol sulfate 90 mcg/actuation 180 mcg inhalation Q6H PRN atorvastatin 40 mg PO DAILY blood sugar diagnostic (FreeStyle Lite Strips) As directed check sugar twice a day before meals blood-glucose meter (FreeStyle Lite Meter kit) As directed bumetanide 3 mg PO Q2D@0900 bumetanide 2 mg twice daily alternating with 3 mg twice daily, as before carvedilol 6.25 mg PO BID 90 days cholecalciferol (vitamin D3) 25 mcg PO DAILY clotrimazole 1% (Athlete's Foot (clotrimazole)) 1 appl topical BID 4 weeks dulaglutide (Trulicity) 4.5 mg (0.5 mL) subcut QWEEK flash glucose scanning reader ([employer] Tabatha 2 [place]) As directed flash glucose sensor (FreeStyle Tabatha 2 Sensor kit) APPLY 1 SENSOR TOPICALLY AND LEAVE IN PLACE FOR 14 DAYS TO MONITOR BLOOD GLUCOSE DIRECTED BY THE DOCTOR. CHANGE SENSOR EVERY 14 DAYS insulin degludec (Tresiba FlexTouch U-100 insulin) 42 units (0.42 mL) subcut DAILY insulin lispro (Humalog Tempo Pen (U-100) Insulin) 15 units (0.15 mL) subcut TID insulin NPH isoph U-100 human (Novolin N FlexPen) 23 units (0.23 mL) subcut BID insulin syringe-needle U-100 (BD Veo Insulin Syringe Ultra-Fine) As directed twice a day lancets (FreeStyle Lancets) As directed losartan 25 mg PO DAILY nystatin (Nystop) 1 appl topical BID PRN pen needle, diabetic (BD Ultra-Fine Short Pen Needle) USE 4 times a day Saccharomyces boulardii (Digest Probiotic (S.boulardii)) PO PRN [scale-accommodate weight 300 lbs As directed] spironolactone 25 mg PO DAILY warfarin See Protocol Warfarin 2.5mg tablet, 1 to 2 tablets daily as directed [wheelchair As directed] Nursing Note INR: 2.2 in therapeutic range of 2-3 Medications and supplements reviewed No changes in health, diet, medications, or supplements, Denies any signs and symptoms of bleeding or bruising or clotting. Bleeding, bruising, clotting discussed Nutritional guidance given Dose: 5mg X 5 days and 2.5mg X 2 days F/U INR: 2 weeks Patient verbalizes understanding of instructions given Anti-Coag Initial Assessment Social Hx Patient Tobacco Use Status: Never used Tobacco alcohol intake: never Alcohol intake frequency: does not drink Cardiovascular Hx: HTN, Angina, CAD, CHF, Arrhythmias, Varicose Veins and Other Lung Disease HX: Asthma Endocrine Hx: Diabetes Musculoskeletal Hx: Arthritis Blood Disorder Hx: Hyperlipidemia GI Hx: Ulcers, Bleeding (GI, rectal) and Other Hx: Kidney Disease Neurological Hx: Serious Head Injury and Migraines/Headaches 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 ) Psych. Illness/Depression: No Coding Level of Care Code Est Patient Level 1 Diagnoses Current use of anticoagulant therapy Z79.01 Results AMB INR Fingerstick AMB INR Fingerstick 2.2 Last Edit by Jeanna Suarez, RN on 02/20/24 14:20 interface delay Assessment & Plan Assessment & Plan (1) Current use of anticoagulant therapy: Code(s): Z79.01 - correction (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 of anticoagulants Category: Medical
== END 2024-02-20 14:31 | disposition home or self-care (01) ==
LOC: HO.ACS 14:09
PROVIDERS: PCP Internal Medicine; Visit Provider Internal Medicine
DX: Z79.01 Long term (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 of anticoagulants (principal)

== ENCOUNTER → 2024-02-20 14:09 | Outpatient (BNVA) | payer MEDICARE, SELFPAY | PROVIDERS: PCP Internal Medicine; Visit Provider Internal Medicine | DX: I48.0 Paroxysmal atrial fibrillation (principal); Z79.01 Long term (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 of anticoagulants; Z51.81 Encounter for therapeutic drug level monitoring | CPT/HCPCS: 85610; 99211 ==

== ENCOUNTER 2024-03-19 13:55 | Outpatient (AMB) | payer MEDICARE, SELFPAY ==
[2024-03-19 14:07] LABS: Prothrombin Time Whole Bld POC 16.4 sec (11.1-13.5); ~PT, ~INR - Anti Coag Clinic 1.4 (0.9-1.1)
--- NOTE | 2024-03-19 14:17 | MHC.OFFVISCO ---
Intake Intake Visit Reasons: Anticoagulation Allergies red dye [Red Dye] Allergy (Severe, Verified 03/19/24 13:59) HIVES,THROAT CLOSES FROM RED FOOD DYE tape Adverse Reaction (Intermediate, Uncoded 03/19/24 13:59) Redness of Skin Medication List - Last Reconciled 03/19/24 by Marybeth Timmons RN albuterol sulfate 90 mcg/actuation 180 mcg inhalation Q6H PRN atorvastatin 40 mg PO DAILY blood sugar diagnostic (FreeStyle Lite Strips) As directed check sugar twice a day before meals blood-glucose meter (FreeStyle Lite Meter kit) As directed bumetanide 3 mg PO Q2D@0900 bumetanide 2 mg twice daily alternating with 3 mg twice daily, as before carvedilol 6.25 mg PO BID 90 days cholecalciferol (vitamin D3) 25 mcg PO DAILY clotrimazole 1% (Athlete's Foot (clotrimazole)) 1 appl topical BID 4 weeks dulaglutide (Trulicity) 4.5 mg (0.5 mL) subcut QWEEK flash glucose scanning reader (Blueprint Software SystemsStyle Tabatha 2 [place]) As directed flash glucose sensor (FreeStyle Tabatha 2 Sensor kit) APPLY 1 SENSOR TOPICALLY AND LEAVE IN PLACE FOR 14 DAYS TO MONITOR BLOOD GLUCOSE DIRECTED BY THE DOCTOR. CHANGE SENSOR EVERY 14 DAYS insulin degludec (Tresiba FlexTouch U-100 insulin) 42 units (0.42 mL) subcut DAILY insulin lispro (Humalog Tempo Pen (U-100) Insulin) 15 units (0.15 mL) subcut TID insulin NPH isoph U-100 human (Novolin N FlexPen) 23 units (0.23 mL) subcut BID insulin syringe-needle U-100 (BD Veo Insulin Syringe Ultra-Fine) As directed twice a day lancets (FreeStyle Lancets) As directed losartan 25 mg PO DAILY nystatin (Nystop) 1 appl topical BID PRN pen needle, diabetic (BD Ultra-Fine Short Pen Needle) USE 4 times a day Saccharomyces boulardii (Digest Probiotic (S.boulardii)) PO PRN [scale-accommodate weight 300 lbs As directed] spironolactone 25 mg PO DAILY 90 days warfarin See Protocol Warfarin 2.5mg tablet, 1 to 2 tablets daily as directed [wheelchair As directed] Nursing Note INR: 1.4 OUT OF therapeutic range Medications and supplements reviewed has been eating more grapes leaves and salads states feeling more tired than usual - enc to discusss with md for f/u appt Denies any signs and symptoms of bleeding or bruising or clotting, no chest pain or sob - but feeling more tired- enc to go to ER with any c/p stroke symptoms or increase in sob Bleeding, bruising, clotting discussed Nutritional guidance given - avoid greens x3 days - and have foods to help raise the INR Dose: she is picking up refill tomorrow only has 5mg for today, will increase to 7.5mg tomorrow then increase weekly dose because she wants to keep eating salads 5mg x 6 days/ 2.5mg x 1 days F/U INR: 03/22/2024 Patient verbalizes understanding of instructions given this msg is being sent to PCP and will have f/u call Anti-Coag Initial Assessment Social Hx Patient Tobacco Use Status: Never used Tobacco alcohol intake: never Alcohol intake frequency: does not drink Cardiovascular Hx: HTN, Angina, CAD, CHF, Arrhythmias, Varicose Veins and Other Lung Disease HX: Asthma Endocrine Hx: Diabetes Musculoskeletal Hx: Arthritis Blood Disorder Hx: Hyperlipidemia GI Hx: Ulcers, Bleeding (GI, rectal) and Other Hx: Kidney Disease Neurological Hx: Serious Head Injury and Migraines/Headaches 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 ) Psych. Illness/Depression: No Coding Level of Care Code Est Patient Level 1 Diagnoses Current use of anticoagulant therapy Z79.01 Results AMB INR Fingerstick AMB INR Fingerstick 1.4 Last Edit by Marybeth Timmons RN on 03/19/24 14:09 manual entry Assessment & Plan Assessment & Plan (1) Current use of anticoagulant therapy: Code(s): Z79.01 - retirement (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 of anticoagulants Category: Medical
== END 2024-03-19 14:23 | disposition home or self-care (01) ==
LOC: HO.ACS 13:55
PROVIDERS: PCP Internal Medicine; Visit Provider Internal Medicine
DX: Z79.01 Long term (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 of anticoagulants (principal)

== ENCOUNTER → 2024-03-19 13:55 | Outpatient (BNVA) | payer MEDICARE, SELFPAY | PROVIDERS: PCP Internal Medicine; Visit Provider Internal Medicine | DX: I48.0 Paroxysmal atrial fibrillation (principal); Z79.01 Long term (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 of anticoagulants; Z51.81 Encounter for therapeutic drug level monitoring | CPT/HCPCS: 85610; 99211 ==

== ENCOUNTER 2024-03-22 13:51 | Outpatient (AMB) | payer MEDICARE, SELFPAY ==
[2024-03-22 14:03] LABS: Prothrombin Time Whole Bld POC 18.8 sec (11.1-13.5); ~PT, ~INR - Anti Coag Clinic 1.6 (0.9-1.1)
--- NOTE | 2024-03-22 14:13 | MHC.OFFVISCO ---
Intake Intake Visit Reasons: Anticoagulation Allergies red dye [Red Dye] Allergy (Severe, Verified 03/22/24 13:56) HIVES,THROAT CLOSES FROM RED FOOD DYE tape Adverse Reaction (Intermediate, Uncoded 03/22/24 13:56) Redness of Skin Medication List - Last Reconciled 03/22/24 by Marybeth Timmons RN albuterol sulfate 90 mcg/actuation 180 mcg inhalation Q6H PRN atorvastatin 40 mg PO DAILY blood sugar diagnostic (FreeStyle Lite Strips) As directed check sugar twice a day before meals blood-glucose meter (FreeStyle Lite Meter kit) As directed bumetanide 3 mg PO Q2D@0900 bumetanide 2 mg twice daily alternating with 3 mg twice daily, as before carvedilol 6.25 mg PO BID 90 days cholecalciferol (vitamin D3) 25 mcg PO DAILY clotrimazole 1% (Athlete's Foot (clotrimazole)) 1 appl topical BID 4 weeks dulaglutide (Trulicity) 4.5 mg (0.5 mL) subcut QWEEK flash glucose scanning reader (Ak[employer] Tabatha 2 [place]) As directed flash glucose sensor (FreeStyle Tabatha 2 Sensor kit) APPLY 1 SENSOR TOPICALLY AND LEAVE IN PLACE FOR 14 DAYS TO MONITOR BLOOD GLUCOSE DIRECTED BY THE DOCTOR. CHANGE SENSOR EVERY 14 DAYS insulin degludec (Tresiba FlexTouch U-100 insulin) 42 units (0.42 mL) subcut DAILY insulin lispro (Humalog Tempo Pen (U-100) Insulin) 15 units (0.15 mL) subcut TID insulin NPH isoph U-100 human (Novolin N FlexPen) 23 units (0.23 mL) subcut BID insulin syringe-needle U-100 (BD Veo Insulin Syringe Ultra-Fine) As directed twice a day lancets (FreeStyle Lancets) As directed losartan 25 mg PO DAILY nystatin (Nystop) 1 appl topical BID PRN pen needle, diabetic (BD Ultra-Fine Short Pen Needle) USE 4 times a day Saccharomyces boulardii (Digest Probiotic (S.boulardii)) PO PRN [scale-accommodate weight 300 lbs As directed] spironolactone 25 mg PO DAILY 90 days warfarin See Protocol Warfarin 2.5mg tablet, 1 to 2 tablets daily as directed [wheelchair As directed] Nursing Note INR: 1.6 in therapeutic range Medications and supplements reviewed States feels tiered and occ has twinge of heartburn - enc pt if persists, develops c/p or any stroke like symptoms to go to ER Denies any signs and symptoms of bleeding or bruising or clotting. Bleeding, bruising, clotting discussed Nutritional guidance given- AVOID GREENS X 2 MORE DAYS AND EAT FOODS TO HELP RAISE THE INR Dose: KEEP INCREASED DOSE 5MG X 6DAYS/ 2.5MG X 1 DAY F/U INR: 03/25/2024 Patient verbalizes understanding of instructions given Anti-Coag Initial Assessment Social Hx Patient Tobacco Use Status: Never used Tobacco alcohol intake: never Alcohol intake frequency: does not drink Cardiovascular Hx: HTN, Angina, CAD, CHF, Arrhythmias, Varicose Veins and Other Lung Disease HX: Asthma Endocrine Hx: Diabetes Musculoskeletal Hx: Arthritis Blood Disorder Hx: Hyperlipidemia GI Hx: Ulcers, Bleeding (GI, rectal) and Other Hx: Kidney Disease Neurological Hx: Serious Head Injury and Migraines/Headaches 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 ) Psych. Illness/Depression: No Coding Level of Care Code Est Patient Level 1 Diagnoses Current use of anticoagulant therapy Z79.01 Results AMB INR Fingerstick AMB INR Fingerstick 1.6 Last Edit by Marybeth Timmons RN on 03/22/24 14:05 manual entry Assessment & Plan Assessment & Plan (1) Current use of anticoagulant therapy: Code(s): Z79.01 - long term (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 of anticoagulants Category: Medical
== END 2024-03-22 14:18 | disposition home or self-care (01) ==
LOC: HO.ACS 13:51
PROVIDERS: PCP Internal Medicine; Visit Provider Internal Medicine
DX: Z79.01 Long term (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 of anticoagulants (principal)

== ENCOUNTER → 2024-03-22 13:51 | Outpatient (BNVA) | payer MEDICARE, SELFPAY | PROVIDERS: PCP Internal Medicine; Visit Provider Internal Medicine | DX: I48.0 Paroxysmal atrial fibrillation (principal); Z79.01 Long term (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 of anticoagulants; Z51.81 Encounter for therapeutic drug level monitoring | CPT/HCPCS: 85610; 99211 ==

== ENCOUNTER 2024-03-25 14:10 | Outpatient (AMB) | payer MEDICARE, SELFPAY ==
[2024-03-25 14:32] LABS: Prothrombin Time Whole Bld POC 21.2 sec (11.1-13.5); ~PT, ~INR - Anti Coag Clinic 1.8 (0.9-1.1)
--- NOTE | 2024-03-25 14:33 | MHC.OFFVISCO ---
Intake Intake Visit Reasons: Anticoagulation Allergies red dye [Red Dye] Allergy (Severe, Verified 03/25/24 14:17) HIVES,THROAT CLOSES FROM RED FOOD DYE tape Adverse Reaction (Intermediate, Uncoded 03/25/24 14:17) Redness of Skin Medication List - Last Reconciled 03/25/24 by Jeanna Suarez, RN albuterol sulfate 90 mcg/actuation 180 mcg inhalation Q6H PRN atorvastatin 40 mg PO DAILY blood sugar diagnostic (FreeStyle Lite Strips) As directed check sugar twice a day before meals blood-glucose meter (FreeStyle Lite Meter kit) As directed bumetanide 3 mg PO Q2D@0900 bumetanide 2 mg twice daily alternating with 3 mg twice daily, as before carvedilol 6.25 mg PO BID 90 days cholecalciferol (vitamin D3) 25 mcg PO DAILY clotrimazole 1% (Athlete's Foot (clotrimazole)) 1 appl topical BID 4 weeks dulaglutide (Trulicity) 4.5 mg (0.5 mL) subcut QWEEK flash glucose scanning reader (Park[employer]Style Tabatha 2 [place]) As directed flash glucose sensor (FreeStyle Tabatha 2 Sensor kit) APPLY 1 SENSOR TOPICALLY AND LEAVE IN PLACE FOR 14 DAYS TO MONITOR BLOOD GLUCOSE DIRECTED BY THE DOCTOR. CHANGE SENSOR EVERY 14 DAYS insulin degludec (Tresiba FlexTouch U-100 insulin) 42 units (0.42 mL) subcut DAILY insulin lispro (Humalog Tempo Pen (U-100) Insulin) 15 units (0.15 mL) subcut TID insulin NPH isoph U-100 human (Novolin N FlexPen) 23 units (0.23 mL) subcut BID insulin syringe-needle U-100 (BD Veo Insulin Syringe Ultra-Fine) As directed twice a day lancets (FreeStyle Lancets) As directed losartan 25 mg PO DAILY nystatin (Nystop) 1 appl topical BID PRN pen needle, diabetic (BD Ultra-Fine Short Pen Needle) USE 4 times a day Saccharomyces boulardii (Digest Probiotic (S.boulardii)) PO PRN [scale-accommodate weight 300 lbs As directed] spironolactone 25 mg PO DAILY 90 days warfarin See Protocol Warfarin 2.5mg tablet, 1 to 2 tablets daily as directed [wheelchair As directed] Nursing Note INR: 1.8 in therapeutic range of 2-3 Medications and supplements reviewed No changes in health, diet, medications, or supplements, Denies any signs and symptoms of bleeding or bruising or clotting. Bleeding, bruising, clotting discussed Nutritional guidance given to avoid greens X 2 days and to have a serving of foods that raise the INR each day X 2 days. Food list reviewed. Dose: increase weekly dose by 2.5mg to 5mg daily F/U INR: 1 week Patient verbalizes understanding of instructions given Anti-Coag Initial Assessment Social Hx Patient Tobacco Use Status: Never used Tobacco alcohol intake: never Alcohol intake frequency: does not drink Cardiovascular Hx: HTN, Angina, CAD, CHF, Arrhythmias, Varicose Veins and Other Lung Disease HX: Asthma Endocrine Hx: Diabetes Musculoskeletal Hx: Arthritis Blood Disorder Hx: Hyperlipidemia GI Hx: Ulcers, Bleeding (GI, rectal) and Other Hx: Kidney Disease Neurological Hx: Serious Head Injury and Migraines/Headaches 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 ) Psych. Illness/Depression: No Coding Level of Care Code Est Patient Level 1 Diagnoses Current use of anticoagulant therapy Z79.01 Results AMB INR Fingerstick AMB INR Fingerstick 1.8 Last Edit by Jeanna Suarez RN on 03/25/24 14:27 interface delay Assessment & Plan Assessment & Plan (1) Current use of anticoagulant therapy: Code(s): Z79.01 - halfway (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 of anticoagulants Category: Medical
== END 2024-03-25 14:40 | disposition home or self-care (01) ==
LOC: HO.ACS 14:10
PROVIDERS: PCP Internal Medicine; Visit Provider Internal Medicine
DX: Z79.01 Long term (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 of anticoagulants (principal)

== ENCOUNTER → 2024-03-25 14:10 | Outpatient (BNVA) | payer MEDICARE, SELFPAY | PROVIDERS: PCP Internal Medicine; Visit Provider Internal Medicine | DX: I48.0 Paroxysmal atrial fibrillation (principal); Z79.01 Long term (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 of anticoagulants; Z51.81 Encounter for therapeutic drug level monitoring | CPT/HCPCS: 85610; 99211 ==

== ENCOUNTER 2024-04-01 13:56 | Outpatient (AMB) | payer MEDICARE, SELFPAY ==
[2024-04-01 14:09] LABS: Prothrombin Time Whole Bld POC 24.8 sec (11.1-13.5); ~PT, ~INR - Anti Coag Clinic 2.1 (0.9-1.1)
--- NOTE | 2024-04-01 14:14 | MHC.OFFVISCO ---
Intake Intake Visit Reasons: Anticoagulation Allergies red dye [Red Dye] Allergy (Severe, Verified 04/01/24 14:01) HIVES,THROAT CLOSES FROM RED FOOD DYE tape Adverse Reaction (Intermediate, Uncoded 04/01/24 14:01) Redness of Skin Nursing Note INR: 2.1 in therapeutic range of 2-3 Medications and supplements reviewed No changes in health, diet, medications, or supplements, Denies any signs and symptoms of bleeding or bruising or clotting. Bleeding, bruising, clotting discussed Nutritional guidance given to hold greens today and tomorrow then to balance foods that raise with foods that lower the INR Dose: 5mg daily F/U INR: 2 weeks Patient verbalizes understanding of instructions given Anti-Coag Initial Assessment Social Hx Patient Tobacco Use Status: Never used Tobacco alcohol intake: never Alcohol intake frequency: does not drink Cardiovascular Hx: HTN, Angina, CAD, CHF, Arrhythmias, Varicose Veins and Other Lung Disease HX: Asthma Endocrine Hx: Diabetes Musculoskeletal Hx: Arthritis Blood Disorder Hx: Hyperlipidemia GI Hx: Ulcers, Bleeding (GI, rectal) and Other Hx: Kidney Disease Neurological Hx: Serious Head Injury and Migraines/Headaches 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 ) Psych. Illness/Depression: No Coding Level of Care Code Est Patient Level 1 Diagnoses Current use of anticoagulant therapy Z79.01 Results AMB INR Fingerstick AMB INR Fingerstick 2.1 Last Edit by Jeanna Suarez, RN on 04/01/24 14:10 interface delay Assessment & Plan Assessment & Plan (1) Current use of anticoagulant therapy: Code(s): Z79.01 - skilled nursing (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 of anticoagulants Category: Medical
== END 2024-04-01 14:17 | disposition home or self-care (01) ==
LOC: HO.ACS 13:56
PROVIDERS: PCP Internal Medicine; Visit Provider Internal Medicine
DX: Z79.01 Long term (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 of anticoagulants (principal)

== ENCOUNTER → 2024-04-01 13:56 | Outpatient (BNVA) | payer MEDICARE, SELFPAY | PROVIDERS: PCP Internal Medicine; Visit Provider Internal Medicine | DX: I48.0 Paroxysmal atrial fibrillation (principal); Z79.01 Long term (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 of anticoagulants; Z51.81 Encounter for therapeutic drug level monitoring | CPT/HCPCS: 85610; 99211 ==

== ENCOUNTER 2024-04-07 10:56 | Outpatient (AMB) | payer MEDICARE, SELFPAY ==
[2024-04-07 10:58] VITALS: BP 130/64; PULSE 68; BMI 41.1
--- NOTE | 2024-04-07 10:58 | MHC.OFFVIS ---
Vital Signs 04/07/24 10:58 Height 5 ft 4 in Weight 239 lb 6.752 oz BMI 41.1 BP 130/64 Blood Pressure Location Rt brachial Position Sitting Pulse 68 Pulse Source Monitor Intake Visit Reasons: 4 mth f/up echoh Intake Note: 4 mth f/up-echo Hospital Cook Required: No Accompanied by: Self / Same As Patient Allergies red dye [Red Dye] Allergy (Severe, Verified 04/01/24 14:01) HIVES,THROAT CLOSES FROM RED FOOD DYE tape Adverse Reaction (Intermediate, Uncoded 04/01/24 14:01) Redness of Skin Medication List - Last Reconciled 04/07/24 by Cesar Storey MD albuterol sulfate 90 mcg/actuation 180 mcg inhalation Q6H PRN atorvastatin 40 mg PO DAILY blood sugar diagnostic (FreeStyle Lite Strips) As directed check sugar twice a day before meals blood-glucose meter (FreeStyle Lite Meter kit) As directed bumetanide 3 mg PO Q2D@0900 bumetanide 2 mg twice daily alternating with 3 mg twice daily, as before carvedilol 6.25 mg PO BID 90 days cholecalciferol (vitamin D3) 25 mcg PO DAILY clotrimazole 1% (Athlete's Foot (clotrimazole)) 1 appl topical BID 4 weeks dulaglutide (Trulicity) 4.5 mg (0.5 mL) subcut QWEEK flash glucose scanning reader (ReaMetrixStyle Tabatha 2 [place]) As directed flash glucose sensor (FreeStyle Tabatha 2 Sensor kit) APPLY 1 SENSOR TOPICALLY AND LEAVE IN PLACE FOR 14 DAYS TO MONITOR BLOOD GLUCOSE DIRECTED BY THE DOCTOR. CHANGE SENSOR EVERY 14 DAYS insulin degludec (Tresiba FlexTouch U-100 insulin) 42 units (0.42 mL) subcut DAILY insulin lispro (Humalog Tempo Pen (U-100) Insulin) 15 units (0.15 mL) subcut TID insulin NPH isoph U-100 human (Novolin N FlexPen) 23 units (0.23 mL) subcut BID insulin syringe-needle U-100 (BD Veo Insulin Syringe Ultra-Fine) As directed twice a day lancets (FreeStyle Lancets) As directed losartan 25 mg PO DAILY nystatin (Nystop) 1 appl topical BID PRN pen needle, diabetic (BD Ultra-Fine Short Pen Needle) USE 4 times a day Saccharomyces boulardii (Digest Probiotic (S.boulardii)) PO PRN [scale-accommodate weight 300 lbs As directed] spironolactone 25 mg PO DAILY 90 days warfarin See Protocol Warfarin 2.5mg tablet, 1 to 2 tablets daily as directed [wheelchair As directed] HPI Comments Details: 69-year-old female with 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 She previously had atrial fibrillation for which she underwent cardioversion was started on amiodarone. She had successful cardioversion but unfortunately developed AFib again. She was brought back and cardioverted but later developed 2-1 atrial tachycardia/flutter. She was discharged home medication with a plan to let her be loaded with amiodarone and to re-attempt cardioversion. Unfortunately she developed significant heart failure volume overload and was readmitted to the hospital. She underwent diuresis in the hospital with medication adjustment and eventually underwent cardioversion and has been in sinus rhythm since then. Her blood pressure was low in the hospital and some of her medications were held including valsartan and carvedilol. It appears she was supposed to be on torsemide but when she was discharged home she was put back on her old drug Bumex 2 mg b.i.d.. She also continues to take carvedilol 6.25 mg twice a day along with amiodarone and spironolactone 25 mg once a day. She is here for follow-up. She is denying any significant shortness of breath. She has some fatigue and peripheral edema. She is saying she sleeps on couple of pillows and has not tried to lay flat in bed. She has not been monitoring her weight at home because she does not have a scale at home but at different office visits she felt that her fate was stable. Since May she has gained approximately 7 lb. Repeat echocardiography has shown EF of 30 35%. She is still has LV dilation but ejection fraction is improving. : She returns for follow-up. She is saying she has been doing fine. No chest discomfort or significant shortness of breath. Blood pressure control is good. She is saying off and on she notices swelling in her legs. She is taking 2 mg Bumex twice a day alternating with 3 mg of Bumex twice a day. She has not been laying down flat in bed because she gets significant orthopnea. She also has daytime somnolence and snoring. She did not have sleep study in the past. Continues to be in sinus rhythm but has left bundle-branch block with QRS duration of 154 milliseconds. 12/03/2023: She is here for follow-up. She has been following with our nurse practitioner in the interim. She had ablation done at [facility] and now also has [employer] D. She has been doing well and doing quite good from cardiovascular viewpoint. No shortness of breath or orthopnea. Off and on she gets some lower extremity edema but overall has been quite stable with Bumex 2 mg b.i.d. and 3 mg b.i.d. on alternate days. No chest discomfort. She is on losartan 25 and spironolactone. Blood pressure is well controlled. Last echocardiography has shown EF of 25-30% in 09/2023. 04/07/2024: She is here for follow-up. She underwent ablation and [employer] and since then ejection fraction has improved to 50-55%. She has been doing clinically quite well. Off and on notices some swelling in the legs but nothing is progressive. Doing quite well at this point. No anginal symptoms. [facility] Medical History Diabetic neuropathy Cardiac resynchronization therapy defibrillator ([employer]-D) in place History of COVID-19 Paroxysmal atrial fibrillation CHF (congestive heart failure) Left bundle branch block History of uterine cancer Personal history of malignant neoplasm of other parts of uterus Tinea pedis History of cardioversion Cardiomyopathy Coronary arteriosclerosis Ischemic cardiomyopathy Colonoscopy refused Incomplete left bundle branch block (LBBB) Post-menopausal bleeding Type 2 diabetes mellitus with hyperglycemia, with long-term current use of insulin Vitamin D deficiency Mixed dyslipidemia Papanicolaou smear declined Mammogram declined Osteoarthritis, knee Diabetic neuropathy History of esophagitis Mild intermittent asthma History of basal cell carcinoma Osteonecrosis of right hip Hiatal hernia History of cholelithiasis Morbid obesity Essential hypertension Type 2 diabetes mellitus with hyperglycemia, without long-term current use of insulin Irritable bowel syndrome (IBS) Surgical History S/P CLARE-BSO (total abdominal hysterectomy and bilateral salpingo-oophorectomy) S/P cardiac catheterization History of hysterectomy H/O hernia repair Hx of section History of hip surgery Hx of colonoscopy History of cholecystectomy Family History Father Myocardial infarction Cardiovascular disease Mother Diabetes mellitus Essential hypertension Daughter Anxiety disorder Mental health disorder Son Mental health disorder Social History Household Members: Spouse and Children Housing: House Are you a primary body care manager to a significant other at home: No Do you presently have visiting nurse or other home services: No Alcohol intake: never Comment: pt refuses alarms Patient Tobacco Use Status: Never used Tobacco e-Cigarette/Vaping Use: Never Used Second Hand Smoke Exposure: No Advance Directives Date on File: 04/08/22 service: No Current occupational status: retired Current occupational exposures/hazards: No Cognitive needs: No Hearing needs: No Vision needs: Yes Review of Systems Const Denies chills, Denies fatigue, Denies fever(s), Denies frequent falls, Denies weakness, Denies weight gain and Denies weight loss ENT Denies dizziness Card Denies chest pain, Denies leg edema, Denies lightheadedness, Denies palpitations, Denies dyspnea and Denies dyspnea on exertion Resp Denies cough, Denies dyspnea and Denies dyspnea on exertion GI Denies hematochezia Musc Denies abnormal gait, Denies muscle weakness, Denies numbness, Denies radiating pain into limb and Denies tingling Neuro Denies abnormal gait, Denies dizziness, Denies frequent falls, Denies numbness, Denies tingling and Denies weakness Endo Denies fatigue and Denies palpitations Physical Exam Vital Signs: Last Vital Signs Pulse 68 04/07/24 10:58 BP 130/64 04/07/24 10:58 BMI result Body Mass Index 41.1 GENERAL APPEARANCE: In no acute distress. NECK: no carotid bruit, no JVD. SKIN: no suspicious lesions, warm and dry. HEART: no murmurs, regular rate and rhythm. LUNGS: Clear to auscultation. ABDOMEN: soft, nontender. EXTREMITIES: Mild edema. PERIPHERAL PULSES: equal. NEUROLOGIC: No gross deficits, AAO X 3 Office Procedures EKG Details: Sinus rhythm 68 beats per minute, rightward axis, lateral infarct, QTC 495 milliseconds. [id number], Complete Assessment & Plan Assessment & Plan (1) Cardiac resynchronization therapy defibrillator ([employer]-D) in place: Comment: [employer] implanted 07/25/2023 Code(s): Z95.810 - Presence of automatic (implantable) cardiac defibrillator Category: Medical (2) Paroxysmal atrial fibrillation: Code(s): I48.0 - Paroxysmal atrial fibrillation Category: Medical (3) HFrEF (heart failure with reduced ejection fraction): Code(s): I50.20 - Unspecified systolic (congestive) heart failure Category: Medical (4) CKD (chronic kidney disease) stage 3, GFR 30-59 ml/min: Code(s): N18.30 - Chronic kidney disease, stage 3 unspecified Category: Medical Qualifiers: Chronic kidney disease stage 3 subtype: unspecified whether 3a or 3b Qualified Code(s): N18.30 - Chronic kidney disease, stage 3 unspecified Plan 69-year-old female who is here for follow-up. She has known history of cardiomyopathy which is more nonischemic then ischemic. She does have underlying coronary disease. Mostly presentations were in the setting of atrial arrhythmia with worsening ejection fractions. She was cardioverted a few times in the past and was on amiodarone and eventually underwent ablation at [facility]. She is now status post [employer]. She had at least moderate coronary disease previously but did not have any anginal symptoms and mostly presentations were clearly tachycardia related. She has been doing well. Blood pressure is well controlled. She is fairly euvolemic with the current Bumex dosing. Repeat echo has shown significant improvement in EF to 50-55%. She is doing well on the current regimen and we will continue this for now. She will see us back in few months. Thank you for allowing me to participate in the care of your patient. Please feel free to contact me if you have any questions. Coding Level of Care Code Est Pt Level 4 (15066) Diagnoses Cardiac resynchronization therapy defibrillator ([employer]-D) in place Z95.810 Paroxysmal atrial fibrillation I48.0 HFrEF (heart failure with reduced ejection fraction) I50.20 Stage 3 chronic kidney disease, unspecified whether stage 3a or 3b CKD N18.30 Chronic kidney disease stage 3 subtype: unspecified whether 3a or 3b CPT Codes EKG - CPT: 06584-[id number], Complete ([id number])
--- OUTSIDE RECORDS SUMMARY | 2024-04-07 12:26 | XMS_ITS | Clinical Summary ---
Author Organization [facility] Facility Address [address] [address] Care Team Providers Care Manager Consumer Name Role Phone Jo Menjivar MD Primary Care Provider [phone] Social History Tobacco Use Types Packs/Day Years Used Date Smoking Tobacco: Never Assessed Comments Unknown Sex and Gender Information Value Date Recorded Sex Assigned at Not on file Legal Sex Female 8:55 AM EST Gender Identity Not on file Sexual Orientation Not on file Plan of Treatment Health Maintenance Due Date Last Done Comments Breast Cancer Screening 1955 Pneumococcal Vaccine: 65+ Ye ars (1 of 2 - PCV) 02/19/1962 Colorectal Cancer Screening: Annual FOBT 02/19/2005 Colorectal Cancer Screening: Colonoscopy 02/19/2005 Colorectal Cancer Screening: Sigmoidoscopy 02/19/2005 Diabetes: Hemoglobin A1C 05/10/2022 Diabetes: Ophthalmology Exam 05/10/2022 Diabetes: Pedal Pulse Checked 05/10/2022 Diabetes: Sensory Foot Exam 05/10/2022 Diabetes: Visual Foot Exam 05/10/2022 Influenza Vaccine (#1) 2023 Hepatitis B Vaccine Aged Out No longe r eligible based on patient's age to complete this topic Insurance [facility] [employer] Care Teams Manager Consumer Relationship Specialty Start Date End Date Jo Menjivar MD [address] [place], [place] [id number] PCP - General Internal Medicine 04/30/22
== END 2024-04-07 11:45 | disposition home or self-care (01) ==
PROVIDERS: PCP Internal Medicine; Visit Provider Internal Medicine Cardiovascular Disease
DX: Z95.810 Presence of automatic (implantable) cardiac defibrillator (principal); I48.0 Paroxysmal atrial fibrillation; I50.20 Unspecified systolic (congestive) heart failure; N18.30 Chronic kidney disease, stage 3 unspecified
CPT/HCPCS: 93010; 99214

== ENCOUNTER → 2024-04-07 10:56 | Outpatient (BNVA) | payer MEDICARE, SELFPAY | PROVIDERS: PCP Internal Medicine; Visit Provider Internal Medicine Cardiovascular Disease | DX: I48.0 Paroxysmal atrial fibrillation (principal); I50.20 Unspecified systolic (congestive) heart failure; N18.30 Chronic kidney disease, stage 3 unspecified; Z95.810 Presence of automatic (implantable) cardiac defibrillator | CPT/HCPCS: 93005; 99212 ==

== ENCOUNTER 2024-04-09 13:22 | Outpatient (AMB) | payer MEDICARE, SELFPAY ==
[2024-04-09 13:47] VITALS: BP 118/72; PULSE 73; BMI 40.9
--- NOTE | 2024-04-09 13:47 | A.OFFVIS_ITS ---
Vital Signs 04/09/24 13:47 Height 5 ft 4 in Weight 238 lb 1.588 oz BMI 40.9 BP 118/72 Blood Pressure Location Rt brachial Position Sitting Pulse 73 Pulse Source Pulse Oximeter Intake Visit Reasons: T2DM Intake Note: Patient presents today for a follow-up on Type 2 Diabetes Mellitus: Last Diabetic eye exam was on: DUE Last Podiatry exam was on: Patient does not see a Manager Travel Most recent HbA1c: 9.1%, 04/09/2024 Random Glucose- 144 mg/dL, Today Allergies red dye [Red Dye] Allergy (Severe, Verified 04/01/24 14:01) HIVES,THROAT CLOSES FROM RED FOOD DYE tape Adverse Reaction (Intermediate, Uncoded 04/01/24 14:01) Redness of Skin Medication List - Last Reconciled 04/09/24 by ROBBIE Rangel albuterol sulfate 90 mcg/actuation 180 mcg inhalation Q6H PRN atorvastatin 40 mg PO DAILY blood sugar diagnostic (FreeStyle Lite Strips) As directed check sugar twice a day before meals blood-glucose meter (FreeStyle Lite Meter kit) As directed bumetanide 3 mg PO Q2D@0900 bumetanide 2 mg twice daily alternating with 3 mg twice daily, as before carvedilol 6.25 mg PO BID 90 days cholecalciferol (vitamin D3) 25 mcg PO DAILY clotrimazole 1% (Athlete's Foot (clotrimazole)) 1 appl topical BID 4 weeks dulaglutide (Trulicity) 4.5 mg (0.5 mL) subcut QWEEK flash glucose scanning reader (FreeStyle Tabatha 2 [place]) As directed flash glucose sensor (FreeStyle Tabatha 2 Sensor kit) APPLY 1 SENSOR TOPICALLY AND LEAVE IN PLACE FOR 14 DAYS TO MONITOR BLOOD GLUCOSE DIRECTED BY THE DOCTOR. CHANGE SENSOR EVERY 14 DAYS insulin lispro (Humalog Tempo Pen (U-100) Insulin) 18 units subcut TID insulin NPH isoph U-100 human (Novolin N FlexPen) 26 units subcut BID insulin syringe-needle U-100 (BD Veo Insulin Syringe Ultra-Fine) As directed twice a day lancets (FreeStyle Lancets) As directed losartan 25 mg PO DAILY nystatin (Nystop) 1 appl topical BID PRN pen needle, diabetic (BD Ultra-Fine Short Pen Needle) USE 4 times a day Saccharomyces boulardii (Digest Probiotic (S.boulardii)) PO PRN [scale-accommodate weight 300 lbs As directed] spironolactone 25 mg PO DAILY 90 days warfarin See Protocol Warfarin 2.5mg tablet, 1 to 2 tablets daily as directed [wheelchair As directed] HPI Comments Details: This is a 69-year-old female with a past medical history of PAD, paroxysmal atrial fibrillation, CAD, chronic anticoagulation, CKD stage 3, heart failure with reduced ejection fraction, type 2 diabetes, hypertension and hyperlipidemia presenting for diabetic management. Her hemoglobin A1c is 9.1% today up from 8.8%. POC 144. Current regimen is insulin NPH 23 units twice daily (insurance does not cover alternatives), Humalog 15 units 2-3 times daily before meals (first meal usually at 11am) and Trulicity 3 mg weekly (4.5 mg was submitted, but it was not dispensed because it needs to go through [facility] [employer]). She denies side effects on the regimen. Tabatha 2 download reviewed CGM active 41% Average glucose 189 Glucose variability 21.7% Very high 10% High 48% Target range 42% 0% hypoglycemia The pattern is hyperglycemia after she eats the first meal of the day which lasts until the following morning and improved blood sugars between 9 and 12:00. Microvascular complications: Nephropathy (CKD), neuropathy Macrovascular complications: PAD, CAD Eye exam is up-to-date. ROS: Constitutional: No unexplained weight loss, fever, chills, fatigue or night sweats. Eyes: No vision changes Respiratory: No shortness of breath Cardiovascular: No chest pain Gastrointestinal: No abdominal pain Neurologic: No headache, dizziness, syncope Skin: No open wounds. Physical exam: Constitutional: Alert, in no distress. Eyes: Pupils are equal, round and reactive to light. Extraocular muscles intact.. Neck: Supple, Full range of motion. No lymphadenopathy. No palpable thyroid masses. Respiratory: Clear to auscultation. Cardiovascular: S1 S2 regular. No murmurs. [facility] Medical History Diabetic neuropathy Cardiac resynchronization therapy defibrillator (CONCRETE FORM SETTER-D) in place History of COVID-19 Paroxysmal atrial fibrillation CHF (congestive heart failure) Left bundle branch block History of uterine cancer Personal history of malignant neoplasm of other parts of uterus Tinea pedis History of cardioversion Cardiomyopathy Coronary arteriosclerosis Ischemic cardiomyopathy Colonoscopy refused Incomplete left bundle branch block (LBBB) Post-menopausal bleeding Type 2 diabetes mellitus with hyperglycemia, with long-term current use of insulin Vitamin D deficiency Mixed dyslipidemia Papanicolaou smear declined Mammogram declined Osteoarthritis, knee Diabetic neuropathy History of esophagitis Mild intermittent asthma History of basal cell carcinoma Osteonecrosis of right hip Hiatal hernia History of cholelithiasis Morbid obesity Essential hypertension Type 2 diabetes mellitus with hyperglycemia, without long-term current use of insulin Irritable bowel syndrome (IBS) Surgical History S/P CLARE-BSO (total abdominal hysterectomy and bilateral salpingo-oophorectomy) S/P cardiac catheterization History of hysterectomy H/O hernia repair Hx of section History of hip surgery Hx of colonoscopy History of cholecystectomy Family History Father Myocardial infarction Cardiovascular disease Mother Diabetes mellitus Essential hypertension Daughter Anxiety disorder Mental health disorder Son Mental health disorder Social History Household Members: Spouse and Children Housing: House Are you a primary animal care specialist to a significant other at home: No Do you presently have visiting nurse or other home services: No Alcohol intake: never Comment: pt refuses alarms Patient Tobacco Use Status: Never used Tobacco e-Cigarette/Vaping Use: Never Used Second Hand Smoke Exposure: No Advance Directives Date on File: 04/08/22 service: No Current occupational status: retired Current occupational exposures/hazards: No Cognitive needs: No Hearing needs: No Vision needs: Yes Physical Exam Vital Signs: Last Vital Signs Pulse 73 04/09/24 13:47 BP 118/72 04/09/24 13:47 BMI result Body Mass Index 40.9 Results Reviewed Results Reviewed: Laboratory Last Values Glucose (Clinic) 76 mg/dL (60-115) 04/09/24 13:59 Assessment & Plan Assessment & Plan (1) Type 2 diabetes mellitus with hyperglycemia, with long-term current use of insulin: Code(s): E11.65 - Type 2 diabetes mellitus with hyperglycemia; Z79.4 - assisted (c urrent) use of insulin Category: Medical (2) Diabetic neuropathy: Code(s): E11.40 - Type 2 diabetes mellitus with diabetic neuropathy, unspecified Category: Medical Qualifiers: Diabetes mellitus complication detail: diabetic polyneuropathy Diabetes mellitus type: type 2 Qualified Code(s): E11.42 - Type 2 diabetes mellitus with diabetic polyneuropathy Plan In summary this is a 68-year-old female with uncontrolled type 2 diabetes with micro and macrovascular complications on her current regimen. Increase NPH insulin to 26 units twice daily. Increase Trulicity to 4.5 mg weekly. Printed Rx will be submitted to [facility] [employer]. Increase Humalog to 18 units before meals. She is compliant with glucose monitoring and brings her sensor to appointments. Diabetic diet reviewed. Declines referral to diabetic education/dietitian at this time. If you experience low blood sugar, treat this by eating a chewable fruit candy like skittles or jelly beans (about 8 pieces), 4 ounces (1/2 cup) of fruit juice (not diet), 1 tablespoon of honey or 4 glucose tablets. If your blood sugar is under 50, take double the amount of one of the above. Recheck your blood sugar in 15 minutes. Declined Rx for glucose tablets. Follow up in 4-6 weeks to review medication changes. Medications: Refilled dulaglutide (Trulicity) 4.5 mg (0.5 mL) subcut QWEEK 2 mL 5RF Discontinued insulin degludec (Tresiba FlexTouch U-100 insulin) Replaces insulin NPH (Novolin) Discontinued Reason: Doctor's Order 42 units (0.42 mL) subcut DAILY 15 mL 5RF Coding Level of Care Code Est Pt Level 4 (73814) Complex EM visit Add On G2211 Diagnoses Type 2 diabetes mellitus with hyperglycemia, with long-term current use of insulin E11.65; Z79.4 Diabetic polyneuropathy associated with type 2 diabetes mellitus E11.42 Diabetes mellitus complication detail: diabetic polyneuropathy Diabetes mellitus type: type 2
[2024-04-09 13:56] LABS: Glucose, Whole Blood 144 mg/dL (60-115)
[2024-04-09 14:03] LABS: Glucose, Whole Blood 76 mg/dL (60-115)
--- OUTSIDE RECORDS SUMMARY | 2024-04-09 15:06 | XMS_ITS | Clinical Summary ---
Author Organization [facility] Facility Address [address] [address] Care Team Providers Care Nurse College Name Role Phone Jo Menjivar MD Primary Care Provider [phone]- [phone] Social History Tobacco Use Types Packs/Day Years [...] [facility] Care Teams Nurse College Relationship Specialty Start Date End Date Jo Menjivar MD 1960 [place], [place] [id number] PCP - General Internal Medicine 04/30/22
== END 2024-04-09 14:17 | disposition home or self-care (01) ==
PROVIDERS: PCP Internal Medicine; Visit Provider Physician Assistant Medical
DX: E11.65 Type 2 diabetes mellitus with hyperglycemia (principal); Z79.4 Long term (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 of insulin; E11.42 Type 2 diabetes mellitus with diabetic polyneuropathy

== ENCOUNTER → 2024-04-09 13:22 | Outpatient (BNVA) | payer MEDICARE, SELFPAY | PROVIDERS: PCP Internal Medicine; Visit Provider Physician Assistant Medical | DX: E11.65 Type 2 diabetes mellitus with hyperglycemia (principal); E11.42 Type 2 diabetes mellitus with diabetic polyneuropathy; Z79.4 Long term (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 of insulin | CPT/HCPCS: 82947; 99212 ==

== ENCOUNTER 2024-04-15 13:48 | Outpatient (AMB) | payer MEDICARE, SELFPAY ==
[2024-04-15 13:56] LABS: Prothrombin Time Whole Bld POC 27.3 sec (11.1-13.5); ~PT, ~INR - Anti Coag Clinic 2.3 (0.9-1.1)
--- NOTE | 2024-04-15 14:00 | MHC.OFFVISCO ---
Intake Intake Visit Reasons: Anticoagulation Allergies red dye [Red Dye] Allergy (Severe, Verified 04/15/24 13:52) HIVES,THROAT CLOSES FROM RED FOOD DYE tape Adverse Reaction (Intermediate, Uncoded 04/15/24 13:52) Redness of Skin Medication List - Last Reconciled 04/15/24 by Jeanna Suarez, RN albuterol sulfate 90 mcg/actuation 180 mcg inhalation Q6H PRN atorvastatin 40 mg PO DAILY blood sugar diagnostic (FreeStyle Lite Strips) As directed check sugar twice a day before meals blood-glucose meter (FreeStyle Lite Meter kit) As directed bumetanide 3 mg PO Q2D@0900 bumetanide 2 mg twice daily alternating with 3 mg twice daily, as before carvedilol 6.25 mg PO BID 90 days cholecalciferol (vitamin D3) 25 mcg PO DAILY clotrimazole 1% (Athlete's Foot (clotrimazole)) 1 appl topical BID 4 weeks dulaglutide (Trulicity) 4.5 mg (0.5 mL) subcut QWEEK flash glucose scanning reader ([employer]Style Tabatha 2 [place]) As directed flash glucose sensor (FreeStyle Tabatha 2 Sensor kit) APPLY 1 SENSOR TOPICALLY AND LEAVE IN PLACE FOR 14 DAYS TO MONITOR BLOOD GLUCOSE DIRECTED BY THE DOCTOR. CHANGE SENSOR EVERY 14 DAYS insulin lispro (Humalog Tempo Pen (U-100) Insulin) 18 units subcut TID insulin NPH isoph U-100 human (Novolin N FlexPen) 26 units subcut BID insulin syringe-needle U-100 (BD Veo Insulin Syringe Ultra-Fine) As directed twice a day lancets (FreeStyle Lancets) As directed losartan 25 mg PO DAILY nystatin (Nystop) 1 appl topical BID PRN pen needle, diabetic (BD Ultra-Fine Short Pen Needle) USE 4 times a day Saccharomyces boulardii (Digest Probiotic (S.boulardii)) PO PRN [scale-accommodate weight 300 lbs As directed] spironolactone 25 mg PO DAILY 90 days warfarin See Protocol Warfarin 2.5mg tablet, 1 to 2 tablets daily as directed [wheelchair As directed] Nursing Note INR: 2.3 in therapeutic range of 2-3 Medications and supplements reviewed No changes in health, diet, medications, or supplements, Denies any signs and symptoms of bleeding or bruising or clotting. Bleeding, bruising, clotting discussed Nutritional guidance given Dose: 5mg daily F/U INR: 2 weeks Patient verbalizes understanding of instructions with read back given Anti-Coag Initial Assessment Social Hx Patient Tobacco Use Status: Never used Tobacco alcohol intake: never Alcohol intake frequency: does not drink Cardiovascular Hx: HTN, Angina, CAD, CHF, Arrhythmias, Varicose Veins and Other Lung Disease HX: Asthma Endocrine Hx: Diabetes Musculoskeletal Hx: Arthritis Blood Disorder Hx: Hyperlipidemia GI Hx: Ulcers, Bleeding (GI, rectal) and Other Hx: Kidney Disease Neurological Hx: Serious Head Injury and Migraines/Headaches 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 ) Psych. Illness/Depression: No Coding Level of Care Code Est Patient Level 1 Diagnoses Current use of anticoagulant therapy Z79.01 Assessment & Plan Assessment & Plan (1) Current use of anticoagulant therapy: Code(s): Z79.01 - long-term (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 of anticoagulants Category: Medical
--- OUTSIDE RECORDS SUMMARY | 2024-04-15 17:40 | XMS_ITS | Clinical Summary ---
Author Organization [facility] Facility Address [address] [address] Care Team Providers Care Hotel And Dining Room Cashier Name Role Phone Jo Menjivar MD Primary Care Provider [phone]- [phone] Social History Tobacco Use Types Packs/Day Years [...] [facility]ALTH [facility]IC[facility] Care Teams Hotel And Dining Room Cashier Relationship Specialty Start Date End Date Jo Menjivar MD 1960 [place], [place] [phone] PCP - General Internal Medicine 04/30/22
== END 2024-04-15 14:02 | disposition home or self-care (01) ==
LOC: HO.ACS 13:48
PROVIDERS: PCP Internal Medicine; Visit Provider Internal Medicine
DX: Z79.01 Long term (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 of anticoagulants (principal)

== ENCOUNTER 2024-04-29 14:00 | Outpatient (AMB) | payer MEDICARE, SELFPAY ==
--- OUTSIDE RECORDS SUMMARY | 2024-04-29 14:03 | XMS_ITS | Clinical Summary ---
Author Organization [facility] Facility Address [address] [address] Care Team Providers Care Food Counter Worker Name Role Phone Jo Menjivar MD Primary Care Provider [phone]- [phone] Social History Tobacco Use Types Packs/Day Years [...] [facility] Care Teams Food Counter Worker Relationship Specialty Start Date End Date Jo Menjivar MD 1960 [place], [place] [id number] PCP - General Internal Medicine 04/30/22
[2024-04-29 14:13] LABS: Prothrombin Time Whole Bld POC 16.4 sec (11.1-13.5); ~PT, ~INR - Anti Coag Clinic 1.4 (0.9-1.1)
--- NOTE | 2024-04-29 14:25 | MHC.OFFVISCO ---
Intake Intake Visit Reasons: Anticoagulation Allergies red dye [Red Dye] Allergy (Severe, Verified 04/29/24 14:07) HIVES,THROAT CLOSES FROM RED FOOD DYE tape Adverse Reaction (Intermediate, Uncoded 04/15/24 13:52) Redness of Skin Medication List - Last Reconciled 04/29/24 by Tabatha Gomez, RN albuterol sulfate 90 mcg/actuation 180 mcg inhalation Q6H PRN atorvastatin 40 mg PO DAILY blood sugar diagnostic (FreeStyle Lite Strips) As directed check sugar twice a day before meals blood-glucose meter (FreeStyle Lite Meter kit) As directed bumetanide 3 mg PO Q2D@0900 bumetanide 2 mg twice daily alternating with 3 mg twice daily, as before carvedilol 6.25 mg PO BID cholecalciferol (vitamin D3) 25 mcg PO DAILY clotrimazole 1% (Athlete's Foot (clotrimazole)) 1 appl topical BID 4 weeks dulaglutide (Trulicity) 4.5 mg (0.5 mL) subcut QWEEK flash glucose scanning reader (Axial ExchangeStyle Tabatha 2 [place]) As directed flash glucose sensor (FreeStyle Tabatha 2 Sensor kit) APPLY 1 SENSOR TOPICALLY AND LEAVE IN PLACE FOR 14 DAYS TO MONITOR BLOOD GLUCOSE DIRECTED BY THE DOCTOR. CHANGE SENSOR EVERY 14 DAYS insulin lispro (Humalog Tempo Pen (U-100) Insulin) 18 units subcut TID insulin NPH isoph U-100 human (Novolin N FlexPen) 26 units subcut BID insulin syringe-needle U-100 (BD Veo Insulin Syringe Ultra-Fine) As directed twice a day lancets (FreeStyle Lancets) As directed losartan 25 mg PO DAILY nystatin (Nystop) 1 appl topical BID PRN pen needle, diabetic (BD Ultra-Fine Short Pen Needle) USE 4 times a day Saccharomyces boulardii (Digest Probiotic (S.boulardii)) PO PRN [scale-accommodate weight 300 lbs As directed] spironolactone 25 mg PO DAILY 90 days warfarin See Protocol Warfarin 2.5mg tablet, 1 to 2 tablets daily as directed [wheelchair As directed] Nursing Note PT.IS CERTAIN THAT SHE HAS NOT MISSED ANY DOSES OF WARFARIN. NO CP,SOB OR SX O BLEEDING. BOOST TO 7.5MGM 2 DAYS THEN USUAL DOSE AND FOLLOW-UP HERE IN 1 WEEK. PCP NOTIFIED(NORBERT AND VIA MESSAGING) DIETARY INSTRUCTION GIVEN GOOD UNDERSTANDING OF DOSING INSTR. 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 ) Psych. Illness/Depression: No Coding Level of Care Code Est Patient Level 1 Diagnoses Current use of anticoagulant therapy Z79.01 Assessment & Plan Assessment & Plan (1) Current use of anticoagulant therapy: Code(s): Z79.01 - termite control service representative (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 of anticoagulants Category: Medical
== END 2024-04-29 14:33 | disposition home or self-care (01) ==
LOC: HO.ACS 14:00
PROVIDERS: PCP Internal Medicine; Visit Provider Internal Medicine
DX: Z79.01 Long term (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 of anticoagulants (principal)

== ENCOUNTER → 2024-04-29 14:00 | Outpatient (BNVA) | payer MEDICARE, SELFPAY | PROVIDERS: PCP Internal Medicine; Visit Provider Internal Medicine | DX: I48.0 Paroxysmal atrial fibrillation (principal); Z79.01 Long term (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 of anticoagulants; Z51.81 Encounter for therapeutic drug level monitoring | CPT/HCPCS: 85610; 99211 ==

== ENCOUNTER 2024-05-06 14:02 | Outpatient (AMB) | payer MEDICARE, SELFPAY ==
[2024-05-06 14:11] LABS: ~PT, ~INR - Anti Coag Clinic 1.9 (0.9-1.1)
--- NOTE | 2024-05-06 14:24 | MHC.OFFVISCO ---
Intake Intake Visit Reasons: Anticoagulation Allergies red dye [Red Dye] Allergy (Severe, Verified 05/06/24 14:05) HIVES,THROAT CLOSES FROM RED FOOD DYE tape Adverse Reaction (Intermediate, Uncoded 05/06/24 14:05) Redness of Skin Medication List - Last Reconciled 05/06/24 by Marybeth Timmons RN albuterol sulfate 90 mcg/actuation 180 mcg inhalation Q6H PRN atorvastatin 40 mg PO DAILY blood sugar diagnostic (FreeStyle Lite Strips) As directed check sugar twice a day before meals blood-glucose meter (FreeStyle Lite Meter kit) As directed bumetanide 3 mg PO Q2D@0900 bumetanide 2 mg twice daily alternating with 3 mg twice daily, as before carvedilol 6.25 mg PO BID cholecalciferol (vitamin D3) 25 mcg PO DAILY clotrimazole 1% (Athlete's Foot (clotrimazole)) 1 appl topical BID 4 weeks dulaglutide (Trulicity) 4.5 mg (0.5 mL) subcut QWEEK flash glucose scanning reader (Vantix DiagnosticsStyle Tabatha 2 [place]) As directed flash glucose sensor (FreeStyle Tabatha 2 Sensor kit) APPLY 1 SENSOR TOPICALLY AND LEAVE IN PLACE FOR 14 DAYS TO MONITOR BLOOD GLUCOSE DIRECTED BY THE DOCTOR. CHANGE SENSOR EVERY 14 DAYS insulin lispro (Humalog Tempo Pen (U-100) Insulin) 18 units subcut TID insulin NPH isoph U-100 human (Novolin N FlexPen) 26 units subcut BID insulin syringe-needle U-100 (BD Veo Insulin Syringe Ultra-Fine) As directed twice a day lancets (FreeStyle Lancets) As directed losartan 25 mg PO DAILY nystatin (Nystop) 1 appl topical BID PRN pen needle, diabetic (BD Ultra-Fine Short Pen Needle) USE 4 times a day Saccharomyces boulardii (Digest Probiotic (S.boulardii)) PO PRN [scale-accommodate weight 300 lbs As directed] spironolactone 25 mg PO DAILY 90 days warfarin See Protocol Warfarin 2.5mg tablet, 1 to 2 tablets daily as directed [wheelchair As directed] Nursing Note INR 1.9 out of therapeutic range from 1.4 Medications and supplements reviewed Patient status: well, denies any s/sx of bleeding bruising or clotting Medications or supplements: no changes Diet: good - trying to eat healthy more fruits and vegetabls Denies any signs and symptoms of bleeding or clotting or unusual bruising Bleeding, bruising, clotting discussed Nutritional guidance given: cont to eat a mix that you enjoy Dose: increase slightly for the greens she is wanting to eat 7.5mg x 1 day/ 5mg x 6 days F/U INR Date : 1 week due to labile INR , diet and dose change ?? Patient verbalizing understanding of instructions given with read back. 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 ) Psych. Illness/Depression: No Coding Level of Care Code Est Patient Level 1 Diagnoses Current use of anticoagulant therapy Z79.01 Results AMB INR Fingerstick AMB INR Fingerstick 1.9 Last Edit by Marybeth Timmons RN on 05/06/24 14:14 MANUAL ENTRY Assessment & Plan Assessment & Plan (1) Current use of anticoagulant therapy: Code(s): Z79.01 - computer terminal operator (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 of anticoagulants Category: Medical
--- OUTSIDE RECORDS SUMMARY | 2024-05-06 15:07 | XMS_ITS | Clinical Summary ---
Author Organization [facility] Facility Address [address] [address] Care Team Providers Care Returns Processor Name Role Phone Jo Menjivar MD Primary Care Provider [phone]- [phone] Social History Tobacco Use Types Packs/Day Years [...] [facility]IC[facility] Care Teams Returns Processor Relationship Specialty Start Date End Date Jo Menjivar MD 1960 [place], [place] [id number] PCP - General Internal Medicine 04/30/22
== END 2024-05-06 14:28 | disposition home or self-care (01) ==
LOC: HO.ACS 14:02
PROVIDERS: PCP Internal Medicine; Visit Provider Internal Medicine
DX: Z79.01 Long term (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 of anticoagulants (principal)

== ENCOUNTER → 2024-05-06 14:02 | Outpatient (BNVA) | payer MEDICARE, SELFPAY | PROVIDERS: PCP Internal Medicine; Visit Provider Internal Medicine | DX: I48.0 Paroxysmal atrial fibrillation (principal); Z79.01 Long term (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 of anticoagulants; Z51.81 Encounter for therapeutic drug level monitoring | CPT/HCPCS: 85610; 99211 ==

== ENCOUNTER 2024-05-13 14:08 | Outpatient (AMB) | payer MEDICARE, SELFPAY ==
[2024-05-13 14:16] LABS: Prothrombin Time Whole Bld POC 31.2 sec (11.1-13.5); ~PT, ~INR - Anti Coag Clinic 2.6 (0.9-1.1)
--- NOTE | 2024-05-13 14:26 | MHC.OFFVISCO ---
Intake Intake Visit Reasons: Anticoagulation Allergies red dye [Red Dye] Allergy (Severe, Verified 05/13/24 14:08) HIVES,THROAT CLOSES FROM RED FOOD DYE tape Adverse Reaction (Intermediate, Uncoded 05/13/24 14:08) Redness of Skin Medication List - Last Reconciled 05/13/24 by Marybeth Timmons RN albuterol sulfate 90 mcg/actuation 180 mcg inhalation Q6H PRN atorvastatin 40 mg PO DAILY blood sugar diagnostic (FreeStyle Lite Strips) As directed check sugar twice a day before meals blood-glucose meter (FreeStyle Lite Meter kit) As directed bumetanide 3 mg PO Q2D@0900 bumetanide 2 mg twice daily alternating with 3 mg twice daily, as before carvedilol 6.25 mg PO BID cholecalciferol (vitamin D3) 25 mcg PO DAILY clotrimazole 1% (Athlete's Foot (clotrimazole)) 1 appl topical BID 4 weeks dulaglutide (Trulicity) 4.5 mg (0.5 mL) subcut QWEEK flash glucose scanning reader (Ant[employer]Style Tabatha 2 [place]) As directed flash glucose sensor (FreeStyle Tabatha 2 Sensor kit) APPLY 1 SENSOR TOPICALLY AND LEAVE IN PLACE FOR 14 DAYS TO MONITOR BLOOD GLUCOSE DIRECTED BY THE DOCTOR. CHANGE SENSOR EVERY 14 DAYS insulin lispro (Humalog Tempo Pen (U-100) Insulin) 18 units subcut TID insulin NPH isoph U-100 human (Novolin N FlexPen) 26 units subcut BID insulin syringe-needle U-100 (BD Veo Insulin Syringe Ultra-Fine) As directed twice a day lancets (FreeStyle Lancets) As directed losartan 25 mg PO DAILY nystatin (Nystop) 1 appl topical BID PRN pen needle, diabetic (BD Ultra-Fine Short Pen Needle) USE 4 times a day Saccharomyces boulardii (Digest Probiotic (S.boulardii)) PO PRN [scale-accommodate weight 300 lbs As directed] spironolactone 25 mg PO DAILY 90 days warfarin See Protocol Warfarin 2.5mg tablet, 1 to 2 tablets daily as directed [wheelchair As directed] Nursing Note INR: 2.6 in therapeutic range Medications and supplements reviewed pt following a Mediterranean diet now Denies any signs and symptoms of bleeding or bruising or clotting. Bleeding, bruising, clotting discussed Nutritional guidance given - cont to eat a mix of fruits and vegetables - decrease the reds just a little now that warfarin dose has been increased Dose: 7.5mg x 1 dy/ 5mg x 6 days F/U INR: 2 weeks Patient verbalizes understanding of instructions given Anti-Coag Initial Assessment Social Hx Patient Tobacco Use Status: Never used Tobacco alcohol intake: never Alcohol intake frequency: does not drink Cardiovascular Hx: HTN, Angina, CAD, CHF, Arrhythmias, Varicose Veins and Other Lung Disease HX: Asthma Endocrine Hx: Diabetes Musculoskeletal Hx: Arthritis Blood Disorder Hx: Hyperlipidemia GI Hx: Ulcers, Bleeding (GI, rectal) and Other Hx: Kidney Disease Neurological Hx: Serious Head Injury and Migraines/Headaches 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 ) Psych. Illness/Depression: No Coding Level of Care Code Est Patient Level 1 Diagnoses Current use of anticoagulant therapy Z79.01 Results AMB INR Fingerstick AMB INR Fingerstick 2.6 Last Edit by Marybeth Timmons RN on 05/13/24 14:22 MANUAL ENTRY DUE TO DELAYED INTERFACING Assessment & Plan Assessment & Plan (1) Current use of anticoagulant therapy: Code(s): Z79.01 - buttermaker continuous churn (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 of anticoagulants Category: Medical Medications: New dulaglutide (Trulicity) 3 mg subcut QWEEK Ritchie Guillen MD (AC) On Hold dulaglutide (Trulicity) Hold Comment: unable to afford right now 4.5 mg (0.5 mL) subcut QWEEK 2 mL 11RF Marybeth Timmons RN
--- OUTSIDE RECORDS SUMMARY | 2024-05-13 17:09 | XMS_ITS | Clinical Summary ---
Author Organization [facility] Facility Address [address] [address] Care Team Providers Care Weight Yardage Checker Name Role Phone Jo Menjivar MD Primary Care Provider [phone]- [phone] Social History Tobacco Use Types Packs/Day Years [...] [facility]IC[facility] Care Teams Weight Yardage Checker Relationship Specialty Start Date End Date Jo Menjivar MD 1960 [place], [place] [id number] PCP - General Internal Medicine 04/30/22
== END 2024-05-13 14:33 | disposition home or self-care (01) ==
LOC: HO.ACS 14:08
PROVIDERS: PCP Internal Medicine; Visit Provider Internal Medicine
DX: Z79.01 Long term (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 of anticoagulants (principal)

== ENCOUNTER → 2024-05-13 14:08 | Outpatient (BNVA) | payer MEDICARE, SELFPAY | PROVIDERS: PCP Internal Medicine; Visit Provider Internal Medicine | DX: I48.0 Paroxysmal atrial fibrillation (principal); Z79.01 Long term (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 of anticoagulants; Z51.81 Encounter for therapeutic drug level monitoring | CPT/HCPCS: 85610; 99211 ==

== ENCOUNTER 2024-05-14 13:25 | Outpatient (AMB) | payer MEDICARE, SELFPAY ==
[2024-05-14 13:29] VITALS: BP 108/68; PULSE 73; O2SAT 97; BMI 41.2
--- NOTE | 2024-05-14 13:29 | A.OFFVIS_ITS ---
Vital Signs 05/14/24 13:29 Height 5 ft 4 in Weight 240 lb 4.862 oz BMI 41.2 BP 108/68 Blood Pressure Location Rt brachial Position Sitting Pulse 73 Pulse Source Pulse Oximeter Pulse Oximetry (%) 97 Oxygen Delivery Method Room Air Intake Visit Reasons: type II diabetes Intake Note: Patient presents today for a follow-up on Type 2 Diabetes Mellitus: Last Diabetic eye exam was on: DUE Last Podiatry exam was on: Patient does not see a Gas Torch [employer] Most recent HbA1c: 9.1%, 04/09/2024 Random Glucose- 197 mg/dL, Today o Allergies red dye [Red Dye] Allergy (Severe, Verified 05/13/24 14:08) HIVES,THROAT CLOSES FROM RED FOOD DYE tape Adverse Reaction (Intermediate, Uncoded 05/13/24 14:08) Redness of Skin HPI Comments Details: This is a 69-year-old female with a past medical history of PAD, paroxysmal atrial fibrillation, CAD, chronic anticoagulation, CKD stage 3, heart failure with reduced ejection fraction, type 2 diabetes, hypertension and hyperlipidemia presenting for diabetic management. Her hemoglobin A1c is 9.1% 04/09/24 up from 8.8%. . Current regimen is insulin NPH 26 units twice daily (insurance does not cover alternatives), Humalog 18 units 2-3 times daily before meals (first meal usually at 11am) and Trulicity 3 mg weekly (4.5 mg was submitted, but it was not dispensed because it needs to go through [employer] - patient given form today to complete). She denies side effects on the regimen. CGM data x 14 days: CGM active 51% Average glucose 204 G MD 8.2% Very high 17% High 46% Target 37% 0% low She has a pattern of hyperglycemia in the evening and overnight and late afternoon. Denies hypoglycemic events. Microvascular complications: Nephropathy (CKD), neuropathy Macrovascular complications: PAD, CAD Eye exam is up-to-date. ROS: Constitutional: No unexplained weight loss, fever, chills, fatigue or night sweats. Eyes: No vision changes Respiratory: No shortness of breath Cardiovascular: No chest pain Gastrointestinal: No abdominal pain Neurologic: No headache, dizziness, syncope Skin: No open wounds. Physical exam: Constitutional: Alert, in no distress. Eyes: Pupils are equal, round and reactive to light. Extraocular muscles intact.. Neck: Supple, Full range of motion. No lymphadenopathy. No palpable thyroid masses. Respiratory: Clear to auscultation. Cardiovascular: S1 S2 regular. No murmurs. [facility] Medical History Diabetic neuropathy Cardiac resynchronization therapy defibrillator (SMALL ARMS ARTILLERY REPAIRER-D) in place History of COVID-19 Paroxysmal atrial fibrillation CHF (congestive heart failure) Left bundle branch block History of uterine cancer Personal history of malignant neoplasm of other parts of uterus Tinea pedis History of cardioversion Cardiomyopathy Coronary arteriosclerosis Ischemic cardiomyopathy Colonoscopy refused Incomplete left bundle branch block (LBBB) Post-menopausal bleeding Type 2 diabetes mellitus with hyperglycemia, with long-term current use of insulin Vitamin D deficiency Mixed dyslipidemia Papanicolaou smear declined Mammogram declined Osteoarthritis, knee Diabetic neuropathy History of esophagitis Mild intermittent asthma History of basal cell carcinoma Osteonecrosis of right hip Hiatal hernia History of cholelithiasis Morbid obesity Essential hypertension Type 2 diabetes mellitus with hyperglycemia, without long-term current use of insulin Irritable bowel syndrome (IBS) Surgical History S/P CLARE-BSO (total abdominal hysterectomy and bilateral salpingo-oophorectomy) S/P cardiac catheterization History of hysterectomy H/O hernia repair Hx of section History of hip surgery Hx of colonoscopy History of cholecystectomy Family History Father Myocardial infarction Cardiovascular disease Mother Diabetes mellitus Essential hypertension Daughter Anxiety disorder Mental health disorder Son Mental health disorder Social History Household Members: Spouse and Children Housing: House Are you a primary career development counselor to a significant other at home: No Do you presently have visiting nurse or other home services: No Alcohol intake: never Comment: pt refuses alarms Patient Tobacco Use Status: Never used Tobacco e-Cigarette/Vaping Use: Never Used Second Hand Smoke Exposure: No Advance Directives Date on File: 04/08/22 service: No Current occupational status: retired Current occupational exposures/hazards: No Cognitive needs: No Hearing needs: No Vision needs: Yes Physical Exam Vital Signs: Last Vital Signs Pulse 73 05/14/24 13:29 BP 108/68 05/14/24 13:29 Pulse Ox 97 05/14/24 13:29 Oxygen Delivery Method Room Air 05/14/24 13:29 BMI result Body Mass Index 41.2 Results Reviewed Results Reviewed: Laboratory Tests 09/21/21 08/21/23 09/08/23 13:14 13:06 14:35 Creatinine 1.61 H Estimated GFR 32 Hgb A1c (Clinic) 8.2 H Triglycerides 157 H Cholesterol 143 LDL Cholesterol, Calc 70 HDL Cholesterol 42 Urine Creatinine 56.63 Urine Microalbumin 11.0 Microalb/Creat Ratio 19.4 Assessment & Plan Assessment & Plan (1) Type 2 diabetes mellitus with hyperglycemia, with long-term current use of insulin: Code(s): E11.65 - Type 2 diabetes mellitus with hyperglycemia; Z79.4 - computer terminal operator (current) use of insulin Category: Medical (2) Diabetic neuropathy: Code(s): E11.40 - Type 2 diabetes mellitus with diabetic neuropathy, unspecified Category: Medical Qualifiers: Diabetes mellitus type: type 2 Diabetes mellitus complication detail: diabetic polyneuropathy Qualified Code(s): E11.42 - Type 2 diabetes mellitus with diabetic polyneuropathy Plan In summary this is a 69-year-old female with uncontrolled type 2 diabetes with micro and macrovascular complications on her current regimen. Continue NPH insulin 26 units twice daily. Increase Trulicity to 4.5 mg weekly. She will complete the form for [employer]. Continue Humalog to 18 units before meals. Patient says if she has Green[place]ic food she sometimes has blood sugar spike afterwards. She has a meal once a month. She will administer 22 units of Humalog before Green[place]ic food meals. She is compliant with glucose monitoring and brings her sensor to appointments. Diabetic diet reviewed. Declines referral to diabetic education/dietitian at this time. If you experience low blood sugar, treat this by eating a chewable fruit candy like skittles or jelly beans (about 8 pieces), 4 ounces (1/2 cup) of fruit juice (not diet), 1 tablespoon of honey or 4 glucose tablets. If your blood sugar is under 50, take double the amount of one of the above. Recheck your blood sugar in 15 minutes. Declined Rx for glucose tablets. She will have a follow up appointment in 8 weeks and have her blood work comp leted prior to it. Orders: Orders Aspartate Amino Transferase Today I73.9 - Peripheral vascular disease, unspecified, N18.30 - Chronic kidney disease, stage 3 unspecified Alanine Aminotransferase Today I73.9 - Peripheral vascular disease, unspecified, N18.30 - Chronic kidney disease, stage 3 unspecified, R79.89 - Other specified abnormal findings of blood chemistry Platelet Count Today I73.9 - Peripheral vascular disease, unspecified, N18.30 - Chronic kidney disease, stage 3 unspecified Creatinine Today I73.9 - Peripheral vascular disease, unspecified, N18.30 - Chronic kidney disease, stage 3 unspecified Hemoglobin A1c Today E11.9 - Type 2 diabetes mellitus without complications Coding Level of Care Code Est Pt Level 4 (72121) Complex EM visit Add On G2211 Diagnoses Type 2 diabetes mellitus with hyperglycemia, with long-term current use of insulin E11.65; Z79.4 Diabetic polyneuropathy associated with type 2 diabetes mellitus E11.42 Diabetes mellitus type: type 2 Diabetes mellitus complication detail: diabetic polyneuropathy
[2024-05-14 13:42] LABS: Glucose, Whole Blood 197 mg/dL (60-115)
--- OUTSIDE RECORDS SUMMARY | 2024-05-14 15:28 | XMS_ITS | Clinical Summary ---
Author Organization [facility] Facility Address [address] [address] Care Team Providers Care Oil Change Technician Name Role Phone Jo Menjivar MD Primary Care Provider [phone]- [phone] Social History Tobacco Use Types Packs/Day Years [...] [facility]ALTH [facility]IC[facility] Care Teams Oil Change Technician Relationship Specialty Start Date End Date Jo Menjivar MD 1960 [place], [place] [id number] PCP - General Internal Medicine 04/30/22
== END 2024-05-14 14:03 | disposition home or self-care (01) ==
PROVIDERS: PCP Internal Medicine; Visit Provider Physician Assistant Medical
DX: E11.65 Type 2 diabetes mellitus with hyperglycemia (principal); Z79.4 Long term (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 of insulin; E11.42 Type 2 diabetes mellitus with diabetic polyneuropathy

== ENCOUNTER → 2024-05-14 13:25 | Outpatient (BNVA) | payer MEDICARE, SELFPAY | PROVIDERS: PCP Internal Medicine; Visit Provider Physician Assistant Medical | DX: E11.65 Type 2 diabetes mellitus with hyperglycemia (principal); E11.42 Type 2 diabetes mellitus with diabetic polyneuropathy; E11.22 Type 2 diabetes mellitus with diabetic chronic kidney disease; N18.30 Chronic kidney disease, stage 3 unspecified; I73.9 Peripheral vascular disease, unspecified; Z79.4 Long term (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 of insulin | CPT/HCPCS: 82947; 99212 ==

== ENCOUNTER → 2024-05-17 23:59 | Outpatient (BNV) | payer MEDICARE, SELFPAY ==
--- NOTE | 2024-05-23 17:02 | MHC.OFFVIS ---
Intake Visit Reasons: Remote ICD check- [employer] Allergies red dye [Red Dye] Allergy (Severe, Verified 05/13/24 14:08) HIVES,THROAT CLOSES FROM RED FOOD DYE tape Adverse Reaction (Intermediate, Uncoded 05/13/24 14:08) Redness of Skin PFSH Medical History Diabetic neuropathy Cardiac resynchronization therapy defibrillator (NETWORK SYSTEMS OPERATOR-D) in place History of COVID-19 Paroxysmal atrial fibrillation CHF (congestive heart failure) Left bundle branch block History of uterine cancer Personal history of malignant neoplasm of other parts of uterus Tinea pedis History of cardioversion Cardiomyopathy Coronary arteriosclerosis Ischemic cardiomyopathy Colonoscopy refused Incomplete left bundle branch block (LBBB) Post-menopausal bleeding Type 2 diabetes mellitus with hyperglycemia, with long-term current use of insulin Vitamin D deficiency Mixed dyslipidemia Papanicolaou smear declined Mammogram declined Osteoarthritis, knee Diabetic neuropathy History of esophagitis Mild intermittent asthma History of basal cell carcinoma Osteonecrosis of right hip Hiatal hernia History of cholelithiasis Morbid obesity Essential hypertension Type 2 diabetes mellitus with hyperglycemia, without long-term current use of insulin Irritable bowel syndrome (IBS) Surgical History S/P CLARE-BSO (total abdominal hysterectomy and bilateral salpingo-oophorectomy) S/P cardiac catheterization History of hysterectomy H/O hernia repair Hx of section History of hip surgery Hx of colonoscopy History of cholecystectomy Family History Father Myocardial infarction Cardiovascular disease Mother Diabetes mellitus Essential hypertension Daughter Anxiety disorder Mental health disorder Son Mental health disorder Social History Household Members: Spouse and Children Housing: House Are you a primary care technician to a significant other at home: No Do you presently have visiting nurse or other home services: No Alcohol intake: never Comment: pt refuses alarms Patient Tobacco Use Status: Never used Tobacco e-Cigarette/Vaping Use: Never Used Second Hand Smoke Exposure: No Advance Directives Date on File: 04/08/22 service: No Current occupational status: retired Current occupational exposures/hazards: No Cognitive needs: No Hearing needs: No Vision needs: Yes Office Procedures Cardiac Device Check Cardiac Device Check Details: NETWORK SYSTEMS OPERATOR-D Good battery life V paced 99% No new alerts. [id number] Cardiac Device Check, multi lead implantable defibrillator Procedure code (CPT) selection complete Assessment & Plan Assessment & Plan (1) Cardiac resynchronization therapy defibrillator (NETWORK SYSTEMS OPERATOR-D) in place: Comment: [employer] implanted 07/25/2023 Code(s): Z95.810 - Presence of automatic (implantable) cardiac defibrillator Category: Medical Plan Orders: Orders AMB Cardiac Device Follow-up 05/17/24 Z95.810 - Presence of automatic (implantable) cardiac defibrillator Coding Level of Care Code Procedure Only Diagnoses Cardiac resynchronization therapy defibrillator (NETWORK SYSTEMS OPERATOR-D) in place Z95.810 CPT Codes Cardiac Device Check - Cardiac Device 6: [id number] Cardiac Device Check, multi lead implantable defibrillator ([id number])
== END ==
PROVIDERS: PCP Internal Medicine; Visit Provider Internal Medicine Cardiovascular Disease
DX: Z45.02 Encounter for adjustment and management of automatic implantable cardiac defibrillator (principal)
CPT/HCPCS: 93295

== ENCOUNTER 2024-05-27 13:59 | Outpatient (AMB) | payer MEDICARE, SELFPAY ==
[2024-05-27 14:16] LABS: Prothrombin Time Whole Bld POC 24.5 sec (11.1-13.5)
--- NOTE | 2024-05-27 14:43 | MHC.OFFVISCO ---
Intake Intake Visit Reasons: Anticoagulation Allergies red dye [Red Dye] Allergy (Severe, Verified 05/27/24 14:09) HIVES,THROAT CLOSES FROM RED FOOD DYE tape Adverse Reaction (Intermediate, Uncoded 05/27/24 14:09) Redness of Skin Medication List - Last Reconciled 05/27/24 by Marybeth Timmons RN albuterol sulfate 90 mcg/actuation 180 mcg inhalation Q6H PRN atorvastatin 40 mg PO DAILY blood sugar diagnostic (FreeStyle Lite Strips) As directed check sugar twice a day before meals blood-glucose meter (FreeStyle Lite Meter kit) As directed bumetanide 3 mg PO Q2D@0900 bumetanide 2 mg twice daily alternating with 3 mg twice daily, as before carvedilol 6.25 mg PO BID cholecalciferol (vitamin D3) 25 mcg PO DAILY clotrimazole 1% (Athlete's Foot (clotrimazole)) 1 appl topical BID 4 weeks dulaglutide (Trulicity) 4.5 mg (0.5 mL) subcut QWEEK dulaglutide (Trulicity) 3 mg subcut QWEEK flash glucose scanning reader ([employer] Tabatha 2 [place]) As directed flash glucose sensor (FreeStyle Tabatha 2 Sensor kit) APPLY 1 SENSOR TOPICALLY AND LEAVE IN PLACE FOR 14 DAYS TO MONITOR BLOOD GLUCOSE DIRECTED BY THE DOCTOR. CHANGE SENSOR EVERY 14 DAYS insulin lispro (Humalog Tempo Pen (U-100) Insulin) 18 units subcut TID insulin NPH isoph U-100 human (Novolin N FlexPen) 26 units subcut BID insulin syringe-needle U-100 (BD Veo Insulin Syringe Ultra-Fine) As directed twice a day lancets (FreeStyle Lancets) As directed losartan 25 mg PO DAILY nystatin (Nystop) 1 appl topical BID PRN pen needle, diabetic (BD Ultra-Fine Short Pen Needle) USE 4 times a day Saccharomyces boulardii (Digest Probiotic (S.boulardii)) PO PRN [scale-accommodate weight 300 lbs As directed] spironolactone 25 mg PO DAILY 90 days warfarin See Protocol Warfarin 2.5mg tablet, 1 to 2 tablets daily as directed [wheelchair As directed] Nursing Note Ambulates to ACS with cane INR: 2.0 in therapeutic range Medications and supplements reviewed pt inqured about mushrooms and supplements- several mushrooms can raise the INR - she was enc to treat most as a food that can raise the INR in large amts No changes in health, diet, medications, Denies any signs and symptoms of bleeding or bruising or clotting. Bleeding, bruising, clotting discussed Nutritional guidance given - eat a mix of fruits and vegetables and cont to balance diet Dose: 7.5mg x 1 day/ 5mg x 6 days F/U INR: 2 weeks Patient verbalizes understanding of instructions given Anti-Coag Initial Assessment Social Hx Patient Tobacco Use Status: Never used Tobacco alcohol intake: never Alcohol intake frequency: does not drink Cardiovascular Hx: HTN, Angina, CAD, CHF, Arrhythmias, Varicose Veins and Other Lung Disease HX: Asthma Endocrine Hx: Diabetes Musculoskeletal Hx: Arthritis Blood Disorder Hx: Hyperlipidemia GI Hx: Ulcers, Bleeding (GI, rectal) and Other Hx: Kidney Disease Neurological Hx: Serious Head Injury and Migraines/Headaches 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 ) Psych. Illness/Depression: No Coding Level of Care Code Est Patient Level 1 Diagnoses Current use of anticoagulant therapy Z79.01 Assessment & Plan Assessment & Plan (1) Current use of anticoagulant therapy: Code(s): Z79.01 - MCFP (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 of anticoagulants Category: Medical
--- OUTSIDE RECORDS SUMMARY | 2024-05-27 17:46 | XMS_ITS | Clinical Summary ---
Author Organization [facility] Facility Address [address] [address] Care Team Providers Care Yardage Tufting Machine Operator Name Role Phone Jo Menjivar MD Primary Care Provider [phone]- [phone] Social History Tobacco Use Types Packs/Day Years [...] HEALTH MEDIC[facility] Care Teams Yardage Tufting Machine Operator Relationship Specialty Start Date End Date Jo Menjivar MD 1960 [place], [place] [id number] PCP - General Internal Medicine 04/30/22
== END 2024-05-27 14:50 | disposition home or self-care (01) ==
LOC: HO.ACS 13:59
PROVIDERS: PCP Internal Medicine; Visit Provider Internal Medicine
DX: Z79.01 Long term (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 of anticoagulants (principal)

== ENCOUNTER → 2024-05-27 13:59 | Outpatient (BNVA) | payer MEDICARE, SELFPAY | PROVIDERS: PCP Internal Medicine; Visit Provider Internal Medicine | DX: I48.0 Paroxysmal atrial fibrillation (principal); Z79.01 Long term (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 of anticoagulants; Z51.81 Encounter for therapeutic drug level monitoring | CPT/HCPCS: 85610; 99211 ==

== ENCOUNTER 2024-06-10 13:59 | Outpatient (AMB) | payer MEDICARE, SELFPAY ==
[2024-06-10 14:13] LABS: Prothrombin Time Whole Bld POC 27.1 sec (11.1-13.5); ~PT, ~INR - Anti Coag Clinic 2.3 (0.9-1.1)
--- NOTE | 2024-06-10 14:14 | MHC.OFFVISCO ---
Intake Intake Visit Reasons: Anticoagulation Allergies red dye [Red Dye] Allergy (Severe, Verified 06/10/24 14:03) HIVES,THROAT CLOSES FROM RED FOOD DYE tape Adverse Reaction (Intermediate, Uncoded 06/10/24 14:03) Redness of Skin Medication List - Last Reconciled 06/10/24 by Jeanna Suarez, RN albuterol sulfate 90 mcg/actuation 180 mcg inhalation Q6H PRN atorvastatin 40 mg PO DAILY blood sugar diagnostic (FreeStyle Lite Strips) As directed check sugar twice a day before meals blood-glucose meter (FreeStyle Lite Meter kit) As directed bumetanide 3 mg PO Q2D@0900 bumetanide 2 mg twice daily alternating with 3 mg twice daily, as before carvedilol 6.25 mg PO BID cholecalciferol (vitamin D3) 25 mcg PO DAILY clotrimazole 1% (Athlete's Foot (clotrimazole)) 1 appl topical BID 4 weeks dulaglutide (Trulicity) 4.5 mg (0.5 mL) subcut QWEEK dulaglutide (Trulicity) 3 mg subcut QWEEK flash glucose scanning reader ([employer] Tabatha 2 [place]) As directed flash glucose sensor (FreeStyle Tabatha 2 Sensor kit) APPLY 1 SENSOR TOPICALLY AND LEAVE IN PLACE FOR 14 DAYS TO MONITOR BLOOD GLUCOSE DIRECTED BY THE DOCTOR. CHANGE SENSOR EVERY 14 DAYS insulin lispro (Humalog Tempo Pen (U-100) Insulin) 18 units subcut TID insulin NPH isoph U-100 human (Novolin N FlexPen) 26 units subcut BID insulin syringe-needle U-100 (BD Veo Insulin Syringe Ultra-Fine) As directed twice a day lancets (FreeStyle Lancets) As directed losartan 25 mg PO DAILY nystatin (Nystop) 1 appl topical BID PRN pen needle, diabetic (BD Ultra-Fine Short Pen Needle) USE 4 times a day Saccharomyces boulardii (Digest Probiotic (S.boulardii)) PO PRN [scale-accommodate weight 300 lbs As directed] spironolactone 25 mg PO DAILY 90 days warfarin See Protocol Warfarin 2.5mg tablet, 1 to 2 tablets daily as directed [wheelchair As directed] Nursing Note INR: 2.3 in therapeutic range of 2-3 Medications and supplements reviewed No changes in health, diet, medications, or supplements, Denies any signs and symptoms of bleeding or bruising or clotting. Bleeding, bruising, clotting discussed Nutritional guidance given Dose: 5mg X 6 days and 7.5mg X 1 days (Fri) F/U INR: 3 weeks Patient verbalizes understanding of instructions given Anti-Coag Initial Assessment Social Hx Patient Tobacco Use Status: Never used Tobacco alcohol intake: never Alcohol intake frequency: does not drink Cardiovascular Hx: HTN, Angina, CAD, CHF, Arrhythmias, Varicose Veins and Other Lung Disease HX: Asthma Endocrine Hx: Diabetes Musculoskeletal Hx: Arthritis Blood Disorder Hx: Hyperlipidemia GI Hx: Ulcers, Bleeding (GI, rectal) and Other Hx: Kidney Disease Neurological Hx: Serious Head Injury and Migraines/Headaches 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 ) Psych. 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
--- OUTSIDE RECORDS SUMMARY | 2024-06-10 17:29 | XMS_ITS | Clinical Summary ---
Author Organization [facility] Facility Address [address] [address] Care Team Providers Care Glass Forming Engineer Name Role Phone Jo Menjivar MD Primary Care Provider [phone]- [phone] Social History Tobacco Use Types Packs/Day Years [...] [facility]ALTH [facility]IC[facility] Care Teams Glass Forming Engineer Relationship Specialty Start Date End Date Jo Menjivar MD 1960 [place], [place] [id number] PCP - General Internal Medicine 04/30/22
== END 2024-06-10 14:21 | disposition home or self-care (01) ==
LOC: HO.ACS 13:59
PROVIDERS: PCP Internal Medicine; Visit Provider Internal Medicine Medical Oncology
DX: Z79.01 Long term (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 of anticoagulants (principal)

== ENCOUNTER → 2024-06-10 13:59 | Outpatient (BNVA) | payer MEDICARE, SELFPAY | PROVIDERS: PCP Internal Medicine; Visit Provider Internal Medicine Medical Oncology | DX: I48.0 Paroxysmal atrial fibrillation (principal); Z51.81 Encounter for therapeutic drug level monitoring; Z79.01 Long term (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 of anticoagulants | CPT/HCPCS: 85610; 99211 ==

== ENCOUNTER 2024-07-01 13:57 | Outpatient (AMB) | payer MEDICARE, SELFPAY ==
[2024-07-01 14:12] LABS: ~PT, ~INR - Anti Coag Clinic 2.1 (0.9-1.1)
--- NOTE | 2024-07-01 14:16 | MHC.OFFVISCO ---
Intake Intake Visit Reasons: Anticoagulation Allergies red dye [Red Dye] Allergy (Severe, Verified 07/01/24 14:04) HIVES,THROAT CLOSES FROM RED FOOD DYE tape Adverse Reaction (Intermediate, Uncoded 07/01/24 14:04) Redness of Skin Medication List - Last Reconciled 07/01/24 by Jeanna Suarez, RN albuterol sulfate 90 mcg/actuation 180 mcg inhalation Q6H PRN atorvastatin 40 mg PO DAILY blood sugar diagnostic (FreeStyle Lite Strips) As directed check sugar twice a day before meals blood-glucose meter (FreeStyle Lite Meter kit) As directed bumetanide 3 mg PO Q2D@0900 bumetanide 2 mg twice daily alternating with 3 mg twice daily, as before carvedilol 6.25 mg PO BID cholecalciferol (vitamin D3) 25 mcg PO DAILY clotrimazole 1% (Athlete's Foot (clotrimazole)) 1 appl topical BID 4 weeks dulaglutide (Trulicity) 4.5 mg (0.5 mL) subcut QWEEK dulaglutide (Trulicity) 3 mg subcut QWEEK flash glucose scanning reader ([employer]Style Tabatha 2 [place]) As directed flash glucose sensor (FreeStyle Tabatha 2 Sensor kit) APPLY 1 SENSOR TOPICALLY AND LEAVE IN PLACE FOR 14 DAYS TO MONITOR BLOOD GLUCOSE DIRECTED BY THE DOCTOR. CHANGE SENSOR EVERY 14 DAYS insulin lispro (Humalog Tempo Pen (U-100) Insulin) 18 units subcut TID insulin NPH isoph U-100 human (Novolin N FlexPen) 26 units subcut BID insulin syringe-needle U-100 (BD Veo Insulin Syringe Ultra-Fine) As directed twice a day lancets (FreeStyle Lancets) As directed losartan 25 mg PO DAILY nystatin (Nystop) 1 appl topical BID PRN pen needle, diabetic (BD Ultra-Fine Short Pen Needle) USE 4 times a day Saccharomyces boulardii (Digest Probiotic (S.boulardii)) PO PRN [scale-accommodate weight 300 lbs As directed] spironolactone 25 mg PO DAILY 90 days warfarin See Protocol Warfarin 2.5mg tablet, 1 to 2 tablets daily as directed [wheelchair As directed] Nursing Note INR: 2.1 in therapeutic range of 2-3 Medications and supplements reviewed No changes in health, diet, medications, or supplements, Denies any signs and symptoms of bleeding or bruising or clotting. Bleeding, bruising, clotting discussed Nutritional guidance given to avoid greens today and to have a serving of foods that raise the INR today. Pt states she will have beets today. Dose: 5mg X 6 days and 7.5mg X 1 day (Fri) F/U INR: 3 weeks Patient verbalizes understanding of instructions given Anti-Coag Initial Assessment Social Hx Patient Tobacco Use Status: Never used Tobacco alcohol intake: never Alcohol intake frequency: does not drink Cardiovascular Hx: HTN, Angina, CAD, CHF, Arrhythmias, Varicose Veins and Other Lung Disease HX: Asthma Endocrine Hx: Diabetes Musculoskeletal Hx: Arthritis Blood Disorder Hx: Hyperlipidemia GI Hx: Ulcers, Bleeding (GI, rectal) and Other Hx: Kidney Disease Neurological Hx: Serious Head Injury and Migraines/Headaches 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 ) Psych. Illness/Depression: No Coding Level of Care Code Est Patient Level 1 Diagnoses Current use of anticoagulant therapy Z79.01 Results AMB INR Fingerstick AMB INR Fingerstick 2.1 Last Edit by Jeanna Suarez RN on 07/01/24 14:12 interface delay Assessment & Plan Assessment & Plan (1) Current use of anticoagulant therapy: Code(s): Z79.01 - fisher reef net (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 of anticoagulants Category: Medical
--- OUTSIDE RECORDS SUMMARY | 2024-07-01 17:02 | XMS_ITS | Clinical Summary ---
Author Organization [facility] Facility Address [address] [address] Care Team Providers Care Waiter/Waitress Bar Name Role Phone Jo Menjivar MD Primary Care Provider [phone]- [phone] Social History Tobacco Use Types Packs/Day Years Used Date Smoking Tobacco: Never Assessed Comments Unknown Sex and Gender Information Value Date Recorded Sex Assigned at Not on file Legal Sex Female 8:55 AM EST Gender Identity Not on file Sexual Orientation Not on file Plan of Treatment Health Maintenance Due Date Last Done Comments Breast Cancer Screening 1955 Pneumococcal Vaccine: 50+ Ye ars (1 of 2 - PCV) 02/19/1975 Colorectal Cancer Screening: Annual FOBT 02/19/2005 Colorectal Cancer Screening: Colonoscopy 02/19/2005 Colorectal Cancer Screening: Sigmoidoscopy 02/19/2005 Diabetes: Hemoglobin A1C 05/10/2022 Diabetes: Ophthalmology Exam 05/10/2022 Diabetes: Pedal Pulse Checked 05/10/2022 Diabetes: Sensory Foot Exam 05/10/2022 Diabetes: Visual Foot Exam 05/10/2022 Influenza Vaccine (Season Ended) 2024 Hepatitis B Vaccine Aged Out No longe r eligible based on patient's age to complete this topic Insurance [facility] Medicare [facility] Medicare Care Teams Waiter/Waitress Bar Relationship Specialty Start Date End Date Jo Menjivar MD 1960 [place] [address] PCP - General Internal Medicine 04/30/22
== END 2024-07-01 14:29 | disposition home or self-care (01) ==
LOC: HO.ACS 13:57
PROVIDERS: PCP Internal Medicine; Visit Provider Internal Medicine Medical Oncology
DX: Z79.01 Long term (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 of anticoagulants (principal)

== ENCOUNTER → 2024-07-01 13:57 | Outpatient (BNVA) | payer MEDICARE, SELFPAY | PROVIDERS: PCP Internal Medicine; Visit Provider Internal Medicine Medical Oncology | DX: I48.0 Paroxysmal atrial fibrillation (principal); Z79.01 Long term (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 of anticoagulants; Z51.81 Encounter for therapeutic drug level monitoring | CPT/HCPCS: 85610; 99211 ==

== ENCOUNTER 2024-07-15 10:51 | Outpatient (REF) | payer MEDICARE, SELFPAY ==
--- OUTSIDE RECORDS SUMMARY | 2024-07-15 12:30 | XMS_ITS | Clinical Summary ---
Author Organization [facility] Facility Address [address] [address] Care Team Providers Care Studio Owner Name Role Phone Jo Menjivar MD Primary Care Provider +1- [phone] Social History Tobacco Use Types Packs/Day Years [...] Health Medicare [employer] Medicare Care Teams Studio Owner Relationship Specialty Start Date End Date Jo Menjivar MD 1960 [place] [address] PCP - General Internal Medicine 04/30/22
[2024-07-15 13:14] LABS: Platelet Count 270 X10*3/uL (160-400)
[2024-07-15 13:28] LABS: Alanine Aminotransferase 9 U/L (0-31); Anion Gap 15 (12-20); Aspartate Amino Transferase 17 U/L (5-31); Blood Urea Nitrogen 39 mg/dL (9-16); Calcium 8.9 mg/dL (8.4-10.2); Carbon Dioxide 28 mmol/L (22-29); Chloride 100 mmol/L (96-108); Cholesterol 122 mg/dL (<200); Estimated Glomerular Filt Rate 40; Glucose Random 171 mg/dL (60-115); HDL Cholesterol 34 mg/dL (>40); LDL Cholesterol Calculated 48 mg/dL (<100); Sodium 139 mmol/L (135-145); Triglycerides 201 mg/dL (<150)
[2024-07-15 13:29] LABS: Estimated Average Glucose 189 mg/dL; Hemoglobin A1C 216.9125 umol/L; Hemoglobin A1c % 8.2 % (<6.0); Total Hemoglobin (HGBA1C) 3267.7395 umol/L
== END 2024-07-15 10:52 | disposition home or self-care (01) ==
LOC: HO.HMGCLDS 10:51
PROVIDERS: Internal Medicine Hypertension Specialist; Physician Assistant Medical; PCP Internal Medicine; Visit Provider Internal Medicine
DX: N18.30 Chronic kidney disease, stage 3 unspecified (principal); E78.2 Mixed hyperlipidemia; I73.9 Peripheral vascular disease, unspecified; E11.9 Type 2 diabetes mellitus without complications; R79.89 Other specified abnormal findings of blood chemistry
CPT/HCPCS: 36415; 80048; 80061; 83036; 84450; 84460; 85049

== ENCOUNTER 2024-07-16 08:29 | Outpatient (AMB) | payer MEDICARE, SELFPAY ==
--- NOTE | 2024-07-16 08:25 | MHC.PC.OV ---
Intake Visit Reasons: f/u labs/ Iphone Allergies red dye [Red Dye] Allergy (Severe, Verified 07/17/24 01:16) HIVES,THROAT CLOSES FROM RED FOOD DYE tape Adverse Reaction (Intermediate, Uncoded 07/17/24 01:16) Redness of Skin Medication List - Last Reconciled 07/16/24 by Lily Menjivar MD albuterol sulfate 90 mcg/actuation 180 mcg inhalation Q6H PRN atorvastatin 40 mg PO DAILY blood sugar diagnostic (FreeStyle Lite Strips) As directed check sugar twice a day before meals blood-glucose meter (FreeStyle Lite Meter kit) As directed bumetanide 2 mg twice daily alternating with 3 mg twice daily, as before carvedilol 6.25 mg PO BID cholecalciferol (vitamin D3) 25 mcg PO DAILY clotrimazole 1% (Athlete's Foot (clotrimazole)) 1 appl topical BID 4 weeks dulaglutide (Trulicity) 4.5 mg (0.5 mL) subcut QWEEK dulaglutide (Trulicity) 3 mg subcut QWEEK flash glucose scanning reader (C3 MetricsStyle Tabatha 2 [place]) As directed flash glucose sensor (FreeStyle Tabatha 2 Sensor kit) APPLY 1 SENSOR TOPICALLY AND LEAVE IN PLACE FOR 14 DAYS TO MONITOR BLOOD GLUCOSE DIRECTED BY THE DOCTOR. CHANGE SENSOR EVERY 14 DAYS insulin lispro (Humalog Tempo Pen (U-100) Insulin) 18 units subcut TID insulin NPH isoph U-100 human (Novolin N FlexPen) 26 units subcut BID insulin syringe-needle U-100 (BD Veo Insulin Syringe Ultra-Fine) As directed twice a day lancets (FreeStyle Lancets) As directed losartan 25 mg PO DAILY nystatin (Nystop) 1 appl topical BID PRN pen needle, diabetic (BD Ultra-Fine Short Pen Needle) USE 4 times a day Saccharomyces boulardii (Digest Probiotic (S.boulardii)) PO PRN [scale-accommodate weight 300 lbs As directed] spironolactone 25 mg PO DAILY 90 days warfarin See Protocol Warfarin 2.5mg tablet, 1 to 2 tablets daily as directed [wheelchair As directed] Tobacco use date assessed: 07/16/24 Fall risk assessment: No Falls in past year Last assessed Fall Risk: 07/16/24 Dental Screening Dental Screen Date: 07/16/24 Did you have a dental visit in the last 12 months?: No Did you have a dental problem in the last 6 months where you did not have access to dental care?: No Was dental information given to patient?: No HPI f/u labs/ Iphone HPI Details 69 -year-old lady with past medical history significant for diabetes mellitus with neuropathy, paroxysmal atrial fibrillation currently on war[facility]in [facility], peripheral arterial disease, atherosclerotic heart disease, with history of heart failure, incomplete left bundle branch block, currently with defibrillator in place, chronic kidney disease stage III, osteoarthritis, history of uterine cancer status post TAHBSO mild intermittent asthma, hiatal hernia, here today for follow up on her lipids . Has been compliant with taking medications, and adhering to recommended diet, but unable to do any meaningful exercise . Patient states that decide or her pacemaker was placed starts to ache whenever she does any arm weights or doing any stretching. Latest hemoglobin A1c is a little better as compared to last check now at 8.2%, fasting lipids are within normal limits except for low good cholesterol levels. Patient has an appointment scheduled to see endocrine clinic later this afternoon for her follow-up. [facility] Medical History Diabetic neuropathy Cardiac resynchronization therapy defibrillator (RECLAMATION WORKER-D) in place History of COVID-19 Paroxysmal atrial fibrillation CHF (congestive heart failure) Left bundle branch block History of uterine cancer Personal history of malignant neoplasm of other parts of uterus Tinea pedis History of cardioversion Cardiomyopathy Coronary arteriosclerosis Ischemic cardiomyopathy Colonoscopy refused Incomplete left bundle branch block (LBBB) Post-menopausal bleeding Type 2 diabetes mellitus with hyperglycemia, with long-term current use of insulin Vitamin D deficiency Mixed dyslipidemia Papanicolaou smear declined Mammogram declined Osteoarthritis, knee Diabetic neuropathy History of esophagitis Mild intermittent asthma History of basal cell carcinoma Osteonecrosis of right hip Hiatal hernia History of cholelithiasis Morbid obesity Essential hypertension Type 2 diabetes mellitus with hyperglycemia, without long-term current use of insulin Irritable bowel syndrome (IBS) Surgical History S/P CLARE-BSO (total abdominal hysterectomy and bilateral salpingo-oophorectomy) S/P cardiac catheterization History of hysterectomy H/O hernia repair Hx of section History of hip surgery Hx of colonoscopy History of cholecystectomy Family History Father Myocardial infarction Cardiovascular disease Mother Diabetes mellitus Essential hypertension Daughter Anxiety disorder Mental health disorder Son Mental health disorder Social History Household Members: Spouse and Children Housing: House Are you a primary career information specialist to a significant other at home: No Do you presently have visiting nurse or other home services: No Alcohol intake: never Comment: pt refuses alarms Patient Tobacco Use Status: Never used Tobacco e-Cigarette/Vaping Use: Never Used Second Hand Smoke Exposure: No Advance Directives Date on File: 04/08/22 service: No Current occupational status: retired Current occupational exposures/hazards: No Cognitive needs: No Hearing needs: No Vision needs: Yes Questionnaire PHQ-9 Over the last 2 weeks, how often have you been bothered by any of the following problems? 1. Little interest or pleasure in doing things: not at all 2. Feeling down, depressed, or hopeless: not at all 3. Trouble falling or staying asleep, or sleeping too much: not at all 4. Feeling tired or having little energy: not at all 5. Poor appetite or overeating: not at all 6. Feeling bad about yourself - or that you are a failure or have let yourself or your family down: not at all 7. Trouble concentrating on things, such as reading the newspaper or watching television: not at all 8. Moving or speaking so slowly that other people could have noticed. Or the opposite - being so fidgety or restless that you have been moving around a lot more than usual: not at all 9. Thoughts that you would be better off or of hurting yourself in some way: not at all Total score: 0 Depression Screening Interpretation: Negative Depression Screening Done: Yes 25904 - PHQ-9 Billing: Yes Source: Developed by Drs. Uriel Falk, Rosie Felipe, Hasmukh Kumar and colleagues, with an educational sandra from [employer]. Thrive Questionnaire Date Thrive assessed: 07/16/24 I am a: Patient What is your living situation today?: I have a steady place to live Within the past 12 months, did the food you bought not last and you didn't have the money to get more?: Never true Within the past 12 months, did you worry whether your food would run out before you got money to buy more?: Never true Do you have trouble paying for medicines?: No Do you have trouble getting transportation to medical appointments?: No Do you have trouble paying your heating and electricity bill?: No Do you have trouble taking care of your child, family member or friend?: No Do you have trouble with day-to-day activities such as bathing, preparing meals, shopping, managing finances, etc.?: No Are you currently unemployed and looking for a job?: No Are you interested in more education?: No THRIVE Score: 0 AUDIT C Alcohol Use Questionnaire (AUDIT-C) 1. How often do you have a drink containing alcohol?: Never Total Score: 0 HUMAIRA-7 AMB Questionnaire HUMAIRA-7 Date HUMAIRA - 7 assessed: 07/16/24 Feeling nervous, anxious, or on edge: 0 = Not at all Not being able to stop or control worryin = Not at all Worrying too much about different things: 0 = Not at all Trouble relaxin = Not at all Being so restless that it is hard to sit still: 0 = Not at all Becoming easily annoyed or irritable: 0 = Not at all Feeling afraid as if something awful might happen: 0 = Not at all Total HUMAIRA-7 score (0-4 normal; 5-9 mild; 10-14 moderate; 15-21 severe): 0 Source: Developed by Drs. Uriel Falk, Rosie Felipe, Hasmukh Kumar and colleagues, with an educational sandra from [employer]. HUMAIRA-7 Assessment Billing HUMAIRA-7 Assessment Tool: HUMAIRA-7 Assessment 20668 Review of Systems Const Denies chills, Denies fatigue, Denies fever(s), Denies frequent falls, Denies weakness and Denies weight loss ENT Denies dizziness Card Denies chest pain, Denies leg edema, Denies lightheadedness, Denies dyspnea and Denies dyspnea on exertion Resp Denies cough, Denies dyspnea and Denies dyspnea on exertion GI Denies hematochezia Musc Denies muscle weakness and Denies numbness Neuro Denies dizziness, Denies frequent falls, Denies numbness and Denies weakness Psych Reports no additional complaints Endo Denies fatigue Jace/Lymph Reports no additional complaints Physical exam (Primary Care) Tobacco/Smoking Status: Tobacco use Status Tobacco use date assessed 07/16/24 07/16/24 08:28 Patient Tobacco Use Status Never used Tobacco 07/16/24 08:28 e-Cigarette/Vaping Use Never Used 07/16/24 08:28 PHQ-9: PHQ-9 Score PHQ-9: Total score 0 07/16/24 08:31 Depression Screening Interpretation: Negative Thrive Assessment: Date of Thrive Assessment Date Thrive assessed 07/16/24 07/16/24 08:29 Results Reviewed Results Reviewed: Name: July Dorantes Age/Sex: 69/F : 1955 Unit#: [id number] Attend Dr: Lily Menjivar MD Re07/15/24 Status: DEP REF Location: [facility] Disch: SPEC : [id number] XIMENA: 07/15/24-1099 STATUS: COMP REQ : [id number] RECD: 07/15/24-[address]: Vikash Malin MD COMP: 07/15/24-1328 ENTERED: 07/15/24-[address]: Lily Menjivar MD, Dianne E PA ORDERED: BMP, AST, ALT, Lipid Panel Test Result Flag Reference Sodium 139 135-145 mmol/L Potassium 4.0 3.3-5.1 mmol/L CL 100 96-108 mmol/L CO2 28 22-29 mmol/L Gap 15 12-20 BUN 39 H 9-16 mg/dL Creat 1.33 0.5-1.4 mg/dL eGFR 40 Chronic Kidney Disease: Estimated GFR < 60 mL/min/1.73m2 Severe Kidney Disease: Estimated GFR < 15 mL/min/1.73m2 Glucose, Random 171 H 60-115 mg/dL CA 8.9 # 8.4-10.2 mg/dL AST (GOT) 17 5-31 U/L ALT (GPT) 9 0-31 U/L Triglyceride 201 H <150 mg/dL Desirable Triglyceride: less than 150 mg/dL Borderline High Triglyceride 150-199 mg/dL High Triglyceride: 200-499 mg/dL Very High Triglyceride: greater than or equal to 5OO mg/dL Cholesterol 122 <200 mg/dL Desirable Cholesterol: less than 200 mg/dL Borderline High Cholesterol: 200-239 mg/dL High Cholesterol: greater than 239 mg/dL LDL Calculated 48 <100 mg/dL Desirable LDL: less than 100 mg/dL Near Optimal/Above Optimal LDL: 110-129 mg/dL Borderline High LDL: 130-159 mg/dL High LDL: 160-189 mg/dL Very High LDL: greater than or equal to 190 mg/dL HDL 34 L >40 mg/dL Desirable HDL: greater than 40 mg/dL Note: This HDL assay may give artificially low results in patients with liver disease. Coding Level of Care Code Tele Est Pt Level 4 (75514) Diagnoses Mixed dyslipidemia E78.2 Type 2 diabetes mellitus with hyperglycemia, with long-term current use of insulin E11.65; Z79.4 Stage 3 chronic kidney disease, unspecified whether stage 3a or 3b CKD N18.30 Chronic kidney disease stage 3 subtype: unspecified whether 3a or 3b Current use of anticoagulant therapy Z79.01 Paroxysmal atrial fibrillation I48.0 Additional Codes PHQ-9 - 76785 - PHQ-9 Billing: Yes ([id number]) HUMAIRA-7 Assessment Billing - HUMAIRA-7 Assessment Tool: HUMAIRA-7 Assessment 29807 ([id number]) Assessment & Plan Assessment & Plan (1) Mixed dyslipidemia: Code(s): E78.2 - Mixed hyperlipidemia Category: Medical Plan: Reviewed recent fasting lab results with patient which showed lipids within normal limits except for low good cholesterol levels. Continued on atorvastatin 40 mg daily, reinforced importance of following a low-cholesterol diet and getting regular weight-bearing exercise, will check levels again in six-months (2) Type 2 diabetes mellitus with hyperglycemia, with long-term current use of insulin: Code(s): E11.65 - Type 2 diabetes mellitus with hyperglycemia; Z79.4 - skilled nursing (current) use of insulin Category: Medical Plan: Followed by endocrine clinic currently on Trulicity, Humalog and Novolin N (3) CKD (chronic kidney disease) stage 3, GFR 30-59 ml/min: Code(s): N18.30 - Chronic kidney disease, stage 3 unspecified Category: Medical Qualifiers: Chronic kidney disease stage 3 subtype: unspecified whether 3a or 3b Qualified Code(s): N18.30 - Chronic kidney disease, stage 3 unspecified Plan: renal function staying stable, currently on losartan 25 mg daily, reinforced again importance of following recommended diet and staying active currently followed by Dr. 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 Category: Medical Plan: Refill sent for her Coumadin prescription (5) Paroxysmal atrial fibrillation: Code(s): I48.0 - Paroxysmal atrial fibrillation Category: Medical Plan: Currently on warfarin, [facility], followed by cardiology Orders: Orders Complete Blood Count Auto Diff 01/15/25 E11.42 - Type 2 diabetes mellitus with diabetic polyneuropathy, E11.65 - Type 2 diabetes mellitus with hyperglycemia, E55.9 - Vitamin D deficiency, unspecified, E78.2 - Mixed hyperlipidemia, I48.0 - Paroxysmal atrial fibrillation, N18.30 - Chronic kidney disease, stage 3 unspecified, Z79.01 - skilled nursing (current) use of anticoagulants, Z79.4 - 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 Lipid Panel 01/15/25 E11.42 - Type 2 diabetes mellitus with diabetic polyneuropathy, E11.65 - Type 2 diabetes mellitus with hyperglycemia, E55.9 - Vitamin D deficiency, unspecified, E78.2 - Mixed hyperlipidemia, I48.0 - Paroxysmal atrial fibrillation, N18.30 - Chronic kidney disease, stage 3 unspecified, Z79.01 - 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, Z79.4 - skilled nursing (current) use of insulin Alanine Aminotransferase 01/15/25 E11.42 - Type 2 diabetes mellitus with diabetic polyneuropathy, E11.65 - Type 2 diabetes mellitus with hyperglycemia, E55.9 - Vitamin D deficiency, unspecified, E78.2 - Mixed hyperlipidemia, I48.0 - Paroxysmal atrial fibrillation, N18.30 - Chronic kidney disease, stage 3 unspecified, Z79.01 - skilled nursing (current) use of anticoagulants, Z79.4 - 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 Basic Metabolic Panel Fasting 01/15/25 E11.42 - Type 2 diabetes mellitus with diabetic polyneuropathy, E11.65 - Type 2 diabetes mellitus with hyperglycemia, E55.9 - Vitamin D deficiency, unspecified, E78.2 - Mixed hyperlipidemia, I48.0 - Paroxysmal atrial fibrillation, N18.30 - Chronic kidney disease, stage 3 unspecified, Z79.01 - skilled nursing (current) use of anticoagulants, Z79.4 - 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 Aspartate Amino Transferase 01/15/25 E11.42 - Type 2 diabetes mellitus with diabetic polyneuropathy, E11.65 - Type 2 diabetes mellitus with hyperglycemia, E55.9 - Vitamin D deficiency, unspecified, E78.2 - Mixed hyperlipidemia, I48.0 - Paroxysmal atrial fibrillation, N18.30 - Chronic kidney disease, stage 3 unspecified, Z79.01 - skilled nursing (current) use of anticoagulants, Z79.4 - skilled nursing (current) use of insulin Vitamin D 25-OH Total 01/15/25 E11.42 - Type 2 diabetes mellitus with diabetic polyneuropathy, E11.65 - Type 2 diabetes mellitus with hyperglycemia, E55.9 - Vitamin D deficiency, unspecified, E78.2 - Mixed hyperlipidemia, I48.0 - Paroxysmal atrial fibrillation, N18.30 - Chronic kidney disease, stage 3 unspecified, Z79.01 - skilled nursing (current) use of anticoagulants, Z79.4 - skilled nursing (current) use of insulin Medications: Refilled atorvastatin 40 mg PO DAILY 90 tabs 3RF warfarin See Protocol Warfarin 2.5mg tablet, 1 to 2 tablets daily as directed 60 tabs 5RF
--- OUTSIDE RECORDS SUMMARY | 2024-07-16 08:53 | XMS_ITS | Clinical Summary ---
Author Organization [facility] Facility Address [address] [address] Care Team Providers Care Reading Specialist Name Role Phone Jo Menjivar MD Primary Care Provider +1- [phone] Social History Tobacco Use Types Packs/Day Years [...] Health Medicare [employer] Medicare Care Teams Reading Specialist Relationship Specialty Start Date End Date Jo Menjivar MD 1960 [place] [address] PCP - General Internal Medicine 04/30/22
== END 2024-07-16 09:39 | disposition home or self-care (01) ==
LOC: HO.HMCC 08:29
PROVIDERS: PCP Internal Medicine; Visit Provider Internal Medicine
DX: E11.65 Type 2 diabetes mellitus with hyperglycemia (principal); Z79.4 Long term (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 of insulin; N18.30 Chronic kidney disease, stage 3 unspecified; I48.0 Paroxysmal atrial fibrillation; E78.2 Mixed hyperlipidemia; Z79.01 Long term (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 of anticoagulants

== ENCOUNTER → 2024-07-16 08:29 | Outpatient (BNVA) | payer MEDICARE, SELFPAY | PROVIDERS: PCP Internal Medicine; Visit Provider Internal Medicine | DX: E11.65 Type 2 diabetes mellitus with hyperglycemia (principal); E11.22 Type 2 diabetes mellitus with diabetic chronic kidney disease; E11.51 Type 2 diabetes mellitus with diabetic peripheral angiopathy without gangrene; E11.42 Type 2 diabetes mellitus with diabetic polyneuropathy; I13.0 Hypertensive heart and chronic kidney disease with heart failure and stage 1 through stage 4 chronic kidney disease, or unspecified chronic kidney disease; I50.9 Heart failure, unspecified; I48.0 Paroxysmal atrial fibrillation; I25.10 Atherosclerotic heart disease of native coronary artery without angina pectoris; N18.30 Chronic kidney disease, stage 3 unspecified; I44.7 Left bundle-branch block, unspecified; E78.2 Mixed hyperlipidemia; Z79.4 Long term (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 of insulin; Z95.0 Presence of cardiac pacemaker; Z79.01 Long term (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 of anticoagulants | CPT/HCPCS: 82947; 96127; 99212 ==

== ENCOUNTER 2024-07-16 12:54 | Outpatient (AMB) | payer MEDICARE, SELFPAY ==
[2024-07-16 13:07] VITALS: BP 104/62; PULSE 67; O2SAT 93; BMI 41.4
--- NOTE | 2024-07-16 13:07 | MHC.OFFVIS ---
Vital Signs 07/16/24 13:07 Height 5 ft 4 in Weight 240 lb 15.444 oz BMI 41.4 BP 104/62 Blood Pressure Location Rt brachial Position Sitting Pulse 67 Pulse Source Pulse Oximeter Pulse Oximetry (%) 93 Oxygen Delivery Method Room Air Intake Visit Reasons: Type II diabetes Intake Note: Patient present today to follow up on Type 2 Diabetes Mellitus. Last Diabetic Eye exam: Over one year ago Last Podiatry Visit: Does not see a Telephone Triage Nurse Random Glucose: 204mg/dl HgA1C: 8.2% 07/15/2024 Roofer Required: No Accompanied by: Self / Same As Patient Allergies red dye [Red Dye] Allergy (Severe, Verified 07/16/24 13:13) HIVES,THROAT CLOSES FROM RED FOOD DYE tape Adverse Reaction (Intermediate, Uncoded 07/16/24 13:13) Redness of Skin Medication List - Last Reconciled 07/16/24 by ROBBIE Rangel albuterol sulfate 90 mcg/actuation 180 mcg inhalation Q6H PRN atorvastatin 40 mg PO DAILY blood sugar diagnostic (FreeStyle Lite Strips) As directed check sugar twice a day before meals blood-glucose meter (FreeStyle Lite Meter kit) As directed bumetanide 2 mg twice daily alternating with 3 mg twice daily, as before carvedilol 6.25 mg PO BID cholecalciferol (vitamin D3) 25 mcg PO DAILY clotrimazole 1% (Athlete's Foot (clotrimazole)) 1 appl topical BID 4 weeks dulaglutide (Trulicity) 4.5 mg (0.5 mL) subcut QWEEK dulaglutide (Trulicity) 3 mg subcut QWEEK flash glucose scanning reader (FreeStyle Tabatha 2 [place]) As directed flash glucose sensor (FreeStyle Tabatha 2 Sensor kit) APPLY 1 SENSOR TOPICALLY AND LEAVE IN PLACE FOR 14 DAYS TO MONITOR BLOOD GLUCOSE DIRECTED BY THE DOCTOR. CHANGE SENSOR EVERY 14 DAYS insulin lispro (Humalog Tempo Pen (U-100) Insulin) subcutaneously 3 times a day; 18-22 units before meals insulin NPH isoph U-100 human (Novolin N FlexPen) 28 units subcut BID insulin syringe-needle U-100 (BD Veo Insulin Syringe Ultra-Fine) As directed twice a day lancets (FreeStyle Lancets) As directed losartan 25 mg PO DAILY nystatin (Nystop) 1 appl topical BID PRN pen needle, diabetic (BD Ultra-Fine Short Pen Needle) USE 4 times a day Saccharomyces boulardii (Digest Probiotic (S.boulardii)) PO PRN [scale-accommodate weight 300 lbs As directed] spironolactone 25 mg PO DAILY 90 days warfarin See Protocol Warfarin 2.5mg tablet, 1 to 2 tablets daily as directed [wheelchair As directed] HPI Comments Details: This is a 69-year-old female with a past medical history of PAD, paroxysmal atrial fibrillation, CAD, chronic anticoagulation, CKD stage 3, heart failure with reduced ejection fraction, type 2 diabetes, hypertension and hyperlipidemia presenting for diabetic management. Her hemoglobin A1c is down to 8.2% 07/15/2024. Current regimen is insulin NPH 26 units twice daily (insurance does not cover alternatives), Humalog 18-20 units 2-3 times daily before meals (first meal usually at 11am) and Trulicity 3 mg weekly (4.5 mg was submitted, but it was not dispensed because it needs to go through [employer] - patient says there is a form she needs to send back to them. She denies side effects on the regimen. Past medications: SGLT2 too expensive. She does not have her glucometer today. Patient reports that when she has a hard carbohydrate meal her blood sugars are still going above 200. Denies hypoglycemic events. Microvascular complications: Nephropathy (CKD), neuropathy Macrovascular complications: PAD, CAD Eye exam- due, and she will schedule this Fibrosis-4 score 1.43% (advanced fibrosis excluded) 07/16/24. ROS: Constitutional: No unexplained weight loss, fever, chills, fatigue or night sweats. Eyes: No vision changes Respiratory: No shortness of breath Cardiovascular: No chest pain Gastrointestinal: No abdominal pain Neurologic: No headache, dizziness, syncope Skin: Denies open wounds. Physical exam: Constitutional: Alert, in no distress. Eyes: Pupils are equal, round and reactive to light. Extraocular muscles intact.. Neck: Supple, Full range of motion. No lymphadenopathy. No palpable thyroid masses. Respiratory: Clear to auscultation. Cardiovascular: S1 S2 regular. No murmurs. Feet: Declined foot exam. [facility] Medical History Diabetic neuropathy Cardiac resynchronization therapy defibrillator (MANUFACTURING HELPER-D) in place History of COVID-19 Paroxysmal atrial fibrillation CHF (congestive heart failure) Left bundle branch block History of uterine cancer Personal history of malignant neoplasm of other parts of uterus Tinea pedis History of cardioversion Cardiomyopathy Coronary arteriosclerosis Ischemic cardiomyopathy Colonoscopy refused Incomplete left bundle branch block (LBBB) Post-menopausal bleeding Type 2 diabetes mellitus with hyperglycemia, with long-term current use of insulin Vitamin D deficiency Mixed dyslipidemia Papanicolaou smear declined Mammogram declined Osteoarthritis, knee Diabetic neuropathy History of esophagitis Mild intermittent asthma History of basal cell carcinoma Osteonecrosis of right hip Hiatal hernia History of cholelithiasis Morbid obesity Essential hypertension Type 2 diabetes mellitus with hyperglycemia, without long-term current use of insulin Irritable bowel syndrome (IBS) Surgical History S/P CLARE-BSO (total abdominal hysterectomy and bilateral salpingo-oophorectomy) S/P cardiac catheterization History of hysterectomy H/O hernia repair Hx of section History of hip surgery Hx of colonoscopy History of cholecystectomy Family History Father Myocardial infarction Cardiovascular disease Mother Diabetes mellitus Essential hypertension Daughter Anxiety disorder Mental health disorder Son Mental health disorder Social History Household Members: Spouse and Children Housing: House Are you a primary animal caretaker to a significant other at home: No Do you presently have visiting nurse or other home services: No Alcohol intake: never Comment: pt refuses alarms Patient Tobacco Use Status: Never used Tobacco e-Cigarette/Vaping Use: Never Used Second Hand Smoke Exposure: No Advance Directives Date on File: 04/08/22 service: No Current occupational status: retired Current occupational exposures/hazards: No Cognitive needs: No Hearing needs: No Vision needs: Yes Results Reviewed Results Reviewed: Laboratory Tests 01/23/24 07/15/24 14:30 11:00 Plt Count 270 Creatinine 1.33 Estimated GFR 40 Hemoglobin A1c % 8.2 H AST 17 ALT 9 Triglycerides 201 H Cholesterol 122 LDL Cholesterol, Calc 48 HDL Cholesterol 34 L Urine Creatinine 70.67 Urine Microalbumin 15.0 Microalb/Creat Ratio 21.2 Assessment & Plan Assessment & Plan (1) Type 2 diabetes mellitus with hyperglycemia, with long-term current use of insulin: Code(s): E11.65 - Type 2 diabetes mellitus with hyperglycemia; Z79.4 - rodent 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 of insulin Category: Medical (2) Diabetic neuropathy: Code(s): E11.40 - Type 2 diabetes mellitus with diabetic neuropathy, unspecified Category: Medical Qualifiers: Diabetes mellitus type: type 2 Diabetes mellitus complication detail: diabetic polyneuropathy Qualified Code(s): E11.42 - Type 2 diabetes mellitus with diabetic polyneuropathy Plan In summary this is a 69-year-old female with uncontrolled type 2 diabetes with micro and macrovascular complications on her current regimen. Increase NPH to 28 units twice a day. Increase Trulicity to 4.5 mg weekly. She will complete the form for [employer]. We discussed trying alternative GLP 1 to promote weight loss, but she declined at this time. Continue Humalog to 18 units before meals. If she is having a high carbohydrate meal advised her to use 22 units of Humalog before the meal. Instructed to bring glucometer to all appointments. Diabetic diet reviewed. Declines referral to diabetic education/dietitian at this time. If you experience low blood sugar, treat this by eating a chewable fruit candy like skittles or jelly beans (about 8 pieces), 4 ounces (1/2 cup) of fruit juice (not diet), 1 tablespoon of honey or 4 glucose tablets. If your blood sugar is under 55, take double the amount of one of the above. Recheck your blood sugar in 15 minutes. Follow up in 6 weeks for type 2 diabetes. Patient Instructions: Increase NPH insulin to 28 units twice daily. Increase Trulicity to 4.5 mg weekly. Continue Humalog to 18 units before meals. Use 22 units if it's a high carb meal. If you experience low blood sugar, treat this by eating a chewable fruit candy like skittles or jelly beans (about 8 pieces), 4 ounces (1/2 cup) of fruit juice (not diet), 1 tablespoon of honey or 4 glucose tablets. If your blood sugar is under 55, take double the amount of one of the above. Recheck your blood sugar in 15 minutes. Coding Level of Care Code Est Pt Level 4 (32448) Complex EM visit Add On G2211 Diagnoses Type 2 diabetes mellitus with hyperglycemia, with long-term current use of insulin E11.65; Z79.4 Diabetic polyneuropathy associated with type 2 diabetes mellitus E11.42 Diabetes mellitus type: type 2 Diabetes mellitus complication detail: diabetic polyneuropathy
--- OUTSIDE RECORDS SUMMARY | 2024-07-16 13:17 | XMS_ITS | Clinical Summary ---
Author Organization [facility] Facility Address [address] [address] Care Team Providers Care Tub Washer Name Role Phone Jo Menjivar MD Primary Care Provider [phone] Social History Tobacco Use Types Packs/Day Years [...] Health Medicare [employer] Medicare Care Teams Tub Washer Relationship Specialty Start Date End Date Jo Menjivar MD 1960 [place] [address] PCP - General Internal Medicine 04/30/22
[2024-07-16 13:19] LABS: Glucose, Whole Blood 204 mg/dL (60-115)
== END 2024-07-16 13:39 | disposition home or self-care (01) ==
LOC: HO.ENCR 12:55
PROVIDERS: PCP Internal Medicine; Visit Provider Physician Assistant Medical
DX: E11.65 Type 2 diabetes mellitus with hyperglycemia (principal); Z79.4 Long term (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 of insulin; E11.42 Type 2 diabetes mellitus with diabetic polyneuropathy

== ENCOUNTER 2024-07-28 11:15 | Outpatient (AMB) | payer MEDICARE, SELFPAY ==
--- NOTE | 2024-07-28 11:24 | MHC.OFFVIS ---
Vital Signs 07/28/24 11:26 Height 5 ft 4 in Weight 237 lb 3.478 oz BMI 40.7 BP 124/60 Blood Pressure Location Rt brachial Position Sitting Pulse 67 Pulse Source Pulse Oximeter Intake Visit Reasons: 4m follow up Intake Note: 4 mth f/up Dedicated Regional Driver Required: No Accompanied by: Self / Same As Patient Allergies red dye [Red Dye] Allergy (Severe, Verified 07/17/24 01:16) HIVES,THROAT CLOSES FROM RED FOOD DYE tape Adverse Reaction (Intermediate, Uncoded 07/17/24 01:16) Redness of Skin Medication List - Last Reconciled 07/28/24 by Cesar Storey MD albuterol sulfate 90 mcg/actuation 180 mcg inhalation Q6H PRN atorvastatin 40 mg PO DAILY blood sugar diagnostic (FreeStyle Lite Strips) As directed check sugar twice a day before meals blood-glucose meter (FreeStyle Lite Meter kit) As directed bumetanide 2 mg twice daily alternating with 3 mg twice daily, as before carvedilol 6.25 mg PO BID cholecalciferol (vitamin D3) 25 mcg PO DAILY clotrimazole 1% (Athlete's Foot (clotrimazole)) 1 appl topical BID 4 weeks dulaglutide (Trulicity) 4.5 mg (0.5 mL) subcut QWEEK dulaglutide (Trulicity) 3 mg subcut QWEEK flash glucose scanning reader ([employer]Style Tabatha 2 [place]) As directed flash glucose sensor (FreeStyle Tabatha 2 Sensor kit) APPLY 1 SENSOR TOPICALLY AND LEAVE IN PLACE FOR 14 DAYS TO MONITOR BLOOD GLUCOSE DIRECTED BY THE DOCTOR. CHANGE SENSOR EVERY 14 DAYS insulin lispro (Humalog Tempo Pen (U-100) Insulin) subcutaneously 3 times a day; 18-22 units before meals insulin NPH isoph U-100 human (Novolin N FlexPen) 28 units subcut BID insulin syringe-needle U-100 (BD Veo Insulin Syringe Ultra-Fine) As directed twice a day lancets (FreeStyle Lancets) As directed losartan 25 mg PO DAILY nystatin (Nystop) 1 appl topical BID PRN pen needle, diabetic (BD Ultra-Fine Short Pen Needle) USE 4 times a day Saccharomyces boulardii (Digest Probiotic (S.boulardii)) PO PRN [scale-accommodate weight 300 lbs As directed] spironolactone 25 mg PO DAILY 90 days warfarin See Protocol Warfarin 2.5mg tablet, 1 to 2 tablets daily as directed [wheelchair As directed] HPI Comments Details: 69-year-old female with 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 She previously had atrial fibrillation for which she underwent cardioversion was started on amiodarone. She had successful cardioversion but unfortunately developed AFib again. She was brought back and cardioverted but later developed 2-1 atrial tachycardia/flutter. She was discharged home medication with a plan to let her be loaded with amiodarone and to re-attempt cardioversion. Unfortunately she developed significant heart failure volume overload and was readmitted to the hospital. She underwent diuresis in the hospital with medication adjustment and eventually underwent cardioversion and has been in sinus rhythm since then. Her blood pressure was low in the hospital and some of her medications were held including valsartan and carvedilol. It appears she was supposed to be on torsemide but when she was discharged home she was put back on her old drug Bumex 2 mg b.i.d.. She also continues to take carvedilol 6.25 mg twice a day along with amiodarone and spironolactone 25 mg once a day. She is here for follow-up. She is denying any significant shortness of breath. She has some fatigue and peripheral edema. She is saying she sleeps on couple of pillows and has not tried to lay flat in bed. She has not been monitoring her weight at home because she does not have a scale at home but at different office visits she felt that her fate was stable. Since May she has gained approximately 7 lb. Repeat echocardiography has shown EF of 30 35%. She is still has LV dilation but ejection fraction is improving. : She returns for follow-up. She is saying she has been doing fine. No chest discomfort or significant shortness of breath. Blood pressure control is good. She is saying off and on she notices swelling in her legs. She is taking 2 mg Bumex twice a day alternating with 3 mg of Bumex twice a day. She has not been laying down flat in bed because she gets significant orthopnea. She also has daytime somnolence and snoring. She did not have sleep study in the past. Continues to be in sinus rhythm but has left bundle-branch block with QRS duration of 154 milliseconds. 12/03/2023: She is here for follow-up. She has been following with our nurse practitioner in the interim. She had ablation done at [facility] and now also has GAMMA OPERATOR D. She has been doing well and doing quite good from cardiovascular viewpoint. No shortness of breath or orthopnea. Off and on she gets some lower extremity edema but overall has been quite stable with Bumex 2 mg b.i.d. and 3 mg b.i.d. on alternate days. No chest discomfort. She is on losartan 25 and spironolactone. Blood pressure is well controlled. Last echocardiography has shown EF of 25-30% in 09/2023. 04/07/2024: She is here for follow-up. She underwent ablation and GAMMA OPERATOR and since then ejection fraction has improved to 50-55%. She has been doing clinically quite well. Off and on notices some swelling in the legs but nothing is progressive. Doing quite well at this point. No anginal symptoms. 07/28/2024: She is here for follow-up. She has been doing well and has no exertional symptoms. No chest discomfort. Fairly euvolemic at this stage. [facility] Medical History Diabetic neuropathy Cardiac resynchronization therapy defibrillator (GAMMA OPERATOR-D) in place History of COVID-19 Paroxysmal atrial fibrillation CHF (congestive heart failure) Left bundle branch block History of uterine cancer Personal history of malignant neoplasm of other parts of uterus Tinea pedis History of cardioversion Cardiomyopathy Coronary arteriosclerosis Ischemic cardiomyopathy Colonoscopy refused Incomplete left bundle branch block (LBBB) Post-menopausal bleeding Type 2 diabetes mellitus with hyperglycemia, with long-term current use of insulin Vitamin D deficiency Mixed dyslipidemia Papanicolaou smear declined Mammogram declined Osteoarthritis, knee Diabetic neuropathy History of esophagitis Mild intermittent asthma History of basal cell carcinoma Osteonecrosis of right hip Hiatal hernia History of cholelithiasis Morbid obesity Essential hypertension Type 2 diabetes mellitus with hyperglycemia, without long-term current use of insulin Irritable bowel syndrome (IBS) Surgical History (Reviewed 07/28/24 @ 11:27 by Candi Marc [facility] [address]) S/P CLARE-BSO (total abdominal hysterectomy and bilateral salpingo-oophorectomy) S/P cardiac catheterization History of hysterectomy H/O hernia repair Hx of section History of hip surgery Hx of colonoscopy History of cholecystectomy Family History (Reviewed 07/28/24 @ 11:27 by Candi Marc [facility] [address]) Father Myocardial infarction Cardiovascular disease Mother Diabetes mellitus Essential hypertension Daughter Anxiety disorder Mental health disorder Son Mental health disorder Social History (Reviewed 07/28/24 @ 11:27 by Candi Marc [facility] [address]) Household Members: Spouse and Children Housing: House Are you a primary child care development specialist to a significant other at home: No Do you presently have visiting nurse or other home services: No Alcohol intake: never Comment: pt refuses alarms Patient Tobacco Use Status: Never used Tobacco e-Cigarette/Vaping Use: Never Used Second Hand Smoke Exposure: No Advance Directives Date on File: 04/08/22 service: No Current occupational status: retired Current occupational exposures/hazards: No Cognitive needs: No Hearing needs: No Vision needs: Yes Review of Systems Const Denies chills, Denies fatigue, Denies fever(s), Denies frequent falls, Denies weakness, Denies weight gain and Denies weight loss ENT Denies dizziness Card Denies chest pain, Denies leg edema, Denies lightheadedness, Denies palpitations, Denies dyspnea and Denies dyspnea on exertion Resp Denies cough, Denies dyspnea and Denies dyspnea on exertion GI Denies hematochezia Musc Denies abnormal gait, Denies muscle weakness, Denies numbness, Denies radiating pain into limb and Denies tingling Neuro Denies abnormal gait, Denies dizziness, Denies frequent falls, Denies numbness, Denies tingling and Denies weakness Endo Denies fatigue and Denies palpitations Physical Exam Vital Signs: Last Vital Signs Pulse 67 07/28/24 11:26 BP 124/60 07/28/24 11:26 BMI result Body Mass Index 40.7 GENERAL APPEARANCE: In no acute distress. NECK: no carotid bruit, no JVD. SKIN: no suspicious lesions, warm and dry. HEART: no murmurs, regular rate and rhythm. LUNGS: Clear to auscultation. ABDOMEN: soft, nontender. EXTREMITIES: Mild edema. PERIPHERAL PULSES: equal. NEUROLOGIC: No gross deficits, AAO X 3 Assessment & Plan Assessment & Plan (1) Cardiac resynchronization therapy defibrillator (GAMMA OPERATOR-D) in place: Comment: [employer] implanted 07/25/2023 Code(s): Z95.810 - Presence of automatic (implantable) cardiac defibrillator Category: Medical (2) Paroxysmal atrial fibrillation: Code(s): I48.0 - Paroxysmal atrial fibrillation Category: Medical (3) HFrEF (heart failure with reduced ejection fraction): Code(s): I50.20 - Unspecified systolic (congestive) heart failure Category: Medical (4) CKD (chronic kidney disease) stage 3, GFR 30-59 ml/min: Code(s): N18.30 - Chronic kidney disease, stage 3 unspecified Category: Medical Qualifiers: Chronic kidney disease stage 3 subtype: unspecified whether 3a or 3b Qualified Code(s): N18.30 - Chronic kidney disease, stage 3 unspecified Plan 69-year-old female who is here for follow-up. She has known history of cardiomyopathy which is more nonischemic then ischemic. She does have underlying coronary disease. Mostly presentations were in the setting of atrial arrhythmia with worsening ejection fractions. She was cardioverted a few times in the past and was on amiodarone and eventually underwent ablation at [facility]. She is now status post GAMMA OPERATOR-D. She had at least moderate coronary disease previously but did not have any anginal symptoms and mostly presentations were clearly tachycardia related. She has been doing well. Blood pressure is well controlled. She is fairly euvolemic with the current Bumex dosing. Repeat echo has shown significant improvement in EF to 50-55%. She is doing well on the current regimen and we will continue this for now. She will see us back in few months. Thank you for allowing me to participate in the care of your patient. Please feel free to contact me if you have any questions. Coding Level of Care Code Est Pt Level 4 (49488) Diagnoses Cardiac resynchronization therapy defibrillator (GAMMA OPERATOR-D) in place Z95.810 Paroxysmal atrial fibrillation I48.0 HFrEF (heart failure with reduced ejection fraction) I50.20 Stage 3 chronic kidney disease, unspecified whether stage 3a or 3b CKD N18.30 Chronic kidney disease stage 3 subtype: unspecified whether 3a or 3b
[2024-07-28 11:26] VITALS: BP 124/60; PULSE 67; BMI 40.7
--- OUTSIDE RECORDS SUMMARY | 2024-07-28 12:18 | XMS_ITS | Clinical Summary ---
Author Organization [facility] Facility Address [address] [address] Care Team Providers Care Lift Operator Name Role Phone Jo Menjivar MD Primary Care Provider [phone]- [phone] Social History Tobacco Use Types Packs/Day Years [...] Health Medicare [employer] Medicare Care Teams Lift Operator Relationship Specialty Start Date End Date Jo Menjivar MD 1960 [place] [address] PCP - General Internal Medicine 04/30/22
== END 2024-07-28 11:56 | disposition home or self-care (01) ==
LOC: HO.HCS 11:16
PROVIDERS: PCP Internal Medicine; Visit Provider Internal Medicine Cardiovascular Disease
DX: Z95.810 Presence of automatic (implantable) cardiac defibrillator (principal); I48.0 Paroxysmal atrial fibrillation; I50.20 Unspecified systolic (congestive) heart failure; N18.30 Chronic kidney disease, stage 3 unspecified
CPT/HCPCS: 99214

== ENCOUNTER → 2024-07-28 11:15 | Outpatient (BNVA) | payer MEDICARE, SELFPAY | PROVIDERS: PCP Internal Medicine; Visit Provider Internal Medicine Cardiovascular Disease | DX: I48.0 Paroxysmal atrial fibrillation (principal); I50.20 Unspecified systolic (congestive) heart failure; N18.30 Chronic kidney disease, stage 3 unspecified; Z95.810 Presence of automatic (implantable) cardiac defibrillator | CPT/HCPCS: 99212 ==

== ENCOUNTER 2024-08-02 13:51 | Outpatient (AMB) | payer MEDICARE, SELFPAY ==
--- OUTSIDE RECORDS SUMMARY | 2024-08-02 13:55 | XMS_ITS | Clinical Summary ---
Author Organization [facility] Facility Address [address] [address] Care Team Providers Care Religious Ritual Slaughterer Name Role Phone Jo Menjivar MD Primary Care Provider [phone]- [phone] Social History Tobacco Use Types Packs/Day Years [...] Health Medicare [employer] Medicare Care Teams Religious Ritual Slaughterer Relationship Specialty Start Date End Date Jo Menjivar MD 1960 [place] [address] PCP - General Internal Medicine 04/30/22
[2024-08-02 14:03] LABS: Prothrombin Time Whole Bld POC 32.3 sec (11.1-13.5); ~PT, ~INR - Anti Coag Clinic 2.7 (0.9-1.1)
--- NOTE | 2024-08-02 14:06 | MHC.OFFVISCO ---
Intake Intake Visit Reasons: Anticoagulation Allergies red dye [Red Dye] Allergy (Severe, Verified 08/02/24 13:57) HIVES,THROAT CLOSES FROM RED FOOD DYE tape Adverse Reaction (Intermediate, Uncoded 08/02/24 13:57) Redness of Skin Medication List - Last Reconciled 08/02/24 by Jeanna Suarez, RN albuterol sulfate 90 mcg/actuation 180 mcg inhalation Q6H PRN atorvastatin 40 mg PO DAILY blood sugar diagnostic (FreeStyle Lite Strips) As directed check sugar twice a day before meals blood-glucose meter (FreeStyle Lite Meter kit) As directed bumetanide 2 mg twice daily alternating with 3 mg twice daily, as before carvedilol 6.25 mg PO BID cholecalciferol (vitamin D3) 25 mcg PO DAILY clotrimazole 1% (Athlete's Foot (clotrimazole)) 1 appl topical BID 4 weeks dulaglutide (Trulicity) 4.5 mg (0.5 mL) subcut QWEEK dulaglutide (Trulicity) 3 mg subcut QWEEK flash glucose scanning reader (BitPosterStyle Tabatha 2 [place]) As directed flash glucose sensor (FreeStyle Tabatha 2 Sensor kit) APPLY 1 SENSOR TOPICALLY AND LEAVE IN PLACE FOR 14 DAYS TO MONITOR BLOOD GLUCOSE DIRECTED BY THE DOCTOR. CHANGE SENSOR EVERY 14 DAYS insulin lispro (Humalog Tempo Pen (U-100) Insulin) subcutaneously 3 times a day; 18-22 units before meals insulin NPH isoph U-100 human (Novolin N FlexPen) 28 units subcut BID insulin syringe-needle U-100 (BD Veo Insulin Syringe Ultra-Fine) As directed twice a day lancets (FreeStyle Lancets) As directed losartan 25 mg PO DAILY nystatin (Nystop) 1 appl topical BID PRN pen needle, diabetic (BD Ultra-Fine Short Pen Needle) USE 4 times a day Saccharomyces boulardii (Digest Probiotic (S.boulardii)) PO PRN [scale-accommodate weight 300 lbs As directed] spironolactone 25 mg PO DAILY 90 days warfarin See Protocol Warfarin 2.5mg tablet, 1 to 2 tablets daily as directed [wheelchair As directed] Nursing Note INR: 2.7 in therapeutic range of 2-3 Medications and supplements reviewed No changes in health, diet, medications, or supplements, Denies any signs and symptoms of bleeding or bruising or clotting. Bleeding, bruising, clotting discussed Nutritional guidance given Dose: 5mg X 6 days and 7.5mg X 1 day F/U INR: 4 weeks Patient verbalizes understanding of instructions given Anti-Coag Initial Assessment Social Hx Patient Tobacco Use Status: Never used Tobacco alcohol intake: never Alcohol intake frequency: does not drink Cardiovascular Hx: HTN, Angina, CAD, CHF, Arrhythmias, Varicose Veins and Other Lung Disease HX: Asthma Endocrine Hx: Diabetes Musculoskeletal Hx: Arthritis Blood Disorder Hx: Hyperlipidemia GI Hx: Ulcers, Bleeding (GI, rectal) and Other Hx: Kidney Disease Neurological Hx: Serious Head Injury and Migraines/Headaches 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 ) Psych. Illness/Depression: No Coding Level of Care Code Est Patient Level 1 Diagnoses Current use of anticoagulant therapy Z79.01 Assessment & Plan Assessment & Plan (1) Current use of anticoagulant therapy: Code(s): Z79.01 - terminal clerk (current) use of anticoagulants Category: Medical
== END 2024-08-02 14:08 | disposition home or self-care (01) ==
LOC: HO.ACS 13:51
PROVIDERS: PCP Internal Medicine; Visit Provider Internal Medicine Medical Oncology
DX: Z79.01 Long term (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 of anticoagulants (principal)

== ENCOUNTER → 2024-08-02 13:51 | Outpatient (BNVA) | payer MEDICARE, SELFPAY | PROVIDERS: PCP Internal Medicine; Visit Provider Internal Medicine Medical Oncology | DX: I48.0 Paroxysmal atrial fibrillation (principal); Z79.01 Long term (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 of anticoagulants; Z51.81 Encounter for therapeutic drug level monitoring | CPT/HCPCS: 85610; 99211 ==

== ENCOUNTER → 2024-08-16 23:59 | Outpatient (BNV) | payer MEDICARE, SELFPAY ==
--- NOTE | 2024-08-17 13:22 | MHC.OFFVIS ---
Intake Visit Reasons: Remote ICD check- [employer] Allergies red dye [Red Dye] Allergy (Severe, Verified 08/02/24 13:57) HIVES,THROAT CLOSES FROM RED FOOD DYE tape Adverse Reaction (Intermediate, Uncoded 08/02/24 13:57) Redness of Skin PFSH Medical History Diabetic neuropathy Cardiac resynchronization therapy defibrillator (STAFF DEVELOPMENT EDUCATOR-D) in place History of COVID-19 Paroxysmal atrial fibrillation CHF (congestive heart failure) Left bundle branch block History of uterine cancer Personal history of malignant neoplasm of other parts of uterus Tinea pedis History of cardioversion Cardiomyopathy Coronary arteriosclerosis Ischemic cardiomyopathy Colonoscopy refused Incomplete left bundle branch block (LBBB) Post-menopausal bleeding Type 2 diabetes mellitus with hyperglycemia, with long-term current use of insulin Vitamin D deficiency Mixed dyslipidemia Papanicolaou smear declined Mammogram declined Osteoarthritis, knee Diabetic neuropathy History of esophagitis Mild intermittent asthma History of basal cell carcinoma Osteonecrosis of right hip Hiatal hernia History of cholelithiasis Morbid obesity Essential hypertension Type 2 diabetes mellitus with hyperglycemia, without long-term current use of insulin Irritable bowel syndrome (IBS) Surgical History S/P CLARE-BSO (total abdominal hysterectomy and bilateral salpingo-oophorectomy) S/P cardiac catheterization History of hysterectomy H/O hernia repair Hx of section History of hip surgery Hx of colonoscopy History of cholecystectomy Family History Father Myocardial infarction Cardiovascular disease Mother Diabetes mellitus Essential hypertension Daughter Anxiety disorder Mental health disorder Son Mental health disorder Social History Household Members: Spouse and Children Housing: House Are you a primary rn care transition to a significant other at home: No Do you presently have visiting nurse or other home services: No Alcohol intake: never Comment: pt refuses alarms Patient Tobacco Use Status: Never used Tobacco e-Cigarette/Vaping Use: Never Used Second Hand Smoke Exposure: No Advance Directives Date on File: 04/08/22 service: No Current occupational status: retired Current occupational exposures/hazards: No Cognitive needs: No Hearing needs: No Vision needs: Yes Office Procedures Cardiac Device Check Cardiac Device Check Details: Remote ICD report generated 08/16/2024. ICD function is adequate. LV pacing 99% of time [id number] Cardiac Interrogation, implant defibrillator w/interim Procedure code (CPT) selection complete Assessment & Plan Assessment & Plan (1) Cardiac resynchronization therapy defibrillator (STAFF DEVELOPMENT EDUCATOR-D) in place: Comment: [employer] implanted 07/25/2023 Code(s): Z95.810 - Presence of automatic (implantable) cardiac defibrillator Category: Medical Plan: See above Coding Level of Care Code Procedure Only Diagnoses Cardiac resynchronization therapy defibrillator (STAFF DEVELOPMENT EDUCATOR-D) in place Z95.810 CPT Codes Cardiac Device Check - Cardiac Device 13: [id number] Cardiac Interrogation, implant defibrillator w/interim ([id number])
== END ==
PROVIDERS: PCP Internal Medicine; Visit Provider Internal Medicine Cardiovascular Disease
DX: Z45.02 Encounter for adjustment and management of automatic implantable cardiac defibrillator (principal)
CPT/HCPCS: 93295

== ENCOUNTER 2024-09-14 09:23 | Outpatient (AMB) | payer MEDICARE, SELFPAY ==
--- NOTE | 2024-09-14 09:25 | A.OFFVIS_ITS ---
Vital Signs 09/14/24 09:28 Height 5 ft 4 in Weight 240 lb 4.862 oz BMI 41.2 BP 118/76 Blood Pressure Location Rt brachial Position Sitting Pulse 73 Pulse Source Pulse Oximeter Pulse Oximetry (%) 96 Oxygen Delivery Method Room Air Intake Visit Reasons: Diabetes Type 2 Intake Note: Patient present today to follow up on Type 2 Diabetes Mellitus. Last Diabetic Eye exam: A year ago Last Podiatry Visit: Does not see a Cloth Printer Helper Most Recent HgA1C: 8.2% 07/15/2024 Random Glucose: 214 mg/dL Hand Or Machine Paster Required: No Accompanied by: Self / Same As Patient Allergies red dye (Red Dye) Allergy (Severe, Verified 09/14/24 09:27) HIVES,THROAT CLOSES FROM RED FOOD DYE tape Adverse Reaction (Intermediate, Uncoded 09/14/24 09:27) Redness of Skin Medication List - Last Reconciled 09/14/24 by ROBBIE Rangel albuterol sulfate 90 mcg/actuation 180 mcg inhalation Q6H PRN atorvastatin 40 mg PO DAILY blood sugar diagnostic (FreeStyle Lite Strips) As directed check sugar twice a day before meals blood-glucose meter (FreeStyle Lite Meter kit) As directed bumetanide 2 mg twice daily alternating with 3 mg twice daily, as before carvedilol 6.25 mg PO BID cholecalciferol (vitamin D3) 25 mcg PO DAILY clotrimazole 1% (Athlete's Foot (clotrimazole)) 1 appl topical BID 4 weeks dulaglutide (Trulicity) 4.5 mg (0.5 mL) subcut QWEEK Held on 05/13/24. Instructions: unable to afford right now dulaglutide (Trulicity) 3 mg subcut QWEEK flash glucose scanning reader (FreeStyle Tabatha 2 [place]) As directed flash glucose sensor (FreeStyle Tabatha 2 Sensor kit) APPLY 1 SENSOR TOPICALLY AND LEAVE IN PLACE FOR 14 DAYS TO MONITOR BLOOD GLUCOSE DIRECTED BY THE DOCTOR. CHANGE SENSOR EVERY 14 DAYS insulin lispro (Humalog Tempo Pen (U-100) Insulin) subcutaneously 3 times a day; 18-22 units before meals insulin NPH isoph U-100 human (Novolin N FlexPen) subcutaneously 2 times a day; 28 units qam and 30 units qpm. insulin syringe-needle U-100 (BD Veo Insulin Syringe Ultra-Fine) As directed twice a day lancets (FreeStyle Lancets) As directed losartan 25 mg PO DAILY nystatin (Nystop) 1 appl topical BID PRN pen needle, diabetic (BD Ultra-Fine Short Pen Needle) USE 4 times a day Saccharomyces boulardii (Digest Probiotic (S.boulardii)) PO PRN [scale-accommodate weight 300 lbs As directed] spironolactone 25 mg PO DAILY 90 days warfarin See Protocol Warfarin 2.5mg tablet, 1 to 2 tablets daily as directed [wheelchair As directed] HPI Comments Details: This is a 69-year-old female with a past medical history of PAD, paroxysmal atrial fibrillation, CAD, chronic anticoagulation, CKD stage 3, heart failure with reduced ejection fraction, type 2 diabetes, hypertension and hyperlipidemia presenting for diabetic management. Her hemoglobin A1c 8.2% 07/15/2024. Reviewed Tabatha 2+ download CGM active 48% Average glucose 173 Very high 6% High 34% Target range 60% 0% hypoglycemia There is a pattern of postprandial hyperglycemia in the afternoon. Current regimen is insulin NPH 26 twice daily. (insurance does not cover alternatives), Humalog 18-22 units 2-3 times daily before meals (first meal usually at 11am) and Trulicity 3 mg weekly. She ran out of Trulicity a couple of weeks ago. The 4.5 mg dosage was never filled. She uses [employer]. She denies side effects on the regimen. Past medications: SGLT2 too expensive. Denies hypoglycemic events. Microvascular complications: Nephropathy (CKD), neuropathy Macrovascular complications: PAD, CAD Fibrosis-4 score 1.43% (advanced fibrosis excluded) 07/16/24. ROS: Constitutional: No unexplained weight loss, fever, chills, fatigue or night sweats. Eyes: No vision changes Respiratory: No shortness of breath Cardiovascular: No chest pain Gastrointestinal: No abdominal pain Neurologic: No headache, dizziness, syncope Skin: Denies open wounds. Physical exam: Constitutional: Alert, in no distress. Eyes: Pupils are equal, round and reactive to light. Extraocular muscles intact.. Neck: Supple, Full range of motion. No lymphadenopathy. No palpable thyroid masses. Respiratory: Clear to auscultation. Cardiovascular: S1 S2 regular. No murmurs. Feet: Declined foot exam. [facility] Medical History Diabetic neuropathy Cardiac resynchronization therapy defibrillator (DELIVERY CONSULTANT-D) in place History of COVID-19 Paroxysmal atrial fibrillation CHF (congestive heart failure) Left bundle branch block History of uterine cancer Personal history of malignant neoplasm of other parts of uterus Tinea pedis History of cardioversion Cardiomyopathy Coronary arteriosclerosis Ischemic cardiomyopathy Colonoscopy refused Incomplete left bundle branch block (LBBB) Post-menopausal bleeding Type 2 diabetes mellitus with hyperglycemia, with long-term current use of insulin Vitamin D deficiency Mixed dyslipidemia Papanicolaou smear declined Mammogram declined Osteoarthritis, knee Diabetic neuropathy History of esophagitis Mild intermittent asthma History of basal cell carcinoma Osteonecrosis of right hip Hiatal hernia History of cholelithiasis Morbid obesity Essential hypertension Type 2 diabetes mellitus with hyperglycemia, without long-term current use of insulin Irritable bowel syndrome (IBS) Surgical History S/P CLARE-BSO (total abdominal hysterectomy and bilateral salpingo-oophorectomy) S/P cardiac catheterization History of hysterectomy H/O hernia repair Hx of section History of hip surgery Hx of colonoscopy History of cholecystectomy Family History Father Myocardial infarction Cardiovascular disease Mother Diabetes mellitus Essential hypertension Daughter Anxiety disorder Mental health disorder Son Mental health disorder Social History Household Members: Spouse and Children Housing: House Are you a primary critical care nurse to a significant other at home: No Do you presently have visiting nurse or other home services: No Alcohol intake: never Comment: pt refuses alarms Patient Tobacco Use Status: Never used Tobacco e-Cigarette/Vaping Use: Never Used Second Hand Smoke Exposure: No Advance Directives Date on File: 04/08/22 service: No Current occupational status: retired Current occupational exposures/hazards: No Cognitive needs: No Hearing needs: No Vision needs: Yes Physical Exam Vital Signs: Last Vital Signs Pulse 73 09/14/24 09:28 BP 118/76 09/14/24 09:28 Pulse Ox 96 09/14/24 09:28 Oxygen Delivery Method Room Air 09/14/24 09:28 BMI result Body Mass Index 41.2 Results Reviewed Results Reviewed: Laboratory Tests 01/23/24 07/15/24 14:30 11:00 Plt Count 270 Creatinine 1.33 Estimated GFR 40 Hemoglobin A1c % 8.2 H AST 17 ALT 9 Triglycerides 201 H Cholesterol 122 LDL Cholesterol, Calc 48 HDL Cholesterol 34 L Urine Creatinine 70.67 Urine Microalbumin 15.0 Microalb/Creat Ratio 21.2 Assessment & Plan Assessment & Plan (1) Type 2 diabetes mellitus with hyperglycemia, with long-term current use of insulin: Code(s): E11.65 - Type 2 diabetes mellitus with hyperglycemia; Z79.4 - long term care social worker (current) use of insulin Category: Medical Plan In summary this is a 69-year-old female with uncontrolled type 2 diabetes with micro and macrovascular complications. Continue NPH 26 units twice a day.. I will reach out to Cyndy diallo regarding the prescription for Trulicity 4.5 mg. Continue Humalog to 18-22 units before meals. Instructed to bring glucometer to all appointments. Diabetic diet reviewed. Declines referral to diabetic education/dietitian at this time. If you experience low blood sugar, treat this by eating a chewable fruit candy like skittles or jelly beans (about 8 pieces), 4 ounces (1/2 cup) of fruit juice (not diet), 1 tablespoon of honey or 4 glucose tablets. If your blood sugar is under 55, take double the amount of one of the above. Recheck your blood sugar in 15 minutes. Follow up in 6 weeks for type 2 diabetes. Medications: New dulaglutide (Trulicity) 4.5 mg (0.5 mL) subcut QWEEK 2 mL 5RF Coding Level of Care Code Est Pt Level 4 (43288) Complex EM visit Add On G2211 Diagnoses Type 2 diabetes mellitus with hyperglycemia, with long-term current use of insulin E11.65; Z79.4
[2024-09-14 09:28] VITALS: BP 118/76; PULSE 73; O2SAT 96; BMI 41.2
[2024-09-14 09:37] LABS: Glucose, Whole Blood 214 mg/dL (60-115)
--- OUTSIDE RECORDS SUMMARY | 2024-09-14 10:01 | XMS_ITS | Clinical Summary ---
Author Organization [facility] Facility Address [address] [address] Care Team Providers Care Human Resources District Manager Name Role Phone Jo Menjivar MD Primary Care Provider [phone] Social History Tobacco Use Types Packs/Day Years [...] Health Medicare [employer] Medicare Care Teams Human Resources District Manager Relationship Specialty Start Date End Date Jo Menjivar MD 1960 [place] [address] PCP - General Internal Medicine 04/30/22
== END 2024-09-14 09:55 | disposition home or self-care (01) ==
LOC: HO.ENCR 09:24
PROVIDERS: PCP Internal Medicine; Visit Provider Physician Assistant Medical
DX: E11.65 Type 2 diabetes mellitus with hyperglycemia (principal); Z79.4 Long term (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 of insulin

== ENCOUNTER → 2024-09-14 09:23 | Outpatient (BNVA) | payer MEDICARE, SELFPAY | PROVIDERS: PCP Internal Medicine; Visit Provider Physician Assistant Medical | DX: E11.65 Type 2 diabetes mellitus with hyperglycemia (principal); Z79.01 Long term (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 of anticoagulants; Z79.4 Long term (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 of insulin | CPT/HCPCS: 82947; 85610; 99211; 99212 ==

== ENCOUNTER 2024-09-14 15:19 | Outpatient (AMB) | payer MEDICARE, SELFPAY ==
[2024-09-14 15:28] LABS: Prothrombin Time Whole Bld POC 29.4 sec (11.1-13.5); ~PT, ~INR - Anti Coag Clinic 2.4 (0.9-1.1)
--- NOTE | 2024-09-14 15:28 | MHC.OFFVISCO ---
Intake Intake Visit Reasons: Anticoagulation Allergies red dye (Red Dye) Allergy (Severe, Verified 09/14/24 15:21) HIVES,THROAT CLOSES FROM RED FOOD DYE tape Adverse Reaction (Intermediate, Uncoded 09/14/24 15:21) Redness of Skin Medication List - Last Reconciled 09/14/24 by Jeanna Suarez, RN albuterol sulfate 90 mcg/actuation 180 mcg inhalation Q6H PRN atorvastatin 40 mg PO DAILY blood sugar diagnostic (FreeStyle Lite Strips) As directed check sugar twice a day before meals blood-glucose meter (FreeStyle Lite Meter kit) As directed bumetanide 2 mg twice daily alternating with 3 mg twice daily, as before carvedilol 6.25 mg PO BID cholecalciferol (vitamin D3) 25 mcg PO DAILY clotrimazole 1% (Athlete's Foot (clotrimazole)) 1 appl topical BID 4 weeks dulaglutide (Trulicity) 4.5 mg (0.5 mL) subcut QWEEK flash glucose scanning reader ([employer] Tabatha 2 [place]) As directed flash glucose sensor (FreeStyle Tabatha 2 Sensor kit) APPLY 1 SENSOR TOPICALLY AND LEAVE IN PLACE FOR 14 DAYS TO MONITOR BLOOD GLUCOSE DIRECTED BY THE DOCTOR. CHANGE SENSOR EVERY 14 DAYS insulin lispro (Humalog Tempo Pen (U-100) Insulin) subcutaneously 3 times a day; 18-22 units before meals insulin NPH isoph U-100 human (Novolin N FlexPen) subcutaneously 26 units twice daily insulin syringe-needle U-100 (BD Veo Insulin Syringe Ultra-Fine) As directed twice a day lancets (FreeStyle Lancets) As directed losartan 25 mg PO DAILY nystatin (Nystop) 1 appl topical BID PRN pen needle, diabetic (BD Ultra-Fine Short Pen Needle) USE 4 times a day Saccharomyces boulardii (Digest Probiotic (S.boulardii)) PO PRN [scale-accommodate weight 300 lbs As directed] spironolactone 25 mg PO DAILY 90 days warfarin See Protocol Warfarin 2.5mg tablet, 1 to 2 tablets daily as directed [wheelchair As directed] Nursing Note INR: 2.4 in therapeutic range of 2-3 Pt has a cough with laryngitis. States she feels fine otherwise Medications and supplements reviewed No changes in health, diet, medications, or supplements, Denies any signs and symptoms of bleeding or bruising or clotting. Bleeding, bruising, clotting discussed Nutritional guidance given Dose: 5mg X 6 days and 7.5mg X 1 day (Fri) F/U INR: 4 weeks Patient verbalizes understanding of instructions given Anti-Coag Initial Assessment Social Hx Patient Tobacco Use Status: Never used Tobacco alcohol intake: never Alcohol intake frequency: does not drink Cardiovascular Hx: HTN, Angina, CAD, CHF, Arrhythmias, Varicose Veins and Other Lung Disease HX: Asthma Endocrine Hx: Diabetes Musculoskeletal Hx: Arthritis Blood Disorder Hx: Hyperlipidemia GI Hx: Ulcers, Bleeding (GI, rectal) and Other Hx: Kidney Disease Neurological Hx: Serious Head Injury and Migraines/Headaches 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 ) Psych. Illness/Depression: No Coding Level of Care Code Est Patient Level 1 Diagnoses Current use of anticoagulant therapy Z79.01 Assessment & Plan Assessment & Plan (1) Current use of anticoagulant therapy: Code(s): Z79.01 - superintendent container terminal (current) use of anticoagulants Category: Medical
== END 2024-09-14 15:33 | disposition home or self-care (01) ==
LOC: HO.ACS 15:19
PROVIDERS: PCP Internal Medicine; Visit Provider Internal Medicine Medical Oncology
DX: Z79.01 Long term (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 of anticoagulants (principal)

== ENCOUNTER → 2024-09-21 23:59 | Outpatient (BNV) | payer MEDICARE, SELFPAY ==
--- NOTE | 2024-10-12 16:48 | A.OFFVIS_ITS ---
Intake Visit Reasons: Remote ENDOSCOPIC TECHNICIAN-D monitoring- Lyubov Scient Allergies red dye (Red Dye) Allergy (Severe, Verified 10/12/24 14:16) HIVES,THROAT CLOSES FROM RED FOOD DYE tape Adverse Reaction (Intermediate, Uncoded 10/12/24 14:16) Redness of Skin PFSH Medical History Diabetic neuropathy Cardiac resynchronization therapy defibrillator (ENDOSCOPIC TECHNICIAN-D) in place History of COVID-19 Paroxysmal atrial fibrillation CHF (congestive heart failure) Left bundle branch block History of uterine cancer Personal history of malignant neoplasm of other parts of uterus Tinea pedis History of cardioversion Cardiomyopathy Coronary arteriosclerosis Ischemic cardiomyopathy Colonoscopy refused Incomplete left bundle branch block (LBBB) Post-menopausal bleeding Type 2 diabetes mellitus with hyperglycemia, with long-term current use of insulin Vitamin D deficiency Mixed dyslipidemia Papanicolaou smear declined Mammogram declined Osteoarthritis, knee Diabetic neuropathy History of esophagitis Mild intermittent asthma History of basal cell carcinoma Osteonecrosis of right hip Hiatal hernia History of cholelithiasis Morbid obesity Essential hypertension Type 2 diabetes mellitus with hyperglycemia, without long-term current use of insulin Irritable bowel syndrome (IBS) Surgical History S/P CLARE-BSO (total abdominal hysterectomy and bilateral salpingo-oophorectomy) S/P cardiac catheterization History of hysterectomy H/O hernia repair Hx of section History of hip surgery Hx of colonoscopy History of cholecystectomy Family History Father Myocardial infarction Cardiovascular disease Mother Diabetes mellitus Essential hypertension Daughter Anxiety disorder Mental health disorder Son Mental health disorder Social History Household Members: Spouse and Children Housing: House Are you a primary care transition mgr to a significant other at home: No Do you presently have visiting nurse or other home services: No Alcohol intake: never Comment: pt refuses alarms Patient Tobacco Use Status: Never used Tobacco e-Cigarette/Vaping Use: Never Used Second Hand Smoke Exposure: No Advance Directives Date on File: 04/08/22 service: No Current occupational status: retired Current occupational exposures/hazards: No Cognitive needs: No Hearing needs: No Vision needs: Yes Office Procedures Cardiac Device Check Cardiac Device Check Details: ENDOSCOPIC TECHNICIAN-D Good battery life SCIENTIFIC DATABASE CURATOR 99% No new alerts. [id number] Cardiac Device Interrogation, pacemaker or defibrillator Procedure code (CPT) selection complete Assessment & Plan Assessment & Plan (1) HFrEF (heart failure with reduced ejection fraction): Code(s): I50.20 - Unspecified systolic (congestive) heart failure Category: Medical Plan Coding Level of Care Code Procedure Only Diagnoses HFrEF (heart failure with reduced ejection fraction) I50.20 CPT Codes Cardiac Device Check - Cardiac Device 14: [id number] Cardiac Device Interrogation, pacemaker or defibrillator ([id number])
== END ==
PROVIDERS: PCP Internal Medicine; Visit Provider Internal Medicine Cardiovascular Disease
DX: I50.20 Unspecified systolic (congestive) heart failure (principal); Z95.810 Presence of automatic (implantable) cardiac defibrillator
CPT/HCPCS: 93295

== ENCOUNTER 2024-10-12 14:08 | Outpatient (AMB) | payer MEDICARE, SELFPAY ==
[2024-10-12 14:21] LABS: Prothrombin Time Whole Bld POC 25.0 sec (11.1-13.5); ~PT, ~INR - Anti Coag Clinic 2.1 (0.9-1.1)
--- NOTE | 2024-10-12 14:24 | MHC.OFFVISCO ---
Intake Intake Visit Reasons: Anticoagulation Allergies red dye (Red Dye) Allergy (Severe, Verified 10/12/24 14:16) HIVES,THROAT CLOSES FROM RED FOOD DYE tape Adverse Reaction (Intermediate, Uncoded 10/12/24 14:16) Redness of Skin Medication List - Last Reconciled 10/12/24 by Jeanna Suarez, RN albuterol sulfate 90 mcg/actuation 180 mcg inhalation Q6H PRN atorvastatin 40 mg PO DAILY blood sugar diagnostic (FreeStyle Lite Strips) As directed check sugar twice a day before meals blood-glucose meter (FreeStyle Lite Meter kit) As directed bumetanide 2 mg twice daily alternating with 3 mg twice daily, as before carvedilol 6.25 mg PO BID cholecalciferol (vitamin D3) 25 mcg PO DAILY clotrimazole 1% (Athlete's Foot (clotrimazole)) 1 appl topical BID 4 weeks dulaglutide (Trulicity) 4.5 mg (0.5 mL) subcut QWEEK flash glucose scanning reader ([employer] Tabatha 2 [place]) As directed flash glucose sensor (FreeStyle Tabatha 2 Sensor kit) APPLY 1 SENSOR TOPICALLY AND LEAVE IN PLACE FOR 14 DAYS TO MONITOR BLOOD GLUCOSE DIRECTED BY THE DOCTOR. CHANGE SENSOR EVERY 14 DAYS insulin lispro (Humalog Tempo Pen (U-100) Insulin) subcutaneously 3 times a day; 18-22 units before meals insulin NPH isoph U-100 human (Novolin N FlexPen) subcutaneously 26 units twice daily insulin syringe-needle U-100 (BD Veo Insulin Syringe Ultra-Fine) As directed twice a day lancets (FreeStyle Lancets) As directed losartan 25 mg PO DAILY nystatin (Nystop) 1 appl topical BID PRN pen needle, diabetic (BD Ultra-Fine Short Pen Needle) USE 4 times a day Saccharomyces boulardii (Digest Probiotic (S.boulardii)) PO PRN [scale-accommodate weight 300 lbs As directed] spironolactone 25 mg PO DAILY 90 days warfarin See Protocol Warfarin 2.5mg tablet, 1 to 2 tablets daily as directed [wheelchair As directed] Nursing Note INR: 2.1 in therapeutic range of 2-3 Medications and supplements reviewed No changes in health, diet, medications, or supplements, Denies any signs and symptoms of bleeding or bruising or clotting. Bleeding, bruising, clotting discussed Nutritional guidance given to avoid greens today and to have a serving of foods that raise the INR Dose: 5mg X 6 days and 7.5mg X 1 day (Fri) F/U INR: 4 weeks Patient verbalizes understanding of instructions given Anti-Coag Initial Assessment Social Hx Patient Tobacco Use Status: Never used Tobacco alcohol intake: never Alcohol intake frequency: does not drink Cardiovascular Hx: HTN, Angina, CAD, CHF, Arrhythmias, Varicose Veins and Other Lung Disease HX: Asthma Endocrine Hx: Diabetes Musculoskeletal Hx: Arthritis Blood Disorder Hx: Hyperlipidemia GI Hx: Ulcers, Bleeding (GI, rectal) and Other Hx: Kidney Disease Neurological Hx: Serious Head Injury and Migraines/Headaches 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 ) Psych. Illness/Depression: No Coding Level of Care Code Est Patient Level 1 Diagnoses Current use of anticoagulant therapy Z79.01 Results AMB INR Fingerstick AMB INR Fingerstick 2.1 Last Edit by Jeanna Suarez RN on 10/12/24 14:22 interface delay Assessment & Plan Assessment & Plan (1) Current use of anticoagulant therapy: Code(s): Z79.01 - senior living (current) use of anticoagulants Category: Medical
--- OUTSIDE RECORDS SUMMARY | 2024-10-12 14:50 | XMS_ITS | Clinical Summary ---
Author Organization [facility] Facility Address [address] [address] Care Team Providers Care Tax Preparer Name Role Phone Jo Menjivar MD Primary Care Provider [phone]- [phone] Social History Tobacco Use Types Packs/Day Years [...] Visual Foot Exam 05/10/2022 Influenza Vaccine (#1) 2024 Hepatitis B Vaccine Aged Out No longe r eligible based on patient's age to complete this topic Insurance [facility] Medicare [facility] Medicare Care Teams Tax Preparer Relationship Specialty Start Date End Date Jo Menjivar MD [address] [place] [address] PCP - General Internal Medicine 04/30/22
== END 2024-10-12 14:32 | disposition home or self-care (01) ==
LOC: HO.ACS 14:08
PROVIDERS: PCP Internal Medicine; Visit Provider Internal Medicine Medical Oncology
DX: Z79.01 Long term (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 of anticoagulants (principal)

== ENCOUNTER → 2024-10-12 14:08 | Outpatient (BNVA) | payer MEDICARE, SELFPAY | PROVIDERS: PCP Internal Medicine; Visit Provider Internal Medicine Medical Oncology | DX: I48.0 Paroxysmal atrial fibrillation (principal); Z79.01 Long term (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 of anticoagulants; Z51.81 Encounter for therapeutic drug level monitoring | CPT/HCPCS: 85610; 99211 ==

== ENCOUNTER → 2024-10-25 23:59 | Outpatient (BNV) | payer MEDICARE, SELFPAY ==
--- NOTE | 2024-10-31 20:29 | A.OFFVIS_ITS ---
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- Lyubov Scient Allergies red dye (Red Dye) Allergy (Severe, Verified 10/26/24 10:09) HIVES,THROAT CLOSES FROM RED FOOD DYE metformin Adverse Reaction (Intermediate, Verified 10/26/24 10:22) Diarrhea tape Adverse Reaction (Intermediate, Uncoded 10/26/24 10:09) Redness of Skin PFSH Medical History Diabetic neuropathy Cardiac resynchronization therapy defibrillator (BILINGUAL KINDERGARTEN TEACHER-D) in place History of COVID-19 Paroxysmal atrial fibrillation CHF (congestive heart failure) Left bundle branch block History of uterine cancer Personal history of malignant neoplasm of other parts of uterus Tinea pedis History of cardioversion Cardiomyopathy Coronary arteriosclerosis Ischemic cardiomyopathy Colonoscopy refused Incomplete left bundle branch block (LBBB) Post-menopausal bleeding Type 2 diabetes mellitus with hyperglycemia, with long-term current use of insulin Vitamin D deficiency Mixed dyslipidemia Papanicolaou smear declined Mammogram declined Osteoarthritis, knee Diabetic neuropathy History of esophagitis Mild intermittent asthma History of basal cell carcinoma Osteonecrosis of right hip Hiatal hernia History of cholelithiasis Morbid obesity Essential hypertension Type 2 diabetes mellitus with hyperglycemia, without long-term current use of insulin Irritable bowel syndrome (IBS) Surgical History S/P CLARE-BSO (total abdominal hysterectomy and bilateral salpingo-oophorectomy) S/P cardiac catheterization History of hysterectomy H/O hernia repair Hx of section History of hip surgery Hx of colonoscopy History of cholecystectomy Family History Father Myocardial infarction Cardiovascular disease Mother Diabetes mellitus Essential hypertension Daughter Anxiety disorder Mental health disorder Son Mental health disorder Social History Household Members: Spouse and Children Housing: House Are you a primary patient care coordinator to a significant other at home: No Do you presently have visiting nurse or other home services: No Alcohol intake: never Comment: pt refuses alarms Patient Tobacco Use Status: Never used Tobacco e-Cigarette/Vaping Use: Never Used Second Hand Smoke Exposure: No Advance Directives Date on File: 04/08/22 service: No Current occupational status: retired Current occupational exposures/hazards: No Cognitive needs: No Hearing needs: No Vision needs: Yes Office Procedures Cardiac Device Check Cardiac Device Check Details: BILINGUAL KINDERGARTEN TEACHER-D Battery 11 years. PARTNER MANAGEMENT CONSULTANT 97% No new alerts. [id number] Cardiac Device Interrogation, pacemaker or defibrillator Procedure code (CPT) selection complete Assessment & Plan Assessment & Plan (1) Cardiac resynchronization therapy defibrillator (BILINGUAL KINDERGARTEN TEACHER-D) in place: Comment: [employer] implanted 07/25/2023 Code(s): Z95.810 - Presence of automatic (implantable) cardiac defibrillator Category: Medical Plan Coding Level of Care Code Procedure Only Diagnoses Cardiac resynchronization therapy defibrillator (BILINGUAL KINDERGARTEN TEACHER-D) in place Z95.810 CPT Codes Cardiac Device Check - Cardiac Device 14: [id number] Cardiac Device Interrogation, pacemaker or defibrillator ([id number])
== END ==
PROVIDERS: PCP Internal Medicine; Visit Provider Internal Medicine Cardiovascular Disease
DX: Z45.02 Encounter for adjustment and management of automatic implantable cardiac defibrillator (principal)
CPT/HCPCS: 93295

== ENCOUNTER 2024-10-26 10:05 | Outpatient (AMB) | payer MEDICARE, SELFPAY ==
[2024-10-26 10:06] VITALS: BP 130/56; PULSE 67; O2SAT 98; BMI 41.6
--- NOTE | 2024-10-26 10:06 | A.OFFVIS_ITS ---
Vital Signs 10/26/24 10:06 Height 5 ft 4 in Weight 242 lb 8.136 oz BMI 41.6 BP 130/56 L Blood Pressure Location Rt brachial Position Sitting Pulse 67 Pulse Source Pulse Oximeter Pulse Oximetry (%) 98 Oxygen Delivery Method Room Air Intake Visit Reasons: Type II diabetes Intake Note: Patient present today to follow up on Type 2 Diabetes Mellitus. Last Diabetic Eye exam: Patient needs to call to book an appt Last Podiatry Visit: Does not see a Senior Label Specialist Random Glucose: 242 mg/dL HgA1C: 8.3%, 10/26/2024 Accompanied by: Self / Same As Patient Allergies red dye (Red Dye) Allergy (Severe, Verified 10/26/24 10:09) HIVES,THROAT CLOSES FROM RED FOOD DYE metformin Adverse Reaction (Intermediate, Verified 10/26/24 10:22) Diarrhea tape Adverse Reaction (Intermediate, Uncoded 10/26/24 10:09) Redness of Skin HPI Comments Details: This is a 69-year-old female with a past medical history of PAD, paroxysmal atrial fibrillation, CAD, chronic anticoagulation, CKD stage 3, heart failure with reduced ejection fraction, type 2 diabetes, hypertension and hyperlipidemia presenting for diabetic management. Her hemoglobin A1c today 10/26/2024 is 8.2% 07/15/2024. Reviewed CGM download during the past 2 weeks CGM active 50% Glucose variability 22.5% Average glucose 226 Very high 30% High 30% Target range 20% 0% hypoglycemia She has a pattern of hyperglycemia during the day and overnight. Hyperglycemia worsens postprandially mid day. She has not been able to get Trulicity despite application being sent to [employer]. She thought they may have lost it, but she has not contacted them recently. Current regimen is insulin NPH 26 twice daily. She had to drop down to 20 twice daily because she needed to make it last until her check comes (insurance does not cover alternatives), Humalog 20-22 units 2-3 times daily before meals (first meal usually at 11am) and previously on Trulicity 3 mg weekly. She denies side effects on the regimen. Past medications: SGLT2 too expensive. Metformin caused severe diarrhea. Denies hypoglycemic events. Microvascular complications: Nephropathy (CKD), neuropathy Macrovascular complications: PAD, CAD Fibrosis-4 score 1.43% (advanced fibrosis excluded) 07/16/24. ROS: Constitutional: No unexplained weight loss, fever, chills, fatigue or night sweats. Eyes: No vision changes Respiratory: No shortness of breath Cardiovascular: No chest pain Gastrointestinal: No abdominal pain Neurologic: No headache, dizziness, syncope Skin: Denies open wounds. Physical exam: Constitutional: Alert, in no distress. Eyes: Pupils are equal, round and reactive to light. Extraocular muscles intact.. Neck: Supple, Full range of motion. No lymphadenopathy. No palpable thyroid masses. Respiratory: Clear to auscultation. Cardiovascular: S1 S2 regular. No murmurs. [facility] Medical History Diabetic neuropathy Cardiac resynchronization therapy defibrillator (LEPIDOPTERIST-D) in place History of COVID-19 Paroxysmal atrial fibrillation CHF (congestive heart failure) Left bundle branch block History of uterine cancer Personal history of malignant neoplasm of other parts of uterus Tinea pedis History of cardioversion Cardiomyopathy Coronary arteriosclerosis Ischemic cardiomyopathy Colonoscopy refused Incomplete left bundle branch block (LBBB) Post-menopausal bleeding Type 2 diabetes mellitus with hyperglycemia, with long-term current use of insulin Vitamin D deficiency Mixed dyslipidemia Papanicolaou smear declined Mammogram declined Osteoarthritis, knee Diabetic neuropathy History of esophagitis Mild intermittent asthma History of basal cell carcinoma Osteonecrosis of right hip Hiatal hernia History of cholelithiasis Morbid obesity Essential hypertension Type 2 diabetes mellitus with hyperglycemia, without long-term current use of insulin Irritable bowel syndrome (IBS) Surgical History S/P CLARE-BSO (total abdominal hysterectomy and bilateral salpingo-oophorectomy) S/P cardiac catheterization History of hysterectomy H/O hernia repair Hx of section History of hip surgery Hx of colonoscopy History of cholecystectomy Family History Father Myocardial infarction Cardiovascular disease Mother Diabetes mellitus Essential hypertension Daughter Anxiety disorder Mental health disorder Son Mental health disorder Social History Household Members: Spouse and Children Housing: House Are you a primary care specialist to a significant other at home: No Do you presently have visiting nurse or other home services: No Alcohol intake: never Comment: pt refuses alarms Patient Tobacco Use Status: Never used Tobacco e-Cigarette/Vaping Use: Never Used Second Hand Smoke Exposure: No Advance Directives Date on File: 04/08/22 service: No Current occupational status: retired Current occupational exposures/hazards: No Cognitive needs: No Hearing needs: No Vision needs: Yes Physical Exam Vital Signs: Last Vital Signs Pulse 67 10/26/24 10:06 BP 130/56 L 10/26/24 10:06 Pulse Ox 98 10/26/24 10:06 Oxygen Delivery Method Room Air 10/26/24 10:06 BMI result Body Mass Index 41.6 Results AMB Hemoglobin A1c AMB Hemoglobin A1c 8.3 % Last Edit by UVALDO Rucker on 10/26/24 10:22 Results Reviewed Results Reviewed: Laboratory Last Values Glucose (Clinic) 242 mg/dL (60-115) H 10/26/24 10:12 Hgb A1c (Clinic) 8.3 % (4.0-6.0) H 10/26/24 10:22 Laboratory Tests 01/23/24 07/15/24 14:30 11:00 Plt Count 270 Creatinine 1.33 Estimated GFR 40 Hemoglobin A1c % 8.2 H AST 17 ALT 9 Triglycerides 201 H Cholesterol 122 LDL Cholesterol, Calc 48 HDL Cholesterol 34 L Urine Creatinine 70.67 Urine Microalbumin 15.0 Microalb/Creat Ratio 21.2 Assessment & Plan Assessment & Plan (1) Type 2 diabetes mellitus with hyperglycemia, with long-term current use of insulin: Code(s): E11.65 - Type 2 diabetes mellitus with hyperglycemia; Z79.4 - care home (current) use of insulin Category: Medical Plan In summary this is a 69-year-old female with uncontrolled type 2 diabetes with micro and macrovascular complications. There are socioeconomic barriers to treatment. Continue NPH 26 units twice a day. She is going to revert to this dosing once her check arrives. Continue Humalog 20-22 units before meals. I provided her with the contact number for [employer] to reach back out about her application that was submitted. This in the EMR. Due to issues getting GLP 1, and affordability of SGLT2 and past reaction to metformin I am going to submit glipizide ER 5 mg daily. She is willing to try it. Instructed to bring glucometer to all appointments. Diabetic diet reviewed. Declines referral to diabetic education/dietitian at this time. If you experience low blood sugar, treat this by eating a chewable fruit candy like skittles or jelly beans (about 8 pieces), 4 ounces (1/2 cup) of fruit juice (not diet), 1 tablespoon of honey or 4 glucose tablets. If your blood sugar is under 55, take double the amount of one of the above. Recheck your blood sugar in 15 minutes. Follow up in 4 weeks for type 2 diabetes. 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
[2024-10-26 10:16] LABS: Glucose, Whole Blood 242 mg/dL (60-115)
--- OUTSIDE RECORDS SUMMARY | 2024-10-26 11:05 | XMS_ITS | Clinical Summary ---
Author Organization [facility] Facility Address [address] [address] Care Team Providers Care Plant Associate Name Role Phone Jo Menjivar MD Primary Care Provider [phone]- [phone] Social History Tobacco Use Types Packs/Day Years [...] Health Medicare [facility] [employer] Medicare Care Teams Plant Associate Relationship Specialty Start Date End Date Jo Menjivar MD 1960 [place] [address] PCP - General Internal Medicine 04/30/22
== END 2024-10-26 10:37 | disposition home or self-care (01) ==
LOC: HO.ENCR 10:06
PROVIDERS: PCP Internal Medicine; Visit Provider Physician Assistant Medical
DX: E11.65 Type 2 diabetes mellitus with hyperglycemia (principal); Z79.4 Long term (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 of insulin

== ENCOUNTER → 2024-10-26 10:05 | Outpatient (BNVA) | payer MEDICARE, SELFPAY | PROVIDERS: PCP Internal Medicine; Visit Provider Physician Assistant Medical | DX: E11.65 Type 2 diabetes mellitus with hyperglycemia (principal); Z79.4 Long term (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 of insulin | CPT/HCPCS: 82947; 83036; 99212 ==

== ENCOUNTER 2024-11-09 14:01 | Outpatient (AMB) | payer MEDICARE, SELFPAY ==
[2024-11-09 14:13] LABS: Prothrombin Time Whole Bld POC 27.4 sec (11.1-13.5); ~PT, ~INR - Anti Coag Clinic 2.3 (0.9-1.1)
--- NOTE | 2024-11-09 14:22 | MHC.OFFVISCO ---
Intake Intake Visit Reasons: Anticoagulation Allergies red dye (Red Dye) Allergy (Severe, Verified 11/09/24 14:05) HIVES,THROAT CLOSES FROM RED FOOD DYE metformin Adverse Reaction (Intermediate, Verified 11/09/24 14:05) Diarrhea tape Adverse Reaction (Intermediate, Uncoded 11/09/24 14:05) Redness of Skin Medication List - Last Reconciled 11/09/24 by Marybeth Timmons, RN albuterol sulfate 90 mcg/actuation 180 mcg inhalation Q6H PRN atorvastatin 40 mg PO DAILY blood sugar diagnostic (FreeStyle Lite Strips) As directed check sugar twice a day before meals blood-glucose meter (FreeStyle Lite Meter kit) As directed bumetanide 2 mg twice daily alternating with 3 mg twice daily, as before carvedilol 6.25 mg PO BID cholecalciferol (vitamin D3) 25 mcg PO DAILY clotrimazole 1% (Athlete's Foot (clotrimazole)) 1 appl topical BID 4 weeks dulaglutide (Trulicity) 4.5 mg (0.5 mL) subcut QWEEK flash glucose scanning reader (AppknoxStyle Tabatha 2 [place]) As directed flash glucose sensor (FreeStyle Tabatha 2 Sensor kit) APPLY 1 SENSOR TOPICALLY AND LEAVE IN PLACE FOR 14 DAYS TO MONITOR BLOOD GLUCOSE DIRECTED BY THE DOCTOR. CHANGE SENSOR EVERY 14 DAYS glipizide ER 5 mg PO DAILY insulin lispro (Humalog Tempo Pen (U-100) Insulin) subcutaneously 3 times a day; 20-22 units before meals insulin NPH isoph U-100 human (Novolin N FlexPen) 26 units (0.26 mL) subcut BID 30 days insulin syringe-needle U-100 (BD Veo Insulin Syringe Ultra-Fine) As directed twice a day lancets (FreeStyle Lancets) As directed losartan 25 mg PO DAILY nystatin (Nystop) 1 appl topical BID PRN pen needle, diabetic (BD Ultra-Fine Short Pen Needle) USE 4 times a day Saccharomyces boulardii (Digest Probiotic (S.boulardii)) PO PRN [scale-accommodate weight 300 lbs As directed] spironolactone 25 mg PO DAILY 90 days warfarin See Protocol Warfarin 2.5mg tablet, 1 to 2 tablets daily as directed [wheelchair As directed] Nursing Note INR: 2.3 in therapeutic range Medications and supplements reviewed- She states she cannot afford her medications because she needs to fix her car, she is taking her warfarin, eating healthier and exercising to improve her over all health. blood sugars are still elevate 300s- risk of prolonged elevated blood sugars explained- pt states she is aware. will send to PCP and nurse navigators for assistance in obtaining her medication Denies any signs and symptoms of bleeding or bruising or clotting. Bleeding, bruising, clotting discussed Nutritional guidance given - eat a mix of fruits and vegetables to balance INR and blood sugars Dose: 7.5mg x 1 day/ 5mg x 6 days F/U INR: 1 month Patient verbalizes understanding of instructions given Anti-Coag Initial Assessment Social Hx Patient Tobacco Use Status: Never used Tobacco alcohol intake: never Alcohol intake frequency: does not drink Cardiovascular Hx: HTN, Angina, CAD, CHF, Arrhythmias, Varicose Veins and Other Lung Disease HX: Asthma Endocrine Hx: Diabetes Musculoskeletal Hx: Arthritis Blood Disorder Hx: Hyperlipidemia GI Hx: Ulcers, Bleeding (GI, rectal) and Other Hx: Kidney Disease Neurological Hx: Serious Head Injury and Migraines/Headaches 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 ) Psych. 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
--- OUTSIDE RECORDS SUMMARY | 2024-11-09 14:58 | XMS_ITS | Clinical Summary ---
Author Organization [facility] Facility Address [address] [address] Care Team Providers Care Mountain Or Glacier Guide Name Role Phone Jo Menjivar MD Primary Care Provider [phone]- [phone] Social History Tobacco Use Types Packs/Day Years [...] Health Medicare [facility] Medicare Care Teams [place] Guide Relationship Specialty Start Date End Date Jo Menjivar MD 1960 [place] [address] PCP - General Internal Medicine 04/30/22
== END 2024-11-09 14:56 | disposition home or self-care (01) ==
LOC: HO.ACS 14:01
PROVIDERS: PCP Internal Medicine; Visit Provider Internal Medicine Medical Oncology
DX: Z79.01 Long term (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 of anticoagulants (principal)

== ENCOUNTER → 2024-11-09 14:01 | Outpatient (BNVA) | payer MEDICARE, SELFPAY | PROVIDERS: PCP Internal Medicine; Visit Provider Internal Medicine Medical Oncology | DX: I48.0 Paroxysmal atrial fibrillation (principal); Z51.81 Encounter for therapeutic drug level monitoring; Z79.01 Long term (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 of anticoagulants | CPT/HCPCS: 85610; 99211 ==

== ENCOUNTER 2024-11-10 11:19 | Outpatient (AMB) | payer MEDICARE, SELFPAY ==
--- OUTSIDE RECORDS SUMMARY | 2024-11-10 12:11 | XMS_ITS | Clinical Summary ---
Author Organization [facility] Facility Address [address] [address] Care Team Providers Care Encoding Machine Operator Name Role Phone Jo Menjivar MD Primary Care Provider +1- [phone] Social History Tobacco Use Types Packs/Day Years [...] Health Medicare [facility] Medicare Care Teams Encoding Machine Operator Relationship Specialty Start Date End Date Jo Menjivar MD 1960 [place] [address] PCP - General Internal Medicine 04/30/22
[2024-11-10 12:19] VITALS: BP 110/62; PULSE 65; BMI 41.5
--- NOTE | 2024-11-10 12:19 | MHC.OFFVIS ---
Vital Signs 11/10/24 12:19 Height 5 ft 4 in Weight 242 lb 1.081 oz BMI 41.5 BP 110/62 Blood Pressure Location Rt brachial Position Sitting Pulse 65 Pulse Source Pulse Oximeter Intake Visit Reasons: 3mth f/up Intake Note: 3 mth f/up Cartridge Gauger Required: No Accompanied by: Self / Same As Patient Allergies red dye (Red Dye) Allergy (Severe, Verified 11/09/24 14:05) HIVES,THROAT CLOSES FROM RED FOOD DYE metformin Adverse Reaction (Intermediate, Verified 11/09/24 14:05) Diarrhea tape Adverse Reaction (Intermediate, Uncoded 11/09/24 14:05) Redness of Skin Medication List - Last Reconciled 11/10/24 by Cesar Storey MD albuterol sulfate 90 mcg/actuation 180 mcg inhalation Q6H PRN atorvastatin 40 mg PO DAILY blood sugar diagnostic (FreeStyle Lite Strips) As directed check sugar twice a day before meals blood-glucose meter (FreeStyle Lite Meter kit) As directed bumetanide 2 mg twice daily alternating with 3 mg twice daily, as before carvedilol 6.25 mg PO BID cholecalciferol (vitamin D3) 25 mcg PO DAILY clotrimazole 1% (Athlete's Foot (clotrimazole)) 1 appl topical BID 4 weeks dulaglutide (Trulicity) 4.5 mg (0.5 mL) subcut QWEEK flash glucose scanning reader ([employer] SoftwareStyle Tabatha 2 [place]) As directed flash glucose sensor (FreeStyle Tabatha 2 Sensor kit) APPLY 1 SENSOR TOPICALLY AND LEAVE IN PLACE FOR 14 DAYS TO MONITOR BLOOD GLUCOSE DIRECTED BY THE DOCTOR. CHANGE SENSOR EVERY 14 DAYS glipizide ER 5 mg PO DAILY insulin lispro (Humalog Tempo Pen (U-100) Insulin) subcutaneously 3 times a day; 20-22 units before meals insulin NPH isoph U-100 human (Novolin N FlexPen) 26 units (0.26 mL) subcut BID 30 days insulin syringe-needle U-100 (BD Veo Insulin Syringe Ultra-Fine) As directed twice a day lancets (FreeStyle Lancets) As directed losartan 25 mg PO DAILY nystatin (Nystop) 1 appl topical BID PRN pen needle, diabetic (BD Ultra-Fine Short Pen Needle) USE 4 times a day Saccharomyces boulardii (Digest Probiotic (S.boulardii)) PO PRN [scale-accommodate weight 300 lbs As directed] spironolactone 25 mg PO DAILY 90 days warfarin See Protocol Warfarin 2.5mg tablet, 1 to 2 tablets daily as directed [wheelchair As directed] HPI Comments Details: 69-year-old female with 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 She previously had atrial fibrillation for which she underwent cardioversion was started on amiodarone. She had successful cardioversion but unfortunately developed AFib again. She was brought back and cardioverted but later developed 2-1 atrial tachycardia/flutter. She was discharged home medication with a plan to let her be loaded with amiodarone and to re-attempt cardioversion. Unfortunately she developed significant heart failure volume overload and was readmitted to the hospital. She underwent diuresis in the hospital with medication adjustment and eventually underwent cardioversion and has been in sinus rhythm since then. Her blood pressure was low in the hospital and some of her medications were held including valsartan and carvedilol. It appears she was supposed to be on torsemide but when she was discharged home she was put back on her old drug Bumex 2 mg b.i.d.. She also continues to take carvedilol 6.25 mg twice a day along with amiodarone and spironolactone 25 mg once a day. She is here for follow-up. She is denying any significant shortness of breath. She has some fatigue and peripheral edema. She is saying she sleeps on couple of pillows and has not tried to lay flat in bed. She has not been monitoring her weight at home because she does not have a scale at home but at different office visits she felt that her fate was stable. Since May she has gained approximately 7 lb. Repeat echocardiography has shown EF of 30 35%. She is still has LV dilation but ejection fraction is improving. : She returns for follow-up. She is saying she has been doing fine. No chest discomfort or significant shortness of breath. Blood pressure control is good. She is saying off and on she notices swelling in her legs. She is taking 2 mg Bumex twice a day alternating with 3 mg of Bumex twice a day. She has not been laying down flat in bed because she gets significant orthopnea. She also has daytime somnolence and snoring. She did not have sleep study in the past. Continues to be in sinus rhythm but has left bundle-branch block with QRS duration of 154 milliseconds. 12/03/2023: She is here for follow-up. She has been following with our nurse practitioner in the interim. She had ablation done at [facility] and now also has ANATOMIC PATHOLOGY MANAGER D. She has been doing well and doing quite good from cardiovascular viewpoint. No shortness of breath or orthopnea. Off and on she gets some lower extremity edema but overall has been quite stable with Bumex 2 mg b.i.d. and 3 mg b.i.d. on alternate days. No chest discomfort. She is on losartan 25 and spironolactone. Blood pressure is well controlled. Last echocardiography has shown EF of 25-30% in 09/2023. 04/07/2024: She is here for follow-up. She underwent ablation and ANATOMIC PATHOLOGY MANAGER and since then ejection fraction has improved to 50-55%. She has been doing clinically quite well. Off and on notices some swelling in the legs but nothing is progressive. Doing quite well at this point. No anginal symptoms. 07/28/2024: She is here for follow-up. She has been doing well and has no exertional symptoms. No chest discomfort. Fairly euvolemic at this stage. 11/10/2024: She is here for follow-up. She is saying she has been doing well. She gets some dyspnea when she goes upstairs which is chronic. In her day-to-day life she has no significant symptoms and appears to be clinically stable. Tolerating medications well. [facility] Medical History Diabetic neuropathy Cardiac resynchronization therapy defibrillator (ANATOMIC PATHOLOGY MANAGER-D) in place History of COVID-19 Paroxysmal atrial fibrillation CHF (congestive heart failure) Left bundle branch block History of uterine cancer Personal history of malignant neoplasm of other parts of uterus Tinea pedis History of cardioversion Cardiomyopathy Coronary arteriosclerosis Ischemic cardiomyopathy Colonoscopy refused Incomplete left bundle branch block (LBBB) Post-menopausal bleeding Type 2 diabetes mellitus with hyperglycemia, with long-term current use of insulin Vitamin D deficiency Mixed dyslipidemia Papanicolaou smear declined Mammogram declined Osteoarthritis, knee Diabetic neuropathy History of esophagitis Mild intermittent asthma History of basal cell carcinoma Osteonecrosis of right hip Hiatal hernia History of cholelithiasis Morbid obesity Essential hypertension Type 2 diabetes mellitus with hyperglycemia, without long-term current use of insulin Irritable bowel syndrome (IBS) Surgical History S/P CLARE-BSO (total abdominal hysterectomy and bilateral salpingo-oophorectomy) S/P cardiac catheterization History of hysterectomy H/O hernia repair Hx of section History of hip surgery Hx of colonoscopy History of cholecystectomy Family History Father Myocardial infarction Cardiovascular disease Mother Diabetes mellitus Essential hypertension Daughter Anxiety disorder Mental health disorder Son Mental health disorder Social History Household Members: Spouse and Children Housing: House Are you a primary career development manager to a significant other at home: No Do you presently have visiting nurse or other home services: No Alcohol intake: never Comment: pt refuses alarms Patient Tobacco Use Status: Never used Tobacco e-Cigarette/Vaping Use: Never Used Second Hand Smoke Exposure: No Advance Directives Date on File: 04/08/22 service: No Current occupational status: retired Current occupational exposures/hazards: No Cognitive needs: No Hearing needs: No Vision needs: Yes Review of Systems Const Denies chills, Denies fatigue, Denies fever(s), Denies frequent falls, Denies weakness, Denies weight gain and Denies weight loss ENT Denies dizziness Card Denies chest pain, Denies leg edema, Denies lightheadedness, Denies palpitations, Denies dyspnea and Denies dyspnea on exertion Resp Denies cough, Denies dyspnea and Denies dyspnea on exertion GI Denies hematochezia Musc Denies abnormal gait, Denies muscle weakness, Denies numbness, Denies radiating pain into limb and Denies tingling Neuro Denies abnormal gait, Denies dizziness, Denies frequent falls, Denies numbness, Denies tingling and Denies weakness Endo Denies fatigue and Denies palpitations Physical Exam Vital Signs: Last Vital Signs Pulse 65 11/10/24 12:19 BP 110/62 11/10/24 12:19 BMI result Body Mass Index 41.5 GENERAL APPEARANCE: In no acute distress. NECK: no carotid bruit, no JVD. SKIN: no suspicious lesions, warm and dry. HEART: no murmurs, regular rate and rhythm. LUNGS: Clear to auscultation. ABDOMEN: soft, nontender. EXTREMITIES: Mild edema. PERIPHERAL PULSES: equal. NEUROLOGIC: No gross deficits, AAO X 3 Assessment & Plan Assessment & Plan (1) Cardiac resynchronization therapy defibrillator (ANATOMIC PATHOLOGY MANAGER-D) in place: Comment: [employer] implanted 07/25/2023 Code(s): Z95.810 - Presence of automatic (implantable) cardiac defibrillator Category: Medical (2) Paroxysmal atrial fibrillation: Code(s): I48.0 - Paroxysmal atrial fibrillation Category: Medical (3) HFrEF (heart failure with reduced ejection fraction): Code(s): I50.20 - Unspecified systolic (congestive) heart failure Category: Medical (4) CKD (chronic kidney disease) stage 3, GFR 30-59 ml/min: Code(s): N18.30 - Chronic kidney disease, stage 3 unspecified Category: Medical Qualifiers: Chronic kidney disease stage 3 subtype: unspecified whether 3a or 3b Qualified Code(s): N18.30 - Chronic kidney disease, stage 3 unspecified Plan 69-year-old female who is here for follow-up. She has known history of cardiomyopathy which is more nonischemic than ischemic. She does have underlying coronary disease. Mostly presentations were in the setting of atrial arrhythmia with worsening ejection fractions. She was cardioverted a few times in the past and was on amiodarone and eventually underwent ablation at [facility]. She is now status post ANATOMIC PATHOLOGY MANAGER-D. She had at least moderate coronary disease previously but did not have any anginal symptoms and mostly presentations were clearly tachycardia related. She has been doing well. Blood pressure is well controlled. She is fairly euvolemic with the current Bumex dosing. Repeat echo has shown significant improvement in EF to 50-55%. She is doing well on the current regimen and we will continue this for now. She will see us back in few months. Thank you for allowing me to participate in the care of your patient. Please feel free to contact me if you have any questions. Coding Level of Care Code Est Pt Level 4 (74854) Diagnoses Cardiac resynchronization therapy defibrillator (ANATOMIC PATHOLOGY MANAGER-D) in place Z95.810 Paroxysmal atrial fibrillation I48.0 HFrEF (heart failure with reduced ejection fraction) I50.20 Stage 3 chronic kidney disease, unspecified whether stage 3a or 3b CKD N18.30 Chronic kidney disease stage 3 subtype: unspecified whether 3a or 3b
== END 2024-11-10 12:44 | disposition home or self-care (01) ==
LOC: HO.HCS 11:20
PROVIDERS: PCP Internal Medicine; Visit Provider Internal Medicine Cardiovascular Disease
DX: Z95.810 Presence of automatic (implantable) cardiac defibrillator (principal); I48.0 Paroxysmal atrial fibrillation; I50.20 Unspecified systolic (congestive) heart failure; N18.30 Chronic kidney disease, stage 3 unspecified
CPT/HCPCS: 99214

== ENCOUNTER → 2024-11-10 11:19 | Outpatient (BNVA) | payer MEDICARE, SELFPAY | PROVIDERS: PCP Internal Medicine; Visit Provider Internal Medicine Cardiovascular Disease | DX: I48.0 Paroxysmal atrial fibrillation (principal); R60.9 Edema, unspecified; I11.0 Hypertensive heart disease with heart failure; I50.20 Unspecified systolic (congestive) heart failure; N18.30 Chronic kidney disease, stage 3 unspecified; Z95.810 Presence of automatic (implantable) cardiac defibrillator | CPT/HCPCS: 99212 ==

== ENCOUNTER → 2024-11-16 23:59 | Outpatient (BNV) | payer MEDICARE, SELFPAY ==
--- NOTE | 2024-12-18 21:28 | A.OFFVIS_ITS ---
Intake Visit Reasons: Remote ICD check- [place] [employer] Allergies red dye (Red Dye) Allergy (Severe, Verified 12/07/24 13:59) HIVES,THROAT CLOSES FROM RED FOOD DYE metformin Adverse Reaction (Intermediate, Verified 12/07/24 13:59) Diarrhea tape Adverse Reaction (Intermediate, Uncoded 12/07/24 13:59) Redness of Skin PFSH Medical History Diabetic neuropathy Cardiac resynchronization therapy defibrillator (MANUFACTURERS AGENT-D) in place History of COVID-19 Paroxysmal atrial fibrillation CHF (congestive heart failure) Left bundle branch block History of uterine cancer Personal history of malignant neoplasm of other parts of uterus Tinea pedis History of cardioversion Cardiomyopathy Coronary arteriosclerosis Ischemic cardiomyopathy Colonoscopy refused Incomplete left bundle branch block (LBBB) Post-menopausal bleeding Type 2 diabetes mellitus with hyperglycemia, with long-term current use of insulin Vitamin D deficiency Mixed dyslipidemia Papanicolaou smear declined Mammogram declined Osteoarthritis, knee Diabetic neuropathy History of esophagitis Mild intermittent asthma History of basal cell carcinoma Osteonecrosis of right hip Hiatal hernia History of cholelithiasis Morbid obesity Essential hypertension Type 2 diabetes mellitus with hyperglycemia, without long-term current use of insulin Irritable bowel syndrome (IBS) Surgical History S/P CLARE-BSO (total abdominal hysterectomy and bilateral salpingo-oophorectomy) S/P cardiac catheterization History of hysterectomy H/O hernia repair Hx of section History of hip surgery Hx of colonoscopy History of cholecystectomy Family History Father Myocardial infarction Cardiovascular disease Mother Diabetes mellitus Essential hypertension Daughter Anxiety disorder Mental health disorder Son Mental health disorder Social History Household Members: Spouse and Children Housing: House Are you a primary home care and home health aides teacher to a significant other at home: No Do you presently have visiting nurse or other home services: No Alcohol intake: never Comment: pt refuses alarms Patient Tobacco Use Status: Never used Tobacco e-Cigarette/Vaping Use: Never Used Second Hand Smoke Exposure: No Advance Directives Date on File: 04/08/22 service: No Current occupational status: retired Current occupational exposures/hazards: No Cognitive needs: No Hearing needs: No Vision needs: Yes Office Procedures Cardiac Device Check Cardiac Device Check Details: MANUFACTURERS AGENT-D Battery life 11 years. No new alerts. [id number] Cardiac Device Interrogation, pacemaker or defibrillator Procedure code (CPT) selection complete Assessment & Plan Assessment & Plan (1) HFrEF (heart failure with reduced ejection fraction): Code(s): I50.20 - Unspecified systolic (congestive) heart failure Category: Medical Plan Coding Level of Care Code Procedure Only Diagnoses HFrEF (heart failure with reduced ejection fraction) I50.20 CPT Codes Cardiac Device Check - Cardiac Device 14: [id number] Cardiac Device Interrogation, pacemaker or defibrillator ([id number])
== END ==
PROVIDERS: PCP Internal Medicine; Visit Provider Internal Medicine Cardiovascular Disease
DX: I50.20 Unspecified systolic (congestive) heart failure (principal); Z95.810 Presence of automatic (implantable) cardiac defibrillator
CPT/HCPCS: 93295

== ENCOUNTER → 2024-11-29 23:59 | Outpatient (BNV) | payer MEDICARE, SELFPAY ==
--- NOTE | 2024-12-25 12:24 | A.OFFVIS_ITS ---
Intake Visit Reasons: Remote HF Monitoring ([employer]) Allergies red dye (Red Dye) Allergy (Severe, Verified 12/07/24 13:59) HIVES,THROAT CLOSES FROM RED FOOD DYE metformin Adverse Reaction (Intermediate, Verified 12/07/24 13:59) Diarrhea tape Adverse Reaction (Intermediate, Uncoded 12/07/24 13:59) Redness of Skin PFSH Medical History Diabetic neuropathy Cardiac resynchronization therapy defibrillator (CONVENTIONS RESERVATIONIST-D) in place History of COVID-19 Paroxysmal atrial fibrillation CHF (congestive heart failure) Left bundle branch block History of uterine cancer Personal history of malignant neoplasm of other parts of uterus Tinea pedis History of cardioversion Cardiomyopathy Coronary arteriosclerosis Ischemic cardiomyopathy Colonoscopy refused Incomplete left bundle branch block (LBBB) Post-menopausal bleeding Type 2 diabetes mellitus with hyperglycemia, with long-term current use of insulin Vitamin D deficiency Mixed dyslipidemia Papanicolaou smear declined Mammogram declined Osteoarthritis, knee Diabetic neuropathy History of esophagitis Mild intermittent asthma History of basal cell carcinoma Osteonecrosis of right hip Hiatal hernia History of cholelithiasis Morbid obesity Essential hypertension Type 2 diabetes mellitus with hyperglycemia, without long-term current use of insulin Irritable bowel syndrome (IBS) Surgical History S/P CLARE-BSO (total abdominal hysterectomy and bilateral salpingo-oophorectomy) S/P cardiac catheterization History of hysterectomy H/O hernia repair Hx of section History of hip surgery Hx of colonoscopy History of cholecystectomy Family History Father Myocardial infarction Cardiovascular disease Mother Diabetes mellitus Essential hypertension Daughter Anxiety disorder Mental health disorder Son Mental health disorder Social History Household Members: Spouse and Children Housing: House Are you a primary memory care program director to a significant other at home: No Do you presently have visiting nurse or other home services: No Alcohol intake: never Comment: pt refuses alarms Patient Tobacco Use Status: Never used Tobacco e-Cigarette/Vaping Use: Never Used Second Hand Smoke Exposure: No Advance Directives Date on File: 04/08/22 service: No Current occupational status: retired Current occupational exposures/hazards: No Cognitive needs: No Hearing needs: No Vision needs: Yes Office Procedures Cardiac Device Check Cardiac Device Check Details: HF monitoring Stable thoracic impedance. [id number] Cardiac Device Interrogation, pacemaker or defibrillator Procedure code (CPT) selection complete Assessment & Plan Assessment & Plan (1) HFrEF (heart failure with reduced ejection fraction): Code(s): I50.20 - Unspecified systolic (congestive) heart failure Category: Medical Plan Coding Level of Care Code Procedure Only Diagnoses HFrEF (heart failure with reduced ejection fraction) I50.20 CPT Codes Cardiac Device Check - Cardiac Device 14: [id number] Cardiac Device Interrogation, pacemaker or defibrillator ([id number])
== END ==
PROVIDERS: PCP Internal Medicine; Visit Provider Internal Medicine Cardiovascular Disease
DX: I50.20 Unspecified systolic (congestive) heart failure (principal); Z95.810 Presence of automatic (implantable) cardiac defibrillator
CPT/HCPCS: 93297

== ENCOUNTER 2024-12-07 13:58 | Outpatient (AMB) | payer MEDICARE, SELFPAY ==
[2024-12-07 14:04] LABS: Prothrombin Time Whole Bld POC 32.4 sec (11.1-13.5); ~PT, ~INR - Anti Coag Clinic 2.7 (0.9-1.1)
--- NOTE | 2024-12-07 14:04 | MHC.OFFVISCO ---
Intake Intake Visit Reasons: Anticoagulation Allergies red dye (Red Dye) Allergy (Severe, Verified 12/07/24 13:59) HIVES,THROAT CLOSES FROM RED FOOD DYE metformin Adverse Reaction (Intermediate, Verified 12/07/24 13:59) Diarrhea tape Adverse Reaction (Intermediate, Uncoded 12/07/24 13:59) Redness of Skin Medication List - Last Reconciled 12/07/24 by Jeanna Suarez, RN albuterol sulfate 90 mcg/actuation 180 mcg inhalation Q6H PRN atorvastatin 40 mg PO DAILY blood sugar diagnostic (FreeStyle Lite Strips) As directed check sugar twice a day before meals blood-glucose meter (FreeStyle Lite Meter kit) As directed bumetanide 2 mg twice daily alternating with 3 mg twice daily, as before carvedilol 6.25 mg PO BID cholecalciferol (vitamin D3) 25 mcg PO DAILY clotrimazole 1% (Athlete's Foot (clotrimazole)) 1 appl topical BID 4 weeks dulaglutide (Trulicity) 4.5 mg (0.5 mL) subcut QWEEK flash glucose scanning reader ([employer] Tabatha 2 [place]) As directed flash glucose sensor (FreeStyle Tabatha 2 Sensor kit) APPLY 1 SENSOR TOPICALLY AND LEAVE IN PLACE FOR 14 DAYS TO MONITOR BLOOD GLUCOSE DIRECTED BY THE DOCTOR. CHANGE SENSOR EVERY 14 DAYS glipizide ER 5 mg PO DAILY insulin lispro (Humalog Tempo Pen (U-100) Insulin) subcutaneously 3 times a day; 20-22 units before meals insulin NPH isoph U-100 human (Novolin N FlexPen) 26 units (0.26 mL) subcut BID 30 days insulin syringe-needle U-100 (BD Veo Insulin Syringe Ultra-Fine) As directed twice a day lancets (FreeStyle Lancets) As directed losartan 25 mg PO DAILY nystatin (Nystop) 1 appl topical BID PRN pen needle, diabetic (BD Ultra-Fine Short Pen Needle) USE 4 times a day Saccharomyces boulardii (Digest Probiotic (S.boulardii)) PO PRN [scale-accommodate weight 300 lbs As directed] spironolactone 25 mg PO DAILY 90 days warfarin See Protocol Warfarin 2.5mg tablet, 1 to 2 tablets daily as directed [wheelchair As directed] Nursing Note INR: 2.7 in therapeutic range of 2-3 Medications and supplements reviewed No changes in health, diet, medications, or supplements, Denies any signs and symptoms of bleeding or bruising or clotting. Bleeding, bruising, clotting discussed Nutritional guidance given Dose: 5mg X 6 days and 7.5mg X 1 day (Fri) F/U INR: 4 weeks Patient verbalizes understanding of instructions given Anti-Coag Initial Assessment Social Hx Patient Tobacco Use Status: Never used Tobacco alcohol intake: never Alcohol intake frequency: does not drink Cardiovascular Hx: HTN, Angina, CAD, CHF, Arrhythmias, Varicose Veins and Other Lung Disease HX: Asthma Endocrine Hx: Diabetes Musculoskeletal Hx: Arthritis Blood Disorder Hx: Hyperlipidemia GI Hx: Ulcers, Bleeding (GI, rectal) and Other Hx: Kidney Disease Neurological Hx: Serious Head Injury and Migraines/Headaches 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 ) Psych. Illness/Depression: No Questionnaires HAS-BLED Does the patient had uncontrolled Hypertension?: No Does the patient have renal disease?: Yes Does the patient have liver disease?: No Does the patient have a history of stroke?: No Has the patient had major bleeding or predisposition to bleeding?: Yes Does the patient have labile INRs?: No Is the patient over 65 years of age?: Yes Is the patient on medications that gives them a predisposition to bleeding?: Yes Does the patient use alcohol?: No HAS-BLED Score: 4 CHADSVASC Age: 66-74 Gender: Female Does the patient have a history of CHF?: Yes Does the patient have a history of Hypertension?: Yes Does the patient have a history of Stroke/TIA/Thromboembolism?: No Does the patient have a history of Vascular Disease (prior NE, PAD or aortic plaque)?: Yes Does the patient have a history of Diabetes?: Yes CHADS VACS Score: 6 Winston Prediction Score Rsk VTE Active Cancer: No Previous VTE, excluding superficial vein thrombosis: No Reduced mobility: Yes Already known Thrombophilic Condition: No With-in last month Trauma and/or Surgery: No Elderly 70 year or older: No Heart and/or Respiratory Failure: Yes Acute Myocardial infarction and/or Ischemic Stroke: No Acute Infection and/or Rheumatologic Disorder: No Obesity (BMI 30 or greater): Yes Ongoing Hormonal Treatment: No Score: 5 Winston Score less than 4; Low Risk of VTE Winston Score 4 or greater; High Risk of VTE Coding Level of Care Code Est Patient Level 1 Diagnoses Current use of anticoagulant therapy Z79.01 Assessment & Plan Assessment & Plan (1) Current use of anticoagulant therapy: Code(s): Z79.01 - meterman (current) use of anticoagulants Category: Medical
--- OUTSIDE RECORDS SUMMARY | 2024-12-07 17:11 | XMS_ITS | Clinical Summary ---
Author Organization [facility] Facility Address [address] [address] Care Team Providers Care Product Development Coordinator Name Role Phone Jo Menjivar MD Primary Care Provider [phone] Social History Tobacco Use Types Packs/Day Years [...] Health Medicare [facility] Medicare Care Teams Product Development Coordinator Relationship Specialty Start Date End Date Jo Menjivar MD [address] [place] [address] PCP - General Internal Medicine 04/30/22
== END 2024-12-07 14:20 | disposition home or self-care (01) ==
LOC: HO.ACS 13:58
PROVIDERS: PCP Internal Medicine; Visit Provider Internal Medicine Medical Oncology
DX: Z79.01 Long term (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 of anticoagulants (principal)

== ENCOUNTER → 2024-12-07 13:58 | Outpatient (BNVA) | payer MEDICARE, SELFPAY | PROVIDERS: PCP Internal Medicine; Visit Provider Internal Medicine Medical Oncology | DX: I48.0 Paroxysmal atrial fibrillation (principal); Z79.01 Long term (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 of anticoagulants; Z51.81 Encounter for therapeutic drug level monitoring | CPT/HCPCS: 85610; 99211 ==

== ENCOUNTER → 2025-01-03 23:59 | Outpatient (BNV) | payer MEDICARE, SELFPAY ==
--- NOTE | 2025-01-10 21:47 | A.OFFVIS_ITS ---
Intake Visit Reasons: REmote HF monitoring- [employer] Allergies red dye (Red Dye) Allergy (Severe, Verified 12/07/24 13:59) HIVES,THROAT CLOSES FROM RED FOOD DYE metformin Adverse Reaction (Intermediate, Verified 12/07/24 13:59) Diarrhea tape Adverse Reaction (Intermediate, Uncoded 12/07/24 13:59) Redness of Skin PFSH Medical History Diabetic neuropathy Cardiac resynchronization therapy defibrillator (HUNTING [employer] FISHING GUIDE-D) in place History of COVID-19 Paroxysmal atrial fibrillation CHF (congestive heart failure) Left bundle branch block History of uterine cancer Personal history of malignant neoplasm of other parts of uterus Tinea pedis History of cardioversion Cardiomyopathy Coronary arteriosclerosis Ischemic cardiomyopathy Colonoscopy refused Incomplete left bundle branch block (LBBB) Post-menopausal bleeding Type 2 diabetes mellitus with hyperglycemia, with long-term current use of insulin Vitamin D deficiency Mixed dyslipidemia Papanicolaou smear declined Mammogram declined Osteoarthritis, knee Diabetic neuropathy History of esophagitis Mild intermittent asthma History of basal cell carcinoma Osteonecrosis of right hip Hiatal hernia History of cholelithiasis Morbid obesity Essential hypertension Type 2 diabetes mellitus with hyperglycemia, without long-term current use of insulin Irritable bowel syndrome (IBS) Surgical History S/P CLARE-BSO (total abdominal hysterectomy and bilateral salpingo-oophorectomy) S/P cardiac catheterization History of hysterectomy H/O hernia repair Hx of section History of hip surgery Hx of colonoscopy History of cholecystectomy Family History Father Myocardial infarction Cardiovascular disease Mother Diabetes mellitus Essential hypertension Daughter Anxiety disorder Mental health disorder Son Mental health disorder Social History Household Members: Spouse and Children Housing: House Are you a primary grounds caretaker to a significant other at home: No Do you presently have visiting nurse or other home services: No Alcohol intake: never Comment: pt refuses alarms Patient Tobacco Use Status: Never used Tobacco e-Cigarette/Vaping Use: Never Used Second Hand Smoke Exposure: No Advance Directives Date on File: 04/08/22 service: No Current occupational status: retired Current occupational exposures/hazards: No Cognitive needs: No Hearing needs: No Vision needs: Yes Office Procedures Cardiac Device Check Cardiac Device Check Details: HF Stable thoracic impedance. [id number] Cardiac Device Interrogation, cardio physiologic monitor Procedure code (CPT) selection complete Assessment & Plan Assessment & Plan (1) Cardiac resynchronization therapy defibrillator (HUNTING AND FISHING GUIDE-D) in place: Comment: [employer] implanted 07/25/2023 Code(s): Z95.810 - Presence of automatic (implantable) cardiac defibrillator Category: Medical Plan: Coding Level of Care Code Procedure Only Diagnoses Cardiac resynchronization therapy defibrillator (HUNTING AND FISHING GUIDE-D) in place Z95.810 CPT Codes Cardiac Device Check - Cardiac Device 15: [id number] Cardiac Device Interrogation, cardio physiologic monitor ([id number])
== END ==
PROVIDERS: PCP Internal Medicine; Visit Provider Internal Medicine Cardiovascular Disease
DX: I50.9 Heart failure, unspecified (principal); Z95.810 Presence of automatic (implantable) cardiac defibrillator
CPT/HCPCS: 93297

== ENCOUNTER 2025-01-07 13:55 | Outpatient (AMB) | payer MEDICARE, SELFPAY ==
[2025-01-07 14:07] LABS: Prothrombin Time Whole Bld POC 29.2 sec (11.1-13.5); ~PT, ~INR - Anti Coag Clinic 2.4 (0.9-1.1)
--- NOTE | 2025-01-07 14:20 | MHC.OFFVISCO ---
Intake Intake Visit Reasons: Anticoagulation Allergies red dye (Red Dye) Allergy (Severe, Verified 12/07/24 13:59) HIVES,THROAT CLOSES FROM RED FOOD DYE metformin Adverse Reaction (Intermediate, Verified 12/07/24 13:59) Diarrhea tape Adverse Reaction (Intermediate, Uncoded 12/07/24 13:59) Redness of Skin Medication List - Last Reconciled 01/07/25 by Jeanna Suarez, RN albuterol sulfate 90 mcg/actuation 180 mcg inhalation Q6H PRN atorvastatin 40 mg PO DAILY blood sugar diagnostic (FreeStyle Lite Strips) As directed check sugar twice a day before meals blood-glucose meter (FreeStyle Lite Meter kit) As directed bumetanide 2 mg twice daily alternating with 3 mg twice daily, as before carvedilol 6.25 mg PO BID cholecalciferol (vitamin D3) 25 mcg PO DAILY clotrimazole 1% (Athlete's Foot (clotrimazole)) 1 appl topical BID 4 weeks dulaglutide (Trulicity) 4.5 mg (0.5 mL) subcut QWEEK flash glucose scanning reader ([employer] Tabatha 2 [place]) As directed flash glucose sensor (FreeStyle Tabatha 2 Sensor kit) APPLY 1 SENSOR TOPICALLY AND LEAVE IN PLACE FOR 14 DAYS TO MONITOR BLOOD GLUCOSE DIRECTED BY THE DOCTOR. CHANGE SENSOR EVERY 14 DAYS glipizide ER 5 mg PO DAILY insulin lispro (Humalog Tempo Pen (U-100) Insulin) subcutaneously 3 times a day; 20-22 units before meals insulin NPH isoph U-100 human (Novolin N FlexPen) 26 units (0.26 mL) subcut BID 30 days insulin syringe-needle U-100 (BD Veo Insulin Syringe Ultra-Fine) As directed twice a day lancets (FreeStyle Lancets) As directed losartan 25 mg PO DAILY nystatin (Nystop) 1 appl topical BID PRN pen needle, diabetic (BD Ultra-Fine Short Pen Needle) USE 4 times a day Saccharomyces boulardii (Digest Probiotic (S.boulardii)) PO PRN [scale-accommodate weight 300 lbs As directed] spironolactone 25 mg PO DAILY 90 days warfarin See Protocol Warfarin 2.5mg tablet, 1 to 2 tablets daily as directed [wheelchair As directed] Nursing Note INR: 2.4 in therapeutic range of 2-3 Medications and supplements reviewed No changes in health, diet, medications, or supplements, Denies any signs and symptoms of bleeding or bruising or clotting. Bleeding, bruising, clotting discussed Nutritional guidance given Dose: 5mg X 6 days and 7.5mg X 1 day (Fri) F/U INR: 4 weeks Patient verbalizes understanding of instructions given Anti-Coag Initial Assessment Social Hx Patient Tobacco Use Status: Never used Tobacco alcohol intake: never Alcohol intake frequency: does not drink Cardiovascular Hx: HTN, Angina, CAD, CHF, Arrhythmias, Varicose Veins and Other Lung Disease HX: Asthma Endocrine Hx: Diabetes Musculoskeletal Hx: Arthritis Blood Disorder Hx: Hyperlipidemia GI Hx: Ulcers, Bleeding (GI, rectal) and Other Hx: Kidney Disease Neurological Hx: Serious Head Injury and Migraines/Headaches 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 ) Psych. Illness/Depression: No Coding Level of Care Code Est Patient Level 1 Diagnoses Current use of anticoagulant therapy Z79.01 Assessment & Plan Assessment & Plan (1) Current use of anticoagulant therapy: Code(s): Z79.01 - penitentiary (current) use of anticoagulants Category: Medical
--- OUTSIDE RECORDS SUMMARY | 2025-01-07 15:57 | XMS_ITS | Clinical Summary ---
Author Organization [facility] Facility Address [address] [address] Care Team Providers Care Supervisor Jewelry Department Name Role Phone Jo Menjivar MD Primary Care Provider [phone]- [phone] Social History Tobacco Use Types Packs/Day Years [...] Health Medicare [facility] Medicare Care Teams Supervisor Jewelry Department Relationship Specialty Start Date End Date Jo Menjivar MD 1960 [place] [address] PCP - General Internal Medicine 04/30/22
== END 2025-01-07 14:22 | disposition home or self-care (01) ==
LOC: HO.ACS 13:55
PROVIDERS: PCP Internal Medicine; Visit Provider Internal Medicine Medical Oncology
DX: Z79.01 Long term (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 of anticoagulants (principal)

== ENCOUNTER → 2025-01-07 13:55 | Outpatient (BNVA) | payer MEDICARE, SELFPAY | PROVIDERS: PCP Internal Medicine; Visit Provider Internal Medicine Medical Oncology | DX: I48.0 Paroxysmal atrial fibrillation (principal); Z79.01 Long term (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 of anticoagulants; Z51.81 Encounter for therapeutic drug level monitoring | CPT/HCPCS: 85610; 99211 ==

== ENCOUNTER 2025-01-21 10:11 | Outpatient (REF) | payer MEDICARE, SELFPAY ==
--- OUTSIDE RECORDS SUMMARY | 2025-01-21 12:00 | XMS_ITS | Clinical Summary ---
Author Organization [facility] Facility Address [address] [address] Care Team Providers Care Manager Salt Name Role Phone Jo Menjivar MD Primary Care Provider [phone]- [phone] Social History Tobacco Use Types Packs/Day Years [...] Health Medicare [facility] Medicare Care Teams Manager Salt Relationship Specialty Start Date End Date Jo Menjivar MD 1960 [place] [address] PCP - General Internal Medicine 04/30/22
[2025-01-21 13:16] LABS: MANUAL DIFF FLAG NO
[2025-01-21 13:38] LABS: Hematocrit 41.8 % (37.0-47.0); Hemoglobin 13.4 g/dl (12.0-16.0); Imm Gran Abs Auto 0.02 X10*3/uL (0.00-0.03); Imm Gran Pct Auto 0.2 % (0.0-0.4); Lymphocytes Absolute Auto 3.0 X10*3/uL (1.2-4.9); Mean Corpuscular HGB Conc 32.1 g/dl (31.0-35.0); Mean Corpuscular Hemoglobin 28.9 pg (27.0-33.0); Mean Corpuscular Volume 90.3 fL (80.0-98.0); NRBC Abs Auto 0.000 X10*3/uL (0.0-0.012); NRBC Pct Auto 0.0 /100WBC (0.0-0.2); Platelet Count 289 X10*3/uL (160-400); Red Blood Count 4.63 X10*6/uL (4.20-5.50); White Blood Count 9.7 X10*3/uL (4.8-10.8)
[2025-01-21 13:52] LABS: Alanine Aminotransferase 12 U/L (0-31); Anion Gap 13 (12-20); Aspartate Amino Transferase 21 U/L (5-31); Blood Urea Nitrogen 49 mg/dL (9-16); Calcium 8.9 mg/dL (8.4-10.2); Carbon Dioxide 28 mmol/L (22-29); Chloride 99 mmol/L (96-108); Cholesterol 131 mg/dL (<200); Estimated Glomerular Filt Rate 37; HDL Cholesterol 35 mg/dL (>40); Potassium 3.9 mmol/L (3.3-5.1); Sodium 136 mmol/L (135-145); Triglycerides 175 mg/dL (<150)
== END 2025-01-21 10:12 | disposition home or self-care (01) ==
LOC: HO.HMGCLDS 10:11
PROVIDERS: PCP Internal Medicine; Visit Provider Internal Medicine
DX: E11.42 Type 2 diabetes mellitus with diabetic polyneuropathy (principal); E11.22 Type 2 diabetes mellitus with diabetic chronic kidney disease; I48.0 Paroxysmal atrial fibrillation; N18.30 Chronic kidney disease, stage 3 unspecified; E55.9 Vitamin D deficiency, unspecified; E78.2 Mixed hyperlipidemia; E11.65 Type 2 diabetes mellitus with hyperglycemia; Z79.4 Long term (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 of insulin; Z79.01 Long term (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 of anticoagulants
CPT/HCPCS: 36415; 80048; 80061; 82306; 84450; 84460; 85025

== ENCOUNTER 2025-01-24 14:29 | Outpatient (AMB) | payer MEDICARE, SELFPAY ==
[2025-01-24 14:41] VITALS: BP 110/70; PULSE 70; RESP 16; TEMP 36.3; O2SAT 94; BMI 41.9
--- NOTE | 2025-01-24 14:41 | A.OFFPC_ITS ---
Vital Signs 01/24/25 14:41 Height 5 ft 4 in Weight 244 lb BMI 41.9 BP 110/70 Blood Pressure Location Lt brachial Position Sitting Respiration 16 Pulse 70 Pulse Source Pulse Oximeter Temp 97.3 F Temp Source Oral Pulse Oximetry (%) 94 Oxygen Delivery Method Room Air Intake Visit Reasons: PE Intake Note: Pt is here today for her PE Silver Plater Required: No Allergies red dye (Red Dye) Allergy (Severe, Verified 01/24/25 14:50) HIVES,THROAT CLOSES FROM RED FOOD DYE metformin Adverse Reaction (Intermediate, Verified 01/24/25 14:50) Diarrhea tape Adverse Reaction (Intermediate, Uncoded 01/24/25 14:50) Redness of Skin Medication List - Last Reconciled 01/24/25 by Lily Menjivar MD albuterol sulfate 90 mcg/actuation 180 mcg inhalation Q6H PRN atorvastatin 40 mg PO DAILY blood sugar diagnostic (FreeStyle Lite Strips) As directed check sugar twice a day before meals blood-glucose meter (FreeStyle Lite Meter kit) As directed bumetanide 2 mg twice daily alternating with 3 mg twice daily, as before carvedilol 6.25 mg PO BID cholecalciferol (vitamin D3) 25 mcg PO DAILY clotrimazole 1% (Athlete's Foot (clotrimazole)) 1 appl topical BID 4 weeks flash glucose scanning reader (Solar NationStyle Tabatha 2 [place]) As directed flash glucose sensor (FreeStyle Tabatha 2 Sensor kit) APPLY 1 SENSOR TOPICALLY AND LEAVE IN PLACE FOR 14 DAYS TO MONITOR BLOOD GLUCOSE DIRECTED BY THE DOCTOR. CHANGE SENSOR EVERY 14 DAYS insulin lispro (Humalog Tempo Pen (U-100) Insulin) subcutaneously 3 times a day; 20-22 units before meals insulin NPH isoph U-100 human (Novolin N FlexPen) 26 units (0.26 mL) subcut BID 30 days insulin syringe-needle U-100 (BD Veo Insulin Syringe Ultra-Fine) As directed twice a day lancets (FreeStyle Lancets) As directed losartan 25 mg PO DAILY nystatin (Nystop) 1 appl topical BID PRN pen needle, diabetic (BD Ultra-Fine Short Pen Needle) USE 4 times a day Saccharomyces boulardii (Digest Probiotic (S.boulardii)) PO PRN [scale-accommodate weight 300 lbs As directed] spironolactone 25 mg PO DAILY 90 days warfarin See Protocol Warfarin 2.5mg tablet, 1 to 2 tablets daily as directed [wheelchair As directed] Tobacco use date assessed: 01/24/25 Fall risk assessment: No Falls in past year Last assessed Fall Risk: 01/24/25 Dental Screening Dental Screen Date: 01/24/25 Did you have a dental visit in the last 12 months?: No Did you have a dental problem in the last 6 months where you did not have access to dental care?: No Was dental information given to patient?: Patient declined HPI PE HPI Details 69-year-old lady with past medical histo ry significant for type 2 diabetes mellitus with long-term insulin use, has peripheral artery disease, paroxysmal atrial fibrillation with coronary artery sclerosis, long-term anticoagulant use, chronic kidney disease stage 3 mixed dyslipidemia, osteoarthritis, mild intermittent asthma, endometrial cancer status post tablets 09/2021, here today for her physical exam She has diabetes mellitus, poorly controlled, but has not been taking Trulicity because she cannot afford it,. She states that she already submitted 2 applications to [employer] but have not heard from them yet . She is currently on Novolin N FlexPen 20 60 units twice a day and Humalog administered before meals on a sliding scale coverage, and has been following a low-carbohydrate diet of meat and vegetables, reporting that her blood glucose levels have been in the 100s. She missed her endocrinology clinic follow-up appointment last November Latest fasting labs showed LDL cholesterol within normal limits but mildly elevated triglycerides and low HDL cholesterol, currently takes atorvastatin Her kidney function is stable and she is followed by Nephrology Clinic. She is also on chronic anticoagulation with warfarin, followed by cardiology, and the Coumadin Clinic; her dose is two 2.5 mg tablets daily and three tablets on Wednesdays, a regimen chosen to avoid red dye. She has a pacemaker and her c ardiologist, Dr. Storey, reported her recent device check was fine. For approximately one week, the patient has had a lesion on her mandel where the skin peeled off, became wet, and healing slowly.. She notes fluid in her legs and takes bumetanide, which she can increase from 1-1.5 tablets to 2 tablets for swelling, as per her hydrologic engineer'ss instructions. She reports foot pain and had a prescription for gabapentin 100 mg, but only took it occasionally when the pain is severe because it makes her feel tired Recent lab work revealed a very low vitamin D level. She denies any known allergies to antibiotics but has a known allergy to red dye. She no longer gets cervical cancer screenings, as she had a hysterectomy in 2021. She has not had a recent mammogram and declines another colonoscopy, but is agreeable to Cologuard testing. She denies any family history of colon cancer. FORMERLY [facility], [facility] Medical History Diabetic neuropathy Cardiac resynchronization therapy defibrillator (TILE AND MARBLE SETTER-D) in place History of COVID-19 Paroxysmal atrial fibrillation CHF (congestive heart failure) Left bundle branch block History of uterine cancer Personal history of malignant neoplasm of other parts of uterus Tinea pedis History of cardioversion Cardiomyopathy Coronary arteriosclerosis Ischemic cardiomyopathy Colonoscopy refused Incomplete left bundle branch block (LBBB) Post-menopausal bleeding Type 2 diabetes mellitus with hyperglycemia, with long-term current use of insulin Vitamin D deficiency Mixed dyslipidemia Papanicolaou smear declined Mammogram declined Osteoarthritis, knee Diabetic neuropathy History of esophagitis Mild intermittent asthma History of basal cell carcinoma Osteonecrosis of right hip Hiatal hernia History of cholelithiasis Morbid obesity Essential hypertension Type 2 diabetes mellitus with hyperglycemia, without long-term current use of insulin Irritable bowel syndrome (IBS) Surgical History S/P CLARE-BSO (total abdominal hysterectomy and bilateral salpingo-oophorectomy) S/P cardiac catheterization History of hysterectomy H/O hernia repair Hx of section History of hip surgery Hx of colonoscopy History of cholecystectomy Family History Father Myocardial infarction Cardiovascular disease Mother Diabetes mellitus Essential hypertension Daughter Anxiety disorder Mental health disorder Son Mental health disorder Social History Household Members: Spouse and Children Housing: House Are you a primary healthcare economics manager to a significant other at home: No Do you presently have visiting nurse or other home services: No Alcohol intake: never Comment: pt refuses alarms Patient Tobacco Use Status: Never used Tobacco e-Cigarette/Vaping Use: Never Used Second Hand Smoke Exposure: No Advance Directives Date on File: 04/08/22 service: No Current occupational status: retired Current occupational exposures/hazards: No Cognitive needs: No Hearing needs: No Vision needs: Yes Questionnaire PHQ-9 Over the last 2 weeks, how often have you been bothered by any of the following problems? 1. Little interest or pleasure in doing things: not at all 2. Feeling down, depressed, or hopeless: not at all 3. Trouble falling or staying asleep, or sleeping too much: more than half the days 4. Feeling tired or having little energy: nearly every day 5. Poor appetite or overeating: not at all 6. Feeling bad about yourself - or that you are a failure or have let yourself or your family down: not at all 7. Trouble concentrating on things, such as reading the newspaper or watching television: not at all 8. Moving or speaking so slowly that other people could have noticed. Or the opposite - being so fidgety or restless that you have been moving around a lot more than usual: not at all 9. Thoughts that you would be better off or of hurting yourself in some way: not at all Total score: 5 Depression Screening Interpretation: Negative Depression Screening Done: Yes Source: Developed by Drs. Uriel Falk, Rosie Felipe, Hasmukh Kumar and colleagues, with an educational sandra from [employer]. Thrive Questionnaire Date Thrive assessed: 01/24/25 I am a: Patient What is your living situation today?: I have a steady place to live Within the past 12 months, did the food you bought not last and you didn't have the money to get more?: I choose not to answer this question Within the past 12 months, did you worry whether your food would run out before you got money to buy more?: I choose not to answer this question Do you have trouble paying for medicines?: Yes Do you have trouble getting transportation to medical appointments?: No Do you have trouble paying your heating and electricity bill?: No Do you have trouble taking care of your child, family member or friend?: No Do you have trouble with day-to-day activities such as bathing, preparing meals, shopping, managing finances, etc.?: No Are you currently unemployed and looking for a job?: No Are you interested in more education?: No Please select the resources that you would like help with: None Currently or been in a relationship where the following occur: No concerns reported THRIVE Score: 0 AUDIT C Alcohol Use Questionnaire (AUDIT-C) 1. How often do you have a drink containing alcohol?: Never Total Score: 0 HUMAIRA-7 AMB Questionnaire HUMAIRA-7 Date HUMAIRA - 7 assessed: 07/16/24 Feeling nervous, anxious, or on edge: 0 = Not at all Not being able to stop or control worryin = Not at all Worrying too much about different things: 0 = Not at all Trouble relaxin = Not at all Being so restless that it is hard to sit still: 0 = Not at all Becoming easily annoyed or irritable: 0 = Not at all Feeling afraid as if something awful might happen: 0 = Not at all Total HUMAIRA-7 score (0-4 normal; 5-9 mild; 10-14 moderate; 15-21 severe): 0 Source: Developed by Drs. Uriel Falk, Rosie Felipe, Hasmukh Kumar and colleagues, with an educational sandra from [employer]. Review of Systems Const Denies fever(s), Denies frequent falls and Denies weakness Eyes Reports requires corrective lenses ENT Denies dizziness Card Denies chest pain, Denies lightheadedness, Denies palpitations, Denies dyspnea and Denies dyspnea on exertion Resp Denies cough, Denies dyspnea and Denies dyspnea on exertion GI Denies hematochezia Reports no additional complaints Musc Denies abnormal gait, Denies muscle weakness, Denies numbness, Denies radiating pain into limb and Denies tingling Skin/Breast Reports as per HPI Neuro Denies abnormal gait, Denies dizziness, Denies frequent falls, Denies numbness, Denies tingling and Denies weakness Psych Reports no additional complaints Endo Denies palpitations Jace/Lymph Reports no additional complaints Aller/Immun Reports no additional complaints Physical exam (Primary Care) Vital Signs: Last Vital Signs Temp 97.3 F 01/24/25 14:41 Pulse 70 01/24/25 14:41 Resp 16 01/24/25 14:41 BP 110/70 01/24/25 14:41 Pulse Ox 94 01/24/25 14:41 Oxygen Delivery Method Room Air 01/24/25 14:41 BMI result Body Mass Index 41.9 Tobacco/Smoking Status: Tobacco use Status Tobacco use date assessed 01/24/25 01/24/25 14:46 Patient Tobacco Use Status Never used Tobacco 01/24/25 14:41 e-Cigarette/Vaping Use Never Used 01/24/25 14:41 PHQ-9: PHQ-9 Score PHQ-9: Total score 7 01/30/25 20:22 Depression Screening Interpretation: Negative Thrive Assessment: Date of Thrive Assessment Date Thrive assessed 01/21/24 01/24/25 14:41 Currently or been in a relationship where the following occur: No concerns reported Const General: no acute distress and awake Nutritional Appearance: obese Orientation/consciousness: patient oriented x3 HENMT Ears: external ears normal General nose exam: Normal external nose present and No nasal discharge present Mouth: oropharynx normal and moist mucous membranes Eyes General: appearance normal, both eyes and all related structures Neck Neck: Yes full ROM, Yes no lymphadenopathy and Yes supple Chest Other: Patient declined breast exam Resp Effort & Inspection: normal respiratory effort and able to speak in complete sentences Auscultation: clear to auscultation bilaterally Cardio Rate: regular rate Rhythm: regular rhythm Heart sounds: S1 normal heart sound present and S2 normal heart sound present GI Inspection: Yes Abdominal panniculus present and Yes obesity Palpation (GI): Soft to palpation, nontender and no guarding Auscultation: normal bowel sounds Other: Patient declined pelvic exam General: Yes no CVA tenderness Back/Spine/Pelvis Back: no CVA tenderness and No back tenderness Skin Other: Moist abrasion on left mandel with clear drainage Neuro General: patient oriented x3, gait normal, tone normal, moves all extremities, Normal light touch and pain sensation and no focal motor deficits Cognition (Neuro): normal cognition Gait exam (Neuro): Normal gait present Motor exam (neuro): 5/5 motor strength present throughout Extrem Other: Trace ankle swelling bilateral General: Yes full ROM, Yes no joint enlargement, Yes no calf tenderness and Yes normal gait Psych Appearance: grossly normal and well kempt Mental Status: mental status grossly normal Speech and movement: Normal speech and movement present Affect: normal affect Results Reviewed Results Reviewed: Name: July Dorantes Age/Sex: 69/F : 1955 Unit#: [id number] Attend Dr: Lily Menjivar MD Re01/21/25 Status: DEP REF Location: [facility] Disch: SPEC : [id number] XIMENA: 01/21/25 STATUS: COMP REQ : [id number] RECD: 01/21/[address]: Lily Menjivar MD COMP: 01/21/25 ENTERED: 01/21/[address] [facility] [address]: ORDERED: CBC Auto Diff Test Result Flag Reference WBC 9.7 4.8-10.8 X10*3/uL RBC 4.63 4.20-5.50 X10*6/uL HGB 13.4 12.0-16.0 g/dl HCT 41.8 37.0-47.0 % MCV 90.3 80.0-98.0 fL MCH 28.9 27.0-33.0 pg MCHC 32.1 31.0-35.0 g/dl RDW 13.6 11.0-16.0 % PLT 289 160-400 X10*3/uL MPV 9.9 9.4-12.3 fL Neut Pct Auto 58.9 45-73 % ImGran Pct Auto 0.2 0.0-0.4 % Lymp Pct Auto 31.0 20-40 % Berrien Pct Auto 5.9 2-11 % Eos Pct Auto 3.1 0-4 % Baso Pct Auto 0.9 0-2 % NRBC Pct Auto 0.0 0.0-0.2 /100WBC ANC Neut Abs # 5.7 2.0-8.3 x10*3/uL ImGran Abs Auto 0.02 0.00-0.03 X10*3/uL Lymph Abs Auto 3.0 1.2-4.9 X10*3/uL Berrien Abs Auto 0.6 0.1-1.2 X10*3/uL Eos Abs Auto 0.3 0.0-0.4 X10*3/uL Baso Abs Auto 0.1 0.0-0.2 X10*3/uL NRBC Abs Auto 0.000 0.0-0.012 X10*3/uL Name: July Dorantes Age/Sex: 69/F : 1955 Unit#: [id number] Attend Dr: Lily Menjivar MD Re01/21/25 Status: DEP REF Location: [facility] Disch: SPEC : [id number] XIMENA: 01/21/25 STATUS: COMP REQ : [id number] RECD: 01/21/[address]: Lily Menjivar MD COMP: 01/21/25 ENTERED: 01/21/[address] [facility] [address]: ORDERED: Met Prof Fast, AST, ALT, Lipid Panel, Vitamin D 25-OH Test Result Flag Reference Sodium 136 135-145 mmol/L Potassium 3.9 3.3-5.1 mmol/L CL 99 96-108 mmol/L CO2 28 22-29 mmol/L Gap 13 12-20 BUN 49 H 9-16 mg/dL Creat 1.42 H 0.5-1.4 mg/dL eGFR 37 Chronic Kidney Disease: Estimated GFR < 60 mL/min/1.73m2 Severe Kidney Disease: Estimated GFR < 15 mL/min/1.73m2 FBS 132 H 60-99 mg/dL A fasting glucose of 126 mg/dl or greater on more than one occasion is considered diagnostic of diabetes. CA 8.9 8.4-10.2 mg/dL AST (GOT) 21 5-31 U/L ALT (GPT) 12 0-31 U/L Triglyceride 175 H <150 mg/dL Desirable Triglyceride: less than 150 mg/dL Borderline High Triglyceride 150-199 mg/dL High Triglyceride: 200-499 mg/dL Very High Triglyceride: greater than or equal to 5OO mg/dL Cholesterol 131 <200 mg/dL Desirable Cholesterol: less than 200 mg/dL Borderline High Cholesterol: 200-239 mg/dL High Cholesterol: greater than 239 mg/dL LDL Calculated 61 <100 mg/dL Desirable LDL: less than 100 mg/dL Near Optimal/Above Optimal LDL: 110-129 mg/dL Borderline High LDL: 130-159 mg/dL High LDL: 160-189 mg/dL Very High LDL: greater than or equal to 190 mg/dL HDL 35 L >40 mg/dL Desirable HDL: greater than 40 mg/dL Note: This HDL assay may give artificially low results in patients with liver disease. Vitamin D 25-OH 17.3 L >30 ng/mL Health Based Reference Values* < 20 ng/mL Deficient 20-30 ng/mL Insufficient > 30 ng/mL Sufficient Coding Level of Care Code Est Pt Prev Care >65y(22027) Diagnoses Annual visit for general adult medical examination with abnormal findings Z00.01 Vitamin D deficiency E55.9 Type 2 diabetes mellitus with hyperglycemia, with long-term current use of insulin E11.65; Z79.4 Other diabetic neurological complication associated with type 2 diabetes mellitus E11.49 Diabetes mellitus complication detail: with other neurological complication Diabetes mellitus type: type 2 Cellulitis of left lower extremity L03.116 Essential hypertension I10 Paroxysmal atrial fibrillation I48.0 PAD (peripheral artery disease) I73.9 Mixed dyslipidemia E78.2 Stage 3 chronic kidney disease, unspecified whether stage 3a or 3b CKD N18.30 Chronic kidney disease stage 3 subtype: unspecified whether 3a or 3b Mild intermittent asthma J45.20 Assessment & Plan Assessment & Plan (1) Annual visit for general adult medical examination with abnormal findings: Code(s): Z00.01 - Encounter for general adult medical examination with abnormal findings Plan: Latest fasting lab results reviewed with patient. Recommended dental visit every 6 months and regular eye exams, every year. Referral to [facility] ordered for diabetes retinopathy screening. Take adequate calcium in diet and vitamin-D 3 at 2000 IU per cap once a day, in addition to weight-bearing exercises to help maintain good muscle tone and weight control. Instructed to do self-breast exam, and recommended to get yearly mammogram, but patient declined. Declined getting flu vaccine and COVID booster, already received her Prevnar 20 in 2021.. Does not want to get a colonoscopy procedure or do Cologuard testing (2) Vitamin D deficiency: Code(s): E55.9 - Vitamin D deficiency, unspecified Category: Medical Plan: Prescription sent for cholecalciferol 48598 units per capsule take once a week for the next 3 months. Once finished taking prescription, to continue taking [id number] vitamin-D 3 at 2000 units daily (3) Type 2 diabetes mellitus with hyperglycemia, with long-term current use of insulin: Code(s): E11.65 - Type 2 diabetes mellitus with hyperglycemia; Z79.4 - skilled nursing (current) use of insulin Category: Medical Plan: blood sugar control is suboptimal . Plan is to continue her current insulin regimen, refer her to a drying frame operator for a diabetic foot exam and management of her foot pain, and refer her to [facility] for an annual eye exam. Schedule nothing follow-up appointment with [facility] endocrine clinic. Referred to [facility] for her diabetes retinopathy screening and podiatry referral also sent for her diabetes foot exam (4) Diabetic neuropathy: Code(s): E11.40 - Type 2 diabetes mellitus with diabetic neuropathy, unspecified Category: Medical Qualifiers: Diabetes mellitus complication detail: with other neurological complication Diabetes mellitus type: type 2 Qualified Code(s): E11.49 - Type 2 diabetes mellitus with other diabetic neurological complication Plan: blood sugar control is suboptimal . Plan is to continue her current insulin regimen, refer her to a drying frame operator for a diabetic foot exam and management of her foot pain, and refer her to [facility] for an annual eye exam. Schedule nothing follow-up appointment with [facility] endocrine (5) Cellulitis of left lower extremity: Code(s): L03.116 - Cellulitis of left lower limb Plan: Wound cleaned and nonstick dressing applied, prescription sent for cephalexin 500 mg to take 1 capsule twice a day for 10 days. Return to clinic if after 10 days no complete healing noted (6) Essential hypertension: Code(s): I10 - Essential (primary) hypertension Category: Medical Plan: Blood pressure at goal of less than 130/80. Continue with current medication. Reinforced importance of following a low sodium diet, getting regular exercise, and lowering stress levels. (7) Paroxysmal atrial fibrillation: Code(s): I48.0 - Paroxysmal atrial fibrillation Category: Medical Plan: Followed by cardiology clinic currently on warfarin, followed at the [facility]madin Clinic (8) PAD (peripheral artery disease): Code(s): I73.9 - Peripheral vascular disease, unspecified Category: Medical Plan: elevate her legs and temporarily increase her bumetanide dose to two tablets to reduce swelling, then return to her usual dose. (9) Mixed dyslipidemia: Code(s): E78.2 - Mixed hyperlipidemia Category: Medical Plan: Reviewed recent fasting lipid profile with patient with elevated triglycerides and normal LDL cholesterol . Continue atorvastatin 40 mg daily , in addition to adherence to low-cholesterol diet and regular exercise, at least 30 minutes 3 to 4 times a week. Advised patient to make healthy food choices, eat more fruits, vegetables, whole grains, wild caught fish and low-fat dairy. Limit amount of meat and fried or fatty food products, as well as processed foods and fast foods. (10) CKD (chronic kidney disease) stage 3, GFR 30-59 ml/min: Code(s): N18.30 - Chronic kidney disease, stage 3 unspecified Category: Medical Qualifiers: Chronic kidney disease stage 3 subtype: unspecified whether 3a or 3b Qualified Code(s): N18.30 - Chronic kidney disease, stage 3 unspecified Plan: Currently followed by Nephrology Clinic continue the witnessed of NSAIDs (11) Mild intermittent asthma: Code(s): J45.20 - Mild intermittent asthma, uncomplicated Category: Medical Plan: Asthma symptoms stable and controlled, rarely needing to use her albuterol inhaler. Offered flu vaccine but patient declined. 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
--- OUTSIDE RECORDS SUMMARY | 2025-01-24 16:49 | XMS_ITS | Clinical Summary ---
Author Organization [facility] Facility Address [address] [address] Care Team Providers Care Cardiopulmonary Specialist Name Role Phone Jo Menjivar MD Primary Care Provider [phone] Social History Tobacco Use Types Packs/Day Years [...] Health Medicare [facility] Medicare Care Teams Cardiopulmonary Specialist Relationship Specialty Start Date End Date Jo Menjivar MD [address] [place] [address] PCP - General Internal Medicine 04/30/22
== END 2025-01-24 15:22 | disposition home or self-care (01) ==
LOC: HO.HMCC 14:29
PROVIDERS: PCP Internal Medicine; Visit Provider Internal Medicine
DX: Z00.01 Encounter for general adult medical examination with abnormal findings (principal); I12.9 Hypertensive chronic kidney disease with stage 1 through stage 4 chronic kidney disease, or unspecified chronic kidney disease; E11.65 Type 2 diabetes mellitus with hyperglycemia; Z79.4 Long term (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 of insulin; E11.49 Type 2 diabetes mellitus with other diabetic neurological complication; I48.0 Paroxysmal atrial fibrillation; N18.30 Chronic kidney disease, stage 3 unspecified; E55.9 Vitamin D deficiency, unspecified; L03.116 Cellulitis of left lower limb; I73.9 Peripheral vascular disease, unspecified; E78.2 Mixed hyperlipidemia; J45.20 Mild intermittent asthma, uncomplicated

== ENCOUNTER → 2025-01-24 14:29 | Outpatient (BNVA) | payer MEDICARE, SELFPAY | PROVIDERS: PCP Internal Medicine; Visit Provider Internal Medicine | DX: Z00.01 Encounter for general adult medical examination with abnormal findings (principal); E55.9 Vitamin D deficiency, unspecified; E11.65 Type 2 diabetes mellitus with hyperglycemia; E11.49 Type 2 diabetes mellitus with other diabetic neurological complication; E11.22 Type 2 diabetes mellitus with diabetic chronic kidney disease; I12.9 Hypertensive chronic kidney disease with stage 1 through stage 4 chronic kidney disease, or unspecified chronic kidney disease; N18.30 Chronic kidney disease, stage 3 unspecified; L03.116 Cellulitis of left lower limb; I48.0 Paroxysmal atrial fibrillation; I73.9 Peripheral vascular disease, unspecified; E78.2 Mixed hyperlipidemia; J45.20 Mild intermittent asthma, uncomplicated | CPT/HCPCS: 96127; 99397 ==

== ENCOUNTER 2025-02-21 13:54 | Outpatient (AMB) | payer MEDICARE, SELFPAY ==
[2025-02-21 14:03] LABS: Prothrombin Time Whole Bld POC 21.9 sec (11.1-13.5); ~PT, ~INR - Anti Coag Clinic 1.8 (0.9-1.1)
--- NOTE | 2025-02-21 14:11 | MHC.OFFVISCO ---
Intake Intake Visit Reasons: Anticoagulation Allergies red dye (Red Dye) Allergy (Severe, Verified 02/21/25 13:58) HIVES,THROAT CLOSES FROM RED FOOD DYE metformin Adverse Reaction (Intermediate, Verified 02/21/25 13:58) Diarrhea tape Adverse Reaction (Intermediate, Uncoded 02/21/25 13:58) Redness of Skin Medication List - Last Reconciled 02/21/25 by Jeanna Suarez, RN albuterol sulfate 90 mcg/actuation 180 mcg inhalation Q6H PRN atorvastatin 40 mg PO DAILY blood sugar diagnostic (FreeStyle Lite Strips) As directed check sugar twice a day before meals blood-glucose meter (FreeStyle Lite Meter kit) As directed bumetanide 2 mg twice daily alternating with 3 mg twice daily, as before carvedilol 6.25 mg PO BID cephalexin 500 mg PO BID 10 days cholecalciferol (vitamin D3) 1,250 mcg PO QWEEK 3 months cholecalciferol (vitamin D3) 25 mcg PO DAILY clotrimazole 1% (Athlete's Foot (clotrimazole)) 1 appl topical BID 4 weeks flash glucose scanning reader (Executive CaddieStyle Tabatha 2 Durand) As directed flash glucose sensor (FreeStyle Tabatha 2 Sensor kit) APPLY 1 SENSOR TOPICALLY AND LEAVE IN PLACE FOR 14 DAYS TO MONITOR BLOOD GLUCOSE DIRECTED BY THE DOCTOR. CHANGE SENSOR EVERY 14 DAYS insulin lispro (Humalog Tempo Pen (U-100) Insulin) 15 units (0.15 mL) subcut TID insulin NPH isoph U-100 human (Novolin N FlexPen) 26 units (0.26 mL) subcut BID 30 days insulin syringe-needle U-100 (BD Veo Insulin Syringe Ultra-Fine) As directed twice a day lancets (FreeStyle Lancets) As directed losartan 25 mg PO DAILY nystatin (Nystop) 1 appl topical BID PRN pen needle, diabetic (BD Ultra-Fine Short Pen Needle) USE 4 times a day Saccharomyces boulardii (Digest Probiotic (S.boulardii)) PO PRN [scale-accommodate weight 300 lbs As directed] spironolactone 25 mg PO DAILY 90 days warfarin See Protocol Warfarin 2.5mg tablet, 1 to 2 tablets daily as directed [wheelchair As directed] Nursing Note INR: 1.8 out of therapeutic range of 2-3 Medications and supplements reviewed Patient status: no changes Medications or supplements: no changes Diet: usual diet for pt Denies any signs and symptoms of bleeding or clotting or unusual bruising Bleeding, bruising, clotting discussed Nutritional guidance given: to avoid greens today Dose: increase today's dose to 7.5mg (from 5mg) then 5mg X 6 days and 7.5mg X 1day F/U INR Date: 03/21/25?? Patient verbalizing understanding of instructions given. 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 ) Psych. 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
== END 2025-02-21 14:15 | disposition home or self-care (01) ==
LOC: HO.ACS 13:54
PROVIDERS: PCP Internal Medicine; Visit Provider Internal Medicine Medical Oncology
DX: Z79.01 Long term (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 of anticoagulants (principal)

== ENCOUNTER → 2025-02-21 13:54 | Outpatient (BNVA) | payer MEDICARE, SELFPAY | PROVIDERS: PCP Internal Medicine; Visit Provider Internal Medicine Medical Oncology | DX: I48.0 Paroxysmal atrial fibrillation (principal); Z51.81 Encounter for therapeutic drug level monitoring; Z79.01 Long term (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 of anticoagulants | CPT/HCPCS: 85610; 99211 ==

== ENCOUNTER → 2025-02-23 10:08 | Outpatient (BNV) | payer MEDICARE, SELFPAY | PROVIDERS: PCP Internal Medicine; Visit Provider Internal Medicine Cardiovascular Disease | DX: I50.9 Heart failure, unspecified (principal); Z95.810 Presence of automatic (implantable) cardiac defibrillator | CPT/HCPCS: 93297 ==